=== PATIENT | female | born 1930 | race Caucasian/White ===

== ENCOUNTER → 2017-05-15 | Outpatient (CLI) | payer MEDICARE, BC ==
[2017-05-15 10:41] LABS: CH 30.2; CHCM 32.8; HCT 36.2 % (34.0-46.0); HGB 12.3 gm/dL (11.4-16.0); MCH 31.4 pg (25.0-35.0); MCV 92.3 fL (80.0-100.0); RBC 3.93 m/uL (3.80-5.40); RDW 13.3 % (11.5-15.5); WBC 10.3 k/uL (3.8-10.6)
[2017-05-15 10:52] LABS: Calcium 8.8 mg/dL (8.4-10.2); Phosphorous 3.9 mg/dL (2.5-4.5); Total Bilirubin 1.1 mg/dL (0.2-1.3)
== END | disposition home or self-care (01) ==
LOC: LABWHC1 08:49
PROVIDERS: ATTEND Internal Medicine Nephrology
DX: N17.9 Acute kidney failure, unspecified (principal)
CPT/HCPCS: 36415; 80053; 84100; 85027

== ENCOUNTER 2017-05-25 14:43 | Emergency (ER) | payer MEDICARE, BC ==
[2017-05-25] MEDS ORDERED: SODIUM CHLORIDE 0.9% 500 ML IV ONE (15:17)
[2017-05-25] MEDS ORDERED: MORPHINE SULFATE 10 MG/ML SYRINGE IV ONE (15:17)
--- NOTE | 2017-05-25 15:30 | ED ---
Back Pain HPI - General Chief Complaint: Back Pain/Injury Stated Complaint: Abd pain Time Seen by Provider: 05/25/17 14:57 Source: patient Mode of arrival: wheelchair Limitations: no limitations - History of Present Illness Initial Comments: Patient is an 87-year-old female presents with a chief complaint of left-sided back pain. Patient presents with her daughter who is her primary paranormal investigator currently. States that she recently got out of [facility] where she was for 3 weeks with renal failure. Patient states that the pain has been getting worse over the last 2 days, and that now she is having trouble walking. She says the pain is aggravated by standing and bending, twisting, or walking. Her pain is relieved with rest. Patient's family are concerned for kidney infection as this was a presenting symptom the last time she was admitted to the hospital. The patient lives with her daughter who takes care of her full-time. MD Complaint: back pain Onset/Timin -: days(s) Similar Symptoms Previously: Yes Place: home Radiation: none Severity: moderate Quality: aching Consistency: constant Improves With: immobilization Worsens With: movement, walking Context: unknown Associated Symptoms: denies other symptoms Treatments Prior to Arrival: cold therapy, heat therapy, acetaminophen - Related Data Home Medications Medication Instructions Recorded Confirmed Metoprolol Tartrate [Lopressor] 100 mg PO BID 12/18/15 05/25/17 amLODIPine BESYLATE/BENAZEPRIL 1 cap PO DAILY 12/18/15 05/25/17 [amLODIPine BESYLATE/BENAZEPRIL 5-20 mg] metFORMIN HCL [Glucophage] 500 mg PO BID 12/18/15 05/25/17 sitaGLIPtin PHOSPHATE [Januvia] 100 mg PO DAILY 12/18/15 05/25/17 Menthol [Icy Hot] 1 patch TRANSDERM DAILY PRN 05/25/17 05/25/17 Tylenol 325mg Capsule 325 mg PO Q6H PRN 05/25/17 05/25/17 Allergies Allergy/AdvReac Type Severity Reaction Status Date / Time naproxen sodium [From Aleve] Allergy Itching,bessie Verified 05/25/17 15:54 h Review of Systems ROS Statement: Those systems with pertinent positive or pertinent negative responses have been documented in the HPI. ROS Other: All systems not noted in ROS Statement are negative. Musculoskeletal: Reports: back pain Past Medical History Past Medical History: CVA/TIA, Diabetes Mellitus, Hyperlipidemia, Hypertension History of Any Multi-Drug Resistant Organisms: None Reported Past Surgical History: Appendectomy, Back Surgery, Cholecystectomy Additional Past Surgical History / Comment(s): neck surgery Past Psychological History: Depression Smoking Status: Former smoker Past Alcohol Use History: None Reported Past Drug Use History: None Reported General Exam Limitations: no limitations General appearance: alert, in no apparent distress Head exam: Present: atraumatic, normocephalic Eye exam: Present: normal appearance ENT exam: Present: mucous membranes moist Neck exam: Present: normal inspection Respiratory exam: Present: decreased breath sounds (Patient has decreased breath sounds bilaterally) Cardiovascular Exam: Present: regular rate, normal rhythm GI/Abdominal exam: Present: soft Rectal exam: Present: deferred Extremities exam: Present: normal inspection (There are no asymmetries noted in the patient's lower extremities) Back exam: Present: tenderness, paraspinal tenderness, other (Patient has tenderness to palpation of the musculature to the left of her spine. She does not have significant tenderness to percussion of the flank. There is no midline spinal tenderness.) Neurological exam: Present: alert, oriented X3 Psychiatric exam: Present: normal affect, normal mood Skin exam: Present: warm, dry, intact Course Vital Signs 05/25/17 05/25/17 05/25/17 14:45 15:49 16:48 Temperature 98.7 F 100.2 F H 100.6 F H Pulse Rate 81 76 75 Respiratory 16 19 18 Rate Blood Pressure 145/89 171/70 166/70 O2 Sat by Pulse 94 L 93 L 93 L Oximetry Medical Decision Making - Medical Decision Making 3:31 PM patient with a significant medical history of chronic renal failure, recently discharged from [facility], presents with a chief complaint of left-sided back pain for 3 days. On initial presentation, vital signs are stable. Patient is in no acute distress. Examination of patient is suggestive of musculoskeletal type pain however given patient's recent history I will attempt to obtain her most recent labs from her last hospital, I will send basic blood work, and get a urinalysis. We'll decide on the need for further imaging pending results of lab and urine. 5:57 PM Lab evaluation of this patient is grossly unremarkable. Creatinine has improved to 1.03 from 1.75. Electrolytes appear to be within normal limits. Urinalysis is showing mild evidence of a urinary tract infection and given the patient's symptoms the patient will be treated with Macrobid on an outpatient basis. Old CAT scan results were reviewed from [facility]. CAT scan obtained at that time was showing evidence of left-sided colitis. Given the location of the patient's pain, and recent hospitalization, the patient will go for CT renal stone today. Results of the CT show mild bladder wall thickening, and mild dilation of the common bile duct along with evidence of old cholecystectomy. Given the findings of the CAT scan, we will proceed with treatment of the urinary tract infection. I discussed the bile duct findings with the patient and her daughter. Patient states she is not having any right upper quadrant pain and that her bowel movements have been normal. Shared decision-making was used to decide the patient will go home with explicit instructions to return to the emergency department the patient develops worsening fever, right upper quadrant pain, nausea, vomiting, diarrhea, or any other symptoms. The patient is instructed further to follow-up with primary care for which they have an appointment already set on . - Lab Data Result diagrams: 05/25/17 15:24 05/25/17 15:24 Lab Results 05/25/17 05/25/17 05/25/17 Range/Units 15:24 15:24 15:28 WBC 7.6 (3.8-10.6) k/uL RBC 4.12 (3.80-5.40) m/uL Hgb 12.9 (11.4-16.0) gm/dL Hct 35.5 (34.0-46.0) % MCV 86.3 D (80.0-100.0) fL MCH 31.4 (25.0-35.0) pg MCHC 36.4 (31.0-37.0) g/dL RDW 13.5 (11.5-15.5) % Plt Count 345 (150-450) k/uL Neutrophils % 61 % Lymphocytes % 27 % Monocytes % 6 % Eosinophils % 4 % Basophils % 1 % Neutrophils # 4.6 (1.3-7.7) k/uL Lymphocytes # 2.1 (1.0-4.8) k/uL Monocytes # 0.4 (0-1.0) k/uL Eosinophils # 0.3 (0-0.7) k/uL Basophils # 0.0 (0-0.2) k/uL Sodium 142 (137-145) mmol/L Potassium 3.4 L (3.5-5.1) mmol/L Chloride 106 (98-107) mmol/L Carbon Dioxide 23 (22-30) mmol/L Anion Gap 13 mmol/L BUN 19 H (7-17) mg/dL Creatinine 1.03 (0.52-1.04) mg/dL Est GFR (MDRD) Af Amer >60 (>60 ml/min/1.73 sqM) Est GFR (MDRD) Non-Af 51 (>60 ml/min/1.73 sqM) Glucose 190 H (74-99) mg/dL Calcium 9.1 (8.4-10.2) mg/dL Urine Color Yellow Urine Appearance Cloudy H (Clear) Urine pH 5.5 (5.0-8.0) Ur Specific [place] 1.016 (1.001-1.035) Urine Protein 1+ H (Negative) Urine Glucose (UA) Negative (Negative) Urine Ketones Negative (Negative) Urine Blood Negative (Negative) Urine Nitrite Negative (Negative) Urine Bilirubin Negative (Negative) Urine Urobilinogen <2.0 (<2.0) mg/dL Ur Leukocyte Esterase Large H (Negative) Urine RBC 3 (0-5) /hpf Urine WBC 12 H (0-5) /hpf Ur Squamous Epith Cells 6 H (0-4) /hpf Urine Bacteria Rare H (None) /hpf Hyaline Casts 8 H (0-2) /lpf Urine Mucus Rare H (None) /hpf Disposition Clinical Impression: Low back pain, Urinary tract infection, Common bile duct dilation Disposition: HOME SELF-CARE Condition: Good Instructions: Acute Low Back Pain (ED), Urinary Tract Infection in Women (ED) Referrals: Yee Sales MD [Primary Care Provider] - 1-2 days
[2017-05-25 15:37] LABS: Basophils % (A) 1 %; CH 30.4; CHCM 35.4; Eosinophils # (A) 0.3 k/uL (0-0.7); Eosinophils % (A) 4 %; HCT 35.5 % (34.0-46.0); HDW 2.93; HGB 12.9 gm/dL (11.4-16.0); Luc % (Auto) 3; Lymphocytes # (A) 2.1 k/uL (1.0-4.8); Lymphocytes % (A) 27 %; MCH 31.4 pg (25.0-35.0); MCHC 36.4 g/dL (31.0-37.0); Mean Platelet Volume 6.7; Monocytes # (A) 0.4 k/uL (0-1.0); Monocytes % (A) 6 %; Neutrophils # (A) 4.6 k/uL (1.3-7.7); Neutrophils % (A) 61 %; RBC 4.12 m/uL (3.80-5.40); RDW 13.5 % (11.5-15.5); WBC 7.6 k/uL (3.8-10.6); WBC (Perox) 7.01
[2017-05-25 15:39] LABS: Appearance,Urine Cloudy (Clear); Bacteria,Urine Rare /hpf; Bilirubin,Urine Negative (Negative); Glucose,Urine (UA) Negative (Negative); Ketones,Urine Negative (Negative); Leukocyte Esterase,Urine Large (Negative); Mucus,Urine Rare /hpf; Nitrite,Urine Negative (Negative); PH, Urine 5.5 (5.0-8.0); Particle Count 10988; Protein,Urine 1+ (Negative); RBC,Urine 3 /hpf (0-5); Specific Gravity,Urine 1.016 (1.001-1.035); Squamous Epithelial Cell,Urine 6 /hpf (0-4); UA Billing (MACRO vs. MICRO) MICRO; Urobilinogen,Urine <2.0 mg/dL (<2.0); WBC,Urine 12 /hpf (0-5)
[2017-05-25 15:42] LABS: MCV 86.3 fL (80.0-100.0)
[2017-05-25 15:52] LABS: Anion Gap 13 mmol/L; Blood Urea Nitrogen 19 mg/dL (7-17); Calcium 9.1 mg/dL (8.4-10.2); Carbon Dioxide 23 mmol/L (22-30); Chloride 106 mmol/L (98-107); Glucose 190 mg/dL (74-99); Non-African American GFR(MDRD) 51 (>60 ml/min/1.73 sqM); Potassium 3.4 mmol/L (3.5-5.1); Sodium 142 mmol/L (137-145)
[2017-05-25 16:49] VITALS: PULSE 75; RESP 18
--- NOTE | 2017-05-25 17:39 | CT ---
EXAMINATION TYPE: CT renal stones wo con DATE OF EXAM: 05/25/2017 HISTORY: Patient complains of recent kidney infections. CT DLP: 728.7 mGycm. Automated Exposure Control for Dose Reduction was Utilized. TECHNIQUE: CT scan of the abdomen and pelvis is performed without oral or IV contrast. COMPARISON: NONE FINDINGS: Within the limitations of a non-contrast study, the following observations are made. LUNG BASES: Minimal dependent atelectatic changes are present bilaterally, coronary artery calcificat ion noted LIVER/GB: Gallbladder is absent. Some prominence of the biliary ducts likely due to postcholecystecto my change. At the level of the distal common bile duct there is a focus of increased density on axial image 59 the level of the pancreatic head measuring approximately 7 to 8 mm. Difficult to exclude ch oledocholithiasis. There are dense aortic calcifications, mesenteric calcifications present. PANCREAS: Findings in the distal common bile duct as described above. SPLEEN: No significant abnormality is seen. ADRENALS: No significant abnormality is seen. KIDNEYS: No significant abnormality is seen. BOWEL: Extensive diverticular change present within the colon. No evident appendicitis. Suspect there may be a sizable duodenal diverticulum at the second portion of the duodenum. GENITAL ORGANS: No gross abnormality seen. Urinary bladder shows a thickened wall. LYMPH NODES: No greater than 1cm abdominal or pelvic lymph nodes are appreciated. OSSEOUS STRUCTURES: Scoliosis present in the spine, degenerative disc changes are marked at the infer ior lumbar spine, spacing device present at L4-5. OTHER: Anterior abdominal wall shows some increased attenuation foci which may be due to injections, no focal abscess IMPRESSION: No renal stones or hydronephrosis is seen bilaterally. IMPRESSION: Findings suspicious for choledocholithiasis, consider gastroenterology consult. Noncontra st exam. Diverticulosis. Correlate for possible cystitis. Additional findings above.
[2017-05-25 18:30] VITALS: BP 174/73; TEMP 100.1
== END 2017-05-25 18:40 | disposition home or self-care (01) ==
LOC: EC 14:43
DX: N39.0 Urinary tract infection, site not specified (principal); K83.8 Other specified diseases of biliary tract; M54.5 Low back pain; R06.89 Other abnormalities of breathing; I10 Essential (primary) hypertension; E11.9 Type 2 diabetes mellitus without complications; Z87.891 Personal history of nicotine dependence; Z79.84 Long term (current) use of oral hypoglycemic drugs; Z79.899 Other long term (current) drug therapy; Z88.6 Allergy status to analgesic agent; Z90.49 Acquired absence of other specified parts of digestive tract; Z98.890 Other specified postprocedural states
CPT/HCPCS: 36415; 80048; 85025; 81001; 87086; 74150; 99284; 96374; 96361 ×3; J2270

== ENCOUNTER 2017-11-17 19:25 | Inpatient (IN) | payer MEDICARE, BC ==
[2017-11-17] MEDS ORDERED: ACETAMINOPHEN TAB 500 MG TAB PO STA (19:59)
--- NOTE | 2017-11-17 20:03 | ED ---
General Adult HPI - General Chief complaint: Chest Pain Stated complaint: Chest Pain Time Seen by Provider: 11/17/17 19:56 Source: patient, family, RN notes reviewed Mode of arrival: wheelchair Limitations: no limitations - History of Present Illness Initial comments: Patient is a pleasant 87-year-old female presenting to the emergency department with chest discomfort. Onset of symptoms was a couple of hours ago. Discomfort is left sided. Patient feels like her lungs hurt her there something in there. Family is concerned regarding the heart. There is some radiation towards the back. Patient has fatigue and chills. They're unaware of fever. Patient has had mild cough and rhinorrhea recently. Rhinorrhea has been clear. - Related Data Home Medications Medication Instructions Recorded Confirmed metFORMIN HCL [Glucophage] 500 mg PO BID 12/18/15 11/17/17 sitaGLIPtin PHOSPHATE [Januvia] 100 mg PO DAILY 12/18/15 11/17/17 Menthol [Icy Hot] 1 patch TRANSDERM DAILY PRN 05/25/17 11/17/17 Atorvastatin [Lipitor] 10 mg PO DAILY 11/17/17 11/17/17 Furosemide [Lasix] 20 mg PO DAILY 11/17/17 11/17/17 Loperamide [Imodium] 4 mg PO QID PRN 11/17/17 11/17/17 Potassium Chloride ER [K-Dur 10] 10 meq PO DAILY 11/17/17 11/17/17 amLODIPine [Norvasc] 10 mg PO DAILY 11/17/17 11/17/17 hydrALAZINE HCL [Apresoline] 50 mg PO DAILY 11/17/17 11/17/17 Allergies Allergy/AdvReac Type Severity Reaction Status Date / Time acetaminophen [From [place]] Allergy Rash/Hives Verified 11/17/17 20:07 hydrocodone [From [place]] Allergy Rash/Hives Verified 11/17/17 20:07 naproxen sodium [From Aleve] Allergy Itching,bessie Verified 11/17/17 20:07 h Review of Systems ROS Statement: Those systems with pertinent positive or pertinent negative responses have been documented in the HPI. ROS Other: All systems not noted in ROS Statement are negative. Constitutional: Reports: chills Eyes: Denies: eye pain ENT: Denies: ear pain Respiratory: Reports: cough Cardiovascular: Reports: chest pain Endocrine: Reports: fatigue Gastrointestinal: Denies: abdominal pain Genitourinary: Denies: dysuria Musculoskeletal: Denies: arthralgia Skin: Denies: rash Neurological: Denies: confusion Past Medical History Past Medical History: CVA/TIA, Diabetes Mellitus, Hyperlipidemia, Hypertension History of Any Multi-Drug Resistant Organisms: None Reported Past Surgical History: Appendectomy, Back Surgery, Cholecystectomy Additional Past Surgical History / Comment(s): neck surgery Past Psychological History: Depression Smoking Status: Former smoker Past Alcohol Use History: None Reported Past Drug Use History: None Reported General Exam Limitations: no limitations General appearance: alert, in no apparent distress Head exam: Present: atraumatic Eye exam: Present: normal appearance, PERRL ENT exam: Present: normal oropharynx Neck exam: Present: normal inspection Respiratory exam: Present: rhonchi Cardiovascular Exam: Present: regular rate, normal rhythm GI/Abdominal exam: Present: soft. Absent: tenderness Extremities exam: Present: normal inspection. Absent: pedal edema, calf tenderness Neurological exam: Present: alert Psychiatric exam: Present: normal affect, normal mood Skin exam: Present: normal color Course Vital Signs 11/17/17 19:26 Temperature 100.9 F H Pulse Rate 74 Respiratory 20 Rate Blood Pressure 190/89 O2 Sat by Pulse 94 L Oximetry EKG Findings - EKG Comments: EKG Findings:: Normal sinus rhythm 63. DE 178. QRS 88. QT 398. QTC 407. Left axis. Septal Q waves. Lateral ST depression. Lateral T wave inversion. Medical Decision Making - Medical Decision Making Patient reexamined and resting comfortably in bed. Patient is somewhat improved. Patient and family updated on results and plan. Case was discussed in detail with Dr. Brown, who will admit for Dr. Sales. Heparin will be started. Echo will be ordered for concern for fever with elevated cardiac enzymes. - Lab Data Result diagrams: 11/17/17 19:58 11/17/17 19:58 Lab Results 11/17/17 11/17/17 11/17/17 Range/Units 19:58 19:58 19:58 WBC 9.0 (3.8-10.6) k/uL RBC 4.50 (3.80-5.40) m/uL Hgb 13.9 (11.4-16.0) gm/dL Hct 41.7 (34.0-46.0) % MCV 92.7 (80.0-100.0) fL MCH 30.9 (25.0-35.0) pg MCHC 33.3 (31.0-37.0) g/dL RDW 13.1 (11.5-15.5) % Plt Count 293 (150-450) k/uL Neutrophils % 65 % Lymphocytes % 26 % Monocytes % 6 % Eosinophils % 1 % Basophils % 1 % Neutrophils # 5.9 (1.3-7.7) k/uL Lymphocytes # 2.3 (1.0-4.8) k/uL Monocytes # 0.5 (0-1.0) k/uL Eosinophils # 0.1 (0-0.7) k/uL Basophils # 0.1 (0-0.2) k/uL PT (9.0-12.0) sec INR (<1.2) APTT (22.0-30.0) sec Sodium 135 L (137-145) mmol/L Potassium 4.4 (3.5-5.1) mmol/L Chloride 99 (98-107) mmol/L Carbon Dioxide 26 (22-30) mmol/L Anion Gap 10 mmol/L BUN 20 H (7-17) mg/dL Creatinine 0.80 (0.52-1.04) mg/dL Est GFR (MDRD) Af Amer >60 (>60 ml/min/1.73 sqM) Est GFR (MDRD) Non-Af >60 (>60 ml/min/1.73 sqM) Glucose 336 H (74-99) mg/dL Plasma Lactic Acid Maximus (0.7-2.0) mmol/L Calcium 9.7 (8.4-10.2) mg/dL Total Bilirubin 1.2 (0.2-1.3) mg/dL AST 23 (14-36) U/L ALT 31 (9-52) U/L Alkaline Phosphatase 102 (38-126) U/L Total Creatine Kinase 79 (30-135) U/L CK-MB (CK-2) 1.9 (0.0-2.4) ng/mL CK-MB (CK-2) Rel Index 2.4 Troponin I 1.960 H* (0.000-0.034) ng/mL Total Protein 5.9 L (6.3-8.2) g/dL Albumin 3.5 (3.5-5.0) g/dL Influenza Type A RNA (Not Detectd) Influenza Type B (PCR) (Not Detectd) 11/17/17 11/17/17 11/17/17 Range/Units 19:58 19:58 20:14 WBC (3.8-10.6) k/uL RBC (3.80-5.40) m/uL Hgb (11.4-16.0) gm/dL Hct (34.0-46.0) % MCV (80.0-100.0) fL MCH (25.0-35.0) pg MCHC (31.0-37.0) g/dL RDW (11.5-15.5) % Plt Count (150-450) k/uL Neutrophils % % Lymphocytes % % Monocytes % % Eosinophils % % Basophils % % Neutrophils # (1.3-7.7) k/uL Lymphocytes # (1.0-4.8) k/uL Monocytes # (0-1.0) k/uL Eosinophils # (0-0.7) k/uL Basophils # (0-0.2) k/uL PT 10.6 (9.0-12.0) sec INR 1.1 (<1.2) APTT 23.8 (22.0-30.0) sec Sodium (137-145) mmol/L Potassium (3.5-5.1) mmol/L Chloride (98-107) mmol/L Carbon Dioxide (22-30) mmol/L Anion Gap mmol/L BUN (7-17) mg/dL Creatinine (0.52-1.04) mg/dL Est GFR (MDRD) Af Amer (>60 ml/min/1.73 sqM) Est GFR (MDRD) Non-Af (>60 ml/min/1.73 sqM) Glucose (74-99) mg/dL Plasma Lactic Acid Maximus 1.9 (0.7-2.0) mmol/L Calcium (8.4-10.2) mg/dL Total Bilirubin (0.2-1.3) mg/dL AST (14-36) U/L ALT (9-52) U/L Alkaline Phosphatase (38-126) U/L Total Creatine Kinase (30-135) U/L CK-MB (CK-2) (0.0-2.4) ng/mL CK-MB (CK-2) Rel Index Troponin I (0.000-0.034) ng/mL Total Protein (6.3-8.2) g/dL Albumin (3.5-5.0) g/dL Influenza Type A RNA Not Detected (Not Detectd) Influenza Type B (PCR) Not Detected (Not Detectd) - Radiology Data Radiology results: image reviewed (Chest x-ray shows clearing of previous pulmonary congestion and effusion. Atheromatous aorta.) Critical Care Time Critical Care Time: Yes Total Critical Care Time: 31 Disposition Clinical Impression: NSTEMI (non-ST elevated myocardial infarction) Disposition: ADMITTED IP TO THIS HOSP Referrals: Yee Sales MD [Primary Care Provider] - 1-2 days Decision Time: 20:55
[2017-11-17 20:13] LABS: Basophils # (A) 0.1 k/uL (0-0.2); Basophils % (A) 1 %; Eosinophils # (A) 0.1 k/uL (0-0.7); Eosinophils % (A) 1 %; HCT 41.7 % (34.0-46.0); HGB 13.9 gm/dL (11.4-16.0); Lymphocytes # (A) 2.3 k/uL (1.0-4.8); Lymphocytes % (A) 26 %; MCH 30.9 pg (25.0-35.0); MCHC 33.3 g/dL (31.0-37.0); MCV 92.7 fL (80.0-100.0); Mean Platelet Volume 6.7; Monocytes # (A) 0.5 k/uL (0-1.0); Monocytes % (A) 6 %; Neutrophils # (A) 5.9 k/uL (1.3-7.7); Neutrophils % (A) 65 %; Platelet Count 293 k/uL (150-450); RDW 13.1 % (11.5-15.5)
[2017-11-17 20:21] LABS: ALT 31 U/L (9-52); AST 23 U/L (14-36); Albumin 3.5 g/dL (3.5-5.0); Alkaline Phosphatase 102 U/L (38-126); Anion Gap 10 mmol/L; Blood Urea Nitrogen 20 mg/dL (7-17); Calcium 9.7 mg/dL (8.4-10.2); Carbon Dioxide 26 mmol/L (22-30); Chloride 99 mmol/L (98-107); Glucose 336 mg/dL (74-99); Potassium 4.4 mmol/L (3.5-5.1); Sodium 135 mmol/L (137-145); Total Bilirubin 1.2 mg/dL (0.2-1.3); Total Protein 5.9 g/dL (6.3-8.2)
[2017-11-17 20:25] LABS: INR 1.1 (<1.2); Partial Thromboplastin Time 23.8 sec (22.0-30.0); Prothrombin Time 10.6 sec (9.0-12.0)
--- NOTE | 2017-11-17 20:42 | XR ---
EXAMINATION TYPE: XR chest 2V DATE OF EXAM: 11/17/2017 COMPARISON: NONE HISTORY: Fever TECHNIQUE: Frontal and lateral views of the chest are obtained. FINDINGS: There is no heart failure nor confluent pneumonic infiltrate. Thoracic aorta is atheromato us. There are chest leads. Cervical spine fusion surgery is noted. Bony thorax is intact. There is no sign of pleural effusion. IMPRESSION: Atheromatous aorta. There is clearing of the pulmonary congestion and pleural effusions compared to last exam.
[2017-11-17 20:46] LABS: Creatine Kinase MB 1.9 ng/mL (0.0-2.4)
[2017-11-17 20:49] LABS: Troponin I 1.96 ng/mL (0.000-0.034)
[2017-11-17] MEDS ORDERED: HEPARIN SODIUM,PORCINE 5,000 UNIT/ML 1 ML VIAL IV PRN (20:56)
[2017-11-17] MEDS ORDERED: HEPARIN SODIUM,PORCINE 5,000 UNIT/ML 1 ML VIAL IV ONE (20:56)
[2017-11-17] MEDS ORDERED: NITROGLYCERIN SL TABS 0.4 MG TAB SUBLINGUAL PRN (20:56)
[2017-11-17] MEDS ORDERED: ASPIRIN 81 MG PO STA (20:56)
[2017-11-17] MEDS: HEPARIN SOD,PORK IN 0.45% NACL 25,000 UNIT in 0.45% NACL 1 500ML.BAG IV SCH (21:20)
[2017-11-18] MEDS: NITROGLYCERIN OINT 1 INCH/GM PACKET TOPICAL SCH ×2 (00:25→06:10)
[2017-11-18 02:31] LABS: Troponin I 2.42 ng/mL (0.000-0.034)
[2017-11-18 04:55] LABS: Platelet Count 274 k/uL (150-450)
[2017-11-18 05:16] LABS: Cholesterol 128 mg/dL (<200); HDL Cholesterol 37 mg/dL (40-60); LDL Cholesterol,Calculated 41 mg/dL (0-99); Triglycerides 249 mg/dL (<150)
[2017-11-18] MEDS ORDERED: SODIUM CHLORIDE 0.9% 1,000 ML in EMPTY BAG 1 BAG IV ONE (08:51)
[2017-11-18] MEDS ORDERED: ALPRAZolam 0.5 MG TAB PO PRN (08:51)
[2017-11-18] MEDS ORDERED: ALPRAZolam 0.25 MG TAB PO PRN (08:51)
[2017-11-18] MEDS ORDERED: ASPIRIN 325 MG TAB PO STA (08:51)
[2017-11-18] MEDS ORDERED: NITROGLYCERIN SL TABS 0.4 MG TAB SUBLINGUAL PRN (08:51)
[2017-11-18] MEDS ORDERED: ATORVASTATIN 80 MG TAB PO STA (08:51)
--- NOTE | 2017-11-18 08:54 | P.CRDCN ---
History of Present Illness Consult date: 11/18/17 Requesting physician: Audra Gonzalez Consult reason: non-Q-wave [place] Chief complaint: Chest pain History of present illness: This is a pleasant 87-year-old female with history of hypertension, hyperlipidemia, diabetes, nonsmoker, she presents to the hospital with symptoms of chest pressure with radiation through to her back. Positive associated shortness of breath. Apparently the patient has been having symptoms which she thought was heartburn for the past couple days off and on. Yesterday patient states her chest became very tight and heavy, she felt significant discomfort between her shoulder blades and was quite short of breath. She has a caregiver at the house while her daughter is at work, they contacted the daughter, and she brought the patient into the emergency room for further evaluation. EKG performed on admission here showed a normal sinus rhythm with ST-T wave changes in the lateral leads. Chest x-ray revealed clearing of pulmonary congestion and pleural effusion as compared with prior exam. Blood pressure on admission here 190/80, heart rate in the 70s, temperature 100. The pressure this morning 179/70, heart rate in the 50s and 60s, temperature 99.1, she is 93% on room air. Labratory data was reviewed, CBC is normal, sodium 135, potassium 4.4, BUN 20, creatinine 0.8. Initial troponin on admission 1.9, subsequent troponin 2.4. Cholesterol 128, LDL 41, HDL 37, triglycerides 249. Influenza A and B-. Patient was initiated on IV heparin in the emergency room, she is also on aspirin and Nitropaste. We will give the patient 80 mg of Lipitor now, she's also been initiated on beta giselle, we will start the patient on an CRISTIANO inhibitor as well. We did have a discussion with the daughter and the patient regarding proceeding with any invasive procedures, cardiac catheterization risks and benefits were explained in detail, patient is willing to proceed. Past Medical History Past Medical History: CVA/TIA, Diabetes Mellitus, Hyperlipidemia, Hypertension, Renal Disease Additional Past Medical History / Comment(s): Pt reports that in May of 2017 she was diagnosed with renal failure History of Any Multi-Drug Resistant Organisms: None Reported Past Surgical History: Appendectomy, Back Surgery, Cholecystectomy Additional Past Surgical History / Comment(s): neck surgery. wrist surgery approx 2014 Past Psychological History: Depression Smoking Status: Never smoker Past Alcohol Use History: None Reported Past Drug Use History: None Reported Medications and Allergies Home Medications Medication Instructions Recorded Confirmed Type metFORMIN HCL [Glucophage] 500 mg PO BID 12/18/15 11/17/17 History sitaGLIPtin PHOSPHATE [Januvia] 100 mg PO DAILY 12/18/15 11/17/17 History Menthol [Icy Hot] 1 patch TRANSDERM DAILY PRN 05/25/17 11/17/17 History Atorvastatin [Lipitor] 10 mg PO DAILY 11/17/17 11/17/17 History Furosemide [Lasix] 20 mg PO DAILY 11/17/17 11/17/17 History Loperamide [Imodium] 4 mg PO QID PRN 11/17/17 11/17/17 History Potassium Chloride ER [K-Dur 10] 10 meq PO DAILY 11/17/17 11/17/17 History amLODIPine [Norvasc] 10 mg PO DAILY 11/17/17 11/17/17 History hydrALAZINE HCL [Apresoline] 50 mg PO DAILY 11/17/17 11/17/17 History Allergies Allergy/AdvReac Type Severity Reaction Status Date / Time acetaminophen [From [place]] Allergy Rash/Hives Verified 11/17/17 20:07 hydrocodone [From [place]] Allergy Rash/Hives Verified 11/17/17 20:07 naproxen sodium [From [place]] Allergy Itching,bessie Verified 11/17/17 20:07 h Physical Exam Vitals: Vital Signs Temp Pulse Pulse Resp BP BP Pulse Ox 11/18/17 06:10 60 12 179/73 93 L 11/17/17 22:15 99.1 F 58 L 12 166/69 92 L 11/17/17 21:45 131/60 11/17/17 21:21 100.2 F H 67 18 163/99 98 11/17/17 20:56 96 11/17/17 19:26 100.9 F H 74 20 190/89 94 L Intake and Output 11/17/17 11/18/17 11/18/17 22:59 06:59 14:59 Intake Total 164.033 Output Total 500 Balance -335.967 Intake: Intake, IV Titration 164.033 Amount Heparin Sod,Pork in 0.45% 164.033 NaCl 25,000 unit In 0.45 % NaCl 1 500ml.bag @ 12 UNITS/KG/HR 18.5 mls/hr IV .Q24H [facility] Rx#: [id number] Output: Urine 500 Other: Weight 74.389 kg 79.2 kg PHYSICAL EXAMINATION: HEENT: Head is atraumatic, normocephalic. Pupils equal, round. Neck is supple. There is no elevated jugular venous pressure. HEART EXAMINATION: Heart S1 and S2 systolic murmur is heard. CHEST EXAMINATION: Lungs are clear to auscultation and precussion. No chest wall tenderness is noted on palpation or with deep breathing. ABDOMEN: Soft, nontender. Bowel sounds are heard. No organomegaly noted. EXTREMITIES: 2+ peripheral pulses with no evidence of peripheral edema and no calf tenderness noted. NEUROLOGIC patient is awake, alert and oriented -3. . Results 11/18/17 04:31 11/17/17 19:58 Cardiac Enzymes 11/17/17 11/17/17 11/18/17 Range/Units 19:58 19:58 01:25 AST 23 (14-36) U/L CK-MB (CK-2) 1.9 2.0 (0.0-2.4) ng/mL Troponin I 1.960 H* 2.420 H* (0.000-0.034) ng/mL Coagulation 11/17/17 11/18/17 Range/Units 19:58 04:31 PT 10.6 (9.0-12.0) sec APTT 23.8 37.0 H (22.0-30.0) sec Lipids 11/18/17 Range/Units 04:31 Triglycerides 249 H (<150) mg/dL Cholesterol 128 (<200) mg/dL HDL Cholesterol 37 L (40-60) mg/dL CBC 11/17/17 11/18/17 Range/Units 19:58 04:31 WBC 9.0 (3.8-10.6) k/uL RBC 4.50 (3.80-5.40) m/uL Hgb 13.9 (11.4-16.0) gm/dL Hct 41.7 (34.0-46.0) % Plt Count 293 274 (150-450) k/uL Comprehensive Metabolic Panel 11/17/17 Range/Units 19:58 Sodium 135 L (137-145) mmol/L Potassium 4.4 (3.5-5.1) mmol/L Chloride 99 (98-107) mmol/L Carbon Dioxide 26 (22-30) mmol/L BUN 20 H (7-17) mg/dL Creatinine 0.80 (0.52-1.04) mg/dL Glucose 336 H (74-99) mg/dL Calcium 9.7 (8.4-10.2) mg/dL AST 23 (14-36) U/L ALT 31 (9-52) U/L Alkaline Phosphatase 102 (38-126) U/L Total Protein 5.9 L (6.3-8.2) g/dL Albumin 3.5 (3.5-5.0) g/dL Current Medications Generic Name Dose Route Start Last Admin Trade Name Freq PRN Reason Stop Dose Admin Aspirin 325 mg 11/18/17 09:00 Aspirin PO DAILY [facility] Heparin Sodium (Porcine) 0 unit 11/17/17 20:56 Heparin IV Q6HR PRN Low PTT Protocol Heparin Sodium/Sodium Chloride 500 mls @ 18.5 mls/hr 11/17/17 21:00 11/18/17 06:12 25,000 unit/ Sodium Chloride IV 15 units/kg/hr .Q24H [facility] 23.13 mls/hr Protocol Titration 12 UNITS/KG/HR Metoprolol Succinate 25 mg 11/18/17 09:00 Toprol Xl PO DAILY [facility] Nitroglycerin 1 inch 11/18/17 00:00 11/18/17 06:10 Nitro-Bid Oint TOPICAL 1 inch Q6HR [facility] Administration Nitroglycerin 0.4 mg 11/17/17 20:56 11/17/17 21:13 Nitrostat SUBLINGUAL 0.4 mg Q5M PRN Administration Chest Pain Intake and Output 11/17/17 11/18/17 11/18/17 22:59 06:59 14:59 Intake Total 164.033 Output Total 500 Balance -335.967 Intake: Intake, IV Titration 164.033 Amount Heparin Sod,Pork in 0.45% 164.033 NaCl 25,000 unit In 0.45 % NaCl 1 500ml.bag @ 12 UNITS/KG/HR 18.5 mls/hr IV .Q24H [facility] Rx#: [id number] Output: Urine 500 Other: Weight 74.389 kg 79.2 kg 11/18/17 04:31 11/17/17 19:58 EKG Interpretations (text) EKG shows a normal sinus rhythm with ST-T wave changes in the lateral leads. Assessment and Plan Plan: Assessment and plan #1 non-ST elevation myocardial infarction #2 diabetes #3 hypertension #4 hyperlipidemia Plan We will obtain a stat echocardiogram with Doppler study. We will give the patient 80 mg of Lipitor now, aspirin, Toprol-XL, had an CRISTIANO inhibitor to her medication regime. Patient has been advised to undergo cardiac catheterization , the risks and the benefits were explained to the patient and her daughter in detail and she is willing to proceed. This will be performed urgently by Dr. Jo. Further recommendations will be based on these findings and the patient' s clinical course. DNP note has been reviewed, I agree with a documented findings and plan of care. Patient was seen and examined.
[2017-11-18] MEDS: METOPROLOL SUCCINATE (ER) 25 MG TAB.ER.24H PO SCH (09:00)
[2017-11-18] MEDS: ASPIRIN 325 MG TAB PO SCH (09:04)
[2017-11-18] MEDS ORDERED: MIDAZOLAM 2 MG/2 ML VIAL ONE (09:04)
[2017-11-18] MEDS ORDERED: LIDOCAINE 2% INJ 20 MG/ML (20 ML MDV) ONE (09:04)
[2017-11-18] MEDS ORDERED: diphenhydrAMINE 50 MG/ML 1 ML VIAL ONE (09:05)
[2017-11-18] MEDS ORDERED: VERAPAMIL 2.5 MG/ML 2 ML AMP ONE (09:05)
[2017-11-18] MEDS ORDERED: HEPARIN SODIUM 1,000 UN/ML (10ML VL) ONE (09:05)
[2017-11-18] MEDS ORDERED: IV FLUID CONTINUATION 1,000 ML IV ONE (09:27)
[2017-11-18] MEDS: MIDAZOLAM 2 MG/2 ML VIAL IV ONE ×2 (09:29→09:42)
[2017-11-18 09:30] LABS: Creatine Kinase MB 1.9 ng/mL (0.0-2.4)
[2017-11-18 09:31] LABS: Appearance,Urine Turbid (Clear); Bilirubin,Urine Negative (Negative); Blood,Urine Small (Negative); Color,Urine Yellow; Glucose,Urine (UA) Negative (Negative); Ketones,Urine Negative (Negative); Leukocyte Esterase,Urine Large (Negative); Nitrite,Urine Negative (Negative); PH, Urine 5.5 (5.0-8.0); Protein,Urine 1+ (Negative); Specific Gravity,Urine 1.012 (1.001-1.035); Urobilinogen,Urine <2.0 mg/dL (<2.0)
[2017-11-18 09:32] LABS: Bacteria,Urine Many /hpf; RBC,Urine 23 /hpf (0-5); Squamous Epithelial Cell,Urine 3 /hpf (0-4); WBC,Urine >182 /hpf (0-5)
[2017-11-18 09:34] LABS: Troponin I 2.65 ng/mL (0.000-0.034)
[2017-11-18] MEDS ORDERED: LIDOCAINE 2% INJ 20 MG/ML SQ ONE (09:35)
[2017-11-18] MEDS: VERAPAMIL SYRINGE (5 MG/10 ML) INTRAARTER ONE ×2 (09:37→09:49)
[2017-11-18] MEDS ORDERED: IOHEXOL 350 MG/ML 125ML BOTTLE INJ ONE (09:49)
[2017-11-18] MEDS ORDERED: RX INFO: IV CONTRAST WAS GIVEN 1 EACH MISC MISCELLANE PRN (09:55)
[2017-11-18] MEDS ORDERED: SODIUM CHLORIDE 0.9% 1,000 ML IV SCH (10:00)
--- NOTE | 2017-11-18 10:30 | CC ---
CARDIAC CATHETERIZATION REPORT DATE OF SERVICE: 11/18/2017 PERFORMING PHYSICIAN: Dean Otto MD, [employer]. PROCEDURE PERFORMED: Selective right and left coronary angiogram. INDICATION: This is a pleasant 87-year-old female patient who presented to the hospital with chest discomfort and ruled in for acute non-ST elevation myocardial infarction. A heart catheterization was recommended in view of the ongoing chest discomfort as well as abnormal EKG consistent with ischemic changes in the lateral lead as well as abnormal cardiac enzymes. APPROACH: Right radial artery. COMPLICATION: None. LEVEL OF SEDATION: Moderate with sedation length of 15 minutes. PROCEDURE DESCRIPTION: After obtaining an informed consent, the patient was brought to cardiac laborer filter plant. The right radial artery was cannulated using micropuncture technique, the micropuncture wire passed easily then I placed a 6-[place] sheath in the right radial artery. After that, I did selective right and left coronary angiogram using JR4 and JL3.5 catheters. After that, the procedure was completed without any complication. SELECTIVE CORONARY ANGIOGRAM: 1. The right coronary artery is a large caliber vessel and it is a dominant vessel. The proximal RCA has mild disease only. The mid RCA has mild disease only as well and RCA distally appears to be angiographically normal and bifurcates into PDA and PLV branches. The PLV branch has mild disease only and the PDA branch has ostial disease appeared to be in the range of 70%. 2. The left main is a medium size left main with mid shaft plaque appeared to be in the range of 30%. The left main bifurcates into the left circumflex and left anterior descending artery. 3. The left circumflex is a medium caliber vessel. The proximal left circumflex appeared to have mild disease only. The mid left circumflex by bifurcation of the first OM appeared to have lesion in the range of 70%. The left circumflex distally appeared to have mild disease only. 4. The left anterior descending artery, the proximal LAD is tortuous, but appeared to have mild disease only. It gives rise into the first diagonal branch, which is a medium caliber vessel with severe disease in the proximal portion. The mid LAD appeared to have a long tubular lesion in the range of 70% to 80%, but the LAD is only a small to medium caliber vessel and it is about 2 mm only. The LAD distally appeared to be angiographically normal. CONCLUSION: 1. Heavily calcified right and left coronary system. 2. Severe disease involving the PDA branch of the RCA by the ostium, but the PDA is a small caliber vessel. 3. Midshaft left main disease appeared to be in the range of 30%. 4. Severe disease involving the mid left circumflex, but the left circumflex is a small to medium caliber vessel. 5. Severe disease involving the mid LAD but the LAD is also a small to medium caliber vessel. POSTPROCEDURE MANAGEMENT: I would consider maximize medical treatment at this point of time. If the patient continues to have chest discomfort, I will consider proceeding with PCI of the LAD from right groin approach. MMODL / IJN: [id number] /
--- NOTE | 2017-11-18 10:36 | LTR ---
November 18, 2017 Re: Tracy Mcclain Dear Dr. Sales: Ms. Tracy Mcclain presented to [facility] with chest discomfort and ruled in for acute non ST . She underwent heart catheterization and that revealed critical disease involving a small to medium caliber LAD. Also she does have disease involving the left main coronary artery. I would consider to maximize medical treatment at this point of time. If the patient continues to have chest discomfort in spite of that, I will consider doing a PCI of the LAD. I want to thank you for allowing me to participate in her care and please do not hesitate to call if you have any question or concern. Sincerely, MD ZION Arciniega / ELIZABETHN: [id number] /
[2017-11-18] MEDS: ISOSORBIDE MONONITRATE ER 30 MG TAB.ER.24H PO SCH (11:17)
[2017-11-18] MEDS: LISINOPRIL 5 MG TAB PO SCH (11:17)
[2017-11-18 12:38] LABS: Glucose,Whole Blood 304 mg/dL (75-99)
[2017-11-18] MEDS: INSULIN ASPART 100 UNIT/ML 1 ML 10 ML VIAL SQ SCH ×3 (12:52→20:25)
--- NOTE | 2017-11-18 16:25 | P.HPIM ---
History of Present Illness H&P Date: 11/18/17 Chief Complaint: Chest pain This is 87 years old female with history of hypertension, hyperlipidemia, type 2 diabetes coming in with substernal chest pain radiating to her back associated with shortness of breath. She endorses heartburn for the past few days. She lives with a caregiver and her daughter who daughter to the emergency room. EKG done in the ER suggestive of significant ST-T wave changes in the lateral leads concerning for an GA. Chest x-ray suggested some pulmonary congestion and pleural effusion. Vitals in the ER includes a blood pressure 190/ 80, heart rate 73. Labs done the ER suggestive of unremarkable CBC and BMP. Initial troponin was 1.9 that increased to 2.4. Patient was initiated on IV heparin and was given a dose of aspirin and nitroglycerin state. She was taken for cardiac catheter this morning and was found to have critical disease involving small to medium caliber LAD with some disease involving the left main coronary artery. Patient to continue on medical treatment overnight. If chest pain persists,will proceed with PCI of the LAD Review of Systems Constitutional: Reports fatigue, Reports sweats, Denies chills, Denies fever, Denies poor appetite Eyes: denies blurred vision, denies diplopia Ears, nose, mouth and throat: Denies dysphagia, Denies headache, Denies odynophagia, Denies sinus pressure, Denies sore throat Cardiovascular: Reports chest pain, Reports decreased exercise tolerance, Reports edema, Reports high blood pressure, Denies irregular heart beat, Denies lightheadedness, Denies orthopnea Respiratory: Denies congestion, Denies cough, Denies home oxygen, Denies sleep apnea, Denies wheezing Gastrointestinal: Denies abdominal pain, Denies bloating, Denies change in bowel habits, Denies coffee ground emesis, Denies nausea, Denies vomiting Genitourinary: Denies dysuria, Denies incomplete emptying, Denies urinary frequency Musculoskeletal: Denies arm numbness/tingling, Denies muscle cramps, Denies neck stiffness Integumentary: Denies change in hair/nails, Denies rash, Denies sores Neurological: Denies aphasia, Denies paralysis, Denies paresthesias, Denies seizures, Denies vertigo Psychiatric: Denies anxiety attacks, Denies depression Endocrine: Denies cold intolerance, Denies fatigue, Denies low blood sugars Past Medical History Past Medical History: CVA/TIA, Diabetes Mellitus, Hyperlipidemia, Hypertension, Renal Disease Additional Past Medical History / Comment(s): Pt reports that in May of 2017 she was diagnosed with renal failure History of Any Multi-Drug Resistant Organisms: None Reported Past Surgical History: Appendectomy, Back Surgery, Cholecystectomy Additional Past Surgical History / Comment(s): neck surgery. wrist surgery approx 2014 Past Psychological History: Depression Smoking Status: Never smoker Past Alcohol Use History: None Reported Past Drug Use History: None Reported Medications and Allergies Home Medications Medication Instructions Recorded Confirmed Type metFORMIN HCL [Glucophage] 500 mg PO BID 12/18/15 11/17/17 History sitaGLIPtin PHOSPHATE [Januvia] 100 mg PO DAILY 12/18/15 11/17/17 History Menthol [Icy Hot] 1 patch TRANSDERM DAILY PRN 05/25/17 11/17/17 History Atorvastatin [Lipitor] 10 mg PO DAILY 11/17/17 11/17/17 History Furosemide [Lasix] 20 mg PO DAILY 11/17/17 11/17/17 History Loperamide [Imodium] 4 mg PO QID PRN 11/17/17 11/17/17 History Potassium Chloride ER [K-Dur 10] 10 meq PO DAILY 11/17/17 11/17/17 History amLODIPine [Norvasc] 10 mg PO DAILY 11/17/17 11/17/17 History hydrALAZINE HCL [Apresoline] 50 mg PO DAILY 11/17/17 11/17/17 History Allergies Allergy/AdvReac Type Severity Reaction Status Date / Time acetaminophen [From [place]] Allergy Rash/Hives Verified 11/17/17 20:07 hydrocodone [From [place]] Allergy Rash/Hives Verified 11/17/17 20:07 naproxen sodium [From [place]] Allergy Itching,bessie Verified 11/17/17 20:07 h Physical Exam Vitals: Vital Signs Temp Pulse Pulse Pulse Resp BP BP 11/18/17 15:33 98.2 F 65 18 119/51 11/18/17 13:40 68 18 170/60 11/18/17 12:40 68 18 170/60 11/18/17 12:00 18 11/18/17 11:40 69 18 143/77 11/18/17 11:10 71 18 159/70 11/18/17 10:40 63 18 156/63 11/18/17 10:25 67 18 174/69 11/18/17 10:10 63 16 139/60 11/18/17 09:55 65 18 152/67 11/18/17 08:00 99.1 F 75 18 179/75 11/18/17 06:10 60 12 179/73 11/17/17 22:15 99.1 F 58 L 12 166/69 11/17/17 21:45 131/60 11/17/17 21:21 100.2 F H 67 18 163/99 11/17/17 20:56 11/17/17 19:26 100.9 F H 74 20 190/89 Pulse Ox 11/18/17 15:33 95 11/18/17 13:40 95 11/18/17 12:40 95 11/18/17 12:00 11/18/17 11:40 94 L 11/18/17 11:10 94 L 11/18/17 10:40 95 11/18/17 10:25 96 11/18/17 10:10 94 L 11/18/17 09:55 95 11/18/17 08:00 96 11/18/17 06:10 93 L 11/17/17 22:15 92 L 11/17/17 21:45 11/17/17 21:21 98 11/17/17 20:56 96 11/17/17 19:26 94 L Intake and Output 11/18/17 11/18/17 11/18/17 06:59 14:59 22:59 Intake Total 164.033 525 Output Total 500 500 Balance -335.967 25 Intake: IV 25 Intake, IV Titration 164.033 500 Amount Heparin Sod,Pork in 0.45% 164.033 NaCl 25,000 unit In 0.45 % NaCl 1 500ml.bag @ 12 UNITS/KG/HR 18.5 mls/hr IV .Q24H [facility] Rx#: [id number] Sodium Chloride 0.9% 1, 500 000 ml @ 100 mls/hr IV . Q10H [facility] Rx#:[id number] Output: Urine 500 500 Other: Voiding Method Bedside Commode Bedside Commode # Voids 1 # Bowel Movements 1 Weight 79.2 kg - Constitutional General appearance: average body habitus, cooperative - EENT Eyes: EOMI, PERRLA, no photophobia, no ptosis ENT: hearing grossly normal Ears: bilateral: normal - Neck Neck: no lymphadenopathy, normal ROM, no rigidity, no stridor Carotids: bilateral: upstroke normal Thyroid: bilateral: normal size - Respiratory Respiratory: bilateral: diminished, dullness, negative: CTA, wheezing - Cardiovascular Rhythm: regular Heart sounds: normal: S1, S2 Abnormal Heart Sounds: no systolic murmur, no diastolic murmur, no rub, no click ankle Peripheral Edema: absent: None - Gastrointestinal General gastrointestinal: normal bowel sounds, no organomegaly, soft - Integumentary Integumentary: normal turgor, no rash - Neurologic Neurologic: CNII-XII intact - Musculoskeletal Musculoskeletal: no generalized weakness, strength equal bilaterally - Psychiatric Psychiatric: A&O x's 3, appropriate affect Results CBC & Chem 7: 11/18/17 04:31 11/17/17 19:58 Labs: Abnormal Lab Results - Last 24 Hours (Table) 11/17/17 11/17/17 11/18/17 Range/Units 19:58 19:58 01:25 APTT (22.0-30.0) sec Sodium 135 L (137-145) mmol/L BUN 20 H (7-17) mg/dL Glucose 336 H (74-99) mg/dL POC Glucose (mg/dL) (75-99) mg/dL Troponin I 1.960 H* 2.420 H* (0.000-0.034) ng/mL Total Protein 5.9 L (6.3-8.2) g/dL Triglycerides (<150) mg/dL HDL Cholesterol (40-60) mg/dL Urine Appearance (Clear) Urine Protein (Negative) Urine Blood (Negative) Ur Leukocyte Esterase (Negative) Urine RBC (0-5) /hpf Urine WBC (0-5) /hpf Urine WBC Clumps (None) /hpf Urine Bacteria (None) /hpf 11/18/17 11/18/17 11/18/17 Range/Units 04:31 04:31 08:26 APTT 37.0 H (22.0-30.0) sec Sodium (137-145) mmol/L BUN (7-17) mg/dL Glucose (74-99) mg/dL POC Glucose (mg/dL) (75-99) mg/dL Troponin I 2.650 H* (0.000-0.034) ng/mL Total Protein (6.3-8.2) g/dL Triglycerides 249 H (<150) mg/dL HDL Cholesterol 37 L (40-60) mg/dL Urine Appearance (Clear) Urine Protein (Negative) Urine Blood (Negative) Ur Leukocyte Esterase (Negative) Urine RBC (0-5) /hpf Urine WBC (0-5) /hpf Urine WBC Clumps (None) /hpf Urine Bacteria (None) /hpf 11/18/17 11/18/17 11/18/17 Range/Units 08:50 12:24 15:29 APTT 52.7 H (22.0-30.0) sec Sodium (137-145) mmol/L BUN (7-17) mg/dL Glucose (74-99) mg/dL POC Glucose (mg/dL) 304 H (75-99) mg/dL Troponin I (0.000-0.034) ng/mL Total Protein (6.3-8.2) g/dL Triglycerides (<150) mg/dL HDL Cholesterol (40-60) mg/dL Urine Appearance Turbid H (Clear) Urine Protein 1+ H (Negative) Urine Blood Small H (Negative) Ur Leukocyte Esterase Large H (Negative) Urine RBC 23 H (0-5) /hpf Urine WBC >182 H (0-5) /hpf Urine WBC Clumps Many H (None) /hpf Urine Bacteria Many H (None) /hpf Thrombosis Risk Factor Assmnt - DVT/VTE Prophylaxis DVT/VTE Prophylaxis: Pharmacologic Prophylaxis ordered, Mechanical Prophylaxis ordered - Choose All That Apply Any of the Below Risk Factors Present?: No Other Risk Factors: No Thrombosis Risk Factor Assessment Level: Very Low Risk Assessment and Plan Plan: #1 cardiac chest pain likely secondary to NSTEMI - Cardiac catheter on 11/18 suggestive of left main disease along with critical stenosis and small to medium vessel of LAD - Continue medical treatment with aspirin, Lipitor, Toprol-XL, lisinopril and Imdur - Echocardiogram pending #2 diabetes continue insulin sliding scale and glucose check. Hold Januvia and metformin #3 hyperlipidemia continue Lipitor 80 mg daily #4 hypertension continue imdur, lisinopril, metoprolol. We'll hold Lasix for today #5 DVT prophylaxis with SCDs #6 GI prophylaxis with Pepcid 20 mg twice a day CODE STATUS full code
[2017-11-18 17:10] LABS: Glucose,Whole Blood 196 mg/dL (75-99)
[2017-11-18] MEDS: FAMOTIDINE 20 MG TAB PO SCH (20:12)
[2017-11-18] MEDS ORDERED: METOPROLOL TARTRATE 5 MG/5 ML VIAL IVP ONE (20:18)
[2017-11-18] MEDS ORDERED: HYDROmorphone 1 MG/ML 1 ML SYRINGE IVP STA (20:18)
[2017-11-18 21:00] LABS: Glucose,Whole Blood 273 mg/dL (75-99)
[2017-11-18 21:15] LABS: Hemoglobin A1C 9.5 % (4.0-6.0)
[2017-11-19] MEDS: HEPARIN SOD,PORK IN 0.45% NACL 25,000 UNIT in 0.45% NACL 1 500ML.BAG IV SCH (00:14)
[2017-11-19] MEDS: cefTRIAXone IN SWFI 1,000 MG/10 ML SYRINGE IVP SCH ×2 (00:28→22:20)
[2017-11-19 05:55] LABS: Glucose,Whole Blood 230 mg/dL (75-99)
[2017-11-19] MEDS: METOPROLOL SUCCINATE (ER) 25 MG TAB.ER.24H PO SCH (05:57)
[2017-11-19] MEDS: ISOSORBIDE MONONITRATE ER 30 MG TAB.ER.24H PO SCH (05:58)
[2017-11-19] MEDS: ASPIRIN 325 MG TAB PO SCH (05:58)
[2017-11-19] MEDS: FAMOTIDINE 20 MG TAB PO SCH (05:58)
[2017-11-19 06:33] LABS: Mean Platelet Volume 7.3; Platelet Count 243 k/uL (150-450)
[2017-11-19] MEDS: INSULIN ASPART 100 UNIT/ML 1 ML 10 ML VIAL SQ SCH ×4 (06:36→21:02)
[2017-11-19 07:28] LABS: Anion Gap 8 mmol/L; Blood Urea Nitrogen 16 mg/dL (7-17); Calcium 8.9 mg/dL (8.4-10.2); Carbon Dioxide 23 mmol/L (22-30); Chloride 107 mmol/L (98-107); Glucose 209 mg/dL (74-99); Potassium 4.1 mmol/L (3.5-5.1); Sodium 138 mmol/L (137-145)
[2017-11-19] MEDS: LISINOPRIL 5 MG TAB PO SCH (07:48)
[2017-11-19] MEDS ORDERED: SODIUM CHLORIDE 0.9% 1,000 ML in EMPTY BAG 1 BAG IV ONE (09:09)
[2017-11-19] MEDS ORDERED: ALPRAZolam 0.25 MG TAB PO PRN (09:09)
[2017-11-19] MEDS ORDERED: ALPRAZolam 0.5 MG TAB PO PRN (09:09)
[2017-11-19] MEDS ORDERED: NITROGLYCERIN SL TABS 0.4 MG TAB SUBLINGUAL PRN ×2 (09:09→12:12)
[2017-11-19] MEDS ORDERED: ASPIRIN 325 MG TAB PO STA (09:09)
[2017-11-19] MEDS ORDERED: ATORVASTATIN 80 MG TAB PO STA (09:12)
[2017-11-19] MEDS ORDERED: LIDOCAINE 2% INJ 20 MG/ML (20 ML MDV) ONE (09:31)
[2017-11-19] MEDS ORDERED: MIDAZOLAM 2 MG/2 ML VIAL ONE (09:31)
[2017-11-19] MEDS ORDERED: IV FLUID CONTINUATION 400 ML IV ONE (09:35)
[2017-11-19] MEDS ORDERED: MIDAZOLAM 2 MG/2 ML VIAL IV ONE (10:15)
[2017-11-19] MEDS ORDERED: LIDOCAINE 2% INJ 20 MG/ML SQ ONE (10:15)
[2017-11-19] MEDS ORDERED: BIVALIRUDIN BOLUS 250 MG/50 ML IV ONE (10:24)
[2017-11-19] MEDS ORDERED: BIVALIRUDIN 250 MG in SODIUM CHLORIDE 0.9% 50 ML IV ONE ×2 (10:25→11:35)
[2017-11-19] MEDS: NITROGLYCERIN 1000MCG/10ML SYRINGE INTRACORON ONE ×4 (10:29→12:02)
[2017-11-19] MEDS ORDERED: CLOPIDOGREL 75 MG TAB ONE ×2 (12:05)
[2017-11-19] MEDS ORDERED: ATROPINE SULFATE 0.1 MG/ML 10ML SYRINGE IV PRN (12:12)
[2017-11-19] MEDS ORDERED: ZOLPIDEM 5 MG TAB PO PRN (12:12)
[2017-11-19] MEDS ORDERED: MAG HYDROX/AL HYDROX/SIMETH 30 ML CUP PO PRN (12:12)
[2017-11-19] MEDS ORDERED: RX INFO: IV CONTRAST WAS GIVEN 1 EACH MISC MISCELLANE PRN (12:12)
[2017-11-19] MEDS ORDERED: CLOPIDOGREL 75 MG TAB PO ONE (12:14)
[2017-11-19] MEDS ORDERED: SODIUM CHLORIDE 0.9% 1,000 ML IV SCH (12:15)
[2017-11-19] MEDS ORDERED: IOHEXOL 350 MG/ML 125ML BOTTLE INJ ONE (12:15)
[2017-11-19 12:49] LABS: Glucose,Whole Blood 239 mg/dL (75-99)
--- NOTE | 2017-11-19 12:49 | P.PN ---
Subjective Progress Note Date: 11/19/17 This is 87 years old female with history of hypertension, hyperlipidemia, type 2 diabetes coming in with substernal chest pain radiating to her back associated with shortness of breath. She endorses heartburn for the past few days. She lives with a caregiver and her daughter who daughter to the emergency room. EKG done in the ER suggestive of significant ST-T wave changes in the lateral leads concerning for an AK. Chest x-ray suggested some pulmonary congestion and pleural effusion. Vitals in the ER includes a blood pressure 190/ 80, heart rate 73. Labs done the ER suggestive of unremarkable CBC and BMP. Initial troponin was 1.9 that increased to 2.4. Patient was initiated on IV heparin and was given a dose of aspirin and nitroglycerin state. She was taken for cardiac catheter this morning and was found to have critical disease involving small to medium caliber LAD with some disease involving the left main coronary artery. Patient to continue on medical treatment overnight. If chest pain persists,will proceed with PCI of the LAD 11/19: Patient underwent heart catheterization with Dr. Otto yesterday the found severe disease in the PDA branch of the RCA by the ostium but this is a small caliber vessel. Mid shaft left main in the range of 30%. Severe disease in the mid left circumflex which is also small to medium caliber. Severe disease involving the mid LAD which is also small to medium caliber vessel. Plan was for maximizing medical treatment but patient had chest pain during the night. She states that she had pain in but did not want to tell anybody about it. It is better at this time. Patient will be going for PCI today. Patient has been started on ceftriaxone for urinary tract infection and urine culture is in progress. Blood culture showing no growth after 24 hours. Patient is planning to return home at the time of discharge. Objective - Vital Signs Vital signs: Vital Signs Temp 97.6 F 11/19/17 08:00 Pulse 67 11/19/17 08:00 Resp 16 11/19/17 08:00 BP 162/71 11/19/17 08:00 Pulse Ox 97 11/19/17 08:00 Intake & Output 11/18/17 11/19/17 11/19/17 18:59 06:59 18:59 Intake Total 995 1935.967 Output Total 1300 Balance -305 1935.967 Weight 79.8 kg Intake: IV 25 Intake, IV Titration 500 1935.967 Amount Heparin Sod,Pork in 0.45% 335.967 NaCl 25,000 unit In 0.45 % NaCl 1 500ml.bag @ 12 UNITS/KG/HR 18.5 mls/hr IV .Q24H [facility] Rx#: [id number] Sodium Chloride 0.9% 1, 500 1600 000 ml @ 100 mls/hr IV . Q10H [facility] Rx#:[id number] Oral 470 Output: Urine 1300 Other: Voiding Method Bedside Commode Bedside Commode Bedside Commode # Voids 1 1 # Bowel Movements 1 - Exam General appearance: average body habitus, cooperative - EENT Eyes: EOMI, PERRLA, no photophobia, no ptosis ENT: hearing grossly normal Ears: bilateral: normal - Neck Neck: no lymphadenopathy, normal ROM, no rigidity, no stridor Carotids: bilateral: upstroke normal Thyroid: bilateral: normal size - Respiratory Respiratory: bilateral: diminished, dullness, negative: CTA, wheezing - Cardiovascular Rhythm: regular Heart sounds: normal: S1, S2 Abnormal Heart Sounds: no systolic murmur, no diastolic murmur, no rub, no click ankle Peripheral Edema: absent: None - Gastrointestinal General gastrointestinal: normal bowel sounds, no organomegaly, soft - Integumentary Integumentary: normal turgor, no rash - Neurologic Neurologic: CNII-XII intact - Musculoskeletal Musculoskeletal: no generalized weakness, strength equal bilaterally - Psychiatric Psychiatric: A&O x's 3, appropriate affect - Labs CBC & Chem 7: 11/19/17 05:54 11/19/17 05:54 Labs: Abnormal Lab Results - Last 24 Hours (Table) 11/18/17 11/18/17 11/18/17 Range/Units 04:30 08:26 08:50 APTT (22.0-30.0) sec Glucose (74-99) mg/dL POC Glucose (mg/dL) (75-99) mg/dL Hemoglobin A1c 9.5 H (4.0-6.0) % Troponin I 2.650 H* (0.000-0.034) ng/mL Urine Appearance Turbid H (Clear) Urine Protein 1+ H (Negative) Urine Blood Small H (Negative) Ur Leukocyte Esterase Large H (Negative) Urine RBC 23 H (0-5) /hpf Urine WBC >182 H (0-5) /hpf Urine WBC Clumps Many H (None) /hpf Urine Bacteria Many H (None) /hpf 11/18/17 11/18/17 11/18/17 Range/Units 12:24 15:29 16:34 APTT 52.7 H (22.0-30.0) sec Glucose (74-99) mg/dL POC Glucose (mg/dL) 304 H 196 H (75-99) mg/dL Hemoglobin A1c (4.0-6.0) % Troponin I (0.000-0.034) ng/mL Urine Appearance (Clear) Urine Protein (Negative) Urine Blood (Negative) Ur Leukocyte Esterase (Negative) Urine RBC (0-5) /hpf Urine WBC (0-5) /hpf Urine WBC Clumps (None) /hpf Urine Bacteria (None) /hpf 11/18/17 11/19/17 11/19/17 Range/Units 20:58 05:51 05:54 APTT (22.0-30.0) sec Glucose 209 H (74-99) mg/dL POC Glucose (mg/dL) 273 H 230 H (75-99) mg/dL Hemoglobin A1c (4.0-6.0) % Troponin I (0.000-0.034) ng/mL Urine Appearance (Clear) Urine Protein (Negative) Urine Blood (Negative) Ur Leukocyte Esterase (Negative) Urine RBC (0-5) /hpf Urine WBC (0-5) /hpf Urine WBC Clumps (None) /hpf Urine Bacteria (None) /hpf Microbiology - Last 24 Hours (Table) 11/18/17 08:50 Urine Culture - Preliminary Urine,Clean Catch 11/17/17 20:14 Blood Culture - Preliminary Blood No Growth after 24 hours Assessment and Plan Plan: 1 cardiac chest pain likely secondary to NSTEMI - Cardiac catheter on 11/18 suggestive of left main disease along with critical stenosis and small to medium vessel of LAD; PCI scheduled - Continue medical treatment with aspirin, Lipitor, Toprol-XL, lisinopril and Imdur - Echocardiogram pending #2 diabetes mellitus type II continue insulin sliding scale and glucose check. Hold Januvia and metformin #3 hyperlipidemia continue Lipitor 80 mg daily #4 hypertension continue imdur, lisinopril, metoprolol. We'll hold Lasix for today #5 DVT prophylaxis with SCDs #6 GI prophylaxis with Pepcid 20 mg twice a day 7. Urinary tract infection. Patient started on Rocephin. Urine culture is pending. CODE STATUS full code Discharge plan: Return home Impression and plan of care have been directed as dictated by the signing physician. oDnita Padron nurse practitioner acting as scribe for signing physician.
--- NOTE | 2017-11-19 12:49 | LTR ---
November 19, 2017. Re: Tracy Mcclain Dear Yee: Ms. Tracy Mcclain, as you remember we talked about Tracy Mcclain yesterday, and we decided to pursue a conservative medical approach, but she continues to have anginal chest discomfort. Because of that, she was brought to the cardiac stores laborer today and she underwent successful stenting of the LAD with good results and without any complication. I want to thank you for allowing me to participate in her care and please do not hesitate to call if you have any question or concern. Sincerely, MD ZION Arciniega / RUSLAN: [id number] /
--- NOTE | 2017-11-19 12:58 | AS ---
ARTERIAL STUDY PERCUTANEOUS CORONARY INTERVENTION: 11/19/2017 PERFORMING PHYSICIAN: Dean Otto MD, Spanish Speaking Nanny. PROCEDURES PERFORMED: 1. Successful stenting of the the mid LAD using 225 x 12 and 225 x 16 mm Promus Premier drug-eluting stent with good angiographic results. 2. Successful balloon angioplasty of the proximal left anterior descending artery using 2.5 mm balloon with good angiographic results. INDICATION: This is a pleasant 87-year-old female patient who presented to the hospital with acute udw-UO-mqqrjxgfv myocardial infarction and was admitted to the hospital with chest discomfort and was diagnosed with acute kmx-DC-kwumvjzjs myocardial infarction. She underwent heart catheterization yesterday and that showed critical disease involving the mid LAD and mild to moderate disease involving the left main. In view of the high risk procedure, we decided to pursue initially a conservative medical approach. The patient continues to have chest discomfort in spite of that. Because of that, she was brought downstairs to the Cardiac Fire Extinguisher Technician to undergo stenting of the LAD. APPROACH: Right common femoral artery. COMPLICATION: None. LEVEL OF SEDATION: Moderate with sedation length of 110 minutes. PROCEDURE DESCRIPTION: After obtaining informed consent, the patient was brought to the Cardiac Fire Extinguisher Technician. The right common femoral artery was cannulated using micropuncture technique, the micropuncture wire passed easily, then I placed a 6-Ukrainian sheath in the right common femoral artery. At that point, anticoagulation was initiated using Angiomax. After that, I did engage the left main using JL3.5 guiding catheter. The LAD was wired using a whisper wire. I attempted advancing 2-0 mm balloon but the balloon once proximal will not cross the proximal LAD in spite of double wire and in spite of using adjunctive Godzilla. At that point, I decided to exchange my wire. At that point, I decided to exchange my lluvia wire into an Iron man. I was able to exchange the run-through wire which was a lluvia wire into a Iron man using 1.5 mm [id number]-[id number] balloon. With that, I was able to advance 2.5 mm balloon initially semi-compliant balloon where the balloon was inflated under its nominal pressure with the following angiogram showed dissection of the mid LAD was not flow-limiting. I attempted advancing a stent and I was unable. At that point, I decided to use a noncompliant balloon trying to tag the flap in the area of the dissection in the mid LAD. I did use 2.5 mm x 23 noncompliant balloon and I inflated the balloon for 30 seconds and in spite of that, there was residual dissection and again was non flow-limiting. After reviewing the angiogram carefully, I decided to do balloon angioplasty on the proximal LAD where the tortuosity there. There was a lesion about 50%. I did balloon angioplasty using 2.5 mm balloon where the following angiogram showed better angiographic results without dissection. With that, I was able to advance 2 stents to the mid LAD. The 1st stent was 225 x 16 and the second OM site 225 x 12 and the second stent was 225 x 16 mm. Both Promus drug-eluting stents. The following angiogram showed good angiographic results without perforation and without dissection with good flow in the LAD. The procedure was completed without any complication. POSTPROCEDURE MANAGEMENT: 1. Dual anti-platelet therapy. 2. Risk factors modifications. 3. Follow up with the patient. MMROSA / ELIZABETHN: [id number] /
[2017-11-19 14:29] VITALS: BMI 32.1
[2017-11-19] MEDS ORDERED: HYDROmorphone 2 MG/ML 1 ML SYRINGE IVP STA (15:19)
[2017-11-19 16:37] LABS: Glucose,Whole Blood 189 mg/dL (75-99)
--- NOTE | 2017-11-19 17:14 | ECHOF ---
Referral Reason:Elevated troponin, fever MEASUREMENTS -------- HEIGHT: 157.5 cm WEIGHT: 78.9 kg BP: 179/73 IVSd: 1.1 cm (0.6 - 1.1) LVIDd: 3.8 cm (3.9 - 5.3) LVPWd: 1.3 cm (0.6 - 1.1) EDV(Teich): 61 ml IVSs: 1.5 cm LVIDs: 2.0 cm LVPWs: 1.4 cm %IVS Thck: 41 % ESV(Teich): 13 ml EF(Teich): 79 % %FS: 47 % SV(Teich): 48 ml LVOT Diam: 1.5 cm Ao Diam: 3.2 cm (2.0 - 3.7) AV Cusp: 1.8 cm (1.5 - 2.6) LA Diam: 3.5 cm (2.7 - 3.8) MV EXCURSION: 17.354 mm (> 18.000) MV EF SLOPE: 27 mm/s (70 - 150) EPSS: 0.6 cm MV E Jarvis: 1.22 m/s MV DecT: 286 ms MV Dec Redwood: 4.3 m/s MV A Jarvis: 1.38 m/s MV E/A Ratio: 0.88 MV PHT: 83 ms E/E': 20.75 E': 0.06 m/s MR Vmax: 4.77 m/s MR maxP.13 mmHg LVOT Vmax: 0.97 m/s LVOT maxP.78 mmHg LVOT Vmax: 1.00 m/s LVOT Vmean: 0.67 m/s LVOT maxP.98 mmHg LVOT meanP.03 mmHg LVOT Env.Ti: 424 ms LVOT VTI: 28.5 cm AV Vmax: 2.55 m/s AV maxP.07 mmHg ONEAL Vmax, Pt: 0.7 cm ONEAL Vmax: 0.7 cm AV Vmax: 2.67 m/s AV Vmean: 1.86 m/s AV maxP.48 mmHg AV meanP.93 mmHg AV Env.Ti: 369 ms AV VTI: 68.5 cm ONEAL Vmax: 0.7 cm ONEAL (VTI): 0.8 cm ONEAL Vmax, Pt: 0.7 cm TR Vmax: 1.77 m/s TR maxP.53 mmHg RAP: 5.00 mmHg RVSP: 17.53 mmHg FINDINGS -------- Sinus rhythm. This was a technically difficult study with suboptimal views. The left ventricular size is normal. There is mild concentric left ventricular hypertrophy. Overa ll left ventricular systolic function is normal with, an EF between 55 - 60 %. The right ventricle is normal in size and function. The left atrium is normal in size. The right atrium is normal in size. Aortic valve is trileaflet and is moderately thickened. There is moderate aortic stenosis present. Peak/mean gradient across the Aortic Valve is 28.48mmHg / 15.93mmHg. The mitral valve leaflets are mildly thickened. Mild mitral annular calcification present. Mild m itral regurgitation is present. Mild tricuspid regurgitation present. The right ventricular systolic pressure, as measured by Doppl er, is 17.53mmHg. Pulmonic valve appears structurally normal. The pericardium is normal. CONCLUSIONS -------- 1. Sinus rhythm. 2. This was a technically difficult study with suboptimal views. 3. The left ventricular size is normal. 4. There is mild concentric left ventricular hypertrophy. 5. Overall left ventricular systolic function is normal with, an EF between 55 - 60 %. 6. The right ventricle is normal in size and function. 7. The left atrium is normal in size. 8. The right atrium is normal in size. 9. Aortic valve is trileaflet and is moderately thickened. 10. There is moderate aortic stenosis present. 11. Peak/mean gradient across the Aortic Valve is 28.48mmHg / 15.93mmHg. 12. The mitral valve leaflets are mildly thickened. 13. Mild mitral annular calcification present. 14. Mild mitral regurgitation is present. 15. Mild tricuspid regurgitation present. 16. The right ventricular systolic pressure, as measured by Doppler, is 17.53mmHg. 17. Pulmonic valve appears structurally normal. 18. The pericardium is normal. PRE PRESS PROOFER: Paola Gonzales RDCS
[2017-11-19 20:42] LABS: Glucose,Whole Blood 209 mg/dL (75-99)
[2017-11-20 06:07] LABS: Glucose,Whole Blood 188 mg/dL (75-99)
[2017-11-20] MEDS: INSULIN ASPART 100 UNIT/ML 1 ML 10 ML VIAL SQ SCH ×4 (06:21→21:05)
[2017-11-20 06:29] LABS: Mean Platelet Volume 7.1; Platelet Count 243 k/uL (150-450)
[2017-11-20 06:41] LABS: Anion Gap 8 mmol/L; Blood Urea Nitrogen 11 mg/dL (7-17); Calcium 8.8 mg/dL (8.4-10.2); Carbon Dioxide 23 mmol/L (22-30); Chloride 107 mmol/L (98-107); Glucose 186 mg/dL (74-99); Potassium 3.9 mmol/L (3.5-5.1); Sodium 138 mmol/L (137-145)
[2017-11-20] MEDS: CLOPIDOGREL 75 MG TAB PO SCH (09:10)
[2017-11-20] MEDS: FAMOTIDINE 20 MG TAB PO SCH (09:10)
[2017-11-20] MEDS: ISOSORBIDE MONONITRATE ER 30 MG TAB.ER.24H PO SCH (09:10)
[2017-11-20] MEDS: ASPIRIN 325 MG TAB PO SCH (09:10)
[2017-11-20] MEDS: LISINOPRIL 5 MG TAB PO SCH ×2 (09:11→21:05)
[2017-11-20] MEDS: METOPROLOL SUCCINATE (ER) 25 MG TAB.ER.24H PO SCH (09:11)
--- NOTE | 2017-11-20 11:01 | P.PN ---
Subjective Progress Note Date: 11/20/17 patient is complaining of right groin pain after the procedure yesterday no major events reported by nursing staff patient is alert and oriented 3 denying chest pain, shortness breath, nausea, vomiting, abdominal pain, dizziness, lightheadedness or blurry vision Objective - Vital Signs Vital signs: Vital Signs Temp 99.7 F H 11/20/17 09:00 Pulse 82 11/20/17 09:00 Resp 20 11/20/17 09:00 BP 155/67 11/20/17 09:00 Pulse Ox 94 L 11/20/17 09:00 Intake & Output 11/19/17 11/20/17 11/20/17 18:59 06:59 18:59 Intake Total 264 500 240 Output Total 1200 200 Balance -936 300 240 Weight 79.8 kg 79.2 kg Intake: IV 264 Intake, IV Titration 500 Amount Sodium Chloride 0.9% 1, 500 000 ml @ 100 mls/hr IV . Q10H [facility] Rx#:[id number] Oral 240 Output: Urine 1200 200 Other: Voiding Method Bedside Commode Bedside Commode Toilet # Voids 2 1 - Exam lungs clear to auscultation bilaterally Heart normal S1-S2 Abdomen soft nontender illness plus positive in all 4 quadrants. Right groin area seems to be clean and intact and dry with mild tenderness to deep palpation. Skin no new rash Psych alert and noted 3 Marck intact - Labs CBC & Chem 7: 11/20/17 05:54 11/20/17 05:54 Labs: Abnormal Lab Results - Last 24 Hours (Table) 11/19/17 11/19/17 11/19/17 Range/Units 12:30 16:35 20:29 Glucose (74-99) mg/dL POC Glucose (mg/dL) 239 H 189 H 209 H (75-99) mg/dL 11/20/17 11/20/17 Range/Units 05:54 06:03 Glucose 186 H (74-99) mg/dL POC Glucose (mg/dL) 188 H (75-99) mg/dL Microbiology - Last 24 Hours (Table) 11/17/17 20:14 Blood Culture - Preliminary Blood No Growth after 48 hours 11/18/17 08:50 Urine Culture - Preliminary Urine,Clean Catch Gram Neg Bacilli Assessment and Plan Assessment: 1. Non-ST elevation CT status post cardiac catheterization with drug-eluting stent to LAD. Would continue cardioprotective medication continue monitoring her lites are going closely and will follow-up with cardiology recommendation regarding discharge planning. 2. Diabetes mellitus. Continue insulin sliding scale seems to be controlled at this point we will resume her home medication on discharge #3 hypertension controlled continue current regimen 4. Hyperlipidemia continue statin 5. Late groin pain with continue monitoring 6. Greater than 100,000 colonies gram-negative bacteria on urine culture would continue with Rocephin and follow up on culture results and consider switching to oral antibiotics upon final result Discharge planning based on clinical progress
[2017-11-20 12:00] LABS: Glucose,Whole Blood 258 mg/dL (75-99)
--- NOTE | 2017-11-20 14:50 | PN ---
PROGRESS NOTE Ms. Mcclain is an 87-year-old female who presented with non ST-segment elevation myocardial infarction and underwent stenting of her LAD by Dr. Otto. She is doing well this morning. She denies any chest pain. She denies any dizziness or palpitation. She continues to be at this time on aspirin once a day, Plavix 75 mg daily, isosorbide mononitrate 30 mg daily, lisinopril 5 mg daily. PHYSICAL EXAMINATION: Blood pressure running in the 150s with a heart rate in the 70s. LUNGS: Clear. HEART: Regular rate rhythm S1, S2. No S3 with systolic murmur. No diastolic murmur. ABDOMEN: Soft, nontender. RIGHT GROIN: No hematoma. LAB DATA: BUN and creatinine 11 and 0.7. IMPRESSION: 1. Status post stenting of the left anterior descending in a setting of non ST elevation myocardial infarction. 2. Hypertension. 3. Hyperlipidemia. RECOMMENDATION: From the cardiac standpoint, I will add to her regimen a statin. I will continue on the beta giselle, increase the dose of her Zestril to optimize her blood pressure control. If she remains stable, I would expect she should be able to be discharged home tomorrow. MMODL / IJN: [id number] /
[2017-11-20] MEDS: ATORVASTATIN 40 MG TAB PO SCH (16:14)
[2017-11-20 17:05] LABS: Glucose,Whole Blood 295 mg/dL (75-99)
[2017-11-20 20:51] LABS: Glucose,Whole Blood 196 mg/dL (75-99)
[2017-11-20] MEDS: cefTRIAXone IN SWFI 1,000 MG/10 ML SYRINGE IVP SCH (22:47)
[2017-11-21 06:02] LABS: Glucose,Whole Blood 207 mg/dL (75-99)
[2017-11-21] MEDS: INSULIN ASPART 100 UNIT/ML 1 ML 10 ML VIAL SQ SCH ×2 (06:20→12:41)
[2017-11-21 08:00] LABS: Anion Gap 9 mmol/L; Blood Urea Nitrogen 9 mg/dL (7-17); Calcium 9.2 mg/dL (8.4-10.2); Carbon Dioxide 23 mmol/L (22-30); Chloride 107 mmol/L (98-107); Glucose 209 mg/dL (74-99); Potassium 3.8 mmol/L (3.5-5.1); Sodium 139 mmol/L (137-145)
[2017-11-21] MEDS: ISOSORBIDE MONONITRATE ER 30 MG TAB.ER.24H PO SCH (08:31)
[2017-11-21] MEDS: ATORVASTATIN 40 MG TAB PO SCH (08:31)
[2017-11-21] MEDS: CLOPIDOGREL 75 MG TAB PO SCH (08:31)
[2017-11-21] MEDS: FAMOTIDINE 20 MG TAB PO SCH (08:31)
[2017-11-21] MEDS ORDERED: ASPIRIN 81 MG PO SCH (09:00)
[2017-11-21] MEDS: METOPROLOL SUCCINATE (ER) 25 MG TAB.ER.24H PO SCH (09:08)
[2017-11-21] MEDS: LISINOPRIL 5 MG TAB PO SCH ×2 (09:08→16:05)
[2017-11-21 11:40] VITALS: RESP 20; TEMP 99.1
[2017-11-21 12:11] LABS: Glucose,Whole Blood 314 mg/dL (75-99)
--- NOTE | 2017-11-21 15:04 | P.DS ---
Providers Date of admission: 11/17/17 20:56 Attending physician: Audra Gonzalez MD Consults: 11/17/17 20:56 Consult Physician Urgent Consulting Provider: Dean Otto Consult Reason/Comments: nstemi Do you want consulting provider notified?: Yes 11/19/17 12:12 Consult Physician Routine Consulting Provider: [facility] Consult Reason/Comments: Post Interventional patient Do you want consulting provider notified?: Already Contacted Primary care physician: [facility] Hospital Course: This is 87 years old female with past medical history for diabetes mellitus presents to the hospital with a new onset chest pain patient was taken to the [facility] by cardiology and drug-eluting stent was depleted to LAD. Patient had uncomplicated course after procedure treated for urinary tract infection and was discharged on Keflex, Plavix, statin, aspirin and asked to follow-up with cardiology unscheduled appointment and with her primary care physician on her scheduled appointment on the November 2017. Patient was stable and discharged in stable condition after long discussion with the patient and her daughter at the bedside for the necessity of taking medication on every single day without interruption for the next 365 days. Patient was discharged in stable condition Plan - Discharge Summary Discharge Rx Participant: Yes New Discharge Prescriptions: No Action metFORMIN HCL [Glucophage] 500 mg PO BID sitaGLIPtin PHOSPHATE [Januvia] 100 mg PO DAILY Menthol [Icy Hot] 1 patch TRANSDERM DAILY PRN PRN Reason: Pain Loperamide [Imodium] 4 mg PO QID PRN PRN Reason: Diarrhea Atorvastatin [Lipitor] 10 mg PO DAILY Potassium Chloride ER [K-Dur 10] 10 meq PO DAILY Aspirin [Adult Low Dose Aspirin EC] 81 mg PO DAILY Clopidogrel [Plavix] 1 tab PO DAILY Lisinopril [Zestril] 1 tab PO BID Metoprolol Succinate (ER) [Toprol XL] 1 tab PO DAILY Discharge Medication List metFORMIN HCL [Glucophage] 500 mg PO BID 12/18/15 [History] sitaGLIPtin PHOSPHATE [Januvia] 100 mg PO DAILY 12/18/15 [History] Menthol [Icy Hot] 1 patch TRANSDERM DAILY PRN 05/25/17 [History] Atorvastatin [Lipitor] 10 mg PO DAILY 11/17/17 [History] Loperamide [Imodium] 4 mg PO QID PRN 11/17/17 [History] Potassium Chloride ER [K-Dur 10] 10 meq PO DAILY 11/17/17 [History] Aspirin [Adult Low Dose Aspirin EC] 81 mg PO DAILY 11/21/17 [History] Clopidogrel [Plavix] 1 tab PO DAILY 11/21/17 [History] Lisinopril [Zestril] 1 tab PO BID 11/21/17 [History] Metoprolol Succinate (ER) [Toprol XL] 1 tab PO DAILY 11/21/17 [History] Follow up Appointment(s)/Referral(s): Yee Sales MD [Primary Care Provider] - 1-2 days (CALL OFFICE WEDNESDAY AM FOR APPOINTMENT TIME) Dean Otto MD [STAFF PHYSICIAN] - 11/26/17 1:45 pm Patient Instructions/Handouts: *[facility] - After Heart Catheterization - Expenditure Requisition Clerk Instructions, Myocardial Infarction (DC), Coronary Intravascular Stent Placement (DC), After Radial Heart Catheterization (GEN)
--- NOTE | 2017-11-21 16:00 | PN ---
PROGRESS NOTE Mrs. Mcclain is an 87-year-old female who presented with non ST-segment elevation myocardial infarction, underwent stenting of her right coronary artery. She is doing well this morning. She denying any chest pain. Her breathing has been stable. She denies any dizziness, palpitations. Continues to be on aspirin once a day, Lipitor 40 mg daily, Plavix 75 mg daily, lisinopril 5 mg twice a day, metoprolol tartrate 25 mg daily. PHYSICAL EXAMINATION: Blood pressure running in the 150s with a heart in the 80s. LUNGS: Clear. HEART: Regular rate and rhythm. S1, S2. No S3. No rub. ABDOMEN: Soft, nontender. EXTREMITIES: No edema. LAB DATA: BUN and creatinine 9 and 0.65. Potassium 3.8. IMPRESSION: 1. Status post non ST-segment elevation myocardial infarction and stenting of the LAD. 2. Hypertension. 3. Hyperlipidemia. RECOMMENDATION: The patient should be able to be discharged home today and follow up on a regular basis with Dr. Otto. Depending on the trend of her blood pressure, further adjustment of her regimen will be made. MMODL / IJN: [id number] /
[2017-11-21 16:03] VITALS: BP 169/72; PULSE 75
[2017-11-21 17:14] LABS: Glucose,Whole Blood 172 mg/dL (75-99)
== END 2017-11-21 17:18 | disposition home or self-care (01) | DRG 246 ==
LOC: EC 19:25 → 6SEL 20:56
PROVIDERS: ADMIT Internal Medicine; ATTEND Internal Medicine
PROC: 4A023N7 Measurement of Cardiac Sampling and Pressure, Left Heart, Percutaneous Approach (ICD-10-PCS; 2017-11-18)
PROC: B2101ZZ Fluoroscopy of Single Coronary Artery using Low Osmolar Contrast (ICD-10-PCS; 2017-11-18)
PROC: 027035Z Dilation of Coronary Artery, One Artery with Two Drug-eluting Intraluminal Devices, Percutaneous Approach (ICD-10-PCS; principal; 2017-11-19 09:35)
DX: I21.4 Non-ST elevation (NSTEMI) myocardial infarction (principal); I25.42 Coronary artery dissection; J90 Pleural effusion, not elsewhere classified; N39.0 Urinary tract infection, site not specified; E11.9 Type 2 diabetes mellitus without complications; E78.5 Hyperlipidemia, unspecified; F32.9 Major depressive disorder, single episode, unspecified; I10 Essential (primary) hypertension; R05 Cough; R12 Heartburn; J34.89 Other specified disorders of nose and nasal sinuses; R10.31 Right lower quadrant pain; Z79.84 Long term (current) use of oral hypoglycemic drugs; Z79.899 Other long term (current) drug therapy; Z86.73 Personal history of transient ischemic attack (TIA), and cerebral infarction without residual deficits; Z87.891 Personal history of nicotine dependence; Z88.6 Allergy status to analgesic agent; Z88.5 Allergy status to narcotic agent
CPT/HCPCS: 36415; 71046; 80048; 80053; 80061; 81001; 82550; 82553; 83036; 83605; 84484; 85025; 85049; 85610; 85730; 87040; 87077; 87086; 87186; 87502; 93005; 93306; 93454; 96365; 96376; 99291

== ENCOUNTER 2017-11-23 20:27 | Inpatient (IN) | payer MEDICARE, BC ==
[2017-11-23 21:21] LABS: Basophils # (A) 0.1 k/uL (0-0.2); Basophils % (A) 1 %; Eosinophils # (A) 0.2 k/uL (0-0.7); Eosinophils % (A) 3 %; HCT 35.2 % (34.0-46.0); HGB 11.6 gm/dL (11.4-16.0); Lymphocytes # (A) 2.2 k/uL (1.0-4.8); Lymphocytes % (A) 27 %; MCH 30.2 pg (25.0-35.0); MCHC 32.9 g/dL (31.0-37.0); MCV 91.9 fL (80.0-100.0); Mean Platelet Volume 7.1; Monocytes # (A) 0.4 k/uL (0-1.0); Monocytes % (A) 6 %; Neutrophils # (A) 4.9 k/uL (1.3-7.7); Neutrophils % (A) 62 %; Platelet Count 294 k/uL (150-450); RBC 3.83 m/uL (3.80-5.40); RDW 14.5 % (11.5-15.5); WBC 7.9 k/uL (3.8-10.6)
--- NOTE | 2017-11-23 21:28 | ED ---
General Adult HPI - General Chief complaint: Chest Pain Stated complaint: chest pain/left arm numbness/SOB Time Seen by Provider: 11/23/17 20:38 Source: patient, RN notes reviewed, old records reviewed Mode of arrival: wheelchair Limitations: no limitations - History of Present Illness Initial comments: This is an 87-year-old female to the ER for chest pain. Versus of severe chest pain at this time. Patient has no fever No nausea no vomiting. No shortness breath cough or congestion. Patient states pain is patient's family is at bedside and states patient did have recent heart attack with stent placement - Related Data Home Medications Medication Instructions Recorded Confirmed metFORMIN HCL [Glucophage] 500 mg PO BID 12/18/15 11/23/17 sitaGLIPtin PHOSPHATE [Januvia] 100 mg PO DAILY 12/18/15 11/23/17 Menthol [Icy Hot] 1 patch TRANSDERM DAILY PRN 05/25/17 11/23/17 Atorvastatin [Lipitor] 40 mg PO DAILY 11/17/17 11/23/17 Loperamide [Imodium] 4 mg PO QID PRN 11/17/17 11/23/17 Aspirin [Adult Low Dose Aspirin EC] 81 mg PO DAILY 11/21/17 11/23/17 Cephalexin [Keflex] 500 mg PO Q8HR 11/21/17 11/23/17 Clopidogrel [Plavix] 1 tab PO DAILY 11/21/17 11/23/17 Famotidine [Pepcid] 20 mg PO DAILY 11/21/17 11/23/17 Isosorbide Mononitrate ER [Imdur] 30 mg PO DAILY 11/21/17 11/23/17 Lisinopril [Zestril] 1 tab PO BID 11/21/17 11/23/17 Metoprolol Succinate (ER) [Toprol 1 tab PO DAILY 11/21/17 11/23/17 XL] Nitroglycerin Sl Tabs [Nitrostat] 0.4 mg SUBLINGUAL Q5M PRN 11/21/17 11/23/17 Allergies Allergy/AdvReac Type Severity Reaction Status Date / Time acetaminophen [From [place]] Allergy Rash/Hives Verified 11/23/17 20:39 hydrocodone [From [place]] Allergy Rash/Hives Verified 11/23/17 20:39 naproxen sodium [From [place]] Allergy Itching,bessie Verified 11/23/17 20:39 h Review of Systems ROS Statement: Those systems with pertinent positive or pertinent negative responses have been documented in the HPI. ROS Other: All systems not noted in ROS Statement are negative. Past Medical History Past Medical History: CVA/TIA, Diabetes Mellitus, Hyperlipidemia, Hypertension, Myocardial Infarction (MT), Renal Disease Additional Past Medical History / Comment(s): Pt reports that in May of 2017 she was diagnosed with renal failure History of Any Multi-Drug Resistant Organisms: None Reported Past Surgical History: Appendectomy, Back Surgery, Cholecystectomy, Heart Catheterization With Stent Additional Past Surgical History / Comment(s): neck surgery. wrist surgery approx 2014 Past Psychological History: Depression Smoking Status: Never smoker Past Alcohol Use History: None Reported Past Drug Use History: None Reported General Exam Limitations: no limitations General appearance: alert, in no apparent distress Head exam: Present: atraumatic, normocephalic, normal inspection Eye exam: Present: normal appearance, PERRL, EOMI. Absent: scleral icterus, conjunctival injection, periorbital swelling ENT exam: Present: normal exam, mucous membranes moist Neck exam: Present: normal inspection. Absent: tenderness, meningismus, lymphadenopathy Respiratory exam: Present: normal lung sounds bilaterally. Absent: respiratory distress, wheezes, rales, rhonchi, stridor Cardiovascular Exam: Present: regular rate, normal rhythm, normal heart sounds. Absent: systolic murmur, diastolic murmur, rubs, gallop, clicks GI/Abdominal exam: Present: soft, normal bowel sounds. Absent: distended, tenderness, guarding, rebound, rigid Extremities exam: Present: normal inspection, full ROM, normal capillary refill. Absent: tenderness, pedal edema, joint swelling, calf tenderness Back exam: Present: normal inspection Neurological exam: Present: alert, oriented X3, CN II-XII intact Psychiatric exam: Present: normal affect, normal mood Skin exam: Present: warm, dry, intact, normal color. Absent: rash Course Vital Signs 11/23/17 20:32 Temperature 99.2 F Pulse Rate 89 Respiratory 18 Rate Blood Pressure 216/100 O2 Sat by Pulse 95 Oximetry - Reevaluation(s) Reevaluation #1: Patient's medical record heart catheterization with possible stent placed EKG Findings - EKG Comments: EKG Findings:: EKG shows sinus rhythm rate of 81, OH 190, QRS 96, QTc 499 Medical Decision Making - Medical Decision Making 87-year-old ER for chest pain history of chest pain history of stent, patient also significantly elevated blood pressure, we'll treat patient's blood pressure as well as pain. Patient is admitted for cardiac observation - Lab Data Result diagrams: 11/23/17 21:05 11/23/17 21:05 Lab Results 11/23/17 11/23/17 11/23/17 Range/Units 21:05 21:05 21:05 WBC 7.9 (3.8-10.6) k/uL RBC 3.83 (3.80-5.40) m/uL Hgb 11.6 (11.4-16.0) gm/dL Hct 35.2 (34.0-46.0) % MCV 91.9 (80.0-100.0) fL MCH 30.2 (25.0-35.0) pg MCHC 32.9 (31.0-37.0) g/dL RDW 14.5 (11.5-15.5) % Plt Count 294 (150-450) k/uL Neutrophils % 62 % Lymphocytes % 27 % Monocytes % 6 % Eosinophils % 3 % Basophils % 1 % Neutrophils # 4.9 (1.3-7.7) k/uL Lymphocytes # 2.2 (1.0-4.8) k/uL Monocytes # 0.4 (0-1.0) k/uL Eosinophils # 0.2 (0-0.7) k/uL Basophils # 0.1 (0-0.2) k/uL PT (9.0-12.0) sec INR (<1.2) APTT (22.0-30.0) sec Sodium 138 (137-145) mmol/L Potassium 4.1 (3.5-5.1) mmol/L Chloride 103 (98-107) mmol/L Carbon Dioxide 24 (22-30) mmol/L Anion Gap 11 mmol/L BUN 11 (7-17) mg/dL Creatinine 0.70 (0.52-1.04) mg/dL Est GFR (MDRD) Af Amer >60 (>60 ml/min/1.73 sqM) Est GFR (MDRD) Non-Af >60 (>60 ml/min/1.73 sqM) Glucose 294 H (74-99) mg/dL Calcium 8.8 (8.4-10.2) mg/dL Magnesium 1.6 (1.6-2.3) mg/dL Total Bilirubin 0.9 (0.2-1.3) mg/dL AST 23 (14-36) U/L ALT 35 (9-52) U/L Alkaline Phosphatase 93 (38-126) U/L Total Creatine Kinase 54 (30-135) U/L CK-MB (CK-2) 1.1 (0.0-2.4) ng/mL CK-MB (CK-2) Rel Index 2.0 Troponin I 1.120 H* (0.000-0.034) ng/mL Total Protein 5.4 L (6.3-8.2) g/dL Albumin 3.0 L (3.5-5.0) g/dL Lipase 276 (23-300) U/L 11/23/17 Range/Units 21:05 WBC (3.8-10.6) k/uL RBC (3.80-5.40) m/uL Hgb (11.4-16.0) gm/dL Hct (34.0-46.0) % MCV (80.0-100.0) fL MCH (25.0-35.0) pg MCHC (31.0-37.0) g/dL RDW (11.5-15.5) % Plt Count (150-450) k/uL Neutrophils % % Lymphocytes % % Monocytes % % Eosinophils % % Basophils % % Neutrophils # (1.3-7.7) k/uL Lymphocytes # (1.0-4.8) k/uL Monocytes # (0-1.0) k/uL Eosinophils # (0-0.7) k/uL Basophils # (0-0.2) k/uL PT 10.6 (9.0-12.0) sec INR 1.1 (<1.2) APTT 22.0 (22.0-30.0) sec Sodium (137-145) mmol/L Potassium (3.5-5.1) mmol/L Chloride (98-107) mmol/L Carbon Dioxide (22-30) mmol/L Anion Gap mmol/L BUN (7-17) mg/dL Creatinine (0.52-1.04) mg/dL Est GFR (MDRD) Af Amer (>60 ml/min/1.73 sqM) Est GFR (MDRD) Non-Af (>60 ml/min/1.73 sqM) Glucose (74-99) mg/dL Calcium (8.4-10.2) mg/dL Magnesium (1.6-2.3) mg/dL Total Bilirubin (0.2-1.3) mg/dL AST (14-36) U/L ALT (9-52) U/L Alkaline Phosphatase (38-126) U/L Total Creatine Kinase (30-135) U/L CK-MB (CK-2) (0.0-2.4) ng/mL CK-MB (CK-2) Rel Index Troponin I (0.000-0.034) ng/mL Total Protein (6.3-8.2) g/dL Albumin (3.5-5.0) g/dL Lipase (23-300) U/L - Radiology Data Radiology results: report reviewed (Chest x-rays negative), image reviewed Critical Care Time Critical Care Time: Yes Total Critical Care Time: 31 Disposition Clinical Impression: Chest pain, NSTEMI (non-ST elevated myocardial infarction) Disposition: ADMITTED IP TO THIS [facility] Condition: Fair
[2017-11-23 21:30] LABS: ALT 35 U/L (9-52); AST 23 U/L (14-36); Alkaline Phosphatase 93 U/L (38-126); Anion Gap 11 mmol/L; Blood Urea Nitrogen 11 mg/dL (7-17); Calcium 8.8 mg/dL (8.4-10.2); Carbon Dioxide 24 mmol/L (22-30); Chloride 103 mmol/L (98-107); Glucose 294 mg/dL (74-99); Lipase 276 U/L (23-300); Magnesium 1.6 mg/dL (1.6-2.3); Sodium 138 mmol/L (137-145); Total Bilirubin 0.9 mg/dL (0.2-1.3); Total Protein 5.4 g/dL (6.3-8.2)
[2017-11-23] MEDS ORDERED: MORPHINE SULFATE 5 MG/ML SYRINGE IVP STA (21:33)
[2017-11-23] MEDS ORDERED: LORazepam 2 MG/ML INJ IV STA (21:33)
[2017-11-23] MEDS ORDERED: RX INFO: IV CONTRAST WAS GIVEN 1 EACH MISC MISCELLANE PRN (21:34)
[2017-11-23 21:36] LABS: INR 1.1 (<1.2); Prothrombin Time 10.6 sec (9.0-12.0)
[2017-11-23 21:37] LABS: Potassium 4.1 mmol/L (3.5-5.1)
[2017-11-23 21:45] LABS: Creatine Kinase MB 1.1 ng/mL (0.0-2.4)
--- NOTE | 2017-11-23 21:46 | XR ---
EXAMINATION: XR chest 2V DATE AND TIME: 11/23/2017 9:33 PM ORDERING PROVIDER: Santos Hooks DO CLINICAL INDICATION: Chest Pain TECHNIQUE: PA and lateral COMPARISON: None. DESCRIPTION: EKG leads noted. There is mild obscuration of the pulmonary vasculature bilaterally by a fine reticul ar pattern of increased density, consistent with mild interstitial phase pulmonary edema, presumably cardiogenic etiology due to the mildly enlarged cardiac silhouette which is unchanged. The pleural spaces are negative. Tortuosity of the thoracic aorta is redemonstrated, in addition to evidence of hiatal hernia, with jung wel providing increased density in the retrocardiac position. The skeletal structures are intact without focal findings, and the soft tissues are unremarkable. IMPRESSION: MILD INTERSTITIAL PHASE PULMONARY EDEMA.
[2017-11-23 21:53] LABS: Troponin I 1.12 ng/mL (0.000-0.034)
--- NOTE | 2017-11-23 22:36 | CT ---
EXAMINATION TYPE: CT angio chest DATE OF EXAM: 11/23/2017 10:24 PM COMPARISON: NONE HISTORY: Chest pain that radiates down left arm. CT DLP: 526.5 mGycm Automated exposure control for dose reduction was used. CONTRAST: CTA scan of the thorax is performed with IV Contrast, patient injected with 66 mL of Omnipaque 350, p ulmonary embolism protocol. There are 3-D post processed images.. FINDINGS: There is coarse interstitial infiltrate in the posterior lung raphael. There is small right pleural ef fusion. Heart appears slightly enlarged. Thoracic aorta is atheromatous. There is no evidence of aneu rysm. I see no definite filling defect in the pulmonary arteries. There are a few mediastinal and bronchial lymph nodes that measure up to 1.5 cm. There is no evidence of aortic dissection. I see no bony dest ructive process. IMPRESSION: NO EVIDENCE OF PULMONARY EMBOLISM. CARDIOMEGALY. ATHEROSCLEROTIC VASCULAR DISEASE. INTERSTITIAL INFIL TRATES AND RIGHT PLEURAL EFFUSION COULD RELATE TO MILD CONGESTIVE HEART FAILURE. PULMONARY INTERSTITI AL FIBROSIS CANNOT BE EXCLUDED.
[2017-11-23] MEDS ORDERED: LABETALOL 5 MG/ML VIAL MDV IVP STA (23:21)
[2017-11-23] MEDS ORDERED: MORPHINE SULFATE 5 MG/ML SYRINGE IV PRN (23:34)
[2017-11-23] MEDS ORDERED: NITROGLYCERIN SL TABS 0.4 MG TAB SUBLINGUAL PRN (23:34)
[2017-11-23] MEDS ORDERED: ASPIRIN 81 MG PO STA (23:34)
[2017-11-24 03:07] VITALS: BMI 28.3
[2017-11-24 03:20] LABS: Cholesterol 83 mg/dL (<200); HDL Cholesterol 31 mg/dL (40-60); LDL Cholesterol,Calculated 19 mg/dL (0-99); Triglycerides 164 mg/dL (<150)
[2017-11-24 04:01] LABS: Troponin I 1.2 ng/mL (0.000-0.034)
[2017-11-24 06:17] LABS: Glucose,Whole Blood 212 mg/dL (75-99)
[2017-11-24] MEDS ORDERED: NITROGLYCERIN SL TABS 0.4 MG TAB SUBLINGUAL PRN ×2 (06:22→11:47)
[2017-11-24] MEDS ORDERED: MENTHOL TRANSDERM PRN (06:24)
[2017-11-24] MEDS ORDERED: LOPERAMIDE 2 MG CAP PO PRN (06:24)
[2017-11-24] MEDS: metFORMIN 500 MG TAB PO SCH ×2 (06:36→16:21)
[2017-11-24] MEDS: INSULIN ASPART 100 UNIT/ML 1 ML 10 ML VIAL SQ SCH ×4 (06:39→21:03)
[2017-11-24] MEDS: METOPROLOL TARTRATE 50 MG TAB PO SCH ×2 (08:13→20:14)
[2017-11-24] MEDS: ENOXAPARIN 40 MG/0.4 ML SYRINGE SQ SCH (08:13)
[2017-11-24] MEDS: ATORVASTATIN 40 MG TAB PO SCH (08:13)
[2017-11-24] MEDS: CLOPIDOGREL 75 MG TAB PO SCH (08:14)
[2017-11-24] MEDS: CEPHALEXIN 500 MG CAP PO SCH ×3 (08:14→22:54)
[2017-11-24] MEDS: FAMOTIDINE 20 MG TAB PO SCH (08:14)
[2017-11-24] MEDS: LISINOPRIL 5 MG TAB PO SCH ×2 (08:14→20:14)
[2017-11-24] MEDS ORDERED: ASPIRIN 325 MG TAB PO SCH (09:00)
[2017-11-24] MEDS ORDERED: ISOSORBIDE MONONITRATE ER 30 MG TAB.ER.24H PO SCH (09:00)
[2017-11-24 09:28] LABS: Creatine Kinase MB 0.8 ng/mL (0.0-2.4)
[2017-11-24 09:31] LABS: Troponin I 1.24 ng/mL (0.000-0.034)
[2017-11-24] MEDS ORDERED: LIDOCAINE 4% CREAM 5 GM TUBE TOPICAL PRN (09:46)
[2017-11-24] MEDS ORDERED: BACLOFEN 10 MG TAB PO PRN (10:36)
[2017-11-24 11:40] LABS: Glucose,Whole Blood 179 mg/dL (75-99)
--- NOTE | 2017-11-24 11:42 | P.CRDCN ---
History of Present Illness Consult date: 11/24/17 Requesting physician: Yee Sales Consult reason: chest pain Chief complaint: Chest pain History of present illness: This is a pleasant 87-year-old female with history of hyperlipidemia, diabetes, hypertension, non-smoker, who was just recently discharged from the hospital after presenting with a non-ST elevation myocardial infarction. Heart catheterization performed on that admission revealed heavily calcified right and left coronary system area severe disease involving the PDA branch of the RCA by the ostium, mid shaft left main disease in the range of 30%, severe disease involving the mid circumflex, severe disease involving the mid LAD, subsequent to that patient underwent stenting of the LAD. She was discharged home from the hospital on the seventh, yesterday the daughter said she took her out to going get a hot dog, upon her arrival home, patient states she had some aching in her bilateral wrists radiating up the arms. Her daughter gave her one sublingual nitro and the symptoms subsided. Approximately 20 minutes later patient developed bilateral arm discomfort from the elbows up to the shoulders and ultimately the discomfort went into the chest. Symptoms reminded her of what she had with her recent NH however much less severe. For this reason she came to the emergency room for further evaluation. Blood pressure on arrival here to 16/100 with a heart rate in the 80s, 95% on room air. Blood pressure this morning 158/80 with a heart rate in the 70s, 97% on 2 L oxygen. EKG showed normal sinus rhythm with lateral ST-T wave depression. Chest x-ray showed mild interstitial pulmonary edema. CTA of the chest was performed which did not reveal evidence of pulmonary embolism. Interstitial infiltrates and right pleural effusion could be related to mild congestive heart failure. Laboratory data was reviewed, CBC was normal. Sodium 138, potassium 4.1, BUN 11 , creatinine 0.7. Troponins 1.1, 1.2, 1.24. At the time of my examination this morning, patient is currently chest pain free. Past Medical History Past Medical History: CVA/TIA, Diabetes Mellitus, Hyperlipidemia, Hypertension, Myocardial Infarction (NH), Renal Disease Additional Past Medical History / Comment(s): Pt reports that in May of 2017 she was diagnosed with renal failure Last Myocardial Infarction Date:: 11/18/17 History of Any Multi-Drug Resistant Organisms: None Reported Past Surgical History: Appendectomy, Back Surgery, Cholecystectomy, Heart Catheterization With Stent Additional Past Surgical History / Comment(s): neck surgery. wrist surgery approx 2014. heart cath 11/18/16 stent to LAD Date of Last Stent Placement:: 11/18/17 Past Psychological History: Depression Smoking Status: Never smoker Past Alcohol Use History: None Reported Past Drug Use History: None Reported Medications and Allergies Home Medications Medication Instructions Recorded Confirmed Type metFORMIN HCL [Glucophage] 500 mg PO BID 12/18/15 11/23/17 History sitaGLIPtin PHOSPHATE [Januvia] 100 mg PO DAILY 12/18/15 11/23/17 History Menthol [Icy Hot] 1 patch TRANSDERM DAILY PRN 05/25/17 11/23/17 History Atorvastatin [Lipitor] 40 mg PO DAILY 11/17/17 11/23/17 History Loperamide [Imodium] 4 mg PO QID PRN 11/17/17 11/23/17 History Aspirin [Adult Low Dose Aspirin EC] 81 mg PO DAILY 11/21/17 11/23/17 History Cephalexin [Keflex] 500 mg PO Q8HR 11/21/17 11/23/17 History Clopidogrel [Plavix] 1 tab PO DAILY 11/21/17 11/23/17 History Famotidine [Pepcid] 20 mg PO DAILY 11/21/17 11/23/17 History Isosorbide Mononitrate ER [Imdur] 30 mg PO DAILY 11/21/17 11/23/17 History Lisinopril [Zestril] 1 tab PO BID 11/21/17 11/23/17 History Metoprolol Succinate (ER) [Toprol 1 tab PO DAILY 11/21/17 11/23/17 History XL] Nitroglycerin Sl Tabs [Nitrostat] 0.4 mg SUBLINGUAL Q5M PRN 11/21/17 11/23/17 History Allergies Allergy/AdvReac Type Severity Reaction Status Date / Time acetaminophen [From [place]] Allergy Rash/Hives Verified 11/23/17 20:39 hydrocodone [From [place]] Allergy Rash/Hives Verified 11/23/17 20:39 naproxen sodium [From [place]] Allergy Itching,bessie Verified 11/23/17 20:39 h Physical Exam Vitals: Vital Signs Temp Pulse Pulse Resp BP BP Pulse Ox 11/24/17 08:00 97 F L 70 18 158/81 97 11/24/17 04:00 97.0 F L 73 18 155/57 98 11/24/17 02:40 97.2 F L 78 18 134/73 97 11/24/17 01:57 77 18 141/65 98 11/24/17 01:01 77 18 177/75 97 11/23/17 23:35 97 11/23/17 23:31 72 20 190/107 97 11/23/17 20:32 99.2 F 89 18 216/100 95 Intake and Output 11/23/17 11/24/17 11/24/17 22:59 06:59 14:59 Intake Total 60 Balance 60 Intake: IV 10 0.9 10 Amount of Fluid Infused ( 50 ml) Other: Weight 74.843 kg 81.9 kg PHYSICAL EXAMINATION: HEENT: Head is atraumatic, normocephalic. Pupils equal, round. Neck is supple. There is no elevated jugular venous pressure. HEART EXAMINATION: Heart S1 and S2 no murmur or rub heard CHEST EXAMINATION: Lungs are clear with fine crackles to the bases ABDOMEN: Soft, obese, nontender. Bowel sounds are heard. No organomegaly noted. EXTREMITIES: 2+ peripheral pulses with no evidence of peripheral edema and no calf tenderness noted. Right groin soft, no evidence of hematoma, no bruit heard NEUROLOGIC patient is awake, alert and oriented -3. . Results 11/23/17 21:05 11/23/17 21:05 Cardiac Enzymes 11/23/17 11/23/17 11/24/17 Range/Units 21:05 21:05 02:49 AST 23 (14-36) U/L CK-MB (CK-2) 1.1 1.0 (0.0-2.4) ng/mL Troponin I 1.120 H* 1.200 H* (0.000-0.034) ng/mL 11/24/17 Range/Units 08:28 AST (14-36) U/L CK-MB (CK-2) 0.8 (0.0-2.4) ng/mL Troponin I 1.240 H* (0.000-0.034) ng/mL Coagulation 11/23/17 Range/Units 21:05 PT 10.6 (9.0-12.0) sec APTT 22.0 (22.0-30.0) sec Lipids 11/24/17 Range/Units 02:49 Triglycerides 164 H (<150) mg/dL Cholesterol 83 (<200) mg/dL HDL Cholesterol 31 L (40-60) mg/dL CBC 11/23/17 Range/Units 21:05 WBC 7.9 (3.8-10.6) k/uL RBC 3.83 (3.80-5.40) m/uL Hgb 11.6 (11.4-16.0) gm/dL Hct 35.2 (34.0-46.0) % Plt Count 294 (150-450) k/uL Comprehensive Metabolic Panel 11/23/17 Range/Units 21:05 Sodium 138 (137-145) mmol/L Potassium 4.1 (3.5-5.1) mmol/L Chloride 103 (98-107) mmol/L Carbon Dioxide 24 (22-30) mmol/L BUN 11 (7-17) mg/dL Creatinine 0.70 (0.52-1.04) mg/dL Glucose 294 H (74-99) mg/dL Calcium 8.8 (8.4-10.2) mg/dL AST 23 (14-36) U/L ALT 35 (9-52) U/L Alkaline Phosphatase 93 (38-126) U/L Total Protein 5.4 L (6.3-8.2) g/dL Albumin 3.0 L (3.5-5.0) g/dL Current Medications Generic Name Dose Route Start Last Admin Trade Name Freq PRN Reason Stop Dose Admin Aspirin 325 mg 11/24/17 09:00 11/24/17 08:13 Aspirin PO 325 mg DAILY REPLACED BY [facility] Administration Atorvastatin Calcium 40 mg 11/24/17 09:00 11/24/17 08:13 Lipitor PO 40 mg DAILY MYCHAL Administration Baclofen 10 mg 11/24/17 10:36 Lioresal PO TID PRN Muscle Spasm Cephalexin 500 mg 11/24/17 08:00 11/24/17 08:14 Keflex PO 500 mg Q8HR MYCHAL Administration Clopidogrel Bisulfate 75 mg 11/24/17 09:00 11/24/17 08:14 Plavix PO 75 mg DAILY MYCHAL Administration Enoxaparin Sodium 40 mg 11/24/17 09:00 11/24/17 08:13 Lovenox SQ 40 mg DAILY MYCHAL Administration Famotidine 20 mg 11/24/17 09:00 11/24/17 08:14 Pepcid PO 20 mg DAILY MYCHAL Administration Insulin Aspart 0 unit 11/24/17 07:30 11/24/17 06:39 Novolog SQ 3 unit ACHS MYCHAL Administration Protocol Isosorbide Mononitrate 30 mg 11/24/17 09:00 11/24/17 08:14 Imdur PO 30 mg DAILY MYCHAL Administration Lidocaine HCl 1 applic 11/24/17 09:46 11/24/17 10:00 Lmx 4 TOPICAL 1 applic Q4H PRN Administration Pain Linagliptin 5 mg 11/24/17 09:00 Tradjenta PO DAILY MYCHAL Lisinopril 5 mg 11/24/17 09:00 11/24/17 08:14 Zestril PO 5 mg BID MYCHAL Administration Loperamide HCl 4 mg 11/24/17 06:24 Imodium PO QID PRN Diarrhea Metformin HCl 500 mg 11/24/17 07:30 11/24/17 06:36 Glucophage PO Not Given AC-BID REPLACED BY [facility] Metoprolol Tartrate 50 mg 11/24/17 09:00 11/24/17 08:13 Lopressor PO 50 mg BID MYCHAL Administration Miscellaneous Information 1 each 11/23/17 21:34 Rx Info: Iv Contrast Was Given MISCELLANE 11/25/17 21:34 DAILY PRN Per Protocol Morphine Sulfate 4 mg 11/23/17 23:34 Morphine Sulfate IV Q5M PRN Chest Pain Nitroglycerin 0.4 mg 11/24/17 06:22 Nitrostat SUBLINGUAL Q5M PRN Chest Pain Non-Formulary Medication 1 patch 11/24/17 06:24 Menthol [Icy Hot] TRANSDERM DAILY PRN Pain Intake and Output 11/23/17 11/24/17 11/24/17 22:59 06:59 14:59 Intake Total 60 Balance 60 Intake: IV 10 0.9 10 Amount of Fluid Infused ( 50 ml) Other: Weight 74.843 kg 81.9 kg 11/23/17 21:05 11/23/17 21:05 EKG Interpretations (text) EKG shows normal sinus rhythm with T-wave inversion and mild ST depression. EKG changes similar to prior EKG. Assessment and Plan Plan: Assessment and plan #1 Bilateral arm discomfort with radiation to the chest, suggestive of acute coronary syndrome. Troponins 1.1, 1.20, 1.24. EKG shows normal sinus rhythm with lateral T-wave inversion and mild ST depression. #2 recent non-Q-wave NH with stenting of the LAD, patient also had noted disease in the circumflex and RCA, heavily calcified vessels. #3 hypertensive urgency, blood pressure 216/100 on presentation here #4 history of hypertension #5 diabetes #6 hyperlipidemia #7 moderate obesity Plan Patient presented with symptoms suggestive of acute coronary syndrome, may have been exasperated by significantly elevated blood pressure, however Troponins on a mild upward trend, and patient has known significant disease in the circumflex and RCA. Dr. Chen will speak with the patient, and further recommendations will be made. DNP note has been reviewed, I agree with a documented findings and plan of care. Patient was seen and examined.
[2017-11-24] MEDS ORDERED: ALPRAZolam 0.5 MG TAB PO PRN (11:47)
[2017-11-24] MEDS ORDERED: ATORVASTATIN 40 MG TAB PO STA (11:47)
[2017-11-24] MEDS ORDERED: SODIUM CHLORIDE 0.9% 1,000 ML in EMPTY BAG 1 BAG IV ONE (11:47)
[2017-11-24] MEDS ORDERED: ASPIRIN 325 MG TAB PO STA (11:47)
[2017-11-24] MEDS ORDERED: ALPRAZolam 0.25 MG TAB PO PRN (11:47)
--- NOTE | 2017-11-24 11:54 | P.PN ---
Progress Note - Text This is an addendum to the dictated cardiology consultation. The patient presented last week with a non-STEMI underwent stenting of her LAD. She was found to have severe diffuse disease involving the circumflex and the RCA. She presents again to the hospital with symptoms of arm and chest discomfort similar to the symptoms she had last time, improved with nitroglycerin sublingually. Her EKG shows ST and T-wave changes laterally that were noted during her last admission. She is pain-free at this time. Her left ventricle systolic function during her last visit was normal. The patient presents with non-STEMI, I doubt that she had occluded her LAD and she may have an active plaque in the left circumflex. Her left circumflex is diffusely diseased and calcified. I have discussed her case with Dr. Otto with her inspector type as well as with the patient and her family. The patient will undergo repeat cardiac catheterization today to further evaluate her symptoms and guide her treatment. The risk and the complication were discussed with her. Thank you for this consult we will follow.
[2017-11-24] MEDS: LINAGLIPTIN 5 MG TABLET PO SCH (12:12)
--- NOTE | 2017-11-24 13:11 | P.HPIM ---
History of Present Illness H&P Date: 11/24/17 This is and 87-year-old female patient of Dr. Sales with history of hypertension, hyperlipidemia, type 2 diabetes. She had a recent hospitalization and discharge 2 days ago status post non-ST elevated myocardial infarction status post stent of the LAD. Patient presents with left-sided chest pain that goes across her chest that started while she was watching TV. She also has complaints of left wrist pain. She states the pain is similar to her last admission with her myocardial infarction. She also complains of low back pain that started going down into her legs. She has had some shortness of breath without cough or sputum production. Patient came into [facility] emergency center for evaluation. Chest x-ray showed mild interstitial pulmonary edema. He was afebrile her blood pressure was 216/100. EKG was a sinus rhythm with no new acute ST changes. CTA of the chest did not reveal pulmonary embolism. Interstitial infiltrates and right pleural effusion could be related to mild heart failure. Patient is also noted to have some left rib tenderness. Review of Systems All systems: negative Constitutional: Denies chills, Denies fatigue, Denies fever, Denies weight loss Eyes: denies blurred vision, denies pain Ears, nose, mouth and throat: Denies dental pain, Denies headache, Denies mouth pain, Denies sore throat Cardiovascular: Reports chest pain, Reports shortness of breath, Denies leg edema, Denies lightheadedness, Denies syncope Respiratory: Reports dyspnea, Denies cough, Denies cough with sputum, Denies excessive sputum, Denies hemoptysis, Denies home oxygen Gastrointestinal: Denies abdominal pain, Denies diarrhea, Denies nausea, Denies vomiting Genitourinary: Denies dysuria, Denies hematuria Musculoskeletal: Denies myalgias Integumentary: Denies pruritus, Denies rash Neurological: Denies numbness, Denies weakness Psychiatric: Denies anxiety, Denies depression Endocrine: Denies fatigue, Denies weight change Past Medical History Past Medical History: Coronary Artery Disease (CAD), CVA/TIA, Diabetes Mellitus , Hyperlipidemia, Hypertension, Myocardial Infarction (OR), Renal Disease Additional Past Medical History / Comment(s): Pt reports that in May of 2017 she was diagnosed with renal failure Last Myocardial Infarction Date:: 11/18/17 History of Any Multi-Drug Resistant Organisms: None Reported Past Surgical History: Appendectomy, Back Surgery, Cholecystectomy, Heart Catheterization With Stent Additional Past Surgical History / Comment(s): neck surgery. wrist surgery approx 2014. heart cath 11/18/16 stent to LAD Date of Last Stent Placement:: 11/18/17 Past Psychological History: Depression Smoking Status: Former smoker Past Alcohol Use History: None Reported Additional Past Alcohol Use History / Comment(s): Patient was a smoker of a half a pack per day for 15 years ago 25 years ago. No illicit drug use. No alcohol use. Past Drug Use History: None Reported - Past Family History Father Additional Family Medical History / Comment(s): Father at age 91 from old age. Mother Additional Family Medical History / Comment(s): Mother at age 85 with history of lupus. Brother(s) Additional Family Medical History / Comment(s): Patient's siblings have history of coronary artery disease, diabetes, hypertension, macular degeneration. Daughter(s) Additional Family Medical History / Comment(s): Patient has 11 children; 6 daughters and 5 sons. 3 have and 2 from kidney failure and one was murdered. Medications and Allergies Home Medications Medication Instructions Recorded Confirmed Type metFORMIN HCL [Glucophage] 500 mg PO BID 12/18/15 11/23/17 History sitaGLIPtin PHOSPHATE [Januvia] 100 mg PO DAILY 12/18/15 11/23/17 History Menthol [Icy Hot] 1 patch TRANSDERM DAILY PRN 05/25/17 11/23/17 History Atorvastatin [Lipitor] 40 mg PO DAILY 11/17/17 11/23/17 History Loperamide [Imodium] 4 mg PO QID PRN 11/17/17 11/23/17 History Aspirin [Adult Low Dose Aspirin EC] 81 mg PO DAILY 11/21/17 11/23/17 History Cephalexin [Keflex] 500 mg PO Q8HR 11/21/17 11/23/17 History Clopidogrel [Plavix] 1 tab PO DAILY 11/21/17 11/23/17 History Famotidine [Pepcid] 20 mg PO DAILY 11/21/17 11/23/17 History Isosorbide Mononitrate ER [Imdur] 30 mg PO DAILY 11/21/17 11/23/17 History Lisinopril [Zestril] 1 tab PO BID 11/21/17 11/23/17 History Metoprolol Succinate (ER) [Toprol 1 tab PO DAILY 11/21/17 11/23/17 History XL] Nitroglycerin Sl Tabs [Nitrostat] 0.4 mg SUBLINGUAL Q5M PRN 11/21/17 11/23/17 History Allergies Allergy/AdvReac Type Severity Reaction Status Date / Time acetaminophen [From [place]] Allergy Rash/Hives Verified 11/23/17 20:39 hydrocodone [From [place]] Allergy Rash/Hives Verified 11/23/17 20:39 naproxen sodium [From [place]] Allergy Itching,bessie Verified 11/23/17 20:39 h Physical Exam Vitals: Vital Signs Temp Pulse Pulse Resp BP BP Pulse Ox 11/24/17 08:00 97 F L 70 18 158/81 97 11/24/17 04:00 97.0 F L 73 18 155/57 98 11/24/17 02:40 97.2 F L 78 18 134/73 97 11/24/17 01:57 77 18 141/65 98 11/24/17 01:01 77 18 177/75 97 11/23/17 23:35 97 11/23/17 23:31 72 20 190/107 97 11/23/17 20:32 99.2 F 89 18 216/100 95 Intake and Output 11/23/17 11/24/17 11/24/17 22:59 06:59 14:59 Intake Total 60 Balance 60 Intake: IV 10 0.9 10 Amount of Fluid Infused ( 50 ml) Other: Weight 74.843 kg 81.9 kg Gen: This is an obese 87-year-old female. She is sitting up in bed and appears to be in no acute distress. HEENT: Head is atraumatic, normocephalic. Pupils equal, round. Sclerae is anicteric. NECK: Supple. No JVD. No lymphadenopathy. No thyromegaly. LUNGS: Clear to auscultation and diminished to the bases. No intercostal retractions. HEART: Regular rate and rhythm. No murmur. ABDOMEN: Soft. Bowel sounds are present. No masses. No tenderness. EXTREMITIES: No pedal edema. No calf tenderness. Dorsalis pedis +2 bilaterally. NEUROLOGICAL: Patient is awake, alert and oriented x3. Cranial nerves 2 through 12 are grossly intact. Results CBC & Chem 7: 11/23/17 21:05 11/23/17 21:05 Labs: Abnormal Lab Results - Last 24 Hours (Table) 11/23/17 11/23/17 11/24/17 Range/Units 21:05 21:05 02:49 Glucose 294 H (74-99) mg/dL POC Glucose (mg/dL) (75-99) mg/dL Troponin I 1.120 H* 1.200 H* (0.000-0.034) ng/mL Total Protein 5.4 L (6.3-8.2) g/dL Albumin 3.0 L (3.5-5.0) g/dL Triglycerides (<150) mg/dL HDL Cholesterol (40-60) mg/dL 11/24/17 11/24/17 11/24/17 Range/Units 02:49 06:04 08:28 Glucose (74-99) mg/dL POC Glucose (mg/dL) 212 H (75-99) mg/dL Troponin I 1.240 H* (0.000-0.034) ng/mL Total Protein (6.3-8.2) g/dL Albumin (3.5-5.0) g/dL Triglycerides 164 H (<150) mg/dL HDL Cholesterol 31 L (40-60) mg/dL Thrombosis Risk Factor Assmnt - DVT/VTE Prophylaxis DVT/VTE Prophylaxis: Pharmacologic Prophylaxis ordered - Choose All That Apply Any of the Below Risk Factors Present?: No Other Risk Factors: No Other congenital or acquired thrombophilia - If yes, enter type in comment: No Thrombosis Risk Factor Assessment Level: Very Low Risk Assessment and Plan Plan: 1. Non-ST elevated myocardial infarction with known significant disease in the circumflex and RCA. Cardiology is on consult and For heart catheterization today. Continue aspirin 81 mg daily, Lipitor 40 mg daily, Plavix 75 mg daily, Imdur 60 mg daily, Lopressor 50 mg twice daily. 2. Recent non-ST elevated myocardial infarction status post stenting of the LAD on admission November 18. Continue as in #1. 3. Hyperlipidemia. Continue Lipitor. 4. Recent urinary tract infection. Continue Keflex. 5. Diabetes mellitus type 2. Continue Tradjenta 5 mg daily, metformin will be on hold, insulin scale. 6. Hypertension. Continue lisinopril and Lopressor. 7. Gastrointestinal prophylaxis. Pepcid. 8. DVT prophylaxis. Lovenox. Patient will be admitted to the hospital for a minimum of 2 night stay. Discharge plan: Return home Impression and plan of care have been directed as dictated by the signing physician. Donita Padron nurse practitioner acting as scribe for signing physician.
[2017-11-24] MEDS ORDERED: IV FLUID CONTINUATION 1,000 ML IV ONE (13:13)
[2017-11-24] MEDS ORDERED: MIDAZOLAM 2 MG/2 ML VIAL ONE (13:27)
[2017-11-24] MEDS ORDERED: MIDAZOLAM 2 MG/2 ML VIAL IV ONE (13:35)
[2017-11-24] MEDS ORDERED: LIDOCAINE 2% INJ 20 MG/ML SQ ONE (13:39)
[2017-11-24] MEDS ORDERED: IOHEXOL 350 MG/ML 125ML BOTTLE INJ ONE (13:55)
[2017-11-24] MEDS ORDERED: RX INFO: IV CONTRAST WAS GIVEN 1 EACH MISC MISCELLANE PRN (14:06)
[2017-11-24] MEDS ORDERED: SODIUM CHLORIDE 0.9% 1,000 ML IV SCH (14:15)
--- NOTE | 2017-11-24 14:33 | CC ---
CARDIAC CATHETERIZATION REPORT DATE OF SERVICE: November 24, 2017. PERFORMING PHYSICIAN: Dean Otto MD, audio visual secretary. PROCEDURE PERFORMED: 1. Selective right and left coronary angiogram. 2. Left heart catheterization. INDICATION: This is a pleasant 87-year-old female patient who was admitted to the hospital recently with chest discomfort and was ruled in for acute non ST elevation myocardial infarction. She underwent a heart catheterization and was found to have severe triple-vessel CAD with critical disease involving the LAD. At that point, the patient underwent successful stenting of the mid LAD using 2.25 x 12 and 2.25 x 16 PROMUS drug-eluting stents with good angiographic results and without any complication. She was discharged home in stable medical condition and presented back to the hospital with chest discomfort. She was seen and evaluated by Dr. Chen, who discussed with the patient the options between medical treatment versus proceeding with a heart catheterization and the patient chose to proceed with a heart catheterization. APPROACH: Right common femoral artery. COMPLICATION: None. LEVEL OF SEDATION: Moderate with sedation length of 20 minutes. PROCEDURE DESCRIPTION: After obtaining informed consent, the patient was brought to the cardiac label printer. The right common femoral artery was cannulated using micropuncture technique under ultrasound guidance, the micropuncture wire passed easily. Then I placed a 6-Wolof sheath in the right common femoral artery. Subsequently I did selective right and left coronary angiogram using JR4 and JL4 catheters. The heart catheterization was performed using the JR4 catheter which flipped and crossed the aortic valve. Then I did pullback per protocol. The procedure was completed without any complication. SELECTIVE CORONARY ANGIOGRAM: 1. The right coronary artery is a large caliber vessel and it is a dominant vessel. The proximal RCA appeared to be angiographically normal. The mid RCA has mild disease only. The RCA distally bifurcates into PDA and PLV branches. The PDA branch is a small caliber vessel with ostial disease appeared to be in the range of 70%. The PLV branch of the RCA is a larger vessel with mild diffuse disease only. 2. The left main: The left main is a is calcified and does have disease appeared to be in the range of 30% in the mid shaft as well as in the distal portion. 3. The left circumflex is a small to medium caliber vessel and it is a nondominant vessel. The proximal left circumflex appeared to have mild disease only and gives rise into a small to medium obtuse marginal branch which has mild to moderate disease in the proximal portion. The mid left circumflex has a lesion appeared to be in the range of 80% to 90%. This is by the bifurcation of second OM, which is also a small caliber vessel with mild disease only. The left circumflex distally appeared to have mild disease only. 4. The left anterior descending artery: The proximal LAD appeared to have mild disease only. The mid LAD is stented and the stents are patent. The LAD distally appeared to have mild to moderate diffuse disease. The LAD gives rise into 2 diagonal branches in the midportion and both have mild to moderate diffuse disease. 5. HEMODYNAMICS: The left ventricular end-diastolic pressure was 24 mmHg with mild gradient around 10-12 mmHg was identified across the aortic valve. CONCLUSION: 1. Heavily calcified right and left coronary systems. 2. Severe disease involving the ostial PDA branch of the RCA, which is small caliber vessel. 3. Mild disease involving the left main, which is heavily calcified. 4. Severe disease involving a small caliber left circumflex coronary artery. 5. Patent stent in the mid LAD. 6. Mild gradient across the aortic valve. POSTPROCEDURE MANAGEMENT: Maximize medical treatment and follow up with the patient. MMODL / IJN: [id number] /
--- NOTE | 2017-11-24 14:36 | LTR ---
DATE OF SERVICE: November 24, 2017. Dear Dr. Sales: Mrs. Tracy Mcclain presented back to the hospital complaining of chest discomfort and was ruled in for acute non ST elevation myocardial infarction. As you remember, she was admitted to the hospital last week with acute non STEMI and she underwent stenting of the LAD at that point. This time, she underwent a heart catheterization and that revealed patent stent in the LAD with severe disease involving the PDA branch of the RCA as well as the left circumflex, but both are small caliber vessels. Maximize medical treatment is recommended at this point of time. Thank you for allowing us to participate in her care. Sincerely, PHILIPPL / ELIZABETHN: [id number] /
[2017-11-24 16:19] VITALS: RESP 18
[2017-11-24 16:22] LABS: Glucose,Whole Blood 193 mg/dL (75-99)
[2017-11-24] MEDS: RANOLAZINE 500 MG TAB.ER.12H PO SCH (20:13)
[2017-11-24 20:55] LABS: Glucose,Whole Blood 150 mg/dL (75-99)
--- NOTE | 2017-11-24 20:58 | XR ---
PROCEDURE: XR ribs LT 4 views DATE AND TIME: 11/24/2017 8:45 PM REFERRING PHYSICIAN: Donita Padron CLINICAL INDICATION: PHH, rib pain, TECHNIQUE: Department protocol. COMPARISON: None FINDINGS: There is no fracture or malalignment. No pleural effusion or pneumothorax. No focal skeleta l finding. The visualized lungs and the soft tissues are unremarkable. IMPRESSION: NO ACUTE PROCESS.
[2017-11-25] MEDS: metFORMIN 500 MG TAB PO SCH (05:57)
[2017-11-25 05:58] LABS: Glucose,Whole Blood 163 mg/dL (75-99)
[2017-11-25] MEDS: INSULIN ASPART 100 UNIT/ML 1 ML 10 ML VIAL SQ SCH (06:25)
[2017-11-25] MEDS ORDERED: ASPIRIN 81 MG PO SCH (09:00)
[2017-11-25] MEDS ORDERED: ISOSORBIDE MONONITRATE ER 60 MG TAB.ER.24H PO SCH (09:00)
[2017-11-25] MEDS: CEPHALEXIN 500 MG CAP PO SCH (09:28)
[2017-11-25] MEDS: ATORVASTATIN 40 MG TAB PO SCH (09:28)
[2017-11-25] MEDS: LINAGLIPTIN 5 MG TABLET PO SCH (09:28)
[2017-11-25] MEDS: FAMOTIDINE 20 MG TAB PO SCH (09:28)
[2017-11-25] MEDS: LISINOPRIL 5 MG TAB PO SCH (09:28)
[2017-11-25] MEDS: ENOXAPARIN 40 MG/0.4 ML SYRINGE SQ SCH (09:28)
[2017-11-25] MEDS: METOPROLOL TARTRATE 50 MG TAB PO SCH (09:28)
[2017-11-25] MEDS: CLOPIDOGREL 75 MG TAB PO SCH (09:28)
[2017-11-25] MEDS: RANOLAZINE 500 MG TAB.ER.12H PO SCH (09:29)
[2017-11-25 09:42] VITALS: BP 146/62; PULSE 85; TEMP 97.5
--- NOTE | 2017-11-25 13:25 | P.DS ---
Providers Date of admission: 11/23/17 23:34 Expected date of discharge: 11/25/17 Attending physician: Yee Sales Consults: 11/23/17 23:35 Consult Physician Urgent Consulting Provider: Dean Otto Consult Reason/Comments: cp Do you want consulting provider notified?: Yes Primary care physician: Yee Sales [facility] Course: This is and 87-year-old female patient of Dr. Sales with history of hypertension, hyperlipidemia, type 2 diabetes. She had a recent hospitalization and discharge 2 days ago status post non-ST elevated myocardial infarction status post stent of the LAD. Patient presents with left-sided chest pain that goes across her chest that started while she was watching TV. She also has complaints of left wrist pain. She states the pain is similar to her last admission with her myocardial infarction. She also complains of low back pain that started going down into her legs. She has had some shortness of breath without cough or sputum production. Patient came into [facility] emergency center for evaluation. Chest x-ray showed mild interstitial pulmonary edema. He was afebrile her blood pressure was 216/100. EKG was a sinus rhythm with no new acute ST changes. CTA of the chest did not reveal pulmonary embolism. Interstitial infiltrates and right pleural effusion could be related to mild heart failure. Patient is also noted to have some left rib tenderness. 11/25: Patient underwent heart catheterization with Dr. Otto finding heavily calcified right and left coronary systems. Severe disease involving the ostial PDA branch of the RCA which is a small caliber vessel. Mild disease involving the left main which is heavily calcified. Severe disease involving small- caliber left circumflex coronary artery. Patent stent in the mid LAD. Mild gradient across the aortic valve. Recommendations are to maximize medical treatment. Patient has been started on Ranexa and metoprolol dose increased, Imdur increased. Patient noted to have a hemoglobin A1c of of 9.5 and glimepiride added. Rib x-rays were negative for fracture. Patient will be discharged home today in stable condition. Discharge diagnoses: 1. Non-ST elevated myocardial infarction status post heart catheterization, left rib pain secondary to costochondritis 2. Recent non-ST elevated myocardial infarction status post stenting of the LAD on admission November 18. 3. Hyperlipidemia. 4. Recent urinary tract infection. 5. Diabetes mellitus type 2 uncontrolled with hemoglobin A1c of 9.5. 6. Hypertension. Discharge plan: Return home Impression and plan of care have been directed as dictated by the signing physician. Donita Padron nurse practitioner acting as scribe for signing physician. Patient Condition at Discharge: Good Plan - Discharge Summary Discharge Rx Participant: No New Discharge Prescriptions: New Glimepiride [Amaryl] 1 mg PO BID #60 tab Isosorbide Mononitrate ER [Imdur] 60 mg PO DAILY #30 tab.er.24h Lidocaine 4% Cream [Lmx 4] 1 applic TOPICAL Q4H PRN #1 tube PRN Reason: Pain Metoprolol Tartrate [Lopressor] 50 mg PO BID #60 tab Ranolazine [Ranexa] 1,000 mg PO Q12HR #60 tab.er.12h Continue metFORMIN HCL [Glucophage] 500 mg PO BID sitaGLIPtin PHOSPHATE [Januvia] 100 mg PO DAILY Menthol [Icy Hot] 1 patch TRANSDERM DAILY PRN PRN Reason: Pain Loperamide [Imodium] 4 mg PO QID PRN PRN Reason: Diarrhea Atorvastatin [Lipitor] 40 mg PO DAILY Aspirin [Adult Low Dose Aspirin EC] 81 mg PO DAILY Clopidogrel [Plavix] 1 tab PO DAILY Lisinopril [Zestril] 1 tab PO BID Famotidine [Pepcid] 20 mg PO DAILY Nitroglycerin Sl Tabs [Nitrostat] 0.4 mg SUBLINGUAL Q5M PRN PRN Reason: Chest Pain Cephalexin [Keflex] 500 mg PO Q8HR Discontinued Metoprolol Succinate (ER) [Toprol XL] 1 tab PO DAILY Isosorbide Mononitrate ER [Imdur] 30 mg PO DAILY Discharge Medication List metFORMIN HCL [Glucophage] 500 mg PO BID 12/18/15 [History] sitaGLIPtin PHOSPHATE [Januvia] 100 mg PO DAILY 12/18/15 [History] Menthol [Icy Hot] 1 patch TRANSDERM DAILY PRN 05/25/17 [History] Atorvastatin [Lipitor] 40 mg PO DAILY 11/17/17 [History] Loperamide [Imodium] 4 mg PO QID PRN 11/17/17 [History] Aspirin [Adult Low Dose Aspirin EC] 81 mg PO DAILY 11/21/17 [History] Cephalexin [Keflex] 500 mg PO Q8HR 11/21/17 [History] Clopidogrel [Plavix] 1 tab PO DAILY 11/21/17 [History] Famotidine [Pepcid] 20 mg PO DAILY 11/21/17 [History] Lisinopril [Zestril] 1 tab PO BID 11/21/17 [History] Nitroglycerin Sl Tabs [Nitrostat] 0.4 mg SUBLINGUAL Q5M PRN 11/21/17 [History] Glimepiride [Amaryl] 1 mg PO BID #60 tab 11/25/17 [Rx] Isosorbide Mononitrate ER [Imdur] 60 mg PO DAILY #30 tab.er.24h 11/25/17 [Rx] Lidocaine 4% Cream [Lmx 4] 1 applic TOPICAL Q4H PRN #1 tube 11/25/17 [Rx] Metoprolol Tartrate [Lopressor] 50 mg PO BID #60 tab 11/25/17 [Rx] Ranolazine [Ranexa] 1,000 mg PO Q12HR #60 tab.er.12h 11/25/17 [Rx] Follow up Appointment(s)/Referral(s): Yee Sales MD [Primary Care Provider] - 11/30/17 10:00 am (WEDNESDAY WITH GRAPHICS MANAGER) Dean Otto MD [STAFF PHYSICIAN] - 12/02/17 1:15 pm (tomorr appointment is cancelled 11/26/17 new appointment is on the at 1:15) Patient Instructions/Handouts: *Surgery [facility] - After Heart Catheterization - [facility] Instructions, Left Heart Catheterization (DC) Discharge Disposition: HOME SELF-CARE
== END 2017-11-25 10:31 | disposition home or self-care (01) | DRG 281 ==
LOC: EC 20:27 → 6SEL 23:34
PROVIDERS: ADMIT Family Medicine; ATTEND Family Medicine
PROC: B2111ZZ Fluoroscopy of Multiple Coronary Arteries using Low Osmolar Contrast (ICD-10-PCS; 2017-11-24)
PROC: 4A023N7 Measurement of Cardiac Sampling and Pressure, Left Heart, Percutaneous Approach (ICD-10-PCS; principal; 2017-11-24 13:13)
DX: I22.2 Subsequent non-ST elevation (NSTEMI) myocardial infarction (principal); J90 Pleural effusion, not elsewhere classified; E11.65 Type 2 diabetes mellitus with hyperglycemia; I21.9 Acute myocardial infarction, unspecified; E66.9 Obesity, unspecified; E78.5 Hyperlipidemia, unspecified; F32.9 Major depressive disorder, single episode, unspecified; I10 Essential (primary) hypertension; I16.0 Hypertensive urgency; I25.10 Atherosclerotic heart disease of native coronary artery without angina pectoris; M94.0 Chondrocostal junction syndrome [Tietze]; M25.532 Pain in left wrist; M54.5 Low back pain; Z79.02 Long term (current) use of antithrombotics/antiplatelets; Z79.82 Long term (current) use of aspirin; Z79.84 Long term (current) use of oral hypoglycemic drugs; Z79.899 Other long term (current) drug therapy; Z87.891 Personal history of nicotine dependence; Z86.73 Personal history of transient ischemic attack (TIA), and cerebral infarction without residual deficits; Z95.5 Presence of coronary angioplasty implant and graft; Z90.49 Acquired absence of other specified parts of digestive tract; Z88.6 Allergy status to analgesic agent; Z88.5 Allergy status to narcotic agent; Z82.49 Family history of ischemic heart disease and other diseases of the circulatory system
CPT/HCPCS: 36415; 71046; 71275; 80053; 80061; 82550; 82553; 83690; 83735; 84484; 85025; 85610; 85730; 93005; 93458; 96374; 96375; 99291

== ENCOUNTER 2017-12-31 00:28 | Emergency (ER) | payer MEDICARE, BC ==
[2017-12-31 00:48] VITALS: TEMP 97.9
[2017-12-31] MEDS ORDERED: SODIUM CHLORIDE 0.9% 1,000 ML IV STA (01:11)
[2017-12-31] MEDS ORDERED: METOCLOPRAMIDE 5 MG/ML 2 ML VIAL IVP STA ×2 (01:11)
[2017-12-31] MEDS ORDERED: SODIUM CHLORIDE 0.9% 500 ML IV STA (01:11)
[2017-12-31] MEDS ORDERED: FAMOTIDINE 20 MG/2 ML VIAL IV STA (01:11)
--- NOTE | 2017-12-31 01:18 | ED ---
General Adult HPI - General Chief complaint: Nausea/Vomiting/Diarrhea Stated complaint: NVD Time Seen by Provider: 12/31/17 00:39 Source: patient, family, EMS, RN notes reviewed Mode of arrival: EMS Limitations: no limitations - History of Present Illness Initial comments: Patient is a pleasant 87-year-old female presenting to the emergency Department with daughter for nausea and vomiting. Onset of symptoms was around 7:00. Patient was somewhat more fatigued than normal earlier in the day. Patient has vomited several times. Patient still complains of nausea and fatigue. Patient denies any pain. No chest pain or abdominal pain. No confusion from patient's baseline dementia. No isolated area of weakness. Patient has not had her evening medicines. - Related Data Home Medications Medication Instructions Recorded Confirmed metFORMIN HCL [Glucophage] 500 mg PO BID 12/18/15 11/23/17 sitaGLIPtin PHOSPHATE [Januvia] 100 mg PO DAILY 12/18/15 11/23/17 Menthol [Icy Hot] 1 patch TRANSDERM DAILY PRN 05/25/17 11/23/17 Atorvastatin [Lipitor] 40 mg PO DAILY 11/17/17 11/23/17 Loperamide [Imodium] 4 mg PO QID PRN 11/17/17 11/23/17 Aspirin [Adult Low Dose Aspirin EC] 81 mg PO DAILY 11/21/17 11/23/17 Cephalexin [Keflex] 500 mg PO Q8HR 11/21/17 11/23/17 Clopidogrel [Plavix] 1 tab PO DAILY 11/21/17 11/23/17 Famotidine [Pepcid] 20 mg PO DAILY 11/21/17 11/23/17 Lisinopril [Zestril] 1 tab PO BID 11/21/17 11/23/17 Nitroglycerin Sl Tabs [Nitrostat] 0.4 mg SUBLINGUAL Q5M PRN 11/21/17 11/23/17 Previous Rx's Medication Instructions Recorded Glimepiride [Amaryl] 1 mg PO BID #60 tab 11/25/17 Isosorbide Mononitrate ER [Imdur] 60 mg PO DAILY #30 tab.er.24h 11/25/17 Lidocaine 4% Cream [Lmx 4] 1 applic TOPICAL Q4H PRN #1 tube 11/25/17 Metoprolol Tartrate [Lopressor] 50 mg PO BID #60 tab 11/25/17 Ranolazine [Ranexa] 1,000 mg PO Q12HR #60 tab.er.12h 11/25/17 Ondansetron Odt [Zofran Odt] 4 mg PO Q8HR PRN #10 tab 12/31/17 Sulfamethox-Tmp 800-160Mg [Bactrim 1 each PO Q12HR #14 tab 12/31/17 DS 800-160 mg] Allergies Allergy/AdvReac Type Severity Reaction Status Date / Time acetaminophen [From [place]] Allergy Rash/Hives Verified 12/31/17 00:48 hydrocodone [From [place]] Allergy Rash/Hives Verified 12/31/17 00:48 naproxen sodium [From [place]] Allergy Itching,bessie Verified 12/31/17 00:48 h Review of Systems ROS Statement: Those systems with pertinent positive or pertinent negative responses have been documented in the HPI. ROS Other: All systems not noted in ROS Statement are negative. Constitutional: Denies: fever Eyes: Denies: eye pain ENT: Denies: ear pain Respiratory: Denies: cough Cardiovascular: Denies: chest pain, palpitations Endocrine: Denies: fatigue Gastrointestinal: Reports: nausea, vomiting. Denies: abdominal pain, diarrhea Genitourinary: Denies: dysuria Musculoskeletal: Denies: back pain Skin: Denies: rash Neurological: Denies: headache Past Medical History Past Medical History: Coronary Artery Disease (CAD), CVA/TIA, Diabetes Mellitus , Hyperlipidemia, Hypertension, Myocardial Infarction ([place]), Renal Disease Additional Past Medical History / Comment(s): Pt reports that in May of 2017 she was diagnosed with renal failure Last Myocardial Infarction Date:: 11/18/17 History of Any Multi-Drug Resistant Organisms: None Reported Past Surgical History: Appendectomy, Back Surgery, Cholecystectomy, Heart Catheterization With Stent Additional Past Surgical History / Comment(s): neck surgery. wrist surgery approx 2014. heart cath 11/18/16 stent to LAD Date of Last Stent Placement:: 11/18/17 Past Psychological History: Depression Smoking Status: Former smoker Past Alcohol Use History: None Reported Past Drug Use History: None Reported - Past Family History Father Additional Family Medical History / Comment(s): Father at age 91 from old age. Mother Additional Family Medical History / Comment(s): Mother at age 85 with history of lupus. Brother(s) Additional Family Medical History / Comment(s): Patient's siblings have history of coronary artery disease, diabetes, hypertension, macular degeneration. Daughter(s) Additional Family Medical History / Comment(s): Patient has 11 children; 6 daughters and 5 sons. 3 have and 2 from kidney failure and one was murdered. General Exam Limitations: no limitations General appearance: alert, in no apparent distress Head exam: Present: atraumatic Eye exam: Present: normal appearance, PERRL ENT exam: Present: normal oropharynx Neck exam: Present: normal inspection Respiratory exam: Present: normal lung sounds bilaterally Cardiovascular Exam: Present: regular rate, normal rhythm GI/Abdominal exam: Present: soft. Absent: distended, tenderness Extremities exam: Present: normal inspection Neurological exam: Present: alert, CN II-XII intact. Absent: motor sensory deficit Expanded Patient oriented to: Absent: time (Patient states the year is 2016) Psychiatric exam: Present: normal affect, normal mood Skin exam: Present: normal color Course Vital Signs 12/31/17 12/31/17 12/31/17 00:38 01:48 02:00 Temperature 97.9 F Pulse Rate 68 66 61 Respiratory 20 18 20 Rate Blood Pressure 233/97 210/83 203/74 O2 Sat by Pulse 92 L 97 97 Oximetry 12/31/17 12/31/17 02:38 03:00 Temperature Pulse Rate 63 69 Respiratory 20 18 Rate Blood Pressure 196/76 197/77 O2 Sat by Pulse 97 97 Oximetry EKG Findings - EKG Comments: EKG Findings:: Sinus rhythm at 62. First 3 AV block with a NM of 226. QRS 112. QT 392. QTC 499. Left axis. Septal Q waves. Borderline inferior Q waves. Medical Decision Making - Medical Decision Making Patient reevaluated and resting comfortably in bed. Patient states she does feel better and requests discharge home. Patient and daughter updated on results and need for follow-up. - Lab Data Result diagrams: 12/31/17 00:52 12/31/17 01:40 Lab Results 12/31/17 12/31/17 12/31/17 Range/Units 00:52 01:40 01:40 WBC 7.5 (3.8-10.6) k/uL RBC 4.20 (3.80-5.40) m/uL Hgb 13.1 (11.4-16.0) gm/dL Hct 41.6 (34.0-46.0) % MCV 99.0 D (80.0-100.0) fL MCH 31.2 (25.0-35.0) pg MCHC 31.5 (31.0-37.0) g/dL RDW 13.6 (11.5-15.5) % Plt Count 302 (150-450) k/uL Neutrophils % 72 % Lymphocytes % 17 % Monocytes % 8 % Eosinophils % 1 % Basophils % 0 % Neutrophils # 5.4 (1.3-7.7) k/uL Lymphocytes # 1.3 (1.0-4.8) k/uL Monocytes # 0.6 (0-1.0) k/uL Eosinophils # 0.1 (0-0.7) k/uL Basophils # 0.0 (0-0.2) k/uL Sodium 140 (137-145) mmol/L Potassium 5.2 H (3.5-5.1) mmol/L Chloride 105 (98-107) mmol/L Carbon Dioxide 24 (22-30) mmol/L Anion Gap 11 mmol/L BUN 20 H (7-17) mg/dL Creatinine 0.80 (0.52-1.04) mg/dL Est GFR (MDRD) Af Amer >60 (>60 ml/min/1.73 sqM) Est GFR (MDRD) Non-Af >60 (>60 ml/min/1.73 sqM) Glucose 213 H (74-99) mg/dL Calcium 8.6 (8.4-10.2) mg/dL Total Bilirubin 1.0 (0.2-1.3) mg/dL AST 15 (14-36) U/L ALT 21 (9-52) U/L Alkaline Phosphatase 72 (38-126) U/L Total Creatine Kinase 24 L (30-135) U/L CK-MB (CK-2) 0.5 (0.0-2.4) ng/mL CK-MB (CK-2) Rel Index 2.1 Troponin I <0.012 (0.000-0.034) ng/mL Total Protein 5.5 L (6.3-8.2) g/dL Albumin 3.2 L (3.5-5.0) g/dL Amylase 35 (30-110) U/L Lipase 109 (23-300) U/L Urine Color Urine Appearance (Clear) Urine pH (5.0-8.0) Ur Specific [place] (1.001-1.035) Urine Protein (Negative) Urine Glucose (UA) (Negative) Urine Ketones (Negative) Urine Blood (Negative) Urine Nitrite (Negative) Urine Bilirubin (Negative) Urine Urobilinogen (<2.0) mg/dL Ur Leukocyte Esterase (Negative) Urine RBC (0-5) /hpf Urine WBC (0-5) /hpf Urine WBC Clumps (None) /hpf Ur Squamous Epith Cells (0-4) /hpf Urine Bacteria (None) /hpf Hyaline Casts (0-2) /lpf Urine Mucus (None) /hpf 12/31/17 Range/Units 02:52 WBC (3.8-10.6) k/uL RBC (3.80-5.40) m/uL Hgb (11.4-16.0) gm/dL Hct (34.0-46.0) % MCV (80.0-100.0) fL MCH (25.0-35.0) pg MCHC (31.0-37.0) g/dL RDW (11.5-15.5) % Plt Count (150-450) k/uL Neutrophils % % Lymphocytes % % Monocytes % % Eosinophils % % Basophils % % Neutrophils # (1.3-7.7) k/uL Lymphocytes # (1.0-4.8) k/uL Monocytes # (0-1.0) k/uL Eosinophils # (0-0.7) k/uL Basophils # (0-0.2) k/uL Sodium (137-145) mmol/L Potassium (3.5-5.1) mmol/L Chloride (98-107) mmol/L Carbon Dioxide (22-30) mmol/L Anion Gap mmol/L BUN (7-17) mg/dL Creatinine (0.52-1.04) mg/dL Est GFR (MDRD) Af Amer (>60 ml/min/1.73 sqM) Est GFR (MDRD) Non-Af (>60 ml/min/1.73 sqM) Glucose (74-99) mg/dL Calcium (8.4-10.2) mg/dL Total Bilirubin (0.2-1.3) mg/dL AST (14-36) U/L ALT (9-52) U/L Alkaline Phosphatase (38-126) U/L Total Creatine Kinase (30-135) U/L CK-MB (CK-2) (0.0-2.4) ng/mL CK-MB (CK-2) Rel Index Troponin I (0.000-0.034) ng/mL Total Protein (6.3-8.2) g/dL Albumin (3.5-5.0) g/dL Amylase (30-110) U/L Lipase (23-300) U/L Urine Color Yellow Urine Appearance Cloudy H (Clear) Urine pH 5.5 (5.0-8.0) Ur Specific [place] 1.010 (1.001-1.035) Urine Protein 1+ H (Negative) Urine Glucose (UA) Negative (Negative) Urine Ketones Negative (Negative) Urine Blood Negative (Negative) Urine Nitrite Negative (Negative) Urine Bilirubin Negative (Negative) Urine Urobilinogen <2.0 (<2.0) mg/dL Ur Leukocyte Esterase Small H (Negative) Urine RBC 2 (0-5) /hpf Urine WBC 53 H (0-5) /hpf Urine WBC Clumps Rare H (None) /hpf Ur Squamous Epith Cells <1 (0-4) /hpf Urine Bacteria Rare H (None) /hpf Hyaline Casts 4 H (0-2) /lpf Urine Mucus Rare H (None) /hpf Disposition Clinical Impression: Nausea and vomiting, Urinary tract infection Disposition: HOME SELF-CARE Condition: Stable Instructions: Acute Nausea and Vomiting (ED), Urinary Tract Infection in Women (ED) Additional Instructions: Please follow-up with Dr. Sales in the next couple of days for recheck. Return for not tolerating fluids, pain or weakness, fevers, worsening symptoms or other concerns. Please have your doctor follow-up with urine culture results. Prescriptions: Ondansetron Odt [Zofran Odt] 4 mg PO Q8HR PRN #10 tab PRN Reason: Nausea Sulfamethox-Tmp 800-160Mg [Bactrim DS 800-160 mg] 1 each PO Q12HR #14 tab Referrals: Yee Sales MD [Primary Care Provider] - 1-2 days Time of Disposition: 03:10
--- NOTE | 2017-12-31 01:33 | XR ---
EXAMINATION TYPE: XR KUB DATE OF EXAM: 12/31/2017 COMPARISON: NONE HISTORY: Vomiting TECHNIQUE: 2 views FINDINGS: There is no sign of intestinal obstruction or pneumoperitoneum. Fecal pattern is normal. Reina ng bases are clear. There are no definite pathologic calcifications over the kidneys. There are spond ylotic changes in the lumbar spine. There are surgical clips in the pelvis on the left side. IMPRESSION: Nonacute abdomen.
[2017-12-31 01:39] LABS: Basophils % (A) 0 %; Eosinophils # (A) 0.1 k/uL (0-0.7); Eosinophils % (A) 1 %; HCT 41.6 % (34.0-46.0); HGB 13.1 gm/dL (11.4-16.0); Lymphocytes # (A) 1.3 k/uL (1.0-4.8); Lymphocytes % (A) 17 %; MCH 31.2 pg (25.0-35.0); MCHC 31.5 g/dL (31.0-37.0); Monocytes # (A) 0.6 k/uL (0-1.0); Monocytes % (A) 8 %; Neutrophils # (A) 5.4 k/uL (1.3-7.7); Neutrophils % (A) 72 %; Platelet Count 302 k/uL (150-450); RDW 13.6 % (11.5-15.5); WBC 7.5 k/uL (3.8-10.6)
[2017-12-31] MEDS ORDERED: ENALAPRILAT 1.25 MG/ML 1 ML VIAL IVP STA (01:56)
[2017-12-31 01:58] LABS: ALT 21 U/L (9-52); AST 15 U/L (14-36); Albumin 3.2 g/dL (3.5-5.0); Alkaline Phosphatase 72 U/L (38-126); Amylase 35 U/L (30-110); Anion Gap 11 mmol/L; Blood Urea Nitrogen 20 mg/dL (7-17); Calcium 8.6 mg/dL (8.4-10.2); Carbon Dioxide 24 mmol/L (22-30); Chloride 105 mmol/L (98-107); Glucose 213 mg/dL (74-99); Lipase 109 U/L (23-300); Potassium 5.2 mmol/L (3.5-5.1); Sodium 140 mmol/L (137-145); Total Protein 5.5 g/dL (6.3-8.2)
[2017-12-31 02:12] LABS: Creatine Kinase 24 U/L (30-135)
[2017-12-31 02:24] LABS: Creatine Kinase MB 0.5 ng/mL (0.0-2.4); Troponin I <0.012 ng/mL (0.000-0.034)
[2017-12-31 03:03] VITALS: BP 197/77; PULSE 69; RESP 18
[2017-12-31 03:03] LABS: Appearance,Urine Cloudy (Clear); Bacteria,Urine Rare /hpf; Bilirubin,Urine Negative (Negative); Blood,Urine Negative (Negative); Color,Urine Yellow; Glucose,Urine (UA) Negative (Negative); Hyaline Casts,Urine 4 /lpf (0-2); Ketones,Urine Negative (Negative); Leukocyte Esterase,Urine Small (Negative); Mucus,Urine Rare /hpf; Nitrite,Urine Negative (Negative); PH, Urine 5.5 (5.0-8.0); Protein,Urine 1+ (Negative); RBC,Urine 2 /hpf (0-5); Squamous Epithelial Cell,Urine <1 /hpf (0-4); Urobilinogen,Urine <2.0 mg/dL (<2.0); WBC,Urine 53 /hpf (0-5)
== END 2017-12-31 03:24 | disposition home or self-care (01) ==
LOC: EC 00:28
DX: N39.0 Urinary tract infection, site not specified (principal); R11.2 Nausea with vomiting, unspecified; R53.83 Other fatigue; Z53.8 Procedure and treatment not carried out for other reasons; I25.10 Atherosclerotic heart disease of native coronary artery without angina pectoris; I12.9 Hypertensive chronic kidney disease with stage 1 through stage 4 chronic kidney disease, or unspecified chronic kidney disease; E11.22 Type 2 diabetes mellitus with diabetic chronic kidney disease; N18.9 Chronic kidney disease, unspecified; E78.5 Hyperlipidemia, unspecified; I25.2 Old myocardial infarction; F32.9 Major depressive disorder, single episode, unspecified; Z86.73 Personal history of transient ischemic attack (TIA), and cerebral infarction without residual deficits; Z87.891 Personal history of nicotine dependence; Z79.82 Long term (current) use of aspirin; Z79.84 Long term (current) use of oral hypoglycemic drugs; Z79.01 Long term (current) use of anticoagulants; Z79.899 Other long term (current) drug therapy; Z88.5 Allergy status to narcotic agent; Z88.6 Allergy status to analgesic agent
CPT/HCPCS: 36415; 93005; 80053; 82150; 82550; 82553; 83690; 84484; 85025; 81001; 74018; 99285; 96374; 96375 ×2; 96361 ×2; J2765

== ENCOUNTER 2018-01-02 15:23 | Emergency (ER) | payer MEDICARE, BC ==
[2018-01-02 15:36] LABS: Glucose,Whole Blood 175 mg/dL (75-99)
--- NOTE | 2018-01-02 16:07 | ED ---
General Adult HPI - General Source: patient, RN notes reviewed, old records reviewed Mode of arrival: EMS Limitations: no limitations <Gilmar Castellanos - Last Filed: 01/02/18 18:15> <Paolo Jimenez - Last Filed: 01/02/18 20:11> - General Chief complaint: Recheck/Abnormal Lab/Rx Stated complaint: Hypoglycemia Time Seen by Provider: 01/02/18 15:31 - History of Present Illness Initial comments: Patient 87-year-old female who presents emergency room today by EMS, the chief complaint of hypoglycemia. Patient's daughter at bedside stating that she takes care of her mother at home. States that her blood sugar has been dropping the last 2 days. States it was 44 this morning. States that she did eat breakfast. States she also had lunch. She states that after she checked blood sugar in the afternoon and was down to 44 again. States she did call EMS because mother became weak and lightheaded. EMS did arrive and did give a sample of D50. Patient states feeling much better at this time. She does not that she's felt somewhat constipated last few days. She denies any other complaints or symptoms. Patient is not on insulin. Takes gliperide and Januvia. States that both these medications morning. Patient denies any recent fever, chills, shortness of breath, chest pain, back pain, numbness or tingling , dysuria or hematuria, headaches or visual changes, or any other complaints. ( Gilmar Castellanos) - Related Data Home Medications Medication Instructions Recorded Confirmed metFORMIN HCL [Glucophage] 500 mg PO BID 12/18/15 01/02/18 sitaGLIPtin PHOSPHATE [Januvia] 100 mg PO DAILY 12/18/15 01/02/18 Menthol [Icy Hot] 1 patch TRANSDERM DAILY PRN 05/25/17 01/02/18 Loperamide [Imodium] 4 mg PO QID PRN 11/17/17 01/02/18 Aspirin [Adult Low Dose Aspirin EC] 81 mg PO DAILY 11/21/17 01/02/18 Clopidogrel [Plavix] 1 tab PO DAILY 11/21/17 01/02/18 Famotidine [Pepcid] 20 mg PO DAILY 11/21/17 01/02/18 Lisinopril [Zestril] 1 tab PO BID 11/21/17 01/02/18 Nitroglycerin Sl Tabs [Nitrostat] 0.4 mg SUBLINGUAL Q5M PRN 11/21/17 01/02/18 Atorvastatin [Lipitor] 40 mg PO DAILY 01/02/18 01/02/18 Fluconazole [Diflucan] 100 mg PO DAILY 01/02/18 01/02/18 Galantamine [Razadyne] 4 mg PO AC-BID 01/02/18 01/02/18 Previous Rx's Medication Instructions Recorded Glimepiride [Amaryl] 1 mg PO BID #60 tab 11/25/17 Isosorbide Mononitrate ER [Imdur] 60 mg PO DAILY #30 tab.er.24h 11/25/17 Lidocaine 4% Cream [Lmx 4] 1 applic TOPICAL Q4H PRN #1 tube 11/25/17 Metoprolol Tartrate [Lopressor] 50 mg PO BID #60 tab 11/25/17 Ranolazine [Ranexa] 1,000 mg PO Q12HR #60 tab.er.12h 11/25/17 Allergies Allergy/AdvReac Type Severity Reaction Status Date / Time acetaminophen [From [place]] Allergy Rash/Hives Verified 01/02/18 16:10 hydrocodone [From [place]] Allergy Rash/Hives Verified 01/02/18 16:10 naproxen sodium [From Aleve] Allergy Itching,bessie Verified 01/02/18 16:10 h Review of Systems ROS Other: All systems not noted in ROS Statement are negative. <Gilmar Castellanos - Last Filed: 01/02/18 18:15> ROS Other: All systems not noted in ROS Statement are negative. <Paolo Jimenez - Last Filed: 01/02/18 20:11> ROS Statement: Those systems with pertinent positive or pertinent negative responses have been documented in the HPI. Past Medical History Past Medical History: Coronary Artery Disease (CAD), CVA/TIA, Diabetes Mellitus , Hyperlipidemia, Hypertension, Myocardial Infarction ([place]), Renal Disease Additional Past Medical History / Comment(s): Pt reports that in May of 2017 she was diagnosed with renal failure Last Myocardial Infarction Date:: 11/18/17 History of Any Multi-Drug Resistant Organisms: None Reported Past Surgical History: Appendectomy, Back Surgery, Cholecystectomy, Heart Catheterization With Stent Additional Past Surgical History / Comment(s): neck surgery. wrist surgery approx 2014. heart cath 11/18/16 stent to LAD Date of Last Stent Placement:: 11/18/17 Past Psychological History: Depression Smoking Status: Former smoker Past Alcohol Use History: None Reported Past Drug Use History: None Reported - Past Family History Father Additional Family Medical History / Comment(s): Father at age 91 from old age. Mother Additional Family Medical History / Comment(s): Mother at age 85 with history of lupus. Brother(s) Additional Family Medical History / Comment(s): Patient's siblings have history of coronary artery disease, diabetes, hypertension, macular degeneration. Daughter(s) Additional Family Medical History / Comment(s): Patient has 11 children; 6 daughters and 5 sons. 3 have and 2 from kidney failure and one was murdered. <Gilmar Castellanos - Last Filed: 01/02/18 18:15> General Exam Limitations: no limitations <Gilmar Castellanos - Last Filed: 01/02/18 18:15> <Paolo Jimenez - Last Filed: 01/02/18 20:11> - General Exam Comments Initial Comments: General: The patient is awake and alert, in no distress, and does not appear acutely ill. Eye: Pupils are equal, round and reactive to light, extra-ocular movements are intact. No nystagmus. There is normal conjunctiva bilaterally. No signs of icterus. Ears, nose, mouth and throat: There are moist mucous membranes and no oral lesions. Neck: The neck is supple, there is no tenderness or JVD. Cardiovascular: There is a regular rate and rhythm. No murmur, rub or gallop is appreciated. Respiratory: Lungs are clear to auscultation, respirations are non-labored, breath sounds are equal. No wheezes, stridor, rales, or rhonchi. Gastrointestinal: Soft, non-distended. abdomen without masses or organomegaly noted. Mild tenderness left lower quadrant. There is no rebound or guarding present. No CVA tenderness. Musculoskeletal: Normal ROM, no tenderness. Strength 5/5. Sensation intact. Pulses equal bilaterally 2+. Neurological: A&O x 3. CN II-XII intact, There are no obvious motor or sensory deficits. Coordination appears grossly intact. Speech is normal. Skin: Skin is warm and dry and no rashes or lesions are noted. Psychiatric: Cooperative, appropriate mood & affect, normal judgment. (Gilmar Castellanos) Course <Gilmar Castellanos - Last Filed: 01/02/18 18:15> <Paolo Jimenez - Last Filed: 01/02/18 20:11> Vital Signs 01/02/18 01/02/18 01/02/18 15:33 19:00 19:34 Temperature 97.9 F Pulse Rate 69 71 76 Respiratory 18 18 20 Rate Blood Pressure 191/76 205/84 O2 Sat by Pulse 97 96 97 Oximetry 01/02/18 19:56 Temperature Pulse Rate 78 Respiratory 18 Rate Blood Pressure 142/52 O2 Sat by Pulse 98 Oximetry - Reevaluation(s) Reevaluation #1: 01/02/18 18:15 Patient's labs been reviewed. Patient's urinalysis shows improvement from 2 days ago. Currently on Bactrim for urinary tract infection. Patient x-ray was reviewed. Given enema. Able to have a bowel movement. Patient feeling better at this time. Patient's blood sugar is been monitored closely. Patient currently eating and drinking at bedside at this time feeling fine and asymptomatic currently. Patient will continue to have blood sugars checked. Case discussed and signed out to Dr Jimenez at this time. (Gilmar Castellanos) Medical Decision Making - Lab Data Result diagrams: 01/02/18 16:20 01/02/18 16:20 <Gilmar Castellanos - Last Filed: 01/02/18 18:15> - Lab Data Result diagrams: 01/02/18 16:20 01/02/18 16:20 <Paolo Jimenez - Last Filed: 01/02/18 20:11> - Medical Decision Making Medical decision making; is an 87-year-old female who has had several episodes of low blood sugar over the last 24 hours. The patient is on Januvia in the morning and Amaryl 1 mg morning and evening. The daughter noted that her blood sugar this morning approximately 10 hours after taking the Amaryl her blood sugar was only 45. Throughout the day and she ate 3 good meals. The daughter didn't give her the morning Januvia and Amaryl after that event and again later on today the blood sugar dropped significantly. EMS brought the patient to emergency room she received 1 amp of D50. She was given food in the emergency room. She is being monitored at this time. At 1915 the patient's blood sugars 88. Patient feeling comfortable. Her blood pressure is elevated, which she will receive hydralazine 20 IV push. On emergency room the patient had a large loose bowel movement. She's been on Bactrim for 2 days for a urinary tract infection. The patient's blood pressure has stabilized. She feels good. She will have orthostatics performed to make sure blood pressure stable. She hasn't feel faint. Was suggested that she call the family doctor tomorrow and meanwhile not to take Amaryl only Januvia.. Daughter will check her sugars frequently provide proper food. (Paolo Jimenez) - Lab Data Lab Results 01/02/18 01/02/18 01/02/18 Range/Units 15:27 16:20 16:20 WBC 8.4 (3.8-10.6) k/uL RBC 4.03 (3.80-5.40) m/uL Hgb 12.5 (11.4-16.0) gm/dL Hct 38.1 (34.0-46.0) % MCV 94.6 (80.0-100.0) fL MCH 31.1 (25.0-35.0) pg MCHC 32.8 (31.0-37.0) g/dL RDW 13.5 (11.5-15.5) % Plt Count 310 (150-450) k/uL Neutrophils % 78 % Lymphocytes % 13 % Monocytes % 6 % Eosinophils % 2 % Basophils % 0 % Neutrophils # 6.5 (1.3-7.7) k/uL Lymphocytes # 1.1 (1.0-4.8) k/uL Monocytes # 0.5 (0-1.0) k/uL Eosinophils # 0.2 (0-0.7) k/uL Basophils # 0.0 (0-0.2) k/uL Sodium 136 L (137-145) mmol/L Potassium 5.6 H (3.5-5.1) mmol/L Chloride 99 (98-107) mmol/L Carbon Dioxide 23 (22-30) mmol/L Anion Gap 14 mmol/L BUN 24 H (7-17) mg/dL Creatinine 0.98 (0.52-1.04) mg/dL Est GFR (MDRD) Af Amer >60 (>60 ml/min/1.73 sqM) Est GFR (MDRD) Non-Af 54 (>60 ml/min/1.73 sqM) Glucose 99 (74-99) mg/dL POC Glucose (mg/dL) 175 H (75-99) mg/dL POC Glu Malted Milk Masher ID [place]pa King Calcium 9.1 (8.4-10.2) mg/dL Total Bilirubin 0.8 (0.2-1.3) mg/dL AST 24 (14-36) U/L ALT 19 (9-52) U/L Alkaline Phosphatase 77 (38-126) U/L Total Protein 6.1 L (6.3-8.2) g/dL Albumin 3.6 (3.5-5.0) g/dL Urine Color Urine Appearance (Clear) Urine pH (5.0-8.0) Ur Specific [place] (1.001-1.035) Urine Protein (Negative) Urine Glucose (UA) (Negative) Urine Ketones (Negative) Urine Blood (Negative) Urine Nitrite (Negative) Urine Bilirubin (Negative) Urine Urobilinogen (<2.0) mg/dL Ur Leukocyte Esterase (Negative) Urine RBC (0-5) /hpf Urine WBC (0-5) /hpf Ur Squamous Epith Cells (0-4) /hpf Amorphous Sediment (None) /hpf Urine Bacteria (None) /hpf Urine Mucus (None) /hpf 01/02/18 01/02/18 01/02/18 Range/Units 16:36 16:43 17:42 WBC (3.8-10.6) k/uL RBC (3.80-5.40) m/uL Hgb (11.4-16.0) gm/dL Hct (34.0-46.0) % MCV (80.0-100.0) fL MCH (25.0-35.0) pg MCHC (31.0-37.0) g/dL RDW (11.5-15.5) % Plt Count (150-450) k/uL Neutrophils % % Lymphocytes % % Monocytes % % Eosinophils % % Basophils % % Neutrophils # (1.3-7.7) k/uL Lymphocytes # (1.0-4.8) k/uL Monocytes # (0-1.0) k/uL Eosinophils # (0-0.7) k/uL Basophils # (0-0.2) k/uL Sodium (137-145) mmol/L Potassium (3.5-5.1) mmol/L Chloride (98-107) mmol/L Carbon Dioxide (22-30) mmol/L Anion Gap mmol/L BUN (7-17) mg/dL Creatinine (0.52-1.04) mg/dL Est GFR (MDRD) Af Amer (>60 ml/min/1.73 sqM) Est GFR (MDRD) Non-Af (>60 ml/min/1.73 sqM) Glucose (74-99) mg/dL POC Glucose (mg/dL) 108 H 81 (75-99) mg/dL POC Glu Malted Milk Masher ID Rosy Hinton Andrew Calcium (8.4-10.2) mg/dL Total Bilirubin (0.2-1.3) mg/dL AST (14-36) U/L ALT (9-52) U/L Alkaline Phosphatase (38-126) U/L Total Protein (6.3-8.2) g/dL Albumin (3.5-5.0) g/dL Urine Color Yellow Urine Appearance Cloudy H (Clear) Urine pH 6.5 (5.0-8.0) Ur Specific [place] 1.004 (1.001-1.035) Urine Protein Trace H (Negative) Urine Glucose (UA) Negative (Negative) Urine Ketones Negative (Negative) Urine Blood Moderate H (Negative) Urine Nitrite Negative (Negative) Urine Bilirubin Negative (Negative) Urine Urobilinogen <2.0 (<2.0) mg/dL Ur Leukocyte Esterase Small H (Negative) Urine RBC 6 H (0-5) /hpf Urine WBC 11 H (0-5) /hpf Ur Squamous Epith Cells 5 H (0-4) /hpf Amorphous Sediment Occasional H (None) /hpf Urine Bacteria Few H (None) /hpf Urine Mucus Rare H (None) /hpf 01/02/18 01/02/18 Range/Units 18:17 19:12 WBC (3.8-10.6) k/uL RBC (3.80-5.40) m/uL Hgb (11.4-16.0) gm/dL Hct (34.0-46.0) % MCV (80.0-100.0) fL MCH (25.0-35.0) pg MCHC (31.0-37.0) g/dL RDW (11.5-15.5) % Plt Count (150-450) k/uL Neutrophils % % Lymphocytes % % Monocytes % % Eosinophils % % Basophils % % Neutrophils # (1.3-7.7) k/uL Lymphocytes # (1.0-4.8) k/uL Monocytes # (0-1.0) k/uL Eosinophils # (0-0.7) k/uL Basophils # (0-0.2) k/uL Sodium (137-145) mmol/L Potassium (3.5-5.1) mmol/L Chloride (98-107) mmol/L Carbon Dioxide (22-30) mmol/L Anion Gap mmol/L BUN (7-17) mg/dL Creatinine (0.52-1.04) mg/dL Est GFR (MDRD) Af Amer (>60 ml/min/1.73 sqM) Est GFR (MDRD) Non-Af (>60 ml/min/1.73 sqM) Glucose (74-99) mg/dL POC Glucose (mg/dL) 75 88 (75-99) mg/dL POC Glu Malted Milk Masher ID Skinny Pearl Ellie Calcium (8.4-10.2) mg/dL Total Bilirubin (0.2-1.3) mg/dL AST (14-36) U/L ALT (9-52) U/L Alkaline Phosphatase (38-126) U/L Total Protein (6.3-8.2) g/dL Albumin (3.5-5.0) g/dL Urine Color Urine Appearance (Clear) Urine pH (5.0-8.0) Ur Specific [place] (1.001-1.035) Urine Protein (Negative) Urine Glucose (UA) (Negative) Urine Ketones (Negative) Urine Blood (Negative) Urine Nitrite (Negative) Urine Bilirubin (Negative) Urine Urobilinogen (<2.0) mg/dL Ur Leukocyte Esterase (Negative) Urine RBC (0-5) /hpf Urine WBC (0-5) /hpf Ur Squamous Epith Cells (0-4) /hpf Amorphous Sediment (None) /hpf Urine Bacteria (None) /hpf Urine Mucus (None) /hpf Disposition <Gilmar Castellanos - Last Filed: 01/02/18 18:15> Time of Disposition: 20:11 <Paolo Jimenez - Last Filed: 01/02/18 20:11> Clinical Impression: Adverse reaction to oral hypoglycemic drug Disposition: HOME SELF-CARE Condition: Stable Instructions: Hypoglycemia in a Person with Diabetes (ED) Additional Instructions: Eat a balanced diet. Check sugars often and as needed. Do not take Amaryl until you speak with your family doctor. Change positions slowly. Referrals: Yee Sales MD [Primary Care Provider] - 1-2 days
[2018-01-02 16:33] LABS: Basophils % (A) 0 %; Eosinophils # (A) 0.2 k/uL (0-0.7); Eosinophils % (A) 2 %; HCT 38.1 % (34.0-46.0); HGB 12.5 gm/dL (11.4-16.0); Lymphocytes # (A) 1.1 k/uL (1.0-4.8); Lymphocytes % (A) 13 %; MCH 31.1 pg (25.0-35.0); MCHC 32.8 g/dL (31.0-37.0); MCV 94.6 fL (80.0-100.0); Mean Platelet Volume 6.5; Monocytes # (A) 0.5 k/uL (0-1.0); Monocytes % (A) 6 %; Neutrophils # (A) 6.5 k/uL (1.3-7.7); Neutrophils % (A) 78 %; Platelet Count 310 k/uL (150-450); RBC 4.03 m/uL (3.80-5.40); RDW 13.5 % (11.5-15.5); WBC 8.4 k/uL (3.8-10.6)
[2018-01-02 16:40] LABS: Glucose,Whole Blood 108 mg/dL (75-99)
[2018-01-02 16:42] LABS: ALT 19 U/L (9-52); AST 24 U/L (14-36); Albumin 3.6 g/dL (3.5-5.0); Alkaline Phosphatase 77 U/L (38-126); Anion Gap 14 mmol/L; Blood Urea Nitrogen 24 mg/dL (7-17); Calcium 9.1 mg/dL (8.4-10.2); Carbon Dioxide 23 mmol/L (22-30); Chloride 99 mmol/L (98-107); Glucose 99 mg/dL (74-99); Potassium 5.6 mmol/L (3.5-5.1); Sodium 136 mmol/L (137-145); Total Bilirubin 0.8 mg/dL (0.2-1.3); Total Protein 6.1 g/dL (6.3-8.2)
--- NOTE | 2018-01-02 16:58 | XR ---
EXAMINATION TYPE: XR KUB DATE OF EXAM: 01/02/2018 COMPARISON: 12/31/2017 HISTORY: Syncope. Diarrhea. TECHNIQUE: 2 view FINDINGS: There is no sign of intestinal obstruction or pneumoperitoneum. Fecal pattern is normal. Th ere is blunting of right costophrenic angle. There are no pathologic calcifications over the kidneys. There is splenic artery calcification. IMPRESSION: Nonacute abdomen. There is some pleural fluid and pleural reaction at the right lung base that appears new compared to the last exam.
[2018-01-02 17:07] LABS: Amorphous Sediment,Urine Occasional /hpf; Appearance,Urine Cloudy (Clear); Bacteria,Urine Few /hpf; Bilirubin,Urine Negative (Negative); Blood,Urine Moderate (Negative); Color,Urine Yellow; Glucose,Urine (UA) Negative (Negative); Ketones,Urine Negative (Negative); Leukocyte Esterase,Urine Small (Negative); Mucus,Urine Rare /hpf; Nitrite,Urine Negative (Negative); PH, Urine 6.5 (5.0-8.0); Protein,Urine Trace (Negative); RBC,Urine 6 /hpf (0-5); Specific Gravity,Urine 1.004 (1.001-1.035); Squamous Epithelial Cell,Urine 5 /hpf (0-4); Urobilinogen,Urine <2.0 mg/dL (<2.0); WBC,Urine 11 /hpf (0-5)
[2018-01-02 17:46] LABS: Glucose,Whole Blood 81 mg/dL (75-99)
[2018-01-02 18:19] LABS: Glucose,Whole Blood 75 mg/dL (75-99)
[2018-01-02] MEDS ORDERED: hydrALAZINE HCL 20 MG/ML 1 ML VIAL IVP STA (19:24)
[2018-01-02 19:36] LABS: Glucose,Whole Blood 88 mg/dL (75-99)
[2018-01-02 20:23] VITALS: BP 138/62; PULSE 77; RESP 18; TEMP 98.1
[2018-01-02 20:48] LABS: Glucose,Whole Blood 104 mg/dL (75-99)
[2018-01-02 23:08] LABS: Hemoglobin A1C 6.3 % (4.0-6.0)
== END 2018-01-02 20:34 | disposition home or self-care (01) ==
LOC: EC 15:23 → EEVIPCON 15:23 → EC 20:34
DX: R53.1 Weakness (principal); T38.3X5A Adverse effect of insulin and oral hypoglycemic [antidiabetic] drugs, initial encounter; R42 Dizziness and giddiness; I25.10 Atherosclerotic heart disease of native coronary artery without angina pectoris; E11.9 Type 2 diabetes mellitus without complications; E78.5 Hyperlipidemia, unspecified; I10 Essential (primary) hypertension; I25.2 Old myocardial infarction; F32.9 Major depressive disorder, single episode, unspecified; Z86.73 Personal history of transient ischemic attack (TIA), and cerebral infarction without residual deficits; Z87.891 Personal history of nicotine dependence; Z79.01 Long term (current) use of anticoagulants; Z79.82 Long term (current) use of aspirin; Z79.84 Long term (current) use of oral hypoglycemic drugs; Z79.899 Other long term (current) drug therapy; Z88.5 Allergy status to narcotic agent; Z88.6 Allergy status to analgesic agent; Z83.3 Family history of diabetes mellitus
CPT/HCPCS: 36415; 80053; 85025; 81001; 87324; 87086; 87045; 87077; 87186; 87046; 83036; 74018; 99285; 96374; J0360

== ENCOUNTER 2018-01-15 19:11 | Observation (INO) | payer MEDICARE, BC ==
[2018-01-15 19:46] LABS: Glucose,Whole Blood 74 mg/dL (75-99)
[2018-01-15] MEDS ORDERED: SODIUM CHLORIDE 0.9% 500 ML IV STA (19:47)
[2018-01-15] MEDS ORDERED: SODIUM CHLORIDE 0.9% 1,000 ML IV STA (19:47)
[2018-01-15] MEDS ORDERED: RX INFO: IV CONTRAST WAS GIVEN 1 EACH MISC MISCELLANE PRN (19:47)
[2018-01-15] MEDS ORDERED: ONDANSETRON 4 MG/2 ML VIAL IVP STA (19:47)
[2018-01-15 20:10] LABS: ALT 27 U/L (9-52); AST 18 U/L (14-36); Albumin 3.2 g/dL (3.5-5.0); Alkaline Phosphatase 93 U/L (38-126); Amylase 41 U/L (30-110); Anion Gap 11 mmol/L; Blood Urea Nitrogen 24 mg/dL (7-17); Calcium 9.6 mg/dL (8.4-10.2); Carbon Dioxide 23 mmol/L (22-30); Chloride 105 mmol/L (98-107); Glucose 73 mg/dL (74-99); Lipase 199 U/L (23-300); Potassium 4.1 mmol/L (3.5-5.1); Sodium 139 mmol/L (137-145); Total Bilirubin 0.9 mg/dL (0.2-1.3); Total Protein 5.8 g/dL (6.3-8.2)
[2018-01-15 20:13] LABS: HCT 41.6 % (34.0-46.0); HGB 13.5 gm/dL (11.4-16.0); MCH 29.9 pg (25.0-35.0); MCHC 32.3 g/dL (31.0-37.0); MCV 92.5 fL (80.0-100.0); Mean Platelet Volume 6.2; Platelet Count 299 k/uL (150-450); RDW 13.2 % (11.5-15.5); WBC 3.4 k/uL (3.8-10.6)
[2018-01-15 20:33] LABS: Basophils # (M) 0.03 k/uL (0-0.2); Eosinophils # (M) 0.03 k/uL (0-0.7); Lymphocytes # (M) 1.56 k/uL (1.0-4.8); Monocytes # (M) 1.67 k/uL (0-1.0); Myelocytes # (M) 0.03 k/uL (0); Myelocytes % 1 %; Neutrophils # (M) 0.17 k/uL (1.3-7.7); Neutrophils % (M) 5 %; Nucleated Red Blood Cells 0 /100 WBC (0-0); Total Cells Counted 200
--- NOTE | 2018-01-15 20:50 | CT ---
EXAMINATION TYPE: CT brain wo con DATE OF EXAM: 01/15/2018 COMPARISON: 12/28/2010 INDICATION: Fall, right orbital injury 2-3 days ago. DLP: 999.8 mGycm, Automated exposure control for dose reduction was used. CONTRAST: None CT of the brain is performed utilizing 3 mm thick sections through the posterior fossa and 3 mm thick sections through the remaining calvarium. Study is performed within 24 hours of arrival to the hosp [facility]. No abnormal hyperdensity is present to suggest an acute intracranial hemorrhage. No mass lesion is evident. No acute infarcts are evident. Mild periventricular white matter ischemic type change may be present Ventricles and sulci are mildly prominent for the patient age. Paranasal sinuses and mastoid air cells within the [id number] are clear. No acute fractures are evident. The orbits appear intact. No blowout fractures are evident. Zygomatic arches are intact. IMPRESSIONS: 1. Mild atrophy with periventricular white matter ischemic changes. 2. No acute posttraumatic changes right orbit
[2018-01-15] MEDS ORDERED: DEXTROSE 50%-WATER 50 ML SYRINGE IVP STA (20:58)
--- NOTE | 2018-01-15 21:10 | CT ---
EXAMINATION TYPE: CT abdomen pelvis w con DATE OF EXAM: 01/15/2018 COMPARISON: NONE INDICATION: Right flank pain x 2 years. DLP: 1133.8 mGycm, Automated exposure control for dose reduction was used. CONTRAST: 100 mL of Omnipaque 300. Study performed without Oral Contrast TECHNIQUE: Axial images were obtained from above the diaphragm to the pubic rami in the axial plane a t 5 mm thick sections. Reconstructed images are reviewed on the computer in the coronal plane. FINDINGS: Limited CT sections are obtained the lung bases. The lung bases are clear. Vascular calcifications within the aorta. Coronary artery calcification is present. CT ABDOMEN: Liver: Normal Spleen: Normal Pancreas: Somewhat atrophic. Adrenal glands: The adrenal glands are normal. Gallbladder: Surgically absent. There is a dilated common bile duct above the head of the pancreas me asuring 1.5 cm. Normal up to 1.0 cm a postcholecystectomy patient. Kidneys: No masses are evident. No hydronephrosis is present. There is a 2.5 cm cyst medial upper left kidney measuring 1 Hounsfield unit. Tiny cortical renal cysts are present bilaterally to small t o classify. Aorta: Vascular calcification is within the aorta. Inferior vena cava: Normal. CT PELVIS: Loops of bowel within the abdomen and pelvis are normal. Studies without oral contrast limiting b owel loop evaluation. Scattered diverticuli are evident through the colon Appendix: Not identified. No suspicious tubular structure inflammatory changes are identified. Cecum is likely within the midabdomen. Urinary bladder: Normal. Genitourinary structures: Uterus appears unremarkable. Adnexal regions are clear Osseous structures: No suspicious lytic or sclerotic lesions. IMPRESSIONS: 1. The appendix is not identified. However, no suspicious inflammatory changes or tubular structures are identified. 2. Left renal cyst. 3. No suspicious changes to account for right flank pain. 4. Diverticulosis without acute diverticulitis.
[2018-01-15] MEDS ORDERED: cefTRIAXone IN SWFI 2,000 MG/20 ML SYRINGE IVP STA (21:14)
[2018-01-15 22:06] LABS: Glucose,Whole Blood 190 mg/dL (75-99)
--- NOTE | 2018-01-15 22:11 | XR ---
EXAMINATION TYPE: XR chest 2V DATE OF EXAM: 01/15/2018 COMPARISON: NONE INDICATION: Pain TECHNIQUE: Frontal and lateral views of the chest are obtained. FINDINGS: The heart size is normal. The pulmonary vasculature is normal. The lungs are clear. IMPRESSION: 1. No acute pulmonary process.
[2018-01-15 22:28] LABS: Appearance,Urine Clear (Clear); Bilirubin,Urine Negative (Negative); Blood,Urine Negative (Negative); Color,Urine Yellow; Glucose,Urine (UA) Trace (Negative); Hyaline Casts,Urine 11 /lpf (0-2); Ketones,Urine Negative (Negative); Leukocyte Esterase,Urine Negative (Negative); Mucus,Urine Rare /hpf; Nitrite,Urine Negative (Negative); PH, Urine 5.5 (5.0-8.0); Protein,Urine 1+ (Negative); RBC,Urine 2 /hpf (0-5); Squamous Epithelial Cell,Urine 4 /hpf (0-4); Urobilinogen,Urine <2.0 mg/dL (<2.0); WBC,Urine 1 /hpf (0-5)
--- NOTE | 2018-01-15 22:39 | ED ---
General Adult HPI - General Chief complaint: Nausea/Vomiting/Diarrhea Stated complaint: Altered Mental Status Time Seen by Provider: 01/15/18 19:16 Source: patient, EMS Mode of arrival: EMS Limitations: no limitations - History of Present Illness Initial comments: 87 years old female lives at home with her daughter and family noticed that she was quite confused today daughter. Daughter was at work she told the family members to give her something containing sugar she suspected low sugar has improved (sugar in the water and made her trach time by the time EMS got there his sugar was 75 and also daughter added that she fell 3 days ago she had right side of her head and after that they noticed that she was not quite oriented this said her sugar has dropped quite frequently she has come to the ER several times with a low sugar diet is also concerned about right flank pain which is ongoing and now recently it has gotten a lot worse because the pain appetite is down a she was nauseous she threw up. Otherwise review of system is unremarkable - Related Data Home Medications Medication Instructions Recorded Confirmed metFORMIN HCL [Glucophage] 500 mg PO BID 12/18/15 01/15/18 sitaGLIPtin PHOSPHATE [Januvia] 100 mg PO DAILY 12/18/15 01/15/18 Menthol [Icy Hot] 1 patch TRANSDERM DAILY PRN 05/25/17 01/15/18 Loperamide [Imodium] 4 mg PO QID PRN 11/17/17 01/15/18 Aspirin [Adult Low Dose Aspirin EC] 81 mg PO DAILY 11/21/17 01/15/18 Clopidogrel [Plavix] 1 tab PO DAILY 11/21/17 01/15/18 Famotidine [Pepcid] 20 mg PO DAILY 11/21/17 01/15/18 Lisinopril [Zestril] 1 tab PO BID 11/21/17 01/15/18 Nitroglycerin Sl Tabs [Nitrostat] 0.4 mg SUBLINGUAL Q5M PRN 11/21/17 01/15/18 Atorvastatin [Lipitor] 40 mg PO DAILY 01/02/18 01/15/18 Galantamine [Razadyne] 4 mg PO AC-BID 01/02/18 01/15/18 Previous Rx's Medication Instructions Recorded Isosorbide Mononitrate ER [Imdur] 60 mg PO DAILY #30 tab.er.24h 11/25/17 Lidocaine 4% Cream [Lmx 4] 1 applic TOPICAL Q4H PRN #1 tube 11/25/17 Metoprolol Tartrate [Lopressor] 50 mg PO BID #60 tab 11/25/17 Ranolazine [Ranexa] 1,000 mg PO Q12HR #60 tab.er.12h 11/25/17 Allergies Allergy/AdvReac Type Severity Reaction Status Date / Time hydrocodone [From [place]] Allergy Rash/Hives Verified 01/15/18 19:57 naproxen sodium [From Aleve] Allergy Itching,bessie Verified 01/15/18 19:57 h glimepiride [From Amaryl] AdvReac Nausea & Verified 01/15/18 19:57 Vomiting Review of Systems ROS Statement: Those systems with pertinent positive or pertinent negative responses have been documented in the HPI. ROS Other: All systems not noted in ROS Statement are negative. Past Medical History Past Medical History: Coronary Artery Disease (CAD), CVA/TIA, Diabetes Mellitus , Hyperlipidemia, Hypertension, Myocardial Infarction ([place]), Renal Disease Additional Past Medical History / Comment(s): Pt reports that in May of 2017 she was diagnosed with renal failure Last Myocardial Infarction Date:: 11/18/17 History of Any Multi-Drug Resistant Organisms: None Reported Past Surgical History: Appendectomy, Back Surgery, Cholecystectomy, Heart Catheterization With Stent Additional Past Surgical History / Comment(s): neck surgery. wrist surgery approx 2014. heart cath 11/18/16 stent to LAD Date of Last Stent Placement:: 11/18/17 Past Psychological History: Depression Smoking Status: Former smoker Past Alcohol Use History: None Reported Past Drug Use History: None Reported - Past Family History Father Additional Family Medical History / Comment(s): Father at age 91 from old age. Mother Additional Family Medical History / Comment(s): Mother at age 85 with history of lupus. Brother(s) Additional Family Medical History / Comment(s): Patient's siblings have history of coronary artery disease, diabetes, hypertension, macular degeneration. Daughter(s) Additional Family Medical History / Comment(s): Patient has 11 children; 6 daughters and 5 sons. 3 have and 2 from kidney failure and one was murdered. General Exam - General Exam Comments Initial Comments: General: The patient is awake and alert, in no distress, and does not appear acutely ill. GCS is 14 Skin: Skin is warm and dry and no rashes or lesions are noted. It is some bruising on the right side of the forehead and around the right orbit Eye: Pupils are equal, round and reactive to light, extra-ocular movements are intact; there is normal conjunctiva bilaterally. Ears, nose, mouth and throat: There are moist mucous membranes and no oral lesions. Neck: The neck is supple, there is no tenderness or JVD. Cardiovascular: There is a regular rate and rhythm. No murmur, rub or gallop is appreciated. Respiratory: To auscultation bilateral, no wheezing no rhonchi no distress Gastrointestinal: Soft, non-distended, non-tender abdomen without masses or organomegaly noted. There is no rebound or guarding present. Bowel sounds are unremarkable. Back: There is no tenderness to palpation in the midline. There is no obvious deformity. Musculoskeletal: Normal ROM, no tenderness, There is no pedal edema. There is no calf tenderness or swelling. No cords were appreciated. Neurological: CN II-XII intact, Cranial nerves III through XII are intact. There are no obvious motor or sensory deficits. Coordination appears grossly intact. Speech is normal. Psychiatric: Cooperative, appropriate mood & affect, normal judgment. Limitations: no limitations Course Vital Signs 01/15/18 01/15/18 01/15/18 19:12 20:53 22:02 Temperature 98.2 F Pulse Rate 77 71 73 Respiratory 16 18 16 Rate Blood Pressure 211/84 171/72 181/74 O2 Sat by Pulse 98 98 95 Oximetry Heart FAILURE at that time appetite is poor poor she has not been eating well but did the same time she is getting oral diabetes medications I think this was causing the recurrent hypoglycemia we need to observe for in the hospital been off for some of the medications so she doesn't get forget to subdural or hip fracture, today CBC, CMP, head CT, CT abdomen and pelvis are unremarkable surgery chest x-ray UAs he only thing pending she should be admitted to Dr. Crawford's service Medical Decision Making - Lab Data Result diagrams: 01/15/18 19:46 01/15/18 19:46 Lab Results 01/15/18 01/15/18 01/15/18 Range/Units 19:45 19:46 19:46 WBC 3.4 L (3.8-10.6) k/uL RBC 4.50 (3.80-5.40) m/uL Hgb 13.5 (11.4-16.0) gm/dL Hct 41.6 (34.0-46.0) % MCV 92.5 (80.0-100.0) fL MCH 29.9 (25.0-35.0) pg MCHC 32.3 (31.0-37.0) g/dL RDW 13.2 (11.5-15.5) % Plt Count 299 (150-450) k/uL Neutrophils % (Manual) 5 % Lymphocytes % (Manual) 46 % Monocytes % (Manual) 49 % Eosinophils % (Manual) 1 % Basophils % (Manual) 1 % Myelocytes % 1 % Neutrophils # (Manual) 0.17 L (1.3-7.7) k/uL Lymphocytes # (Manual) 1.56 (1.0-4.8) k/uL Monocytes # (Manual) 1.67 H (0-1.0) k/uL Eosinophils # (Manual) 0.03 (0-0.7) k/uL Basophils # (Manual) 0.03 (0-0.2) k/uL Myelocytes # (Manual) 0.03 H (0) k/uL Nucleated RBCs 0 (0-0) /100 WBC Manual Slide Review Performed Sodium 139 (137-145) mmol/L Potassium 4.1 (3.5-5.1) mmol/L Chloride 105 (98-107) mmol/L Carbon Dioxide 23 (22-30) mmol/L Anion Gap 11 mmol/L BUN 24 H (7-17) mg/dL Creatinine 0.80 (0.52-1.04) mg/dL Est GFR (MDRD) Af Amer >60 (>60 ml/min/1.73 sqM) Est GFR (MDRD) Non-Af >60 (>60 ml/min/1.73 sqM) Glucose 73 L (74-99) mg/dL POC Glucose (mg/dL) 74 L (75-99) mg/dL POC Glu Hand Nailer ID James, Paulette Plasma Lactic Acid Maximus (0.7-2.0) mmol/L Calcium 9.6 (8.4-10.2) mg/dL Total Bilirubin 0.9 (0.2-1.3) mg/dL AST 18 (14-36) U/L ALT 27 (9-52) U/L Alkaline Phosphatase 93 (38-126) U/L Total Protein 5.8 L (6.3-8.2) g/dL Albumin 3.2 L (3.5-5.0) g/dL Amylase 41 (30-110) U/L Lipase 199 (23-300) U/L Urine Color Urine Appearance (Clear) Urine pH (5.0-8.0) Ur Specific [place] (1.001-1.035) Urine Protein (Negative) Urine Glucose (UA) (Negative) Urine Ketones (Negative) Urine Blood (Negative) Urine Nitrite (Negative) Urine Bilirubin (Negative) Urine Urobilinogen (<2.0) mg/dL Ur Leukocyte Esterase (Negative) Urine RBC (0-5) /hpf Urine WBC (0-5) /hpf Ur Squamous Epith Cells (0-4) /hpf Hyaline Casts (0-2) /lpf Urine Mucus (None) /hpf 01/15/18 01/15/18 01/15/18 Range/Units 19:46 21:57 22:13 WBC (3.8-10.6) k/uL RBC (3.80-5.40) m/uL Hgb (11.4-16.0) gm/dL Hct (34.0-46.0) % MCV (80.0-100.0) fL MCH (25.0-35.0) pg MCHC (31.0-37.0) g/dL RDW (11.5-15.5) % Plt Count (150-450) k/uL Neutrophils % (Manual) % Lymphocytes % (Manual) % Monocytes % (Manual) % Eosinophils % (Manual) % Basophils % (Manual) % Myelocytes % % Neutrophils # (Manual) (1.3-7.7) k/uL Lymphocytes # (Manual) (1.0-4.8) k/uL Monocytes # (Manual) (0-1.0) k/uL Eosinophils # (Manual) (0-0.7) k/uL Basophils # (Manual) (0-0.2) k/uL Myelocytes # (Manual) (0) k/uL Nucleated RBCs (0-0) /100 WBC Manual Slide Review Sodium (137-145) mmol/L Potassium (3.5-5.1) mmol/L Chloride (98-107) mmol/L Carbon Dioxide (22-30) mmol/L Anion Gap mmol/L BUN (7-17) mg/dL Creatinine (0.52-1.04) mg/dL Est GFR (MDRD) Af Amer (>60 ml/min/1.73 sqM) Est GFR (MDRD) Non-Af (>60 ml/min/1.73 sqM) Glucose (74-99) mg/dL POC Glucose (mg/dL) 190 H (75-99) mg/dL POC Glu Hand Nailer ID James, Paulette Plasma Lactic Acid Maximus 1.4 (0.7-2.0) mmol/L Calcium (8.4-10.2) mg/dL Total Bilirubin (0.2-1.3) mg/dL AST (14-36) U/L ALT (9-52) U/L Alkaline Phosphatase (38-126) U/L Total Protein (6.3-8.2) g/dL Albumin (3.5-5.0) g/dL Amylase (30-110) U/L Lipase (23-300) U/L Urine Color Yellow Urine Appearance Clear (Clear) Urine pH 5.5 (5.0-8.0) Ur Specific [place] 1.030 (1.001-1.035) Urine Protein 1+ H (Negative) Urine Glucose (UA) Trace H (Negative) Urine Ketones Negative (Negative) Urine Blood Negative (Negative) Urine Nitrite Negative (Negative) Urine Bilirubin Negative (Negative) Urine Urobilinogen <2.0 (<2.0) mg/dL Ur Leukocyte Esterase Negative (Negative) Urine RBC 2 (0-5) /hpf Urine WBC 1 (0-5) /hpf Ur Squamous Epith Cells 4 (0-4) /hpf Hyaline Casts 11 H (0-2) /lpf Urine Mucus Rare H (None) /hpf Disposition Clinical Impression: Hypoglycemia, Change in mental status, Head injury Disposition: ADMITTED IP TO THIS [facility] Condition: Good Referrals: Yee Sales MD [Primary Care Provider] - 1-2 days
[2018-01-15] MEDS ORDERED: ONDANSETRON 4 MG/2 ML VIAL IVP PRN (22:43)
[2018-01-15] MEDS ORDERED: NALOXONE 0.4 MG/ML 1 ML VIAL IV PRN (22:43)
[2018-01-15] MEDS ORDERED: LIDOCAINE 4% CREAM 5 GM TUBE TOPICAL PRN (22:47)
[2018-01-15] MEDS ORDERED: NITROGLYCERIN SL TABS 0.4 MG TAB SUBLINGUAL PRN (22:47)
[2018-01-15] MEDS ORDERED: MENTHOL TRANSDERM PRN (22:47)
[2018-01-15] MEDS ORDERED: LOPERAMIDE 2 MG CAP PO PRN (22:47)
[2018-01-15 23:41] VITALS: RESP 20
[2018-01-15 23:51] VITALS: BMI 31.8
[2018-01-16 07:17] LABS: Glucose,Whole Blood 96 mg/dL (75-99)
[2018-01-16 07:47] VITALS: BP 117/64; PULSE 75; TEMP 97.9
[2018-01-16] MEDS ORDERED: PANTOPRAZOLE 40 MG/10 ML VIAL IV SCH (09:00)
[2018-01-16] MEDS ORDERED: metFORMIN 500 MG TAB PO SCH (09:00)
[2018-01-16] MEDS ORDERED: ATORVASTATIN 40 MG TAB PO SCH (09:00)
[2018-01-16] MEDS ORDERED: CLOPIDOGREL 75 MG TAB PO SCH (09:00)
[2018-01-16] MEDS ORDERED: ISOSORBIDE MONONITRATE ER 60 MG TAB.ER.24H PO SCH (09:00)
[2018-01-16] MEDS ORDERED: METOPROLOL TARTRATE 50 MG TAB PO SCH (09:00)
[2018-01-16] MEDS ORDERED: ASPIRIN 81 MG PO SCH (09:00)
[2018-01-16] MEDS ORDERED: RANOLAZINE 500 MG TAB.ER.12H PO SCH (09:00)
[2018-01-16] MEDS ORDERED: FAMOTIDINE 20 MG TAB PO SCH (09:00)
[2018-01-16] MEDS ORDERED: DONEPEZIL 5 MG TAB PO SCH (09:00)
--- NOTE | 2018-01-16 13:55 | P.HPIM ---
History of Present Illness H&P Date: 01/16/18 HISTORY AND PHYSICAL AND DISCHARGE SUMMARY: This is an 87-year-old female patient of Dr. Sales with history of hypertension, hyperlipidemia, type 2 diabetes. She had a recent hospitalization in November for non-ST elevated myocardial infarction status post stent of the LAD. Patient recently finished a course of antibiotics for diverticulitis. Patient apparently has not been eating very much only a couple bites and then for 4-5 hour she eats again a couple bites. Her bowel movements have been infrequent and she has not had one for 2 days. Her daughter bought Ensure for her last night but she has not started it. She recently was getting into bed and had her right forehead above her right eye on the headboard but had no recent fall. She is known to have borderline dementia and occasional confusion as well as a little depression. Patient states that she has not had a bowel movement for 2-1/2 days but is been urinating without any problems. She also complains of feeling that her food is getting stuck in her lower esophagus this is solids and not liquids. She prefers to have soups. She is also complaining of right flank pain. She has history of kidney stones in the remote past. Patient was recently taken off metformin by Dr. Sales. Family gave her sugar prior to EMS arrival. EMS obtained a blood sugar of 75. She came into [facility] emergency center for the above concerns. Patient's initial blood pressure was elevated at 211/84. She is afebrile, white count 3.4. Electrolyte were within normal limits, creatinine 0.8. Hemoglobin 13.5. Urinalysis was negative for urinary tract infection. Chest x-ray showed no acute process. CAT scan of the brain showed mild atrophy with periventricular white matter ischemic changes. No acute posterior manic changes in the right orbit. Patient was given Zofran, D50, 1-1/2 L of IV fluid and placed on the MedSurg floor as observation status. Discussed case with patient and her daughter in detail. We will plan to take patient off her diabetic medications. Her recent hemoglobin A1c was 6.3. We will provide a prescription for Remeron and patient is to follow up with Dr. Nugent regarding possible barium swallow as an outpatient. Discharge Medication List Menthol [Icy Hot] 1 patch TRANSDERM DAILY PRN 05/25/17 [History] Loperamide [Imodium] 4 mg PO QID PRN 11/17/17 [History] Aspirin [Adult Low Dose Aspirin EC] 81 mg PO DAILY 11/21/17 [History] Clopidogrel [Plavix] 1 tab PO DAILY 11/21/17 [History] Famotidine [Pepcid] 20 mg PO DAILY 11/21/17 [History] Lisinopril [Zestril] 1 tab PO BID 11/21/17 [History] Nitroglycerin Sl Tabs [Nitrostat] 0.4 mg SUBLINGUAL Q5M PRN 11/21/17 [History] Isosorbide Mononitrate ER [Imdur] 60 mg PO DAILY #30 tab.er.24h 11/25/17 [Rx] Lidocaine 4% Cream [Lmx 4] 1 applic TOPICAL Q4H PRN #1 tube 11/25/17 [Rx] Metoprolol Tartrate [Lopressor] 50 mg PO BID #60 tab 11/25/17 [Rx] Ranolazine [Ranexa] 1,000 mg PO Q12HR #60 tab.er.12h 11/25/17 [Rx] Atorvastatin [Lipitor] 40 mg PO DAILY 01/02/18 [History] Galantamine [Razadyne] 4 mg PO AC-BID 01/02/18 [History] Mirtazapine [Remeron] 7.5 mg PO HS #15 tab 01/16/18 [Rx] Polyethylene Glycol 3350 [Miralax] 17 gm PO DAILY #30 packet 01/16/18 [Rx] Review of Systems All systems: negative Constitutional: Reports anorexia, Reports poor appetite, Reports weakness, Denies chills, Denies fever Eyes: denies blurred vision, denies pain Ears, nose, mouth and throat: Reports dysphagia, Denies headache, Denies sore throat Cardiovascular: Denies chest pain, Denies decreased exercise tolerance, Denies dyspnea on exertion, Denies edema, Denies leg edema, Denies lightheadedness, Denies shortness of breath, Denies syncope Respiratory: Denies congestion, Denies cough, Denies cough with sputum, Denies dyspnea, Denies excessive sputum, Denies hemoptysis, Denies home oxygen, Denies wheezing Gastrointestinal: Reports constipation, Reports loss of appetite, Denies abdominal pain, Denies diarrhea, Denies nausea, Denies vomiting Genitourinary: Denies dysuria, Denies hematuria Musculoskeletal: Denies myalgias Integumentary: Denies pruritus, Denies rash Neurological: Denies numbness, Denies weakness Psychiatric: Denies anxiety, Denies depression Endocrine: Denies fatigue, Denies weight change Past Medical History Past Medical History: Coronary Artery Disease (CAD), CVA/TIA, Diabetes Mellitus , Hyperlipidemia, Hypertension, Myocardial Infarction ([place]), Renal Disease Additional Past Medical History / Comment(s): Pt reports that in May of 2017 she was diagnosed with renal failure Last Myocardial Infarction Date:: 11/18/17 History of Any Multi-Drug Resistant Organisms: None Reported Past Surgical History: Appendectomy, Back Surgery, Cholecystectomy, Heart Catheterization With Stent Additional Past Surgical History / Comment(s): neck surgery. wrist surgery approx 2014. heart cath 11/18/16 stent to LAD Date of Last Stent Placement:: 11/18/17 Past Psychological History: Depression Smoking Status: Former smoker Past Alcohol Use History: None Reported Additional Past Alcohol Use History / Comment(s): Patient was a smoker of a half a pack per day for 15 years ago 25 years ago. No illicit drug use. No alcohol use. Past Drug Use History: None Reported - Past Family History Father Additional Family Medical History / Comment(s): Father at age 91 from old age. Mother Additional Family Medical History / Comment(s): Mother at age 85 with history of lupus. Brother(s) Additional Family Medical History / Comment(s): Patient's siblings have history of coronary artery disease, diabetes, hypertension, macular degeneration. Daughter(s) Additional Family Medical History / Comment(s): Patient has 11 children; 6 daughters and 5 sons. 3 have and 2 from kidney failure and one was murdered. Medications and Allergies Home Medications Medication Instructions Recorded Confirmed Type Menthol [Icy Hot] 1 patch TRANSDERM DAILY PRN 05/25/17 01/15/18 History Loperamide [Imodium] 4 mg PO QID PRN 11/17/17 01/15/18 History Aspirin [Adult Low Dose Aspirin EC] 81 mg PO DAILY 11/21/17 01/15/18 History Clopidogrel [Plavix] 1 tab PO DAILY 11/21/17 01/15/18 History Famotidine [Pepcid] 20 mg PO DAILY 11/21/17 01/15/18 History Lisinopril [Zestril] 1 tab PO BID 11/21/17 01/15/18 History Nitroglycerin Sl Tabs [Nitrostat] 0.4 mg SUBLINGUAL Q5M PRN 11/21/17 01/15/18 History Isosorbide Mononitrate ER [Imdur] 60 mg PO DAILY #30 tab.er.24h 11/25/17 Rx Lidocaine 4% Cream [Lmx 4] 1 applic TOPICAL Q4H PRN #1 tube 11/25/17 01/15/18 Rx Metoprolol Tartrate [Lopressor] 50 mg PO BID #60 tab 11/25/17 01/15/18 Rx Ranolazine [Ranexa] 1,000 mg PO Q12HR #60 tab.er.12h 11/25/17 01/15/18 Rx Atorvastatin [Lipitor] 40 mg PO DAILY 01/02/18 01/15/18 History Galantamine [Razadyne] 4 mg PO AC-BID 01/02/18 01/15/18 History Mirtazapine [Remeron] 7.5 mg PO HS #15 tab 01/16/18 Rx Polyethylene Glycol 3350 [Miralax] 17 gm PO DAILY #30 packet 01/16/18 Rx Allergies Allergy/AdvReac Type Severity Reaction Status Date / Time hydrocodone [From [place]] Allergy Rash/Hives Verified 01/15/18 19:57 naproxen sodium [From Aleve] Allergy Itching,bessie Verified 01/15/18 19:57 h glimepiride [From Amaryl] AdvReac Nausea & Verified 01/15/18 19:57 Vomiting Physical Exam Vitals: Vital Signs Temp Pulse Pulse Resp BP BP Pulse Ox 01/16/18 07:00 97.9 F 75 20 117/64 94 L 01/16/18 01:51 74 20 01/15/18 23:40 98.7 F 74 20 153/59 95 01/15/18 22:02 73 16 181/74 95 01/15/18 20:53 71 18 171/72 98 01/15/18 19:12 98.2 F 77 16 211/84 98 Intake and Output 01/15/18 01/16/18 01/16/18 22:59 06:59 14:59 Other: # Voids 0 Weight 79.379 kg 79 kg Gen: This is an obese 87-year-old female. She is sitting up in bed and appears to be in no acute distress. HEENT: Head is atraumatic, normocephalic. Pupils equal, round. Sclerae is anicteric. NECK: Supple. No JVD. No lymphadenopathy. No thyromegaly. LUNGS: Clear to auscultation and diminished to the bases. No intercostal retractions. HEART: Regular rate and rhythm. No murmur. ABDOMEN: Soft. Bowel sounds are present. No masses. No tenderness. EXTREMITIES: No pedal edema. No calf tenderness. Dorsalis pedis +2 bilaterally. NEUROLOGICAL: Patient is awake, alert and oriented x3. Cranial nerves 2 through 12 are grossly intact. Results CBC & Chem 7: 01/15/18 19:46 01/15/18 19:46 Labs: Abnormal Lab Results - Last 24 Hours (Table) 01/15/18 01/15/18 01/15/18 Range/Units 19:45 19:46 19:46 WBC 3.4 L (3.8-10.6) k/uL Neutrophils # (Manual) 0.17 L (1.3-7.7) k/uL Monocytes # (Manual) 1.67 H (0-1.0) k/uL Myelocytes # (Manual) 0.03 H (0) k/uL BUN 24 H (7-17) mg/dL Glucose 73 L (74-99) mg/dL POC Glucose (mg/dL) 74 L (75-99) mg/dL Total Protein 5.8 L (6.3-8.2) g/dL Albumin 3.2 L (3.5-5.0) g/dL Urine Protein (Negative) Urine Glucose (UA) (Negative) Hyaline Casts (0-2) /lpf Urine Mucus (None) /hpf 01/15/18 01/15/18 Range/Units 21:57 22:13 WBC (3.8-10.6) k/uL Neutrophils # (Manual) (1.3-7.7) k/uL Monocytes # (Manual) (0-1.0) k/uL Myelocytes # (Manual) (0) k/uL BUN (7-17) mg/dL Glucose (74-99) mg/dL POC Glucose (mg/dL) 190 H (75-99) mg/dL Total Protein (6.3-8.2) g/dL Albumin (3.5-5.0) g/dL Urine Protein 1+ H (Negative) Urine Glucose (UA) Trace H (Negative) Hyaline Casts 11 H (0-2) /lpf Urine Mucus Rare H (None) /hpf Thrombosis Risk Factor Assmnt - Choose All That Apply Any of the Below Risk Factors Present?: No Each Risk Factor Represents 3 Points: Age 75 years or older Thrombosis Risk Factor Assessment Total Risk Factor Score: 3 Thrombosis Risk Factor Assessment Level: Moderate Risk Assessment and Plan Plan: 1. Change in mental status most likely secondary to hypoglycemia. All diabetic agents have been discontinued. 2. History of non-ST elevated myocardial infarction status post stenting of the LAD on admission November 18. 3. Hyperlipidemia. Continue Lipitor. 4. Diabetes mellitus type 2. Hemoglobin A1c 6.3.. 6. Hypertension. Continue lisinopril and Lopressor. Patient placed on an as observation status. Discharge plan: Return home Impression and plan of care have been directed as dictated by the signing physician. Donita Padron nurse practitioner acting as scribe for signing physician.
== END 2018-01-16 11:43 | disposition home or self-care (01) ==
LOC: EC 19:11 → 4MS4W 22:47
PROVIDERS: ADMIT Internal Medicine; ATTEND Internal Medicine
DX: R41.82 Altered mental status, unspecified (principal); E11.649 Type 2 diabetes mellitus with hypoglycemia without coma; I12.9 Hypertensive chronic kidney disease with stage 1 through stage 4 chronic kidney disease, or unspecified chronic kidney disease; E11.22 Type 2 diabetes mellitus with diabetic chronic kidney disease; N18.9 Chronic kidney disease, unspecified; E78.5 Hyperlipidemia, unspecified; I25.10 Atherosclerotic heart disease of native coronary artery without angina pectoris; F32.9 Major depressive disorder, single episode, unspecified; Z95.5 Presence of coronary angioplasty implant and graft; R13.10 Dysphagia, unspecified; K57.90 Diverticulosis of intestine, part unspecified, without perforation or abscess without bleeding; S09.90XA Unspecified injury of head, initial encounter; W22.8XXA Striking against or struck by other objects, initial encounter; E66.9 Obesity, unspecified; I25.2 Old myocardial infarction; Z79.02 Long term (current) use of antithrombotics/antiplatelets; Z79.82 Long term (current) use of aspirin; Z79.84 Long term (current) use of oral hypoglycemic drugs; Z79.899 Other long term (current) drug therapy; Z88.5 Allergy status to narcotic agent; Z88.6 Allergy status to analgesic agent; Z88.8 Allergy status to other drugs, medicaments and biological substances; Z87.891 Personal history of nicotine dependence; Z87.442 Personal history of urinary calculi; Z86.73 Personal history of transient ischemic attack (TIA), and cerebral infarction without residual deficits; Z83.3 Family history of diabetes mellitus; Z82.49 Family history of ischemic heart disease and other diseases of the circulatory system; Z83.49 Family history of other endocrine, nutritional and metabolic diseases; Z83.518 Family history of other specified eye disorder; Z84.1 Family history of disorders of kidney and ureter
CPT/HCPCS: 99285 ×2; 96374 ×2; 96375 ×3; 96361 ×4; 36415; 80053; 82150; 83605; 83690; 85025; 81001; 87040; 87086; 71046; 70450; 74177; G0378 ×2; J2405; J0696; Q9967

== ENCOUNTER → 2018-01-27 | Outpatient (CLI) | payer MEDICARE, BC ==
--- NOTE | 2018-01-27 14:13 | FL ---
MODIFIED SWALLOW / DEGLUTITION STUDY DATE OF EXAM: 01/27/2018 CLINICAL HISTORY: 87-year-old female Dysphagia. With trouble swallowing. TECHNIQUE: Deglutition study is performed utilizing thin liquid barium, honey and nectar thick liqui d barium, barium thick applesauce, and barium coated cracker. Total fluoroscopy time: 56 seconds. Total images: 17 COMPARISON: None. FINDINGS: The patient is edentulous. Otherwise, oral and pharyngeal phases show satisfactory initiation and pro pagation with all modalities tested. There is no evidence of penetration or aspiration with any mod ality tested. No significant pharyngeal residue was appreciated. There is C4-C5 ACDF hardware. C3 vertebra shows prominent anterior endplate spondylosis with an overg rown anterior spur extending anterior to the upper portion of the ACDF. This causes mild to moderate posterior impression on to the hypopharyngeal wall. IMPRESSION: 1. No evidence for penetration or aspiration. 2. Prominent hyperostotic changes at C3-C4 above the ACDF impressing on to the posterior hypopharynx and cervical esophagus which may be contributing to the patient's symptoms. Please refer to speech therapist notes for further details if necessary.
== END | disposition home or self-care (01) ==
LOC: RADFLMAIN 10:34
PROVIDERS: ATTEND Family Medicine
DX: M85.88 Other specified disorders of bone density and structure, other site (principal); R13.10 Dysphagia, unspecified; Z98.1 Arthrodesis status
CPT/HCPCS: 74230

== ENCOUNTER 2018-02-04 06:47 | Day surgery (SDC) | payer MEDICARE, BC ==
[2018-02-02 14:25] VITALS: BMI 31.8
[~2018-02-04 06:47] MED LIST: LACTATED RINGERS 1,000 ML IV SCH
[2018-02-04 07:11] VITALS: RESP 18; TEMP 99
[2018-02-04] MEDS ORDERED: LACTATED RINGERS 1,000 ML IV ONE ×2 (07:18)
[2018-02-04 07:19] LABS: Glucose,Whole Blood 195 mg/dL (75-99)
[2018-02-04] MEDS ORDERED: PROPOFOL 10 MG/ML 20 ML VIAL IV ONE (07:38)
--- NOTE | 2018-02-04 07:52 | P.PCN ---
Date of Procedure: 02/04/18 Postoperative Diagnosis: BRIEF HISTORY: Patient is a 87-year-old, pleasant, white female, scheduled for an upper endoscopy as part of evaluation of abdominal pain for the last 3 years duration. Also has been complaint of intermittent dysphagia to solids. He is presently on Pepcid 20 mg twice daily. PROCEDURE PERFORMED: Esophagogastroduodenoscopy. PREOPERATIVE DIAGNOSIS: Abdominal pain and intermittent dysphagia to solids. IV sedation per anesthesia. PROCEDURE: After informed consent was obtained, the patient was brought into the endoscopy unit. IV sedation was administered by Anesthesia under continuous monitoring. Initially the Olympus GIF-140 video endoscope was inserted into the mouth. Esophagus intubated without any difficulty. It was gradually advanced into the stomach and duodenum and carefully examined. The bulb and the second part of the duodenum appeared normal. The scope at this time was withdrawn to the stomach, adequately insufflated with air, and upon careful examination, mucosa of the antrum, had mild patchy linear is of erythema noted consistent with gastritis. The body, cardia and the fundus appeared normal. The scope was then withdrawn into the esophagus. The GE junction was located at 38 cm from the incisors. The esophagus appeared normal. There were no erosions or ulcerations seen and the patient tolerated the procedure well. IMPRESSION: 1. Mild gastritis. 2. Small hiatal hernia but no evidence of esophagitis or esophageal stricture. RECOMMENDATIONS: The findings of this examination were discussed with the patient as well as a family. She was advised to continue with Pepcid 20 mg twice daily and follow antireflux measures.
[2018-02-04 08:19] VITALS: BP 187/92; PULSE 70
== END 2018-02-04 09:01 | disposition home or self-care (01) ==
LOC: ORWHC2ENDO 06:47
PROVIDERS: ATTEND Internal Medicine Gastroenterology
DX: K29.70 Gastritis, unspecified, without bleeding (principal); K44.9 Diaphragmatic hernia without obstruction or gangrene; I25.10 Atherosclerotic heart disease of native coronary artery without angina pectoris; I10 Essential (primary) hypertension; E78.5 Hyperlipidemia, unspecified; E11.9 Type 2 diabetes mellitus without complications; Z88.5 Allergy status to narcotic agent; Z88.6 Allergy status to analgesic agent; Z88.8 Allergy status to other drugs, medicaments and biological substances; Z86.73 Personal history of transient ischemic attack (TIA), and cerebral infarction without residual deficits; Z79.82 Long term (current) use of aspirin; Z79.84 Long term (current) use of oral hypoglycemic drugs; Z79.02 Long term (current) use of antithrombotics/antiplatelets; Z79.899 Other long term (current) drug therapy
CPT/HCPCS: 43235; J2704

== ENCOUNTER 2018-12-20 08:21 | Inpatient (IN) | payer MEDICARE, BC ==
[2018-12-20] MEDS ORDERED: SODIUM CHLORIDE 0.9% 500 ML 500 ML IV STA (08:48)
[2018-12-20] MEDS ORDERED: METOPROLOL TARTRATE 50 MG TAB PO STA (08:50)
[2018-12-20] MEDS ORDERED: LISINOPRIL 2.5 MG TAB PO STA (08:50)
--- NOTE | 2018-12-20 08:53 | ED ---
General Adult HPI <Ty Tsai - Last Filed: 12/20/18 11:47> - General Source: patient, family, RN notes reviewed Mode of arrival: wheelchair Limitations: no limitations <Gilmar Castellanos - Last Filed: 12/20/18 11:52> - General Chief complaint: Vaginal Bleeding Stated complaint: vaginal bleeding Time Seen by Provider: 12/20/18 08:30 - History of Present Illness Initial comments: Patient 88-year-old female presented to the emergency room today with a chief complaint of vaginal bleeding. Patient does admit that she was small amount of bleeding in a brief 2 days ago. States this morning after going the bathroom when she stood up saw a small amount of blood come out. She states it was a bright color. States currently wearing a pad again at this time please is still some spotting once again. Patient does admit that she had pain in the right side which is now gone. She does admit some discomfort in the middle of the lower abdomen. Patient describes it as achy type pain. States minimal. Does not want any pain medication. Patient does have history of high blood pressure states did not take her blood pressure medication this morning. She denies any other complaints or symptoms currently. Patient denies any recent fever, chills, shortness of breath, chest pain, back pain, nausea or vomiting, numbness or tingling, headaches or visual changes, or any other complaints. ( Gilmar Castellanos) - Related Data Home Medications Medication Instructions Recorded Confirmed Aspirin [Adult Low Dose Aspirin EC] 81 mg PO DAILY 11/21/17 12/20/18 Clopidogrel [Plavix] 75 mg PO DAILY 11/21/17 12/20/18 Famotidine [Pepcid] 20 mg PO DAILY 11/21/17 12/20/18 Atorvastatin [Lipitor] 40 mg PO DAILY 01/02/18 12/20/18 Galantamine [Razadyne] 4 mg PO AC-BID 01/02/18 12/20/18 Isosorbide Mononitrate ER [Imdur] 60 mg PO QAM 02/02/18 12/20/18 metFORMIN HCL [Glucophage] 500 mg PO BID 02/02/18 12/20/18 Ergocalciferol (Vitamin D2) 50,000 unit PO Q14D 12/20/18 12/20/18 [Vitamin D2] Escitalopram [Lexapro] 10 mg PO DAILY 12/20/18 12/20/18 Lisinopril 30 mg PO DAILY 12/20/18 12/20/18 Previous Rx's Medication Instructions Recorded Metoprolol Tartrate [Lopressor] 50 mg PO BID #60 tab 11/25/17 Ranolazine [Ranexa] 1,000 mg PO Q12HR #60 tab.er.12h 11/25/17 Allergies Allergy/AdvReac Type Severity Reaction Status Date / Time hydrocodone [From [place]] Allergy Rash/Hives Verified 12/20/18 09:22 naproxen sodium [From Aleve] Allergy Itching,bessie Verified 12/20/18 09:22 h glimepiride [From Amaryl] AdvReac Nausea & Verified 12/20/18 09:22 Vomiting Review of Systems ROS Other: All systems not noted in ROS Statement are negative. <Ty Tsai - Last Filed: 12/20/18 11:47> ROS Other: All systems not noted in ROS Statement are negative. <Gilmar Castellanos - Last Filed: 12/20/18 11:52> ROS Statement: Those systems with pertinent positive or pertinent negative responses have been documented in the HPI. Past Medical History Past Medical History: Coronary Artery Disease (CAD), CVA/TIA, Diabetes Mellitus , Hyperlipidemia, Hypertension, Myocardial Infarction ([place]), Renal Disease Additional Past Medical History / Comment(s): Pt reports that in May of 2017 she was diagnosed with renal failure Last Myocardial Infarction Date:: 11/18/17 History of Any Multi-Drug Resistant Organisms: None Reported Past Surgical History: Appendectomy, Back Surgery, Cholecystectomy, Heart Catheterization With Stent Additional Past Surgical History / Comment(s): neck surgery. wrist surgery approx 2014. heart cath 11/18/16 stent to LAD Date of Last Stent Placement:: 11/18/17 Past Psychological History: Depression Smoking Status: Former smoker Past Alcohol Use History: None Reported Past Drug Use History: None Reported - Past Family History Father Additional Family Medical History / Comment(s): Father at age 91 from old age. Mother Additional Family Medical History / Comment(s): Mother at age 85 with history of lupus. Brother(s) Additional Family Medical History / Comment(s): Patient's siblings have history of coronary artery disease, diabetes, hypertension, macular degeneration. Daughter(s) Additional Family Medical History / Comment(s): Patient has 11 children; 6 daughters and 5 sons. 3 have and 2 from kidney failure and one was murdered. <CastellanosGilmar - Last Filed: 12/20/18 11:52> General Exam <Ty Tsai - Last Filed: 12/20/18 11:47> Limitations: no limitations <CastellanosGilmar - Last Filed: 12/20/18 11:52> - General Exam Comments Initial Comments: General: The patient is awake and alert, in no distress, and does not appear acutely ill. Eye: There is normal conjunctiva bilaterally. No signs of icterus. Ears, nose, mouth and throat: There are moist mucous membranes and no oral lesions. Neck: The neck is supple Cardiovascular: There is a regular rate and rhythm. No murmur, rub or gallop is appreciated. Respiratory: Lungs are clear to auscultation, respirations are non-labored, breath sounds are equal. No wheezes, stridor, rales, or rhonchi. Gastrointestinal: Abdomen soft on palpation. Patient does have tenderness midline. No rebound, guarding or CVA tenderness. Musculoskeletal: Normal ROM, no tenderness. Neurological: A&O x 3. CN II-XII intact, There are no obvious motor or sensory deficits. Coordination appears grossly intact. Speech is normal. Skin: Skin is warm and dry and no rashes or lesions are noted. Psychiatric: Cooperative, appropriate mood & affect, normal judgment. (Gilmar Castellanos) Vital Signs 12/20/18 12/20/18 12/20/18 08:24 09:30 10:00 Temperature 98.2 F Pulse Rate 60 Respiratory 18 Rate Blood Pressure 210/72 207/64 219/70 O2 Sat by Pulse 96 95 95 Oximetry 12/20/18 12/20/18 10:30 11:49 Temperature Pulse Rate Respiratory 18 Rate Blood Pressure 192/82 197/66 O2 Sat by Pulse 95 95 Oximetry Medical Decision Making - Lab Data Result diagrams: 12/20/18 09:26 12/20/18 09:26 <Ty Tsai - Last Filed: 12/20/18 11:47> - Lab Data Result diagrams: 12/20/18 09:26 12/20/18 09:26 <Gilmar Castellanos - Last Filed: 12/20/18 11:52> - Medical Decision Making 88 -year-old female presenting with rectal bleeding. Patient has been red blood per rectum, vital signs do show some hypertension, no tachycardia, no hypotension. Patient will be admitted to ICU for close monitoring, initial hemoglobin is stable, repeat hemoglobin will be obtained in 4 hours. Case discussed with the pulmonary metal storage worker, except patient ICU, case discussed with the admitting physician will accept. (Ty Tsai) Patient reexamined at this time shows no signs of distress. Patient does have positive occult test here the emergency room. Patient was concerned that it thought was vaginal bleeding initially this morning. Her ultrasound was reviewed does show fibroid. Patient's labs have been reviewed stable hemoglobin. Patient is currently on Plavix. Patient given dose of Protonix. Patient also hypertensive here in the emergency room given dose of Vasotec. Patient will be admitted to the hospital with consult to GI. (Gilmar Castellanos) - Lab Data Lab Results 12/20/18 12/20/18 12/20/18 Range/Units 09:26 09:26 09:26 WBC 7.4 (3.8-10.6) k/uL RBC 4.27 (3.80-5.40) m/uL Hgb 13.2 (11.4-16.0) gm/dL Hct 40.2 (34.0-46.0) % MCV 94.1 (80.0-100.0) fL MCH 30.8 (25.0-35.0) pg MCHC 32.7 (31.0-37.0) g/dL RDW 13.5 (11.5-15.5) % Plt Count 287 (150-450) k/uL Neutrophils % 69 % Lymphocytes % 22 % Monocytes % 6 % Eosinophils % 2 % Basophils % 1 % Neutrophils # 5.2 (1.3-7.7) k/uL Lymphocytes # 1.6 (1.0-4.8) k/uL Monocytes # 0.4 (0-1.0) k/uL Eosinophils # 0.1 (0-0.7) k/uL Basophils # 0.1 (0-0.2) k/uL PT 11.4 (9.0-12.0) sec INR 1.1 (<1.2) APTT 25.0 (22.0-30.0) sec Sodium 139 (137-145) mmol/L Potassium 3.8 (3.5-5.1) mmol/L Chloride 101 (98-107) mmol/L Carbon Dioxide 30 (22-30) mmol/L Anion Gap 8 mmol/L BUN 17 (7-17) mg/dL Creatinine 0.75 (0.52-1.04) mg/dL Est GFR (CKD-EPI)AfAm 84 (>60 ml/min/1.73 sqM) Est GFR (CKD-EPI)NonAf 73 (>60 ml/min/1.73 sqM) Glucose 205 H (74-99) mg/dL Calcium 9.2 (8.4-10.2) mg/dL Total Bilirubin 1.5 H (0.2-1.3) mg/dL AST 18 (14-36) U/L ALT 22 (9-52) U/L Alkaline Phosphatase 78 (38-126) U/L Total Protein 5.7 L (6.3-8.2) g/dL Albumin 3.3 L (3.5-5.0) g/dL Disposition <Ty Tsai - Last Filed: 12/20/18 11:47> Is patient prescribed a controlled substance at d/c from ED?: No Time of Disposition: 11:52 <Gilmar Castellanos - Last Filed: 12/20/18 11:52> Clinical Impression: GI bleed Disposition: ADMITTED IP TO THIS HOSP Condition: Good Referrals: Yee Sales MD [Primary Care Provider] - 1-2 days
[2018-12-20] MEDS ORDERED: ENALAPRILAT 1.25 MG/ML 1 ML VIAL IVP STA (09:39)
[2018-12-20 09:44] LABS: Basophils # (A) 0.1 k/uL (0-0.2); Basophils % (A) 1 %; Eosinophils # (A) 0.1 k/uL (0-0.7); Eosinophils % (A) 2 %; HCT 40.2 % (34.0-46.0); HGB 13.2 gm/dL (11.4-16.0); Lymphocytes # (A) 1.6 k/uL (1.0-4.8); Lymphocytes % (A) 22 %; MCH 30.8 pg (25.0-35.0); MCHC 32.7 g/dL (31.0-37.0); MCV 94.1 fL (80.0-100.0); Mean Platelet Volume 6.4; Monocytes # (A) 0.4 k/uL (0-1.0); Monocytes % (A) 6 %; Neutrophils # (A) 5.2 k/uL (1.3-7.7); Neutrophils % (A) 69 %; Platelet Count 287 k/uL (150-450); RBC 4.27 m/uL (3.80-5.40); RDW 13.5 % (11.5-15.5); WBC 7.4 k/uL (3.8-10.6)
[2018-12-20 10:00] LABS: Albumin 3.3 g/dL (3.5-5.0); Calcium 9.2 mg/dL (8.4-10.2); INR 1.1 (<1.2); Potassium 3.8 mmol/L (3.5-5.1); Prothrombin Time 11.4 sec (9.0-12.0); Total Bilirubin 1.5 mg/dL (0.2-1.3); Total Protein 5.7 g/dL (6.3-8.2)
--- NOTE | 2018-12-20 10:16 | US ---
EXAMINATION TYPE: US transvaginal DATE OF EXAM: 12/20/2018 COMPARISON: NONE CLINICAL HISTORY: vag bleeding. TECHNIQUE: Transvaginal (TV). Date of LMP: 88 year old post menopausal patient EXAM MEASUREMENTS: Uterus: 6.1 x 2.8 x 3.8 cm Endometrial Stripe: 0.5 cm Right Ovary: not visualized Left Ovary: not visualized 1. Uterus: Anteverted, fibroid measuring 1.9 x 1.9 x 2.1cm 2. Endometrium: Not well defined in its entirety. 3. Right Ovary: Obscured by overlying bowel gas, atrophy 4. Left Ovary: Obscured by overlying bowel gas, atrophy 5. Bilateral Adnexa: wnl 6. Posterior cul-de-sac: wnl Some limitations to exam due to patients full bladder and mobility. Echotexture of the uterus is hete rogeneous. IMPRESSION: Fibroid uterus. Exam is somewhat limited technically. Endometrial stripe thickness as marie cribed, consider ADMISSIONS COUNSELOR consult, endometrial biopsy as indicated.
[2018-12-20] MEDS ORDERED: PANTOPRAZOLE 40 MG/10 ML VIAL IVP STA (11:36)
[2018-12-20] MEDS ORDERED: SODIUM CHLORIDE 0.9% 1,000 ML IV ONE (11:52)
[2018-12-20] MEDS ORDERED: ONDANSETRON 4 MG/2 ML VIAL IVP PRN (11:52)
[2018-12-20] MEDS ORDERED: NALOXONE 0.4 MG/ML 1 ML VIAL IV PRN (11:52)
[2018-12-20] MEDS: SODIUM CHLORIDE 0.9% 1,000 ML IV SCH (12:16)
[2018-12-20 13:27] LABS: Glucose,Whole Blood 152 mg/dL (75-99)
[2018-12-20] MEDS: INSULIN ASPART 100 UNIT/ML 1 ML 10 ML VIAL SQ SCH ×3 (13:31→21:14)
[2018-12-20] MEDS ORDERED: LISINOPRIL 10 MG TAB PO STA (14:06)
[2018-12-20] MEDS ORDERED: ISOSORBIDE MONONITRATE ER 60 MG TAB.ER.24H PO STA (14:11)
[2018-12-20] MEDS: RANOLAZINE 500 MG TAB.ER.12H PO SCH ×2 (14:50→21:13)
--- NOTE | 2018-12-20 15:03 | P.CONS ---
History of Present Illness - Reason for Consult Consult date: 12/20/18 GI bleed Requesting physician: Tabitha Zimmer - Chief Complaint Vaginal bleeding - History of Present Illness 88-year-old female past medical history dysphagia, CAD PCI stent maintained on dual antiplatelet therapy, diabetes hyperlipidemia hypertension [place] renal disease cholecystectomy admitted with suspected vaginal bleeding. Transvaginal ultrasound reported fibroid uterus with endometrial stripe thickness. Nurse reports however there's been no vaginal bleeding instead patient was having rectal bleeding bright red. FOBT positive. No episodes of hematemesis or melena. Patient passed a brown bowel movement earlier this afternoon. Denies abdominal pain. Afebrile. Hemoglobin 13.2. White count 7.4. INR 1.1. BUN 17. Creatinine 0.7. Patient is on aspirin and Plavix last dose yesterday. Patient is unsure when her last colonoscopy was performed. Family not at bedside. EGD January 2018 for evaluation of intermittent abdominal pain dysphagia with findings of mild gastritis and a small hiatal hernia but no evidence of esophagitis or esophageal stricture. Review of Systems Constitutional: Denies fever, chills, sweats, weight gain, or loss. HEENT: Negative for migraines, blurred vision or loss, earaches, drainage, tinnitus, oral mucosal lesions, dysphagia, or odynophagia. CARDIAC: Negative for chest pain, arrhythmias, or palpitation. RESPIRATORY: Negative for shortness of breath, hemoptysis, cough, or sputum production. GI: See HPI for pertinent findings. : Negative for hematuria, urgency, frequency, polyuria, or dysuria. GYNc: Negative vaginal discharge. MUSCULOSKELETAL: Negative for muscle aches, swelling, arthritis, and arthralgias. NEUROLOGIC: Negative for stroke or TIA. ENDOCRINE: Negative for thyroid problems. SKIN: Negative for rash or itching. PSYCHIATRIC: Negative history for depression and anxietye Past Medical History Past Medical History: Coronary Artery Disease (CAD), CVA/TIA, Diabetes Mellitus , Hyperlipidemia, Hypertension, Myocardial Infarction ([place]), Renal Disease Additional Past Medical History / Comment(s): Pt reports that in May of 2017 she was diagnosed with renal failure Last Myocardial Infarction Date:: 11/18/17 History of Any Multi-Drug Resistant Organisms: None Reported Past Surgical History: Appendectomy, Back Surgery, Cholecystectomy, Heart Catheterization With Stent Additional Past Surgical History / Comment(s): neck surgery. wrist surgery approx 2014. heart cath 11/18/16 stent to LAD Date of Last Stent Placement:: 11/18/17 Past Psychological History: Depression Smoking Status: Former smoker Past Alcohol Use History: None Reported Past Drug Use History: None Reported - Past Family History Father Additional Family Medical History / Comment(s): Father at age 91 from old age. Mother Additional Family Medical History / Comment(s): Mother at age 85 with history of lupus. Brother(s) Additional Family Medical History / Comment(s): Patient's siblings have history of coronary artery disease, diabetes, hypertension, macular degeneration. Daughter(s) Additional Family Medical History / Comment(s): Patient has 11 children; 6 daughters and 5 sons. 3 have and 2 from kidney failure and one was murdered. Medications and Allergies Home Medications Medication Instructions Recorded Confirmed Type Aspirin [Adult Low Dose Aspirin EC] 81 mg PO DAILY 11/21/17 12/20/18 History Clopidogrel [Plavix] 75 mg PO DAILY 11/21/17 12/20/18 History Famotidine [Pepcid] 20 mg PO DAILY 11/21/17 12/20/18 History Metoprolol Tartrate [Lopressor] 50 mg PO BID #60 tab 11/25/17 12/20/18 Rx Ranolazine [Ranexa] 1,000 mg PO Q12HR #60 tab.er.12h 11/25/17 12/20/18 Rx Atorvastatin [Lipitor] 40 mg PO DAILY 01/02/18 12/20/18 History Galantamine [Razadyne] 4 mg PO AC-BID 01/02/18 12/20/18 History Isosorbide Mononitrate ER [Imdur] 60 mg PO QAM 02/02/18 12/20/18 History metFORMIN HCL [Glucophage] 500 mg PO BID 02/02/18 12/20/18 History Ergocalciferol (Vitamin D2) 50,000 unit PO Q14D 12/20/18 12/20/18 History [Vitamin D2] Escitalopram [Lexapro] 10 mg PO DAILY 12/20/18 12/20/18 History Lisinopril 30 mg PO DAILY 12/20/18 12/20/18 History Allergies Allergy/AdvReac Type Severity Reaction Status Date / Time hydrocodone [From [place]] Allergy Rash/Hives Verified 12/20/18 09:22 naproxen sodium [From [place]ve] Allergy Itching,bessie Verified 12/20/18 09:22 h glimepiride [From Amaryl] AdvReac Nausea & Verified 12/20/18 09:22 Vomiting Physical Exam Vitals: Vital Signs Temp Pulse Resp BP Pulse Ox 12/20/18 12:30 18 187/67 12/20/18 12:00 18 197/66 12/20/18 11:49 18 197/66 95 12/20/18 11:30 20 204/69 12/20/18 10:30 192/82 95 12/20/18 10:00 219/70 95 12/20/18 09:30 207/64 95 12/20/18 08:24 98.2 F 60 18 210/72 96 Intake and Output 12/19/18 12/20/18 12/20/18 22:59 06:59 14:59 Other: Weight 79.379 kg General appearance: The patient is alert, oriented, in no acute distress. HET: Head is normocephalic and atraumatic. Pupils are equal and reactive. Oropharynx is clear without lesions. Neck: Supple without lymphadenopathy. Trachea midline. Heart: S1 S2. Regular rate and rhythm. Lungs: No crackles or wheezes are heard. Abdomen: Soft, nontender, nondistended with bowel sounds. No peritoneal signs. No palpable organomegaly or masses. Extremities: Normal skin color and turgor. No cyanosis, rash, ulceration, clubbing, or edema. Radial and pedal pulses are 2/4 bilaterally. Neurological: No focal deficits. Strength and sensation are grossly intact. Rectal: No blood brown stool on finger. No palpable masses. External nonthrombosed hemorrhoids. Results CBC & Chem 7: 12/20/18 09:26 12/20/18 09:26 Labs: Abnormal Lab Results - Last 24 Hours (Table) 12/20/18 12/20/18 12/20/18 Range/Units 09:26 12:30 13:06 Glucose 205 H (74-99) mg/dL POC Glucose (mg/dL) 152 H (75-99) mg/dL Total Bilirubin 1.5 H (0.2-1.3) mg/dL Total Protein 5.7 L (6.3-8.2) g/dL Albumin 3.3 L (3.5-5.0) g/dL Stool Occult Blood Positive H (Negative) Assessment and Plan (1) Rectal bleeding Narrative/Plan: 88-year-old female admitted with painless rectal bleeding with a history of coronary artery disease maintain on dual antiplatelet therapy. Possible acute colonic diverticular bleed possible colitis possible underlying neoplasm could not be excluded. Hemoglobin stable at 13.2. Presently passing nonbloody bowel movements. Current Visit: Yes Status: Acute Code(s): K62.5 - HEMORRHAGE OF ANUS AND RECTUM SNOMED Code(s): 95627467 Plan: 1. Lower endoscopy will be discussed by herpetologist and with family; inpatient endoscopy contingent on clinical course. Continue to monitor CBC daily and for any further episodes of rectal bleeding. Clear liquid diet for now. Antiplatelet medications are on hold. Will follow closely with you. Thank you for this kind referral and the opportunity to participate in the care of your patient. This consultation was discussed with Dr. Blair. The impression and plan of care have been directed as dictated.
[2018-12-20 16:28] LABS: HCT 34.8 % (34.0-46.0); HGB 11.7 gm/dL (11.4-16.0); MCH 31.9 pg (25.0-35.0); MCHC 33.7 g/dL (31.0-37.0); MCV 94.8 fL (80.0-100.0); Mean Platelet Volume 5.9; Platelet Count 246 k/uL (150-450); RBC 3.67 m/uL (3.80-5.40); RDW 13.6 % (11.5-15.5); WBC 7.5 k/uL (3.8-10.6)
[2018-12-20] MEDS: HYDROCHLOROTHIAZIDE 25 MG TAB PO SCH (16:28)
--- NOTE | 2018-12-20 17:00 | P.CNPUL ---
<Earline Dumas M - Last Filed: 12/20/18 16:39> History of Present Illness Consult date: 12/20/18 Requesting physician: Yee Sales Reason for consult: other Chief complaint: Blood per rectum History of present illness: This is a 88-year-old white female patient of Dr. Sales, with past medical history of hypertension, hyperlipidemia, type 2 diabetes, previous episode of myocardial infarction with stenting of the LAD in November 2017. Patient is a former smoker. Patient is on a combination of aspirin and Plavix for antiplatelet therapy. Patient was brought in by her daughter to the hospital on December 20, 2018 for evaluation of bleeding that started on Wednesday. Patient had noticed some right red blood in her underwear on Wednesday, and she was unsure whether it was vaginal or rectal. Over the weekend there had been no bleeding, and today patient again noted bright red blood which she thought was from her rectum, and this time patient had some steady drips of bright red blood from her rectum. No lightheadedness, no dizziness, no dyspnea, no chest pain. Patient did have a mild headache, does have history of high blood pressure and she did not take her blood pressure medication this morning. She has been having some mild abdominal pain on the right side of her abdomen for the past to 3 months. Her last colonoscopy was over 10 years ago, no abnormal findings, she had a EGD by Dr. Sullivan in January 2018 for abdominal pain and intermittent dysphagia to solids, was found to have mild gastritis and small hiatal hernia but no evidence of esophagitis or esophageal stricture. 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 Initial blood work showed WBC of 7.4, hemoglobin of 13.2, INR of 1.1, pro time of 11.4, electrolytes and renal profile were all within normal limits, LFTs were within normal limits, total bili was 1.5, for occult blood was positive. Patient had a couple more episodes of bright red blood per rectum while in the hospital. She has remained hemodynamically stable, room air pulse ox is 91%, she is afebrile, sinus bradycardia on the monitor. Blood pressure on presentation was 210/72, patient was given IV Lopressor, home medications have been reordered, etiology has been consulted, EKG showed sinus bradycardia with evidence of anterolateral infarct, undetermined age, and T-wave abnormality in the inferior leads suggesting ischemic changes. She was given IV hydration in the emergency department, her maintenance IV fluids are 0.9 normal saline at a rate of 75 ML per hour. Currently blood pressure is 163/58. Review of Systems All systems: negative Constitutional: Denies chills, Denies fever Eyes: denies blurred vision, denies pain Ears, nose, mouth and throat: Denies headache, Denies sore throat Cardiovascular: Denies chest pain, Denies shortness of breath Respiratory: Denies cough Gastrointestinal: Denies abdominal pain, Denies diarrhea, Denies nausea, Denies vomiting Genitourinary: Denies dysuria, Denies hematuria Musculoskeletal: Denies myalgias Integumentary: Denies pruritus, Denies rash Neurological: Denies numbness, Denies weakness Psychiatric: Denies anxiety, Denies depression Endocrine: Denies fatigue, Denies weight change Past Medical History Past Medical History: Coronary Artery Disease (CAD), CVA/TIA, Diabetes Mellitus , Hyperlipidemia, Hypertension, Myocardial Infarction ([place]), Renal Disease Additional Past Medical History / Comment(s): Pt reports that in May of 2017 she was diagnosed with renal failure Last Myocardial Infarction Date:: 11/18/17 History of Any Multi-Drug Resistant Organisms: None Reported Past Surgical History: Appendectomy, Back Surgery, Cholecystectomy, Heart Catheterization With Stent Additional Past Surgical History / Comment(s): neck surgery. wrist surgery approx 2014. heart cath 11/18/16 stent to LAD Past Anesthesia/Blood Transfusion Reactions: No Reported Reaction Additional Past Anesthesia/Blood Transfusion Reaction / Comment(s): Pt has clausterphobia. Date of Last Stent Placement:: 11/18/17 Smoking Status: Former smoker - Past Family History Father Additional Family Medical History / Comment(s): Father at age 91 from old age. Mother Additional Family Medical History / Comment(s): Mother at age 85 with history of lupus. Brother(s) Additional Family Medical History / Comment(s): Patient's siblings have history of coronary artery disease, diabetes, hypertension, macular degeneration. Daughter(s) Additional Family Medical History / Comment(s): Patient has 11 children; 6 daughters and 5 sons. 3 have and 2 from kidney failure and one was murdered. Sister(s) Additional Family Medical History / Comment(s): Pt had a sister live to be 102 yrs old. Medications and Allergies Home Medications Medication Instructions Recorded Confirmed Type Aspirin [Adult Low Dose Aspirin EC] 81 mg PO DAILY 11/21/17 12/20/18 History Clopidogrel [Plavix] 75 mg PO DAILY 11/21/17 12/20/18 History Famotidine [Pepcid] 20 mg PO DAILY 11/21/17 12/20/18 History Metoprolol Tartrate [Lopressor] 50 mg PO BID #60 tab 11/25/17 12/20/18 Rx Ranolazine [Ranexa] 1,000 mg PO Q12HR #60 tab.er.12h 11/25/17 12/20/18 Rx Atorvastatin [Lipitor] 40 mg PO DAILY 01/02/18 12/20/18 History Galantamine [Razadyne] 4 mg PO AC-BID 01/02/18 12/20/18 History Isosorbide Mononitrate ER [Imdur] 60 mg PO QAM 02/02/18 12/20/18 History metFORMIN HCL [Glucophage] 500 mg PO BID 02/02/18 12/20/18 History Ergocalciferol (Vitamin D2) 50,000 unit PO Q14D 12/20/18 12/20/18 History [Vitamin D2] Escitalopram [Lexapro] 10 mg PO DAILY 12/20/18 12/20/18 History Lisinopril 30 mg PO DAILY 12/20/18 12/20/18 History Allergies Allergy/AdvReac Type Severity Reaction Status Date / Time hydrocodone [From [place]] Allergy Rash/Hives Verified 12/20/18 09:22 naproxen sodium [From Aleve] Allergy Itching,bessie Verified 12/20/18 09:22 h glimepiride [From Amaryl] AdvReac Nausea & Verified 12/20/18 09:22 Vomiting Physical Exam Vitals: Vital Signs Temp Pulse Resp BP Pulse Ox 12/20/18 15:00 57 L 21 173/68 93 L 12/20/18 14:00 56 L 12 185/71 93 L 12/20/18 13:11 98.1 F 60 15 199/74 91 L 12/20/18 12:30 18 187/67 12/20/18 12:00 18 197/66 12/20/18 11:49 18 197/66 95 12/20/18 11:30 20 204/69 12/20/18 10:30 192/82 95 12/20/18 10:00 219/70 95 12/20/18 09:30 207/64 95 12/20/18 08:24 98.2 F 60 18 210/72 96 Intake and Output 12/20/18 12/20/18 12/20/18 06:59 14:59 22:59 Intake Total 150 75 Balance 150 75 Intake: IV 150 75 Sodium Chloride 0.9% 1, 150 75 000 ml @ 75 mls/hr IV . [id number] ONE Rx#:[id number] Other: # Voids 1 # Bowel Movements 1 Weight 79.379 kg GENERAL EXAM: Alert, pleasant, 88-year-old white female comfortable in no apparent distress. HEAD: Normocephalic/atraumatic. EYES: Normal reaction of pupils, equal size. Conjunctiva pink, sclera white. NOSE: Clear with pink turbinates. THROAT: No erythema or exudates. NECK: No masses, no JVD, no thyroid enlargement, no adenopathy. CHEST: No chest wall deformity. Symmetrical expansion. LUNGS: Equal air entry with no crackles, wheeze, rhonchi or dullness. CVS: Regular rate and rhythm, normal S1 and S2, no gallops, no murmurs, no rubs ABDOMEN: Soft, nontender. No hepatosplenomegaly, normal bowel sounds, no guarding or rigidity. EXTREMITIES: No clubbing, no edema, no cyanosis, 2+ pulses and upper and lower extremities. MUSCULOSKELETAL: Muscle strength and tone normal. SPINE: No scoliosis or deformity SKIN: No rashes CENTRAL NERVOUS SYSTEM: Alert and oriented -3. No focal deficits, tone is normal in all 4 extremities. PSYCHIATRIC: Alert and oriented -3. Appropriate affect. Intact judgment and insight. Results - Laboratory Findings CBC and BMP: 12/20/18 16:11 12/20/18 09:26 PT/INR, D-dimer PT 11.4 sec (9.0-12.0) 12/20/18 09:26 INR 1.1 (<1.2) 12/20/18 09:26 Abnormal lab findings: Abnormal Labs 12/20/18 12/20/1812/20/19 09:26 12:30 13:06 RBC Glucose 205 H POC Glucose (mg/dL) 152 H Total Bilirubin 1.5 H Total Protein 5.7 L Albumin 3.3 L Stool Occult Blood Positive H 12/20/18 16:11 RBC 3.67 L Glucose POC Glucose (mg/dL) Total Bilirubin Total Protein Albumin Stool Occult Blood - Diagnostic Findings Chest x-ray: report reviewed, image reviewed Additional studies: Transvaginal ultrasound results were reviewed Assessment and Plan Plan: Assessment: #1. Rectal bleeding, patient presented with bright red blood per rectum. Stable hemoglobin, of 13.2, hemodynamically stable #2. Fibroid uterine tumor, endometrial stripe thickness #3. History of coronary artery disease, with previous stenting, on dual antiplatelet therapy with aspirin and Plavix. Stent to LAD in November 2017 #4. Hypertensive urgency #5. Hypertension, hyperlipidemia #6. History of hiatal hernia and esophagitis or esophageal stricture, and had a EGD in January 2018 for abdominal pain and intermittent dysphagia #7. Diabetes mellitus type II #8. Chronic kidney disease #9. Nicotine dependence, currently in remission Plan: Patient has had a few more episodes of intermittent bright red blood per rectum , hemoglobin remains stable, blood pressure is better controlled. We will obtain cardiac enzymes and troponin, baseline chest x-ray. GI service has been consulted, patient is on Protonix. Echocardiogram has been ordered by cardiology. Patient will remain in the intensive care unit, continue serial CBCs, close hemodynamic monitoring. I performed a history & physical examination of the patient and discussed their management with my nurse practitioner, Earline Dumas. I reviewed the nurse practitioner's note and agree with the documented findings and plan of care. Lung sounds are positive clear breath sounds. The findings and the impression was discussed with the patient. I attest to the documentation by the nurse practitioner. Time with Patient: Greater than 30 <Varinder Samano - Last Filed: 12/20/18 19:40> Physical Exam Vitals: Vital Signs Temp Pulse Resp BP Pulse Ox 12/20/18 19:00 61 16 181/58 91 L 12/20/18 18:30 67 14 173/55 94 L 12/20/18 18:00 67 21 164/43 91 L 12/20/18 17:30 64 18 131/83 94 L 12/20/18 17:00 61 13 174/57 92 L 12/20/18 16:30 58 L 15 163/58 91 L 12/20/18 16:00 98.2 F 57 L 18 101/66 90 L 12/20/18 15:30 61 14 198/70 91 L 12/20/18 15:00 57 L 21 173/68 93 L 12/20/18 14:00 56 L 12 185/71 93 L 12/20/18 13:11 98.1 F 60 15 199/74 91 L 12/20/18 12:30 18 187/67 12/20/18 12:00 18 197/66 12/20/18 11:49 18 197/66 95 12/20/18 11:30 20 204/69 12/20/18 10:30 192/82 95 12/20/18 10:00 219/70 95 12/20/18 09:30 207/64 95 12/20/18 08:24 98.2 F 60 18 210/72 96 Intake and Output 12/20/18 12/20/18 12/20/18 06:59 14:59 22:59 Intake Total 150 865 Output Total 300 Balance 150 565 Intake: IV 150 375 Sodium Chloride 0.9% 1, 150 375 000 ml @ 75 mls/hr IV . [id number] ONE Rx#:[id number] Oral 490 Output: Urine 300 Other: # Voids 1 # Bowel Movements 1 Weight 79.379 kg Results - Laboratory Findings CBC and BMP: 12/20/18 16:11 12/20/18 09:26 PT/INR, D-dimer PT 11.4 sec (9.0-12.0) 12/20/18 09:26 INR 1.1 (<1.2) 12/20/18 09:26 Abnormal lab findings: Abnormal Labs 12/20/18 12/20/18 12/20/18 09:26 12:30 13:06 RBC Glucose 205 H POC Glucose (mg/dL) 152 H Total Bilirubin 1.5 H Total Protein 5.7 L Albumin 3.3 L Urine Protein Urine Mucus Stool Occult Blood Positive H 12/20/18 12/20/18 12/20/18 16:11 17:14 17:15 RBC 3.67 L Glucose POC Glucose (mg/dL) 131 H Total Bilirubin Total Protein Albumin Urine Protein 1+ H Urine Mucus Rare H Stool Occult Blood Assessment and Plan Plan: The patient is currently inactive and stable. The patient has had no ongoing bleeding since she arrived to the intensive care unit. Hemoglobin is above 10. Hemodynamically stable. Will be seen by GI. The patient can be chest without to medical floor with a GI consultation.
--- NOTE | 2018-12-20 17:24 | CONS ---
CONSULTATION Mrs. Mcclain is an 88-year-old female who presented with lower GI bleeding. It is felt that her bleeding could be related to hemorrhoids. Cardiology consultation was requested because of hypertension and abnormal EKG. The patient has a known history of coronary artery disease, had presented in November 2017 with an acute non STEMI. Subsequently, underwent cardiac catheterization by Dr. Otto, was found to have severe triple-vessel coronary artery disease and underwent coronary angiography and subsequently stenting of her LAD. She has not had any further symptoms of chest pain. Her breathing has been stable. She denies any dizziness or palpitation. She has some peripheral edema, but not on a typical basis. She has no prior episode of GI bleeding. She has no nausea or vomiting. In the past, her left ventricular systolic function at the time of her presentation showed an ejection fraction that is preserved. The patient has had issue with her blood pressure at home and has been elevated. Her coronary risk factors are remarkable for the history of hypertension, hyperlipidemia. She is nonsmoker. She is diabetic. MEDICATION: At home included Glucophage 400 mg twice a day, Ranexa 1000 twice a day, lisinopril 30 mg daily, metoprolol tartrate 50 mg twice a day, isosorbide mononitrate 60 mg daily, Lexapro, Plavix 75 mg daily, Lipitor 40 mg daily and aspirin 81 mg daily. REVIEW OF SYSTEMS: RESPIRATORY system: She has no recent wheezing or cough. No history of documented obstructive lung disease. GI system: She had the lower GI bleeding with bright red blood. No nausea, vomiting. system no dysuria or hematuria. Nervous system: No stroke or seizure. PHYSICAL EXAMINATION: She is an 88-year-old female, alert, no apparent distress. Blood pressure running in the 170s to 180s and 190s with a heart rate in the 60s. LUNGS: Clear. HEAD: Normocephalic. EYES: Sclerae anicteric. NECK: Good carotid upstroke. No bruit. No jugular venous distention. LUNGS: Clear to auscultation. HEART: Regular rate and rhythm, S1, S2. No S3 with systolic murmur heard at the base, ejection type. No diastolic murmur. No rub. ABDOMEN: Soft, nontender. Positive bowel sounds. No organomegaly. EXTREMITIES: No edema. LAB DATA: BUN and creatinine 17 and 0.75, potassium 3.8, hemoglobin 13.2. EKG revealed a sinus mechanism with T-wave inversion anteriorly with no change compared with the old EKG. IMPRESSION: 1. Hypertension remains elevated, uncontrolled. 2. Gastrointestinal bleeding appears to be related to hemorrhoids. 3. History of coronary artery disease, stable. 4. Hyperlipidemia. 5. Diabetes mellitus. RECOMMENDATION: From the cardiac standpoint, I will add to her regimen hydrochlorothiazide 25 mg daily as well as hydralazine 25 mg twice a day. I will obtain echocardiogram with Doppler. Her aspirin and Plavix are on hold. If her hemoglobin is stable, I am hopeful we will be able to restart aspirin alone tomorrow. Thank you for this consult. We will follow with you. ZION / IJN: [id number] /
[2018-12-20 17:29] LABS: Glucose,Whole Blood 131 mg/dL (75-99)
[2018-12-20 17:56] LABS: Appearance,Urine Clear (Clear); Bilirubin,Urine Negative (Negative); Blood,Urine Negative (Negative); Color,Urine Yellow; Glucose,Urine (UA) Negative (Negative); Ketones,Urine Negative (Negative); Leukocyte Esterase,Urine Negative (Negative); Mucus,Urine Rare /hpf; Nitrite,Urine Negative (Negative); Protein,Urine 1+ (Negative); RBC,Urine 1 /hpf (0-5); Specific Gravity,Urine 1.012 (1.001-1.035); Squamous Epithelial Cell,Urine <1 /hpf (0-4); Urobilinogen,Urine <2.0 mg/dL (<2.0)
[2018-12-20 18:14] LABS: Creatine Kinase MB 0.6 ng/mL (0.0-2.4); Troponin I 0.025 ng/mL (0.000-0.034)
[2018-12-20] MEDS ORDERED: cloNIDine 0.3 MG/24HR PATCH TRANSDERM SCH (19:00)
[2018-12-20 20:08] LABS: Hemoglobin A1C 7.3 % (4.0-6.0)
--- NOTE | 2018-12-20 20:56 | XR ---
EXAMINATION: XR chest 1V portable DATE AND TIME: 12/20/2018 5:50 PM CLINICAL INDICATION: PHH; shortness of breath TECHNIQUE: Portable AP upright COMPARISON: 01/15/2018 FINDINGS: There is a fine reticular pattern of increased attenuation throughout the lungs, mildly silhouetting the pulmonary vasculature symmetrically. This pattern suggests mild interstitial phase pulmonary rubia a. In addition, the right hemidiaphragm is mildly elevated, more so than the prior study. There is also silhouetting of the right heart border, consistent with airlessness within the medial segment of the right middle lobe. The pleural spaces are negative as seen. The cardiac silhouette is moderately enlarged, unchanged. The skeletal structures and soft tissues are negative for acute findings. IMPRESSION: 1. Radiographic findings suggest mild interstitial phase pulmonary edema, presumably cardiogenic etio logy. 2. Anterolisthesis mediastinal right middle lobe, consistent with atelectasis. Concurrent bronchopne umonia can be clinically excluded.
[2018-12-20 21:05] LABS: Glucose,Whole Blood 167 mg/dL (75-99)
[2018-12-20] MEDS: hydrALAZINE HCL 25 MG TAB PO SCH (21:13)
[2018-12-20] MEDS: HYDROCORTISONE SUPPOSITORY 25 MG SUPP RECTAL SCH (21:14)
[2018-12-20] MEDS: PANTOPRAZOLE 40 MG/10 ML VIAL IVP SCH (21:14)
[2018-12-20] MEDS: METOPROLOL TARTRATE 50 MG TAB PO SCH (21:14)
[2018-12-21] MEDS: SODIUM CHLORIDE 0.9% 1,000 ML IV SCH ×3 (01:16→21:53)
[2018-12-21 07:09] LABS: Glucose,Whole Blood 152 mg/dL (75-99)
--- NOTE | 2018-12-21 08:28 | P.HPIM ---
History of Present Illness H&P Date: 12/20/18 Chief Complaint: Rectal bleed. This is a 88-year-old white female patient of Dr. Sales, with past medical history of hypertension, hyperlipidemia, type 2 diabetes, previous episode of myocardial infarction with stenting of the LAD in November 2017. Patient is a former smoker. Patient is on a combination of aspirin and Plavix for antiplatelet therapy. Patient was brought in by her daughter to the hospital on December 20, 2018 for evaluation of bleeding that started on Wednesday. Patient had noticed some right red blood in her underwear on Wednesday, and she was unsure whether it was vaginal or rectal. Over the weekend there had been no bleeding, and today patient again noted bright red blood which she thought was from her rectum, and this time patient had some steady drips of bright red blood from her rectum. No lightheadedness, no dizziness, no dyspnea, no chest pain. Patient did have a mild headache, does have history of high blood pressure and she did not take her blood pressure medication this morning. She has been having some mild abdominal pain on the right side of her abdomen for the past to 3 months. Her last colonoscopy was over 10 years ago, no abnormal findings, she had a EGD by Dr. Sullivan in January 2018 for abdominal pain and intermittent dysphagia to solids, was found to have mild gastritis and small hiatal hernia but no evidence of esophagitis or esophageal stricture. 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 Initial blood work showed WBC of 7.4, hemoglobin of 13.2, INR of 1.1, pro time of 11.4, electrolytes and renal profile were all within normal limits, LFTs were within normal limits, total bili was 1.5, for occult blood was positive. Patient had a couple more episodes of bright red blood per rectum while in the hospital. She has remained hemodynamically stable, room air pulse ox is 91%, she is afebrile, sinus bradycardia on the monitor. Blood pressure on presentation was 210/72, patient was given IV Lopressor, home medications have been reordered, etiology has been consulted, EKG showed sinus bradycardia with evidence of anterolateral infarct, undetermined age, and T-wave abnormality in the inferior leads suggesting ischemic changes. She was given IV hydration in the emergency department, her maintenance IV fluids are 0.9 normal saline at a rate of 75 ML per hour, initially it was thought the patient to be admitted to the intensive care unit however she was evaluated by physical medicine and pulmonary and he was decided for the patient to go to the [facility] care. Review of Systems Constitutional: Denies anorexia, Denies chronic pain, Denies fever, Denies lethargy, Denies weight gain Eyes: bilateral blurred vision, denies bulging eye Ears: bilateral: decreased hearing Ears, nose, mouth and throat: Denies dysphagia, Denies neck lump, Denies sore throat Cardiovascular: Reports decreased exercise tolerance, Reports dyspnea on exertion, Reports shortness of breath, Denies chest pain, Denies leg edema, Denies rapid heart beat, Denies syncope Respiratory: Denies congestion, Denies cough with sputum, Denies home oxygen, Denies sleep apnea, Denies snoring, Denies wheezing Gastrointestinal: Reports abdominal pain, Reports bloating, Reports BRBPR, Reports change in bowel habits, Reports hematochezia, Reports nausea, Denies diarrhea, Denies excessive gas, Denies hematemesis, Denies melena, Denies vomiting Genitourinary: Reports nocturia, Denies dysuria Menstruation: Reports postmenopausal Musculoskeletal: Reports gait dysfunction Musculoskeletal: absent: ankle pain, ankle stiffness, ankle swelling, elbow pain , elbow stiffness, elbow swelling, foot pain, foot stiffness, foot swelling, hand pain, hand stiffness, hand swelling, hip pain, hip stiffness, hip swelling , knee pain, knee stiffness, knee swelling, shoulder pain, shoulder stiffness, shoulder swelling, wrist pain, wrist stiffness, wrist swelling Integumentary: Denies pruritus, Denies rash Neurological: Denies numbness, Denies weakness Psychiatric: Reports anxiety, Reports depression, Reports memory loss, Denies sadness/tearfulness, Denies sleep disturbances, Denies suicidal ideation Endocrine: Denies fatigue, Denies weight change Past Medical History Past Medical History: Coronary Artery Disease (CAD), CVA/TIA, Diabetes Mellitus , Hyperlipidemia, Hypertension, Myocardial Infarction (SC), Renal Disease Additional Past Medical History / Comment(s): Pt reports that in May of 2017 she was diagnosed with renal failure Last Myocardial Infarction Date:: 11/18/17 History of Any Multi-Drug Resistant Organisms: None Reported Past Surgical History: Appendectomy, Back Surgery, Cholecystectomy, Heart Catheterization With Stent Additional Past Surgical History / Comment(s): neck surgery. wrist surgery approx 2014. heart cath 11/18/16 stent to LAD Date of Last Stent Placement:: 11/18/17 Past Psychological History: Depression Smoking Status: Former smoker Past Alcohol Use History: None Reported Past Drug Use History: None Reported - Past Family History Father Additional Family Medical History / Comment(s): Father at age 91 from old age. Mother Additional Family Medical History / Comment(s): Mother at age 85 with history of lupus. Brother(s) Additional Family Medical History / Comment(s): Patient's siblings have history of coronary artery disease, diabetes, hypertension, macular degeneration. Daughter(s) Additional Family Medical History / Comment(s): Patient has 11 children; 6 daughters and 5 sons. 3 have and 2 from kidney failure and one was murdered. Sister(s) Additional Family Medical History / Comment(s): Pt had a sister live to be 102 yrs old. Medications and Allergies Home Medications Medication Instructions Recorded Confirmed Type Aspirin [Adult Low Dose Aspirin EC] 81 mg PO DAILY 11/21/17 12/20/18 History Clopidogrel [Plavix] 75 mg PO DAILY 11/21/17 12/20/18 History Famotidine [Pepcid] 20 mg PO DAILY 11/21/17 12/20/18 History Metoprolol Tartrate [Lopressor] 50 mg PO BID #60 tab 11/25/17 12/20/18 Rx Ranolazine [Ranexa] 1,000 mg PO Q12HR #60 tab.er.12h 11/25/17 12/20/18 Rx Atorvastatin [Lipitor] 40 mg PO DAILY 01/02/18 12/20/18 History Galantamine [Razadyne] 4 mg PO AC-BID 01/02/18 12/20/18 History Isosorbide Mononitrate ER [Imdur] 60 mg PO QAM 02/02/18 12/20/18 History metFORMIN HCL [Glucophage] 500 mg PO BID 02/02/18 12/20/18 History Ergocalciferol (Vitamin D2) 50,000 unit PO Q14D 12/20/18 12/20/18 History [Vitamin D2] Escitalopram [Lexapro] 10 mg PO DAILY 12/20/18 12/20/18 History Lisinopril 30 mg PO DAILY 12/20/18 12/20/18 History Allergies Allergy/AdvReac Type Severity Reaction Status Date / Time hydrocodone [From [place]] Allergy Rash/Hives Verified 12/20/18 09:22 naproxen sodium [From Aleve] Allergy Itching,bessie Verified 12/20/18 09:22 h glimepiride [From Amaryl] AdvReac Nausea & Verified 12/20/18 09:22 Vomiting Physical Exam Vitals: Vital Signs Temp Pulse Resp BP Pulse Ox 12/20/18 12:30 18 187/67 12/20/18 12:00 18 197/66 12/20/18 11:49 18 197/66 95 12/20/18 11:30 20 204/69 12/20/18 10:30 192/82 95 12/20/18 10:00 219/70 95 12/20/18 09:30 207/64 95 12/20/18 08:24 98.2 F 60 18 210/72 96 Intake and Output 12/19/18 12/20/18 12/20/18 22:59 06:59 14:59 Other: Weight 79.379 kg - Constitutional General appearance: average body habitus, no acute distress - EENT Eyes: anicteric sclerae, EOMI, PERRLA, no ptosis, no scleral icterus, normal appearance ENT: hard of hearing, NA/AT, normal oropharynx, no thrush Ears: bilateral: normal - Neck Neck: no lymphadenopathy, normal ROM, no rigidity, no stridor, no thyromegaly Carotids: bilateral: upstroke normal Thyroid: bilateral: normal size - Respiratory Respiratory: bilateral: diminished, negative: dullness, rales, rhonchi, wheezing , prolonged expiration - Cardiovascular Rhythm: regular Heart sounds: normal: S1, S2 Abnormal Heart Sounds: systolic murmur, no S3 Gallop, no S4 Gallop, no click - Gastrointestinal General gastrointestinal: distended, normal bowel sounds, soft, tenderness ( Right lower quadrant.), no umbilical hernia, no ventral hernia - Integumentary Integumentary: normal, normal turgor - Neurologic Neurologic: CNII-XII intact - Musculoskeletal Musculoskeletal: gait normal, generalized weakness, strength equal bilaterally - Psychiatric Psychiatric: A&O x's 3, appropriate affect, no intact judgment & insight Results CBC & Chem 7: 12/20/18 16:11 12/20/18 09:26 Labs: Abnormal Lab Results - Last 24 Hours (Table) 12/20/18 Range/Units 09:26 Glucose 205 H (74-99) mg/dL Total Bilirubin 1.5 H (0.2-1.3) mg/dL Total Protein 5.7 L (6.3-8.2) g/dL Albumin 3.3 L (3.5-5.0) g/dL Thrombosis Risk Factor Assmnt - DVT/VTE Prophylaxis DVT/VTE Prophylaxis: Mechanical Prophylaxis ordered Assessment and Plan Assessment: Assessment and plan: 1. Lower GI bleed likely diverticular bleed however diverticulitis or neoplasm cannot be entirely ruled out. Admit patient to telemetry unit, monitor the patient's CBC every 6 hours, transfuse for hemoglobin less than 7, hold aspirin and Plavix for now, GI consultation for colonoscopy last colonoscopy was about 10 years ago, last EGD was done in 2018 and that showed mild gastritis with small hiatal hernia, continue patient on Protonix 40 mg IV push every 12 hours. 2. CAD post-PCI of the LAD. Hold aspirin and Plavix, continue patient on metoprolol 50 mg orally twice every day Lipitor 40 mg orally once every day, Imdur 60 mg orally once every day, Ranexa 1000 g orally twice every day. 3. 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 Continue lisinopril 30 mg orally once every day, clonidine patch 0.1 mg once every week, continue metoprolol 50 mg orally twice every day. Continue hydrochlorothiazide 25 mg orally once every day. 4. Hyperlipidemia. Continue Lipitor 40 mg orally once every day. 5. Vascular dementia. Continue Aricept 5 mg orally once every day. 6. Osteoarthritis. Stable. 7. Anxiety and depressive disorder. Continue Lexapro 10 mg orally once every day. 8. Diabetes mellitus type 2. Hold metformin, continue patient on sliding scale insulin. 9. DVT prophylaxis. Bilateral knee-high OLE hose. 10. GI prophylaxis. Continue Protonix 40 mg IV push every 12 hours. 11. Full code. 12. Admit to inpatient. Estimate length of stay 2 midnights.
[2018-12-21] MEDS: INSULIN ASPART 100 UNIT/ML 1 ML 10 ML VIAL SQ SCH ×4 (08:39→21:53)
[2018-12-21] MEDS: ATORVASTATIN 40 MG TAB PO SCH (08:39)
[2018-12-21] MEDS: ESCITALOPRAM 10 MG TAB PO SCH (08:40)
[2018-12-21] MEDS: HYDROCHLOROTHIAZIDE 25 MG TAB PO SCH (08:40)
[2018-12-21] MEDS: hydrALAZINE HCL 25 MG TAB PO SCH ×2 (08:40→21:19)
[2018-12-21] MEDS: METOPROLOL TARTRATE 50 MG TAB PO SCH ×2 (08:41→21:53)
[2018-12-21] MEDS: LISINOPRIL 10 MG TAB PO SCH (08:41)
[2018-12-21] MEDS: RANOLAZINE 500 MG TAB.ER.12H PO SCH ×2 (08:42→22:52)
[2018-12-21] MEDS: PANTOPRAZOLE 40 MG/10 ML VIAL IVP SCH ×2 (08:42→21:53)
[2018-12-21 09:43] LABS: Basophils % (A) 1 %; Eosinophils # (A) 0.1 k/uL (0-0.7); Eosinophils % (A) 3 %; HCT 35.2 % (34.0-46.0); HGB 11.8 gm/dL (11.4-16.0); Lymphocytes # (A) 1.5 k/uL (1.0-4.8); Lymphocytes % (A) 27 %; MCH 32.1 pg (25.0-35.0); MCHC 33.6 g/dL (31.0-37.0); MCV 95.6 fL (80.0-100.0); Mean Platelet Volume 6.1; Monocytes # (A) 0.4 k/uL (0-1.0); Monocytes % (A) 7 %; Neutrophils # (A) 3.2 k/uL (1.3-7.7); Neutrophils % (A) 60 %; Platelet Count 252 k/uL (150-450); RBC 3.68 m/uL (3.80-5.40); RDW 13.8 % (11.5-15.5); WBC 5.3 k/uL (3.8-10.6)
[2018-12-21 10:15] LABS: Albumin 2.7 g/dL (3.5-5.0); Calcium 8.3 mg/dL (8.4-10.2); Potassium 3.5 mmol/L (3.5-5.1); Total Bilirubin 1.7 mg/dL (0.2-1.3); Total Protein 4.7 g/dL (6.3-8.2)
--- NOTE | 2018-12-21 10:15 | ECHOF ---
Referral Reason:cad MEASUREMENTS -------- HEIGHT: 157.5 cm WEIGHT: 79.4 kg BP: 170/68 RVIDd: 2.3 cm (< 3.3) IVSd: 1.5 cm (0.6 - 1.1) LVIDd: 4.6 cm (3.9 - 5.3) LVPWd: 1.5 cm (0.6 - 1.1) IVSs: 1.9 cm LVIDs: 3.1 cm LVPWs: 1.9 cm LAESV Index (A-L): 19.27 ml/m Ao Diam: 2.9 cm (2.0 - 3.7) AV Cusp: 1.0 cm (1.5 - 2.6) LA Diam: 3.3 cm (2.7 - 3.8) MV E Jarvis: 0.98 m/s MV DecT: 241 ms MV A Jarvis: 1.15 m/s MV E/A Ratio: 0.85 AV maxP.26 mmHg AV meanP.67 mmHg RAP: 5.00 mmHg RVSP: 25.94 mmHg FINDINGS -------- Sinus rhythm. This was a technically difficult study with suboptimal views. The left ventricular size is normal. There is moderate concentric left ventricular hypertrophy. O verall left ventricular systolic function is normal with, an EF between 55 - 60 %. The right ventricle is normal in size and function. Normal LA size by volume 22+/-6 ml/m2. The right atrium was not well visualized. 3 ml of Lumason used There is mild aortic valve sclerosis. There is no evidence of aortic regurgitation. There is no e vidence of aortic stenosis. The mitral valve leaflets are mildly thickened. Mild mitral annular calcification present. There is trace to mild mitral regurgitation. Trace tricuspid regurgitation present. Right ventricular systolic pressure is normal at < 35 mmHg. There is no evidence of pulmonary hypertension. The pulmonic valve was not well visualized. The aortic root size is normal. Normal inferior vena cava with normal inspiratory collapse consistent with estimated right atrial pre ssure of 5 mmHg. There is no pericardial effusion. CONCLUSIONS -------- 1. Sinus rhythm. 2. This was a technically difficult study with suboptimal views. 3. The left ventricular size is normal. 4. There is moderate concentric left ventricular hypertrophy. 5. Overall left ventricular systolic function is normal with, an EF between 55 - 60 %. 6. Normal LA size by volume 22+/-6 ml/m2. 7. The right atrium was not well visualized. 8. 3 ml of Lumason used 9. There is mild aortic valve sclerosis. 10. The mitral valve leaflets are mildly thickened. 11. Mild mitral annular calcification present. 12. There is trace to mild mitral regurgitation. 13. Trace tricuspid regurgitation present. 14. Right ventricular systolic pressure is normal at < 35 mmHg. 15. There is no evidence of pulmonary hypertension. 16. The pulmonic valve was not well visualized. 17. The aortic root size is normal. 18. There is no pericardial effusion. CUT OUT WORKER: Ulises Correa RDCS
--- NOTE | 2018-12-21 10:20 | P.PN ---
Subjective This is a pleasant 88-year-old female past medical history significant for coronary artery disease s/p PCI of LAD secondary to NSTEMI 2017 maintained on dual anti-platelet therapy, diabetes mellitus, dyslipidemia and hypertension. She presented to the hospital with acute GI bleeding. Aspirin and plavix have been held since admission. She has been seen by GI services and bleeding thought to be from hemorrhoids. No plans for scope at this time. She denies any further bleeding in the stool since admission. She denies feeling any symptoms of chest pain, shortness of breath, dizziness or palpitations. Hgb today stable at 11.8. Blood pressure 151/53 heart rate 54. Hydralazine, hydrochlorothiazide and clonidine were added to her daily regimen yesterday. Echo obtained reveals preserved LV systolic function with EF 55-60%. GENERAL: Well-appearing, well-nourished and in no acute distress. NECK: Supple without JVD or thyromegaly. LUNGS: Breath sounds clear to auscultation bilaterally. Respiration equal and unlabored. No wheezes, rales or rhonchi. HEART: Regular rate and rhythm with systolic ejection murmur at the base, no rubs or gallops. S1 and S2 heard. EXTREMITIES: Normal range of motion, no edema. No clubbing or cyanosis. Peripheral pulses intact. ASSESSMENT Acute GI bleeding believed to be secondary to hemmorrhoids History of coronary artery disease s/p PCI on dual anti-platelet therapy Hypertension, uncontrolled Dyslipidemia Diabetes mellitus PLAN Hgb is stable with no further episodes of bleeding. Restart aspirin today if ok with GI services. Continue current anti-hypertensive regimen. We will continue to follow and make recommendations accordingly. Follow up with Dr. Otto upon discharge. Nurse Practitioner note has been reviewed, I agree with a documented findings and plan of care. Patient was seen and examined. Objective - Vital Signs Vital signs: Vital Signs Temp 98.2 F 12/21/18 05:31 Pulse 54 L 12/21/18 05:31 Resp 20 12/21/18 05:31 BP 151/53 12/21/18 05:31 Pulse Ox 92 L 12/21/18 05:31 Intake & Output 12/20/18 12/21/18 12/21/18 18:59 06:59 18:59 Intake Total 700 660 Output Total 300 Balance 400 660 Weight 79.379 kg Intake: IV 450 150 Sodium Chloride 0.9% 1, 450 150 000 ml @ 75 mls/hr IV . [id number] ONE Rx#:[id number] Oral 250 510 Output: Urine 300 Other: # Voids 1 # Bowel Movements 1 - Labs CBC & Chem 7: 12/21/18 08:21 12/21/18 08:21 Labs: Abnormal Lab Results - Last 24 Hours (Table) 12/20/18 12/20/18 12/20/18 Range/Units 09:26 09:26 12:30 RBC (3.80-5.40) m/uL Glucose 205 H (74-99) mg/dL POC Glucose (mg/dL) (75-99) mg/dL Hemoglobin A1c 7.3 H (4.0-6.0) % Total Bilirubin 1.5 H (0.2-1.3) mg/dL Total Protein 5.7 L (6.3-8.2) g/dL Albumin 3.3 L (3.5-5.0) g/dL Urine Protein (Negative) Urine Mucus (None) /hpf Stool Occult Blood Positive H (Negative) 12/20/18 12/20/18 12/20/18 Range/Units 13:06 16:11 17:14 RBC 3.67 L (3.80-5.40) m/uL Glucose (74-99) mg/dL POC Glucose (mg/dL) 152 H 131 H (75-99) mg/dL Hemoglobin A1c (4.0-6.0) % Total Bilirubin (0.2-1.3) mg/dL Total Protein (6.3-8.2) g/dL Albumin (3.5-5.0) g/dL Urine Protein (Negative) Urine Mucus (None) /hpf Stool Occult Blood (Negative) 12/20/18 12/20/18 12/21/18 Range/Units 17:15 21:02 07:08 RBC (3.80-5.40) m/uL Glucose (74-99) mg/dL POC Glucose (mg/dL) 167 H 152 H (75-99) mg/dL Hemoglobin A1c (4.0-6.0) % Total Bilirubin (0.2-1.3) mg/dL Total Protein (6.3-8.2) g/dL Albumin (3.5-5.0) g/dL Urine Protein 1+ H (Negative) Urine Mucus Rare H (None) /hpf Stool Occult Blood (Negative)
[2018-12-21] MEDS: DONEPEZIL 5 MG TAB PO SCH (10:34)
[2018-12-21] MEDS: ASPIRIN 81 MG PO SCH (10:34)
[2018-12-21] MEDS: ISOSORBIDE MONONITRATE ER 60 MG TAB.ER.24H PO SCH (10:34)
[2018-12-21 12:06] LABS: Glucose,Whole Blood 210 mg/dL (75-99)
--- NOTE | 2018-12-21 13:56 | P.PN ---
Subjective Progress Note Date: 12/21/18 This is a 88-year-old white female patient of Dr. Sales, with past medical history of hypertension, hyperlipidemia, type 2 diabetes, previous episode of myocardial infarction with stenting of the LAD in November 2017. Patient is a former smoker. Patient is on a combination of aspirin and Plavix for antiplatelet therapy. Patient was brought in by her daughter to the hospital on December 20, 2018 for evaluation of bleeding that started on Wednesday. Patient had noticed some right red blood in her underwear on Wednesday, and she was unsure whether it was vaginal or rectal. Over the weekend there had been no bleeding, and today patient again noted bright red blood which she thought was from her rectum, and this time patient had some steady drips of bright red blood from her rectum. No lightheadedness, no dizziness, no dyspnea, no chest pain. Patient did have a mild headache, does have history of high blood pressure and she did not take her blood pressure medication this morning. She has been having some mild abdominal pain on the right side of her abdomen for the past to 3 months. Her last colonoscopy was over 10 years ago, no abnormal findings, she had a EGD by Dr. Sullivan in January 2018 for abdominal pain and intermittent dysphagia to solids, was found to have mild gastritis and small hiatal hernia but no evidence of esophagitis or esophageal stricture. 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 Initial blood work showed WBC of 7.4, hemoglobin of 13.2, INR of 1.1, pro time of 11.4, electrolytes and renal profile were all within normal limits, LFTs were within normal limits, total bili was 1.5, for occult blood was positive. Patient had a couple more episodes of bright red blood per rectum while in the hospital. She has remained hemodynamically stable, room air pulse ox is 91%, she is afebrile, sinus bradycardia on the monitor. Blood pressure on presentation was 210/72, patient was given IV Lopressor, home medications have been reordered, etiology has been consulted, EKG showed sinus bradycardia with evidence of anterolateral infarct, undetermined age, and T-wave abnormality in the inferior leads suggesting ischemic changes. She was given IV hydration in the emergency department, her maintenance IV fluids are 0.9 normal saline at a rate of 75 ML per hour, initially it was thought the patient to be admitted to the intensive care unit however she was evaluated by physical medicine and pulmonary and he was decided for the patient to go to the [facility] care. 12/21: Patient has been seen by multiple consultants. Cardiology is seeing the patient and she is able to stop Plavix and has been cleared to resume aspirin 81 mg daily. GI is seeing the patient with no plan for endoscopy. Repeat hemoglobin is at 11.8. Patient has apparently been having diarrhea that sounds like more long-term and some incontinence of this. Stool specimen has been sent for C. difficile toxin. Plan to continue IV fluids and recheck tomorrow area possible discharge home tomorrow. We will ask PT and OT to evaluate the patient. She is currently tolerating a clear liquid diet. Review of Systems Constitutional: Denies anorexia, Denies chronic pain, Denies fever, Denies lethargy, Denies weight gain Eyes: bilateral blurred vision, denies bulging eye Ears: bilateral: decreased hearing Ears, nose, mouth and throat: Denies dysphagia, Denies neck lump, Denies sore throat Cardiovascular: Reports decreased exercise tolerance, Reports dyspnea on exertion, Reports shortness of breath, Denies chest pain, Denies leg edema, Denies rapid heart beat, Denies syncope Respiratory: Denies congestion, Denies cough with sputum, Denies home oxygen, Denies sleep apnea, Denies snoring, Denies wheezing Gastrointestinal: Reports abdominal pain, Reports bloating, Reports BRBPR, Reports change in bowel habits, Reports hematochezia, denies nausea, reports diarrhea, Denies excessive gas, Denies hematemesis, Denies melena, Denies vomiting Genitourinary: Reports nocturia, Denies dysuria Menstruation: Reports postmenopausal Musculoskeletal: Reports gait dysfunction Musculoskeletal: absent: ankle pain, ankle stiffness, ankle swelling, elbow pain , elbow stiffness, elbow swelling, foot pain, foot stiffness, foot swelling, hand pain, hand stiffness, hand swelling, hip pain, hip stiffness, hip swelling , knee pain, knee stiffness, knee swelling, shoulder pain, shoulder stiffness, shoulder swelling, wrist pain, wrist stiffness, wrist swelling Integumentary: Denies pruritus, Denies rash Neurological: Denies numbness, Denies weakness Psychiatric: Reports anxiety, Reports depression, Reports memory loss, Denies sadness/tearfulness, Denies sleep disturbances, Denies suicidal ideation Endocrine: Denies fatigue, Denies weight change Objective - Vital Signs Vital signs: Vital Signs Temp 98.2 F 12/21/18 05:31 Pulse 54 L 12/21/18 05:31 Resp 20 12/21/18 05:31 BP 151/53 12/21/18 05:31 Pulse Ox 92 L 12/21/18 05:31 Intake & Output 12/20/18 12/21/18 12/21/18 18:59 06:59 18:59 Intake Total 700 660 Output Total 300 Balance 400 660 Weight 79.379 kg Intake: IV 450 150 Sodium Chloride 0.9% 1, 450 150 000 ml @ 75 mls/hr IV . [id number] ONE Rx#:[id number] Oral 250 510 Output: Urine 300 Other: # Voids 1 1 # Bowel Movements 1 2 - Exam General appearance: average body habitus, no acute distress - EENT Eyes: anicteric sclerae, EOMI, PERRLA, no ptosis, no scleral icterus, normal appearance ENT: hard of hearing, NA/AT, normal oropharynx, no thrush Ears: bilateral: normal - Neck Neck: no lymphadenopathy, normal ROM, no rigidity, no stridor, no thyromegaly Carotids: bilateral: upstroke normal Thyroid: bilateral: normal size - Respiratory Respiratory: bilateral: diminished, negative: dullness, rales, rhonchi, wheezing , prolonged expiration - Cardiovascular Rhythm: regular Heart sounds: normal: S1, S2 Abnormal Heart Sounds: systolic murmur, no S3 Gallop, no S4 Gallop, no click - Gastrointestinal General gastrointestinal: distended, normal bowel sounds, soft, mild tenderness (Right lower quadrant.), no umbilical hernia, no ventral hernia - Integumentary Integumentary: normal, normal turgor - Neurologic Neurologic: CNII-XII intact - Musculoskeletal Musculoskeletal: gait normal, generalized weakness, strength equal bilaterally - Psychiatric Psychiatric: A&O x's 3, appropriate affect, no intact judgment & insight - Labs CBC & Chem 7: 12/21/18 08:21 12/21/18 08:21 Labs: Abnormal Lab Results - Last 24 Hours (Table) 12/20/18 12/20/18 12/20/18 Range/Units 09:26 12:30 13:06 RBC (3.80-5.40) m/uL Glucose (74-99) mg/dL POC Glucose (mg/dL) 152 H (75-99) mg/dL Hemoglobin A1c 7.3 H (4.0-6.0) % Calcium (8.4-10.2) mg/dL Total Bilirubin (0.2-1.3) mg/dL Total Protein (6.3-8.2) g/dL Albumin (3.5-5.0) g/dL Urine Protein (Negative) Urine Mucus (None) /hpf Stool Occult Blood Positive H (Negative) 12/20/18 12/20/18 12/20/18 Range/Units 16:11 17:14 17:15 RBC 3.67 L (3.80-5.40) m/uL Glucose (74-99) mg/dL POC Glucose (mg/dL) 131 H (75-99) mg/dL Hemoglobin A1c (4.0-6.0) % Calcium (8.4-10.2) mg/dL Total Bilirubin (0.2-1.3) mg/dL Total Protein (6.3-8.2) g/dL Albumin (3.5-5.0) g/dL Urine Protein 1+ H (Negative) Urine Mucus Rare H (None) /hpf Stool Occult Blood (Negative) 12/20/18 12/21/18 12/21/18 Range/Units 21:02 07:08 08:21 RBC 3.68 L (3.80-5.40) m/uL Glucose (74-99) mg/dL POC Glucose (mg/dL) 167 H 152 H (75-99) mg/dL Hemoglobin A1c (4.0-6.0) % Calcium (8.4-10.2) mg/dL Total Bilirubin (0.2-1.3) mg/dL Total Protein (6.3-8.2) g/dL Albumin (3.5-5.0) g/dL Urine Protein (Negative) Urine Mucus (None) /hpf Stool Occult Blood (Negative) 12/21/18 Range/Units 08:21 RBC (3.80-5.40) m/uL Glucose 157 H (74-99) mg/dL POC Glucose (mg/dL) (75-99) mg/dL Hemoglobin A1c (4.0-6.0) % Calcium 8.3 L (8.4-10.2) mg/dL Total Bilirubin 1.7 H (0.2-1.3) mg/dL Total Protein 4.7 L (6.3-8.2) g/dL Albumin 2.7 L (3.5-5.0) g/dL Urine Protein (Negative) Urine Mucus (None) /hpf Stool Occult Blood (Negative) Assessment and Plan Plan: 1. Lower GI bleed likely diverticular bleed however diverticulitis or neoplasm cannot be entirely ruled out. Admit patient to telemetry unit, monitor the patient's CBC every 6 hours, transfuse for hemoglobin less than 7, GI consultation with plan for monitoring and no endoscopy at this time. last colonoscopy was about 10 years ago, last EGD was done in 2018 and that showed mild gastritis with small hiatal hernia, continue patient on Protonix 40 mg IV push every 12 hours. Plavix has been formally discontinued by cardiology and patient is been resumed on baby aspirin. 2. CAD post-PCI of the LAD. Continue aspirin and discontinue Plavix, continue patient on metoprolol 50 mg orally twice every day Lipitor 40 mg orally once every day, Imdur 60 mg orally once every day, Ranexa 1000 g orally twice every day. 3. 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 Continue lisinopril 30 mg orally once every day, clonidine patch 0.1 mg once every week, continue metoprolol 50 mg orally twice every day. Continue hydrochlorothiazide 25 mg orally once every day. 4. Hyperlipidemia. Continue Lipitor 40 mg orally once every day. 5. Vascular dementia. Continue Aricept 5 mg orally once every day. 6. Osteoarthritis. Stable. 7. Anxiety and depressive disorder. Continue Lexapro 10 mg orally once every day. 8. Diabetes mellitus type 2. Hold metformin, continue patient on sliding scale insulin. 9. DVT prophylaxis. Bilateral knee-high OLE hose. 10. GI prophylaxis. Continue Protonix 40 mg IV push every 12 hours. 11. Full code. Discharge plan: To be determined. PT and OT added. Impression and plan of care have been directed as dictated by the signing physician. Donita Padron nurse practitioner acting as scribe for signing physician.
--- NOTE | 2018-12-21 14:40 | P.PN ---
Subjective Progress Note Date: 12/21/18 Principal diagnosis: GI bleed No active GI bleeding. C. diff negative. Denies abdominal pain. Objective - Vital Signs Vital signs: Vital Signs Temp 97.5 F L 12/21/18 13:06 Pulse 94 12/21/18 13:06 Resp 16 12/21/18 13:06 BP 110/77 12/21/18 13:06 Pulse Ox 93 L 12/21/18 13:06 Intake & Output 12/20/18 12/21/18 12/21/18 18:59 06:59 18:59 Intake Total 700 660 Output Total 300 Balance 400 660 Weight 79.379 kg Intake: IV 450 150 Sodium Chloride 0.9% 1, 450 150 000 ml @ 75 mls/hr IV . [id number] ONE Rx#:[id number] Oral 250 510 Output: Urine 300 Other: Voiding Method Bedside Commode Diaper # Voids 1 1 # Bowel Movements 1 2 - Exam General appearance: The patient is alert, oriented, in no acute distress. HET: Head is normocephalic and atraumatic. Pupils are equal and reactive. Oropharynx is clear without lesions. Neck: Supple without lymphadenopathy. Trachea midline. Heart: S1 S2. Regular rate and rhythm. Lungs: No crackles or wheezes are heard. Abdomen: Soft, nontender, nondistended with bowel sounds. No peritoneal signs. No palpable organomegaly or masses. Extremities: Normal skin color and turgor. No cyanosis, rash, ulceration, clubbing, or edema. Radial and pedal pulses are 2/4 bilaterally. Neurological: No focal deficits. Strength and sensation are grossly intact. - Labs CBC & Chem 7: 12/21/18 08:21 12/21/18 08:21 Labs: Abnormal Lab Results - Last 24 Hours (Table) 12/20/18 12/20/18 12/20/18 Range/Units 09:26 16:11 17:14 RBC 3.67 L (3.80-5.40) m/uL Glucose (74-99) mg/dL POC Glucose (mg/dL) 131 H (75-99) mg/dL Hemoglobin A1c 7.3 H (4.0-6.0) % Calcium (8.4-10.2) mg/dL Total Bilirubin (0.2-1.3) mg/dL Total Protein (6.3-8.2) g/dL Albumin (3.5-5.0) g/dL Urine Protein (Negative) Urine Mucus (None) /hpf 12/20/18 12/20/18 12/21/18 Range/Units 17:15 21:02 07:08 RBC (3.80-5.40) m/uL Glucose (74-99) mg/dL POC Glucose (mg/dL) 167 H 152 H (75-99) mg/dL Hemoglobin A1c (4.0-6.0) % Calcium (8.4-10.2) mg/dL Total Bilirubin (0.2-1.3) mg/dL Total Protein (6.3-8.2) g/dL Albumin (3.5-5.0) g/dL Urine Protein 1+ H (Negative) Urine Mucus Rare H (None) /hpf 12/21/18 12/21/18 12/21/18 Range/Units 08:21 08:21 12:05 RBC 3.68 L (3.80-5.40) m/uL Glucose 157 H (74-99) mg/dL POC Glucose (mg/dL) 210 H (75-99) mg/dL Hemoglobin A1c (4.0-6.0) % Calcium 8.3 L (8.4-10.2) mg/dL Total Bilirubin 1.7 H (0.2-1.3) mg/dL Total Protein 4.7 L (6.3-8.2) g/dL Albumin 2.7 L (3.5-5.0) g/dL Urine Protein (Negative) Urine Mucus (None) /hpf Assessment and Plan (1) Rectal bleeding Narrative/Plan: 88-year-old female admitted with painless rectal bleeding with a history of coronary artery disease maintain on dual antiplatelet therapy. Possible acute colonic diverticular bleed possible colitis possible underlying neoplasm could not be excluded. Hemoglobin stable at 13.2. Presently passing nonbloody bowel movements. Current Visit: Yes Status: Acute Code(s): K62.5 - HEMORRHAGE OF ANUS AND RECTUM SNOMED Code(s): 55703916 Plan: 1. Lower endoscopy at this time is not recommended per Dr. Blair considering advance age in no active bleeding. Will advance to low residue diet. No active bleeding. Continue to monitor CBC daily and for any further episodes of rectal bleeding. Follow up in GI office 1-2 weeks after discharge for reevaluation. Assessment and plan a care discussed with Dr. Blair
[2018-12-21] MEDS ORDERED: LOPERAMIDE 2 MG CAP PO STA (16:52)
[2018-12-21 17:03] LABS: Glucose,Whole Blood 147 mg/dL (75-99)
--- NOTE | 2018-12-21 19:15 | P.PN ---
Subjective Progress Note Date: 12/21/18 This patient was seen yesterday in the intensive care unit because of GI bleeding. I thought the patient was quite stable. The patient was doing well and she had no significant hemodynamic alteration. Hemoglobin has remained stable. Based on the time of this patient out of the intensive care unit. Since yesterday, the patient has not been any further GI bleeding. Hemoglobin is at 11.8. Patient was seen by gastroenterology. This is a painless rectal bleeding. According to that assessment, a colonoscopy was not recommended based on her advanced age. The patient's hemoglobin remains stable. Objective - Vital Signs Vital signs: Vital Signs Temp 97.5 F L 12/21/18 13:06 Pulse 94 12/21/18 13:06 Resp 16 12/21/18 13:06 BP 110/77 12/21/18 13:06 Pulse Ox 93 L 12/21/18 13:06 Intake & Output 12/21/18 12/21/18 12/22/18 06:59 18:59 06:59 Intake Total 660 600 Balance 660 600 Intake: IV 150 600 Sodium Chloride 0.9% 1, 150 600 000 ml @ 75 mls/hr IV . [id number] ONE Rx#:[id number] Oral 510 Other: Voiding Method Bedside Commode Diaper # Voids 1 # Bowel Movements 2 - Exam Appearance, comfortable likely distress HEAD: Normocephalic/atraumatic. EYES: Normal reaction of pupils, equal size. Conjunctiva pink, sclera white. NOSE: Clear with pink turbinates. THROAT: No erythema or exudates. NECK: No masses, no JVD, no thyroid enlargement, no adenopathy. CHEST: No chest wall deformity. Symmetrical expansion. LUNGS: Equal air entry with no crackles, wheeze, rhonchi or dullness. CVS: Regular rate and rhythm, normal S1 and S2, no gallops, no murmurs, no rubs ABDOMEN: Soft, nontender. No hepatosplenomegaly, normal bowel sounds, no guarding or rigidity. EXTREMITIES: No clubbing, no edema, no cyanosis, 2+ pulses and upper and lower extremities. MUSCULOSKELETAL: Muscle strength and tone normal. SPINE: No scoliosis or deformity SKIN: No rashes CENTRAL NERVOUS SYSTEM: Alert and oriented -3. No focal deficits, tone is normal in all 4 extremities. PSYCHIATRIC: Alert and oriented -3. Appropriate affect. Intact judgment and insight. - Labs CBC & Chem 7: 12/21/18 08:21 12/21/18 08:21 Labs: Abnormal Lab Results - Last 24 Hours (Table) 12/20/18 12/20/18 12/21/18 Range/Units 09:26 21:02 07:08 RBC (3.80-5.40) m/uL Glucose (74-99) mg/dL POC Glucose (mg/dL) 167 H 152 H (75-99) mg/dL Hemoglobin A1c 7.3 H (4.0-6.0) % Calcium (8.4-10.2) mg/dL Total Bilirubin (0.2-1.3) mg/dL Total Protein (6.3-8.2) g/dL Albumin (3.5-5.0) g/dL 12/21/18 12/21/18 12/21/18 Range/Units 08:21 08:21 12:05 RBC 3.68 L (3.80-5.40) m/uL Glucose 157 H (74-99) mg/dL POC Glucose (mg/dL) 210 H (75-99) mg/dL Hemoglobin A1c (4.0-6.0) % Calcium 8.3 L (8.4-10.2) mg/dL Total Bilirubin 1.7 H (0.2-1.3) mg/dL Total Protein 4.7 L (6.3-8.2) g/dL Albumin 2.7 L (3.5-5.0) g/dL 12/21/18 Range/Units 17:02 RBC (3.80-5.40) m/uL Glucose (74-99) mg/dL POC Glucose (mg/dL) 147 H (75-99) mg/dL Hemoglobin A1c (4.0-6.0) % Calcium (8.4-10.2) mg/dL Total Bilirubin (0.2-1.3) mg/dL Total Protein (6.3-8.2) g/dL Albumin (3.5-5.0) g/dL Assessment and Plan Plan: Assessment: #1. Rectal bleeding, patient presented with bright red blood per rectum. Stable hemoglobin, of 13.2, hemodynamically stable #2. Fibroid uterine tumor, endometrial stripe thickness #3. History of coronary artery disease, with previous stenting, on dual antiplatelet therapy with aspirin and Plavix. Stent to LAD in November 2017 #4. Hypertensive urgency #5. Hypertension, hyperlipidemia #6. History of hiatal hernia and esophagitis or esophageal stricture, and had a EGD in January 2018 for abdominal pain and intermittent dysphagia #7. Diabetes mellitus type II #8. Chronic kidney disease #9. Nicotine dependence, currently in remission Plan This patient is having painless rectal bleeding. There has been minor drop in hemoglobin which remains above 11. Hemodynamically stable. No need for any pulmonary critical care follow-up on this patient this point in time. The issue of a colonoscopy for diagnostic purposes will be kept up with gastroenterology and the appetite to undergo this procedure his blood this point in time for the above-mentioned reasons. I'm going to sign off the case. The the rest of the management to the medical team.
[2018-12-21 20:31] LABS: Glucose,Whole Blood 202 mg/dL (75-99)
[2018-12-21] MEDS: HYDROCORTISONE SUPPOSITORY 25 MG SUPP RECTAL SCH (22:53)
[2018-12-22 06:59] LABS: Glucose,Whole Blood 168 mg/dL (75-99)
[2018-12-22 08:02] LABS: HCT 34.4 % (34.0-46.0); HGB 10.7 gm/dL (11.4-16.0); MCH 30.6 pg (25.0-35.0); MCHC 31.1 g/dL (31.0-37.0); MCV 98.5 fL (80.0-100.0); Mean Platelet Volume 6.8; Platelet Count 202 k/uL (150-450); RBC 3.49 m/uL (3.80-5.40); RDW 13.7 % (11.5-15.5); WBC 6.6 k/uL (3.8-10.6)
[2018-12-22] MEDS: INSULIN ASPART 100 UNIT/ML 1 ML 10 ML VIAL SQ SCH ×4 (08:07→20:40)
[2018-12-22] MEDS: ATORVASTATIN 40 MG TAB PO SCH (08:08)
[2018-12-22] MEDS: DONEPEZIL 5 MG TAB PO SCH (08:08)
[2018-12-22] MEDS: ASPIRIN 81 MG PO SCH (08:08)
[2018-12-22] MEDS: hydrALAZINE HCL 25 MG TAB PO SCH ×2 (08:09→20:40)
[2018-12-22] MEDS: HYDROCHLOROTHIAZIDE 25 MG TAB PO SCH (08:09)
[2018-12-22] MEDS: ESCITALOPRAM 10 MG TAB PO SCH (08:09)
[2018-12-22] MEDS: ISOSORBIDE MONONITRATE ER 60 MG TAB.ER.24H PO SCH (08:10)
[2018-12-22] MEDS: LISINOPRIL 10 MG TAB PO SCH (08:10)
[2018-12-22] MEDS: METOPROLOL TARTRATE 50 MG TAB PO SCH ×2 (08:10→20:40)
[2018-12-22] MEDS: RANOLAZINE 500 MG TAB.ER.12H PO SCH ×2 (08:11→21:26)
[2018-12-22] MEDS: PANTOPRAZOLE 40 MG/10 ML VIAL IVP SCH ×2 (09:06→20:40)
[2018-12-22 11:05] LABS: Glucose,Whole Blood 206 mg/dL (75-99)
[2018-12-22] MEDS ORDERED: SODIUM CHLORIDE 0.9% 1,000 ML IV ONE (11:15)
--- NOTE | 2018-12-22 12:01 | P.PN ---
Subjective This is a pleasant 88-year-old female past medical history significant for coronary artery disease s/p PCI of LAD secondary to NSTEMI 2017 maintained on dual anti-platelet therapy, diabetes mellitus, dyslipidemia and hypertension. She presented to the hospital with acute GI bleeding. GI has seen the patient and they are not recommending scopes at this time. Aspirin was resumed yesterday. She is seen and examined sitting up in the chair eating breakfast. She states she has had no further evidence of bleeding in her stool. She does describe an episode of shortness of breath this morning while she was getting up to the bathroom. No chest pain, dizziness or palpitations. This lasted for a brief time less than 30 seconds and subsided when she sat down to use the toilet. Echo obtained reveals preserved LV systolic function with EF 55 -60%. Laboratory data reviewed, WBC 6.6, hemoglobin 10.7 and platelets 202. Blood pressure 142/65 heart rate 57 afebrile maintaining oxygen saturation on room air GENERAL: Well-appearing, well-nourished and in no acute distress. NECK: Supple without JVD or thyromegaly. LUNGS: Breath sounds clear to auscultation bilaterally. Respiration equal and unlabored. No wheezes, rales or rhonchi. HEART: Regular rate and rhythm with systolic ejection murmur at the base, no rubs or gallops. S1 and S2 heard. EXTREMITIES: Normal range of motion, no edema. No clubbing or cyanosis. Peripheral pulses intact. ASSESSMENT Acute GI bleeding believed to be secondary to hemmorrhoids History of coronary artery disease s/p PCI on dual anti-platelet therapy Hypertension, uncontrolled Dyslipidemia Diabetes mellitus PLAN Hgb is stable with no further episodes of bleeding. Continue aspirin only. Plavix can be discontinued indefinitely since it has been over 1-year since her PCI. Continue current anti-hypertensive regimen. Check NTproBNP and repeat chest xrary. Nurse Practitioner note has been reviewed, I agree with a documented findings and plan of care. Patient was seen and examined. Objective - Vital Signs Vital signs: Vital Signs Temp 96.1 F L 12/22/18 11:36 Pulse 57 L 12/22/18 11:36 Resp 18 12/22/18 11:36 BP 142/65 12/22/18 11:36 Pulse Ox 94 L 12/22/18 11:36 Intake & Output 12/21/18 12/22/18 12/22/18 18:59 06:59 18:59 Intake Total 600 1250 Balance 600 1250 Intake: IV 600 Sodium Chloride 0.9% 1, 600 000 ml @ 75 mls/hr IV . [id number] ONE Rx#:[id number] Intake, IV Titration 650 Amount Sodium Chloride 0.9% 1, 650 000 ml @ 75 mls/hr IV . [id number] MYCHAL Rx#:[id number] Oral 600 Other: Voiding Method Bedside Commode Bedside Commode Bedside Commode Diaper # Voids 1 1 1 # Bowel Movements 2 - Labs CBC & Chem 7: 12/22/18 07:15 12/21/18 08:21 Labs: Abnormal Lab Results - Last 24 Hours (Table) 12/21/18 12/21/18 12/21/18 Range/Units 12:05 17:02 20:30 RBC (3.80-5.40) m/uL Hgb (11.4-16.0) gm/dL POC Glucose (mg/dL) 210 H 147 H 202 H (75-99) mg/dL 12/22/18 12/22/18 12/22/18 Range/Units 06:57 07:15 11:04 RBC 3.49 L (3.80-5.40) m/uL Hgb 10.7 L (11.4-16.0) gm/dL POC Glucose (mg/dL) 168 H 206 H (75-99) mg/dL
--- NOTE | 2018-12-22 12:48 | P.PN ---
Subjective Progress Note Date: 12/22/18 This is a 88-year-old white female patient of Dr. Sales, with past medical history of hypertension, hyperlipidemia, type 2 diabetes, previous episode of myocardial infarction with stenting of the LAD in November 2017. Patient is a former smoker. Patient is on a combination of aspirin and Plavix for antiplatelet therapy. Patient was brought in by her daughter to the hospital on December 20, 2018 for evaluation of bleeding that started on Wednesday. Patient had noticed some right red blood in her underwear on Wednesday, and she was unsure whether it was vaginal or rectal. Over the weekend there had been no bleeding, and today patient again noted bright red blood which she thought was from her rectum, and this time patient had some steady drips of bright red blood from her rectum. No lightheadedness, no dizziness, no dyspnea, no chest pain. Patient did have a mild headache, does have history of high blood pressure and she did not take her blood pressure medication this morning. She has been having some mild abdominal pain on the right side of her abdomen for the past to 3 months. Her last colonoscopy was over 10 years ago, no abnormal findings, she had a EGD by Dr. Sullivan in January 2018 for abdominal pain and intermittent dysphagia to solids, was found to have mild gastritis and small hiatal hernia but no evidence of esophagitis or esophageal stricture. 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 Initial blood work showed WBC of 7.4, hemoglobin of 13.2, INR of 1.1, pro time of 11.4, electrolytes and renal profile were all within normal limits, LFTs were within normal limits, total bili was 1.5, for occult blood was positive. Patient had a couple more episodes of bright red blood per rectum while in the hospital. She has remained hemodynamically stable, room air pulse ox is 91%, she is afebrile, sinus bradycardia on the monitor. Blood pressure on presentation was 210/72, patient was given IV Lopressor, home medications have been reordered, etiology has been consulted, EKG showed sinus bradycardia with evidence of anterolateral infarct, undetermined age, and T-wave abnormality in the inferior leads suggesting ischemic changes. She was given IV hydration in the emergency department, her maintenance IV fluids are 0.9 normal saline at a rate of 75 ML per hour, initially it was thought the patient to be admitted to the intensive care unit however she was evaluated by physical medicine and pulmonary and he was decided for the patient to go to the [facility] care. 12/21: Patient has been seen by multiple consultants. Cardiology is seeing the patient and she is able to stop Plavix and has been cleared to resume aspirin 81 mg daily. GI is seeing the patient with no plan for endoscopy. Repeat hemoglobin is at 11.8. Patient has apparently been having diarrhea that sounds like more long-term and some incontinence of this. Stool specimen has been sent for C. difficile toxin. Plan to continue IV fluids and recheck tomorrow area possible discharge home tomorrow. We will ask PT and OT to evaluate the patient. She is currently tolerating a clear liquid diet. 12/22: Patient is complaining of feeling dizzy whenever she sits up. Orthostatics are positive. Patient will be given bolus of 500 ML's of 0.9 normal saline. Repeat hemoglobin is 10.7. C. difficile toxin came back negative. GI has recommended a low residue diet. She denies having a bowel movement this morning. PT and OT are in place. Family is planning on discharged home. At the time she is ready. Repeat chest x-ray and proBNP ordered by cardiology. Plan to monitor patient overnight and possible discharge for tomorrow. Review of Systems Constitutional: Denies anorexia, Denies chronic pain, Denies fever, Denies lethargy, Denies weight gain Eyes: bilateral blurred vision, denies bulging eye Ears: bilateral: decreased hearing Ears, nose, mouth and throat: Denies dysphagia, Denies neck lump, Denies sore throat, Cardiovascular: Reports decreased exercise tolerance, Reports dyspnea on exertion, Reports shortness of breath, Denies chest pain, Denies leg edema, Denies rapid heart beat, Denies syncope, reports dizziness Respiratory: Denies congestion, Denies cough with sputum, Denies home oxygen, Denies sleep apnea, Denies snoring, Denies wheezing Gastrointestinal: Denies abdominal pain, Reports bloating, Reports change in bowel habits, Reports hematochezia, denies nausea, denies diarrhea, Denies excessive gas, Denies hematemesis, Denies melena, Denies vomiting Genitourinary: Reports nocturia, Denies dysuria Menstruation: Reports postmenopausal Musculoskeletal: Reports gait dysfunction Musculoskeletal: absent: ankle pain, ankle stiffness, ankle swelling, elbow pain , elbow stiffness, elbow swelling, foot pain, foot stiffness, foot swelling, hand pain, hand stiffness, hand swelling, hip pain, hip stiffness, hip swelling , knee pain, knee stiffness, knee swelling, shoulder pain, shoulder stiffness, shoulder swelling, wrist pain, wrist stiffness, wrist swelling Integumentary: Denies pruritus, Denies rash Neurological: Denies numbness, Denies weakness Psychiatric: Reports anxiety, Reports depression, Reports memory loss, Denies sadness/tearfulness, Denies sleep disturbances, Denies suicidal ideation Endocrine: Denies fatigue, Denies weight change Objective - Vital Signs Vital signs: Vital Signs Temp 98.4 F 12/22/18 07:45 Pulse 56 L 12/22/18 09:39 Resp 16 12/22/18 09:39 BP 148/67 12/22/18 09:39 Pulse Ox 93 L 12/22/18 09:39 Intake & Output 12/21/18 12/22/18 12/22/18 18:59 06:59 18:59 Intake Total 600 1250 Balance 600 1250 Intake: IV 600 Sodium Chloride 0.9% 1, 600 000 ml @ 75 mls/hr IV . [id number] ONE Rx#:[id number] Intake, IV Titration 650 Amount Sodium Chloride 0.9% 1, 650 000 ml @ 75 mls/hr IV . [id number] MY[facility] Rx#:[id number] Oral 600 Other: Voiding Method Bedside Commode Bedside Commode Bedside Commode Diaper # Voids 1 1 1 # Bowel Movements 2 - Exam General appearance: average body habitus, no acute distress - EENT Eyes: anicteric sclerae, EOMI, PERRLA, no ptosis, no scleral icterus, normal appearance ENT: hard of hearing, NA/AT, normal oropharynx, no thrush Ears: bilateral: normal - Neck Neck: no lymphadenopathy, normal ROM, no rigidity, no stridor, no thyromegaly Carotids: bilateral: upstroke normal Thyroid: bilateral: normal size - Respiratory Respiratory: bilateral: diminished, negative: dullness, rales, rhonchi, wheezing , prolonged expiration - Cardiovascular Rhythm: regular Heart sounds: normal: S1, S2 Abnormal Heart Sounds: systolic murmur, no S3 Gallop, no S4 Gallop, no click - Gastrointestinal General gastrointestinal: distended, normal bowel sounds, soft, no tenderness, no umbilical hernia, no ventral hernia - Integumentary Integumentary: normal, normal turgor - Neurologic Neurologic: CNII-XII intact - Musculoskeletal Musculoskeletal: gait normal, generalized weakness, strength equal bilaterally - Psychiatric Psychiatric: A&O x's 3, appropriate affect, no intact judgment & insight - Labs CBC & Chem 7: 12/22/18 07:15 12/21/18 08:21 Labs: Abnormal Lab Results - Last 24 Hours (Table) 12/21/18 12/21/18 12/21/18 Range/Units 12:05 17:02 20:30 RBC (3.80-5.40) m/uL Hgb (11.4-16.0) gm/dL POC Glucose (mg/dL) 210 H 147 H 202 H (75-99) mg/dL 12/22/18 12/22/18 12/22/18 Range/Units 06:57 07:15 11:04 RBC 3.49 L (3.80-5.40) m/uL Hgb 10.7 L (11.4-16.0) gm/dL POC Glucose (mg/dL) 168 H 206 H (75-99) mg/dL Assessment and Plan Plan: 1. Lower GI bleed likely diverticular bleed however diverticulitis or neoplasm cannot be entirely ruled out. Admit patient to telemetry unit, monitor the patient's CBC every 6 hours, transfuse for hemoglobin less than 7, GI consultation with plan for monitoring and no endoscopy at this time. last colonoscopy was about 10 years ago, last EGD was done in 2018 and that showed mild gastritis with small hiatal hernia, continue patient on Protonix 40 mg IV push every 12 hours. Plavix has been formally discontinued by cardiology and patient is been resumed on baby aspirin. 2. CAD post-PCI of the LAD. Continue aspirin and discontinue Plavix, continue patient on metoprolol 50 mg orally twice every day Lipitor 40 mg orally once every day, Imdur 60 mg orally once every day, Ranexa 1000 g orally twice every day. 3. 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 Continue lisinopril 30 mg orally once every day, clonidine patch 0.1 mg once every week, continue metoprolol 50 mg orally twice every day. Continue hydrochlorothiazide 25 mg orally once every day. 4. Hyperlipidemia. Continue Lipitor 40 mg orally once every day. 5. Vascular dementia. Continue Aricept 5 mg orally once every day. 6. Osteoarthritis. Stable. 7. Generalized anxiety disorder and recurrent depression. Continue Lexapro 10 mg orally once every day. 8. Diabetes mellitus type 2. Hold metformin, continue patient on sliding scale insulin. 9. DVT prophylaxis. Bilateral knee-high OLE hose. 10. GI prophylaxis. Continue Protonix 40 mg IV push every 12 hours. 11. Orthostatic hypotension. Patient given fluid bolus of 500 ML's. Continue IV fluids 75 mL per hour. CODE STATUS: Full code. Discharge plan: To be determined. PT and OT added. Impression and plan of care have been directed as dictated by the signing physician. Donita Padron nurse practitioner acting as scribe for signing physician.
--- NOTE | 2018-12-22 13:25 | P.PN ---
Subjective Progress Note Date: 12/22/18 Principal diagnosis: GI bleed No active GI bleeding. C. diff negative. Denies abdominal pain. Hemoglobin 10.7 today. Nursing says patient passed brown bowel movement last night. Objective - Vital Signs Vital signs: Vital Signs Temp 96.1 F L 12/22/18 11:36 Pulse 57 L 12/22/18 11:36 Resp 18 12/22/18 11:36 BP 142/65 12/22/18 11:36 Pulse Ox 94 L 12/22/18 11:36 Intake & Output 12/21/18 12/22/18 12/22/18 18:59 06:59 18:59 Intake Total 600 1250 Balance 600 1250 Intake: IV 600 Sodium Chloride 0.9% 1, 600 000 ml @ 75 mls/hr IV . [id number] ONE Rx#:[id number] Intake, IV Titration 650 Amount Sodium Chloride 0.9% 1, 650 000 ml @ 75 mls/hr IV . [id number] MYCHAL Rx#:[id number] Oral 600 Other: Voiding Method Bedside Commode Bedside Commode Bedside Commode Diaper # Voids 1 1 1 # Bowel Movements 2 - Exam General appearance: The patient is alert, oriented, in no acute distress. HET: Head is normocephalic and atraumatic. Pupils are equal and reactive. Oropharynx is clear without lesions. Neck: Supple without lymphadenopathy. Trachea midline. Heart: S1 S2. Regular rate and rhythm. Lungs: No crackles or wheezes are heard. Abdomen: Soft, nontender, nondistended with bowel sounds. No peritoneal signs. No palpable organomegaly or masses. Extremities: Normal skin color and turgor. No cyanosis, rash, ulceration, clubbing, or edema. Radial and pedal pulses are 2/4 bilaterally. Neurological: No focal deficits. Strength and sensation are grossly intact. - Labs CBC & Chem 7: 12/22/18 07:15 12/21/18 08:21 Labs: Abnormal Lab Results - Last 24 Hours (Table) 12/21/18 12/21/18 12/22/18 Range/Units 17:02 20:30 06:57 RBC (3.80-5.40) m/uL Hgb (11.4-16.0) gm/dL POC Glucose (mg/dL) 147 H 202 H 168 H (75-99) mg/dL 12/22/18 12/22/18 Range/Units 07:15 11:04 RBC 3.49 L (3.80-5.40) m/uL Hgb 10.7 L (11.4-16.0) gm/dL POC Glucose (mg/dL) 206 H (75-99) mg/dL Assessment and Plan (1) Rectal bleeding Narrative/Plan: 88-year-old female admitted with painless rectal bleeding with a history of coronary artery disease maintain on dual antiplatelet therapy. Possible acute colonic diverticular bleed possible colitis possible underlying neoplasm could not be excluded. Hemoglobin presently 10.7 decreased from admission however passing nonbloody bowel movements. Current Visit: Yes Status: Acute Code(s): K62.5 - HEMORRHAGE OF ANUS AND RECTUM SNOMED Code(s): 88623051 Plan: 1. Lower endoscopy at this time is not recommended per Dr. Blair considering advance age and no active bleeding. Continue to monitor CBC daily and for any further episodes of rectal bleeding. If patient's hemoglobin continues to drop consideration for inpatient EGD was discussed. Assessment and plan a care discussed with Dr. Blair
[2018-12-22] MEDS ORDERED: FUROSEMIDE 10 MG/ML 4 ML VIAL IV STA ×2 (13:29→14:41)
[2018-12-22 13:42] LABS: Glucose,Whole Blood 185 mg/dL (75-99)
--- NOTE | 2018-12-22 14:12 | XR ---
EXAMINATION TYPE: XR chest 1V portable DATE OF EXAM: 12/22/2018 COMPARISON: 12/20/2018 HISTORY: Shortness of breath FINDINGS: There are bilateral pleural effusions with cardiomegaly and bibasilar infiltrate. There is a diffuse interstitial pattern. Atherosclerotic change aorta. Postsurgical change overlying the cervical spine . Arthropathy shoulders. No pneumothorax. IMPRESSION: 1. Bilateral infiltrate and pleural effusion with cardiomegaly and diffuse interstitial pattern corre late for CHF.
[2018-12-22] MEDS: NITROGLYCERIN OINT 1 INCH/GM PACKET TOPICAL SCH ×3 (14:30→18:11)
[2018-12-22 17:39] LABS: Glucose,Whole Blood 217 mg/dL (75-99)
[2018-12-22] MEDS: SODIUM CHLORIDE 0.9% 1,000 ML IV SCH (18:14)
[2018-12-22 20:08] LABS: Glucose,Whole Blood 232 mg/dL (75-99)
[2018-12-22] MEDS: HYDROCORTISONE SUPPOSITORY 25 MG SUPP RECTAL SCH (21:26)
[2018-12-23] MEDS: NITROGLYCERIN OINT 1 INCH/GM PACKET TOPICAL SCH ×5 (00:34→19:14)
[2018-12-23] MEDS: hydrALAZINE HCL 25 MG TAB PO SCH ×3 (05:36→22:50)
[2018-12-23 05:37] LABS: Basophils % (A) 0 %; Eosinophils # (A) 0.2 k/uL (0-0.7); Eosinophils % (A) 3 %; HCT 32.7 % (34.0-46.0); HGB 10.5 gm/dL (11.4-16.0); Lymphocytes # (A) 1.2 k/uL (1.0-4.8); Lymphocytes % (A) 18 %; MCH 30.7 pg (25.0-35.0); MCV 95.9 fL (80.0-100.0); Mean Platelet Volume 6.7; Monocytes # (A) 0.4 k/uL (0-1.0); Monocytes % (A) 6 %; Neutrophils # (A) 4.9 k/uL (1.3-7.7); Neutrophils % (A) 72 %; Platelet Count 207 k/uL (150-450); RBC 3.41 m/uL (3.80-5.40); RDW 13.6 % (11.5-15.5); WBC 6.8 k/uL (3.8-10.6)
[2018-12-23 06:59] LABS: Glucose,Whole Blood 139 mg/dL (75-99)
[2018-12-23] MEDS: ASPIRIN 81 MG PO SCH (07:59)
[2018-12-23] MEDS: DONEPEZIL 5 MG TAB PO SCH (07:59)
[2018-12-23] MEDS: ATORVASTATIN 40 MG TAB PO SCH (07:59)
[2018-12-23] MEDS: RANOLAZINE 500 MG TAB.ER.12H PO SCH ×2 (08:00→20:15)
[2018-12-23] MEDS: LISINOPRIL 10 MG TAB PO SCH (08:00)
[2018-12-23] MEDS: ESCITALOPRAM 10 MG TAB PO SCH (08:00)
[2018-12-23] MEDS: HYDROCHLOROTHIAZIDE 25 MG TAB PO SCH (08:00)
[2018-12-23] MEDS: METOPROLOL TARTRATE 50 MG TAB PO SCH ×3 (08:00→21:49)
[2018-12-23] MEDS: INSULIN ASPART 100 UNIT/ML 1 ML 10 ML VIAL SQ SCH ×4 (08:01→21:49)
[2018-12-23] MEDS: PANTOPRAZOLE 40 MG/10 ML VIAL IVP SCH ×2 (09:07→20:20)
[2018-12-23] MEDS: SODIUM CHLORIDE 0.9% 1,000 ML IV SCH (09:08)
[2018-12-23] MEDS: FUROSEMIDE 10 MG/ML 4 ML VIAL IV SCH ×2 (09:08→20:19)
[2018-12-23 09:13] LABS: Calcium 8.2 mg/dL (8.4-10.2); Potassium 3.4 mmol/L (3.5-5.1)
[2018-12-23] MEDS ORDERED: POTASSIUM CHLORIDE ER 20 MEQ TAB.ER PO STA ×2 (09:41→11:50)
[2018-12-23 10:43] LABS: Glucose,Whole Blood 209 mg/dL (75-99)
[2018-12-23 11:37] LABS: Glucose,Whole Blood 192 mg/dL (75-99)
[2018-12-23] MEDS ORDERED: LISINOPRIL 10 MG TAB PO STA (11:50)
[2018-12-23] MEDS ORDERED: FUROSEMIDE 10 MG/ML 4 ML VIAL IV STA (11:50)
--- NOTE | 2018-12-23 12:20 | P.PN ---
Subjective This is a pleasant 88-year-old female past medical history significant for coronary artery disease s/p PCI of LAD secondary to NSTEMI 2017 maintained on dual anti-platelet therapy, diabetes mellitus, dyslipidemia and hypertension. She presented to the hospital with acute GI bleeding. GI has seen the patient and they are not recommending scopes at this time. Aspirin was resumed and hgb remains stable. Yesterday afternoon she had an episode of chest pain, shortness of breath, nausea and vomiting. Chest xray revealed bilateral infiltrates and pleural effusion and diffuse interstitial pattern. IV lasix 40 mg was given along with zofran. Troponins weer obtained x2 and are negative. She is seen and examined sitting up in bed today. She states she had a difficult night sleeping due to shortness of breath. She denies any further symptoms of chest discomfort or nausea/vomiting. She was noted to be orthostatic positive yesterday and primary care team gave her a fluid bolus earlier in the day. Blood pressure 164/67 heart rate 88. Laboratory data reviewed, WBC 6.8, hgb 10.5, plt 2017, sodium 135, potassium 3.4, creatining 0.98, cardiac enzymes negative x2, NTproBNP 6610. GENERAL: Well-appearing, well-nourished and in no acute distress. NECK: Supple without JVD or thyromegaly. LUNGS: Bibasilar rales. Respiration equal and unlabored. No wheezes or rhonchi. HEART: Regular rate and rhythm with systolic ejection murmur at the base, no rubs or gallops. S1 and S2 heard. EXTREMITIES: Normal range of motion, no edema. No clubbing or cyanosis. Peripheral pulses intact. ASSESSMENT Acute GI bleeding believed to be secondary to hemmorrhoids Acute on chronic diastolic heart failure History of coronary artery disease s/p PCI on dual anti-platelet therapy. Plavix has been discontinued. Hypertension, uncontrolled Dyslipidemia Diabetes mellitus PLAN Initiate on lasix 40 mg IV BID. Follow electrolytes and kidney function daily. Lisinopril has been increased by primary. Hydralazine can also be increased if needed for better blood pressure control. Nurse Practitioner note has been reviewed, I agree with a documented findings and plan of care. Patient was seen and examined. Objective - Vital Signs Vital signs: Vital Signs Temp 97.7 F 12/23/18 07:20 Pulse 60 12/23/18 07:20 Resp 18 12/23/18 07:20 BP 190/79 12/23/18 07:20 Pulse Ox 95 12/23/18 07:20 Intake & Output 12/22/18 12/23/18 12/23/18 18:59 06:59 18:59 Intake Total 240 360 Output Total 550 380 Balance -310 -20 Intake: Intake, IV Titration 240 Amount Sodium Chloride 0.9% 1, 240 000 ml @ 75 mls/hr IV . [id number] COUNTS INCLUDE 234 BEDS AT THE [facility] Rx#:[id number] Oral 240 120 Output: Urine 300 380 Emesis 250 Other: Voiding Method Bedside Commode Bedside Commode # Voids 2 1 - Labs CBC & Chem 7: 12/23/18 05:24 12/23/18 05:24 Labs: Abnormal Lab Results - Last 24 Hours (Table) 12/22/18 12/22/18 12/22/18 Range/Units 11:04 13:41 17:37 RBC (3.80-5.40) m/uL Hgb (11.4-16.0) gm/dL Hct (34.0-46.0) % POC Glucose (mg/dL) 206 H 185 H 217 H (75-99) mg/dL 12/22/18 12/23/18 12/23/18 Range/Units 20:07 05:24 06:59 RBC 3.41 L (3.80-5.40) m/uL Hgb 10.5 L (11.4-16.0) gm/dL Hct 32.7 L (34.0-46.0) % POC Glucose (mg/dL) 232 H 139 H (75-99) mg/dL
--- NOTE | 2018-12-23 13:24 | P.PN ---
Subjective Progress Note Date: 12/23/18 This is a 88-year-old white female patient of Dr. Sales, with past medical history of hypertension, hyperlipidemia, type 2 diabetes, previous episode of myocardial infarction with stenting of the LAD in November 2017. Patient is a former smoker. Patient is on a combination of aspirin and Plavix for antiplatelet therapy. Patient was brought in by her daughter to the hospital on December 20, 2018 for evaluation of bleeding that started on Wednesday. Patient had noticed some right red blood in her underwear on Wednesday, and she was unsure whether it was vaginal or rectal. Over the weekend there had been no bleeding, and today patient again noted bright red blood which she thought was from her rectum, and this time patient had some steady drips of bright red blood from her rectum. No lightheadedness, no dizziness, no dyspnea, no chest pain. Patient did have a mild headache, does have history of high blood pressure and she did not take her blood pressure medication this morning. She has been having some mild abdominal pain on the right side of her abdomen for the past to 3 months. Her last colonoscopy was over 10 years ago, no abnormal findings, she had a EGD by Dr. Sullivan in January 2018 for abdominal pain and intermittent dysphagia to solids, was found to have mild gastritis and small hiatal hernia but no evidence of esophagitis or esophageal stricture. 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 Initial blood work showed WBC of 7.4, hemoglobin of 13.2, INR of 1.1, pro time of 11.4, electrolytes and renal profile were all within normal limits, LFTs were within normal limits, total bili was 1.5, for occult blood was positive. Patient had a couple more episodes of bright red blood per rectum while in the hospital. She has remained hemodynamically stable, room air pulse ox is 91%, she is afebrile, sinus bradycardia on the monitor. Blood pressure on presentation was 210/72, patient was given IV Lopressor, home medications have been reordered, etiology has been consulted, EKG showed sinus bradycardia with evidence of anterolateral infarct, undetermined age, and T-wave abnormality in the inferior leads suggesting ischemic changes. She was given IV hydration in the emergency department, her maintenance IV fluids are 0.9 normal saline at a rate of 75 ML per hour, initially it was thought the patient to be admitted to the intensive care unit however she was evaluated by physical medicine and pulmonary and he was decided for the patient to go to the [facility] care. 12/21: Patient has been seen by multiple consultants. Cardiology is seeing the patient and she is able to stop Plavix and has been cleared to resume aspirin 81 mg daily. GI is seeing the patient with no plan for endoscopy. Repeat hemoglobin is at 11.8. Patient has apparently been having diarrhea that sounds like more long-term and some incontinence of this. Stool specimen has been sent for C. difficile toxin. Plan to continue IV fluids and recheck tomorrow area possible discharge home tomorrow. We will ask PT and OT to evaluate the patient. She is currently tolerating a clear liquid diet. 12/22: Patient is complaining of feeling dizzy whenever she sits up. Orthostatics are positive. Patient will be given bolus of 500 ML's of 0.9 normal saline. Repeat hemoglobin is 10.7. C. difficile toxin came back negative. GI has recommended a low residue diet. She denies having a bowel movement this morning. PT and OT are in place. Family is planning on discharged home. At the time she is ready. Repeat chest x-ray and proBNP ordered by cardiology. Plan to monitor patient overnight and possible discharge for tomorrow. 12/23: Patient is just ambulated in the hallway and pulse ox is 91% on room air. Patient will not require home oxygen. She did receive 1 dose of IV Lasix yesterday afternoon and IV fluids were decreased to KVO. Patient will be given 1 more dose of IV fluids. Her hemoglobin today is at 10.5. No plan for endoscopy. Patient is afebrile, heart rate running in the 50s to 80s, blood pressure 164/67. Lisinopril will be increased to 40 mg daily. Sodium 135, potassium 3.4 and will be replaced, BUN 19 creatinine 0.98. Blood sugar running between 139 at 232. Patient's daughter is at the bedside has been updated. Plan is to monitor overnight and plan for discharge home tomorrow. Review of Systems Constitutional: Denies anorexia, Denies chronic pain, Denies fever, Denies lethargy, Denies weight gain Eyes: bilateral blurred vision, denies bulging eye Ears: bilateral: decreased hearing Ears, nose, mouth and throat: Denies dysphagia, Denies neck lump, Denies sore throat, Cardiovascular: Reports decreased exercise tolerance, Reports dyspnea on exertion, Reports shortness of breath, Denies chest pain, Denies leg edema, Denies rapid heart beat, Denies syncope, reports dizziness Respiratory: Denies congestion, Denies cough with sputum, Denies home oxygen, Denies sleep apnea, Denies snoring, Denies wheezing Gastrointestinal: Denies abdominal pain, Reports bloating, Reports change in bowel habits, Reports hematochezia, denies nausea, denies diarrhea, Denies excessive gas, Denies hematemesis, Denies melena, Denies vomiting Genitourinary: Reports nocturia, Denies dysuria Menstruation: Reports postmenopausal Musculoskeletal: Reports gait dysfunction Musculoskeletal: absent: ankle pain, ankle stiffness, ankle swelling, elbow pain , elbow stiffness, elbow swelling, foot pain, foot stiffness, foot swelling, hand pain, hand stiffness, hand swelling, hip pain, hip stiffness, hip swelling , knee pain, knee stiffness, knee swelling, shoulder pain, shoulder stiffness, shoulder swelling, wrist pain, wrist stiffness, wrist swelling Integumentary: Denies pruritus, Denies rash Neurological: Denies numbness, Denies weakness Psychiatric: Reports anxiety, Reports depression, Reports memory loss, Denies sadness/tearfulness, Denies sleep disturbances Endocrine: Denies fatigue, Denies weight change Objective - Vital Signs Vital signs: Vital Signs Temp 97.7 F 12/23/18 10:54 Pulse 86 12/23/18 11:36 Resp 18 12/23/18 10:54 BP 164/67 12/23/18 11:06 Pulse Ox 94 L 12/23/18 11:36 Intake & Output 12/22/18 12/23/18 12/23/18 18:59 06:59 18:59 Intake Total 240 360 Output Total 550 380 Balance -310 -20 Weight 79.8 kg Intake: Intake, IV Titration 240 Amount Sodium Chloride 0.9% 1, 240 000 ml @ 75 mls/hr IV . [id number] [facility] Rx#:[id number] Oral 240 120 Output: Urine 300 380 Emesis 250 Other: Voiding Method Bedside Commode Bedside Commode Bedside Commode # Voids 2 1 - Exam General appearance: average body habitus, mild dyspnea noted after ambulating in the hallway with physical therapy - EENT Eyes: anicteric sclerae, EOMI, PERRLA, no ptosis, no scleral icterus, normal appearance ENT: hard of hearing, NA/AT, normal oropharynx, no thrush Ears: bilateral: normal - Neck Neck: no lymphadenopathy, normal ROM, no rigidity, no stridor, no thyromegaly Carotids: bilateral: upstroke normal Thyroid: bilateral: normal size - Respiratory Respiratory: bilateral: diminished, negative: dullness, rales, rhonchi, wheezing , prolonged expiration - Cardiovascular Rhythm: regular Heart sounds: normal: S1, S2 Abnormal Heart Sounds: systolic murmur, no S3 Gallop, no S4 Gallop, no click - Gastrointestinal General gastrointestinal: distended, normal bowel sounds, soft, no tenderness, no umbilical hernia, no ventral hernia - Integumentary Integumentary: normal, normal turgor - Neurologic Neurologic: CNII-XII intact - Musculoskeletal Musculoskeletal: gait normal, generalized weakness, strength equal bilaterally - Psychiatric Psychiatric: A&O x's 3, appropriate affect, no intact judgment & insight - Labs CBC & Chem 7: 12/23/18 05:24 12/23/18 05:24 Labs: Abnormal Lab Results - Last 24 Hours (Table) 12/22/18 12/22/18 12/22/18 Range/Units 13:41 17:37 20:07 RBC (3.80-5.40) m/uL Hgb (11.4-16.0) gm/dL Hct (34.0-46.0) % Sodium (137-145) mmol/L Potassium (3.5-5.1) mmol/L BUN (7-17) mg/dL Glucose (74-99) mg/dL POC Glucose (mg/dL) 185 H 217 H 232 H (75-99) mg/dL Calcium (8.4-10.2) mg/dL 12/23/18 12/23/18 12/23/18 Range/Units 05:24 05:24 06:59 RBC 3.41 L (3.80-5.40) m/uL Hgb 10.5 L (11.4-16.0) gm/dL Hct 32.7 L (34.0-46.0) % Sodium 135 L (137-145) mmol/L Potassium 3.4 L (3.5-5.1) mmol/L BUN 19 H (7-17) mg/dL Glucose 125 H (74-99) mg/dL POC Glucose (mg/dL) 139 H (75-99) mg/dL Calcium 8.2 L (8.4-10.2) mg/dL 12/23/18 12/23/18 Range/Units 10:42 11:36 RBC (3.80-5.40) m/uL Hgb (11.4-16.0) gm/dL Hct (34.0-46.0) % Sodium (137-145) mmol/L Potassium (3.5-5.1) mmol/L BUN (7-17) mg/dL Glucose (74-99) mg/dL POC Glucose (mg/dL) 209 H 192 H (75-99) mg/dL Calcium (8.4-10.2) mg/dL Assessment and Plan Plan: 1. Lower GI bleed likely diverticular bleed however diverticulitis or neoplasm cannot be entirely ruled out. Admit patient to telemetry unit, monitor the patient's CBC every 6 hours, transfuse for hemoglobin less than 7, GI consultation with plan for monitoring and no endoscopy at this time. last colonoscopy was about 10 years ago, last EGD was done in 2018 and that showed mild gastritis with small hiatal hernia, continue patient on Protonix 40 mg IV push every 12 hours. Plavix has been formally discontinued by cardiology and patient is been resumed on baby aspirin. 2. CAD post-PCI of the LAD. Continue aspirin and discontinue Plavix, continue patient on metoprolol 50 mg orally twice every day Lipitor 40 mg orally once every day, Imdur 60 mg orally once every day, Ranexa 1000 g orally twice every day. 3. 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 Continue lisinopril increased to 40 mg orally once every day, continue metoprolol 50 mg orally twice every day. Continue hydrochlorothiazide 25 mg orally once every day. 4. Hyperlipidemia. Continue Lipitor 40 mg orally once every day. 5. Vascular dementia. Continue Aricept 5 mg orally once every day. 6. Osteoarthritis. Stable. 7. Generalized anxiety disorder and recurrent depression. Continue Lexapro 10 mg orally once every day. 8. Diabetes mellitus type 2. Hold metformin, continue patient on sliding scale insulin. 9. DVT prophylaxis. Bilateral knee-high OLE hose. 10. GI prophylaxis. Continue Protonix 40 mg IV push every 12 hours. 11. Orthostatic hypotension. Status post fluid bolus of 500 ML's. 12. Fluid overload secondary to IV fluid. IV fluids discontinued. Patient will receive 1 dose of IV Lasix and potassium. CODE STATUS: Full code. Discharge plan: Home on Wednesday. Impression and plan of care have been directed as dictated by the signing physician. Dnoita Padron nurse practitioner acting as scribe for signing physician.
--- NOTE | 2018-12-23 16:05 | P.PN ---
Subjective Progress Note Date: 12/23/18 Principal diagnosis: Blood per rectum Patient lying in bed reporting that she is feeling better today. She had reported nausea and vomiting yesterday which has resolved. She had a nonbloody bowel movement yesterday but no bowel movements today. No signs or symptoms of GI bleeding. Objective - Vital Signs Vital signs: Vital Signs Temp 97.7 F 12/23/18 10:54 Pulse 86 12/23/18 11:36 Resp 18 12/23/18 10:54 BP 164/67 12/23/18 11:06 Pulse Ox 94 L 12/23/18 11:36 Intake & Output 12/22/18 12/23/18 12/23/18 18:59 06:59 18:59 Intake Total 240 360 Output Total 550 380 Balance -310 -20 Weight 79.8 kg Intake: Intake, IV Titration 240 Amount Sodium Chloride 0.9% 1, 240 000 ml @ 75 mls/hr IV . [id number] [facility] Rx#:[id number] Oral 240 120 Output: Urine 300 380 Emesis 250 Other: Voiding Method Bedside Commode Bedside Commode Bedside Commode # Voids 2 1 - Exam On physical examination, patient appears comfortable in no apparent distress. HEAD: Normocephalic, atraumatic. EYES: No scleral icterus. No conjunctival injection. MOUTH: No lesions, tongue midline. NECK: Trachea midline, no gross abnormalities. CHEST: Clear to auscultation with no wheezing or rhonchi appreciated. ABDOMEN: Soft, obese. Bowel sounds are positive. No organomegaly. No guarding or rigidity. EXTREMITIES: No pedal edema. SKIN: No rashes, no jaundice. NEUROLOGIC: Alert and oriented x3. No focal deficits. - Labs CBC & Chem 7: 12/23/18 05:24 12/23/18 05:24 Labs: Abnormal Lab Results - Last 24 Hours (Table) 12/22/18 12/22/18 12/23/18 Range/Units 17:37 20:07 05:24 RBC 3.41 L (3.80-5.40) m/uL Hgb 10.5 L (11.4-16.0) gm/dL Hct 32.7 L (34.0-46.0) % Sodium (137-145) mmol/L Potassium (3.5-5.1) mmol/L BUN (7-17) mg/dL Glucose (74-99) mg/dL POC Glucose (mg/dL) 217 H 232 H (75-99) mg/dL Calcium (8.4-10.2) mg/dL 12/23/18 12/23/18 12/23/18 Range/Units 05:24 06:59 10:42 RBC (3.80-5.40) m/uL Hgb (11.4-16.0) gm/dL Hct (34.0-46.0) % Sodium 135 L (137-145) mmol/L Potassium 3.4 L (3.5-5.1) mmol/L BUN 19 H (7-17) mg/dL Glucose 125 H (74-99) mg/dL POC Glucose (mg/dL) 139 H 209 H (75-99) mg/dL Calcium 8.2 L (8.4-10.2) mg/dL 12/23/18 Range/Units 11:36 RBC (3.80-5.40) m/uL Hgb (11.4-16.0) gm/dL Hct (34.0-46.0) % Sodium (137-145) mmol/L Potassium (3.5-5.1) mmol/L BUN (7-17) mg/dL Glucose (74-99) mg/dL POC Glucose (mg/dL) 192 H (75-99) mg/dL Calcium (8.4-10.2) mg/dL Assessment and Plan (1) Rectal bleeding Narrative/Plan: A 8-year-old female admitted with painless rectal bleeding with a history of coronary artery disease maintained on dual antiplatelet therapy. Unclear etiology, may be hemorrhoidal in nature given stability of patient's hemoglobin also on the differential includes AVM, or less likely colitis or underlying neoplasm. Hemoglobin has remained stable at 10.5 from 10.7 previously. Given the patient's age and multiple comorbidities she is in agreement with conservative medical management at this time. Current Visit: Yes Status: Acute Code(s): K62.5 - HEMORRHAGE OF ANUS AND RECTUM SNOMED Code(s): 94668163 Plan: Supportive care Okay for diet Monitor hemoglobin and hematocrit and transfuse as needed Monitor for signs or symptoms of GI bleeding, patient reporting normal bowel movement yesterday with no bowel movement today No plans for endoscopic evaluation at this time, however if patient has change in clinical status or further fall in hemoglobin we'll reevaluate at that time Thank you for allowing us to be dysphagia in care of the patient we will continue to follow
[2018-12-23 16:47] LABS: Glucose,Whole Blood 163 mg/dL (75-99)
[2018-12-23] MEDS: HYDROCORTISONE SUPPOSITORY 25 MG SUPP RECTAL SCH (20:18)
[2018-12-23 20:22] LABS: Glucose,Whole Blood 192 mg/dL (75-99)
[2018-12-23] MEDS ORDERED: hydrALAZINE HCL 10 MG TAB PO PRN (21:43)
[2018-12-23] MEDS ORDERED: amLODIPine 10 MG TAB PO STA (21:44)
[2018-12-23] MEDS ORDERED: amLODIPine 10 MG TAB PO ONE (23:45)
[2018-12-24] MEDS: NITROGLYCERIN OINT 1 INCH/GM PACKET TOPICAL SCH ×4 (03:32→17:29)
[2018-12-24] MEDS: METOPROLOL TARTRATE 50 MG TAB PO SCH ×5 (03:47→23:14)
[2018-12-24] MEDS: hydrALAZINE HCL 25 MG TAB PO SCH ×3 (03:58→09:16)
[2018-12-24 04:04] LABS: Basophils % (A) 0 %; Eosinophils # (A) 0.2 k/uL (0-0.7); Eosinophils % (A) 2 %; HCT 35.2 % (34.0-46.0); HGB 11.2 gm/dL (11.4-16.0); Lymphocytes # (A) 1.5 k/uL (1.0-4.8); Lymphocytes % (A) 22 %; MCH 30.5 pg (25.0-35.0); MCHC 31.9 g/dL (31.0-37.0); MCV 95.5 fL (80.0-100.0); Mean Platelet Volume 6.6; Monocytes # (A) 0.4 k/uL (0-1.0); Monocytes % (A) 6 %; Neutrophils # (A) 4.5 k/uL (1.3-7.7); Neutrophils % (A) 68 %; Platelet Count 231 k/uL (150-450); RBC 3.68 m/uL (3.80-5.40); RDW 13.8 % (11.5-15.5); WBC 6.6 k/uL (3.8-10.6)
[2018-12-24 04:26] LABS: Calcium 8.6 mg/dL (8.4-10.2); Potassium 3.9 mmol/L (3.5-5.1)
[2018-12-24 05:45] LABS: Glucose,Whole Blood 142 mg/dL (75-99)
[2018-12-24] MEDS: INSULIN ASPART 100 UNIT/ML 1 ML 10 ML VIAL SQ SCH ×4 (06:26→23:14)
[2018-12-24] MEDS: ESCITALOPRAM 10 MG TAB PO SCH (09:15)
[2018-12-24] MEDS: PANTOPRAZOLE 40 MG/10 ML VIAL IVP SCH ×2 (09:15→23:58)
[2018-12-24] MEDS: FUROSEMIDE 10 MG/ML 4 ML VIAL IV SCH ×2 (09:15→23:58)
[2018-12-24] MEDS: RANOLAZINE 500 MG TAB.ER.12H PO SCH (09:16)
[2018-12-24] MEDS: amLODIPine 10 MG TAB PO SCH (09:16)
[2018-12-24] MEDS: ASPIRIN 81 MG PO SCH (09:16)
[2018-12-24] MEDS: HYDROCHLOROTHIAZIDE 25 MG TAB PO SCH (09:16)
[2018-12-24] MEDS: ATORVASTATIN 40 MG TAB PO SCH (09:16)
[2018-12-24] MEDS: LISINOPRIL 20 MG TAB PO SCH (09:17)
[2018-12-24] MEDS: DONEPEZIL 5 MG TAB PO SCH (09:17)
[2018-12-24 11:24] LABS: Glucose,Whole Blood 192 mg/dL (75-99)
--- NOTE | 2018-12-24 12:11 | PN ---
PROGRESS NOTE DATE OF DICTATION: 12/24/2018 Patient is an 88-year-old pleasant white female admitted to the hospital with rectal bleeding of 2 days' duration. However, during the hospitalization her hemoglobin remained stable. The bleeding completely subsided 3 days ago. This morning she had one soft bowel movement which was non-bloody. She denies any abdominal pain. She was complaining of some chest discomfort and shortness of breath and hence was transferred to a selective unit last night. This morning she is feeling better. PHYSICAL EXAMINATION: She appears comfortable. No apparent distress. VITAL SIGNS: Stable. Blood pressure is 157/68, pulse rate 60, temperature 97.4. HEENT EXAMINATION: Unremarkable. Conjunctivae pink. Sclerae anicteric. Oral cavity no lesions. NECK: No JVD or lymph node enlargement. CHEST: Clear to auscultation. HEART: Regular rate and rhythm. ABDOMEN: Soft. It was nontender, nondistended, obese. Bowel sounds are positive. No organomegaly. EXTREMITIES: No pedal edema. SKIN: No rashes. NEUROLOGIC: Alert and oriented x3. No focal deficits. LABS: Hemoglobin 11.2, WBC 6.6. Platelets are normal. BUN 22, creatinine 1.01. Stool hemoccult was positive. IMPRESSION: 1. Rectal bleeding at the time of admission to hospital, since resolved. No bleeding for the last 3 days. Hemoglobin is stable at 11.2 g/dL. She was on dual antiplatelet therapy. At present she is on aspirin, but Plavix has been on hold. She remains hemodynamically stable. 2. History of congestive heart failure. 3. Diabetes mellitus. 4. Hypertension. 5. Hyperlipidemia. RECOMMENDATIONS: 1. Continue with supportive care. 2. CBC on a daily basis. 3. Monitor hemoglobin and hematocrit. 4. Since no bleeding at the current time, no plans for any endoscopic intervention. 5. Continue with present aspirin, but Plavix has been on hold because of recent bleed. We will sign off. Please call us if needed. Thank you for this consultation. MMODL / IJN: [id number] /
--- NOTE | 2018-12-24 12:21 | FL ---
EXAMINATION TYPE: FL barium swallow DATE OF EXAM: 12/24/2018 COMPARISON: NONE HISTORY: Dysphagia, globus sensation. TECHNIQUE: A double contrast esophagram is performed utilizing air and barium. A total of 1 minute and 17 seconds of fluoroscopic time was utilized during procedure. COMPARISON: None FINDINGS: Esophagus shows severely delayed motility and severely delayed emptying into the stomach. Overall the esophagus is minimally dilated. Multiple tertiary contractions were present throughout the entire esophagus. The lower esophageal sphincter does open however this is not well coordinated with upper esophageal contraction. The esophageal mucosal pattern appears normal. There is no evidence of esophageal stricture. No achalasia. There was no obvious evidence of gastroesophageal reflux however evaluation was severely limited secondary to patient intolerance of positioning. Evaluation was only performed in the supine position with Valsalva maneuver. IMPRESSION: 1. Severe esophageal dysmotility and delayed esophageal emptying. 2. No esophageal stricture hiatal hernia or achalasia. 3. No obvious gastroesophageal reflux although evaluation was severely limited secondary to patient inability to tolerate position change. MTDD
--- NOTE | 2018-12-24 13:41 | P.PN ---
Subjective Progress Note Date: 12/24/18 This is a 88-year-old white female patient of Dr. Sales, with past medical history of hypertension, hyperlipidemia, type 2 diabetes, previous episode of myocardial infarction with stenting of the LAD in November 2017. Patient is a former smoker. Patient is on a combination of aspirin and Plavix for antiplatelet therapy. Patient was brought in by her daughter to the hospital on December 20, 2018 for evaluation of bleeding that started on Wednesday. Patient had noticed some right red blood in her underwear on Wednesday, and she was unsure whether it was vaginal or rectal. Over the weekend there had been no bleeding, and today patient again noted bright red blood which she thought was from her rectum, and this time patient had some steady drips of bright red blood from her rectum. No lightheadedness, no dizziness, no dyspnea, no chest pain. Patient did have a mild headache, does have history of high blood pressure and she did not take her blood pressure medication this morning. She has been having some mild abdominal pain on the right side of her abdomen for the past to 3 months. Her last colonoscopy was over 10 years ago, no abnormal findings, she had a EGD by Dr. Sullivan in January 2018 for abdominal pain and intermittent dysphagia to solids, was found to have mild gastritis and small hiatal hernia but no evidence of esophagitis or esophageal stricture. 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 Initial blood work showed WBC of 7.4, hemoglobin of 13.2, INR of 1.1, pro time of 11.4, electrolytes and renal profile were all within normal limits, LFTs were within normal limits, total bili was 1.5, for occult blood was positive. Patient had a couple more episodes of bright red blood per rectum while in the hospital. She has remained hemodynamically stable, room air pulse ox is 91%, she is afebrile, sinus bradycardia on the monitor. Blood pressure on presentation was 210/72, patient was given IV Lopressor, home medications have been reordered, etiology has been consulted, EKG showed sinus bradycardia with evidence of anterolateral infarct, undetermined age, and T-wave abnormality in the inferior leads suggesting ischemic changes. She was given IV hydration in the emergency department, her maintenance IV fluids are 0.9 normal saline at a rate of 75 ML per hour, initially it was thought the patient to be admitted to the intensive care unit however she was evaluated by physical medicine and pulmonary and he was decided for the patient to go to the [facility] care. 12/21: Patient has been seen by multiple consultants. Cardiology is seeing the patient and she is able to stop Plavix and has been cleared to resume aspirin 81 mg daily. GI is seeing the patient with no plan for endoscopy. Repeat hemoglobin is at 11.8. Patient has apparently been having diarrhea that sounds like more long-term and some incontinence of this. Stool specimen has been sent for C. difficile toxin. Plan to continue IV fluids and recheck tomorrow area possible discharge home tomorrow. We will ask PT and OT to evaluate the patient. She is currently tolerating a clear liquid diet. 12/22: Patient is complaining of feeling dizzy whenever she sits up. Orthostatics are positive. Patient will be given bolus of 500 ML's of 0.9 normal saline. Repeat hemoglobin is 10.7. C. difficile toxin came back negative. GI has recommended a low residue diet. She denies having a bowel movement this morning. PT and OT are in place. Family is planning on discharged home. At the time she is ready. Repeat chest x-ray and proBNP ordered by cardiology. Plan to monitor patient overnight and possible discharge for tomorrow. 12/23: Patient is just ambulated in the hallway and pulse ox is 91% on room air. Patient will not require home oxygen. She did receive 1 dose of IV Lasix yesterday afternoon and IV fluids were decreased to KVO. Patient will be given 1 more dose of IV fluids. Her hemoglobin today is at 10.5. No plan for endoscopy. Patient is afebrile, heart rate running in the 50s to 80s, blood pressure 164/67. Lisinopril will be increased to 40 mg daily. Sodium 135, potassium 3.4 and will be replaced, BUN 19 creatinine 0.98. Blood sugar running between 139 at 232. Patient's daughter is at the bedside has been updated. Plan is to monitor overnight and plan for discharge home tomorrow. 12/24: During the night, patient developed some chest pain after she was choking on some food yesterday. She states she has a cough on and off and she often feels that food is getting stuck in her esophagus. She states this is been going on for some time. She ate sherbet with this problem yesterday. Most the time she can swallow her pills without problems. Patient was transferred to the cardiac stepdown unit and cardiology was requested to see the patient. Troponins have been negative on 3 draws. We have also asked for GI to reassess regarding the dysphagia. Esophagram has been ordered. Patient's daughter is at the bedside and all questions have been answered. Patient was looking forward to going home today but will agree to stay overnight and be monitored. Review of Systems Constitutional: Denies anorexia, Denies chronic pain, Denies fever, Denies lethargy, Denies weight gain Eyes: bilateral blurred vision, denies bulging eye Ears: bilateral: decreased hearing Ears, nose, mouth and throat: Reports dysphagia, Denies neck lump, Denies sore throat, Cardiovascular: Reports decreased exercise tolerance, Reports dyspnea on exertion, Reports shortness of breath, reports chest pain, Denies leg edema, Denies rapid heart beat, Denies syncope, reports dizziness Respiratory: Denies congestion, Denies cough with sputum, Denies home oxygen, Denies sleep apnea, Denies snoring, Denies wheezing Gastrointestinal: Denies abdominal pain, Reports bloating, Reports change in bowel habits, Reports hematochezia, denies nausea, denies diarrhea, Denies excessive gas, Denies hematemesis, Denies melena, Denies vomiting Genitourinary: Reports nocturia, Denies dysuria Menstruation: Reports postmenopausal Musculoskeletal: Reports gait dysfunction Musculoskeletal: absent: ankle pain, ankle stiffness, ankle swelling, elbow pain , elbow stiffness, elbow swelling, foot pain, foot stiffness, foot swelling, hand pain, hand stiffness, hand swelling, hip pain, hip stiffness, hip swelling , knee pain, knee stiffness, knee swelling, shoulder pain, shoulder stiffness, shoulder swelling, wrist pain, wrist stiffness, wrist swelling Integumentary: Denies pruritus, Denies rash Neurological: Denies numbness, Denies weakness Psychiatric: Reports anxiety, Reports depression, Reports memory loss, Denies sadness/tearfulness, Denies sleep disturbances Endocrine: Denies fatigue, Denies weight change Objective - Vital Signs Vital signs: Vital Signs Temp 97.9 F 12/24/18 09:04 Pulse 71 12/24/18 09:04 Resp 16 12/24/18 09:04 BP 159/71 12/24/18 09:04 Pulse Ox 97 12/24/18 09:04 Intake & Output 12/23/18 12/24/18 12/24/18 18:59 06:59 18:59 Intake Total 240 Output Total 380 350 Balance -380 -350 240 Weight 79.8 kg 80.5 kg Intake: Oral 240 Output: Urine 380 350 Other: Voiding Method Bedside Commode Bedside Commode # Voids 1 2 - Exam General appearance: average body habitus, patient resting in bed and appears to be comfortable in no acute distress - EENT Eyes: anicteric sclerae, EOMI, PERRLA, no ptosis, no scleral icterus, normal appearance ENT: hard of hearing, NA/AT, normal oropharynx, no thrush Ears: bilateral: normal - Neck Neck: no lymphadenopathy, normal ROM, no rigidity, no stridor, no thyromegaly Carotids: bilateral: upstroke normal Thyroid: bilateral: normal size - Respiratory Respiratory: bilateral: diminished, negative: dullness, rales, rhonchi, wheezing , prolonged expiration - Cardiovascular Rhythm: regular Heart sounds: normal: S1, S2 Abnormal Heart Sounds: systolic murmur, no S3 Gallop, no S4 Gallop, no click - Gastrointestinal General gastrointestinal: distended, normal bowel sounds, soft, no tenderness, no umbilical hernia, no ventral hernia - Integumentary Integumentary: normal, normal turgor - Neurologic Neurologic: CNII-XII intact - Musculoskeletal Musculoskeletal: gait normal, generalized weakness, strength equal bilaterally - Psychiatric Psychiatric: A&O x's 3, appropriate affect, no intact judgment & insight - Labs CBC & Chem 7: 12/24/18 03:30 12/24/18 03:30 Labs: Abnormal Lab Results - Last 24 Hours (Table) 12/23/18 12/23/18 12/23/18 Range/Units 11:36 16:46 20:04 RBC (3.80-5.40) m/uL Hgb (11.4-16.0) gm/dL Sodium (137-145) mmol/L BUN (7-17) mg/dL Glucose (74-99) mg/dL POC Glucose (mg/dL) 192 H 163 H 192 H (75-99) mg/dL 12/24/18 12/24/1819 Range/Units 03:30 03:30 05:43 RBC 3.68 L (3.80-5.40) m/uL Hgb 11.2 L (11.4-16.0) gm/dL Sodium 135 L (137-145) mmol/L BUN 22 H (7-17) mg/dL Glucose 123 H (74-99) mg/dL POC Glucose (mg/dL) 142 H (75-99) mg/dL Assessment and Plan Plan: 1. Lower GI bleed likely diverticular bleed however diverticulitis or neoplasm cannot be entirely ruled out. Admit patient to telemetry unit, monitor the patient's CBC every 6 hours, transfuse for hemoglobin less than 7, GI consultation with plan for monitoring and no endoscopy at this time. last colonoscopy was about 10 years ago, last EGD was done in 2018 and that showed mild gastritis with small hiatal hernia, continue patient on Protonix 40 mg IV push every 12 hours. Plavix has been formally discontinued by cardiology and patient is been resumed on baby aspirin. 2. CAD post-PCI of the LAD. Continue aspirin and discontinue Plavix, continue patient on metoprolol 50 mg orally twice every day Lipitor 40 mg orally once every day, Imdur 60 mg orally once every day, Ranexa 1000 g orally twice every day. 3. 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 Continue lisinopril increased to 40 mg orally once every day, continue metoprolol 50 mg orally twice every day. Continue hydrochlorothiazide 25 mg orally once every day. 4. Hyperlipidemia. Continue Lipitor 40 mg orally once every day. 5. Vascular dementia. Continue Aricept 5 mg orally once every day. 6. Osteoarthritis. Stable. 7. Generalized anxiety disorder and recurrent depression. Continue Lexapro 10 mg orally once every day. 8. Diabetes mellitus type 2. Hold metformin, continue patient on sliding scale insulin. 9. DVT prophylaxis. Bilateral knee-high OLE hose. 10. GI prophylaxis. Continue Protonix 40 mg IV push every 12 hours. 11. Orthostatic hypotension. Status post fluid bolus of 500 ML's. 12. Fluid overload secondary to IV fluid. IV fluids discontinued. Patient will receive 1 dose of IV Lasix and potassium. 13. Dysphagia and chest pain. Esophagram ordered and request evaluation by GI. CODE STATUS: Full code. Discharge plan: Home on Wednesday. Impression and plan of care have been directed as dictated by the signing physician. Donita Padron nurse practitioner acting as scribe for signing physician.
--- NOTE | 2018-12-24 16:14 | P.PN ---
Subjective Progress Note Date: 12/24/18 This is a pleasant 88-year-old female past medical history significant for coronary artery disease s/p PCI of LAD secondary to NSTEMI 2017 maintained on dual anti-platelet therapy, diabetes mellitus, dyslipidemia and hypertension. She presented to the hospital with acute GI bleeding. GI has seen the patient and they are not recommending scopes at this time. Aspirin was resumed and hgb remains stable. Yesterday afternoon she had an episode of chest pain, shortness of breath, nausea and vomiting. Chest xray revealed bilateral infiltrates and pleural effusion and diffuse interstitial pattern. IV lasix 40 mg was given along with zofran. Troponins weer obtained x2 and are negative. She was noted to be orthostatic positive a couple days back and primary care team gave her a fluid bolus. She was transferred to telemetry and we were asked to see the patient again for some complaints of chest discomfort. Objective - Vital Signs Vital signs: Vital Signs Temp 98.1 F 12/24/18 12:00 Pulse 50 L 12/24/18 12:00 Resp 18 12/24/18 12:00 BP 141/48 12/24/18 12:00 Pulse Ox 99 12/24/18 12:00 Intake & Output 12/23/18 12/24/18 12/24/18 18:59 06:59 18:59 Intake Total 480 Output Total 380 350 Balance -380 -350 480 Weight 79.8 kg 80.5 kg Intake: Oral 480 Output: Urine 380 350 Other: Voiding Method Bedside Commode Bedside Commode # Voids 1 2 - Exam PHYSICAL EXAMINATION: HEENT: Head is atraumatic, normocephalic. Pupils equal, round. Neck is supple. There is no elevated jugular venous pressure. HEART EXAMINATION: Heart sounds regular, S1 and S2 normal. No murmur or gallop heard. CHEST EXAMINATION: Lungs are clear to auscultation and precussion. No chest wall tenderness is noted on palpation or with deep breathing. ABDOMEN: Soft, nontender. Bowel sounds are heard. No organomegaly noted. EXTREMITIES: 2+ peripheral pulses with no evidence of peripheral edema and no calf tenderness noted. NEUROLOGIC patient is awake, alert and oriented x3. . - Labs CBC & Chem 7: 12/24/18 03:30 12/24/18 03:30 Labs: Abnormal Lab Results - Last 24 Hours (Table) 12/23/18 12/23/18 12/24/18 Range/Units 16:46 20:04 03:30 RBC (3.80-5.40) m/uL Hgb (11.4-16.0) gm/dL Sodium 135 L (137-145) mmol/L BUN 22 H (7-17) mg/dL Glucose 123 H (74-99) mg/dL POC Glucose (mg/dL) 163 H 192 H (75-99) mg/dL 12/24/18 12/24/18 12/24/18 Range/Units 03:30 05:43 11:23 RBC 3.68 L (3.80-5.40) m/uL Hgb 11.2 L (11.4-16.0) gm/dL Sodium (137-145) mmol/L BUN (7-17) mg/dL Glucose (74-99) mg/dL POC Glucose (mg/dL) 142 H 192 H (75-99) mg/dL Assessment and Plan Assessment: 1 acute GI bleeding believed to be secondary to hemmorrhoids #2 acute on chronic diastolic congestive heart failure, improved #3 history of CAD status post PCI, Plavix has been discontinued #4 hypertension #5 dyslipidemia #6 diabetes mellitus #7 symptoms of chest discomfort, troponins negative 3 Plan: From Cardiology's perspective, medications reviewed and will continue the same. At this time we'll follow the patient on an as-needed basis. Please do not hesitate to contact us with questions. [employer] note has been reviewed, I agree with a documented findings and plan of care. Patient was seen and examined.
[2018-12-24 16:53] LABS: Glucose,Whole Blood 151 mg/dL (75-99)
[2018-12-24] MEDS: hydrALAZINE HCL 50 MG TAB PO SCH ×2 (17:25→23:14)
[2018-12-24 23:02] LABS: Glucose,Whole Blood 162 mg/dL (75-99)
[2018-12-24] MEDS: HYDROCORTISONE SUPPOSITORY 25 MG SUPP RECTAL SCH (23:59)
[2018-12-25] MEDS: RANOLAZINE 500 MG TAB.ER.12H PO SCH ×2 (00:18→08:35)
[2018-12-25] MEDS: NITROGLYCERIN OINT 1 INCH/GM PACKET TOPICAL SCH ×3 (01:18→13:22)
[2018-12-25 05:48] VITALS: BP 163/72; PULSE 64; RESP 18; TEMP 98.7
[2018-12-25 07:15] LABS: Glucose,Whole Blood 135 mg/dL (75-99)
[2018-12-25 07:23] LABS: Basophils % (A) 0 %; Eosinophils # (A) 0.1 k/uL (0-0.7); Eosinophils % (A) 3 %; Lymphocytes # (A) 1.5 k/uL (1.0-4.8); Lymphocytes % (A) 28 %; MCH 31.8 pg (25.0-35.0); MCHC 33.2 g/dL (31.0-37.0); MCV 95.7 fL (80.0-100.0); Mean Platelet Volume 6.2; Monocytes # (A) 0.3 k/uL (0-1.0); Monocytes % (A) 5 %; Neutrophils # (A) 3.2 k/uL (1.3-7.7); Neutrophils % (A) 62 %; Platelet Count 254 k/uL (150-450); RBC 3.76 m/uL (3.80-5.40); RDW 13.7 % (11.5-15.5); WBC 5.2 k/uL (3.8-10.6)
[2018-12-25] MEDS: INSULIN ASPART 100 UNIT/ML 1 ML 10 ML VIAL SQ SCH ×2 (07:50→13:22)
[2018-12-25] MEDS: amLODIPine 10 MG TAB PO SCH (07:51)
[2018-12-25] MEDS: ATORVASTATIN 40 MG TAB PO SCH (07:51)
[2018-12-25] MEDS: ASPIRIN 81 MG PO SCH (07:51)
[2018-12-25] MEDS: DONEPEZIL 5 MG TAB PO SCH (07:51)
[2018-12-25] MEDS: FUROSEMIDE 10 MG/ML 4 ML VIAL IV SCH (07:52)
[2018-12-25] MEDS: hydrALAZINE HCL 50 MG TAB PO SCH (07:52)
[2018-12-25] MEDS: LISINOPRIL 20 MG TAB PO SCH (07:52)
[2018-12-25] MEDS: PANTOPRAZOLE 40 MG/10 ML VIAL IVP SCH (07:53)
[2018-12-25] MEDS: METOPROLOL TARTRATE 50 MG TAB PO SCH (07:53)
[2018-12-25] MEDS: HYDROCHLOROTHIAZIDE 25 MG TAB PO SCH (08:35)
[2018-12-25] MEDS: ESCITALOPRAM 10 MG TAB PO SCH (08:35)
[2018-12-25 11:04] LABS: Glucose,Whole Blood 200 mg/dL (75-99)
--- NOTE | 2018-12-25 11:27 | PN ---
PROGRESS NOTE Patient is an 88-year-old pleasant white female admitted to the hospital with rectal bleeding. She had bleeding for 2 days and then subsequently resolved. She was on antiplatelet agents with aspirin and Plavix, currently Plavix was on hold. For the last 3 days she did not have any further bleeding. She had exacerbation of congestive heart failure, was transferred to [facility]ive Unit and last night was transferred back to the floor. She is feeling much better. The shortness of breath has resolved. No nausea, no vomiting. Presently on a regular diet, tolerating well. Had a bowel movement last night, brown in color. PHYSICAL EXAMINATION: Appears comfortable, no apparent distress. Vital signs are stable. Blood pressure is 139/52, pulse rate 55, temperature 98.1. HEENT examination unremarkable. Conjunctivae pink. Sclerae anicteric. Oral cavity no lesions. NECK: No JVD or lymph node enlargement. Chest was clear to auscultation. HEART: Regular rate and rhythm. Abdomen is soft. Bowel sounds are positive. No organomegaly. EXTREMITIES: No pedal edema. SKIN: No rashes. NEUROLOGIC: Alert and oriented x3. No focal deficits. LABS: From today hemoglobin 12, WBC 5.2, platelets are normal. IMPRESSION: 1. Rectal bleeding for 2 days duration, probably diverticular in nature, probably internal hemorrhoids. Last colonoscopy 10 years ago was normal. The bleeding has subsided for the last 3 days and hemoglobin remains stable. 2. Exacerbation of congestive heart failure, presently on diuretics, doing much better. RECOMMENDATIONS: 1. Continue with current management. 2. No plans on any endoscopy intervention. 3. Will sign off. Please call us if needed. MMODL / IJN: [id number] /
--- NOTE | 2018-12-25 12:12 | P.DS ---
Providers Date of admission: 12/20/18 11:46 Expected date of discharge: 12/25/18 Attending physician: Tabitha Zimmer Consults: 12/20/18 11:52 Consult Physician Stat Consulting Provider: Varinder Samano Consult Reason/Comments: GI bleed Do you want consulting provider notified?: Yes Consult Physician Stat Consulting Provider: Avery Blair Consult Reason/Comments: GI bleed Do you want consulting provider notified?: Yes 12/20/18 13:58 Consult Physician Routine Consulting Provider: Singh Chen Consult Reason/Comments: abnormal EKG Do you want consulting provider notified?: Yes Primary care physician: Yee Sales [facility] Course: This is a 88-year-old white female patient of Dr. Sales, with past medical history of hypertension, hyperlipidemia, type 2 diabetes, previous episode of myocardial infarction with stenting of the LAD in November 2017. Patient is a former smoker. Patient is on a combination of aspirin and Plavix for antiplatelet therapy. Patient was brought in by her daughter to the hospital on December 20, 2018 for evaluation of bleeding that started on Wednesday. Patient had noticed some right red blood in her underwear on Wednesday, and she was unsure whether it was vaginal or rectal. Over the weekend there had been no bleeding, and today patient again noted bright red blood which she thought was from her rectum, and this time patient had some steady drips of bright red blood from her rectum. No lightheadedness, no dizziness, no dyspnea, no chest pain. Patient did have a mild headache, does have history of high blood pressure and she did not take her blood pressure medication this morning. She has been having some mild abdominal pain on the right side of her abdomen for the past to 3 months. Her last colonoscopy was over 10 years ago, no abnormal findings, she had a EGD by Dr. Sullivan in January 2018 for abdominal pain and intermittent dysphagia to solids, was found to have mild gastritis and small hiatal hernia but no evidence of esophagitis or esophageal stricture. 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 Initial blood work showed WBC of 7.4, hemoglobin of 13.2, INR of 1.1, pro time of 11.4, electrolytes and renal profile were all within normal limits, LFTs were within normal limits, total bili was 1.5, for occult blood was positive. Patient had a couple more episodes of bright red blood per rectum while in the hospital. She has remained hemodynamically stable, room air pulse ox is 91%, she is afebrile, sinus bradycardia on the monitor. Blood pressure on presentation was 210/72, patient was given IV Lopressor, home medications have been reordered, etiology has been consulted, EKG showed sinus bradycardia with evidence of anterolateral infarct, undetermined age, and T-wave abnormality in the inferior leads suggesting ischemic changes. She was given IV hydration in the emergency department, her maintenance IV fluids are 0.9 normal saline at a rate of 75 ML per hour, initially it was thought the patient to be admitted to the intensive care unit however she was evaluated by physical medicine and pulmonary and he was decided for the patient to go to the [facility]. 12/21: Patient has been seen by multiple consultants. Cardiology is seeing the patient and she is able to stop Plavix and has been cleared to resume aspirin 81 mg daily. GI is seeing the patient with no plan for endoscopy. Repeat hemoglobin is at 11.8. Patient has apparently been having diarrhea that sounds like more long-term and some incontinence of this. Stool specimen has been sent for C. difficile toxin. Plan to continue IV fluids and recheck tomorrow possible discharge home tomorrow. We will ask PT and OT to evaluate the patient. She is currently tolerating a clear liquid diet. 12/22: Patient is complaining of feeling dizzy whenever she sits up. Orthostatics are positive. Patient will be given bolus of 500 ML's of 0.9 normal saline. Repeat hemoglobin is 10.7. C. difficile toxin came back negative. GI has recommended a low residue diet. She denies having a bowel movement this morning. PT and OT are in place. Family is planning on discharged home. At the time she is ready. Repeat chest x-ray and proBNP ordered by cardiology. Plan to monitor patient overnight and possible discharge for tomorrow. 12/23: Patient is just ambulated in the hallway and pulse ox is 91% on room air. Patient will not require home oxygen. She did receive 1 dose of IV Lasix yesterday afternoon and IV fluids were decreased to KVO. Patient will be given 1 more dose of IV fluids. Her hemoglobin today is at 10.5. No plan for endoscopy. Patient is afebrile, heart rate running in the 50s to 80s, blood pressure 164/67. Lisinopril will be increased to 40 mg daily. Sodium 135, potassium 3.4 and will be replaced, BUN 19 creatinine 0.98. Blood sugar running between 139 at 232. Patient's daughter is at the bedside has been updated. Plan is to monitor overnight and plan for discharge home tomorrow. 12/24: During the night, patient developed some chest pain after she was choking on some food yesterday. She states she has a cough on and off and she often feels that food is getting stuck in her esophagus. She states this is been going on for some time. She ate sherbet with this problem yesterday. Most the time she can swallow her pills without problems. Patient was transferred to the cardiac stepdown unit and cardiology was requested to see the patient. Troponins have been negative on 3 draws. We have also asked for GI to reassess regarding the dysphagia. Esophagram has been ordered. Patient's daughter is at the bedside and all questions have been answered. Patient was looking forward to going home today but will agree to stay overnight and be monitored. 12/25: Patient states she is feeling well today. Esophagram from yesterday showed severe esophageal dysmotility and delayed esophageal emptying. Findings were discussed with the patient and recommended soft diet and aspiration precautions. Patient is ambulated and found to have a pulse ox of 88% on room air and home oxygen will be arranged. Patient will be discharged home today in stable condition. Discharge diagnoses: 1. Lower GI bleed likely diverticular bleed however diverticulitis or neoplasm cannot be entirely ruled out. 2. CAD post-PCI of the LAD. 3. Hypertension and hypertensive cardiovascular disease with hypertensive emergency requiring oral and IV medication. 4. Hyperlipidemia. 5. Vascular dementia. 6. Osteoarthritis. Stable. 7. Generalized anxiety disorder and recurrent depression. 8. Diabetes mellitus type 2. Hemoglobin A1c 7.3. 9. Orthostatic hypotension. 10. Acute diastolic heart failure requiring IV Lasix 11. Chronic respiratory failure requiring home oxygen with a pulse ox of 88% on room air with ambulation Discharge plan: Return home. Impression and plan of care have been directed as dictated by the signing physician. Donita Padron nurse practitioner acting as scribe for signing physician. Patient Condition at Discharge: Good Plan - Discharge Summary Discharge Rx Participant: No New Discharge Prescriptions: New amLODIPine [Norvasc] 10 mg PO DAILY #30 tab hydrALAZINE HCL [Apresoline] 50 mg PO TID #90 tab Hydrochlorothiazide [Hydrodiuril] 25 mg PO DAILY #30 tab Hydrocortisone Suppository [Anusol-Hc] 25 mg RECTAL HS supp Lisinopril [Zestril] 40 mg PO DAILY #30 tab Metoprolol Tartrate [Lopressor] 50 mg PO TID #90 tab Furosemide [Lasix] 40 mg PO DAILY #30 tablet Potassium Chloride ER [K-Dur 10] 10 meq PO BID #60 tab Continue Aspirin [Adult Low Dose Aspirin EC] 81 mg PO DAILY Famotidine [Pepcid] 20 mg PO DAILY Ranolazine [Ranexa] 1,000 mg PO Q12HR #60 tab.er.12h Atorvastatin [Lipitor] 40 mg PO DAILY Galantamine [Razadyne] 4 mg PO AC-BID metFORMIN HCL [Glucophage] 500 mg PO BID Ergocalciferol (Vitamin D2) [Vitamin D2] 50,000 unit PO Q14D Escitalopram [Lexapro] 10 mg PO DAILY Discontinued Clopidogrel [Plavix] 75 mg PO DAILY Metoprolol Tartrate [Lopressor] 50 mg PO BID #60 tab Isosorbide Mononitrate ER [Imdur] 60 mg PO QAM Lisinopril 30 mg PO DAILY Discharge Medication List Aspirin [Adult Low Dose Aspirin EC] 81 mg PO DAILY 11/21/17 [History] Famotidine [Pepcid] 20 mg PO DAILY 11/21/17 [History] Ranolazine [Ranexa] 1,000 mg PO Q12HR #60 tab.er.12h 11/25/17 [Rx] Atorvastatin [Lipitor] 40 mg PO DAILY 01/02/18 [History] Galantamine [Razadyne] 4 mg PO AC-BID 01/02/18 [History] metFORMIN HCL [Glucophage] 500 mg PO BID 02/02/18 [History] Ergocalciferol (Vitamin D2) [Vitamin D2] 50,000 unit PO Q14D 12/20/18 [History] Escitalopram [Lexapro] 10 mg PO DAILY 12/20/18 [History] Furosemide [Lasix] 40 mg PO DAILY #30 tablet 12/25/18 [Rx] Hydrochlorothiazide [Hydrodiuril] 25 mg PO DAILY #30 tab 12/25/18 [Rx] Hydrocortisone Suppository [Anusol-Hc] 25 mg RECTAL HS supp 12/25/18 [Rx] Lisinopril [Zestril] 40 mg PO DAILY #30 tab 12/25/18 [Rx] Metoprolol Tartrate [Lopressor] 50 mg PO TID #90 tab 12/25/18 [Rx] Potassium Chloride ER [K-Dur 10] 10 meq PO BID #60 tab 12/25/18 [Rx] amLODIPine [Norvasc] 10 mg PO DAILY #30 tab 12/25/18 [Rx] hydrALAZINE HCL [Apresoline] 50 mg PO TID #90 tab 12/25/18 [Rx] Follow up Appointment(s)/Referral(s): Yee Sales MD [Primary Care Provider] - 1 Week (Patient to call Dr. Sales's office Wednesday to schedule follow up appointment. The office is closed at time of discharge. ) Dean Otto MD [STAFF PHYSICIAN] - 2 Weeks (Patient to call Dr. Otto's office Wednesday to schedule follow up appointment. The office is closed at time of discharge. ) Nadege Barba MD [STAFF PHYSICIAN] - 1 Week (Patient to call Dr. Barba's office Wednesday to schedule follow up appointment. The office is closed at time of discharge. ) Avery Blair MD [STAFF PHYSICIAN] - 10 Days (Patient to call Dr. Blair's office Wednesday to schedule follow up appointment. The office is closed at time of discharge ) Patient Instructions/Handouts: Metoprolol (By mouth), Lisinopril (By mouth), Furosemide (By mouth), Hydrochlorothiazide (By mouth), Potassium Chloride (By mouth), Hydralazine (By mouth), Amlodipine (By mouth), Gastrointestinal Bleeding (DC), Rectal Bleeding (DC), Soft Diet (DC), Aspiration Precautions (DC) Activity/Diet/Wound Care/Special Instructions: Soft/chopped diet with aspiration precautions Activity as tolerated Discharge Disposition: HOME WITH HOME HEALTH SERVICES
== END 2018-12-25 14:40 | disposition home health service (06) | DRG 377 ==
LOC: EC 08:21 → 2SICU 11:46 → 3NMEDONC 22:32 → 3SCARD 12-24 00:16 → 3NMEDONC 12-24 20:45
PROVIDERS: ADMIT Internal Medicine; ATTEND Internal Medicine
DX: K57.33 Diverticulitis of large intestine without perforation or abscess with bleeding (principal); I50.33 Acute on chronic diastolic (congestive) heart failure; F33.9 Major depressive disorder, recurrent, unspecified; I13.0 Hypertensive heart and chronic kidney disease with heart failure and stage 1 through stage 4 chronic kidney disease, or unspecified chronic kidney disease; I16.1 Hypertensive emergency; J96.10 Chronic respiratory failure, unspecified whether with hypoxia or hypercapnia; Z79.02 Long term (current) use of antithrombotics/antiplatelets; Z79.82 Long term (current) use of aspirin; D25.9 Leiomyoma of uterus, unspecified; E11.22 Type 2 diabetes mellitus with diabetic chronic kidney disease; E78.5 Hyperlipidemia, unspecified; F01.50 Vascular dementia, unspecified severity, without behavioral disturbance, psychotic disturbance, mood disturbance, and anxiety; Z87.891 Personal history of nicotine dependence; F41.1 Generalized anxiety disorder; I25.2 Old myocardial infarction; I25.10 Atherosclerotic heart disease of native coronary artery without angina pectoris; I95.1 Orthostatic hypotension; K22.4 Dyskinesia of esophagus; K29.70 Gastritis, unspecified, without bleeding; K44.9 Diaphragmatic hernia without obstruction or gangrene; K64.8 Other hemorrhoids; M19.90 Unspecified osteoarthritis, unspecified site; N18.9 Chronic kidney disease, unspecified; Z79.84 Long term (current) use of oral hypoglycemic drugs; Z79.899 Other long term (current) drug therapy; Z82.49 Family history of ischemic heart disease and other diseases of the circulatory system; Z83.3 Family history of diabetes mellitus; Z86.73 Personal history of transient ischemic attack (TIA), and cerebral infarction without residual deficits; Z95.5 Presence of coronary angioplasty implant and graft; Z99.81 Dependence on supplemental oxygen; F40.240 Claustrophobia; Z90.49 Acquired absence of other specified parts of digestive tract; Z88.6 Allergy status to analgesic agent; Z88.5 Allergy status to narcotic agent; Z88.8 Allergy status to other drugs, medicaments and biological substances; R13.10 Dysphagia, unspecified; H35.30 Unspecified macular degeneration
CPT/HCPCS: 36415; 71045; 74220; 74230; 76830; 80048; 80053; 81001; 82272; 82550; 82553; 83036; 83880; 84484; 85025; 85027; 85610; 85730; 87324; 87502; 93005; 93306; 96361; 96374; 96375; 99285

== ENCOUNTER 2018-12-28 10:07 | Inpatient (IN) | payer MEDICARE, BC ==
[2018-12-28] MEDS ORDERED: ASPIRIN 81 MG PO STA (10:16)
--- NOTE | 2018-12-28 10:20 | ED ---
SOB HPI - General Stated Complaint: CONSTANZA Time Seen by Provider: 12/28/18 10:16 - History of Present Illness Initial Comments: Patient presents to the emergency department with shortness of breath. She has swelling in the legs. She is on CPAP by EMS on arrival to [facility]. She has no chest or belly pain or tightness in the chest. She has no back pain. She has no lightheadedness or dizziness. She has no nausea or vomiting. She has no focal weakness. She had blood in the stool recently, and was in the hospital for that. She is not currently complaining of that problem. She denies any other sick contacts or recent travel. - Related Data Home Medications Medication Instructions Recorded Confirmed Aspirin [Adult Low Dose Aspirin EC] 81 mg PO DAILY 11/21/17 12/28/18 Famotidine [Pepcid] 20 mg PO DAILY 11/21/17 12/28/18 Atorvastatin [Lipitor] 40 mg PO DAILY 01/02/18 12/28/18 Galantamine [Razadyne] 4 mg PO AC-BID 01/02/18 12/28/18 metFORMIN HCL [Glucophage] 500 mg PO BID 02/02/18 12/28/18 Ergocalciferol (Vitamin D2) 50,000 unit PO Q14D 12/20/18 12/28/18 [Vitamin D2] Escitalopram [Lexapro] 10 mg PO DAILY 12/20/18 12/28/18 Lisinopril [Zestril] 40 mg PO DAILY 12/28/18 12/28/18 Previous Rx's Medication Instructions Recorded Ranolazine [Ranexa] 1,000 mg PO Q12HR #60 tab.er.12h 11/25/17 Furosemide [Lasix] 40 mg PO DAILY #30 tablet 12/25/18 Hydrochlorothiazide [Hydrodiuril] 25 mg PO DAILY #30 tab 12/25/18 Hydrocortisone Suppository 25 mg RECTAL HS supp 12/25/18 [Anusol-Hc] Metoprolol Tartrate [Lopressor] 50 mg PO TID #90 tab 12/25/18 Potassium Chloride ER [K-Dur 10] 10 meq PO BID #60 tab 12/25/18 amLODIPine [Norvasc] 10 mg PO DAILY #30 tab 12/25/18 hydrALAZINE HCL [Apresoline] 50 mg PO TID #90 tab 12/25/18 Allergies Allergy/AdvReac Type Severity Reaction Status Date / Time hydrocodone [From Decherd] Allergy Rash/Hives Verified 12/28/18 10:41 naproxen sodium [From Aleve] Allergy Itching,bessie Verified 12/28/18 10:41 h glimepiride [From Amaryl] AdvReac Nausea & Verified 12/28/18 10:41 Vomiting Review of Systems ROS Statement: Those systems with pertinent positive or pertinent negative responses have been documented in the HPI. ROS Other: All systems not noted in ROS Statement are negative. Past Medical History Past Medical History: Coronary Artery Disease (CAD), CVA/TIA, Diabetes Mellitus , Hyperlipidemia, Hypertension, Myocardial Infarction (ME), Renal Disease Additional Past Medical History / Comment(s): Pt reports that in May of 2017 she was diagnosed with renal failure Last Myocardial Infarction Date:: 11/18/17 History of Any Multi-Drug Resistant Organisms: None Reported Past Surgical History: Appendectomy, Back Surgery, Cholecystectomy, Heart Catheterization With Stent Additional Past Surgical History / Comment(s): neck surgery. wrist surgery approx 2014. heart cath 11/18/16 stent to LAD Past Anesthesia/Blood Transfusion Reactions: No Reported Reaction Additional Past Anesthesia/Blood Transfusion Reaction / Comment(s): Pt has clausterphobia. Date of Last Stent Placement:: 11/18/17 Past Psychological History: Depression Smoking Status: Former smoker Past Alcohol Use History: None Reported Past Drug Use History: None Reported - Past Family History Father Additional Family Medical History / Comment(s): Father at age 91 from old age. Mother Additional Family Medical History / Comment(s): Mother at age 85 with history of lupus. Brother(s) Additional Family Medical History / Comment(s): Patient's siblings have history of coronary artery disease, diabetes, hypertension, macular degeneration. Daughter(s) Additional Family Medical History / Comment(s): Patient has 11 children; 6 daughters and 5 sons. 3 have and 2 from kidney failure and one was murdered. Sister(s) Additional Family Medical History / Comment(s): Pt had a sister live to be 102 yrs old. General Exam General appearance: alert, in distress Head exam: Present: atraumatic Eye exam: Present: normal appearance, PERRL ENT exam: Present: normal exam Neck exam: Present: normal inspection. Absent: meningismus Respiratory exam: Present: respiratory distress, wheezes, rales Cardiovascular Exam: Present: regular rate, normal rhythm GI/Abdominal exam: Present: soft. Absent: tenderness Extremities exam: Present: normal inspection, full ROM Back exam: Present: normal inspection Neurological exam: Present: alert, oriented X3 Psychiatric exam: Present: normal affect Skin exam: Present: warm, dry Course Vital Signs 12/28/18 12/28/18 10:10 11:05 Temperature 97.5 F L Pulse Rate 79 Respiratory 26 H 28 H Rate Blood Pressure 173/70 O2 Sat by Pulse 94 L Oximetry Medical Decision Making - Medical Decision Making Patient presented with shortness of breath. Her troponin is a little elevated, and her chest x-ray shows pulmonary vascular congestion. She is doing much better on the BiPAP. She definitely requires admission, but there is no indication for intubation at this time. I spoke with Dr. Sales who accepted the patient for admission. - Lab Data Result diagrams: 12/28/18 10:21 12/28/18 10:21 Lab Results 12/28/18 12/28/18 12/28/18 Range/Units 10:21 10:21 10:21 WBC 8.5 (3.8-10.6) k/uL RBC 4.25 (3.80-5.40) m/uL Hgb 13.4 (11.4-16.0) gm/dL Hct 40.7 (34.0-46.0) % MCV 95.7 (80.0-100.0) fL MCH 31.5 (25.0-35.0) pg MCHC 32.9 (31.0-37.0) g/dL RDW 13.7 (11.5-15.5) % Plt Count 353 (150-450) k/uL Neutrophils % 70 % Lymphocytes % 22 % Monocytes % 4 % Eosinophils % 2 % Basophils % 0 % Neutrophils # 6.0 (1.3-7.7) k/uL Lymphocytes # 1.9 (1.0-4.8) k/uL Monocytes # 0.4 (0-1.0) k/uL Eosinophils # 0.1 (0-0.7) k/uL Basophils # 0.0 (0-0.2) k/uL PT (9.0-12.0) sec INR (<1.2) APTT (22.0-30.0) sec Sample Site ABG pH (7.35-7.45) ABG pCO2 (35-45) mmHg ABG pO2 (83-108) mmHg ABG HCO3 (21-25) mmol/L ABG Total CO2 (19-24) mmol/L ABG O2 Saturation (94-97) % ABG Base Excess mmol/L [place] Test FiO2 % Sodium 135 L (137-145) mmol/L Potassium 4.1 (3.5-5.1) mmol/L Chloride 96 L (98-107) mmol/L Carbon Dioxide 25 (22-30) mmol/L Anion Gap 14 mmol/L BUN 32 H (7-17) mg/dL Creatinine 1.21 H (0.52-1.04) mg/dL Est GFR (CKD-EPI)AfAm 47 (>60 ml/min/1.73 sqM) Est GFR (CKD-EPI)NonAf 41 (>60 ml/min/1.73 sqM) Glucose 248 H (74-99) mg/dL Plasma Lactic Acid Maximus (0.7-2.0) mmol/L Calcium 9.0 (8.4-10.2) mg/dL Magnesium 1.2 L (1.6-2.3) mg/dL Total Bilirubin 2.3 H (0.2-1.3) mg/dL AST 26 (14-36) U/L ALT 26 (9-52) U/L Alkaline Phosphatase 88 (38-126) U/L Troponin I (0.000-0.034) ng/mL NT-Pro-B Natriuret Pep 70959 pg/mL Total Protein 6.3 (6.3-8.2) g/dL Albumin 3.8 (3.5-5.0) g/dL 12/28/18 12/28/18 12/28/18 Range/Units 10:21 10:21 10:21 WBC (3.8-10.6) k/uL RBC (3.80-5.40) m/uL Hgb (11.4-16.0) gm/dL Hct (34.0-46.0) % MCV (80.0-100.0) fL MCH (25.0-35.0) pg MCHC (31.0-37.0) g/dL RDW (11.5-15.5) % Plt Count (150-450) k/uL Neutrophils % % Lymphocytes % % Monocytes % % Eosinophils % % Basophils % % Neutrophils # (1.3-7.7) k/uL Lymphocytes # (1.0-4.8) k/uL Monocytes # (0-1.0) k/uL Eosinophils # (0-0.7) k/uL Basophils # (0-0.2) k/uL PT 12.4 H (9.0-12.0) sec INR 1.2 H (<1.2) APTT 24.7 (22.0-30.0) sec Sample Site ABG pH (7.35-7.45) ABG pCO2 (35-45) mmHg ABG pO2 (83-108) mmHg ABG HCO3 (21-25) mmol/L ABG Total CO2 (19-24) mmol/L ABG O2 Saturation (94-97) % ABG Base Excess mmol/L [place] Test FiO2 % Sodium (137-145) mmol/L Potassium (3.5-5.1) mmol/L Chloride (98-107) mmol/L Carbon Dioxide (22-30) mmol/L Anion Gap mmol/L BUN (7-17) mg/dL Creatinine (0.52-1.04) mg/dL Est GFR (CKD-EPI)AfAm (>60 ml/min/1.73 sqM) Est GFR (CKD-EPI)NonAf (>60 ml/min/1.73 sqM) Glucose (74-99) mg/dL Plasma Lactic Acid Maximus 3.1 H* (0.7-2.0) mmol/L Calcium (8.4-10.2) mg/dL Magnesium (1.6-2.3) mg/dL Total Bilirubin (0.2-1.3) mg/dL AST (14-36) U/L ALT (9-52) U/L Alkaline Phosphatase (38-126) U/L Troponin I 0.494 H* (0.000-0.034) ng/mL NT-Pro-B Natriuret Pep pg/mL Total Protein (6.3-8.2) g/dL Albumin (3.5-5.0) g/dL 12/28/18 Range/Units 11:00 WBC (3.8-10.6) k/uL RBC (3.80-5.40) m/uL Hgb (11.4-16.0) gm/dL Hct (34.0-46.0) % MCV (80.0-100.0) fL MCH (25.0-35.0) pg MCHC (31.0-37.0) g/dL RDW (11.5-15.5) % Plt Count (150-450) k/uL Neutrophils % % Lymphocytes % % Monocytes % % Eosinophils % % Basophils % % Neutrophils # (1.3-7.7) k/uL Lymphocytes # (1.0-4.8) k/uL Monocytes # (0-1.0) k/uL Eosinophils # (0-0.7) k/uL Basophils # (0-0.2) k/uL PT (9.0-12.0) sec INR (<1.2) APTT (22.0-30.0) sec Sample Site rrad ABG pH 7.29 L (7.35-7.45) ABG pCO2 56 H (35-45) mmHg ABG pO2 87 (83-108) mmHg ABG HCO3 27 H (21-25) mmol/L ABG Total CO2 28 H (19-24) mmol/L ABG O2 Saturation 94.8 (94-97) % ABG Base Excess -0.2 mmol/L [place] Test Yes FiO2 100 % Sodium (137-145) mmol/L Potassium (3.5-5.1) mmol/L Chloride (98-107) mmol/L Carbon Dioxide (22-30) mmol/L Anion Gap mmol/L BUN (7-17) mg/dL Creatinine (0.52-1.04) mg/dL Est GFR (CKD-EPI)AfAm (>60 ml/min/1.73 sqM) Est GFR (CKD-EPI)NonAf (>60 ml/min/1.73 sqM) Glucose (74-99) mg/dL Plasma Lactic Acid Maximus (0.7-2.0) mmol/L Calcium (8.4-10.2) mg/dL Magnesium (1.6-2.3) mg/dL Total Bilirubin (0.2-1.3) mg/dL AST (14-36) U/L ALT (9-52) U/L Alkaline Phosphatase (38-126) U/L Troponin I (0.000-0.034) ng/mL NT-Pro-B Natriuret Pep pg/mL Total Protein (6.3-8.2) g/dL Albumin (3.5-5.0) g/dL Critical Care Time Critical Care Time: Yes (initiation of bipap) Total Critical Care Time: 35 Disposition Clinical Impression: Congestive heart failure Disposition: ADMITTED IP TO THIS HOSP Condition: Serious Is patient prescribed a controlled substance at d/c from ED?: No Referrals: Yee Sales MD [Primary Care Provider] - 1-2 days
[2018-12-28 10:39] LABS: Basophils % (A) 0 %; Eosinophils # (A) 0.1 k/uL (0-0.7); Eosinophils % (A) 2 %; HCT 40.7 % (34.0-46.0); HGB 13.4 gm/dL (11.4-16.0); Lymphocytes # (A) 1.9 k/uL (1.0-4.8); Lymphocytes % (A) 22 %; MCH 31.5 pg (25.0-35.0); MCHC 32.9 g/dL (31.0-37.0); MCV 95.7 fL (80.0-100.0); Mean Platelet Volume 6.4; Monocytes # (A) 0.4 k/uL (0-1.0); Monocytes % (A) 4 %; Neutrophils % (A) 70 %; Platelet Count 353 k/uL (150-450); RBC 4.25 m/uL (3.80-5.40); RDW 13.7 % (11.5-15.5); WBC 8.5 k/uL (3.8-10.6)
[2018-12-28 10:48] LABS: Albumin 3.8 g/dL (3.5-5.0); Magnesium 1.2 mg/dL (1.6-2.3); Potassium 4.1 mmol/L (3.5-5.1); Total Bilirubin 2.3 mg/dL (0.2-1.3); Total Protein 6.3 g/dL (6.3-8.2)
[2018-12-28 10:50] LABS: INR 1.2 (<1.2); Partial Thromboplastin Time 24.7 sec (22.0-30.0); Prothrombin Time 12.4 sec (9.0-12.0)
[2018-12-28] MEDS ORDERED: LORazepam 2 MG/ML INJ IV STA (10:55)
--- NOTE | 2018-12-28 11:08 | XR ---
EXAMINATION TYPE: XR chest 1V portable DATE OF EXAM: 12/28/2018 COMPARISON: Prior chest 12/22/2018 HISTORY: Chest pain TECHNIQUE: Single frontal view of the chest is obtained. FINDINGS: Postop changes are again noted to the cervical spine. There is interval obscured appearanc e to the hemidiaphragms, bibasilar increased density. Heart is likely enlarged but obscured. No pneum othorax. Aorta is dense. Perihilar vascular indistinctness is noted. IMPRESSION: Suspect congestive heart failure with pleural effusions. Correlate to exclude pneumonia.
[2018-12-28 11:18] LABS: ABG Base Excess -0.2 mmol/L; ABG HCO3 27 mmol/L (21-25); ABG Oxygen Saturation 94.8 % (94-97); ABG PCO2 56 mmHg (35-45); ABG PH 7.29 (7.35-7.45); ABG PO2 87 mmHg (83-108); ABG TCO2 28 mmol/L (19-24)
[2018-12-28] MEDS ORDERED: NALOXONE 0.4 MG/ML 1 ML VIAL IV PRN (11:37)
[2018-12-28] MEDS ORDERED: INFLUENZA VACCINE (6 MOS+) 60 MCG/0.5 ML SYRINGE IM ONE (13:49)
[2018-12-28] MEDS: FUROSEMIDE 10 MG/ML 4 ML VIAL IV SCH ×2 (14:18→21:35)
[2018-12-28] MEDS: amLODIPine 10 MG TAB PO SCH (15:24)
[2018-12-28] MEDS ORDERED: METOPROLOL TARTRATE 50 MG TAB PO SCH (16:00)
[2018-12-28 16:40] LABS: Glucose,Whole Blood 150 mg/dL (75-99)
[2018-12-28] MEDS: hydrALAZINE HCL 50 MG TAB PO SCH ×2 (17:47→21:30)
[2018-12-28] MEDS: metFORMIN 500 MG TAB PO SCH (17:47)
--- NOTE | 2018-12-28 19:49 | CONS ---
CONSULTATION Mrs. Mcclain is an 88-year-old female who was just discharged from the hospital after being admitted with GI bleeding. She has a known history of coronary artery disease and status post non STEMI in November 2017, had severe triple-vessel coronary artery disease and underwent stenting of her LAD after being discharged in the hospital. Recently, she presented with progressive dyspnea and peripheral edema. She had some chest discomfort, that she had discomfort while in the hospital and most of the discomfort was related to respirophasic pattern. She denies any dizziness or palpitation. She has some nausea. No syncope. During her last hospitalization, her echocardiogram revealed preserved ventricular size systolic function with mild mitral annular calcification and mild mitral regurgitation. Her coronary risk factors are remarkable for hypertension and hyperlipidemia. She is a nonsmoker. MEDICATIONS: At the time of presentation included: Metformin 5 mg twice a day, hydralazine 50 mg 3 times a day, amlodipine 10 mg daily, Ranexa and 1 gram twice a day, metoprolol tartrate 50 mg 3 times a day, lisinopril 40 mg daily, hydrochlorothiazide 25 mg daily, Lasix 40 mg daily, Lexapro, Lipitor 40 mg daily, aspirin once a day. REVIEW OF SYSTEMS: Respiratory system: She had dyspnea on exertion and cough worsening at this time. She is on BiPAP. GI system: She had a prior history of . She had a recent admission with GI bleeding that was thought to be related to hemorrhage. system: No dysuria, no hematuria. Nervous system: No seizure. PHYSICAL EXAMINATION: She is an 88-year-old female at awake, alert, on BiPAP. Blood pressure 137/50 with a heart rate in the 60s. HEAD: Normocephalic. Eyes sclerae anicteric. Neck: No bruit appreciated. Lungs with decreased air exchange at the bases with few crackles. HEART: Regular rate and rhythm, S1, S2. No S3 with systolic murmur at the base. No diastolic murmur. No rub. ABDOMEN: Soft, nontender. Positive bowel sounds. No megaly. Extremities: +2 edema bilaterally. LAB DATA: Lab data revealed a NT proBNP of 20,700. Troponin 0.494. Plasma lactic acid of 3.1, BUN and creatinine 32 and 1.21 which is worse than at time for discharge. Potassium 4.1. D-dimer of 1.36. Hemoglobin of 13.4. Her pH 7.29, pCO2 56, PO2 of 87. Chest x-ray is consistent with a finding of CHF and pleural effusion. The EKG revealed a sinus mechanism, rate of [address]-T wave changes. Compared with an EKG at the time of prior admission, there is no acute changes. IMPRESSION: 1. Acute shortness of breath with congestive heart failure with diastolic dysfunction. 2. History of coronary artery disease status post percutaneous revascularization. 3. Mild elevation of troponin, most likely related to the congestive heart failure. 4. Recent episode of gastrointestinal bleeding. 5. Hypertension. 6. Hyperlipidemia. 7. Diabetes mellitus. 8. Worsening renal function. RECOMMENDATION: From the cardiac standpoint, the patient will be started on IV Lasix. We will follow her renal function closely. We will follow the results of her subsequent troponin and depending on that, further recommendations will be made. In the meantime, I will hold the dose of her hydrochlorothiazide and decrease her metoprolol tartrate to twice a day in view of her sinus bradycardia. Depending on her progress, further recommendations will be made. The prognosis remains guarded. Thank you for this consult. We will follow with you. MMMADALYNL / IJN: [id number] /
[2018-12-28 21:05] LABS: Glucose,Whole Blood 133 mg/dL (75-99)
[2018-12-28] MEDS: RANOLAZINE 500 MG TAB.ER.12H PO SCH (21:29)
[2018-12-28] MEDS: HYDROCORTISONE SUPPOSITORY 25 MG SUPP RECTAL SCH (21:30)
[2018-12-28] MEDS: POTASSIUM CHLORIDE ER 10 MEQ TAB.ER.PRT PO SCH (21:30)
[2018-12-28] MEDS: METOPROLOL TARTRATE 50 MG TAB PO SCH (21:31)
--- NOTE | 2018-12-28 22:18 | P.HPIM ---
History of Present Illness H&P Date: 12/28/18 Chief Complaint: Shortness of breath This is a 88-year-old white female patient of my clinic patient, with past medical history of hypertension, hyperlipidemia, type 2 diabetes, previous episode of myocardial infarction with stenting of the LAD in November 2017. Patient is a former smoker. Patient is on a combination of aspirin and Plavix for antiplatelet therapy. Patient was brought in by her daughter to the hospital on December 20, 2018 for evaluation of bleeding either vaginal or GI source, during that last admission patient did not require any colonoscopy, however she does have endometrial thickening noted on transvaginal ultrasound 2.1 cm, patient also has episode of hypotension, required fluid boluses, and the titration of her IV diuretics. She also has intermittent dysphagic to solids for which pressed by esophagus was noted, with severe as original dysmotility and delayed esophageal emptying, soft diet was recommended with aspiration precautions, she also had hypoxemia for which home O2 was arranged prior to her discharge on 12/25/2018.. Patient has been discontinued on Plavix secondary to the GI bleed, aspirin has been resumed, hemoglobin on discharge was approximately 11.8, she also has orthostatic vital signs during the last admission Patient was discharged to home with home care and home O2, patient return back to the emergency room secondary to increasing dyspnea, dyspnea on exertion, d- dimer was elevated 1.6, also BNP is also elevated, patient shows some symptoms also off acute congestive heart failure exacerbation, she has slightly elevated troponins, for which cardiology has been consulted for this during this admission. We are going to obtain VQ scan in view off the elevated d-dimer, along with Dopplers of the lower extremity, RUBY Gonzalez provided Review of Systems Constitutional: Reports as per HPI, Denies anorexia, Denies chills, Denies chronic headaches, Denies chronic pain, Denies daytime sleepiness, Denies fatigue, Denies fever, Denies lethargy, Denies malaise, Denies night sweats, Denies poor appetite, Denies sweats, Denies weakness, Denies weight gain, Denies weight loss Ears, nose, mouth and throat: Reports as per HPI, Denies ant. neck pain, Denies bleeding gums, Denies dental pain, Denies dysphagia, Denies epistaxis, Denies headache, Denies hoarseness, Denies mouth pain, Denies nasal congestion, Denies nasal discharge, Denies neck fullness/pressure, Denies neck lump, Denies nose pain, Denies odynophagia, Denies post-nasal drip, Denies sinus pain, Denies sinus pressure, Denies swelling in mouth, Denies swelling in throat, Denies sore throat, Denies vertigo, Denies voice changes Cardiovascular: Reports as per HPI, Reports decreased exercise tolerance, Reports dyspnea on exertion, Reports orthopnea, Reports shortness of breath Respiratory: Reports as per HPI, Reports cough, Denies congestion, Denies cough with sputum, Denies dyspnea, Denies excessive sputum, Denies hemoptysis, Denies home oxygen, Denies pain, Denies pain on inspiration, Denies pleurisy, Denies respiratory infections, Denies sleep apnea, Denies snoring, Denies wheezing Gastrointestinal: Reports as per HPI, Denies abdominal pain, Denies belching, Denies bloating, Denies BRBPR, Denies change in bowel habits, Denies coffee ground emesis, Denies constipation, Denies diarrhea, Denies dyspepsia, Denies early satiety, Denies excessive gas, Denies heartburn, Denies hematemesis, Denies hematochezia, Denies indigestion, Denies jaundice, Denies lactose intolerance, Denies loss of appetite, Denies melena, Denies nausea, Denies vomiting Genitourinary: Reports as per HPI, Denies abnormal vaginal bleeding, Denies decreased libido, Denies difficulty conceiving, Denies difficulty voiding, Denies dysmenorrhea, Denies dyspareunia, Denies dysuria, Denies flank pain, Denies genital sores, Denies hematuria, Denies hot flashes, Denies incomplete emptying, Denies kidney stones, Denies menorrhagia, Denies mixed incontinence, Denies nocturia, Denies pelvic pain, Denies post void dribbling, Denies , Denies prolapse symptoms, Denies stress incontinence, Denies urge incontinence , Denies urgency, Denies urinary frequency, Denies vaginal discharge, Denies vaginal dryness, Denies vaginal itching, Denies vaginal odor Menstruation: Reports as per HPI, Denies amenorrhea, Denies amenorrhea on BC, Denies currently menstrual, Denies cycle < 21 days, Denies cycle > 35 days, Denies cycle variable, Denies menses 1-7 days, Denies menses 8 or > days, Denies menses variable, Denies period heavy, Denies period light, Denies period normal, Denies period spotting, Denies post hysterectomy, Denies postmenopausal , Denies premenarcheal Musculoskeletal: Reports as per HPI, Denies arm numbness/tingling, Denies atrophy, Denies fractures, Denies frequent falls, Denies gait dysfunction, Denies hot joints, Denies leg numbness/tingling, Denies limitation of motion, Denies loss of height, Denies low back pain, Denies morning stiffness, Denies muscle cramps, Denies muscle weakness, Denies myalgias, Denies neck pain, Denies neck stiffness, Denies prior amputations, Denies redness of joints, Denies shooting arm pain, Denies shooting leg pain Integumentary: Reports as per HPI, Denies acne, Denies boils, Denies brittle nails, Denies change in hair/nails, Denies color changes, Denies darkening of skin, Denies depigmentation, Denies dryness, Denies foot/leg ulcers, Denies growths, Denies hirsutism, Denies lesions, Denies onychomycosis, Denies pruritus , Denies rash, Denies sores, Denies striae, Denies unusual bruising, Denies wounds Neurological: Reports as per HPI, Denies aphasia, Denies ataxia, Denies balance difficulties, Denies burning pain, Denies change in mentation, Denies change in smell/taste, Denies change in speech, Denies confusion, Denies convulsions, Denies double vision, Denies gait dysfunction, Denies head injury, Denies headaches, Denies hearing difficulties, Denies lack of coordination, Denies loss of vision, Denies memory loss, Denies migraines, Denies motor disturbance, Denies numbness, Denies paralysis, Denies paresthesias, Denies seizures, Denies sensory deficit, Denies spasticity, Denies syncope, Denies tic, Denies tingling , Denies transient paralysis, Denies tremors, Denies vertigo, Denies weakness, Denies visual changes Psychiatric: Reports as per HPI, Denies anhedonia, Denies anxiety, Denies anxiety attacks, Denies change in appetite, Denies change in libido, Denies change in sleep habits, Denies confusion, Denies depression, Denies difficulty concentrating, Denies disorientation, Denies hallucinations, Denies hopelessness , Denies hypersomnia, Denies insomnia, Denies irritability, Denies memory loss, Denies mood swings, Denies paranoia, Denies sadness/tearfulness, Denies sleep disturbances, Denies suicidal ideation Endocrine: Reports as per HPI, Denies cold intolerance, Denies deepening of the voice, Denies excessive sweating, Denies excessive thirst, Denies fatigue, Denies flushing, Denies heat intolerance, Denies high blood sugars, Denies increase in ring/shoe/hat size, Denies low blood sugars, Denies nocturia, Denies palpitations, Denies polydipsia, Denies polyphagia, Denies polyuria, Denies proptosis, Denies recent glucocorticoid use, Denies thyroid mass, Denies weight change Hematologic/Lymphatic: Reports as per HPI, Denies easy bleeding, Denies easy bruising, Denies lymphadenopathy, Denies lymphedema, Denies thrombophilia Past Medical History Past Medical History: Coronary Artery Disease (CAD), CVA/TIA, Diabetes Mellitus , GI Bleed, Hyperlipidemia, Hypertension, Myocardial Infarction (OR), Renal Disease Additional Past Medical History / Comment(s): Pt recently admitted to [facility] on with lower GI bleed thought likely d/t diverticular disease/orthostatic hypotension/CHF. 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 Last Myocardial Infarction Date:: 11/18/17 History of Any Multi-Drug Resistant Organisms: None Reported Past Surgical History: Appendectomy, Back Surgery, Cholecystectomy, Heart Catheterization With Stent Additional Past Surgical History / Comment(s): Low back surgery, cervical surgery, R wrist carpal tunnel release, colonoscopy (not completed d/t poor prep ) about 10 yrs ago, EGD 01/2018 d/t abdominal pain. Past Anesthesia/Blood Transfusion Reactions: No Reported Reaction Additional Past Anesthesia/Blood Transfusion Reaction / Comment(s): Pt has clausterphobia. Date of Last Stent Placement:: 11/18/17 Past Psychological History: Depression Additional Psychological History / Comment(s): Pt resides with her daughter, Julia, who is her legal gaurdian and caregiver. She uses a walker at times but is mostly in a wheelchair. She has had increased depression the past few months over her son's on 04/17/18. She has a shower chair, walker and wheelchair. Smoking Status: Former smoker Past Alcohol Use History: None Reported Additional Past Alcohol Use History / Comment(s): Pt started smoking in 1961 and quit in 1982. No illicit drug use. No alcohol use. Past Drug Use History: None Reported - Past Family History Father Additional Family Medical History / Comment(s): Father at age 91 from old age. Mother Additional Family Medical History / Comment(s): Mother at age 85 with history of lupus. Brother(s) Additional Family Medical History / Comment(s): Patient's siblings have history of coronary artery disease, diabetes, hypertension, macular degeneration. Daughter(s) Additional Family Medical History / Comment(s): Patient has 11 children; 6 daughters and 5 sons. 3 have and 2 from kidney failure and one was murdered. Sister(s) Additional Family Medical History / Comment(s): Pt had a sister live to be 102 yrs old. Medications and Allergies Home Medications Medication Instructions Recorded Confirmed Type Aspirin [Adult Low Dose Aspirin EC] 81 mg PO DAILY 11/21/17 12/28/18 History Famotidine [Pepcid] 20 mg PO DAILY 11/21/17 12/28/18 History Ranolazine [Ranexa] 1,000 mg PO Q12HR #60 tab.er.12h 11/25/17 12/28/18 Rx Atorvastatin [Lipitor] 40 mg PO DAILY 01/02/18 12/28/18 History Galantamine [Razadyne] 4 mg PO AC-BID 01/02/18 12/28/18 History metFORMIN HCL [Glucophage] 500 mg PO BID 02/02/18 12/28/18 History Ergocalciferol (Vitamin D2) 50,000 unit PO Q14D 12/20/18 12/28/18 History [Vitamin D2] Escitalopram [Lexapro] 10 mg PO DAILY 12/20/18 12/28/18 History Furosemide [Lasix] 40 mg PO DAILY #30 tablet 12/25/18 12/28/18 Rx Hydrochlorothiazide [Hydrodiuril] 25 mg PO DAILY #30 tab 12/25/18 12/28/18 Rx Hydrocortisone Suppository 25 mg RECTAL HS supp 12/25/18 12/28/18 Rx [Anusol-Hc] Metoprolol Tartrate [Lopressor] 50 mg PO TID #90 tab 12/25/18 12/28/18 Rx Potassium Chloride ER [K-Dur 10] 10 meq PO BID #60 tab 12/25/18 12/28/18 Rx amLODIPine [Norvasc] 10 mg PO DAILY #30 tab 12/25/18 12/28/18 Rx hydrALAZINE HCL [Apresoline] 50 mg PO TID #90 tab 12/25/18 12/28/18 Rx Lisinopril [Zestril] 40 mg PO DAILY 12/28/18 12/28/18 History Allergies Allergy/AdvReac Type Severity Reaction Status Date / Time hydrocodone [From [place]] Allergy Rash/Hives Verified 12/28/18 10:41 naproxen sodium [From Aleve] Allergy Itching,bessie Verified 12/28/18 10:41 h glimepiride [From Amaryl] AdvReac Nausea & Verified 12/28/18 10:41 Vomiting Physical Exam Vitals: Vital Signs Temp Pulse Pulse Resp BP BP Pulse Ox 12/28/18 20:49 97.9 F 60 18 154/66 96 12/28/18 15:20 61 18 137/58 93 L 12/28/18 15:16 97.5 F L 58 L 22 140/55 94 L 12/28/18 14:20 58 L 22 140/55 94 L 12/28/18 14:00 55 L 19 97/52 92 L 12/28/18 13:30 52 L 16 144/61 92 L 12/28/18 13:00 54 L 22 139/63 96 12/28/18 12:30 54 L 17 128/58 94 L 12/28/18 12:00 51 L 20 132/99 98 12/28/18 11:30 55 L 23 126/104 96 12/28/18 11:05 28 H 12/28/18 11:00 69 10 L 148/105 94 L 12/28/18 10:30 70 25 H 173/70 96 12/28/18 10:10 97.5 F L 79 23 173/70 93 L Intake and Output 12/28/18 12/28/18 12/28/18 06:59 14:59 22:59 Intake Total 240 Output Total 425 Balance -185 Intake: Oral 240 Output: Urine 425 Other: Voiding Method Indwelling Catheter # Bowel Movements 2 Weight 90.5 kg - Constitutional General appearance: cooperative, no acute distress, severe distress - EENT Eyes: anicteric sclerae, EOMI, PERRLA, poor dentition, normal appearance ENT: NA/AT, normal oropharynx - Neck Neck: normal ROM - Respiratory Respiratory: bilateral: CTA, diminished, negative: dullness, rales, rhonchi - Cardiovascular Rhythm: regular Heart sounds: normal: S1, S2 Abnormal Heart Sounds: no systolic murmur, no diastolic murmur, no rub, no S3 Gallop, no S4 Gallop, no click, no other - Gastrointestinal General gastrointestinal: normal bowel sounds, soft - Integumentary Integumentary: normal, normal turgor - Neurologic Neurologic: CNII-XII intact - Musculoskeletal Musculoskeletal: gait normal, strength equal bilaterally - Psychiatric Psychiatric: A&O x's 3, appropriate affect, intact judgment & insight Results CBC & Chem 7: 12/28/18 10:21 12/28/18 10:21 Labs: Abnormal Lab Results - Last 24 Hours (Table) 12/28/18 12/28/18 12/28/18 Range/Units 10:21 10:21 10:21 PT 12.4 H (9.0-12.0) sec INR 1.2 H (<1.2) D-Dimer (<0.60) mg/L FEU ABG pH (7.35-7.45) ABG pCO2 (35-45) mmHg ABG HCO3 (21-25) mmol/L ABG Total CO2 (19-24) mmol/L Sodium 135 L (137-145) mmol/L Chloride 96 L (98-107) mmol/L BUN 32 H (7-17) mg/dL Creatinine 1.21 H (0.52-1.04) mg/dL Glucose 248 H (74-99) mg/dL POC Glucose (mg/dL) (75-99) mg/dL Plasma Lactic Acid Maximus (0.7-2.0) mmol/L Magnesium 1.2 L (1.6-2.3) mg/dL Total Bilirubin 2.3 H (0.2-1.3) mg/dL Troponin I 0.494 H* (0.000-0.034) ng/mL 12/28/18 12/28/18 12/28/18 Range/Units 10:21 10:21 11:00 PT (9.0-12.0) sec INR (<1.2) D-Dimer 1.36 H (<0.60) mg/L FEU ABG pH 7.29 L (7.35-7.45) ABG pCO2 56 H (35-45) mmHg ABG HCO3 27 H (21-25) mmol/L ABG Total CO2 28 H (19-24) mmol/L Sodium (137-145) mmol/L Chloride (98-107) mmol/L BUN (7-17) mg/dL Creatinine (0.52-1.04) mg/dL Glucose (74-99) mg/dL POC Glucose (mg/dL) (75-99) mg/dL Plasma Lactic Acid Maximus 3.1 H* (0.7-2.0) mmol/L Magnesium (1.6-2.3) mg/dL Total Bilirubin (0.2-1.3) mg/dL Troponin I (0.000-0.034) ng/mL 12/28/18 12/28/18 12/28/18 Range/Units 15:13 16:34 16:48 PT (9.0-12.0) sec INR (<1.2) D-Dimer (<0.60) mg/L FEU ABG pH (7.35-7.45) ABG pCO2 (35-45) mmHg ABG HCO3 (21-25) mmol/L ABG Total CO2 (19-24) mmol/L Sodium (137-145) mmol/L Chloride (98-107) mmol/L BUN (7-17) mg/dL Creatinine (0.52-1.04) mg/dL Glucose (74-99) mg/dL POC Glucose (mg/dL) 150 H (75-99) mg/dL Plasma Lactic Acid Maximus 2.5 H* (0.7-2.0) mmol/L Magnesium (1.6-2.3) mg/dL Total Bilirubin (0.2-1.3) mg/dL Troponin I 1.250 H* (0.000-0.034) ng/mL 12/28/18 Range/Units 20:44 PT (9.0-12.0) sec INR (<1.2) D-Dimer (<0.60) mg/L FEU ABG pH (7.35-7.45) ABG pCO2 (35-45) mmHg ABG HCO3 (21-25) mmol/L ABG Total CO2 (19-24) mmol/L Sodium (137-145) mmol/L Chloride (98-107) mmol/L BUN (7-17) mg/dL Creatinine (0.52-1.04) mg/dL Glucose (74-99) mg/dL POC Glucose (mg/dL) 133 H (75-99) mg/dL Plasma Lactic Acid Maximus (0.7-2.0) mmol/L Magnesium (1.6-2.3) mg/dL Total Bilirubin (0.2-1.3) mg/dL Troponin I (0.000-0.034) ng/mL Thrombosis Risk Factor Assmnt - Choose All That Apply Any of the Below Risk Factors Present?: Yes Each Factor Represents 1 point: Heart failure (<1month), Obesity (BMI >25) Other Risk Factors: Yes Each Risk Factor Represents 3 Points: Age 75 years or older Other congenital or acquired thrombophilia - If yes, enter type in comment: No Thrombosis Risk Factor Assessment Total Risk Factor Score: 5 Thrombosis Risk Factor Assessment Level: High Risk Assessment and Plan Plan: 1. Acute on chronic diastolic CHF, multifactorial, along with elevated d-dimer , need to evaluate chronic venous thromboembolism embolism, VQ scan to be done based on creatinine, Dopplers on the lower extremity to be done IV Lasix 40 mg every 8 hours, monitor creatinine cautiously, history of orthostatic positive in the past, as well as hypertension, cardiology has been following the patient in the past, cardiology recommended decrease dose of beta giselle secondary to bradycardia 2. Recent Lower GI bleed likely diverticular bleed however diverticulitis or neoplasm cannot be entirely ruled out. last colonoscopy was about 10 years ago, last EGD was done in 2018 and that showed mild gastritis with small hiatal hernia, continue patient on Protonix 40 mg IV push every 12 hours. Plavix has been formally discontinued by cardiology and patient is been resumed on baby aspirin. No intervention during the last admission December 20, 2018 2. CAD post-PCI of the LAD. Continue aspirin and discontinue Plavix, continue patient on metoprolol 50 mg orally twice every day Lipitor 40 mg orally once every day, Imdur 60 mg orally once every day, Ranexa 1000 g orally twice every day. 3. 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 Continue lisinopril increased to 40 mg orally once every day, continue metoprolol 50 mg orally twice every day. Continue hydrochlorothiazide 25 mg orally once every day. 4. Hyperlipidemia. Continue Lipitor 40 mg orally once every day. 5. Vascular dementia. Continue Aricept 5 mg orally once every day. 6. Osteoarthritis. Stable. 7. Generalized anxiety disorder and recurrent depression. Continue Lexapro 10 mg orally once every day. 8. Diabetes mellitus type 2. metformin, continue patient on sliding scale insulin. 9. DVT prophylaxis. Bilateral knee-high OLE hose. 10. GI prophylaxis. Continue Protonix 40 mg IV push every 12 hours. 11. Endometrial thickening, also with her at elderly age to be investigated as an outpatient, to include endometrial biopsy, endometrial stripe 2.1 cm past [employer] appointment 12. Showing presbyesophagus speech evaluation, performed during the last admission, mechanical soft diet CODE STATUS: Full code.
[2018-12-29] MEDS: FUROSEMIDE 10 MG/ML 4 ML VIAL IV SCH ×2 (03:53→22:04)
[2018-12-29 05:39] LABS: Glucose,Whole Blood 137 mg/dL (75-99)
[2018-12-29 06:45] LABS: Calcium 8.8 mg/dL (8.4-10.2)
[2018-12-29] MEDS ORDERED: HYDROCHLOROTHIAZIDE 25 MG TAB PO SCH (09:00)
--- NOTE | 2018-12-29 09:06 | US ---
EXAMINATION TYPE: US venous doppler duplex LE DATE OF EXAM: 12/29/2018 8:26 AM COMPARISON: NONE CLINICAL HISTORY: edema shortness of breath elev. D-dimer. Limited historian due to oxygen mask. No leg pain or redness. Possible left leg vein stripping. SIDE PERFORMED: Bilateral TECHNIQUE: The lower extremity deep venous system is examined utilizing real time linear array sonog ruth with graded compression, doppler sonography and color-flow sonography. VESSELS IMAGED: External Iliac Vein (EIV) Common Femoral Vein Deep Femoral Vein Greater Saphenous Vein *- not visualized in left leg Femoral Vein Popliteal Vein Small Saphenous Vein * Proximal Calf Veins (* superficial vessels) Limited visualization due to arterial shadowing Right Leg: Negative for DVT Left Leg: Negative for DVT There is normal flow, compressibility, vascular waveforms. IMPRESSION: No evident deep venous arthrosis at or above the knees, follow-up as indicated. There are some limitations the exam due to peripheral vascular calcification.
[2018-12-29] MEDS: RANOLAZINE 500 MG TAB.ER.12H PO SCH ×2 (09:57→22:03)
[2018-12-29] MEDS: hydrALAZINE HCL 50 MG TAB PO SCH ×3 (09:58→22:04)
[2018-12-29] MEDS: ATORVASTATIN 40 MG TAB PO SCH (09:58)
[2018-12-29] MEDS: FAMOTIDINE 20 MG TAB PO SCH (09:58)
[2018-12-29] MEDS: METOPROLOL TARTRATE 50 MG TAB PO SCH ×2 (09:58→22:03)
[2018-12-29] MEDS: ESCITALOPRAM 10 MG TAB PO SCH (09:59)
[2018-12-29] MEDS: amLODIPine 10 MG TAB PO SCH (09:59)
[2018-12-29] MEDS: POTASSIUM CHLORIDE ER 10 MEQ TAB.ER.PRT PO SCH ×2 (09:59→22:04)
[2018-12-29] MEDS: LISINOPRIL 20 MG TAB PO SCH (09:59)
--- NOTE | 2018-12-29 10:41 | PN ---
PROGRESS NOTE Mrs. Mcclain is an 88-year-old female who presented with symptoms of acute exacerbation of shortness of breath. She has a known history of coronary artery disease and prior stenting, history of recent GI bleeding. She is feeling better this morning. She is on nasal cannula. She denies any dizziness or palpitation. She denies any nausea. She continues to be on aspirin 81 mg daily, Lipitor 40 mg daily, Lexapro, furosemide 40 mg IV q.8 hours, hydralazine 50 mg 3 times a day, lisinopril 40 mg daily, metoprolol tartrate 50 mg twice a day, metformin, and Ranexa 1 gram twice a day. PHYSICAL EXAMINATION: Blood pressure running in the 130s to 150s with the heart rate in the 60s. LUNGS: No wheezes with mild decrease in breath sounds. HEART: Regular rate and rhythm. S1, S2. No S3 with systolic murmur heard at the base ejection type 3/6. No diastolic murmur. ABDOMEN: Soft, nontender. EXTREMITIES: No edema. LAB DATA: Lab data revealed BUN and creatinine of 42 and 1.31. Potassium 4. Troponin peak of 1.5. Duplex scan of the lower extremities showed no evidence of deep venous thrombosis. IMPRESSION: 1. Acute dyspnea with pulmonary edema, resolved. 2. History of coronary artery disease. 3. Mild troponin elevation related to a type 2 myocardial infarction. 4. Renal failure. 5. Recent episode of gastrointestinal bleeding. RECOMMENDATION: I will cut down the dose of her diuretics. Follow her renal function. Continue the present therapy. Increase her level activity and depending on her progress, further recommendation will be made. MMODL / IJN: [id number] /
[2018-12-29] MEDS ORDERED: HEPARIN SODIUM,PORCINE 5,000 UNIT/ML 1 ML VIAL IV ONE (10:48)
[2018-12-29] MEDS ORDERED: HEPARIN SODIUM,PORCINE 5,000 UNIT/ML 1 ML VIAL IV PRN (10:48)
[2018-12-29] MEDS ORDERED: HEPARIN SOD,PORK IN 0.45% NACL 25,000 UNIT in 0.45% NACL 1 250ML.BAG IV SCH (11:00)
[2018-12-29] MEDS ORDERED: ENOXAPARIN 80 MG/0.8 ML SYRINGE SQ SCH (11:00)
[2018-12-29 11:28] LABS: Glucose,Whole Blood 171 mg/dL (75-99)
[2018-12-29] MEDS: metFORMIN 500 MG TAB PO SCH ×2 (14:44→17:50)
[2018-12-29] MEDS: ASPIRIN 81 MG PO SCH (14:45)
[2018-12-29] MEDS: ISOSORBIDE MONONITRATE ER 30 MG TAB.ER.24H PO SCH (14:49)
--- NOTE | 2018-12-29 15:25 | P.PN ---
Subjective Progress Note Date: 12/29/18 This is a 88-year-old white female patient of my clinic patient, with past medical history of hypertension, hyperlipidemia, type 2 diabetes, previous episode of myocardial infarction with stenting of the LAD in November 2017. Patient is a former smoker. Patient is on a combination of aspirin and Plavix for antiplatelet therapy. Patient was brought in by her daughter to the hospital on December 20, 2018 for evaluation of bleeding either vaginal or GI source, during that last admission patient did not require any colonoscopy, however she does have endometrial thickening noted on transvaginal ultrasound 2.1 cm, patient also has episode of hypotension, required fluid boluses, and the titration of her IV diuretics. She also has intermittent dysphagic to solids for which pressed by esophagus was noted, with severe as original dysmotility and delayed esophageal emptying, soft diet was recommended with aspiration precautions, she also had hypoxemia for which home O2 was arranged prior to her discharge on 12/25/2018.. Patient has been discontinued on Plavix secondary to the GI bleed, aspirin has been resumed, hemoglobin on discharge was approximately 11.8, she also has orthostatic vital signs during the last admission Patient was discharged to home with home care and home O2, patient return back to the emergency room secondary to increasing dyspnea, dyspnea on exertion, d- dimer was elevated 1.6, also BNP is also elevated, patient shows some symptoms also off acute congestive heart failure exacerbation, she has slightly elevated troponins, for which cardiology has been consulted for this during this admission. We are going to obtain VQ scan in view off the elevated d-dimer, along with Dopplers of the lower extremity, IV Lasix provided 12/29: Patient continues to have severe respiratory distress on BiPAP with FiO2 of 50%, she has been afebrile, heart rate running in the 60s, blood pressure 159 /70. Troponins have been elevated and cardiology has ruled out acute coronary syndrome. Bilateral lower extremity Dopplers negative for DVT. Patient is unable to undergo VQ scan due to positioning and oxygen need. Lovenox started. Consult with pulmonary medicine has been added. C. diff stool toxin came back negative. Review Of Systems: Constitutional: No fever, no chills, no night sweats. No weight change. Reports weakness, fatigue or lethargy. Reports daytime sleepiness. EENT: No headache. No blurred vision or double vision, no loss of vision. No loss of Hearing, no ringing in the ears, no dizziness. No nasal drainage or congestion. No epistaxis. No sore throat. Lungs: Reports shortness of breath, reports cough, no sputum production. Reports wheezing. Cardiovascular: No chest pain, no lower extremity edema. No palpitations. No paroxysmal nocturnal dyspnea. No orthopnea. No lightheadedness or dizziness. No syncopal episodes. Abdominal: No abdominal pain. No nausea, vomiting. No diarrhea. No constipation. No bloody or tarry stools.. No loss of appetite. Genitourinary: No dysuria, increased frequency, urgency. No urinary retention. Musculoskeletal: No myalgias. No muscle weakness, no gait dysfunction, no frequent falls. No back pain. No neck pain. Integumentary: No wounds, no lesions. No rash or pruritus. No unusual bruising. No change in hair or nails. Neurologic: No aphasia. No facial droop. No change in mentation. No head injury. No headache. No paralysis. No paresthesia. Psychiatric: No depression. No anxiety. No mood swings. Endocrine: No abnormal blood sugars. No weight change. No excessive sweating or thirst. No cold intolerance. No weight change. Objective - Vital Signs Vital signs: Vital Signs Temp 98.0 F 12/29/18 08:00 Pulse 61 12/29/18 08:00 Resp 20 12/29/18 08:00 BP 159/70 12/29/18 08:00 Pulse Ox 92 L 12/29/18 09:12 Intake & Output 12/28/18 12/29/18 12/29/18 18:59 06:59 18:59 Intake Total 240 Output Total 425 400 350 Balance -185 -400 -350 Weight 90.5 kg 78 kg Intake: Oral 240 Output: Urine 425 400 350 Other: Voiding Method Indwelling Catheter Indwelling Catheter Indwelling Catheter # Bowel Movements 2 - Exam General appearance: cooperative, moderate to severe distress - EENT Eyes: anicteric sclerae, EOMI, PERRLA, poor dentition, normal appearance ENT: NA/AT, normal oropharynx - Neck Neck: normal ROM - Respiratory Respiratory: bilateral: CTA, diminished, negative: dullness, rales, rhonchi - Cardiovascular Rhythm: regular Heart sounds: normal: S1, S2 Abnormal Heart Sounds: no systolic murmur, no diastolic murmur, no rub, no S3 Gallop, no S4 Gallop, no click, no other - Gastrointestinal General gastrointestinal: normal bowel sounds, soft - Integumentary Integumentary: normal, normal turgor - Neurologic Neurologic: CNII-XII intact - Musculoskeletal Musculoskeletal: gait normal, strength equal bilaterally - Psychiatric Psychiatric: A&O x's 3, appropriate affect, intact judgment & insight - Labs CBC & Chem 7: 12/28/18 10:21 12/29/18 06:02 Labs: Abnormal Lab Results - Last 24 Hours (Table) 12/28/18 12/28/18 12/28/18 Range/Units 10:21 10:21 10:21 D-Dimer 1.36 H (<0.60) mg/L FEU ABG pH (7.35-7.45) ABG pCO2 (35-45) mmHg ABG HCO3 (21-25) mmol/L ABG Total CO2 (19-24) mmol/L Sodium (137-145) mmol/L Chloride (98-107) mmol/L BUN (7-17) mg/dL Creatinine (0.52-1.04) mg/dL Glucose (74-99) mg/dL POC Glucose (mg/dL) (75-99) mg/dL Plasma Lactic Acid Maximus 3.1 H* (0.7-2.0) mmol/L Troponin I 0.494 H* (0.000-0.034) ng/mL 12/28/18 12/28/18 12/28/18 Range/Units 11:00 15:13 16:34 D-Dimer (<0.60) mg/L FEU ABG pH 7.29 L (7.35-7.45) ABG pCO2 56 H (35-45) mmHg ABG HCO3 27 H (21-25) mmol/L ABG Total CO2 28 H (19-24) mmol/L Sodium (137-145) mmol/L Chloride (98-107) mmol/L BUN (7-17) mg/dL Creatinine (0.52-1.04) mg/dL Glucose (74-99) mg/dL POC Glucose (mg/dL) 150 H (75-99) mg/dL Plasma Lactic Acid Maximus 2.5 H* (0.7-2.0) mmol/L Troponin I (0.000-0.034) ng/mL 12/28/18 12/28/18 12/28/18 Range/Units 16:48 20:44 22:29 D-Dimer (<0.60) mg/L FEU ABG pH (7.35-7.45) ABG pCO2 (35-45) mmHg ABG HCO3 (21-25) mmol/L ABG Total CO2 (19-24) mmol/L Sodium (137-145) mmol/L Chloride (98-107) mmol/L BUN (7-17) mg/dL Creatinine (0.52-1.04) mg/dL Glucose (74-99) mg/dL POC Glucose (mg/dL) 133 H (75-99) mg/dL Plasma Lactic Acid Maximus (0.7-2.0) mmol/L Troponin I 1.250 H* 1.530 H* (0.000-0.034) ng/mL 12/29/18 12/29/18 Range/Units 05:28 06:02 D-Dimer (<0.60) mg/L FEU ABG pH (7.35-7.45) ABG pCO2 (35-45) mmHg ABG HCO3 (21-25) mmol/L ABG Total CO2 (19-24) mmol/L Sodium 134 L (137-145) mmol/L Chloride 97 L (98-107) mmol/L BUN 42 H (7-17) mg/dL Creatinine 1.31 H (0.52-1.04) mg/dL Glucose 142 H (74-99) mg/dL POC Glucose (mg/dL) 137 H (75-99) mg/dL Plasma Lactic Acid Maximus (0.7-2.0) mmol/L Troponin I (0.000-0.034) ng/mL Assessment and Plan Plan: 1. Acute on chronic diastolic CHF, multifactorial, along with elevated d-dimer , need to evaluate chronic venous thromboembolism embolism, VQ scan to be done based on creatinine, Dopplers on the lower extremity to be done IV Lasix 40 mg every 8 hours, monitor creatinine cautiously, history of orthostatic positive in the past, as well as hypertension, cardiology has been following the patient in the past, cardiology recommended decrease dose of beta giselle secondary to bradycardia. Consult with pulmonary medicine added. Patient started on Lovenox. 2. Recent Lower GI bleed likely diverticular bleed however diverticulitis or neoplasm cannot be entirely ruled out. last colonoscopy was about 10 years ago, last EGD was done in 2018 and that showed mild gastritis with small hiatal hernia, continue patient on Protonix 40 mg IV push every 12 hours. Plavix has been formally discontinued by cardiology and patient is been resumed on baby aspirin. No intervention during the last admission December 20, 2018 2. CAD post-PCI of the LAD. Continue aspirin and discontinue Plavix, continue patient on metoprolol 50 mg orally twice every day Lipitor 40 mg orally once every day, Imdur 60 mg orally once every day, Ranexa 1000 g orally twice every day. 3. 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 Continue lisinopril increased to 40 mg orally once every day, continue metoprolol 50 mg orally twice every day. Continue hydrochlorothiazide 25 mg orally once every day. 4. Hyperlipidemia. Continue Lipitor 40 mg orally once every day. 5. Vascular dementia. Continue Aricept 5 mg orally once every day. 6. Osteoarthritis. Stable. 7. Generalized anxiety disorder and recurrent depression. Continue Lexapro 10 mg orally once every day. 8. Diabetes mellitus type 2. metformin, continue patient on sliding scale insulin. 9. DVT prophylaxis. Bilateral knee-high OLE hose. 10. GI prophylaxis. Continue Protonix 40 mg IV push every 12 hours. 11. Endometrial thickening, also with her at elderly age to be investigated as an outpatient, to include endometrial biopsy, endometrial stripe 2.1 cm past [employer] appointment 12. Showing presbyesophagus speech evaluation, performed during the last admission, mechanical soft diet CODE STATUS: Full code. Discharge plan: To be determined Impression and plan of care have been directed as dictated by the signing physician. Donita Padron nurse practitioner acting as scribe for signing physician.
--- NOTE | 2018-12-29 15:31 | US ---
EXAMINATION TYPE: US chest DATE OF EXAM: 12/29/2018 COMPARISON: Chest x-ray 12/28/2017 CLINICAL HISTORY: Markings for thoracentesis by pulmonary staff. Pleural effusions TECHNIQUE: Targeted ultrasound of the posterior lower bilateral hemithoraces EXAM MEASUREMENTS: Right Pleural Effusion pocket size: 10.2 cm Right skin surface to fluid distance: 2.8 cm Left Pleural Effusion pocket size: 9.3 cm Left skin surface to fluid distance: 3.2 cm Right side MARKED for possible thoracentesis outside the dept, lung noted mid/anteriorly within fluid pocket. Left side MARKED for possible thoracentesis outside the dept, lung noted mid/anteriorly within fluid pocket. Pulmonologists are able to review the images in the patient?s EMR. IMPRESSIONS: Bilateral moderate pleural effusions
--- NOTE | 2018-12-29 16:45 | P.CNPUL ---
History of Present Illness Consult date: 12/29/18 Requesting physician: Yee Sales Reason for consult: dyspnea, pleural effusion, abnormal CXR/CT Chief complaint: Shortness of breath, lower extremity swelling History of present illness: This 88-year-old white female patient of Dr. Sales with past medical history of hypertension, hyperlipidemia, type 2 diabetes, previous myocardial infarction with stenting of the LAD in November 2017, recent episode of GI bleeding. Patient is a former smoker. She was seen by GI service, with recommendation for conservative management, no plans for endoscopic studies. Patient was stabilized, discharged home in stable condition on 12/25/2018. She came back to the emergency department on 12/28/2018 with complaints of increasing shortness of breath, lower extremity edema. Chest x-ray showed pleural effusions, trace bibasilar density. She denied any fever or chills. Denied any chest pain. Blood work showed no leukocytosis, with white blood cell count of 8.5, hemoglobin 13.4, INR is 1.2, d-dimer of 1.36, serum sodium was 135, potassium is 4.1, chloride was 96, B1 is 32 creatinine is 1.2, plasma lactic acid was elevated to 2.5, troponin was elevated at 1.530, proBNP was 20, 700. Patient was in significant rest or distress on admission, blood gas showed pO2 of 87, pCO2 56, and pH of 7.29. EKG showed sinus bradycardia, with ST and T-wave depression in leads 2, V5 and V6. Patient was placed on BiPAP support, patient was started on IV diuretics. We were asked to see this patient in consultation for shortness of breath. Review of Systems All systems: negative Constitutional: Denies chills, Denies fever Eyes: denies blurred vision, denies pain Ears, nose, mouth and throat: Denies headache, Denies sore throat Cardiovascular: Denies chest pain, Denies shortness of breath Respiratory: Reports dyspnea, Denies cough Gastrointestinal: Denies abdominal pain, Denies diarrhea, Denies nausea, Denies vomiting Genitourinary: Denies dysuria, Denies hematuria Musculoskeletal: Denies myalgias Integumentary: Denies pruritus, Denies rash Neurological: Denies numbness, Denies weakness Psychiatric: Denies anxiety, Denies depression Endocrine: Denies fatigue, Denies weight change Past Medical History Past Medical History: Coronary Artery Disease (CAD), CVA/TIA, Diabetes Mellitus , GI Bleed, Hyperlipidemia, Hypertension, Myocardial Infarction ([place]), Renal Disease Additional Past Medical History / Comment(s): Pt recently admitted to [facility] on with lower GI bleed thought likely d/t diverticular disease/orthostatic hypotension/CHF. 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 Last Myocardial Infarction Date:: 11/18/17 History of Any Multi-Drug Resistant Organisms: None Reported Past Surgical History: Appendectomy, Back Surgery, Cholecystectomy, Heart Catheterization With Stent Additional Past Surgical History / Comment(s): Low back surgery, cervical surgery, R wrist carpal tunnel release, colonoscopy (not completed d/t poor prep ) about 10 yrs ago, EGD 01/2018 d/t abdominal pain. Past Anesthesia/Blood Transfusion Reactions: No Reported Reaction Additional Past Anesthesia/Blood Transfusion Reaction / Comment(s): Pt has clausterphobia. Date of Last Stent Placement:: 11/18/17 Past Psychological History: Depression Additional Psychological History / Comment(s): Pt resides with her daughter, Julia, who is her legal gaurdian and caregiver. She uses a walker at times but is mostly in a wheelchair. She has had increased depression the past few months over her son's on 04/17/18. She has a shower chair, walker and wheelchair. Smoking Status: Former smoker Past Alcohol Use History: None Reported Additional Past Alcohol Use History / Comment(s): Pt started smoking in 1961 and quit in 1982. No illicit drug use. No alcohol use. Past Drug Use History: None Reported - Past Family History Father Additional Family Medical History / Comment(s): Father at age 91 from old age. Mother Additional Family Medical History / Comment(s): Mother at age 85 with history of lupus. Brother(s) Additional Family Medical History / Comment(s): Patient's siblings have history of coronary artery disease, diabetes, hypertension, macular degeneration. Daughter(s) Additional Family Medical History / Comment(s): Patient has 11 children; 6 daughters and 5 sons. 3 have and 2 from kidney failure and one was murdered. Sister(s) Additional Family Medical History / Comment(s): Pt had a sister live to be 102 yrs old. Medications and Allergies Home Medications Medication Instructions Recorded Confirmed Type Aspirin [Adult Low Dose Aspirin EC] 81 mg PO DAILY 11/21/17 12/28/18 History Famotidine [Pepcid] 20 mg PO DAILY 11/21/17 12/28/18 History Ranolazine [Ranexa] 1,000 mg PO Q12HR #60 tab.er.12h 11/25/17 12/28/18 Rx Atorvastatin [Lipitor] 40 mg PO DAILY 01/02/18 12/28/18 History Galantamine [Razadyne] 4 mg PO AC-BID 01/02/18 12/28/18 History metFORMIN HCL [Glucophage] 500 mg PO BID 02/02/18 12/28/18 History Ergocalciferol (Vitamin D2) 50,000 unit PO Q14D 12/20/18 12/28/18 History [Vitamin D2] Escitalopram [Lexapro] 10 mg PO DAILY 12/20/18 12/28/18 History Furosemide [Lasix] 40 mg PO DAILY #30 tablet 12/25/18 12/28/18 Rx Hydrochlorothiazide [Hydrodiuril] 25 mg PO DAILY #30 tab 12/25/18 12/28/18 Rx Hydrocortisone Suppository 25 mg RECTAL HS supp 12/25/18 12/28/18 Rx [Anusol-Hc] Metoprolol Tartrate [Lopressor] 50 mg PO TID #90 tab 12/25/18 12/28/18 Rx Potassium Chloride ER [K-Dur 10] 10 meq PO BID #60 tab 12/25/18 12/28/18 Rx amLODIPine [Norvasc] 10 mg PO DAILY #30 tab 12/25/18 12/28/18 Rx hydrALAZINE HCL [Apresoline] 50 mg PO TID #90 tab 12/25/18 12/28/18 Rx Lisinopril [Zestril] 40 mg PO DAILY 12/28/18 12/28/18 History Allergies Allergy/AdvReac Type Severity Reaction Status Date / Time hydrocodone [From [place]] Allergy Rash/Hives Verified 12/28/18 10:41 naproxen sodium [From Aleve] Allergy Itching,bessie Verified 12/28/18 10:41 h glimepiride [From Amaryl] AdvReac Nausea & Verified 12/28/18 10:41 Vomiting Physical Exam Vitals: Vital Signs Temp Pulse Resp BP BP Pulse Ox 12/29/18 12:00 98.1 F 59 L 18 145/66 95 12/29/18 09:12 92 L 12/29/18 08:00 98.0 F 61 20 159/70 96 12/29/18 05:11 97.7 F 61 18 134/68 94 L 12/29/18 00:21 61 18 119/60 96 12/28/18 20:49 97.9 F 60 18 154/66 96 Intake and Output 12/29/18 12/29/18 12/29/18 06:59 14:59 22:59 Output Total 400 350 Balance -400 -350 Output: Urine 400 350 Other: Voiding Method Indwelling Catheter Indwelling Catheter Weight 78 kg 78 kg GENERAL EXAM: Alert, pleasant 88-year-old white female, on BiPAP support, currently on pressures 12 and 6, and 50% comfortable in no apparent distress. HEAD: Normocephalic/atraumatic. EYES: Normal reaction of pupils, equal size. Conjunctiva pink, sclera white. NOSE: Clear with pink turbinates. THROAT: No erythema or exudates. NECK: No masses, no JVD, no thyroid enlargement, no adenopathy. CHEST: No chest wall deformity. Symmetrical expansion. LUNGS: Equal air entry with diminished breath sounds at the bases, and scattered rales CVS: Regular rate and rhythm, normal S1 and S2, no gallops, no murmurs, no rubs ABDOMEN: Soft, nontender. No hepatosplenomegaly, normal bowel sounds, no guarding or rigidity. EXTREMITIES: No clubbing, mild pretibial edema, no cyanosis, 2+ pulses and upper and lower extremities. MUSCULOSKELETAL: Muscle strength and tone normal. SPINE: No scoliosis or deformity SKIN: No rashes CENTRAL NERVOUS SYSTEM: Alert and oriented -3. No focal deficits, tone is normal in all 4 extremities. PSYCHIATRIC: Alert and oriented -3. Appropriate affect. Intact judgment and insight. Results - Laboratory Findings CBC and BMP: 12/28/18 10:21 12/29/18 06:02 ABG ABG pH 7.29 (7.35-7.45) L 12/28/18 11:00 ABG pCO2 56 mmHg (35-45) H 12/28/18 11:00 ABG pO2 87 mmHg (83-108) 12/28/18 11:00 ABG O2 Saturation 94.8 % (94-97) 12/28/18 11:00 PT/INR, D-dimer PT 12.4 sec (9.0-12.0) H 12/28/18 10:21 INR 1.2 (<1.2) H 12/28/18 10:21 D-Dimer 1.36 mg/L FEU (<0.60) H 12/28/18 10:21 Abnormal lab findings: Abnormal Labs 12/28/18 12/28/18 12/28/18 10:21 10:21 10:21 PT 12.4 H INR 1.2 H D-Dimer ABG pH ABG pCO2 ABG HCO3 ABG Total CO2 Sodium 135 L Chloride 96 L BUN 32 H Creatinine 1.21 H Glucose 248 H POC Glucose (mg/dL) Plasma Lactic Acid Maximus Magnesium 1.2 L Total Bilirubin 2.3 H Troponin I 0.494 H* 12/28/18 12/28/18 12/28/18 10:21 10:21 11:00 PT INR D-Dimer 1.36 H ABG pH 7.29 L ABG pCO2 56 H ABG HCO3 27 H ABG Total CO2 28 H Sodium Chloride BUN Creatinine Glucose POC Glucose (mg/dL) Plasma Lactic Acid Maximus 3.1 H* Magnesium Total Bilirubin Troponin I 12/28/18 12/28/18 12/28/18 15:13 16:34 16:48 PT INR D-Dimer ABG pH ABG pCO2 ABG HCO3 ABG Total CO2 Sodium Chloride BUN Creatinine Glucose POC Glucose (mg/dL) 150 H Plasma Lactic Acid Maximus 2.5 H* Magnesium Total Bilirubin Troponin I 1.250 H* 12/28/18 12/28/18 12/29/18 20:44 22:29 05:28 PT INR D-Dimer ABG pH ABG pCO2 ABG HCO3 ABG Total CO2 Sodium Chloride BUN Creatinine Glucose POC Glucose (mg/dL) 133 H 137 H Plasma Lactic Acid Maximus Magnesium Total Bilirubin Troponin I 1.530 H* 12/29/18 12/29/18 06:02 11:26 PT INR D-Dimer ABG pH ABG pCO2 ABG HCO3 ABG Total CO2 Sodium 134 L Chloride 97 L BUN 42 H Creatinine 1.31 H Glucose 142 H POC Glucose (mg/dL) 171 H Plasma Lactic Acid Maximus Magnesium Total Bilirubin Troponin I - Diagnostic Findings Chest x-ray: report reviewed, image reviewed Additional studies: EKG, lower extremity Dopplers reviewed, negative for DVT Assessment and Plan Plan: Assessment: #1. Acute hypercapnic respiratory failure secondary to acute exacerbation of congestive heart failure with diastolic dysfunction #2. Acute dyspnea related to the above, chest x-ray showed bibasilar pleural effusions #3. Lactic acidosis likely related to cardiorenal syndrome #4. Elevated d-dimer, nonspecific #5. Acute kidney injury #6. Elevated troponin #7. Recent hospitalization for lower GI bleeding, patient presented with bright red per rectum, was managed conservatively per GI recommendations, did not require blood transfusions #8. History of coronary artery disease with recent stenting in November 2017, she underwent stenting of her LAD #9. ABGs mellitus type II #10. Hypertension, hyperlipidemia Plan: Continue the IV diuretics, will obtain ultrasound of the chest to evaluate for the size of the pleural effusions. Continue BiPAP support, may give patient a trial of nasal cannula. Continue GI and DVT prophylaxis, cardiology following. I performed a history & physical examination of the patient and discussed their management with my nurse practitioner, Earline Dumas. I reviewed the nurse practitioner's note and agree with the documented findings and plan of care. Lung sounds are positive for diminished breath sounds. The findings and the impression was discussed with the patient. I attest to the documentation by the nurse practitioner. Time with Patient: Greater than 30
[2018-12-29 17:04] LABS: Glucose,Whole Blood 155 mg/dL (75-99)
[2018-12-29 20:31] LABS: Glucose,Whole Blood 170 mg/dL (75-99)
[2018-12-29] MEDS: HYDROCORTISONE SUPPOSITORY 25 MG SUPP RECTAL SCH (22:09)
[2018-12-30 05:55] LABS: Glucose,Whole Blood 203 mg/dL (75-99)
[2018-12-30 07:06] LABS: Calcium 9.1 mg/dL (8.4-10.2); Potassium 4.3 mmol/L (3.5-5.1)
[2018-12-30] MEDS: FUROSEMIDE 10 MG/ML 4 ML VIAL IV SCH ×2 (09:17→20:08)
[2018-12-30] MEDS: ENOXAPARIN 80 MG/0.8 ML SYRINGE SQ SCH (09:20)
[2018-12-30] MEDS ORDERED: ALPRAZolam 0.25 MG TAB PO PRN (11:05)
[2018-12-30 11:13] LABS: Glucose,Whole Blood 202 mg/dL (75-99)
[2018-12-30] MEDS: INSULIN ASPART (NovoLOG) 100 UNIT/ML VIAL SQ SCH ×3 (11:28→20:09)
--- NOTE | 2018-12-30 11:28 | XR ---
EXAMINATION TYPE: XR chest 1V portable DATE OF EXAM: 12/30/2018 COMPARISON: Prior chest x-ray 12/28/2018 HISTORY: Shortness of breath TECHNIQUE: Single frontal view of the chest is obtained. FINDINGS: No evident pneumothorax. Bibasilar increased density may have improved slightly in the int erval. There is persistent obscured hemidiaphragms. Heart is enlarged. Aorta is dense. There are card iac leads. Postop change noted in the cervical spine. IMPRESSION: There may be some interval improvement in aeration, volume status. Additional follow-up recommended.
[2018-12-30] MEDS: LISINOPRIL 20 MG TAB PO SCH (11:49)
[2018-12-30] MEDS: METOPROLOL TARTRATE 50 MG TAB PO SCH ×2 (11:49→20:10)
[2018-12-30] MEDS: ISOSORBIDE MONONITRATE ER 30 MG TAB.ER.24H PO SCH (11:49)
[2018-12-30] MEDS: ATORVASTATIN 40 MG TAB PO SCH (12:22)
[2018-12-30] MEDS: amLODIPine 10 MG TAB PO SCH (12:22)
[2018-12-30] MEDS: ASPIRIN 81 MG PO SCH (12:22)
[2018-12-30] MEDS: RANOLAZINE 500 MG TAB.ER.12H PO SCH ×2 (12:23→21:11)
[2018-12-30] MEDS: FAMOTIDINE 20 MG TAB PO SCH (12:23)
[2018-12-30] MEDS: POTASSIUM CHLORIDE ER 10 MEQ TAB.ER.PRT PO SCH ×2 (12:23→20:10)
[2018-12-30] MEDS: ESCITALOPRAM 10 MG TAB PO SCH (12:23)
[2018-12-30] MEDS: hydrALAZINE HCL 50 MG TAB PO SCH ×3 (12:23→21:11)
[2018-12-30 12:25] LABS: HGB 11.6 gm/dL (11.4-16.0); MCH 31.5 pg (25.0-35.0); MCV 95.3 fL (80.0-100.0); Platelet Count 283 k/uL (150-450); RBC 3.68 m/uL (3.80-5.40); RDW 13.9 % (11.5-15.5); WBC 7.4 k/uL (3.8-10.6)
[2018-12-30 12:38] LABS: Calcium 9.1 mg/dL (8.4-10.2)
[2018-12-30 14:02] LABS: Glucose,Whole Blood 155 mg/dL (75-99)
--- NOTE | 2018-12-30 14:53 | P.PN ---
Subjective Progress Note Date: 12/30/18 This is a 88-year-old white female patient of my clinic patient, with past medical history of hypertension, hyperlipidemia, type 2 diabetes, previous episode of myocardial infarction with stenting of the LAD in November 2017. Patient is a former smoker. Patient is on a combination of aspirin and Plavix for antiplatelet therapy. Patient was brought in by her daughter to the hospital on December 20, 2018 for evaluation of bleeding either vaginal or GI source, during that last admission patient did not require any colonoscopy, however she does have endometrial thickening noted on transvaginal ultrasound 2.1 cm, patient also has episode of hypotension, required fluid boluses, and the titration of her IV diuretics. She also has intermittent dysphagic to solids for which pressed by esophagus was noted, with severe as original dysmotility and delayed esophageal emptying, soft diet was recommended with aspiration precautions, she also had hypoxemia for which home O2 was arranged prior to her discharge on 12/25/2018.. Patient has been discontinued on Plavix secondary to the GI bleed, aspirin has been resumed, hemoglobin on discharge was approximately 11.8, she also has orthostatic vital signs during the last admission Patient was discharged to home with home care and home O2, patient return back to the emergency room secondary to increasing dyspnea, dyspnea on exertion, d- dimer was elevated 1.6, also BNP is also elevated, patient shows some symptoms also off acute congestive heart failure exacerbation, she has slightly elevated troponins, for which cardiology has been consulted for this during this admission. We are going to obtain VQ scan in view off the elevated d-dimer, along with Dopplers of the lower extremity, IV Lasix provided 12/29: Patient continues to have severe respiratory distress on BiPAP with FiO2 of 50%, she has been afebrile, heart rate running in the 60s, blood pressure 159 /70. Troponins have been elevated and cardiology has ruled out acute coronary syndrome. Bilateral lower extremity Dopplers negative for DVT. Patient is unable to undergo VQ scan due to positioning and oxygen need. Lovenox started. Consult with pulmonary medicine has been added. C. diff stool toxin came back negative. 12/30: Patient remains on high flow nasal cannula with respiratory distress. This morning, pulse ox was 86% and was transitioned to BiPAP 60% FiO2. Patient was later transferred to the intensive care unit due to impending respiratory failure. She has had ultrasound of the chest and marked for thoracentesis and plan is for right sided today. She has been afebrile, blood pressure stable, BUN 53 and creatinine 1.8, white count is normal at 7.4 and hemoglobin 11.6. Blood sugars elevated and metformin will be discontinued as patient is not taking any oral medications. Levemir 5 units and NovoLog scale added. Dr. Arellano is following Review Of Systems: Constitutional: No fever, no chills, no night sweats. No weight change. Reports weakness, fatigue or lethargy. Reports daytime sleepiness. EENT: No headache. No blurred vision or double vision, no loss of vision. No loss of Hearing, no ringing in the ears, no dizziness. No nasal drainage or congestion. No epistaxis. No sore throat. Lungs: Reports shortness of breath, reports cough, no sputum production. Reports wheezing. Reports respiratory distress. Cardiovascular: No chest pain, no lower extremity edema. No palpitations. No paroxysmal nocturnal dyspnea. No orthopnea. No lightheadedness or dizziness. No syncopal episodes. Abdominal: No abdominal pain. No nausea, vomiting. No diarrhea. No constipation. No bloody or tarry stools.. No loss of appetite. Genitourinary: No dysuria, increased frequency, urgency. No urinary retention. Musculoskeletal: No myalgias. No muscle weakness, no gait dysfunction, no frequent falls. No back pain. No neck pain. Integumentary: No wounds, no lesions. No rash or pruritus. No unusual bruising. No change in hair or nails. Neurologic: No aphasia. No facial droop. No change in mentation. No head injury. No headache. No paralysis. No paresthesia. Psychiatric: No depression. No anxiety. No mood swings. Endocrine: No abnormal blood sugars. No weight change. No excessive sweating or thirst. No cold intolerance. No weight change. Objective - Vital Signs Vital signs: Vital Signs Temp 97.5 F L 12/30/18 04:00 Pulse 73 12/30/18 04:00 Resp 20 12/30/18 04:00 BP 122/61 12/30/18 04:00 Pulse Ox 91 L 12/30/18 08:02 Intake & Output 12/29/18 12/30/18 12/30/18 18:59 06:59 18:59 Intake Total 150 Output Total 350 8 150 Balance -350 -8 0 Weight 78 kg 75.353 kg Intake: Oral 150 Output: Urine 350 150 Stool 8 Other: Voiding Method Indwelling Catheter Indwelling Catheter - Exam General appearance: cooperative, moderate to severe distress - EENT Eyes: anicteric sclerae, EOMI, PERRLA, poor dentition, normal appearance ENT: NA/AT, normal oropharynx - Neck Neck: normal ROM - Respiratory Respiratory: bilateral: diminished, negative: dullness, rales, rhonchi - Cardiovascular Rhythm: regular Heart sounds: normal: S1, S2 Abnormal Heart Sounds: no systolic murmur, no diastolic murmur, no rub, no S3 Gallop, no S4 Gallop, no click, no other - Gastrointestinal General gastrointestinal: normal bowel sounds, soft - Integumentary Integumentary: normal, normal turgor - Neurologic Neurologic: CNII-XII intact - Musculoskeletal Musculoskeletal: gait normal, strength equal bilaterally - Psychiatric Psychiatric: A&O x's 3, appropriate affect, intact judgment & insight - Labs CBC & Chem 7: 12/30/18 11:25 12/30/18 11:25 Labs: Abnormal Lab Results - Last 24 Hours (Table) 12/29/18 12/29/18 12/29/18 Range/Units 11:26 17:02 20:29 Sodium (137-145) mmol/L BUN (7-17) mg/dL Creatinine (0.52-1.04) mg/dL Glucose (74-99) mg/dL POC Glucose (mg/dL) 171 H 155 H 170 H (75-99) mg/dL 12/30/18 12/30/18 Range/Units 05:53 06:17 Sodium 136 L (137-145) mmol/L BUN 51 H (7-17) mg/dL Creatinine 1.78 H (0.52-1.04) mg/dL Glucose 187 H (74-99) mg/dL POC Glucose (mg/dL) 203 H (75-99) mg/dL Microbiology - Last 24 Hours (Table) 12/28/18 10:21 Blood Culture - Preliminary Blood No Growth after 24 hours Assessment and Plan Plan: 1. Acute hypoxic and hypercapnic respiratory failure secondary to acute on chronic diastolic heart failure, bilateral pleural effusions with lactic acidosis. Continue IV Lasix 40 mg every 12 hours, monitor creatinine cautiously , history of orthostatic positive in the past, as well as hypertension, cardiology and pulmonary medicine consult appreciated. Plan for right sided thoracentesis today. Patient transferred to the intensive care unit. 2. Recent Lower GI bleed likely diverticular bleed however diverticulitis or neoplasm cannot be entirely ruled out. last colonoscopy was about 10 years ago, last EGD was done in 2018 and that showed mild gastritis with small hiatal hernia, continue patient on Protonix 40 mg IV push every 12 hours. Plavix has been formally discontinued by cardiology and patient is been resumed on baby aspirin. No intervention during the last admission December 20, 2018 2. CAD post-PCI of the LAD. Continue aspirin and discontinue Plavix, continue patient on metoprolol 50 mg orally twice every day Lipitor 40 mg orally once every day, Imdur 60 mg orally once every day, Ranexa 1000 g orally twice every day. 3. 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 Continue lisinopril increased to 40 mg orally once every day, continue metoprolol 50 mg orally twice every day. 4. Hyperlipidemia. Continue Lipitor 40 mg orally once every day. 5. Vascular dementia. Continue Aricept 5 mg orally once every day. 6. Osteoarthritis. Stable. 7. Generalized anxiety disorder and recurrent depression. Continue Lexapro 10 mg orally once every day. 8. Diabetes mellitus type 2. Metformin discontinued. Continue Levemir and NovoLog scale. 9. DVT prophylaxis. Bilateral knee-high OLE hose, Lovenox. 10. GI prophylaxis. Continue Protonix 40 mg IV push. 11. Endometrial thickening, also with her at elderly age to be investigated as an outpatient, to include endometrial biopsy, endometrial stripe 2.1 cm past [employer] appointment 12. Showing presbyesophagus speech evaluation, performed during the last admission, mechanical soft diet CODE STATUS: Full code. Discharge plan: To be determined Impression and plan of care have been directed as dictated by the signing physician. Donita Padron nurse practitioner acting as scribe for signing physician.
--- NOTE | 2018-12-30 14:56 | XR ---
EXAMINATION TYPE: XR chest 1V portable DATE OF EXAM: 12/30/2018 COMPARISON: Prior chest x-ray same dated earlier time HISTORY: Status post left thoracentesis TECHNIQUE: Single frontal view of the chest is obtained. FINDINGS: Interval improvement in aeration at the left lung base. No evident pneumothorax. IMPRESSION: No evident complication status post thoracentesis.
--- NOTE | 2018-12-30 15:22 | US ---
EXAMINATION TYPE: US chest DATE OF EXAM: 12/30/2018 COMPARISON: NONE CLINICAL HISTORY: right sided thoracentesis. Pleural effusion TECHNIQUE: Targeted ultrasound of the posterior lower bilateral EXAM MEASUREMENTS: Right Pleural Effusion pocket size: 9.8 cm, tissue within pocket Right skin surface to fluid distance: 3.9 cm Left Pleural Effusion pocket size: 8.4 cm Left skin surface to fluid distance: 4.0 cm Right side marked for possible thoracentesis outside the dept. Left side marked for possible thoracentesis outside the dept. Pulmonologists are able to review the images in the patient?s EMR. *Dr Arellano in room for imaging IMPRESSIONS: Bilateral pleural effusions
--- NOTE | 2018-12-30 15:55 | P.PN ---
Subjective Progress Note Date: 12/30/18 Principal diagnosis: Acute hypoxemic and hypercapnic respiratory failure secondary to acute exacerbation of congestive heart failure with diastolic dysfunction This 88-year-old white female patient of Dr. Sales with past medical history of hypertension, hyperlipidemia, type 2 diabetes, previous myocardial infarction with stenting of the LAD in November 2017, recent episode of GI bleeding. Patient is a former smoker. She was seen by GI service, with recommendation for conservative management, no plans for endoscopic studies. Patient was stabilized, discharged home in stable condition on 12/25/2018. She came back to the emergency department on 12/28/2018 with complaints of increasing shortness of breath, lower extremity edema. Chest x-ray showed pleural effusions, trace bibasilar density. She denied any fever or chills. Denied any chest pain. Blood work showed no leukocytosis, with white blood cell count of 8.5, hemoglobin 13.4, INR is 1.2, d-dimer of 1.36, serum sodium was 135, potassium is 4.1, chloride was 96, B1 is 32 creatinine is 1.2, plasma lactic acid was elevated to 2.5, troponin was elevated at 1.530, proBNP was 20,700. Patient was in significant rest or distress on admission, blood gas showed pO2 of 87, pCO2 56, and pH of 7.29. EKG showed sinus bradycardia, with ST and T- wave depression in leads 2, V5 and V6. Patient was placed on BiPAP support, patient was started on IV diuretics. We were asked to see this patient in consultation for shortness of breath. On 12/30/2018 patient seen in follow-up on selective care unit. She was given a trial of high flow nasal cannula, however she was descending, and was quite tachypneic and dyspneic. She was placed on BiPAP with pressures of 12/6 and FiO2 of 60%. Patient is still quite dyspneic, she is anxious, her sats remained marginal, about 86-90% on FiO2 of 60%, BiPAP settings were increased to 12/8 and FiO2 of 80%. Patient was given a dose of oral Xanax, repeat chest x -ray was obtained which showed internal improvements in aeration in volume status. Ultrasound of the chest showed a 10.2 cm pocket on the right, and 9.3 cm pocket on the left. Patient remains afebrile, his lab work has been reviewed , and showed a white blood cell count of 7.4, hemoglobin of 11.6, serum sodium is 135, potassium is 4.0, chloride is 97, renal profile is relatively stable with BUN of 53, creatinine of 1.8. Patient continues on IV diuretics with Lasix of 40 mg every 12 hours, and the diuresis has been somewhat suboptimal. In view of patient's increased work of breathing, worsening hypoxemic respiratory failure patient was transferred to the intensive care unit, we repeated a chest ultrasound at the bedside, and proceeded with left-sided thoracentesis in view of evidence of a large left and right pleural effusions. 850 mL of pleural fluid was removed, patient tolerated procedure very well. Daughter is at the bedside assisting. Postprocedure chest x-ray showed no evident complications status post thoracentesis. She is is more comfortable, remains on BiPAP, we may try to give her trial of nasal cannula later on. Vital signs are stable. FiO2 was brought down to 60%, her pulse ox is 94% right now. Objective - Vital Signs Vital signs: Vital Signs Temp 98.9 F 12/30/18 12:00 Pulse 66 12/30/18 15:00 Resp 17 12/30/18 15:00 BP 145/64 12/30/18 15:00 Pulse Ox 94 L 12/30/18 15:00 Intake & Output 12/29/18 12/30/18 12/30/18 18:59 06:59 18:59 Intake Total 150 Output Total 350 8 425 Balance -350 -8 -275 Weight 78 kg 75.353 kg Intake: Oral 150 Output: Urine 350 425 Stool 8 Other: Voiding Method Indwelling Catheter Indwelling Catheter Indwelling Catheter - Exam GENERAL EXAM: Alert, 88-year-old slightlly anxious, on BiPAP support, currently at 12 and 8 and 60%, tachypneic comfortable in no apparent distress. HEAD: Normocephalic/atraumatic. EYES: Normal reaction of pupils, equal size. Conjunctiva pink, sclera white. NOSE: Clear with pink turbinates. THROAT: No erythema or exudates. NECK: No masses, no JVD, no thyroid enlargement, no adenopathy. CHEST: No chest wall deformity. Symmetrical expansion. LUNGS: Equal air entry with bibasilar diminished breath sounds. CVS: Regular rate and rhythm, normal S1 and S2, no gallops, no murmurs, no rubs ABDOMEN: Soft, nontender. No hepatosplenomegaly, normal bowel sounds, no guarding or rigidity. EXTREMITIES: No clubbing, no edema, no cyanosis, 2+ pulses and upper and lower extremities. MUSCULOSKELETAL: Muscle strength and tone normal. SPINE: No scoliosis or deformity SKIN: No rashes CENTRAL NERVOUS SYSTEM: Alert and oriented -3. No focal deficits, tone is normal in all 4 extremities. PSYCHIATRIC: Alert and oriented -3. Appropriate affect. Intact judgment and insight. - Labs CBC & Chem 7: 12/30/18 11:25 12/30/18 11:25 Labs: Abnormal Lab Results - Last 24 Hours (Table) 12/29/18 12/29/18 12/30/18 Range/Units 17:02 20:29 05:53 RBC (3.80-5.40) m/uL Sodium (137-145) mmol/L Chloride (98-107) mmol/L BUN (7-17) mg/dL Creatinine (0.52-1.04) mg/dL Glucose (74-99) mg/dL POC Glucose (mg/dL) 155 H 170 H 203 H (75-99) mg/dL 12/30/18 12/30/18 12/30/18 Range/Units 06:17 11:09 11:25 RBC 3.68 L (3.80-5.40) m/uL Sodium 136 L (137-145) mmol/L Chloride (98-107) mmol/L BUN 51 H (7-17) mg/dL Creatinine 1.78 H (0.52-1.04) mg/dL Glucose 187 H (74-99) mg/dL POC Glucose (mg/dL) 202 H (75-99) mg/dL 12/30/18 12/30/18 Range/Units 11:25 13:51 RBC (3.80-5.40) m/uL Sodium 135 L (137-145) mmol/L Chloride 97 L (98-107) mmol/L BUN 53 H (7-17) mg/dL Creatinine 1.80 H (0.52-1.04) mg/dL Glucose 185 H (74-99) mg/dL POC Glucose (mg/dL) 155 H (75-99) mg/dL Microbiology - Last 24 Hours (Table) 12/28/18 10:21 Blood Culture - Preliminary Blood No Growth after 48 hours Assessment and Plan Plan: Assessment: #1. Acute hypercapnic and hypoxemic respiratory failure secondary to acute exacerbation of congestive heart failure with diastolic dysfunction #2. Acute dyspnea related to the above, chest x-ray showed bibasilar pleural effusions, status post left-sided thoracentesis would removal of 850 mL of pleural fluid today. #3. Lactic acidosis likely related to cardiorenal syndrome #4. Elevated d-dimer, nonspecific #5. Acute kidney injury #6. Elevated troponin #7. Recent hospitalization for lower GI bleeding, patient presented with bright red per rectum, was managed conservatively per GI recommendations, did not require blood transfusions #8. History of coronary artery disease with recent stenting in November 2017, she underwent stenting of her LAD #9. ABGs mellitus type II #10. Hypertension, hyperlipidemia Plan: Continue IV diuretics, patient has been transferred to the intensive care unit in view of increased work of breathing, and worsening hypoxemic respiratory failure. Thoracentesis was done at the bedside would removal of 850 mL of pleural fluid, patient tolerated procedure very well, pleural fluid was sent for analysis, cultures and cytology. Continue with IV diuretics, will likely proceed with right-sided thoracentesis tomorrow. This discussed with the family and the patient were in agreement with the plan. I performed a history & physical examination of the patient and discussed their management with my nurse practitioner, Earline Dumas. I reviewed the nurse practitioner's note and agree with the documented findings and plan of care. Lung sounds are positive for diminished breath sounds. The findings and the impression was discussed with the patient. I attest to the documentation by the nurse practitioner. Time with Patient: Greater than 30
[2018-12-30 17:38] LABS: Glucose,Whole Blood 155 mg/dL (75-99)
--- NOTE | 2018-12-30 18:18 | PN ---
PROGRESS NOTE Mrs. Mcclain is an 88-year-old female with a known history of coronary artery disease, history of renal failure, recent GI bleeding, who presented with symptoms of dyspnea. Earlier she became very dyspneic, was on BiPAP, transferred to the ICU and subsequently underwent thoracentesis by Dr. Arellano. She is feeling much better at this time with improvement in her breathing. She continues to be in sinus mechanism. There is no evidence of hypotension. She denies any chest pain. She denies any dizziness or palpitations. She is on high-flow nasal cannula. The thoracentesis was done on the left side. She continues at this point to be on amlodipine 10 mg daily, aspirin once a day, Lipitor 40 mg daily, furosemide 40 mg IV q.12 hours, hydralazine 50 mg 3 times a day, insulin, isosorbide mononitrate 30 mg daily, lisinopril 40 mg daily, metoprolol tartrate 50 mg twice a day, Ranexa 1000 mg twice a day, and potassium supplementation. PHYSICAL EXAMINATION: Blood pressure is running about 140/60 with a heart rate in the 60s. LUNGS: Decreased breath sounds, more noted in the right base. HEART: Regular rate and rhythm. S1, S2. No S3, with systolic murmur. No diastolic murmur. ABDOMEN: Soft, nontender. Positive bowel sounds. No organomegaly. EXTREMITIES: Mild edema. LAB DATA: BUN and creatinine of 53 and 1.8, potassium 4.0, hemoglobin of 11.6. IMPRESSION: 1. Acute episode of dyspnea with significant pleural effusion, status post thoracentesis, improved. 2. Congestive heart failure with diastolic dysfunction. 3. Coronary artery disease. 4. Chronic kidney disease. 5. Troponin elevation related to congestive heart failure. 6. History of hypertension. 7. Recent gastrointestinal bleeding. RECOMMENDATIONS: From the cardiac standpoint, we will continue on the present medical therapy and follow her renal function closely. Depending on her progress, further recommendations will be made. MMODL / IJN: [id number] /
--- NOTE | 2018-12-30 19:26 | PCN ---
PROCEDURE NOTE PROCEDURE PERFORMED: Left-sided thoracentesis. PREOPERATIVE DIAGNOSIS: Left pleural effusion. POSTOPERATIVE DIAGNOSIS: Left pleural effusion. ANESTHESIA USED: 2 mL of 1% lidocaine. PROCEDURE: The patient was placed in a sitting upright position, the left chest below the scapula was prepared in a sterile fashion and drapes were applied. The fluid was earlier localized by ultrasound guidance and marking correlated to the 8th intercostal space and tip of the scapula. The area was locally anesthetized. Then a 26-gauge needle was inserted all the way to the pleural space and fluid was localized with a needle. Then a small tiny skin incision was made and a catheter with the needle used and advanced into the pleural space until the fluid was obtained. Then, the needle was pulled out of the pleural space and the catheter was advanced further into the pleural space. Free-flowing fluid was removed, 800 mL of shiv colored fluid was removed from the pleural space, roughly 800 mL were removed. No evidence of any immediate complications, chest x-ray showed complete resolution of the left pleural effusion and no complication. No evidence of pneumothorax. MMODL / IJN: [id number] /
[2018-12-30] MEDS: HYDROCORTISONE SUPPOSITORY 25 MG SUPP RECTAL SCH (20:08)
[2018-12-30] MEDS: INSULIN DETEMIR (LEVEMIR) 100 UNIT/ML SYR SQ SCH (20:09)
[2018-12-30 20:20] LABS: Glucose,Whole Blood 132 mg/dL (75-99)
[2018-12-30 20:45] LABS: Appearance,BF Clear; Color,BF Yellow; Nucleated Cells, Body Fluid 215 /uL; RBC, Body Fluid 1435 /uL
[2018-12-30 20:46] LABS: Mononuclear WBC,Body Fluid 94 %; Polynuclear WBC,Body Fluid 6 %
[2018-12-30 21:40] LABS: Total Protein, Body Fluid 1080 mg/dL
[2018-12-30] MEDS ORDERED: Magnesium Replacement Protocol 1 EACH MISC MISCELLANE PRN (21:49)
[2018-12-30] MEDS: MAGNESIUM SULFATE-D5W PMX 1 GM in DEXTROSE/WATER 1 100ML.BAG IVPB SCH ×2 (22:19→23:25)
[2018-12-31] MEDS ORDERED: ACETAMINOPHEN TAB 325 MG TAB PO STA (03:16)
[2018-12-31 05:13] LABS: HCT 32.5 % (34.0-46.0); HGB 10.8 gm/dL (11.4-16.0); MCH 31.4 pg (25.0-35.0); MCHC 33.2 g/dL (31.0-37.0); MCV 94.6 fL (80.0-100.0); Mean Platelet Volume 6.2; Platelet Count 258 k/uL (150-450); RBC 3.43 m/uL (3.80-5.40); WBC 5.9 k/uL (3.8-10.6)
[2018-12-31 05:40] LABS: Calcium 8.6 mg/dL (8.4-10.2); Magnesium 2.1 mg/dL (1.6-2.3); Phosphorus 3.9 mg/dL (2.5-4.5)
[2018-12-31 05:44] LABS: Potassium 3.7 mmol/L (3.5-5.1)
[2018-12-31] MEDS: INSULIN ASPART (NovoLOG) 100 UNIT/ML VIAL SQ SCH ×4 (07:11→20:45)
[2018-12-31 07:17] LABS: Glucose,Whole Blood 141 mg/dL (75-99)
--- NOTE | 2018-12-31 07:41 | XR ---
EXAMINATION TYPE: XR chest 1V portable DATE OF EXAM: 12/31/2018 COMPARISON: 12/30/2018 HISTORY: Shortness of breath FINDINGS: Noted is pulmonary venous congestion with scattered infiltrates. There is also cardiomegaly and small effusions. IMPRESSION: Findings compatible with congestive failure. Infiltrates of other etiology are not excluded. Clinical correlation and progress studies are recommended.
[2018-12-31] MEDS: METOPROLOL TARTRATE 50 MG TAB PO SCH ×2 (08:18→20:53)
--- NOTE | 2018-12-31 10:02 | XR ---
EXAMINATION TYPE: XR chest 1V portable DATE OF EXAM: 12/31/2018 HISTORY: Shortness of breath. COMPARISON: 12/31/2018 TECHNIQUE: Single view of the chest is submitted. FINDINGS: Demonstrated are scattered senescent parenchymal change. There is persistent but improved pulmonary venous congestion with basilar infiltrates and small effus ions as well as cardiomegaly. Hilar and mediastinal structures are within normal limits. Degenerative changes are seen of the dorsal spine. IMPRESSION: 1. There is persistent but improved pulmonary venous congestion with basilar infiltrates and small e ffusions as well as cardiomegaly.
[2018-12-31] MEDS: amLODIPine 10 MG TAB PO SCH (10:35)
[2018-12-31] MEDS: ATORVASTATIN 40 MG TAB PO SCH (10:36)
[2018-12-31] MEDS: ESCITALOPRAM 10 MG TAB PO SCH (10:36)
[2018-12-31] MEDS: LISINOPRIL 20 MG TAB PO SCH (10:36)
[2018-12-31] MEDS: PANTOPRAZOLE 40 MG/10 ML VIAL IVP SCH (10:36)
[2018-12-31] MEDS: ASPIRIN 81 MG PO SCH (10:36)
[2018-12-31] MEDS: ENOXAPARIN 80 MG/0.8 ML SYRINGE SQ SCH (10:36)
[2018-12-31] MEDS: POTASSIUM CHLORIDE ER 10 MEQ TAB.ER.PRT PO SCH ×2 (10:37→20:54)
[2018-12-31] MEDS: FUROSEMIDE 10 MG/ML 4 ML VIAL IV SCH (10:37)
[2018-12-31 12:27] LABS: Glucose,Whole Blood 234 mg/dL (75-99)
[2018-12-31] MEDS: hydrALAZINE HCL 50 MG TAB PO SCH ×2 (13:10→16:13)
--- NOTE | 2018-12-31 13:18 | P.PN ---
Subjective Progress Note Date: 12/31/18 Principal diagnosis: acute hypoxic and hypercapnic respiratory failure secondary to diastolic congestive heart failure.bilateral pleural effusions This 88-year-old white female patient of Dr. Sales with past medical history of hypertension, hyperlipidemia, type 2 diabetes, previous myocardial infarction with stenting of the LAD in November 2017, recent episode of GI bleeding. Patient is a former smoker. She was seen by GI service, with recommendation for conservative management, no plans for endoscopic studies. Patient was stabilized, discharged home in stable condition on 12/25/2018. She came back to the emergency department on 12/28/2018 with complaints of increasing shortness of breath, lower extremity edema. Chest x-ray showed pleural effusions, trace bibasilar density. She denied any fever or chills. Denied any chest pain. Blood work showed no leukocytosis, with white blood cell count of 8.5, hemoglobin 13.4, INR is 1.2, d-dimer of 1.36, serum sodium was 135, potassium is 4.1, chloride was 96, B1 is 32 creatinine is 1.2, plasma lactic acid was elevated to 2.5, troponin was elevated at 1.530, proBNP was 20,700. Patient was in significant rest or distress on admission, blood gas showed pO2 of 87, pCO2 56, and pH of 7.29. EKG showed sinus bradycardia, with ST and T- wave depression in leads 2, V5 and V6. Patient was placed on BiPAP support, patient was started on IV diuretics. We were asked to see this patient in consultation for shortness of breath. On 12/30/2018 patient seen in follow-up on selective care unit. She was given a trial of high flow nasal cannula, however she was descending, and was quite tachypneic and dyspneic. She was placed on BiPAP with pressures of 12/6 and FiO2 of 60%. Patient is still quite dyspneic, she is anxious, her sats remained marginal, about 86-90% on FiO2 of 60%, BiPAP settings were increased to 12/8 and FiO2 of 80%. Patient was given a dose of oral Xanax, repeat chest x -ray was obtained which showed internal improvements in aeration in volume status. Ultrasound of the chest showed a 10.2 cm pocket on the right, and 9.3 cm pocket on the left. Patient remains afebrile, his lab work has been reviewed , and showed a white blood cell count of 7.4, hemoglobin of 11.6, serum sodium is 135, potassium is 4.0, chloride is 97, renal profile is relatively stable with BUN of 53, creatinine of 1.8. Patient continues on IV diuretics with Lasix of 40 mg every 12 hours, and the diuresis has been somewhat suboptimal. In view of patient's increased work of breathing, worsening hypoxemic respiratory failure patient was transferred to the intensive care unit, we repeated a chest ultrasound at the bedside, and proceeded with left-sided thoracentesis in view of evidence of a large left and right pleural effusions. 850 mL of pleural fluid was removed, patient tolerated procedure very well. Daughter is at the bedside assisting. Postprocedure chest x-ray showed no evident complications status post thoracentesis. She is is more comfortable, remains on BiPAP, we may try to give her trial of nasal cannula later on. Vital signs are stable. FiO2 was brought down to 60%, her pulse ox is 94% right now. Patient was reevaluated today on 12/31/2018. Feeling a bit better, however her chest x-ray showed is showing worsening right-sided pleural effusion. Patient remains on a high flow nasal cannula, hence I recommended right-sided thoracentesis which was done today at bedside, and I was able to drain about 1500 mL of non-bloody pleural effusion, shiv in color, and much similar to the left pleural effusion which turned out to be transudative in nature consistent with CHF. Patient felt much better after the thoracentesis, and we were able to cut down her FiO2 from high flow nasal cannula to 4 L nasal cannula. Clinically she felt much easier to breathe.labs were reviewed today, she had a relatively normal CBC. Normal electrolytes. BUN is 54 creatinine 1.46.improved compared to yesterday where in her creatinine was 1.80.remains on diuretics.she is on Lasix 40 mg IV push every 8 hours, and she is responding well to Lasix today. Objective - Vital Signs Vital signs: Vital Signs Temp 98.7 F 12/31/18 08:00 Pulse 62 12/31/18 11:00 Resp 21 12/31/18 11:00 BP 136/76 12/31/18 11:00 Pulse Ox 90 L 12/31/18 11:00 Intake & Output 12/30/18 12/31/18 12/31/18 18:59 06:59 18:59 Intake Total 150 200 Output Total 892 105 1289 Balance -459 720 -1580 Weight 75.9 kg Intake: IV 200 Magnesium Sulfate-D5w Pmx 200 1 gm In Dextrose/Water 1 100ml.bag @ 100 mls/hr IVPB Q1H [facility] Rx#: [id number] Oral 150 Output: Urine 609 920 280 Other 1300 Other: Voiding Method Indwelling Catheter Indwelling Catheter - Exam Physical Exam: Revealed 88-year-old female pleasant, in no distress. Head: Atraumatic, normocephalic. HEENT:[Neck is supple.] [No neck masses.] [No thyromegaly.] [No JVD.] Chest: [diminished breath sounds and dullness at the right base, left side is relatively clear, no rhonchi and no wheezes, symmetrical chest expansion, no chest wall tenderness.] Cardiac Exam: [Normal S1 and S2, no S3 gallop, no murmur.] Abdomen: [Soft, nontender, no megaly, no rebound, no guarding, normal bowel sounds.] Extremities: [No clubbing, no edema, no cyanosis.] Neurological Exam: [No focal neurologic deficit.]alert oriented 3. Psychiatric: Normal mood, affect and mental status examination. Skin: No rashes. - Labs CBC & Chem 7: 12/31/18 04:52 12/31/18 04:52 Labs: Abnormal Lab Results - Last 24 Hours (Table) 12/30/18 12/30/18 12/30/18 Range/Units 13:51 17:27 20:06 RBC (3.80-5.40) m/uL Hgb (11.4-16.0) gm/dL Hct (34.0-46.0) % Sodium (137-145) mmol/L BUN (7-17) mg/dL Creatinine (0.52-1.04) mg/dL Glucose (74-99) mg/dL POC Glucose (mg/dL) 155 H 155 H (75-99) mg/dL Magnesium 1.5 L (1.6-2.3) mg/dL 12/30/18 12/31/18 12/31/18 Range/Units 20:09 04:52 04:52 RBC 3.43 L (3.80-5.40) m/uL Hgb 10.8 L (11.4-16.0) gm/dL Hct 32.5 L (34.0-46.0) % Sodium 135 L (137-145) mmol/L BUN 54 H (7-17) mg/dL Creatinine 1.46 H (0.52-1.04) mg/dL Glucose 146 H (74-99) mg/dL POC Glucose (mg/dL) 132 H (75-99) mg/dL Magnesium (1.6-2.3) mg/dL 12/31/18 12/31/18 Range/Units 07:05 12:15 RBC (3.80-5.40) m/uL Hgb (11.4-16.0) gm/dL Hct (34.0-46.0) % Sodium (137-145) mmol/L BUN (7-17) mg/dL Creatinine (0.52-1.04) mg/dL Glucose (74-99) mg/dL POC Glucose (mg/dL) 141 H 234 H (75-99) mg/dL Magnesium (1.6-2.3) mg/dL Microbiology - Last 24 Hours (Table) 12/28/18 10:21 Blood Culture - Preliminary Blood No Growth after 72 hours 12/30/18 14:28 Gram Stain - Preliminary Pleural Fluid Body Fluid Culture - Preliminary 12/30/18 14:28 Acid Fast Bacilli Smear - Final Pleural Fluid Acid Fast Bacilli Culture - Preliminary 12/30/18 14:28 Fungal Culture - Preliminary Pleural Fluid Assessment and Plan Assessment: #1. Acute hypercapnic and hypoxemic respiratory failure secondary to acute exacerbation of congestive heart failure with diastolic dysfunction #2. Acute dyspnea related to the above, chest x-ray showed bibasilar pleural effusions, status post left-sided thoracentesis would removal of 850 mL of pleural fluid today. #3. Lactic acidosis likely related to cardiorenal syndrome #4. Elevated d-dimer, nonspecific #5. Acute kidney injury #6. Elevated troponin #7. Recent hospitalization for lower GI bleeding, patient presented with bright red per rectum, was managed conservatively per GI recommendations, did not require blood transfusions #8. History of coronary artery disease with recent stenting in November 2017, she underwent stenting of her LAD #9. ABGs mellitus type II #10. Hypertension, hyperlipidemia #11 status post left-sided thoracentesis on 12/30/2018, 850 mL of fluid was drained. Status post right-sided thoracentesis on 12/31/2018, 1300 mL of fluid were drained Recommendation:continue diuretics, continue oxygen, and titrate to keep saturation above 90%. Continue cardiac meds, the initial pleural effusion was noted to be transudative in nature, and I believe the right-sided pleural effusion is likely to be the same.continue cardiac meds continue to monitor blood pressure, continue Lovenox, continue Apresoline,continue to monitor and treat diabetes accordingly.continue Ranexa and other cardiac meds, consider transferring the patient out of the ICU today to a monitor bed on . We 'll continue to follow, and have repeat chest x-ray on Wednesday. Time with Patient: Less than 30
[2018-12-31] MEDS: ISOSORBIDE MONONITRATE ER 30 MG TAB.ER.24H PO SCH (13:36)
--- NOTE | 2018-12-31 14:05 | P.PN ---
Subjective Progress Note Date: 12/31/18 Principal diagnosis: Respiratory failure Patient was seen second thoracentesis this morning with 1300 clear yellow fluid out of the right lung. Patient feels much improved and have oxygen demand has gone down from 11 L to 4 L. Daughter at the bedside who had multiple concerns and questions Objective - Vital Signs Vital signs: Vital Signs Temp 98.4 F 12/31/18 12:00 Pulse 60 12/31/18 13:00 Resp 19 12/31/18 13:00 BP 115/38 12/31/18 13:00 Pulse Ox 89 L 12/31/18 13:00 Intake & Output 12/30/18 12/31/18 12/31/18 18:59 06:59 18:59 Intake Total 150 200 Output Total 931 749 6296 Balance -454 -027 -1540 Weight 75.9 kg Intake: IV 200 Magnesium Sulfate-D5w Pmx 200 1 gm In Dextrose/Water 1 100ml.bag @ 100 mls/hr IVPB Q1H [facility] Rx#: [id number] Oral 150 Output: Urine 609 920 440 Other 1300 Other: Voiding Method Indwelling Catheter Indwelling Catheter - Exam Lungs diminished bilaterally Heart normal S1-S2 Abdomen soft distended no guarding or rebound positive bowel sounds in all 4 quadrants Skin no new rash Lower extremity 2+ edema bilaterally Psych alert and oriented 3 - Labs CBC & Chem 7: 12/31/18 04:52 12/31/18 04:52 Labs: Abnormal Lab Results - Last 24 Hours (Table) 12/30/18 12/30/18 12/30/18 Range/Units 13:51 17:27 20:06 RBC (3.80-5.40) m/uL Hgb (11.4-16.0) gm/dL Hct (34.0-46.0) % Sodium (137-145) mmol/L BUN (7-17) mg/dL Creatinine (0.52-1.04) mg/dL Glucose (74-99) mg/dL POC Glucose (mg/dL) 155 H 155 H (75-99) mg/dL Magnesium 1.5 L (1.6-2.3) mg/dL 12/30/18 12/31/18 12/31/18 Range/Units 20:09 04:52 04:52 RBC 3.43 L (3.80-5.40) m/uL Hgb 10.8 L (11.4-16.0) gm/dL Hct 32.5 L (34.0-46.0) % Sodium 135 L (137-145) mmol/L BUN 54 H (7-17) mg/dL Creatinine 1.46 H (0.52-1.04) mg/dL Glucose 146 H (74-99) mg/dL POC Glucose (mg/dL) 132 H (75-99) mg/dL Magnesium (1.6-2.3) mg/dL 12/31/18 12/31/18 Range/Units 07:05 12:15 RBC (3.80-5.40) m/uL Hgb (11.4-16.0) gm/dL Hct (34.0-46.0) % Sodium (137-145) mmol/L BUN (7-17) mg/dL Creatinine (0.52-1.04) mg/dL Glucose (74-99) mg/dL POC Glucose (mg/dL) 141 H 234 H (75-99) mg/dL Magnesium (1.6-2.3) mg/dL Microbiology - Last 24 Hours (Table) 12/28/18 10:21 Blood Culture - Preliminary Blood No Growth after 72 hours 12/30/18 14:28 Gram Stain - Preliminary Pleural Fluid Body Fluid Culture - Preliminary 12/30/18 14:28 Acid Fast Bacilli Smear - Final Pleural Fluid Acid Fast Bacilli Culture - Preliminary 12/30/18 14:28 Fungal Culture - Preliminary Pleural Fluid Assessment and Plan Assessment: 1. Acute respiratory failure with hypoxia. 2. Congestive heart failure with exacerbation. 3. Severe debility and deconditioning. 4. Bilateral pleural effusion status post bilateral thoracentesis for total of 2100 mL clear yellow fluid. 5. Coronary artery disease status post stents. 6. Recent GI bleed currently stable. 7. Mild to moderate protein calorie malnutrition. 8. Generalized anasarca. Plan discussed with patient's and her daughter at the bedside and later with [employer] sales consultant on the case that he would like to continue with diuretics that was increased to 40 mg IV push every 8 hours continue with Sunshine catheter for monitoring close urine output and monitor her weight on daily basis, have physical lytic patient of therapy evaluated the patient and dietitian as well monitor her glucose closely and encourage oral intake. Prognosis remain guarded
--- NOTE | 2018-12-31 14:45 | P.PN ---
Subjective Progress Note Date: 12/31/18 his patient is admitted with congestive cardiac failure patient had bilateral thoracentesis is done patient had a thoracentesis is done today and about 1300 mL of clear fluid was removedsince echocardiogram in the past since revealed normal left ventricular systolic function is and currently is laying comfortably in the bed without any respiratory distress Objective - Vital Signs Vital signs: Vital Signs Temp 98.4 F 12/31/18 12:00 Pulse 60 12/31/18 13:00 Resp 19 12/31/18 13:00 BP 115/38 12/31/18 13:00 Pulse Ox 89 L 12/31/18 13:00 Intake & Output 12/30/18 12/31/18 12/31/18 18:59 06:59 18:59 Intake Total 150 200 Output Total 874 482 5014 Balance -459 720 -1740 Weight 75.9 kg Intake: IV 200 Magnesium Sulfate-D5w Pmx 200 1 gm In Dextrose/Water 1 100ml.bag @ 100 mls/hr IVPB Q1H [facility] Rx#: [id number] Oral 150 Output: Urine 609 920 440 Other 1300 Other: Voiding Method Indwelling Catheter Indwelling Catheter - Exam Patient's vital signs are reviewed. The patient is alert awake and in no acute distress. HEENT negative. Neck-supple no increase in JVP noted no carotid bruits noted. Chest-symmetrical. Heart-first and second heart sounds are normal. No S3 or S4 is noted. No significant murmurs are noted. Lungs bilateral good at entry is noted. No rales or rhonchi are noted Abdomen-soft. Liver and spleen are not enlarged. The bowel sounds are normal. No tenderness noted Extremities-peripheral pulses since are 2+. No significant leg edema noted. Neuro-no significant gross abnormality noted. - Labs CBC & Chem 7: 12/31/18 04:52 12/31/18 04:52 Labs: Abnormal Lab Results - Last 24 Hours (Table) 12/30/18 12/30/18 12/30/18 Range/Units 17:27 20:06 20:09 RBC (3.80-5.40) m/uL Hgb (11.4-16.0) gm/dL Hct (34.0-46.0) % Sodium (137-145) mmol/L BUN (7-17) mg/dL Creatinine (0.52-1.04) mg/dL Glucose (74-99) mg/dL POC Glucose (mg/dL) 155 H 132 H (75-99) mg/dL Magnesium 1.5 L (1.6-2.3) mg/dL 12/31/18 12/31/18 12/31/18 Range/Units 04:52 04:52 07:05 RBC 3.43 L (3.80-5.40) m/uL Hgb 10.8 L (11.4-16.0) gm/dL Hct 32.5 L (34.0-46.0) % Sodium 135 L (137-145) mmol/L BUN 54 H (7-17) mg/dL Creatinine 1.46 H (0.52-1.04) mg/dL Glucose 146 H (74-99) mg/dL POC Glucose (mg/dL) 141 H (75-99) mg/dL Magnesium (1.6-2.3) mg/dL 12/31/18 Range/Units 12:15 RBC (3.80-5.40) m/uL Hgb (11.4-16.0) gm/dL Hct (34.0-46.0) % Sodium (137-145) mmol/L BUN (7-17) mg/dL Creatinine (0.52-1.04) mg/dL Glucose (74-99) mg/dL POC Glucose (mg/dL) 234 H (75-99) mg/dL Magnesium (1.6-2.3) mg/dL Microbiology - Last 24 Hours (Table) 12/28/18 10:21 Blood Culture - Preliminary Blood No Growth after 72 hours 12/30/18 14:28 Gram Stain - Preliminary Pleural Fluid Body Fluid Culture - Preliminary 12/30/18 14:28 Acid Fast Bacilli Smear - Final Pleural Fluid Acid Fast Bacilli Culture - Preliminary 12/30/18 14:28 Fungal Culture - Preliminary Pleural Fluid Assessment and Plan Assessment: acute on chronic diastolic heart failure is improving. Patient is status post bilateral thoracentesis is Blood pressure is well controlled.
--- NOTE | 2018-12-31 15:43 | PCN ---
PROCEDURE NOTE PROCEDURE: Right-sided thoracentesis. PREOPERATIVE DIAGNOSIS: Large right-sided pleural effusion. POSTOPERATIVE DIAGNOSIS: Large right-sided pleural effusion. ANESTHESIA USED: 2 mL of 1% lidocaine. DESCRIPTION OF PROCEDURE: The patient was placed in a sitting upright position, the area below the right scapula was prepared in a sterile fashion and drapes were applied. The area of the fluid was localized yesterday by ultrasound guidance, and the site correlated to be around the 8th intercostal space and tip of the scapula. Again, the area was locally anesthetized, a 26-gauge needle was inserted at the same site, advanced into the pleural space and fluid was localized with the needle. Then a standard small tiny incision was made at the same site, and a standard thoracentesis catheter and needle were used, the needle was advanced into the pleural space until the fluid was obtained again. Then, the catheter was advanced out of the needle and the needle was pulled out of the pleural space. Freely flowing fluid was removed, roughly 1300 mL of shiv- colored fluid removed from the right pleural space. Procedure was well tolerated. No evidence of any immediate complications. The fluid was sent for different diagnostic studies. Chest x-ray postoperatively showed complete resolution of the pleural effusion and no evidence of pneumothorax. MMODL / IJN: [id number] /
[2018-12-31 17:17] LABS: Glucose,Whole Blood 123 mg/dL (75-99)
[2018-12-31] MEDS: HYDROCORTISONE SUPPOSITORY 25 MG SUPP RECTAL SCH (20:50)
[2018-12-31] MEDS: SPIRONOLACTONE 25 MG TAB PO SCH (20:54)
[2018-12-31] MEDS: INSULIN DETEMIR (LEVEMIR) 100 UNIT/ML SYR SQ SCH (20:54)
[2018-12-31 20:56] LABS: Glucose,Whole Blood 129 mg/dL (75-99)
[2019-01-01] MEDS: FUROSEMIDE 10 MG/ML 4 ML VIAL IV SCH ×3 (00:42→21:19)
[2019-01-01] MEDS: hydrALAZINE HCL 50 MG TAB PO SCH ×3 (02:39→15:02)
[2019-01-01 05:19] LABS: HCT 34.7 % (34.0-46.0); HGB 11.6 gm/dL (11.4-16.0); MCH 32.2 pg (25.0-35.0); MCHC 33.3 g/dL (31.0-37.0); MCV 96.5 fL (80.0-100.0); Mean Platelet Volume 6.3; Platelet Count 262 k/uL (150-450); RBC 3.59 m/uL (3.80-5.40); RDW 13.7 % (11.5-15.5); WBC 5.5 k/uL (3.8-10.6)
[2019-01-01 05:36] LABS: Calcium 8.6 mg/dL (8.4-10.2); Magnesium 1.9 mg/dL (1.6-2.3); Phosphorus 3.2 mg/dL (2.5-4.5); Potassium 3.5 mmol/L (3.5-5.1)
[2019-01-01] MEDS ORDERED: Potassium Replacement Protocol 1 EACH MISC MISCELLANE PRN (07:13)
[2019-01-01 07:36] LABS: Glucose,Whole Blood 130 mg/dL (75-99)
--- NOTE | 2019-01-01 08:05 | XR ---
EXAMINATION TYPE: XR chest 1V portable DATE OF EXAM: 01/01/2019 Comparison: 12/31/2018 Clinical History: 88-year-old female fluid overload Findings: The heart is mildly enlarged. Mild elongation thoracic aorta with atherosclerotic arch calcifications . Hyperinflation. Continued interstitial opacities. Slight worsening aeration at the lung bases. Opac ity is more focal at the left midlung. Impression: 1. Suspect COPD with superimposed CHF with pulmonary vascular congestion/early interstitial pulmonary edema, similar to slightly worsened. 2. Small left pleural effusion with adjacent atelectasis and/or consolidation. 3. Increased, more focal opacity at the left midlung, probably an area of developing confluent edema/ infiltrate.
[2019-01-01] MEDS: INSULIN ASPART (NovoLOG) 100 UNIT/ML VIAL SQ SCH ×4 (08:21→20:56)
[2019-01-01] MEDS: ASPIRIN 81 MG PO SCH (08:27)
[2019-01-01] MEDS: ATORVASTATIN 40 MG TAB PO SCH (08:27)
[2019-01-01] MEDS: amLODIPine 10 MG TAB PO SCH (08:27)
[2019-01-01] MEDS: POTASSIUM CHLORIDE ER 20 MEQ TAB.ER PO SCH ×2 (08:27→11:16)
[2019-01-01] MEDS: ESCITALOPRAM 10 MG TAB PO SCH (08:28)
[2019-01-01] MEDS: ISOSORBIDE MONONITRATE ER 30 MG TAB.ER.24H PO SCH (08:28)
[2019-01-01] MEDS: METOPROLOL TARTRATE 50 MG TAB PO SCH ×2 (08:28→21:19)
[2019-01-01] MEDS: LISINOPRIL 20 MG TAB PO SCH (08:28)
[2019-01-01] MEDS: ENOXAPARIN 80 MG/0.8 ML SYRINGE SQ SCH (08:28)
[2019-01-01] MEDS: PANTOPRAZOLE 40 MG/10 ML VIAL IVP SCH (08:28)
[2019-01-01] MEDS: POTASSIUM CHLORIDE ER 10 MEQ TAB.ER.PRT PO SCH ×2 (08:29→21:19)
[2019-01-01] MEDS: SPIRONOLACTONE 25 MG TAB PO SCH (08:29)
[2019-01-01 11:57] LABS: Glucose,Whole Blood 225 mg/dL (75-99)
--- NOTE | 2019-01-01 12:35 | P.PN ---
Subjective Progress Note Date: 01/01/19 Principal diagnosis: acute hypoxic and hypercapnic respiratory failure secondary to diastolic congestive heart failure.bilateral pleural effusions This 88-year-old white female patient of Dr. Sales with past medical history of hypertension, hyperlipidemia, type 2 diabetes, previous myocardial infarction with stenting of the LAD in November 2017, recent episode of GI bleeding. Patient is a former smoker. She was seen by GI service, with recommendation for conservative management, no plans for endoscopic studies. Patient was stabilized, discharged home in stable condition on 12/25/2018. She came back to the emergency department on 12/28/2018 with complaints of increasing shortness of breath, lower extremity edema. Chest x-ray showed pleural effusions, trace bibasilar density. She denied any fever or chills. Denied any chest pain. Blood work showed no leukocytosis, with white blood cell count of 8.5, hemoglobin 13.4, INR is 1.2, d-dimer of 1.36, serum sodium was 135, potassium is 4.1, chloride was 96, B1 is 32 creatinine is 1.2, plasma lactic acid was elevated to 2.5, troponin was elevated at 1.530, proBNP was 20,700. Patient was in significant rest or distress on admission, blood gas showed pO2 of 87, pCO2 56, and pH of 7.29. EKG showed sinus bradycardia, with ST and T- wave depression in leads 2, V5 and V6. Patient was placed on BiPAP support, patient was started on IV diuretics. We were asked to see this patient in consultation for shortness of breath. On 12/30/2018 patient seen in follow-up on selective care unit. She was given a trial of high flow nasal cannula, however she was descending, and was quite tachypneic and dyspneic. She was placed on BiPAP with pressures of 12/6 and FiO2 of 60%. Patient is still quite dyspneic, she is anxious, her sats remained marginal, about 86-90% on FiO2 of 60%, BiPAP settings were increased to 12/8 and FiO2 of 80%. Patient was given a dose of oral Xanax, repeat chest x -ray was obtained which showed internal improvements in aeration in volume status. Ultrasound of the chest showed a 10.2 cm pocket on the right, and 9.3 cm pocket on the left. Patient remains afebrile, his lab work has been reviewed , and showed a white blood cell count of 7.4, hemoglobin of 11.6, serum sodium is 135, potassium is 4.0, chloride is 97, renal profile is relatively stable with BUN of 53, creatinine of 1.8. Patient continues on IV diuretics with Lasix of 40 mg every 12 hours, and the diuresis has been somewhat suboptimal. In view of patient's increased work of breathing, worsening hypoxemic respiratory failure patient was transferred to the intensive care unit, we repeated a chest ultrasound at the bedside, and proceeded with left-sided thoracentesis in view of evidence of a large left and right pleural effusions. 850 mL of pleural fluid was removed, patient tolerated procedure very well. Daughter is at the bedside assisting. Postprocedure chest x-ray showed no evident complications status post thoracentesis. She is is more comfortable, remains on BiPAP, we may try to give her trial of nasal cannula later on. Vital signs are stable. FiO2 was brought down to 60%, her pulse ox is 94% right now. Patient was reevaluated today on 12/31/2018. Feeling a bit better, however her chest x-ray showed is showing worsening right-sided pleural effusion. Patient remains on a high flow nasal cannula, hence I recommended right-sided thoracentesis which was done today at bedside, and I was able to drain about 1500 mL of non-bloody pleural effusion, shiv in color, and much similar to the left pleural effusion which turned out to be transudative in nature consistent with CHF. Patient felt much better after the thoracentesis, and we were able to cut down her FiO2 from high flow nasal cannula to 4 L nasal cannula. Clinically she felt much easier to breathe.labs were reviewed today, she had a relatively normal CBC. Normal electrolytes. BUN is 54 creatinine 1.46.improved compared to yesterday where in her creatinine was 1.80.remains on diuretics.she is on Lasix 40 mg IV push every 8 hours, and she is responding well to Lasix today. Reevaluated today on 01/01/2019, patient is now on 4 L nasal cannula, doing quite well, no cough no wheezing no shortness of breath. Follow-up chest x-ray showed significant improvement in her bilateral pleural effusions, small tiny left pleural effusion is noted, right side is completely clear. Remind you patient had left-sided thoracentesis and a right sided thoracentesis. 850 mL were drained from the left side, and 1500 mL were drained from the right side. Patient remains on diuretics, and her renal functioning seems to be improving.creatinine today is down to 1.19, this is the best she had in the last few days.CBC is relatively normal and chest x-ray as noted above clinically the patient is feeling great.remains on multiple cardiac meds and she remains on Lasix which I cut down to 40 mg IV push every 12 hours.depending on how she does over the next 24 hours, may cut it down to 40 mg IV push daily. Objective - Vital Signs Vital signs: Vital Signs Temp 98.6 F 01/01/19 08:00 Pulse 57 L 01/01/19 12:00 Resp 12 01/01/19 12:00 BP 137/51 01/01/19 12:00 Pulse Ox 95 01/01/19 12:00 Intake & Output 12/31/18 01/01/19 01/01/19 18:59 06:59 18:59 Intake Total 200 Output Total 1950 910 465 Balance -1950 -910 -265 Weight 73.7 kg Intake: Oral 200 Output: Urine 650 910 465 Other 1300 Other: Voiding Method Indwelling Catheter Indwelling Catheter Indwelling Catheter - Exam Physical Exam: Revealed 88-year-old female pleasant, in no distress.on 4 L nasal cannula. O2 saturation is 94% Head: Atraumatic, normocephalic. HEENT:[Neck is supple.] [No neck masses.] [No thyromegaly.] [No JVD.] Chest: [clear breath sounds on the right side, diminished at the left base, minimal dullness at the left base, no crackles or rhonchi or wheezes. Cardiac Exam: [Normal S1 and S2, no S3 gallop, no murmur.] Abdomen: [Soft, nontender, no megaly, no rebound, no guarding, normal bowel sounds.] Extremities: [No clubbing, no edema, no cyanosis.] Neurological Exam: [No focal neurologic deficit.]alert oriented 3. Psychiatric: Normal mood, affect and mental status examination. Skin: No rashes. - Labs CBC & Chem 7: 01/01/19 04:36 01/01/19 04:36 Labs: Abnormal Lab Results - Last 24 Hours (Table) 12/31/18 12/31/18 01/01/19 Range/Units 17:04 20:44 04:36 RBC 3.59 L (3.80-5.40) m/uL Sodium (137-145) mmol/L Chloride (98-107) mmol/L BUN (7-17) mg/dL Creatinine (0.52-1.04) mg/dL Glucose (74-99) mg/dL POC Glucose (mg/dL) 123 H 129 H (75-99) mg/dL 01/01/19 01/01/19 01/01/19 Range/Units 04:36 07:25 11:45 RBC (3.80-5.40) m/uL Sodium 135 L (137-145) mmol/L Chloride 97 L (98-107) mmol/L BUN 51 H (7-17) mg/dL Creatinine 1.19 H (0.52-1.04) mg/dL Glucose 145 H (74-99) mg/dL POC Glucose (mg/dL) 130 H 225 H (75-99) mg/dL Microbiology - Last 24 Hours (Table) 12/30/18 14:28 Gram Stain - Preliminary Pleural Fluid Body Fluid Culture - Preliminary 12/28/18 10:21 Blood Culture - Preliminary Blood No Growth after 72 hours Assessment and Plan Assessment: #1. Acute hypercapnic and hypoxemic respiratory failure secondary to acute exacerbation of congestive heart failure with diastolic dysfunction #2. Acute dyspnea related to the above, chest x-ray showed bibasilar pleural effusions, status post left-sided thoracentesis and removal of 850 mL of pleural fluid today.status post thoracentesis on the right side, and 1500 mL of fluid were removed #3. Lactic acidosis, resolved.Not septic in nature #4. Elevated d-dimer, nonspecific #5. Acute kidney injury, significant improvement noted over the last few days. In spite of diuretics. And the dose of Lasix was cut down to 40 mg IV push every 12 hours. It was every 8 hours. #6. Elevated troponin #7. Recent hospitalization for lower GI bleeding, patient presented with bright red per rectum, was managed conservatively per GI recommendations, did not require blood transfusions #8. History of coronary artery disease with recent stenting in November 2017, she underwent stenting of her LAD #9. diabetes mellitus type II #10. Hypertension, hyperlipidemia #11 status post left-sided thoracentesis on 12/30/2018, 850 mL of fluid was drained. Status post right-sided thoracentesis on 12/31/2018, 1300 mL of fluid were drained Recommendation:continue Lasix 40 mg IV push every 12 hours, continue oxygen and titrate accordingly keep saturation above 90%. Continue blood pressure medications, cardiac meds as per cardiology, continue Lovenox, continue Apresoline, patient was taken off Ranexa by cardiology, however if she develops anginal symptoms, may have to be restarted back again. I have recommended transfer the patient out of the ICU today, she is remains quite ill, and not quite ready for any discharge planning, continues to have multiple complex issues as noted above, and we will continue to follow. I will order repeat chest x-ray in a.m. Time with Patient: Less than 30
--- NOTE | 2019-01-01 13:24 | P.PN ---
Subjective Progress Note Date: 01/01/19 Principal diagnosis: Respiratory failure Patient is improving every day and seems to be more comfortable. Patient is denying chest pain, nausea vomiting or abdominal pain Objective - Vital Signs Vital signs: Vital Signs Temp 98.6 F 01/01/19 08:00 Pulse 57 L 01/01/19 12:00 Resp 12 01/01/19 12:00 BP 137/51 01/01/19 12:00 Pulse Ox 95 01/01/19 12:00 Intake & Output 12/31/18 01/01/19 01/01/19 18:59 06:59 18:59 Intake Total 200 Output Total 1950 910 191 Balance -1950 -910 -265 Weight 73.7 kg Intake: Oral 200 Output: Urine 650 910 465 Other 1300 Other: Voiding Method Indwelling Catheter Indwelling Catheter Indwelling Catheter - Exam Lungs diminished bilaterally Heart normal S1-S2 Abdomen soft distended no guarding or rebound positive bowel sounds in all 4 quadrants Skin no new rash Lower extremity 2+ edema bilaterally Psych alert and oriented 3 - Labs CBC & Chem 7: 01/01/19 04:36 01/01/19 04:36 Labs: Abnormal Lab Results - Last 24 Hours (Table) 12/31/18 12/31/18 01/01/19 Range/Units 17:04 20:44 04:36 RBC 3.59 L (3.80-5.40) m/uL Sodium (137-145) mmol/L Chloride (98-107) mmol/L BUN (7-17) mg/dL Creatinine (0.52-1.04) mg/dL Glucose (74-99) mg/dL POC Glucose (mg/dL) 123 H 129 H (75-99) mg/dL 01/01/19 01/01/19 01/01/19 Range/Units 04:36 07:25 11:45 RBC (3.80-5.40) m/uL Sodium 135 L (137-145) mmol/L Chloride 97 L (98-107) mmol/L BUN 51 H (7-17) mg/dL Creatinine 1.19 H (0.52-1.04) mg/dL Glucose 145 H (74-99) mg/dL POC Glucose (mg/dL) 130 H 225 H (75-99) mg/dL Microbiology - Last 24 Hours (Table) 12/28/18 10:21 Blood Culture - Preliminary Blood No Growth after 96 hours 12/30/18 14:28 Gram Stain - Preliminary Pleural Fluid Body Fluid Culture - Preliminary Assessment and Plan Assessment: 1. Acute respiratory failure with hypoxia. 2. Congestive heart failure with exacerbation. 3. Severe debility and deconditioning. 4. Bilateral pleural effusion status post bilateral thoracentesis for total of 2100 mL clear yellow fluid. 5. Coronary artery disease status post stents. 6. Recent GI bleed currently stable. 7. Mild to moderate protein calorie malnutrition. 8. Generalized anasarca. We'll decrease Lasix dose to 40 mg IV push twice daily, remove Sunshine catheter and do voiding trials, transfer patient to [facility] and monitor her vital signs closely continue monitoring her urine output. Discharge planning based on clinical progress plan discussed with customs consultant on the case
[2019-01-01 17:17] LABS: Glucose,Whole Blood 189 mg/dL (75-99)
[2019-01-01 20:49] LABS: Glucose,Whole Blood 165 mg/dL (75-99)
[2019-01-01] MEDS: INSULIN DETEMIR (LEVEMIR) 100 UNIT/ML SYR SQ SCH (20:56)
[2019-01-01] MEDS: HYDROCORTISONE SUPPOSITORY 25 MG SUPP RECTAL SCH (21:05)
--- NOTE | 2019-01-01 22:19 | P.PN ---
Subjective Progress Note Date: 01/01/19 This patient is status post acute on chronic diastolic heart failure and bilateral thoracentesis recent is laying comfortably in the bed without any respiratory distress his since remains a stable otherwise cardiac-[facility] Objective - Vital Signs Vital signs: Vital Signs Temp 97.9 F 01/01/19 20:00 Pulse 65 01/01/19 20:00 Resp 21 01/01/19 20:00 BP 128/57 01/01/19 20:00 Pulse Ox 93 L 01/01/19 20:00 Intake & Output 01/01/19 01/01/19 01/02/19 06:59 18:59 06:59 Intake Total 200 Output Total 910 690 275 Balance -910 -490 -275 Weight 73.7 kg Intake: Oral 200 Output: Urine 910 690 275 Other: Voiding Method Indwelling Catheter Indwelling Catheter Indwelling Catheter # Bowel Movements 1 - Exam Patient's vital signs are reviewed. The patient is alert awake and in no acute distress. HEENT negative. Neck-supple no increase in JVP noted no carotid bruits noted. Chest-symmetrical. Heart-first and second heart sounds are normal. No S3 or S4 is noted. No significant murmurs are noted. Lungs bilateral good at entry is noted. No rales or rhonchi are noted Abdomen-soft. Liver and spleen are not enlarged. The bowel sounds are normal. No tenderness noted Extremities-peripheral pulses since are 2+. No significant leg edema noted. Neuro-no significant gross abnormality noted. - Labs CBC & Chem 7: 01/01/19 04:36 01/01/19 04:36 Labs: Abnormal Lab Results - Last 24 Hours (Table) 01/01/19 01/01/19 01/01/19 Range/Units 04:36 04:36 07:25 RBC 3.59 L (3.80-5.40) m/uL Sodium 135 L (137-145) mmol/L Chloride 97 L (98-107) mmol/L BUN 51 H (7-17) mg/dL Creatinine 1.19 H (0.52-1.04) mg/dL Glucose 145 H (74-99) mg/dL POC Glucose (mg/dL) 130 H (75-99) mg/dL 01/01/19 01/01/19 01/01/19 Range/Units 11:45 17:05 20:36 RBC (3.80-5.40) m/uL Sodium (137-145) mmol/L Chloride (98-107) mmol/L BUN (7-17) mg/dL Creatinine (0.52-1.04) mg/dL Glucose (74-99) mg/dL POC Glucose (mg/dL) 225 H 189 H 165 H (75-99) mg/dL Microbiology - Last 24 Hours (Table) 12/30/18 14:28 Gram Stain - Preliminary Pleural Fluid Body Fluid Culture - Preliminary 12/28/18 10:21 Blood Culture - Preliminary Blood No Growth after 96 hours Assessment and Plan Assessment: Status post acute on chronic diastolic heart failure and bilateral thoracentesis Patient currently is in no acute respiratory distress and we will continue the current medications
[2019-01-02] MEDS: hydrALAZINE HCL 50 MG TAB PO SCH ×3 (01:56→17:06)
[2019-01-02 05:00] LABS: HCT 35.3 % (34.0-46.0); HGB 11.6 gm/dL (11.4-16.0); MCH 32.6 pg (25.0-35.0); MCV 98.6 fL (80.0-100.0); Mean Platelet Volume 6.3; Platelet Count 248 k/uL (150-450); RBC 3.58 m/uL (3.80-5.40); RDW 13.7 % (11.5-15.5); WBC 4.9 k/uL (3.8-10.6)
[2019-01-02 05:16] LABS: Calcium 8.4 mg/dL (8.4-10.2); Magnesium 1.7 mg/dL (1.6-2.3); Phosphorus 2.8 mg/dL (2.5-4.5); Potassium 4.5 mmol/L (3.5-5.1)
[2019-01-02] MEDS: MAGNESIUM SULFATE-D5W PMX 1 GM in DEXTROSE/WATER 1 100ML.BAG IVPB SCH ×2 (06:28→09:01)
[2019-01-02] MEDS: INSULIN ASPART (NovoLOG) 100 UNIT/ML VIAL SQ SCH ×4 (06:38→21:38)
[2019-01-02 06:50] LABS: Glucose,Whole Blood 130 mg/dL (75-99)
--- NOTE | 2019-01-02 08:22 | XR ---
EXAMINATION TYPE: XR chest 1V portable DATE OF EXAM: 01/02/2019 COMPARISON: 01/01/2019 HISTORY: Shortness of breath TECHNIQUE: Single frontal view of the chest is obtained. FINDINGS: The heart is mildly enlarged. Mild Hyperinflation. Continued interstitial opacities. Stabl e aeration at the lung bases. Opacity is more focal at the left midlung. Postsurgical change overlyin g cervical spine. Bilateral consolidation is stable. Arthropathy of the shoulders. IMPRESSION: Bilateral consolidation and pleural effusion correlate for pneumonia versus CHF. Finding s are stable.
[2019-01-02] MEDS: METOPROLOL TARTRATE 50 MG TAB PO SCH ×2 (09:09→21:38)
[2019-01-02] MEDS: POTASSIUM CHLORIDE ER 10 MEQ TAB.ER.PRT PO SCH ×2 (09:09→21:38)
[2019-01-02] MEDS: LISINOPRIL 20 MG TAB PO SCH (09:09)
[2019-01-02] MEDS: ESCITALOPRAM 10 MG TAB PO SCH (09:09)
[2019-01-02] MEDS: ATORVASTATIN 40 MG TAB PO SCH (09:09)
[2019-01-02] MEDS: ASPIRIN 81 MG PO SCH (09:10)
[2019-01-02] MEDS: amLODIPine 10 MG TAB PO SCH (09:10)
[2019-01-02] MEDS: FUROSEMIDE 10 MG/ML 4 ML VIAL IV SCH (09:10)
[2019-01-02] MEDS: ISOSORBIDE MONONITRATE ER 30 MG TAB.ER.24H PO SCH (09:10)
[2019-01-02] MEDS: SPIRONOLACTONE 25 MG TAB PO SCH (09:10)
[2019-01-02] MEDS: ENOXAPARIN 80 MG/0.8 ML SYRINGE SQ SCH ×2 (09:10→21:38)
--- NOTE | 2019-01-02 09:50 | CDI ---
Documentation Clarification Form Date: 01/02/2019 9:34:08 AM From: Nano Elias CCS, CCDS Admit Date: 12/28/2018 11:37:00 AM Patient Name: Tracy Mcclain Visit Number: [id number] Discharge Date: ATTENTION: The Clinical Documentation Specialists (CDI) and [facility] Coding Staff appreciate your assistance in clarifying documentation. Please respond to the clarification below the line at the bottom and electronically sign. The CDI & [facility] Coding staff will review the response and follow-up if needed. Please note: Queries are made part of the Legal Health Record. If you have any questions, please contact the author of this message via ITS. Dr. Anabel Arellano: Per the 12/29 Pulmonary consult & subsequent progress notes: "Acute hypercapnic respiratory failure secondary to acute exacerbation of congestive heart failure with diastolic dysfunction." Per the H/P the patient was recently discharged on 12/25/18 with home O2 for hypoxemia. History/Risk Factors: Diastolic CHF, Hypertension, recent lower GI bleed, CAD with PCI of LAD, Vascular dementia & possible CKD. Former smoker. Clinical Indicators: Presented with SOB. Vital signs: T 97.5*, P 79, R 26^, BP 173/70^, PO 94 BiPAP Blood Gas: pH 7.29*, pCO2 56^, HCO3 27^, T CO2 28^. LAB: Lactic Acid 3.1^^, Trops: 0.494^^, 1.250^^, 1.530^^. RAD: CXR: Suspect CHF w/pleural effusions. Correlate to exclude pneumonia. Treatment: BiPAP - high flow O2 12L - 4L, IV Lasix, IV Heparin, IV MagSulfate In your professional opinion, can you please clarify if these findings signify one of the following conditions? Acute OR Acute on Chronic Respiratory Failure with the following specificity: o Hypercapnic o Hypoxic Other Diagnosis, please specify Unable to determine (Last Revision: February 2018) DEDRAD
--- NOTE | 2019-01-02 09:59 | CDI ---
Documentation Clarification Form Date: 01/02/2019 9:52:22 AM From: Nano Elias CCS, CCDS Admit Date: 12/28/2018 11:37:00 AM Patient Name: Tracy Mcclain Visit Number: [id number] Discharge Date: ATTENTION: The Clinical Documentation Specialists (CDI) and [facility] Coding Staff appreciate your assistance in clarifying documentation. Please respond to the clarification below the line at the bottom and electronically sign. The CDI & [facility] Coding staff will review the response and follow-up if needed. Please note: Queries are made part of the Legal Health Record. If you have any questions, please contact the author of this message via ITS. Dr. Singh Chen: Patient was admitted with SOB, diagnosed with Acute hypercapnic & hypoxemic respiratory failure secondary to acute exacerbation of CHF with diastolic dysfunction. Per the Cardiology consult & subsequent progress notes: CKD is documented. Per the Pulmonary consult & subsequent progress notes: Cardiorenal syndrome is documented with no specificity. History/Risk Factors: Diastolic CHF, Hypertension, Hypertensive cardiovascular disease, CAD w/prior stent. Clinical Indicators: LAB Values: BUN: 32 - 54 - 45; Creatinine: 1.21 - 1.80 - (0.99); GFR: 41 - 32 - 52 Patients Baseline BUN/CR/GFR: unknown or not documented, nephrology is not consulted. Treatment: IV Lasix, IV Heparin, IV MagSulfate In order to capture the severity of condition, please clarify if the condition signifies: CKD Stage 1 (GFR > 90) CKD Stage 2 (GFR 60-89) CKD Stage 3 (GFR 30-59) CKD Stage 4 (GFR 15-29) CKD Stage 5 (GFR <15) Other, please specify Unable to determine (Last Revision: February 2018) MTDD
--- NOTE | 2019-01-02 10:06 | P.PN ---
Subjective Progress Note Date: 01/02/19 Principal diagnosis: Acute hypoxemic and hypercapnic respiratory failure secondary to acute exacerbation of congestive heart failure with diastolic dysfunction This 88-year-old white female patient of Dr. Sales with past medical history of hypertension, hyperlipidemia, type 2 diabetes, previous myocardial infarction with stenting of the LAD in November 2017, recent episode of GI bleeding. Patient is a former smoker. She was seen by GI service, with recommendation for conservative management, no plans for endoscopic studies. Patient was stabilized, discharged home in stable condition on 12/25/2018. She came back to the emergency department on 12/28/2018 with complaints of increasing shortness of breath, lower extremity edema. Chest x-ray showed pleural effusions, trace bibasilar density. She denied any fever or chills. Denied any chest pain. Blood work showed no leukocytosis, with white blood cell count of 8.5, hemoglobin 13.4, INR is 1.2, d-dimer of 1.36, serum sodium was 135, potassium is 4.1, chloride was 96, B1 is 32 creatinine is 1.2, plasma lactic acid was elevated to 2.5, troponin was elevated at 1.530, proBNP was 20,700. Patient was in significant rest or distress on admission, blood gas showed pO2 of 87, pCO2 56, and pH of 7.29. EKG showed sinus bradycardia, with ST and T- wave depression in leads 2, V5 and V6. Patient was placed on BiPAP support, patient was started on IV diuretics. We were asked to see this patient in consultation for shortness of breath. On 12/30/2018 patient seen in follow-up on selective care unit. She was given a trial of high flow nasal cannula, however she was descending, and was quite tachypneic and dyspneic. She was placed on BiPAP with pressures of 12/6 and FiO2 of 60%. Patient is still quite dyspneic, she is anxious, her sats remained marginal, about 86-90% on FiO2 of 60%, BiPAP settings were increased to 12/8 and FiO2 of 80%. Patient was given a dose of oral Xanax, repeat chest x -ray was obtained which showed internal improvements in aeration in volume status. Ultrasound of the chest showed a 10.2 cm pocket on the right, and 9.3 cm pocket on the left. Patient remains afebrile, his lab work has been reviewed , and showed a white blood cell count of 7.4, hemoglobin of 11.6, serum sodium is 135, potassium is 4.0, chloride is 97, renal profile is relatively stable with BUN of 53, creatinine of 1.8. Patient continues on IV diuretics with Lasix of 40 mg every 12 hours, and the diuresis has been somewhat suboptimal. In view of patient's increased work of breathing, worsening hypoxemic respiratory failure patient was transferred to the intensive care unit, we repeated a chest ultrasound at the bedside, and proceeded with left-sided thoracentesis in view of evidence of a large left and right pleural effusions. 850 mL of pleural fluid was removed, patient tolerated procedure very well. Daughter is at the bedside assisting. Postprocedure chest x-ray showed no evident complications status post thoracentesis. She is is more comfortable, remains on BiPAP, we may try to give her trial of nasal cannula later on. Vital signs are stable. FiO2 was brought down to 60%, her pulse ox is 94% right now. On 01/02/2019 patient seen in follow-up in the intensive care unit. She is resting comfortably in bed, currently on 4 L per nasal cannula, did not require IPAP support last night, her pulse ox is 94-97%, afebrile, hemodynamically stable, sinus mechanism, with a rate of 51 BPM. Complaints of shortness of breath or chest pain. Today's chest x-ray has been reviewed with Dr. Guidry and showed bilateral pleural effusions, left greater than the right, with adjacent atelectasis, and interstitial opacities, patient is status post left-sided thoracentesis on 12/30/2018 would removal of 850 mL of pleural fluid. An right- sided thoracentesis on 12/31/2018 would removal of 1300 mL of pleural fluid. Pleural fluid analysis revealed transudative fluid. Patient continues with IV diuretics, currently at 40 mg every 12 hours. In -1465 ML fluid balance. Volume status is improving. Breathing easier, lung sounds are positive for minimal crackles at the bases, his labs have been reviewed, and showed a white blood cell count of 4.9, hemoglobin of 11.6, sodium is 135, there is any fluctuance within normal limits, BUN is 45 and creatinine is 0.99. Objective - Vital Signs Vital signs: Vital Signs Temp 97.7 F 01/02/19 04:00 Pulse 51 L 01/02/19 04:00 Resp 17 01/02/19 04:00 BP 145/54 01/02/19 04:00 Pulse Ox 94 L 01/02/19 04:00 Intake & Output 01/01/19 01/02/19 01/02/19 18:59 06:59 18:59 Intake Total 200 Output Total 690 975 Balance -490 -975 Weight 75.5 kg Intake: Oral 200 Output: Urine 690 975 Other: Voiding Method Indwelling Catheter Indwelling Catheter # Bowel Movements 1 - Exam GENERAL EXAM: Alert, 88-year-old man 4 L per nasal cannula, with a sat of 94-97 %, resting comfortably in bed, no use of accessory muscles of breathing, appears comfortable. HEAD: Normocephalic/atraumatic. EYES: Normal reaction of pupils, equal size. Conjunctiva pink, sclera white. NOSE: Clear with pink turbinates. THROAT: No erythema or exudates. NECK: No masses, no JVD, no thyroid enlargement, no adenopathy. CHEST: No chest wall deformity. Symmetrical expansion. LUNGS: Equal air entry with minimal bibasilar crackles. CVS: Regular rate and rhythm, normal S1 and S2, no gallops, no murmurs, no rubs ABDOMEN: Soft, nontender. No hepatosplenomegaly, normal bowel sounds, no guarding or rigidity. EXTREMITIES: No clubbing, no edema, no cyanosis, 2+ pulses and upper and lower extremities. MUSCULOSKELETAL: Muscle strength and tone normal. SPINE: No scoliosis or deformity SKIN: No rashes CENTRAL NERVOUS SYSTEM: Alert and oriented -3. No focal deficits, tone is normal in all 4 extremities. PSYCHIATRIC: Alert and oriented -3. Appropriate affect. Intact judgment and insight. - Labs CBC & Chem 7: 01/02/19 04:42 01/02/19 04:42 Labs: Abnormal Lab Results - Last 24 Hours (Table) 01/01/19 01/01/19 01/01/19 Range/Units 11:45 17:05 20:36 RBC (3.80-5.40) m/uL Sodium (137-145) mmol/L BUN (7-17) mg/dL Glucose (74-99) mg/dL POC Glucose (mg/dL) 225 H 189 H 165 H (75-99) mg/dL 01/02/19 01/02/19 01/02/19 Range/Units 04:42 04:42 06:38 RBC 3.58 L (3.80-5.40) m/uL Sodium 135 L (137-145) mmol/L BUN 45 H (7-17) mg/dL Glucose 137 H (74-99) mg/dL POC Glucose (mg/dL) 130 H (75-99) mg/dL Microbiology - Last 24 Hours (Table) 12/30/18 14:28 Gram Stain - Preliminary Pleural Fluid Body Fluid Culture - Preliminary 12/28/18 10:21 Blood Culture - Preliminary Blood No Growth after 96 hours Assessment and Plan Plan: Assessment: #1. Acute hypoxemic respiratory failure secondary to acute exacerbation of congestive heart failure with diastolic dysfunction #2. Acute dyspnea related to the above, chest x-ray showed bibasilar pleural effusions, status post left-sided thoracentesis with removal of 850 mL of pleural fluid on 12/30/2018, and right-sided thoracentesis with removal of 1300 mL of pleural fluid, pleural fluid analysis showed transudative fluid, cytology is pending. Pleural fluid cultures are negative thus far. #3. Lactic acidosis likely related to cardiorenal syndrome, #4. Elevated d-dimer, nonspecific #5. Acute kidney injury, improved #6. Elevated troponin #7. Recent hospitalization for lower GI bleeding, patient presented with bright red per rectum, was managed conservatively per GI recommendations, did not require blood transfusions #8. History of coronary artery disease with recent stenting in November 2017, she underwent stenting of her LAD #9. ABGs mellitus type II #10. Hypertension, hyperlipidemia Plan: We'll continue with current plan of treatment continue IV diuretics, patient is maintaining negative fluid balance, definite breathing easier, wean FiO2, did not require BiPAP support last night, no specific complaints, no complaints of shortness of breath or chest pain. Today's chest x-ray showed bilateral pleural effusions, left greater than the right, with recent atelectasis, no fever or chills, hemodynamically patient is stable. Awaiting a bed on selective care unit today. Continue to follow. I performed a history & physical examination of the patient and discussed their management with my nurse practitioner, Earline Dumas. I reviewed the nurse practitioner's note and agree with the documented findings and plan of care. Lung sounds are positive for diminished breath sounds. The findings and the impression was discussed with the patient. I attest to the documentation by the nurse practitioner. Time with Patient: Less than 30
[2019-01-02 10:36] VITALS: BMI 29.5
[2019-01-02] MEDS: PANTOPRAZOLE 40 MG/10 ML VIAL IVP SCH (11:58)
[2019-01-02 12:16] LABS: Glucose,Whole Blood 232 mg/dL (75-99)
[2019-01-02] MEDS: CLOTRIMAZOLE TROCHE 10 MG TROCHE MUCOUS MEM SCH ×3 (14:22→21:37)
--- NOTE | 2019-01-02 15:10 | P.PN ---
Subjective Progress Note Date: 01/02/19 This is a 88-year-old white female patient of my clinic patient, with past medical history of hypertension, hyperlipidemia, type 2 diabetes, previous episode of myocardial infarction with stenting of the LAD in November 2017. Patient is a former smoker. Patient is on a combination of aspirin and Plavix for antiplatelet therapy. Patient was brought in by her daughter to the hospital on December 20, 2018 for evaluation of bleeding either vaginal or GI source, during that last admission patient did not require any colonoscopy, however she does have endometrial thickening noted on transvaginal ultrasound 2.1 cm, patient also has episode of hypotension, required fluid boluses, and the titration of her IV diuretics. She also has intermittent dysphagic to solids for which pressed by esophagus was noted, with severe as original dysmotility and delayed esophageal emptying, soft diet was recommended with aspiration precautions, she also had hypoxemia for which home O2 was arranged prior to her discharge on 12/25/2018.. Patient has been discontinued on Plavix secondary to the GI bleed, aspirin has been resumed, hemoglobin on discharge was approximately 11.8, she also has orthostatic vital signs during the last admission Patient was discharged to home with home care and home O2, patient return back to the emergency room secondary to increasing dyspnea, dyspnea on exertion, d- dimer was elevated 1.6, also BNP is also elevated, patient shows some symptoms also off acute congestive heart failure exacerbation, she has slightly elevated troponins, for which cardiology has been consulted for this during this admission. We are going to obtain VQ scan in view off the elevated d-dimer, along with Dopplers of the lower extremity, IV Lasix provided 12/29: Patient continues to have severe respiratory distress on BiPAP with FiO2 of 50%, she has been afebrile, heart rate running in the 60s, blood pressure 159 /70. Troponins have been elevated and cardiology has ruled out acute coronary syndrome. Bilateral lower extremity Dopplers negative for DVT. Patient is unable to undergo VQ scan due to positioning and oxygen need. Lovenox started. Consult with pulmonary medicine has been added. C. diff stool toxin came back negative. 12/30: Patient remains on high flow nasal cannula with respiratory distress. This morning, pulse ox was 86% and was transitioned to BiPAP 60% FiO2. Patient was later transferred to the intensive care unit due to impending respiratory failure. She has had ultrasound of the chest and marked for thoracentesis and plan is for right sided today. She has been afebrile, blood pressure stable, BUN 53 and creatinine 1.8, white count is normal at 7.4 and hemoglobin 11.6. Blood sugars elevated and metformin will be discontinued as patient is not taking any oral medications. Levemir 5 units and NovoLog scale added. Dr. Arellano is following 12/31: Patient was seen second thoracentesis this morning with 1300 clear yellow fluid out of the right lung. Patient feels much improved and have oxygen demand has gone down from 11 L to 4 L. Daughter at the bedside who had multiple concerns and questions. Plan discussed with patient's and her daughter at the bedside and later with senior telecommunications consultant on the case that he would like to continue with diuretics that was increased to 40 mg IV push every 8 hours continue with Sunshine catheter for monitoring close urine output and monitor her weight on daily basis, have physical lytic patient of therapy evaluated the patient and dietitian as well monitor her glucose closely and encourage oral intake. 01/01: Patient is improving every day and seems to be more comfortable. Patient is denying chest pain, nausea vomiting or abdominal pain. We'll decrease Lasix dose to 40 mg IV push twice daily, remove Sunshine catheter and do voiding trials, transfer patient to [facility] and monitor her vital signs closely continue monitoring her urine output. Discharge planning based on clinical progress plan discussed with senior telecommunications consultant on the case 01/02: Patient remains in intensive care unit but has been waiting for bed since the to the cardiac stepdown unit. She is using incentive spirometry at 750 ML's. Patient is not eating very much but is taking Glucerna. She is complaining of a sore throat. Medication started for thrush. We'll plan to transition IV Lasix to oral 80 mg twice daily. PT and OT added. Patient is complaining of right hand swelling which appears to be from IV. No signs of phlebitis. She has been afebrile, pulse ox 95% on 3 L, pulse running in the 50s , blood pressure 146/55. Review Of Systems: Constitutional: No fever, no chills, no night sweats. No weight change. Reports weakness, fatigue or lethargy. Reports daytime sleepiness. EENT: No headache. No blurred vision or double vision, no loss of vision. No loss of Hearing, no ringing in the ears, no dizziness. No nasal drainage or congestion. No epistaxis. Reports sore throat. Lungs: Reports shortness of breath, reports cough, no sputum production. Reports wheezing. Reports respiratory distress. Cardiovascular: No chest pain, no lower extremity edema. No palpitations. No paroxysmal nocturnal dyspnea. No orthopnea. No lightheadedness or dizziness. No syncopal episodes. Abdominal: No abdominal pain. No nausea, vomiting. No diarrhea. No constipation. No bloody or tarry stools. Reports loss of appetite. Genitourinary: No dysuria, increased frequency, urgency. No urinary retention. Musculoskeletal: No myalgias. No muscle weakness, no gait dysfunction, no frequent falls. No back pain. No neck pain. Integumentary: No wounds, no lesions. No rash or pruritus. No unusual bruising. No change in hair or nails. Neurologic: No aphasia. No facial droop. No change in mentation. No head injury. No headache. No paralysis. No paresthesia. Psychiatric: No depression. No anxiety. No mood swings. Endocrine: No abnormal blood sugars. No weight change. No excessive sweating or thirst. No cold intolerance. No weight change. Objective - Vital Signs Vital signs: Vital Signs Temp 97.7 F 01/02/19 04:00 Pulse 51 L 01/02/19 04:00 Resp 17 01/02/19 04:00 BP 145/54 01/02/19 04:00 Pulse Ox 94 L 01/02/19 04:00 Intake & Output 01/01/19 01/02/19 01/02/19 18:59 06:59 18:59 Intake Total 200 Output Total 690 975 Balance -490 -975 Weight 75.5 kg Intake: Oral 200 Output: Urine 690 975 Other: Voiding Method Indwelling Catheter Indwelling Catheter # Bowel Movements 1 - Exam General appearance: cooperative, no acute distress - EENT Eyes: anicteric sclerae, EOMI, PERRLA, poor dentition, normal appearance ENT: NA/AT, normal oropharynx - Neck Neck: normal ROM - Respiratory Respiratory: bilateral: diminished, negative: dullness, rales, rhonchi - Cardiovascular Rhythm: regular Heart sounds: normal: S1, S2 Abnormal Heart Sounds: no systolic murmur, no diastolic murmur, no rub, no S3 Gallop, no S4 Gallop, no click, no other - Gastrointestinal General gastrointestinal: normal bowel sounds, soft - Integumentary Integumentary: normal, normal turgor - Neurologic Neurologic: CNII-XII intact - Musculoskeletal Musculoskeletal: gait normal, strength equal bilaterally - Psychiatric Psychiatric: A&O x's 3, appropriate affect, intact judgment & insight - Labs CBC & Chem 7: 01/02/19 04:42 01/02/19 04:42 Labs: Abnormal Lab Results - Last 24 Hours (Table) 01/01/19 01/01/19 01/01/19 Range/Units 11:45 17:05 20:36 RBC (3.80-5.40) m/uL Sodium (137-145) mmol/L BUN (7-17) mg/dL Glucose (74-99) mg/dL POC Glucose (mg/dL) 225 H 189 H 165 H (75-99) mg/dL 01/02/19 01/02/19 01/02/19 Range/Units 04:42 04:42 06:38 RBC 3.58 L (3.80-5.40) m/uL Sodium 135 L (137-145) mmol/L BUN 45 H (7-17) mg/dL Glucose 137 H (74-99) mg/dL POC Glucose (mg/dL) 130 H (75-99) mg/dL Microbiology - Last 24 Hours (Table) 12/30/18 14:28 Gram Stain - Preliminary Pleural Fluid Body Fluid Culture - Preliminary 12/28/18 10:21 Blood Culture - Preliminary Blood No Growth after 96 hours Assessment and Plan Plan: 1. Acute hypoxic and hypercapnic respiratory failure secondary to acute on chronic diastolic heart failure, bilateral pleural effusions with lactic acidosis. Continue Lasix transitioned to oral, cardiology and pulmonary medicine consult appreciated. Status post bilateral thoracentesis. 2. Recent Lower GI bleed likely diverticular bleed however diverticulitis or neoplasm cannot be entirely ruled out. last colonoscopy was about 10 years ago, last EGD was done in 2018 and that showed mild gastritis with small hiatal hernia, continue patient on Protonix 40 mg IV push every 12 hours. Plavix has been formally discontinued by cardiology and patient is been resumed on baby aspirin. No intervention during the last admission December 20, 2018 2. CAD post-PCI of the LAD. Continue aspirin and discontinue Plavix, continue patient on metoprolol 50 mg orally twice every day Lipitor 40 mg orally once every day, Imdur 60 mg orally once every day, Ranexa 1000 g orally twice every day. 3. 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 Continue lisinopril increased to 40 mg orally once every day, continue metoprolol 50 mg orally twice every day. 4. Hyperlipidemia. Continue Lipitor 40 mg orally once every day. 5. Vascular dementia. Continue Aricept 5 mg orally once every day. 6. Osteoarthritis. Stable. 7. Generalized anxiety disorder and recurrent depression. Continue Lexapro 10 mg orally once every day. 8. Diabetes mellitus type 2. Metformin discontinued. Continue Levemir and NovoLog scale. 9. DVT prophylaxis. Bilateral knee-high OLE Chuy kapadiax. 10. GI prophylaxis. Continue Protonix 40 mg IV push. 11. Endometrial thickening, also with her at elderly age to be investigated as an outpatient, to include endometrial biopsy, endometrial stripe 2.1 cm past SPRIGGER appointment 12. 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 13. Thrush. Clotrimazole started. CODE STATUS: Full code. Discharge plan: To be determined. PT and OT added Impression and plan of care have been directed as dictated by the signing physician. Donita Padron nurse practitioner acting as scribe for signing physician.
[2019-01-02] MEDS: FUROSEMIDE 80 MG TAB PO SCH (17:05)
[2019-01-02 17:14] LABS: Glucose,Whole Blood 145 mg/dL (75-99)
[2019-01-02 20:46] LABS: Glucose,Whole Blood 198 mg/dL (75-99)
[2019-01-02] MEDS: HYDROCORTISONE SUPPOSITORY 25 MG SUPP RECTAL SCH (21:35)
[2019-01-02] MEDS: INSULIN DETEMIR (LEVEMIR) 100 UNIT/ML SYR SQ SCH (21:38)
[2019-01-03] MEDS: hydrALAZINE HCL 50 MG TAB PO SCH ×4 (00:37→21:58)
[2019-01-03] MEDS: CLOTRIMAZOLE TROCHE 10 MG TROCHE MUCOUS MEM SCH ×5 (00:42→21:54)
[2019-01-03 05:13] LABS: Basophils % (A) 1 %; Eosinophils # (A) 0.3 k/uL (0-0.7); Eosinophils % (A) 5 %; HCT 37.1 % (34.0-46.0); HGB 11.9 gm/dL (11.4-16.0); Lymphocytes # (A) 1.8 k/uL (1.0-4.8); Lymphocytes % (A) 31 %; MCH 31.6 pg (25.0-35.0); MCV 98.8 fL (80.0-100.0); Mean Platelet Volume 6.3; Monocytes # (A) 0.3 k/uL (0-1.0); Monocytes % (A) 6 %; Neutrophils # (A) 3.1 k/uL (1.3-7.7); Neutrophils % (A) 55 %; Platelet Count 266 k/uL (150-450); RBC 3.76 m/uL (3.80-5.40); RDW 13.5 % (11.5-15.5); WBC 5.6 k/uL (3.8-10.6)
[2019-01-03 05:29] LABS: Calcium 8.3 mg/dL (8.4-10.2); Magnesium 1.9 mg/dL (1.6-2.3); Phosphorus 3.2 mg/dL (2.5-4.5); Potassium 5.1 mmol/L (3.5-5.1)
[2019-01-03 06:54] LABS: Glucose,Whole Blood 155 mg/dL (75-99)
[2019-01-03] MEDS: INSULIN ASPART (NovoLOG) 100 UNIT/ML VIAL SQ SCH ×4 (06:54→21:56)
--- NOTE | 2019-01-03 07:47 | CDI ---
Documentation Clarification Form Date: 01/02/2019 9:52:00 AM From: Nano Elias CCS, CCDS Admit Date: 12/28/2018 11:37:00 AM Patient Name: Tracy Mcclain Visit Number: [id number] Discharge Date: ATTENTION: The Clinical Documentation Specialists (CDI) and [facility] Coding Staff appreciate your assistance in clarifying documentation. Please respond to the clarification below the line at the bottom and electronically sign. The CDI & [facility] Coding staff will review the response and follow-up if needed. Please note: Queries are made part of the Legal Health Record. If you have any questions, please contact the author of this message via ITS. Dr. Gareth Michaud: Patient was admitted with SOB, diagnosed with Acute hypercapnic & hypoxemic respiratory failure secondary to acute exacerbation of CHF with diastolic dysfunction. *Per the Cardiology consult & subsequent progress notes: CKD is documented. Per the Pulmonary consult & subsequent progress notes: Cardiorenal syndrome is documented with no specificity with acute kidney injury. History/Risk Factors: Diastolic CHF, Hypertension, Hypertensive cardiovascular disease, CAD w/prior stent. Clinical Indicators: LAB Values: BUN: 32 - 54 - 45; Creatinine: 1.21 - 1.80 - (0.99); GFR: 41 - 32 - 52 Patients Baseline BUN/CR/GFR: unknown or not documented, nephrology is not consulted. Treatment: IV Lasix, IV Heparin, IV MagSulfate *In order to capture the severity of condition, please clarify if the condition signifies: Acute Kidney Injury with or without CKD If CKD, please specify stage if possible: CKD Stage 1 (GFR > 90) CKD Stage 2 (GFR 60-89) CKD Stage 3 (GFR 30-59) CKD Stage 4 (GFR 15-29) CKD Stage 5 (GFR <15) Other, please specify Unable to determine (Last Revision: February 2018) MTDD
--- NOTE | 2019-01-03 09:09 | XR ---
EXAMINATION TYPE: XR chest 1V portable DATE OF EXAM: 01/03/2019 COMPARISON: 01/02/2019 HISTORY: Shortness of breath TECHNIQUE: Single frontal view of the chest is obtained. FINDINGS: The heart is mildly enlarged. Mild Hyperinflation. Continued interstitial opacities. Stabl e aeration at the lung bases. Opacity is more focal at the left midlung. Postsurgical change overlyin g cervical spine. Bilateral consolidation is stable. Arthropathy of the shoulders. IMPRESSION: Bilateral consolidation and pleural effusion correlate for pneumonia versus CHF. Finding s are stable.
[2019-01-03] MEDS: METOPROLOL TARTRATE 50 MG TAB PO SCH ×2 (09:32→21:57)
[2019-01-03] MEDS: ASPIRIN 81 MG PO SCH (09:32)
[2019-01-03] MEDS: SPIRONOLACTONE 25 MG TAB PO SCH (09:32)
[2019-01-03] MEDS: ISOSORBIDE MONONITRATE ER 30 MG TAB.ER.24H PO SCH (09:32)
[2019-01-03] MEDS: PANTOPRAZOLE 40 MG TABLET PO SCH (09:32)
[2019-01-03] MEDS: LISINOPRIL 20 MG TAB PO SCH (09:32)
[2019-01-03] MEDS: POTASSIUM CHLORIDE ER 10 MEQ TAB.ER.PRT PO SCH ×2 (09:33→21:46)
[2019-01-03] MEDS: amLODIPine 10 MG TAB PO SCH (09:33)
[2019-01-03] MEDS: ATORVASTATIN 40 MG TAB PO SCH (09:33)
[2019-01-03] MEDS: ESCITALOPRAM 10 MG TAB PO SCH (09:33)
--- NOTE | 2019-01-03 09:46 | P.PN ---
Subjective Progress Note Date: 01/03/19 Principal diagnosis: Acute hypoxemic and hypercapnic respiratory failure secondary to acute exacerbation of congestive heart failure with diastolic dysfunction This 88-year-old white female patient of Dr. Sales with past medical history of hypertension, hyperlipidemia, type 2 diabetes, previous myocardial infarction with stenting of the LAD in November 2017, recent episode of GI bleeding. Patient is a former smoker. She was seen by GI service, with recommendation for conservative management, no plans for endoscopic studies. Patient was stabilized, discharged home in stable condition on 12/25/2018. She came back to the emergency department on 12/28/2018 with complaints of increasing shortness of breath, lower extremity edema. Chest x-ray showed pleural effusions, trace bibasilar density. She denied any fever or chills. Denied any chest pain. Blood work showed no leukocytosis, with white blood cell count of 8.5, hemoglobin 13.4, INR is 1.2, d-dimer of 1.36, serum sodium was 135, potassium is 4.1, chloride was 96, B1 is 32 creatinine is 1.2, plasma lactic acid was elevated to 2.5, troponin was elevated at 1.530, proBNP was 20,700. Patient was in significant rest or distress on admission, blood gas showed pO2 of 87, pCO2 56, and pH of 7.29. EKG showed sinus bradycardia, with ST and T- wave depression in leads 2, V5 and V6. Patient was placed on BiPAP support, patient was started on IV diuretics. We were asked to see this patient in consultation for shortness of breath. On 12/30/2018 patient seen in follow-up on selective care unit. She was given a trial of high flow nasal cannula, however she was descending, and was quite tachypneic and dyspneic. She was placed on BiPAP with pressures of 12/6 and FiO2 of 60%. Patient is still quite dyspneic, she is anxious, her sats remained marginal, about 86-90% on FiO2 of 60%, BiPAP settings were increased to 12/8 and FiO2 of 80%. Patient was given a dose of oral Xanax, repeat chest x -ray was obtained which showed internal improvements in aeration in volume status. Ultrasound of the chest showed a 10.2 cm pocket on the right, and 9.3 cm pocket on the left. Patient remains afebrile, his lab work has been reviewed , and showed a white blood cell count of 7.4, hemoglobin of 11.6, serum sodium is 135, potassium is 4.0, chloride is 97, renal profile is relatively stable with BUN of 53, creatinine of 1.8. Patient continues on IV diuretics with Lasix of 40 mg every 12 hours, and the diuresis has been somewhat suboptimal. In view of patient's increased work of breathing, worsening hypoxemic respiratory failure patient was transferred to the intensive care unit, we repeated a chest ultrasound at the bedside, and proceeded with left-sided thoracentesis in view of evidence of a large left and right pleural effusions. 850 mL of pleural fluid was removed, patient tolerated procedure very well. Daughter is at the bedside assisting. Postprocedure chest x-ray showed no evident complications status post thoracentesis. She is is more comfortable, remains on BiPAP, we may try to give her trial of nasal cannula later on. Vital signs are stable. FiO2 was brought down to 60%, her pulse ox is 94% right now. On 01/02/2019 patient seen in follow-up in the intensive care unit. She is resting comfortably in bed, currently on 4 L per nasal cannula, did not require IPAP support last night, her pulse ox is 94-97%, afebrile, hemodynamically stable, sinus mechanism, with a rate of 51 BPM. Complaints of shortness of breath or chest pain. Today's chest x-ray has been reviewed with Dr. Guidry and showed bilateral pleural effusions, left greater than the right, with adjacent atelectasis, and interstitial opacities, patient is status post left-sided thoracentesis on 12/30/2018 would removal of 850 mL of pleural fluid. An right- sided thoracentesis on 12/31/2018 would removal of 1300 mL of pleural fluid. Pleural fluid analysis revealed transudative fluid. Patient continues with IV diuretics, currently at 40 mg every 12 hours. In -1465 ML fluid balance. Volume status is improving. Breathing easier, lung sounds are positive for minimal crackles at the bases, his labs have been reviewed, and showed a white blood cell count of 4.9, hemoglobin of 11.6, sodium is 135, there is any fluctuance within normal limits, BUN is 45 and creatinine is 0.99. On on 01/03/2019 patient seen in follow-up in the intensive care unit, she is resting comfortably in bed, in no acute distress, currently on 3 L per nasal cannula with her pulse ox is 95%, afebrile, hemodynamically stable, no complaint of difficulty breathing, no chest pain. Today's chest x-ray has been reviewed by Dr. Gudiry and showed bilateral pleural effusions and atelectasis. IV diuretics have been transitioned to oral Lasix currently at 80 mg twice a day , and maintains a negative fluid balance, -851 mL over the last 24 hours. Today 's lab work has been reviewed, and showed a white blood cell count of 5.6, hemoglobin is 11.9, sodium is 135, the rest of the electrolytes were within normal limits, B1 is 36 and creatinine is 0.83. Lung sounds are clear, with diminished breath sounds and limited rales at the bases. Patient did get up out of bed yesterday, set up in the chair, tolerated activity well. No acute events overnight, patient is stable to transfer out of the intensive care unit today Objective - Vital Signs Vital signs: Vital Signs Temp 97.8 F 01/03/19 04:00 Pulse 55 L 01/03/19 04:00 Resp 14 01/03/19 04:00 BP 148/56 01/03/19 04:00 Pulse Ox 95 01/03/19 04:00 Intake & Output 01/02/19 01/03/19 01/03/19 18:59 06:59 18:59 Intake Total 820 Output Total 671 1000 Balance 149 -1000 Weight 75.5 kg 75 kg Intake: Intake, IV Titration 100 Amount Magnesium Sulfate-D5w Pmx 100 1 gm In Dextrose/Water 1 100ml.bag @ 100 mls/hr IVPB Q1H [facility] Rx#: [id number] Oral 720 Output: Urine 670 1000 Stool 1 Other: Voiding Method Indwelling Catheter Indwelling Catheter - Exam GENERAL EXAM: Alert, 88-year-old man 3 L per nasal cannula, with a sat of 94-97 %, resting comfortably in bed, no use of accessory muscles of breathing, appears comfortable. HEAD: Normocephalic/atraumatic. EYES: Normal reaction of pupils, equal size. Conjunctiva pink, sclera white. NOSE: Clear with pink turbinates. THROAT: No erythema or exudates. NECK: No masses, no JVD, no thyroid enlargement, no adenopathy. CHEST: No chest wall deformity. Symmetrical expansion. LUNGS: Equal air entry with minimal bibasilar crackles. CVS: Regular rate and rhythm, normal S1 and S2, no gallops, no murmurs, no rubs ABDOMEN: Soft, nontender. No hepatosplenomegaly, normal bowel sounds, no guarding or rigidity. EXTREMITIES: No clubbing, no edema, no cyanosis, 2+ pulses and upper and lower extremities. MUSCULOSKELETAL: Muscle strength and tone normal. SPINE: No scoliosis or deformity SKIN: No rashes CENTRAL NERVOUS SYSTEM: Alert and oriented -3. No focal deficits, tone is normal in all 4 extremities. PSYCHIATRIC: Alert and oriented -3. Appropriate affect. Intact judgment and insight. - Labs CBC & Chem 7: 01/03/19 04:40 01/03/19 04:40 Labs: Abnormal Lab Results - Last 24 Hours (Table) 01/02/19 01/02/19 01/02/19 Range/Units 12:04 17:02 20:34 RBC (3.80-5.40) m/uL Sodium (137-145) mmol/L BUN (7-17) mg/dL Glucose (74-99) mg/dL POC Glucose (mg/dL) 232 H 145 H 198 H (75-99) mg/dL Calcium (8.4-10.2) mg/dL 01/03/19 01/03/19 01/03/19 Range/Units 04:40 04:40 06:43 RBC 3.76 L (3.80-5.40) m/uL Sodium 135 L (137-145) mmol/L BUN 36 H (7-17) mg/dL Glucose 161 H (74-99) mg/dL POC Glucose (mg/dL) 155 H (75-99) mg/dL Calcium 8.3 L (8.4-10.2) mg/dL Microbiology - Last 24 Hours (Table) 12/30/18 14:28 Gram Stain - Preliminary Pleural Fluid Body Fluid Culture - Preliminary 12/28/18 10:21 Blood Culture - Preliminary Blood No Growth after 120 hours Assessment and Plan Plan: Assessment: #1. Acute hypoxemic respiratory failure secondary to acute exacerbation of congestive heart failure with diastolic dysfunction #2. Acute dyspnea related to the above, chest x-ray showed bibasilar pleural effusions, status post left-sided thoracentesis with removal of 850 mL of pleural fluid on 12/30/2018, and right-sided thoracentesis with removal of 1300 mL of pleural fluid, pleural fluid analysis showed transudative fluid, cytology is pending. Pleural fluid cultures are negative thus far. #3. Lactic acidosis likely related to cardiorenal syndrome, #4. Elevated d-dimer, nonspecific #5. Acute kidney injury, improved #6. Elevated troponin #7. Recent hospitalization for lower GI bleeding, patient presented with bright red per rectum, was managed conservatively per GI recommendations, did not require blood transfusions #8. History of coronary artery disease with recent stenting in November 2017, she underwent stenting of her LAD #9. ABGs mellitus type II #10. Hypertension, hyperlipidemia Plan: Continue with oral diuretics, continue weaning FiO2, patient is doing well, no acute events overnight, she is maintaining negative fluid balance, oxygenating well on 3 L per nasal cannula, which should be able to further wean FiO2. No complaints of difficulty breathing or chest pain, today's chest x-ray has been reviewed, and showed small bilateral pleural effusions with adjacent atelectasis , pleural fluid cultures remain negative thus far, blood cultures are negative, pleural fluid analysis showed a transudate of fluid. No fever or chills, no leukocytosis. Increase activity as tolerated, will transfer the patient to general medical floor. I performed a history & physical examination of the patient and discussed their management with my nurse practitioner, Earline Dumas. I reviewed the nurse practitioner's note and agree with the documented findings and plan of care. Lung sounds are positive for diminished breath sounds. The findings and the impression was discussed with the patient. I attest to the documentation by the nurse practitioner. Time with Patient: Less than 30
[2019-01-03] MEDS: ENOXAPARIN 80 MG/0.8 ML SYRINGE SQ SCH ×2 (09:47→21:53)
[2019-01-03] MEDS: FUROSEMIDE 80 MG TAB PO SCH ×2 (09:47→17:28)
[2019-01-03 12:20] LABS: Glucose,Whole Blood 213 mg/dL (75-99)
--- NOTE | 2019-01-03 12:38 | P.PN ---
Subjective Progress Note Date: 01/03/19 This is a 88-year-old white female patient of my clinic patient, with past medical history of hypertension, hyperlipidemia, type 2 diabetes, previous episode of myocardial infarction with stenting of the LAD in November 2017. Patient is a former smoker. Patient is on a combination of aspirin and Plavix for antiplatelet therapy. Patient was brought in by her daughter to the hospital on December 20, 2018 for evaluation of bleeding either vaginal or GI source, during that last admission patient did not require any colonoscopy, however she does have endometrial thickening noted on transvaginal ultrasound 2.1 cm, patient also has episode of hypotension, required fluid boluses, and the titration of her IV diuretics. She also has intermittent dysphagic to solids for which pressed by esophagus was noted, with severe as original dysmotility and delayed esophageal emptying, soft diet was recommended with aspiration precautions, she also had hypoxemia for which home O2 was arranged prior to her discharge on 12/25/2018.. Patient has been discontinued on Plavix secondary to the GI bleed, aspirin has been resumed, hemoglobin on discharge was approximately 11.8, she also has orthostatic vital signs during the last admission Patient was discharged to home with home care and home O2, patient return back to the emergency room secondary to increasing dyspnea, dyspnea on exertion, d- dimer was elevated 1.6, also BNP is also elevated, patient shows some symptoms also off acute congestive heart failure exacerbation, she has slightly elevated troponins, for which cardiology has been consulted for this during this admission. We are going to obtain VQ scan in view off the elevated d-dimer, along with Dopplers of the lower extremity, IV Lasix provided 12/29: Patient continues to have severe respiratory distress on BiPAP with FiO2 of 50%, she has been afebrile, heart rate running in the 60s, blood pressure 159 /70. Troponins have been elevated and cardiology has ruled out acute coronary syndrome. Bilateral lower extremity Dopplers negative for DVT. Patient is unable to undergo VQ scan due to positioning and oxygen need. Lovenox started. Consult with pulmonary medicine has been added. C. diff stool toxin came back negative. 12/30: Patient remains on high flow nasal cannula with respiratory distress. This morning, pulse ox was 86% and was transitioned to BiPAP 60% FiO2. Patient was later transferred to the intensive care unit due to impending respiratory failure. She has had ultrasound of the chest and marked for thoracentesis and plan is for right sided today. She has been afebrile, blood pressure stable, BUN 53 and creatinine 1.8, white count is normal at 7.4 and hemoglobin 11.6. Blood sugars elevated and metformin will be discontinued as patient is not taking any oral medications. Levemir 5 units and NovoLog scale added. Dr. Arellano is following 12/31: Patient was seen second thoracentesis this morning with 1300 clear yellow fluid out of the right lung. Patient feels much improved and have oxygen demand has gone down from 11 L to 4 L. Daughter at the bedside who had multiple concerns and questions. Plan discussed with patient's and her daughter at the bedside and later with financial operations consultant on the case that he would like to continue with diuretics that was increased to 40 mg IV push every 8 hours continue with Sunshine catheter for monitoring close urine output and monitor her weight on daily basis, have physical lytic patient of therapy evaluated the patient and dietitian as well monitor her glucose closely and encourage oral intake. 01/01: Patient is improving every day and seems to be more comfortable. Patient is denying chest pain, nausea vomiting or abdominal pain. We'll decrease Lasix dose to 40 mg IV push twice daily, remove Sunshine catheter and do voiding trials, transfer patient to selective and monitor her vital signs closely continue monitoring her urine output. Discharge planning based on clinical progress plan discussed with financial operations consultant on the case 01/02: Patient remains in intensive care unit but has been waiting for bed since the to the cardiac stepdown unit. She is using incentive spirometry at 750 ML's. Patient is not eating very much but is taking Glucerna. She is complaining of a sore throat. Medication started for thrush. We'll plan to transition IV Lasix to oral 80 mg twice daily. PT and OT added. Patient is complaining of right hand swelling which appears to be from IV. No signs of phlebitis. She has been afebrile, pulse ox 95% on 3 L, pulse running in the 50s , blood pressure 146/55. 01/03: Patient remains in intensive care unit and waning for cardiac stepdown floor. She has been hemodynamically stable. We transitioned her to oral Lasix yesterday at 80 mg twice daily. Pulse ox is 95% on 3 L nasal cannula, blood pressure 151/53, heart rate running in the 50s and 60s. Patient has been afebrile. Blood sugars are running high and metformin will be resumed as renal function has normalized. Review Of Systems: Constitutional: No fever, no chills, no night sweats. No weight change. Reports weakness, fatigue or denies lethargy. Reports daytime sleepiness. EENT: No headache. No blurred vision or double vision, no loss of vision. No loss of Hearing, no ringing in the ears, no dizziness. No nasal drainage or congestion. No epistaxis. Reports sore throat. Lungs: Reports shortness of breath, reports cough, no sputum production. Reports wheezing. Reports respiratory distress. Cardiovascular: No chest pain, no lower extremity edema. No palpitations. No paroxysmal nocturnal dyspnea. No orthopnea. No lightheadedness or dizziness. No syncopal episodes. Abdominal: No abdominal pain. No nausea, vomiting. No diarrhea. No constipation. No bloody or tarry stools. Reports loss of appetite. Genitourinary: No dysuria, increased frequency, urgency. No urinary retention. Musculoskeletal: No myalgias. No muscle weakness, no gait dysfunction, no frequent falls. No back pain. No neck pain. Integumentary: No wounds, no lesions. No rash or pruritus. No unusual bruising. No change in hair or nails. Neurologic: No aphasia. No facial droop. No change in mentation. No head injury. No headache. No paralysis. No paresthesia. Psychiatric: No depression. No anxiety. No mood swings. Endocrine: No abnormal blood sugars. No weight change. No excessive sweating or thirst. No cold intolerance. No weight change. Objective - Vital Signs Vital signs: Vital Signs Temp 97.8 F 01/03/19 04:00 Pulse 55 L 01/03/19 04:00 Resp 14 01/03/19 04:00 BP 148/56 01/03/19 04:00 Pulse Ox 95 01/03/19 04:00 Intake & Output 01/02/19 01/03/19 01/03/19 18:59 06:59 18:59 Intake Total 820 Output Total 671 1000 Balance 149 -1000 Weight 75.5 kg 75 kg Intake: Intake, IV Titration 100 Amount Magnesium Sulfate-D5w Pmx 100 1 gm In Dextrose/Water 1 100ml.bag @ 100 mls/hr IVPB Q1H [facility] Rx#: [id number] Oral 720 Output: Urine 670 1000 Stool 1 Other: Voiding Method Indwelling Catheter Indwelling Catheter - Exam General appearance: cooperative, no acute distress, resting in recliner and ICU - EENT Eyes: anicteric sclerae, EOMI, PERRLA, poor dentition, normal appearance ENT: NA/AT, normal oropharynx - Neck Neck: normal ROM - Respiratory Respiratory: bilateral: diminished, negative: dullness, rales, rhonchi - Cardiovascular Rhythm: regular Heart sounds: normal: S1, S2 Abnormal Heart Sounds: no systolic murmur, no diastolic murmur, no rub, no S3 Gallop, no S4 Gallop, no click, no other - Gastrointestinal General gastrointestinal: normal bowel sounds, soft - Integumentary Integumentary: normal, normal turgor - Neurologic Neurologic: CNII-XII intact - Musculoskeletal Musculoskeletal: gait normal, strength equal bilaterally - Psychiatric Psychiatric: A&O x's 3, appropriate affect, intact judgment & insight - Labs CBC & Chem 7: 01/03/19 04:40 01/03/19 04:40 Labs: Abnormal Lab Results - Last 24 Hours (Table) 01/02/19 01/02/19 01/02/19 Range/Units 12:04 17:02 20:34 RBC (3.80-5.40) m/uL Sodium (137-145) mmol/L BUN (7-17) mg/dL Glucose (74-99) mg/dL POC Glucose (mg/dL) 232 H 145 H 198 H (75-99) mg/dL Calcium (8.4-10.2) mg/dL 01/03/19 01/03/19 01/03/19 Range/Units 04:40 04:40 06:43 RBC 3.76 L (3.80-5.40) m/uL Sodium 135 L (137-145) mmol/L BUN 36 H (7-17) mg/dL Glucose 161 H (74-99) mg/dL POC Glucose (mg/dL) 155 H (75-99) mg/dL Calcium 8.3 L (8.4-10.2) mg/dL Microbiology - Last 24 Hours (Table) 12/30/18 14:28 Gram Stain - Preliminary Pleural Fluid Body Fluid Culture - Preliminary 12/28/18 10:21 Blood Culture - Preliminary Blood No Growth after 120 hours Assessment and Plan Plan: 1. Acute hypoxic and hypercapnic respiratory failure secondary to acute on chronic diastolic heart failure, bilateral pleural effusions with lactic acidosis. Continue Lasix oral, cardiology and pulmonary medicine consult appreciated. Status post bilateral thoracentesis. 2. Recent Lower GI bleed likely diverticular bleed however diverticulitis or neoplasm cannot be entirely ruled out. last colonoscopy was about 10 years ago, last EGD was done in 2018 and that showed mild gastritis with small hiatal hernia, continue patient on Protonix. Plavix has been formally discontinued by cardiology and patient is been resumed on baby aspirin. No intervention during the last admission December 20, 2018 2. CAD post-PCI of the LAD. Continue aspirin and discontinue Plavix, continue patient on metoprolol 50 mg orally twice every day Lipitor 40 mg orally once every day, Imdur 60 mg orally once every day, Ranexa 1000 g orally twice every day. 3. 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 Continue lisinopril increased to 40 mg orally once every day, continue metoprolol 50 mg orally twice every day. 4. Hyperlipidemia. Continue Lipitor 40 mg orally once every day. 5. Vascular dementia. Continue Aricept 5 mg orally once every day. 6. Osteoarthritis. Stable. 7. Generalized anxiety disorder and recurrent depression. Continue Lexapro 10 mg orally once every day. 8. Diabetes mellitus type 2. Metformin discontinued. Continue Levemir and NovoLog scale. 9. DVT prophylaxis. Bilateral knee-high OLE hose, Lovenox. 10. GI prophylaxis. Continue Protonix 40 mg IV push. 11. Endometrial thickening, also with her at elderly age to be investigated as an outpatient, to include endometrial biopsy, endometrial stripe 2.1 cm past [employer] appointment 12. 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 13. Thrush. Clotrimazole started. CODE STATUS: Full code. Discharge plan: Home with homecare or subacute rehab. PT and OT added Impression and plan of care have been directed as dictated by the signing physician. Donita Padron nurse practitioner acting as scribe for signing physician.
[2019-01-03 17:21] LABS: Glucose,Whole Blood 178 mg/dL (75-99)
[2019-01-03] MEDS: metFORMIN 500 MG TAB PO SCH (18:44)
[2019-01-03 20:56] LABS: Glucose,Whole Blood 215 mg/dL (75-99)
[2019-01-03] MEDS: HYDROCORTISONE SUPPOSITORY 25 MG SUPP RECTAL SCH (21:54)
[2019-01-03] MEDS: INSULIN DETEMIR (LEVEMIR) 100 UNIT/ML SYR SQ SCH (21:54)
[2019-01-04] MEDS: CLOTRIMAZOLE TROCHE 10 MG TROCHE MUCOUS MEM SCH ×5 (00:24→21:39)
[2019-01-04] MEDS: metFORMIN 500 MG TAB PO SCH ×3 (02:32→16:57)
[2019-01-04] MEDS: RANOLAZINE 500 MG TAB.ER.12H PO SCH (02:32)
[2019-01-04] MEDS: FUROSEMIDE 10 MG/ML 4 ML VIAL IV SCH (02:33)
[2019-01-04 07:33] LABS: Glucose,Whole Blood 121 mg/dL (75-99)
[2019-01-04] MEDS: INSULIN ASPART (NovoLOG) 100 UNIT/ML VIAL SQ SCH ×4 (08:32→21:42)
[2019-01-04] MEDS: FUROSEMIDE 80 MG TAB PO SCH ×2 (08:33→16:56)
[2019-01-04] MEDS: ESCITALOPRAM 10 MG TAB PO SCH (08:33)
[2019-01-04] MEDS: ENOXAPARIN 80 MG/0.8 ML SYRINGE SQ SCH ×2 (08:33→21:40)
[2019-01-04] MEDS: ISOSORBIDE MONONITRATE ER 30 MG TAB.ER.24H PO SCH (08:41)
[2019-01-04] MEDS: METOPROLOL TARTRATE 50 MG TAB PO SCH ×2 (08:41→21:47)
[2019-01-04] MEDS: ASPIRIN 81 MG PO SCH (08:42)
[2019-01-04] MEDS: LISINOPRIL 20 MG TAB PO SCH (08:42)
[2019-01-04] MEDS: amLODIPine 10 MG TAB PO SCH (08:42)
[2019-01-04] MEDS: ATORVASTATIN 40 MG TAB PO SCH (08:42)
[2019-01-04] MEDS: SPIRONOLACTONE 25 MG TAB PO SCH (08:42)
[2019-01-04] MEDS: POTASSIUM CHLORIDE ER 10 MEQ TAB.ER.PRT PO SCH ×2 (08:42→21:41)
[2019-01-04] MEDS: hydrALAZINE HCL 50 MG TAB PO SCH ×3 (08:42→21:50)
[2019-01-04] MEDS: PANTOPRAZOLE 40 MG TABLET PO SCH (08:42)
[2019-01-04 11:57] LABS: Glucose,Whole Blood 202 mg/dL (75-99)
--- NOTE | 2019-01-04 13:11 | P.PN ---
Subjective Progress Note Date: 01/04/19 Principal diagnosis: Acute hypoxemic and hypercapnic respiratory failure secondary to an acute exacerbation of congestive heart failure with diastolic dysfunction. This 88-year-old white female patient of Dr. Sales with past medical history of hypertension, hyperlipidemia, type 2 diabetes, previous myocardial infarction with stenting of the LAD in November 2017, recent episode of GI bleeding. Patient is a former smoker. She was seen by GI service, with recommendation for conservative management, no plans for endoscopic studies. Patient was stabilized, discharged home in stable condition on 12/25/2018. She came back to the emergency department on 12/28/2018 with complaints of increasing shortness of breath, lower extremity edema. Chest x-ray showed pleural effusions, trace bibasilar density. She denied any fever or chills. Denied any chest pain. Blood work showed no leukocytosis, with white blood cell count of 8.5, hemoglobin 13.4, INR is 1.2, d-dimer of 1.36, serum sodium was 135, potassium is 4.1, chloride was 96, B1 is 32 creatinine is 1.2, plasma lactic acid was elevated to 2.5, troponin was elevated at 1.530, proBNP was 20,700. Patient was in significant rest or distress on admission, blood gas showed pO2 of 87, pCO2 56, and pH of 7.29. EKG showed sinus bradycardia, with ST and T- wave depression in leads 2, V5 and V6. Patient was placed on BiPAP support, patient was started on IV diuretics. We were asked to see this patient in consultation for shortness of breath. On 12/30/2018 patient seen in follow-up on selective care unit. She was given a trial of high flow nasal cannula, however she was descending, and was quite tachypneic and dyspneic. She was placed on BiPAP with pressures of 12/6 and FiO2 of 60%. Patient is still quite dyspneic, she is anxious, her sats remained marginal, about 86-90% on FiO2 of 60%, BiPAP settings were increased to 12/8 and FiO2 of 80%. Patient was given a dose of oral Xanax, repeat chest x -ray was obtained which showed internal improvements in aeration in volume status. Ultrasound of the chest showed a 10.2 cm pocket on the right, and 9.3 cm pocket on the left. Patient remains afebrile, his lab work has been reviewed , and showed a white blood cell count of 7.4, hemoglobin of 11.6, serum sodium is 135, potassium is 4.0, chloride is 97, renal profile is relatively stable with BUN of 53, creatinine of 1.8. Patient continues on IV diuretics with Lasix of 40 mg every 12 hours, and the diuresis has been somewhat suboptimal. In view of patient's increased work of breathing, worsening hypoxemic respiratory failure patient was transferred to the intensive care unit, we repeated a chest ultrasound at the bedside, and proceeded with left-sided thoracentesis in view of evidence of a large left and right pleural effusions. 850 mL of pleural fluid was removed, patient tolerated procedure very well. Daughter is at the bedside assisting. Postprocedure chest x-ray showed no evident complications status post thoracentesis. She is is more comfortable, remains on BiPAP, we may try to give her trial of nasal cannula later on. Vital signs are stable. FiO2 was brought down to 60%, her pulse ox is 94% right now. On 01/02/2019 patient seen in follow-up in the intensive care unit. She is resting comfortably in bed, currently on 4 L per nasal cannula, did not require IPAP support last night, her pulse ox is 94-97%, afebrile, hemodynamically stable, sinus mechanism, with a rate of 51 BPM. Complaints of shortness of breath or chest pain. Today's chest x-ray has been reviewed with Dr. Guidry and showed bilateral pleural effusions, left greater than the right, with adjacent atelectasis, and interstitial opacities, patient is status post left-sided thoracentesis on 12/30/2018 would removal of 850 mL of pleural fluid. An right- sided thoracentesis on 12/31/2018 would removal of 1300 mL of pleural fluid. Pleural fluid analysis revealed transudative fluid. Patient continues with IV diuretics, currently at 40 mg every 12 hours. In -1465 ML fluid balance. Volume status is improving. Breathing easier, lung sounds are positive for minimal crackles at the bases, his labs have been reviewed, and showed a white blood cell count of 4.9, hemoglobin of 11.6, sodium is 135, there is any fluctuance within normal limits, BUN is 45 and creatinine is 0.99. On on 01/03/2019 patient seen in follow-up in the intensive care unit, she is resting comfortably in bed, in no acute distress, currently on 3 L per nasal cannula with her pulse ox is 95%, afebrile, hemodynamically stable, no complaint of difficulty breathing, no chest pain. Today's chest x-ray has been reviewed by Dr. Guidry and showed bilateral pleural effusions and atelectasis. IV diuretics have been transitioned to oral Lasix currently at 80 mg twice a day , and maintains a negative fluid balance, -851 mL over the last 24 hours. Today 's lab work has been reviewed, and showed a white blood cell count of 5.6, hemoglobin is 11.9, sodium is 135, the rest of the electrolytes were within normal limits, B1 is 36 and creatinine is 0.83. Lung sounds are clear, with diminished breath sounds and limited rales at the bases. Patient did get up out of bed yesterday, set up in the chair, tolerated activity well. No acute events overnight, patient is stable to transfer out of the intensive care unit today. Patient is seen today 01/04/2018 in follow-up on the regular medical floor. She is in no acute distress. Currently maintaining good O2 saturations in the mid 90s on 3 L/m per nasal cannula. She's been afebrile. Hemodynamically stable. Pleural fluid cultures reveal no growth. Blood culture reveals no growth. She remains on oral diuretics. Bleeding per bedside commode. She is down 2 kg today. Lungs sounds clear anteriorly, diminished in the posterior bases Objective - Vital Signs Vital signs: Vital Signs Temp 98.8 F 01/04/19 07:00 Pulse 65 01/04/19 07:00 Resp 18 01/04/19 07:00 BP 171/63 01/04/19 07:00 Pulse Ox 95 01/04/19 07:00 Intake & Output 01/03/19 01/04/19 01/04/19 18:59 06:59 18:59 Intake Total 720 Output Total 1100 165 Balance -380 -165 Weight 73 kg Intake: Oral 720 Output: Urine 1100 165 Other: Voiding Method Indwelling Catheter Bedside Commode Bedside Commode # Voids 1 # Bowel Movements 1 1 - Exam GENERAL EXAM: Alert, 88-year-old female on 3 L per nasal cannula, with a sat of 94-97%, resting comfortably in bed, no use of accessory muscles of breathing , appears comfortable. HEAD: Normocephalic/atraumatic. EYES: Normal reaction of pupils, equal size. Conjunctiva pink, sclera white. NOSE: Clear with pink turbinates. THROAT: No erythema or exudates. NECK: No masses, no JVD, no thyroid enlargement, no adenopathy. CHEST: No chest wall deformity. Symmetrical expansion. LUNGS: Equal air entry with minimal bibasilar crackles. CVS: Regular rate and rhythm, normal S1 and S2, no gallops, no murmurs, no rubs ABDOMEN: Soft, nontender. No hepatosplenomegaly, normal bowel sounds, no guarding or rigidity. EXTREMITIES: No clubbing, no edema, no cyanosis, 2+ pulses and upper and lower extremities. MUSCULOSKELETAL: Muscle strength and tone normal. SPINE: No scoliosis or deformity SKIN: No rashes CENTRAL NERVOUS SYSTEM: Alert and oriented -3. No focal deficits, tone is normal in all 4 extremities. PSYCHIATRIC: Alert and oriented -3. Appropriate affect. Intact judgment and insight. - Labs CBC & Chem 7: 01/03/19 04:40 01/03/19 04:40 Labs: Abnormal Lab Results - Last 24 Hours (Table) 01/03/19 01/03/19 01/04/19 Range/Units 17:09 20:45 07:18 POC Glucose (mg/dL) 178 H 215 H 121 H (75-99) mg/dL 01/04/19 Range/Units 11:49 POC Glucose (mg/dL) 202 H (75-99) mg/dL Microbiology - Last 24 Hours (Table) 12/30/18 14:28 Gram Stain - Final Pleural Fluid Body Fluid Culture - Final 12/28/18 10:21 Blood Culture - Final Blood No Growth after 144 hours Assessment and Plan Assessment: Assessment: #1. Acute hypoxemic respiratory failure secondary to acute exacerbation of congestive heart failure with diastolic dysfunction, improved. On 3 L nasal cannula. #2. Acute dyspnea related to the above, chest x-ray showed bibasilar pleural effusions, status post left-sided thoracentesis with removal of 850 mL of pleural fluid on 12/30/2018, and right-sided thoracentesis with removal of 1300 mL of pleural fluid, pleural fluid analysis showed transudative fluid, cytology is pending. Pleural fluid cultures remain negative thus far. #3. Lactic acidosis likely related to cardiorenal syndrome, #4. Elevated d-dimer, nonspecific #5. Acute kidney injury, improved #6. Elevated troponin #7. Recent hospitalization for lower GI bleeding, patient presented with bright red per rectum, was managed conservatively per GI recommendations, did not require blood transfusions #8. History of coronary artery disease with recent stenting in November 2017, she underwent stenting of her LAD #9. ABGs mellitus type II #10. Hypertension, #11. Hyperlipidemia Plan: The patient was seen and evaluated by Dr. Samano. She continues to improve daily. Fluid cultures remain no growth thus far. The plan may be for discharge tomorrow. Continue diuretics. Increase her activity as tolerated. We'll continue to follow. I, the cosigning physician, performed a history & physical examination of the patient. Lungs sounds diminished in the posterior bases.. Maintaining good O2 saturations in the 90s on 3 L/m per nasal cannula. I discussed the assessment and plan of care with my nurse practitioner, Emma Lowry. I attest to the above note as dictated by her.
--- NOTE | 2019-01-04 14:58 | P.PN ---
Subjective Progress Note Date: 01/04/19 This is a 88-year-old white female patient of my clinic patient, with past medical history of hypertension, hyperlipidemia, type 2 diabetes, previous episode of myocardial infarction with stenting of the LAD in November 2017. Patient is a former smoker. Patient is on a combination of aspirin and Plavix for antiplatelet therapy. Patient was brought in by her daughter to the hospital on December 20, 2018 for evaluation of bleeding either vaginal or GI source, during that last admission patient did not require any colonoscopy, however she does have endometrial thickening noted on transvaginal ultrasound 2.1 cm, patient also has episode of hypotension, required fluid boluses, and the titration of her IV diuretics. She also has intermittent dysphagic to solids for which pressed by esophagus was noted, with severe as original dysmotility and delayed esophageal emptying, soft diet was recommended with aspiration precautions, she also had hypoxemia for which home O2 was arranged prior to her discharge on 12/25/2018.. Patient has been discontinued on Plavix secondary to the GI bleed, aspirin has been resumed, hemoglobin on discharge was approximately 11.8, she also has orthostatic vital signs during the last admission Patient was discharged to home with home care and home O2, patient return back to the emergency room secondary to increasing dyspnea, dyspnea on exertion, d- dimer was elevated 1.6, also BNP is also elevated, patient shows some symptoms also off acute congestive heart failure exacerbation, she has slightly elevated troponins, for which cardiology has been consulted for this during this admission. We are going to obtain VQ scan in view off the elevated d-dimer, along with Dopplers of the lower extremity, IV Lasix provided 12/29: Patient continues to have severe respiratory distress on BiPAP with FiO2 of 50%, she has been afebrile, heart rate running in the 60s, blood pressure 159 /70. Troponins have been elevated and cardiology has ruled out acute coronary syndrome. Bilateral lower extremity Dopplers negative for DVT. Patient is unable to undergo VQ scan due to positioning and oxygen need. Lovenox started. Consult with pulmonary medicine has been added. C. diff stool toxin came back negative. 12/30: Patient remains on high flow nasal cannula with respiratory distress. This morning, pulse ox was 86% and was transitioned to BiPAP 60% FiO2. Patient was later transferred to the intensive care unit due to impending respiratory failure. She has had ultrasound of the chest and marked for thoracentesis and plan is for right sided today. She has been afebrile, blood pressure stable, BUN 53 and creatinine 1.8, white count is normal at 7.4 and hemoglobin 11.6. Blood sugars elevated and metformin will be discontinued as patient is not taking any oral medications. Levemir 5 units and NovoLog scale added. Dr. Arellano is following 12/31: Patient was seen second thoracentesis this morning with 1300 clear yellow fluid out of the right lung. Patient feels much improved and have oxygen demand has gone down from 11 L to 4 L. Daughter at the bedside who had multiple concerns and questions. Plan discussed with patient's and her daughter at the bedside and later with customer care consultant on the case that he would like to continue with diuretics that was increased to 40 mg IV push every 8 hours continue with Sunshine catheter for monitoring close urine output and monitor her weight on daily basis, have physical lytic patient of therapy evaluated the patient and dietitian as well monitor her glucose closely and encourage oral intake. 01/01: Patient is improving every day and seems to be more comfortable. Patient is denying chest pain, nausea vomiting or abdominal pain. We'll decrease Lasix dose to 40 mg IV push twice daily, remove Sunshine catheter and do voiding trials, transfer patient to selective and monitor her vital signs closely continue monitoring her urine output. Discharge planning based on clinical progress plan discussed with customer care consultant on the case 01/02: Patient remains in intensive care unit but has been waiting for bed since the to the cardiac stepdown unit. She is using incentive spirometry at 750 ML's. Patient is not eating very much but is taking Glucerna. She is complaining of a sore throat. Medication started for thrush. We'll plan to transition IV Lasix to oral 80 mg twice daily. PT and OT added. Patient is complaining of right hand swelling which appears to be from IV. No signs of phlebitis. She has been afebrile, pulse ox 95% on 3 L, pulse running in the 50s , blood pressure 146/55. 01/03: Patient remains in intensive care unit and waning for cardiac stepdown floor. She has been hemodynamically stable. We transitioned her to oral Lasix yesterday at 80 mg twice daily. Pulse ox is 95% on 3 L nasal cannula, blood pressure 151/53, heart rate running in the 50s and 60s. Patient has been afebrile. Blood sugars are running high and metformin will be resumed as renal function has normalized. 01/04: Patient is stating that she is feeling much better today. She is now seen on the [facility] floor. Oxygen saturation is 95-97% on 3 L nasal cannula, she's been afebrile, blood pressure 110/57, heart rate 50s and 60s. Regarding discharge plan, patient states that she is planning to return home with her daughter. We will ask case management to confirm this. Patient most likely will be ready for discharge by tomorrow. Review Of Systems: Constitutional: No fever, no chills, no night sweats. No weight change. Reports weakness, fatigue or denies lethargy. Denies daytime sleepiness. EENT: No headache. No blurred vision or double vision, no loss of vision. No loss of Hearing, no ringing in the ears, no dizziness. No nasal drainage or congestion. No epistaxis. Reports sore throat. Lungs: Denies shortness of breath, reports cough, no sputum production. Denies wheezing. Denies respiratory distress. Cardiovascular: No chest pain, no lower extremity edema. No palpitations. No paroxysmal nocturnal dyspnea. No orthopnea. No lightheadedness or dizziness. No syncopal episodes. Abdominal: No abdominal pain. No nausea, vomiting. No diarrhea. No constipation. No bloody or tarry stools. Reports loss of appetite. Genitourinary: No dysuria, increased frequency, urgency. No urinary retention. Musculoskeletal: No myalgias. No muscle weakness, no gait dysfunction, no frequent falls. No back pain. No neck pain. Integumentary: No wounds, no lesions. No rash or pruritus. No unusual bruising. No change in hair or nails. Neurologic: No aphasia. No facial droop. No change in mentation. No head injury. No headache. No paralysis. No paresthesia. Psychiatric: No depression. No anxiety. No mood swings. Endocrine: No abnormal blood sugars. No weight change. No excessive sweating or thirst. No cold intolerance. No weight change. Objective - Vital Signs Vital signs: Vital Signs Temp 98.8 F 01/04/19 07:00 Pulse 65 01/04/19 07:00 Resp 18 01/04/19 07:00 BP 171/63 01/04/19 07:00 Pulse Ox 95 01/04/19 07:00 Intake & Output 01/03/19 01/04/19 01/04/19 18:59 06:59 18:59 Intake Total 720 Output Total 1100 165 Balance -380 -165 Weight 73 kg Intake: Oral 720 Output: Urine 1100 165 Other: Voiding Method Indwelling Catheter Bedside Commode # Voids 1 # Bowel Movements 1 1 - Exam General appearance: cooperative, no acute distress, resting on edge of bed - EENT Eyes: anicteric sclerae, EOMI, PERRLA, poor dentition, normal appearance ENT: NA/AT, normal oropharynx - Neck Neck: normal ROM - Respiratory Respiratory: bilateral: diminished, negative: dullness, rales, rhonchi - Cardiovascular Rhythm: regular Heart sounds: normal: S1, S2 Abnormal Heart Sounds: no systolic murmur, no diastolic murmur, no rub, no S3 Gallop, no S4 Gallop, no click, no other - Gastrointestinal General gastrointestinal: normal bowel sounds, soft - Integumentary Integumentary: normal, normal turgor - Neurologic Neurologic: CNII-XII intact - Musculoskeletal Musculoskeletal: gait normal, strength equal bilaterally - Psychiatric Psychiatric: A&O x's 3, appropriate affect, intact judgment & insight - Labs CBC & Chem 7: 01/03/19 04:40 01/03/19 04:40 Labs: Abnormal Lab Results - Last 24 Hours (Table) 01/03/19 01/03/19 01/03/19 Range/Units 12:08 17:09 20:45 POC Glucose (mg/dL) 213 H 178 H 215 H (75-99) mg/dL 01/04/19 Range/Units 07:18 POC Glucose (mg/dL) 121 H (75-99) mg/dL Microbiology - Last 24 Hours (Table) 12/30/18 14:28 Gram Stain - Final Pleural Fluid Body Fluid Culture - Final 12/28/18 10:21 Blood Culture - Final Blood No Growth after 144 hours Assessment and Plan Plan: 1. Acute hypoxic and hypercapnic respiratory failure secondary to acute on chronic diastolic heart failure, bilateral pleural effusions with lactic acidosis. Continue Lasix oral, cardiology and pulmonary medicine consult appreciated. Status post bilateral thoracentesis. 2. Recent Lower GI bleed likely diverticular bleed however diverticulitis or neoplasm cannot be entirely ruled out. last colonoscopy was about 10 years ago, last EGD was done in 2018 and that showed mild gastritis with small hiatal hernia, continue patient on Protonix. Plavix has been formally discontinued by cardiology and patient is been resumed on baby aspirin. No intervention during the last admission December 20, 2018 2. CAD post-PCI of the LAD. Continue aspirin and discontinue Plavix, continue patient on metoprolol 50 mg orally twice every day Lipitor 40 mg orally once every day, Imdur 60 mg orally once every day, Ranexa 1000 g orally twice every day. 3. 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 Continue lisinopril increased to 40 mg orally once every day, continue metoprolol 50 mg orally twice every day. 4. Hyperlipidemia. Continue Lipitor 40 mg orally once every day. 5. Vascular dementia. Continue Aricept 5 mg orally once every day. 6. Osteoarthritis. Stable. 7. Generalized anxiety disorder and recurrent depression. Continue Lexapro 10 mg orally once every day. 8. Diabetes mellitus type 2. Metformin discontinued. Continue Levemir and NovoLog scale. 9. DVT prophylaxis. Bilateral knee-high OLE hose, Lovenox. 10. GI prophylaxis. Continue Protonix 40 mg IV push. 11. Endometrial thickening, also with her at elderly age to be investigated as an outpatient, to include endometrial biopsy, endometrial stripe 2.1 cm past [facility] appointment 12. 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 13. Thrush. Clotrimazole started. 14. Acute kidney injury with chronic kidney disease stage II. Avoid nephrotoxic agents. Monitor kidney function which is improved. CODE STATUS: Full code. Discharge plan: Home with homecare or subacute rehab. PT and OT added Impression and plan of care have been directed as dictated by the signing physician. Donita Padron nurse practitioner acting as scribe for signing physician.
[2019-01-04 17:06] LABS: Glucose,Whole Blood 146 mg/dL (75-99)
[2019-01-04 20:52] LABS: Glucose,Whole Blood 168 mg/dL (75-99)
[2019-01-04] MEDS ORDERED: INSULIN DETEMIR (LEVEMIR) 100 UNIT/ML SYR SQ SCH (21:00)
[2019-01-04] MEDS: HYDROCORTISONE SUPPOSITORY 25 MG SUPP RECTAL SCH (21:41)
[2019-01-04 21:47] VITALS: PULSE 60
[2019-01-05] MEDS: CLOTRIMAZOLE TROCHE 10 MG TROCHE MUCOUS MEM SCH ×2 (00:08→06:45)
[2019-01-05 06:20] VITALS: BP 148/79; RESP 18; TEMP 98.6
[2019-01-05 07:35] LABS: Glucose,Whole Blood 136 mg/dL (75-99)
[2019-01-05] MEDS: INSULIN ASPART (NovoLOG) 100 UNIT/ML VIAL SQ SCH (08:18)
[2019-01-05] MEDS: FUROSEMIDE 80 MG TAB PO SCH (08:18)
[2019-01-05] MEDS: hydrALAZINE HCL 50 MG TAB PO SCH (08:19)
[2019-01-05] MEDS: ISOSORBIDE MONONITRATE ER 30 MG TAB.ER.24H PO SCH (08:19)
[2019-01-05] MEDS: LISINOPRIL 20 MG TAB PO SCH (08:19)
[2019-01-05] MEDS: POTASSIUM CHLORIDE ER 10 MEQ TAB.ER.PRT PO SCH (08:19)
[2019-01-05] MEDS: ESCITALOPRAM 10 MG TAB PO SCH (08:19)
[2019-01-05] MEDS: PANTOPRAZOLE 40 MG TABLET PO SCH (08:19)
[2019-01-05] MEDS: ASPIRIN 81 MG PO SCH (08:19)
[2019-01-05] MEDS: metFORMIN 500 MG TAB PO SCH (08:19)
[2019-01-05] MEDS: amLODIPine 10 MG TAB PO SCH (08:19)
[2019-01-05] MEDS: SPIRONOLACTONE 25 MG TAB PO SCH (08:19)
[2019-01-05] MEDS: ATORVASTATIN 40 MG TAB PO SCH (08:19)
[2019-01-05] MEDS: METOPROLOL TARTRATE 50 MG TAB PO SCH (08:19)
[2019-01-05] MEDS: ENOXAPARIN 80 MG/0.8 ML SYRINGE SQ SCH (09:19)
--- NOTE | 2019-01-05 12:01 | P.DS ---
Providers Date of admission: 12/28/18 11:37 Expected date of discharge: 01/05/19 Attending physician: Yee Sales Consults: 12/28/18 11:38 Consult Physician Routine Consulting Provider: Dean Otto Consult Reason/Comments: heart failure Do you want consulting provider notified?: Yes 12/29/18 10:43 Consult Physician Routine Consulting Provider: Anabel Arellano Consult Reason/Comments: resp failure Do you want consulting provider notified?: Yes Primary care physician: Yee Sales Hospital Course: This is a 88-year-old white female patient of my clinic patient, with past medical history of hypertension, hyperlipidemia, type 2 diabetes, previous episode of myocardial infarction with stenting of the LAD in November 2017. Patient is a former smoker. Patient is on a combination of aspirin and Plavix for antiplatelet therapy. Patient was brought in by her daughter to the hospital on December 20, 2018 for evaluation of bleeding either vaginal or GI source, during that last admission patient did not require any colonoscopy, however she does have endometrial thickening noted on transvaginal ultrasound 2.1 cm, patient also has episode of hypotension, required fluid boluses, and the titration of her IV diuretics. She also has intermittent dysphagic to solids for which pressed by esophagus was noted, with severe as original dysmotility and delayed esophageal emptying, soft diet was recommended with aspiration precautions, she also had hypoxemia for which home O2 was arranged prior to her discharge on 12/25/2018.. Patient has been discontinued on Plavix secondary to the GI bleed, aspirin has been resumed, hemoglobin on discharge was approximately 11.8, she also has orthostatic vital signs during the last admission Patient was discharged to home with home care and home O2, patient return back to the emergency room secondary to increasing dyspnea, dyspnea on exertion, d- dimer was elevated 1.6, also BNP is also elevated, patient shows some symptoms also off acute congestive heart failure exacerbation, she has slightly elevated troponins, for which cardiology has been consulted for this during this admission. We are going to obtain VQ scan in view off the elevated d-dimer, along with Dopplers of the lower extremity, IV Lasix provided 12/29: Patient continues to have severe respiratory distress on BiPAP with FiO2 of 50%, she has been afebrile, heart rate running in the 60s, blood pressure 159 /70. Troponins have been elevated and cardiology has ruled out acute coronary syndrome. Bilateral lower extremity Dopplers negative for DVT. Patient is unable to undergo VQ scan due to positioning and oxygen need. Lovenox started. Consult with pulmonary medicine has been added. C. diff stool toxin came back negative. 12/30: Patient remains on high flow nasal cannula with respiratory distress. This morning, pulse ox was 86% and was transitioned to BiPAP 60% FiO2. Patient was later transferred to the intensive care unit due to impending respiratory failure. She has had ultrasound of the chest and marked for thoracentesis and plan is for right sided today. She has been afebrile, blood pressure stable, BUN 53 and creatinine 1.8, white count is normal at 7.4 and hemoglobin 11.6. Blood sugars elevated and metformin will be discontinued as patient is not taking any oral medications. Levemir 5 units and NovoLog scale added. Dr. Arellano is following 12/31: Patient was seen second thoracentesis this morning with 1300 clear yellow fluid out of the right lung. Patient feels much improved and have oxygen demand has gone down from 11 L to 4 L. Daughter at the bedside who had multiple concerns and questions. Plan discussed with patient's and her daughter at the bedside and later with cosmetic sales consultant on the case that he would like to continue with diuretics that was increased to 40 mg IV push every 8 hours continue with Sunshine catheter for monitoring close urine output and monitor her weight on daily basis, have physical lytic patient of therapy evaluated the patient and dietitian as well monitor her glucose closely and encourage oral intake. 01/01: Patient is improving every day and seems to be more comfortable. Patient is denying chest pain, nausea vomiting or abdominal pain. We'll decrease Lasix dose to 40 mg IV push twice daily, remove Sunshine catheter and do voiding trials, transfer patient to [facility] and monitor her vital signs closely continue monitoring her urine output. Discharge planning based on clinical progress plan discussed with cosmetic sales consultant on the case 01/02: Patient remains in intensive care unit but has been waiting for bed since the to the cardiac stepdown unit. She is using incentive spirometry at 750 ML's. Patient is not eating very much but is taking Glucerna. She is complaining of a sore throat. Medication started for thrush. We'll plan to transition IV Lasix to oral 80 mg twice daily. PT and OT added. Patient is complaining of right hand swelling which appears to be from IV. No signs of phlebitis. She has been afebrile, pulse ox 95% on 3 L, pulse running in the 50s , blood pressure 146/55. 01/03: Patient remains in intensive care unit and waning for cardiac stepdown floor. She has been hemodynamically stable. We transitioned her to oral Lasix yesterday at 80 mg twice daily. Pulse ox is 95% on 3 L nasal cannula, blood pressure 151/53, heart rate running in the 50s and 60s. Patient has been afebrile. Blood sugars are running high and metformin will be resumed as renal function has normalized. 01/04: Patient is stating that she is feeling much better today. [facility] Oxygen saturation is 95-97% on 3 L nasal cannula, she's been afebrile, blood pressure 110/57, heart rate 50s and 60s. Regarding discharge plan, patient states that she is planning to return home with her daughter. We will ask case management to confirm this. Patient most likely will be ready for discharge by tomorrow. 01/05: Patient denies shortness of breath. She has been on O2 with pulse ox 97% on 3 L. She has home O2 which was arranged on her last admission. She has been afebrile, heart rate running in the 50s and 60s, blood pressure 140/79. online marketing manager/social work associate met with patient and family yesterday and plan is for her to return home with her daughter. Patient will be discharged home today in stable condition. Discharge diagnoses: 1. Acute hypoxic and hypercapnic respiratory failure secondary to acute on chronic diastolic heart failure, bilateral pleural effusions with lactic acidosis. Status post bilateral thoracentesis. 2. Recent Lower GI bleed likely diverticular bleed however diverticulitis or neoplasm cannot be entirely ruled out. 2. CAD post-PCI of the LAD. 3. 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 4. Hyperlipidemia. 5. Vascular dementia. 6. Osteoarthritis, generalized. Stable. 7. Generalized anxiety disorder and recurrent depression. 8. Diabetes mellitus type 2. 9. 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 Thrush. 12. Acute kidney injury with chronic kidney disease stage II. Discharge plan: Home with [facility] Impression and plan of care have been directed as dictated by the signing physician. Donita Padron nurse practitioner acting as scribe for signing physician. Patient Condition at Discharge: Good Plan - Discharge Summary Discharge Rx Participant: No New Discharge Prescriptions: New Clotrimazole Moe [Mycelex Moe] 10 mg MUCOUS MEM 5XD #15 moe Furosemide [Lasix] 80 mg PO BID@0900,1600 #60 tab Isosorbide Mononitrate ER [Imdur] 30 mg PO DAILY #30 tab.er.24h Spironolactone [Aldactone] 25 mg PO DAILY #30 tab Continue Aspirin [Adult Low Dose Aspirin EC] 81 mg PO DAILY Famotidine [Pepcid] 20 mg PO DAILY Ranolazine [Ranexa] 1,000 mg PO Q12HR #60 tab.er.12h Atorvastatin [Lipitor] 40 mg PO DAILY Galantamine [Razadyne] 4 mg PO AC-BID metFORMIN HCL [Glucophage] 500 mg PO BID Ergocalciferol (Vitamin D2) [Vitamin D2] 50,000 unit PO Q14D Escitalopram [Lexapro] 10 mg PO DAILY amLODIPine [Norvasc] 10 mg PO DAILY #30 tab hydrALAZINE HCL [Apresoline] 50 mg PO TID #90 tab Hydrocortisone Suppository [Anusol-Hc] 25 mg RECTAL HS supp Potassium Chloride ER [K-Dur 10] 10 meq PO BID #60 tab Lisinopril [Zestril] 40 mg PO DAILY Changed Metoprolol Tartrate [Lopressor] 50 mg PO BID #90 tab Discontinued Hydrochlorothiazide [Hydrodiuril] 25 mg PO DAILY #30 tab Furosemide [Lasix] 40 mg PO DAILY #30 tablet Discharge Medication List Aspirin [Adult Low Dose Aspirin EC] 81 mg PO DAILY 11/21/17 [History] Famotidine [Pepcid] 20 mg PO DAILY 11/21/17 [History] Ranolazine [Ranexa] 1,000 mg PO Q12HR #60 tab.er.12h 11/25/17 [Rx] Atorvastatin [Lipitor] 40 mg PO DAILY 01/02/18 [History] Galantamine [Razadyne] 4 mg PO AC-BID 01/02/18 [History] metFORMIN HCL [Glucophage] 500 mg PO BID 02/02/18 [History] Ergocalciferol (Vitamin D2) [Vitamin D2] 50,000 unit PO Q14D 12/20/18 [History] Escitalopram [Lexapro] 10 mg PO DAILY 12/20/18 [History] Hydrocortisone Suppository [Anusol-Hc] 25 mg RECTAL HS supp 12/25/18 [Rx] Potassium Chloride ER [K-Dur 10] 10 meq PO BID #60 tab 12/25/18 [Rx] amLODIPine [Norvasc] 10 mg PO DAILY #30 tab 12/25/18 [Rx] hydrALAZINE HCL [Apresoline] 50 mg PO TID #90 tab 12/25/18 [Rx] Lisinopril [Zestril] 40 mg PO DAILY 12/28/18 [History] Clotrimazole Moe [Mycelex Moe] 10 mg MUCOUS MEM 5XD #15 moe 01/05/19 [ Rx] Furosemide [Lasix] 80 mg PO BID@0900,1600 #60 tab 01/05/19 [Rx] Isosorbide Mononitrate ER [Imdur] 30 mg PO DAILY #30 tab.er.24h 01/05/19 [Rx] Metoprolol Tartrate [Lopressor] 50 mg PO BID #90 tab 01/05/19 [Rx] Spironolactone [Aldactone] 25 mg PO DAILY #30 tab 01/05/19 [Rx] Follow up Appointment(s)/Referral(s): Yee Sales MD [Primary Care Provider] - 01/12/19 11:00 am [facility], [NON-STAFF] - Patient Instructions/Handouts: Heart Failure (DC)
--- NOTE | 2019-01-06 13:20 | P.PN ---
Progress Note - Text Progress Note Date: 01/06/19 for documentation clarification, patient had acute hypoxic and hypercapnic respiratory failure, secondary to diastolic congestive heart failure and bilateral pleural effusions.
== END 2019-01-05 10:50 | disposition home health service (06) | DRG 280 ==
LOC: EC 10:07 → 3SCARD 11:37 → 2SICU 12-30 13:57 → 4MS4W 01-03 23:44
PROVIDERS: ADMIT Family Medicine; ATTEND Family Medicine
PROC: 5A09457 Assistance with Respiratory Ventilation, 24-96 Consecutive Hours, Continuous Positive Airway Pressure (ICD-10-PCS; principal; 2018-12-28)
PROC: 0W9B3ZZ Drainage of Left Pleural Cavity, Percutaneous Approach (ICD-10-PCS; 2018-12-30)
PROC: 0W993ZZ Drainage of Right Pleural Cavity, Percutaneous Approach (ICD-10-PCS; 2018-12-31)
PROC: 3E02340 Introduction of Influenza Vaccine into Muscle, Percutaneous Approach (ICD-10-PCS; 2019-01-05)
DX: I13.0 Hypertensive heart and chronic kidney disease with heart failure and stage 1 through stage 4 chronic kidney disease, or unspecified chronic kidney disease (principal); I50.33 Acute on chronic diastolic (congestive) heart failure; I21.A1 Myocardial infarction type 2; K57.91 Diverticulosis of intestine, part unspecified, without perforation or abscess with bleeding; J96.02 Acute respiratory failure with hypercapnia; J96.01 Acute respiratory failure with hypoxia; F33.9 Major depressive disorder, recurrent, unspecified; N17.9 Acute kidney failure, unspecified; E87.2 Acidosis; J91.8 Pleural effusion in other conditions classified elsewhere; B37.0 Candidal stomatitis; E44.1 Mild protein-calorie malnutrition; J98.11 Atelectasis; E11.22 Type 2 diabetes mellitus with diabetic chronic kidney disease; E11.41 Type 2 diabetes mellitus with diabetic mononeuropathy; R13.10 Dysphagia, unspecified; F01.50 Vascular dementia, unspecified severity, without behavioral disturbance, psychotic disturbance, mood disturbance, and anxiety; N18.2 Chronic kidney disease, stage 2 (mild); Z23 Encounter for immunization; K44.9 Diaphragmatic hernia without obstruction or gangrene; H54.7 Unspecified visual loss; K22.8 Other specified diseases of esophagus; E78.5 Hyperlipidemia, unspecified; I25.10 Atherosclerotic heart disease of native coronary artery without angina pectoris; I25.2 Old myocardial infarction; H35.30 Unspecified macular degeneration; M19.90 Unspecified osteoarthritis, unspecified site; F41.1 Generalized anxiety disorder; R26.81 Unsteadiness on feet; R93.89 Abnormal findings on diagnostic imaging of other specified body structures; Z99.81 Dependence on supplemental oxygen; Z68.30 Body mass index [BMI] 30.0-30.9, adult; Z79.82 Long term (current) use of aspirin; Z79.84 Long term (current) use of oral hypoglycemic drugs; Z79.899 Other long term (current) drug therapy; Z99.89 Dependence on other enabling machines and devices; Z86.73 Personal history of transient ischemic attack (TIA), and cerebral infarction without residual deficits; Z90.49 Acquired absence of other specified parts of digestive tract; Z95.5 Presence of coronary angioplasty implant and graft; Z87.891 Personal history of nicotine dependence; Z91.81 History of falling; Z88.5 Allergy status to narcotic agent; Z88.8 Allergy status to other drugs, medicaments and biological substances; Z82.69 Family history of other diseases of the musculoskeletal system and connective tissue; Z82.49 Family history of ischemic heart disease and other diseases of the circulatory system; Z83.3 Family history of diabetes mellitus; Z83.518 Family history of other specified eye disorder; Z84.1 Family history of disorders of kidney and ureter
CPT/HCPCS: 36415; 36600; 51702; 71045; 76604; 80048; 80053; 82805; 82945; 83605; 83615; 83735; 83880; 84100; 84157; 84484; 85025; 85027; 85379; 85610; 85730; 87040; 87070; 87102; 87116; 87205; 87206; 87252; 87324; 87496; 87498; 87502; 87529; 87634; 87798; 88108; 88305; 89050; 90686; 93970; 94660; 94760; 96374; 96375; 99291

== ENCOUNTER 2019-01-13 09:28 | Inpatient (IN) | payer MEDICARE, BC ==
[2019-01-13] MEDS ORDERED: SODIUM CHLORIDE 0.9% 500 ML 500 ML IV STA (09:38)
[2019-01-13 10:18] LABS: Basophils # (A) 0.1 k/uL (0-0.2); Basophils % (A) 1 %; Eosinophils # (A) 0.2 k/uL (0-0.7); Eosinophils % (A) 1 %; HCT 38.1 % (34.0-46.0); HGB 12.8 gm/dL (11.4-16.0); Lymphocytes # (A) 1.4 k/uL (1.0-4.8); Lymphocytes % (A) 13 %; MCH 32.1 pg (25.0-35.0); MCHC 33.7 g/dL (31.0-37.0); MCV 95.2 fL (80.0-100.0); Mean Platelet Volume 6.1; Monocytes # (A) 0.5 k/uL (0-1.0); Monocytes % (A) 5 %; Neutrophils # (A) 8.3 k/uL (1.3-7.7); Neutrophils % (A) 79 %; Platelet Count 448 k/uL (150-450); RDW 13.6 % (11.5-15.5); WBC 10.6 k/uL (3.8-10.6)
[2019-01-13 10:27] LABS: Calcium 9.7 mg/dL (8.4-10.2); Total Bilirubin 1.2 mg/dL (0.2-1.3); Total Protein 6.7 g/dL (6.3-8.2)
[2019-01-13 10:36] LABS: Potassium 5.9 mmol/L (3.5-5.1)
[2019-01-13 10:37] LABS: Amorphous Sediment,Urine Rare /hpf; Appearance,Urine Cloudy (Clear); Bacteria,Urine Moderate /hpf; Bilirubin,Urine Negative (Negative); Blood,Urine Negative (Negative); Color,Urine Yellow; Glucose,Urine (UA) Negative (Negative); Hyaline Casts,Urine 3 /lpf (0-2); Ketones,Urine Negative (Negative); Leukocyte Esterase,Urine Small (Negative); Mucus,Urine Rare /hpf; Nitrite,Urine Negative (Negative); PH, Urine 5.5 (5.0-8.0); Protein,Urine Negative (Negative); Specific Gravity,Urine 1.007 (1.001-1.035); Squamous Epithelial Cell,Urine <1 /hpf (0-4); Urobilinogen,Urine <2.0 mg/dL (<2.0)
[2019-01-13] MEDS ORDERED: SODIUM CHLORIDE 0.9% 500 ML 500 ML IV ONE (10:41)
[2019-01-13] MEDS ORDERED: CALCIUM GLUCONATE 2 GM in SODIUM CHLORIDE 0.9% 100 ML IVPB ONE (10:42)
--- NOTE | 2019-01-13 11:32 | ED ---
Nausea/Vomiting/Diarrhea HPI <Levi Carrington - Last Filed: 01/13/19 12:34> - General Source: patient Mode of arrival: wheelchair Limitations: no limitations <Brandi Beaulieu - Last Filed: 01/13/19 13:19> - General Chief complaint: Nausea/Vomiting/Diarrhea Stated complaint: Dehydration/diarrhea Time Seen by Provider: 01/13/19 09:38 - History of Present Illness Initial comments: 88yo female with past medical history of congestive heart failure, diabetes, hypertension with recent hospitalization 2 weeks prior for congestive heart failure exacerbation presents today for chief complaint of nausea, vomiting and diarrhea. Patient's daughter states she has had diarrhea for the past week with vomiting times past 2 days. Patient denies any significant abdominal pain. She denies any chest pain dyspnea despite exertion or lower extremity edema. Patient states she does have history of hemorrhoids, definitely denies any current rectal bleeding. Denies melena. Denies any hematemesis. Patient' s family states that because diarrhea is persistent they're worried about dehydration, as recommended by their homecare nurse that she presented for IV fluids. Pt family states that "they dont expect to be here long, just came in for fluids". Patient's family state that she was discharged home on numerous medications since her congestive heart failure exacerbation. He states this includes Lasix. Remaining review of systems negative, patient denies any recent fever, chills, shortness of breath, chest pain, back pain, numbness or tingling, dysuria or hematuria, constipation,headaches or visual changes, or any other complaints. Upon arrival VS WNL. Pt does not appear in distress. ( Brandi Beaulieu) - Related Data Home Medications Medication Instructions Recorded Confirmed Aspirin [Adult Low Dose Aspirin EC] 81 mg PO DAILY 11/21/17 01/13/19 Famotidine [Pepcid] 20 mg PO DAILY 11/21/17 01/13/19 Atorvastatin [Lipitor] 40 mg PO DAILY 01/02/18 01/13/19 Galantamine [Razadyne] 4 mg PO AC-BID 01/02/18 01/13/19 metFORMIN HCL [Glucophage] 500 mg PO BID 02/02/18 01/13/19 Escitalopram [Lexapro] 10 mg PO DAILY 12/20/18 01/13/19 Clopidogrel [Plavix] 75 mg PO DAILY 01/13/19 01/13/19 Hydrochlorothiazide [Hydrodiuril] 25 mg PO DAILY 01/13/19 01/13/19 Lisinopril 20 mg PO DAILY 01/13/19 01/13/19 Metoprolol Tartrate [Lopressor] 50 mg PO TID 01/13/19 01/13/19 Ondansetron [Zofran] 4 mg PO Q8HR PRN 01/13/19 01/13/19 Previous Rx's Medication Instructions Recorded Ranolazine [Ranexa] 1,000 mg PO Q12HR #60 tab.er.12h 11/25/17 Potassium Chloride ER [K-Dur 10] 10 meq PO BID #60 tab 12/25/18 amLODIPine [Norvasc] 10 mg PO DAILY #30 tab 12/25/18 hydrALAZINE HCL [Apresoline] 50 mg PO TID #90 tab 12/25/18 Clotrimazole Moe [Mycelex 10 mg MUCOUS MEM 5XD #15 moe 01/05/19 Moe] Furosemide [Lasix] 80 mg PO BID@0900,1600 #60 tab 01/05/19 Isosorbide Mononitrate ER [Imdur] 30 mg PO DAILY #30 tab.er.24h 01/05/19 Spironolactone [Aldactone] 25 mg PO DAILY #30 tab 01/05/19 Allergies Allergy/AdvReac Type Severity Reaction Status Date / Time hydrocodone [From [place]] Allergy Rash/Hives Verified 01/13/19 10:25 naproxen sodium [From Aleve] Allergy Itching,bessie Verified 01/13/19 10:25 h glimepiride [From Amaryl] AdvReac Nausea & Verified 01/13/19 10:25 Vomiting Review of Systems ROS Other: All systems not noted in ROS Statement are negative. <Levi Carrington - Last Filed: 01/13/19 12:34> ROS Other: All systems not noted in ROS Statement are negative. <Brandi Beaulieu - Last Filed: 01/13/19 13:19> ROS Statement: Those systems with pertinent positive or pertinent negative responses have been documented in the HPI. Past Medical History Past Medical History: Coronary Artery Disease (CAD), CVA/TIA, Diabetes Mellitus , GI Bleed, Hyperlipidemia, Hypertension, Myocardial Infarction (SC), Renal Disease Additional Past Medical History / Comment(s): Pt recently admitted to [facility] on with lower GI bleed thought likely d/t diverticular disease/orthostatic hypotension/CHF. 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 Last Myocardial Infarction Date:: 11/18/17 History of Any Multi-Drug Resistant Organisms: None Reported Past Surgical History: Appendectomy, Back Surgery, Cholecystectomy, Heart Catheterization With Stent Additional Past Surgical History / Comment(s): Low back surgery, cervical surgery, R wrist carpal tunnel release, colonoscopy (not completed d/t poor prep ) about 10 yrs ago, EGD 01/2018 d/t abdominal pain. Past Anesthesia/Blood Transfusion Reactions: No Reported Reaction Additional Past Anesthesia/Blood Transfusion Reaction / Comment(s): Pt has clausterphobia. Date of Last Stent Placement:: 11/18/17 Past Psychological History: Depression Smoking Status: Former smoker Past Alcohol Use History: None Reported Past Drug Use History: None Reported - Past Family History Father Additional Family Medical History / Comment(s): Father at age 91 from old age. Mother Additional Family Medical History / Comment(s): Mother at age 85 with history of lupus. Brother(s) Additional Family Medical History / Comment(s): Patient's siblings have history of coronary artery disease, diabetes, hypertension, macular degeneration. Daughter(s) Additional Family Medical History / Comment(s): Patient has 11 children; 6 daughters and 5 sons. 3 have and 2 from kidney failure and one was murdered. Sister(s) Additional Family Medical History / Comment(s): Pt had a sister live to be 102 yrs old. <Brandi Beaulieu - Last Filed: 01/13/19 13:19> General Exam <Lvei Carrington - Last Filed: 01/13/19 12:34> Limitations: no limitations <Brandi Beaulieu - Last Filed: 01/13/19 13:19> - General Exam Comments Initial Comments: General: The patient is awake and alert, in no distress. Pt appear nontoxic. Eye: +3 mm pupils are equal, round and reactive to light, extra-ocular movements are intact. No nystagmus. There is normal conjunctiva bilaterally. No signs of icterus. Ears, nose, mouth and throat: There are moist mucous membranes and no oral lesions. Neck: The neck is supple, there is no tenderness or JVD. Cardiovascular: There is a regular rate and rhythm. No rub or gallop is appreciated. Mild murmur audible. Respiratory: Lungs are clear to auscultation, respirations are non-labored, breath sounds are equal. No wheezes, stridor, rales, or rhonchi. Gastrointestinal: Soft, non-distended, non-tender abdomen without masses or organomegaly noted. There is no rebound or guarding present. No CVA tenderness. Bowel sounds are unremarkable. Musculoskeletal: Normal ROM, no tenderness. Strength 5/5. Sensation intact. Radial pulses equal bilaterally 2+. Neurological: A&O x 3. CN II-XII intact, There are no obvious motor or sensory deficits. Coordination appears grossly intact. Speech is normal. Skin: Skin is warm and dry and no rashes or lesions are noted. No LE pitting edema. Psychiatric: Cooperative, appropriate mood & affect, normal judgment. (Brandi Beaulieu) Course <Levi Carrington - Last Filed: 01/13/19 12:34> <Brandi Beaulieu - Last Filed: 01/13/19 13:19> Vital Signs 01/13/19 01/13/19 01/13/19 09:34 12:02 12:24 Temperature 98.2 F Pulse Rate 58 L 61 Respiratory 18 14 Rate Blood Pressure 112/48 89/46 133/54 O2 Sat by Pulse 97 98 Oximetry - Reevaluation(s) Reevaluation #1: 01/13/19 12:35 Patient reevaluated by myself, Dr. Carrington. Patient resting comfortably in bed. Abdomen soft and nontender. Patient does have significant dehydration. Patient updated on results and plan. Case discussed in detail with Dr. Michaud, who will admit covering for Dr. Sales. He does request consults with nephrology and cardiology. (Levi Carrington) Procedures - [place] Protocol (Time Out) Nurse: Ginny Butterfield <Brandi Beaulieu - Last Filed: 01/13/19 13:19> Medical Decision Making - Lab Data Result diagrams: 01/13/19 09:50 01/13/19 09:50 <Levi Carrington - Last Filed: 01/13/19 12:34> - Lab Data Result diagrams: 01/13/19 09:50 01/13/19 09:50 <Brandi Beaulieu L - Last Filed: 01/13/19 13:19> - Medical Decision Making 88yo female presenting today for diarrhea vomiting. Patient presented for IV fluids. Upon arrival patient appears dry. BUN elevated at 106, creatinine more than double baseline, concerning for acute kidney injury. Most likely prerenal. Potassium elevated however there is no hyperacute T waves on EKG,m calclium gluconate given. EKG was reviewed by attending provider, and compared to previous of 12/28/18. Noted ST depression in lateral leads, cardiology on consult. Pt had scheduled appointment at her cardiology office today scheduled for 2PM. Patient denies any melena or hematochezia. Patient hemoglobin stable. Blood pressure within acceptable limits. Patient was given IV fluids in the emergency department. Elevated lipase. Benign abdomen. No LE edema. CT abdomen and pelvis revealed no acute abnormalities. No evidence of obstruction. At this time feel patient should be admitted for acute kidney injury, elevated BUN, and hyperkalemia. Dr. Michaud accepted admission for patient primary provider Dr. Sales. Cardiology and nephrology on consult. US as requested by admitted provider pending. I did discuss the case in detail with attending provider Dr. Carrington in detail who spoke and discussed case with attending provider. Pt transferred to the floor in stable condition. Admitting provider ordered verbally upon accepting admission, occult blood, protonix, influenza for which he will follow results in patient. (BrittneeBrandi Hernandez) - Lab Data Lab Results 01/13/19 01/13/19 01/13/19 Range/Units 09:50 09:50 09:50 WBC 10.6 (3.8-10.6) k/uL RBC 4.00 (3.80-5.40) m/uL Hgb 12.8 (11.4-16.0) gm/dL Hct 38.1 (34.0-46.0) % MCV 95.2 (80.0-100.0) fL MCH 32.1 (25.0-35.0) pg MCHC 33.7 (31.0-37.0) g/dL RDW 13.6 (11.5-15.5) % Plt Count 448 (150-450) k/uL Neutrophils % 79 % Lymphocytes % 13 % Monocytes % 5 % Eosinophils % 1 % Basophils % 1 % Neutrophils # 8.3 H (1.3-7.7) k/uL Lymphocytes # 1.4 (1.0-4.8) k/uL Monocytes # 0.5 (0-1.0) k/uL Eosinophils # 0.2 (0-0.7) k/uL Basophils # 0.1 (0-0.2) k/uL Sodium 129 L (137-145) mmol/L Potassium 5.9 H (3.5-5.1) mmol/L Chloride 91 L (98-107) mmol/L Carbon Dioxide 19 L (22-30) mmol/L Anion Gap 19 mmol/L BUN 108 H* (7-17) mg/dL Creatinine 2.54 H (0.52-1.04) mg/dL Est GFR (CKD-EPI)AfAm 19 (>60 ml/min/1.73 sqM) Est GFR (CKD-EPI)NonAf 17 (>60 ml/min/1.73 sqM) Glucose 191 H (74-99) mg/dL Calcium 9.7 (8.4-10.2) mg/dL Total Bilirubin 1.2 (0.2-1.3) mg/dL AST 30 (14-36) U/L ALT 29 (9-52) U/L Alkaline Phosphatase 77 (38-126) U/L Total Protein 6.7 (6.3-8.2) g/dL Albumin 4.0 (3.5-5.0) g/dL Amylase 69 (30-110) U/L Lipase 545 H (23-300) U/L Urine Color Yellow Urine Appearance Cloudy H (Clear) Urine pH 5.5 (5.0-8.0) Ur Specific [place] 1.007 (1.001-1.035) Urine Protein Negative (Negative) Urine Glucose (UA) Negative (Negative) Urine Ketones Negative (Negative) Urine Blood Negative (Negative) Urine Nitrite Negative (Negative) Urine Bilirubin Negative (Negative) Urine Urobilinogen <2.0 (<2.0) mg/dL Ur Leukocyte Esterase Small H (Negative) Urine WBC 18 H (0-5) /hpf Urine WBC Clumps Few H (None) /hpf Ur Squamous Epith Cells <1 (0-4) /hpf Amorphous Sediment Rare H (None) /hpf Urine Bacteria Moderate H (None) /hpf Hyaline Casts 3 H (0-2) /lpf Urine Mucus Rare H (None) /hpf Disposition <Levi Carrington - Last Filed: 01/13/19 12:34> Is patient prescribed a controlled substance at d/c from ED?: No Time of Disposition: 12:04 <Brandi Beaulieu - Last Filed: 01/13/19 13:19> Clinical Impression: Acute kidney injury, Dehydration, Vomiting, Diarrhea, Elevated BUN, Hyperkalemia Disposition: ADMITTED IP TO THIS HOSP Condition: Stable Referrals: Yee Sales MD [Primary Care Provider] - 1-2 days
--- NOTE | 2019-01-13 11:50 | CT ---
EXAMINATION TYPE: CT abdomen pelvis wo con DATE OF EXAM: 01/13/2019 COMPARISON: 01/15/2018 HISTORY: Pain Automated exposure control for dose reduction was used. TECHNIQUE: Helical acquisition of images was performed from the lung bases through the pelvis. FINDINGS: LUNG BASES: Subsegmental consolidation at both lung bases with tiny effusions. The heart is enlarged. LIVER/GB: No significant abnormality is appreciated. PANCREAS: No significant abnormality is seen. SPLEEN: No significant abnormality is seen. ADRENALS: Thickening of the left adrenal gland. KIDNEYS: Indeterminant upper pole left renal lesion by noncontrast technique. There is very mild righ t-sided hydronephrosis. No definite hydroureter. ADENOPATHY: None visualized. OSSEOUS STRUCTURES: Multilevel degenerative disc disease. Postsurgical change L4-L5. Air within the spinal canal likely secondary to degenerative disc disease. There are adjacent vacuum disc. BOWEL: Findings of diverticulosis noted with no CT evidence of diverticulitis. Bowel gas pattern non specific. OTHER: Diffuse atherosclerotic change of the vasculature. Atherosclerotic change of the aorta there i s subcutaneous soft tissue nodules overlying the left anterior abdominal wall which are nonspecific. IMPRESSION: 1. Bilateral lower lobe atelectasis or infiltrate with tiny effusion. 2. Nonspecific abdomen with no evidence of obstruction. Diverticulosis with no CT evidence of diverti culitis there are 3 there is mild right-sided hydronephrosis correlate with urinalysis. No definitive renal or ureteral calculus. 3. Extensive atherosclerotic change including the mesenteric vasculature. Stenosis of the SMA exclude d. 4. Nonspecific less than 1 cm soft tissue nodules in the anterior subcutaneous tissues.
[2019-01-13] MEDS ORDERED: NALOXONE 0.4 MG/ML 1 ML VIAL IV PRN (12:07)
[2019-01-13] MEDS ORDERED: PANTOPRAZOLE 40 MG/10 ML VIAL IVP STA (12:42)
[2019-01-13] MEDS: SODIUM CHLORIDE 0.9% 1,000 ML IV SCH (12:57)
[2019-01-13] MEDS ORDERED: ONDANSETRON 4 MG TAB PO PRN (13:34)
--- NOTE | 2019-01-13 13:34 | P.HPIM ---
History of Present Illness H&P Date: 01/13/19 Chief Complaint: Severe abdominal pain, nausea and vomiting with diarrhea, recent history of 88-year-old female one of Dr. Sales's patient who was in to have history of coronary disease, CVA, diabetes, history of GI bleed, previous history of [place] and chronic kidney disease who was hospitalized between December 28 -December with exacerbation of diastolic dysfunction congestive heart failure acute on chronic was treated stabilized and felt well patient ended up going home with home care and slight more help with family. She presented to demurs department at [facility] today with 5 days worsening abdominal pain nausea vomiting and diarrhea become much worse the last 2 days not been able to keep any food or fluid down end up coming with acute kidney failure acute kidney injury along with acute pancreatitis and possible acute gastrointestinal bleed. Patient lipase was elevated, BUN/ creatinine was quite bit elevated compared to her discharge. Patient has not noticed any black stool declined any history of influenza in her family. Flu was requested, CT of the abdomen and pelvis showed nonspecific finding with 3 mild right-sided hydronephrosis with diverticuli no major finding in the pancreas and the liver area. Clinically patient had severe gastroenteritis, gastritis and acute pancreatitis with worsening GI bleed and subacute abdominal pain. Review of Systems CONSTITUTIONAL: Well-developed no acute respiratory distress. Dehydrated and in no distress. EYES: No icterus sclerae, no conjunctivitis. EARS, NOSE, MOUTH, THROAT, and FACE: No sore throat, lymphadenopathy, carotid bruits or deformity. RESPIRATORY: No SOB cough or wheezes. CARDIOVASCULAR: Positive palpitation, PND orthopnea with no angina. GASTROINTESTINAL: Positive abdominal pain with nausea and vomiting positive diarrhea or slow gastrointestinal bleed. GENITOURINARY: Negative for Hematuria or UTI, no kidney stones. Significant decrease urine output. INTEGUMENT/BREAST: Negative for any muscular injury with mild osteoarthritis.. HEMATOLOGIC/LYMPHATIC: Negative for bleed or purpura. MUSCULOSKELTAL: Negative for Myalgia or arthralgia. NEURLOGICAL: No LOC, Sz or syncope, blurred vision dizziness or abnormality.. BEHAVIORAL/PSYCH: Negative. ENDOCRINE: Negative. Past Medical History Past Medical History: Coronary Artery Disease (CAD), CVA/TIA, Diabetes Mellitus , GI Bleed, Hyperlipidemia, Hypertension, Myocardial Infarction ([place]), Renal Disease Additional Past Medical History / Comment(s): Pt recently admitted to [facility] on with lower GI bleed thought likely d/t diverticular disease/orthostatic hypotension/CHF. 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 Last Myocardial Infarction Date:: 11/18/17 History of Any Multi-Drug Resistant Organisms: None Reported Past Surgical History: Appendectomy, Back Surgery, Cholecystectomy, Heart Catheterization With Stent Additional Past Surgical History / Comment(s): Low back surgery, cervical surgery, R wrist carpal tunnel release, colonoscopy (not completed d/t poor prep ) about 10 yrs ago, EGD 01/2018 d/t abdominal pain. Past Anesthesia/Blood Transfusion Reactions: No Reported Reaction Additional Past Anesthesia/Blood Transfusion Reaction / Comment(s): Pt has clausterphobia. Date of Last Stent Placement:: 11/18/17 Past Psychological History: Depression Smoking Status: Former smoker Past Alcohol Use History: None Reported Past Drug Use History: None Reported - Past Family History Father Additional Family Medical History / Comment(s): Father at age 91 from old age. Mother Additional Family Medical History / Comment(s): Mother at age 85 with history of lupus. Brother(s) Additional Family Medical History / Comment(s): Patient's siblings have history of coronary artery disease, diabetes, hypertension, macular degeneration. Daughter(s) Additional Family Medical History / Comment(s): Patient has 11 children; 6 daughters and 5 sons. 3 have and 2 from kidney failure and one was murdered. Sister(s) Additional Family Medical History / Comment(s): Pt had a sister live to be 102 yrs old. Medications and Allergies Home Medications Medication Instructions Recorded Confirmed Type Aspirin [Adult Low Dose Aspirin EC] 81 mg PO DAILY 11/21/17 01/13/19 History Famotidine [Pepcid] 20 mg PO DAILY 11/21/17 01/13/19 History Ranolazine [Ranexa] 1,000 mg PO Q12HR #60 tab.er.12h 11/25/17 01/13/19 Rx Atorvastatin [Lipitor] 40 mg PO DAILY 01/02/18 01/13/19 History Galantamine [Razadyne] 4 mg PO AC-BID 01/02/18 01/13/19 History metFORMIN HCL [Glucophage] 500 mg PO BID 02/02/18 01/13/19 History Escitalopram [Lexapro] 10 mg PO DAILY 12/20/18 01/13/19 History Potassium Chloride ER [K-Dur 10] 10 meq PO BID #60 tab 12/25/18 01/13/19 Rx amLODIPine [Norvasc] 10 mg PO DAILY #30 tab 12/25/18 01/13/19 Rx hydrALAZINE HCL [Apresoline] 50 mg PO TID #90 tab 12/25/18 01/13/19 Rx Clotrimazole Bobby [Mycelex 10 mg MUCOUS MEM 5XD #15 bobby 01/05/19 01/13/19 Rx Bobby] Furosemide [Lasix] 80 mg PO BID@0900,1600 #60 tab 01/05/19 01/13/19 Rx Isosorbide Mononitrate ER [Imdur] 30 mg PO DAILY #30 tab.er.24h 01/05/19 Rx Spironolactone [Aldactone] 25 mg PO DAILY #30 tab 01/05/19 01/13/19 Rx Clopidogrel [Plavix] 75 mg PO DAILY 01/13/19 01/13/19 History Hydrochlorothiazide [Hydrodiuril] 25 mg PO DAILY 01/13/19 01/13/19 History Lisinopril 20 mg PO DAILY 01/13/19 01/13/19 History Metoprolol Tartrate [Lopressor] 50 mg PO TID 01/13/19 01/13/19 History Ondansetron [Zofran] 4 mg PO Q8HR PRN 01/13/19 01/13/19 History Allergies Allergy/AdvReac Type Severity Reaction Status Date / Time hydrocodone [From Flynn] Allergy Rash/Hives Verified 01/13/19 10:25 naproxen sodium [From Aleve] Allergy Itching,bessie Verified 01/13/19 10:25 h glimepiride [From Amaryl] AdvReac Nausea & Verified 01/13/19 10:25 Vomiting Physical Exam Vitals: Vital Signs Temp Pulse Resp BP Pulse Ox 01/13/19 13:19 60 16 122/59 100 01/13/19 12:24 133/54 01/13/19 12:02 61 14 89/46 98 01/13/19 09:34 98.2 F 58 L 18 112/48 97 Intake and Output 01/12/19 01/13/19 01/13/19 22:59 06:59 14:59 Other: Weight 69.4 kg General Appearance: Alert, cooperative, no distress, appears stated age. Neck HEENT: Supple, no lymphadenopathy, no thyroid enlargement, no carotid bruits. Lungs: Clear to auscultation without crackles or wheezes no rhonchi, no deformity. Chest Wall: Chest wall normal expansion with deep inspiration no tenderness and no deformity was found on exam, no costochondral pain or discomfort. Heart: Regular rate and rhythm, S1, S2 normal, no murmur, rub or gallop. Positive JVD with systolic murmur. Back: Symmetric, no curvature, ROM normal, no CVA tenderness. Abdomen: Soft significant tenderness in the midepigastric and right upper quadrant area no rebound rigidity or masses. Extremities: Extremities normal, atraumatic, no cyanosis or edema. Pulses: 2+ and symmetric. Skin: Skin color, texture, tugor normal, no rashes or lesions. Neurologic: Alert oriented x3 cranial nerves II through XII intact, no motor deficit, no abnormal balance or gait. Results CBC & Chem 7: 01/13/19 09:50 01/13/19 09:50 Labs: Abnormal Lab Results - Last 24 Hours (Table) 01/13/19 01/13/19 01/13/19 Range/Units 09:50 09:50 09:50 Neutrophils # 8.3 H (1.3-7.7) k/uL Sodium 129 L (137-145) mmol/L Potassium 5.9 H (3.5-5.1) mmol/L Chloride 91 L (98-107) mmol/L Carbon Dioxide 19 L (22-30) mmol/L BUN 108 H* (7-17) mg/dL Creatinine 2.54 H (0.52-1.04) mg/dL Glucose 191 H (74-99) mg/dL Lipase 545 H (23-300) U/L Urine Appearance Cloudy H (Clear) Ur Leukocyte Esterase Small H (Negative) Urine WBC 18 H (0-5) /hpf Urine WBC Clumps Few H (None) /hpf Amorphous Sediment Rare H (None) /hpf Urine Bacteria Moderate H (None) /hpf Hyaline Casts 3 H (0-2) /lpf Urine Mucus Rare H (None) /hpf Thrombosis Risk Factor Assmnt - DVT/VTE Prophylaxis DVT/VTE Prophylaxis: Mechanical Prophylaxis ordered Assessment and Plan Plan: 1 severe acute abdominal pain: Combination of pancreatitis, gastritis and gastrointestinal bleed. 2 acute pancreatitis: With elevated lipase CT didn't show any finding of gallstone or common duct dietitian order ultrasound of the liver and gallbladder and the common duct continue medical management with IV hydration, pain management repeat lipase and amylase in 24 hours. 3 acute GI bleed most likely upper in origin with significant elevated bun over creatinine ratio Hemoccult 3 will be done continue GI prophylaxis by having patient on Pepcid and pantoprazole patient will do CBC every day for the next 3 days. 4 congestive heart failure exacerbation: Was seen and evaluated by cardiology this last admission and continue hydralazine along with spironolactone Ranexa metoprolol lisinopril isosorbide and furosemide. 5 acute kidney injury: Much worsening BUN/creatinine ratio and creatinine with GFR significantly decline compared to before continue gentle hydration and continue to treat nausea vomiting repeat kidney function repeat BUN/creatinine next 24 hours. 6 type 2 diabetes: Has been on metformin, with a current kidney function cannot start metformin but will continue patient on Accu-Chek sliding scales coverage. 7 dementia: Alzheimer type continue Razadyne at 4 mg twice a day. 8 hypertension: Has been on hydralazine 50 mg 3 times a day, amlodipine 10 mg daily, spironolactone 25 g daily, metoprolol 50 mg 3 times a day and lisinopril 20 mg daily. 9 chronic depression: Has been on Lexapro. 10 hyperlipidemia: Continue patient on atorvastatin 40 mg daily. 11 anticoagulation: Patient was started on Plavix previously which will be held for now until the GI bleed is a clear at least the next 24 hours we'll continue Plavix and baby aspirin if no further bleed or black stool or drop in hemoglobin. 12 CODE STATUS: Full code. 13 DVT prophylaxis: Patient was started on heparin subcutaneous soon as the GI bleed is clear. Admit patient to inpatient status for more than 2 nights.
--- NOTE | 2019-01-13 14:17 | P.NPCON ---
History of Present Illness - Reason for Consult acute renal failure - History of Present Illness Reason for consultation: Acute kidney injury History of present illness: Patient is a 88-year-old female seen in consultation for acute kidney injury. Her baseline creatinine is 1 and elevated at 2.54 today. Patient presented to the hospital with 4 days of nausea vomiting and diarrhea. Patient states she's been feeling quite sick for the last few days and her oral intake has been quite poor. She does a history of diabetes mellitus and was taking metformin as an outpatient. Additionally she was also on CRISTIANO inhibitor and diuretics along with potassium supplementation at home. The patient's family was concerned due to the persistent diarrhea and was advised by her home care nurse to come to the hospital for IV hydration. She had a CAT scan of the abdomen and pelvis done without contrast on admission which revealed no evidence of hydronephrosis. Blood pressure was as low as 89/46 but most recent reading was 122/59. She did receive 2 L of normal saline bolus in the ER. Vital signs are stable. General: The patient appeared well nourished and normally developed. HEENT: Head exam is unremarkable. Neck is without jugular venous distension. LUNGS: Lungs are clear to auscultation and percussion. Breath sounds decreased. HEART: Rate and Rhythm are regular. First and second heart sounds normal. No murmurs, rubs or gallops. ABDOMEN: Abdominal exam reveals normal bowel sounds. Non-tender and non- distended. No evidence of peritonitis. EXTREMITITES: No clubbing, cyanosis, or edema. Past Medical History Past Medical History: Coronary Artery Disease (CAD), Heart Failure, CVA/TIA, Diabetes Mellitus, GI Bleed, Hyperlipidemia, Hypertension, Myocardial Infarction ([place]), Renal Disease Additional Past Medical History / Comment(s): Pt recently admitted to [facility] on with lower GI bleed thought likely d/t diverticular disease, orthostatic hypotension and CHF. She then had another admission 12/28/18 with acute hypoxic and hypercapnic respiratory failure 2nday to acute on chroic CHF with bilateral pleural effusions with bilateral thoracentesis. She also had endometrial thickening, a presbyesophagus and thrush. 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 Last Myocardial Infarction Date:: 11/18/17 History of Any Multi-Drug Resistant Organisms: None Reported Past Surgical History: Appendectomy, Back Surgery, Cholecystectomy, Heart Catheterization With Stent Additional Past Surgical History / Comment(s): Low back surgery, cervical surgery, R wrist carpal tunnel release, colonoscopy (not completed d/t poor prep ) about 10 yrs ago, EGD 01/2018 d/t abdominal pain. Past Anesthesia/Blood Transfusion Reactions: No Reported Reaction Additional Past Anesthesia/Blood Transfusion Reaction / Comment(s): Pt has clausterphobia. Date of Last Stent Placement:: 11/18/17 Smoking Status: Former smoker - Past Family History Father Additional Family Medical History / Comment(s): Father at age 91 from old age. Mother Additional Family Medical History / Comment(s): Mother at age 85 with history of lupus. Brother(s) Additional Family Medical History / Comment(s): Patient's siblings have history of coronary artery disease, diabetes, hypertension, macular degeneration. Daughter(s) Additional Family Medical History / Comment(s): Patient has 11 children; 6 daughters and 5 sons. 3 have and 2 from kidney failure and one was murdered. Sister(s) Additional Family Medical History / Comment(s): Pt had a sister live to be 102 yrs old. Medications and Allergies Home Medications Medication Instructions Recorded Confirmed Type Aspirin [Adult Low Dose Aspirin EC] 81 mg PO DAILY 11/21/17 01/13/19 History Famotidine [Pepcid] 20 mg PO DAILY 11/21/17 01/13/19 History Ranolazine [Ranexa] 1,000 mg PO Q12HR #60 tab.er.12h 11/25/17 01/13/19 Rx Atorvastatin [Lipitor] 40 mg PO DAILY 01/02/18 01/13/19 History Galantamine [Razadyne] 4 mg PO AC-BID 01/02/18 01/13/19 History metFORMIN HCL [Glucophage] 500 mg PO BID 02/02/18 01/13/19 History Escitalopram [Lexapro] 10 mg PO DAILY 12/20/18 01/13/19 History Potassium Chloride ER [K-Dur 10] 10 meq PO BID #60 tab 12/25/18 01/13/19 Rx amLODIPine [Norvasc] 10 mg PO DAILY #30 tab 12/25/18 01/13/19 Rx hydrALAZINE HCL [Apresoline] 50 mg PO TID #90 tab 12/25/18 01/13/19 Rx Clotrimazole Moe [Mycelex 10 mg MUCOUS MEM 5XD #15 moe 01/05/19 01/13/19 Rx Moe] Furosemide [Lasix] 80 mg PO BID@0900,1600 #60 tab 01/05/19 01/13/19 Rx Isosorbide Mononitrate ER [Imdur] 30 mg PO DAILY #30 tab.er.24h 01/05/19 Rx Spironolactone [Aldactone] 25 mg PO DAILY #30 tab 01/05/19 01/13/19 Rx Clopidogrel [Plavix] 75 mg PO DAILY 01/13/19 01/13/19 History Hydrochlorothiazide [Hydrodiuril] 25 mg PO DAILY 01/13/19 01/13/19 History Lisinopril 20 mg PO DAILY 01/13/19 01/13/19 History Metoprolol Tartrate [Lopressor] 50 mg PO TID 01/13/19 01/13/19 History Ondansetron [Zofran] 4 mg PO Q8HR PRN 01/13/19 01/13/19 History Allergies Allergy/AdvReac Type Severity Reaction Status Date / Time hydrocodone [From Branscomb] Allergy Rash/Hives Verified 01/13/19 10:25 naproxen sodium [From Aleve] Allergy Itching,bessie Verified 01/13/19 10:25 h glimepiride [From Amaryl] AdvReac Nausea & Verified 01/13/19 10:25 Vomiting Physical Exam Vitals: Vital Signs Temp Pulse Resp BP Pulse Ox 01/13/19 13:19 60 16 122/59 100 01/13/19 12:24 133/54 01/13/19 12:02 61 14 89/46 98 01/13/19 09:34 98.2 F 58 L 18 112/48 97 Intake and Output 01/12/19 01/13/19 01/13/19 22:59 06:59 14:59 Other: Weight 69.4 kg Results - Lab Results Most recent lab results Calcium 9.7 mg/dL (8.4-10.2) 01/13/19 09:50 01/13/19 09:50 01/13/19 09:50 Assessment and Plan Plan: Assessment: 1. Acute kidney injury mostly prerenal secondary to intravascular volume depletion from vomiting and diarrhea and further worsened with the use of diuretics. Creatinine 2.54 on admission today. No proteinuria on UA. No significant hydronephrosis on CAT scan. 2. Hypovolemic hyponatremia. 3. Hyperkalemia secondary to acute kidney injury and metabolic acidosis. Additionally she was on Aldactone and potassium supplementation at home. However this was a hemolyzed sample. 4. Metabolic acidosis secondary to acute kidney injury and diarrhea. 5. Diabetes mellitus. 6. History of diastolic CHF. 7. Nausea vomiting and diarrhea possibly related to viral gastroenteritis. Plan: Increase rate of normal saline to 75 mL an hour. Recheck potassium level now. Avoid nephrotoxins. Hold antihypertensives including diuretics. Repeat electrolytes in the morning. Thank you for the consultation. I will continue to follow the patient with you during her hospital stay.
--- NOTE | 2019-01-13 16:32 | US ---
EXAMINATION TYPE: US abd limited kidneys/bladder DATE OF EXAM: 01/13/2019 COMPARISON: CT 01/13/2019 CLINICAL HISTORY: Pain. EXAM MEASUREMENTS: Liver Length: 14.0 cm Gallbladder Wall: Surgically absent cm CBD: 1.2 cm Right Kidney: 9.3 x 4.1 x 4.6 cm Left Kidney: 9.5 x 4.7 x 4.1 cm Pancreas: Tail obscured by overlying bowel gas, visualized portions wnl Liver: wnl Gallbladder: Surgically absent CBD: Dilated Right Kidney: Hydronephrosis Left Kidney: No hydronephrosis. unable to visualize area seen on CT today Bladder: wnl Bilateral Jets Seen Right jet visualized There is no ascites. IMPRESSION: Exam is somewhat limited. Status post cholecystectomy. Right kidney shows mild pelvic jadyn iectasis. Dilation of the common bile duct likely due to postcholecystectomy change. Upper pole left renal lesion is not correlated on today's exam there is likely to represent cyst, follow-up could be performed to assess for stability.
[2019-01-13] MEDS: METOPROLOL TARTRATE 50 MG TAB PO SCH ×2 (16:58→22:19)
[2019-01-13] MEDS: hydrALAZINE HCL 50 MG TAB PO SCH ×2 (16:58→22:19)
[2019-01-13] MEDS: CLOTRIMAZOLE TROCHE 10 MG TROCHE MUCOUS MEM SCH ×3 (16:59→23:28)
[2019-01-13 17:29] LABS: Glucose,Whole Blood 150 mg/dL (75-99)
[2019-01-13 20:14] LABS: Glucose,Whole Blood 136 mg/dL (75-99)
[2019-01-13] MEDS: RANOLAZINE 500 MG TAB.ER.12H PO SCH (21:47)
[2019-01-14] MEDS: CLOTRIMAZOLE TROCHE 10 MG TROCHE MUCOUS MEM SCH ×5 (05:39→23:33)
[2019-01-14 07:03] LABS: Glucose,Whole Blood 140 mg/dL (75-99)
[2019-01-14 07:45] LABS: Basophils # (A) 0.1 k/uL (0-0.2); Basophils % (A) 1 %; Eosinophils # (A) 0.3 k/uL (0-0.7); Eosinophils % (A) 4 %; HCT 33.5 % (34.0-46.0); Lymphocytes # (A) 1.3 k/uL (1.0-4.8); Lymphocytes % (A) 20 %; MCH 31.3 pg (25.0-35.0); MCHC 32.8 g/dL (31.0-37.0); MCV 95.4 fL (80.0-100.0); Mean Platelet Volume 6.8; Monocytes # (A) 0.4 k/uL (0-1.0); Monocytes % (A) 7 %; Neutrophils # (A) 4.1 k/uL (1.3-7.7); Neutrophils % (A) 65 %; Platelet Count 355 k/uL (150-450); RBC 3.51 m/uL (3.80-5.40); RDW 13.4 % (11.5-15.5); WBC 6.2 k/uL (3.8-10.6)
[2019-01-14 07:53] LABS: Albumin 3.3 g/dL (3.5-5.0); Calcium 9.4 mg/dL (8.4-10.2); Potassium 4.9 mmol/L (3.5-5.1); Total Bilirubin 0.9 mg/dL (0.2-1.3); Total Protein 5.5 g/dL (6.3-8.2)
[2019-01-14] MEDS: SODIUM CHLORIDE 0.9% 1,000 ML IV SCH ×2 (09:37→14:35)
[2019-01-14] MEDS: DONEPEZIL 5 MG TAB PO SCH (09:43)
[2019-01-14] MEDS: ESCITALOPRAM 10 MG TAB PO SCH (09:43)
[2019-01-14] MEDS: hydrALAZINE HCL 50 MG TAB PO SCH ×3 (09:44→21:33)
[2019-01-14] MEDS: METOPROLOL TARTRATE 50 MG TAB PO SCH ×3 (09:45→21:33)
[2019-01-14] MEDS: amLODIPine 10 MG TAB PO SCH (09:45)
[2019-01-14] MEDS: RANOLAZINE 500 MG TAB.ER.12H PO SCH ×2 (09:46→21:33)
[2019-01-14] MEDS: ISOSORBIDE MONONITRATE ER 30 MG TAB.ER.24H PO SCH (09:50)
[2019-01-14] MEDS: ASPIRIN 81 MG PO SCH (09:50)
[2019-01-14] MEDS: FAMOTIDINE 20 MG TAB PO SCH (09:50)
[2019-01-14] MEDS: ATORVASTATIN 40 MG TAB PO SCH (09:50)
--- NOTE | 2019-01-14 10:45 | P.PN ---
Subjective Progress Note Date: 01/14/19 88-year-old female one of Dr. Sales's patient who was in to have history of coronary disease, CVA, diabetes, history of GI bleed, previous history of ND and chronic kidney disease who was hospitalized between December 28 -December with exacerbation of diastolic dysfunction congestive heart failure acute on chronic was treated stabilized and felt well patient ended up going home with home care and slight more help with family. She presented to demurs department at [facility] today with 5 days worsening abdominal pain nausea vomiting and diarrhea become much worse the last 2 days not been able to keep any food or fluid down end up coming with acute kidney failure acute kidney injury along with acute pancreatitis and possible acute gastrointestinal bleed. Patient lipase was elevated, BUN/ creatinine was quite bit elevated compared to her discharge. Patient has not noticed any black stool declined any history of influenza in her family. Flu was requested, CT of the abdomen and pelvis showed nonspecific finding with 3 mild right-sided hydronephrosis with diverticuli no major finding in the pancreas and the liver area. Clinically patient had severe gastroenteritis, gastritis and acute pancreatitis with worsening GI bleed and subacute abdominal pain. 3/2: Patient states that she has no more nausea or vomiting. She is not eating very much. Jenny member states that she does complain of some jabbing pain in left side of her abdomen in the past but she denies any at this time. She has occasional shortness of breath. She has been afebrile, pulse ox 98% on 2 L, heart rate running in the 50s and 60s, blood pressure 115/40. Renal ultrasound did show right kidney shows mild pelvic caliectasis. Dilatation of the common bile duct likely due to postcholecystectomy change. Upper pole left renal lesion is not correlated on today's exam may represent cyst. Hydronephrosis on the right side. No hydronephrosis on the left. Consult added for urology. Patient has been seen by nephrology and recommends IV fluids at 75 recheck potassium avoid nephrotoxic agents and hold antihypertensives including diuretics. Repeat hemoglobin 11, BUN 96 and creatinine 2.19, sodium 134. Influenza testing negative. Repeat lipase 520. Diet is to be advanced to full liquids. Review of Systems CONSTITUTIONAL: No fever no chills. EYES: No icterus sclerae, no conjunctivitis. EARS, NOSE, MOUTH, THROAT, and FACE: No sore throat, lymphadenopathy, carotid bruits or deformity. RESPIRATORY: Occasional SOB cough or wheezes. CARDIOVASCULAR: No palpitation, PND orthopnea with no angina. GASTROINTESTINAL: No abdominal pain now nausea and vomiting now diarrhea. GENITOURINARY: Negative for Hematuria or UTI, no kidney stones. Significant decrease urine output. INTEGUMENT/BREAST: Negative for any muscular injury with mild osteoarthritis.. HEMATOLOGIC/LYMPHATIC: Negative for bleed or purpura. MUSCULOSKELTAL: Negative for Myalgia or arthralgia. NEURLOGICAL: No LOC, Sz or syncope, blurred vision dizziness or abnormality.. BEHAVIORAL/PSYCH: Negative. ENDOCRINE: Negative. Objective - Vital Signs Vital signs: Vital Signs Temp 98.1 F 01/14/19 04:29 Pulse 54 L 01/14/19 04:29 Resp 16 01/14/19 04:29 BP 115/40 01/14/19 04:29 Pulse Ox 98 01/14/19 04:29 Intake & Output 01/13/19 01/14/19 01/14/19 18:59 06:59 18:59 Weight 69.4 kg 70.2 kg Other: Voiding Method Bedside Commode Bedside Commode # Voids 1 2 # Bowel Movements 1 - Exam General Appearance: Alert, cooperative, no distress, appears stated age. Patient is sitting in a chair at the bedside. Granddaughter is with her. Neck HEENT: Supple, no lymphadenopathy, no thyroid enlargement, no carotid bruits. Lungs: Clear to auscultation without crackles or wheezes no rhonchi, no deformity. Chest Wall: Chest wall normal expansion with deep inspiration no tenderness and no deformity was found on exam, no costochondral pain or discomfort. Heart: Regular rate and rhythm, S1, S2 normal, no murmur, rub or gallop. Positive JVD with systolic murmur. Back: Symmetric, no curvature, ROM normal, no CVA tenderness. Abdomen: Soft, no abdominal tenderness, no rebound rigidity or masses. Extremities: Extremities normal, atraumatic, no cyanosis or edema. Pulses: 2+ and symmetric. Skin: Skin color, texture, tugor normal, no rashes or lesions. Neurologic: Alert oriented x3 cranial nerves II through XII intact, no motor deficit, no abnormal balance or gait. - Labs CBC & Chem 7: 01/14/19 07:04 01/14/19 07:04 Labs: Abnormal Lab Results - Last 24 Hours (Table) 01/13/19 01/13/19 01/13/19 Range/Units 09:50 09:50 09:50 Neutrophils # 8.3 H (1.3-7.7) k/uL Sodium 129 L (137-145) mmol/L Potassium 5.9 H (3.5-5.1) mmol/L Chloride 91 L (98-107) mmol/L Carbon Dioxide 19 L (22-30) mmol/L BUN 108 H* (7-17) mg/dL Creatinine 2.54 H (0.52-1.04) mg/dL Glucose 191 H (74-99) mg/dL POC Glucose (mg/dL) (75-99) mg/dL Lipase 545 H (23-300) U/L Urine Appearance Cloudy H (Clear) Ur Leukocyte Esterase Small H (Negative) Urine WBC 18 H (0-5) /hpf Urine WBC Clumps Few H (None) /hpf Amorphous Sediment Rare H (None) /hpf Urine Bacteria Moderate H (None) /hpf Hyaline Casts 3 H (0-2) /lpf Urine Mucus Rare H (None) /hpf 01/13/19 01/13/19 01/14/19 Range/Units 17:24 20:12 07:02 Neutrophils # (1.3-7.7) k/uL Sodium (137-145) mmol/L Potassium (3.5-5.1) mmol/L Chloride (98-107) mmol/L Carbon Dioxide (22-30) mmol/L BUN (7-17) mg/dL Creatinine (0.52-1.04) mg/dL Glucose (74-99) mg/dL POC Glucose (mg/dL) 150 H 136 H 140 H (75-99) mg/dL Lipase (23-300) U/L Urine Appearance (Clear) Ur Leukocyte Esterase (Negative) Urine WBC (0-5) /hpf Urine WBC Clumps (None) /hpf Amorphous Sediment (None) /hpf Urine Bacteria (None) /hpf Hyaline Casts (0-2) /lpf Urine Mucus (None) /hpf Microbiology - Last 24 Hours (Table) 01/13/19 09:50 Urine Culture - Preliminary Urine,Catheterized Assessment and Plan Plan: 1. Acute abdominal pain: Combination of pancreatitis, gastroenteritis. No signs of GI bleed. Continue IV fluids, diet advanced to full liquids. 2. Acute kidney injury with hyperkalemia secondary to vomiting and diarrhea along with diuretics. Antihypertensives on hold, avoid nephrotoxic agents, continue IV fluids. Recheck lab work. Nephrology consult appreciated. Amlodipine, hydralazine, metoprolol are on hold. Lisinopril discontinued. 3. Hypovolemic hyponatremia. Recheck lab work. 4. Metabolic acidosis secondary to acute kidney injury and diarrhea. Monitor, continue IV fluids, slowly advance diet. 5. Chronic diastolic heart failure. Lasix is on hold. 6. Diabetes mellitus type 2. Metformin on hold. Continue NovoLog scale before meals and at bedtime. 7. Acute GI bleed doubtful as patient has not had a drop in her hemoglobin. Continue PPI. Continue Plavix and aspirin. 8. Vascular dementia. Continue Aricept. 9. Hypertension and hypertensive cardiovascular disease. Antihypertensive medications on hold. 10. Recent lower GI bleed likely diverticular bleed however diverticulitis or neoplasm cannot be entirely ruled out. 11. Hyperlipidemia. Continue atorvastatin. 12. Generalized anxiety disorder and recurrent depression, stable. Continue Lexapro 10 mg daily 13. History of coronary artery disease. Patient is on aspirin 81 mg daily, Lipitor 40 mg daily, Plavix 75 mg daily, Ranexa and Imdur. 14. DVT prophylaxis. Heparin SQ CODE STATUS: Full code. Discharge plan: To be determined Impression and plan of care have been directed as dictated by the signing physician. Donita Padron nurse practitioner acting as scribe for signing physician.
[2019-01-14 11:06] VITALS: BMI 29.2
[2019-01-14 11:36] LABS: Glucose,Whole Blood 205 mg/dL (75-99)
--- NOTE | 2019-01-14 12:29 | P.GSCN ---
History of Present Illness Consult date: 01/14/19 Reason for Consult: Right hydronephrosis History of present illness: The patient is an 88-year-old female who was admitted to the hospital with abdominal pain. She is interviewed at the bedside. I'm not totally certain how reliable the history is. History is taken from the chart as well as the patient. She states she's had abdominal pain for several weeks. It apparently became worse. She stated that she had left lower quadrant pain initially and then developed some right lower quadrant pain. A computed tomography scan of the abdomen identified diverticulosis and very mild right hydroureteronephrosis. She tells me that she had gross blood in the stool. He was question whether there is hematuria. He urinalysis did not show hematuria. She states that a year ago she is at [facility] was told that she passed a stone. I do not see any evidence of that on Dr. Michaud's history and physical nor review of systems. The computed tomography scan is reviewed by me identifying very mild hydroureteronephrosis. I do not see an obvious stone. She states her abdominal pain is now gone. Review of Systems - Constitutional Reports anorexia, Reports chronic pain - Gastrointestinal Reports as per HPI, Reports abdominal pain - Genitourinary Genitourinary: Reports as per HPI - Musculoskeletal Reports low back pain Past Medical History Past Medical History: Coronary Artery Disease (CAD), Heart Failure, CVA/TIA, Diabetes Mellitus, GI Bleed, Hyperlipidemia, Hypertension, Myocardial Infarction (NC), Renal Disease Additional Past Medical History / Comment(s): Pt recently admitted to [facility] on with lower GI bleed thought likely d/t diverticular disease, orthostatic hypotension and CHF. She then had another admission 12/28/18 with acute hypoxic and hypercapnic respiratory failure 2nday to acute on chroic CHF with bilateral pleural effusions with bilateral thoracentesis. She also had endometrial thickening, a presbyesophagus and thrush. 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 Last Myocardial Infarction Date:: 11/18/17 History of Any Multi-Drug Resistant Organisms: None Reported Past Surgical History: Appendectomy, Back Surgery, Cholecystectomy, Heart Catheterization With Stent Additional Past Surgical History / Comment(s): Low back surgery, cervical surgery, R wrist carpal tunnel release, colonoscopy (not completed d/t poor prep ) about 10 yrs ago, EGD 01/2018 d/t abdominal pain. Past Anesthesia/Blood Transfusion Reactions: No Reported Reaction Additional Past Anesthesia/Blood Transfusion Reaction / Comm: Pt has clausterphobia. Date of Last Stent Placement:: 11/18/17 Smoking Status: Former smoker - Past Family History Father Additional Family Medical History / Comment(s): Father at age 91 from old age. Mother Additional Family Medical History / Comment(s): Mother at age 85 with history of lupus. Brother(s) Additional Family Medical History / Comment(s): Patient's siblings have history of coronary artery disease, diabetes, hypertension, macular degeneration. Daughter(s) Additional Family Medical History / Comment(s): Patient has 11 children; 6 daughters and 5 sons. 3 have and 2 from kidney failure and one was murdered. Sister(s) Additional Family Medical History / Comment(s): Pt had a sister live to be 102 yrs old. Medications and Allergies Home Medications Medication Instructions Recorded Confirmed Type Aspirin [Adult Low Dose Aspirin EC] 81 mg PO DAILY 11/21/17 01/13/19 History Famotidine [Pepcid] 20 mg PO DAILY 11/21/17 01/13/19 History Ranolazine [Ranexa] 1,000 mg PO Q12HR #60 tab.er.12h 11/25/17 01/13/19 Rx Atorvastatin [Lipitor] 40 mg PO DAILY 01/02/18 01/13/19 History Galantamine [Razadyne] 4 mg PO AC-BID 01/02/18 01/13/19 History metFORMIN HCL [Glucophage] 500 mg PO BID 02/02/18 01/13/19 History Escitalopram [Lexapro] 10 mg PO DAILY 12/20/18 01/13/19 History Potassium Chloride ER [K-Dur 10] 10 meq PO BID #60 tab 12/25/18 01/13/19 Rx amLODIPine [Norvasc] 10 mg PO DAILY #30 tab 12/25/18 01/13/19 Rx hydrALAZINE HCL [Apresoline] 50 mg PO TID #90 tab 12/25/18 01/13/19 Rx Clotrimazole Bobby [Mycelex 10 mg MUCOUS MEM 5XD #15 bobby 01/05/19 01/13/19 Rx Bobby] Furosemide [Lasix] 80 mg PO BID@0900,1600 #60 tab 01/05/19 01/13/19 Rx Isosorbide Mononitrate ER [Imdur] 30 mg PO DAILY #30 tab.er.24h 01/05/19 Rx Spironolactone [Aldactone] 25 mg PO DAILY #30 tab 01/05/19 01/13/19 Rx Clopidogrel [Plavix] 75 mg PO DAILY 01/13/19 01/13/19 History Hydrochlorothiazide [Hydrodiuril] 25 mg PO DAILY 01/13/19 01/13/19 History Lisinopril 20 mg PO DAILY 01/13/19 01/13/19 History Metoprolol Tartrate [Lopressor] 50 mg PO TID 01/13/19 01/13/19 History Ondansetron [Zofran] 4 mg PO Q8HR PRN 01/13/19 01/13/19 History Allergies Allergy/AdvReac Type Severity Reaction Status Date / Time hydrocodone [From [place]] Allergy Rash/Hives Verified 01/13/19 10:25 naproxen sodium [From Aleve] Allergy Itching,bessie Verified 01/13/19 10:25 h glimepiride [From Amaryl] AdvReac Nausea & Verified 01/13/19 10:25 Vomiting Surgical - Exam Vital Signs Temp Pulse Resp BP Pulse Ox 98.2 F 58 L 18 112/48 97 01/13/19 09:34 01/13/19 09:34 01/13/19 09:34 01/13/19 09:34 01/13/19 09:34 - General well developed, well nourished, no distress - Eyes PERRL - ENT no hearing loss - Neck trachea midline - Respiratory normal expansion, normal respiratory effort - Cardiovascular Rhythm: regular - Abdomen Abdomen: soft, non tender - Integumentary no growths - Neurologic normal coordination, normal sensation - Psychiatric oriented to person, oriented to place, memory intact Results - Labs 01/14/19 07:04 01/14/19 07:04 Abnormal Lab Results - Last 24 Hours (Table) 01/13/19 01/13/19 01/14/19 Range/Units 17:24 20:12 07:02 RBC (3.80-5.40) m/uL Hgb (11.4-16.0) gm/dL Hct (34.0-46.0) % Sodium (137-145) mmol/L BUN (7-17) mg/dL Creatinine (0.52-1.04) mg/dL Glucose (74-99) mg/dL POC Glucose (mg/dL) 150 H 136 H 140 H (75-99) mg/dL Total Protein (6.3-8.2) g/dL Albumin (3.5-5.0) g/dL Lipase (23-300) U/L 01/14/19 01/14/19 01/14/19 Range/Units 07:04 07:04 11:35 RBC 3.51 L (3.80-5.40) m/uL Hgb 11.0 L (11.4-16.0) gm/dL Hct 33.5 L (34.0-46.0) % Sodium 134 L (137-145) mmol/L BUN 96 H (7-17) mg/dL Creatinine 2.19 H (0.52-1.04) mg/dL Glucose 140 H (74-99) mg/dL POC Glucose (mg/dL) 205 H (75-99) mg/dL Total Protein 5.5 L (6.3-8.2) g/dL Albumin 3.3 L (3.5-5.0) g/dL Lipase 520 H (23-300) U/L Microbiology - Last 24 Hours (Table) 01/13/19 09:50 Urine Culture - Preliminary Urine,Catheterized Diabetes panel 01/13/19 01/14/19 Range/Units 14:21 07:04 Sodium 134 L (137-145) mmol/L Potassium 4.9 4.9 (3.5-5.1) mmol/L Chloride 101 (98-107) mmol/L Carbon Dioxide 22 (22-30) mmol/L BUN 96 H (7-17) mg/dL Creatinine 2.19 H (0.52-1.04) mg/dL Glucose 140 H (74-99) mg/dL Calcium 9.4 (8.4-10.2) mg/dL AST 23 (14-36) U/L ALT 28 (9-52) U/L Alkaline Phosphatase 67 (38-126) U/L Total Protein 5.5 L (6.3-8.2) g/dL Albumin 3.3 L (3.5-5.0) g/dL Calcium panel 01/14/19 Range/Units 07:04 Calcium 9.4 (8.4-10.2) mg/dL Albumin 3.3 L (3.5-5.0) g/dL Pituitary panel 01/13/19 01/14/19 Range/Units 14:21 07:04 Sodium 134 L (137-145) mmol/L Potassium 4.9 4.9 (3.5-5.1) mmol/L Chloride 101 (98-107) mmol/L Carbon Dioxide 22 (22-30) mmol/L BUN 96 H (7-17) mg/dL Creatinine 2.19 H (0.52-1.04) mg/dL Glucose 140 H (74-99) mg/dL Calcium 9.4 (8.4-10.2) mg/dL Adrenal panel 01/13/19 01/14/19 Range/Units 14:21 07:04 Sodium 134 L (137-145) mmol/L Potassium 4.9 4.9 (3.5-5.1) mmol/L Chloride 101 (98-107) mmol/L Carbon Dioxide 22 (22-30) mmol/L BUN 96 H (7-17) mg/dL Creatinine 2.19 H (0.52-1.04) mg/dL Glucose 140 H (74-99) mg/dL Calcium 9.4 (8.4-10.2) mg/dL Total Bilirubin 0.9 (0.2-1.3) mg/dL AST 23 (14-36) U/L ALT 28 (9-52) U/L Alkaline Phosphatase 67 (38-126) U/L Total Protein 5.5 L (6.3-8.2) g/dL Albumin 3.3 L (3.5-5.0) g/dL - Imaging CT scan - abdomen: report reviewed, image reviewed CT scan - pelvis: report reviewed, image reviewed US - kidney/bladder: report reviewed, image reviewed Assessment and Plan Assessment: Impression: Abdominal pain indeterminate etiology possible GI possible . Very mild hydroureteronephrosis acute versus chronic. Possible history of ureteral calculus. Recommendations: I'm uncertain as to how reliable this history is. Most importantly however his abdominal pain is gone. The significance of the minimal hydronephrosis is indeterminate but based on its appearance and not concerned. If further urologic care is required please feel free to contact me.
--- NOTE | 2019-01-14 13:31 | P.PN ---
Subjective Progress Note Date: 01/14/19 Seen and examined for the follow-up of acute kidney injury. Objective - Vital Signs Vital signs: Vital Signs Temp 97.6 F 01/14/19 11:56 Pulse 64 01/14/19 11:56 Resp 16 01/14/19 11:56 BP 127/64 01/14/19 11:56 Pulse Ox 96 01/14/19 11:56 Intake & Output 01/13/19 01/14/19 01/14/19 18:59 06:59 18:59 Weight 69.4 kg 70.2 kg 70.2 kg Other: Voiding Method Bedside Commode Bedside Commode Bedside Commode # Voids 1 2 # Bowel Movements 1 - Exam Lying in bed no acute distress S1-S2 heard Lungs clear No edema - Labs CBC & Chem 7: 01/14/19 07:04 01/14/19 07:04 Labs: Abnormal Lab Results - Last 24 Hours (Table) 01/13/19 01/13/19 01/14/19 Range/Units 17:24 20:12 07:02 RBC (3.80-5.40) m/uL Hgb (11.4-16.0) gm/dL Hct (34.0-46.0) % Sodium (137-145) mmol/L BUN (7-17) mg/dL Creatinine (0.52-1.04) mg/dL Glucose (74-99) mg/dL POC Glucose (mg/dL) 150 H 136 H 140 H (75-99) mg/dL Total Protein (6.3-8.2) g/dL Albumin (3.5-5.0) g/dL Lipase (23-300) U/L 01/14/19 01/14/19 01/14/19 Range/Units 07:04 07:04 11:35 RBC 3.51 L (3.80-5.40) m/uL Hgb 11.0 L (11.4-16.0) gm/dL Hct 33.5 L (34.0-46.0) % Sodium 134 L (137-145) mmol/L BUN 96 H (7-17) mg/dL Creatinine 2.19 H (0.52-1.04) mg/dL Glucose 140 H (74-99) mg/dL POC Glucose (mg/dL) 205 H (75-99) mg/dL Total Protein 5.5 L (6.3-8.2) g/dL Albumin 3.3 L (3.5-5.0) g/dL Lipase 520 H (23-300) U/L Microbiology - Last 24 Hours (Table) 01/13/19 09:50 Urine Culture - Preliminary Urine,Catheterized Assessment and Plan Assessment: #1 acute kidney injury secondary to prerenal process from volume depletion from diarrhea. Mild hydronephrosis noted on renal ultrasound. #2 hypovolemic hyponatremia improved #3 metabolic acidosis #4 diastolic CHF #5 low normal blood pressures. Plan: #1 continue with IV fluids. Renal functions improving. #2 appreciate surgical input regarding hydronephrosis. #3 avoid nephrotoxic agents and hypotensive episodes #4 if renal function does not improve might benefit from surgical intervention to decompress the hydronephrosis.
[2019-01-14 17:12] LABS: Glucose,Whole Blood 169 mg/dL (75-99)
--- NOTE | 2019-01-14 17:14 | P.CRDCN ---
History of Present Illness Consult date: 01/14/19 History of present illness: This is a 88-year-old female with history of coronary artery disease, previous CVA and also previous myocardial infarction who was in the hospital between December 28 the 2018 for exacerbation of diastolic CHF. She was stabilized and was sent home on medical therapy. Patient is now admitted to the hospital with increasing shortness of breath, abdominal pain, nausea and vomiting along with the diarrhea off about 3-5 days duration. Patient was found to have acute renal failure and evidence of dehydration. Patient also has elevation of lipase. There is suggestion of possible GI bleeding. Patient had a computed tomography scan of the abdomen and pelvis which showed nonspecific abnormalities. Patient is still complaining of some abdominal discomfort. Denies any significant chest pain or shortness of breath. Her BUN/ creatinine are gradually improving. She seems to be little more stable at this time. Her Lasix, lisinopril, and also Aldactone were held. Patient had a cardiac catheterization recently and was found to have patent stent in the LAD with a severe disease involving circumflex and ostium of the PDA. Echo cardiogram done recently showed preserved LV function with mild aortic stenosis. Review of Systems As per the chart Past Medical History Past Medical History: Coronary Artery Disease (CAD), Heart Failure, CVA/TIA, Diabetes Mellitus, GI Bleed, Hyperlipidemia, Hypertension, Myocardial Infarction ([place]), Renal Disease Additional Past Medical History / Comment(s): Pt recently admitted to [facility] on with lower GI bleed thought likely d/t diverticular disease, orthostatic hypotension and CHF. She then had another admission 12/28/18 with acute hypoxic and hypercapnic respiratory failure 2nday to acute on chroic CHF with bilateral pleural effusions with bilateral thoracentesis. She also had endometrial thickening, a presbyesophagus and thrush. 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 Last Myocardial Infarction Date:: 11/18/17 History of Any Multi-Drug Resistant Organisms: None Reported Past Surgical History: Appendectomy, Back Surgery, Cholecystectomy, Heart Catheterization With Stent Additional Past Surgical History / Comment(s): Low back surgery, cervical surgery, R wrist carpal tunnel release, colonoscopy (not completed d/t poor prep ) about 10 yrs ago, EGD 01/2018 d/t abdominal pain. Past Anesthesia/Blood Transfusion Reactions: No Reported Reaction Additional Past Anesthesia/Blood Transfusion Reaction / Comment(s): Pt has clausterphobia. Date of Last Stent Placement:: 11/18/17 Smoking Status: Former smoker - Past Family History Father Additional Family Medical History / Comment(s): Father at age 91 from old age. Mother Additional Family Medical History / Comment(s): Mother at age 85 with history of lupus. Brother(s) Additional Family Medical History / Comment(s): Patient's siblings have history of coronary artery disease, diabetes, hypertension, macular degeneration. Daughter(s) Additional Family Medical History / Comment(s): Patient has 11 children; 6 daughters and 5 sons. 3 have and 2 from kidney failure and one was murdered. Sister(s) Additional Family Medical History / Comment(s): Pt had a sister live to be 102 yrs old. Medications and Allergies Home Medications Medication Instructions Recorded Confirmed Type Aspirin [Adult Low Dose Aspirin EC] 81 mg PO DAILY 11/21/17 01/13/19 History Famotidine [Pepcid] 20 mg PO DAILY 11/21/17 01/13/19 History Ranolazine [Ranexa] 1,000 mg PO Q12HR #60 tab.er.12h 11/25/17 01/13/19 Rx Atorvastatin [Lipitor] 40 mg PO DAILY 01/02/18 01/13/19 History Galantamine [Razadyne] 4 mg PO AC-BID 01/02/18 01/13/19 History metFORMIN HCL [Glucophage] 500 mg PO BID 02/02/18 01/13/19 History Escitalopram [Lexapro] 10 mg PO DAILY 12/20/18 01/13/19 History Potassium Chloride ER [K-Dur 10] 10 meq PO BID #60 tab 12/25/18 01/13/19 Rx amLODIPine [Norvasc] 10 mg PO DAILY #30 tab 12/25/18 01/13/19 Rx hydrALAZINE HCL [Apresoline] 50 mg PO TID #90 tab 12/25/18 01/13/19 Rx Clotrimazole Bobby [Mycelex 10 mg MUCOUS MEM 5XD #15 bobby 01/05/19 01/13/19 Rx Bobby] Furosemide [Lasix] 80 mg PO BID@0900,1600 #60 tab 01/05/19 01/13/19 Rx Isosorbide Mononitrate ER [Imdur] 30 mg PO DAILY #30 tab.er.24h 01/05/19 Rx Spironolactone [Aldactone] 25 mg PO DAILY #30 tab 01/05/19 01/13/19 Rx Clopidogrel [Plavix] 75 mg PO DAILY 01/13/19 01/13/19 History Hydrochlorothiazide [Hydrodiuril] 25 mg PO DAILY 01/13/19 01/13/19 History Lisinopril 20 mg PO DAILY 01/13/19 01/13/19 History Metoprolol Tartrate [Lopressor] 50 mg PO TID 01/13/19 01/13/19 History Ondansetron [Zofran] 4 mg PO Q8HR PRN 01/13/19 01/13/19 History Allergies Allergy/AdvReac Type Severity Reaction Status Date / Time hydrocodone [From [place]] Allergy Rash/Hives Verified 01/13/19 10:25 naproxen sodium [From Aleve] Allergy Itching,bessie Verified 01/13/19 10:25 h glimepiride [From Amaryl] AdvReac Nausea & Verified 01/13/19 10:25 Vomiting Physical Exam Vitals: Vital Signs Temp Pulse Resp BP Pulse Ox 01/14/19 11:56 97.6 F 64 16 127/64 96 01/14/19 04:29 98.1 F 54 L 16 115/40 98 01/14/19 00:00 66 18 01/13/19 21:00 98.1 F 66 18 133/53 99 Intake and Output 01/14/19 01/14/19 01/14/19 06:59 14:59 22:59 Intake Total 600 Balance 600 Intake: Intake, IV Titration 600 Amount Sodium Chloride 0.9% 1, 600 000 ml @ 75 mls/hr IV . [id number] [facility] Rx#:[id number] Other: Voiding Method Bedside Commode Bedside Commode # Voids 2 2 # Bowel Movements 1 Weight 70.2 kg 70.2 kg GENERAL EXAM: Patient is alert and oriented and doesn't appear to be in any acute distress HEENT: Normocephalic. Normal reaction of pupils, equal size, normal range of extraocular motion. No erythema or exudates in the throat. NECK: No masses, no nuchal rigidity. CHEST: No chest wall deformity. LUNGS: Accept default HEART: S1 and S2 normal with systolic murmur heard in the aortic area.. ABDOMEN: No hepatosplenomegaly, normal bowel sounds, no guarding or rigidity. SKIN: No rashes CENTRAL NERVOUS SYSTEM: No focal deficits. EXTREMITIES: No cyanosis, clubbing or edema. Results 01/14/19 07:04 01/14/19 07:04 Cardiac Enzymes 01/14/19 Range/Units 07:04 AST 23 (14-36) U/L CBC 01/14/19 Range/Units 07:04 WBC 6.2 (3.8-10.6) k/uL RBC 3.51 L (3.80-5.40) m/uL Hgb 11.0 L (11.4-16.0) gm/dL Hct 33.5 L (34.0-46.0) % Plt Count 355 (150-450) k/uL Comprehensive Metabolic Panel 01/14/19 Range/Units 07:04 Sodium 134 L (137-145) mmol/L Potassium 4.9 (3.5-5.1) mmol/L Chloride 101 (98-107) mmol/L Carbon Dioxide 22 (22-30) mmol/L BUN 96 H (7-17) mg/dL Creatinine 2.19 H (0.52-1.04) mg/dL Glucose 140 H (74-99) mg/dL Calcium 9.4 (8.4-10.2) mg/dL AST 23 (14-36) U/L ALT 28 (9-52) U/L Alkaline Phosphatase 67 (38-126) U/L Total Protein 5.5 L (6.3-8.2) g/dL Albumin 3.3 L (3.5-5.0) g/dL Current Medications Generic Name Dose Route Start Last Admin Trade Name Freq PRN Reason Stop Dose Admin Amlodipine Besylate 10 mg 01/14/19 09:00 01/14/19 09:45 Norvasc PO Not Given DAILY [facility] Aspirin 81 mg 01/14/19 09:00 01/14/19 09:50 Aspirin PO 81 mg DAILY [facility] Administration Atorvastatin Calcium 40 mg 01/14/19 09:00 01/14/19 09:50 Lipitor PO 40 mg DAILY [facility] Administration Clopidogrel Bisulfate 75 mg 01/15/19 09:00 Plavix PO DAILY [facility] Clotrimazole 10 mg 01/13/19 16:00 01/14/19 09:43 Mycelex Bobby MUCOUS MEM 10 mg 5XD [facility] Administration Donepezil HCl 5 mg 01/14/19 09:00 01/14/19 09:43 Aricept PO 5 mg DAILY [facility] Administration Escitalopram Oxalate 10 mg 01/14/19 09:00 01/14/19 09:43 Lexapro PO 10 mg DAILY [facility] Administration Famotidine 20 mg 01/14/19 09:00 01/14/19 09:50 Pepcid PO 20 mg DAILY [facility] Administration Hydralazine HCl 50 mg 01/13/19 16:00 01/14/19 09:44 Apresoline PO Not Given TID [facility] Sodium Chloride 1,000 mls @ 75 mls/hr 01/13/19 12:45 01/14/19 14:35 Saline 0.9% IV 75 mls/hr .[id number] [facility] Administration Isosorbide Mononitrate 30 mg 01/14/19 09:00 01/14/19 09:50 Imdur PO 30 mg DAILY [facility] Administration Metoprolol Tartrate 50 mg 01/13/19 16:00 01/14/19 09:45 Lopressor PO Not Given TID [facility] Naloxone HCl 0.2 mg 01/13/19 12:07 Narcan IV Q2M PRN Opioid Reversal Ondansetron HCl 4 mg 01/13/19 13:34 01/14/19 15:11 Zofran PO 4 mg Q8HR PRN Administration Nausea Ranolazine 1,000 mg 01/13/19 21:00 01/14/19 09:46 Ranexa PO 1,000 mg Q12HR [facility] Administration Intake and Output 01/14/19 01/14/19 01/14/19 06:59 14:59 22:59 Intake Total 600 Balance 600 Intake: Intake, IV Titration 600 Amount Sodium Chloride 0.9% 1, 600 000 ml @ 75 mls/hr IV . [id number] [facility] Rx#:[id number] Other: Voiding Method Bedside Commode Bedside Commode # Voids 2 2 # Bowel Movements 1 Weight 70.2 kg 70.2 kg Patient Weight 01/15/19 06:59 Weight 70.2 kg 01/14/19 07:04 01/14/19 07:04 Assessment and Plan (1) CAD (coronary artery disease) Current Visit: Yes Status: Acute Code(s): I25.10 - ATHSCL HEART DISEASE OF [place] CORONARY ARTERY W/O ANG PCTRS SNOMED Code(s): 99491713 (2) Acute kidney injury Current Visit: Yes Status: Acute Code(s): N17.9 - ACUTE KIDNEY FAILURE, UNSPECIFIED SNOMED Code(s): 22556919 (3) Dehydration Current Visit: Yes Status: Acute Code(s): E86.0 - DEHYDRATION SNOMED Code( s): 51289741 (4) Congestive heart failure Current Visit: No Status: Acute Code(s): I50.9 - HEART FAILURE, UNSPECIFIED SNOMED Code(s): 67807789 (5) GI bleed Current Visit: No Status: Acute Code(s): K92.2 - GASTROINTESTINAL HEMORRHAGE , UNSPECIFIED SNOMED Code(s): 67888215 Plan: Patient is admitted with acute renal injury and/dehydration. Her diuretics and lisinopril have been held. There is improvement in her hydration and BUN/ creatinine. We'll continue current management. Once her BUN/creatinine are corrected. May start in small dose of diuretics. We'll follow
[2019-01-14 20:11] LABS: Glucose,Whole Blood 132 mg/dL (75-99)
[2019-01-15] MEDS ORDERED: FUROSEMIDE 40 MG TAB PO SCH (06:00)
[2019-01-15] MEDS: CLOTRIMAZOLE TROCHE 10 MG TROCHE MUCOUS MEM SCH ×5 (06:19→23:47)
[2019-01-15 06:56] LABS: HCT 34.8 % (34.0-46.0); HGB 11.3 gm/dL (11.4-16.0); MCH 31.7 pg (25.0-35.0); MCHC 32.4 g/dL (31.0-37.0); MCV 97.9 fL (80.0-100.0); Mean Platelet Volume 6.2; Platelet Count 319 k/uL (150-450); RBC 3.55 m/uL (3.80-5.40); RDW 13.4 % (11.5-15.5); WBC 6.1 k/uL (3.8-10.6)
[2019-01-15 07:02] LABS: Glucose,Whole Blood 178 mg/dL (75-99)
[2019-01-15 07:11] LABS: Albumin 3.4 g/dL (3.5-5.0); Calcium 9.4 mg/dL (8.4-10.2); Potassium 4.2 mmol/L (3.5-5.1)
[2019-01-15] MEDS: ASPIRIN 81 MG PO SCH (08:54)
[2019-01-15] MEDS: METOPROLOL TARTRATE 50 MG TAB PO SCH ×3 (08:54→21:17)
[2019-01-15] MEDS: ISOSORBIDE MONONITRATE ER 30 MG TAB.ER.24H PO SCH (08:54)
[2019-01-15] MEDS: FAMOTIDINE 20 MG TAB PO SCH (08:54)
[2019-01-15] MEDS: ATORVASTATIN 40 MG TAB PO SCH (08:54)
[2019-01-15] MEDS: CLOPIDOGREL 75 MG TAB PO SCH (08:54)
[2019-01-15] MEDS: RANOLAZINE 500 MG TAB.ER.12H PO SCH ×2 (08:55→21:23)
[2019-01-15] MEDS: ESCITALOPRAM 10 MG TAB PO SCH (08:55)
[2019-01-15] MEDS: DONEPEZIL 5 MG TAB PO SCH (08:56)
[2019-01-15] MEDS: hydrALAZINE HCL 50 MG TAB PO SCH ×3 (08:57→21:17)
[2019-01-15] MEDS: amLODIPine 10 MG TAB PO SCH (08:57)
[2019-01-15] MEDS ORDERED: SPIRONOLACTONE 25 MG TAB PO SCH (09:00)
[2019-01-15] MEDS ORDERED: LISINOPRIL 20 MG TAB PO SCH (09:00)
--- NOTE | 2019-01-15 11:06 | P.PN ---
Subjective Progress Note Date: 01/15/19 This is a 88-year-old female with history of ischemic or disease, previous CVA and also previous myocardial infarctions who is readmitted to the hospital with evidence of for acute renal failure and/dehydration. Patient was also found to have evidence of abdominal pain . Patient's diuretics were held. Her BUN/ creatinine gradually improving. Patient is feeling better. Her appetite is improving and patient is eating. We'll continue current measurements. We'll follow Objective - Vital Signs Vital signs: Vital Signs Temp 97.7 F 01/15/19 05:00 Pulse 66 01/15/19 05:00 Resp 17 01/15/19 05:00 BP 126/51 01/15/19 05:00 Pulse Ox 95 01/15/19 05:00 Intake & Output 01/14/19 01/15/19 01/15/19 18:59 06:59 18:59 Intake Total 600 1200 Output Total 800 Balance 600 400 Weight 70.2 kg 70.5 kg Intake: Intake, IV Titration 600 1200 Amount Sodium Chloride 0.9% 1, 600 1200 000 ml @ 75 mls/hr IV . [id number] [facility]CLUDES [facility] Rx#:[id number] Output: Urine 800 Other: Voiding Method Bedside Commode Bedside Commode Bedside Commode # Voids 2 1 # Bowel Movements 1 - Exam GENERAL EXAM: Patient is alert and oriented and doesn't appear to be in any acute distress HEENT: Normocephalic. Normal reaction of pupils, equal size, normal range of extraocular motion. No erythema or exudates in the throat. NECK: No masses, no nuchal rigidity. CHEST: No chest wall deformity. LUNGS: Equal air entry with no crackles or wheeze. HEART: S1 and S2 normal with no audible mumurs or gallops. Regular rhythm, femorals equal on both sides.. ABDOMEN: No hepatosplenomegaly, normal bowel sounds, no guarding or rigidity. SKIN: No rashes CENTRAL NERVOUS SYSTEM: No focal deficits. EXTREMITIES: No cyanosis, clubbing or edema. - Labs CBC & Chem 7: 01/15/19 06:09 01/15/19 06:09 Labs: Abnormal Lab Results - Last 24 Hours (Table) 01/14/19 01/14/19 01/14/19 Range/Units 11:35 17:11 20:09 RBC (3.80-5.40) m/uL Hgb (11.4-16.0) gm/dL BUN (7-17) mg/dL Creatinine (0.52-1.04) mg/dL Glucose (74-99) mg/dL POC Glucose (mg/dL) 205 H 169 H 132 H (75-99) mg/dL Total Protein (6.3-8.2) g/dL Albumin (3.5-5.0) g/dL Lipase (23-300) U/L 01/15/19 01/15/19 01/15/19 Range/Units 06:09 06:09 07:01 RBC 3.55 L (3.80-5.40) m/uL Hgb 11.3 L (11.4-16.0) gm/dL BUN 64 H (7-17) mg/dL Creatinine 1.54 H (0.52-1.04) mg/dL Glucose 161 H (74-99) mg/dL POC Glucose (mg/dL) 178 H (75-99) mg/dL Total Protein 6.0 L (6.3-8.2) g/dL Albumin 3.4 L (3.5-5.0) g/dL Lipase 441 H (23-300) U/L Microbiology - Last 24 Hours (Table) 01/13/19 09:50 Urine Culture - Preliminary Urine,Catheterized Gram Neg Bacilli Assessment and Plan (1) CAD (coronary artery disease) Current Visit: Yes Status: Acute Code(s): I25.10 - ATHSCL HEART DISEASE OF [place] CORONARY ARTERY W/O ANG PCTRS SNOMED Code(s): 38183238 (2) Acute kidney injury Current Visit: Yes Status: Acute Code(s): N17.9 - ACUTE KIDNEY FAILURE, UNSPECIFIED SNOMED Code(s): 15429166 (3) Dehydration Current Visit: Yes Status: Acute Code(s): E86.0 - DEHYDRATION SNOMED Code( s): 19285933 (4) Congestive heart failure Current Visit: No Status: Acute Code(s): I50.9 - HEART FAILURE, UNSPECIFIED SNOMED Code(s): 43090276 (5) GI bleed Current Visit: No Status: Acute Code(s): K92.2 - GASTROINTESTINAL HEMORRHAGE , UNSPECIFIED SNOMED Code(s): 74304351 Plan: Patient's BUN/creatinine are improving. Patient is eating better. Denies any chest pain or shortness of breath. Continue current measures. We'll follow
--- NOTE | 2019-01-15 11:15 | P.PN ---
Subjective Progress Note Date: 01/15/19 88-year-old female one of Dr. Sales's patient who was in to have history of coronary disease, CVA, diabetes, history of GI bleed, previous history of [place] and chronic kidney disease who was hospitalized between December 28 -December with exacerbation of diastolic dysfunction congestive heart failure acute on chronic was treated stabilized and felt well patient ended up going home with home care and slight more help with family. She presented to demurs [facility] at [facility] today with 5 days worsening abdominal pain nausea vomiting and diarrhea become much worse the last 2 days not been able to keep any food or fluid down end up coming with acute kidney failure acute kidney injury along with acute pancreatitis and possible acute gastrointestinal bleed. Patient lipase was elevated, BUN/ creatinine was quite bit elevated compared to her discharge. Patient has not noticed any black stool declined any history of influenza in her family. Flu was requested, CT of the abdomen and pelvis showed nonspecific finding with 3 mild right-sided hydronephrosis with diverticuli no major finding in the pancreas and the liver area. Clinically patient had severe gastroenteritis, gastritis and acute pancreatitis with worsening GI bleed and subacute abdominal pain. 3/2: Patient states that she has no more nausea or vomiting. She is not eating very much. Jenny member states that she does complain of some jabbing pain in left side of her abdomen in the past but she denies any at this time. She has occasional shortness of breath. She has been afebrile, pulse ox 98% on 2 L, heart rate running in the 50s and 60s, blood pressure 115/40. Renal ultrasound did show right kidney shows mild pelvic caliectasis. Dilatation of the common bile duct likely due to postcholecystectomy change. Upper pole left renal lesion is not correlated on today's exam may represent cyst. Hydronephrosis on the right side. No hydronephrosis on the left. Consult added for urology. Patient has been seen by nephrology and recommends IV fluids at 75 recheck potassium avoid nephrotoxic agents and hold antihypertensives including diuretics. Repeat hemoglobin 11, BUN 96 and creatinine 2.19, sodium 134. Influenza testing negative. Repeat lipase 520. Diet is to be advanced to full liquids. 3/3: Patient has been seen by cardiology. Plan to continue current management. Once renal function is improved a small dose of diuretics can be resumed. Repeat lab work shows hemoglobin 11.3, white count 6.1, BUN 64 and creatinine 1.54. Blood sugars have been running between 132 and 178. Lipase is 441. She has been afebrile, heart rate running in the 60s and 70s, blood pressure 126/51 , pulse ox 95% on room air. She is currently on a full liquid diet and will be advanced to a chopped diet. Patient had one diarrhea stool yesterday and a loose stool this morning. She denies any nausea or vomiting. Review of Systems CONSTITUTIONAL: No fever no chills. EYES: No icterus sclerae, no conjunctivitis. EARS, NOSE, MOUTH, THROAT, and FACE: No sore throat, lymphadenopathy, carotid bruits or deformity. RESPIRATORY: Occasional SOB cough or wheezes. CARDIOVASCULAR: No palpitation, PND orthopnea with no angina. GASTROINTESTINAL: No abdominal pain now nausea and vomiting no diarrhea. GENITOURINARY: Negative for Hematuria or UTI, no kidney stones. Significant decrease urine output. INTEGUMENT/BREAST: Negative for any muscular injury with mild osteoarthritis.. HEMATOLOGIC/LYMPHATIC: Negative for bleed or purpura. MUSCULOSKELTAL: Negative for Myalgia or arthralgia. NEURLOGICAL: No LOC, Sz or syncope, blurred vision dizziness or abnormality.. BEHAVIORAL/PSYCH: Negative. ENDOCRINE: Negative. Objective - Vital Signs Vital signs: Vital Signs Temp 97.7 F 01/15/19 05:00 Pulse 66 01/15/19 05:00 Resp 17 01/15/19 05:00 BP 126/51 01/15/19 05:00 Pulse Ox 95 01/15/19 05:00 Intake & Output 01/14/19 01/15/19 01/15/19 18:59 06:59 18:59 Intake Total 600 1200 Output Total 800 Balance 600 400 Weight 70.2 kg 70.5 kg Intake: Intake, IV Titration 600 1200 Amount Sodium Chloride 0.9% 1, 600 1200 000 ml @ 75 mls/hr IV . [id number] [facility] Rx#:[id number] Output: Urine 800 Other: Voiding Method Bedside Commode Bedside Commode # Voids 2 1 # Bowel Movements 1 - Exam General Appearance: Alert, cooperative, no distress, appears stated age. Patient is resting and bed. Neck HEENT: Supple, no lymphadenopathy, no thyroid enlargement, no carotid bruits. Lungs: Clear to auscultation without crackles or wheezes no rhonchi, no deformity. Chest Wall: Chest wall normal expansion with deep inspiration no tenderness and no deformity was found on exam, no costochondral pain or discomfort. Heart: Regular rate and rhythm, S1, S2 normal, no murmur, rub or gallop. Positive JVD with systolic murmur. Back: Symmetric, no curvature, ROM normal, no CVA tenderness. Abdomen: Soft, no abdominal tenderness, no rebound rigidity or masses. Extremities: Extremities normal, atraumatic, no cyanosis or edema. Pulses: 2+ and symmetric. Skin: Skin color, texture, tugor normal, no rashes or lesions. Neurologic: Alert oriented x3 cranial nerves II through XII intact, no motor deficit, no abnormal balance or gait. - Labs CBC & Chem 7: 01/15/19 06:09 01/15/19 06:09 Labs: Abnormal Lab Results - Last 24 Hours (Table) 01/14/19 01/14/19 01/14/19 Range/Units 07:04 11:35 17:11 RBC (3.80-5.40) m/uL Hgb (11.4-16.0) gm/dL Sodium 134 L (137-145) mmol/L BUN 96 H (7-17) mg/dL Creatinine 2.19 H (0.52-1.04) mg/dL Glucose 140 H (74-99) mg/dL POC Glucose (mg/dL) 205 H 169 H (75-99) mg/dL Total Protein 5.5 L (6.3-8.2) g/dL Albumin 3.3 L (3.5-5.0) g/dL Lipase 520 H (23-300) U/L 01/14/19 01/15/19 01/15/19 Range/Units 20:09 06:09 06:09 RBC 3.55 L (3.80-5.40) m/uL Hgb 11.3 L (11.4-16.0) gm/dL Sodium (137-145) mmol/L BUN 64 H (7-17) mg/dL Creatinine 1.54 H (0.52-1.04) mg/dL Glucose 161 H (74-99) mg/dL POC Glucose (mg/dL) 132 H (75-99) mg/dL Total Protein 6.0 L (6.3-8.2) g/dL Albumin 3.4 L (3.5-5.0) g/dL Lipase 441 H (23-300) U/L 01/15/19 Range/Units 07:01 RBC (3.80-5.40) m/uL Hgb (11.4-16.0) gm/dL Sodium (137-145) mmol/L BUN (7-17) mg/dL Creatinine (0.52-1.04) mg/dL Glucose (74-99) mg/dL POC Glucose (mg/dL) 178 H (75-99) mg/dL Total Protein (6.3-8.2) g/dL Albumin (3.5-5.0) g/dL Lipase (23-300) U/L Microbiology - Last 24 Hours (Table) 01/13/19 09:50 Urine Culture - Preliminary Urine,Catheterized Gram Neg Bacilli Assessment and Plan Plan: 1. Acute abdominal pain: Combination of pancreatitis, gastroenteritis. No signs of GI bleed. IV fluids decreased to 50 mL per hour80. Advance diet to chopped. 2. Acute kidney injury with hyperkalemia secondary to vomiting and diarrhea along with diuretics. Antihypertensives on hold, avoid nephrotoxic agents, continue IV fluids. Recheck lab work. Nephrology consult appreciated. Amlodipine, hydralazine, metoprolol are on hold. Lisinopril discontinued. 3. Hypovolemic hyponatremia. Recheck lab work. 4. Metabolic acidosis secondary to acute kidney injury and diarrhea. Monitor, continue IV fluids, slowly advance diet. 5. Chronic diastolic heart failure. Lasix is on hold. 6. Diabetes mellitus type 2. Metformin on hold. Continue NovoLog scale before meals and at bedtime. 7. Acute GI bleed doubtful as patient has not had a drop in her hemoglobin. Continue PPI. Continue Plavix and aspirin. 8. Vascular dementia. Continue Aricept. 9. Hypertension and hypertensive cardiovascular disease. Antihypertensive medications on hold. 10. Recent lower GI bleed likely diverticular bleed however diverticulitis or neoplasm cannot be entirely ruled out. 11. Hyperlipidemia. Continue atorvastatin. 12. Generalized anxiety disorder and recurrent depression, stable. Continue Lexapro 10 mg daily 13. History of coronary artery disease. Patient is on aspirin 81 mg daily, Lipitor 40 mg daily, Plavix 75 mg daily, Ranexa and Imdur. 14. DVT prophylaxis. Heparin SQ CODE STATUS: Full code. Discharge plan: To be determined. Most likely return home with her daughter tomorrow PT and OT in place Impression and plan of care have been directed as dictated by the signing physician. Donita Padron nurse practitioner acting as scribe for signing physician.
[2019-01-15] MEDS: SODIUM CHLORIDE 0.9% 1,000 ML IV SCH (11:47)
[2019-01-15 11:49] LABS: Glucose,Whole Blood 162 mg/dL (75-99)
--- NOTE | 2019-01-15 14:14 | P.PN ---
Subjective Progress Note Date: 01/15/19 Seen and examined for the follow-up of acute kidney injury. Objective - Vital Signs Vital signs: Vital Signs Temp 98.7 F 01/15/19 11:57 Pulse 70 01/15/19 11:57 Resp 17 01/15/19 11:57 BP 171/76 01/15/19 11:57 Pulse Ox 95 01/15/19 11:57 Intake & Output 01/14/19 01/15/19 01/15/19 18:59 06:59 18:59 Intake Total 600 1200 Output Total 800 Balance 600 400 Weight 70.2 kg 70.5 kg Intake: Intake, IV Titration 600 1200 Amount Sodium Chloride 0.9% 1, 600 1200 000 ml @ 75 mls/hr IV . [id number] [facility] Rx#:[id number] Output: Urine 800 Other: Voiding Method Bedside Commode Bedside Commode Bedside Commode # Voids 2 1 # Bowel Movements 1 - Exam Lying in bed no acute distress S1-S2 heard Lungs clear No edema - Labs CBC & Chem 7: 01/15/19 06:09 01/15/19 06:09 Labs: Abnormal Lab Results - Last 24 Hours (Table) 01/14/19 01/14/19 01/15/19 Range/Units 17:11 20:09 06:09 RBC (3.80-5.40) m/uL Hgb (11.4-16.0) gm/dL BUN 64 H (7-17) mg/dL Creatinine 1.54 H (0.52-1.04) mg/dL Glucose 161 H (74-99) mg/dL POC Glucose (mg/dL) 169 H 132 H (75-99) mg/dL Total Protein 6.0 L (6.3-8.2) g/dL Albumin 3.4 L (3.5-5.0) g/dL Lipase 441 H (23-300) U/L 01/15/19 01/15/19 01/15/19 Range/Units 06:09 07:01 11:47 RBC 3.55 L (3.80-5.40) m/uL Hgb 11.3 L (11.4-16.0) gm/dL BUN (7-17) mg/dL Creatinine (0.52-1.04) mg/dL Glucose (74-99) mg/dL POC Glucose (mg/dL) 178 H 162 H (75-99) mg/dL Total Protein (6.3-8.2) g/dL Albumin (3.5-5.0) g/dL Lipase (23-300) U/L Microbiology - Last 24 Hours (Table) 01/13/19 09:50 Urine Culture - Final Urine,Catheterized Escherichia coli Klebsiella pneumoniae Assessment and Plan Assessment: #1 acute kidney injury secondary to prerenal process from volume depletion from diarrhea. Mild hydronephrosis noted on renal ultrasound. #2 hypovolemic hyponatremia improved #3 metabolic acidosis #4 diastolic CHF #5 low normal blood pressures. Plan: #1 continue with IV fluids. Renal functions improving. #2 appreciate surgical input regarding hydronephrosis. #3 avoid nephrotoxic agents and hypotensive episodes #4 if renal function does not improve might benefit from surgical intervention to decompress the hydronephrosis.
[2019-01-15 17:30] LABS: Glucose,Whole Blood 138 mg/dL (75-99)
[2019-01-15 20:32] LABS: Glucose,Whole Blood 187 mg/dL (75-99)
[2019-01-15 21:42] VITALS: RESP 16
[2019-01-16] MEDS: CLOTRIMAZOLE TROCHE 10 MG TROCHE MUCOUS MEM SCH ×2 (05:38→12:33)
[2019-01-16 07:32] LABS: Glucose,Whole Blood 161 mg/dL (75-99)
[2019-01-16 09:12] LABS: Calcium 9.1 mg/dL (8.4-10.2)
[2019-01-16] MEDS: METOPROLOL TARTRATE 50 MG TAB PO SCH (09:21)
[2019-01-16] MEDS: RANOLAZINE 500 MG TAB.ER.12H PO SCH (09:21)
[2019-01-16] MEDS: amLODIPine 10 MG TAB PO SCH (09:22)
[2019-01-16] MEDS: ATORVASTATIN 40 MG TAB PO SCH (09:23)
[2019-01-16] MEDS: CLOPIDOGREL 75 MG TAB PO SCH (09:23)
[2019-01-16] MEDS: ESCITALOPRAM 10 MG TAB PO SCH (09:23)
[2019-01-16] MEDS: DONEPEZIL 5 MG TAB PO SCH (09:23)
[2019-01-16] MEDS: ASPIRIN 81 MG PO SCH (09:23)
[2019-01-16] MEDS: FAMOTIDINE 20 MG TAB PO SCH (09:23)
[2019-01-16] MEDS: ISOSORBIDE MONONITRATE ER 30 MG TAB.ER.24H PO SCH (09:24)
[2019-01-16] MEDS: hydrALAZINE HCL 50 MG TAB PO SCH (09:24)
[2019-01-16 11:37] LABS: Glucose,Whole Blood 216 mg/dL (75-99)
--- NOTE | 2019-01-16 12:24 | P.DS ---
Providers Date of admission: 01/13/19 12:42 Expected date of discharge: 01/16/19 Attending physician: Yee Sales Consults: 01/13/19 12:07 Consult Physician Routine Consulting Provider: Lucia Farmer Consult Reason/Comments: SONI Do you want consulting provider notified?: Yes 01/13/19 12:39 Consult Physician Stat Consulting Provider: Singh Chen Consult Reason/Comments: CHF patient Do you want consulting provider notified?: Yes 01/14/19 09:30 Consult Physician Routine Consulting Provider: Mannie Dc Consult Reason/Comments: hydronephrosis, SONI Do you want consulting provider notified?: Yes Primary care physician: Yee Sales [facility] Course: 88-year-old female one of Dr. Sales's patient who was in to have history of coronary disease, CVA, diabetes, history of GI bleed, previous history of [place] and chronic kidney disease who was hospitalized between December 28 -December with exacerbation of diastolic dysfunction congestive heart failure acute on chronic was treated stabilized and felt well patient ended up going home with home care and slight more help with family. She presented to demurs department at [facility] today with 5 days worsening abdominal pain nausea vomiting and diarrhea become much worse the last 2 days not been able to keep any food or fluid down end up coming with acute kidney failure acute kidney injury along with acute pancreatitis and possible acute gastrointestinal bleed. Patient lipase was elevated, BUN/ creatinine was quite bit elevated compared to her discharge. Patient has not noticed any black stool declined any history of influenza in her family. Flu was requested, CT of the abdomen and pelvis showed nonspecific finding with 3 mild right-sided hydronephrosis with diverticuli no major finding in the pancreas and the liver area. Clinically patient had severe gastroenteritis, gastritis and acute pancreatitis with worsening GI bleed and subacute abdominal pain. 3/2: Patient states that she has no more nausea or vomiting. She is not eating very much. Jenny member states that she does complain of some jabbing pain in left side of her abdomen in the past but she denies any at this time. She has occasional shortness of breath. She has been afebrile, pulse ox 98% on 2 L, heart rate running in the 50s and 60s, blood pressure 115/40. Renal ultrasound did show right kidney shows mild pelvic caliectasis. Dilatation of the common bile duct likely due to postcholecystectomy change. Upper pole left renal lesion is not correlated on today's exam may represent cyst. Hydronephrosis on the right side. No hydronephrosis on the left. Consult added for urology. Patient has been seen by nephrology and recommends IV fluids at 75 recheck potassium avoid nephrotoxic agents and hold antihypertensives including diuretics. Repeat hemoglobin 11, BUN 96 and creatinine 2.19, sodium 134. Influenza testing negative. Repeat lipase 520. Diet is to be advanced to full liquids. 3/3: Patient has been seen by cardiology. Plan to continue current management. Once renal function is improved a small dose of diuretics can be resumed. Repeat lab work shows hemoglobin 11.3, white count 6.1, BUN 64 and creatinine 1.54. Blood sugars have been running between 132 and 178. Lipase is 441. She has been afebrile, heart rate running in the 60s and 70s, blood pressure 126/51 , pulse ox 95% on room air. She is currently on a full liquid diet and will be advanced to a chopped diet. Patient had one diarrhea stool yesterday and a loose stool this morning. She denies any nausea or vomiting. 3: Patient remains afebrile, heart rate running in the 60s, blood pressure 147 /64, pulse ox 93% on 2 L. Patient ate her breakfast without any problems this morning. No further diarrhea. Patient is planning for shower this morning. Family is planning to take her home as she lives with her daughter. Patient will be discharged home today in stable condition. Discharge diagnoses: 1. Acute abdominal pain: Combination of pancreatitis, gastroenteritis. No signs of GI bleed. 2. Acute kidney injury with hyperkalemia secondary to vomiting and diarrhea along with diuretics. 3. Hypovolemic hyponatremia. 4. Metabolic acidosis secondary to acute kidney injury and diarrhea. 5. Chronic diastolic heart failure. 6. Diabetes mellitus type 2. 7. Acute GI bleed doubtful as patient has not had a drop in her hemoglobin. 8. Vascular dementia. 9. Hypertension and hypertensive cardiovascular disease. 10. Recent lower GI bleed likely diverticular bleed however diverticulitis or neoplasm cannot be entirely ruled out. 11. Hyperlipidemia. 12. Generalized anxiety disorder and recurrent depression, stable. 13. History of coronary artery disease. Discharge plan: Home with [facility] Impression and plan of care have been directed as dictated by the signing physician. Donita Padron nurse practitioner acting as scribe for signing physician. Patient Condition at Discharge: Good Plan - Discharge Summary Discharge Rx Participant: No New Discharge Prescriptions: Continue Aspirin [Adult Low Dose Aspirin EC] 81 mg PO DAILY Famotidine [Pepcid] 20 mg PO DAILY Ranolazine [Ranexa] 1,000 mg PO Q12HR #60 tab.er.12h Atorvastatin [Lipitor] 40 mg PO DAILY Galantamine [Razadyne] 4 mg PO AC-BID metFORMIN HCL [Glucophage] 500 mg PO BID Escitalopram [Lexapro] 10 mg PO DAILY amLODIPine [Norvasc] 10 mg PO DAILY #30 tab hydrALAZINE HCL [Apresoline] 50 mg PO TID #90 tab Clotrimazole Moe [Mycelex Moe] 10 mg MUCOUS MEM 5XD #15 moe Isosorbide Mononitrate ER [Imdur] 30 mg PO DAILY #30 tab.er.24h Ondansetron [Zofran] 4 mg PO Q8HR PRN PRN Reason: Nausea Metoprolol Tartrate [Lopressor] 50 mg PO TID Clopidogrel [Plavix] 75 mg PO DAILY Discontinued Potassium Chloride ER [K-Dur 10] 10 meq PO BID #60 tab Furosemide [Lasix] 80 mg PO BID@0900,1600 #60 tab Spironolactone [Aldactone] 25 mg PO DAILY #30 tab Lisinopril 20 mg PO DAILY Hydrochlorothiazide [Hydrodiuril] 25 mg PO DAILY Discharge Medication List Aspirin [Adult Low Dose Aspirin EC] 81 mg PO DAILY 11/21/17 [History] Famotidine [Pepcid] 20 mg PO DAILY 11/21/17 [History] Ranolazine [Ranexa] 1,000 mg PO Q12HR #60 tab.er.12h 11/25/17 [Rx] Atorvastatin [Lipitor] 40 mg PO DAILY 01/02/18 [History] Galantamine [Razadyne] 4 mg PO AC-BID 01/02/18 [History] metFORMIN HCL [Glucophage] 500 mg PO BID 02/02/18 [History] Escitalopram [Lexapro] 10 mg PO DAILY 12/20/18 [History] amLODIPine [Norvasc] 10 mg PO DAILY #30 tab 12/25/18 [Rx] hydrALAZINE HCL [Apresoline] 50 mg PO TID #90 tab 12/25/18 [Rx] Clotrimazole Moe [Mycelex Moe] 10 mg MUCOUS MEM 5XD #15 moe 01/05/19 [ Rx] Isosorbide Mononitrate ER [Imdur] 30 mg PO DAILY #30 tab.er.24h 01/05/19 [Rx] Clopidogrel [Plavix] 75 mg PO DAILY 01/13/19 [History] Metoprolol Tartrate [Lopressor] 50 mg PO TID 01/13/19 [History] Ondansetron [Zofran] 4 mg PO Q8HR PRN 01/13/19 [History] Follow up Appointment(s)/Referral(s): Yee Sales MD [Primary Care Provider] - 01/17/19 11:45 am () [facility], [NON-STAFF] - 1 Week Patient Instructions/Handouts: Dehydration (DC), Acute Kidney Injury (DC)
[2019-01-16] MEDS: SODIUM CHLORIDE 0.9% 1,000 ML IV SCH (12:38)
[2019-01-16 12:54] VITALS: BP 113/65; PULSE 60; TEMP 98.3
--- NOTE | 2019-01-16 19:59 | PN ---
PROGRESS NOTE Patient is seen for followup for acute kidney injury. She is actually getting discharged today. Renal function has improved. Serum creatinine is down to 1.12. Patient's creatinine peaked at 2.54 mg/dL. We have a previous creatinine of 0.8 on 12/21/2018. Patient was maintained on IV fluids. She is currently eating well. On examination this morning, blood pressure was 147/64, heart rate of 60 per minute. She is afebrile. EXAMINATION OF THE HEART: S1 and S2. EXAMINATION OF LUNGS: Bilateral breath sounds are heard. ABDOMEN: Soft, non-tender. Examination of lower extremities shows no significant edema. Labs show sodium 139, potassium 5.0, BUN 43, serum creatinine 1.12. Lipase was 598. ASSESSMENT: 1. Acute kidney injury, prerenal, currently improved. 2. Mild right hydronephrosis with no further plans for intervention at this time. 3. Metabolic acidosis, now resolved. 4. Hyperkalemia on initial admission secondary to acute kidney injury, now improved. PLAN: Patient can be discharged from nephrology standpoint. Follow up as outpatient with PCP. MMODL / IJN: [id number] /
== END 2019-01-16 14:45 | disposition home health service (06) | DRG 439 ==
LOC: EC 09:28 → 3NMEDONC 12:42
PROVIDERS: ADMIT Family Medicine; ATTEND Family Medicine
DX: K85.90 Acute pancreatitis without necrosis or infection, unspecified (principal); N17.9 Acute kidney failure, unspecified; F33.9 Major depressive disorder, recurrent, unspecified; I13.0 Hypertensive heart and chronic kidney disease with heart failure and stage 1 through stage 4 chronic kidney disease, or unspecified chronic kidney disease; I50.32 Chronic diastolic (congestive) heart failure; N13.30 Unspecified hydronephrosis; E87.1 Hypo-osmolality and hyponatremia; E87.2 Acidosis; E11.22 Type 2 diabetes mellitus with diabetic chronic kidney disease; E11.40 Type 2 diabetes mellitus with diabetic neuropathy, unspecified; R13.10 Dysphagia, unspecified; E86.0 Dehydration; E87.5 Hyperkalemia; F01.50 Vascular dementia, unspecified severity, without behavioral disturbance, psychotic disturbance, mood disturbance, and anxiety; G30.9 Alzheimer's disease, unspecified; F02.80 Dementia in other diseases classified elsewhere, unspecified severity, without behavioral disturbance, psychotic disturbance, mood disturbance, and anxiety; N18.2 Chronic kidney disease, stage 2 (mild); K29.70 Gastritis, unspecified, without bleeding; K52.9 Noninfective gastroenteritis and colitis, unspecified; I25.10 Atherosclerotic heart disease of native coronary artery without angina pectoris; F41.1 Generalized anxiety disorder; E78.5 Hyperlipidemia, unspecified; K44.9 Diaphragmatic hernia without obstruction or gangrene; K64.9 Unspecified hemorrhoids; K57.90 Diverticulosis of intestine, part unspecified, without perforation or abscess without bleeding; K22.8 Other specified diseases of esophagus; H54.8 Legal blindness, as defined in USA; H35.30 Unspecified macular degeneration; I25.2 Old myocardial infarction; Z79.82 Long term (current) use of aspirin; Z79.02 Long term (current) use of antithrombotics/antiplatelets; Z79.84 Long term (current) use of oral hypoglycemic drugs; Z79.899 Other long term (current) drug therapy; Z91.81 History of falling; Z87.19 Personal history of other diseases of the digestive system; Z90.49 Acquired absence of other specified parts of digestive tract; Z95.5 Presence of coronary angioplasty implant and graft; Z87.891 Personal history of nicotine dependence; Z87.442 Personal history of urinary calculi; Z87.440 Personal history of urinary (tract) infections; Z86.73 Personal history of transient ischemic attack (TIA), and cerebral infarction without residual deficits; Z88.5 Allergy status to narcotic agent; Z88.8 Allergy status to other drugs, medicaments and biological substances; Z83.49 Family history of other endocrine, nutritional and metabolic diseases; Z82.49 Family history of ischemic heart disease and other diseases of the circulatory system; Z83.3 Family history of diabetes mellitus; Z83.518 Family history of other specified eye disorder; Z84.1 Family history of disorders of kidney and ureter
CPT/HCPCS: 36415; 74176; 76705; 76770; 80048; 80053; 81001; 82150; 83690; 84132; 85025; 85027; 87077; 87086; 87186; 87502; 93005; 94760; 96361; 96365; 96366; 99285

== ENCOUNTER 2019-03-09 20:25 | Inpatient (IN) | payer MEDICARE, BC ==
[2019-03-09] MEDS ORDERED: FUROSEMIDE 10 MG/ML 4 ML VIAL IV STA (20:40)
[2019-03-09] MEDS ORDERED: NITROGLYCERIN OINT 1 INCH/GM PACKET TOPICAL STA (20:40)
--- NOTE | 2019-03-09 20:43 | ED ---
SOB HPI - General Stated Complaint: Difficulty Breathing Time Seen by Provider: 03/09/19 20:31 Source: patient, EMS, RN notes reviewed Mode of arrival: EMS - History of Present Illness Initial Comments: This is a 89-year-old female history of CHF and effusions the past who presents with complaints of shortness of breath this started last evening. No overt chest pain is progressively worsening shortness of breath she does try doubling up on her Lasix and also use compression stockings this did not seem to help. She was brought in he did have saturations in the 80s but after being placed on oxygen and went into the low 90s. No other modifying factors at this time. MD Complaint: shortness of breath - Related Data Home Medications Medication Instructions Recorded Confirmed Aspirin [Adult Low Dose Aspirin EC] 81 mg PO DAILY 11/21/17 03/09/19 Famotidine [Pepcid] 20 mg PO DAILY 11/21/17 03/09/19 Atorvastatin [Lipitor] 40 mg PO DAILY 01/02/18 03/09/19 Galantamine [Razadyne] 4 mg PO AC-BID 01/02/18 03/09/19 Escitalopram [Lexapro] 10 mg PO DAILY 12/20/18 03/09/19 Metoprolol Tartrate [Lopressor] 50 mg PO TID 01/13/19 03/09/19 Ondansetron [Zofran] 4 mg PO Q8HR PRN 01/13/19 03/09/19 Furosemide [Lasix] 20 mg PO DAILY 03/09/19 03/09/19 Linagliptin [Tradjenta] 5 mg PO DAILY 03/09/19 03/09/19 Semaglutide [Ozempic] 2 mg SQ WE 03/09/19 03/09/19 hydrALAZINE HCL [Apresoline] 25 mg PO TID 03/09/19 03/09/19 Previous Rx's Medication Instructions Recorded Ranolazine [Ranexa] 1,000 mg PO Q12HR #60 tab.er.12h 11/25/17 amLODIPine [Norvasc] 10 mg PO DAILY #30 tab 12/25/18 Isosorbide Mononitrate ER [Imdur] 30 mg PO DAILY #30 tab.er.24h 01/05/19 Allergies Allergy/AdvReac Type Severity Reaction Status Date / Time hydrocodone [From [place]] Allergy Rash/Hives Verified 03/09/19 20:49 naproxen sodium [From Aleve] Allergy Itching,bessie Verified 03/09/19 20:49 h glimepiride [From Amaryl] AdvReac Nausea & Verified 03/09/19 20:49 Vomiting Review of Systems ROS Statement: Those systems with pertinent positive or pertinent negative responses have been documented in the HPI. ROS Other: All systems not noted in ROS Statement are negative. Past Medical History Past Medical History: Coronary Artery Disease (CAD), Heart Failure, CVA/TIA, Diabetes Mellitus, GI Bleed, Hyperlipidemia, Hypertension, Myocardial Infarction ([place]), Renal Disease Additional Past Medical History / Comment(s): Pt recently admitted to [facility] on 12/20/18 with lower GI bleed thought likely d/t diverticular disease, orthostatic hypotension and CHF. She then had another admission 12/28/18 with acute hypoxic and hypercapnic respiratory failure 2nday to acute on chroic CHF with bilateral pleural effusions with bilateral thoracentesis. She also had endometrial thickening, a presbyesophagus and thrush. 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 Last Myocardial Infarction Date:: 11/18/17 History of Any Multi-Drug Resistant Organisms: None Reported Past Surgical History: Appendectomy, Back Surgery, Cholecystectomy, Heart Catheterization With Stent Additional Past Surgical History / Comment(s): Low back surgery, cervical surgery, R wrist carpal tunnel release, colonoscopy (not completed d/t poor prep) about 10 yrs ago, EGD 01/2018 d/t abdominal pain. Past Anesthesia/Blood Transfusion Reactions: No Reported Reaction Additional Past Anesthesia/Blood Transfusion Reaction / Comment(s): Pt has clausterphobia. Date of Last Stent Placement:: 11/18/17 Smoking Status: Former smoker - Past Family History Father Additional Family Medical History / Comment(s): Father at age 91 from old age. Mother Additional Family Medical History / Comment(s): Mother at age 85 with history of lupus. Brother(s) Additional Family Medical History / Comment(s): Patient's siblings have history of coronary artery disease, diabetes, hypertension, macular degeneration. Daughter(s) Additional Family Medical History / Comment(s): Patient has 11 children; 6 daughters and 5 sons. 3 have and 2 from kidney failure and one was murdered. Sister(s) Additional Family Medical History / Comment(s): Pt had a sister live to be 102 yrs old. General Exam - General Exam Comments Initial Comments: This is a well-developed well-nourished awake alert oriented 3 female General appearance: alert, anxious Head exam: Present: atraumatic, normocephalic, normal inspection Eye exam: Present: normal appearance, PERRL, EOMI. Absent: scleral icterus, conjunctival injection, periorbital swelling ENT exam: Present: normal exam, mucous membranes moist Neck exam: Present: normal inspection. Absent: tenderness, meningismus, lymphadenopathy Respiratory exam: Present: rales, decreased breath sounds. Absent: respiratory distress, wheezes, rhonchi, stridor Cardiovascular Exam: Present: regular rate, normal rhythm, normal heart sounds. Absent: systolic murmur, diastolic murmur, rubs, gallop, clicks GI/Abdominal exam: Present: soft, normal bowel sounds. Absent: distended, tenderness, guarding, rebound, rigid Extremities exam: Present: full ROM, normal capillary refill, pedal edema. Absent: tenderness, joint swelling, calf tenderness Back exam: Present: normal inspection Neurological exam: Present: alert, oriented X3, CN II-XII intact Psychiatric exam: Present: normal affect, normal mood Skin exam: Present: warm, dry, intact, normal color. Absent: rash Course Vital Signs 03/09/19 20:44 Temperature 98.5 F Pulse Rate 62 Respiratory 23 Rate Blood Pressure 142/65 O2 Sat by Pulse 96 Oximetry - Reevaluation(s) Reevaluation #1: 03/09/19 23:18 Reevaluation patient revealed that she is has some improvement after the initial treatment that was rendered. Medical Decision Making - Medical Decision Making I did reevaluate patient several occasions she is getting minimal improvement though is progressing and a positive direction. I did discuss the case with Dr. Michaud CHF patient will be admitted for treatment of CHF, respiratory distress, elevated troponin - Lab Data Result diagrams: 03/09/19 21:10 03/09/19 21:10 Lab Results 03/09/19 03/09/19 03/09/19 Range/Units 21:10 21:10 21:10 WBC 8.3 (3.8-10.6) k/uL RBC 3.34 L (3.80-5.40) m/uL Hgb 11.2 L (11.4-16.0) gm/dL Hct 32.5 L (34.0-46.0) % MCV 97.1 (80.0-100.0) fL MCH 33.4 (25.0-35.0) pg MCHC 34.4 (31.0-37.0) g/dL RDW 15.2 (11.5-15.5) % Plt Count 323 (150-450) k/uL Neutrophils % 71 % Lymphocytes % 19 % Monocytes % 6 % Eosinophils % 2 % Basophils % 0 % Neutrophils # 5.9 (1.3-7.7) k/uL Lymphocytes # 1.6 (1.0-4.8) k/uL Monocytes # 0.5 (0-1.0) k/uL Eosinophils # 0.2 (0-0.7) k/uL Basophils # 0.0 (0-0.2) k/uL PT (9.0-12.0) sec INR (<1.2) APTT (22.0-30.0) sec Sodium 134 L (137-145) mmol/L Potassium 4.4 (3.5-5.1) mmol/L Chloride 102 (98-107) mmol/L Carbon Dioxide 21 L (22-30) mmol/L Anion Gap 11 mmol/L BUN 26 H (7-17) mg/dL Creatinine 1.10 H (0.52-1.04) mg/dL Est GFR (CKD-EPI)AfAm 52 (>60 ml/min/1.73 sqM) Est GFR (CKD-EPI)NonAf 45 (>60 ml/min/1.73 sqM) Glucose 129 H (74-99) mg/dL Calcium 9.1 (8.4-10.2) mg/dL Magnesium 1.5 L (1.6-2.3) mg/dL Total Bilirubin 1.5 H (0.2-1.3) mg/dL AST 15 (14-36) U/L ALT 20 (9-52) U/L Alkaline Phosphatase 97 (38-126) U/L Creatine Kinase 37 (30-135) U/L NT-Pro-B Natriuret Pep 00642 pg/mL Total Protein 5.5 L (6.3-8.2) g/dL Albumin 3.3 L (3.5-5.0) g/dL 03/09/19 Range/Units 21:10 WBC (3.8-10.6) k/uL RBC (3.80-5.40) m/uL Hgb (11.4-16.0) gm/dL Hct (34.0-46.0) % MCV (80.0-100.0) fL MCH (25.0-35.0) pg MCHC (31.0-37.0) g/dL RDW (11.5-15.5) % Plt Count (150-450) k/uL Neutrophils % % Lymphocytes % % Monocytes % % Eosinophils % % Basophils % % Neutrophils # (1.3-7.7) k/uL Lymphocytes # (1.0-4.8) k/uL Monocytes # (0-1.0) k/uL Eosinophils # (0-0.7) k/uL Basophils # (0-0.2) k/uL PT 10.9 (9.0-12.0) sec INR 1.0 (<1.2) APTT 24.7 (22.0-30.0) sec Sodium (137-145) mmol/L Potassium (3.5-5.1) mmol/L Chloride (98-107) mmol/L Carbon Dioxide (22-30) mmol/L Anion Gap mmol/L BUN (7-17) mg/dL Creatinine (0.52-1.04) mg/dL Est GFR (CKD-EPI)AfAm (>60 ml/min/1.73 sqM) Est GFR (CKD-EPI)NonAf (>60 ml/min/1.73 sqM) Glucose (74-99) mg/dL Calcium (8.4-10.2) mg/dL Magnesium (1.6-2.3) mg/dL Total Bilirubin (0.2-1.3) mg/dL AST (14-36) U/L ALT (9-52) U/L Alkaline Phosphatase (38-126) U/L Creatine Kinase (30-135) U/L NT-Pro-B Natriuret Pep pg/mL Total Protein (6.3-8.2) g/dL Albumin (3.5-5.0) g/dL - EKG Data -: EKG Interpreted by Me (EKG shows sinus rhythm a 69. Interval 186 QRS duration 106 QT since QTC 44) - Radiology Data Radiology results: report reviewed (I did review the imaging and report is evidence of bilateral pleural effusion with CHF.), image reviewed Critical Care Time Critical Care Time: Yes Critical Care Time: 35 minutes of critical care time which includes initial presentation with history physical labs x-rays. Discussed with the admitting physician Dr. Michaud initial discussed with paramedics brought the patient. Review of old charting. Documentation above and admission orders. Disposition Clinical Impression: Systolic congestive heart failure, Adult respiratory distress syndrome, Elevated troponin, Hypomagnesemia Disposition: ADMITTED IP TO THIS HOSP Condition: Fair Referrals: Yee Sales MD [Primary Care Provider] - 1-2 days
--- NOTE | 2019-03-09 21:29 | XR ---
EXAMINATION TYPE: XR chest 2V DATE OF EXAM: 03/09/2019 COMPARISON: 02/13/2019 HISTORY: Short of breath TECHNIQUE: Frontal and lateral views of the chest are obtained. FINDINGS: There is pulmonary vascular congestion. There is blunting of costophrenic angles. Heart ap pears enlarged. Thoracic aorta is atheromatous. IMPRESSION: There is congestive heart failure with pleural effusions that is a change compared to la st exam.
[2019-03-09 22:26] LABS: Basophils % (A) 0 %; Eosinophils # (A) 0.2 k/uL (0-0.7); Eosinophils % (A) 2 %; HCT 32.5 % (34.0-46.0); HGB 11.2 gm/dL (11.4-16.0); Lymphocytes # (A) 1.6 k/uL (1.0-4.8); Lymphocytes % (A) 19 %; MCH 33.4 pg (25.0-35.0); MCHC 34.4 g/dL (31.0-37.0); MCV 97.1 fL (80.0-100.0); Mean Platelet Volume 6.9; Monocytes # (A) 0.5 k/uL (0-1.0); Monocytes % (A) 6 %; Neutrophils # (A) 5.9 k/uL (1.3-7.7); Neutrophils % (A) 71 %; Platelet Count 323 k/uL (150-450); RBC 3.34 m/uL (3.80-5.40); RDW 15.2 % (11.5-15.5); WBC 8.3 k/uL (3.8-10.6)
[2019-03-09 22:34] LABS: Albumin 3.3 g/dL (3.5-5.0); Calcium 9.1 mg/dL (8.4-10.2); Magnesium 1.5 mg/dL (1.6-2.3); Potassium 4.4 mmol/L (3.5-5.1); Total Bilirubin 1.5 mg/dL (0.2-1.3); Total Protein 5.5 g/dL (6.3-8.2)
[2019-03-09 22:44] LABS: Partial Thromboplastin Time 24.7 sec (22.0-30.0); Prothrombin Time 10.9 sec (9.0-12.0)
[2019-03-09] MEDS ORDERED: ONDANSETRON 4 MG TAB PO PRN (23:24)
[2019-03-09] MEDS ORDERED: HEPARIN SODIUM,PORCINE 5,000 UNIT/ML 1 ML VIAL IV PRN (23:27)
[2019-03-09] MEDS ORDERED: HEPARIN SODIUM,PORCINE 5,000 UNIT/ML 1 ML VIAL IV ONE (23:27)
[2019-03-09] MEDS ORDERED: MAGNESIUM SULFATE-D5W PMX 1 GM in DEXTROSE/WATER 1 100ML.BAG IVPB ONE (23:28)
[2019-03-10] MEDS ORDERED: IPRATROPIUM-ALBUTEROL 3 ML NEB INHALATION SCH
[2019-03-10] MEDS: HEPARIN SOD,PORK IN 0.45% NACL 25,000 UNIT in 0.45% NACL 1 250ML.BAG IV SCH ×2 (00:13→22:30)
[2019-03-10] MEDS: FUROSEMIDE 10 MG/ML 4 ML VIAL IV SCH ×3 (01:57→22:29)
[2019-03-10 02:17] VITALS: BMI 29.9
[2019-03-10 06:48] LABS: Glucose,Whole Blood 146 mg/dL (75-99)
[2019-03-10] MEDS: GALANTAMINE 4 MG PO SCH ×2 (06:49→15:57)
[2019-03-10] MEDS: INSULIN ASPART (NovoLOG) 100 UNIT/ML VIAL SQ SCH ×4 (06:49→22:29)
[2019-03-10 07:03] LABS: Basophils % (A) 1 %; Eosinophils # (A) 0.2 k/uL (0-0.7); Eosinophils % (A) 3 %; HGB 11.3 gm/dL (11.4-16.0); Lymphocytes # (A) 1.7 k/uL (1.0-4.8); Lymphocytes % (A) 30 %; MCH 32.7 pg (25.0-35.0); MCHC 33.2 g/dL (31.0-37.0); MCV 98.7 fL (80.0-100.0); Macrocytosis Slight; Monocytes # (A) 0.4 k/uL (0-1.0); Monocytes % (A) 7 %; Neutrophils # (A) 3.3 k/uL (1.3-7.7); Neutrophils % (A) 57 %; Platelet Count 301 k/uL (150-450); RBC 3.45 m/uL (3.80-5.40); RDW 15.4 % (11.5-15.5); WBC 5.7 k/uL (3.8-10.6)
[2019-03-10] MEDS: ESCITALOPRAM 10 MG TAB PO SCH (08:28)
[2019-03-10] MEDS: ASPIRIN 81 MG PO SCH (08:28)
[2019-03-10] MEDS: ATORVASTATIN 40 MG TAB PO SCH (08:28)
[2019-03-10] MEDS: amLODIPine 10 MG TAB PO SCH (08:28)
[2019-03-10] MEDS: ISOSORBIDE MONONITRATE ER 30 MG TAB.ER.24H PO SCH (08:32)
[2019-03-10] MEDS: METOPROLOL TARTRATE 50 MG TAB PO SCH ×3 (08:32→22:23)
[2019-03-10] MEDS: RANOLAZINE 500 MG TAB.ER.12H PO SCH ×2 (08:32→22:23)
[2019-03-10] MEDS: hydrALAZINE HCL 50 MG TAB PO SCH ×3 (08:33→22:23)
[2019-03-10] MEDS ORDERED: FAMOTIDINE 20 MG TAB PO SCH (09:00)
[2019-03-10] MEDS ORDERED: NITROGLYCERIN OINT 1 INCH/GM PACKET TOPICAL SCH (09:00)
[2019-03-10] MEDS: FUROSEMIDE 20 MG TAB PO SCH (10:54)
[2019-03-10 11:42] LABS: Glucose,Whole Blood 148 mg/dL (75-99)
[2019-03-10] MEDS: LINAGLIPTIN 5 MG TABLET PO SCH (11:53)
--- NOTE | 2019-03-10 12:05 | CONS ---
CONSULTATION CHIEF COMPLAINT: Shortness of breath. Tracy Mcclain is an 89-year-old lady who comes to hospital complaining of shortness of breath. The patient was in the hospital 6 to 7 weeks ago with very similar symptoms. She was found to have pleural effusion at that time and underwent thoracentesis. The patient has known coronary artery disease and has had angioplasty of the LAD with severe disease involving circumflex coronary artery and PDA. An echocardiogram in the past showed preserved LV function with evidence of mild aortic stenosis. Her troponins are mildly elevated but they were also significantly elevated at last visit. PAST MEDICAL HISTORY: Past medical history is significant for coronary artery disease, congestive heart failure, CVA, diabetes, hypertension, dyslipidemia, and renal insufficiency. MEDICATIONS: Medications at home include aspirin, ,Apresoline, Norvasc, Ranexa, Lopressor, Imdur, Lasix, Pepcid, Lexapro, Lipitor and aspirin. ALLERGIES: The patient is allergic to NORCO, ALEVE, and AMARYL. FAMILY HISTORY: Family history is negative for premature coronary artery disease. SOCIAL HISTORY: Social history is negative for current smoking, EtOH abuse, or drug abuse. REVIEW OF SYSTEMS: HEENT is unremarkable. CARDIAC: As described above. RESPIRATORY: Negative. GI: Negative. GENITOURINARY: Negative. ALLERGY/IMMUNOLOGY: Negative. SKIN: Negative. MUSCULOSKELETAL: Negative. ENDOCRINE: Negative. DERM: Negative. CONSTITUTIONAL: Negative. ONCOLOGICAL: Negative. Rest of the system review is not relevant. PHYSICAL EXAMINATION: On exam, comfortable at rest. Vital signs are stable. There is no jugular venous distention. Carotid upstroke is normal. There is no bruit. Chest exam reveals diminished air entry at the bases with occasional rhonchi. Heart exam reveals first and second heart sounds. No gallop. There is an ejection systolic murmur in the aortic area. Abdomen is soft. Examination of the extremities revealed bilateral 1+ pitting edema. LABS: Labs show troponin of 0.1, 0.1 and 0.08. Hemoglobin is 11.3. Potassium is 4.4. Creatinine is 1.1. EKG showed sinus rhythm, poor R-wave progression, ST-T wave changes. Patient had an echocardiogram in December of this year that showed normal LV systolic function with aortic sclerosis without significant stenosis. Her BNP is elevated at 20,000. ASSESSMENT: 1. Acute exacerbation of chronic diastolic heart failure. 2. Recurrent pleural effusions. 3. Non ST-segment elevation myocardial infarction in a patient with known coronary artery disease, status post prior angioplasty. PLAN: I will treat the patient with aspirin, Norvasc, Lipitor, IV Lasix, Apresoline, nitrates and beta blockers. The patient has had elevated troponins, but decision was made for optimal medical therapy at last time. We will continue the Ranexa. [id number] / IJN: [id number] /
--- NOTE | 2019-03-10 15:06 | P.HPIM ---
History of Present Illness H&P Date: 03/10/19 Chief Complaint: Severe dyspnea and shortness of breath, congestive heart fa ilure exacerbati 89-year-old female one of Dr. Jones this patient who was hospitalized 7 weeks ago for worsening dyspnea and shortness of breath along with congestive heart failure exacerbation and bilateral pleural effusion was treated medically with home successfully done well patient has been having worsening dyspnea and shortness of breath to the patient and worsening symptom of angina decreased mobility significant PND orthopnea ended up coming to [facility] on 03/09/2019 where was seen and evaluated found to have BNP of 20,000 elevated troponin slightly abnormal kidney function and hypomagnesemia chest x-ray showed bilateral pleural effusion mostly heart failure than infection base. Patient was started on IV diuretics consult cardiology and admitted to the hospital for the above problem. Review of Systems CONSTITUTIONAL: Well-developed elderly looks in mild respiratory distress. EYES: No icterus sclerae, no conjunctivitis. EARS, NOSE, MOUTH, THROAT, and FACE: No sore throat, lymphadenopathy, carotid bruits or deformity. RESPIRATORY: Positive dyspnea and shortness of breath with no cough wheezes. CARDIOVASCULAR: Positive chest pain, palpitation, PND, orthopnea, angina and edema. GASTROINTESTINAL: No Abd pain, Nausea or vomiting, no Diarrhea or constipation, No GI Bleed, no distention or masses. GENITOURINARY: Negative for Hematuria or UTI, no kidney stones. INTEGUMENT/BREAST: Negative for any muscular injury with mild osteoarthritis.. HEMATOLOGIC/LYMPHATIC: Negative for bleed or purpura. MUSCULOSKELTAL: Worsening arthralgia and myalgia. NEURLOGICAL: No LOC, Sz or syncope, blurred vision dizziness or abnormality.. BEHAVIORAL/PSYCH: Negative. ENDOCRINE: Negative. 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 Last Myocardial Infarction Date:: 11/18/17 History of Any Multi-Drug Resistant Organisms: None Reported Past Surgical History: Appendectomy, Back Surgery, Cholecystectomy, Heart Catheterization With Stent Additional Past Surgical History / Comment(s): Low back surgery, cervical surgery, R wrist carpal tunnel release, colonoscopy (not completed d/t poor prep) about 10 yrs ago, EGD 01/2018 d/t abdominal pain. Past Anesthesia/Blood Transfusion Reactions: No Reported Reaction Additional Past Anesthesia/Blood Transfusion Reaction / Comment(s): Pt has clausterphobia. Date of Last Stent Placement:: 11/18/17 Past Psychological History: Depression Additional Psychological History / Comment(s): Pt resides with her daughter, Julia, who is her legal gaurdian and caregiver. She uses a walker at times but is mostly in a wheelchair. She has had increased depression off and on the past few months over her son's on 04/17/18. She states she is not suicidal. She is currently receiving [facility]. She has a shower chair, walker oxygen and wheelchair. Smoking Status: Former smoker Past Alcohol Use History: None Reported Additional Past Alcohol Use History / Comment(s): Pt started smoking in 4 and quit in 1982. No illicit drug use. No alcohol use. Past Drug Use History: None Reported - Past Family History Father Additional Family Medical History / Comment(s): Father at age 91 from old age. Mother Additional Family Medical History / Comment(s): Mother at age 85 with history of lupus. Brother(s) Additional Family Medical History / Comment(s): Patient's siblings have history of coronary artery disease, diabetes, hypertension, macular degeneration. Daughter(s) Additional Family Medical History / Comment(s): Patient has 11 children; 6 daughters and 5 sons. 3 have and 2 from kidney failure and one was murdered. Sister(s) Additional Family Medical History / Comment(s): Pt had a sister live to be 102 yrs old. Medications and Allergies Home Medications Medication Instructions Recorded Confirmed Type Aspirin [Adult Low Dose Aspirin EC] 81 mg PO DAILY 11/21/17 03/09/19 History Famotidine [Pepcid] 20 mg PO DAILY 11/21/17 03/09/19 History Ranolazine [Ranexa] 1,000 mg PO Q12HR #60 tab.er.12h 11/25/17 03/09/19 Rx Atorvastatin [Lipitor] 40 mg PO DAILY 01/02/18 03/09/19 History Galantamine [Razadyne] 4 mg PO AC-BID 01/02/18 03/09/19 History Escitalopram [Lexapro] 10 mg PO DAILY 12/20/18 03/09/19 History amLODIPine [Norvasc] 10 mg PO DAILY #30 tab 12/25/18 03/09/19 Rx Isosorbide Mononitrate ER [Imdur] 30 mg PO DAILY #30 tab.er.24h 01/05/19 03/09/19 Rx Metoprolol Tartrate [Lopressor] 50 mg PO TID 01/13/19 03/09/19 History Ondansetron [Zofran] 4 mg PO Q8HR PRN 01/13/19 03/09/19 History Furosemide [Lasix] 20 mg PO DAILY 03/09/19 03/09/19 History Linagliptin [Tradjenta] 5 mg PO DAILY 03/09/19 03/09/19 History Semaglutide [Ozempic] 2 mg SQ WE 03/09/19 03/09/19 History hydrALAZINE HCL [Apresoline] 25 mg PO TID 03/09/19 03/09/19 History Allergies Allergy/AdvReac Type Severity Reaction Status Date / Time hydrocodone [From [place]] Allergy Rash/Hives Verified 03/09/19 20:49 naproxen sodium [From Aleve] Allergy Itching,bessie Verified 03/09/19 20:49 h glimepiride [From Amaryl] AdvReac Nausea & Verified 03/09/19 20:49 Vomiting Physical Exam Vitals: Vital Signs Temp Pulse Pulse Resp BP BP Pulse Ox 03/10/19 08:46 93 L 03/10/19 08:00 98 F 73 18 121/54 92 L 03/10/19 04:00 98.0 F 72 20 133/61 95 03/10/19 00:39 98.5 F 75 20 132/58 93 L 03/10/19 00:25 66 19 131/54 94 L 03/09/19 20:44 98.5 F 62 23 142/65 96 Intake and Output 03/09/19 03/10/19 03/10/19 22:59 06:59 14:59 Intake Total 252 Balance 252 Intake: Intake, IV Titration 132 Amount Heparin Sod,Pork in 0.45% 32 NaCl 25,000 unit In 0.45 % NaCl 1 250ml.bag @ 12 UNITS/KG/HR 8.709 mls/hr IV .Q24H MYCHAL Rx#: [id number] Magnesium Sulfate-D5w Pmx 100 1 gm In Dextrose/Water 1 100ml.bag @ 100 mls/hr IVPB ONCE ONE Rx#: [id number] Oral 120 Other: Voiding Method Toilet Diaper Weight 72.575 kg 74.3 kg General Appearance: Alert, cooperative, no distress, appears stated age. Neck HEENT: Supple, no lymphadenopathy, no thyroid enlargement, no carotid bruits. Lungs: Decreased breaths in bilaterally mostly in the right side almost group home through with mild rhonchi and mild expiratory wheezes. Chest Wall: Decrease expansion bilaterally with deep inspiration worsening in the right side than the left side no tenderness and no deformity was found on exam, no costochondral pain or discomfort. Heart: Irregular rate and rhythm, S1, S2 positive S3 positive 2/6 ejection systolic murmur, no rub or gallop. Back: Symmetric, no curvature, ROM normal, no CVA tenderness. Abdomen: Soft, non-tender, bowel sounds active all four quadrants, no masses, no organomegaly. Extremities: Extremities normal, atraumatic, no cyanosis or edema. Pulses: 2+ and symmetric. Skin: Skin color, texture, tugor normal, no rashes or lesions. Neurologic: Alert oriented x3 cranial nerves II through XII intact, no motor deficit, no abnormal balance or gait. Results CBC & Chem 7: 03/10/19 06:20 03/09/19 21:10 Labs: Abnormal Lab Results - Last 24 Hours (Table) 03/09/19 03/09/19 03/09/19 Range/Units 21:10 21:10 21:10 RBC 3.34 L (3.80-5.40) m/uL Hgb 11.2 L (11.4-16.0) gm/dL Hct 32.5 L (34.0-46.0) % APTT (22.0-30.0) sec Sodium 134 L (137-145) mmol/L Carbon Dioxide 21 L (22-30) mmol/L BUN 26 H (7-17) mg/dL Creatinine 1.10 H (0.52-1.04) mg/dL Glucose 129 H (74-99) mg/dL POC Glucose (mg/dL) (75-99) mg/dL Magnesium 1.5 L (1.6-2.3) mg/dL Total Bilirubin 1.5 H (0.2-1.3) mg/dL Troponin I 0.102 H* (0.000-0.034) ng/mL Total Protein 5.5 L (6.3-8.2) g/dL Albumin 3.3 L (3.5-5.0) g/dL 03/10/19 03/10/19 03/10/19 Range/Units 03:17 06:20 06:20 RBC 3.45 L (3.80-5.40) m/uL Hgb 11.3 L (11.4-16.0) gm/dL Hct (34.0-46.0) % APTT 44.8 H (22.0-30.0) sec Sodium (137-145) mmol/L Carbon Dioxide (22-30) mmol/L BUN (7-17) mg/dL Creatinine (0.52-1.04) mg/dL Glucose (74-99) mg/dL POC Glucose (mg/dL) (75-99) mg/dL Magnesium (1.6-2.3) mg/dL Total Bilirubin (0.2-1.3) mg/dL Troponin I 0.115 H* (0.000-0.034) ng/mL Total Protein (6.3-8.2) g/dL Albumin (3.5-5.0) g/dL 03/10/19 03/10/19 Range/Units 06:47 08:09 RBC (3.80-5.40) m/uL Hgb (11.4-16.0) gm/dL Hct (34.0-46.0) % APTT (22.0-30.0) sec Sodium (137-145) mmol/L Carbon Dioxide (22-30) mmol/L BUN (7-17) mg/dL Creatinine (0.52-1.04) mg/dL Glucose (74-99) mg/dL POC Glucose (mg/dL) 146 H (75-99) mg/dL Magnesium (1.6-2.3) mg/dL Total Bilirubin (0.2-1.3) mg/dL Troponin I 0.088 H* (0.000-0.034) ng/mL Total Protein (6.3-8.2) g/dL Albumin (3.5-5.0) g/dL Thrombosis Risk Factor Assmnt - DVT/VTE Prophylaxis DVT/VTE Prophylaxis: Pharmacologic Prophylaxis ordered, Mechanical Prophylaxis ordered - Choose All That Apply Each Factor Represents 1 point: Abnormal pulmonary function (COPD), Swollen legs (current) Each Risk Factor Represents 3 Points: Age 75 years or older Other congenital or acquired thrombophilia - If yes, enter type in comment: No Thrombosis Risk Factor Assessment Total Risk Factor Score: 5 Thrombosis Risk Factor Assessment Level: High Risk Assessment and Plan Plan: 1 severe dyspnea and shortness of breath: Combination of pleural effusion along with excess patient of diastolic heart failure and recurrent episode of acute coronary syndrome and atypical angina continue to treat underlying disease. 2 acute exacerbation of diastolic congestive heart failure: Continue patient on diuretics continue Ranexa along with hydralazine/isosorbide continue to watch fluid overload overload and the patient on furosemide and metoprolol if can start smaller dose spironolactone to be very helpful. 3 bilateral pleural effusion: Most likely from fluid overload and heart failure continue to treat medically if worsening or no improvement pulmonary consult and possible thoracentesis as a therapeutic more than diagnostic. 4 hypertension: Continue patient on hydralazine amlodipine and metoprolol. 5 acute kidney injury with chronic kidney disease stage II continue to watch BUN/creatinine regular basis. 6 type 2 diabetes: Patient is currently on metformin, continue Accu-Chek with sliding scales coverage. 7 non-ST segment elevation myocardial infarction with patient going to have coronary disease apparently full discussion between cardiology patient and family about invasive and decision was to continue medical management only at this point. 8 memory loss: Most likely Alzheimer disease, patient remain on galantamine 4 mg twice a day. 9 arrhythmia: Patient still on beta giselle with good result so far. 10 chronic depression: Patient has been on Lexapro 10 mg a day. 11 hyperlipidemia: Remain on Lipitor 40 mg daily. 12 recent GI bleed: Patient remain on H2 giselle. DVT prophylaxis: Continue knee-high OLE hose and early mobilization. CODE STATUS: Full code. Admit patient to inpatient status for more than 2 nights.
[2019-03-10 16:55] LABS: Glucose,Whole Blood 120 mg/dL (75-99)
--- NOTE | 2019-03-10 18:31 | ECHOF ---
Referral Reason:elevated troponin MEASUREMENTS -------- HEIGHT: 157.5 cm WEIGHT: 73.9 kg BP: IVSd: 1.4 cm (0.6 - 1.1) LVIDd: 4.1 cm (3.9 - 5.3) LVPWd: 1.4 cm (0.6 - 1.1) IVSs: 1.7 cm LVIDs: 1.6 cm LVPWs: 2.3 cm LAESV Index (A-L): 32.80 ml/m Ao Diam: 2.5 cm (2.0 - 3.7) AV Cusp: 0.8 cm (1.5 - 2.6) LA Diam: 3.5 cm (2.7 - 3.8) MV EXCURSION: 9.718 mm (> 18.000) MV EF SLOPE: 32 mm/s (70 - 150) EPSS: 0.5 cm MV E Jarvis: 1.75 m/s MV DecT: 183 ms MV A Jarvis: 0.85 m/s MV E/A Ratio: 2.07 AV maxP.80 mmHg AV meanP.32 mmHg AR PHT: 209 ms RAP: 5.00 mmHg RVSP: 30.53 mmHg FINDINGS -------- Sinus rhythm. This was a technically good study. The left ventricular size is normal. There is moderate concentric left ventricular hypertrophy. O verall left ventricular systolic function is moderately impaired with, an EF between 35 - 40 %. Mid inferior LV wall motion is hypokinetic. Apical anterior LV wall motion is hypokinetic. Apical inferior LV wall motion is hypokinetic. Anterolateral appears hypokinetic Mid to basal inferolat eral appears hypokinetic. The right ventricle is normal in size. LA is midly dilated 29-33ml/m2. The right atrial size is normal. Interatrial and interventricular septum intact. Aortic valve is trileaflet and is moderately thickened. Trace amount of aortic regurgitation. Th ere is moderate aortic stenosis present. Peak/mean gradient across the Aortic Valve is 43.80mmHg / 23.32mmHg. The mitral valve leaflets are mildly thickened. Mild mitral annular calcification present. Severe mitral regurgitation is present. Mild tricuspid regurgitation present. The right ventricular systolic pressure, as measured by Doppl er, is 30.53mmHg. There is no pulmonic regurgitation present. The aortic root size is normal. Normal inferior vena cava with normal inspiratory collapse consistent with estimated right atrial pre ssure of 5 mmHg. There is no pericardial effusion. CONCLUSIONS -------- 1. Sinus rhythm. 2. This was a technically good study. 3. The left ventricular size is normal. 4. There is moderate concentric left ventricular hypertrophy. 5. Apical anterior LV wall motion is hypokinetic. 6. Apical inferior LV wall motion is hypokinetic. 7. Anterolateral appears hypokinetic 8. Mid to basal inferolateral appears hypokinetic. 9. The right ventricle is normal in size. 10. LA is midly dilated 29-33ml/m2. 11. The right atrial size is normal. 12. Interatrial and interventricular septum intact. 13. Aortic valve is trileaflet and is moderately thickened. 14. Trace amount of aortic regurgitation. 15. There is moderate aortic stenosis present. 16. Peak/mean gradient across the Aortic Valve is 43.80mmHg / 23.32mmHg. 17. The mitral valve leaflets are mildly thickened. 18. Mild mitral annular calcification present. 19. Severe mitral regurgitation is present. 20. Mild tricuspid regurgitation present. 21. The right ventricular systolic pressure, as measured by Doppler, is 30.53mmHg. 22. There is no pulmonic regurgitation present. 23. The aortic root size is normal. 24. Normal inferior vena cava with normal inspiratory collapse consistent with estimated right atrial pressure of 5 mmHg. 25. There is no pericardial effusion. LENGTH CONTROL TESTER: Paola Gonzales RDCS
[2019-03-10] MEDS: IPRATROPIUM-ALBUTEROL 3 ML NEB INHALATION PRN (19:37)
[2019-03-10 21:38] LABS: Glucose,Whole Blood 172 mg/dL (75-99)
[2019-03-11] MEDS: GALANTAMINE 4 MG PO SCH ×2 (06:05→16:58)
[2019-03-11 06:10] LABS: Glucose,Whole Blood 158 mg/dL (75-99)
[2019-03-11] MEDS: INSULIN ASPART (NovoLOG) 100 UNIT/ML VIAL SQ SCH ×4 (06:30→21:14)
[2019-03-11 06:32] LABS: Basophils % (A) 1 %; Eosinophils # (A) 0.2 k/uL (0-0.7); Eosinophils % (A) 3 %; HCT 31.4 % (34.0-46.0); HGB 10.3 gm/dL (11.4-16.0); Lymphocytes # (A) 1.5 k/uL (1.0-4.8); Lymphocytes % (A) 28 %; MCH 32.5 pg (25.0-35.0); MCHC 32.8 g/dL (31.0-37.0); MCV 98.9 fL (80.0-100.0); Macrocytosis Slight; Monocytes # (A) 0.3 k/uL (0-1.0); Monocytes % (A) 6 %; Neutrophils # (A) 3.2 k/uL (1.3-7.7); Neutrophils % (A) 59 %; Platelet Count 291 k/uL (150-450); RBC 3.17 m/uL (3.80-5.40); RDW 15.4 % (11.5-15.5); WBC 5.4 k/uL (3.8-10.6)
[2019-03-11 06:47] LABS: Albumin 3.1 g/dL (3.5-5.0); Calcium 8.7 mg/dL (8.4-10.2); Potassium 3.9 mmol/L (3.5-5.1); Total Bilirubin 1.3 mg/dL (0.2-1.3); Total Protein 5.3 g/dL (6.3-8.2)
[2019-03-11] MEDS: ASPIRIN 81 MG PO SCH (09:02)
[2019-03-11] MEDS: amLODIPine 10 MG TAB PO SCH (09:03)
[2019-03-11] MEDS: LINAGLIPTIN 5 MG TABLET PO SCH (09:03)
[2019-03-11] MEDS: ESCITALOPRAM 10 MG TAB PO SCH (09:03)
[2019-03-11] MEDS: hydrALAZINE HCL 50 MG TAB PO SCH ×3 (09:03→21:14)
[2019-03-11] MEDS: ISOSORBIDE MONONITRATE ER 30 MG TAB.ER.24H PO SCH (09:03)
[2019-03-11] MEDS: METOPROLOL TARTRATE 50 MG TAB PO SCH ×3 (09:03→21:14)
[2019-03-11] MEDS: ATORVASTATIN 40 MG TAB PO SCH (09:03)
[2019-03-11] MEDS: FUROSEMIDE 20 MG TAB PO SCH (09:03)
[2019-03-11] MEDS: RANOLAZINE 500 MG TAB.ER.12H PO SCH ×2 (09:04→21:14)
--- NOTE | 2019-03-11 09:45 | P.PN ---
Subjective Progress Note Date: 03/11/19 Principal diagnosis: Severe dyspnea and shortness of breath, congestive heart failure excessive patient, bilateral pleural effusion, history of CAD, CK D and type 2 diabetes. 89-year-old female one of Dr. Jones this patient who was hospitalized 7 weeks ago for worsening dyspnea and shortness of breath along with congestive heart failure exacerbation and bilateral pleural effusion was treated medically with home successfully done well patient has been having worsening dyspnea and shortness of breath to the patient and worsening symptom of angina decreased mobility significant PND orthopnea ended up coming to the emergency apartment at [facility] on 03/09/2019 where was seen and evaluated found to have BNP of 20,000 elevated troponin slightly abnormal kidney function and hypomagnesemia chest x-ray showed bilateral pleural effusion mostly heart failure than infection base. Patient was started on IV diuretics consult cardiology and admitted to the hospital for the above problem. 03/11: Patient is feeling much better her hemoglobin dropped down slightly kidney function remain good despite the diuretics, patient seen cardiology echocardiograms performed yesterday with ejection fraction of 55-40 percentile which slightly bit low compared to before, despite elevated troponin patient still on medical management currently no intervention will be done at this point. Objective - Vital Signs Vital signs: Vital Signs Temp 98 F 03/11/19 04:00 Pulse 71 03/11/19 04:00 Resp 21 03/11/19 04:00 BP 130/60 03/11/19 04:00 Pulse Ox 94 L 03/11/19 04:00 Intake & Output 03/10/19 03/11/19 03/11/19 18:59 06:59 18:59 Intake Total 569.703 121.763 Output Total 800 Balance -230.297 121.763 Weight 74.3 kg 74 kg Intake: Intake, IV Titration 89.703 121.763 Amount Heparin Sod,Pork in 0.45% 89.703 121.763 NaCl 25,000 unit In 0.45 % NaCl 1 250ml.bag @ 12 UNITS/KG/HR 8.709 mls/hr IV .Q24H MYCHAL Rx#: [id number] Oral 480 Output: Urine 800 Other: Voiding Method Toilet Diaper # Voids 1 2 # Bowel Movements 1 1 - Exam Review of systems: CONSTITUTIONAL: Well-developed elderly looks in mild respiratory distress. EYES: No icterus sclerae, no conjunctivitis. EARS, NOSE, MOUTH, THROAT, and FACE: No sore throat, lymphadenopathy, carotid bruits or deformity. RESPIRATORY: Positive dyspnea and shortness of breath with no cough wheezes. CARDIOVASCULAR: Positive chest pain, palpitation, PND, orthopnea, angina and edema. GASTROINTESTINAL: No Abd pain, Nausea or vomiting, no Diarrhea or constipation, No GI Bleed, no distention or masses. GENITOURINARY: Negative for Hematuria or UTI, no kidney stones. INTEGUMENT/BREAST: Negative for any muscular injury with mild osteoarthritis.. HEMATOLOGIC/LYMPHATIC: Negative for bleed or purpura. MUSCULOSKELTAL: Worsening arthralgia and myalgia. NEURLOGICAL: No LOC, Sz or syncope, blurred vision dizziness or abnormality.. BEHAVIORAL/PSYCH: Negative. ENDOCRINE: Negative. Physical examination: General Appearance: Alert, cooperative, no distress, appears stated age. Neck HEENT: Supple, no lymphadenopathy, no thyroid enlargement, no carotid bruits. Lungs: Decreased breaths in bilaterally mostly in the right side almost snf through with mild rhonchi and mild expiratory wheezes. Chest Wall: Decrease expansion bilaterally with deep inspiration worsening in the right side than the left side no tenderness and no deformity was found on exam, no costochondral pain or discomfort. Heart: Irregular rate and rhythm, S1, S2 positive S3 positive 2/6 ejection systolic murmur, no rub or gallop. Back: Symmetric, no curvature, ROM normal, no CVA tenderness. Abdomen: Soft, non-tender, bowel sounds active all four quadrants, no masses, no organomegaly. Extremities: Extremities normal, atraumatic, no cyanosis or edema. Pulses: 2+ and symmetric. Skin: Skin color, texture, tugor normal, no rashes or lesions. Neurologic: Alert oriented x3 cranial nerves II through XII intact, no motor deficit, no abnormal balance or gait. - Labs CBC & Chem 7: 03/11/19 06:03 03/11/19 06:03 Labs: Abnormal Lab Results - Last 24 Hours (Table) 03/10/19 03/10/19 03/10/19 Range/Units 08:09 11:41 16:53 RBC (3.80-5.40) m/uL Hgb (11.4-16.0) gm/dL Hct (34.0-46.0) % APTT (22.0-30.0) sec BUN (7-17) mg/dL Creatinine (0.52-1.04) mg/dL Glucose (74-99) mg/dL POC Glucose (mg/dL) 148 H 120 H (75-99) mg/dL Troponin I 0.088 H* (0.000-0.034) ng/mL Total Protein (6.3-8.2) g/dL Albumin (3.5-5.0) g/dL 03/10/19 03/10/19 03/11/19 Range/Units 17:33 21:37 06:03 RBC 3.17 L (3.80-5.40) m/uL Hgb 10.3 L (11.4-16.0) gm/dL Hct 31.4 L (34.0-46.0) % APTT 62.9 H (22.0-30.0) sec BUN (7-17) mg/dL Creatinine (0.52-1.04) mg/dL Glucose (74-99) mg/dL POC Glucose (mg/dL) 172 H (75-99) mg/dL Troponin I (0.000-0.034) ng/mL Total Protein (6.3-8.2) g/dL Albumin (3.5-5.0) g/dL 03/11/19 03/11/19 03/11/19 Range/Units 06:03 06:03 06:08 RBC (3.80-5.40) m/uL Hgb (11.4-16.0) gm/dL Hct (34.0-46.0) % APTT 40.9 H (22.0-30.0) sec BUN 24 H (7-17) mg/dL Creatinine 1.08 H (0.52-1.04) mg/dL Glucose 137 H (74-99) mg/dL POC Glucose (mg/dL) 158 H (75-99) mg/dL Troponin I (0.000-0.034) ng/mL Total Protein 5.3 L (6.3-8.2) g/dL Albumin 3.1 L (3.5-5.0) g/dL Assessment and Plan Plan: 1 severe dyspnea and shortness of breath: Combination of pleural effusion along with excess patient of diastolic heart failure and recurrent episode of acute coronary syndrome and atypical angina continue to treat underlying disease. 2 acute exacerbation of diastolic congestive heart failure: Continue patient on diuretics continue Ranexa along with hydralazine/isosorbide continue to watch fluid overload overload and the patient on furosemide and metoprolol if can start smaller dose spironolactone to be very helpful. Patient has lost some weight urine output still doing well at this point. 3 bilateral pleural effusion: No need for thoracentesis. 4 hypertension: Very well controlled on hydralazine amlodipine and metoprolol. 5 acute kidney injury with chronic kidney disease stage II continue to watch BUN/creatinine regular basis. Kidney function hasn't changed much is still in stage II chronic kidney disease despite the diuretics. 6 type 2 diabetes: Patient is currently on metformin, continue Accu-Chek with sliding scales coverage. Blood sugar remain well controlled on oral agent. 7 non-ST segment elevation myocardial infarction with patient going to have coronary disease apparently full discussion between cardiology patient and family about invasive and decision was to continue medical management only at this point. Troponin hasn't changed much and decision was to do medical management no invasive will be done. 8 memory loss: Most likely Alzheimer disease, patient remain on galantamine 4 mg twice a day. 9 arrhythmia: Patient still on beta giselle with good result so far. 10 chronic depression: Patient has been on Lexapro 10 mg a day. 11 hyperlipidemia: Remain on Lipitor 40 mg daily.
--- NOTE | 2019-03-11 11:31 | P.PN ---
Subjective Progress Note Date: 03/11/19 89-year-old female one of Dr. Jones this patient who was hospitalized 7 weeks ago for worsening dyspnea and shortness of breath along with congestive heart failure exacerbation and bilateral pleural effusion was treated medically with home successfully done well patient has been having worsening dyspnea and shortness of breath to the patient and worsening symptom of angina decreased mobility significant PND orthopnea ended up coming to [facility] on 03/09/2019 where was seen and evaluated found to have BNP of 20,000 elevated troponin slightly abnormal kidney function and hypomagnesemia chest x-ray showed bilateral pleural effusion mostly heart failure than infec tion base. Patient was started on IV diuretics.echocardiogram with Doppler study was performed which revealed an ejection fraction of 35-40%. Patient was seen and examined this morning, overall is feeling much better, lying flat in bed at the time of our examination.blood pressure 144/60 with a heart rate in the 70s, 93% on 5 L of oxygen.White blood cell count 5.4, hemoglobin 10.3, platelet count 291. Sodium 137, potassium 3.9 BUN 24 and creatinine 1.0. Objective - Vital Signs Vital signs: Vital Signs Temp 98.5 F 03/11/19 08:00 Pulse 70 03/11/19 08:00 Resp 18 03/11/19 08:00 BP 144/63 03/11/19 08:00 Pulse Ox 93 L 03/11/19 09:17 Intake & Output 03/10/19 03/11/19 03/11/19 18:59 06:59 18:59 Intake Total 569.703 121.763 280 Output Total 800 300 Balance -230.297 121.763 -20 Weight 74.3 kg 74 kg Intake: IV 160 heparin 80 saline 80 Intake, IV Titration 89.703 121.763 Amount Heparin Sod,Pork in 0.45% 89.703 121.763 NaCl 25,000 unit In 0.45 % NaCl 1 250ml.bag @ 12 UNITS/KG/HR 8.709 mls/hr IV .Q24H MYCHAL Rx#: [id number] Oral 480 120 Output: Urine 800 300 Other: Voiding Method Toilet Toilet Diaper Diaper # Voids 1 2 0 # Bowel Movements 1 1 0 - Exam Neck HEENT: Supple, no lymphadenopathy, no thyroid enlargement, no carotid bruits. Lungs: Decreased breaths in bilaterally mostly in the right side almost detention through with mild rhonchi and mild expiratory wheezes. Chest Wall: Decrease expansion bilaterally with deep inspiration worsening in the right side than the left side no tenderness and no deformity was found on exam, no costochondral pain or discomfort. Heart: Irregular rate and rhythm, S1, S2 positive S3 positive 2/6 ejection systolic murmur, no rub or gallop. Back: Symmetric, no curvature, ROM normal, no CVA tenderness. Abdomen: Soft, non-tender, bowel sounds active all four quadrants, no masses, no organomegaly. Extremities: Extremities normal, atraumatic, no cyanosis or edema. Pulses: 2+ and symmetric. Skin: Skin color, texture, tugor normal, no rashes or lesions. Neurologic: Alert oriented x3 cranial nerves II through XII intact, no motor deficit, no abnormal balance or gait. - Labs CBC & Chem 7: 03/11/19 06:03 03/11/19 06:03 Labs: Abnormal Lab Results - Last 24 Hours (Table) 03/10/19 03/10/19 03/10/19 Range/Units 11:41 16:53 17:33 RBC (3.80-5.40) m/uL Hgb (11.4-16.0) gm/dL Hct (34.0-46.0) % APTT 62.9 H (22.0-30.0) sec BUN (7-17) mg/dL Creatinine (0.52-1.04) mg/dL Glucose (74-99) mg/dL POC Glucose (mg/dL) 148 H 120 H (75-99) mg/dL Total Protein (6.3-8.2) g/dL Albumin (3.5-5.0) g/dL 03/10/19 03/11/19 03/11/19 Range/Units 21:37 06:03 06:03 RBC 3.17 L (3.80-5.40) m/uL Hgb 10.3 L (11.4-16.0) gm/dL Hct 31.4 L (34.0-46.0) % APTT (22.0-30.0) sec BUN 24 H (7-17) mg/dL Creatinine 1.08 H (0.52-1.04) mg/dL Glucose 137 H (74-99) mg/dL POC Glucose (mg/dL) 172 H (75-99) mg/dL Total Protein 5.3 L (6.3-8.2) g/dL Albumin 3.1 L (3.5-5.0) g/dL 03/11/19 03/11/19 Range/Units 06:03 06:08 RBC (3.80-5.40) m/uL Hgb (11.4-16.0) gm/dL Hct (34.0-46.0) % APTT 40.9 H (22.0-30.0) sec BUN (7-17) mg/dL Creatinine (0.52-1.04) mg/dL Glucose (74-99) mg/dL POC Glucose (mg/dL) 158 H (75-99) mg/dL Total Protein (6.3-8.2) g/dL Albumin (3.5-5.0) g/dL Assessment and Plan Plan: assessment and plan #1 severe dyspnea and shortness of breath: Combination of pleural effusion along with exacerbation of systolic heart failure acute on chronic #2 acute exacerbation of systolic congestive heart failure #3 bilateral pleural effusion #4 hypertension #5 acute kidney injury with chronic kidney disease stage II #6 type 2 diabetes #7 memory loss #8 hyperlipidemia #9 history of GI bleed Plan From cardiology's perspective, we'll recommend to continue the patient on current dose of IV Lasix for 24 hours. We will discontinue IV heparin. Check lytes BUN and creatinine in the morning. DNP note has been reviewed, I agree with a documented findings and plan of care. Patient was seen and examined.
[2019-03-11] MEDS: FUROSEMIDE 10 MG/ML 4 ML VIAL IV SCH (12:02)
[2019-03-11 12:10] LABS: Glucose,Whole Blood 163 mg/dL (75-99)
[2019-03-11 16:47] LABS: Glucose,Whole Blood 128 mg/dL (75-99)
[2019-03-11 20:48] LABS: Glucose,Whole Blood 174 mg/dL (75-99)
[2019-03-12] MEDS: FUROSEMIDE 10 MG/ML 4 ML VIAL IV SCH (00:44)
[2019-03-12] MEDS: GALANTAMINE 4 MG PO SCH ×2 (06:09→18:12)
[2019-03-12 06:26] LABS: Glucose,Whole Blood 167 mg/dL (75-99)
[2019-03-12] MEDS: INSULIN ASPART (NovoLOG) 100 UNIT/ML VIAL SQ SCH ×4 (06:34→21:35)
[2019-03-12 07:05] LABS: Basophils % (A) 0 %; Eosinophils # (A) 0.1 k/uL (0-0.7); Eosinophils % (A) 2 %; HCT 34.7 % (34.0-46.0); HGB 11.4 gm/dL (11.4-16.0); Lymphocytes # (A) 1.6 k/uL (1.0-4.8); Lymphocytes % (A) 19 %; MCH 32.6 pg (25.0-35.0); MCHC 32.8 g/dL (31.0-37.0); MCV 99.4 fL (80.0-100.0); Macrocytosis Slight; Mean Platelet Volume 7.1; Monocytes # (A) 0.4 k/uL (0-1.0); Monocytes % (A) 5 %; Neutrophils # (A) 5.8 k/uL (1.3-7.7); Neutrophils % (A) 72 %; Platelet Count 310 k/uL (150-450); RBC 3.49 m/uL (3.80-5.40); RDW 15.2 % (11.5-15.5); WBC 8.1 k/uL (3.8-10.6)
[2019-03-12 07:06] LABS: Albumin 3.5 g/dL (3.5-5.0); Calcium 9.3 mg/dL (8.4-10.2); Potassium 4.2 mmol/L (3.5-5.1); Total Bilirubin 1.3 mg/dL (0.2-1.3); Total Protein 5.9 g/dL (6.3-8.2)
[2019-03-12] MEDS: hydrALAZINE HCL 50 MG TAB PO SCH ×3 (09:31→21:35)
[2019-03-12] MEDS: amLODIPine 10 MG TAB PO SCH (09:31)
[2019-03-12] MEDS: ESCITALOPRAM 10 MG TAB PO SCH (09:31)
[2019-03-12] MEDS: ISOSORBIDE MONONITRATE ER 30 MG TAB.ER.24H PO SCH (09:32)
[2019-03-12] MEDS: ASPIRIN 81 MG PO SCH (09:32)
[2019-03-12] MEDS: RANOLAZINE 500 MG TAB.ER.12H PO SCH ×2 (09:32→21:35)
[2019-03-12] MEDS: LINAGLIPTIN 5 MG TABLET PO SCH (09:32)
[2019-03-12] MEDS: ATORVASTATIN 40 MG TAB PO SCH (09:32)
[2019-03-12] MEDS: METOPROLOL TARTRATE 50 MG TAB PO SCH ×3 (09:32→21:35)
--- NOTE | 2019-03-12 11:06 | P.PN ---
Subjective Progress Note Date: 03/12/19 Principal diagnosis: Severe dyspnea and shortness of breath, congestive heart failure excessive patient, bilateral pleural effusion, history of CAD, CK D and type 2 diabetes. 89-year-old female one of Dr. Jones this patient who was hospitalized 7 weeks ago for worsening dyspnea and shortness of breath along with congestive heart failure exacerbation and bilateral pleural effusion was treated medically with home successfully done well patient has been having worsening dyspnea and shortness of breath to the patient and worsening symptom of angina decreased mobility significant PND orthopnea ended up coming to the emergency apartment at [facility] on 03/09/2019 where was seen and evaluated found to have BNP of 20,000 elevated troponin slightly abnormal kidney function and hypomagnesemia chest x-ray showed bilateral pleural effusion mostly heart failure than infection base. Patient was started on IV diuretics consult cardiology and admitted to the hospital for the above problem. 03/11: Patient is feeling much better her hemoglobin dropped down slightly kidney function remain good despite the diuretics, patient seen cardiology echocardiograms performed yesterday with ejection fraction of 35-40 percentile which slightly bit low compared to before, despite elevated troponin patient still on medical management currently no intervention will be done at this point. 03/12: Patient is feeling much better will continue medical management will increased mobility increase physical therapy and the patient therapy continue aggressive diuretics if she is ready to be discharged home in the next 24-48 hours. Objective - Vital Signs Vital signs: Vital Signs Temp 97.5 F L 03/12/19 08:00 Pulse 69 03/12/19 08:00 Resp 20 03/12/19 03:33 BP 153/67 03/12/19 08:00 Pulse Ox 93 L 03/12/19 08:00 Intake & Output 03/11/19 03/12/19 03/12/19 18:59 06:59 18:59 Intake Total 640 0 Output Total 1100 500 300 Balance -460 -500 -300 Weight 74.1 kg Intake: IV 160 heparin 80 saline 80 Oral 480 0 Output: Urine 1100 500 300 Other: Voiding Method Toilet Toilet Diaper Diaper # Voids 0 1 0 # Bowel Movements 0 - Exam Review of systems: CONSTITUTIONAL: Well-developed elderly looks in mild respiratory distress. EYES: No icterus sclerae, no conjunctivitis. EARS, NOSE, MOUTH, THROAT, and FACE: No sore throat, lymphadenopathy, carotid bruits or deformity. RESPIRATORY: Positive dyspnea and shortness of breath with no cough wheezes. CARDIOVASCULAR: Positive chest pain, palpitation, PND, orthopnea, angina and edema. GASTROINTESTINAL: No Abd pain, Nausea or vomiting, no Diarrhea or constipation, No GI Bleed, no distention or masses. GENITOURINARY: Negative for Hematuria or UTI, no kidney stones. INTEGUMENT/BREAST: Negative for any muscular injury with mild osteoarthritis.. HEMATOLOGIC/LYMPHATIC: Negative for bleed or purpura. MUSCULOSKELTAL: Worsening arthralgia and myalgia. NEURLOGICAL: No LOC, Sz or syncope, blurred vision dizziness or abnormality.. BEHAVIORAL/PSYCH: Negative. ENDOCRINE: Negative. Physical examination: General Appearance: Alert, cooperative, no distress, appears stated age. Neck HEENT: Supple, no lymphadenopathy, no thyroid enlargement, no carotid bruits. Lungs: Decreased breaths in bilaterally mostly in the right side almost retirement through with mild rhonchi and mild expiratory wheezes. Chest Wall: Decrease expansion bilaterally with deep inspiration worsening in the right side than the left side no tenderness and no deformity was found on exam, no costochondral pain or discomfort. Heart: Irregular rate and rhythm, S1, S2 positive S3 positive 2/6 ejection systolic murmur, no rub or gallop. Back: Symmetric, no curvature, ROM normal, no CVA tenderness. Abdomen: Soft, non-tender, bowel sounds active all four quadrants, no masses, no organomegaly. Extremities: Extremities normal, atraumatic, no cyanosis or edema. Pulses: 2+ and symmetric. Skin: Skin color, texture, tugor normal, no rashes or lesions. Neurologic: Alert oriented x3 cranial nerves II through XII intact, no motor deficit, no abnormal balance or gait. - Labs CBC & Chem 7: 03/12/19 06:02 03/12/19 06:02 Labs: Abnormal Lab Results - Last 24 Hours (Table) 03/11/19 03/11/19 03/11/19 Range/Units 12:09 16:45 20:48 RBC (3.80-5.40) m/uL BUN (7-17) mg/dL Creatinine (0.52-1.04) mg/dL Glucose (74-99) mg/dL POC Glucose (mg/dL) 163 H 128 H 174 H (75-99) mg/dL Total Protein (6.3-8.2) g/dL 03/12/19 03/12/19 03/12/19 Range/Units 06:02 06:02 06:25 RBC 3.49 L (3.80-5.40) m/uL BUN 27 H (7-17) mg/dL Creatinine 1.14 H (0.52-1.04) mg/dL Glucose 139 H (74-99) mg/dL POC Glucose (mg/dL) 167 H (75-99) mg/dL Total Protein 5.9 L (6.3-8.2) g/dL Assessment and Plan Plan: 1 severe dyspnea and shortness of breath: Combination of pleural effusion along with excess patient of diastolic heart failure and recurrent episode of acute coronary syndrome and atypical angina continue to treat underlying disease. Patient is doing much better today. 2 acute exacerbation of diastolic congestive heart failure: Continue patient on diuretics continue Ranexa along with hydralazine/isosorbide continue to watch fluid overload overload and the patient on furosemide and metoprolol if can start smaller dose spironolactone to be very helpful. She complete her testing with echocardiogram been with ejection fraction of 35 percentile patient will continue on aggressive medical management no invasive testing will be done. 3 bilateral pleural effusion: No need for thoracentesis. Repeat 2 view x-ray today. 4 hypertension: Very well controlled on hydralazine amlodipine and metoprolol. 5 acute kidney injury with chronic kidney disease stage II continue to watch BUN/creatinine regular basis. Kidney function hasn't changed much is still in stage II chronic kidney disease despite the diuretics. 6 type 2 diabetes: Patient is currently on metformin, continue Accu-Chek with sliding scales coverage. Blood sugar remain well controlled on oral agent. 7 non-ST segment elevation myocardial infarction with patient going to have coronary disease apparently full discussion between cardiology patient and family about invasive and decision was to continue medical management only at this point. Troponin hasn't changed much and decision was to do medical management no invasive will be done. 8 memory loss: Most likely Alzheimer disease, patient remain on galantamine 4 mg twice a day. 9 arrhythmia: Patient still on beta giselle with good result so far. 10 chronic depression: Patient has been on Lexapro 10 mg a day. 11 hyperlipidemia: Remain on Lipitor 40 mg daily. Discharge planning: Possibly home in 48 hours.
--- NOTE | 2019-03-12 11:12 | P.PN ---
Subjective Progress Note Date: 03/12/19 This is a pleasant 89-year-old female patient of Dr. Jones. She was recently hospitalized 7 weeks ago for worsening dyspnea and shortness of breath along with congestive heart failure exacerbation and bilateral pleural effusion was treated medically. She was discharged home and was doing well patient until recently when she developed worsening dyspnea and shortness of breath worsening symptoms of angina decreased mobility significant PND orthopnea ended up coming to the emergency on 03/09/2019 where was seen and evaluated found to have NT- proBNP of 20,000 and elevated troponin as well as slightly abnormal kidney function and hypomagnesemia. Chest x-ray showed bilateral pleural effusion most ly heart failure than infection base. Patient was started on IV diuretics. Echocardiogram with Doppler study was performed which revealed an ejection fraction of 35-40%. She remains on IV Lasix. Upon examination this morning, she is resting comfortably lying flat in bed. She is feeling well and believes her breathing has improved. Laboratory values this morning showed a potassium of 4.2, BUN 27 and creatinine 1.14. Objective - Vital Signs Vital signs: Vital Signs Temp 97.5 F L 03/12/19 08:00 Pulse 69 03/12/19 08:00 Resp 20 03/12/19 03:33 BP 153/67 03/12/19 08:00 Pulse Ox 93 L 03/12/19 08:00 Intake & Output 03/11/19 03/12/19 03/12/19 18:59 06:59 18:59 Intake Total 640 0 Output Total 1100 500 300 Balance -460 -500 -300 Weight 74.1 kg Intake: IV 160 heparin 80 saline 80 Oral 480 0 Output: Urine 1100 500 300 Other: Voiding Method Toilet Toilet Diaper Diaper # Voids 0 1 0 # Bowel Movements 0 - Exam PHYSICAL EXAMINATION: HEENT: Head is atraumatic, normocephalic. Pupils equal, round. Neck is supple. There is no elevated jugular venous pressure. HEART EXAMINATION: Heart sounds irregularly irregular, S1 and S2, positive S3, 2/6 systolic ejection murmur. CHEST EXAMINATION: Lungs reveal diminished air entry bilaterally more so on the right. No chest wall tenderness is noted on palpation or with deep breathing. ABDOMEN: Soft, nontender. Bowel sounds are heard. No organomegaly noted. EXTREMITIES: 2+ peripheral pulses with no evidence of peripheral edema and no calf tenderness noted. NEUROLOGIC patient is awake, alert and oriented x3. . - Labs CBC & Chem 7: 03/12/19 06:02 03/12/19 06:02 Labs: Abnormal Lab Results - Last 24 Hours (Table) 03/11/19 03/11/19 03/11/19 Range/Units 12:09 16:45 20:48 RBC (3.80-5.40) m/uL BUN (7-17) mg/dL Creatinine (0.52-1.04) mg/dL Glucose (74-99) mg/dL POC Glucose (mg/dL) 163 H 128 H 174 H (75-99) mg/dL Total Protein (6.3-8.2) g/dL 03/12/19 03/12/19 03/12/19 Range/Units 06:02 06:02 06:25 RBC 3.49 L (3.80-5.40) m/uL BUN 27 H (7-17) mg/dL Creatinine 1.14 H (0.52-1.04) mg/dL Glucose 139 H (74-99) mg/dL POC Glucose (mg/dL) 167 H (75-99) mg/dL Total Protein 5.9 L (6.3-8.2) g/dL Assessment and Plan Assessment: #1 severe dyspnea and shortness of breath: Combination of pleural effusion along with exacerbation of systolic heart failure acute on chronic #2 acute exacerbation of systolic congestive heart failure #3 bilateral pleural effusion #4 hypertension #5 acute kidney injury with chronic kidney disease stage II #6 type 2 diabetes #7 memory loss #8 hyperlipidemia #9 history of GI bleed Plan: From cardiology's perspective, we will discontinue IV Lasix and switch to Lasix 40 mg by mouth twice a day. Continue to monitor daily weights, intake and output as well as renal function and electrolytes. Further recommendations to follow. ADDICTION PROFESSIONAL note has been reviewed, I agree with a documented findings and plan of care. Patient was seen and examined.
--- NOTE | 2019-03-12 11:27 | XR ---
EXAMINATION TYPE: XR chest 2V DATE OF EXAM: 03/12/2019 HISTORY: SOB. REFERENCE: Previous study dated 03/09/2019. FINDINGS: The heart is enlarged. There is mild vascular redistribution and subtle interstitial change . There is bibasilar airspace disease. There are bilateral effusions. The heart is enlarged. IMPRESSION: 1. CARDIOMEGALY. 2. BILATERAL EFFUSIONS. 3. BIBASILAR AIRSPACE DISEASE MAY REPRESENT CONFLUENT EDEMA OR PNEUMONIA.
[2019-03-12 12:15] LABS: Glucose,Whole Blood 135 mg/dL (75-99)
[2019-03-12 16:50] LABS: Glucose,Whole Blood 144 mg/dL (75-99)
[2019-03-12] MEDS: FUROSEMIDE 40 MG TAB PO SCH (18:09)
[2019-03-12] MEDS: IPRATROPIUM-ALBUTEROL 3 ML NEB INHALATION PRN (20:23)
[2019-03-12] MEDS ORDERED: ALPRAZolam 0.25 MG TAB PO PRN (20:43)
[2019-03-12 20:54] LABS: Glucose,Whole Blood 144 mg/dL (75-99)
[2019-03-13] MEDS: GALANTAMINE 4 MG PO SCH ×2 (03:30→17:03)
[2019-03-13 05:50] LABS: Glucose,Whole Blood 159 mg/dL (75-99)
[2019-03-13] MEDS: INSULIN ASPART (NovoLOG) 100 UNIT/ML VIAL SQ SCH ×4 (06:18→21:23)
[2019-03-13 06:51] LABS: Basophils % (A) 1 %; Eosinophils # (A) 0.1 k/uL (0-0.7); Eosinophils % (A) 1 %; HCT 31.2 % (34.0-46.0); HGB 10.1 gm/dL (11.4-16.0); Lymphocytes # (A) 1.4 k/uL (1.0-4.8); Lymphocytes % (A) 21 %; MCH 32.3 pg (25.0-35.0); MCHC 32.4 g/dL (31.0-37.0); MCV 99.7 fL (80.0-100.0); Macrocytosis Slight; Monocytes # (A) 0.5 k/uL (0-1.0); Monocytes % (A) 7 %; Neutrophils # (A) 4.5 k/uL (1.3-7.7); Neutrophils % (A) 67 %; Platelet Count 289 k/uL (150-450); RBC 3.13 m/uL (3.80-5.40); RDW 15.2 % (11.5-15.5); WBC 6.7 k/uL (3.8-10.6)
[2019-03-13 07:03] LABS: Albumin 3.2 g/dL (3.5-5.0); Calcium 9.2 mg/dL (8.4-10.2); Potassium 4.3 mmol/L (3.5-5.1); Total Bilirubin 1.7 mg/dL (0.2-1.3); Total Protein 5.5 g/dL (6.3-8.2)
--- NOTE | 2019-03-13 08:24 | P.PN ---
Subjective Progress Note Date: 03/13/19 Principal diagnosis: CHF secondary to systolic dysfunction This is a pleasant 89-year-old female patient with a past medical history significant for cardiomyopathy with an ejection fraction of 35-40%, who was admitted to the hospital with progressive dyspnea and progressive bilateral lower extent his edema and was diagnosed was congestive heart failure exacerbation secondary to systolic dysfunction as well as bilateral pleural effusion. On follow-up with her today, she seems to be feeling better indeterminable shortness of breath. She still have diminished breathing sounds mostly over the right lung than the left lung. Repeat chest x-ray from today revealed bilateral pleural effusion. She was initiated on Lasix by mouth yesterday and she seems to be tolerating that very well. The creatinine continues to be stable. Echocardiogram during this admission revealed impaired LV function was EF around 35-40% with evidence of moderate aortic stenosis. Objective - Vital Signs Vital signs: Vital Signs Temp 98.6 F 03/13/19 03:18 Pulse 82 03/13/19 03:18 Resp 20 03/13/19 03:18 BP 146/72 03/13/19 03:18 Pulse Ox 91 L 03/13/19 03:18 Intake & Output 03/12/19 03/13/19 03/13/19 18:59 06:59 18:59 Intake Total 360 360 Output Total 1400 900 300 Balance -1040 -900 60 Weight 74 kg Intake: Oral 360 360 Output: Urine 1400 900 300 Other: # Voids 1 1 1 - Constitutional General appearance: Present: no acute distress - Respiratory Respiratory: bilateral: diminished - Cardiovascular Rhythm: regular Heart sounds: normal: S1, S2 Abnormal Heart Sounds: Present: systolic murmur - Labs CBC & Chem 7: 03/13/19 05:54 03/13/19 05:54 Labs: Abnormal Lab Results - Last 24 Hours (Table) 03/12/19 03/12/19 03/12/19 Range/Units 12:10 16:49 20:53 RBC (3.80-5.40) m/uL Hgb (11.4-16.0) gm/dL Hct (34.0-46.0) % BUN (7-17) mg/dL Creatinine (0.52-1.04) mg/dL Glucose (74-99) mg/dL POC Glucose (mg/dL) 135 H 144 H 144 H (75-99) mg/dL Total Bilirubin (0.2-1.3) mg/dL AST (14-36) U/L Total Protein (6.3-8.2) g/dL Albumin (3.5-5.0) g/dL 03/13/19 03/13/19 03/13/19 Range/Units 05:49 05:54 05:54 RBC 3.13 L (3.80-5.40) m/uL Hgb 10.1 L (11.4-16.0) gm/dL Hct 31.2 L (34.0-46.0) % BUN 29 H (7-17) mg/dL Creatinine 1.13 H (0.52-1.04) mg/dL Glucose 134 H (74-99) mg/dL POC Glucose (mg/dL) 159 H (75-99) mg/dL Total Bilirubin 1.7 H (0.2-1.3) mg/dL AST 13 L (14-36) U/L Total Protein 5.5 L (6.3-8.2) g/dL Albumin 3.2 L (3.5-5.0) g/dL Assessment and Plan Assessment: Assessment #1 congestive heart failure exacerbation secondary to systolic dysfunction #2 evidence off moderate aortic stenosis #3 shortness of breath and bilateral lower extremities edema #4 bilateral pleural effusion #5 multiple comorbid conditions Plan #1 the patient was started on Lasix by mouth yesterday #2 we'll continue monitor the kidney function and electrolytes #3 possible discharge in the next 24 hours.
[2019-03-13] MEDS: LINAGLIPTIN 5 MG TABLET PO SCH (09:17)
[2019-03-13] MEDS: METOPROLOL TARTRATE 50 MG TAB PO SCH ×3 (09:17→20:16)
[2019-03-13] MEDS: ATORVASTATIN 40 MG TAB PO SCH (09:18)
[2019-03-13] MEDS: ESCITALOPRAM 10 MG TAB PO SCH (09:18)
[2019-03-13] MEDS: ISOSORBIDE MONONITRATE ER 30 MG TAB.ER.24H PO SCH (09:18)
[2019-03-13] MEDS: hydrALAZINE HCL 50 MG TAB PO SCH ×3 (09:18→20:17)
[2019-03-13] MEDS: FUROSEMIDE 40 MG TAB PO SCH ×2 (09:18→16:20)
[2019-03-13] MEDS: RANOLAZINE 500 MG TAB.ER.12H PO SCH ×2 (09:18→20:16)
[2019-03-13] MEDS: amLODIPine 10 MG TAB PO SCH (09:18)
[2019-03-13] MEDS: ASPIRIN 81 MG PO SCH (09:18)
[2019-03-13] MEDS ORDERED: SALINE NASAL GEL 14.1 GM TUBE TOPICAL PRN (10:07)
[2019-03-13 11:29] LABS: Glucose,Whole Blood 151 mg/dL (75-99)
--- NOTE | 2019-03-13 13:12 | P.PN ---
Subjective Progress Note Date: 03/13/19 89-year-old female one of Dr. Jones this patient who was hospitalized 7 weeks ago for worsening dyspnea and shortness of breath along with congestive heart failure exacerbation and bilateral pleural effusion was treated medically with home successfully done well patient has been having worsening dyspnea and shortness of breath to the patient and worsening symptom of angina decreased mobility significant PND orthopnea ended up coming to the emergency apartment at [facility] on 03/09/2019 where was seen and evaluated found to have BNP of 20,000 elevated troponin slightly abnormal kidney function and hypomagnesemia chest x-ray showed bilateral pleural effusion mostly heart failure than infection base. Patient was started on IV diuretics consult cardiology and admitted to the hospital for the above problem. 03/11: Patient is feeling much better her hemoglobin dropped down slightly kidney function remain good despite the diuretics, patient seen cardiology echocardiograms performed yesterday with ejection fraction of 35-40 percentile which slightly bit low compared to before, despite elevated troponin patient still on medical management currently no intervention will be done at this point. 03/12: Patient is feeling much better will continue medical management will increased mobility increase physical therapy and the patient therapy continue aggressive diuretics if she is ready to be discharged home in the next 24-48 hours. 03/13: Patient states in general she is feeling better since she came in her breathing status is improved but she remains on oxygen at 6 L. She states recently she increased her oxygen at home to 4 L nasal cannula. Repeat chest x- ray reveals bilateral pleural effusion. Echocardiogram during this hospitalization revealed EF of 35-40% with moderate aortic stenosis. We are planning to monitor her overnight and try to decrease oxygen needs back to her baseline and possible discharge home tomorrow. Objective - Vital Signs Vital signs: Vital Signs Temp 98.6 F 03/13/19 03:18 Pulse 82 03/13/19 03:18 Resp 20 03/13/19 03:18 BP 146/72 03/13/19 03:18 Pulse Ox 91 L 03/13/19 03:18 Intake & Output 03/12/19 03/13/19 03/13/19 18:59 06:59 18:59 Intake Total 360 360 Output Total 1400 900 300 Balance -1040 -900 60 Weight 74 kg Intake: Oral 360 360 Output: Urine 1400 900 300 Other: # Voids 1 1 1 - Exam Review of systems: CONSTITUTIONAL: Denies fever, denies chills. EYES: No icterus sclerae, no conjunctivitis. EARS, NOSE, MOUTH, THROAT, and FACE: No sore throat, lymphadenopathy, carotid bruits or deformity. RESPIRATORY: Positive dyspnea and shortness of breath with no cough wheezes. CARDIOVASCULAR: Positive chest pain, palpitation, PND, orthopnea, angina and edema. GASTROINTESTINAL: No Abd pain, Nausea or vomiting, no Diarrhea or constipation, No GI Bleed, no distention or masses. GENITOURINARY: Negative for Hematuria or UTI, no kidney stones. INTEGUMENT/BREAST: Negative for any muscular injury with mild osteoarthritis.. HEMATOLOGIC/LYMPHATIC: Negative for bleed or purpura. MUSCULOSKELTAL: Worsening arthralgia and myalgia. NEURLOGICAL: No LOC, Sz or syncope, blurred vision dizziness or abnormality.. BEHAVIORAL/PSYCH: Negative. ENDOCRINE: Negative. Physical examination: General Appearance: Alert, cooperative, no distress, appears stated age. Patient resting in chair. Neck HEENT: Supple, no lymphadenopathy, no thyroid enlargement, no carotid bruits. Lungs: Decreased breaths in bilaterally mostly in the right side almost assisted through with mild rhonchi and mild expiratory wheezes. Chest Wall: Decrease expansion bilaterally with deep inspiration worsening in the right side than the left side no tenderness and no deformity was found on exam, no costochondral pain or discomfort. Heart: Irregular rate and rhythm, S1, S2 positive S3 positive 2/6 ejection systolic murmur, no rub or gallop. Back: Symmetric, no curvature, ROM normal, no CVA tenderness. Abdomen: Soft, non-tender, bowel sounds active all four quadrants, no masses, no organomegaly. Extremities: Extremities normal, atraumatic, no cyanosis or edema. Pulses: 2+ and symmetric. Skin: Skin color, texture, tugor normal, no rashes or lesions. Neurologic: Alert oriented x3 cranial nerves II through XII intact, no motor deficit, no abnormal balance or gait. - Labs CBC & Chem 7: 03/13/19 05:54 03/13/19 05:54 Labs: Abnormal Lab Results - Last 24 Hours (Table) 03/12/19 03/12/19 03/12/19 Range/Units 12:10 16:49 20:53 RBC (3.80-5.40) m/uL Hgb (11.4-16.0) gm/dL Hct (34.0-46.0) % BUN (7-17) mg/dL Creatinine (0.52-1.04) mg/dL Glucose (74-99) mg/dL POC Glucose (mg/dL) 135 H 144 H 144 H (75-99) mg/dL Total Bilirubin (0.2-1.3) mg/dL AST (14-36) U/L Total Protein (6.3-8.2) g/dL Albumin (3.5-5.0) g/dL 03/13/19 03/13/19 03/13/19 Range/Units 05:49 05:54 05:54 RBC 3.13 L (3.80-5.40) m/uL Hgb 10.1 L (11.4-16.0) gm/dL Hct 31.2 L (34.0-46.0) % BUN 29 H (7-17) mg/dL Creatinine 1.13 H (0.52-1.04) mg/dL Glucose 134 H (74-99) mg/dL POC Glucose (mg/dL) 159 H (75-99) mg/dL Total Bilirubin 1.7 H (0.2-1.3) mg/dL AST 13 L (14-36) U/L Total Protein 5.5 L (6.3-8.2) g/dL Albumin 3.2 L (3.5-5.0) g/dL Assessment and Plan Plan: 1 severe dyspnea secondary to acute on chronic systolic heart failure, moderate aortic stenosis, bilateral pleural effusions. Patient is currently on oral Lasix. Cardiology consult appreciated. Continue Ranexa 1000 mg twice daily, Imdur 30 mg daily 2 acute on chronic hypoxic respiratory failure. Patient is currently on 6 L. Home oxygen is up to 4 L recently. Try to increase activity and decreased oxygen usage. Saline rinse for nose added. 3 bilateral pleural effusion: No need for thoracentesis. 4 hypertension. Continue Norvasc 10 mg daily, Lasix 40 mg twice daily, hydralazine 25 mg 3 times daily, Imdur 30 mg daily, Lopressor 50 mg 3 times daily. 5 chronic kidney disease stage II. 6 type 2 diabetes. Continue NovoLog scale before meals and at bedtime, Tradjenta. 7 non-ST segment elevation myocardial infarction with plan for medical management. 8 memory loss: Most likely Alzheimer disease, patient remain on galantamine 4 mg twice a day. 9 history of coronary artery disease. 10 recurrent depression: Patient has been on Lexapro 10 mg a day. 11 hyperlipidemia: Remain on Lipitor 40 mg daily. Discharge plan: Home with [facility] tomorrow Impression and plan of care have been directed as dictated by the signing physician. Donita Padron nurse practitioner acting as scribe for signing physician.
[2019-03-13 16:46] LABS: Glucose,Whole Blood 149 mg/dL (75-99)
[2019-03-13 20:50] LABS: Glucose,Whole Blood 161 mg/dL (75-99)
[2019-03-14 06:01] LABS: Glucose,Whole Blood 166 mg/dL (75-99)
[2019-03-14] MEDS: GALANTAMINE 4 MG PO SCH ×2 (06:12→15:51)
[2019-03-14] MEDS: INSULIN ASPART (NovoLOG) 100 UNIT/ML VIAL SQ SCH ×4 (06:15→21:26)
[2019-03-14 07:11] LABS: Basophils % (A) 1 %; Eosinophils # (A) 0.2 k/uL (0-0.7); Eosinophils % (A) 3 %; HCT 33.3 % (34.0-46.0); HGB 11.1 gm/dL (11.4-16.0); Lymphocytes # (A) 1.7 k/uL (1.0-4.8); Lymphocytes % (A) 26 %; MCH 32.8 pg (25.0-35.0); MCHC 33.3 g/dL (31.0-37.0); MCV 98.6 fL (80.0-100.0); Mean Platelet Volume 6.9; Monocytes # (A) 0.3 k/uL (0-1.0); Monocytes % (A) 5 %; Neutrophils % (A) 63 %; Platelet Count 294 k/uL (150-450); RBC 3.38 m/uL (3.80-5.40); RDW 14.9 % (11.5-15.5); WBC 6.4 k/uL (3.8-10.6)
[2019-03-14 07:17] LABS: Calcium 9.3 mg/dL (8.4-10.2); Potassium 4.2 mmol/L (3.5-5.1)
--- NOTE | 2019-03-14 08:37 | P.PN ---
Subjective Progress Note Date: 03/14/19 Principal diagnosis: CHF secondary to systolic dysfunction This is a pleasant 89-year-old female patient with a past medical history significant for cardiomyopathy with an ejection fraction of 35-40%, who was admitted to the hospital with progressive dyspnea and progressive bilateral lower extent his edema and was diagnosed was congestive heart failure exacerbation secondary to systolic dysfunction as well as bilateral pleural effusion. On follow-up with the patient today, she stated that she is feeling better. The shortness of breath has improved. She denies any symptoms of chest pain or chest discomfort. The oxygen saturation is 95% on 5 L. From the cardiovascular standpoint of view, the patient possibly can be discharged home later on today. Objective - Vital Signs Vital signs: Vital Signs Temp 97.2 F L 03/14/19 04:00 Pulse 66 03/14/19 04:00 Resp 22 03/14/19 04:00 BP 137/58 03/14/19 04:00 Pulse Ox 95 03/14/19 04:00 Intake & Output 03/13/19 03/14/19 03/14/19 18:59 06:59 18:59 Intake Total 840 240 Output Total 300 1700 Balance 540 -1700 240 Weight 73.8 kg Intake: Oral 840 240 Output: Urine 300 1700 Other: Voiding Method Toilet Diaper # Voids 1 1 # Bowel Movements 1 - Constitutional General appearance: Present: no acute distress - Respiratory Respiratory: bilateral: diminished - Cardiovascular Rhythm: regular Heart sounds: normal: S1, S2 Abnormal Heart Sounds: Present: systolic murmur - Labs CBC & Chem 7: 03/14/19 06:50 03/14/19 06:50 Labs: Abnormal Lab Results - Last 24 Hours (Table) 03/13/19 03/13/19 03/13/19 Range/Units 11:26 16:44 20:46 RBC (3.80-5.40) m/uL Hgb (11.4-16.0) gm/dL Hct (34.0-46.0) % BUN (7-17) mg/dL Glucose (74-99) mg/dL POC Glucose (mg/dL) 151 H 149 H 161 H (75-99) mg/dL 03/14/19 03/14/19 03/14/19 Range/Units 06:00 06:50 06:50 RBC 3.38 L (3.80-5.40) m/uL Hgb 11.1 L (11.4-16.0) gm/dL Hct 33.3 L (34.0-46.0) % BUN 30 H (7-17) mg/dL Glucose 126 H (74-99) mg/dL POC Glucose (mg/dL) 166 H (75-99) mg/dL Assessment and Plan Assessment: Assessment #1 congestive heart failure exacerbation secondary to systolic dysfunction #2 evidence off moderate aortic stenosis #3 shortness of breath and bilateral lower extremities edema #4 bilateral pleural effusion #5 multiple comorbid conditions Plan #1 continue the current dose of Lasix by mouth #2 the patient can be discharged home later on today.
[2019-03-14] MEDS: ATORVASTATIN 40 MG TAB PO SCH (09:29)
[2019-03-14] MEDS: METOPROLOL TARTRATE 50 MG TAB PO SCH ×3 (09:29→19:40)
[2019-03-14] MEDS: ISOSORBIDE MONONITRATE ER 30 MG TAB.ER.24H PO SCH (09:29)
[2019-03-14] MEDS: RANOLAZINE 500 MG TAB.ER.12H PO SCH ×2 (09:29→19:40)
[2019-03-14] MEDS: LINAGLIPTIN 5 MG TABLET PO SCH (09:29)
[2019-03-14] MEDS: hydrALAZINE HCL 50 MG TAB PO SCH ×3 (09:29→19:40)
[2019-03-14] MEDS: ESCITALOPRAM 10 MG TAB PO SCH (09:29)
[2019-03-14] MEDS: amLODIPine 10 MG TAB PO SCH (09:29)
[2019-03-14] MEDS: FUROSEMIDE 40 MG TAB PO SCH ×2 (09:30→15:59)
[2019-03-14] MEDS: ASPIRIN 81 MG PO SCH (09:30)
[2019-03-14 11:44] LABS: Glucose,Whole Blood 147 mg/dL (75-99)
[2019-03-14 13:36] LABS: Hemoglobin A1C 5.5 % (4.0-6.0)
--- NOTE | 2019-03-14 14:24 | P.PN ---
Subjective Progress Note Date: 03/14/19 89-year-old female one of Dr. Jones this patient who was hospitalized 7 weeks ago for worsening dyspnea and shortness of breath along with congestive heart failure exacerbation and bilateral pleural effusion was treated medically with home successfully done well patient has been having worsening dyspnea and shortness of breath to the patient and worsening symptom of angina decreased mobility significant PND orthopnea ended up coming to the emergency apartment at [facility] on 03/09/2019 where was seen and evaluated found to have BNP of 20,000 elevated troponin slightly abnormal kidney function and hypomagnesemia chest x-ray showed bilateral pleural effusion mostly heart failure than infection base. Patient was started on IV diuretics consult cardiology and admitted to the hospital for the above problem. 03/11: Patient is feeling much better her hemoglobin dropped down slightly kidney function remain good despite the diuretics, patient seen cardiology echocardiograms performed yesterday with ejection fraction of 35-40 percentile which slightly bit low compared to before, despite elevated troponin patient still on medical management currently no intervention will be done at this point. 03/12: Patient is feeling much better will continue medical management will increased mobility increase physical therapy and the patient therapy continue aggressive diuretics if she is ready to be discharged home in the next 24-48 hours. 03/13: Patient states in general she is feeling better since she came in her breathing status is improved but she remains on oxygen at 6 L. She states recently she increased her oxygen at home to 4 L nasal cannula. Repeat chest x- ray reveals bilateral pleural effusion. Echocardiogram during this hospitalization revealed EF of 35-40% with moderate aortic stenosis. We are planning to monitor her overnight and try to decrease oxygen needs back to her baseline and possible discharge home tomorrow. 03/14: Patient states that she is feeling well today and much better from yesterday. She states her head is clear and she can breathe easier. She denies having any abdominal pain. She is currently on 4 L and ambulating in the hallway and maintained above 92. Cardiology has cleared the patient for discharge. We'll plan to monitor overnight and plan for discharge home tomorrow. Objective - Vital Signs Vital signs: Vital Signs Temp 98.1 F 03/14/19 11:14 Pulse 68 03/14/19 11:14 Resp 20 03/14/19 11:14 BP 158/66 03/14/19 11:14 Pulse Ox 93 L 03/14/19 11:14 Intake & Output 03/13/19 03/14/19 03/14/19 18:59 06:59 18:59 Intake Total 840 240 Output Total 300 1700 Balance 540 -1700 240 Weight 73.8 kg Intake: Oral 840 240 Output: Urine 300 1700 Other: Voiding Method Toilet Diaper # Voids 1 1 # Bowel Movements 1 - Exam Review of systems: CONSTITUTIONAL: Denies fever, denies chills. EYES: No icterus sclerae, no conjunctivitis. EARS, NOSE, MOUTH, THROAT, and FACE: No sore throat, lymphadenopathy, carotid bruits or deformity. RESPIRATORY: Denies shortness of breath with no cough wheezes. CARDIOVASCULAR: Denies chest pain, palpitation, PND, orthopnea, angina and edema. GASTROINTESTINAL: No Abd pain, Nausea or vomiting, no Diarrhea or constipation, No GI Bleed, no distention or masses. GENITOURINARY: Negative for Hematuria or UTI, no kidney stones. INTEGUMENT/BREAST: Negative for any muscular injury with mild osteoarthritis.. HEMATOLOGIC/LYMPHATIC: Negative for bleed or purpura. MUSCULOSKELTAL: Worsening arthralgia and myalgia. NEURLOGICAL: No LOC, Sz or syncope, blurred vision dizziness or abnormality.. BEHAVIORAL/PSYCH: Negative. ENDOCRINE: Negative. Physical examination: General Appearance: Alert, cooperative, no distress, appears stated age. Patient resting in chair. Neck HEENT: Supple, no lymphadenopathy, no thyroid enlargement, no carotid bruits. Lungs: Diminished bilaterally. Chest Wall: Decrease expansion bilaterally with deep inspiration worsening in the right side than the left side no tenderness and no deformity was found on exam, no costochondral pain or discomfort. Heart: Irregular rate and rhythm, S1, S2 positive S3 positive 2/6 ejection systolic murmur, no rub or gallop. Back: Symmetric, no curvature, ROM normal, no CVA tenderness. Abdomen: Soft, non-tender, bowel sounds active all four quadrants, no masses, no organomegaly. Extremities: Extremities normal, atraumatic, no cyanosis or edema. Pulses: 2+ and symmetric. Skin: Skin color, texture, tugor normal, no rashes or lesions. Neurologic: Alert oriented x3 cranial nerves II through XII intact, no motor deficit, no abnormal balance or gait. - Labs CBC & Chem 7: 03/14/19 06:50 03/14/19 06:50 Labs: Abnormal Lab Results - Last 24 Hours (Table) 03/13/19 03/13/19 03/13/19 Range/Units 11:26 16:44 20:46 RBC (3.80-5.40) m/uL Hgb (11.4-16.0) gm/dL Hct (34.0-46.0) % BUN (7-17) mg/dL Glucose (74-99) mg/dL POC Glucose (mg/dL) 151 H 149 H 161 H (75-99) mg/dL 03/14/19 03/14/19 03/14/19 Range/Units 06:00 06:50 06:50 RBC 3.38 L (3.80-5.40) m/uL Hgb 11.1 L (11.4-16.0) gm/dL Hct 33.3 L (34.0-46.0) % BUN 30 H (7-17) mg/dL Glucose 126 H (74-99) mg/dL POC Glucose (mg/dL) 166 H (75-99) mg/dL Assessment and Plan Plan: 1 severe dyspnea secondary to acute on chronic systolic heart failure, moderate aortic stenosis, bilateral pleural effusions. Patient is currently on oral Lasix. Cardiology consult appreciated. Continue Ranexa 1000 mg twice daily, Imdur 30 mg daily. No change in medications. Increase physical activity. 2 acute on chronic hypoxic respiratory failure. Patient is currently on 4 L. Home oxygen is up to 4 L recently the patient is normally on 3 L nasal cannula at home. Try to increase activity and decreased oxygen usage. Saline rinse for nose added. 3 bilateral pleural effusion: No need for thoracentesis. 4 hypertension. Continue Norvasc 10 mg daily, Lasix 40 mg twice daily, hydralazine 25 mg 3 times daily, Imdur 30 mg daily, Lopressor 50 mg 3 times daily. 5 chronic kidney disease stage II. 6 type 2 diabetes. Continue NovoLog scale before meals and at bedtime, Tradjenta. 7 non-ST segment elevation myocardial infarction with plan for medical management. 8 memory loss: Most likely Alzheimer disease, patient remain on galantamine 4 mg twice a day. 9 history of coronary artery disease. 10 recurrent depression: Patient has been on Lexapro 10 mg a day. 11 hyperlipidemia: Remain on Lipitor 40 mg daily. Discharge plan: Home with [facility] tomorrow Impression and plan of care have been directed as dictated by the signing physician. Donita Padron nurse practitioner acting as scribe for signing physici an.
[2019-03-14 16:47] LABS: Glucose,Whole Blood 142 mg/dL (75-99)
[2019-03-14 19:44] VITALS: RESP 20
[2019-03-14 20:53] LABS: Glucose,Whole Blood 139 mg/dL (75-99)
[2019-03-15 06:15] LABS: Glucose,Whole Blood 149 mg/dL (75-99)
[2019-03-15] MEDS: GALANTAMINE 4 MG PO SCH (06:15)
[2019-03-15] MEDS: INSULIN ASPART (NovoLOG) 100 UNIT/ML VIAL SQ SCH ×2 (06:15→12:27)
[2019-03-15 06:51] LABS: Basophils % (A) 1 %; Eosinophils # (A) 0.1 k/uL (0-0.7); Eosinophils % (A) 2 %; HCT 33.3 % (34.0-46.0); HGB 10.9 gm/dL (11.4-16.0); Lymphocytes # (A) 1.6 k/uL (1.0-4.8); Lymphocytes % (A) 29 %; MCH 32.2 pg (25.0-35.0); MCHC 32.6 g/dL (31.0-37.0); MCV 98.6 fL (80.0-100.0); Macrocytosis Slight; Monocytes # (A) 0.3 k/uL (0-1.0); Monocytes % (A) 5 %; Neutrophils # (A) 3.4 k/uL (1.3-7.7); Neutrophils % (A) 61 %; Platelet Count 295 k/uL (150-450); RBC 3.38 m/uL (3.80-5.40); RDW 15.2 % (11.5-15.5); WBC 5.5 k/uL (3.8-10.6)
[2019-03-15] MEDS ORDERED: SEMAGLUTIDE 2 MG SQ SCH (09:00)
[2019-03-15] MEDS: FUROSEMIDE 40 MG TAB PO SCH (09:33)
[2019-03-15] MEDS: RANOLAZINE 500 MG TAB.ER.12H PO SCH (09:33)
[2019-03-15] MEDS: METOPROLOL TARTRATE 50 MG TAB PO SCH (09:33)
[2019-03-15] MEDS: LINAGLIPTIN 5 MG TABLET PO SCH (09:33)
[2019-03-15] MEDS: ESCITALOPRAM 10 MG TAB PO SCH (09:33)
[2019-03-15] MEDS: ISOSORBIDE MONONITRATE ER 30 MG TAB.ER.24H PO SCH (09:33)
[2019-03-15] MEDS: hydrALAZINE HCL 50 MG TAB PO SCH (09:33)
[2019-03-15] MEDS: ASPIRIN 81 MG PO SCH (09:33)
[2019-03-15] MEDS: ATORVASTATIN 40 MG TAB PO SCH (09:33)
[2019-03-15] MEDS: amLODIPine 10 MG TAB PO SCH (09:33)
[2019-03-15 11:26] VITALS: TEMP 98.1
[2019-03-15 11:57] LABS: Glucose,Whole Blood 152 mg/dL (75-99)
--- NOTE | 2019-03-15 12:12 | XR ---
EXAMINATION TYPE: XR chest 1V portable DATE OF EXAM: 03/15/2019 HISTORY: Shortness of breath. COMPARISON: 03/12/2019 TECHNIQUE: Single view of the chest is submitted. FINDINGS: Small basilar pleural effusions with underlying atelectasis and/or infiltrates. Mild pulmonary venous congestion. Overall appearance is stable. The heart is stable. Hilar and mediastinal structures are within normal limits. Degenerative changes are seen of the dorsal spine. IMPRESSION: 1. Small basilar pleural effusions with underlying atelectasis and/or infiltrates. Mild pulmonary ve nous congestion. Overall appearance is stable.
--- NOTE | 2019-03-15 12:30 | P.PN ---
Subjective Progress Note Date: 03/15/19 Principal diagnosis: CHF secondary to systolic dysfunction This is a pleasant 89-year-old female patient with a past medical history significant for cardiomyopathy with an ejection fraction of 35-40%, who was admitted to the hospital with progressive dyspnea and progressive bilateral lower extent his edema and was diagnosed was congestive heart failure exacerbation secondary to systolic dysfunction as well as bilateral pleural effusion. On follow-up with the patient today, she is feeling better indeterminable shortness of breath but she still have bilateral rhonchi on examination. Beside that she still requiring about 3 L to maintain her oxygen in the 90s. I'm going to obtain a chest x-ray. The patient possibly can be discharged later on today. Objective - Vital Signs Vital signs: Vital Signs Temp 98.1 F 03/15/19 08:00 Pulse 64 03/15/19 08:00 Resp 20 03/15/19 08:00 BP 126/61 03/15/19 08:00 Pulse Ox 95 03/15/19 08:00 Intake & Output 03/14/19 03/15/19 03/15/19 18:59 06:59 18:59 Intake Total 960 360 Output Total 300 Balance 660 360 Weight 73.4 kg Intake: Oral 960 360 Output: Urine 300 Other: Voiding Method Toilet Diaper # Voids 1 1 0 # Bowel Movements 1 0 - Constitutional General appearance: Present: no acute distress - Respiratory Respiratory: bilateral: diminished, rales - Cardiovascular Rhythm: regular Heart sounds: normal: S1, S2 - Labs CBC & Chem 7: 03/15/19 06:21 03/14/19 06:50 Labs: Abnormal Lab Results - Last 24 Hours (Table) 03/14/19 03/14/19 03/15/19 Range/Units 16:44 20:51 06:14 RBC (3.80-5.40) m/uL Hgb (11.4-16.0) gm/dL Hct (34.0-46.0) % POC Glucose (mg/dL) 142 H 139 H 149 H (75-99) mg/dL 03/15/19 03/15/19 Range/Units 06:21 11:55 RBC 3.38 L (3.80-5.40) m/uL Hgb 10.9 L (11.4-16.0) gm/dL Hct 33.3 L (34.0-46.0) % POC Glucose (mg/dL) 152 H (75-99) mg/dL Assessment and Plan Assessment: Assessment #1 congestive heart failure exacerbation secondary to systolic dysfunction #2 evidence off moderate aortic stenosis #3 shortness of breath and bilateral lower extremities edema #4 bilateral pleural effusion #5 multiple comorbid conditions Plan #1 continue the current dose of Lasix by mouth #2 obtain a chest x-ray #3 possible discharge in the next 24 hours.
[2019-03-15 14:10] VITALS: BP 124/62; PULSE 68
--- NOTE | 2019-03-15 15:38 | P.DS ---
Providers Date of admission: 03/09/19 23:28 Expected date of discharge: 03/15/19 Attending physician: Gareth Michaud Consults: 03/09/19 23:22 Consult Physician Routine Consulting Provider: Lee Sullivan Consult Reason/Comments: CHF, elevated troponin Do you want consulting provider notified?: Yes Primary care physician: Yee Sales [facility] Course: 89-year-old female one of Dr. Sales this patient who was hospitalized 7 weeks ago for worsening dyspnea and shortness of breath along with congestive heart failure exacerbation and bilateral pleural effusion was treated medically with home successfully done well patient has been having worsening dyspnea and shortness of breath to the patient and worsening symptom of angina decreased mobility significant PND orthopnea ended up coming to the emergency apartment at [facility] on 03/09/2019 where was seen and evaluated found to have BNP of 20,000 elevated troponin slightly abnormal kidney function and hypomagnesemia chest x-ray showed bilateral pleural effusion mostly heart failure than infection base. Patient was started on IV diuretics consult cardiology and admitted to the hospital for the above problem. 03/11: Patient is feeling much better her hemoglobin dropped down slightly kidney function remain good despite the diuretics, patient seen cardiology echocardiograms performed yesterday with ejection fraction of 35-40 percentile which slightly bit low compared to before, despite elevated troponin patient still on medical management currently no intervention will be done at this point. 03/12: Patient is feeling much better will continue medical management will increased mobility increase physical therapy and the patient therapy continue aggressive diuretics if she is ready to be discharged home in the next 24-48 hours. 03/13: Patient states in general she is feeling better since she came in her breathing status is improved but she remains on oxygen at 6 L. She states recently she increased her oxygen at home to 4 L nasal cannula. Repeat chest x- ray reveals bilateral pleural effusion. Echocardiogram during this hospitalization revealed EF of 35-40% with moderate aortic stenosis. We are planning to monitor her overnight and try to decrease oxygen needs back to her baseline and possible discharge home tomorrow. 03/14: Patient states that she is feeling well today and much better from yesterday. She states her head is clear and she can breathe easier. She denies having any abdominal pain. She is currently on 4 L and ambulating in the hallway and maintained above 92. Cardiology has cleared the patient for discharge. We'll plan to monitor overnight and plan for discharge home tomorrow. 03/15: Pulse ox is running 93% on 3 L. white count is 5.5 and hemoglobin 10.9, blo od sugars running between 139-149. Repeat chest x-ray shows small basilar pleural effusions with underlying atelectasis and/or infiltrates. Mild pulmonary venous congestion. Overall appearance is stable. Patient has been ambulated by nursing today and continues to have a pulse ox of 93% on 3 L. She has decreased pedal edema. She states she had a bowel movement last night and this morning. She denies any chest pain or shortness of breath at rest. Patient will be discharged home today in stable condition. Discharge diagnoses: 1 acute on chronic systolic heart failure 2 moderate aortic stenosis 3 bilateral pleural effusion 4 hypertension 5 chronic kidney disease stage II 6 type 2 diabetes 7 non-ST segment elevation myocardial infarction 8 memory loss: Most likely Alzheimer disease 9 known coronary artery disease. 10 recurrent depression 11 hyperlipidemia Discharge plan: Home with [facility] Impression and plan of care have been directed as dictated by the signing physician. Donita Padron nurse practitioner acting as scribe for signing physician. Patient Condition at Discharge: Good Plan - Discharge Summary Discharge Rx Participant: No New Discharge Prescriptions: New Saline Nasal Gel [[place] Nasal Gel] 1 applic TOPICAL Q4HR PRN gm PRN Reason: Dry Nasal Passages Furosemide [Lasix] 40 mg PO BID@0900,1600 #60 tab Continue Aspirin [Adult Low Dose Aspirin EC] 81 mg PO DAILY Famotidine [Pepcid] 20 mg PO DAILY Ranolazine [Ranexa] 1,000 mg PO Q12HR #60 tab.er.12h Atorvastatin [Lipitor] 40 mg PO DAILY Galantamine [Razadyne] 4 mg PO AC-BID Escitalopram [Lexapro] 10 mg PO DAILY amLODIPine [Norvasc] 10 mg PO DAILY #30 tab Isosorbide Mononitrate ER [Imdur] 30 mg PO DAILY #30 tab.er.24h Ondansetron [Zofran] 4 mg PO Q8HR PRN PRN Reason: Nausea Metoprolol Tartrate [Lopressor] 50 mg PO TID Semaglutide [Ozempic] 2 mg SQ WE Linagliptin [Tradjenta] 5 mg PO DAILY hydrALAZINE HCL [Apresoline] 25 mg PO TID Discontinued Furosemide [Lasix] 20 mg PO DAILY Discharge Medication List Aspirin [Adult Low Dose Aspirin EC] 81 mg PO DAILY 11/21/17 [History] Famotidine [Pepcid] 20 mg PO DAILY 11/21/17 [History] Ranolazine [Ranexa] 1,000 mg PO Q12HR #60 tab.er.12h 11/25/17 [Rx] Atorvastatin [Lipitor] 40 mg PO DAILY 01/02/18 [History] Galantamine [Razadyne] 4 mg PO AC-BID 01/02/18 [History] Escitalopram [Lexapro] 10 mg PO DAILY 12/20/18 [History] amLODIPine [Norvasc] 10 mg PO DAILY #30 tab 12/25/18 [Rx] Isosorbide Mononitrate ER [Imdur] 30 mg PO DAILY #30 tab.er.24h 01/05/19 [Rx] Metoprolol Tartrate [Lopressor] 50 mg PO TID 01/13/19 [History] Ondansetron [Zofran] 4 mg PO Q8HR PRN 01/13/19 [History] Linagliptin [Tradjenta] 5 mg PO DAILY 03/09/19 [History] Semaglutide [Ozempic] 2 mg SQ WE 03/09/19 [History] hydrALAZINE HCL [Apresoline] 25 mg PO TID 03/09/19 [History] Furosemide [Lasix] 40 mg PO BID@0900,1600 #60 tab 03/15/19 [Rx] Saline Nasal Gel [[place] Nasal Gel] 1 applic TOPICAL Q4HR PRN gm 03/15/19 [Rx] Follow up Appointment(s)/Referral(s): Yee Sales MD [Primary Care Provider] - 1 Week (Dr[place] Sales [place] at this time. She is not back until March 28. Dr. Gonzalez has no availability until this time as well. Please call the office to find sooner appointment. Thank you. ) [facility], [NON-STAFF] - Carlos Morrison MD [STAFF PHYSICIAN] - 03/24/19 11:15 am (Previously scheduled apppointment, notified about hospital stay.) Ambulatory/Diagnostic Orders: Basic Metabolic Panel [LAB.AMB] Time Frame: 3 Days, Location: None Selected Patient Instructions/Handouts: Heart Failure (DC), Heart Healthy Diet (DC) Discharge Disposition: HOME WITH HOME HEALTH SERVICES
== END 2019-03-15 15:09 | disposition home health service (06) | DRG 280 ==
LOC: EC 20:25 → 3SCARD 23:28
PROVIDERS: ADMIT Internal Medicine Geriatric Medicine; ATTEND Internal Medicine Geriatric Medicine
DX: I13.0 Hypertensive heart and chronic kidney disease with heart failure and stage 1 through stage 4 chronic kidney disease, or unspecified chronic kidney disease (principal); I21.4 Non-ST elevation (NSTEMI) myocardial infarction; I50.23 Acute on chronic systolic (congestive) heart failure; J80 Acute respiratory distress syndrome; N17.9 Acute kidney failure, unspecified; F33.9 Major depressive disorder, recurrent, unspecified; Z87.891 Personal history of nicotine dependence; E11.22 Type 2 diabetes mellitus with diabetic chronic kidney disease; E78.5 Hyperlipidemia, unspecified; E83.42 Hypomagnesemia; G30.9 Alzheimer's disease, unspecified; F02.80 Dementia in other diseases classified elsewhere, unspecified severity, without behavioral disturbance, psychotic disturbance, mood disturbance, and anxiety; H35.30 Unspecified macular degeneration; I25.10 Atherosclerotic heart disease of native coronary artery without angina pectoris; I25.2 Old myocardial infarction; I35.0 Nonrheumatic aortic (valve) stenosis; I42.9 Cardiomyopathy, unspecified; N18.2 Chronic kidney disease, stage 2 (mild); Z79.82 Long term (current) use of aspirin; Z79.899 Other long term (current) drug therapy; Z82.49 Family history of ischemic heart disease and other diseases of the circulatory system; Z83.3 Family history of diabetes mellitus; Z86.73 Personal history of transient ischemic attack (TIA), and cerebral infarction without residual deficits; Z82.0 Family history of epilepsy and other diseases of the nervous system; Z84.1 Family history of disorders of kidney and ureter; I49.9 Cardiac arrhythmia, unspecified; Z88.6 Allergy status to analgesic agent; Z88.5 Allergy status to narcotic agent; Z88.8 Allergy status to other drugs, medicaments and biological substances; R29.6 Repeated falls; Z91.81 History of falling; F40.240 Claustrophobia; H54.3 Unqualified visual loss, both eyes; Z95.5 Presence of coronary angioplasty implant and graft
CPT/HCPCS: 36415; 71045; 71046; 80048; 80053; 82550; 83036; 83735; 83880; 84484; 85025; 85610; 85730; 93005; 93306; 94640; 94760; 96365; 96374; 96375; 99291

== ENCOUNTER 2019-03-20 12:53 | Inpatient (IN) | payer MEDICARE, BC ==
[2019-03-20] MEDS ORDERED: SODIUM CHLORIDE 0.9% 1,000 ML IV ONE (13:01)
--- NOTE | 2019-03-20 13:11 | ED ---
General Adult HPI - General Chief complaint: Altered Mental Status Stated complaint: Altered Mental Status Time Seen by Provider: 03/20/19 12:55 Source: patient, RN notes reviewed Mode of arrival: EMS Limitations: no limitations - History of Present Illness Initial comments: This is an 89-year-old female presents emergency Department with altered mental status EMS was called because the patient wasn't responding to the family member at home. Patient groans to pain but is nonverbal at all. Patient moved all 4 extremities for EMS but has yet to do so for us but she's only verbally responding to painful stimuli with groans. No other history is available this time - Related Data Home Medications Medication Instructions Recorded Confirmed Aspirin [Adult Low Dose Aspirin EC] 81 mg PO DAILY 11/21/17 03/20/19 Famotidine [Pepcid] 20 mg PO DAILY 11/21/17 03/20/19 Atorvastatin [Lipitor] 40 mg PO DAILY 01/02/18 03/20/19 Galantamine [Razadyne] 4 mg PO AC-BID 01/02/18 03/20/19 Escitalopram [Lexapro] 10 mg PO DAILY 12/20/18 03/20/19 Metoprolol Tartrate [Lopressor] 50 mg PO TID 01/13/19 03/20/19 Ondansetron [Zofran] 4 mg PO Q8HR PRN 01/13/19 03/20/19 Linagliptin [Tradjenta] 5 mg PO DAILY 03/09/19 03/20/19 Semaglutide [Ozempic] 2 mg SQ WE 03/09/19 03/20/19 hydrALAZINE HCL [Apresoline] 25 mg PO TID 03/09/19 03/20/19 Previous Rx's Medication Instructions Recorded Ranolazine [Ranexa] 1,000 mg PO Q12HR #60 tab.er.12h 11/25/17 amLODIPine [Norvasc] 10 mg PO DAILY #30 tab 12/25/18 Isosorbide Mononitrate ER [Imdur] 30 mg PO DAILY #30 tab.er.24h 01/05/19 Furosemide [Lasix] 40 mg PO BID@0900,1600 #60 tab 03/15/19 Saline Nasal Gel [[place] Nasal Gel] 1 applic TOPICAL Q4HR PRN gm 03/15/19 Allergies Allergy/AdvReac Type Severity Reaction Status Date / Time hydrocodone [From [place]] Allergy Rash/Hives Verified 03/20/19 13:05 naproxen sodium [From Aleve] Allergy Itching,bessie Verified 03/20/19 13:05 h glimepiride [From Amaryl] AdvReac Nausea & Verified 03/20/19 13:05 Vomiting Review of Systems ROS Statement: Those systems with pertinent positive or pertinent negative responses have been documented in the HPI. ROS Other: All systems not noted in ROS Statement are negative. 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 Last Myocardial Infarction Date:: 11/18/17 History of Any Multi-Drug Resistant Organisms: None Reported Past Surgical History: Appendectomy, Back Surgery, Cholecystectomy, Heart Catheterization With Stent Additional Past Surgical History / Comment(s): Low back surgery, cervical surgery, R wrist carpal tunnel release, colonoscopy (not completed d/t poor prep) about 10 yrs ago, EGD 01/2018 d/t abdominal pain. Past Anesthesia/Blood Transfusion Reactions: No Reported Reaction Additional Past Anesthesia/Blood Transfusion Reaction / Comment(s): Pt has clausterphobia. Date of Last Stent Placement:: 11/18/17 Past Psychological History: Depression Smoking Status: Former smoker Past Alcohol Use History: None Reported Past Drug Use History: None Reported - Past Family History Father Additional Family Medical History / Comment(s): Father at age 91 from old age. Mother Additional Family Medical History / Comment(s): Mother at age 85 with history of lupus. Brother(s) Additional Family Medical History / Comment(s): Patient's siblings have history of coronary artery disease, diabetes, hypertension, macular degeneration. Daughter(s) Additional Family Medical History / Comment(s): Patient has 11 children; 6 daughters and 5 sons. 3 have and 2 from kidney failure and one was mur dered. Sister(s) Additional Family Medical History / Comment(s): Pt had a sister live to be 102 yrs old. General Exam - General Exam Comments Initial Comments: GENERAL: Patient is well-developed and well-nourished. Patient is only responsive with groans with painful stimuli ENT: Neck is soft and supple. EYES: The sclera were anicteric and conjunctiva were pink and moist. PULMONARY: Recent is giving a very poor effort and has crackles in the right base CARDIOVASCULAR: There is a regular rate and rhythm without any murmurs gallops or rubs. ABDOMEN: Soft and nontender and has no distention. SKIN: Skin is clear with no lesions or rashes and otherwise unremarkable. NEUROLOGIC: Patient is only responsive with moaning to painful stimuli MUSCULOSKELETAL: Unable to assess LYMPHATICS: No significant lymphadenopathy is noted PSYCHIATRIC: Unable to assess Limitations: no limitations Course Vital Signs 03/20/19 03/20/19 12:57 13:17 Temperature 97.4 F L Pulse Rate 61 61 Respiratory 18 18 Rate Blood Pressure 81/42 88/77 O2 Sat by Pulse 96 98 Oximetry Medical Decision Making - Medical Decision Making EKG shows sinus rhythm at 65 bpm. It was 270 QRS is 124 QTC is 498 QTC is 517 per patient's EKG shows no ST segment elevation or depression patient has left bundle branch block. Patient's chest x-ray shows pulmonary edema. Patient's family is refusing to let us give Lasix to the patient. When patient arrived she was only arousable with painful stimuli I recently walked into the room and she was alert and oriented 3 and stated she felt considerably better. I went in again asked the family about giving Lasix and they completely refused. Spoke with Dr. Mayo agreed to admit the patient admitted the patient wrote admitting orders. - Lab Data Result diagrams: 03/20/19 13:10 03/20/19 13:10 Lab Results 03/20/19 03/20/19 03/20/19 Range/Units 13:10 13:10 13:10 WBC 10.4 (3.8-10.6) k/uL RBC 3.22 L (3.80-5.40) m/uL Hgb 10.1 L (11.4-16.0) gm/dL Hct 32.0 L (34.0-46.0) % MCV 99.3 (80.0-100.0) fL MCH 31.5 (25.0-35.0) pg MCHC 31.7 (31.0-37.0) g/dL RDW 14.3 (11.5-15.5) % Plt Count 347 (150-450) k/uL Neutrophils % 81 % Lymphocytes % 13 % Monocytes % 4 % Eosinophils % 1 % Basophils % 0 % Neutrophils # 8.5 H (1.3-7.7) k/uL Lymphocytes # 1.3 (1.0-4.8) k/uL Monocytes # 0.4 (0-1.0) k/uL Eosinophils # 0.1 (0-0.7) k/uL Basophils # 0.0 (0-0.2) k/uL Manual Slide Review Performed PT (9.0-12.0) sec INR (<1.2) APTT (22.0-30.0) sec Sodium 137 (137-145) mmol/L Potassium 4.8 (3.5-5.1) mmol/L Chloride 102 (98-107) mmol/L Carbon Dioxide 24 (22-30) mmol/L Anion Gap 11 mmol/L BUN 29 H (7-17) mg/dL Creatinine 1.11 H (0.52-1.04) mg/dL Est GFR (CKD-EPI)AfAm 52 (>60 ml/min/1.73 sqM) Est GFR (CKD-EPI)NonAf 45 (>60 ml/min/1.73 sqM) Glucose 203 H (74-99) mg/dL POC Glucose (mg/dL) (75-99) mg/dL POC Glu Warehouse Receiver ID Plasma Lactic Acid Maximus 1.9 (0.7-2.0) mmol/L Calcium 9.2 (8.4-10.2) mg/dL Total Bilirubin 1.9 H (0.2-1.3) mg/dL AST 26 (14-36) U/L ALT 32 (9-52) U/L Alkaline Phosphatase 125 (38-126) U/L Ammonia <9 (<30) umol/L Troponin I (0.000-0.034) ng/mL NT-Pro-B Natriuret Pep pg/mL Total Protein 5.7 L (6.3-8.2) g/dL Albumin 3.4 L (3.5-5.0) g/dL 03/20/19 03/20/19 03/20/19 Range/Units 13:10 13:10 13:10 WBC (3.8-10.6) k/uL RBC (3.80-5.40) m/uL Hgb (11.4-16.0) gm/dL Hct (34.0-46.0) % MCV (80.0-100.0) fL MCH (25.0-35.0) pg MCHC (31.0-37.0) g/dL RDW (11.5-15.5) % Plt Count (150-450) k/uL Neutrophils % % Lymphocytes % % Monocytes % % Eosinophils % % Basophils % % Neutrophils # (1.3-7.7) k/uL Lymphocytes # (1.0-4.8) k/uL Monocytes # (0-1.0) k/uL Eosinophils # (0-0.7) k/uL Basophils # (0-0.2) k/uL Manual Slide Review PT 11.8 (9.0-12.0) sec INR 1.1 (<1.2) APTT 20.8 L (22.0-30.0) sec Sodium (137-145) mmol/L Potassium (3.5-5.1) mmol/L Chloride (98-107) mmol/L Carbon Dioxide (22-30) mmol/L Anion Gap mmol/L BUN (7-17) mg/dL Creatinine (0.52-1.04) mg/dL Est GFR (CKD-EPI)AfAm (>60 ml/min/1.73 sqM) Est GFR (CKD-EPI)NonAf (>60 ml/min/1.73 sqM) Glucose (74-99) mg/dL POC Glucose (mg/dL) (75-99) mg/dL POC Glu Warehouse Receiver ID Plasma Lactic Acid Maximus (0.7-2.0) mmol/L Calcium (8.4-10.2) mg/dL Total Bilirubin (0.2-1.3) mg/dL AST (14-36) U/L ALT (9-52) U/L Alkaline Phosphatase (38-126) U/L Ammonia (<30) umol/L Troponin I 0.021 (0.000-0.034) ng/mL NT-Pro-B Natriuret Pep 48018 pg/mL Total Protein (6.3-8.2) g/dL Albumin (3.5-5.0) g/dL 03/20/19 Range/Units 13:12 WBC (3.8-10.6) k/uL RBC (3.80-5.40) m/uL Hgb (11.4-16.0) gm/dL Hct (34.0-46.0) % MCV (80.0-100.0) fL MCH (25.0-35.0) pg MCHC (31.0-37.0) g/dL RDW (11.5-15.5) % Plt Count (150-450) k/uL Neutrophils % % Lymphocytes % % Monocytes % % Eosinophils % % Basophils % % Neutrophils # (1.3-7.7) k/uL Lymphocytes # (1.0-4.8) k/uL Monocytes # (0-1.0) k/uL Eosinophils # (0-0.7) k/uL Basophils # (0-0.2) k/uL Manual Slide Review PT (9.0-12.0) sec INR (<1.2) APTT (22.0-30.0) sec Sodium (137-145) mmol/L Potassium (3.5-5.1) mmol/L Chloride (98-107) mmol/L Carbon Dioxide (22-30) mmol/L Anion Gap mmol/L BUN (7-17) mg/dL Creatinine (0.52-1.04) mg/dL Est GFR (CKD-EPI)AfAm (>60 ml/min/1.73 sqM) Est GFR (CKD-EPI)NonAf (>60 ml/min/1.73 sqM) Glucose (74-99) mg/dL POC Glucose (mg/dL) 226 H (75-99) mg/dL POC Glu Warehouse Receiver ID Alexa Marie Plasma Lactic Acid Maximus (0.7-2.0) mmol/L Calcium (8.4-10.2) mg/dL Total Bilirubin (0.2-1.3) mg/dL AST (14-36) U/L ALT (9-52) U/L Alkaline Phosphatase (38-126) U/L Ammonia (<30) umol/L Troponin I (0.000-0.034) ng/mL NT-Pro-B Natriuret Pep pg/mL Total Protein (6.3-8.2) g/dL Albumin (3.5-5.0) g/dL Critical Care Time Critical Care Time: Yes Total Critical Care Time: 35 Disposition Clinical Impression: Acute pulmonary edema, Altered mental status, Acute vomiting Disposition: ADMITTED IP TO THIS HOSP Referrals: Yee Sales MD [Primary Care Provider] - 1-2 days Time of Disposition: 15:58
[2019-03-20 13:14] LABS: Glucose,Whole Blood 226 mg/dL (75-99)
[2019-03-20 13:22] LABS: Basophils % (A) 0 %; Eosinophils # (A) 0.1 k/uL (0-0.7); Eosinophils % (A) 1 %; HGB 10.1 gm/dL (11.4-16.0); Lymphocytes # (A) 1.3 k/uL (1.0-4.8); Lymphocytes % (A) 13 %; MCH 31.5 pg (25.0-35.0); MCHC 31.7 g/dL (31.0-37.0); MCV 99.3 fL (80.0-100.0); Mean Platelet Volume 6.4; Monocytes # (A) 0.4 k/uL (0-1.0); Monocytes % (A) 4 %; Neutrophils # (A) 8.5 k/uL (1.3-7.7); Neutrophils % (A) 81 %; Platelet Count 347 k/uL (150-450); RBC 3.22 m/uL (3.80-5.40); RDW 14.3 % (11.5-15.5); WBC 10.4 k/uL (3.8-10.6)
[2019-03-20 13:31] LABS: Ammonia <9 umol/L (<30); Lactic Acid, Venous 1.9 mmol/L (0.7-2.0)
[2019-03-20 13:32] LABS: Albumin 3.4 g/dL (3.5-5.0); Calcium 9.2 mg/dL (8.4-10.2); Potassium 4.8 mmol/L (3.5-5.1); Total Bilirubin 1.9 mg/dL (0.2-1.3); Total Protein 5.7 g/dL (6.3-8.2)
[2019-03-20 13:46] LABS: INR 1.1 (<1.2); Prothrombin Time 11.8 sec (9.0-12.0)
[2019-03-20 13:53] LABS: Partial Thromboplastin Time 20.8 sec (22.0-30.0)
[2019-03-20] MEDS ORDERED: ONDANSETRON 4 MG/2 ML VIAL IVP STA (14:05)
--- NOTE | 2019-03-20 14:10 | CT ---
EXAMINATION TYPE: CT brain wo con DATE OF EXAM: 03/20/2019 HISTORY: Decreased mental status CT DLP: 1027.4 mGycm. Automated Exposure Control for Dose Reduction was Utilized. TECHNIQUE: CT scan of the head is performed without contrast. COMPARISON: CT brain January 15, 2018. FINDINGS: There is no acute intracranial hemorrhage or midline shift identified. There is diffuse v entricular and sulcal prominence consistent with diffuse age-related cerebral atrophy. There is low- attenuation in the periventricular white matter consistent with chronic small vessel ischemic change. The globes are intact and the visualized sinuses are clear. Vascular calcification distal interna l carotid arteries bilaterally is present. IMPRESSION: No acute intracranial hemorrhage or midline shift. There is moderate diffuse age-relate d cerebral atrophy and chronic small vessel ischemic change redemonstrated. No significant change fr om prior.
--- NOTE | 2019-03-20 14:12 | XR ---
EXAMINATION TYPE: XR chest 1V portable DATE OF EXAM: 03/20/2019 COMPARISON: Chest x-ray 5 days ago. HISTORY: Altered mental status and weakness. TECHNIQUE: Single frontal view of the chest is obtained. FINDINGS: Anterior fusion plate lower cervical spine is partially imaged. Osseous structures are dem ineralized. There is persistent cardiomegaly without postcontrast aorta. There is persistent central vascular congestion and bibasilar opacities. Upper lungs remain clear without pneumothorax. IMPRESSION: Findings consistent with CHF exacerbation redemonstrated as there is cardiomegaly with c entral vascular congestion and small bilateral pleural effusions all redemonstrated.
[2019-03-20] MEDS ORDERED: FUROSEMIDE 10 MG/ML 10 ML VIAL IV STA (15:00)
[2019-03-20] MEDS ORDERED: NITROGLYCERIN OINT 1 INCH/GM PACKET TOPICAL STA (15:00)
[2019-03-20] MEDS ORDERED: FUROSEMIDE 10 MG/ML 2 ML VIAL IV ONE (15:19)
[2019-03-20] MEDS ORDERED: ASPIRIN 325 MG TAB PO STA (16:06)
[2019-03-20] MEDS ORDERED: FUROSEMIDE 10 MG/ML 4 ML VIAL IV STA (17:21)
[2019-03-20 17:36] LABS: Appearance,Urine Clear (Clear); Bilirubin,Urine Negative (Negative); Blood,Urine Negative (Negative); Color,Urine Yellow; Glucose,Urine (UA) Negative (Negative); Ketones,Urine Negative (Negative); Leukocyte Esterase,Urine Negative (Negative); Nitrite,Urine Negative (Negative); PH, Urine 5.5 (5.0-8.0); Protein,Urine Negative (Negative); Specific Gravity,Urine 1.009 (1.001-1.035); Urobilinogen,Urine <2.0 mg/dL (<2.0)
--- NOTE | 2019-03-20 17:50 | P.HPIM ---
History of Present Illness H&P Date: 03/20/19 89-year-old female one of Dr. 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 According to the daughter bedside patient became nonverbal and unresponsive and was brought to the ER. On evaluation in the ER patient was only responsive to painful stimulus. Within few minutes patient recovered and was oriented 3. Brain CT was negative for any new strokes. Venous blood gas was unremarkable. Labs ordered suggestive of hemoglobin of 10.1 stable as compared to the previous labs, BUN/creatinine 29 and creatinine 1.1, glucose 220 6B UN 29, BNP 12,400, troponin 0.021. Echo obtained during last admission suggest EF of 35-40% with apical inferior lateral hypokinesia. Cardiology and and pulmonary was consulted. Chest x-ray sugges tive of pulmonary venous congestion and cardiomegaly. The daughter bedside and was not relating to give Lasix to the patient. On evaluation in the ER patient was currently on 6 L of oxygen saturating well but very short of breath trying to catch her breath on 6 L with symptoms positive for paroxysmal nocturnal dyspnea, orthopnea with bilateral lower extremity edema, no fever no chills no cough production. White is obtained suggest night temp of 98.6, pulse 82 respiratory rate 20 blood pressure 146/72 saturating at 91% On 6 L spelled since patient was short of breath on 6 L patient was switched to a nonrebreather and will be monitored overnight in the ICU Review of Systems Constitutional: Denies chills, Denies fever, Denies lethargy, Denies malaise, Denies poor appetite, Denies weakness, Denies weight loss Eyes: denies decreased vision, denies diplopia, denies discharge, denies pain Ears: deny: decreased hearing Ears, nose, mouth and throat: Denies dental pain, Denies headache, Denies nasal discharge, Denies nose pain Cardiovascular: Denies chest pain, Denies decreased exercise tolerance, endorses edema, Denies high blood pressure, Denies irregular heart beat, Denies palpitations, endorses paroxysmal nocturnal dyspnea, Denies rapid heart beat, endorses shortness of breath endorses orthopnea Respiratory: Denies congestion, Denies cough, Denies cough with sputum, endorses dyspnea, uses 2-3 L home oxygen, endorses wheezing Gastrointestinal: Denies abdominal pain, Denies change in bowel habits, Denies coffee ground emesis, Denies early satiety, Denies excessive gas, Denies heartburn, Denies hematemesis, Denies hematochezia, Denies loss of appetite, Denies nausea, Denies vomiting Genitourinary: Denies dysuria, Denies flank pain, Denies kidney stones, Denies menorrhagia, Denies urgency, Denies urinary frequency Musculoskeletal: Denies gait dysfunction, Denies limitation of motion, Denies morning stiffness, Denies muscle cramps Integumentary: Denies rash, Denies wounds, Denies brittle nails, Denies change in hair/nails, Denies darkening of skin Neurological: Denies balance difficulties, Denies change in speech, Denies double vision, Denies gait dysfunction, Denies loss of vision, Denies motor disturbance, Denies numbness, Denies paralysis, Denies paresthesias, Denies seizures Psychiatric: Denies anxiety, Denies depression Endocrine: Denies excessive sweating, Denies excessive thirst, Denies high blood sugars, Denies palpitations Hematologic/Lymphatic: Denies easy bruising, Denies lymphadenopathy Past Medical History Past Medical History: Coronary Artery Disease (CAD), Heart Failure, CVA/TIA, Diabetes Mellitus, GI Bleed, Hyperlipidemia, Hypertension, Myocardial Infarction ([place]), Renal Disease Additional Past Medical History / Comment(s): Other hx: Dysphagia, NIDDM type II, neuropathy bilateral hands, home oxygen which she wears prn, chronic kidney disease stage II, UTIs, small hiatal hernia, vascular dementia, 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 Last Myocardial Infarction Date:: 11/18/17 History of Any Multi-Drug Resistant Organisms: None Reported Past Surgical History: Appendectomy, Back Surgery, Cholecystectomy, Heart Catheterization With Stent Additional Past Surgical History / Comment(s): Low back surgery, cervical surgery, R wrist carpal tunnel release, colonoscopy (not completed d/t poor prep) about 10 yrs ago, EGD 01/2018 d/t abdominal pain. Past Anesthesia/Blood Transfusion Reactions: No Reported Reaction Additional Past Anesthesia/Blood Transfusion Reaction / Comment(s): Pt has clausterphobia. Date of Last Stent Placement:: 11/18/17 Past Psychological History: Depression Smoking Status: Former smoker Past Alcohol Use History: None Reported Past Drug Use History: None Reported - Past Family History Father Additional Family Medical History / Comment(s): Father at age 91 from old age. Mother Additional Family Medical History / Comment(s): Mother at age 85 with history of lupus. Brother(s) Additional Family Medical History / Comment(s): Patient's siblings have history of coronary artery disease, diabetes, hypertension, macular degeneration. Daughter(s) Additional Family Medical History / Comment(s): Patient has 11 children; 6 da ughters and 5 sons. 3 have and 2 from kidney failure and one was murdered. Sister(s) Additional Family Medical History / Comment(s): Pt had a sister live to be 102 yrs old. Medications and Allergies Home Medications Medication Instructions Recorded Confirmed Type Aspirin [Adult Low Dose Aspirin EC] 81 mg PO DAILY 11/21/17 03/20/19 History Famotidine [Pepcid] 20 mg PO DAILY 11/21/17 03/20/19 History Ranolazine [Ranexa] 1,000 mg PO Q12HR #60 tab.er.12h 11/25/17 03/20/19 Rx Atorvastatin [Lipitor] 40 mg PO DAILY 01/02/18 03/20/19 History Galantamine [Razadyne] 4 mg PO AC-BID 01/02/18 03/20/19 History Escitalopram [Lexapro] 10 mg PO DAILY 12/20/18 03/20/19 History amLODIPine [Norvasc] 10 mg PO DAILY #30 tab 12/25/18 03/20/19 Rx Isosorbide Mononitrate ER [Imdur] 30 mg PO DAILY #30 tab.er.24h 01/05/19 03/20/19 Rx Metoprolol Tartrate [Lopressor] 50 mg PO TID 01/13/19 03/20/19 History Ondansetron [Zofran] 4 mg PO Q8HR PRN 01/13/19 03/20/19 History Linagliptin [Tradjenta] 5 mg PO DAILY 03/09/19 03/20/19 History Semaglutide [Ozempic] 2 mg SQ WE 03/09/19 03/20/19 History hydrALAZINE HCL [Apresoline] 25 mg PO TID 03/09/19 03/20/19 History Furosemide [Lasix] 40 mg PO BID@0900,1600 #60 tab 03/15/19 03/20/19 Rx Saline Nasal Gel [[place] Nasal Gel] 1 applic TOPICAL Q4HR PRN gm 03/15/19 03/20/19 Rx Allergies Allergy/AdvReac Type Severity Reaction Status Date / Time hydrocodone [From [place]] Allergy Rash/Hives Verified 03/20/19 13:05 naproxen sodium [From Aleve] Allergy Itching,bessie Verified 03/20/19 13:05 h glimepiride [From Amaryl] AdvReac Nausea & Verified 03/20/19 13:05 Vomiting Physical Exam Vitals: Vital Signs Temp Pulse Resp BP Pulse Ox 03/20/19 16:45 65 18 97/51 95 03/20/19 15:27 108/51 03/20/19 15:00 94/48 03/20/19 13:17 61 18 88/77 98 03/20/19 12:57 97.4 F L 61 18 81/42 96 Intake and Output 03/20/19 03/20/19 03/20/19 06:59 14:59 22:59 Other: Weight 77.111 kg - Constitutional General appearance: cooperative, no acute distress, obese - EENT Eyes: anicteric sclerae, PERRLA, normal appearance ENT: hearing grossly normal - Neck Neck: no lymphadenopathy, normal ROM, no other, no rigidity, no stridor, no thyromegaly - Respiratory Respiratory: bilateral: Significant wheezing and crackles noted bilaterally in the Upper and lower of both lungs - Cardiovascular Rhythm: regular Heart sounds: normal: S1, S2 Abnormal Heart Sounds: 3/6 systolic murmur left lateral sternal border, no diastolic murmur, no rub, no S3 Gallop, no S4 Gallop, no click, no other - Gastrointestinal General gastrointestinal: normal bowel sounds, soft - Integumentary Integumentary: no rash - Neurologic Neurologic: CNII-XII intact - Musculoskeletal Musculoskeletal: Gait not assessed strength equal bilaterally - Psychiatric Psychiatric: A&O x's 3, appropriate affect Results CBC & Chem 7: 03/20/19 13:10 03/20/19 13:10 Labs: Abnormal Lab Results - Last 24 Hours (Table) 03/20/19 03/20/19 03/20/19 Range/Units 13:10 13:10 13:10 RBC 3.22 L (3.80-5.40) m/uL Hgb 10.1 L (11.4-16.0) gm/dL Hct 32.0 L (34.0-46.0) % Neutrophils # 8.5 H (1.3-7.7) k/uL APTT 20.8 L (22.0-30.0) sec BUN 29 H (7-17) mg/dL Creatinine 1.11 H (0.52-1.04) mg/dL Glucose 203 H (74-99) mg/dL POC Glucose (mg/dL) (75-99) mg/dL Total Bilirubin 1.9 H (0.2-1.3) mg/dL Total Protein 5.7 L (6.3-8.2) g/dL Albumin 3.4 L (3.5-5.0) g/dL 03/20/19 Range/Units 13:12 RBC (3.80-5.40) m/uL Hgb (11.4-16.0) gm/dL Hct (34.0-46.0) % Neutrophils # (1.3-7.7) k/uL APTT (22.0-30.0) sec BUN (7-17) mg/dL Creatinine (0.52-1.04) mg/dL Glucose (74-99) mg/dL POC Glucose (mg/dL) 226 H (75-99) mg/dL Total Bilirubin (0.2-1.3) mg/dL Total Protein (6.3-8.2) g/dL Albumin (3.5-5.0) g/dL Thrombosis Risk Factor Assmnt - DVT/VTE Prophylaxis DVT/VTE Prophylaxis: Pharmacologic Prophylaxis ordered Assessment and Plan Plan: 1 acute shortness of breath secondary to acute on chronic systolic heart failure, moderate aortic stenosis, severe mitral regurgitation bilateral pleural effusions. Patient is currently on oral Lasix at home. We will give stat dose of 80 mg Lasix and start Lasix 60 IV twice a day. Cardiology consult and pulmonary consult on patient's daughter request renexa L 1000 mg twice daily, Imdur 30 mg daily. INR monitoring daily weights 2 acute on chronic hypoxic respiratory failure. Patient is currently nonrebreather. Stat ABG ordered Home oxygen is up to 4 L . 3 bilateral pleural effusion: No need for thoracentesis. 4 hypertension. Continue Norvasc 10 mg daily, Lasix 40 mg twice daily, hydralazine 25 mg 3 times daily, Imdur 30 mg daily, Lopressor 50 mg 3 times daily. 5 chronic kidney disease stage 3. 6 type 2 diabetes. Continue NovoLog scale before meals and at bedtime, hold Tradjenta. 7 non-ST segment elevation myocardial infarction resolved 8 memory loss: Most likely Alzheimer disease, patient remain on galantamine 4 mg twice a day. 9 history of coronary artery disease. 10 recurrent depression: Patient has been on Lexapro 10 mg a day. 11 hyperlipidemia: Remain on Lipitor 40 mg daily. DVT prophylaxis with heparin every 12
[2019-03-20] MEDS ORDERED: ONDANSETRON 4 MG/2 ML VIAL IVP PRN (17:53)
[2019-03-20 17:58] LABS: Amphetamine Screen,Urine Not Detected (NotDetected); Barbiturate Screen,Urine Not Detected (NotDetected); Benzodiazepines Screen,Urine Not Detected (NotDetected); Cocaine Screen,Urine Not Detected (NotDetected); Methadone Screen, Urine Not Detected (NotDetected); Opiate Screen,Urine Not Detected (NotDetected); Oxycodone Screen, Urine Not Detected (NotDetected); Phencyclidine Screen,Urine Not Detected (NotDetected); Tricyclic Antidepressant,Urine Not Detected (NotDetected); Urn Cannabinoid Scrn Not Detected (NotDetected)
[2019-03-20] MEDS: IPRATROPIUM-ALBUTEROL 3 ML NEB INHALATION PRN (19:09)
[2019-03-20 20:39] LABS: ABG Base Excess -0.2 mmol/L; ABG HCO3 25 mmol/L (21-25); ABG Oxygen Saturation 94.6 % (94-97); ABG PCO2 39 mmHg (35-45); ABG PH 7.41 (7.35-7.45); ABG PO2 73 mmHg (83-108); ABG TCO2 26 mmol/L (19-24); Allen Test Performed? Yes
[2019-03-20] MEDS: FUROSEMIDE 10 MG/ML 10 ML VIAL IV SCH (20:42)
[2019-03-20] MEDS: methylPREDNISolone SOD SUCCI 125 MG/2 ML VIAL IV SCH ×2 (20:42→23:07)
[2019-03-20] MEDS: HEPARIN SODIUM,PORCINE 5,000 UNIT/ML 1 ML VIAL SQ SCH (20:42)
[2019-03-20] MEDS: guaiFENesin 600 MG TABLET.ER PO SCH (20:42)
[2019-03-20 20:52] LABS: Glucose,Whole Blood 181 mg/dL (75-99)
[2019-03-20] MEDS ORDERED: FUROSEMIDE 10 MG/ML 4 ML VIAL IV SCH (21:00)
[2019-03-20] MEDS: INSULIN ASPART (NovoLOG) 100 UNIT/ML VIAL SQ SCH (22:20)
[2019-03-20] MEDS: hydrALAZINE HCL 25 MG TAB PO SCH (22:20)
[2019-03-21] MEDS: IPRATROPIUM-ALBUTEROL 3 ML NEB INHALATION PRN ×5 (00:52→21:00)
[2019-03-21] MEDS ORDERED: FUROSEMIDE 10 MG/ML 4 ML VIAL IV STA (01:04)
[2019-03-21] MEDS: ALPRAZolam 0.25 MG TAB PO PRN ×2 (01:09→17:32)
[2019-03-21 06:23] LABS: Glucose,Whole Blood 210 mg/dL (75-99)
[2019-03-21] MEDS: INSULIN ASPART (NovoLOG) 100 UNIT/ML VIAL SQ SCH ×4 (06:53→22:05)
[2019-03-21] MEDS: methylPREDNISolone SOD SUCCI 125 MG/2 ML VIAL IV SCH (06:54)
[2019-03-21 07:21] LABS: Basophils % (A) 0 %; Eosinophils # (A) 0.1 k/uL (0-0.7); Eosinophils % (A) 1 %; HCT 33.5 % (34.0-46.0); HGB 10.7 gm/dL (11.4-16.0); Lymphocytes # (A) 0.9 k/uL (1.0-4.8); Lymphocytes % (A) 11 %; MCH 32.6 pg (25.0-35.0); MCV 101.6 fL (80.0-100.0); Macrocytosis Slight; Mean Platelet Volume 6.6; Monocytes # (A) 0.1 k/uL (0-1.0); Monocytes % (A) 1 %; Neutrophils # (A) 7.3 k/uL (1.3-7.7); Neutrophils % (A) 87 %; Platelet Count 370 k/uL (150-450); RBC 3.29 m/uL (3.80-5.40); RDW 14.3 % (11.5-15.5); WBC 8.4 k/uL (3.8-10.6)
[2019-03-21 07:36] LABS: Albumin 3.8 g/dL (3.5-5.0); Calcium 9.6 mg/dL (8.4-10.2); Potassium 4.8 mmol/L (3.5-5.1); Total Bilirubin 1.7 mg/dL (0.2-1.3); Total Protein 6.2 g/dL (6.3-8.2)
[2019-03-21] MEDS: ASPIRIN 81 MG PO SCH (07:53)
[2019-03-21] MEDS: ATORVASTATIN 40 MG TAB PO SCH (07:53)
[2019-03-21] MEDS: guaiFENesin 600 MG TABLET.ER PO SCH ×2 (07:53→22:05)
[2019-03-21] MEDS: FAMOTIDINE 20 MG TAB PO SCH (07:54)
[2019-03-21] MEDS: hydrALAZINE HCL 25 MG TAB PO SCH ×3 (07:54→22:05)
[2019-03-21] MEDS: POTASSIUM CHLORIDE ER 20 MEQ TAB.ER PO SCH (07:54)
[2019-03-21] MEDS: ISOSORBIDE MONONITRATE ER 30 MG TAB.ER.24H PO SCH (07:54)
[2019-03-21] MEDS: DONEPEZIL 5 MG TAB PO SCH (07:54)
[2019-03-21] MEDS: FUROSEMIDE 10 MG/ML 10 ML VIAL IV SCH (07:55)
[2019-03-21] MEDS: HEPARIN SODIUM,PORCINE 5,000 UNIT/ML 1 ML VIAL SQ SCH ×2 (07:55→22:07)
[2019-03-21] MEDS: ESCITALOPRAM 10 MG TAB PO SCH (07:55)
--- NOTE | 2019-03-21 08:51 | P.CRDCN ---
History of Present Illness Consult date: 03/21/19 Requesting physician: Audra Gonzalez Consult reason: shortness of breath Chief complaint: Mental status changes History of present illness: This is a pleasant 89-year-old female with history of severe mitral regurgitation, moderate aortic stenosis, systolic congestive heart failure, hyp ertension, chronic kidney disease stage III, diabetes, hyperlipidemia, coronary artery disease, who has had several recent admissions to the hospital. On this occasion patient was brought to the hospital, because her family found her unresponsive. After arrival to the emergency room, patient did become alert and oriented 3. CT of the brain was performed which was negative for any new strokes. Venous blood gas was unremarkable. White blood cell count 10.4 on admission 8.4 this morning, hemoglobin 10.7, platelet count 370. Sodium 138, potassium 4.8, BUN on admission 29 and creatinine 1.1, this morning 42 and 1.6. Troponin 0.021. BNP level 12,400. Drug screen was negative. Urinalysis negative. Chest x-ray on admission showed findings consistent with CHF exacerbation. Bilateral pleural effusions. EKG shows normal sinus rhythm with first-degree AV block and nonspecific ST-T wave changes. Blood pressure on arrival here 80/40, heart rate in the 60s, 96% on 6 L of oxygen. Let pressure this morning 108/60 heart rate in the 70s, she's 93% on 70% BiPAP. At the time of my examination this morning, the patient is sitting up in her chair at bedside, she did put out good urine through the night last night, appears to be alert and oriented 2. States that she does feel that her breathing is improving however still complains of feeling somewhat short of breath. 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 Last Myocardial Infarction Date:: 11/18/17 History of Any Multi-Drug Resistant Organisms: None Reported Past Surgical History: Appendectomy, Back Surgery, Cholecystectomy, Heart Catheterization With Stent Additional Past Surgical History / Comment(s): Low back surgery, cervical surgery, R wrist carpal tunnel release, colonoscopy (not completed d/t poor prep) about 10 yrs ago, EGD 01/2018 d/t abdominal pain. Past Anesthesia/Blood Transfusion Reactions: No Reported Reaction Additional Past Anesthesia/Blood Transfusion Reaction / Comment(s): Pt has clausterphobia. Date of Last Stent Placement:: 11/18/17 Past Psychological History: Depression Additional Psychological History / Comment(s): Pt resides with her daughter, Julia, who is her legal gaurdian and caregiver. She uses a walker at times but is mostly in a wheelchair. She has had increased depression off and on the past few months over her son's on 04/17/18. She states she is not suicidal. She is currently receiving [facility]. She has a shower chair, walker oxygen and wheelchair. Smoking Status: Never smoker Past Alcohol Use History: None Reported Additional Past Alcohol Use History / Comment(s): Pt started smoking in 1961 and quit in 1982. No illicit drug use. No alcohol use. Past Drug Use History: None Reported - Past Family History Father Additional Family Medical History / Comment(s): Father at age 91 from old age. Mother Additional Family Medical History / Comment(s): Mother at age 85 with history of lupus. Brother(s) Additional Family Medical History / Comment(s): Patient's siblings have history of coronary artery disease, diabetes, hypertension, macular degeneration. Daughter(s) Additional Family Medical History / Comment(s): Patient has 11 children; 6 daughters and 5 sons. 3 have and 2 from kidney failure and one was murdered. Sister(s) Additional Family Medical History / Comment(s): Pt had a sister live to be 102 yrs old. Medications and Allergies Home Medications Medication Instructions Recorded Confirmed Type Aspirin [Adult Low Dose Aspirin EC] 81 mg PO DAILY 11/21/17 03/20/19 History Famotidine [Pepcid] 20 mg PO DAILY 11/21/17 03/20/19 History Ranolazine [Ranexa] 1,000 mg PO Q12HR #60 tab.er.12h 11/25/17 03/20/19 Rx Atorvastatin [Lipitor] 40 mg PO DAILY 01/02/18 03/20/19 History Galantamine [Razadyne] 4 mg PO AC-BID 01/02/18 03/20/19 History Escitalopram [Lexapro] 10 mg PO DAILY 12/20/18 03/20/19 History amLODIPine [Norvasc] 10 mg PO DAILY #30 tab 12/25/18 03/20/19 Rx Isosorbide Mononitrate ER [Imdur] 30 mg PO DAILY #30 tab.er.24h 01/05/19 03/20/19 Rx Metoprolol Tartrate [Lopressor] 50 mg PO TID 01/13/19 03/20/19 History Ondansetron [Zofran] 4 mg PO Q8HR PRN 01/13/19 03/20/19 History Linagliptin [Tradjenta] 5 mg PO DAILY 03/09/19 03/20/19 History Semaglutide [Ozempic] 2 mg SQ WE 03/09/19 03/20/19 History hydrALAZINE HCL [Apresoline] 25 mg PO TID 03/09/19 03/20/19 History Furosemide [Lasix] 40 mg PO BID@0900,1600 #60 tab 03/15/19 03/20/19 Rx Saline Nasal Gel [[place] Nasal Gel] 1 applic TOPICAL Q4HR PRN gm 03/15/19 03/20/19 Rx Allergies Allergy/AdvReac Type Severity Reaction Status Date / Time hydrocodone [From [place]] Allergy Rash/Hives Verified 03/20/19 13:05 naproxen sodium [From Aleve] Allergy Itching,bessie Verified 03/20/19 13:05 h glimepiride [From Amaryl] AdvReac Nausea & Verified 03/20/19 13:05 Vomiting Physical Exam Vitals: Vital Signs Temp Pulse Pulse Resp BP BP Pulse Ox 03/21/19 07:14 80 03/21/19 07:03 78 03/21/19 04:00 98.4 F 79 24 107/63 93 L 03/21/19 01:02 73 03/21/19 00:54 73 03/21/19 00:00 98.9 F 72 28 H 96/35 90 L 03/20/19 21:21 95 03/20/19 20:00 98.1 F 69 24 104/48 95 03/20/19 19:19 67 18 03/20/19 19:12 97 03/20/19 19:09 64 20 03/20/19 19:00 97.4 F L 64 24 115/46 94 L 03/20/19 17:40 64 24 115/46 94 L 03/20/19 17:38 20 112/47 93 L 03/20/19 16:45 65 18 97/51 95 03/20/19 15:27 108/51 03/20/19 15:00 94/48 03/20/19 13:17 61 18 88/77 98 03/20/19 12:57 97.4 F L 61 18 81/42 96 Intake and Output 03/20/19 03/21/19 03/21/19 22:59 06:59 14:59 Intake Total 1000 118 Output Total 400 200 Balance 600 -200 118 Intake: Amount of Fluid Infused ( 1000 ml) Oral 118 Output: Urine 400 200 Uretheral (Sunshine) 400 Other: Voiding Method Indwelling Catheter Indwelling Catheter Weight 74.3 kg PHYSICAL EXAMINATION: GENERAL: 89-year-old female in no acute distress at the time of my examination HEENT: Head is atraumatic, normocephalic. Pupils equal, round. Sclera anicteric. Conjunctiva are clear. Mucous membranes of the mouth are moist. Neck is supple. There is no elevated jugular venous pressure. No carotid bruit is heard. HEART EXAMINATION: R S1 and S2 systolic ejection murmur is heard CHEST EXAMINATION: Lungs reveal crackles bilaterally with some diminished air entry to the bases. ABDOMEN: Soft, nontender. Bowel sounds are heard. No organomegaly noted. EXTREMITIES: 2+ peripheral pulses with no evidence of peripheral edema and no calf tenderness noted. NEUROLOGIC patient is awake, alert and oriented 2 . . Results 03/21/19 06:56 03/21/19 06:56 Cardiac Enzymes 03/20/19 03/20/19 03/21/19 Range/Units 13:10 13:10 06:56 AST 26 27 (14-36) U/L Troponin I 0.021 (0.000-0.034) ng/mL Coagulation 05/06/19 Range/Units 13:10 PT 11.8 (9.0-12.0) sec APTT 20.8 L (22.0-30.0) sec CBC 03/20/19 03/21/19 Range/Units 13:10 06:56 WBC 10.4 8.4 (3.8-10.6) k/uL RBC 3.22 L 3.29 L (3.80-5.40) m/uL Hgb 10.1 L 10.7 L (11.4-16.0) gm/dL Hct 32.0 L 33.5 L (34.0-46.0) % Plt Count 347 370 (150-450) k/uL Comprehensive Metabolic Panel 03/20/19 03/21/19 Range/Units 13:10 06:56 Sodium 137 138 (137-145) mmol/L Potassium 4.8 4.8 (3.5-5.1) mmol/L Chloride 102 103 (98-107) mmol/L Carbon Dioxide 24 22 (22-30) mmol/L BUN 29 H 42 H (7-17) mg/dL Creatinine 1.11 H 1.68 H (0.52-1.04) mg/dL Glucose 203 H 181 H (74-99) mg/dL Calcium 9.2 9.6 (8.4-10.2) mg/dL AST 26 27 (14-36) U/L ALT 32 38 (9-52) U/L Alkaline Phosphatase 125 112 (38-126) U/L Total Protein 5.7 L 6.2 L (6.3-8.2) g/dL Albumin 3.4 L 3.8 (3.5-5.0) g/dL Current Medications Generic Name Dose Route Start Last Admin Trade Name Freq PRN Reason Stop Dose Admin Acetaminophen 650 mg 03/20/19 17:53 Tylenol Tab PO Q6HR PRN Fever and/ or Mild Pain Albuterol/Ipratropium 3 ml 03/20/19 17:53 03/21/19 07:03 Duoneb 0.5 Mg-3 Mg/3 Ml Soln INHALATION 3 ml RT-QID PRN Administration Shortness Of Breath Alprazolam 0.25 mg 03/21/19 01:03 03/21/19 01:09 Xanax PO 0.25 mg BID PRN Administration Anxiety Amlodipine Besylate 10 mg 03/21/19 09:00 03/21/19 07:55 Norvasc PO 10 mg DAILY MYCHAL Administration Aspirin 81 mg 03/21/19 09:00 03/21/19 07:53 Aspirin PO 81 mg DAILY MYCHAL Administration Atorvastatin Calcium 40 mg 03/21/19 09:00 03/21/19 07:53 Lipitor PO 40 mg DAILY MYCHAL Administration Donepezil HCl 5 mg 03/21/19 09:00 03/21/19 07:54 Aricept PO 5 mg DAILY MYCHAL Administration Escitalopram Oxalate 10 mg 03/21/19 09:00 03/21/19 07:55 Lexapro PO 10 mg DAILY MYCHAL Administration Famotidine 20 mg 03/21/19 09:00 03/21/19 07:54 Pepcid PO 20 mg DAILY MYCHAL Administration Furosemide 60 mg 03/20/19 21:00 03/21/19 07:55 Lasix IV 60 mg Q12HR MYCHAL Administration Guaifenesin 600 mg 03/20/19 21:00 03/21/19 07:53 Mucinex PO 600 mg Q12HR MYCHAL Administration Heparin Sodium (Porcine) 5,000 unit 03/20/19 21:00 03/21/19 07:55 Heparin SQ 5,000 unit Q12HR MYCHAL Administration Hydralazine HCl 25 mg 03/20/19 22:00 03/21/19 07:54 Apresoline PO 25 mg TID MYCHAL Administration Insulin Aspart 0 unit 03/20/19 21:00 03/21/19 06:53 Novolog SQ 6 unit ACHS MYCHAL Administration Protocol Isosorbide Mononitrate 30 mg 03/21/19 09:00 03/21/19 07:54 Imdur PO 30 mg DAILY MYCHAL Administration Methylprednisolone Sodium Succinate 60 mg 03/20/19 18:00 03/21/19 06:54 Solu-Medrol IV 60 mg Q6HR MYCHAL Administration Ondansetron HCl 4 mg 03/20/19 17:53 Zofran IVP Q6HR PRN Nausea And Vomiting Potassium Chloride 20 meq 03/21/19 09:00 03/21/19 07:54 K-Dur 20 PO 20 meq DAILY MYCHAL Administration Intake and Output 03/20/19 03/21/19 03/21/19 22:59 06:59 14:59 Intake Total 1000 118 Output Total 400 200 Balance 600 -200 118 Intake: Amount of Fluid Infused ( 1000 ml) Oral 118 Output: Urine 400 200 Uretheral (Sunshine) 400 Other: Voiding Method Indwelling Catheter Indwelling Catheter Weight 74.3 kg 03/21/19 06:56 03/21/19 06:56 EKG Interpretations (text) EKG shows a normal sinus rhythm with first-degree AV block and nonspecific ST-T wave changes Assessment and Plan Plan: Assessment and plan #1 episode of unresponsiveness, CT of the brain did not reveal any evidence of acute stroke, could be secondary to hypotension, blood pressure on arrival 80/60 #2 systolic congestive heart failure acute on chronic #3 hypertension #4 chronic kidney disease stage III #5 diabetes #6 Alzheimer's disease #7 hyperlipidemia #8 severe mitral regurgitation with moderate aortic stenosis Plan The patient had been sheeted on IV Lasix on arrival here, creatinine went from 1.1-1.6. Would recommend to discontinue the IV Lasix, put the patient back on her oral diuretics. Patient is not currently on an CRISTIANO inhibitor, but is on hydralazine and nitrates, as blood pressure tolerates we will gradually resume the patient's beta giselle . Consider the addition of Aldactone, monitoring potassium and creatinine levels closely.. We will discontinue the Norvasc. Check lytes BUN and creatinine in the morning. Patient did have an echocardiogram with Doppler study performed on March 10 revealed an ejection fraction of 35-40%, moderate aortic stenosis, severe mitral regurgitation. Further recommendations to follow. DNP note has been reviewed, I agree with a documented findings and plan of care. Patient was seen and examined.
[2019-03-21] MEDS ORDERED: FAMOTIDINE 20 MG TAB PO SCH (09:00)
[2019-03-21] MEDS ORDERED: FUROSEMIDE 20 MG TAB PO SCH (09:00)
[2019-03-21] MEDS ORDERED: amLODIPine 10 MG TAB PO SCH (09:00)
[2019-03-21 11:48] LABS: Glucose,Whole Blood 196 mg/dL (75-99)
--- NOTE | 2019-03-21 12:09 | CONS ---
CONSULTATION REASON FOR CONSULT: Renal failure. HISTORY OF PRESENT ILLNESS: This is an 89-year-old female who was admitted to the hospital on 03/20/2019 with complaints of shortness of breath. She was actually unresponsive and nonverbal according to the daughter. When patient came into the ER she was noted to be in volume overload and was placed on BiPAP and oxygen. Blood pressure was low with systolic 81 to 88 mmHg when patient initially came in. At home, she was maintained on Lasix 40 mg b.i.d. along with amlodipine and hydralazine. According to the daughter, this is her 4th or 5th admission in the last 4 months. The patient's serum creatinine has been mostly around 1.1 to 0.8 mg/dL this year. She was not on any nonsteroidal anti-inflammatory agents prior to admission. Echocardiogram shows ejection fraction 35% to 40%. The patient was evaluated by Nephrology during her admission in January of 2019. She had hypovolemic hyponatremia and intravascular volume depletion from nausea, vomiting and diarrhea at that time. The patient was also seen by Urology for mild hydronephrosis. There was no plan on any urological intervention at that time because renal function had improved with IV hydration. On this admission, patient denied any chest pain. She denied intake of high salt containing foods. She has been on the same dose of diuretics. According to the daughter, her weight actually went down by about 2 pounds prior to admission. Patient had not been eating or drinking much for a week or so prior to this admission. PAST MEDICAL HISTORY: Coronary artery disease, diabetes, hypertension, history of CVA, history of UTI, peripheral neuropathy. PAST SURGICAL HISTORY: Appendectomy, back surgery, cholecystectomy, cardiac catheterization, coronary stent placement, colonoscopy, carpal tunnel release, low back surgery, cervical surgery, EGD. SOCIAL HISTORY: Negative for smoking, drug abuse or alcohol abuse. MEDICATIONS: Medications prior to admission included aspirin, Pepcid, Ranexa, Lipitor, Lexapro, Norvasc, Lopressor, Imdur, Zofran, Tradjenta, hydralazine, Lasix. ALLERGIES: Allergies include NORCO, ALEVE, AMARYL. REVIEW OF SYSTEMS: As per HPI. Other systems negative. PHYSICAL EXAMINATION: On examination, patient is comfortable, awake, alert, oriented x3. She is not in any acute distress. She is hard of hearing. On examination, blood pressure 130/64, heart rate 81 per minute. She is afebrile. EXAMINATION OF THE HEART: S1, S2. EXAMINATION OF THE LUNGS: Bilateral breath sounds are heard. Abdomen is soft, nontender. Examination of lower extremities shows edema bilaterally. MEASUREMENT ADVISOR exam is grossly intact. The chest x-ray from yesterday shows CHF exacerbation. ASSESSMENT: 1. Acute kidney injury associated with hypotension hypoperfusion. Currently patient is volume overloaded and I will change the Lasix to IV. Her blood pressure is better. Therefore, she will tolerate diuresis better. We will repeat labs in a.m. and avoid any other nephrotoxic medications. 2. Congestive heart failure exacerbation, acute on top of chronic, mainly systolic. 3. Cardiomyopathy ejection fraction 35% to 40%. 4. Hypertension, currently blood pressure is low. We will hold off on further antihypertensive medications. 5. Multiple admissions in the past 4 months, some of them for intravascular volume depletion and some for congestive heart failure exacerbation. PLAN: Increase Lasix. Repeat labs in a.m. Check a chest x-ray and check iron studies for workup for anemia. Thank you for this consultation. We will continue to follow the patient with you during her hospitalization. MMODL / IJN: [id number] /
--- NOTE | 2019-03-21 14:07 | P.PN ---
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 According to the daughter bedside patient became nonverbal and unresponsive and was brought to the ER. On evaluation in the ER patient was only responsive to painful stimulus. Within few minutes patient recovered and was oriented 3. Brain CT was negative for any new strokes. Venous blood gas was unremarkable. Labs ordered suggestive of hemoglobin of 10.1 stable as compared to the previous labs, BUN/creatinine 29 and creatinine 1.1, glucose 220 6B UN 29, BNP 12,400, troponin 0.021. Echo obtained during last admission suggest EF of 35-40% with apical inferior lateral hypokinesia. Cardiology and and pulmonary was consulted. Chest x-ray suggestive of pulmonary venous congestion and cardiomegaly. The daughter bedside and was not relating to give Lasix to the patient. On evaluation in the ER patient was currently on 6 L of oxygen saturating well but very short of breath trying to catch her breath on 6 L with symptoms positive for paroxysmal nocturnal dyspnea, orthopnea with bilateral lower extremity edema, no fever no chills no cough production. White is obtained suggest night temp of 98.6, pulse 82 respiratory rate 20 blood pressure 146/72 saturating at 91% On 6 L spelled since patient was short of breath on 6 L patient was switched to a nonrebreather and will be monitored overnight in the ICU 03/21: Patient is seen on the cardiac stepdown unit. She has been seen by cardiology with recommendations to resume her home diuretics and stop the IV Lasix, gradually resume beta giselle and consider adding Aldactone. Norvasc was discontinued. Patient has been afebrile, heart rate in the 70s, blood pressure 107/63, patient was on BiPAP and currently on nasal cannula high flow at 9 L. Repeat lab work reveals white count is 8.4, hemoglobin 10.7. Renal function has increased with a BUN of 42 and creatinine 1.68. Blood sugars are running between 181 and 210. The patient continues to have wheezing we will decrease her Solu-Medrol to 40 mg every 8 hours. Breathing is improved from yesterday. She denies having any abdominal pain. She is complaining of some left-sided chest pain that is tender to palpation. She denies any palpitations. She has a Sunshine catheter in place and diuresing well. Weight is down 3 kg. Review of Systems Constitutional: Denies chills, Denies fever, Denies lethargy, Denies malaise, Denies poor appetite, Denies weakness, Denies weight loss Eyes: denies decreased vision, denies diplopia, denies discharge, denies pain Ears: deny: decreased hearing Ears, nose, mouth and throat: Denies dental pain, Denies headache, Denies nasal discharge, Denies nose pain Cardiovascular: Reports chest pain, Denies decreased exercise tolerance, endorses edema, Denies high blood pressure, Denies irregular heart beat, Denies palpitations, endorses paroxysmal nocturnal dyspnea, Denies rapid heart beat, endorses shortness of breath endorses orthopnea Respiratory: Denies congestion, Denies cough, Denies cough with sputum, endorses dyspnea, uses 2-3 L home oxygen, endorses wheezing Gastrointestinal: Denies abdominal pain, Denies change in bowel habits, Denies coffee ground emesis, Denies early satiety, Denies excessive gas, Denies heartburn, Denies hematemesis, Denies hematochezia, Denies loss of appetite, Denies nausea, Denies vomiting Genitourinary: Denies dysuria, Denies flank pain, Denies kidney stones, Denies menorrhagia, Denies urgency, Denies urinary frequency Musculoskeletal: Denies gait dysfunction, Denies limitation of motion, Denies morning stiffness, Denies muscle cramps Integumentary: Denies rash, Denies wounds, Denies brittle nails, Denies change in hair/nails, Denies darkening of skin Neurological: Denies balance difficulties, Denies change in speech, Denies double vision, Denies gait dysfunction, Denies loss of vision, Denies motor disturbance, Denies numbness, Denies paralysis, Denies paresthesias, Denies seizures Psychiatric: Denies anxiety, Denies depression Endocrine: Denies excessive sweating, Denies excessive thirst, Denies high blood sugars, Denies palpitations Hematologic/Lymphatic: Denies easy bruising, Denies lymphadenopathy Objective - Vital Signs Vital signs: Vital Signs Temp 98.4 F 03/21/19 04:00 Pulse 80 03/21/19 07:14 Resp 24 03/21/19 04:00 BP 107/63 03/21/19 04:00 Pulse Ox 93 L 03/21/19 04:00 Intake & Output 03/20/19 03/21/19 03/21/19 18:59 06:59 18:59 Intake Total 1000 118 Output Total 600 Balance 400 118 Weight 77.111 kg 74.3 kg Intake: Amount of Fluid Infused ( 1000 ml) Oral 118 Output: Urine 600 Uretheral (Sunshine) 400 Other: Voiding Method Indwelling Catheter - Exam General appearance: cooperative, no acute distress but is on 9 L oxygen, obese - EENT Eyes: anicteric sclerae, PERRLA, normal appearance ENT: hearing grossly normal - Neck Neck: no lymphadenopathy, normal ROM, no other, no rigidity, no stridor, no t hyromegaly - Respiratory Respiratory: bilateral: Significant wheezing and crackles noted bilaterally in the Upper and lower of both lungs - Cardiovascular Rhythm: regular Heart sounds: normal: S1, S2 Abnormal Heart Sounds: 3/6 systolic murmur left lateral sternal border, no diastolic murmur, no rub, no S3 Gallop, no S4 Gallop, no click, no other - Gastrointestinal General gastrointestinal: normal bowel sounds, soft - Integumentary Integumentary: no rash - Neurologic Neurologic: CNII-XII intact - Musculoskeletal Musculoskeletal: Gait not assessed strength equal bilaterally - Psychiatric Psychiatric: A&O x's 3, appropriate affect - Labs CBC & Chem 7: 03/21/19 06:56 03/21/19 06:56 Labs: Abnormal Lab Results - Last 24 Hours (Table) 03/20/19 03/20/19 03/20/19 Range/Units 13:10 13:10 13:10 RBC 3.22 L (3.80-5.40) m/uL Hgb 10.1 L (11.4-16.0) gm/dL Hct 32.0 L (34.0-46.0) % MCV (80.0-100.0) fL Neutrophils # 8.5 H (1.3-7.7) k/uL Lymphocytes # (1.0-4.8) k/uL APTT 20.8 L (22.0-30.0) sec ABG pO2 (83-108) mmHg ABG Total CO2 (19-24) mmol/L BUN 29 H (7-17) mg/dL Creatinine 1.11 H (0.52-1.04) mg/dL Glucose 203 H (74-99) mg/dL POC Glucose (mg/dL) (75-99) mg/dL Total Bilirubin 1.9 H (0.2-1.3) mg/dL Total Protein 5.7 L (6.3-8.2) g/dL Albumin 3.4 L (3.5-5.0) g/dL 03/20/19 03/20/19 03/20/19 Range/Units 13:12 20:36 20:40 RBC (3.80-5.40) m/uL Hgb (11.4-16.0) gm/dL Hct (34.0-46.0) % MCV (80.0-100.0) fL Neutrophils # (1.3-7.7) k/uL Lymphocytes # (1.0-4.8) k/uL APTT (22.0-30.0) sec ABG pO2 73 L (83-108) mmHg ABG Total CO2 26 H (19-24) mmol/L BUN (7-17) mg/dL Creatinine (0.52-1.04) mg/dL Glucose (74-99) mg/dL POC Glucose (mg/dL) 226 H 181 H (75-99) mg/dL Total Bilirubin (0.2-1.3) mg/dL Total Protein (6.3-8.2) g/dL Albumin (3.5-5.0) g/dL 03/21/19 03/21/19 03/21/19 Range/Units 06:22 06:56 06:56 RBC 3.29 L (3.80-5.40) m/uL Hgb 10.7 L (11.4-16.0) gm/dL Hct 33.5 L (34.0-46.0) % MCV 101.6 H (80.0-100.0) fL Neutrophils # (1.3-7.7) k/uL Lymphocytes # 0.9 L (1.0-4.8) k/uL APTT (22.0-30.0) sec ABG pO2 (83-108) mmHg ABG Total CO2 (19-24) mmol/L BUN 42 H (7-17) mg/dL Creatinine 1.68 H (0.52-1.04) mg/dL Glucose 181 H (74-99) mg/dL POC Glucose (mg/dL) 210 H (75-99) mg/dL Total Bilirubin 1.7 H (0.2-1.3) mg/dL Total Protein 6.2 L (6.3-8.2) g/dL Albumin (3.5-5.0) g/dL Assessment and Plan Plan: 1 acute on chronic hypoxic respiratory failure secondary to acute on chronic systolic heart failure, moderate aortic stenosis, severe mitral regurgitation, bilateral pleural effusions. Cardiology consult appreciated. IV Lasix changed to Lasix 60 mg oral twice daily. Continue Ranexa 1000 mg twice daily, Imdur 30 mg daily. I&O and daily weights. Monitor renal function and electrolytes. 2 acute on chronic hypoxic respiratory failure. Patient is currently nonrebreather/Bipap. Home oxygen is up to 4 L . 3 bilateral pleural effusion: No need for thoracentesis. 4 hypertension. Norvasc discontinued. Continue hydralazine 25 mg 3 times daily, Imdur 30 mg daily, Lopressor is currently on hold. 5 chronic kidney disease stage 3. Nephrology consult. 6 type 2 diabetes. Continue NovoLog scale before meals and at bedtime, hold Tradjenta. 7 non-ST segment elevation myocardial infarction on previous admission. Continue aspirin 81 mg daily, Lipitor, beta giselle to be resumed slowly per cardiology. 8 memory loss: Most likely Alzheimer disease, patient remain on galantamine 4 mg twice a day, Aricept 5 mg daily. 9 history of coronary artery disease. 10 recurrent depression: Patient has been on Lexapro 10 mg a day. 11 hyperlipidemia: Remain on Lipitor 40 mg daily. DVT prophylaxis with heparin every 12. GI prophylaxis. Pepcid 20 mg daily. Discharge plan: Most likely home [facility] Impression and plan of care have been directed as dictated by the signing physician. Donita Padron nurse practitioner acting as scribe for signing physician.
--- NOTE | 2019-03-21 15:22 | P.CNPUL ---
History of Present Illness Consult date: 03/21/19 Requesting physician: Audra Gonzalez Reason for consult: dyspnea, hypoxemia, abnormal CXR/CT Chief complaint: Acute exacerbation of chronic congestive heart failure History of present illness: This is a 89-year-old female patient of Dr. Sales, with known history of valvular heart disease, severe mitral regurgitation, and moderate aortic stenosis, hypertension, hyperlipidemia, chronic congestive heart failure, previous myocardial infarction with stenting of the LAD in November 2017, type 2 diabetes mellitus, who was recently hospitalized for acute exacerbation of congestive heart failure with systolic dysfunction, and non-ST segment elevated myocardial infarction. Echocardiogram was completed during that admission and showed ejection fraction of 35-40%. Patient was discharged home on 03/15/2019, on oral Lasix of 40 mg twice daily. Patient was brought to the hospital on 03/20/2019 for complaints of worsening shortness of breath, patient woke up out of her sleep and couldn't breathe, was having some chest pain that responded to sublingual nitro, vision also had episode of unresponsiveness at home. Patient had some episodes of emesis at home, did have some chills, but was afebrile. Chest x-ray was completed showing persistent central vascular congestion and bibasilar opacities/bilateral pleural effusions. Patient did have some hypotension, apparently she was a bit dehydrated from vomiting. Did have some abdominal discomfort across the upper abdomen, but abdomen is soft, no diarrhea. She was given the a liter bolus in the emergency department, she was in significant respiratory distress, and blood gas was obtained showing pO2 of 73, pCO2 of 39, pH of 7.41 this was done on FiO2 100%, patient was placed on BiPAP support. She was started on IV diuretics, antibiotics, breathing treatments. Labs did not show any evidence of leukocytosis, admission labs showed a white blood cell count of 10.4, hemoglobin of 10.1, electrolytes are within normal limits, BUN is 29 creatinine was 1.1 and renal profile has increased on today's labs, with B1 up to 42 and creatinine of 1.6. Her BNP was 12,400, troponin was negative at 0.021. Urinalysis was negative, and urine drug screen was negative. During my exam patient is seen still on BiPAP, but she has been able to tolera te periods on the high flow nasal cannula, she has 1+ pitting edema in lower extremities, lung sounds reveal diminished breath sounds bilaterally with fine rales at the bases. No further episodes of nausea and vomiting. No complaints of chest pain, cardiology is following, EKG showed a sinus rhythm with left bundle branch block and nonspecific STT wave changes Review of Systems All systems: negative Constitutional: Denies chills, Denies fever Eyes: denies blurred vision, denies pain Ears, nose, mouth and throat: Denies headache, Denies sore throat Cardiovascular: Reports chest pain, Reports leg edema, Reports orthopnea, Reports paroxysmal nocturnal dyspnea, Reports syncope, Denies shortness of breath Respiratory: Reports dyspnea, Denies cough Gastrointestinal: Denies abdominal pain, Denies diarrhea, Denies nausea, Denies vomiting Genitourinary: Denies dysuria, Denies hematuria Musculoskeletal: Denies myalgias Integumentary: Denies pruritus, Denies rash Neurological: Denies numbness, Denies weakness Psychiatric: Denies anxiety, Denies depression Endocrine: Denies fatigue, Denies weight change Past Medical History Past Medical History: Coronary Artery Disease (CAD), Heart Failure, CVA/TIA, Diabetes Mellitus, GI Bleed, Hyperlipidemia, Hypertension, Myocardial Infarction (CT), Renal Disease Additional Past Medical History / Comment(s): Other hx: Dysphagia, NIDDM type II, neuropathy bilateral hands, home oxygen which she wears prn, chronic kidney disease stage II, UTIs, small hiatal hernia, vascular dementia, 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 Last Myocardial Infarction Date:: 11/18/17 History of Any Multi-Drug Resistant Organisms: None Reported Past Surgical History: Appendectomy, Back Surgery, Cholecystectomy, Heart Catheterization With Stent Additional Past Surgical History / Comment(s): Low back surgery, cervical surgery, R wrist carpal tunnel release, colonoscopy (not completed d/t poor prep) about 10 yrs ago, EGD 01/2018 d/t abdominal pain. Past Anesthesia/Blood Transfusion Reactions: No Reported Reaction Additional Past Anesthesia/Blood Transfusion Reaction / Comment(s): Pt has clausterphobia. Date of Last Stent Placement:: 11/18/17 Past Psychological History: Depression Additional Psychological History / Comment(s): Pt resides with her daughter, Julia, who is her legal gaurdian and caregiver. She uses a walker at times but is mostly in a wheelchair. She has had increased depression off and on the past few months over her son's on 04/17/18. She states she is not suicidal. She is currently receiving [facility]. She has a shower chair, walker oxygen and wheelchair. Smoking Status: Never smoker Past Alcohol Use History: None Reported Additional Past Alcohol Use History / Comment(s): Pt started smoking in 1961 and quit in 1982. No illicit drug use. No alcohol use. Past Drug Use History: None Reported - Past Family History Father Additional Family Medical History / Comment(s): Father at age 91 from old age. Mother Additional Family Medical History / Comment(s): Mother at age 85 with history of lupus. Brother(s) Additional Family Medical History / Comment(s): Patient's siblings have history of coronary artery disease, diabetes, hypertension, macular degeneration. Daughter(s) Additional Family Medical History / Comment(s): Patient has 11 children; 6 daughters and 5 sons. 3 have and 2 from kidney failure and one was murdered. Sister(s) Additional Family Medical History / Comment(s): Pt had a sister live to be 102 yrs old. Medications and Allergies Home Medications Medication Instructions Recorded Confirmed Type Aspirin [Adult Low Dose Aspirin EC] 81 mg PO DAILY 11/21/17 03/20/19 History Famotidine [Pepcid] 20 mg PO DAILY 11/21/17 03/20/19 History Ranolazine [Ranexa] 1,000 mg PO Q12HR #60 tab.er.12h 11/25/17 03/20/19 Rx Atorvastatin [Lipitor] 40 mg PO DAILY 01/02/18 03/20/19 History Galantamine [Razadyne] 4 mg PO AC-BID 01/02/18 03/20/19 History Escitalopram [Lexapro] 10 mg PO DAILY 12/20/18 03/20/19 History amLODIPine [Norvasc] 10 mg PO DAILY #30 tab 12/25/18 03/20/19 Rx Isosorbide Mononitrate ER [Imdur] 30 mg PO DAILY #30 tab.er.24h 01/05/19 03/20/19 Rx Metoprolol Tartrate [Lopressor] 50 mg PO TID 01/13/19 03/20/19 History Ondansetron [Zofran] 4 mg PO Q8HR PRN 01/13/19 03/20/19 History Linagliptin [Tradjenta] 5 mg PO DAILY 03/09/19 03/20/19 History Semaglutide [Ozempic] 2 mg SQ WE 03/09/19 03/20/19 History hydrALAZINE HCL [Apresoline] 25 mg PO TID 03/09/19 03/20/19 History Furosemide [Lasix] 40 mg PO BID@0900,1600 #60 tab 03/15/19 03/20/19 Rx Saline Nasal Gel [[place] Nasal Gel] 1 applic TOPICAL Q4HR PRN gm 03/15/19 03/20/19 Rx Allergies Allergy/AdvReac Type Severity Reaction Status Date / Time hydrocodone [From [place]] Allergy Rash/Hives Verified 03/20/19 13:05 naproxen sodium [From Aleve] Allergy Itching,bessie Verified 03/20/19 13:05 h glimepiride [From Amaryl] AdvReac Nausea & Verified 03/20/19 13:05 Vomiting Physical Exam Vitals: Vital Signs Temp Pulse Pulse Resp BP BP Pulse Ox 03/21/19 12:34 80 03/21/19 12:26 76 03/21/19 08:00 97.3 F L 81 20 130/64 93 L 03/21/19 07:14 80 03/21/19 07:03 78 03/21/19 04:00 98.4 F 79 24 107/63 93 L 03/21/19 01:02 73 03/21/19 00:54 73 03/21/19 00:00 98.9 F 72 28 H 96/35 90 L 03/20/19 21:21 95 03/20/19 20:00 98.1 F 69 24 104/48 95 03/20/19 19:19 67 18 03/20/19 19:12 97 03/20/19 19:09 64 20 03/20/19 19:00 97.4 F L 64 24 115/46 94 L 03/20/19 17:40 64 24 115/46 94 L 03/20/19 17:38 20 112/47 93 L 03/20/19 16:45 65 18 97/51 95 03/20/19 15:27 108/51 03/20/19 15:00 94/48 03/20/19 13:17 61 18 88/77 98 Intake and Output 03/20/19 03/21/19 03/21/19 22:59 06:59 14:59 Intake Total 1000 118 Output Total 400 200 Balance 600 -200 118 Intake: Amount of Fluid Infused ( 1000 ml) Oral 118 Output: Urine 400 200 Uretheral (Sunshine) 400 Other: Voiding Method Indwelling Catheter Indwelling Catheter Indwelling Catheter # Voids 1 Weight 74.3 kg 74.3 kg GENERAL EXAM: Alert, wasn't, 89-year-old white female, on BiPAP support with p ressures of 12/6, ON the FiO2 of 60%, comfortable in no apparent distress. HEAD: Normocephalic/atraumatic. EYES: Normal reaction of pupils, equal size. Conjunctiva pink, sclera white. NOSE: Clear with pink turbinates. THROAT: No erythema or exudates. NECK: No masses, no JVD, no thyroid enlargement, no adenopathy. CHEST: No chest wall deformity. Symmetrical expansion. LUNGS: Equal air entry with diminished breath sounds with bibasilar crackles CVS: Regular rate and rhythm, normal S1 and S2, no gallops, no murmurs, no rubs ABDOMEN: Soft, nontender. No hepatosplenomegaly, normal bowel sounds, no guarding or rigidity. EXTREMITIES: No clubbing, 1+ edema bilateral lower extremities, no cyanosis, 2+ pulses and upper and lower extremities. MUSCULOSKELETAL: Muscle strength and tone normal. SPINE: No scoliosis or deformity SKIN: No rashes CENTRAL NERVOUS SYSTEM: Alert and oriented -3. No focal deficits, tone is normal in all 4 extremities. PSYCHIATRIC: Alert and oriented -3. Appropriate affect. Intact judgment and insight. Results - Laboratory Findings CBC and BMP: 03/21/19 06:56 03/21/19 06:56 ABG ABG pH 7.41 (7.35-7.45) 03/20/19 20:36 ABG pCO2 39 mmHg (35-45) 03/20/19 20:36 ABG pO2 73 mmHg (83-108) L 03/20/19 20:36 ABG O2 Saturation 94.6 % (94-97) 03/20/19 20:36 PT/INR, D-dimer PT 11.8 sec (9.0-12.0) 03/20/19 13:10 INR 1.1 (<1.2) 03/20/19 13:10 Abnormal lab findings: Abnormal Labs 03/20/19 03/20/19 03/20/19 13:10 13:10 13:10 RBC 3.22 L Hgb 10.1 L Hct 32.0 L MCV Neutrophils # 8.5 H Lymphocytes # APTT 20.8 L ABG pO2 ABG Total CO2 BUN 29 H Creatinine 1.11 H Glucose 203 H POC Glucose (mg/dL) Total Bilirubin 1.9 H Total Protein 5.7 L Albumin 3.4 L 03/20/19 03/20/19 03/20/19 13:12 20:36 20:40 RBC Hgb Hct MCV Neutrophils # Lymphocytes # APTT ABG pO2 73 L ABG Total CO2 26 H BUN Creatinine Glucose POC Glucose (mg/dL) 226 H 181 H Total Bilirubin Total Protein Albumin 03/21/19 03/21/19 03/21/19 06:22 06:56 06:56 RBC 3.29 L Hgb 10.7 L Hct 33.5 L MCV 101.6 H Neutrophils # Lymphocytes # 0.9 L APTT ABG pO2 ABG Total CO2 BUN 42 H Creatinine 1.68 H Glucose 181 H POC Glucose (mg/dL) 210 H Total Bilirubin 1.7 H Total Protein 6.2 L Albumin 03/21/19 11:46 RBC Hgb Hct MCV Neutrophils # Lymphocytes # APTT ABG pO2 ABG Total CO2 BUN Creatinine Glucose POC Glucose (mg/dL) 196 H Total Bilirubin Total Protein Albumin - Diagnostic Findings Chest x-ray: report reviewed, image reviewed Additional studies: EKG reviewed Assessment and Plan Plan: Assessment: #1. Acute hypoxemic respiratory failure related to acute exacerbation of conge stive heart failure with systolic dysfunction. Chest x-ray showed pulmonary edema, small bilateral pleural effusions #2. Nausea and vomiting at home, dehydration #3. Hypotension related to poor oral intake, nausea and vomiting, fluid resuscitated, with improvement in the blood pressure #4. Episode of unresponsiveness at home, brain CT showed no acute intracranial findings, showed moderate diffuse age-related cerebral atrophy and chronic small vessel ischemic changes #5. Acute kidney injury, likely related to ATN, diuretics, nausea and vomiting #6. Valvular heart disease, severe mitral regurgitation, and moderate aortic stenosis #7. Recent hospitalization for acute exacerbation of CHF and a urinary tract infection #8. Previous episode of GI bleeding #9. History of coronary artery disease with the stenting in November 2017 #10. Diabetes mellitus type 2 #11. Hypertention, hyperlipidemia #12. Previous history of bilateral thoracentesis, in December 2018, with removal of 800 mL from the left and 1300 mL from the right pleural effusion cytology was negative, pleural fluid cultures were negative, and analysis showed transudative fluid consistent with history of congestive heart failure Plan: Agree with the IV diuretics, continue with BiPAP support on as needed basis, patient is still quite dyspneic, she easily desaturates, and she still requires high amounts of oxygen, no complaints of chest pain, will continue with the low- dose steroids at 40 mg every 12 hours, continue breathing treatments. A urinary tract infection has been treated, and urinalysis is negative this admission. No fever or chills. Hemodynamically more stable, no hypotension, no episodes of syncope while inpatient, and CT brain was negative for any acute intracranial findings. We'll continue to follow and make further recommendations I performed a history & physical examination of the patient and discussed their management with my nurse practitioner, Earline Dumas. I reviewed the nurse practitioner's note and agree with the documented findings and plan of care. Lung sounds are positive for diminished breath sounds with bibasilar crackles. The findings and the impression was discussed with the patient. I attest to the documentation by the nurse practitioner. Time with Patient: Greater than 30
[2019-03-21 15:27] LABS: Hemoglobin A1C 5.6 % (4.0-6.0)
[2019-03-21] MEDS ORDERED: methylPREDNISolone SOD SUCCI 40 MG/ML 1 ML VIAL IV SCH (16:00)
[2019-03-21 16:48] LABS: Glucose,Whole Blood 168 mg/dL (75-99)
[2019-03-21 18:25] LABS: Iron Saturation 8.03 (12.00-45.00)
[2019-03-21 21:13] LABS: Glucose,Whole Blood 167 mg/dL (75-99)
[2019-03-21] MEDS: methylPREDNISolone SOD SUCCI 40 MG/ML 1 ML VIAL IV SCH (22:06)
[2019-03-21] MEDS: FUROSEMIDE 10 MG/ML 4 ML VIAL IV SCH (22:07)
[2019-03-22] MEDS: ALPRAZolam 0.25 MG TAB PO PRN (03:57)
[2019-03-22 06:54] LABS: Glucose,Whole Blood 216 mg/dL (75-99)
[2019-03-22] MEDS: INSULIN ASPART (NovoLOG) 100 UNIT/ML VIAL SQ SCH ×4 (07:01→23:24)
[2019-03-22 07:24] LABS: Albumin 3.3 g/dL (3.5-5.0); Calcium 9.2 mg/dL (8.4-10.2); Potassium 4.4 mmol/L (3.5-5.1); Total Bilirubin 1.1 mg/dL (0.2-1.3); Total Protein 5.7 g/dL (6.3-8.2)
[2019-03-22] MEDS: HEPARIN SODIUM,PORCINE 5,000 UNIT/ML 1 ML VIAL SQ SCH ×2 (08:24→23:23)
[2019-03-22] MEDS: ESCITALOPRAM 10 MG TAB PO SCH (08:24)
[2019-03-22] MEDS: methylPREDNISolone SOD SUCCI 40 MG/ML 1 ML VIAL IV SCH ×2 (08:24→23:21)
[2019-03-22] MEDS: ASPIRIN 81 MG PO SCH (08:24)
[2019-03-22] MEDS: DONEPEZIL 5 MG TAB PO SCH (08:24)
[2019-03-22] MEDS: ISOSORBIDE MONONITRATE ER 30 MG TAB.ER.24H PO SCH (08:24)
[2019-03-22] MEDS: FUROSEMIDE 10 MG/ML 4 ML VIAL IV SCH ×2 (08:24→23:22)
[2019-03-22] MEDS: hydrALAZINE HCL 25 MG TAB PO SCH ×3 (08:24→23:23)
[2019-03-22] MEDS: guaiFENesin 600 MG TABLET.ER PO SCH ×2 (08:25→23:24)
[2019-03-22] MEDS: FAMOTIDINE 20 MG TAB PO SCH (08:25)
[2019-03-22] MEDS: POTASSIUM CHLORIDE ER 20 MEQ TAB.ER PO SCH (08:25)
[2019-03-22] MEDS: ATORVASTATIN 40 MG TAB PO SCH (08:25)
[2019-03-22 08:54] LABS: Basophils % (A) 0 %; Eosinophils # (A) 0.1 k/uL (0-0.7); Eosinophils % (A) 1 %; HCT 29.6 % (34.0-46.0); HGB 9.7 gm/dL (11.4-16.0); Lymphocytes # (A) 0.8 k/uL (1.0-4.8); Lymphocytes % (A) 9 %; MCHC 32.7 g/dL (31.0-37.0); MCV 97.7 fL (80.0-100.0); Mean Platelet Volume 7.3; Monocytes # (A) 0.4 k/uL (0-1.0); Monocytes % (A) 4 %; Neutrophils # (A) 7.4 k/uL (1.3-7.7); Neutrophils % (A) 85 %; Platelet Count 338 k/uL (150-450); RBC 3.03 m/uL (3.80-5.40); RDW 14.4 % (11.5-15.5); WBC 8.7 k/uL (3.8-10.6)
[2019-03-22] MEDS: methylPREDNISolone SOD SUCCI 125 MG/2 ML VIAL IV SCH (09:27)
[2019-03-22 11:28] LABS: Glucose,Whole Blood 207 mg/dL (75-99)
--- NOTE | 2019-03-22 12:16 | XR ---
EXAMINATION TYPE: XR chest 1V portable DATE OF EXAM: 03/22/2019 COMPARISON: 03/20/2019 HISTORY: Shortness of breath TECHNIQUE: Single frontal view of the chest is obtained. FINDINGS: Heart is enlarged and is bilateral infiltrate and pleural effusion with diffuse interstiti al pattern. Diffuse osteopenia with arthropathy of the shoulders. Atherosclerotic change aorta. Posts urgical change overlying cervical spine. IMPRESSION: 1. Bilateral infiltrate and pleural effusion correlate for CHF.
--- NOTE | 2019-03-22 13:34 | P.PN ---
Subjective Progress Note Date: 03/22/19 Principal diagnosis: Acute exacerbation of chronic congestive heart failure This is a 89-year-old female patient of Dr. Sales, with known history of valvular heart disease, severe mitral regurgitation, and moderate aortic stenosis, hypertension, hyperlipidemia, chronic congestive heart failure, previous myocardial infarction with stenting of the LAD in November 2017, type 2 diabetes mellitus, who was recently hospitalized for acute exacerbation of congestive heart failure with systolic dysfunction, and non-ST segment elevated myocardial infarction. Echocardiogram was completed during that admission and showed ejection fraction of 35-40%. Patient was discharged home on 03/15/2019, on oral Lasix of 40 mg twice daily. Patient was brought to the hospital on 03/20/2019 for complaints of worsening shortness of breath, patient woke up out of her sleep and couldn't breathe, was having some chest pain that responded to sublingual nitro, vision also had episode of unresponsiveness at home. Patient had some episodes of emesis at home, did have some chills, but was afebrile. Chest x-ray was completed showing persistent central vascular congestion and bibasilar opacities/bilateral pleural effusions. Patient did have some hypotension, apparently she was a bit dehydrated from vomiting. Did have some abdominal discomfort across the upper abdomen, but abdomen is soft, no diarrhea. She was given the a liter bolus in the emergency department, she was in significant respiratory distress, and blood gas was obtained showing pO2 of 73, pCO2 of 39, pH of 7.41 this was done on FiO2 100%, patient was placed on BiPAP support. She was started on IV diuretics, antibiotics, breathing treatments. Labs did not show any evidence of leukocytosis, admission labs showed a white blood cell count of 10.4, hemoglobin of 10.1, electrolytes are within normal limits, BUN is 29 creatinine was 1.1 and renal profile has increased on today's labs, with B1 up to 42 and creatinine of 1.6. Her BNP was 12,400, troponin was negative at 0.021. Urinalysis was negative, and urine drug screen was negative. During my exam patient is seen still on BiPAP, but she has been able to tolera te periods on the high flow nasal cannula, she has 1+ pitting edema in lower extremities, lung sounds reveal diminished breath sounds bilaterally with fine rales at the bases. No further episodes of nausea and vomiting. No complaints of chest pain, cardiology is following, EKG showed a sinus rhythm with left bundle branch block and nonspecific STT wave changes On 03/22/2019 patient seen in follow-up on selective care unit, she is currently off BiPAP, she did wear it through the night, he is currently on 15 L of oxygen per high flow nasal cannula and her pulse ox is 88-89%, she is afebrile, she denies any chest pain, she is diuresing, her lower extremity edema is improving, lung sounds are positive for MRSA breath sounds with rales at the bases, she states she is dyspneic on today's exam, follow-up chest x-ray was obtained today shows bilateral infiltrates and pleural effusions, relatively stable, maybe slightly progressed. In negative fluid balance. Today's labs have been reviewe d, and showed no leukocytosis, with blood cell count is 8.7, hemoglobin is 9.7, sodium is 136, potassium is 4.4, chloride is 105, CO2 is 20, B1 is 55 and creatinine is 1.72, and renal profile is slightly worse on on today's labs. She remains on IV Lasix at 40 mg every 12 hours, she is on breathing treatments and IV steroids. Objective - Vital Signs Vital signs: Vital Signs Temp 98.2 F 03/22/19 10:47 Pulse 88 03/22/19 10:47 Resp 18 03/22/19 12:00 BP 125/68 03/22/19 10:47 Pulse Ox 89 L 03/22/19 11:55 Intake & Output 03/21/19 03/22/19 03/22/19 18:59 06:59 18:59 Intake Total 218 Output Total 500 Balance 218 -500 Weight 74.3 kg 74 kg Intake: Oral 218 Output: Urine 500 Other: Voiding Method Indwelling Catheter Indwelling Catheter Indwelling Catheter # Voids 1 - Exam GENERAL EXAM: Alert, wasn't, 89-year-old white female, on 15 L per high flow nasal cannula pulse ox of 88-89% HEAD: Normocephalic/atraumatic. EYES: Normal reaction of pupils, equal size. Conjunctiva pink, sclera white. NOSE: Clear with pink turbinates. THROAT: No erythema or exudates. NECK: No masses, no JVD, no thyroid enlargement, no adenopathy. CHEST: No chest wall deformity. Symmetrical expansion. LUNGS: Equal air entry with diminished breath sounds with bibasilar crackles CVS: Regular rate and rhythm, normal S1 and S2, no gallops, no murmurs, no rubs ABDOMEN: Soft, nontender. No hepatosplenomegaly, normal bowel sounds, no guar ding or rigidity. EXTREMITIES: No clubbing, 1+ edema bilateral lower extremities, no cyanosis, 2+ pulses and upper and lower extremities. MUSCULOSKELETAL: Muscle strength and tone normal. SPINE: No scoliosis or deformity SKIN: No rashes CENTRAL NERVOUS SYSTEM: Alert and oriented -3. No focal deficits, tone is normal in all 4 extremities. PSYCHIATRIC: Alert and oriented -3. Appropriate affect. Intact judgment and insight. - Labs CBC & Chem 7: 03/22/19 08:32 03/22/19 06:48 Labs: Abnormal Lab Results - Last 24 Hours (Table) 03/21/19 03/21/19 03/21/19 Range/Units 06:56 16:45 21:12 RBC (3.80-5.40) m/uL Hgb (11.4-16.0) gm/dL Hct (34.0-46.0) % Lymphocytes # (1.0-4.8) k/uL Sodium (137-145) mmol/L Carbon Dioxide (22-30) mmol/L BUN (7-17) mg/dL Creatinine (0.52-1.04) mg/dL Glucose (74-99) mg/dL POC Glucose (mg/dL) 168 H 167 H (75-99) mg/dL Iron 24 L (50-170) ug/dL Iron Saturation 8.03 L (12.00-45.00) Total Protein (6.3-8.2) g/dL Albumin (3.5-5.0) g/dL 03/22/19 03/22/19 03/22/19 Range/Units 06:48 06:52 08:32 RBC 3.03 L (3.80-5.40) m/uL Hgb 9.7 L (11.4-16.0) gm/dL Hct 29.6 L (34.0-46.0) % Lymphocytes # 0.8 L (1.0-4.8) k/uL Sodium 136 L (137-145) mmol/L Carbon Dioxide 20 L (22-30) mmol/L BUN 55 H (7-17) mg/dL Creatinine 1.72 H (0.52-1.04) mg/dL Glucose 204 H (74-99) mg/dL POC Glucose (mg/dL) 216 H (75-99) mg/dL Iron (50-170) ug/dL Iron Saturation (12.00-45.00) Total Protein 5.7 L (6.3-8.2) g/dL Albumin 3.3 L (3.5-5.0) g/dL 03/22/19 Range/Units 11:26 RBC (3.80-5.40) m/uL Hgb (11.4-16.0) gm/dL Hct (34.0-46.0) % Lymphocytes # (1.0-4.8) k/uL Sodium (137-145) mmol/L Carbon Dioxide (22-30) mmol/L BUN (7-17) mg/dL Creatinine (0.52-1.04) mg/dL Glucose (74-99) mg/dL POC Glucose (mg/dL) 207 H (75-99) mg/dL Iron (50-170) ug/dL Iron Saturation (12.00-45.00) Total Protein (6.3-8.2) g/dL Albumin (3.5-5.0) g/dL Assessment and Plan Plan: Assessment: #1. Acute hypoxemic respiratory failure related to acute exacerbation of congestive heart failure with systolic dysfunction. Chest x-ray showed pulmonary edema, small bilateral pleural effusions #2. Nausea and vomiting at home, dehydration #3. Hypotension related to poor oral intake, nausea and vomiting, fluid resu scitated, with improvement in the blood pressure #4. Episode of unresponsiveness at home, brain CT showed no acute intracranial findings, showed moderate diffuse age-related cerebral atrophy and chronic small vessel ischemic changes #5. Acute kidney injury, likely related to ATN, diuretics, nausea and vomiting #6. Valvular heart disease, severe mitral regurgitation, and moderate aortic stenosis #7. Recent hospitalization for acute exacerbation of CHF and a urinary tract infection #8. Previous episode of GI bleeding #9. History of coronary artery disease with the stenting in November 2017 #10. Diabetes mellitus type 2 #11. Hypertention, hyperlipidemia #12. Previous history of bilateral thoracentesis, in December 2018, with removal of 800 mL from the left and 1300 mL from the right pleural effusion cytology was negative, pleural fluid cultures were negative, and analysis showed transudative fluid consistent with history of congestive heart failure Plan: Continue the IV diuretics, patient states she is feeling less short of breath, lower extremity edema is improving, no component of chest pain, continue breathing treatments and IV steroids, no significant wheezing rhonchi or chest congestion. D breathing treatments, today's chest x-ray has been reviewed, and shows stable findings of pulmonary edema and pleural effusions. I performed a history & physical examination of the patient and discussed their management with my nurse practitioner, Earline Dumas. I reviewed the nurse practitioner's note and agree with the documented findings and plan of care. Reina ng sounds are positive for diminished breath sounds with bibasilar crackles. The findings and the impression was discussed with the patient. I attest to the documentation by the nurse practitioner. Time with Patient: Less than 30
--- NOTE | 2019-03-22 14:35 | P.PN ---
Subjective Progress Note Date: 03/22/19 89-year-old female one of Dr. Sales discharge on 03/15 with past medical history of systolic congestive heart failure, severe mitral regurgitation, moderate aortic stenosis, hypertension, chronic kidney disease stage III, type 2 diabetes, memory loss mostly is examined disease, known coronary artery disease, recurrent depression, hyperlipidemia who was just discharged a week ago after being treated for CHF exacerbation and NSTEMI. According to the daughter bedside patient became nonverbal and unresponsive and was brought to the ER. On evaluation in the ER patient was only responsive to painful stimulus. Within few minutes patient recovered and was oriented 3. Brain CT was negative for any new strokes. Venous blood gas was unremarkable. Labs ordered suggestive of hemoglobin of 10.1 stable as compared to the previous labs, BUN/creatinine 29 and creatinine 1.1, glucose 220 6B UN 29, BNP 12,400, troponin 0.021. Echo obtained during last admission suggest EF of 35-40% with apical inferior lateral hypokinesia. Cardiology and and pulmonary was consulted. Chest x-ray suggestive of pulmonary venous congestion and cardiomegaly. The daughter bedside and was not relating to give Lasix to the patient. On evaluation in the ER patient was currently on 6 L of oxygen saturating well but very short of breath trying to catch her breath on 6 L with symptoms positive for paroxysmal nocturnal dyspnea, orthopnea with bilateral lower extremity edema, no fever no chills no cough production. White is obtained suggest night temp of 98.6, pulse 82 respiratory rate 20 blood pressure 146/72 saturating at 91% On 6 L spelled since patient was short of breath on 6 L patient was switched to a nonrebreather and will be monitored overnight in the ICU 03/21: Patient is seen on the cardiac stepdown unit. She has been seen by cardiology with recommendations to resume her home diuretics and stop the IV Lasix, gradually resume beta giselle and consider adding Aldactone. Norvasc was discontinued. Patient has been afebrile, heart rate in the 70s, blood pressure 107/63, patient was on BiPAP and currently on nasal cannula high flow at 9 L. Repeat lab work reveals white count is 8.4, hemoglobin 10.7. Renal function has increased with a BUN of 42 and creatinine 1.68. Blood sugars are running between 181 and 210. The patient continues to have wheezing we will decrease her Solu-Medrol to 40 mg every 8 hours. Breathing is improved from yesterday. She denies having any abdominal pain. She is complaining of some left-sided chest pain that is tender to palpation. She denies any palpitations. She has a Sunshine catheter in place and diuresing well. Weight is down 3 kg. 03/22: The patient has been afebrile, heart rate in the 80s and 90s, blood pressure 120/48, patient is currently on high flow nasal cannula at 15 L pulse oxing 88-90%. WBC 8.7, hemoglobin 9.7. Sodium 136, potassium 4.4, chloride 105, CO2 20, BUN 55 and creatinine 1.7 to. Blood sugar this morning was 216. Solu-Medrol has been decreased to 40 every 12 hours by pulmonary medicine. Patient to use BiPAP as needed. Patient is also seen and followed by Dr. Farmer and Lasix was changed to IV. She is currently on IV Lasix 40 mg every 12 hours. Discussed CODE STATUS with the patient in depth and she wishes to be a full code and intubated if necessary. Patient's prognosis is poor. Patient and daughter to talk with cardiology regarding options regarding surgery and heart catheterization. Patient does not appear to be a surgical candidate and prognosis is poor. Review of Systems Constitutional: Denies chills, Denies fever, reports lethargy, reports malaise, Denies poor appetite, reports weakness, Denies weight loss Eyes: denies decreased vision, denies diplopia, denies discharge, denies pain Ears: deny: decreased hearing Ears, nose, mouth and throat: Denies dental pain, Denies headache, Denies nasal discharge, Denies nose pain Cardiovascular: Reports chest pain, reports decreased exercise tolerance, endorses edema, Denies high blood pressure, Denies irregular heart beat, Denies palpitations, endorses paroxysmal nocturnal dyspnea, Denies rapid heart beat, endorses shortness of breath endorses orthopnea Respiratory: Denies congestion, Denies cough, Denies cough with sputum, endorses dyspnea, uses 2-3 L home oxygen, endorses wheezing Gastrointestinal: Denies abdominal pain, Denies change in bowel habits, Denies coffee ground emesis, Denies early satiety, Denies excessive gas, Denies heartburn, Denies hematemesis, Denies hematochezia, Denies loss of appetite, Denies nausea, Denies vomiting Genitourinary: Denies dysuria, Denies flank pain, Denies kidney stones, Denies menorrhagia, Denies urgency, Denies urinary frequency Musculoskeletal: Denies gait dysfunction, Denies limitation of motion, Denies morning stiffness, Denies muscle cramps Integumentary: Denies rash, Denies wounds, Denies brittle nails, Denies change in hair/nails, Denies darkening of skin Neurological: Denies balance difficulties, Denies change in speech, Denies double vision, Denies gait dysfunction, Denies loss of vision, Denies motor disturbance, Denies numbness, Denies paralysis, Denies paresthesias, Denies seizures Endocrine: Denies excessive sweating, Denies excessive thirst, reports high blood sugars, Denies palpitations Hematologic/Lymphatic: Denies easy bruising, Denies lymphadenopathy Objective - Vital Signs Vital signs: Vital Signs Temp 98 F 03/22/19 08:00 Pulse 83 03/22/19 08:00 Resp 18 03/22/19 08:00 BP 120/48 03/22/19 08:00 Pulse Ox 95 03/22/19 08:00 Intake & Output 03/21/19 03/22/19 03/22/19 18:59 06:59 18:59 Intake Total 218 Output Total 500 Balance 218 -500 Weight 74.3 kg 74 kg Intake: Oral 218 Output: Urine 500 Other: Voiding Method Indwelling Catheter Indwelling Catheter Indwelling Catheter # Voids 1 - Exam General appearance: cooperative, acute distress but is on 15 L oxygen, obese - EENT Eyes: anicteric sclerae, PERRLA, normal appearance ENT: hearing grossly normal - Neck Neck: no lymphadenopathy, normal ROM, no other, no rigidity, no stridor, no thyromegaly - Respiratory Respiratory: bilateral: Significant wheezing and crackles noted bilaterally in t he Upper and lower of both lungs - Cardiovascular Rhythm: regular Heart sounds: normal: S1, S2 Abnormal Heart Sounds: 3/6 systolic murmur left lateral sternal border, no diastolic murmur, no rub, no S3 Gallop, no S4 Gallop, no click, no other - Gastrointestinal General gastrointestinal: normal bowel sounds, soft - Integumentary Integumentary: no rash - Neurologic Neurologic: CNII-XII intact - Musculoskeletal Musculoskeletal: Gait not assessed strength equal bilaterally - Psychiatric Psychiatric: A&O x's 3, appropriate affect - Labs CBC & Chem 7: 03/22/19 08:32 03/22/19 06:48 Labs: Abnormal Lab Results - Last 24 Hours (Table) 03/21/19 03/21/19 03/21/19 Range/Units 06:56 11:46 16:45 RBC (3.80-5.40) m/uL Hgb (11.4-16.0) gm/dL Hct (34.0-46.0) % Lymphocytes # (1.0-4.8) k/uL Sodium (137-145) mmol/L Carbon Dioxide (22-30) mmol/L BUN (7-17) mg/dL Creatinine (0.52-1.04) mg/dL Glucose (74-99) mg/dL POC Glucose (mg/dL) 196 H 168 H (75-99) mg/dL Iron 24 L (50-170) ug/dL Iron Saturation 8.03 L (12.00-45.00) Total Protein (6.3-8.2) g/dL Albumin (3.5-5.0) g/dL 03/21/19 03/22/19 03/22/19 Range/Units 21:12 06:48 06:52 RBC (3.80-5.40) m/uL Hgb (11.4-16.0) gm/dL Hct (34.0-46.0) % Lymphocytes # (1.0-4.8) k/uL Sodium 136 L (137-145) mmol/L Carbon Dioxide 20 L (22-30) mmol/L BUN 55 H (7-17) mg/dL Creatinine 1.72 H (0.52-1.04) mg/dL Glucose 204 H (74-99) mg/dL POC Glucose (mg/dL) 167 H 216 H (75-99) mg/dL Iron (50-170) ug/dL Iron Saturation (12.00-45.00) Total Protein 5.7 L (6.3-8.2) g/dL Albumin 3.3 L (3.5-5.0) g/dL 03/22/19 Range/Units 08:32 RBC 3.03 L (3.80-5.40) m/uL Hgb 9.7 L (11.4-16.0) gm/dL Hct 29.6 L (34.0-46.0) % Lymphocytes # 0.8 L (1.0-4.8) k/uL Sodium (137-145) mmol/L Carbon Dioxide (22-30) mmol/L BUN (7-17) mg/dL Creatinine (0.52-1.04) mg/dL Glucose (74-99) mg/dL POC Glucose (mg/dL) (75-99) mg/dL Iron (50-170) ug/dL Iron Saturation (12.00-45.00) Total Protein (6.3-8.2) g/dL Albumin (3.5-5.0) g/dL Assessment and Plan Plan: 1 acute on chronic hypoxic respiratory failure secondary to acute on chronic systolic heart failure, moderate aortic stenosis, severe mitral regurgitation, bilateral pleural effusions. Cardiology consult appreciated. Currently on IV Lasix 40 mg twice daily. Continue Ranexa 1000 mg twice daily, Imdur 30 mg daily. I&O and daily weights. Monitor renal function and electrolytes. 2 acute on chronic hypoxic respiratory failure. Patient is currently nonrebreather/Bipap. Home oxygen is up to 4 L. Patient is currently on nasal cannula at 15 L. 3 bilateral pleural effusion: No need for thoracentesis. 4 hypertension. Norvasc discontinued. Continue hydralazine 25 mg 3 times daily, Imdur 30 mg daily, Lopressor is currently on hold. 5 chronic kidney disease stage 3. Nephrology consult. 6 type 2 diabetes. Continue NovoLog scale before meals and at bedtime, hold Tradjenta. 7 non-ST segment elevation myocardial infarction on previous admission. Continue aspirin 81 mg daily, Lipitor, beta giselle to be resumed slowly per cardiology. 8 memory loss: Most likely Alzheimer disease, patient remain on galantamine 4 mg twice a day, Aricept 5 mg daily. 9 history of coronary artery disease. 10 recurrent depression: Patient has been on Lexapro 10 mg a day. 11 hyperlipidemia: Remain on Lipitor 40 mg daily. DVT prophylaxis with heparin every 12. GI prophylaxis. Pepcid 20 mg daily. Discharge plan: Most likely home with [facility] Impression and plan of care have been directed as dictated by the signing physician. Donita Padron nurse practitioner acting as scribe for signing physician.
[2019-03-22 16:57] LABS: Glucose,Whole Blood 221 mg/dL (75-99)
--- NOTE | 2019-03-22 18:31 | PN ---
PROGRESS NOTE Patient is seen for followup for acute kidney injury, which appears to be mainly cardiorenal and secondary to hypotension. Systolic blood pressure was low as 81-88 mmHg on 03/20/2019. Serum creatinine increased from about 1.1-1.6 mg/dL. Currently, patient is being diuresed for volume overload. She also has significant mitral valve regurgitation and there is concern for need for possible intervention on the valve as patient has had multiple admissions recently. I discussed with Cardiology and at this time the plan is to stabilize the patient and improve her volume status and then proceed with SALO and/or cardiac catheterization to assess the severity of regurgitation on the mitral valve. The patient also has cardiomyopathy with ejection fraction about 35%. On examination this morning, patient remains short of breath. She states she is slightly better, but she is still requiring 15 L of oxygen through high-flow nasal cannula. PHYSICAL EXAMINATION: This morning blood pressure was 120/48, heart rate 85 per minute. She is afebrile. Examination of the heart S1, S2. Examination of the lungs bilateral breath sounds are heard. ABDOMEN: Soft. Exam of lower extremities shows edema 2+ bilaterally. REHAB SPEC exam is grossly intact. LAB: Show sodium 136, potassium 4.4, serum creatinine 1.7, hemoglobin 9.7 g/dL. ASSESSMENT: 1. Acute kidney injury secondary to hypotension, hypoperfusion currently nonoliguric, maintained on IV push Lasix which I will continue. Blood pressure is not low and renal function should improve over the next few days. Continue to avoid hypotension. 2. Valvular heart disease with mitral regurgitation, which will need further workup including SALO and cardiac catheterization once she is more stable. 3. Congestive heart failure, acute on top of chronic systolic and also exacerbated by significant mitral valve disease. 4. Cardiomyopathy, EF 35%. 5. Hypertension currently controlled. PLAN: Continue with IV Lasix for now. SALO once volume status has improved. Avoid hypotension and nephrotoxic medications. MMODL / IJN: [id number] /
[2019-03-22 21:40] LABS: Glucose,Whole Blood 128 mg/dL (75-99)
[2019-03-23 06:17] LABS: Glucose,Whole Blood 163 mg/dL (75-99)
[2019-03-23 06:23] LABS: Basophils % (A) 0 %; Eosinophils # (A) 0.1 k/uL (0-0.7); Eosinophils % (A) 1 %; HCT 33.8 % (34.0-46.0); HGB 10.6 gm/dL (11.4-16.0); Lymphocytes # (A) 1.3 k/uL (1.0-4.8); Lymphocytes % (A) 18 %; MCH 31.7 pg (25.0-35.0); MCHC 31.3 g/dL (31.0-37.0); Macrocytosis Slight; Mean Platelet Volume 7.3; Monocytes # (A) 0.6 k/uL (0-1.0); Monocytes % (A) 8 %; Neutrophils # (A) 5.2 k/uL (1.3-7.7); Neutrophils % (A) 71 %; Platelet Count 276 k/uL (150-450); RBC 3.35 m/uL (3.80-5.40); RDW 15.2 % (11.5-15.5); WBC 7.3 k/uL (3.8-10.6)
[2019-03-23 06:40] LABS: Albumin 3.2 g/dL (3.5-5.0); Calcium 9.6 mg/dL (8.4-10.2); Potassium 4.1 mmol/L (3.5-5.1); Total Bilirubin 1.2 mg/dL (0.2-1.3); Total Protein 5.5 g/dL (6.3-8.2)
[2019-03-23] MEDS: INSULIN ASPART (NovoLOG) 100 UNIT/ML VIAL SQ SCH ×5 (07:01→21:55)
[2019-03-23] MEDS: FAMOTIDINE 20 MG TAB PO SCH (08:35)
[2019-03-23] MEDS: POTASSIUM CHLORIDE ER 20 MEQ TAB.ER PO SCH (08:35)
[2019-03-23] MEDS: hydrALAZINE HCL 25 MG TAB PO SCH ×3 (08:35→21:54)
[2019-03-23] MEDS: ATORVASTATIN 40 MG TAB PO SCH (08:35)
[2019-03-23] MEDS: ASPIRIN 81 MG PO SCH (08:35)
[2019-03-23] MEDS: DONEPEZIL 5 MG TAB PO SCH (08:35)
[2019-03-23] MEDS: ISOSORBIDE MONONITRATE ER 30 MG TAB.ER.24H PO SCH (08:35)
[2019-03-23] MEDS: guaiFENesin 600 MG TABLET.ER PO SCH ×2 (08:35→21:54)
[2019-03-23] MEDS: ESCITALOPRAM 10 MG TAB PO SCH (08:35)
[2019-03-23] MEDS: HEPARIN SODIUM,PORCINE 5,000 UNIT/ML 1 ML VIAL SQ SCH ×2 (08:38→21:54)
[2019-03-23] MEDS: methylPREDNISolone SOD SUCCI 40 MG/ML 1 ML VIAL IV SCH ×2 (08:38→21:54)
[2019-03-23] MEDS: FUROSEMIDE 10 MG/ML 4 ML VIAL IV SCH ×4 (08:38→21:54)
[2019-03-23 11:39] LABS: Glucose,Whole Blood 258 mg/dL (75-99)
[2019-03-23] MEDS ORDERED: INSULIN ASPART (NovoLOG) 100 UNIT/ML VIAL SQ ONE (12:15)
--- NOTE | 2019-03-23 13:25 | P.PN ---
Subjective Progress Note Date: 03/23/19 Principal diagnosis: Acute exacerbation of chronic congestive heart failure This is a 89-year-old female patient of Dr. Sales, with known history of valvular heart disease, severe mitral regurgitation, and moderate aortic stenosis, hypertension, hyperlipidemia, chronic congestive heart failure, previous myocardial infarction with stenting of the LAD in November 2017, type 2 diabetes mellitus, who was recently hospitalized for acute exacerbation of congestive heart failure with systolic dysfunction, and non-ST segment elevated myocardial infarction. Echocardiogram was completed during that admission and showed ejection fraction of 35-40%. Patient was discharged home on 03/15/2019, on oral Lasix of 40 mg twice daily. Patient was brought to the hospital on 03/20/2019 for complaints of worsening shortness of breath, patient woke up out of her sleep and couldn't breathe, was having some chest pain that responded to sublingual nitro, vision also had episode of unresponsiveness at home. Patient had some episodes of emesis at home, did have some chills, but was afebrile. Chest x-ray was completed showing persistent central vascular congestion and bibasilar opacities/bilateral pleural effusions. Patient did have some hypotension, apparently she was a bit dehydrated from vomiting. Did have some abdominal discomfort across the upper abdomen, but abdomen is soft, no diarrhea. She was given the a liter bolus in the emergency department, she was in significant respiratory distress, and blood gas was obtained showing pO2 of 73, pCO2 of 39, pH of 7.41 this was done on FiO2 100%, patient was placed on BiPAP support. She was started on IV diuretics, antibiotics, breathing treatments. Labs did not show any evidence of leukocytosis, admission labs showed a white blood cell count of 10.4, hemoglobin of 10.1, electrolytes are within normal limits, BUN is 29 creatinine was 1.1 and renal profile has increased on today's labs, with B1 up to 42 and creatinine of 1.6. Her BNP was 12,400, troponin was negative at 0.021. Urinalysis was negative, and urine drug screen was negative. During my exam patient is seen still on BiPAP, but she has been able to tolera te periods on the high flow nasal cannula, she has 1+ pitting edema in lower extremities, lung sounds reveal diminished breath sounds bilaterally with fine rales at the bases. No further episodes of nausea and vomiting. No complaints of chest pain, cardiology is following, EKG showed a sinus rhythm with left bundle branch block and nonspecific STT wave changes On 03/22/2019 patient seen in follow-up on selective care unit, she is currently off BiPAP, she did wear it through the night, he is currently on 15 L of oxygen per high flow nasal cannula and her pulse ox is 88-89%, she is afebrile, she denies any chest pain, she is diuresing, her lower extremity edema is improving, lung sounds are positive for MRSA breath sounds with rales at the bases, she states she is dyspneic on today's exam, follow-up chest x-ray was obtained today shows bilateral infiltrates and pleural effusions, relatively stable, maybe slightly progressed. In negative fluid balance. Today's labs have been reviewe d, and showed no leukocytosis, with blood cell count is 8.7, hemoglobin is 9.7, sodium is 136, potassium is 4.4, chloride is 105, CO2 is 20, B1 is 55 and creatinine is 1.72, and renal profile is slightly worse on on today's labs. She remains on IV Lasix at 40 mg every 12 hours, she is on breathing treatments and IV steroids. On 03/23/2019 patient seen in follow-up on selective care unit. She is awake and alert, sitting up in the recliner, her oxygenation is improving, she remains on 15 L high flow oxygen with pulse ox of 94%, she says she is less dyspneic, in lower extremity edema is improving, follow-up chest x-ray from yesterday was reviewed, and showed bilateral infiltrates and pleural effusions related to history of CHF. She remains on IV Lasix at 40 mg every 12 hours, and today's lab work shows a woman of her renal profile with BUN at 52 and creatinine of 1.29. Patient is in -3400 cc fluid balance. Denies any chest pain, hemodynamics remained stable, no fever or chills, cardiology is considering possibility of transesophageal echocardiogram for evaluation of mitral valve d isease, and aortic valve stenosis. There is a possibility of heart catheterization once her fluid that is improved, her respiratory status stabilizes. Objective - Vital Signs Vital signs: Vital Signs Temp 98.0 F 03/23/19 08:00 Pulse 85 03/23/19 12:00 Resp 20 03/23/19 12:00 BP 134/59 03/23/19 12:00 Pulse Ox 98 03/23/19 12:00 Intake & Output 03/22/19 03/23/19 03/23/19 18:59 06:59 18:59 Intake Total 0 240 Output Total 3400 Balance 0 -3400 240 Weight 74.3 kg Intake: Oral 0 240 Output: Urine 3400 Uretheral (Sunshine) 1400 Other: Voiding Method Indwelling Catheter Indwelling Catheter Indwelling Catheter # Voids 1 1 # Bowel Movements 1 - Exam GENERAL EXAM: Alert, wasn't, 89-year-old white female, on 15 L per high flow nasal cannula pulse ox of 94% HEAD: Normocephalic/atraumatic. EYES: Normal reaction of pupils, equal size. Conjunctiva pink, sclera white. NOSE: Clear with pink turbinates. THROAT: No erythema or exudates. NECK: No masses, no JVD, no thyroid enlargement, no adenopathy. CHEST: No chest wall deformity. Symmetrical expansion. LUNGS: Equal air entry with diminished breath sounds with bibasilar crackles CVS: Regular rate and rhythm, normal S1 and S2, no gallops, no murmurs, no rubs ABDOMEN: Soft, nontender. No hepatosplenomegaly, normal bowel sounds, no guarding or rigidity. EXTREMITIES: No clubbing, 1+ edema bilateral lower extremities, no cyanosis, 2+ pulses and upper and lower extremities. MUSCULOSKELETAL: Muscle strength and tone normal. SPINE: No scoliosis or deformity SKIN: No rashes CENTRAL NERVOUS SYSTEM: Alert and oriented -3. No focal deficits, tone is normal in all 4 extremities. PSYCHIATRIC: Alert and oriented -3. Appropriate affect. Intact judgment and insight. - Labs CBC & Chem 7: 03/23/19 05:35 03/23/19 05:35 Labs: Abnormal Lab Results - Last 24 Hours (Table) 03/22/19 03/22/19 03/23/19 Range/Units 16:37 21:38 05:35 RBC 3.35 L (3.80-5.40) m/uL Hgb 10.6 L (11.4-16.0) gm/dL Hct 33.8 L (34.0-46.0) % MCV 101.0 H (80.0-100.0) fL Sodium (137-145) mmol/L Carbon Dioxide (22-30) mmol/L BUN (7-17) mg/dL Creatinine (0.52-1.04) mg/dL Glucose (74-99) mg/dL POC Glucose (mg/dL) 221 H 128 H (75-99) mg/dL Total Protein (6.3-8.2) g/dL Albumin (3.5-5.0) g/dL 03/23/19 03/23/19 03/23/19 Range/Units 05:35 06:16 11:38 RBC (3.80-5.40) m/uL Hgb (11.4-16.0) gm/dL Hct (34.0-46.0) % MCV (80.0-100.0) fL Sodium 134 L (137-145) mmol/L Carbon Dioxide 21 L (22-30) mmol/L BUN 52 H (7-17) mg/dL Creatinine 1.29 H (0.52-1.04) mg/dL Glucose 137 H (74-99) mg/dL POC Glucose (mg/dL) 163 H 258 H (75-99) mg/dL Total Protein 5.5 L (6.3-8.2) g/dL Albumin 3.2 L (3.5-5.0) g/dL Assessment and Plan Plan: Assessment: #1. Acute hypoxemic respiratory failure related to acute exacerbation of congestive heart failure with systolic dysfunction. Chest x-ray showed pulmonary edema, small bilateral pleural effusions #2. Nausea and vomiting at home, dehydration #3. Hypotension related to poor oral intake, nausea and vomiting, fluid resuscitated, with improvement in the blood pressure #4. Episode of unresponsiveness at home, brain CT showed no acute intracranial findings, showed moderate diffuse age-related cerebral atrophy and chronic small vessel ischemic changes #5. Acute kidney injury, likely related to ATN, diuretics, nausea and vomiting #6. Valvular heart disease, severe mitral regurgitation, and moderate aortic stenosis #7. Recent hospitalization for acute exacerbation of CHF and a urinary tract infection #8. Previous episode of GI bleeding #9. History of coronary artery disease with the stenting in November 2017 #10. Diabetes mellitus type 2 #11. Hypertention, hyperlipidemia #12. Previous history of bilateral thoracentesis, in December 2018, with removal of 800 mL from the left and 1300 mL from the right pleural effusion cytology was negative, pleural fluid cultures were negative, and analysis showed transudative fluid consistent with history of congestive heart failure Plan: We'll continue with IV diuretics, on today's labs renal profile is improving, fluid volume status is improving, oxygenation is improving, wean FiO2, BiPAP support as needed. Cardiology is considering SALO and the there is a possibility of heart catheterization in the near future evaluation of coronary artery disease, and valvular heart disease. Continue to follow. I performed a history & physical examination of the patient and discussed their management with my nurse practitioner, Earline Dumas. I reviewed the nurse practitioner's note and agree with the documented findings and plan of care. Lung sounds are positive for diminished breath sounds with bibasilar crackles. The findings and the impression was discussed with the patient. I attest to the documentation by the nurse practitioner. Time with Patient: Less than 30
--- NOTE | 2019-03-23 13:46 | P.PN ---
Subjective Progress Note Date: 03/23/19 89-year-old female one of Dr. Sales discharge on 03/15 with past medical history of systolic congestive heart failure, severe mitral regurgitation, moderate aortic stenosis, hypertension, chronic kidney disease stage III, type 2 diabetes, memory loss mostly is examined disease, known coronary artery disease, recurrent depression, hyperlipidemia who was just discharged a week ago after being treated for CHF exacerbation and NSTEMI. According to the daughter bedside patient became nonverbal and unresponsive and was brought to the ER. On evaluation in the ER patient was only responsive to painful stimulus. Within few minutes patient recovered and was oriented 3. Brain CT was negative for any new strokes. Venous blood gas was unremarkable. Labs ordered suggestive of hemoglobin of 10.1 stable as compared to the previous labs, BUN/creatinine 29 and creatinine 1.1, glucose 220 6B UN 29, BNP 12,400, troponin 0.021. Echo obtained during last admission suggest EF of 35-40% with apical inferior lateral hypokinesia. Cardiology and and pulmonary was consulted. Chest x-ray suggestive of pulmonary venous congestion and cardiomegaly. The daughter bedside and was not relating to give Lasix to the patient. On evaluation in the ER patient was currently on 6 L of oxygen saturating well but very short of breath trying to catch her breath on 6 L with symptoms positive for paroxysmal nocturnal dyspnea, orthopnea with bilateral lower extremity edema, no fever no chills no cough production. White is obtained suggest night temp of 98.6, pulse 82 respiratory rate 20 blood pressure 146/72 saturating at 91% On 6 L spelled since patient was short of breath on 6 L patient was switched to a nonrebreather and will be monitored overnight in the ICU 03/21: Patient is seen on the cardiac stepdown unit. She has been seen by cardiology with recommendations to resume her home diuretics and stop the IV Lasix, gradually resume beta giselle and consider adding Aldactone. Norvasc was discontinued. Patient has been afebrile, heart rate in the 70s, blood pressure 107/63, patient was on BiPAP and currently on nasal cannula high flow at 9 L. Repeat lab work reveals white count is 8.4, hemoglobin 10.7. Renal function has increased with a BUN of 42 and creatinine 1.68. Blood sugars are running between 181 and 210. The patient continues to have wheezing we will decrease her Solu-Medrol to 40 mg every 8 hours. Breathing is improved from yesterday. She denies having any abdominal pain. She is complaining of some left-sided chest pain that is tender to palpation. She denies any palpitations. She has a Sunshine catheter in place and diuresing well. Weight is down 3 kg. 03/22: The patient has been afebrile, heart rate in the 80s and 90s, blood pressure 120/48, patient is currently on high flow nasal cannula at 15 L pulse oxing 88-90%. WBC 8.7, hemoglobin 9.7. Sodium 136, potassium 4.4, chloride 105, CO2 20, BUN 55 and creatinine 1.7 to. Blood sugar this morning was 216. Solu-Medrol has been decreased to 40 every 12 hours by pulmonary medicine. Patient to use BiPAP as needed. Patient is also seen and followed by Dr. Farmer and Lasix was changed to IV. She is currently on IV Lasix 40 mg every 12 hours. Discussed CODE STATUS with the patient in depth and she wishes to be a full code and intubated if necessary. Patient's prognosis is poor. Patient and daughter to talk with cardiology regarding options regarding surgery and heart catheterization. Patient does not appear to be a surgical candidate and prognosis is poor. 03/23: Patient is afebrile, heart rate in the 90s, blood pressure 132/63, pulse ox 94% on 15 L nasal cannula. WBC is 11.3, hemoglobin 10.6. Sodium 134, potassium 5.1, chloride 105, CO2 21, BUN 52 and creatinine 1.29, blood sugars running be tween 128 and 221. Repeat chest x-ray reveals bilateral infiltrate and pleural effusions correlate for heart failure. Patient states that her breathing is improved today. She has no pedal edema. Sunshine catheter is draining clear shiv urine. Oxygen time of eval is down 8 L. She is currently on Solu-Medrol at 40 mg every 12 hours and IV Lasix 40 mg every 12. Review of Systems Constitutional: Denies chills, Denies fever, reports lethargy, reports malaise, Denies poor appetite, reports weakness, Denies weight loss Eyes: denies decreased vision, denies diplopia, denies discharge, denies pain Ears: deny: decreased hearing Ears, nose, mouth and throat: Denies dental pain, Denies headache, Denies nasal discharge, Denies nose pain Cardiovascular: Denies chest pain, reports decreased exercise tolerance, endorses edema, Denies high blood pressure, Denies irregular heart beat, Denies palpitations, endorses paroxysmal nocturnal dyspnea, Denies rapid heart beat, endorses shortness of breath endorses orthopnea Respiratory: Denies congestion, Denies cough, Denies cough with sputum, endorses dyspnea, uses 2-3 L home oxygen, endorses wheezing Gastrointestinal: Denies abdominal pain, Denies change in bowel habits, Denies coffee ground emesis, Denies early satiety, Denies excessive gas, Denies heartburn, Denies hematemesis, Denies hematochezia, Denies loss of appetite, Denies nausea, Denies vomiting Genitourinary: Denies dysuria, Denies flank pain, Denies kidney stones, Denies menorrhagia, Denies urgency, Denies urinary frequency Musculoskeletal: Denies gait dysfunction, Denies limitation of motion, Denies morning stiffness, Denies muscle cramps Integumentary: Denies rash, Denies wounds, Denies brittle nails, Denies change in hair/nails, Denies darkening of skin Neurological: Denies balance difficulties, Denies change in speech, Denies double vision, Denies gait dysfunction, Denies loss of vision, Denies motor disturbance, Denies numbness, Denies paralysis, Denies paresthesias, Denies seizures Endocrine: Denies excessive sweating, Denies excessive thirst, reports high blood sugars Hematologic/Lymphatic: Denies easy bruising, Denies lymphadenopathy Objective - Vital Signs Vital signs: Vital Signs Temp 98.1 F 03/23/19 04:00 Pulse 95 03/23/19 04:00 Resp 20 03/23/19 04:00 BP 132/63 03/23/19 04:00 Pulse Ox 94 L 03/23/19 04:00 Intake & Output 03/22/19 03/23/19 03/23/19 18:59 06:59 18:59 Intake Total 0 240 Output Total 3400 Balance 0 -3400 240 Weight 74.3 kg Intake: Oral 0 240 Output: Urine 3400 Uretheral (Sunshine) 1400 Other: Voiding Method Indwelling Catheter Indwelling Catheter # Voids 1 # Bowel Movements 1 - Exam General appearance: cooperative, no distress but is on 8 L oxygen, obese - EENT Eyes: anicteric sclerae, PERRLA, normal appearance ENT: hearing grossly normal - Neck Neck: no lymphadenopathy, normal ROM, no other, no rigidity, no stridor, no thyromegaly - Respiratory Respiratory: bilateral: Diminished bilaterally lower of both lungs - Cardiovascular Rhythm: regular Heart sounds: normal: S1, S2 Abnormal Heart Sounds: 3/6 systolic murmur left lateral sternal border, no diastolic murmur, no rub, no S3 Gallop, no S4 Gallop, no click, no other No pedal edema - Gastrointestinal General gastrointestinal: normal bowel sounds, soft Sunshine with clear shiv urine - Integumentary Integumentary: no rash - Neurologic Neurologic: CNII-XII intact - Musculoskeletal Musculoskeletal: Gait not assessed strength equal bilaterally - Psychiatric Psychiatric: A&O x's 3, appropriate affect - Labs CBC & Chem 7: 03/23/19 05:35 03/23/19 05:35 Labs: Abnormal Lab Results - Last 24 Hours (Table) 03/22/19 03/22/19 03/22/19 Range/Units 11:26 16:37 21:38 RBC (3.80-5.40) m/uL Hgb (11.4-16.0) gm/dL Hct (34.0-46.0) % MCV (80.0-100.0) fL Sodium (137-145) mmol/L Carbon Dioxide (22-30) mmol/L BUN (7-17) mg/dL Creatinine (0.52-1.04) mg/dL Glucose (74-99) mg/dL POC Glucose (mg/dL) 207 H 221 H 128 H (75-99) mg/dL Total Protein (6.3-8.2) g/dL Albumin (3.5-5.0) g/dL 03/23/19 03/23/19 03/23/19 Range/Units 05:35 05:35 06:16 RBC 3.35 L (3.80-5.40) m/uL Hgb 10.6 L (11.4-16.0) gm/dL Hct 33.8 L (34.0-46.0) % MCV 101.0 H (80.0-100.0) fL Sodium 134 L (137-145) mmol/L Carbon Dioxide 21 L (22-30) mmol/L BUN 52 H (7-17) mg/dL Creatinine 1.29 H (0.52-1.04) mg/dL Glucose 137 H (74-99) mg/dL POC Glucose (mg/dL) 163 H (75-99) mg/dL Total Protein 5.5 L (6.3-8.2) g/dL Albumin 3.2 L (3.5-5.0) g/dL Assessment and Plan Plan: 1 acute on chronic hypoxic respiratory failure secondary to acute on chronic systolic heart failure, moderate aortic stenosis, severe mitral regurgitation, bilateral pleural effusions. Cardiology consult appreciated. Currently on IV Lasix 40 mg twice daily. Continue Ranexa 1000 mg twice daily, Imdur 30 mg daily. I&O and daily weights. Monitor renal function and electrolytes. Patient may require further workup regarding valvular heart disease. 2 acute on chronic hypoxic respiratory failure. Home oxygen is up to 4 L. Patient is currently on nasal cannula at 8 L. 3 bilateral pleural effusion: No need for thoracentesis. 4 hypertension. Norvasc discontinued. Continue hydralazine 25 mg 3 times daily, Imdur 30 mg daily, Lopressor is currently on hold. 5 chronic kidney disease stage 3. Nephrology consult. 6 type 2 diabetes. Continue NovoLog scale before meals and at bedtime, hold Tradjenta. 7 non-ST segment elevation myocardial infarction on previous admission. Continue aspirin 81 mg daily, Lipitor, beta giselle to be resumed slowly per cardiology. 8 memory loss: Most likely Alzheimer disease, patient remain on galantamine 4 mg twice a day, Aricept 5 mg daily. 9 history of coronary artery disease. 10 recurrent depression: Patient has been on Lexapro 10 mg a day. 11 hyperlipidemia: Remain on Lipitor 40 mg daily. DVT prophylaxis with heparin every 12. GI prophylaxis. Pepcid 20 mg daily. Discharge plan: Most likely home with [facility] Impression and plan of care have been directed as dictated by the signing physician. Donita Padron nurse practitioner acting as scribe for signing physician.
--- NOTE | 2019-03-23 15:12 | P.PN ---
Subjective Progress Note Date: 03/23/19 This is a pleasant 89-year-old female with history of severe mitral regurgitation, moderate aortic stenosis, systolic congestive heart failure, hypertension, chronic kidney disease stage III, diabetes, hyperlipidemia, coronary artery disease, who has had several recent admissions to the hospital. On this occasion patient was brought to the hospital, because her family found her unresponsive. After arrival to the emergency room, patient did become alert and oriented 3. CT of the brain was performed which was negative for any new strokes. Venous blood gas was unremarkable. White blood cell count 10.4 on admission 8.4 this morning, hemoglobin 10.7, platelet count 370. Sodium 138, potassium 4.8, BUN on admission 29 and creatinine 1.1, this morning 42 and 1.6. Troponin 0.021. BNP level 12,400. Drug screen was negative. Urinalysis negative. Chest x-ray on admission showed findings consistent with CHF exacerbation. Bilateral pleural effusions. EKG shows normal sinus rhythm with first-degree AV block and nonspecific ST-T wave changes. Blood pressure on arrival here 80/40, heart rate in the 60s, 96% on 6 L of oxygen. Let pressure this morning 108/60 heart rate in the 70s, she's 93% on 70% BiPAP. At the time of my examination this morning, the patient is sitting up in her chair at bedside, she did put out good urine through the night last night, appears to be alert and oriented 2. States that she does feel that her breathing is improving however still complains of feeling somewhat short of breath. 03/23/2019 Patient was seen and examined this morning, she sitting up in the chair at bedside. Diuresing well. Breathing is improved significantly. Blood pressure 134/60 with a heart rate in the 80s, 98% on 10 L of oxygen. Blood cell count 7.3, hemoglobin 10.6, platelet count 276. Sodium 134, potassium 4.1, BUN 52 and creatinine 1.2. I had a lengthy discussion with the patient and her daughter today, the daughter is quite insistent that the patient not be discharged home, with the fear for returning back in congestive heart failure. Dr. Jo also had a discussion with the daughter, explaining that a cardiac catheterization as well as SALO will need to be performed on the patient prior to her having an evaluation by a surgeon at an external facility for possible valve procedures. At this point in time we will continue current dose of IV Lasix. Objective - Vital Signs Vital signs: Vital Signs Temp 98.0 F 03/23/19 08:00 Pulse 85 03/23/19 12:00 Resp 20 03/23/19 12:00 BP 134/59 03/23/19 12:00 Pulse Ox 98 03/23/19 12:00 Intake & Output 03/22/19 03/23/19 03/23/19 18:59 06:59 18:59 Intake Total 0 240 Output Total 3400 Balance 0 -3400 240 Weight 74.3 kg Intake: Oral 0 240 Output: Urine 3400 Uretheral (Sunshine) 1400 Other: Voiding Method Indwelling Catheter Indwelling Catheter Indwelling Catheter # Voids 1 1 # Bowel Movements 1 - Exam PHYSICAL EXAMINATION: GENERAL: 89-year-old female in no acute distress at the time of my examination HEENT: Head is atraumatic, normocephalic. Pupils equal, round. Sclera anicteric. Conjunctiva are clear. Mucous membranes of the mouth are moist. Neck is supple. There is no elevated jugular venous pressure. No carotid bruit is heard. HEART EXAMINATION: R S1 and S2 systolic ejection murmur is heard CHEST EXAMINATION: Lungs reveal crackles bilaterally with some improvement in air entry to the bases. ABDOMEN: Soft, nontender. Bowel sounds are heard. No organomegaly noted. EXTREMITIES: 2+ peripheral pulses with no evidence of peripheral edema and no calf tenderness noted. NEUROLOGIC patient is awake, alert and oriented 2 . - Labs CBC & Chem 7: 03/23/19 05:35 03/23/19 05:35 Labs: Abnormal Lab Results - Last 24 Hours (Table) 03/22/19 03/22/19 03/23/19 Range/Units 16:37 21:38 05:35 RBC 3.35 L (3.80-5.40) m/uL Hgb 10.6 L (11.4-16.0) gm/dL Hct 33.8 L (34.0-46.0) % MCV 101.0 H (80.0-100.0) fL Sodium (137-145) mmol/L Carbon Dioxide (22-30) mmol/L BUN (7-17) mg/dL Creatinine (0.52-1.04) mg/dL Glucose (74-99) mg/dL POC Glucose (mg/dL) 221 H 128 H (75-99) mg/dL Total Protein (6.3-8.2) g/dL Albumin (3.5-5.0) g/dL 03/23/19 03/23/19 03/23/19 Range/Units 05:35 06:16 11:38 RBC (3.80-5.40) m/uL Hgb (11.4-16.0) gm/dL Hct (34.0-46.0) % MCV (80.0-100.0) fL Sodium 134 L (137-145) mmol/L Carbon Dioxide 21 L (22-30) mmol/L BUN 52 H (7-17) mg/dL Creatinine 1.29 H (0.52-1.04) mg/dL Glucose 137 H (74-99) mg/dL POC Glucose (mg/dL) 163 H 258 H (75-99) mg/dL Total Protein 5.5 L (6.3-8.2) g/dL Albumin 3.2 L (3.5-5.0) g/dL Assessment and Plan Plan: Assessment and plan #1 episode of unresponsiveness, CT of the brain did not reveal any evidence of acute stroke, could be secondary to hypotension, blood pressure on arrival 80/60 #2 systolic congestive heart failure acute on chronic #3 hypertension #4 chronic kidney disease stage III #5 diabetes #6 Alzheimer's disease #7 hyperlipidemia #8 severe mitral regurgitation with moderate aortic stenosis Plan Continue IV Lasix as per nephrology. We will also discuss the possibility of the patient undergoing a cardiac catheterization and transesophageal echocardiographic study on Wednesday. DNP note has been reviewed, I agree with a documented findings and plan of care. Patient was seen and examined.
[2019-03-23 16:29] LABS: Glucose,Whole Blood 195 mg/dL (75-99)
--- NOTE | 2019-03-23 17:15 | PN ---
PROGRESS NOTE Patient is seen for followup for acute kidney injury which was mainly secondary to hypotension, hypoperfusion. Renal function has improved with improvement in blood pressure. Currently she is being diuresed. Patient is maintained on IV Lasix. Her volume status has improved. Overall patient states she is feeling better. On examination, blood pressure this morning was 133/62, heart rate 84 per minute. She is afebrile. EXAMINATION OF THE HEART: S1 and S2. EXAMINATION OF LUNGS: Bilateral breath sounds are heard. Decreased breath sounds at the bases. Basal crackles are heard bilaterally. ABDOMEN: Soft, non-tender. Examination of lower extremities shows decreased edema, bilateral lower extremities. Labs show hemoglobin 10.6, sodium 134, potassium 4.1. Serum creatinine down to 1.29. ASSESSMENT: 1. Acute kidney injury secondary to hypotension, hypoperfusion, currently improved significantly. May continue with the IV push Lasix for now. 2. Volume overload, slowly improving. [id number] urine output documented at 3.4 L. 3. Cardiomyopathy; ejection fraction of about 35%. 4. Valvular heart disease with mitral regurgitation with plans for transesophageal echocardiogram and/or cardiac catheterization once volume status is better. 5. Chronic kidney disease, NKF stage III, with previous creatinine about 0.9 mg/dL in February and about 0.83 at lowest in December of 2018. Etiology is nephrosclerosis. PLAN: Continue with the IV Lasix for now. Repeat labs in a.m. MMROSA / ELIZABETHN: [id number] /
[2019-03-23] MEDS: ALPRAZolam 0.25 MG TAB PO PRN (18:31)
[2019-03-23] MEDS: NITROGLYCERIN SL TABS 0.4 MG TAB SUBLINGUAL PRN ×2 (19:02→19:07)
[2019-03-23] MEDS ORDERED: FUROSEMIDE 10 MG/ML 4 ML VIAL IV STA (19:20)
--- NOTE | 2019-03-23 19:44 | XR ---
EXAMINATION TYPE: XR chest 1V portable DATE OF EXAM: 03/23/2019 COMPARISON: Yesterday HISTORY: Short of breath TECHNIQUE: Single frontal view of the chest is obtained. FINDINGS: Heart is enlarged. There is probably vascular congestion and blunting of costophrenic angl es. There are chest leads. IMPRESSION: Congestive heart failure with pleural fluid improved slightly compared to yesterday.
[2019-03-23 20:48] LABS: Glucose,Whole Blood 189 mg/dL (75-99)
[2019-03-23] MEDS: INSULIN NPH 300 UNIT/3 ML VIAL SQ SCH (22:04)
[2019-03-24 06:32] LABS: Glucose,Whole Blood 260 mg/dL (75-99)
[2019-03-24] MEDS: INSULIN ASPART (NovoLOG) 100 UNIT/ML VIAL SQ SCH ×7 (06:46→20:48)
[2019-03-24 07:06] LABS: Calcium 9.4 mg/dL (8.4-10.2)
[2019-03-24] MEDS: IPRATROPIUM-ALBUTEROL 3 ML NEB INHALATION PRN ×4 (08:06→20:51)
[2019-03-24] MEDS: DONEPEZIL 5 MG TAB PO SCH (09:13)
[2019-03-24] MEDS: hydrALAZINE HCL 25 MG TAB PO SCH ×3 (09:13→20:48)
[2019-03-24] MEDS: ASPIRIN 81 MG PO SCH (09:13)
[2019-03-24] MEDS: guaiFENesin 600 MG TABLET.ER PO SCH ×2 (09:13→20:48)
[2019-03-24] MEDS: ISOSORBIDE MONONITRATE ER 30 MG TAB.ER.24H PO SCH (09:13)
[2019-03-24] MEDS: ESCITALOPRAM 10 MG TAB PO SCH (09:13)
[2019-03-24] MEDS: ATORVASTATIN 40 MG TAB PO SCH (09:13)
[2019-03-24] MEDS: POTASSIUM CHLORIDE ER 20 MEQ TAB.ER PO SCH (09:13)
[2019-03-24] MEDS: FUROSEMIDE 10 MG/ML 4 ML VIAL IV SCH ×2 (09:14→20:47)
[2019-03-24] MEDS: methylPREDNISolone SOD SUCCI 40 MG/ML 1 ML VIAL IV SCH (09:14)
[2019-03-24] MEDS: HEPARIN SODIUM,PORCINE 5,000 UNIT/ML 1 ML VIAL SQ SCH ×2 (09:14→20:48)
[2019-03-24] MEDS: INSULIN NPH 300 UNIT/3 ML VIAL SQ SCH ×2 (09:22→20:48)
[2019-03-24] MEDS: FAMOTIDINE 20 MG TAB PO SCH (09:22)
[2019-03-24 11:45] LABS: Glucose,Whole Blood 214 mg/dL (75-99)
[2019-03-24] MEDS: NITROGLYCERIN SL TABS 0.4 MG TAB SUBLINGUAL PRN ×3 (12:26→12:54)
[2019-03-24] MEDS ORDERED: METOPROLOL TARTRATE 5 MG/5 ML VIAL IVP ONE (12:48)
--- NOTE | 2019-03-24 13:15 | P.PN ---
Subjective Progress Note Date: 03/24/19 89-year-old female one of Dr. Sales discharge on 03/15 with past medical history of systolic congestive heart failure, severe mitral regurgitation, moderate aortic stenosis, hypertension, chronic kidney disease stage III, type 2 diabetes, memory loss mostly is examined disease, known coronary artery disease, recurrent depression, hyperlipidemia who was just discharged a week ago after being treated for CHF exacerbation and NSTEMI. According to the daughter bedside patient became nonverbal and unresponsive and was brought to the ER. On evaluation in the ER patient was only responsive to painful stimulus. Within few minutes patient recovered and was oriented 3. Brain CT was negative for any new strokes. Venous blood gas was unremarkable. Labs ordered suggestive of hemoglobin of 10.1 stable as compared to the previous labs, BUN/creatinine 29 and creatinine 1.1, glucose 220 6B UN 29, BNP 12,400, troponin 0.021. Echo obtained during last admission suggest EF of 35-40% with apical inferior lateral hypokinesia. Cardiology and and pulmonary was consulted. Chest x-ray suggestive of pulmonary venous congestion and cardiomegaly. The daughter bedside and was not relating to give Lasix to the patient. On evaluation in the ER patient was currently on 6 L of oxygen saturating well but very short of breath trying to catch her breath on 6 L with symptoms positive for paroxysmal nocturnal dyspnea, orthopnea with bilateral lower extremity edema, no fever no chills no cough production. White is obtained suggest night temp of 98.6, pulse 82 respiratory rate 20 blood pressure 146/72 saturating at 91% On 6 L spelled since patient was short of breath on 6 L patient was switched to a nonrebreather and will be monitored overnight in the ICU 03/21: Patient is seen on the cardiac stepdown unit. She has been seen by cardiology with recommendations to resume her home diuretics and stop the IV Lasix, gradually resume beta giselle and consider adding Aldactone. Norvasc was discontinued. Patient has been afebrile, heart rate in the 70s, blood pressure 107/63, patient was on BiPAP and currently on nasal cannula high flow at 9 L. Repeat lab work reveals white count is 8.4, hemoglobin 10.7. Renal function has increased with a BUN of 42 and creatinine 1.68. Blood sugars are running between 181 and 210. The patient continues to have wheezing we will decrease her Solu-Medrol to 40 mg every 8 hours. Breathing is improved from yesterday. She denies having any abdominal pain. She is complaining of some left-sided chest pain that is tender to palpation. She denies any palpitations. She has a Sunshine catheter in place and diuresing well. Weight is down 3 kg. 03/22: The patient has been afebrile, heart rate in the 80s and 90s, blood pressure 120/48, patient is currently on high flow nasal cannula at 15 L pulse oxing 88-90%. WBC 8.7, hemoglobin 9.7. Sodium 136, potassium 4.4, chloride 105, CO2 20, BUN 55 and creatinine 1.7 to. Blood sugar this morning was 216. Solu-Medrol has been decreased to 40 every 12 hours by pulmonary medicine. Patient to use BiPAP as needed. Patient is also seen and followed by Dr. Farmer and Lasix was changed to IV. She is currently on IV Lasix 40 mg every 12 hours. Discussed CODE STATUS with the patient in depth and she wishes to be a full code and intubated if necessary. Patient's prognosis is poor. Patient and daughter to talk with cardiology regarding options regarding surgery and heart catheterization. Patient does not appear to be a surgical candidate and prognosis is poor. 03/23: Patient is afebrile, heart rate in the 90s, blood pressure 132/63, pulse ox 94% on 15 L nasal cannula. WBC is 11.3, hemoglobin 10.6. Sodium 134, potassium 5.1, chloride 105, CO2 21, BUN 52 and creatinine 1.29, blood sugars running be tween 128 and 221. Repeat chest x-ray reveals bilateral infiltrate and pleural effusions correlate for heart failure. Patient states that her breathing is improved today. She has no pedal edema. Sunshine catheter is draining clear shiv urine. Oxygen time of eval is down 8 L. She is currently on Solu-Medrol at 40 mg every 12 hours and IV Lasix 40 mg every 12. 03/24: The patient developed flash pulmonary edema yesterday and chest pain and was started on nitroglycerin sublingual and received extra dose of Lasix. She was also placed on BiPAP overnight. She is currently on 10 L high flow nasal cannula and pulse oxing 96%. Cardiology is planning for heart catheterization and SALO on Wednesday. Patient is continued on IV Lasix 40 mg twice daily. She has been afebrile, heart rate in the 90s. Blood sugars have been elevated at 189- 260 and patient was started last evening on NovoLog scheduled with meals and NPH 10 units twice daily. Patient's daughter is at the bedside and has been updat ed. Review of Systems Constitutional: Denies chills, Denies fever, reports lethargy, reports malaise, Denies poor appetite, reports weakness, Denies weight loss Eyes: denies decreased vision, denies diplopia, denies discharge, denies pain Ears: deny: decreased hearing Ears, nose, mouth and throat: Denies dental pain, Denies headache, Denies nasal discharge, Denies nose pain Cardiovascular: Denies chest pain, reports decreased exercise tolerance, endorses edema, Denies high blood pressure, Denies irregular heart beat, Denies palpitations, endorses paroxysmal nocturnal dyspnea, Denies rapid heart beat, endorses shortness of breath endorses orthopnea Respiratory: Denies congestion, Denies cough, Denies cough with sputum, endorses dyspnea, uses 2-3 L home oxygen, endorses wheezing Gastrointestinal: Denies abdominal pain, Denies change in bowel habits, Denies c offee ground emesis, Denies early satiety, Denies excessive gas, Denies heartburn, Denies hematemesis, Denies hematochezia, Denies loss of appetite, Denies nausea, Denies vomiting Genitourinary: Denies dysuria, Denies flank pain, Denies kidney stones, Denies menorrhagia, Denies urgency, Denies urinary frequency Musculoskeletal: Denies gait dysfunction, Denies limitation of motion, Denies morning stiffness, Denies muscle cramps Integumentary: Denies rash, Denies wounds, Denies brittle nails, Denies change in hair/nails, Denies darkening of skin Neurological: Denies balance difficulties, Denies change in speech, Denies double vision, Denies gait dysfunction, Denies loss of vision, Denies motor disturbance, Denies numbness, Denies paralysis, Denies paresthesias, Endocrine: Denies excessive sweating, Denies excessive thirst, reports abnormal blood sugars Hematologic/Lymphatic: Denies easy bruising, Denies lymphadenopathy Objective - Vital Signs Vital signs: Vital Signs Temp 97.4 F L 03/24/19 08:00 Pulse 90 03/24/19 08:19 Resp 18 03/24/19 08:00 BP 151/78 03/24/19 08:00 Pulse Ox 96 03/24/19 08:07 Intake & Output 03/23/19 03/24/19 03/24/19 18:59 06:59 18:59 Intake Total 480 180 Output Total 850 2500 Balance -370 -2500 180 Weight 73 kg Intake: Oral 480 180 Output: Urine 850 2500 Other: Voiding Method Indwelling Catheter Indwelling Catheter # Voids 1 1 # Bowel Movements 1 1 - Exam General appearance: cooperative, no distress but is on 10 L oxygen while sitting in recliner, obese - EENT Eyes: anicteric sclerae, PERRLA, normal appearance ENT: hearing grossly normal - Neck Neck: no lymphadenopathy, normal ROM, no other, no rigidity, no stridor, no thyromegaly - Respiratory Respiratory: bilateral: Diminished bilaterally lower of both lungs - Cardiovascular Rhythm: regular Heart sounds: normal: S1, S2 Abnormal Heart Sounds: 3/6 systolic murmur left lateral sternal border, no diastolic murmur, no rub, no S3 Gallop, no S4 Gallop, no click, no other No pedal edema - Gastrointestinal General gastrointestinal: normal bowel sounds, soft Sunshine with clear shiv urine - Integumentary Integumentary: no rash - Neurologic Neurologic: CNII-XII intact - Musculoskeletal Musculoskeletal: Gait not assessed strength equal bilaterally - Psychiatric Psychiatric: A&O x's 3, appropriate affect - Labs CBC & Chem 7: 03/23/19 05:35 03/24/19 06:43 Labs: Abnormal Lab Results - Last 24 Hours (Table) 03/23/19 03/23/19 03/23/19 Range/Units 11:38 16:28 20:46 BUN (7-17) mg/dL Glucose (74-99) mg/dL POC Glucose (mg/dL) 258 H 195 H 189 H (75-99) mg/dL 03/24/19 03/24/19 Range/Units 06:31 06:43 BUN 45 H (7-17) mg/dL Glucose 221 H (74-99) mg/dL POC Glucose (mg/dL) 260 H (75-99) mg/dL Assessment and Plan Plan: 1 acute on chronic hypoxic respiratory failure secondary to acute on chronic systolic heart failure, moderate aortic stenosis, severe mitral regurgitation, bilateral pleural effusions. Cardiology consult appreciated. Currently on IV Lasix 40 mg twice daily. Continue Ranexa 1000 mg twice daily, Imdur 30 mg daily. I&O and daily weights. Monitor renal function and electrolytes. Heart catheterization and SALO on Wednesday. 2 acute on chronic hypoxic respiratory failure. Home oxygen is up to 4 L. Patient is currently on nasal cannula at 10 L. 3 bilateral pleural effusion: No need for thoracentesis. 4 hypertension. Norvasc discontinued. Continue hydralazine 25 mg 3 times daily, Imdur 30 mg daily, Lopressor is currently on hold. 5 chronic kidney disease stage 3. Nephrology consult. 6 type 2 diabetes. Continue NovoLog scale before meals and at bedtime, hold Tradjenta. 7 non-ST segment elevation myocardial infarction on previous admission. Continue aspirin 81 mg daily, Lipitor, beta giselle to be resumed slowly per cardiology. 8 memory loss: Most likely Alzheimer disease, patient remain on galantamine 4 mg twice a day, Aricept 5 mg daily. 9 history of coronary artery disease. 10 recurrent depression: Patient has been on Lexapro 10 mg a day. 11 hyperlipidemia: Remain on Lipitor 40 mg daily. DVT prophylaxis with heparin every 12. GI prophylaxis. Pepcid 20 mg daily. Discharge plan: Most likely home with [facility] Impression and plan of care have been directed as dictated by the signing physician. Donita Padron nurse practitioner acting as scribe for signing physician.
--- NOTE | 2019-03-24 13:53 | P.PN ---
Subjective Progress Note Date: 03/24/19 Principal diagnosis: Acute exacerbation of chronic congestive heart failure This is a 89-year-old female patient of Dr. Sales, with known history of valvular heart disease, severe mitral regurgitation, and moderate aortic stenosis, hypertension, hyperlipidemia, chronic congestive heart failure, previous myocardial infarction with stenting of the LAD in November 2017, type 2 diabetes mellitus, who was recently hospitalized for acute exacerbation of congestive heart failure with systolic dysfunction, and non-ST segment elevated myocardial infarction. Echocardiogram was completed during that admission and showed ejection fraction of 35-40%. Patient was discharged home on 03/15/2019, on oral Lasix of 40 mg twice daily. Patient was brought to the hospital on 03/20/2019 for complaints of worsening shortness of breath, patient woke up out of her sleep and couldn't breathe, was having some chest pain that responded to sublingual nitro, vision also had episode of unresponsiveness at home. Patient had some episodes of emesis at home, did have some chills, but was afebrile. Chest x-ray was completed showing persistent central vascular congestion and bibasilar opacities/bilateral pleural effusions. Patient did have some hypotension, apparently she was a bit dehydrated from vomiting. Did have some abdominal discomfort across the upper abdomen, but abdomen is soft, no diarrhea. She was given the a liter bolus in the emergency department, she was in significant respiratory distress, and blood gas was obtained showing pO2 of 73, pCO2 of 39, pH of 7.41 this was done on FiO2 100%, patient was placed on BiPAP support. She was started on IV diuretics, antibiotics, breathing treatments. Labs did not show any evidence of leukocytosis, admission labs showed a white blood cell count of 10.4, hemoglobin of 10.1, electrolytes are within normal limits, BUN is 29 creatinine was 1.1 and renal profile has increased on today's labs, with B1 up to 42 and creatinine of 1.6. Her BNP was 12,400, troponin was negative at 0.021. Urinalysis was negative, and urine drug screen was negative. During my exam patient is seen still on BiPAP, but she has been able to tolera te periods on the high flow nasal cannula, she has 1+ pitting edema in lower extremities, lung sounds reveal diminished breath sounds bilaterally with fine rales at the bases. No further episodes of nausea and vomiting. No complaints of chest pain, cardiology is following, EKG showed a sinus rhythm with left bundle branch block and nonspecific STT wave changes On 03/22/2019 patient seen in follow-up on selective care unit, she is currently off BiPAP, she did wear it through the night, he is currently on 15 L of oxygen per high flow nasal cannula and her pulse ox is 88-89%, she is afebrile, she denies any chest pain, she is diuresing, her lower extremity edema is improving, lung sounds are positive for MRSA breath sounds with rales at the bases, she states she is dyspneic on today's exam, follow-up chest x-ray was obtained today shows bilateral infiltrates and pleural effusions, relatively stable, maybe slightly progressed. In negative fluid balance. Today's labs have been reviewe d, and showed no leukocytosis, with blood cell count is 8.7, hemoglobin is 9.7, sodium is 136, potassium is 4.4, chloride is 105, CO2 is 20, B1 is 55 and creatinine is 1.72, and renal profile is slightly worse on on today's labs. She remains on IV Lasix at 40 mg every 12 hours, she is on breathing treatments and IV steroids. On 03/23/2019 patient seen in follow-up on selective care unit. She is awake and alert, sitting up in the recliner, her oxygenation is improving, she remains on 15 L high flow oxygen with pulse ox of 94%, she says she is less dyspneic, in lower extremity edema is improving, follow-up chest x-ray from yesterday was reviewed, and showed bilateral infiltrates and pleural effusions related to history of CHF. She remains on IV Lasix at 40 mg every 12 hours, and today's lab work shows a woman of her renal profile with BUN at 52 and creatinine of 1.29. Patient is in -3400 cc fluid balance. Denies any chest pain, hemodynamics remained stable, no fever or chills, cardiology is considering possibility of transesophageal echocardiogram for evaluation of mitral valve d isease, and aortic valve stenosis. There is a possibility of heart catheterization once her fluid that is improved, her respiratory status stabilizes. On 03/24/2019 patient seen in follow-up on the selective care unit. Patient apparently had episode of chest discomfort last night, increased shortness of breath, stat chest x-ray was obtained showing changes of fluid overload, congestive heart failure which was actually slightly improved from the previous chest x-ray, nevertheless patient was given an extra dose of IV Lasix, and subsequently her breathing had improved. On today's exam she is sitting up in the recliner, currently on 2 L per high flow nasal cannula, lung sounds reveal fine bibasilar crackles, no rhonchi or wheezes, no complaints of chest pain. Vital signs are stable, today's lab work has been reviewed showing electrolytes within normal limits, and further improvement in patient's renal profile with BUN of 45 and creatinine of 0.94. No fever, no chills, patient remains on IV diuretics, and breathing treatments, will await further recommendations from cardiology. Objective - Vital Signs Vital signs: Vital Signs Temp 97.4 F L 03/24/19 08:00 Pulse 92 03/24/19 11:48 Resp 18 03/24/19 08:00 BP 151/78 03/24/19 08:00 Pulse Ox 96 03/24/19 08:07 Intake & Output 03/23/19 03/24/19 03/24/19 18:59 06:59 18:59 Intake Total 480 780 Output Total 850 2500 900 Balance -370 -2500 -120 Weight 73 kg Intake: Oral 480 780 Output: Urine 850 2500 900 Other: Voiding Method Indwelling Catheter Indwelling Catheter Indwelling Catheter # Voids 1 1 # Bowel Movements 1 1 - Exam GENERAL EXAM: Alert, wasn't, 89-year-old white female, on 10 L per high flow nasal cannula pulse ox of 97% HEAD: Normocephalic/atraumatic. EYES: Normal reaction of pupils, equal size. Conjunctiva pink, sclera white. NOSE: Clear with pink turbinates. THROAT: No erythema or exudates. NECK: No masses, no JVD, no thyroid enlargement, no adenopathy. CHEST: No chest wall deformity. Symmetrical expansion. LUNGS: Equal air entry with diminished breath sounds with bibasilar crackles CVS: Regular rate and rhythm, normal S1 and S2, no gallops, no murmurs, no rubs ABDOMEN: Soft, nontender. No hepatosplenomegaly, normal bowel sounds, no guarding or rigidity. EXTREMITIES: No clubbing, 1+ edema bilateral lower extremities, no cyanosis, 2+ pulses and upper and lower extremities. MUSCULOSKELETAL: Muscle strength and tone normal. SPINE: No scoliosis or deformity SKIN: No rashes CENTRAL NERVOUS SYSTEM: Alert and oriented -3. No focal deficits, tone is normal in all 4 extremities. PSYCHIATRIC: Alert and oriented -3. Appropriate affect. Intact judgment and insight. - Labs CBC & Chem 7: 03/23/19 05:35 03/24/19 06:43 Labs: Abnormal Lab Results - Last 24 Hours (Table) 03/23/19 03/23/19 03/24/19 Range/Units 16:28 20:46 06:31 BUN (7-17) mg/dL Glucose (74-99) mg/dL POC Glucose (mg/dL) 195 H 189 H 260 H (75-99) mg/dL 03/24/19 03/24/19 Range/Units 06:43 11:43 BUN 45 H (7-17) mg/dL Glucose 221 H (74-99) mg/dL POC Glucose (mg/dL) 214 H (75-99) mg/dL Assessment and Plan Plan: Assessment: #1. Acute hypoxemic respiratory failure related to acute exacerbation of congestive heart failure with systolic dysfunction. Chest x-ray showed pulmonary edema, small bilateral pleural effusions #2. Nausea and vomiting at home, dehydration #3. Hypotension related to poor oral intake, nausea and vomiting, fluid resuscitated, with improvement in the blood pressure #4. Episode of unresponsiveness at home, brain CT showed no acute intracranial findings, showed moderate diffuse age-related cerebral atrophy and chronic small vessel ischemic changes #5. Acute kidney injury, likely related to ATN, diuretics, nausea and vomiting #6. Valvular heart disease, severe mitral regurgitation, and moderate aortic stenosis #7. Recent hospitalization for acute exacerbation of CHF and a urinary tract infection #8. Previous episode of GI bleeding #9. History of coronary artery disease with the stenting in November 2017 #10. Diabetes mellitus type 2 #11. Hypertention, hyperlipidemia #12. Previous history of bilateral thoracentesis, in December 2018, with removal of 800 mL from the left and 1300 mL from the right pleural effusion cytology was negative, pleural fluid cultures were negative, and analysis showed transudative fluid consistent with history of congestive heart failure Plan: Continue current plan of treatment, continue IV diuretics, renal profile is improving, fluid volume status improving. Have an episode of chest discomfort last night, will await further recommendations from cardiology in regards to possibility of SALO and heart catheterization. I performed a history & physical examination of the patient and discussed their management with my nurse practitioner, Earline Dumas. I reviewed the nurse practitioner's note and agree with the documented findings and plan of care. Lung sounds are positive for diminished breath sounds with bibasilar crackles. The findings and the impression was discussed with the patient. I attest to the documentation by the nurse practitioner. Time with Patient: Less than 30
[2019-03-24] MEDS ORDERED: FUROSEMIDE 10 MG/ML 4 ML VIAL IV STA (14:26)
--- NOTE | 2019-03-24 14:36 | P.PN ---
Subjective Progress Note Date: 03/24/19 Principal diagnosis: CHF secondary to systolic dysfunction This is a pleasant 89-year-old female patient with a past medical history significant for coronary artery disease, ischemic cardiomyopathy, valvular heart disease, as well as multiple comorbid conditions including diabetes, hypertension, and chronic kidney disease, was admitted to the hospital with congestive heart failure exacerbation secondary to systolic dysfunction. On follow-up with the patient today, 03/24/2019, she was doing good early her today but this afternoon she did have an episode of chest discomfort which was resolved with nitroglycerin sublingual. On examination she does have bilateral rhonchi. I want to give her additional dose of Lasix IV. She continues to be on Lasix IV at 40 mg twice a day. She is feeling better after the sublingual nitroglycerin and also I gave her 5 mg of Lopressor IV. Objective - Vital Signs Vital signs: Vital Signs Temp 97.4 F L 03/24/19 08:00 Pulse 92 03/24/19 11:48 Resp 18 03/24/19 08:00 BP 151/78 03/24/19 08:00 Pulse Ox 96 03/24/19 08:07 Intake & Output 03/23/19 03/24/19 03/24/19 18:59 06:59 18:59 Intake Total 480 780 Output Total 850 2500 900 Balance -370 -2500 -120 Weight 73 kg Intake: Oral 480 780 Output: Urine 850 2500 900 Other: Voiding Method Indwelling Catheter Indwelling Catheter Indwelling Catheter # Voids 1 1 # Bowel Movements 1 1 - Constitutional General appearance: Present: no acute distress - Respiratory Respiratory: bilateral: rales - Cardiovascular Rhythm: regular Heart sounds: normal: S1, S2 - Labs CBC & Chem 7: 03/23/19 05:35 03/24/19 06:43 Labs: Abnormal Lab Results - Last 24 Hours (Table) 03/23/19 03/23/19 03/24/19 Range/Units 16:28 20:46 06:31 BUN (7-17) mg/dL Glucose (74-99) mg/dL POC Glucose (mg/dL) 195 H 189 H 260 H (75-99) mg/dL 03/24/19 03/24/19 Range/Units 06:43 11:43 BUN 45 H (7-17) mg/dL Glucose 221 H (74-99) mg/dL POC Glucose (mg/dL) 214 H (75-99) mg/dL Assessment and Plan Assessment: Assessment #1 change in mental status which has improved #2 congestive heart failure exacerbation secondary to systolic dysfunction #3 chronic kidney disease #4 ischemic cardiomyopathy #5 severe mitral regurgitation #6 moderate aortic stenosis Plan #1 continue the current medical regimen including the IV diuretics #2 give the patient additional dose of Lasix is 40 mg #3 continue monitor the kidney function and electrolytes #4 follow-up with the patient
[2019-03-24 16:45] LABS: Glucose,Whole Blood 210 mg/dL (75-99)
--- NOTE | 2019-03-24 19:32 | PN ---
PROGRESS NOTE Patient is seen for followup for acute kidney injury. Her renal function has improved significantly. Serum creatinine is down to 0.9 mg/dL from peak of 1.72. Last night patient developed respiratory distress and pulmonary edema. She was diuresed and she states she is feeling better. Plan is to perform further assessment of her mitral valve with SALO and cardiac catheterization, possibly during this admission. On examination this morning, patient is comfortable. She is not in any acute distress. Blood pressure was 151/78, heart rate of 92 per minute. She is afebrile. EXAMINATION OF THE HEART: S1 and S2. EXAMINATION OF LUNGS: Bilateral breath sounds are heard. Decreased breath sounds at bases. ABDOMEN: Soft, non-tender. Examination of lower extremities shows no significant edema. [employer]CH[employer] ASSOCIATE exam is grossly intact. Labs show sodium 137, potassium 4.0, chloride 102, BUN 45, serum creatinine 0.94. ASSESSMENT: 1. Acute kidney injury secondary to hypotension and hypoperfusion, currently significantly improved. 2. Volume overload, improved. Patient is maintained on IV Lasix, which I will continue. She did get an extra dose of Lasix last night. Her renal function has improved. We can continue to diurese her. 3. Mitral valve regurgitation with cardiomyopathy. Needs further assessment with SALO versus cardiac catheterization. Okay to proceed with cardiac catheterization, as renal function has improved. 4. Cardiomyopathy. 5. Acute hypoxic respiratory failure secondary to congestive heart failure and volume overload, now improved. 6. Acute on top of chronic congestive heart failure, improving. PLAN: Continue with IV Lasix. Repeat labs in a.m. MMODL / IJN: [id number] /
[2019-03-24 20:45] LABS: Glucose,Whole Blood 163 mg/dL (75-99)
[2019-03-24] MEDS: ALPRAZolam 0.25 MG TAB PO PRN (20:49)
[2019-03-25 06:31] LABS: Glucose,Whole Blood 144 mg/dL (75-99)
[2019-03-25] MEDS: INSULIN ASPART (NovoLOG) 100 UNIT/ML VIAL SQ SCH ×7 (06:46→21:01)
[2019-03-25 06:50] LABS: Basophils % (A) 0 %; Eosinophils # (A) 0.1 k/uL (0-0.7); Eosinophils % (A) 1 %; HCT 35.7 % (34.0-46.0); HGB 11.7 gm/dL (11.4-16.0); Lymphocytes # (A) 1.4 k/uL (1.0-4.8); Lymphocytes % (A) 14 %; MCH 32.4 pg (25.0-35.0); MCHC 32.8 g/dL (31.0-37.0); MCV 98.8 fL (80.0-100.0); Mean Platelet Volume 6.9; Monocytes # (A) 0.7 k/uL (0-1.0); Monocytes % (A) 7 %; Neutrophils # (A) 7.7 k/uL (1.3-7.7); Neutrophils % (A) 77 %; Platelet Count 357 k/uL (150-450); RBC 3.61 m/uL (3.80-5.40); RDW 14.9 % (11.5-15.5); WBC 9.9 k/uL (3.8-10.6)
[2019-03-25 07:18] LABS: Calcium 9.6 mg/dL (8.4-10.2)
--- NOTE | 2019-03-25 07:25 | XR ---
EXAMINATION TYPE: XR chest 1V portable DATE OF EXAM: 03/25/2019 HISTORY: shortness of breath. REFERENCE: Previous study dated 03/23/2019. FINDINGS: There has been a previous ACDF of the lower cervical spine. The heart is mildly enlarged. Bibasilar small, bilateral effusions. IMPRESSION: NO SIGNIFICANT INTERVAL CHANGE IN THE APPEARANCE OF THE CHEST.
[2019-03-25] MEDS: DONEPEZIL 5 MG TAB PO SCH (07:55)
[2019-03-25] MEDS: ATORVASTATIN 40 MG TAB PO SCH (07:55)
[2019-03-25] MEDS: ASPIRIN 81 MG PO SCH (07:55)
[2019-03-25] MEDS: POTASSIUM CHLORIDE ER 20 MEQ TAB.ER PO SCH (07:55)
[2019-03-25] MEDS: predniSONE 20 MG TAB PO SCH (07:55)
[2019-03-25] MEDS: HEPARIN SODIUM,PORCINE 5,000 UNIT/ML 1 ML VIAL SQ SCH ×2 (07:55→21:01)
[2019-03-25] MEDS: FUROSEMIDE 10 MG/ML 4 ML VIAL IV SCH ×2 (07:55→21:00)
[2019-03-25] MEDS: guaiFENesin 600 MG TABLET.ER PO SCH ×2 (07:55→21:01)
[2019-03-25] MEDS: ESCITALOPRAM 10 MG TAB PO SCH (07:55)
[2019-03-25] MEDS: hydrALAZINE HCL 25 MG TAB PO SCH ×3 (07:55→21:01)
[2019-03-25] MEDS: ISOSORBIDE MONONITRATE ER 30 MG TAB.ER.24H PO SCH (07:55)
[2019-03-25] MEDS: FAMOTIDINE 20 MG TAB PO SCH (07:55)
[2019-03-25] MEDS: INSULIN NPH 300 UNIT/3 ML VIAL SQ SCH ×2 (08:05→21:01)
[2019-03-25] MEDS: IPRATROPIUM-ALBUTEROL 3 ML NEB INHALATION PRN ×4 (09:02→19:55)
[2019-03-25 11:24] LABS: Glucose,Whole Blood 197 mg/dL (75-99)
--- NOTE | 2019-03-25 11:44 | P.PN ---
Subjective Progress Note Date: 03/25/19 Principal diagnosis: Acute exacerbation of chronic congestive heart failure This is a 89-year-old female patient of Dr. Sales, with known history of valvular heart disease, severe mitral regurgitation, and moderate aortic stenosis, hypertension, hyperlipidemia, chronic congestive heart failure, previous myocardial infarction with stenting of the LAD in November 2017, type 2 diabetes mellitus, who was recently hospitalized for acute exacerbation of congestive heart failure with systolic dysfunction, and non-ST segment elevated myocardial infarction. Echocardiogram was completed during that admission and showed ejection fraction of 35-40%. Patient was discharged home on 03/15/2019, on oral Lasix of 40 mg twice daily. Patient was brought to the hospital on 03/20/2019 for complaints of worsening shortness of breath, patient woke up out of her sleep and couldn't breathe, was having some chest pain that responded to sublingual nitro, vision also had episode of unresponsiveness at home. Patient had some episodes of emesis at home, did have some chills, but was afebrile. Chest x-ray was completed showing persistent central vascular congestion and bibasilar opacities/bilateral pleural effusions. Patient did have some hypotension, apparently she was a bit dehydrated from vomiting. Did have some abdominal discomfort across the upper abdomen, but abdomen is soft, no diarrhea. She was given the a liter bolus in the emergency department, she was in significant respiratory distress, and blood gas was obtained showing pO2 of 73, pCO2 of 39, pH of 7.41 this was done on FiO2 100%, patient was placed on BiPAP support. She was started on IV diuretics, antibiotics, breathing treatments. Labs did not show any evidence of leukocytosis, admission labs showed a white blood cell count of 10.4, hemoglobin of 10.1, electrolytes are within normal limits, BUN is 29 creatinine was 1.1 and renal profile has increased on today's labs, with B1 up to 42 and creatinine of 1.6. Her BNP was 12,400, troponin was negative at 0.021. Urinalysis was negative, and urine drug screen was negative. During my exam patient is seen still on BiPAP, but she has been able to tolera te periods on the high flow nasal cannula, she has 1+ pitting edema in lower extremities, lung sounds reveal diminished breath sounds bilaterally with fine rales at the bases. No further episodes of nausea and vomiting. No complaints of chest pain, cardiology is following, EKG showed a sinus rhythm with left bundle branch block and nonspecific STT wave changes On 03/22/2019 patient seen in follow-up on selective care unit, she is currently off BiPAP, she did wear it through the night, he is currently on 15 L of oxygen per high flow nasal cannula and her pulse ox is 88-89%, she is afebrile, she denies any chest pain, she is diuresing, her lower extremity edema is improving, lung sounds are positive for MRSA breath sounds with rales at the bases, she states she is dyspneic on today's exam, follow-up chest x-ray was obtained today shows bilateral infiltrates and pleural effusions, relatively stable, maybe slightly progressed. In negative fluid balance. Today's labs have been reviewe d, and showed no leukocytosis, with blood cell count is 8.7, hemoglobin is 9.7, sodium is 136, potassium is 4.4, chloride is 105, CO2 is 20, B1 is 55 and creatinine is 1.72, and renal profile is slightly worse on on today's labs. She remains on IV Lasix at 40 mg every 12 hours, she is on breathing treatments and IV steroids. On 03/23/2019 patient seen in follow-up on selective care unit. She is awake and alert, sitting up in the recliner, her oxygenation is improving, she remains on 15 L high flow oxygen with pulse ox of 94%, she says she is less dyspneic, in lower extremity edema is improving, follow-up chest x-ray from yesterday was reviewed, and showed bilateral infiltrates and pleural effusions related to history of CHF. She remains on IV Lasix at 40 mg every 12 hours, and today's lab work shows a woman of her renal profile with BUN at 52 and creatinine of 1.29. Patient is in -3400 cc fluid balance. Denies any chest pain, hemodynamics remained stable, no fever or chills, cardiology is considering possibility of transesophageal echocardiogram for evaluation of mitral valve d isease, and aortic valve stenosis. There is a possibility of heart catheterization once her fluid that is improved, her respiratory status stabilizes. On 03/24/2019 patient seen in follow-up on the selective care unit. Patient apparently had episode of chest discomfort last night, increased shortness of breath, stat chest x-ray was obtained showing changes of fluid overload, congestive heart failure which was actually slightly improved from the previous chest x-ray, nevertheless patient was given an extra dose of IV Lasix, and subsequently her breathing had improved. On today's exam she is sitting up in the recliner, currently on 2 L per high flow nasal cannula, lung sounds reveal fine bibasilar crackles, no rhonchi or wheezes, no complaints of chest pain. Vital signs are stable, today's lab work has been reviewed showing electrolytes within normal limits, and further improvement in patient's renal profile with BUN of 45 and creatinine of 0.94. No fever, no chills, patient remains on IV diuretics, and breathing treatments, will await further recommendations from cardiology. The patient is seen today 03/25/2019 in follow-up on the selective care unit. She is currently awake and alert in no acute distress. Resting quite comfortably in bed. She is still requiring 10 L high flow nasal cannula to maintain O2 saturations in the 90s. She's been afebrile. Hemodynamically s table. White count 9.9. Hemoglobin 11.7. Creatinine 0.92. She continues to diurese well. She remains on Lasix 40 mg IV every 12 hours. Objective - Vital Signs Vital signs: Vital Signs Temp 97.3 F L 03/25/19 11:39 Pulse 98 03/25/19 11:39 Resp 20 03/25/19 11:39 BP 149/65 03/25/19 11:39 Pulse Ox 97 03/25/19 11:39 Intake & Output 03/24/19 03/25/19 03/25/19 18:59 06:59 18:59 Intake Total 1002 240 Output Total 900 975 Balance 102 -975 240 Weight 69.9 kg Intake: Oral 1002 240 Output: Urine 900 975 Other: Voiding Method Indwelling Catheter Indwelling Catheter Indwelling Catheter # Voids 1 - Exam GENERAL EXAM: Alert, wasn't, 89-year-old female, on 10 L per high flow nasal cannula HEAD: Normocephalic/atraumatic. EYES: Normal reaction of pupils, equal size. Conjunctiva pink, sclera white. NOSE: Clear with pink turbinates. THROAT: No erythema or exudates. NECK: No masses, no JVD, no thyroid enlargement, no adenopathy. CHEST: No chest wall deformity. Symmetrical expansion. LUNGS: Equal air entry with diminished breath sounds with bibasilar crackles CVS: Regular rate and rhythm, normal S1 and S2, no gallops, no murmurs, no rubs ABDOMEN: Soft, nontender. No hepatosplenomegaly, normal bowel sounds, no guard ing or rigidity. EXTREMITIES: No clubbing, 1+ edema bilateral lower extremities, no cyanosis, 2+ pulses and upper and lower extremities. MUSCULOSKELETAL: Muscle strength and tone normal. SPINE: No scoliosis or deformity SKIN: No rashes CENTRAL NERVOUS SYSTEM: No focal deficits, tone is normal in all 4 extremities. PSYCHIATRIC: Alert and oriented -3. Appropriate affect. Intact judgment and insight. - Labs CBC & Chem 7: 03/25/19 06:05 03/25/19 06:05 Labs: Abnormal Lab Results - Last 24 Hours (Table) 03/24/19 03/24/19 03/24/19 Range/Units 11:43 16:44 20:43 RBC (3.80-5.40) m/uL BUN (7-17) mg/dL Glucose (74-99) mg/dL POC Glucose (mg/dL) 214 H 210 H 163 H (75-99) mg/dL 03/25/19 03/25/19 03/25/19 Range/Units 06:05 06:05 06:30 RBC 3.61 L (3.80-5.40) m/uL BUN 38 H (7-17) mg/dL Glucose 134 H (74-99) mg/dL POC Glucose (mg/dL) 144 H (75-99) mg/dL 03/25/19 Range/Units 11:23 RBC (3.80-5.40) m/uL BUN (7-17) mg/dL Glucose (74-99) mg/dL POC Glucose (mg/dL) 197 H (75-99) mg/dL Assessment and Plan Assessment: Assessment: #1. Acute hypoxemic respiratory failure related to acute exacerbation of congestive heart failure with systolic dysfunction. Chest x-ray showed pulmonary edema, small bilateral pleural effusions #2. Nausea and vomiting at home, dehydration #3. Hypotension related to poor oral intake, nausea and vomiting, fluid resuscitated, with improvement in the blood pressure #4. Episode of unresponsiveness at home, brain CT showed no acute intracranial findings, showed moderate diffuse age-related cerebral atrophy and chronic small vessel ischemic changes #5. Acute kidney injury, likely related to ATN, diuretics, nausea and vomiting #6. Valvular heart disease, severe mitral regurgitation, and moderate aortic stenosis #7. Recent hospitalization for acute exacerbation of CHF and a urinary tract infection #8. Previous episode of GI bleeding #9. History of coronary artery disease with the stenting in November 2017 #10. Diabetes mellitus type 2 #11. Hypertention, hyperlipidemia #12. Previous history of bilateral thoracentesis, in December 2018, with removal of 800 mL from the left and 1300 mL from the right pleural effusion cytology was negative, pleural fluid cultures were negative, and analysis showed transudative fluid consistent with history of congestive heart failure Plan: The patient was seen and evaluated by Dr. Arellano. Chest x-ray and labs reviewed. We'll continue the current treatment plan. Increase her activity as tolerated. Titrate down the FiO2 as tolerated. We'll continue to follow. I, the cosigning physician, performed a history & physical examination of the patient. Lungs sounds with crackles in the bilateral posterior bases. Maintaining good O2 saturations in the 90s on 10 L high flow nasal cannula. I discussed the assessment and plan of care with my nurse practitioner, Emma gatica. I attest to the above note as dictated by her.
--- NOTE | 2019-03-25 12:42 | P.PN ---
Subjective Progress Note Date: 03/25/19 This is a pleasant 89-year-old female with history of severe mitral regurgitation, moderate aortic stenosis, systolic congestive heart failure, hypertension, chronic kidney disease stage III, diabetes, hyperlipidemia, coronary artery disease, who has had several recent admissions to the hospital. On this occasion patient was brought to the hospital, because her family found her unresponsive. After arrival to the emergency room, patient did become alert and oriented 3. CT of the brain was performed which was negative for any new strokes. Venous blood gas was unremarkable. White blood cell count 10.4 on admission 8.4 this morning, hemoglobin 10.7, platelet count 370. Sodium 138, potassium 4.8, BUN on admission 29 and creatinine 1.1, this morning 42 and 1.6. Troponin 0.021. BNP level 12,400. Drug screen was negative. Urinalysis negative. Chest x-ray on admission showed findings consistent with CHF exacerbation. Bilateral pleural effusions. EKG shows normal sinus rhythm with first-degree AV block and nonspecific ST-T wave changes. Blood pressure on arrival here 80/40, heart rate in the 60s, 96% on 6 L of oxygen. Let pressure this morning 108/60 heart rate in the 70s, she's 93% on 70% BiPAP. At the time of my examination this morning, the patient is sitting up in her chair at bedside, she did put out good urine through the night last night, appears to be alert and oriented 2. States that she does feel that her breathing is improving however still complains of feeling somewhat short of breath. 03/23/2019 Patient was seen and examined this morning, she sitting up in the chair at bedside. Diuresing well. Breathing is improved significantly. Blood pressure 134/60 with a heart rate in the 80s, 98% on 10 L of oxygen. Blood cell count 7.3, hemoglobin 10.6, platelet count 276. Sodium 134, potassium 4.1, BUN 52 and creatinine 1.2. I had a lengthy discussion with the patient and her daughter today, the daughter is quite insistent that the patient not be discharged home, with the fear for returning back in congestive heart failure. Dr. Jo also had a discussion with the daughter, explaining that a cardiac catheterization as well as SALO will need to be performed on the patient prior to her having an evaluation by a surgeon at an external facility for possible valve procedures. At this point in time we will continue current dose of IV Lasix. 03/25/2019 Patient seen and examined this morning. She feels well, states that her day was difficult yesterday with shortness of breath but today feeling significantly better. Blood pressure 148/60 with a heart rate of 90, 97% on 10 L high flow. White blood cell count 9.9, hemoglobin 11.7, platelet count 357. Sodium 140, potassium 4.0, BUN 38 and creatinine 0.9. She continues to be on 40 mg of Lasix IV twice a day. Chest x-ray was performed this morning which did not reveal any significant change. Objective - Vital Signs Vital signs: Vital Signs Temp 97.3 F L 03/25/19 11:39 Pulse 100 03/25/19 12:15 Resp 20 03/25/19 12:00 BP 149/65 03/25/19 11:39 Pulse Ox 97 03/25/19 11:39 Intake & Output 03/24/19 03/25/19 03/25/19 18:59 06:59 18:59 Intake Total 1002 240 Output Total 900 975 Balance 102 -975 240 Weight 69.9 kg Intake: Oral 1002 240 Output: Urine 900 975 Other: Voiding Method Indwelling Catheter Indwelling Catheter Indwelling Catheter # Voids 1 - Exam PHYSICAL EXAMINATION: GENERAL: 89-year-old female in no acute distress at the time of my examination HEENT: Head is atraumatic, normocephalic. Pupils equal, round. Sclera anicteric. Conjunctiva are clear. Mucous membranes of the mouth are moist. Neck is supple. There is no elevated jugular venous pressure. No carotid bruit is heard. HEART EXAMINATION: R S1 and S2 systolic ejection murmur is heard CHEST EXAMINATION: Lungs reveal crackles bilaterally with some improvement in air entry to the bases. ABDOMEN: Soft, nontender. Bowel sounds are heard. No organomegaly noted. EXTREMITIES: 2+ peripheral pulses with no evidence of peripheral edema and no calf tenderness noted. NEUROLOGIC patient is awake, alert and oriented 2 . - Labs CBC & Chem 7: 03/25/19 06:05 03/25/19 06:05 Labs: Abnormal Lab Results - Last 24 Hours (Table) 03/24/19 03/24/19 03/25/19 Range/Units 16:44 20:43 06:05 RBC (3.80-5.40) m/uL BUN 38 H (7-17) mg/dL Glucose 134 H (74-99) mg/dL POC Glucose (mg/dL) 210 H 163 H (75-99) mg/dL 03/25/19 03/25/19 03/25/19 Range/Units 06:05 06:30 11:23 RBC 3.61 L (3.80-5.40) m/uL BUN (7-17) mg/dL Glucose (74-99) mg/dL POC Glucose (mg/dL) 144 H 197 H (75-99) mg/dL Assessment and Plan Plan: Assessment and plan #1 episode of unresponsiveness, CT of the brain did not reveal any evidence of acute stroke, could be secondary to hypotension, blood pressure on arrival 80/60 #2 systolic congestive heart failure acute on chronic #3 hypertension #4 chronic kidney disease stage III #5 diabetes #6 Alzheimer's disease #7 hyperlipidemia #8 severe mitral regurgitation with moderate aortic stenosis Plan Continue IV Lasix as per nephrology. Lytes BUN and creatinine in the morning. DNP note has been reviewed, I agree with a documented findings and plan of care. Patient was seen and examined.
--- NOTE | 2019-03-25 12:49 | P.PN ---
Subjective Progress Note Date: 03/25/19 89-year-old female one of Dr. Sales discharge on 03/15 with past medical history of systolic congestive heart failure, severe mitral regurgitation, moderate aortic stenosis, hypertension, chronic kidney disease stage III, type 2 diabetes, memory loss mostly is examined disease, known coronary artery disease, recurrent depression, hyperlipidemia who was just discharged a week ago after being treated for CHF exacerbation and NSTEMI. According to the daughter bedside patient became nonverbal and unresponsive and was brought to the ER. On evaluation in the ER patient was only responsive to painful stimulus. Within few minutes patient recovered and was oriented 3. Brain CT was negative for any new strokes. Venous blood gas was unremarkable. Labs ordered suggestive of hemoglobin of 10.1 stable as compared to the previous labs, BUN/creatinine 29 and creatinine 1.1, glucose 220 6B UN 29, BNP 12,400, troponin 0.021. Echo obtained during last admission suggest EF of 35-40% with apical inferior lateral hypokinesia. Cardiology and and pulmonary was consulted. Chest x-ray suggestive of pulmonary venous congestion and cardiomegaly. The daughter bedside and was not relating to give Lasix to the patient. On evaluation in the ER patient was currently on 6 L of oxygen saturating well but very short of breath trying to catch her breath on 6 L with symptoms positive for paroxysmal nocturnal dyspnea, orthopnea with bilateral lower extremity edema, no fever no chills no cough production. White is obtained suggest night temp of 98.6, pulse 82 respiratory rate 20 blood pressure 146/72 saturating at 91% On 6 L spelled since patient was short of breath on 6 L patient was switched to a nonrebreather and will be monitored overnight in the ICU 03/21: Patient is seen on the cardiac stepdown unit. She has been seen by cardiology with recommendations to resume her home diuretics and stop the IV Lasix, gradually resume beta giselle and consider adding Aldactone. Norvasc was discontinued. Patient has been afebrile, heart rate in the 70s, blood pressure 107/63, patient was on BiPAP and currently on nasal cannula high flow at 9 L. Repeat lab work reveals white count is 8.4, hemoglobin 10.7. Renal function has increased with a BUN of 42 and creatinine 1.68. Blood sugars are running between 181 and 210. The patient continues to have wheezing we will decrease her Solu-Medrol to 40 mg every 8 hours. Breathing is improved from yesterday. She denies having any abdominal pain. She is complaining of some left-sided chest pain that is tender to palpation. She denies any palpitations. She has a Sunshine catheter in place and diuresing well. Weight is down 3 kg. 03/22: The patient has been afebrile, heart rate in the 80s and 90s, blood pressure 120/48, patient is currently on high flow nasal cannula at 15 L pulse oxing 88-90%. WBC 8.7, hemoglobin 9.7. Sodium 136, potassium 4.4, chloride 105, CO2 20, BUN 55 and creatinine 1.7 to. Blood sugar this morning was 216. Solu-Medrol has been decreased to 40 every 12 hours by pulmonary medicine. Patient to use BiPAP as needed. Patient is also seen and followed by Dr. Farmer and Lasix was changed to IV. She is currently on IV Lasix 40 mg every 12 hours. Discussed CODE STATUS with the patient in depth and she wishes to be a full code and intubated if necessary. Patient's prognosis is poor. Patient and daughter to talk with cardiology regarding options regarding surgery and heart catheterization. Patient does not appear to be a surgical candidate and prognosis is poor. 03/23: Patient is afebrile, heart rate in the 90s, blood pressure 132/63, pulse ox 94% on 15 L nasal cannula. WBC is 11.3, hemoglobin 10.6. Sodium 134, potassium 5.1, chloride 105, CO2 21, BUN 52 and creatinine 1.29, blood sugars running be tween 128 and 221. Repeat chest x-ray reveals bilateral infiltrate and pleural effusions correlate for heart failure. Patient states that her breathing is improved today. She has no pedal edema. Sunshine catheter is draining clear shiv urine. Oxygen time of eval is down 8 L. She is currently on Solu-Medrol at 40 mg every 12 hours and IV Lasix 40 mg every 12. 03/24: The patient developed flash pulmonary edema yesterday and chest pain and was started on nitroglycerin sublingual and received extra dose of Lasix. She was also placed on BiPAP overnight. She is currently on 10 L high flow nasal cannula and pulse oxing 96%. Cardiology is planning for heart catheterization and SALO on Wednesday. Patient is continued on IV Lasix 40 mg twice daily. She has been afebrile, heart rate in the 90s. Blood sugars have been elevated at 189- 260 and patient was started last evening on NovoLog scheduled with meals and NPH 10 units twice daily. Patient's daughter is at the bedside and has been updat ed. 03/25: Patient is sitting up in bed resting comfortably today without any complaints or concerns. She is awake alert and in no acute distress. She is still requiring 10 L of high flow nasal cannula to maintain O2 saturations in the 90s. Patient continues to be afebrile. Hemodynamically stable. W BC 9.9, hemoglobin 11.7. BUN has improved to 38, creatinine 0.92, GFR 56. Patient continues to be on IV Lasix 40 mg twice a day. Review Of Systems: Constitutional: No fever, no chills, no night sweats. No weight change. No weakness, fatigue or lethargy. No daytime sleepiness. EENT: No headache. No blurred vision or double vision, no loss of vision. No loss of Hearing, no ringing in the ears, no dizziness. No nasal drainage or congestion. No epistaxis. No sore throat. Lungs: Reports decreased exercise tolerance, reports dyspnea, uses 2-3 L home oxygen No cough, no sputum production. No wheezing. Cardiovascular: No chest pain, reports lower extremity edema. No palpitations. No paroxysmal nocturnal dyspnea. No orthopnea. No lightheadedness or dizziness. No syncopal episodes. Abdominal: no abdominal discomfort. No nausea, vomiting. no diarrhea. No constipation. No bloody or tarry stools. improved loss of appetite. Genitourinary: No dysuria, increased frequency, urgency. No urinary retention. Musculoskeletal: No myalgias. No muscle weakness, no gait dysfunction, no frequent falls. No back pain. No neck pain. Integumentary: No wounds, no lesions. No rash or pruritus. No unusual bruising. No change in hair or nails. Neurologic: No aphasia. No facial droop. No change in mentation. No head injury. No headache. No paralysis. No paresthesia. Psychiatric: No depression. No anxiety. No mood swings. Endocrine: No abnormal blood sugars. No weight change. No excessive sweating or thirst. Objective - Vital Signs Vital signs: Vital Signs Temp 97.3 F L 03/25/19 11:39 Pulse 100 03/25/19 12:15 Resp 20 03/25/19 12:00 BP 149/65 03/25/19 11:39 Pulse Ox 97 03/25/19 11:39 Intake & Output 03/24/19 03/25/19 03/25/19 18:59 06:59 18:59 Intake Total 1002 240 Output Total 900 975 Balance 102 -975 240 Weight 69.9 kg Intake: Oral 1002 240 Output: Urine 900 975 Other: Voiding Method Indwelling Catheter Indwelling Catheter Indwelling Catheter # Voids 1 - Exam General Appearance: Alert, cooperative, no distress, appears stated age. Neck HEENT: Supple, no lymphadenopathy, no thyroid enlargement, no carotid bruits. Lungs: Diminished at bases crackles throughout, No wheezes no rhonchi, no deformity. Chest Wall: Chest wall normal expansion no tenderness and no deformity was found on exam, no costochondral pain or discomfort. Heart: Regular rate and rhythm, S1, S2 normal, no murmur, rub or gallop. Back: Symmetric, no curvature, ROM normal, no CVA tenderness. Abdomen: Soft, non-tender, no rebound or rigidity, no hepatosplenomegaly. Extremities: Extremities normal, atraumatic, no cyanosis or edema. Pulses: 2+ and symmetric. Skin: Skin color, texture, tugor normal, no rashes or lesions. Neurologic: Alert oriented x3 cranial nerves II through XII intact, no motor deficit, - Labs CBC & Chem 7: 03/25/19 06:05 03/25/19 06:05 Labs: Abnormal Lab Results - Last 24 Hours (Table) 03/24/19 03/24/19 03/25/19 Range/Units 16:44 20:43 06:05 RBC (3.80-5.40) m/uL BUN 38 H (7-17) mg/dL Glucose 134 H (74-99) mg/dL POC Glucose (mg/dL) 210 H 163 H (75-99) mg/dL 03/25/19 03/25/19 03/25/19 Range/Units 06:05 06:30 11:23 RBC 3.61 L (3.80-5.40) m/uL BUN (7-17) mg/dL Glucose (74-99) mg/dL POC Glucose (mg/dL) 144 H 197 H (75-99) mg/dL Assessment and Plan Plan: 1 acute on chronic hypoxic respiratory failure secondary to acute on chronic systolic heart failure, moderate aortic stenosis, severe mitral regurgitation, bilateral pleural effusions. Cardiology consult appreciated. Continue on IV Lasix 40 mg twice daily. Continue Ranexa 1000 mg twice daily, Imdur 30 mg d aily. I&O and daily weights. Monitor renal function and electrolytes. Renal function has improved. Heart catheterization and SALO on Wednesday. 2 acute on chronic hypoxic respiratory failure. Home oxygen is up to 4 L. Patient is currently on nasal cannula at 10 L. 3 bilateral pleural effusion: No need for thoracentesis. 4 hypertension. Norvasc discontinued. Continue hydralazine 25 mg 3 times daily, Imdur 30 mg daily, Lopressor is currently on hold. 5 chronic kidney disease stage 3. Nephrology consult. 6 type 2 diabetes. Continue NovoLog scale before meals and at bedtime, hold Tradjenta. 7 non-ST segment elevation myocardial infarction on previous admission. Continue aspirin 81 mg daily, Lipitor, beta giselle to be resumed slowly per cardiology. 8 history of coronary artery disease. 9. memory loss: Most likely Alzheimer disease, patient remain on galantamine 4 mg twice a day, Aricept 5 mg daily. 10 hyperlipidemia: Remain on Lipitor 40 mg daily. 11 recurrent depression: Patient has been on Lexapro 10 mg a day. DVT prophylaxis with heparin every 12. GI prophylaxis. Pepcid 20 mg daily. Discharge plan: Most likely home [facility] Impression and plan of care have been directed as dictated by the signing physician. Netta Owens nurse practitioner acting as scribe for signing physician.
[2019-03-25 16:19] LABS: Glucose,Whole Blood 208 mg/dL (75-99)
--- NOTE | 2019-03-25 17:49 | PN ---
PROGRESS NOTE Patient is seen for followup for acute kidney injury. This morning, patient is sitting up in bed. She is comfortable. She denies any significant complaints. She is being diuresed, maintained on Lasix 40 mg IV q.12 hours. Weight is down since admission significantly at 69.9 from 77 kg on initial admission. PHYSICAL EXAMINATION: On examination this morning, blood pressure was 149/72, heart rate of 100 per minute. She is afebrile. EXAMINATION OF THE HEART: S1, S2. EXAMINATION OF THE LUNGS: Bilateral breath sounds are heard. Abdomen is soft, nontender. Examination of the lower extremities shows no significant edema. CONVEYOR MONITOR exam is grossly intact. LABS: Labs show sodium 140, potassium 4.0, BUN 38, serum creatinine 0.92. ASSESSMENT: 1. Acute kidney injury secondary to hypotension and hypoperfusion, currently resolved. 2. Congestive heart failure, acute on top of chronic systolic, currently improving. 3. Volume overload, improved since admission. Continue with the IV Lasix for now. Renal function is stable, in fact improved. 4. Mitral valve regurgitation. Awaiting further testing including SALO and cardiac catheterization. Okay to proceed with cardiac cath if indicated. PLAN: Continue with IV Lasix. Repeat labs in a.m. MMODL / IJN: [id number] /
[2019-03-25 20:45] LABS: Glucose,Whole Blood 149 mg/dL (75-99)
[2019-03-25] MEDS: ALPRAZolam 0.25 MG TAB PO PRN (21:02)
[2019-03-26 06:31] LABS: Glucose,Whole Blood 126 mg/dL (75-99)
[2019-03-26] MEDS: INSULIN ASPART (NovoLOG) 100 UNIT/ML VIAL SQ SCH ×7 (06:40→21:54)
[2019-03-26 07:07] LABS: Calcium 9.2 mg/dL (8.4-10.2); Potassium 3.6 mmol/L (3.5-5.1)
[2019-03-26] MEDS: IPRATROPIUM-ALBUTEROL 3 ML NEB INHALATION PRN ×3 (08:15→20:34)
[2019-03-26] MEDS: guaiFENesin 600 MG TABLET.ER PO SCH ×2 (08:24→21:54)
[2019-03-26] MEDS: predniSONE 20 MG TAB PO SCH (08:24)
[2019-03-26] MEDS: HEPARIN SODIUM,PORCINE 5,000 UNIT/ML 1 ML VIAL SQ SCH ×2 (08:24→21:54)
[2019-03-26] MEDS: ISOSORBIDE MONONITRATE ER 30 MG TAB.ER.24H PO SCH (08:24)
[2019-03-26] MEDS: ATORVASTATIN 40 MG TAB PO SCH (08:24)
[2019-03-26] MEDS: FAMOTIDINE 20 MG TAB PO SCH (08:24)
[2019-03-26] MEDS: hydrALAZINE HCL 25 MG TAB PO SCH ×3 (08:24→21:54)
[2019-03-26] MEDS: ESCITALOPRAM 10 MG TAB PO SCH (08:24)
[2019-03-26] MEDS: FUROSEMIDE 10 MG/ML 4 ML VIAL IV SCH ×2 (08:24→21:53)
[2019-03-26] MEDS: ASPIRIN 81 MG PO SCH (08:24)
[2019-03-26] MEDS: DONEPEZIL 5 MG TAB PO SCH (08:24)
[2019-03-26] MEDS: POTASSIUM CHLORIDE ER 20 MEQ TAB.ER PO SCH (08:24)
[2019-03-26] MEDS: INSULIN NPH 300 UNIT/3 ML VIAL SQ SCH ×2 (08:25→22:01)
--- NOTE | 2019-03-26 10:07 | P.PN ---
Subjective Progress Note Date: 03/26/19 This is a pleasant 89-year-old female with history of severe mitral regurgitation, moderate aortic stenosis, systolic congestive heart failure, hypertension, chronic kidney disease stage III, diabetes, hyperlipidemia, coronary artery disease, who has had several recent admissions to the hospital. On this occasion patient was brought to the hospital, because her family found her unresponsive. After arrival to the emergency room, patient did become alert and oriented 3. CT of the brain was performed which was negative for any new strokes. Venous blood gas was unremarkable. White blood cell count 10.4 on admission 8.4 this morning, hemoglobin 10.7, platelet count 370. Sodium 138, potassium 4.8, BUN on admission 29 and creatinine 1.1, this morning 42 and 1.6. Troponin 0.021. BNP level 12,400. Drug screen was negative. Urinalysis negative. Chest x-ray on admission showed findings consistent with CHF exacerbation. Bilateral pleural effusions. EKG shows normal sinus rhythm with first-degree AV block and nonspecific ST-T wave changes. Blood pressure on arrival here 80/40, heart rate in the 60s, 96% on 6 L of oxygen. Let pressure this morning 108/60 heart rate in the 70s, she's 93% on 70% BiPAP. At the time of my examination this morning, the patient is sitting up in her chair at bedside, she did put out good urine through the night last night, appears to be alert and oriented 2. States that she does feel that her breathing is improving however still complains of feeling somewhat short of breath. 03/23/2019 Patient was seen and examined this morning, she sitting up in the chair at bedside. Diuresing well. Breathing is improved significantly. Blood pressure 134/60 with a heart rate in the 80s, 98% on 10 L of oxygen. Blood cell count 7.3, hemoglobin 10.6, platelet count 276. Sodium 134, potassium 4.1, BUN 52 and creatinine 1.2. I had a lengthy discussion with the patient and her daughter today, the daughter is quite insistent that the patient not be discharged home, with the fear for returning back in congestive heart failure. Dr. Jo also had a discussion with the daughter, explaining that a cardiac catheterization as well as SALO will need to be performed on the patient prior to her having an evaluation by a surgeon at an external facility for possible valve procedures. At this point in time we will continue current dose of IV Lasix. 03/25/2019 Patient seen and examined this morning. She feels well, states that her day was difficult yesterday with shortness of breath but today feeling significantly better. Blood pressure 148/60 with a heart rate of 90, 97% on 10 L high flow. White blood cell count 9.9, hemoglobin 11.7, platelet count 357. Sodium 140, potassium 4.0, BUN 38 and creatinine 0.9. She continues to be on 40 mg of Lasix IV twice a day. Chest x-ray was performed this morning which did not reveal any significant change. 03/26/2019 Patient was seen and examined this morning, family at bedside. Sitting up in the chair feeling well today. She slept well through the night last night. Her weight today is down 1 kg. Blood pressure 142/70 with a heart rate in the 90s, 98% on 4 L high flow. Sodium 139, potassium 3.6, BUN 33 and creatinine 0.8. Objective - Vital Signs Vital signs: Vital Signs Temp 97.7 F 03/26/19 08:00 Pulse 96 03/26/19 08:29 Resp 18 03/26/19 08:00 BP 142/77 03/26/19 08:00 Pulse Ox 98 03/26/19 08:00 Intake & Output 03/25/19 03/26/19 03/26/19 18:59 06:59 18:59 Intake Total 462 Output Total 1900 Balance 462 -1900 Weight 68.2 kg Intake: Oral 462 Output: Urine 1900 Other: Voiding Method Indwelling Catheter Indwelling Catheter Indwelling Catheter # Bowel Movements 1 - Exam PHYSICAL EXAMINATION: GENERAL: 89-year-old female in no acute distress at the time of my examination HEENT: Head is atraumatic, normocephalic. Pupils equal, round. Sclera anicteric. Conjunctiva are clear. Mucous membranes of the mouth are moist. Neck is supple. There is no elevated jugular venous pressure. No carotid bruit is heard. HEART EXAMINATION: Heart S1 and S2 systolic ejection murmur is heard CHEST EXAMINATION: Lungs reveal crackles bilaterally with some improvement in air entry to the bases. ABDOMEN: Soft, nontender. Bowel sounds are heard. No organomegaly noted. EXTREMITIES: 2+ peripheral pulses with no evidence of peripheral edema and no calf tenderness noted. NEUROLOGIC patient is awake, alert and oriented 2 . - Labs CBC & Chem 7: 03/25/19 06:05 03/26/19 05:43 Labs: Abnormal Lab Results - Last 24 Hours (Table) 03/25/19 03/25/19 03/25/19 Range/Units 11:23 16:18 20:43 Carbon Dioxide (22-30) mmol/L BUN (7-17) mg/dL Glucose (74-99) mg/dL POC Glucose (mg/dL) 197 H 208 H 149 H (75-99) mg/dL 03/26/19 03/26/19 Range/Units 05:43 06:29 Carbon Dioxide 33 H (22-30) mmol/L BUN 33 H (7-17) mg/dL Glucose 116 H (74-99) mg/dL POC Glucose (mg/dL) 126 H (75-99) mg/dL Assessment and Plan Plan: Assessment and plan #1 episode of unresponsiveness, CT of the brain did not reveal any evidence of acute stroke, could be secondary to hypotension, blood pressure on arrival 80/60 #2 systolic congestive heart failure acute on chronic #3 hypertension #4 chronic kidney disease stage III #5 diabetes #6 Alzheimer's disease #7 hyperlipidemia #8 severe mitral regurgitation with moderate aortic stenosis Plan Continue IV Lasix as per nephrology. Lytes BUN and creatinine in the morning. DNP note has been reviewed, I agree with a documented findings and plan of care. Patient was seen and examined.
--- NOTE | 2019-03-26 10:49 | P.PN ---
Subjective Progress Note Date: 03/26/19 Principal diagnosis: Acute exacerbation of chronic congestive heart failure This is a 89-year-old female patient of Dr. Sales, with known history of valvular heart disease, severe mitral regurgitation, and moderate aortic stenosis, hypertension, hyperlipidemia, chronic congestive heart failure, previous myocardial infarction with stenting of the LAD in November 2017, type 2 diabetes mellitus, who was recently hospitalized for acute exacerbation of congestive heart failure with systolic dysfunction, and non-ST segment elevated myocardial infarction. Echocardiogram was completed during that admission and showed ejection fraction of 35-40%. Patient was discharged home on 03/15/2019, on oral Lasix of 40 mg twice daily. Patient was brought to the hospital on 03/20/2019 for complaints of worsening shortness of breath, patient woke up out of her sleep and couldn't breathe, was having some chest pain that responded to sublingual nitro, vision also had episode of unresponsiveness at home. Patient had some episodes of emesis at home, did have some chills, but was afebrile. Chest x-ray was completed showing persistent central vascular congestion and bibasilar opacities/bilateral pleural effusions. Patient did have some hypotension, apparently she was a bit dehydrated from vomiting. Did have some abdominal discomfort across the upper abdomen, but abdomen is soft, no diarrhea. She was given the a liter bolus in the emergency department, she was in significant respiratory distress, and blood gas was obtained showing pO2 of 73, pCO2 of 39, pH of 7.41 this was done on FiO2 100%, patient was placed on BiPAP support. She was started on IV diuretics, antibiotics, breathing treatments. Labs did not show any evidence of leukocytosis, admission labs showed a white blood cell count of 10.4, hemoglobin of 10.1, electrolytes are within normal limits, BUN is 29 creatinine was 1.1 and renal profile has increased on today's labs, with B1 up to 42 and creatinine of 1.6. Her BNP was 12,400, troponin was negative at 0.021. Urinalysis was negative, and urine drug screen was negative. During my exam patient is seen still on BiPAP, but she has been able to tolera te periods on the high flow nasal cannula, she has 1+ pitting edema in lower extremities, lung sounds reveal diminished breath sounds bilaterally with fine rales at the bases. No further episodes of nausea and vomiting. No complaints of chest pain, cardiology is following, EKG showed a sinus rhythm with left bundle branch block and nonspecific STT wave changes On 03/22/2019 patient seen in follow-up on selective care unit, she is currently off BiPAP, she did wear it through the night, he is currently on 15 L of oxygen per high flow nasal cannula and her pulse ox is 88-89%, she is afebrile, she denies any chest pain, she is diuresing, her lower extremity edema is improving, lung sounds are positive for MRSA breath sounds with rales at the bases, she states she is dyspneic on today's exam, follow-up chest x-ray was obtained today shows bilateral infiltrates and pleural effusions, relatively stable, maybe slightly progressed. In negative fluid balance. Today's labs have been reviewe d, and showed no leukocytosis, with blood cell count is 8.7, hemoglobin is 9.7, sodium is 136, potassium is 4.4, chloride is 105, CO2 is 20, B1 is 55 and creatinine is 1.72, and renal profile is slightly worse on on today's labs. She remains on IV Lasix at 40 mg every 12 hours, she is on breathing treatments and IV steroids. On 03/23/2019 patient seen in follow-up on selective care unit. She is awake and alert, sitting up in the recliner, her oxygenation is improving, she remains on 15 L high flow oxygen with pulse ox of 94%, she says she is less dyspneic, in lower extremity edema is improving, follow-up chest x-ray from yesterday was reviewed, and showed bilateral infiltrates and pleural effusions related to history of CHF. She remains on IV Lasix at 40 mg every 12 hours, and today's lab work shows a woman of her renal profile with BUN at 52 and creatinine of 1.29. Patient is in -3400 cc fluid balance. Denies any chest pain, hemodynamics remained stable, no fever or chills, cardiology is considering possibility of transesophageal echocardiogram for evaluation of mitral valve d isease, and aortic valve stenosis. There is a possibility of heart catheterization once her fluid that is improved, her respiratory status stabilizes. On 03/24/2019 patient seen in follow-up on the selective care unit. Patient apparently had episode of chest discomfort last night, increased shortness of breath, stat chest x-ray was obtained showing changes of fluid overload, congestive heart failure which was actually slightly improved from the previous chest x-ray, nevertheless patient was given an extra dose of IV Lasix, and subsequently her breathing had improved. On today's exam she is sitting up in the recliner, currently on 2 L per high flow nasal cannula, lung sounds reveal fine bibasilar crackles, no rhonchi or wheezes, no complaints of chest pain. Vital signs are stable, today's lab work has been reviewed showing electrolytes within normal limits, and further improvement in patient's renal profile with BUN of 45 and creatinine of 0.94. No fever, no chills, patient remains on IV diuretics, and breathing treatments, will await further recommendations from cardiology. On 03/26/2019 patient seen in follow-up on care unit, FiO2 is down to 4 L, and her pulse ox is 98%, no complaints of chest pain, she states her breathing continues to improve, lung sounds are clear, diminished at the bases, patient is afebrile. No lower extremity edema. Patient remains on IV Lasix at 40 mg every 12 hours. Renal profile continues to improve, B1 is 33, creatinine 0.83. No CBC was done today. No cough or congestion. Will await further recommendations from cardiology Objective - Vital Signs Vital signs: Vital Signs Temp 97.7 F 03/26/19 08:00 Pulse 96 03/26/19 08:29 Resp 18 03/26/19 08:00 BP 142/77 03/26/19 08:00 Pulse Ox 98 03/26/19 08:00 Intake & Output 03/25/19 03/26/19 03/26/19 18:59 06:59 18:59 Intake Total 462 Output Total 1900 Balance 462 -1900 Weight 68.2 kg Intake: Oral 462 Output: Urine 1900 Other: Voiding Method Indwelling Catheter Indwelling Catheter Indwelling Catheter # Bowel Movements 1 - Exam GENERAL EXAM: Alert, wasn't, 89-year-old white female, on 4 L per high flow nasal cannula pulse ox of 98% HEAD: Normocephalic/atraumatic. EYES: Normal reaction of pupils, equal size. Conjunctiva pink, sclera white. NOSE: Clear with pink turbinates. THROAT: No erythema or exudates. NECK: No masses, no JVD, no thyroid enlargement, no adenopathy. CHEST: No chest wall deformity. Symmetrical expansion. LUNGS: Equal air entry with diminished breath sounds CVS: Regular rate and rhythm, normal S1 and S2, no gallops, no murmurs, no rubs ABDOMEN: Soft, nontender. No hepatosplenomegaly, normal bowel sounds, no guarding or rigidity. EXTREMITIES: No clubbing, 1+ edema bilateral lower extremities, no cyanosis, 2+ pulses and upper and lower extremities. MUSCULOSKELETAL: Muscle strength and tone normal. SPINE: No scoliosis or deformity SKIN: No rashes CENTRAL NERVOUS SYSTEM: Alert and oriented -3. No focal deficits, tone is normal in all 4 extremities. PSYCHIATRIC: Alert and oriented -3. Appropriate affect. Intact judgment and insight. - Labs CBC & Chem 7: 03/25/19 06:05 03/26/19 05:43 Labs: Abnormal Lab Results - Last 24 Hours (Table) 03/25/19 03/25/19 03/25/19 Range/Units 11:23 16:18 20:43 Carbon Dioxide (22-30) mmol/L BUN (7-17) mg/dL Glucose (74-99) mg/dL POC Glucose (mg/dL) 197 H 208 H 149 H (75-99) mg/dL 03/26/19 03/26/19 Range/Units 05:43 06:29 Carbon Dioxide 33 H (22-30) mmol/L BUN 33 H (7-17) mg/dL Glucose 116 H (74-99) mg/dL POC Glucose (mg/dL) 126 H (75-99) mg/dL Assessment and Plan Plan: Assessment: #1. Acute hypoxemic respiratory failure related to acute exacerbation of congestive heart failure with systolic dysfunction. Chest x-ray showed pulmonar y edema, small bilateral pleural effusions #2. Nausea and vomiting at home, dehydration #3. Hypotension related to poor oral intake, nausea and vomiting, fluid resuscitated, with improvement in the blood pressure #4. Episode of unresponsiveness at home, brain CT showed no acute intracranial findings, showed moderate diffuse age-related cerebral atrophy and chronic small vessel ischemic changes #5. Acute kidney injury, likely related to ATN, diuretics, nausea and vomiting #6. Valvular heart disease, severe mitral regurgitation, and moderate aortic stenosis #7. Recent hospitalization for acute exacerbation of CHF and a urinary tract infection #8. Previous episode of GI bleeding #9. History of coronary artery disease with the stenting in November 2017 #10. Diabetes mellitus type 2 #11. Hypertention, hyperlipidemia #12. Previous history of bilateral thoracentesis, in December 2018, with removal of 800 mL from the left and 1300 mL from the right pleural effusion cytology was negative, pleural fluid cultures were negative, and analysis showed transudative fluid consistent with history of congestive heart failure Plan: Continue the IV diuretics, continue weaning FiO2, follow-up chest x-ray in the morning. Renal profile continues to improve, will await further recommendations from cardiology in terms of transesophageal echocardiogram. I performed a history & physical examination of the patient and discussed their management with my nurse practitioner, Earline Dumas. I reviewed the nurse practitioner's note and agree with the documented findings and plan of care. Lung sounds are positive for diminished breath sounds with bibasilar crackles. The findings and the impression was discussed with the patient. I attest to the documentation by the nurse practitioner. Time with Patient: Less than 30
[2019-03-26] MEDS ORDERED: NITROGLYCERIN SL TABS 0.4 MG TAB SUBLINGUAL PRN (10:58)
[2019-03-26] MEDS ORDERED: SODIUM CHLORIDE 0.9% 1,000 ML in EMPTY BAG 1 BAG IV ONE (10:58)
[2019-03-26] MEDS ORDERED: ALPRAZolam 0.5 MG TAB PO PRN (10:58)
[2019-03-26 12:00] LABS: Glucose,Whole Blood 200 mg/dL (75-99)
--- NOTE | 2019-03-26 12:35 | P.PN ---
Subjective Progress Note Date: 03/26/19 89-year-old female one of Dr. Sales discharge on 03/15 with past medical history of systolic congestive heart failure, severe mitral regurgitation, moderate aortic stenosis, hypertension, chronic kidney disease stage III, type 2 diabetes, memory loss mostly is examined disease, known coronary artery disease, recurrent depression, hyperlipidemia who was just discharged a week ago after being treated for CHF exacerbation and NSTEMI. According to the daughter bedside patient became nonverbal and unresponsive and was brought to the ER. On evaluation in the ER patient was only responsive to painful stimulus. Within few minutes patient recovered and was oriented 3. Brain CT was negative for any new strokes. Venous blood gas was unremarkable. Labs ordered suggestive of hemoglobin of 10.1 stable as compared to the previous labs, BUN/creatinine 29 and creatinine 1.1, glucose 220 6B UN 29, BNP 12,400, troponin 0.021. Echo obtained during last admission suggest EF of 35-40% with apical inferior lateral hypokinesia. Cardiology and and pulmonary was consulted. Chest x-ray suggestive of pulmonary venous congestion and cardiomegaly. The daughter bedside and was not relating to give Lasix to the patient. On evaluation in the ER patient was currently on 6 L of oxygen saturating well but very short of breath trying to catch her breath on 6 L with symptoms positive for paroxysmal nocturnal dyspnea, orthopnea with bilateral lower extremity edema, no fever no chills no cough production. White is obtained suggest night temp of 98.6, pulse 82 respiratory rate 20 blood pressure 146/72 saturating at 91% On 6 L spelled since patient was short of breath on 6 L patient was switched to a nonrebreather and will be monitored overnight in the ICU 03/21: Patient is seen on the cardiac stepdown unit. She has been seen by cardiology with recommendations to resume her home diuretics and stop the IV Lasix, gradually resume beta giselle and consider adding Aldactone. Norvasc was discontinued. Patient has been afebrile, heart rate in the 70s, blood pressure 107/63, patient was on BiPAP and currently on nasal cannula high flow at 9 L. Repeat lab work reveals white count is 8.4, hemoglobin 10.7. Renal function has increased with a BUN of 42 and creatinine 1.68. Blood sugars are running between 181 and 210. The patient continues to have wheezing we will decrease her Solu-Medrol to 40 mg every 8 hours. Breathing is improved from yesterday. She denies having any abdominal pain. She is complaining of some left-sided chest pain that is tender to palpation. She denies any palpitations. She has a Sunshine catheter in place and diuresing well. Weight is down 3 kg. 03/22: The patient has been afebrile, heart rate in the 80s and 90s, blood pressure 120/48, patient is currently on high flow nasal cannula at 15 L pulse oxing 88-90%. WBC 8.7, hemoglobin 9.7. Sodium 136, potassium 4.4, chloride 105, CO2 20, BUN 55 and creatinine 1.7 to. Blood sugar this morning was 216. Solu-Medrol has been decreased to 40 every 12 hours by pulmonary medicine. Patient to use BiPAP as needed. Patient is also seen and followed by Dr. Farmer and Lasix was changed to IV. She is currently on IV Lasix 40 mg every 12 hours. Discussed CODE STATUS with the patient in depth and she wishes to be a full code and intubated if necessary. Patient's prognosis is poor. Patient and daughter to talk with cardiology regarding options regarding surgery and heart catheterization. Patient does not appear to be a surgical candidate and prognosis is poor. 03/23: Patient is afebrile, heart rate in the 90s, blood pressure 132/63, pulse ox 94% on 15 L nasal cannula. WBC is 11.3, hemoglobin 10.6. Sodium 134, potassium 5.1, chloride 105, CO2 21, BUN 52 and creatinine 1.29, blood sugars running be tween 128 and 221. Repeat chest x-ray reveals bilateral infiltrate and pleural effusions correlate for heart failure. Patient states that her breathing is improved today. She has no pedal edema. Sunshine catheter is draining clear shiv urine. Oxygen time of eval is down 8 L. She is currently on Solu-Medrol at 40 mg every 12 hours and IV Lasix 40 mg every 12. 03/24: The patient developed flash pulmonary edema yesterday and chest pain and was started on nitroglycerin sublingual and received extra dose of Lasix. She was also placed on BiPAP overnight. She is currently on 10 L high flow nasal cannula and pulse oxing 96%. Cardiology is planning for heart catheterization and SALO on Wednesday. Patient is continued on IV Lasix 40 mg twice daily. She has been afebrile, heart rate in the 90s. Blood sugars have been elevated at 189- 260 and patient was started last evening on NovoLog scheduled with meals and NPH 10 units twice daily. Patient's daughter is at the bedside and has been updat ed. 03/25: Patient is sitting up in bed resting comfortably today without any complaints or concerns. She is awake alert and in no acute distress. She is still requiring 10 L of high flow nasal cannula to maintain O2 saturations in the 90s. Patient continues to be afebrile. Hemodynamically stable. W BC 9.9, hemoglobin 11.7. BUN has improved to 38, creatinine 0.92, GFR 56. Patient continues to be on IV Lasix 40 mg twice a day. 03/26: Patient is sitting up in bed resting comfortably without any complaints. She is awake and alert with no acute distress. She continues to require high flow oxygen via nasal cannula to maintain O2 saturations. Patient continues to be afebrile. Hemodynamically stable. Patient is able to tolerate lying flat she will proceed with a cardiac catheterization and transesophageal echocardiogram tomorrow. Creatinine has improved to 0.83, BUN 33 Review Of Systems: Constitutional: No fever, no chills, no night sweats. No weight change. No weakness, fatigue or lethargy. No daytime sleepiness. EENT: No headache. No blurred vision or double vision, no loss of vision. No loss of Hearing, no ringing in the ears, no dizziness. No nasal drainage or con gestion. No epistaxis. No sore throat. Lungs: Reports decreased exercise tolerance, reports dyspnea, uses 2-3 L home oxygen No cough, no sputum production. No wheezing. Cardiovascular: No chest pain, reports lower extremity edema. No palpitations. No paroxysmal nocturnal dyspnea. No orthopnea. No lightheadedness or dizziness. No syncopal episodes. Abdominal: no abdominal discomfort. No nausea, vomiting. no diarrhea. No constipation. No bloody or tarry stools. improved loss of appetite. Genitourinary: No dysuria, increased frequency, urgency. No urinary retention. Musculoskeletal: No myalgias. No muscle weakness, no gait dysfunction, no frequent falls. No back pain. No neck pain. Integumentary: No wounds, no lesions. No rash or pruritus. No unusual bruising. No change in hair or nails. Neurologic: No aphasia. No facial droop. No change in mentation. No head injury. No headache. No paralysis. No paresthesia. Psychiatric: No depression. No anxiety. No mood swings. Endocrine: No abnormal blood sugars. No weight change. No excessive sweating or thirst. Objective - Vital Signs Vital signs: Vital Signs Temp 98 F 03/26/19 11:41 Pulse 92 03/26/19 12:06 Resp 18 03/26/19 11:52 BP 146/68 03/26/19 11:41 Pulse Ox 98 03/26/19 11:41 Intake & Output 03/25/19 03/26/19 03/26/19 18:59 06:59 18:59 Intake Total 462 Output Total 1900 Balance 462 -1900 Weight 68.2 kg Intake: Oral 462 Output: Urine 1900 Other: Voiding Method Indwelling Catheter Indwelling Catheter Indwelling Catheter # Bowel Movements 1 - Exam General Appearance: Alert, cooperative, no distress, appears stated age. Neck HEENT: Supple, no lymphadenopathy, no thyroid enlargement, no carotid br uits. Lungs: Diminished at bases crackles throughout, No wheezes no rhonchi, no deformity. Chest Wall: Chest wall normal expansion no tenderness and no deformity was found on exam, no costochondral pain or discomfort. Heart: Regular rate and rhythm, S1, S2 normal, no murmur, rub or gallop. Back: Symmetric, no curvature, ROM normal, no CVA tenderness. Abdomen: Soft, non-tender, no rebound or rigidity, no hepatosplenomegaly. Extremities: Extremities normal, atraumatic, no cyanosis or edema. Pulses: 2+ and symmetric. Skin: Skin color, texture, tugor normal, no rashes or lesions. Neurologic: Alert oriented x3 cranial nerves II through XII intact, no motor deficit, - Labs CBC & Chem 7: 03/25/19 06:05 03/26/19 05:43 Labs: Abnormal Lab Results - Last 24 Hours (Table) 03/25/19 03/25/19 03/26/19 Range/Units 16:18 20:43 05:43 Carbon Dioxide 33 H (22-30) mmol/L BUN 33 H (7-17) mg/dL Glucose 116 H (74-99) mg/dL POC Glucose (mg/dL) 208 H 149 H (75-99) mg/dL 03/26/19 03/26/19 Range/Units 06:29 11:44 Carbon Dioxide (22-30) mmol/L BUN (7-17) mg/dL Glucose (74-99) mg/dL POC Glucose (mg/dL) 126 H 200 H (75-99) mg/dL Assessment and Plan Plan: 1 acute on chronic hypoxic respiratory failure secondary to acute on chronic systolic heart failure, moderate aortic stenosis, severe mitral regurgitation, bilateral pleural effusions. Cardiology consult appreciated. Continue on IV Lasix 40 mg twice daily. Continue Ranexa 1000 mg twice daily, Imdur 30 mg daily. I&O and daily weights. Monitor renal function and electrolytes. Renal function has improved. Heart catheterization and SALO on Wednesday. 2 acute on chronic hypoxic respiratory failure. Home oxygen is up to 4 L. Patient is currently on nasal cannula at 10 L. 3 bilateral pleural effusion: No need for thoracentesis. 4 hypertension. Norvasc discontinued. Continue hydralazine 25 mg 3 times daily, Imdur 30 mg daily, Lopressor is currently on hold. 5 chronic kidney disease stage 3. Nephrology consult. 6 type 2 diabetes. Continue NovoLog scale before meals and at bedtime, hold Tradjenta. 7 non-ST segment elevation myocardial infarction on previous admission. Continue aspirin 81 mg daily, Lipitor, beta giselle to be resumed slowly per c ardiology. 8 history of coronary artery disease. 9. memory loss: Most likely Alzheimer disease, patient remain on galantamine 4 mg twice a day, Aricept 5 mg daily. 10 hyperlipidemia: Remain on Lipitor 40 mg daily. 11 recurrent depression: Patient has been on Lexapro 10 mg a day. DVT prophylaxis with heparin every 12. GI prophylaxis. Pepcid 20 mg daily. Discharge plan: Most likely home with [facility] Impression and plan of care have been directed as dictated by the signing physic ian. Netta Owens nurse practitioner acting as scribe for signing physician.
--- NOTE | 2019-03-26 12:36 | PN ---
PROGRESS NOTE Patient is seen for followup for acute kidney injury. Her renal function has significantly improved. Creatinine is down to 0.83. The patient remains on IV push Lasix for volume overload. This morning, she is sleeping comfortably. Patient is arousable. She denies any significant shortness of breath or chest pain. PHYSICAL EXAMINATION: On examination, blood pressure is 142/77, heart rate 96 per minute. Patient is afebrile. Examination of the heart S1, S2. Examination of the lungs bilateral breath sounds are heard. Abdomen is soft, nontender. Examination of lower extremities shows no significant edema. ROOFER ASSISTANT exam is grossly intact. LAB: Show sodium 139, potassium 3.6, chloride 102, BUN 33, serum creatinine 0.83. ASSESSMENT: 1. Acute kidney injury secondary to hypotension, hypoperfusion, currently resolved. 2. Mitral valve regurgitation. The patient will need further evaluation in terms of SALO versus cardiac catheterization. Her renal function is currently back to baseline and significantly improved and we can proceed with cardiac cath if needed. 3. Volume overload, currently improved. 4. Congestive heart failure, acute on top of chronic, mainly systolic. 5. Cardiomyopathy, ejection fraction of about 35%. PLAN: Continue with IV Lasix. Okay to proceed with cardiac cath from Nephrology standpoint. MMODL / IJN: [id number] /
[2019-03-26 16:49] LABS: Glucose,Whole Blood 184 mg/dL (75-99)
[2019-03-26 20:40] LABS: Glucose,Whole Blood 144 mg/dL (75-99)
[2019-03-26] MEDS: ALPRAZolam 0.25 MG TAB PO PRN (22:10)
[2019-03-27] MEDS ORDERED: ASPIRIN 325 MG TAB PO ONE (06:00)
[2019-03-27] MEDS ORDERED: ATORVASTATIN 80 MG TAB PO ONE (06:00)
[2019-03-27 06:39] LABS: Glucose,Whole Blood 114 mg/dL (75-99)
[2019-03-27] MEDS ORDERED: fentaNYL (PF) 50 MCG/ML 2 ML AMP ONE (06:43)
[2019-03-27] MEDS ORDERED: SODIUM CHLORIDE 0.9% 1,000 ML IV ONE ×2 (07:24→08:20)
[2019-03-27] MEDS: BENZOCAINE SPRAY 1 CAN MUCOUS MEM ONE ×3 (07:35→07:54)
[2019-03-27] MEDS ORDERED: fentaNYL (PF) 50 MCG/ML 2 ML AMP IVP ONE (07:36)
[2019-03-27] MEDS: MIDAZOLAM (PF) 2 MG/2 ML VIAL IVP ONE ×2 (07:36→07:37)
[2019-03-27] MEDS ORDERED: LIDOCAINE 1% INJ 10MG/ML (20 ML MDV) ONE (07:43)
--- NOTE | 2019-03-27 08:15 | XR ---
EXAMINATION TYPE: XR chest 2V DATE OF EXAM: 03/27/2019 COMPARISON: 03/25/2019 TECHNIQUE: PA and lateral views submitted. HISTORY: Shortness of breath FINDINGS: Postsurgical change overlying cervical spine. Arthropathy shoulders. No pneumothorax. Bilateral conso lidation, cardiomegaly and pleural effusion. Interstitium improved. Underlying COPD suspected. Degene rative change of the spine IMPRESSION: 1. Stable x-ray demonstrating findings suggestive of COPD with bilateral lower lobe infiltrate and sm all
[2019-03-27] MEDS ORDERED: LIDOCAINE 1% INJ 10MG/ML (20 ML MDV) SQ ONE (08:19)
--- NOTE | 2019-03-27 08:31 | ECHOT ---
TRANSESOPHAGEAL ECHOCARDIOGRAM DATE OF SERVICE: March 27, 2019 PERFORMING PHYSICIAN: Dean Otto MD, trestleman. PROCEDURE PERFORMED: Transesophageal echocardiogram. INDICATION: This is a pleasant 89-year-old female patient with known history of cardiomyopathy and EF between 35% to 40% as well as valvular heart disease with moderate and moderate MR as well as recurrent hospital admission with heart failure, presented again to the hospital with change in mental status and was diagnosed with acute exacerbation of congestive heart failure secondary to systolic dysfunction. The last echocardiogram revealed impaired LV function with EF between 35% to 40% with severe mitral regurgitation. The transesophageal echocardiogram is for further evaluation of the severity of the MR as well as . COMPLICATION: None. LEVEL OF SEDATION: Moderate with sedation length of 15 minutes. PROCEDURE DESCRIPTION: After obtaining an informed consent, explaining the procedure, benefits, risks, complications and alternatives, the patient was brought to the transesophageal echocardiogram suite. A pulse oximetry and heart rate monitors were attached to the patient prior to the procedure. The patient's throat was sprayed using lidocaine locally. Following that, the patient was turned into left lateral position. A bite guard was placed and the patient was then sedated with the above doses of Versed and fentanyl in divided doses. Following that, the transesophageal echocardiogram probe was advanced through the bite guard into the mid esophagus where 2-D echocardiogram images as well as color Doppler images of various cardiac structures were obtained. We evaluated the interatrial septum using 2-D echocardiogram, color Doppler, and contrast study. The procedure was completed. There were no complications. FINDINGS: The left ventricular dimension appeared to be within normal limits. The left ventricular systolic function is impaired with an ejection fraction around 35%. The right ventricle appeared to be of normal size and function. The left atrium appeared to be moderately enlarged. The left atrial appendage appeared to be free from any thrombus. The aortic valve appeared to be thickened and calcified with evidence of moderate aortic stenosis by gradient. I got a mean gradient of 20 mmHg across the aortic valve. The mitral valve seems to be also thickened and calcified with evidence of moderate mitral regurgitation. There was mild to moderate tricuspid regurgitation seen and mild pulmonic insufficiency seen. The interatrial septum appeared to be intact. CONCLUSION: 1. Impaired left ventricular function with ejection fraction around 35% with inferior hypokinesia. 2. Normal right ventricle systolic function. 3. Moderately dilated left atrium. 4. Normal left atrial appendage without thrombus. 5. Intact interatrial septum without any evidence of shunt. 6. Trileaflet aortic valve with evidence of aortic sclerosis and moderate stenosis by gradient. 7. Thickened mitral valve leaflets with moderate mitral regurgitation only. 8. Mild to moderate tricuspid regurgitation. 9. No evidence of pericardial effusion. MMODL / IJN: [id number] /
[2019-03-27] MEDS ORDERED: RX INFO: IV CONTRAST WAS GIVEN 1 EACH MISC MISCELLANE PRN (08:41)
[2019-03-27] MEDS ORDERED: IOPAMIDOL-370 125ML BTL INJ ONE (08:44)
[2019-03-27] MEDS ORDERED: SODIUM CHLORIDE 0.9% 1,000 ML IV SCH (08:45)
--- NOTE | 2019-03-27 09:16 | CC ---
CARDIAC CATHETERIZATION REPORT DATE OF SERVICE: 03/27/2019 PERFORMING PHYSICIAN: Dean Otto MD, [employer]. PROCEDURE PERFORMED: Selective right and left coronary angiogram. INDICATION: This is a pleasant 89-year-old female patient with history of coronary artery disease and prior stenting of the LAD in November of 2017, as well as multiple comorbid conditions, keep coming to the hospital with recurrent heart failure. She underwent a transthoracic echocardiogram and that revealed severe mitral regurgitation and moderate aortic stenosis. She was brought today to undergo a heart catheterization. APPROACH: Right common femoral artery. COMPLICATION: None. LEVEL OF SEDATION: Moderate sedation length of 21 minutes. PROCEDURE DESCRIPTION: After obtaining an informed consent, the patient was brought to the [facility] [employer]. The right common femoral artery was cannulated using micropuncture technique. The micropuncture wire passed easily, then I placed a 6-Indian sheath in the right common femoral artery. After that, I did selective right and left coronary angiogram using JR4 and JL3.5 catheters. Both are 5-Indian. After that, the procedure was completed without any complication. SELECTIVE CORONARY ANGIOGRAM: 1. The right coronary artery is a large caliber vessel and it is a dominant vessel. The RCA has mild disease in the midportion. 2. The left main is calcified with a lesion in the mid shaft, appeared to be in the range of 60%-70%. The left main bifurcates into left circumflex and left anterior descending artery. 3. The left circumflex is a medium caliber vessel with a tight lesion in the proximal portion. 4. The LAD, the proximal LAD appeared to have mild to moderate disease only. The mid LAD is stented and the stent is patent. The LAD distally appeared to have mild diffuse disease only. The LAD gives rise into a diagonal branch which appeared to be a small to medium caliber vessel with intermediate disease in the midportion. CONCLUSION: 1. Severe disease involving the mid shaft of the left main. 2. Patent stent in the mid left anterior descending artery. POSTPROCEDURE MANAGEMENT: Given the above anatomy, I did recommend the patient to be seen by a cardiothoracic surgeon for the evaluation of coronary artery bypass grafting. MMODL / IJN: [id number] /
[2019-03-27] MEDS: INSULIN ASPART (NovoLOG) 100 UNIT/ML VIAL SQ SCH ×7 (10:02→21:33)
[2019-03-27] MEDS: FUROSEMIDE 10 MG/ML 4 ML VIAL IV SCH ×2 (10:40→21:33)
[2019-03-27] MEDS: POTASSIUM CHLORIDE ER 20 MEQ TAB.ER PO SCH (10:40)
[2019-03-27] MEDS: hydrALAZINE HCL 25 MG TAB PO SCH ×3 (10:40→21:34)
[2019-03-27] MEDS: guaiFENesin 600 MG TABLET.ER PO SCH ×2 (10:40→21:33)
[2019-03-27] MEDS: predniSONE 20 MG TAB PO SCH (10:41)
[2019-03-27] MEDS: DONEPEZIL 5 MG TAB PO SCH (10:41)
[2019-03-27] MEDS: FAMOTIDINE 20 MG TAB PO SCH (10:41)
[2019-03-27] MEDS: HEPARIN SODIUM,PORCINE 5,000 UNIT/ML 1 ML VIAL SQ SCH ×2 (10:56→21:33)
[2019-03-27] MEDS: IPRATROPIUM-ALBUTEROL 3 ML NEB INHALATION PRN (11:00)
[2019-03-27] MEDS: ESCITALOPRAM 10 MG TAB PO SCH (11:54)
[2019-03-27] MEDS: ISOSORBIDE MONONITRATE ER 30 MG TAB.ER.24H PO SCH (11:54)
[2019-03-27 12:02] LABS: Glucose,Whole Blood 126 mg/dL (75-99)
[2019-03-27] MEDS: INSULIN NPH 300 UNIT/3 ML VIAL SQ SCH ×2 (12:02→21:34)
--- NOTE | 2019-03-27 14:11 | P.PN ---
Subjective Progress Note Date: 03/27/19 89-year-old female one of Dr. Sales discharge on 03/15 with past medical history of systolic congestive heart failure, severe mitral regurgitation, moderate aortic stenosis, hypertension, chronic kidney disease stage III, type 2 diabetes, memory loss mostly is examined disease, known coronary artery disease, recurrent depression, hyperlipidemia who was just discharged a week ago after being treated for CHF exacerbation and NSTEMI. According to the daughter bedside patient became nonverbal and unresponsive and was brought to the ER. On evaluation in the ER patient was only responsive to painful stimulus. Within few minutes patient recovered and was oriented 3. Brain CT was negative for any new strokes. Venous blood gas was unremarkable. Labs ordered suggestive of hemoglobin of 10.1 stable as compared to the previous labs, BUN/creatinine 29 and creatinine 1.1, glucose 220 6B UN 29, BNP 12,400, troponin 0.021. Echo obtained during last admission suggest EF of 35-40% with apical inferior lateral hypokinesia. Cardiology and and pulmonary was consulted. Chest x-ray suggestive of pulmonary venous congestion and cardiomegaly. The daughter bedside and was not relating to give Lasix to the patient. On evaluation in the ER patient was currently on 6 L of oxygen saturating well but very short of breath trying to catch her breath on 6 L with symptoms positive for paroxysmal nocturnal dyspnea, orthopnea with bilateral lower extremity edema, no fever no chills no cough production. White is obtained suggest night temp of 98.6, pulse 82 respiratory rate 20 blood pressure 146/72 saturating at 91% On 6 L spelled since patient was short of breath on 6 L patient was switched to a nonrebreather and will be monitored overnight in the ICU 03/21: Patient is seen on the cardiac stepdown unit. She has been seen by cardiology with recommendations to resume her home diuretics and stop the IV Lasix, gradually resume beta giselle and consider adding Aldactone. Norvasc was discontinued. Patient has been afebrile, heart rate in the 70s, blood pressure 107/63, patient was on BiPAP and currently on nasal cannula high flow at 9 L. Repeat lab work reveals white count is 8.4, hemoglobin 10.7. Renal function has increased with a BUN of 42 and creatinine 1.68. Blood sugars are running between 181 and 210. The patient continues to have wheezing we will decrease her Solu-Medrol to 40 mg every 8 hours. Breathing is improved from yesterday. She denies having any abdominal pain. She is complaining of some left-sided chest pain that is tender to palpation. She denies any palpitations. She has a Sunshine catheter in place and diuresing well. Weight is down 3 kg. 03/22: The patient has been afebrile, heart rate in the 80s and 90s, blood pressure 120/48, patient is currently on high flow nasal cannula at 15 L pulse oxing 88-90%. WBC 8.7, hemoglobin 9.7. Sodium 136, potassium 4.4, chloride 105, CO2 20, BUN 55 and creatinine 1.7 to. Blood sugar this morning was 216. Solu-Medrol has been decreased to 40 every 12 hours by pulmonary medicine. Patient to use BiPAP as needed. Patient is also seen and followed by Dr. Farmer and Lasix was changed to IV. She is currently on IV Lasix 40 mg every 12 hours. Discussed CODE STATUS with the patient in depth and she wishes to be a full code and intubated if necessary. Patient's prognosis is poor. Patient and daughter to talk with cardiology regarding options regarding surgery and heart catheterization. Patient does not appear to be a surgical candidate and prognosis is poor. 03/23: Patient is afebrile, heart rate in the 90s, blood pressure 132/63, pulse ox 94% on 15 L nasal cannula. WBC is 11.3, hemoglobin 10.6. Sodium 134, potassium 5.1, chloride 105, CO2 21, BUN 52 and creatinine 1.29, blood sugars running be tween 128 and 221. Repeat chest x-ray reveals bilateral infiltrate and pleural effusions correlate for heart failure. Patient states that her breathing is improved today. She has no pedal edema. Sunshine catheter is draining clear shiv urine. Oxygen time of eval is down 8 L. She is currently on Solu-Medrol at 40 mg every 12 hours and IV Lasix 40 mg every 12. 03/24: The patient developed flash pulmonary edema yesterday and chest pain and was started on nitroglycerin sublingual and received extra dose of Lasix. She was also placed on BiPAP overnight. She is currently on 10 L high flow nasal cannula and pulse oxing 96%. Cardiology is planning for heart catheterization and SALO on Wednesday. Patient is continued on IV Lasix 40 mg twice daily. She has been afebrile, heart rate in the 90s. Blood sugars have been elevated at 189- 260 and patient was started last evening on NovoLog scheduled with meals and NPH 10 units twice daily. Patient's daughter is at the bedside and has been updat ed. 03/25: Patient is sitting up in bed resting comfortably today without any complaints or concerns. She is awake alert and in no acute distress. She is still requiring 10 L of high flow nasal cannula to maintain O2 saturations in the 90s. Patient continues to be afebrile. Hemodynamically stable. W BC 9.9, hemoglobin 11.7. BUN has improved to 38, creatinine 0.92, GFR 56. Patient continues to be on IV Lasix 40 mg twice a day. 03/26: Patient is sitting up in bed resting comfortably without any complaints. She is awake and alert with no acute distress. She continues to require high flow oxygen via nasal cannula to maintain O2 saturations. Patient continues to be afebrile. Hemodynamically stable. Patient is able to tolerate lying flat she will proceed with a cardiac catheterization and transesophageal echocardiogram tomorrow. Creatinine has improved to 0.83, BUN 33 03/27: SALO reveals EF 35%, moderate aortic stenosis, [id number] tricuspid regurgitation, moderate mitral regurgitation, no pericardial effusion. Heart catheterization performed by Dr. Otto as well finding severe disease involving the mid shaft of the left main, patent stent in the LAD. [facility]. Patient's O2 needs have significantly improved and she is pulse oxing 95-97% on 2 L nasal cannula. Patient is resting comfortably in bed. Heart rate in the 70s and 80s, blood pressure 105/57 and patient has been afebrile. Blood sugars are running between 114 and 144. Repeat chest x-ray done this morning shows stable findings suggestive of COPD and bilateral lower lobe infiltrates. Review Of Systems: Constitutional: No fever, no chills, no night sweats. No weight change. No weakness, fatigue or lethargy. No daytime sleepiness. EENT: No headache. No blurred vision or double vision, no loss of vision. No loss of Hearing, no ringing in the ears, no dizziness. No nasal drainage or congestion. No epistaxis. No sore throat. Lungs: Reports decreased exercise tolerance, denies dyspnea, uses 2-3 L home oxygen No cough, no sputum production. No wheezing. Cardiovascular: No chest pain, reports lower extremity edema. No palpitations. No paroxysmal nocturnal dyspnea. No orthopnea. No lightheadedness or dizziness. No syncopal episodes. Abdominal: no abdominal discomfort. No nausea, vomiting. no diarrhea. No constipation. No bloody or tarry stools. improved loss of appetite. Genitourinary: No dysuria, increased frequency, urgency. No urinary retention. Musculoskeletal: No myalgias. No muscle weakness, no gait dysfunction, no frequent falls. No back pain. No neck pain. Integumentary: No wounds, no lesions. No rash or pruritus. No unusual bruising. No change in hair or nails. Neurologic: No aphasia. No facial droop. No change in mentation. No head injury. No headache. No paralysis. No paresthesia. Psychiatric: No depression. No anxiety. No mood swings. Endocrine: No abnormal blood sugars. No weight change. No excessive sweating or thirst. Objective - Vital Signs Vital signs: Vital Signs Temp 98.4 F 03/27/19 04:00 Pulse 90 03/27/19 04:00 Resp 17 03/27/19 04:00 BP 171/76 03/27/19 04:00 Pulse Ox 95 03/27/19 04:00 Intake & Output 03/26/19 03/27/19 03/27/19 18:59 06:59 18:59 Intake Total 230 100 Output Total 2300 Balance 230 -2300 100 Weight 67.9 kg Intake: IV 100 Oral 230 Output: Urine 2300 Other: Voiding Method Indwelling Catheter Indwelling Catheter # Voids 1 - Exam General appearance: cooperative, no acute distress and appears comfortable, obese - EENT Eyes: anicteric sclerae, PERRLA, normal appearance ENT: hearing grossly normal - Neck Neck: no lymphadenopathy, normal ROM, no other, no rigidity, no stridor, no thyromegaly - Respiratory Respiratory: bilateral: Diminished bases bilaterally - Cardiovascular Rhythm: regular Heart sounds: normal: S1, S2 Abnormal Heart Sounds: 3/6 systolic murmur left lateral sternal border, no diastolic murmur, no rub, no S3 Gallop, no S4 Gallop, no click, no other No pedal edema - Gastrointestinal General gastrointestinal: normal bowel sounds, soft Sunshine with clear shiv urine - Integumentary Integumentary: no rash - Neurologic Neurologic: CNII-XII intact - Musculoskeletal Musculoskeletal: Gait not assessed strength equal bilaterally - Psychiatric Psychiatric: A&O x's 3, appropriate affect - Labs CBC & Chem 7: 03/25/19 06:05 03/26/19 05:43 Labs: Abnormal Lab Results - Last 24 Hours (Table) 03/26/19 03/26/19 03/26/19 Range/Units 11:44 16:42 20:38 POC Glucose (mg/dL) 200 H 184 H 144 H (75-99) mg/dL 03/27/19 Range/Units 06:37 POC Glucose (mg/dL) 114 H (75-99) mg/dL Assessment and Plan Plan: 1 acute on chronic hypoxic respiratory failure secondary to acute on chronic systolic heart failure, moderate aortic stenosis, severe mitral regurgitation, bilateral pleural effusions. Cardiology consult appreciated. Currently on IV Lasix 40 mg twice daily. Continue Ranexa 1000 mg twice daily, Imdur 30 mg daily. I&O and daily weights. Monitor renal function and electrolytes. Status post Heart catheterization and SALO. Cardiothoracic surgeon consult. 2 acute on chronic hypoxic respiratory failure. Home oxygen is up to 4 L. Patient is currently on nasal cannula at 10 L. 3 bilateral pleural effusion: No need for thoracentesis. 4 hypertension. Norvasc discontinued. Continue hydralazine 25 mg 3 times daily, Imdur 30 mg daily, Lopressor is currently on hold. 5 chronic kidney disease stage 3. Nephrology consult. 6 type 2 diabetes. Continue NovoLog scale before meals and at bedtime, hold Tradjenta. 7 non-ST segment elevation myocardial infarction on previous admission. Continue aspirin 81 mg daily, Lipitor, beta giselle to be resumed slowly per cardiology. 8 memory loss: Most likely Alzheimer disease, patient remain on galantamine 4 mg twice a day, Aricept 5 mg daily. 9 history of coronary artery disease. 10 recurrent depression: Patient has been on Lexapro 10 mg a day. 11 hyperlipidemia: Remain on Lipitor 40 mg daily. DVT prophylaxis with heparin every 12. GI prophylaxis. Pepcid 20 mg daily. Discharge plan: Most likely home with [facility] Impression and plan of care have been directed as dictated by the signing physician. Donita Padron nurse practitioner acting as scribe for signing physician.
--- NOTE | 2019-03-27 14:54 | P.PN ---
Subjective Progress Note Date: 03/27/19 Principal diagnosis: Acute exacerbation of chronic congestive heart failure This is a 89-year-old female patient of Dr. Sales, with known history of valvular heart disease, severe mitral regurgitation, and moderate aortic stenosis, hypertension, hyperlipidemia, chronic congestive heart failure, previous myocardial infarction with stenting of the LAD in November 2017, type 2 diabetes mellitus, who was recently hospitalized for acute exacerbation of congestive heart failure with systolic dysfunction, and non-ST segment elevated myocardial infarction. Echocardiogram was completed during that admission and showed ejection fraction of 35-40%. Patient was discharged home on 03/15/2019, on oral Lasix of 40 mg twice daily. Patient was brought to the hospital on 03/20/2019 for complaints of worsening shortness of breath, patient woke up out of her sleep and couldn't breathe, was having some chest pain that responded to sublingual nitro, vision also had episode of unresponsiveness at home. Patient had some episodes of emesis at home, did have some chills, but was afebrile. Chest x-ray was completed showing persistent central vascular congestion and bibasilar opacities/bilateral pleural effusions. Patient did have some hypotension, apparently she was a bit dehydrated from vomiting. Did have some abdominal discomfort across the upper abdomen, but abdomen is soft, no diarrhea. She was given the a liter bolus in the emergency department, she was in significant respiratory distress, and blood gas was obtained showing pO2 of 73, pCO2 of 39, pH of 7.41 this was done on FiO2 100%, patient was placed on BiPAP support. She was started on IV diuretics, antibiotics, breathing treatments. Labs did not show any evidence of leukocytosis, admission labs showed a white blood cell count of 10.4, hemoglobin of 10.1, electrolytes are within normal limits, BUN is 29 creatinine was 1.1 and renal profile has increased on today's labs, with B1 up to 42 and creatinine of 1.6. Her BNP was 12,400, troponin was negative at 0.021. Urinalysis was negative, and urine drug screen was negative. During my exam patient is seen still on BiPAP, but she has been able to tolera te periods on the high flow nasal cannula, she has 1+ pitting edema in lower extremities, lung sounds reveal diminished breath sounds bilaterally with fine rales at the bases. No further episodes of nausea and vomiting. No complaints of chest pain, cardiology is following, EKG showed a sinus rhythm with left bundle branch block and nonspecific STT wave changes On 03/22/2019 patient seen in follow-up on selective care unit, she is currently off BiPAP, she did wear it through the night, he is currently on 15 L of oxygen per high flow nasal cannula and her pulse ox is 88-89%, she is afebrile, she denies any chest pain, she is diuresing, her lower extremity edema is improving, lung sounds are positive for MRSA breath sounds with rales at the bases, she states she is dyspneic on today's exam, follow-up chest x-ray was obtained today shows bilateral infiltrates and pleural effusions, relatively stable, maybe slightly progressed. In negative fluid balance. Today's labs have been reviewe d, and showed no leukocytosis, with blood cell count is 8.7, hemoglobin is 9.7, sodium is 136, potassium is 4.4, chloride is 105, CO2 is 20, B1 is 55 and creatinine is 1.72, and renal profile is slightly worse on on today's labs. She remains on IV Lasix at 40 mg every 12 hours, she is on breathing treatments and IV steroids. On 03/23/2019 patient seen in follow-up on selective care unit. She is awake and alert, sitting up in the recliner, her oxygenation is improving, she remains on 15 L high flow oxygen with pulse ox of 94%, she says she is less dyspneic, in lower extremity edema is improving, follow-up chest x-ray from yesterday was reviewed, and showed bilateral infiltrates and pleural effusions related to history of CHF. She remains on IV Lasix at 40 mg every 12 hours, and today's lab work shows a woman of her renal profile with BUN at 52 and creatinine of 1.29. Patient is in -3400 cc fluid balance. Denies any chest pain, hemodynamics remained stable, no fever or chills, cardiology is considering possibility of transesophageal echocardiogram for evaluation of mitral valve d isease, and aortic valve stenosis. There is a possibility of heart catheterization once her fluid that is improved, her respiratory status stabilizes. On 03/24/2019 patient seen in follow-up on the selective care unit. Patient apparently had episode of chest discomfort last night, increased shortness of breath, stat chest x-ray was obtained showing changes of fluid overload, congestive heart failure which was actually slightly improved from the previous chest x-ray, nevertheless patient was given an extra dose of IV Lasix, and subsequently her breathing had improved. On today's exam she is sitting up in the recliner, currently on 2 L per high flow nasal cannula, lung sounds reveal fine bibasilar crackles, no rhonchi or wheezes, no complaints of chest pain. Vital signs are stable, today's lab work has been reviewed showing electrolytes within normal limits, and further improvement in patient's renal profile with BUN of 45 and creatinine of 0.94. No fever, no chills, patient remains on IV diuretics, and breathing treatments, will await further recommendations from cardiology. On 03/26/2019 patient seen in follow-up on care unit, FiO2 is down to 4 L, and her pulse ox is 98%, no complaints of chest pain, she states her breathing continues to improve, lung sounds are clear, diminished at the bases, patient is afebrile. No lower extremity edema. Patient remains on IV Lasix at 40 mg every 12 hours. Renal profile continues to improve, B1 is 33, creatinine 0.83. No CBC was done today. No cough or congestion. Will await further recommendations from cardiology 03/27/2019 patient seen in follow-up on [facility] care unit, she has just returned from a transesophageal echocardiogram in the cardiac catheterization. In the cardiac catheterization there was severe disease involving the mid shaft of the left main discovered, and patent stent in the mid LAD. Transesophageal echocardiogram showed impaired left ventricular function with ejection fraction of 35% with inferior hypokinesia, trileaflet aortic valve with evidence of aortic sclerosis and moderate stenosis by gradient, thickened mitral valve leaflets with moderate mitral regurgitation only, mild to moderate tricuspid regurgitation and no evidence of pericardial effusion. Overall patient is breathing easier, she continues to diurese, she is currently on 2 L of oxygen sats of 95%, she is afebrile. Continues is on IV Lasix at 40 mg every 12 hours, no new blood work today. Objective - Vital Signs Vital signs: Vital Signs Temp 97.4 F L 03/27/19 11:22 Pulse 89 03/27/19 13:22 Resp 16 03/27/19 13:22 BP 105/57 03/27/19 13:22 Pulse Ox 95 03/27/19 13:22 Intake & Output 03/26/19 03/27/19 03/27/19 18:59 06:59 18:59 Intake Total 230 200 Output Total 2300 900 Balance 230 -2300 -700 Weight 67.9 kg Intake: IV 200 Oral 230 0 Output: Urine 2300 900 Other: Voiding Method Indwelling Catheter Indwelling Catheter Indwelling Catheter # Voids 1 - Exam GENERAL EXAM: Alert, wasn't, 89-year-old white female, on 2 L per high flow nasal cannula pulse ox of 98% HEAD: Normocephalic/atraumatic. EYES: Normal reaction of pupils, equal size. Conjunctiva pink, sclera white. NOSE: Clear with pink turbinates. THROAT: No erythema or exudates. NECK: No masses, no JVD, no thyroid enlargement, no adenopathy. CHEST: No chest wall deformity. Symmetrical expansion. LUNGS: Equal air entry with diminished breath sounds CVS: Regular rate and rhythm, normal S1 and S2, no gallops, no murmurs, no rubs ABDOMEN: Soft, nontender. No hepatosplenomegaly, normal bowel sounds, no guarding or rigidity. EXTREMITIES: No clubbing, 1+ edema bilateral lower extremities, no cyanosis, 2+ pulses and upper and lower extremities. MUSCULOSKELETAL: Muscle strength and tone normal. SPINE: No scoliosis or deformity SKIN: No rashes CENTRAL NERVOUS SYSTEM: Alert and oriented -3. No focal deficits, tone is normal in all 4 extremities. PSYCHIATRIC: Alert and oriented -3. Appropriate affect. Intact judgment and insight. - Labs CBC & Chem 7: 03/25/19 06:05 03/26/19 05:43 Labs: Abnormal Lab Results - Last 24 Hours (Table) 03/26/19 03/26/19 03/27/19 Range/Units 16:42 20:38 06:37 POC Glucose (mg/dL) 184 H 144 H 114 H (75-99) mg/dL 03/27/19 Range/Units 11:56 POC Glucose (mg/dL) 126 H (75-99) mg/dL Assessment and Plan Plan: Assessment: #1. Acute hypoxemic respiratory failure related to acute exacerbation of congestive heart failure with systolic dysfunction. Chest x-ray showed pulmonary edema, small bilateral pleural effusions #2. Nausea and vomiting at home, dehydration, resolved #3. Hypotension related to poor oral intake, nausea and vomiting, fluid resuscitated, with improvement in the blood pressure #4. Episode of unresponsiveness at home, brain CT showed no acute intracranial findings, showed moderate diffuse age-related cerebral atrophy and chronic small vessel ischemic changes #5. Acute kidney injury, likely related to ATN, diuretics, nausea and vomiting, resolved #6. Valvular heart disease, severe mitral regurgitation, and moderate aortic stenosis #7. Recent hospitalization for acute exacerbation of CHF and a urinary tract infection #8. Previous episode of GI bleeding #9. History of coronary artery disease with the stenting in November 2017 #10. Diabetes mellitus type 2 #11. Hypertention, hyperlipidemia #12. Previous history of bilateral thoracentesis, in December 2018, with removal of 800 mL from the left and 1300 mL from the right pleural effusion cytology was negative, pleural fluid cultures were negative, and analysis showed transudative fluid consistent with history of congestive heart failure #13. Coronary artery disease with severe left main disease #14. Ischemic cardiomyopathy and the transesophageal echocardiogram revealed impaired left ventricle systolic function with an EF of 35% Plan: Continue the IV diuretics, oxygenation continues to improve, renal profile is stable, SALO and cardiac cath results have been noted, patient was found to have severe disease involving the left main, and CT surgery has been consulted for a possibility of bypass surgery. Today's chest x-ray has been reviewed and shows COPD with bilateral lower lobe infiltrates, and there is improvement in the appearance of the bilateral pleural effusions. We'll continue to follow, and will await recommendations from CT surgery and cardiology I performed a history & physical examination of the patient and discussed their management with my nurse practitioner, Earline Dumas. I reviewed the nurse practitioner's note and agree with the documented findings and plan of care. Lung sounds are positive for diminished breath sounds with bibasilar crackles. The findings and the impression was discussed with the patient. I attest to the documentation by the nurse practitioner. Time with Patient: Less than 30
[2019-03-27] MEDS ORDERED: NITROGLYCERIN SL TABS 0.4 MG TAB SUBLINGUAL PRN (15:30)
[2019-03-27] MEDS ORDERED: SODIUM CHLORIDE 0.9% 1,000 ML in EMPTY BAG 1 BAG IV ONE (15:30)
[2019-03-27] MEDS ORDERED: ALPRAZolam 0.25 MG TAB PO PRN (15:30)
[2019-03-27] MEDS ORDERED: ALPRAZolam 0.5 MG TAB PO PRN (15:30)
[2019-03-27 16:35] LABS: Amorphous Sediment,Urine Rare /hpf; Appearance,Urine Cloudy (Clear); Bilirubin,Urine Negative (Negative); Blood,Urine Negative (Negative); Color,Urine Yellow; Glucose,Urine (UA) Negative (Negative); Ketones,Urine Negative (Negative); Leukocyte Esterase,Urine Large (Negative); Mucus,Urine Rare /hpf; Nitrite,Urine Negative (Negative); PH, Urine 5.5 (5.0-8.0); Protein,Urine Negative (Negative); RBC,Urine 3 /hpf (0-5); Specific Gravity,Urine 1.022 (1.001-1.035); Urobilinogen,Urine <2.0 mg/dL (<2.0); WBC,Urine >182 /hpf (0-5)
[2019-03-27 16:43] LABS: Glucose,Whole Blood 182 mg/dL (75-99)
[2019-03-27 20:31] LABS: Glucose,Whole Blood 189 mg/dL (75-99)
[2019-03-27] MEDS ORDERED: MUPIROCIN 2% OINT 22 GM TUBE NASAL SCH (21:00)
[2019-03-27] MEDS: ALPRAZolam 0.25 MG TAB PO PRN (21:35)
[2019-03-28 06:31] LABS: Glucose,Whole Blood 97 mg/dL (75-99)
[2019-03-28] MEDS: INSULIN ASPART (NovoLOG) 100 UNIT/ML VIAL SQ SCH ×7 (06:47→20:58)
[2019-03-28 06:50] LABS: INR 1.1 (<1.2); Partial Thromboplastin Time 22.8 sec (22.0-30.0); Prothrombin Time 11.6 sec (9.0-12.0)
[2019-03-28 06:55] LABS: Albumin 2.9 g/dL (3.5-5.0); Calcium 9.2 mg/dL (8.4-10.2); Magnesium 1.8 mg/dL (1.6-2.3); Potassium 4.1 mmol/L (3.5-5.1); Total Bilirubin 1.1 mg/dL (0.2-1.3)
[2019-03-28 07:18] LABS: Basophils % (A) 0 %; Eosinophils % (A) 0 %; HCT 38.9 % (34.0-46.0); HGB 12.3 gm/dL (11.4-16.0); Lymphocytes # (A) 1.1 k/uL (1.0-4.8); Lymphocytes % (A) 11 %; MCH 31.1 pg (25.0-35.0); MCHC 31.6 g/dL (31.0-37.0); MCV 98.6 fL (80.0-100.0); Mean Platelet Volume 7.2; Monocytes # (A) 0.7 k/uL (0-1.0); Monocytes % (A) 7 %; Neutrophils # (A) 8.4 k/uL (1.3-7.7); Neutrophils % (A) 81 %; Platelet Count 342 k/uL (150-450); RBC 3.94 m/uL (3.80-5.40); RDW 14.3 % (11.5-15.5); WBC 10.3 k/uL (3.8-10.6)
[2019-03-28] MEDS: IPRATROPIUM-ALBUTEROL 3 ML NEB INHALATION PRN ×4 (08:40→20:02)
[2019-03-28] MEDS ORDERED: ATORVASTATIN 40 MG TAB PO SCH (09:00)
[2019-03-28] MEDS ORDERED: ASPIRIN 81 MG PO SCH (09:00)
[2019-03-28] MEDS: ESCITALOPRAM 10 MG TAB PO SCH (09:06)
[2019-03-28] MEDS: hydrALAZINE HCL 25 MG TAB PO SCH ×3 (09:06→20:50)
[2019-03-28] MEDS: POTASSIUM CHLORIDE ER 20 MEQ TAB.ER PO SCH (09:06)
[2019-03-28] MEDS: guaiFENesin 600 MG TABLET.ER PO SCH ×2 (09:06→20:50)
[2019-03-28] MEDS: FAMOTIDINE 20 MG TAB PO SCH (09:06)
[2019-03-28] MEDS: predniSONE 10 MG TAB PO SCH (09:07)
[2019-03-28] MEDS: DONEPEZIL 5 MG TAB PO SCH (09:07)
[2019-03-28] MEDS ORDERED: FUROSEMIDE 40 MG TAB PO STA (09:16)
[2019-03-28] MEDS: INSULIN NPH 300 UNIT/3 ML VIAL SQ SCH ×2 (09:17→20:57)
[2019-03-28] MEDS: HEPARIN SODIUM,PORCINE 5,000 UNIT/ML 1 ML VIAL SQ SCH ×2 (09:18→20:50)
--- NOTE | 2019-03-28 11:16 | P.PN ---
Subjective Progress Note Date: 03/28/19 Principal diagnosis: Acute exacerbation of chronic congestive heart failure This is a 89-year-old female patient of Dr. Sales, with known history of valvular heart disease, severe mitral regurgitation, and moderate aortic stenosis, hypertension, hyperlipidemia, chronic congestive heart failure, previous myocardial infarction with stenting of the LAD in November 2017, type 2 diabetes mellitus, who was recently hospitalized for acute exacerbation of congestive heart failure with systolic dysfunction, and non-ST segment elevated myocardial infarction. Echocardiogram was completed during that admission and showed ejection fraction of 35-40%. Patient was discharged home on 03/15/2019, on oral Lasix of 40 mg twice daily. Patient was brought to the hospital on 03/20/2019 for complaints of worsening shortness of breath, patient woke up out of her sleep and couldn't breathe, was having some chest pain that responded to sublingual nitro, vision also had episode of unresponsiveness at home. Patient had some episodes of emesis at home, did have some chills, but was afebrile. Chest x-ray was completed showing persistent central vascular congestion and bibasilar opacities/bilateral pleural effusions. Patient did have some hypotension, apparently she was a bit dehydrated from vomiting. Did have some abdominal discomfort across the upper abdomen, but abdomen is soft, no diarrhea. She was given the a liter bolus in the emergency department, she was in significant respiratory distress, and blood gas was obtained showing pO2 of 73, pCO2 of 39, pH of 7.41 this was done on FiO2 100%, patient was placed on BiPAP support. She was started on IV diuretics, antibiotics, breathing treatments. Labs did not show any evidence of leukocytosis, admission labs showed a white blood cell count of 10.4, hemoglobin of 10.1, electrolytes are within normal limits, BUN is 29 creatinine was 1.1 and renal profile has increased on today's labs, with B1 up to 42 and creatinine of 1.6. Her BNP was 12,400, troponin was negative at 0.021. Urinalysis was negative, and urine drug screen was negative. During my exam patient is seen still on BiPAP, but she has been able to tolera te periods on the high flow nasal cannula, she has 1+ pitting edema in lower extremities, lung sounds reveal diminished breath sounds bilaterally with fine rales at the bases. No further episodes of nausea and vomiting. No complaints of chest pain, cardiology is following, EKG showed a sinus rhythm with left bundle branch block and nonspecific STT wave changes On 03/22/2019 patient seen in follow-up on selective care unit, she is currently off BiPAP, she did wear it through the night, he is currently on 15 L of oxygen per high flow nasal cannula and her pulse ox is 88-89%, she is afebrile, she denies any chest pain, she is diuresing, her lower extremity edema is improving, lung sounds are positive for MRSA breath sounds with rales at the bases, she states she is dyspneic on today's exam, follow-up chest x-ray was obtained today shows bilateral infiltrates and pleural effusions, relatively stable, maybe slightly progressed. In negative fluid balance. Today's labs have been reviewe d, and showed no leukocytosis, with blood cell count is 8.7, hemoglobin is 9.7, sodium is 136, potassium is 4.4, chloride is 105, CO2 is 20, B1 is 55 and creatinine is 1.72, and renal profile is slightly worse on on today's labs. She remains on IV Lasix at 40 mg every 12 hours, she is on breathing treatments and IV steroids. On 03/23/2019 patient seen in follow-up on selective care unit. She is awake and alert, sitting up in the recliner, her oxygenation is improving, she remains on 15 L high flow oxygen with pulse ox of 94%, she says she is less dyspneic, in lower extremity edema is improving, follow-up chest x-ray from yesterday was reviewed, and showed bilateral infiltrates and pleural effusions related to history of CHF. She remains on IV Lasix at 40 mg every 12 hours, and today's lab work shows a woman of her renal profile with BUN at 52 and creatinine of 1.29. Patient is in -3400 cc fluid balance. Denies any chest pain, hemodynamics remained stable, no fever or chills, cardiology is considering possibility of transesophageal echocardiogram for evaluation of mitral valve d isease, and aortic valve stenosis. There is a possibility of heart catheterization once her fluid that is improved, her respiratory status stabilizes. On 03/24/2019 patient seen in follow-up on the selective care unit. Patient apparently had episode of chest discomfort last night, increased shortness of breath, stat chest x-ray was obtained showing changes of fluid overload, congestive heart failure which was actually slightly improved from the previous chest x-ray, nevertheless patient was given an extra dose of IV Lasix, and subsequently her breathing had improved. On today's exam she is sitting up in the recliner, currently on 2 L per high flow nasal cannula, lung sounds reveal fine bibasilar crackles, no rhonchi or wheezes, no complaints of chest pain. Vital signs are stable, today's lab work has been reviewed showing electrolytes within normal limits, and further improvement in patient's renal profile with BUN of 45 and creatinine of 0.94. No fever, no chills, patient remains on IV diuretics, and breathing treatments, will await further recommendations from cardiology. On 03/26/2019 patient seen in follow-up on care unit, FiO2 is down to 4 L, and her pulse ox is 98%, no complaints of chest pain, she states her breathing continues to improve, lung sounds are clear, diminished at the bases, patient is afebrile. No lower extremity edema. Patient remains on IV Lasix at 40 mg every 12 hours. Renal profile continues to improve, B1 is 33, creatinine 0.83. No CBC was done today. No cough or congestion. Will await further recommendations from cardiology 03/27/2019 patient seen in follow-up on selective care unit, she has just returned from a transesophageal echocardiogram in the cardiac catheterization. In the cardiac catheterization there was severe disease involving the mid shaft of the left main discovered, and patent stent in the mid LAD. Transesophageal echocardiogram showed impaired left ventricular function with ejection fraction of 35% with inferior hypokinesia, trileaflet aortic valve with evidence of aortic sclerosis and moderate stenosis by gradient, thickened mitral valve leaflets with moderate mitral regurgitation only, mild to moderate tricuspid regurgitation and no evidence of pericardial effusion. Overall patient is breathing easier, she continues to diurese, she is currently on 2 L of oxygen sats of 95%, she is afebrile. Continues is on IV Lasix at 40 mg every 12 hours, no new blood work today. On 03/28/2019 patient seen in follow-up on selective care unit, she remains on 2 L of oxygen, she states her breathing continues to improve, her pulse ox is 97%, no complaints of chest pain, and constipation by CT surgery and she was told she is not a surgical candidate, for bypass surgery, and the plan is to proceed with stenting of the left main sometime tomorrow. Vital signs remain stable, patient has been transitioned to oral diuretics, CBC was unremarkable, sodium was 138, potassium is 4.1, chloride was 102, CO2 was 32, BUN is 25 creatinine 0.80. Objective - Vital Signs Vital signs: Vital Signs Temp 98.4 F 03/28/19 08:00 Pulse 84 03/28/19 08:56 Resp 16 03/28/19 08:00 BP 134/73 03/28/19 08:00 Pulse Ox 97 03/28/19 08:46 Intake & Output 03/27/19 03/28/19 03/28/19 18:59 06:59 18:59 Intake Total 650 240 Output Total 900 1200 400 Balance -250 -1200 -160 Weight 69 kg Intake: IV 650 Sodium Chloride 0.9% 1, 450 000 ml @ 75 mls/hr IV . [id number] Rx#:[id number] Oral 0 240 Output: Urine 900 1200 400 Uretheral (Sunshine) 200 Other: Voiding Method Indwelling Catheter Indwelling Catheter Indwelling Catheter - Exam GENERAL EXAM: Alert, wasn't, 89-year-old white female, on 2 L per high flow nasal cannula pulse ox of 98% HEAD: Normocephalic/atraumatic. EYES: Normal reaction of pupils, equal size. Conjunctiva pink, sclera white. NOSE: Clear with pink turbinates. THROAT: No erythema or exudates. NECK: No masses, no JVD, no thyroid enlargement, no adenopathy. CHEST: No chest wall deformity. Symmetrical expansion. LUNGS: Equal air entry with diminished breath sounds CVS: Regular rate and rhythm, normal S1 and S2, no gallops, no murmurs, no rubs ABDOMEN: Soft, nontender. No hepatosplenomegaly, normal bowel sounds, no guarding or rigidity. EXTREMITIES: No clubbing, 1+ edema bilateral lower extremities, no cyanosis, 2+ pulses and upper and lower extremities. MUSCULOSKELETAL: Muscle strength and tone normal. SPINE: No scoliosis or deformity SKIN: No rashes CENTRAL NERVOUS SYSTEM: Alert and oriented -3. No focal deficits, tone is normal in all 4 extremities. PSYCHIATRIC: Alert and oriented -3. Appropriate affect. Intact judgment and insight. - Labs CBC & Chem 7: 03/28/19 05:30 03/28/19 05:30 Labs: Abnormal Lab Results - Last 24 Hours (Table) 03/27/19 03/27/19 03/27/19 Range/Units 11:56 16:24 16:41 Neutrophils # (1.3-7.7) k/uL Carbon Dioxide (22-30) mmol/L BUN (7-17) mg/dL POC Glucose (mg/dL) 126 H 182 H (75-99) mg/dL Total Protein (6.3-8.2) g/dL Albumin (3.5-5.0) g/dL Urine Appearance Cloudy H (Clear) Ur Leukocyte Esterase Large H (Negative) Urine WBC >182 H (0-5) /hpf Urine WBC Clumps Occasional H (None) /hpf Amorphous Sediment Rare H (None) /hpf Urine Mucus Rare H (None) /hpf 03/27/19 03/28/19 03/28/19 Range/Units 20:26 05:30 05:30 Neutrophils # 8.4 H (1.3-7.7) k/uL Carbon Dioxide 32 H (22-30) mmol/L BUN 25 H (7-17) mg/dL POC Glucose (mg/dL) 189 H (75-99) mg/dL Total Protein 5.0 L (6.3-8.2) g/dL Albumin 2.9 L (3.5-5.0) g/dL Urine Appearance (Clear) Ur Leukocyte Esterase (Negative) Urine WBC (0-5) /hpf Urine WBC Clumps (None) /hpf Amorphous Sediment (None) /hpf Urine Mucus (None) /hpf Microbiology - Last 24 Hours (Table) 03/27/19 16:24 Urine Culture - Preliminary Urine,Catheterized 03/27/19 13:06 Nasal Screen MRSA/MSSA - Preliminary Nasal Swab Assessment and Plan Plan: Assessment: #1. Acute hypoxemic respiratory failure related to acute exacerbation of congestive heart failure with systolic dysfunction. Chest x-ray showed pulmonary edema, small bilateral pleural effusions #2. Nausea and vomiting at home, dehydration, resolved #3. Hypotension related to poor oral intake, nausea and vomiting, fluid resuscitated, with improvement in the blood pressure #4. Episode of unresponsiveness at home, brain CT showed no acute intracranial findings, showed moderate diffuse age-related cerebral atrophy and chronic small vessel ischemic changes #5. Acute kidney injury, likely related to ATN, diuretics, nausea and vomiting, resolved #6. Valvular heart disease, severe mitral regurgitation, and moderate aortic stenosis #7. Recent hospitalization for acute exacerbation of CHF and a urinary tract infection #8. Previous episode of GI bleeding #9. History of coronary artery disease with the stenting in November 2017 #10. Diabetes mellitus type 2 #11. Hypertention, hyperlipidemia #12. Previous history of bilateral thoracentesis, in December 2018, with removal of 800 mL from the left and 1300 mL from the right pleural effusion cytology was negative, pleural fluid cultures were negative, and analysis showed transudative fluid consistent with history of congestive heart failure #13. Coronary artery disease with severe left main disease #14. Ischemic cardiomyopathy and the transesophageal echocardiogram revealed impaired left ventricle systolic function with an EF of 35% Plan: Breathing is improving, remains on diuretics, which have been transitioned to oral Lasix, she is maintaining negative fluid balance, lung sounds are clear, patient was found to be not a surgical candidate for bypass surgery, and cardiology discussed the possibility of coronary stenting. I performed a history & physical examination of the patient and discussed their management with my nurse practitioner, Earline Dumas. I reviewed the nurse practitioner's note and agree with the documented findings and plan of care. Lung sounds are positive for diminished breath sounds with bibasilar crackles. The findings and the impression was discussed with the patient. I attest to the documentation by the nurse practitioner. Time with Patient: Less than 30
[2019-03-28 11:46] LABS: Glucose,Whole Blood 174 mg/dL (75-99)
[2019-03-28] MEDS: ISOSORBIDE MONONITRATE ER 30 MG TAB.ER.24H PO SCH (12:19)
--- NOTE | 2019-03-28 13:55 | PN ---
PROGRESS NOTE Mrs. Mcclain is an 89-year-old female with a history of coronary artery disease who presented with symptoms of dyspnea, underwent cardiac catheterization by Dr. Otto yesterday, was found to have significant left main disease. She underwent transesophageal echocardiogram at the same time, was found to have an ejection fraction 35% to 40% with a moderate aortic stenosis and moderate mitral regurgitation. She is scheduled to undergo left main angioplasty and stenting tomorrow. She is feeling well today. Her breathing is stable. She is denying any chest pain. She denies any dizziness or palpitation. She denies any nausea. She continues to be at this time on aspirin once a day, Lipitor 40 mg daily, Lexapro, Lasix 40 mg twice a day, hydralazine 25 mg three times a day, insulin, isosorbide mononitrate. PHYSICAL EXAMINATION: Blood pressure running in the 130s/70 with a heart rate in the 80s. LUNGS: Clear. HEART: Regular rate and rhythm, S1, S2. No S3 with systolic ejection murmur. No rub. ABDOMEN: Soft, nontender. EXTREMITIES: No edema. LAB DATA: BUN and creatinine 25 and 0.8, potassium 4.1, hemoglobin 12.3. IMPRESSION: 1. Significant left main disease. 2. Status post stenting of the left anterior descending artery on prior admission. 3. Moderate aortic stenosis and moderate mitral regurgitation. 4. Prior history of congestive heart failure. RECOMMENDATION: Patient will undergo the stenting of the left main tomorrow. Depending on her progress, further recommendation will be made. MMODL / IJN: [id number] /
[2019-03-28 14:12] VITALS: BMI 29.7
[2019-03-28 15:09] LABS: Hepatitis A Antibody IgM Non-Reactive (Non-Reactive); Hepatitis B Core IgM Non-Reactive (Non-Reactive)
--- NOTE | 2019-03-28 15:20 | P.PN ---
Subjective Progress Note Date: 03/28/19 89-year-old female one of Dr. Sales discharge on 03/15 with past medical history of systolic congestive heart failure, severe mitral regurgitation, moderate aortic stenosis, hypertension, chronic kidney disease stage III, type 2 diabetes, memory loss mostly is examined disease, known coronary artery disease, recurrent depression, hyperlipidemia who was just discharged a week ago after being treated for CHF exacerbation and NSTEMI. According to the daughter bedside patient became nonverbal and unresponsive and was brought to the ER. On evaluation in the ER patient was only responsive to painful stimulus. Within few minutes patient recovered and was oriented 3. Brain CT was negative for any new strokes. Venous blood gas was unremarkable. Labs ordered suggestive of hemoglobin of 10.1 stable as compared to the previous labs, BUN/creatinine 29 and creatinine 1.1, glucose 220 6B UN 29, BNP 12,400, troponin 0.021. Echo obtained during last admission suggest EF of 35-40% with apical inferior lateral hypokinesia. Cardiology and and pulmonary was consulted. Chest x-ray suggestive of pulmonary venous congestion and cardiomegaly. The daughter bedside and was not relating to give Lasix to the patient. On evaluation in the ER patient was currently on 6 L of oxygen saturating well but very short of breath trying to catch her breath on 6 L with symptoms positive for paroxysmal nocturnal dyspnea, orthopnea with bilateral lower extremity edema, no fever no chills no cough production. White is obtained suggest night temp of 98.6, pulse 82 respiratory rate 20 blood pressure 146/72 saturating at 91% On 6 L spelled since patient was short of breath on 6 L patient was switched to a nonrebreather and will be monitored overnight in the ICU 03/21: Patient is seen on the cardiac stepdown unit. She has been seen by cardiology with recommendations to resume her home diuretics and stop the IV Lasix, gradually resume beta giselle and consider adding Aldactone. Norvasc was discontinued. Patient has been afebrile, heart rate in the 70s, blood pressure 107/63, patient was on BiPAP and currently on nasal cannula high flow at 9 L. Repeat lab work reveals white count is 8.4, hemoglobin 10.7. Renal function has increased with a BUN of 42 and creatinine 1.68. Blood sugars are running between 181 and 210. The patient continues to have wheezing we will decrease her Solu-Medrol to 40 mg every 8 hours. Breathing is improved from yesterday. She denies having any abdominal pain. She is complaining of some left-sided chest pain that is tender to palpation. She denies any palpitations. She has a Sunshine catheter in place and diuresing well. Weight is down 3 kg. 03/22: The patient has been afebrile, heart rate in the 80s and 90s, blood pressure 120/48, patient is currently on high flow nasal cannula at 15 L pulse oxing 88-90%. WBC 8.7, hemoglobin 9.7. Sodium 136, potassium 4.4, chloride 105, CO2 20, BUN 55 and creatinine 1.7 to. Blood sugar this morning was 216. Solu-Medrol has been decreased to 40 every 12 hours by pulmonary medicine. Patient to use BiPAP as needed. Patient is also seen and followed by Dr. Farmer and Lasix was changed to IV. She is currently on IV Lasix 40 mg every 12 hours. Discussed CODE STATUS with the patient in depth and she wishes to be a full code and intubated if necessary. Patient's prognosis is poor. Patient and daughter to talk with cardiology regarding options regarding surgery and heart catheterization. Patient does not appear to be a surgical candidate and prognosis is poor. 03/23: Patient is afebrile, heart rate in the 90s, blood pressure 132/63, pulse ox 94% on 15 L nasal cannula. WBC is 11.3, hemoglobin 10.6. Sodium 134, potassium 5.1, chloride 105, CO2 21, BUN 52 and creatinine 1.29, blood sugars running be tween 128 and 221. Repeat chest x-ray reveals bilateral infiltrate and pleural effusions correlate for heart failure. Patient states that her breathing is improved today. She has no pedal edema. Sunshine catheter is draining clear shiv urine. Oxygen time of eval is down 8 L. She is currently on Solu-Medrol at 40 mg every 12 hours and IV Lasix 40 mg every 12. 03/24: The patient developed flash pulmonary edema yesterday and chest pain and was started on nitroglycerin sublingual and received extra dose of Lasix. She was also placed on BiPAP overnight. She is currently on 10 L high flow nasal cannula and pulse oxing 96%. Cardiology is planning for heart catheterization and SALO on Wednesday. Patient is continued on IV Lasix 40 mg twice daily. She has been afebrile, heart rate in the 90s. Blood sugars have been elevated at 189- 260 and patient was started last evening on NovoLog scheduled with meals and NPH 10 units twice daily. Patient's daughter is at the bedside and has been updat ed. 03/25: Patient is sitting up in bed resting comfortably today without any complaints or concerns. She is awake alert and in no acute distress. She is still requiring 10 L of high flow nasal cannula to maintain O2 saturations in the 90s. Patient continues to be afebrile. Hemodynamically stable. W BC 9.9, hemoglobin 11.7. BUN has improved to 38, creatinine 0.92, GFR 56. Patient continues to be on IV Lasix 40 mg twice a day. 03/26: Patient is sitting up in bed resting comfortably without any complaints. She is awake and alert with no acute distress. She continues to require high flow oxygen via nasal cannula to maintain O2 saturations. Patient continues to be afebrile. Hemodynamically stable. Patient is able to tolerate lying flat she will proceed with a cardiac catheterization and transesophageal echocardiogram tomorrow. Creatinine has improved to 0.83, BUN 33 03/27: SALO reveals EF 35%, moderate aortic stenosis, [id number] tricuspid regurgitation, moderate mitral regurgitation, no pericardial effusion. Heart catheterization performed by Dr. Otto as well finding severe disease involving the mid shaft of the left main, patent stent in the LAD. [facility] for evaluation of CABG. Patient's O2 needs have significantly improved and she is pulse oxing 95-97% on 2 L nasal cannula. Patient is resting comfortably in bed. Heart rate in the 70s and 80s, blood pressure 105/57 and patient has been afebrile. Blood sugars are running between 114 and 144. Repeat chest x-ray done this morning shows stable findings suggestive of COPD and bilateral lower lobe infiltrates. 03/28: Patient denies any new complaints. Her breathing is stable. Susnhine catheter will be discontinued today. Urinalysis was sent last night and found to be cloudy with leukoesterase large, WBCs greater than 182 and patient started on IV Rocephin for UTI. Patient is scheduled with cardiology for stent placement tomorrow in the LAD. She is currently pulse oxing 97% on 2 L nasal cannula. Patient's daughter has communicated that she will not be able to take the patient home until Wednesday. Review Of Systems: Constitutional: No fever, no chills, no night sweats. No weight change. No weakness, fatigue or lethargy. EENT: No headache. No blurred vision or double vision, no loss of vision. No loss of Hearing, no ringing in the ears, no dizziness. No nasal drainage or congestion. No epistaxis. No sore throat. Lungs: Reports decreased exercise tolerance, denies dyspnea, uses 2-3 L home oxygen No cough, no sputum production. No wheezing. Cardiovascular: No chest pain, reports lower extremity edema. No palpitations. No paroxysmal nocturnal dyspnea. No orthopnea. No lightheadedness or dizziness. No syncopal episodes. Abdominal: no abdominal discomfort. No nausea, vomiting. no diarrhea. No constipation. No bloody or tarry stools. improved loss of appetite. Genitourinary: No dysuria, increased frequency, urgency. No urinary retention. Musculoskeletal: No myalgias. No muscle weakness, no gait dysfunction, no frequent falls. No back pain. No neck pain. Integumentary: No wounds, no lesions. No rash or pruritus. No unusual bruisi ng. No change in hair or nails. Neurologic: No aphasia. No facial droop. No change in mentation. No head injury. No headache. No paralysis. No paresthesia. Psychiatric: No depression. No anxiety. No mood swings. Endocrine: No abnormal blood sugars. No weight change. No excessive sweating or thirst. Objective - Vital Signs Vital signs: Vital Signs Temp 98.4 F 03/28/19 08:00 Pulse 84 03/28/19 08:56 Resp 16 03/28/19 08:00 BP 134/73 03/28/19 08:00 Pulse Ox 97 03/28/19 08:46 Intake & Output 03/27/19 03/28/19 03/28/19 18:59 06:59 18:59 Intake Total 650 240 Output Total 900 1200 Balance -250 -1200 240 Weight 69 kg Intake: IV 650 Sodium Chloride 0.9% 1, 450 000 ml @ 75 mls/hr IV . [id number] [facility] Rx#:[id number] Oral 0 240 Output: Urine 900 1200 Other: Voiding Method Indwelling Catheter Indwelling Catheter - Exam General appearance: cooperative, no acute distress and appears comfortable, obese - EENT Eyes: anicteric sclerae, PERRLA, normal appearance ENT: hearing grossly normal - Neck Neck: no lymphadenopathy, normal ROM, no other, no rigidity, no stridor, no thyromegaly - Respiratory Respiratory: bilateral: Diminished bases bilaterally - Cardiovascular Rhythm: regular Heart sounds: normal: S1, S2 Abnormal Heart Sounds: 3/6 systolic murmur left lateral sternal border, no diastolic murmur, no rub, no S3 Gallop, no S4 Gallop, no click, no other No pedal edema - Gastrointestinal General gastrointestinal: normal bowel sounds, soft Sunshine with clear shiv urine--to be removed - Integumentary Integumentary: no rash - Neurologic Neurologic: CNII-XII intact - Musculoskeletal Musculoskeletal: Gait not assessed strength equal bilaterally - Psychiatric Psychiatric: A&O x's 3, appropriate affect - Labs CBC & Chem 7: 03/28/19 05:30 03/28/19 05:30 Labs: Abnormal Lab Results - Last 24 Hours (Table) 03/27/19 03/27/19 03/27/19 Range/Units 11:56 16:24 16:41 Neutrophils # (1.3-7.7) k/uL Carbon Dioxide (22-30) mmol/L BUN (7-17) mg/dL POC Glucose (mg/dL) 126 H 182 H (75-99) mg/dL Total Protein (6.3-8.2) g/dL Albumin (3.5-5.0) g/dL Urine Appearance Cloudy H (Clear) Ur Leukocyte Esterase Large H (Negative) Urine WBC >182 H (0-5) /hpf Urine WBC Clumps Occasional H (None) /hpf Amorphous Sediment Rare H (None) /hpf Urine Mucus Rare H (None) /hpf 03/27/19 03/28/19 03/28/19 Range/Units 20:26 05:30 05:30 Neutrophils # 8.4 H (1.3-7.7) k/uL Carbon Dioxide 32 H (22-30) mmol/L BUN 25 H (7-17) mg/dL POC Glucose (mg/dL) 189 H (75-99) mg/dL Total Protein 5.0 L (6.3-8.2) g/dL Albumin 2.9 L (3.5-5.0) g/dL Urine Appearance (Clear) Ur Leukocyte Esterase (Negative) Urine WBC (0-5) /hpf Urine WBC Clumps (None) /hpf Amorphous Sediment (None) /hpf Urine Mucus (None) /hpf Microbiology - Last 24 Hours (Table) 03/27/19 16:24 Urine Culture - Preliminary Urine,Catheterized 03/27/19 13:06 Nasal Screen MRSA/MSSA - Preliminary Nasal Swab Assessment and Plan Plan: 1 acute on chronic hypoxic respiratory failure secondary to acute on chronic systolic heart failure, moderate aortic stenosis, severe mitral regurgitation, bilateral pleural effusions. Cardiology consult appreciated. Currently on IV Lasix 40 mg twice daily. Continue Ranexa 1000 mg twice daily, Imdur 30 mg daily. I&O and daily weights. Monitor renal function and electrolytes. Status post Heart catheterization and SALO. Cardiothoracic surgeon consult. Patient is scheduled for stent placement on Wednesday. 2 acute on chronic hypoxic respiratory failure. Home oxygen is up to 4 L. 3 bilateral pleural effusion: No need for thoracentesis. 4 hypertension. Norvasc discontinued. Continue hydralazine 25 mg 3 times daily, Imdur 30 mg daily, Lopressor is currently on hold. 5 chronic kidney disease stage 3. Nephrology consult. 6 type 2 diabetes. Continue NovoLog scale before meals and at bedtime, hold Tradjenta. 7 non-ST segment elevation myocardial infarction on previous admission. Continue aspirin 81 mg daily, Lipitor, beta giselle to be resumed slowly per cardiology. 8 memory loss: Most likely Alzheimer disease, patient remain on galantamine 4 mg twice a day, Aricept 5 mg daily. 9 history of coronary artery disease. 10 recurrent depression: Patient has been on Lexapro 10 mg a day. 11 hyperlipidemia: Remain on Lipitor 40 mg daily. 12 urinary tract infection, Sunshine catheter will be removed. Patient started on Rocephin. Urine culture in progress. DVT prophylaxis with heparin every 12. GI prophylaxis. Pepcid 20 mg daily. Discharge plan: Most likely home with [facility] care on Wednesday Impression and plan of care have been directed as dictated by the signing physician. Donita Padron nurse practitioner acting as scribe for signing physician.
[2019-03-28 16:33] LABS: Glucose,Whole Blood 209 mg/dL (75-99)
[2019-03-28] MEDS: FUROSEMIDE 40 MG TAB PO SCH (16:53)
[2019-03-28] MEDS: FUROSEMIDE 10 MG/ML 4 ML VIAL IV SCH (19:35)
[2019-03-28] MEDS: ALPRAZolam 0.25 MG TAB PO PRN (20:50)
[2019-03-28 20:54] LABS: Glucose,Whole Blood 170 mg/dL (75-99)
--- NOTE | 2019-03-28 22:06 | PN ---
PROGRESS NOTE Patient is seen for followup for acute kidney injury which has now resolved. Patient did have a cardiac catheterization done yesterday which showed severe disease in the mid shaft of the left main. Patient was evaluated by Cardiothoracic Surgery, and at this time plan is for PTCA and stent placement. Serum creatinine has been at 0.8 mg/dL for the past 2 to 3 days. On examination this morning, blood pressure was 134/73, heart rate of 80 per minute. Patient is afebrile. EXAMINATION OF THE HEART: S1 and S2. EXAMINATION OF LUNGS: Bilateral breath sounds are heard. Decreased breath sounds at the bases. ABDOMEN: Soft, non-tender. Examination of lower extremities shows no significant edema. Labs show sodium 138, potassium 4.1, hemoglobin 12.3 g/dL. ASSESSMENT: 1. Acute kidney injury secondary to hypotension and hypoperfusion, currently improved. 2. Congestive heart failure, acute on top of chronic, mainly systolic, now improved. 3. Cardiomyopathy, ejection fraction of about 35%. 4. Mitral valve regurgitation. 5. Coronary artery disease, status post cardiac catheterization, with plans for coronary artery stenting. PLAN: Agree with switching Lasix to p.o. Continue to monitor renal function. MMODL / IJN: [id number] /
[2019-03-29] MEDS: ISOSORBIDE MONONITRATE ER 30 MG TAB.ER.24H PO SCH (05:53)
[2019-03-29] MEDS: FAMOTIDINE 20 MG TAB PO SCH (05:53)
[2019-03-29] MEDS: hydrALAZINE HCL 25 MG TAB PO SCH ×3 (05:53→23:19)
[2019-03-29] MEDS: INSULIN ASPART (NovoLOG) 100 UNIT/ML VIAL SQ SCH ×7 (05:54→21:04)
[2019-03-29 05:57] LABS: Glucose,Whole Blood 124 mg/dL (75-99)
[2019-03-29] MEDS ORDERED: ATORVASTATIN 80 MG TAB PO ONE (06:00)
[2019-03-29] MEDS ORDERED: ASPIRIN 325 MG TAB PO ONE (06:00)
[2019-03-29] MEDS: IPRATROPIUM-ALBUTEROL 3 ML NEB INHALATION PRN (08:45)
[2019-03-29] MEDS: DONEPEZIL 5 MG TAB PO SCH (08:51)
[2019-03-29] MEDS: predniSONE 10 MG TAB PO SCH (08:51)
[2019-03-29] MEDS: ESCITALOPRAM 10 MG TAB PO SCH (08:52)
[2019-03-29] MEDS: POTASSIUM CHLORIDE ER 20 MEQ TAB.ER PO SCH (08:52)
[2019-03-29] MEDS: guaiFENesin 600 MG TABLET.ER PO SCH ×2 (08:52→20:45)
[2019-03-29] MEDS: HEPARIN SODIUM,PORCINE 5,000 UNIT/ML 1 ML VIAL SQ SCH ×2 (08:52→20:52)
[2019-03-29] MEDS ORDERED: IV FLUID CONTINUATION 1,000 ML IV ONE (10:20)
[2019-03-29] MEDS: MIDAZOLAM (PF) 2 MG/2 ML VIAL IVP ONE ×2 (10:48→11:15)
[2019-03-29] MEDS: LIDOCAINE 1% INJ 10MG/ML (20 ML MDV) SQ ONE ×3 (10:50→11:17)
[2019-03-29] MEDS: VERAPAMIL SYRINGE (5 MG/10 ML) INTRAARTER ONE ×2 (11:19→12:15)
[2019-03-29] MEDS ORDERED: BIVALIRUDIN BOLUS 250 MG/50 ML IV ONE ×2 (11:28)
[2019-03-29] MEDS ORDERED: BIVALIRUDIN 250 MG in SODIUM CHLORIDE 0.9% 50 ML IV ONE (11:29)
[2019-03-29] MEDS ORDERED: CLOPIDOGREL 75 MG TAB PO ONE (12:02)
[2019-03-29] MEDS ORDERED: IOPAMIDOL-370 125ML BTL INJ ONE (12:04)
[2019-03-29] MEDS ORDERED: ATROPINE SULFATE 0.1 MG/ML 10ML SYRINGE IV PRN (12:27)
[2019-03-29] MEDS ORDERED: ZOLPIDEM 5 MG TAB PO PRN (12:27)
[2019-03-29] MEDS ORDERED: RX INFO: IV CONTRAST WAS GIVEN 1 EACH MISC MISCELLANE PRN (12:27)
[2019-03-29] MEDS ORDERED: NITROGLYCERIN SL TABS 0.4 MG TAB SUBLINGUAL PRN (12:27)
[2019-03-29] MEDS ORDERED: MAG HYDROX/AL HYDROX/SIMETH 30 ML CUP PO PRN (12:27)
[2019-03-29] MEDS ORDERED: SODIUM CHLORIDE 0.9% 1,000 ML IV SCH (12:30)
--- NOTE | 2019-03-29 12:56 | LTR ---
2018 Re: Tracy Sarahi Dear Dr. Sales: Ms. Tracy Mcclain underwent successful stenting of the left main coronary artery with good angiographic results. Thank you for allowing us to participate in her care and please do not hesitate to call if you have any question or concern. Sincerely, MD ZION Arciniega / RUSLAN: [id number] /
--- NOTE | 2019-03-29 13:11 | PTCA ---
PERCUTANEOUSTRANS CORORONARY ANGIOGRAPHY DATE OF SERVICE: March 29, 2019 PERFORMING PHYSICIAN: Dean Otto MD. PROCEDURE: Successful stenting of unprotected left main coronary artery using 3.0 x 15 mm Xience drug-eluting stent with reduction of stenosis from 70% to 0% with adjunctive use of Impella. INDICATION: This is a pleasant 89-year-old female patient with known history of coronary artery disease and prior stenting of the LAD, who had multiple hospital admission with congestive heart failure recently. This admission, she underwent an echocardiogram which revealed cardiomyopathy as well as a moderate aortic stenosis and moderate mitral regurgitation. Subsequently, she underwent a heart catheterization which revealed severe disease involving the left main coronary artery. She did have stents in the LAD but the stents was patent. Because of the patient's age as well as being high risk for coronary artery bypass grafting we decided to pursue with left main stenting. APPROACH: 1. Right common femoral artery. 2. Left common femoral artery. 3. Right radial artery. COMPLICATION: None. LEVEL OF SEDATION: Moderate with sedation length of 91 minutes. PROCEDURE DESCRIPTION: After obtaining an informed consent, the patient was brought to the cardiac prosthetics lab technician. Initially I cannulated the right common femoral artery using micropuncture technique, the micropuncture wire passed easily then I could not advance an 0.035 wire across the left iliac artery. At that point, I realized that the left iliac artery was occluded. I did place only 4-Haitian sheath at that spot. Subsequently I cannulated the right common femoral artery using micropuncture technique, the micropuncture wire passed easily then I placed a 6-Haitian sheath 11 cm in the right common femoral artery. Subsequently, I cannulated the right radial artery using micropuncture technique, the micropuncture wire passed easily then I placed a 6-Haitian sheath in the right radial artery. After that, I did give the patient 2 mg of verapamil IA. At that point, anticoagulation was initiated using Angiomax. The patient was given bolus and drip per protocol. Subsequently I did deploy a 2 Perclose at 10 and 2 o'clock at the right common femoral artery where the 6-Haitian right common femoral sheath located. Then I did advance an 0.035 stiff wire to the aorta. I did dilate the right common femoral artery using 8, and then 10, before I placed a 12-Haitian sheath, which is in the left sheath. Subsequently I did cross the aortic valve using 0.035 J-wire with a 6-Haitian pigtail catheter. After that, I did exchange my 0.035 wire into 0.018 Impella wire using the 6- Haitian pigtail catheter. Then I did advance the under fluoroscopy guidance to the left ventricle. Subsequently, was turned on. After that, I did engage the left main using JL3 guide. I did wire the left main to the LAD using a whisper wire. After that, I did predilatation using 3.0 x 12 mm balloon before I deployed 3.0 x 15 mm Xience GABBY where the stent was positioned under fluoroscopy guidance and then it was deployed under its nominal pressure. After that I post dilated the stent using 3.25 mm NC balloon which was inflated under 16 atmospheres. The following angiogram showed excellent angiographic results and the procedure was completed without any complication. Because I was quite concerned about the right femoral artery I did deploy only the 10 o'clock Perclose and I left the 2 o'clock Perclose without deployment. Then I did exchange my 12 sheath into the into 7-Haitian sheath. We will do manual pressure on that sheath. The procedure was completed without any complication. POSTPROCEDURE MANAGEMENT: 1. Dual antiplatelet therapy. 2. Risk factors modifications. 3. Follow up with the patient. MMODL / IJN: [id number] /
[2019-03-29] MEDS: ACETAMINOPHEN TAB 325 MG TAB PO PRN (13:13)
[2019-03-29 13:37] LABS: Glucose,Whole Blood 223 mg/dL (75-99)
[2019-03-29] MEDS: FUROSEMIDE 40 MG TAB PO SCH ×2 (13:45→16:21)
[2019-03-29] MEDS: INSULIN NPH 300 UNIT/3 ML VIAL SQ SCH ×2 (13:48→21:05)
--- NOTE | 2019-03-29 14:42 | P.PN ---
Subjective Progress Note Date: 03/29/19 Principal diagnosis: Acute exacerbation of chronic congestive heart failure This is a 89-year-old female patient of Dr. Sales, with known history of valvular heart disease, severe mitral regurgitation, and moderate aortic stenosis, hypertension, hyperlipidemia, chronic congestive heart failure, previous myocardial infarction with stenting of the LAD in November 2017, type 2 diabetes mellitus, who was recently hospitalized for acute exacerbation of congestive heart failure with systolic dysfunction, and non-ST segment elevated myocardial infarction. Echocardiogram was completed during that admission and showed ejection fraction of 35-40%. Patient was discharged home on 03/15/2019, on oral Lasix of 40 mg twice daily. Patient was brought to the hospital on 03/20/2019 for complaints of worsening shortness of breath, patient woke up out of her sleep and couldn't breathe, was having some chest pain that responded to sublingual nitro, vision also had episode of unresponsiveness at home. Patient had some episodes of emesis at home, did have some chills, but was afebrile. Chest x-ray was completed showing persistent central vascular congestion and bibasilar opacities/bilateral pleural effusions. Patient did have some hypotension, apparently she was a bit dehydrated from vomiting. Did have some abdominal discomfort across the upper abdomen, but abdomen is soft, no diarrhea. She was given the a liter bolus in the emergency department, she was in significant respiratory distress, and blood gas was obtained showing pO2 of 73, pCO2 of 39, pH of 7.41 this was done on FiO2 100%, patient was placed on BiPAP support. She was started on IV diuretics, antibiotics, breathing treatments. Labs did not show any evidence of leukocytosis, admission labs showed a white blood cell count of 10.4, hemoglobin of 10.1, electrolytes are within normal limits, BUN is 29 creatinine was 1.1 and renal profile has increased on today's labs, with B1 up to 42 and creatinine of 1.6. Her BNP was 12,400, troponin was negative at 0.021. Urinalysis was negative, and urine drug screen was negative. During my exam patient is seen still on BiPAP, but she has been able to tolera te periods on the high flow nasal cannula, she has 1+ pitting edema in lower extremities, lung sounds reveal diminished breath sounds bilaterally with fine rales at the bases. No further episodes of nausea and vomiting. No complaints of chest pain, cardiology is following, EKG showed a sinus rhythm with left bundle branch block and nonspecific STT wave changes On 03/22/2019 patient seen in follow-up on selective care unit, she is currently off BiPAP, she did wear it through the night, he is currently on 15 L of oxygen per high flow nasal cannula and her pulse ox is 88-89%, she is afebrile, she denies any chest pain, she is diuresing, her lower extremity edema is improving, lung sounds are positive for MRSA breath sounds with rales at the bases, she states she is dyspneic on today's exam, follow-up chest x-ray was obtained today shows bilateral infiltrates and pleural effusions, relatively stable, maybe slightly progressed. In negative fluid balance. Today's labs have been reviewe d, and showed no leukocytosis, with blood cell count is 8.7, hemoglobin is 9.7, sodium is 136, potassium is 4.4, chloride is 105, CO2 is 20, B1 is 55 and creatinine is 1.72, and renal profile is slightly worse on on today's labs. She remains on IV Lasix at 40 mg every 12 hours, she is on breathing treatments and IV steroids. On 03/23/2019 patient seen in follow-up on selective care unit. She is awake and alert, sitting up in the recliner, her oxygenation is improving, she remains on 15 L high flow oxygen with pulse ox of 94%, she says she is less dyspneic, in lower extremity edema is improving, follow-up chest x-ray from yesterday was reviewed, and showed bilateral infiltrates and pleural effusions related to history of CHF. She remains on IV Lasix at 40 mg every 12 hours, and today's lab work shows a woman of her renal profile with BUN at 52 and creatinine of 1.29. Patient is in -3400 cc fluid balance. Denies any chest pain, hemodynamics remained stable, no fever or chills, cardiology is considering possibility of transesophageal echocardiogram for evaluation of mitral valve d isease, and aortic valve stenosis. There is a possibility of heart catheterization once her fluid that is improved, her respiratory status stabilizes. On 03/24/2019 patient seen in follow-up on the selective care unit. Patient apparently had episode of chest discomfort last night, increased shortness of breath, stat chest x-ray was obtained showing changes of fluid overload, congestive heart failure which was actually slightly improved from the previous chest x-ray, nevertheless patient was given an extra dose of IV Lasix, and subsequently her breathing had improved. On today's exam she is sitting up in the recliner, currently on 2 L per high flow nasal cannula, lung sounds reveal fine bibasilar crackles, no rhonchi or wheezes, no complaints of chest pain. Vital signs are stable, today's lab work has been reviewed showing electrolytes within normal limits, and further improvement in patient's renal profile with BUN of 45 and creatinine of 0.94. No fever, no chills, patient remains on IV diuretics, and breathing treatments, will await further recommendations from cardiology. On 03/26/2019 patient seen in follow-up on care unit, FiO2 is down to 4 L, and her pulse ox is 98%, no complaints of chest pain, she states her breathing continues to improve, lung sounds are clear, diminished at the bases, patient is afebrile. No lower extremity edema. Patient remains on IV Lasix at 40 mg every 12 hours. Renal profile continues to improve, B1 is 33, creatinine 0.83. No CBC was done today. No cough or congestion. Will await further recommendations from cardiology 03/27/2019 patient seen in follow-up on selective care unit, she has just returned from a transesophageal echocardiogram in the cardiac catheterization. In the cardiac catheterization there was severe disease involving the mid shaft of the left main discovered, and patent stent in the mid LAD. Transesophageal echocardiogram showed impaired left ventricular function with ejection fraction of 35% with inferior hypokinesia, trileaflet aortic valve with evidence of aortic sclerosis and moderate stenosis by gradient, thickened mitral valve leaflets with moderate mitral regurgitation only, mild to moderate tricuspid regurgitation and no evidence of pericardial effusion. Overall patient is breathing easier, she continues to diurese, she is currently on 2 L of oxygen sats of 95%, she is afebrile. Continues is on IV Lasix at 40 mg every 12 hours, no new blood work today. On 03/28/2019 patient seen in follow-up on selective care unit, she remains on 2 L of oxygen, she states her breathing continues to improve, her pulse ox is 97%, no complaints of chest pain, and constipation by CT surgery and she was told she is not a surgical candidate, for bypass surgery, and the plan is to proceed with stenting of the left main sometime tomorrow. Vital signs remain stable, patient has been transitioned to oral diuretics, CBC was unremarkable, sodium was 138, potassium is 4.1, chloride was 102, CO2 was 32, BUN is 25 creatinine 0.80. On 03/29/2019 patient seen in follow-up on selective care unit, she is resting comfortably in bed, still a little lethargic she had just returned from her heart catheterization with percutaneous coronary intervention and stenting of the left main coronary lesion. She is on 3 L of oxygen her pulse ox is 98%, afebrile, hemodynamically stable. Patient continues on oral Lasix at this time, she is on IV Rocephin, IV fluids at 75 ML per hour hours for 6 hours. Patient was found to have gram-negative bacilli in the urine cultures, final culture is pending, Rocephin for antibiotic coverage, she is not complaining of any urinary complaints, no shortness of breath or chest pain, lung sounds are clear, diminished at the bases. Objective - Vital Signs Vital signs: Vital Signs Temp 98.3 F 03/29/19 08:00 Pulse 87 03/29/19 14:32 Resp 20 03/29/19 14:32 BP 122/47 03/29/19 14:32 Pulse Ox 98 03/29/19 14:32 Intake & Output 03/28/19 03/29/19 03/29/19 18:59 06:59 18:59 Intake Total 720 490 Output Total 1300 Balance -580 490 Weight 69 kg 67.9 kg Intake: IV 125 Intake, IV Titration 125 Amount Sodium Chloride 0.9% 1, 75 000 ml @ 75 mls/hr IV . [id number] [facility] Rx#:[id number] cefTRIAXone 1 gm In 50 Sodium Chloride 0.9% 50 ml @ 100 mls/hr IVPB Q24HR [facility] Rx#:[id number] Oral 720 240 Output: Urine 1300 Uretheral (Sunshine) 200 Other: Voiding Method Toilet Toilet Toilet # Voids 1 # Bowel Movements 1 - Exam GENERAL EXAM: Alert, wasn't, 89-year-old white female, on 3 L per high flow nasal cannula pulse ox of 98%, lying flat in bed, after heart catheterization with stenting of the left main coronary artery HEAD: Normocephalic/atraumatic. EYES: Normal reaction of pupils, equal size. Conjunctiva pink, sclera white. NOSE: Clear with pink turbinates. THROAT: No erythema or exudates. NECK: No masses, no JVD, no thyroid enlargement, no adenopathy. CHEST: No chest wall deformity. Symmetrical expansion. LUNGS: Equal air entry with diminished breath sounds CVS: Regular rate and rhythm, normal S1 and S2, no gallops, no murmurs, no rubs ABDOMEN: Soft, nontender. No hepatosplenomegaly, normal bowel sounds, no guarding or rigidity. EXTREMITIES: No clubbing, 1+ edema bilateral lower extremities, no cyanosis, 2+ pulses and upper and lower extremities. MUSCULOSKELETAL: Muscle strength and tone normal. SPINE: No scoliosis or deformity SKIN: No rashes CENTRAL NERVOUS SYSTEM: Alert and oriented -3. No focal deficits, tone is normal in all 4 extremities. PSYCHIATRIC: Alert and oriented -3. Appropriate affect. Intact judgment and insight. - Labs CBC & Chem 7: 03/28/19 05:30 03/28/19 05:30 Labs: Abnormal Lab Results - Last 24 Hours (Table) 03/28/19 03/28/19 03/29/19 Range/Units 16:28 20:53 05:55 POC Glucose (mg/dL) 209 H 170 H 124 H (75-99) mg/dL 03/29/19 Range/Units 13:36 POC Glucose (mg/dL) 223 H (75-99) mg/dL Microbiology - Last 24 Hours (Table) 03/27/19 16:24 Urine Culture - Preliminary Urine,Catheterized Gram Neg Bacilli 03/27/19 13:06 Nasal Screen MRSA/MSSA - Final Nasal Swab Assessment and Plan Plan: Assessment: #1. Acute hypoxemic respiratory failure related to acute exacerbation of congestive heart failure with systolic dysfunction. Chest x-ray showed pulmonary edema, small bilateral pleural effusions #2. Nausea and vomiting at home, dehydration, resolved #3. Hypotension related to poor oral intake, nausea and vomiting, fluid resuscitated, with improvement in the blood pressure #4. Episode of unresponsiveness at home, brain CT showed no acute intracranial findings, showed moderate diffuse age-related cerebral atrophy and chronic small vessel ischemic changes #5. Acute kidney injury, likely related to ATN, diuretics, nausea and vomiting, resolved #6. Valvular heart disease, severe mitral regurgitation, and moderate aortic stenosis #7. Recent hospitalization for acute exacerbation of CHF and a urinary tract infection #8. Previous episode of GI bleeding #9. History of coronary artery disease with the stenting in November 2017 #10. Diabetes mellitus type 2 #11. Hypertention, hyperlipidemia #12. Previous history of bilateral thoracentesis, in December 2018, with removal of 800 mL from the left and 1300 mL from the right pleural effusion cytology was negative, pleural fluid cultures were negative, and analysis showed transudative fluid consistent with history of congestive heart failure #13. Coronary artery disease with severe left main disease, that is post PCI and placement of the left main stent today on 03/29/2019 #14. Ischemic cardiomyopathy and the transesophageal echocardiogram revealed impaired left ventricle systolic function with an EF of 35% Plan: We'll continue to follow, patient seems to be stable, no worsening shortness of breath, she is maintained good oxygenation on 2 L of oxygen, continues on oral diuretics, she underwent left main stenting, tolerated procedure very well, no acute issues at this time. We'll continue to follow I performed a history & physical examination of the patient and discussed their management with my nurse practitioner, Earline Dumas. I reviewed the nurse practitioner's note and agree with the documented findings and plan of care. Lung sounds are positive for diminished breath sounds with bibasilar crackles. The findings and the impression was discussed with the patient. I attest to the documentation by the nurse practitioner. Time with Patient: Less than 30
[2019-03-29] MEDS ORDERED: diphenhydrAMINE 50 MG/ML 1 ML VIAL IVP PRN (14:46)
[2019-03-29] MEDS ORDERED: HYDROmorphone 1 MG/ML 1 ML SYRINGE IVP PRN (14:47)
[2019-03-29] MEDS ORDERED: HYDROmorphone 0.5 MG/0.5 ML SYRINGE IVP STA (14:48)
--- NOTE | 2019-03-29 14:49 | P.PN ---
Subjective Progress Note Date: 03/29/19 89-year-old female one of Dr. Sales discharge on 03/15 with past medical history of systolic congestive heart failure, severe mitral regurgitation, moderate aortic stenosis, hypertension, chronic kidney disease stage III, type 2 diabetes, memory loss mostly is examined disease, known coronary artery disease, recurrent depression, hyperlipidemia who was just discharged a week ago after being treated for CHF exacerbation and NSTEMI. According to the daughter bedside patient became nonverbal and unresponsive and was brought to the ER. On evaluation in the ER patient was only responsive to painful stimulus. Within few minutes patient recovered and was oriented 3. Brain CT was negative for any new strokes. Venous blood gas was unremarkable. Labs ordered suggestive of hemoglobin of 10.1 stable as compared to the previous labs, BUN/creatinine 29 and creatinine 1.1, glucose 220 6B UN 29, BNP 12,400, troponin 0.021. Echo obtained during last admission suggest EF of 35-40% with apical inferior lateral hypokinesia. Cardiology and and pulmonary was consulted. Chest x-ray suggestive of pulmonary venous congestion and cardiomegaly. The daughter bedside and was not relating to give Lasix to the patient. On evaluation in the ER patient was currently on 6 L of oxygen saturating well but very short of breath trying to catch her breath on 6 L with symptoms positive for paroxysmal nocturnal dyspnea, orthopnea with bilateral lower extremity edema, no fever no chills no cough production. White is obtained suggest night temp of 98.6, pulse 82 respiratory rate 20 blood pressure 146/72 saturating at 91% On 6 L spelled since patient was short of breath on 6 L patient was switched to a nonrebreather and will be monitored overnight in the ICU 03/21: Patient is seen on the cardiac stepdown unit. She has been seen by cardiology with recommendations to resume her home diuretics and stop the IV Lasix, gradually resume beta giselle and consider adding Aldactone. Norvasc was discontinued. Patient has been afebrile, heart rate in the 70s, blood pressure 107/63, patient was on BiPAP and currently on nasal cannula high flow at 9 L. Repeat lab work reveals white count is 8.4, hemoglobin 10.7. Renal function has increased with a BUN of 42 and creatinine 1.68. Blood sugars are running between 181 and 210. The patient continues to have wheezing we will decrease her Solu-Medrol to 40 mg every 8 hours. Breathing is improved from yesterday. She denies having any abdominal pain. She is complaining of some left-sided chest pain that is tender to palpation. She denies any palpitations. She has a Sunshine catheter in place and diuresing well. Weight is down 3 kg. 03/22: The patient has been afebrile, heart rate in the 80s and 90s, blood pressure 120/48, patient is currently on high flow nasal cannula at 15 L pulse oxing 88-90%. WBC 8.7, hemoglobin 9.7. Sodium 136, potassium 4.4, chloride 105, CO2 20, BUN 55 and creatinine 1.7 to. Blood sugar this morning was 216. Solu-Medrol has been decreased to 40 every 12 hours by pulmonary medicine. Patient to use BiPAP as needed. Patient is also seen and followed by Dr. Farmer and Lasix was changed to IV. She is currently on IV Lasix 40 mg every 12 hours. Discussed CODE STATUS with the patient in depth and she wishes to be a full code and intubated if necessary. Patient's prognosis is poor. Patient and daughter to talk with cardiology regarding options regarding surgery and heart catheterization. Patient does not appear to be a surgical candidate and prognosis is poor. 03/23: Patient is afebrile, heart rate in the 90s, blood pressure 132/63, pulse ox 94% on 15 L nasal cannula. WBC is 11.3, hemoglobin 10.6. Sodium 134, potassium 5.1, chloride 105, CO2 21, BUN 52 and creatinine 1.29, blood sugars running be tween 128 and 221. Repeat chest x-ray reveals bilateral infiltrate and pleural effusions correlate for heart failure. Patient states that her breathing is improved today. She has no pedal edema. Sunshine catheter is draining clear shiv urine. Oxygen time of eval is down 8 L. She is currently on Solu-Medrol at 40 mg every 12 hours and IV Lasix 40 mg every 12. 03/24: The patient developed flash pulmonary edema yesterday and chest pain and was started on nitroglycerin sublingual and received extra dose of Lasix. She was also placed on BiPAP overnight. She is currently on 10 L high flow nasal cannula and pulse oxing 96%. Cardiology is planning for heart catheterization and SALO on Wednesday. Patient is continued on IV Lasix 40 mg twice daily. She has been afebrile, heart rate in the 90s. Blood sugars have been elevated at 189- 260 and patient was started last evening on NovoLog scheduled with meals and NPH 10 units twice daily. Patient's daughter is at the bedside and has been updat ed. 03/25: Patient is sitting up in bed resting comfortably today without any complaints or concerns. She is awake alert and in no acute distress. She is still requiring 10 L of high flow nasal cannula to maintain O2 saturations in the 90s. Patient continues to be afebrile. Hemodynamically stable. W BC 9.9, hemoglobin 11.7. BUN has improved to 38, creatinine 0.92, GFR 56. Patient continues to be on IV Lasix 40 mg twice a day. 03/26: Patient is sitting up in bed resting comfortably without any complaints. She is awake and alert with no acute distress. She continues to require high flow oxygen via nasal cannula to maintain O2 saturations. Patient continues to be afebrile. Hemodynamically stable. Patient is able to tolerate lying flat she will proceed with a cardiac catheterization and transesophageal echocardiogram tomorrow. Creatinine has improved to 0.83, BUN 33 03/27: SALO reveals EF 35%, moderate aortic stenosis, idul-so-clazxbad tricuspid regurgitation, moderate mitral regurgitation, no pericardial effusion. Heart catheterization performed by Dr. Otto as well finding severe disease involving the mid shaft of the left main, patent stent in the LAD. [facility] CABG. Patient's O2 needs have significantly improved and she is pulse oxing 95-97% on 2 L nasal cannula. Patient is resting comfortably in bed. Heart rate in the 70s and 80s, blood pressure 105/57 and patient has been afebrile. Blood sugars are running between 114 and 144. Repeat chest x-ray done this morning shows stable findings suggestive of COPD and bilateral lower lobe infiltrates. 03/28: Patient denies any new complaints. Her breathing is stable. Sunshine catheter will be discontinued today. Urinalysis was sent last night and found to be cloudy with leukoesterase large, WBCs greater than 182 and patient started on IV Rocephin for UTI. Patient is scheduled with cardiology for stent placement tomorrow in the LAD. She is currently pulse oxing 97% on 2 L nasal cannula. Patient's daughter has communicated that she will not be able to take the patient home until Wednesday. 03/29: IV Lasix was changed to oral yesterday. Urine cultures positive for gram- negative bacilli. She is continued on ceftriaxone. Patient has gone for PCI of the LAD. Review Of Systems: Constitutional: No fever, no chills, no night sweats. No weight change. No we akness, fatigue or lethargy. EENT: No headache. No blurred vision or double vision, no loss of vision. No loss of Hearing, no ringing in the ears, no dizziness. No nasal drainage or congestion. No epistaxis. No sore throat. Lungs: Reports decreased exercise tolerance, denies dyspnea, uses 2-3 L home oxygen No cough, no sputum production. No wheezing. Cardiovascular: No chest pain, reports lower extremity edema. No palpitations. No paroxysmal nocturnal dyspnea. No orthopnea. No lightheadedness or dizziness. No syncopal episodes. Abdominal: no abdominal discomfort. No nausea, vomiting. no diarrhea. No constipation. No bloody or tarry stools. improved loss of appetite. Genitourinary: No dysuria, increased frequency, urgency. No urinary retention. Musculoskeletal: No myalgias. No muscle weakness, no gait dysfunction, no frequent falls. No back pain. No neck pain. Integumentary: No wounds, no lesions. No rash or pruritus. No unusual bruising. No change in hair or nails. Neurologic: No aphasia. No facial droop. No change in mentation. No head injury. No headache. No paralysis. No paresthesia. Psychiatric: No depression. No anxiety. No mood swings. Endocrine: No abnormal blood sugars. No weight change. No excessive sweating or thirst. Objective - Vital Signs Vital signs: Vital Signs Temp 98.3 F 03/29/19 08:00 Pulse 84 03/29/19 08:56 Resp 18 03/29/19 08:00 BP 148/78 03/29/19 08:00 Pulse Ox 95 03/29/19 08:45 Intake & Output 03/28/19 03/29/19 03/29/19 18:59 06:59 18:59 Intake Total 720 Output Total 1300 Balance -580 Weight 69 kg 67.9 kg Intake: Oral 720 Output: Urine 1300 Uretheral (Sunshine) 200 Other: Voiding Method Toilet Toilet Toilet # Voids 1 # Bowel Movements 1 - Exam General appearance: cooperative, no acute distress and appears comfortable, obese - EENT Eyes: anicteric sclerae, PERRLA, normal appearance ENT: hearing grossly normal - Neck Neck: no lymphadenopathy, normal ROM, no other, no rigidity, no stridor, no thyromegaly - Respiratory Respiratory: bilateral: Diminished bases bilaterally - Cardiovascular Rhythm: regular Heart sounds: normal: S1, S2 Abnormal Heart Sounds: 3/6 systolic murmur left lateral sternal border, no diastolic murmur, no rub, no S3 Gallop, no S4 Gallop, no click, no other No pedal edema - Gastrointestinal General gastrointestinal: normal bowel sounds, soft Sunshine with clear shiv urine--to be removed - Integumentary Integumentary: no rash - Neurologic Neurologic: CNII-XII intact - Musculoskeletal Musculoskeletal: Gait not assessed strength equal bilaterally - Psychiatric Psychiatric: A&O x's 3, appropriate affect - Labs CBC & Chem 7: 03/28/19 05:30 03/28/19 05:30 Labs: Abnormal Lab Results - Last 24 Hours (Table) 03/28/19 03/28/19 03/28/19 Range/Units 11:40 16:28 20:53 POC Glucose (mg/dL) 174 H 209 H 170 H (75-99) mg/dL 03/29/19 Range/Units 05:55 POC Glucose (mg/dL) 124 H (75-99) mg/dL Microbiology - Last 24 Hours (Table) 03/27/19 16:24 Urine Culture - Preliminary Urine,Catheterized Gram Neg Bacilli 03/27/19 13:06 Nasal Screen MRSA/MSSA - Final Nasal Swab Assessment and Plan Plan: 1 acute on chronic hypoxic respiratory failure secondary to acute on chronic systolic heart failure, moderate aortic stenosis, severe mitral regurgitation, bilateral pleural effusions. Cardiology consult appreciated. Currently on oral Lasix 40 mg twice daily. Continue Ranexa 1000 mg twice daily, Imdur 30 mg daily. I&O and daily weights. Monitor renal function and electrolytes. Status post Heart catheterization and ASLO. Patient is scheduled for stent placement on Wednesday. 2 acute on chronic hypoxic respiratory failure. Home oxygen is up to 4 L. 3 bilateral pleural effusion: No need for thoracentesis. 4 hypertension. Norvasc discontinued. Continue hydralazine 25 mg 3 times daily, Imdur 30 mg daily, Lopressor is currently on hold. 5 chronic kidney disease stage 3. Nephrology consult. 6 type 2 diabetes. Continue NovoLog scale before meals and at bedtime, hold Tradjenta. 7 non-ST segment elevation myocardial infarction on previous admission. Continue aspirin 81 mg daily, Lipitor, beta giselle to be resumed slowly per cardiology. 8 memory loss: Most likely Alzheimer disease, patient remain on galantamine 4 mg twice a day, Aricept 5 mg daily. 9 history of coronary artery disease. 10 recurrent depression: Patient has been on Lexapro 10 mg a day. 11 hyperlipidemia: Remain on Lipitor 40 mg daily. 12 gram-negative urinary tract infection, Sunshine catheter will be removed. Patient started on Rocephin. Urine culture in progress. 13 valvular heart disease with moderate aortic stenosis and moderate mitral regurgitation. DVT prophylaxis with heparin every 12. GI prophylaxis. Pepcid 20 mg daily. Discharge plan: Most likely home with [facility] care on Wednesday Impression and plan of care have been directed as dictated by the signing physic ian. Donita Padron nurse practitioner acting as scribe for signing physician.
--- NOTE | 2019-03-29 15:22 | PN ---
PROGRESS NOTE Patient is seen for followup for acute kidney injury. Her renal function has remained fairly stable. Serum creatinine has been down to 0.8 from 1.72 mg/dL at peak. Patient had a cardiac catheterization and is scheduled for another intervention and coronary stent placement this afternoon. This morning she feels well. She denies any significant complaints. Blood pressure this morning was 148/78, heart rate 84 per minute, patient is afebrile. Examination of the heart, S1, S2. Examination of the lungs, bilateral breath sounds are heard. Abdomen is soft, nontender. Examination of the lower extremities shows no significant edema. LABS: Show sodium 138, potassium 4.1, BUN 25, serum creatinine 0.8, hemoglobin 10.6 g/dL. ASSESSMENT: 1. Acute kidney injury, acute tubular necrosis secondary to hypotension and hypoperfusion, currently resolved. 2. Coronary artery disease, status post cardiac cath and scheduled for PTCA and stenting this afternoon. 3. Cardiomyopathy. 4. CHF on initial admission, currently resolved. Systolic acute on top of chronic. Patient is currently maintained on oral Lasix. PLAN: Continue with oral Lasix. Repeat labs in a.m. MMODL / IJN: [id number] /
[2019-03-29 17:09] LABS: Glucose,Whole Blood 161 mg/dL (75-99)
[2019-03-29 21:58] LABS: Glucose,Whole Blood 96 mg/dL (75-99)
[2019-03-30] MEDS: INSULIN ASPART (NovoLOG) 100 UNIT/ML VIAL SQ SCH ×7 (06:34→20:42)
[2019-03-30 06:36] LABS: Glucose,Whole Blood 90 mg/dL (75-99)
[2019-03-30 06:51] LABS: Calcium 9.1 mg/dL (8.4-10.2); Potassium 3.9 mmol/L (3.5-5.1)
[2019-03-30] MEDS: predniSONE 10 MG TAB PO SCH (08:10)
[2019-03-30] MEDS: ESCITALOPRAM 10 MG TAB PO SCH (08:10)
[2019-03-30] MEDS: ASPIRIN 81 MG PO SCH (08:10)
[2019-03-30] MEDS: DONEPEZIL 5 MG TAB PO SCH (08:10)
[2019-03-30] MEDS: hydrALAZINE HCL 25 MG TAB PO SCH ×3 (08:10→20:43)
[2019-03-30] MEDS: ISOSORBIDE MONONITRATE ER 30 MG TAB.ER.24H PO SCH (08:10)
[2019-03-30] MEDS: POTASSIUM CHLORIDE ER 20 MEQ TAB.ER PO SCH (08:10)
[2019-03-30] MEDS: FUROSEMIDE 40 MG TAB PO SCH ×2 (08:10→16:52)
[2019-03-30] MEDS: ATORVASTATIN 40 MG TAB PO SCH (08:10)
[2019-03-30] MEDS: CLOPIDOGREL 75 MG TAB PO SCH (08:10)
[2019-03-30] MEDS: FAMOTIDINE 20 MG TAB PO SCH (08:11)
[2019-03-30] MEDS: guaiFENesin 600 MG TABLET.ER PO SCH ×2 (08:11→20:42)
[2019-03-30] MEDS: HEPARIN SODIUM,PORCINE 5,000 UNIT/ML 1 ML VIAL SQ SCH ×2 (08:11→20:42)
[2019-03-30] MEDS: ACETAMINOPHEN TAB 325 MG TAB PO PRN (08:11)
[2019-03-30] MEDS: INSULIN NPH 300 UNIT/3 ML VIAL SQ SCH ×2 (08:11→20:43)
--- NOTE | 2019-03-30 11:33 | P.PN ---
Subjective Patient is seen in follow-up for acute kidney injury which is resolved. GFR is back to baseline. Patient underwent cardiac catheterization yesterday and had a stent placed to the left main coronary. She is currently sitting up in chair. Urine output is good. Oral intake is fair. No vomiting or diarrhea. Vital signs are stable. General: The patient appeared well nourished and normally developed. HEENT: Head exam is unremarkable. Neck is without jugular venous distension. LUNGS: Lungs are clear to auscultation and percussion. Breath sounds decreased. HEART: Rate and Rhythm are regular. First and second heart sounds normal. No murmurs, rubs or gallops. ABDOMEN: Abdominal exam reveals normal bowel sounds. Non-tender and non-distended. No evidence of peritonitis. EXTREMITITES: No clubbing, cyanosis, or edema. Objective - Vital Signs Vital signs: Vital Signs Temp 97.5 F L 03/30/19 08:00 Pulse 79 03/30/19 10:19 Resp 18 03/30/19 08:00 BP 136/56 03/30/19 10:19 Pulse Ox 98 03/30/19 10:19 Intake & Output 03/29/19 03/30/19 03/30/19 18:59 06:59 18:59 Intake Total 490 240 Output Total 600 400 Balance -110 -400 240 Weight 68.2 kg Intake: IV 125 Intake, IV Titration 125 Amount Sodium Chloride 0.9% 1, 75 000 ml @ 75 mls/hr IV . [id number] [facility] Rx#:[id number] 1 gm In 50 Sodium Chloride 0.9% 50 ml @ 100 mls/hr IVPB Q24HR [facility] Rx#:[id number] Oral 240 240 Output: Urine 600 400 Straight 600 Other: Voiding Method Toilet Toilet - Labs CBC & Chem 7: 03/28/19 05:30 03/30/19 06:13 Labs: Abnormal Lab Results - Last 24 Hours (Table) 03/29/19 03/29/19 03/30/19 Range/Units 13:36 17:07 06:13 Chloride 108 H (98-107) mmol/L BUN 22 H (7-17) mg/dL POC Glucose (mg/dL) 223 H 161 H (75-99) mg/dL Microbiology - Last 24 Hours (Table) 05/13/19 16:24 Urine Culture - Final Urine,Catheterized Escherichia coli Assessment and Plan Plan: Assessment: 1. Acute kidney injury mostly prerenal secondary to hypotension. Resolved. GFR back to baseline. 2. Coronary artery disease status post stent to the left main coronary artery on March 29. 3. UTI with urine culture positive for E. coli. Maintained on antibiotics. 4. Systolic CHF with ejection fraction of 35-40% with moderate aortic stenosis and mitral regurgitation. 5. Insulin-dependent diabetes mellitus. Plan: Maintain Lasix 40 mg orally twice daily. Avoid nephrotoxins.
[2019-03-30 11:50] LABS: Glucose,Whole Blood 70 mg/dL (75-99)
--- NOTE | 2019-03-30 11:52 | PN ---
PROGRESS NOTE Mrs. Mcclain is an 89-year-old female who presented with worsening dyspnea and underwent cardiac catheterization by Dr. Otto, was found to have critical stenosis involving the left main. Underwent coronary angioplasty and stenting yesterday of the left main with the help of an Impella. She is sitting up in the chair today, feeling well, denying any chest pain. She denies any dizziness or palpitation. She denies any nausea. She is feeling quite well. She continued to be on aspirin once a day, Lipitor 40 mg daily, Plavix 75 mg daily, donepezil 5 mg daily, Lasix 40 mg twice a day, hydralazine 25 mg 3 times a day, isosorbide mononitrate 30 mg daily, prednisone, potassium supplements. PHYSICAL EXAMINATION: Blood pressure running in the 130s over 50 with the heart rate in the 70s. LUNGS: Clear. HEART: Regular rate and rhythm. S1, S2. No S3 with systolic murmur. No diastolic murmur. ABDOMEN: Soft, nontender. EXTREMITIES: No edema. RIGHT GROIN: No hematoma. Pulse noted in the dorsalis pedis. Right radial pulse is intact. LAB DATA: Lab data revealed BUN and creatinine 22 and 0.75, potassium 3.9. IMPRESSION: 1. Status post stenting of the left main, stable. 2. Prior history of stenting of the LAD. 3. Acute kidney injury, improved. 4. History of valvular disease, stable. 5. History of diabetes. 6. Hyperlipidemia. RECOMMENDATION: From the cardiac standpoint, we will continue present therapy, increase her level of activity, follow her renal function. If she remains stable, I am hopeful she will be able to be discharged home tomorrow. MMODL / IJN: [id number] /
--- NOTE | 2019-03-30 12:20 | P.PN ---
Subjective Progress Note Date: 03/30/19 Principal diagnosis: Acute exacerbation of chronic congestive heart failure This is a 89-year-old female patient of Dr. Sales, with known history of valvular heart disease, severe mitral regurgitation, and moderate aortic stenosis, hypertension, hyperlipidemia, chronic congestive heart failure, previous myocardial infarction with stenting of the LAD in November 2017, type 2 diabetes mellitus, who was recently hospitalized for acute exacerbation of congestive heart failure with systolic dysfunction, and non-ST segment elevated myocardial infarction. Echocardiogram was completed during that admission and showed ejection fraction of 35-40%. Patient was discharged home on 03/15/2019, on oral Lasix of 40 mg twice daily. Patient was brought to the hospital on 03/20/2019 for complaints of worsening shortness of breath, patient woke up out of her sleep and couldn't breathe, was having some chest pain that responded to sublingual nitro, vision also had episode of unresponsiveness at home. Patient had some episodes of emesis at home, did have some chills, but was afebrile. Chest x-ray was completed showing persistent central vascular congestion and bibasilar opacities/bilateral pleural effusions. Patient did have some hypotension, apparently she was a bit dehydrated from vomiting. Did have some abdominal discomfort across the upper abdomen, but abdomen is soft, no diarrhea. She was given the a liter bolus in the emergency department, she was in significant respiratory distress, and blood gas was obtained showing pO2 of 73, pCO2 of 39, pH of 7.41 this was done on FiO2 100%, patient was placed on BiPAP support. She was started on IV diuretics, antibiotics, breathing treatments. Labs did not show any evidence of leukocytosis, admission labs showed a white blood cell count of 10.4, hemoglobin of 10.1, electrolytes are within normal limits, BUN is 29 creatinine was 1.1 and renal profile has increased on today's labs, with B1 up to 42 and creatinine of 1.6. Her BNP was 12,400, troponin was negative at 0.021. Urinalysis was negative, and urine drug screen was negative. During my exam patient is seen still on BiPAP, but she has been able to tolera te periods on the high flow nasal cannula, she has 1+ pitting edema in lower extremities, lung sounds reveal diminished breath sounds bilaterally with fine rales at the bases. No further episodes of nausea and vomiting. No complaints of chest pain, cardiology is following, EKG showed a sinus rhythm with left bundle branch block and nonspecific STT wave changes On 03/22/2019 patient seen in follow-up on selective care unit, she is currently off BiPAP, she did wear it through the night, he is currently on 15 L of oxygen per high flow nasal cannula and her pulse ox is 88-89%, she is afebrile, she denies any chest pain, she is diuresing, her lower extremity edema is improving, lung sounds are positive for MRSA breath sounds with rales at the bases, she states she is dyspneic on today's exam, follow-up chest x-ray was obtained today shows bilateral infiltrates and pleural effusions, relatively stable, maybe slightly progressed. In negative fluid balance. Today's labs have been reviewe d, and showed no leukocytosis, with blood cell count is 8.7, hemoglobin is 9.7, sodium is 136, potassium is 4.4, chloride is 105, CO2 is 20, B1 is 55 and creatinine is 1.72, and renal profile is slightly worse on on today's labs. She remains on IV Lasix at 40 mg every 12 hours, she is on breathing treatments and IV steroids. On 03/23/2019 patient seen in follow-up on selective care unit. She is awake and alert, sitting up in the recliner, her oxygenation is improving, she remains on 15 L high flow oxygen with pulse ox of 94%, she says she is less dyspneic, in lower extremity edema is improving, follow-up chest x-ray from yesterday was reviewed, and showed bilateral infiltrates and pleural effusions related to history of CHF. She remains on IV Lasix at 40 mg every 12 hours, and today's lab work shows a woman of her renal profile with BUN at 52 and creatinine of 1.29. Patient is in -3400 cc fluid balance. Denies any chest pain, hemodynamics remained stable, no fever or chills, cardiology is considering possibility of transesophageal echocardiogram for evaluation of mitral valve d isease, and aortic valve stenosis. There is a possibility of heart catheterization once her fluid that is improved, her respiratory status stabilizes. On 03/24/2019 patient seen in follow-up on the selective care unit. Patient apparently had episode of chest discomfort last night, increased shortness of breath, stat chest x-ray was obtained showing changes of fluid overload, congestive heart failure which was actually slightly improved from the previous chest x-ray, nevertheless patient was given an extra dose of IV Lasix, and subsequently her breathing had improved. On today's exam she is sitting up in the recliner, currently on 2 L per high flow nasal cannula, lung sounds reveal fine bibasilar crackles, no rhonchi or wheezes, no complaints of chest pain. Vital signs are stable, today's lab work has been reviewed showing electrolytes within normal limits, and further improvement in patient's renal profile with BUN of 45 and creatinine of 0.94. No fever, no chills, patient remains on IV diuretics, and breathing treatments, will await further recommendations from cardiology. On 03/26/2019 patient seen in follow-up on care unit, FiO2 is down to 4 L, and her pulse ox is 98%, no complaints of chest pain, she states her breathing continues to improve, lung sounds are clear, diminished at the bases, patient is afebrile. No lower extremity edema. Patient remains on IV Lasix at 40 mg every 12 hours. Renal profile continues to improve, B1 is 33, creatinine 0.83. No CBC was done today. No cough or congestion. Will await further recommendations from cardiology 03/27/2019 patient seen in follow-up on selective care unit, she has just returned from a transesophageal echocardiogram in the cardiac catheterization. In the cardiac catheterization there was severe disease involving the mid shaft of the left main discovered, and patent stent in the mid LAD. Transesophageal echocardiogram showed impaired left ventricular function with ejection fraction of 35% with inferior hypokinesia, trileaflet aortic valve with evidence of aortic sclerosis and moderate stenosis by gradient, thickened mitral valve leaflets with moderate mitral regurgitation only, mild to moderate tricuspid regurgitation and no evidence of pericardial effusion. Overall patient is breathing easier, she continues to diurese, she is currently on 2 L of oxygen sats of 95%, she is afebrile. Continues is on IV Lasix at 40 mg every 12 hours, no new blood work today. On 03/28/2019 patient seen in follow-up on selective care unit, she remains on 2 L of oxygen, she states her breathing continues to improve, her pulse ox is 97%, no complaints of chest pain, and constipation by CT surgery and she was told she is not a surgical candidate, for bypass surgery, and the plan is to proceed with stenting of the left main sometime tomorrow. Vital signs remain stable, patient has been transitioned to oral diuretics, CBC was unremarkable, sodium was 138, potassium is 4.1, chloride was 102, CO2 was 32, BUN is 25 creatinine 0.80. On 03/29/2019 patient seen in follow-up on selective care unit, she is resting comfortably in bed, still a little lethargic she had just returned from her heart catheterization with percutaneous coronary intervention and stenting of the left main coronary lesion. She is on 3 L of oxygen her pulse ox is 98%, afebrile, hemodynamically stable. Patient continues on oral Lasix at this time, she is on IV Rocephin, IV fluids at 75 ML per hour hours for 6 hours. Patient was found to have gram-negative bacilli in the urine cultures, final culture is pending, Rocephin for antibiotic coverage, she is not complaining of any urinary complaints, no shortness of breath or chest pain, lung sounds are clear, diminished at the bases. On 03/30/2019 patient seen in follow-up selective care unit, she is awake and alert, she is sitting up in the recliner, in no acute distress, she is on 3 L of oxygen, sats 97%, she is afebrile, hemodynamically stable, she states her breat percy continues to improve, she states she is feeling very good, no chest pain, no shortness of breath, no acute events overnight. Patient is status post stenting of her left main coronary artery for critical stenosis involving the left main. Patient did have a Impala support following that coronary angioplasty and stenting of the left main has been discontinued. Her renal function remains stable, and today's BUN is 22, creatinine is 0.75, serum sodium is 138, potassium is 3.9, and he is on oral diuretics at 40 mg twice daily and she was hydrated for 6 hours after the heart catheterization. No fever, no chills, no cough or congestion, from pulmonary perspective patient is stable, she is anticipated to go home sometime tomorrow if she continues to do well. Objective - Vital Signs Vital signs: Vital Signs Temp 96.7 F L 03/30/19 12:00 Pulse 84 03/30/19 12:00 Resp 20 03/30/19 12:00 BP 136/51 03/30/19 12:00 Pulse Ox 97 03/30/19 12:00 Intake & Output 03/29/19 03/30/19 03/30/19 18:59 06:59 18:59 Intake Total 490 240 Output Total 600 400 Balance -110 -400 240 Weight 68.2 kg Intake: IV 125 Intake, IV Titration 125 Amount Sodium Chloride 0.9% 1, 75 000 ml @ 75 mls/hr IV . [id number] [facility] Rx#:[id number] cefTRIAXone 1 gm In 50 Sodium Chloride 0.9% 50 ml @ 100 mls/hr IVPB Q24HR [facility] Rx#:[id number] Oral 240 240 Output: Urine 600 400 Straight 600 Other: Voiding Method Toilet Toilet - Exam GENERAL EXAM: Alert, wasn't, 89-year-old white female, on 3 L per high flow nasal cannula pulse ox of 98%, sitting up in the recliner HEAD: Normocephalic/atraumatic. EYES: Normal reaction of pupils, equal size. Conjunctiva pink, sclera white. NOSE: Clear with pink turbinates. THROAT: No erythema or exudates. NECK: No masses, no JVD, no thyroid enlargement, no adenopathy. CHEST: No chest wall deformity. Symmetrical expansion. LUNGS: Equal air entry with diminished breath sounds CVS: Regular rate and rhythm, normal S1 and S2, no gallops, no murmurs, no rubs ABDOMEN: Soft, nontender. No hepatosplenomegaly, normal bowel sounds, no guarding or rigidity. EXTREMITIES: No clubbing, 1+ edema bilateral lower extremities, no cyanosis, 2+ pulses and upper and lower extremities. MUSCULOSKELETAL: Muscle strength and tone normal. SPINE: No scoliosis or deformity SKIN: No rashes CENTRAL NERVOUS SYSTEM: Alert and oriented -3. No focal deficits, tone is normal in all 4 extremities. PSYCHIATRIC: Alert and oriented -3. Appropriate affect. Intact judgment and insight. - Labs CBC & Chem 7: 03/28/19 05:30 03/30/19 06:13 Labs: Abnormal Lab Results - Last 24 Hours (Table) 03/29/19 03/29/19 03/30/19 Range/Units 13:36 17:07 06:13 Chloride 108 H (98-107) mmol/L BUN 22 H (7-17) mg/dL POC Glucose (mg/dL) 223 H 161 H (75-99) mg/dL 03/30/19 Range/Units 11:37 Chloride (98-107) mmol/L BUN (7-17) mg/dL POC Glucose (mg/dL) 70 L (75-99) mg/dL Microbiology - Last 24 Hours (Table) 03/27/19 16:24 Urine Culture - Final Urine,Catheterized Escherichia coli Assessment and Plan Plan: Assessment: #1. Acute hypoxemic respiratory failure related to acute exacerbation of congestive heart failure with systolic dysfunction. Chest x-ray showed pulmo nary edema, small bilateral pleural effusions #2. Nausea and vomiting at home, dehydration, resolved #3. Hypotension related to poor oral intake, nausea and vomiting, fluid resuscitated, with improvement in the blood pressure #4. Episode of unresponsiveness at home, brain CT showed no acute intracranial findings, showed moderate diffuse age-related cerebral atrophy and chronic small vessel ischemic changes #5. Acute kidney injury, likely related to ATN, diuretics, nausea and vomiting, resolved #6. Valvular heart disease, severe mitral regurgitation, and moderate aortic stenosis #7. Recent hospitalization for acute exacerbation of CHF and a urinary tract infection #8. Previous episode of GI bleeding #9. History of coronary artery disease with the stenting in November 2017 #10. Diabetes mellitus type 2 #11. Hypertention, hyperlipidemia #12. Previous history of bilateral thoracentesis, in December 2018, with removal of 800 mL from the left and 1300 mL from the right pleural effusion cytology was negative, pleural fluid cultures were negative, and analysis showed transudative fluid consistent with history of congestive heart failure #13. Coronary artery disease with severe left main disease, that is post PCI and placement of the left main stent today on 03/29/2019 #14. Ischemic cardiomyopathy and the transesophageal echocardiogram revealed impaired left ventricle systolic function with an EF of 35% Plan: Continue oral diuretics, renal profile is stable, patient is doing well, no complaints of chest pain or shortness of breath, from pulmonary perspective patient is stable, increase activity as tolerated, will see on as-needed basis. I performed a history & physical examination of the patient and discussed their management with my nurse practitioner, Earline Dumas. I reviewed the nurse practitioner's note and agree with the documented findings and plan of care. Lung sounds are positive for diminished breath sounds with bibasilar crackles. The findings and the impression was discussed with the patient. I attest to the documentation by the nurse practitioner. Time with Patient: Less than 30
--- NOTE | 2019-03-30 16:03 | P.PN ---
Subjective Progress Note Date: 03/30/19 89-year-old female one of Dr. Sales discharge on 03/15 with past medical history of systolic congestive heart failure, severe mitral regurgitation, moderate aortic stenosis, hypertension, chronic kidney disease stage III, type 2 diabetes, memory loss mostly is examined disease, known coronary artery disease, recurrent depression, hyperlipidemia who was just discharged a week ago after being treated for CHF exacerbation and NSTEMI. According to the daughter bedside patient became nonverbal and unresponsive and was brought to the ER. On evaluation in the ER patient was only responsive to painful stimulus. Within few minutes patient recovered and was oriented 3. Brain CT was negative for any new strokes. Venous blood gas was unremarkable. Labs ordered suggestive of hemoglobin of 10.1 stable as compared to the previous labs, BUN/creatinine 29 and creatinine 1.1, glucose 220 6B UN 29, BNP 12,400, troponin 0.021. Echo obtained during last admission suggest EF of 35-40% with apical inferior lateral hypokinesia. Cardiology and and pulmonary was consulted. Chest x-ray suggestive of pulmonary venous congestion and cardiomegaly. The daughter bedside and was not relating to give Lasix to the patient. On evaluation in the ER patient was currently on 6 L of oxygen saturating well but very short of breath trying to catch her breath on 6 L with symptoms positive for paroxysmal nocturnal dyspnea, orthopnea with bilateral lower extremity edema, no fever no chills no cough production. White is obtained suggest night temp of 98.6, pulse 82 respiratory rate 20 blood pressure 146/72 saturating at 91% On 6 L spelled since patient was short of breath on 6 L patient was switched to a nonrebreather and will be monitored overnight in the ICU 03/21: Patient is seen on the cardiac stepdown unit. She has been seen by cardiology with recommendations to resume her home diuretics and stop the IV Lasix, gradually resume beta giselle and consider adding Aldactone. Norvasc was discontinued. Patient has been afebrile, heart rate in the 70s, blood pressure 107/63, patient was on BiPAP and currently on nasal cannula high flow at 9 L. Repeat lab work reveals white count is 8.4, hemoglobin 10.7. Renal function has increased with a BUN of 42 and creatinine 1.68. Blood sugars are running between 181 and 210. The patient continues to have wheezing we will decrease her Solu-Medrol to 40 mg every 8 hours. Breathing is improved from yesterday. She denies having any abdominal pain. She is complaining of some left-sided chest pain that is tender to palpation. She denies any palpitations. She has a Sunshine catheter in place and diuresing well. Weight is down 3 kg. 03/22: The patient has been afebrile, heart rate in the 80s and 90s, blood pressure 120/48, patient is currently on high flow nasal cannula at 15 L pulse oxing 88-90%. WBC 8.7, hemoglobin 9.7. Sodium 136, potassium 4.4, chloride 105, CO2 20, BUN 55 and creatinine 1.7 to. Blood sugar this morning was 216. Solu-Medrol has been decreased to 40 every 12 hours by pulmonary medicine. Patient to use BiPAP as needed. Patient is also seen and followed by Dr. Farmer and Lasix was changed to IV. She is currently on IV Lasix 40 mg every 12 hours. Discussed CODE STATUS with the patient in depth and she wishes to be a full code and intubated if necessary. Patient's prognosis is poor. Patient and daughter to talk with cardiology regarding options regarding surgery and heart catheterization. Patient does not appear to be a surgical candidate and prognosis is poor. 03/23: Patient is afebrile, heart rate in the 90s, blood pressure 132/63, pulse ox 94% on 15 L nasal cannula. WBC is 11.3, hemoglobin 10.6. Sodium 134, potassium 5.1, chloride 105, CO2 21, BUN 52 and creatinine 1.29, blood sugars running be tween 128 and 221. Repeat chest x-ray reveals bilateral infiltrate and pleural effusions correlate for heart failure. Patient states that her breathing is improved today. She has no pedal edema. Sunshine catheter is draining clear shiv urine. Oxygen time of eval is down 8 L. She is currently on Solu-Medrol at 40 mg every 12 hours and IV Lasix 40 mg every 12. 03/24: The patient developed flash pulmonary edema yesterday and chest pain and was started on nitroglycerin sublingual and received extra dose of Lasix. She was also placed on BiPAP overnight. She is currently on 10 L high flow nasal cannula and pulse oxing 96%. Cardiology is planning for heart catheterization and SALO on Wednesday. Patient is continued on IV Lasix 40 mg twice daily. She has been afebrile, heart rate in the 90s. Blood sugars have been elevated at 189- 260 and patient was started last evening on NovoLog scheduled with meals and NPH 10 units twice daily. Patient's daughter is at the bedside and has been updat ed. 03/25: Patient is sitting up in bed resting comfortably today without any complaints or concerns. She is awake alert and in no acute distress. She is still requiring 10 L of high flow nasal cannula to maintain O2 saturations in the 90s. Patient continues to be afebrile. Hemodynamically stable. W BC 9.9, hemoglobin 11.7. BUN has improved to 38, creatinine 0.92, GFR 56. Patient continues to be on IV Lasix 40 mg twice a day. 03/26: Patient is sitting up in bed resting comfortably without any complaints. She is awake and alert with no acute distress. She continues to require high flow oxygen via nasal cannula to maintain O2 saturations. Patient continues to be afebrile. Hemodynamically stable. Patient is able to tolerate lying flat she will proceed with a cardiac catheterization and transesophageal echocardiogram tomorrow. Creatinine has improved to 0.83, BUN 33 03/27: SALO reveals EF 35%, moderate aortic stenosis, [id number] tricuspid regurgitation, moderate mitral regurgitation, no pericardial effusion. Heart catheterization performed by Dr. Otto as well finding severe disease involving the mid shaft of the left main, patent stent in the LAD. [facility]. Patient's O2 needs have significantly improved and she is pulse oxing 95-97% on 2 L nasal cannula. Patient is resting comfortably in bed. Heart rate in the 70s and 80s, blood pressure 105/57 and patient has been afebrile. Blood sugars are running between 114 and 144. Repeat chest x-ray done this morning shows stable findings suggestive of COPD and bilateral lower lobe infiltrates. 03/28: Patient denies any new complaints. Her breathing is stable. Sunshine catheter will be discontinued today. Urinalysis was sent last night and found to be cloudy with leukoesterase large, WBCs greater than 182 and patient started on IV Rocephin for UTI. Patient is scheduled with cardiology for stent placement tomorrow in the LAD. She is currently pulse oxing 97% on 2 L nasal cannula. Patient's daughter has communicated that she will not be able to take the patient home until Wednesday. 03/29: IV Lasix was changed to oral yesterday. Urine cultures positive for gram- negative bacilli. She is continued on ceftriaxone. Patient has gone for PCI of the LAD. 03/30 patient examined bedside is sitting comfortably in bed on 3 L of oxygen saturating well in 98%. Patient denies any chest pain shortness of breath in the setting in the lower extremity. She is able to walk with physical therapy with the help of walker. PT recommendations are pending possible discharge home with home care patient underwent stenting of the LAD yesterday. Labs are stable with a BUN 22 creatinine 0.75 sodium 138 potassium 3.9 currently on oral diuretic 40 mg twice daily. 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 No weight change. No weakness, fatigue or lethargy. EENT: No headache. No blurred vision or double vision, no loss of vision. No loss of Hearing, no ringing in the ears, no dizziness. No nasal drainage or congestion. No epistaxis. No sore throat. Lungs: Reports decreased exercise tolerance, denies dyspnea, uses 2-3 L home oxygen No cough, no sputum production. No wheezing. Cardiovascular: No chest pain, reports lower extremity edema. No palpitations. No paroxysmal nocturnal dyspnea. No orthopnea. No lightheadedness or dizziness. No syncopal episodes. Abdominal: no abdominal discomfort. No nausea, vomiting. no diarrhea. No constipation. No bloody or tarry stools. improved loss of appetite. Genitourinary: No dysuria, increased frequency, urgency. No urinary retention. Musculoskeletal: No myalgias. No muscle weakness, no gait dysfunction, no frequent falls. No back pain. No neck pain. Integumentary: No wounds, no lesions. No rash or pruritus. No unusual bruising. No change in hair or nails. Neurologic: No aphasia. No facial droop. No change in mentation. No head injury. No headache. No paralysis. No paresthesia. Psychiatric: No depression. No anxiety. No mood swings. Endocrine: No abnormal blood sugars. No weight change. No excessive sweating or thirst. Objective - Vital Signs Vital signs: Vital Signs Temp 97.9 F 03/30/19 15:32 Pulse 83 03/30/19 15:32 Resp 16 03/30/19 15:32 BP 134/56 03/30/19 15:32 Pulse Ox 99 03/30/19 15:32 Intake & Output 03/29/19 03/30/19 03/30/19 18:59 06:59 18:59 Intake Total 490 480 Output Total 600 400 Balance -110 -400 480 Weight 68.2 kg Intake: IV 125 Intake, IV Titration 125 Amount Sodium Chloride 0.9% 1, 75 000 ml @ 75 mls/hr IV . [id number] [facility] Rx#:[id number] cefTRIAXone 1 gm In 50 Sodium Chloride 0.9% 50 ml @ 100 mls/hr IVPB Q24HR [facility] Rx#:[id number] Oral 240 480 Output: Urine 600 400 Straight 600 Other: Voiding Method Toilet Toilet # Voids 1 # Bowel Movements 1 - Exam General appearance: cooperative, no acute distress and appears comfortable, obese - EENT Eyes: anicteric sclerae, PERRLA, normal appearance ENT: hearing grossly normal - Neck Neck: no lymphadenopathy, normal ROM, no other, no rigidity, no stridor, no thyromegaly - Respiratory Respiratory: bilateral: Diminished bases bilaterally - Cardiovascular Rhythm: regular Heart sounds: normal: S1, S2 Abnormal Heart Sounds: 3/6 systolic murmur left lateral sternal border, no diastolic murmur, no rub, no S3 Gallop, no S4 Gallop, no click, no other No pedal edema - Gastrointestinal General gastrointestinal: normal bowel sounds, soft - Integumentary Integumentary: no rash - Neurologic Neurologic: CNII-XII intact - Musculoskeletal Musculoskeletal: Gait not assessed strength equal bilaterally - Psychiatric Psychiatric: A&O x's 3, appropriate affect - Labs CBC & Chem 7: 03/28/19 05:30 03/30/19 06:13 Labs: Abnormal Lab Results - Last 24 Hours (Table) 03/29/19 03/30/19 03/30/19 Range/Units 17:07 06:13 11:37 Chloride 108 H (98-107) mmol/L BUN 22 H (7-17) mg/dL POC Glucose (mg/dL) 161 H 70 L (75-99) mg/dL Microbiology - Last 24 Hours (Table) 03/27/19 16:24 Urine Culture - Final Urine,Catheterized Escherichia coli Assessment and Plan Plan: 1 acute shortness of breath secondary to acute on chronic systolic heart failure, moderate aortic stenosis, severe mitral regurgitation bilateral pleural effusions. Patient is currently on oral Lasix at home. Lasix 40 mg by mouth twice a day. Cardiology consult and pulmonary consult on patient's daughter request renexa L 1000 mg twice daily, Imdur 30 mg daily. INR monitoring daily weights 2 acute on chronic hypoxic respiratory failure. Currently on 3 L oxygen 3 bilateral pleural effusion: No need for thoracentesis. 4 hypertension. Continue Norvasc 10 mg daily, Lasix 40 mg twice daily, hydralazine 25 mg 3 times daily, Imdur 30 mg daily, Lopressor 50 mg 3 times daily. 5 chronic kidney disease stage 3. 6 type 2 diabetes. Continue NovoLog scale before meals and at bedtime, hold Tradjenta. 7 non-ST segment elevation myocardial infarction status post stenting of LAD on 03/29 8 memory loss: Most likely Alzheimer disease, patient remain on galantamine 4 mg twice a day. 9 history of coronary artery disease. 10 recurrent depression: Patient has been on Lexapro 10 mg a day. 11 hyperlipidemia: Remain on Lipitor 40 mg daily. 12 UTI on ceftriaxone DVT prophylaxis with heparin every 12
[2019-03-30 16:46] LABS: Glucose,Whole Blood 213 mg/dL (75-99)
[2019-03-30 20:41] LABS: Glucose,Whole Blood 178 mg/dL (75-99)
[2019-03-30] MEDS: ALPRAZolam 0.25 MG TAB PO PRN (20:43)
[2019-03-31] MEDS: INSULIN ASPART (NovoLOG) 100 UNIT/ML VIAL SQ SCH ×4 (06:40→12:39)
[2019-03-31 06:41] LABS: Glucose,Whole Blood 96 mg/dL (75-99)
[2019-03-31 07:22] LABS: Calcium 8.7 mg/dL (8.4-10.2); Potassium 3.6 mmol/L (3.5-5.1)
[2019-03-31] MEDS: IPRATROPIUM-ALBUTEROL 3 ML NEB INHALATION PRN (08:34)
[2019-03-31] MEDS ORDERED: predniSONE 20 MG TAB PO SCH (09:00)
--- NOTE | 2019-03-31 09:03 | PN ---
PROGRESS NOTE Mrs. Mcclain is an 89-year-old female who presented with symptoms of progressive dyspnea, underwent cardiac catheterization by Dr. Otto and was found to have critical stenosis involving the left main, underwent stenting of that vessel with mechanical support. She is doing well this morning. Her breathing is stable. She denies any chest pain. No dizziness. No palpitation. She denies any nausea. Hemodynamically, she is stable. She continues to be at this time on aspirin 81 mg daily, Lipitor 40 mg daily, Plavix 75 mg daily, hydralazine 25 mg 3 times a day, isosorbide mononitrate 30 mg daily, and prednisone. PHYSICAL EXAMINATION: Blood pressure 130/60 with the heart rate in the 70s. LUNGS: Clear. HEART: Regular rate and rhythm. S1, S2. No S3 with systolic murmur. No diastolic murmur. No rub. ABDOMEN: Soft, nontender. EXTREMITIES: No edema. LAB DATA: Lab data revealed BUN and creatinine 20 and 0.79. Potassium 3.6. IMPRESSION: 1. Status post stenting of the left main, stable. 2. Prior stenting of the LAD. 3. History of hypertension. 4. Hyperlipidemia. RECOMMENDATION: From the cardiac standpoint, she is stable. We will increase her level activity. She should be able to be discharged home today and follow up as an outpatient with Dr. Otto. ZION / ELIZABETHN: [id number] /
[2019-03-31] MEDS: CLOPIDOGREL 75 MG TAB PO SCH (10:06)
[2019-03-31] MEDS: POTASSIUM CHLORIDE ER 20 MEQ TAB.ER PO SCH (10:06)
[2019-03-31] MEDS: ESCITALOPRAM 10 MG TAB PO SCH (10:06)
[2019-03-31] MEDS: hydrALAZINE HCL 25 MG TAB PO SCH ×2 (10:06→15:54)
[2019-03-31] MEDS: ATORVASTATIN 40 MG TAB PO SCH (10:07)
[2019-03-31] MEDS: DONEPEZIL 5 MG TAB PO SCH (10:07)
[2019-03-31] MEDS: ASPIRIN 81 MG PO SCH (10:07)
[2019-03-31] MEDS: INSULIN NPH 300 UNIT/3 ML VIAL SQ SCH (10:09)
[2019-03-31] MEDS: HEPARIN SODIUM,PORCINE 5,000 UNIT/ML 1 ML VIAL SQ SCH (10:21)
[2019-03-31] MEDS: guaiFENesin 600 MG TABLET.ER PO SCH (10:22)
[2019-03-31] MEDS: FUROSEMIDE 40 MG TAB PO SCH ×2 (10:22→15:54)
[2019-03-31] MEDS: FAMOTIDINE 20 MG TAB PO SCH (10:22)
[2019-03-31 12:00] VITALS: RESP 16; TEMP 98.1
[2019-03-31 12:01] VITALS: PULSE 76
[2019-03-31 12:14] LABS: Glucose,Whole Blood 153 mg/dL (75-99)
--- NOTE | 2019-03-31 12:34 | P.DS ---
Providers Date of admission: 03/20/19 16:06 Attending physician: Audra Gonzalez MD Consults: 03/20/19 16:06 Consult Physician Routine Consulting Provider: Amarilis Felder Consult Reason/Comments: Acute pulmonary edema Do you want consulting provider notified?: Yes 03/20/19 17:27 Consult Physician Routine Consulting Provider: Zion Garnica Consult Reason/Comments: SONI on CKD Do you want consulting provider notified?: Yes Consult Physician Routine Consulting Provider: Anabel Arellano Consult Reason/Comments: pulmonary edema Do you want consulting provider notified?: Yes 03/29/19 12:27 Consult Physician Routine Consulting Provider: Amarilis Felder Consult Reason/Comments: Post Interventional patient Do you want consulting provider notified?: Already Contacted Primary care physician: Yee Sales [facility] Course: 89-year-old female one of Dr. Sales discharge on 03/15 with past medical history of systolic congestive heart failure, severe mitral regurgitation, mod erate aortic stenosis, hypertension, chronic kidney disease stage III, type 2 diabetes, memory loss mostly is examined disease, known coronary artery disease, recurrent depression, hyperlipidemia who was just discharged a week ago after being treated for CHF exacerbation and NSTEMI. According to the daughter bedside patient became nonverbal and unresponsive and was brought to the ER. On evaluation in the ER patient was only responsive to painful stimulus. Within few minutes patient recovered and was oriented 3. Brain CT was negative for any new strokes. Venous blood gas was unremarkable. Labs ordered suggestive of hemoglobin of 10.1 stable as compared to the previous labs, BUN/creatinine 29 and creatinine 1.1, glucose 220 6B UN 29, BNP 12,400, troponin 0.021. Echo obtained during last admission suggest EF of 35-40% with apical inferior lateral hypokinesia. Cardiology and and pulmonary was consulted. Chest x-ray suggestive of pulmonary venous congestion and cardiomegaly. The daughter bedside and was not relating to give Lasix to the patient. On evaluation in the ER patient was currently on 6 L of oxygen saturating well but very short of breath trying to catch her breath on 6 L with symptoms positive for paroxysmal nocturnal dyspnea, orthopnea with bilateral lower extremity edema, no fever no chills no cough production. White is obtained suggest night temp of 98.6, pulse 82 respiratory rate 20 blood pressure 146/72 saturating at 91% On 6 L spelled since patient was short of breath on 6 L patient was switched to a nonrebreather and will be monitored overnight in the ICU 03/21: Patient is seen on the cardiac stepdown unit. She has been seen by cardiology with recommendations to resume her home diuretics and stop the IV Lasix, gradually resume beta giselle and consider adding Aldactone. Norvasc was discontinued. Patient has been afebrile, heart rate in the 70s, blood pressure 107/63, patient was on BiPAP and currently on nasal cannula high flow at 9 L. R epeat lab work reveals white count is 8.4, hemoglobin 10.7. Renal function has increased with a BUN of 42 and creatinine 1.68. Blood sugars are running between 181 and 210. The patient continues to have wheezing we will decrease her Solu-Medrol to 40 mg every 8 hours. Breathing is improved from yesterday. She denies having any abdominal pain. She is complaining of some left-sided chest pain that is tender to palpation. She denies any palpitations. She has a Sunshine catheter in place and diuresing well. Weight is down 3 kg. 03/22: The patient has been afebrile, heart rate in the 80s and 90s, blood pressure 120/48, patient is currently on high flow nasal cannula at 15 L pulse oxing 88-90%. WBC 8.7, hemoglobin 9.7. Sodium 136, potassium 4.4, chloride 105, CO2 20, BUN 55 and creatinine 1.7 to. Blood sugar this morning was 216. Solu-Medrol has been decreased to 40 every 12 hours by pulmonary medicine. Patient to use BiPAP as needed. Patient is also seen and followed by Dr. Farmer and Lasix was changed to IV. She is currently on IV Lasix 40 mg every 12 hours. Discussed CODE STATUS with the patient in depth and she wishes to be a full code and intubated if necessary. Patient's prognosis is poor. Patient and daughter to talk with cardiology regarding options regarding surgery and heart catheterization. Patient does not appear to be a surgical candidate and prognosis is poor. 03/23: Patient is afebrile, heart rate in the 90s, blood pressure 132/63, pulse ox 94% on 15 L nasal cannula. WBC is 11.3, hemoglobin 10.6. Sodium 134, potassium 5.1, chloride 105, CO2 21, BUN 52 and creatinine 1.29, blood sugars running between 128 and 221. Repeat chest x-ray reveals bilateral infiltrate and pleural effusions correlate for heart failure. Patient states that her breathing is improved today. She has no pedal edema. Sunshine catheter is draining clear shiv urine. Oxygen time of eval is down 8 L. She is currently on Solu-Medrol at 40 mg every 12 hours and IV Lasix 40 mg every 12. 03/24: The patient developed flash pulmonary edema yesterday and chest pain and was started on nitroglycerin sublingual and received extra dose of Lasix. She was also placed on BiPAP overnight. She is currently on 10 L high flow nasal cannula and pulse oxing 96%. Cardiology is planning for heart catheterization and SALO on Wednesday. Patient is continued on IV Lasix 40 mg twice daily. She has been afebrile, heart rate in the 90s. Blood sugars have been elevated at 189- 260 and patient was started last evening on NovoLog scheduled with meals and NPH 10 units twice daily. Patient's daughter is at the bedside and has been updated. 03/25: Patient is sitting up in bed resting comfortably today without any complaints or concerns. She is awake alert and in no acute distress. She is still requiring 10 L of high flow nasal cannula to maintain O2 saturations in the 90s. Patient continues to be afebrile. Hemodynamically stable. W BC 9.9, hemoglobin 11.7. BUN has improved to 38, creatinine 0.92, GFR 56. Patient continues to be on IV Lasix 40 mg twice a day. 03/26: Patient is sitting up in bed resting comfortably without any complaints. She is awake and alert with no acute distress. She continues to require high flow oxygen via nasal cannula to maintain O2 saturations. Patient continues to be afebrile. Hemodynamically stable. Patient is able to tolerate lying flat she will proceed with a cardiac catheterization and transesophageal echocardiogram tomorrow. Creatinine has improved to 0.83, BUN 33 03/27: SALO reveals EF 35%, moderate aortic stenosis, [id number] tricuspid regurgitation, moderate mitral regurgitation, no pericardial effusion. Heart catheterization performed by Dr. Otto as well finding severe disease involving the mid shaft of the left main, patent stent in the LAD. Consult with cardiothoracic surgeon for evaluation of CABG. Patient's O2 needs have significantly improved and she is pulse oxing 95-97% on 2 L nasal cannula. Patient is resting comfortably in bed. Heart rate in the 70s and 80s, blood pressure 105/57 and patient has been afebrile. Blood sugars are running between 114 and 144. Repeat chest x-ray done this morning shows stable findings suggestive of COPD and bilateral lower lobe infiltrates. 03/28: Patient denies any new complaints. Her breathing is stable. Sunshine catheter will be discontinued today. Urinalysis was sent last night and found to be cloudy with leukoesterase large, WBCs greater than 182 and patient started on IV Rocephin for UTI. Patient is scheduled with cardiology for stent placement tomorrow in the LAD. She is currently pulse oxing 97% on 2 L nasal cannula. Patient's daughter has communicated that she will not be able to take the patient home until Wednesday. 03/29: IV Lasix was changed to oral yesterday. Urine cultures positive for gram- negative bacilli. She is continued on ceftriaxone. Patient has gone for PCI of the LAD. 03/30 patient examined bedside is sitting comfortably in bed on 3 L of oxygen saturating well in 98%. Patient denies any chest pain shortness of breath in the setting in the lower extremity. She is able to walk with physical therapy with the help of walker. PT recommendations are pending possible discharge home with home care patient underwent stenting of the LAD yesterday. Labs are stable with a BUN 22 creatinine 0.75 sodium 138 potassium 3.9 currently on oral diuretic 40 mg twice daily. 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 Patient feels comfortable to go home today. Temp is 98.1 pulse 83 respiratory rate 16 blood pressure 122/60. CMP is unremarkable with a creatinine of 0.79 glucose ranging from 96-153. Discharge diagnosis 1 acute shortness of breath secondary to acute on chronic systolic heart failure, moderate aortic stenosis, severe mitral regurgitation and bilateral pleural effusions. 2 acute on chronic hypoxic respiratory failure. resolved 3 bilateral pleural effusion:resolved 4 hypertension. 5 chronic kidney disease stage 3. 6 type 2 diabetes. 7 non-ST segment elevation myocardial infarction status post stenting of LAD on 03/29 8 memory loss: Most likely Alzheimer disease 9 history of coronary artery disease. 10 recurrent depression 11 hyperlipidemia 12 UTI completed course CC a copy of discharge to Dr. Sales Disposition home with home care Plan - Discharge Summary Discharge Rx Participant: No New Discharge Prescriptions: New Clopidogrel [Plavix] 75 mg PO DAILY #30 tab Continue Aspirin [Adult Low Dose Aspirin EC] 81 mg PO DAILY Famotidine [Pepcid] 20 mg PO DAILY Atorvastatin [Lipitor] 40 mg PO DAILY Galantamine [Razadyne] 4 mg PO AC-BID Escitalopram [Lexapro] 10 mg PO DAILY Isosorbide Mononitrate ER [Imdur] 30 mg PO DAILY #30 tab.er.24h Ondansetron [Zofran] 4 mg PO Q8HR PRN PRN Reason: Nausea Semaglutide [Ozempic] 2 mg SQ WE Linagliptin [Tradjenta] 5 mg PO DAILY hydrALAZINE HCL [Apresoline] 25 mg PO TID Saline Nasal Gel [Jenner Nasal Gel] 1 applic TOPICAL Q4HR PRN gm PRN Reason: Dry Nasal Passages Furosemide [Lasix] 40 mg PO BID@0900,1600 #60 tab Changed Metoprolol Tartrate [Lopressor] 25 mg PO BID #0 Discontinued Ranolazine [Ranexa] 1,000 mg PO Q12HR #60 tab.er.12h amLODIPine [Norvasc] 10 mg PO DAILY #30 tab Discharge Medication List Aspirin [Adult Low Dose Aspirin EC] 81 mg PO DAILY 11/21/17 [History] Famotidine [Pepcid] 20 mg PO DAILY 11/21/17 [History] Atorvastatin [Lipitor] 40 mg PO DAILY 01/02/18 [History] Galantamine [Razadyne] 4 mg PO AC-BID 01/02/18 [History] Escitalopram [Lexapro] 10 mg PO DAILY 12/20/18 [History] Isosorbide Mononitrate ER [Imdur] 30 mg PO DAILY #30 tab.er.24h 01/05/19 [Rx] Ondansetron [Zofran] 4 mg PO Q8HR PRN 01/13/19 [History] Linagliptin [Tradjenta] 5 mg PO DAILY 03/09/19 [History] Semaglutide [Ozempic] 2 mg SQ WE 03/09/19 [History] hydrALAZINE HCL [Apresoline] 25 mg PO TID 03/09/19 [History] Furosemide [Lasix] 40 mg PO BID@0900,1600 #60 tab 03/15/19 [Rx] Saline Nasal Gel [Jenner Nasal Gel] 1 applic TOPICAL Q4HR PRN gm 03/15/19 [Rx] Clopidogrel [Plavix] 75 mg PO DAILY #30 tab 03/31/19 [Rx] Metoprolol Tartrate [Lopressor] 25 mg PO BID #0 03/31/19 [Rx] Follow up Appointment(s)/Referral(s): Yee Sales MD [Primary Care Provider] - 1-2 days Dean Otto MD [STAFF PHYSICIAN] - 04/07/19 1:30 pm (Wednesday) [facility], [NON-STAFF] - Patient Instructions/Handouts: *Surgery [facility] - After Heart Catheterization - Spare Hand Carding Instructions, Left Heart Catheterization (DC) Discharge Disposition: HOME WITH HOME HEALTH SERVICES
[2019-03-31] MEDS: ISOSORBIDE MONONITRATE ER 30 MG TAB.ER.24H PO SCH (12:38)
--- NOTE | 2019-03-31 13:58 | P.PN ---
Subjective Patient is seen in follow-up for acute kidney injury which is resolved. GFR is back to baseline. Patient underwent cardiac catheterization on March 29 and had a stent placed to the left main coronary. She is currently sitting up in chair. Urine output is good. Oral intake is fair. No vomiting or diarrhea. Vital signs are stable. General: The patient appeared well nourished and normally developed. HEENT: Head exam is unremarkable. Neck is without jugular venous distension. LUNGS: Lungs are clear to auscultation and percussion. Breath sounds decreased. HEART: Rate and Rhythm are regular. First and second heart sounds normal. No murmurs, rubs or gallops. ABDOMEN: Abdominal exam reveals normal bowel sounds. Non-tender and non-distended. No evidence of peritonitis. EXTREMITITES: No clubbing, cyanosis, or edema. Objective - Vital Signs Vital signs: Vital Signs Temp 98.1 F 03/31/19 11:15 Pulse 76 03/31/19 12:00 Resp 16 03/31/19 11:15 BP 122/68 03/31/19 11:15 Pulse Ox 98 03/31/19 12:00 Intake & Output 03/30/19 03/31/19 03/31/19 18:59 06:59 18:59 Intake Total 840 100 290 Balance 840 100 290 Weight 80.2 kg Intake: Intake, IV Titration 50 Amount cefTRIAXone 1 gm In 50 Sodium Chloride 0.9% 50 ml @ 100 mls/hr IVPB Q24HR [facility] Rx#:[id number] Oral 840 100 240 Other: Voiding Method Toilet Toilet # Voids 1 1 1 # Bowel Movements 1 1 - Labs CBC & Chem 7: 03/28/19 05:30 03/31/19 05:57 Labs: Abnormal Lab Results - Last 24 Hours (Table) 03/30/19 03/30/19 03/31/19 Range/Units 16:35 20:34 05:57 BUN 20 H (7-17) mg/dL POC Glucose (mg/dL) 213 H 178 H (75-99) mg/dL 03/31/19 Range/Units 12:12 BUN (7-17) mg/dL POC Glucose (mg/dL) 153 H (75-99) mg/dL Assessment and Plan Plan: Assessment: 1. Acute kidney injury mostly prerenal secondary to hypotension. Resolved. GFR back to baseline. 2. Coronary artery disease status post stent to the left main coronary artery on March 29. 3. UTI with urine culture positive for E. coli. Maintained on antibiotics. 4. Systolic CHF with ejection fraction of 35-40% with moderate aortic stenosis and mitral regurgitation. 5. Insulin-dependent diabetes mellitus. 6. Hypokalemia secondary to diuresis. Stable. Plan: Maintain Lasix 40 mg orally twice daily along with potassium supplementation. Avoid nephrotoxins. Stable to be discharged home from nephrology standpoint. Repeat BMP in 2-3 days postdischarge. Follow up outpatient in the next 2 weeks.
[2019-03-31 15:55] VITALS: BP 133/70
== END 2019-03-31 16:00 | disposition home health service (06) | DRG 215 ==
LOC: EC 12:53 → 3SCARD 16:06 → 3NMEDONC 03-23 03:20 → 3SCARD 03-23 03:20
PROVIDERS: ADMIT Internal Medicine; ATTEND Internal Medicine
PROC: 4A023N7 Measurement of Cardiac Sampling and Pressure, Left Heart, Percutaneous Approach (ICD-10-PCS; 2019-03-27)
PROC: B2161ZZ Fluoroscopy of Right and Left Heart using Low Osmolar Contrast (ICD-10-PCS; 2019-03-27)
PROC: 027034Z Dilation of Coronary Artery, One Artery with Drug-eluting Intraluminal Device, Percutaneous Approach (ICD-10-PCS; principal; 2019-03-29 10:20)
PROC: 5A0221D Assistance with Cardiac Output using Impeller Pump, Continuous (ICD-10-PCS; principal; 2019-03-29 10:20)
PROC: 02HA3RJ Insertion of Short-term External Heart Assist System into Heart, Intraoperative, Percutaneous Approach (ICD-10-PCS; principal; 2019-03-29 10:20)
PROC: 5A09557 Assistance with Respiratory Ventilation, Greater than 96 Consecutive Hours, Continuous Positive Airway Pressure (ICD-10-PCS; principal; 2019-03-29 10:20)
DX: I13.0 Hypertensive heart and chronic kidney disease with heart failure and stage 1 through stage 4 chronic kidney disease, or unspecified chronic kidney disease (principal); I50.23 Acute on chronic systolic (congestive) heart failure; J96.21 Acute and chronic respiratory failure with hypoxia; N17.0 Acute kidney failure with tubular necrosis; F33.9 Major depressive disorder, recurrent, unspecified; N39.0 Urinary tract infection, site not specified; I08.0 Rheumatic disorders of both mitral and aortic valves; N18.3 Chronic kidney disease, stage 3 (moderate); G30.9 Alzheimer's disease, unspecified; F02.80 Dementia in other diseases classified elsewhere, unspecified severity, without behavioral disturbance, psychotic disturbance, mood disturbance, and anxiety; E86.0 Dehydration; E87.6 Hypokalemia; F01.50 Vascular dementia, unspecified severity, without behavioral disturbance, psychotic disturbance, mood disturbance, and anxiety; H35.30 Unspecified macular degeneration; I25.5 Ischemic cardiomyopathy; I44.0 Atrioventricular block, first degree; T50.2X5A Adverse effect of carbonic-anhydrase inhibitors, benzothiadiazides and other diuretics, initial encounter; I25.10 Atherosclerotic heart disease of native coronary artery without angina pectoris; E78.5 Hyperlipidemia, unspecified; E11.22 Type 2 diabetes mellitus with diabetic chronic kidney disease; H54.7 Unspecified visual loss; I95.9 Hypotension, unspecified; R11.2 Nausea with vomiting, unspecified; B96.20 Unspecified Escherichia coli [E. coli] as the cause of diseases classified elsewhere; I08.3 Combined rheumatic disorders of mitral, aortic and tricuspid valves; Z79.899 Other long term (current) drug therapy; I25.2 Old myocardial infarction; Z79.4 Long term (current) use of insulin; Z79.02 Long term (current) use of antithrombotics/antiplatelets; Z79.82 Long term (current) use of aspirin; Z82.49 Family history of ischemic heart disease and other diseases of the circulatory system; Z83.3 Family history of diabetes mellitus; Z86.73 Personal history of transient ischemic attack (TIA), and cerebral infarction without residual deficits; Z87.440 Personal history of urinary (tract) infections; Z87.891 Personal history of nicotine dependence; Z88.5 Allergy status to narcotic agent; Z90.49 Acquired absence of other specified parts of digestive tract; Z95.5 Presence of coronary angioplasty implant and graft; Z88.8 Allergy status to other drugs, medicaments and biological substances; Z88.6 Allergy status to analgesic agent; Z98.890 Other specified postprocedural states; Z99.81 Dependence on supplemental oxygen
CPT/HCPCS: 36415; 36600; 70450; 71045; 71046; 80048; 80053; 80061; 80074; 80306; 81001; 81003; 82140; 82805; 83036; 83540; 83550; 83605; 83735; 83880; 84443; 84484; 85025; 85610; 85730; 87070; 87077; 87086; 87186; 93005; 93312; 93320; 93325; 93458; 94640; 94660; 94760; 96361; 96374; 96375; 96376; 99291; C1874

== ENCOUNTER → 2019-05-25 | Outpatient (CLI) | payer MEDICARE, BC ==
--- NOTE | 2019-05-26 07:52 | XR ---
EXAMINATION TYPE: XR chest 2V DATE OF EXAM: 05/25/2019 COMPARISON: 03/27/2019 TECHNIQUE: PA and lateral views submitted. HISTORY: Cough FINDINGS: Postsurgical change along the cervical spine. Hyperinflation noted. Bilateral consolidation small eff usion. Arthropathy of the shoulders and degenerative change of the spine. IMPRESSION: 1. Stable x-ray compatible COPD and bilateral infiltrate and small effusion. Underlying interstitial lung disease or mild venous congestion not excluded.
== END | disposition home or self-care (01) ==
LOC: RADXRMAIN 15:46
PROVIDERS: ATTEND Family Medicine
DX: J44.9 Chronic obstructive pulmonary disease, unspecified (principal)
CPT/HCPCS: 71046

== ENCOUNTER 2019-10-07 10:31 | Inpatient (IN) | payer MEDICARE, BC ==
[2019-10-07] MEDS ORDERED: PANTOPRAZOLE 40 MG/10 ML VIAL IVP STA (10:43)
--- NOTE | 2019-10-07 11:17 | ED ---
General Adult HPI - General Chief complaint: GI Bleed Stated complaint: GI bleed Time Seen by Provider: 10/07/19 10:43 Source: patient, EMS Mode of arrival: EMS Limitations: no limitations - History of Present Illness Initial comments: Dictation was produced using [employer] dictation software. please excuse any grammatical, word or spelling errors. Chief Complaint: 89-year-old female presents with GI bleed. History of Present Illness: 89-year-old female presents with gastric intestinal bleed since yesterday. Patient states she's been having significant bright red blood per rectum since yesterday. She has multiple bowel movements passing gross blood and blood clots. Patient states she feels slightly lightheaded. Jose greenberg denies any orthostatic symptoms however. Patient has no history of GI bleed. She does not take any blood thinners. Patient has any rectal pain. No abdominal pain. Denies any nausea or vomiting. The ROS documented in this emergency department record has been reviewed and confirmed by me. Those systems with pertinent positive or negative responses have been documented in the HPI. All other systems are other negative and/or noncontributory. PHYSICAL EXAM: General Impression: Alert and oriented x3, not in acute distress HEENT: Normocephalic atraumatic, extra-ocular movements intact, pupils equal and reactive to light bilaterally, mucous membranes moist. Cardiovascular: Heart regular rate and rhythm, S1&S2 audible, no murmurs, rubs or gallops Chest: Lungs clear to auscultation bilaterally, no rhonchi, no wheeze, no rales Abdomen: Bowel sounds present, abdomen soft, non-tender, non-distended, no organomegaly Musculoskeletal: Pulses present and equal in all extremities, no peripheral edema Motor: no focal deficits noted Neurological: CN II-XII grossly intact, no focal motor or sensory deficits noted Skin: Intact with no visualized rashes Psych: Normal affect and mood Rectal exam: Dried blood at the rectal orifice, no palpable masses in the rectal vault ED course: 89-year-old female presents with bright red blood per rectum since yesterday. Patient has slight symptoms of anemia. Signs upon arrival are within acceptable limits. Patient's medications were reviewed. She is on a beta giselle. Laboratory evaluation obtained. CBC is unremarkable. Coag panel is un remarkable. Metabolic panel shows no significant abnormalities. Stool occult blood is positive. While in the emergency department patient had more episodes of bright red blood per rectum. Discussed patient case with Dr. Guidry who is willing to accept patient's care to the intensive care unit. At this point patient is hemodynamically stable with stable hemoglobins. She does complain of some mild acute blood loss anemia symptoms. Patient was given Protonix. Discussed patient case with Dr. Brown who is willing to accept patient's care. EKG interpretation: Ventricular rate 66, sinus rhythm, AZ interval 212, care is 86, QTC 490. No AZ prolongation, no QTC prolongation, no ST or T-wave changes noted. EKG compared to 03/20/2019 showing no changes. Overall, this EKG is unremarkable - Related Data Home Medications Medication Instructions Recorded Confirmed Aspirin [Adult Low Dose Aspirin EC] 81 mg PO DAILY 11/21/17 10/07/19 Atorvastatin [Lipitor] 40 mg PO DAILY 01/02/18 10/07/19 Galantamine [Razadyne] 4 mg PO AC-BID 01/02/18 10/07/19 Escitalopram [Lexapro] 10 mg PO DAILY 12/20/18 10/07/19 Ondansetron [Zofran] 4 mg PO Q8HR PRN 01/13/19 10/07/19 Linagliptin [Tradjenta] 5 mg PO DAILY 03/09/19 10/07/19 Semaglutide [Ozempic] 2 mg SQ WE 03/09/19 10/07/19 Ergocalciferol [Vitamin D2] 50,000 unit PO Q14D 10/07/19 10/07/19 Furosemide [Lasix] 40 mg PO DAILY 10/07/19 10/07/19 Metoprolol Tartrate [Lopressor] 25 mg PO BID 10/07/19 10/07/19 hydrALAZINE HCL [Apresoline] 25 mg PO TID-W/MEALS 10/07/19 10/07/19 Previous Rx's Medication Instructions Recorded Isosorbide Mononitrate ER [Imdur] 30 mg PO DAILY #30 tab.er.24h 01/05/19 Clopidogrel [Plavix] 75 mg PO DAILY #30 tab 03/31/19 Allergies Allergy/AdvReac Type Severity Reaction Status Date / Time hydrocodone [From [place]] Allergy Rash/Hives Verified 10/07/19 12:35 naproxen sodium [From Aleve] Allergy Itching,bessie Verified 10/07/19 12:35 h glimepiride [From Amaryl] AdvReac Nausea & Verified 10/07/19 12:35 Vomiting Review of Systems ROS Statement: Those systems with pertinent positive or pertinent negative responses have been documented in the HPI. ROS Other: All systems not noted in ROS Statement are negative. 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 Last Myocardial Infarction Date:: 11/18/17 History of Any Multi-Drug Resistant Organisms: None Reported Past Surgical History: Appendectomy, Back Surgery, Cholecystectomy, Heart Catheterization With Stent Additional Past Surgical History / Comment(s): Low back surgery, cervical surgery, R wrist carpal tunnel release, colonoscopy (not completed d/t poor prep) about 10 yrs ago, EGD 01/2018 d/t abdominal pain. Past Anesthesia/Blood Transfusion Reactions: No Reported Reaction Additional Past Anesthesia/Blood Transfusion Reaction / Comment(s): Pt has clausterphobia. Date of Last Stent Placement:: 11/18/17 Past Psychological History: Depression Smoking Status: Never smoker Past Alcohol Use History: None Reported Past Drug Use History: None Reported - Past Family History Father Additional Family Medical History / Comment(s): Father at age 91 from old age. Mother Additional Family Medical History / Comment(s): Mother at age 85 with history of lupus. Brother(s) Additional Family Medical History / Comment(s): Patient's siblings have history of coronary artery disease, diabetes, hypertension, macular degeneration. Daughter(s) Additional Family Medical History / Comment(s): Patient has 11 children; 6 daughters and 5 sons. 3 have and 2 from kidney failure and one was murdered. Sister(s) Additional Family Medical History / Comment(s): Pt had a sister live to be 102 yrs old. General Exam Limitations: no limitations Course Vital Signs 10/07/19 10:33 Temperature 99.1 F Pulse Rate 69 Respiratory 18 Rate Blood Pressure 200/69 O2 Sat by Pulse 97 Oximetry Medical Decision Making - Lab Data Result diagrams: 10/07/19 11:20 10/07/19 11:20 Lab Results 10/07/19 10/07/19 10/07/19 Range/Units 11:20 11:20 11:20 WBC 7.2 (3.8-10.6) k/uL RBC 3.66 L (3.80-5.40) m/uL Hgb 11.7 (11.4-16.0) gm/dL Hct 34.1 (34.0-46.0) % MCV 93.3 (80.0-100.0) fL MCH 31.9 (25.0-35.0) pg MCHC 34.2 (31.0-37.0) g/dL RDW 13.0 (11.5-15.5) % Plt Count 254 (150-450) k/uL Neutrophils % 73 % Lymphocytes % 20 % Monocytes % 5 % Eosinophils % 1 % Basophils % 0 % Neutrophils # 5.2 (1.3-7.7) k/uL Lymphocytes # 1.4 (1.0-4.8) k/uL Monocytes # 0.3 (0-1.0) k/uL Eosinophils # 0.1 (0-0.7) k/uL Basophils # 0.0 (0-0.2) k/uL PT 11.3 (9.0-12.0) sec INR 1.1 (<1.2) APTT 23.2 (22.0-30.0) sec Sodium 141 (137-145) mmol/L Potassium 3.6 (3.5-5.1) mmol/L Chloride 106 (98-107) mmol/L Carbon Dioxide 26 (22-30) mmol/L Anion Gap 9 mmol/L BUN 40 H (7-17) mg/dL Creatinine 1.05 H (0.52-1.04) mg/dL Est GFR (CKD-EPI)AfAm 55 (>60 ml/min/1.73 sqM) Est GFR (CKD-EPI)NonAf 48 (>60 ml/min/1.73 sqM) Glucose 162 H (74-99) mg/dL Calcium 8.5 (8.4-10.2) mg/dL Total Bilirubin 1.2 (0.2-1.3) mg/dL AST 23 (14-36) U/L ALT 25 (9-52) U/L Alkaline Phosphatase 89 (38-126) U/L Total Protein 5.4 L (6.3-8.2) g/dL Albumin 3.2 L (3.5-5.0) g/dL Stool Occult Blood (Negative) Blood Type Blood Type Confirm Blood Type Recheck Bld Type Recheck Status Antibody Screen Spec Expiration Date 10/07/19 10/07/19 10/07/19 Range/Units 11:20 11:20 12:00 WBC (3.8-10.6) k/uL RBC (3.80-5.40) m/uL Hgb (11.4-16.0) gm/dL Hct (34.0-46.0) % MCV (80.0-100.0) fL MCH (25.0-35.0) pg MCHC (31.0-37.0) g/dL RDW (11.5-15.5) % Plt Count (150-450) k/uL Neutrophils % % Lymphocytes % % Monocytes % % Eosinophils % % Basophils % % Neutrophils # (1.3-7.7) k/uL Lymphocytes # (1.0-4.8) k/uL Monocytes # (0-1.0) k/uL Eosinophils # (0-0.7) k/uL Basophils # (0-0.2) k/uL PT (9.0-12.0) sec INR (<1.2) APTT (22.0-30.0) sec Sodium (137-145) mmol/L Potassium (3.5-5.1) mmol/L Chloride (98-107) mmol/L Carbon Dioxide (22-30) mmol/L Anion Gap mmol/L BUN (7-17) mg/dL Creatinine (0.52-1.04) mg/dL Est GFR (CKD-EPI)AfAm (>60 ml/min/1.73 sqM) Est GFR (CKD-EPI)NonAf (>60 ml/min/1.73 sqM) Glucose (74-99) mg/dL Calcium (8.4-10.2) mg/dL Total Bilirubin (0.2-1.3) mg/dL AST (14-36) U/L ALT (9-52) U/L Alkaline Phosphatase (38-126) U/L Total Protein (6.3-8.2) g/dL Albumin (3.5-5.0) g/dL Stool Occult Blood Positive H (Negative) Blood Type B Negative Blood Type Confirm Blood Type Recheck No Previous Record Bld Type Recheck Status CABO Indicated Antibody Screen NEGATIVE Spec Expiration Date 10/10/2019 - 231910/07/19 Range/Units 12:00 WBC (3.8-10.6) k/uL RBC (3.80-5.40) m/uL Hgb (11.4-16.0) gm/dL Hct (34.0-46.0) % MCV (80.0-100.0) fL MCH (25.0-35.0) pg MCHC (31.0-37.0) g/dL RDW (11.5-15.5) % Plt Count (150-450) k/uL Neutrophils % % Lymphocytes % % Monocytes % % Eosinophils % % Basophils % % Neutrophils # (1.3-7.7) k/uL Lymphocytes # (1.0-4.8) k/uL Monocytes # (0-1.0) k/uL Eosinophils # (0-0.7) k/uL Basophils # (0-0.2) k/uL PT (9.0-12.0) sec INR (<1.2) APTT (22.0-30.0) sec Sodium (137-145) mmol/L Potassium (3.5-5.1) mmol/L Chloride (98-107) mmol/L Carbon Dioxide (22-30) mmol/L Anion Gap mmol/L BUN (7-17) mg/dL Creatinine (0.52-1.04) mg/dL Est GFR (CKD-EPI)AfAm (>60 ml/min/1.73 sqM) Est GFR (CKD-EPI)NonAf (>60 ml/min/1.73 sqM) Glucose (74-99) mg/dL Calcium (8.4-10.2) mg/dL Total Bilirubin (0.2-1.3) mg/dL AST (14-36) U/L ALT (9-52) U/L Alkaline Phosphatase (38-126) U/L Total Protein (6.3-8.2) g/dL Albumin (3.5-5.0) g/dL Stool Occult Blood (Negative) Blood Type Blood Type Confirm B Negative Blood Type Recheck Bld Type Recheck Status Antibody Screen Spec Expiration Date Critical Care Time Critical Care Time: Yes (30) Disposition Clinical Impression: Bright red blood per rectum Disposition: ADMITTED IP TO THIS [facility] Condition: Critical Referrals: Yee Sales MD [Primary Care Provider] - 1-2 days Decision Time: 13:01
[2019-10-07 11:34] LABS: Basophils % (A) 0 %; Eosinophils # (A) 0.1 k/uL (0-0.7); Eosinophils % (A) 1 %; HCT 34.1 % (34.0-46.0); HGB 11.7 gm/dL (11.4-16.0); Lymphocytes # (A) 1.4 k/uL (1.0-4.8); Lymphocytes % (A) 20 %; MCH 31.9 pg (25.0-35.0); MCHC 34.2 g/dL (31.0-37.0); MCV 93.3 fL (80.0-100.0); Mean Platelet Volume 5.6; Monocytes # (A) 0.3 k/uL (0-1.0); Monocytes % (A) 5 %; Neutrophils # (A) 5.2 k/uL (1.3-7.7); Neutrophils % (A) 73 %; Platelet Count 254 k/uL (150-450); RBC 3.66 m/uL (3.80-5.40); WBC 7.2 k/uL (3.8-10.6)
[2019-10-07 11:43] LABS: INR 1.1 (<1.2); Partial Thromboplastin Time 23.2 sec (22.0-30.0); Prothrombin Time 11.3 sec (9.0-12.0)
[2019-10-07 11:54] LABS: Albumin 3.2 g/dL (3.5-5.0); Calcium 8.5 mg/dL (8.4-10.2); Potassium 3.6 mmol/L (3.5-5.1); Total Bilirubin 1.2 mg/dL (0.2-1.3); Total Protein 5.4 g/dL (6.3-8.2)
[2019-10-07] MEDS ORDERED: NALOXONE 0.4 MG/ML 1 ML VIAL IV PRN (12:54)
[2019-10-07] MEDS ORDERED: MORPHINE SULFATE 2 MG/ML SYRINGE IV PRN (12:54)
[2019-10-07] MEDS: SODIUM CHLORIDE 0.9% 1,000 ML IV SCH ×2 (13:35→19:49)
[2019-10-07 13:55] LABS: Glucose,Whole Blood 152 mg/dL (75-99)
[2019-10-07 14:35] VITALS: BMI 28.2
--- NOTE | 2019-10-07 15:08 | P.HPIM ---
History of Present Illness H&P Date: 10/07/19 Chief Complaint: Severe rectal bleed 89-year-old pleasant female one of my female patients known medical history of systolic congestive heart failure, severe mitral regurgitation moderate aortic stenosis, hypertension, chronic kidney disease stage III, type 2 diabetes, memory loss mostly is examined disease, known coronary artery disease, recurrent depression, hyperlipidemia admitted through the emergency room secondary to severe rectal bleeding, which started 2 days prior to admission. She has significant bleeding yesterday, however did not pay attention to it, however today, the stools are now clotted, patient cannot reach the bathroom without leaking blood in the stool, and the underwear, and trailing blood all over the floor until she could reach the bathroom. She is on aspirin and Plavix for history of an NSTEMI, March 2019. She had similar episode of GI bleed in December 2018 which was medically managed at that time, did not require any colonoscopy at that time. She also has lightheadedness, no syncope, some abdominal cramps, however no abdominal pain no chest pain no dysphagia, no shortness of breath no leg edema. No epigastric pain, patient is not on any NSAIDs prior to admission except for prescribed Plavix and aspirin. In the emergency room, hemoglobin 11.7, patient's admitted for a lower GI bleed most likely diverticular bleed, without any current evidence of diverticulitis, aspirin and Plavix on hold, consult with Dr. Sullivan, and will be admitted to ICU with Dr. Guidry refinery process engineer consulted Review of Systems Constitutional: Reports as per HPI, Reports fatigue, Denies anorexia, Denies chills, Denies chronic headaches, Denies chronic pain, Denies daytime sleepiness, Denies fever, Denies malaise, Denies night sweats, Denies poor appetite, Denies sweats, Denies weakness, Denies weight gain, Denies weight loss Ears, nose, mouth and throat: Reports as per HPI, Denies ant. neck pain, Denies bleeding gums, Denies dental pain, Denies dysphagia, Denies epistaxis, Denies headache, Denies hoarseness, Denies mouth pain, Denies nasal congestion, Denies nasal discharge, Denies neck fullness/pressure, Denies neck lump, Denies nose pain, Denies odynophagia, Denies post-nasal drip, Denies sinus pain, Denies sinus pressure, Denies swelling in mouth, Denies swelling in throat, Denies sore throat, Denies vertigo, Denies voice changes Cardiovascular: Reports as per HPI Respiratory: Reports as per HPI, Denies congestion, Denies cough, Denies cough with sputum, Denies dyspnea, Denies excessive sputum, Denies hemoptysis, Denies home oxygen, Denies pain, Denies pain on inspiration, Denies pleurisy, Denies respiratory infections, Denies sleep apnea, Denies snoring, Denies wheezing Gastrointestinal: Reports as per HPI, Reports hematochezia, Denies abdominal pain, Denies belching, Denies bloating, Denies BRBPR, Denies change in bowel habits, Denies coffee ground emesis, Denies constipation, Denies diarrhea, Denies dyspepsia, Denies early satiety, Denies excessive gas, Denies heartburn, Denies hematemesis, Denies indigestion, Denies jaundice, Denies lactose intolerance, Denies loss of appetite, Denies melena, Denies nausea, Denies vomiting Genitourinary: Reports as per HPI, Denies abnormal vaginal bleeding, Denies decreased libido, Denies difficulty conceiving, Denies difficulty voiding, Denies dysmenorrhea, Denies dyspareunia, Denies dysuria, Denies flank pain, Denies genital sores, Denies hematuria, Denies hot flashes, Denies incomplete emptying, Denies kidney stones, Denies menorrhagia, Denies mixed incontinence, Denies nocturia, Denies pelvic pain, Denies post void dribbling, Denies , Denies prolapse symptoms, Denies stress incontinence, Denies urge incontinence, Denies urgency, Denies urinary frequency, Denies vaginal discharge, Denies vaginal dryness, Denies vaginal itching, Denies vaginal odor Menstruation: Reports as per HPI Musculoskeletal: Reports as per HPI Integumentary: Reports as per HPI (No bruises) Neurological: Reports as per HPI, Denies aphasia, Denies ataxia, Denies balance difficulties, Denies burning pain, Denies change in mentation, Denies change in smell/taste, Denies change in speech, Denies confusion, Denies convulsions, Denies double vision, Denies gait dysfunction, Denies head injury, Denies heada ches, Denies hearing difficulties, Denies lack of coordination, Denies loss of vision, Denies memory loss, Denies migraines, Denies motor disturbance, Denies numbness, Denies paralysis, Denies paresthesias, Denies seizures, Denies sensory deficit, Denies spasticity, Denies syncope, Denies tic, Denies tingling, Denies transient paralysis, Denies tremors, Denies vertigo, Denies weakness, Denies visual changes Psychiatric: Reports as per HPI Endocrine: Reports as per HPI Past Medical History Past Medical History: Coronary Artery Disease (CAD), Chest Pain / Angina, Heart Failure, CVA/TIA, Diabetes Mellitus, GI Bleed, Hyperlipidemia, Hypertension, Myocardial Infarction (AL), Renal Disease Additional Past Medical History / Comment(s): Other hx: Dysphagia, NIDDM type II, neuropathy bilateral hands, home oxygen which she wears prn, chronic kidney disease stage II, UTIs, small hiatal hernia, vascular dementia, 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 Last Myocardial Infarction Date:: 11/18/17 History of Any Multi-Drug Resistant Organisms: None Reported Past Surgical History: Appendectomy, Back Surgery, Cholecystectomy, Heart Catheterization With Stent Additional Past Surgical History / Comment(s): Low back surgery, cervical surgery, R wrist carpal tunnel release, colonoscopy (not completed d/t poor prep) about 10 yrs ago, EGD 01/2018 d/t abdominal pain. Past Anesthesia/Blood Transfusion Reactions: No Reported Reaction Additional Past Anesthesia/Blood Transfusion Reaction / Comment(s): Pt has clausterphobia. Date of Last Stent Placement:: 11/18/17 Past Psychological History: Depression Additional Psychological History / Comment(s): Pt resides with her daughter, Julia, who is her legal gaurdian and caregiver. She uses a walker at times but is mostly in a wheelchair. She has had increased depression off and on the past few months over her son's on 04/17/18. She states she is not suicidal. She is currently receiving [facility]. She has a shower chair, walker oxygen and wheelchair. Smoking Status: Former smoker Past Alcohol Use History: None Reported Additional Past Alcohol Use History / Comment(s): Pt started smoking in 1961 and quit in 1982. No illicit drug use. No alcohol use. Past Drug Use History: None Reported - Past Family History Father Additional Family Medical History / Comment(s): Father at age 91 from old age. Mother Additional Family Medical History / Comment(s): Mother at age 85 with history of lupus. Brother(s) Additional Family Medical History / Comment(s): Patient's siblings have history of coronary artery disease, diabetes, hypertension, macular degeneration. Daughter(s) Additional Family Medical History / Comment(s): Patient has 11 children; 6 daughters and 5 sons. 3 have and 2 from kidney failure and one was murdered. Sister(s) Additional Family Medical History / Comment(s): Pt had a sister live to be 102 yrs old. Medications and Allergies Home Medications Medication Instructions Recorded Confirmed Type Aspirin [Adult Low Dose Aspirin EC] 81 mg PO DAILY 11/21/17 10/07/19 History Atorvastatin [Lipitor] 40 mg PO DAILY 01/02/18 10/07/19 History Galantamine [Razadyne] 4 mg PO AC-BID 01/02/18 10/07/19 History Escitalopram [Lexapro] 10 mg PO DAILY 12/20/18 10/07/19 History Isosorbide Mononitrate ER [Imdur] 30 mg PO DAILY #30 tab.er.24h 01/05/19 10/07/19 Rx Ondansetron [Zofran] 4 mg PO Q8HR PRN 01/13/19 10/07/19 History Linagliptin [Tradjenta] 5 mg PO DAILY 03/09/19 10/07/19 History Semaglutide [Ozempic] 2 mg SQ WE 03/09/19 10/07/19 History Clopidogrel [Plavix] 75 mg PO DAILY #30 tab 03/31/19 10/07/19 Rx Ergocalciferol [Vitamin D2] 50,000 unit PO Q14D 10/07/19 10/07/19 History Furosemide [Lasix] 40 mg PO DAILY 10/07/19 10/07/19 History Metoprolol Tartrate [Lopressor] 25 mg PO BID 10/07/19 10/07/19 History hydrALAZINE HCL [Apresoline] 25 mg PO TID-W/MEALS 10/07/19 10/07/19 History Allergies Allergy/AdvReac Type Severity Reaction Status Date / Time hydrocodone [From [place]] Allergy Rash/Hives Verified 10/07/19 12:35 naproxen sodium [From Aleve] Allergy Itching,bessie Verified 10/07/19 12:35 h glimepiride [From Amaryl] AdvReac Nausea & Verified 10/07/19 12:35 Vomiting Physical Exam Vitals: Vital Signs Temp Pulse Resp BP Pulse Ox 10/07/19 14:00 98.1 F 67 19 125/110 98 10/07/19 13:55 71 18 125/110 91 L 10/07/19 13:29 99.0 F 66 18 152/62 99 10/07/19 13:00 65 18 177/67 99 10/07/19 12:00 64 18 157/90 100 10/07/19 10:33 99.1 F 69 18 200/69 97 Intake and Output 10/06/19 10/07/19 10/07/19 22:59 06:59 14:59 Other: Weight 63.503 kg - Constitutional General appearance: average body habitus, cooperative, no acute distress - EENT Eyes: anicteric sclerae, EOMI, PERRLA, normal appearance - Neck Neck: normal ROM - Respiratory Respiratory: bilateral: CTA, negative: diminished, dullness, rales, wheezing - Cardiovascular Rhythm: regular Heart sounds: normal: S1, S2 Abnormal Heart Sounds: no systolic murmur, no diastolic murmur, no rub, no S3 Gallop, no S4 Gallop, no click, no other - Gastrointestinal General gastrointestinal: normal bowel sounds, soft - Integumentary Integumentary: decreased turgor, normal - Neurologic Neurologic: CNII-XII intact - Musculoskeletal Musculoskeletal: gait normal, strength equal bilaterally - Psychiatric Psychiatric: A&O x's 3, appropriate affect, intact judgment & insight Results CBC & Chem 7: 10/07/19 11:20 10/07/19 11:20 Labs: Abnormal Lab Results - Last 24 Hours (Table) 10/07/19 10/07/19 10/07/19 Range/Units 11:20 11:20 11:20 RBC 3.66 L (3.80-5.40) m/uL BUN 40 H (7-17) mg/dL Creatinine 1.05 H (0.52-1.04) mg/dL Glucose 162 H (74-99) mg/dL POC Glucose (mg/dL) (75-99) mg/dL Total Protein 5.4 L (6.3-8.2) g/dL Albumin 3.2 L (3.5-5.0) g/dL Stool Occult Blood Positive H (Negative) 10/07/19 Range/Units 13:54 RBC (3.80-5.40) m/uL BUN (7-17) mg/dL Creatinine (0.52-1.04) mg/dL Glucose (74-99) mg/dL POC Glucose (mg/dL) 152 H (75-99) mg/dL Total Protein (6.3-8.2) g/dL Albumin (3.5-5.0) g/dL Stool Occult Blood (Negative) Laboratory Results WBC 7.2 k/uL (3.8-10.6) 10/07/19 11:20 RBC 3.66 m/uL (3.80-5.40) L 10/07/19 11:20 Hgb 11.7 gm/dL (11.4-16.0) 10/07/19 11:20 Hct 34.1 % (34.0-46.0) 10/07/19 11:20 MCV 93.3 fL (80.0-100.0) 10/07/19 11:20 MCH 31.9 pg (25.0-35.0) 10/07/19 11:20 MCHC 34.2 g/dL (31.0-37.0) 10/07/19 11:20 RDW 13.0 % (11.5-15.5) 10/07/19 11:20 Plt Count 254 k/uL (150-450) 10/07/19 11:20 Neutrophils % 73 % 10/07/19 11:20 Lymphocytes % 20 % 10/07/19 11:20 Monocytes % 5 % 10/07/19 11:20 Eosinophils % 1 % 10/07/19 11:20 Basophils % 0 % 10/07/19 11:20 Neutrophils # 5.2 k/uL (1.3-7.7) 10/07/19 11:20 Lymphocytes # 1.4 k/uL (1.0-4.8) 10/07/19 11:20 Monocytes # 0.3 k/uL (0-1.0) 10/07/19 11:20 Eosinophils # 0.1 k/uL (0-0.7) 10/07/19 11:20 Basophils # 0.0 k/uL (0-0.2) 10/07/19 11:20 PT 11.3 sec (9.0-12.0) 10/07/19 11:20 INR 1.1 (<1.2) 10/07/19 11:20 APTT 23.2 sec (22.0-30.0) 10/07/19 11:20 Sodium 141 mmol/L (137-145) 10/07/19 11:20 Potassium 3.6 mmol/L (3.5-5.1) 10/07/19 11:20 Chloride 106 mmol/L (98-107) 10/07/19 11:20 Carbon Dioxide 26 mmol/L (22-30) 10/07/19 11:20 Anion Gap 9 mmol/L 10/07/19 11:20 BUN 40 mg/dL (7-17) H 10/07/19 11:20 Creatinine 1.05 mg/dL (0.52-1.04) H 10/07/19 11:20 Est GFR (CKD-EPI)AfAm 55 (>60 ml/min/1.73 sqM) 10/07/19 11:20 Est GFR (CKD-EPI)NonAf 48 (>60 ml/min/1.73 sqM) 10/07/19 11:20 Glucose 162 mg/dL (74-99) H 10/07/19 11:20 POC Glucose (mg/dL) 152 mg/dL (75-99) H 10/07/19 13:54 POC Glu Marketing Instructor ID Day, Karey 10/07/19 13:54 Calcium 8.5 mg/dL (8.4-10.2) 10/07/19 11:20 Total Bilirubin 1.2 mg/dL (0.2-1.3) 10/07/19 11:20 AST 23 U/L (14-36) 10/07/19 11:20 ALT 25 U/L (9-52) 10/07/19 11:20 Alkaline Phosphatase 89 U/L (38-126) 10/07/19 11:20 Total Protein 5.4 g/dL (6.3-8.2) L 10/07/19 11:20 Albumin 3.2 g/dL (3.5-5.0) L 10/07/19 11:20 Stool Occult Blood Positive (Negative) H 10/07/19 11:20 Blood Type B Negative 10/07/19 12:00 Blood Type Confirm B Negative 10/07/19 12:00 Blood Type Recheck No Previous Record 10/07/19 11:20 Bld Type Recheck Status CABO Indicated 10/07/19 11:20 Antibody Screen NEGATIVE 10/07/19 12:00 Spec Expiration Date 10/10/2019231910/07/19 11:20 Thrombosis Risk Factor Assmnt - DVT/VTE Prophylaxis DVT/VTE Prophylaxis: Mechanical Prophylaxis ordered, Low risk, early ambulation encouraged, Contraindicated - See note (Acute GI bleed) - Choose All That Apply Each Risk Factor Represents 3 Points: Age 75 years or older Thrombosis Risk Factor Assessment Total Risk Factor Score: 3 Thrombosis Risk Factor Assessment Level: Moderate Risk Assessment and Plan Plan: 1. Acute severe lower GI bleed, most likely secondary to diverticulosis, patient is currently monitored closely in ICU with serial hemoglobin, patient is okay for blood transfusion if needed, we'll transfuse for hemoglobin under 7. GI is on consult, colonoscopy might be needed to intervene for control of bleeding, however she remains at high risk of colonoscopy complications secondary to advanced age., Clear liquid diet, no current antibiotics needed 2. Acute blood loss anemia, we will transfuse for hemoglobin under 7 hemoglobin 11.7 iron studies to be done, 3. Acute renal insufficiency, CK D stage II , maintained adequate perfusion to vital organs including blood pressure, monitor creatinine, avoid NSAIDs, avoid hypotension 4 hypertension. Continue Norvasc 10 mg daily, Lasix 40 mg twice daily, hydralazine 25 mg 3 times daily, Imdur 30 mg daily, Lopressor 50 mg 3 times daily. Hold with parameters 5 type 2 diabetes. Continue NovoLog scale before meals and at bedtime, continue Tradjenta. Onozempic every Wednesday 2 mg, 7 history of non-ST segment elevation myocardial infarction with stent placement November 2017 holding off aspirin and Plavix Secondary to GI bleed 8 memory loss: Most likely Alzheimer disease, patient remain on galantamine 4 mg twice a day. 9 history of coronary artery disease. 10 recurrent depression: Patient has been on Lexapro 10 mg a day. 11. Severe valvular heart disease with severe MR with moderate aortic stenosis 11 hyperlipidemia: Remain on Lipitor 40 mg daily. GI prophylaxis with IV Protonix DVT prophylaxis with early ambulation and SCDs conjugation to GI bleed
[2019-10-07 15:39] LABS: Basophils # (A) 0.1 k/uL (0-0.2); Basophils % (A) 1 %; Eosinophils # (A) 0.1 k/uL (0-0.7); Eosinophils % (A) 2 %; HCT 31.5 % (34.0-46.0); HGB 10.7 gm/dL (11.4-16.0); Lymphocytes # (A) 2.3 k/uL (1.0-4.8); Lymphocytes % (A) 31 %; MCH 32.1 pg (25.0-35.0); MCHC 33.9 g/dL (31.0-37.0); MCV 94.7 fL (80.0-100.0); Mean Platelet Volume 5.5; Monocytes # (A) 0.4 k/uL (0-1.0); Monocytes % (A) 5 %; Neutrophils # (A) 4.4 k/uL (1.3-7.7); Neutrophils % (A) 59 %; Platelet Count 242 k/uL (150-450); RBC 3.33 m/uL (3.80-5.40); RDW 13.1 % (11.5-15.5); WBC 7.5 k/uL (3.8-10.6)
[2019-10-07 16:56] LABS: Glucose,Whole Blood 130 mg/dL (75-99)
[2019-10-07] MEDS: INSULIN ASPART (NovoLOG) 100 UNIT/ML VIAL SQ SCH ×2 (16:56→21:48)
[2019-10-07] MEDS: hydrALAZINE HCL 25 MG TAB PO SCH (17:00)
[2019-10-07 19:54] LABS: Basophils # (A) 0.1 k/uL (0-0.2); Basophils % (A) 2 %; Eosinophils # (A) 0.1 k/uL (0-0.7); Eosinophils % (A) 2 %; HCT 27.2 % (34.0-46.0); Lymphocytes # (A) 2.5 k/uL (1.0-4.8); Lymphocytes % (A) 35 %; MCH 31.8 pg (25.0-35.0); MCHC 32.7 g/dL (31.0-37.0); MCV 97.2 fL (80.0-100.0); Monocytes # (A) 0.4 k/uL (0-1.0); Monocytes % (A) 6 %; Neutrophils # (A) 3.9 k/uL (1.3-7.7); Neutrophils % (A) 54 %; Platelet Count 221 k/uL (150-450); RDW 13.1 % (11.5-15.5); WBC 7.2 k/uL (3.8-10.6)
[2019-10-07 20:02] LABS: HGB 8.9 gm/dL (11.4-16.0)
--- NOTE | 2019-10-07 20:53 | CONS ---
CONSULTATION PULMONARY/CRITICAL CARE CONSULTATION: REASON FOR CONSULTATION: GI bleed. DATE OF CONSULTATION: 10/07/2019 89-year-old female who sees Dr. Sales as a primary and also Dr. Otto as a iuss master analyst. She presents to the emergency room with 2 days worth of bright red bleeding per rectum as well as maroon stools per rectum. The daughter states that when she saw all the blood that her mother had been passing from the rectum, it looked like a "shark attack." Anyway, the patient presents to the emergency room with her major complaint being the GI bleed. In addition, she feels a little lightheaded and dizzy. She is having some abdominal pain. Seems to be diffusely throughout the abdomen, mostly in the epigastric area and maybe favoring the left side a bit. In addition, she has had a bit of back pain as well. Denies any fever, chills. No chest pain or chest discomfort. No pulmonary complaints. No shortness of breath, difficulty breathing, coughing, wheezing or phlegm production. No fever or chills. No chest pain or chest discomfort. No nausea, vomiting or diarrhea. No genitourinary complaints. I spoke to Dr. Segura in the emergency room and we thought that it would be best to put her here in the ICU to monitor her. HOME MEDICATIONS: Include aspirin, Lipitor, Dilantin, galantamine, Lexapro, Zofran, Tradjenta, ozempic, vitamin D2, Lasix, Lopressor, Apresoline, Imdur, and Plavix. ALLERGIES: Include NORCO, ALEVE, AND AMARYL. MEDICAL HISTORY: CAD, CHF, CVA, diabetes, hyperlipidemia, hypertension, myocardial infarction, and stage 2 chronic kidney disease. In addition, she suffers from a bit of dysphagia, bilateral neuropathy in her hands, home oxygen that she wears p.r.n., chronic UTIs, hiatal hernia, vascular dementia, bilateral eye blindness, macular degeneration, and unsteady gait. 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 Apparently a recent colonoscopy was attempted but she could not tolerate the prep and it was never done. Her previous colonoscopy was many years ago. SOCIAL HISTORY: Positive for previous tobacco use. She smoked more than 40 years ago. Never smoked heavily. Denies alcohol use. Denies illicit drug use. FAMILY HISTORY: Positive for a father who at age 91 from old age. A mother from lupus at age 85. She has a brother with CAD, diabetes, hypertension, and macular degeneration. She has 11 children, 6 daughters and 5 sons, 3 have from kidney disease and 1 was murdered. She also had a sister who lived to be 102 years old. REVIEW OF SYSTEMS: CONSTITUTIONAL: Negative. NEUROLOGIC: Lightheaded, dizziness. HEENT: Negative. CARDIOVASCULAR: Negative. PULMONARY: Negative. GI: Bright red bleeding and maroon stools per rectum for 2 days. : Negative. RHEUMATOLOGIC: Negative. IMMUNOLOGIC: Negative. ENDOCRINOLOGIC: Negative. DERMATOLOGIC: Negative. PHYSICAL EXAMINATION: VITAL SIGNS: Current vital signs include a temperature 98.1, heart rate 67, respiratory rate 19, blood pressure 125/72, room air saturation about 90%. Appears in no acute distress. Not really having much in the way of complaints at this time. HEENT examination is grossly unremarkable. Mucous membranes are moist. NECK: Supple. Full range of motion. No adenopathy, thyromegaly or neck vein distention. CARDIOVASCULAR examination reveals regular rhythm rate. Heart rate 67. It is regular. S1, S2 normal. She has a harsh murmur consistent with aortic stenosis. No S3-S4. LUNGS: Clear. Breath sounds equal. No wheezes, rhonchi, or crackles. ABDOMEN: Soft. Bowel sounds are heard. Minimal tenderness on palpation. Diffuse tenderness. EXTREMITIES are intact. No cyanosis, clubbing, or edema. SKIN: Without rash. NEUROLOGIC: Examination is brief but nonfocal. LABS: Reviewed. White count 7.2, hemoglobin 11.7, hematocrit 34.1, platelet count 354,000. PT/INR and PTT all normal. Sodium, potassium, chloride, CO2 all normal. Anion gap normal. BUN and creatinine were 40 and 1.05, suggesting some prerenal azotemia. Total protein 5.4, albumin 3.2. Stools for occult blood were positive. Medications are reviewed. Currently on Lipitor, Aricept, Lexapro, Apresoline, Imdur, Tradjenta, metoprolol, morphine p.r.n., Narcan, Protonix, ozempic and a saline IV at 100 mL an hour. I told Bailey to hold her Plavix and aspirin for now. ASSESSMENT: 1. Acute lower gastrointestinal bleed, which may relate to either angiodysplasia and/or diverticular disease. 2. Prerenal azotemia and mild dehydration. 3. History of coronary artery disease with previous myocardial infarction in November 2017, status post PCI and stent placement in February 2019. 4. History of heart failure. 5. Cerebrovascular accident. 6. Diabetes. 7. Hyperlipidemia. 8. Hypertension. 9. Chronic kidney disease. 10.Dysphagia. 11.Neuropathy. 12.History of small hiatal hernia. 13.Vascular dementia. 14.Macular degeneration. PLAN: The patient will be monitored here in the ICU. We will get frequent hemoglobin and hematocrit. Probably she will have some hemodilution and her hemoglobin will drop. We are holding the aspirin and Plavix. She is on a proton pump inhibitor. We will place some nasal O2 on her 2 L. Additional recommendations and suggestions are forthcoming. Prognosis is guarded. MMODL / IJN: [id number] /
[2019-10-07 21:17] LABS: Glucose,Whole Blood 158 mg/dL (75-99)
[2019-10-07] MEDS: METOPROLOL TARTRATE 25 MG TAB PO SCH (21:48)
[2019-10-07] MEDS: DONEPEZIL 5 MG TAB PO SCH (21:51)
[2019-10-07 23:32] LABS: Basophils # (A) 0.1 k/uL (0-0.2); Basophils % (A) 1 %; Eosinophils # (A) 0.2 k/uL (0-0.7); Eosinophils % (A) 3 %; HCT 24.5 % (34.0-46.0); HGB 8.2 gm/dL (11.4-16.0); Lymphocytes # (A) 3.9 k/uL (1.0-4.8); Lymphocytes % (A) 42 %; MCH 31.5 pg (25.0-35.0); MCHC 33.3 g/dL (31.0-37.0); MCV 94.9 fL (80.0-100.0); Mean Platelet Volume 6.4; Monocytes # (A) 0.4 k/uL (0-1.0); Monocytes % (A) 4 %; Neutrophils # (A) 4.7 k/uL (1.3-7.7); Neutrophils % (A) 49 %; Platelet Count 246 k/uL (150-450); RBC 2.59 m/uL (3.80-5.40); RDW 13.2 % (11.5-15.5); WBC 9.4 k/uL (3.8-10.6)
[2019-10-08 05:12] LABS: Basophils % (A) 0 %; Eosinophils % (A) 0 %; HCT 22.9 % (34.0-46.0); HGB 7.7 gm/dL (11.4-16.0); Lymphocytes % (A) 19 %; MCH 31.9 pg (25.0-35.0); MCHC 33.7 g/dL (31.0-37.0); MCV 94.7 fL (80.0-100.0); Mean Platelet Volume 6.3; Monocytes # (A) 0.3 k/uL (0-1.0); Monocytes % (A) 3 %; Neutrophils # (A) 8.4 k/uL (1.3-7.7); Neutrophils % (A) 77 %; Platelet Count 212 k/uL (150-450); RBC 2.42 m/uL (3.80-5.40); RDW 13.3 % (11.5-15.5); WBC 10.9 k/uL (3.8-10.6)
[2019-10-08] MEDS: SODIUM CHLORIDE 0.9% 1,000 ML IV SCH ×2 (05:40→21:15)
[2019-10-08 06:12] LABS: Calcium 8.3 mg/dL (8.4-10.2); Magnesium 1.9 mg/dL (1.6-2.3); Potassium 3.9 mmol/L (3.5-5.1)
[2019-10-08 06:52] LABS: Glucose,Whole Blood 188 mg/dL (75-99)
[2019-10-08] MEDS: hydrALAZINE HCL 25 MG TAB PO SCH ×3 (07:14→17:52)
[2019-10-08] MEDS: INSULIN ASPART (NovoLOG) 100 UNIT/ML VIAL SQ SCH ×4 (07:14→21:12)
--- NOTE | 2019-10-08 08:25 | PN ---
PROGRESS NOTE PULMONARY/CRITICAL CARE PROGRESS NOTE: DATE OF SERVICE: 10/08/2019 This is an 89-year-old female who I came back to the hospital to see yesterday. She sees Dr. Sales as a primary and also sees Dr. Otto as a parish visitor. The patient does have significant CAD and also aortic stenosis. She came into the emergency room complaining of 2 days worth of bright red bleeding per rectum. She also had maroon stools per rectum. She apparently had 4 additional bloody bowel movements through the night. Yesterday, her hemoglobin was 11.7. This morning it is quite a bit lower. Part of the process is hemodilution as she was dehydrated and prerenal. The patient does complain of some mild back discomfort and some mild abdominal discomfort. A consult was placed for GI. Hemodynamically, she remained stable. Her respiratory status has been stable as well. She has no major complaints other than for some mild abdominal discomfort and back pain. PHYSICAL EXAMINATION: VITAL SIGNS: Current vital signs are reviewed. Temperature 98.5, heart rate 76, respiratory rate 16, blood pressure 132/46 mean 74, 2 L saturation 98%. Appears in no acute distress HEENT examination is grossly unremarkable. Mucous membranes are moist. No oral lesions. NECK: Supple. Full range of motion. No adenopathy, thyromegaly or neck vein distention. CARDIOVASCULAR examination reveals regular rhythm rate. Heart rate 76. S1, S2 normal. There is a harsh systolic murmur consistent with aortic stenosis. LUNGS: Reveal clear breath sounds. No wheezes, rhonchi, or crackles. ABDOMEN: Soft. Mild tenderness on palpation. EXTREMITIES are intact. No cyanosis, clubbing, or edema. SKIN: Without rash. NEUROLOGIC: Examination is nonfocal. LABS: Today show hemoglobin 7.7. Her hemoglobin yesterday was 11.7. In addition, her white count is 10.9, hematocrit 22.9, platelet count was normal. Sodium 139, potassium 3.9, chloride 112 CO2 of 22. BUN and creatinine were 38 and 1.03. MEDICATIONS: Reviewed. The patient is on Lipitor, Aricept, Lexapro, Apresoline, insulin, Imdur, Tradjenta, metoprolol, morphine, Narcan, Protonix and ozempic. Her aspirin and Plavix was placed on hold by me. ASSESSMENT: 1. Acute gastrointestinal bleed, likely lower, either secondary to angiodysplasia or diverticular disease. 2. Prerenal azotemia and mild dehydration. 3. History of coronary artery disease with previous myocardial infarction in November 2017, status post PCI and stent placement February 2019. 4. History of heart failure. 5. Cerebrovascular accident. 6. Diabetes mellitus. 7. Hyperlipidemia. 8. Hypertension. 9. Chronic kidney disease. 10.Dysphagia. 11.Neuropathy. 12.Small hiatal hernia. 13.Vascular dementia. 14.Macular degeneration. 15.Aortic stenosis. PLAN: The patient will get 1 unit of blood. We will keep her here in the unit. GI has been consulted. Aspirin and Plavix are on hold. Hemodynamically, she is stable. She remains on 2 L. No additional recommendations are made. She had 4 bloody bowel movements through the night. MMODL / IJN: [id number] /
[2019-10-08] MEDS ORDERED: ISOSORBIDE MONONITRATE ER 30 MG TAB.ER.24H PO SCH (09:00)
[2019-10-08] MEDS ORDERED: FUROSEMIDE 40 MG TAB PO SCH (09:00)
[2019-10-08] MEDS ORDERED: PROPOFOL 10 MG/ML 20 ML VIAL IV ONE (09:22)
[2019-10-08] MEDS ORDERED: IV FLUID CONTINUATION 700 ML IV ONE (09:24)
--- NOTE | 2019-10-08 09:36 | P.PCN ---
Date of Procedure: 10/08/19 Procedure(s) Performed: BRIEF HISTORY: Patient is a 89-year-old, pleasant, white female, admitted to the hospital with acute GI bleed. She multiple episodes of maroon-colored stools that started yesterday morning. She had a 37 or 8 episodes and often hemoglobin was 7.1 requiring 1 unit of blood transfusion. She is scheduled for an upper endoscopy to evaluate for possible upper GI source of bleeding.. PROCEDURE PERFORMED: Esophagogastroduodenoscopy. PREOPERATIVE DIAGNOSIS: Acute GI bleed. IV sedation per anesthesia. PROCEDURE: After informed consent was obtained, the patient was brought into the endoscopy unit. IV sedation was administered by Anesthesia under continuous monitoring. Initially the Olympus GIF-140 video endoscope was inserted into the mouth. Esophagus intubated without any difficulty. It was gradually advanced into the stomach and duodenum and carefully examined. The bulb and the second part of the duodenum appeared normal. Bilious fluid noted in the duodenum. The scope at this time was withdrawn to the stomach, adequately insufflated with air, and upon careful examination, mucosa of the antrum, had minimal gastritis. The body, cardia and the fundus appeared normal. No evidence of active bleeding noted. The scope was then withdrawn into the esophagus. The GE junction was located at 39 cm from the incisors. The esophagus appeared normal. There were no erosions or ulcerations seen and the patient tolerated the procedure well. IMPRESSION: 1. Mild antral gastritis. 2. No evidence of active upper GI bleed. RECOMMENDATIONS: The findings of this examination were discussed with the patient as well as a family. At this time and continue to monitor his CBC every 6 hours and transfuse as needed. Clear liquid diet today. Possible colonoscopy tomorrow.
[2019-10-08] MEDS: METOPROLOL TARTRATE 25 MG TAB PO SCH ×2 (10:49→21:15)
[2019-10-08] MEDS: LINAGLIPTIN 5 MG TABLET PO SCH (10:49)
[2019-10-08] MEDS: ESCITALOPRAM 10 MG TAB PO SCH (10:49)
[2019-10-08] MEDS: PANTOPRAZOLE 40 MG/10 ML VIAL IV SCH (10:49)
[2019-10-08] MEDS: ATORVASTATIN 40 MG TAB PO SCH (10:49)
[2019-10-08 11:52] LABS: Glucose,Whole Blood 163 mg/dL (75-99)
[2019-10-08 12:47] LABS: Basophils % (A) 0 %; Eosinophils # (A) 0.1 k/uL (0-0.7); Eosinophils % (A) 0 %; HCT 25.7 % (34.0-46.0); HGB 8.3 gm/dL (11.4-16.0); Hypochromasia Slight; Lymphocytes # (A) 0.9 k/uL (1.0-4.8); Lymphocytes % (A) 7 %; MCH 31.2 pg (25.0-35.0); MCHC 32.4 g/dL (31.0-37.0); MCV 96.5 fL (80.0-100.0); Mean Platelet Volume 5.7; Monocytes # (A) 0.4 k/uL (0-1.0); Monocytes % (A) 3 %; Neutrophils # (A) 11.2 k/uL (1.3-7.7); Neutrophils % (A) 89 %; Platelet Count 203 k/uL (150-450); RBC 2.66 m/uL (3.80-5.40); RDW 15.7 % (11.5-15.5); WBC 12.6 k/uL (3.8-10.6)
--- NOTE | 2019-10-08 13:22 | CONS ---
CONSULTATION Mrs. Mcclain is an 89-year-old female with a known history of coronary artery disease, history of aortic and mitral valve disease, history of cardiomyopathy who presented to the emergency room with worsening lower GI bleeding. She had dark stools and red blood for the last 2 days, apparently, continuous. The patient does not see well but her daughter noticed that. She had recurrent bleeding while in the ICU. She had some chest discomfort yesterday and feels dyspneic. She denies any dizziness or palpitation. No clear PND. No orthopnea. She has some peripheral edema. She has been followed by Dr. Otto and has underwent stenting of her LAD and subsequently in March of this year, underwent stenting of her left main because she was felt to be a high risk for surgical intervention. She has a known history of moderate mitral regurgitation, aortic stenosis with moderate to severely impaired left ventricular systolic function. She has been maintained on aspirin and Plavix as an outpatient. Her coronary risk factors are remarkable for history of diabetes, hypertension and hyperlipidemia. She is a nonsmoker. MEDICATION: Included aspirin, Lipitor 40 mg daily, Plavix 75 mg daily, Lexapro 10 mg daily, Lasix 40 mg daily, isosorbide mononitrate 30 mg daily, Tradjenta, metoprolol tartrate 25 mg twice a day, ozempic and Apresoline 25 mg 3 times a day. REVIEW OF SYSTEMS: RESPIRATORY SYSTEM: She had dyspnea on exertion. No recent wheezing or cough. GI SYSTEM: She has history of GI bleeding in the past. In the past was thought to be related to hemorrhoids, much worse at this point with abdominal cramping. SYSTEM: No dysuria or hematuria. NERVOUS SYSTEM: No history of stroke. PHYSICAL EXAMINATION: She is an 89-year-old female, alert, oriented, no apparent distress. Blood pressure 132/46 with a heart rate in 70s. HEAD: Normocephalic. EYES: Sclerae anicteric. NECK: Good carotid upstroke, no bruit. LUNGS: Clear to auscultation. HEART: Regular rate and rhythm S1, S2 with systolic ejection murmur 2/6 heard at the base, ejection type. No diastolic murmur. No rub. With a holosystolic murmur at the apex radiating to the axilla. ABDOMEN: Soft, nontender. Positive bowel sounds. No organomegaly. EXTREMITIES: No significant edema noted. LAB DATA: Revealed a hemoglobin on admission of 11.7 yesterday, today 7.7. BUN and creatinine 38 and 1.03. Her BUN and creatinine yesterday was 40 and 1.05. Her EKG revealed a sinus mechanism, rate of 66, first-degree AV block with T-wave inversion in the anterolateral leads that could represent ischemia, was noted in the past. IMPRESSION: 1. Severe gastrointestinal bleeding with severe anemia, etiology unclear, workup in progress. 2. History of coronary artery disease status post stenting of the left main in March of this year. 3. Ischemic cardiomyopathy. 4. Moderate mitral regurgitation and aortic stenosis. 5. Hyperlipidemia. 6. Diabetes. 7. Renal function abnormality, probably worsened by the gastrointestinal bleed. RECOMMENDATION: From the cardiac standpoint, her aspirin and Plavix are on hold. She will require probably transfusion. I will await the input of Dr. Sullivan to decide when we can resume at least aspirin. Depending on her progress, further recommendations will be made. The prognosis, unfortunately, remains guarded. Thank you for this consult. We will follow with you. MMODL / IJN: [id number] /
[2019-10-08] MEDS ORDERED: INFLUENZA VACCINE (6 MOS+) 60 MCG/0.5 ML SYRINGE IM ONE (14:02)
[2019-10-08] MEDS ORDERED: CYANOCOBALAMIN 1,000 MCG/ML 1 ML VIAL IM ONE (14:05)
--- NOTE | 2019-10-08 15:49 | P.PN ---
Subjective Progress Note Date: 10/08/19 89-year-old pleasant female one of my female patients known medical history of systolic congestive heart failure, severe mitral regurgitation moderate aortic stenosis, hypertension, chronic kidney disease stage III, type 2 diabetes, memory loss mostly is examined disease, known coronary artery disease, recurrent depression, hyperlipidemia admitted through the emergency room secondary to severe rectal bleeding, which started 2 days prior to admission. She has significant bleeding yesterday, however did not pay attention to it, however today, the stools are now clotted, patient cannot reach the bathroom without leaking blood in the stool, and the underwear, and trailing blood all over the floor until she could reach the bathroom. She is on aspirin and Plavix for history of an NSTEMI, March 2019. She had similar episode of GI bleed in December 2018 which was medically managed at that time, did not require any colonoscopy at that time. She also has lightheadedness, no syncope, some abdominal cramps, however no abdominal pain no chest pain no dysphagia, no shortness of breath no leg edema. No epigastric pain, patient is not on any NSAIDs prior to admission except for prescribed Plavix and aspirin. In the emergency room, hemoglobin 11.7, patient's admitted for a lower GI bleed most likely diverticular bleed, without any current evidence of diverticulitis, aspirin and Plavix on hold, consult with Dr. Sullivan, and will be admitted to ICU with Dr. Guidry job training supervisor consulted 10/08/2019, still with burgundy stools but not as much, no abdominal pain, patient is feeling better without any nausea no vomiting, patient had undergone EGD this morning, with mild antral gastritis Dr. carolina, patient remains on clear liquid diet, blood sugars are stable, blood pressure stable, still aspirin and Plavix on hold. One unit packed red blood cell given today hemoglobin at 7.7 lost about 4 g of hemoglobin in 24 hours Objective - Vital Signs Vital signs: Vital Signs Temp 98.7 F 10/08/19 12:00 Pulse 72 10/08/19 15:00 Resp 14 10/08/19 15:00 BP 136/33 10/08/19 15:00 Pulse Ox 98 10/08/19 15:00 Intake & Output 10/07/19 10/08/19 10/08/19 18:59 06:59 18:59 Intake Total 1460 1200 2245 Output Total 200 3 Balance 1260 1197 2245 Weight 63.503 kg 75 kg Intake: IV 500 1200 975 Sodium Chloride 0.9% 1, 500 1200 875 000 ml @ 75 mls/hr IV . [id number] [facility] Rx#:[id number] Oral 960 960 Blood Product 310 Rc As-1 Unit 310 [id number] Output: Urine 200 0 Urine/Stool Mix 3 Other: Voiding Method Diaper # Voids 1 1 # Bowel Movements 2 2 1 - Constitutional General appearance: Present: cooperative, no acute distress - EENT Eyes: Present: anicteric sclerae, EOMI, PERRLA, dentition normal, normal appearance ENT: Present: hearing grossly normal, NA/AT, normal oropharynx - Neck Neck: Present: normal ROM. Absent: lymphadenopathy, other, rigidity, stridor, thyromegaly - Respiratory Respiratory: bilateral: CTA, negative: diminished, dullness, rales - Cardiovascular Rhythm: regular Heart sounds: normal: S1, S2 Abnormal Heart Sounds: Absent: systolic murmur, diastolic murmur, rub, S3 Gallop, S4 Gallop, click, other - Gastrointestinal General gastrointestinal: Present: normal bowel sounds, soft - Integumentary Integumentary: Present: decreased turgor, normal - Neurologic Neurologic: Present: CNII-XII intact - Musculoskeletal Musculoskeletal: Present: gait normal - Psychiatric Psychiatric: Present: A&O x's 3, appropriate affect, intact judgment & insight - Labs CBC & Chem 7: 10/08/19 12:22 10/08/19 04:57 Labs: Abnormal Lab Results - Last 24 Hours (Table) 10/07/19 10/07/19 10/07/19 Range/Units 12:00 16:55 19:20 WBC (3.8-10.6) k/uL RBC 2.80 L (3.80-5.40) m/uL Hgb 8.9 L D (11.4-16.0) gm/dL Hct 27.2 L (34.0-46.0) % RDW (11.5-15.5) % Neutrophils # (1.3-7.7) k/uL Lymphocytes # (1.0-4.8) k/uL Chloride (98-107) mmol/L BUN (7-17) mg/dL Glucose (74-99) mg/dL POC Glucose (mg/dL) 130 H (75-99) mg/dL Calcium (8.4-10.2) mg/dL Crossmatch See Detail 10/07/19 10/07/19 10/08/19 Range/Units 21:15 23:21 04:57 WBC 10.9 H (3.8-10.6) k/uL RBC 2.59 L 2.42 L (3.80-5.40) m/uL Hgb 8.2 L 7.7 L (11.4-16.0) gm/dL Hct 24.5 L 22.9 L (34.0-46.0) % RDW (11.5-15.5) % Neutrophils # 8.4 H (1.3-7.7) k/uL Lymphocytes # (1.0-4.8) k/uL Chloride (98-107) mmol/L BUN (7-17) mg/dL Glucose (74-99) mg/dL POC Glucose (mg/dL) 158 H (75-99) mg/dL Calcium (8.4-10.2) mg/dL Crossmatch 10/08/19 10/08/19 10/08/19 Range/Units 04:57 06:50 11:50 WBC (3.8-10.6) k/uL RBC (3.80-5.40) m/uL Hgb (11.4-16.0) gm/dL Hct (34.0-46.0) % RDW (11.5-15.5) % Neutrophils # (1.3-7.7) k/uL Lymphocytes # (1.0-4.8) k/uL Chloride 112 H (98-107) mmol/L BUN 38 H (7-17) mg/dL Glucose 169 H (74-99) mg/dL POC Glucose (mg/dL) 188 H 163 H (75-99) mg/dL Calcium 8.3 L (8.4-10.2) mg/dL Crossmatch 10/08/19 Range/Units 12:22 WBC 12.6 H (3.8-10.6) k/uL RBC 2.66 L (3.80-5.40) m/uL Hgb 8.3 L (11.4-16.0) gm/dL Hct 25.7 L (34.0-46.0) % RDW 15.7 H (11.5-15.5) % Neutrophils # 11.2 H (1.3-7.7) k/uL Lymphocytes # 0.9 L (1.0-4.8) k/uL Chloride (98-107) mmol/L BUN (7-17) mg/dL Glucose (74-99) mg/dL POC Glucose (mg/dL) (75-99) mg/dL Calcium (8.4-10.2) mg/dL Crossmatch Assessment and Plan Plan: 1. Acute severe lower GI bleed, most likely secondary to diverticulosis, patient is currently monitored closely in ICU with serial hemoglobin, patient is okay for blood transfusion if needed, we'll transfuse for hemoglobin under 7. GI is on consult, colonoscopy might be needed to intervene for control of bleeding, however she remains at high risk of colonoscopy complications secondary to advanced age., Clear liquid diet, no current antibiotics needed plans for colonoscopy 10/09/[address] Sullivan, EGD performed October 08 2019 showed mild antral gastritis no evidence of active upper GI bleed, status post 1 unit packed red blood cell 2. Acute blood loss anemia, we will transfuse for hemoglobin under 7 hemoglobin 11.7 iron studies to be done, 1 unit packed red blood cells given 10/08/2019 3. Acute renal insufficiency, CK D stage II , maintained adequate perfusion to vital organs including blood pressure, monitor creatinine, avoid NSAIDs, avoid hypotension 4 hypertension. Continue Norvasc 10 mg daily, Lasix 40 mg twice daily, hydralazine 25 mg 3 times daily, Imdur 30 mg daily, Lopressor 50 mg 3 times daily. Hold with parameters 5 type 2 diabetes. Continue NovoLog scale before meals and at bedtime, continue Tradjenta. Onozempic every Wednesday 2 mg, 7 history of non-ST segment elevation myocardial infarction with stent placement November 2017 holding off aspirin and Plavix Secondary to GI bleed 8 memory loss: Most likely Alzheimer disease, patient remain on galantamine 4 mg twice a day. 9 history of coronary artery disease. 10 recurrent depression: Patient has been on Lexapro 10 mg a day. 11. Severe valvular heart disease with severe MR with moderate aortic stenosis 11 hyperlipidemia: Remain on Lipitor 40 mg daily. GI prophylaxis with IV Protonix DVT prophylaxis with early ambulation and SCDs conjugation to GI bleed
--- NOTE | 2019-10-08 16:18 | CONS ---
CONSULTATION DATE OF SERVICE: October 08, 2019. REQUESTING PHYSICIAN: Dr. Sales. REASON FOR CONSULTATION: Acute GI bleed. HISTORY OF PRESENT ILLNESS: The patient is an 89-year-old pleasant white female came into the emergency room yesterday after having several episodes of dark maroon-colored stools at home. She had at least 4 or 5 episodes at home and then she came into the emergency room and had one in the ER. She was transferred to the intensive care unit and she had approximately 5 episodes since midnight. The stools always have been dark and maroon colored. She complains of some epigastric pain. No nausea, vomiting. She dropped hemoglobin from 11-7 g/dL and currently receiving 1 unit of blood transfusion. She reports having an episode of rectal bleeding early part of this year, but it was thought it was vaginal and no intervention was done. The patient denies any peptic ulcer disease. Last upper endoscopy was in December of 2017 that showed some gastritis and hiatal hernia. Her last colonoscopy was about 10 years ago. She has history of coronary artery disease, on aspirin and Plavix which has been on hold since yesterday. The last stent placement was 3 months ago. PAST MEDICAL HISTORY: Significant for hypertension, hypercholesteremia, coronary artery disease, status post HI in the past, diabetes mellitus and hyperlipidemia, chronic kidney disease also. PAST SURGICAL HISTORY: Back surgery, appendectomy, cholecystectomy, cardiac cath with stent placement, low back surgery, colonoscopy 10 years ago, upper endoscopy in December of 2017. FAMILY HISTORY: Father at 91 of old age. Mother had lupus. Brother has coronary artery disease. MEDICATIONS: At home include: Lipitor, aspirin, Plavix, Lexapro, Zofran, Tradjenta, Ozempic, vitamin D 2, Lasix, Lopressor, . ALLERGIES: ALLERGIES TO AMARYL, ALEVE AND NORCO. SOCIAL HISTORY: No smoking. No alcohol use. FAMILY HISTORY: Unremarkable. REVIEW OF SYSTEMS: Cardiopulmonary: She denies any chest pain, shortness of breath. Genitourinary: No dysuria or hematuria. MUSCULOSKELETAL unremarkable. SKIN unremarkable. ENDOCRINE unremarkable. PSYCHIATRIC unremarkable. NEUROLOGY unremarkable. ENT/vision unremarkable. CONSTITUTIONAL: No recent weight loss. No fever, chills, night sweats. PHYSICAL EXAMINATION: Blood pressure is 130/53, pulse is 79, temperature 98.2. HEENT examination unremarkable. Conjunctivae pink. Sclerae anicteric. Oral cavity no lesions. NECK: No JVD or lymph node enlargement. CHEST: Clear to auscultation. CARDIOVASCULAR: Heart regular rate and rhythm. ABDOMEN: Soft. There was mild tenderness in the epigastric area and in the periumbilical area. EXTREMITIES: No pedal edema. SKIN: No rashes. NEUROLOGIC: Alert and oriented x3. No focal deficits. LABS: Done from today, WBC 10.9, hemoglobin 7.7, platelets are normal. BUN 38, creatinine 1.23. At the time of admission to the hospital, hemoglobin was 8.2, but a week ago it was 11 g/dL. Stool Hemoccult was positive. BUN 40, creatinine 1.05. IMPRESSION: 1. Acute gastrointestinal bleed that started yesterday morning. She presented with multiple episodes of patient has been having maroon-colored dark and maroon colored stool since yesterday morning. She dropped hemoglobin to 7.1 g/dL and currently in the intensive care unit being monitored closely. Most likely we are dealing with an upper GI source of bleeding but possibility of a colonic source cannot be excluded. 2. History of congestive heart failure. 3. Coronary artery disease status post stent placement, presently on aspirin and Plavix, currently on hold. 4. History of diabetes mellitus and hypertension. RECOMMENDATIONS: 1. Agree with 1 unit of PRBC transfusion. 2. Protonix 40 mg twice daily. 3. CBC every 6 hours and transfuse as needed. 4. We will proceed with an upper endoscopy today. I discussed the risks, benefits, and complications with the patient as well as her daughter, who was at the bedside. Thank you for this consultation. MMODL / IJN: [id number] /
[2019-10-08 16:41] LABS: Glucose,Whole Blood 130 mg/dL (75-99)
[2019-10-08] MEDS ORDERED: PEG 3350-NA SULF,BICARB,CL/KCL 4,000 ML BOTTLE PO ONE (17:00)
[2019-10-08 18:55] LABS: Anisocytosis Slight; Basophils # (A) 0.2 k/uL (0-0.2); Basophils % (A) 2 %; Eosinophils # (A) 0.1 k/uL (0-0.7); Eosinophils % (A) 1 %; HCT 23.8 % (34.0-46.0); HGB 7.6 gm/dL (11.4-16.0); Lymphocytes # (A) 1.8 k/uL (1.0-4.8); Lymphocytes % (A) 18 %; MCH 30.1 pg (25.0-35.0); MCHC 32.2 g/dL (31.0-37.0); MCV 93.5 fL (80.0-100.0); Mean Platelet Volume 6.6; Monocytes # (A) 0.5 k/uL (0-1.0); Monocytes % (A) 5 %; Neutrophils # (A) 7.1 k/uL (1.3-7.7); Neutrophils % (A) 73 %; Platelet Count 191 k/uL (150-450); RBC 2.54 m/uL (3.80-5.40); RDW 16.2 % (11.5-15.5); WBC 9.8 k/uL (3.8-10.6)
[2019-10-08 20:46] LABS: Glucose,Whole Blood 128 mg/dL (75-99)
[2019-10-08] MEDS: DONEPEZIL 5 MG TAB PO SCH (21:15)
[2019-10-08 23:48] LABS: Anisocytosis Slight; Basophils % (A) 0 %; Eosinophils # (A) 0.2 k/uL (0-0.7); Eosinophils % (A) 2 %; HCT 22.4 % (34.0-46.0); HGB 7.6 gm/dL (11.4-16.0); Lymphocytes % (A) 21 %; MCH 31.1 pg (25.0-35.0); MCHC 33.8 g/dL (31.0-37.0); MCV 91.8 fL (80.0-100.0); Mean Platelet Volume 5.7; Monocytes # (A) 0.5 k/uL (0-1.0); Monocytes % (A) 5 %; Neutrophils # (A) 6.7 k/uL (1.3-7.7); Neutrophils % (A) 70 %; Platelet Count 173 k/uL (150-450); RBC 2.44 m/uL (3.80-5.40); RDW 16.2 % (11.5-15.5); WBC 9.5 k/uL (3.8-10.6)
[2019-10-09] MEDS ORDERED: SUCRALFATE 1 GM TAB PO STA (01:05)
[2019-10-09] MEDS: SODIUM CHLORIDE 0.9% 1,000 ML IV SCH (05:27)
[2019-10-09 05:55] LABS: Basophils # (A) 0.1 k/uL (0-0.2); Basophils % (A) 1 %; Eosinophils # (A) 0.2 k/uL (0-0.7); Eosinophils % (A) 2 %; Lymphocytes % (A) 26 %; MCH 31.3 pg (25.0-35.0); MCHC 34.4 g/dL (31.0-37.0); MCV 91.1 fL (80.0-100.0); Mean Platelet Volume 6.5; Monocytes # (A) 0.4 k/uL (0-1.0); Monocytes % (A) 5 %; Neutrophils # (A) 4.9 k/uL (1.3-7.7); Neutrophils % (A) 64 %; Platelet Count 179 k/uL (150-450); WBC 7.6 k/uL (3.8-10.6)
[2019-10-09 06:02] LABS: Calcium 7.9 mg/dL (8.4-10.2); Potassium 3.4 mmol/L (3.5-5.1)
[2019-10-09 06:06] LABS: HGB 6.9 gm/dL (11.4-16.0)
[2019-10-09] MEDS ORDERED: Potassium Replacement Protocol 1 EACH MISC MISCELLANE PRN (06:35)
[2019-10-09 06:45] LABS: Glucose,Whole Blood 162 mg/dL (75-99)
[2019-10-09] MEDS: hydrALAZINE HCL 25 MG TAB PO SCH ×3 (06:51→17:52)
[2019-10-09] MEDS: SUCRALFATE 1 GM TAB PO SCH ×3 (06:52→17:51)
[2019-10-09] MEDS: INSULIN ASPART (NovoLOG) 100 UNIT/ML VIAL SQ SCH ×4 (06:52→20:10)
[2019-10-09] MEDS: POTASSIUM CHLORIDE 10 MEQ in WATER FOR INJECTION 1 100ML.BAG IVPB SCH ×4 (06:53→10:35)
--- NOTE | 2019-10-09 08:08 | PN ---
PROGRESS NOTE Mrs. Mcclain is an 89-year-old female with a known history of coronary artery disease, status post stenting of the LAD in the left main, who presented with gross lower GI bleeding. She had severe drop in the hemoglobin and received transfusion. She was evaluated by Dr. Sullivan yesterday and underwent endoscopy and was found to have mild antral gastritis. She had some chest discomfort yesterday, better this morning. She denies any dizziness. She is short of breath and tired. She denies any nausea. She still has some burgundy color stools. She continues to be off her anticoagulation, but she is on Lipitor 40 mg daily, hydralazine 25 mg 3 times a day, isosorbide mononitrate 30 mg daily, Tradjenta, metoprolol tartrate 25 mg twice a day, Carafate. PHYSICAL EXAMINATION: Blood pressure running in the 150s with the heart rate in the 70s. LUNGS: No wheezes. HEART: Regular rate and rhythm. S1, S2. No S3 with a systolic murmur. ABDOMEN: Soft, nontender. EXTREMITIES: No edema. LAB DATA: Lab data revealed a hemoglobin down to 6.9. Her BUN and creatinine 26 and 0.97. Her troponin is 0.428. IMPRESSION: 1. Severe bleeding with severe gastrointestinal bleeding. Source unclear. 2. Elevation of troponin, probably a type 2 event exacerbated by the severe anemia. 3. Status post stenting of the left main. 4. Hypertension. 5. Hyperlipidemia. 6. Diabetes mellitus. RECOMMENDATION: We will continue to hold her dual antiplatelet treatment at this time. Awaiting stabilization of her hemoglobin. The prognosis remains quite guarded at this time. The patient may require lower endoscopy to rule out any active source of bleeding. She will be transfused again today. Depending on her progress, further recommendation will be made. In the meantime, I will increase the dose of her isosorbide mononitrate to attempt to stabilize her chest discomfort. MMODL / IJN: [id number] /
[2019-10-09] MEDS: LINAGLIPTIN 5 MG TABLET PO SCH (08:22)
[2019-10-09] MEDS: ISOSORBIDE MONONITRATE ER 60 MG TAB.ER.24H PO SCH (08:22)
[2019-10-09] MEDS: ATORVASTATIN 40 MG TAB PO SCH (08:22)
[2019-10-09] MEDS: PANTOPRAZOLE 40 MG/10 ML VIAL IV SCH (08:22)
[2019-10-09] MEDS: ESCITALOPRAM 10 MG TAB PO SCH (08:22)
[2019-10-09] MEDS: METOPROLOL TARTRATE 25 MG TAB PO SCH ×2 (08:23→19:43)
--- NOTE | 2019-10-09 10:56 | P.PN ---
Subjective Progress Note Date: 10/09/19 89-year-old here patient admitted for acute GI bleed currently she is in the intensive care unit. She was having maroon color stool and the hemoglobin was as low as 6.9 this morning. She received a unit of packed RBC 4 hemoglobin of 7.1 and then she received another unit of packed RBC and the follow-up hemoglobin is pending for now. She is hemodynamically stable. Upper GIs endoscopy was done and the patient was found to have mild antral gastritis no evidence of any acute bleeding. She is hemodynamically stable on no pressors. She is on IV fluids with normal saline running at the rate of 75 mL an hour. Note that the patient had an total of 7 or 8 episodes of maroon color/black stools. The patient is planned to have a colonoscopy today. While having her bowel prep last night, the patient underwent some chest pain and she has some EKG changes and troponin came up to 0.4 and the patient was seen by cardiology. The patient was told to have a mismatch because of her low hemoglobin and the procedure is still scheduled to be undergone today. She is still nothing by mouth. White cell count is improving gradually is down to 20. Noted the patient is known to have coronary artery disease. During an earlier admission for GI bleed, the patient had similar bouts of chest pain and she underwent cardiac catheterization and she was found to have severe disease involving the left main and the patient had stents in her LAD but the stents were patent. At that point a drug-eluting stent was placed in left main reducing the stenosis from 70% to 0% and this was done with adjunctive use of an impella device. In any rate, the patient was seen by Dr. Chen the patient was thought to have a type II cardiac event with secondary troponin elevation secondary to her underlying anemia. She is going to undergo the procedure today. She is currently off aspirin and off Plavix. Objective - Vital Signs Vital signs: Vital Signs Temp 99.1 F 10/09/19 09:00 Pulse 64 10/09/19 09:00 Resp 12 10/09/19 09:00 BP 107/79 10/09/19 09:00 Pulse Ox 99 10/09/19 09:00 Intake & Output 10/08/19 10/09/19 10/09/19 18:59 06:59 18:59 Intake Total 5350 1860 635 Output Total 2 1200 Balance 5350 1858 -565 Weight 77 kg Intake: IV 1200 900 325 Potassium Chloride 10 meq 100 In Water For Injection 1 100ml.bag @ 100 mls/hr IVPB Q1H [facility] Rx#: [id number] Sodium Chloride 0.9% 1, 1100 900 225 000 ml @ 75 mls/hr IV . [id number] [facility] Rx#:[id number] Oral 3840 960 Blood Product 310 310 Rc As-1 Unit 310 [id number] Rc As-1 Unit 310 [id number] Output: Urine 1200 Urine/Stool Mix 2 Other: Voiding Method Diaper Diaper Bedpan # Voids 1 1 # Bowel Movements 2 1 - Exam The patient appeared well nourished and normally developed. Vital signs as documented. Head exam is unremarkable. No scleral icterus or corneal arcus noted. Neck is without jugular venous distension, thyromegaly, or carotid bruits. Carotid upstrokes are brisk bilaterally. Lungs are clear to auscultation and percussion. Cardiac exam reveals the PMI to be normally sized and situated. Rhythm is regular. First and second heart sounds normal. There is a systolic ejection murmur grade 4/6 typical of an aortic stenosis murmur heard mainly in the left lateral sternal border and apical area., rubs or gallops. Abdominal exam reveals normal bowel sounds, no masses, no organomegaly and no aortic enlargement. Extremities are nonedematous and both femoral and pedal pulses are normal.Examination of the skin revealed no evidence of significant rashes, suspicious appearing nevi or other concerning lesions.. Neurologically the patient is awake and alert and there is no focal neurological deficits. - Labs CBC & Chem 7: 10/09/19 05:20 10/09/19 05:20 Labs: Abnormal Lab Results - Last 24 Hours (Table) 10/07/19 10/08/19 10/08/19 Range/Units 12:00 11:50 12:22 WBC 12.6 H (3.8-10.6) k/uL RBC 2.66 L (3.80-5.40) m/uL Hgb 8.3 L (11.4-16.0) gm/dL Hct 25.7 L (34.0-46.0) % RDW 15.7 H (11.5-15.5) % Neutrophils # 11.2 H (1.3-7.7) k/uL Lymphocytes # 0.9 L (1.0-4.8) k/uL Potassium (3.5-5.1) mmol/L BUN (7-17) mg/dL Glucose (74-99) mg/dL POC Glucose (mg/dL) 163 H (75-99) mg/dL Calcium (8.4-10.2) mg/dL Troponin I (0.000-0.034) ng/mL Crossmatch See Detail 10/08/19 10/08/19 10/08/19 Range/Units 16:39 18:28 20:44 WBC (3.8-10.6) k/uL RBC 2.54 L (3.80-5.40) m/uL Hgb 7.6 L (11.4-16.0) gm/dL Hct 23.8 L (34.0-46.0) % RDW 16.2 H (11.5-15.5) % Neutrophils # (1.3-7.7) k/uL Lymphocytes # (1.0-4.8) k/uL Potassium (3.5-5.1) mmol/L BUN (7-17) mg/dL Glucose (74-99) mg/dL POC Glucose (mg/dL) 130 H 128 H (75-99) mg/dL Calcium (8.4-10.2) mg/dL Troponin I (0.000-0.034) ng/mL Crossmatch 10/08/19 10/08/19 10/09/19 Range/Units 23:38 23:38 05:20 WBC (3.8-10.6) k/uL RBC 2.44 L 2.20 L (3.80-5.40) m/uL Hgb 7.6 L 6.9 L* (11.4-16.0) gm/dL Hct 22.4 L 20.0 L (34.0-46.0) % RDW 16.2 H 16.0 H (11.5-15.5) % Neutrophils # (1.3-7.7) k/uL Lymphocytes # (1.0-4.8) k/uL Potassium (3.5-5.1) mmol/L BUN (7-17) mg/dL Glucose (74-99) mg/dL POC Glucose (mg/dL) (75-99) mg/dL Calcium (8.4-10.2) mg/dL Troponin I 0.065 H* (0.000-0.034) ng/mL Crossmatch 10/09/19 10/09/19 10/09/19 Range/Units 05:20 05:20 06:45 WBC (3.8-10.6) k/uL RBC (3.80-5.40) m/uL Hgb (11.4-16.0) gm/dL Hct (34.0-46.0) % RDW (11.5-15.5) % Neutrophils # (1.3-7.7) k/uL Lymphocytes # (1.0-4.8) k/uL Potassium 3.4 L (3.5-5.1) mmol/L BUN 26 H (7-17) mg/dL Glucose 142 H (74-99) mg/dL POC Glucose (mg/dL) 162 H (75-99) mg/dL Calcium 7.9 L (8.4-10.2) mg/dL Troponin I 0.428 H* (0.000-0.034) ng/mL Crossmatch Assessment and Plan Plan: 1 GI bleed possibly of a lower GI source. The EGD that was done showed mild gastritis without evidence of an acute bleeding. The patient's hemoglobin is currently at 6.9 as the patient is receiving another unit of packed RBC. She is getting prepared for a colonoscopy 2 previous history of GI bleed 3 multivessel coronary artery disease with previous stenting of the LAD and subsequent stenting of the left main that was done in March 2019 with the use of a Impella device. The patient has segmental wall motion abnormalities. The underlying ejection fraction is no other of 35%. 4 CHF with an ejection fraction of 35% 5. 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 She needs to go back on her aspirin and Plavix combination as soon as possible and as such the colonoscopy was satisfied her risk of bleeding again what taken his antiplatelet agent. Noted the patient has a fresh left main stent. She is hemodynamically stable. She was given another unit of packed RBC. Monitor hemoglobin. Colonoscopy today. She is nothing by mouth for now. IV fluids with normal saline at the rate of 75 mL an hour. Monitor hemoglobin. Continue IV Protonix. Cardiac medications are unchanged including metoprolol 25 mg by mouth twice a day. Continue Lexapro. Continue Aricept. We'll follow.g
[2019-10-09 11:49] LABS: Glucose,Whole Blood 143 mg/dL (75-99)
[2019-10-09 12:41] LABS: Basophils % (A) 0 %; Eosinophils # (A) 0.1 k/uL (0-0.7); Eosinophils % (A) 2 %; HCT 24.4 % (34.0-46.0); HGB 8.3 gm/dL (11.4-16.0); Lymphocytes # (A) 1.6 k/uL (1.0-4.8); Lymphocytes % (A) 20 %; MCH 31.3 pg (25.0-35.0); MCHC 33.9 g/dL (31.0-37.0); MCV 92.3 fL (80.0-100.0); Mean Platelet Volume 6.5; Monocytes # (A) 0.5 k/uL (0-1.0); Monocytes % (A) 6 %; Neutrophils # (A) 5.7 k/uL (1.3-7.7); Neutrophils % (A) 71 %; Platelet Count 164 k/uL (150-450); RBC 2.64 m/uL (3.80-5.40); RDW 15.6 % (11.5-15.5); WBC 8.1 k/uL (3.8-10.6)
[2019-10-09 13:06] LABS: Hemoglobin A1C 6.5 % (4.0-6.0)
--- NOTE | 2019-10-09 13:40 | P.PN ---
Subjective Progress Note Date: 10/09/19 89-year-old pleasant female one of my female patients known medical history of systolic congestive heart failure, severe mitral regurgitation moderate aortic stenosis, hypertension, chronic kidney disease stage III, type 2 diabetes, memory loss mostly is examined disease, known coronary artery disease, recurrent depression, hyperlipidemia admitted through the emergency room secondary to severe rectal bleeding, which started 2 days prior to admission. She has significant bleeding yesterday, however did not pay attention to it, however today, the stools are now clotted, patient cannot reach the bathroom without leaking blood in the stool, and the underwear, and trailing blood all over the floor until she could reach the bathroom. She is on aspirin and Plavix for history of an NSTEMI, March 2019. She had similar episode of GI bleed in December 2018 which was medically managed at that time, did not require any colonoscopy at that time. She also has lightheadedness, no syncope, some abdominal cramps, however no abdominal pain no chest pain no dysphagia, no shortness of breath no leg edema. No epigastric pain, patient is not on any NSAIDs prior to admission except for prescribed Plavix and aspirin. In the emergency room, hemoglobin 11.7, patient's admitted for a lower GI bleed most likely diverticular bleed, without any current evidence of diverticulitis, aspirin and Plavix on hold, consult with Dr. 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 carolina, patient remains on clear liquid diet, blood sugars are stable, blood pressure stable, still aspirin and Plavix on hold. One unit packed red blood cell given today hemoglobin at 7.7 lost about 4 g of hemoglobin in 24 hours 10/09:Yesterday, patient underwent EGD with Dr. Sullivan that found a mild antral gastritis. No evidence of active upper GI bleed. Patient is scheduled for colonoscopy this afternoon. Hemoglobin this morning was 6.9 and she has received 1 unit of packed RBCs for a total of transfusion of 2 units. Repeat hemoglobin is 8.3. Troponins have been rising with initial at 0.065, 0.4-8 and 1.0. Patient has developed a chest pain overnight. Cardiology has evaluated the patient. Currently, Plavix and aspirin are on hold. Patient denies having any chest pain, shortness of breath, nausea or vomiting at this time. She has had no further black or maroon stools since Wednesday evening. She has had brown stools. Patient has been afebrile, heart rate 68, blood pressure 140/49 and pulse ox 98% on room air. Review Of Systems: Constitutional: No fever, no chills, no night sweats. No weight change. No weakness, fatigue or lethargy. No daytime sleepiness. EENT: No headache. No blurred vision or double vision, no loss of vision. Denies dizziness. No nasal drainage or congestion. No epistaxis. No sore throat. Lungs: No shortness of breath, cough, no sputum production. No wheezing. Cardiovascular: No chest pain, no lower extremity edema. No palpitations. No paroxysmal nocturnal dyspnea. No orthopnea. No lightheadedness or dizziness. No syncopal episodes. Abdominal: No abdominal pain-resolved. No nausea, vomiting. No diarrhea. No constipation. No bloody or tarry stools. No loss of appetite. Genitourinary: No dysuria, increased frequency, urgency. No urinary retention. Musculoskeletal: No myalgias. No muscle weakness, no gait dysfunction, no frequent falls. No back pain. No neck pain. Integumentary: No wounds, no lesions. No rash or pruritus. No unusual bruising. No change in hair or nails. Neurologic: No aphasia. No facial droop. No change in mentation. No head injury. No headache. No paralysis. No paresthesia. Psychiatric: No depression. No anxiety. No mood swings. Endocrine: No abnormal blood sugars. No weight change. No excessive sweating or thirst. Objective - Vital Signs Vital signs: Vital Signs Temp 98.6 F 10/09/19 10:30 Pulse 64 10/09/19 10:30 Resp 16 10/09/19 10:30 BP 140/49 10/09/19 10:30 Pulse Ox 98 10/09/19 10:30 Intake & Output 10/08/19 10/09/19 10/09/19 18:59 06:59 18:59 Intake Total 5350 1860 710 Output Total 2 1200 Balance 5350 1858 -490 Weight 77 kg Intake: IV 1200 900 400 Potassium Chloride 10 meq 100 In Water For Injection 1 100ml.bag @ 100 mls/hr IVPB Q1H [facility] Rx#: [id number] Sodium Chloride 0.9% 1, 1100 900 300 000 ml @ 75 mls/hr IV . [id number] [facility] Rx#:[id number] Oral 3840 960 Blood Product 310 310 Rc As-1 Unit 310 [id number] Rc As-1 Unit 310 [id number] Output: Urine 1200 Urine/Stool Mix 2 Other: Voiding Method Diaper Diaper Bedpan # Voids 1 0 # Bowel Movements 2 1 - Exam General appearance: Present: cooperative, no acute distress - EENT Eyes: Present: anicteric sclerae, EOMI, PERRLA, dentition normal, normal neida earance ENT: Present: hearing grossly normal, NA/AT, normal oropharynx - Neck Neck: Present: normal ROM. Absent: lymphadenopathy, other, rigidity, stridor, thyromegaly - Respiratory Respiratory: bilateral: CTA, negative: diminished, dullness, rales - Cardiovascular Rhythm: regular Heart sounds: normal: S1, S2 Abnormal Heart Sounds: Absent: systolic murmur, diastolic murmur, rub, S3 Gallop, S4 Gallop, click, other - Gastrointestinal General gastrointestinal: Present: normal bowel sounds, soft - Integumentary Integumentary: Present: decreased turgor, normal - Neurologic Neurologic: Present: CNII-XII intact - Musculoskeletal Musculoskeletal: Present: gait normal - Psychiatric Psychiatric: Present: A&O x's 3, appropriate affect, intact judgment & insight - Labs CBC & Chem 7: 10/09/19 11:54 10/09/19 05:20 Labs: Abnormal Lab Results - Last 24 Hours (Table) 10/07/19 10/08/19 10/08/19 Range/Units 12:00 11:50 12:22 WBC 12.6 H (3.8-10.6) k/uL RBC 2.66 L (3.80-5.40) m/uL Hgb 8.3 L (11.4-16.0) gm/dL Hct 25.7 L (34.0-46.0) % RDW 15.7 H (11.5-15.5) % Neutrophils # 11.2 H (1.3-7.7) k/uL Lymphocytes # 0.9 L (1.0-4.8) k/uL Potassium (3.5-5.1) mmol/L BUN (7-17) mg/dL Glucose (74-99) mg/dL POC Glucose (mg/dL) 163 H (75-99) mg/dL Calcium (8.4-10.2) mg/dL Troponin I (0.000-0.034) ng/mL Crossmatch See Detail 10/08/19 10/08/19 10/08/19 Range/Units 16:39 18:28 20:44 WBC (3.8-10.6) k/uL RBC 2.54 L (3.80-5.40) m/uL Hgb 7.6 L (11.4-16.0) gm/dL Hct 23.8 L (34.0-46.0) % RDW 16.2 H (11.5-15.5) % Neutrophils # (1.3-7.7) k/uL Lymphocytes # (1.0-4.8) k/uL Potassium (3.5-5.1) mmol/L BUN (7-17) mg/dL Glucose (74-99) mg/dL POC Glucose (mg/dL) 130 H 128 H (75-99) mg/dL Calcium (8.4-10.2) mg/dL Troponin I (0.000-0.034) ng/mL Crossmatch 10/08/19 10/08/19 10/09/19 Range/Units 23:38 23:38 05:20 WBC (3.8-10.6) k/uL RBC 2.44 L 2.20 L (3.80-5.40) m/uL Hgb 7.6 L 6.9 L* (11.4-16.0) gm/dL Hct 22.4 L 20.0 L (34.0-46.0) % RDW 16.2 H 16.0 H (11.5-15.5) % Neutrophils # (1.3-7.7) k/uL Lymphocytes # (1.0-4.8) k/uL Potassium (3.5-5.1) mmol/L BUN (7-17) mg/dL Glucose (74-99) mg/dL POC Glucose (mg/dL) (75-99) mg/dL Calcium (8.4-10.2) mg/dL Troponin I 0.065 H* (0.000-0.034) ng/mL Crossmatch 10/09/19 10/09/19 10/09/19 Range/Units 05:20 05:20 06:45 WBC (3.8-10.6) k/uL RBC (3.80-5.40) m/uL Hgb (11.4-16.0) gm/dL Hct (34.0-46.0) % RDW (11.5-15.5) % Neutrophils # (1.3-7.7) k/uL Lymphocytes # (1.0-4.8) k/uL Potassium 3.4 L (3.5-5.1) mmol/L BUN 26 H (7-17) mg/dL Glucose 142 H (74-99) mg/dL POC Glucose (mg/dL) 162 H (75-99) mg/dL Calcium 7.9 L (8.4-10.2) mg/dL Troponin I 0.428 H* (0.000-0.034) ng/mL Crossmatch Assessment and Plan Plan: 1. Acute severe lower GI bleed, most likely secondary to diverticulosis. Patient is status post EGD finding gastritis, colonoscopy scheduled for this afternoon. 2. Acute blood loss anemia, status post transfusion of a total of 2 units of packed RBCs. 3. Chronic kidney disease stage II. Avoid NSAIDs and hypotension 4. Hypertension. Continue hydralazine 25 mg 3 times daily, Imdur 60 mg daily, Lopressor 25 mg 2 times daily. Hold with parameters. 5. Diabetes mellitus type 2. Continue NovoLog scale before meals and at bedtime, continue Tradjenta. Onozempic every Wednesday 2 mg, 6. History of non-ST segment elevation myocardial infarction with stent LAD on 03/29/2019. Plavix and aspirin are on hold due to GI bleed. 7. Memory loss most likely Alzheimer disease. Continue galantamine 4 mg twice a day. 8. History of coronary artery disease. 9. Recurrent depression: Patient has been on Lexapro 10 mg a day. 10. Severe valvular heart disease with severe MR with moderate aortic stenosis 11. Hyperlipidemia. Continue Lipitor. GI prophylaxis with IV Protonix DVT prophylaxis with early ambulation and SCDs conjugation to GI bleed Discharge plan: To be determined Impression and plan of care have been directed as dictated by the signing physician. Donita Padron nurse practitioner acting as scribe for signing physician.
[2019-10-09] MEDS ORDERED: PROPOFOL 10 MG/ML 20 ML VIAL IV ONE (15:37)
[2019-10-09] MEDS ORDERED: IV FLUID CONTINUATION 1,000 ML IV ONE (16:00)
[2019-10-09 16:32] LABS: Glucose,Whole Blood 131 mg/dL (75-99)
--- NOTE | 2019-10-09 16:53 | P.PCN ---
Date of Procedure: 10/09/19 Description of Procedure: BRIEF HISTORY: Patient is a 89-year-old, pleasant, white female, admitted to the hospital with acute GI bleed. She multiple episodes of maroon-colored stools that started 2 days ago. The patient reports continued episodes total. She was found to have a hemoglobin of 7.1 status post transfusion. Upper endoscopy was significant for mild gastritis. She is scheduled for colonoscopy for further evaluation. PROCEDURE PERFORMED: Colonoscopy. PREOPERATIVE DIAGNOSIS: Anemia acute blood loss, GI bleed. ESTIMATED BLOOD LOSS: Minimal. IV sedation per Anesthesia. PROCEDURE: After informed consent was obtained, the patient, was brought into the endoscopy unit. IV sedation was administered by Anesthesia under continuous monitoring. Digital rectal examination was normal. Initially the Olympus CF-190 flexible video colonoscope was then inserted in the rectum, gradually advanced into the cecum without any difficulty. Careful examination was performed as the scope was gradually being withdrawn. Ileocecal valve and the appendiceal orifice were vi sualized and appeared normal. Prep was fair. Mucosa of the cecum, ascending colon, transverse colon, descending colon, sigmoid colon, and rectum which were visualized appeared normal. There was pandiverticulosis with numerous small and large mouth diverticula throughout the colon.. Retroflexion was performed in the rectum and no lesions were seen. The patient tolerated the procedure well. IMPRESSION: Normal-appearing colon from rectum to cecum with no active bleeding or old blood seen from visualized mucosa. Fair prep. Pandiverticulosis.. RECOMMENDATIONS: Findings of this examination were discussed with the patient. Okay to resume diet. Continue to monitor hemoglobin and transfuse as needed. No plans for further endoscopic evaluation at this time. If patient has further evidence of GI bleed would recommend tagged RBC scan for further evaluation.
[2019-10-09] MEDS: ASPIRIN 81 MG PO SCH (17:51)
[2019-10-09 20:08] LABS: Glucose,Whole Blood 191 mg/dL (75-99)
[2019-10-09] MEDS: DONEPEZIL 5 MG TAB PO SCH (20:10)
[2019-10-10 05:32] LABS: Basophils % (A) 0 %; Eosinophils # (A) 0.1 k/uL (0-0.7); Eosinophils % (A) 2 %; HCT 22.9 % (34.0-46.0); HGB 7.7 gm/dL (11.4-16.0); Lymphocytes # (A) 1.2 k/uL (1.0-4.8); Lymphocytes % (A) 17 %; MCH 31.6 pg (25.0-35.0); MCHC 33.7 g/dL (31.0-37.0); MCV 93.8 fL (80.0-100.0); Mean Platelet Volume 6.2; Monocytes # (A) 0.5 k/uL (0-1.0); Monocytes % (A) 7 %; Neutrophils % (A) 73 %; Platelet Count 166 k/uL (150-450); RBC 2.45 m/uL (3.80-5.40); RDW 15.4 % (11.5-15.5); WBC 6.9 k/uL (3.8-10.6)
[2019-10-10 05:36] LABS: Calcium 7.7 mg/dL (8.4-10.2); Potassium 4.2 mmol/L (3.5-5.1)
[2019-10-10 06:39] LABS: Glucose,Whole Blood 165 mg/dL (75-99)
[2019-10-10] MEDS: INSULIN ASPART (NovoLOG) 100 UNIT/ML VIAL SQ SCH ×4 (06:57→20:31)
[2019-10-10] MEDS: hydrALAZINE HCL 25 MG TAB PO SCH ×3 (07:05→16:59)
[2019-10-10] MEDS: SUCRALFATE 1 GM TAB PO SCH ×3 (07:05→16:59)
--- NOTE | 2019-10-10 08:10 | PN ---
PROGRESS NOTE Mrs. Mcclain is an 89-year-old female with known history of coronary artery disease, status post stenting of the LAD and subsequently of the left main, history of aortic and mitral valve disease, who presented with symptoms of progressive dyspnea, was found to be severely anemic and had significant GI bleeding. She underwent colonoscopy yesterday, had no active bleeding and has been restarted on aspirin and Plavix. She had no further chest pain. Her breathing is stable. She denies any chest pain. She continues to be tired. She denies any dizziness or palpitation. She continued on aspirin 81 mg daily, Lipitor for 40 mg daily, Plavix 75 mg daily, Aricept 5 mg daily, Lexapro 10 mg daily, hydralazine 25 mg 3 times a day, isosorbide mononitrate 60 mg daily, Tradjenta 5 mg daily, metoprolol tartrate 25 mg twice a day, and Carafate in addition to . PHYSICAL EXAMINATION: Blood pressure 119/70 with a heart rate in the 70s. LUNGS: Clear. HEART: Regular rate and rhythm, S1, S2 with systolic ejection murmur heard at the base, ejection type, no diastolic murmur, no rub. ABDOMEN: Soft, nontender. Positive bowel sounds. EXTREMITIES: No edema. LAB DATA: Revealed BUN and creatinine 24 and 0.99. IMPRESSION: 1. Severe GI bleeding with severe anemia. No active bleeding at this time. 2. Unstable angina with evidence of an elevated troponin related to severe anemia. 3. Status post stenting of the left main and the LAD. 4. Aortic and mitral valve disease. 5. History of hypertension. 6. Diabetes. RECOMMENDATION: From the cardiac standpoint, will continue present therapy. Continue follow her hemoglobin closely, increase her activity gradually. From the cardiac standpoint, if she remains stable in the afternoon, she can be transferred to the telemetry floor. Her prognosis remains guarded. MMODL / IJN: [id number] /
[2019-10-10] MEDS ORDERED: FUROSEMIDE 10 MG/ML 4 ML VIAL IV STA (08:58)
--- NOTE | 2019-10-10 08:59 | P.PN ---
Subjective Progress Note Date: 10/10/19 89-year-old here patient admitted for acute GI bleed currently she is in the intensive care unit. She was having maroon color stool and the hemoglobin was as low as 6.9 this morning. She received a unit of packed RBC 4 hemoglobin of 7.1 and then she received another unit of packed RBC and the follow-up hemoglobin is pending for now. She is hemodynamically stable. Upper GIs endoscopy was done and the patient was found to have mild antral gastritis no evidence of any acute bleeding. She is hemodynamically stable on no pressors. She is on IV fluids with normal saline running at the rate of 75 mL an hour. Note that the patient had an total of 7 or 8 episodes of maroon color/black stools. The patient is planned to have a colonoscopy today. While having her bowel prep last night, the patient underwent some chest pain and she has some EKG changes and troponin came up to 0.4 and the patient was seen by cardiology. The patient was told to have a mismatch because of her low hemoglobin and the procedure is still scheduled to be undergone today. She is still nothing by mouth. White cell count is improving gradually is down to 20. Noted the patient is known to have coronary artery disease. During an earlier admission for GI bleed, the patient had similar bouts of chest pain and she underwent cardiac catheterization and she was found to have severe disease involving the left main and the patient had stents in her LAD but the stents were patent. At that point a drug-eluting stent was placed in left main reducing the stenosis from 70% to 0% and this was done with adjunctive use of an impella device. In any rate, the patient was seen by Dr. Chen the patient was thought to have a type II cardiac event with secondary troponin elevation secondary to her underlying anemia. She is going to undergo the procedure today. She is currently off aspirin and off Plavix. 89-year-old female patient was hospitalized for GI bleed and I'm seeing her today in follow-up in the intensive care unit. The patient is known to have COPD and she has undergone a recent stenting of the left main specifically done in March 2019. Hemoglobin was as low as 6.9 and the patient a chance to the pac ked RBC. The patient underwent a colonoscopy yesterday and she was found to have a normal-appearing colon from rectum to cecum without evidence of any acute bleeding. There was evidence of davalos diverticulosis. The patient is currently receiving IV fluids and at the rate of 75 mL an hour. She feels more swollen the upper and lower extremity. She was given aspirin yesterday. Plavix will be restarted today. She has a congested cough. No fever. No chills. No altered mentation. She is receiving diet and this is regular diet Objective - Vital Signs Vital signs: Vital Signs Temp 98.7 F 10/10/19 04:00 Pulse 87 10/10/19 08:00 Resp 16 10/10/19 08:00 BP 144/63 10/10/19 08:00 Pulse Ox 99 10/10/19 08:00 Intake & Output 10/09/19 10/10/19 10/10/19 18:59 06:59 18:59 Intake Total 1385 825 75 Output Total 1200 Balance 185 825 75 Intake: IV 1075 825 75 Potassium Chloride 10 meq 100 In Water For Injection 1 100ml.bag @ 100 mls/hr IVPB Q1H [facility] Rx#: [id number] Sodium Chloride 0.9% 1, 825 825 75 000 ml @ 75 mls/hr IV . [id number] [facility] Rx#:[id number] Blood Product 310 Rc As-1 Unit 310 [id number] Output: Urine 1200 Other: Voiding Method Bedpan Bedpan Diaper Diaper # Voids 0 1 # Bowel Movements 1 - Exam The patient appeared well nourished and normally developed. Vital signs as documented. Head exam is unremarkable. No scleral icterus or corneal arcus noted. Neck is without jugular venous distension, thyromegaly, or carotid br uits. Carotid upstrokes are brisk bilaterally. Lungs are clear to auscultation and percussion. Cardiac exam reveals the PMI to be normally sized and situated. Rhythm is regular. First and second heart sounds normal. There is a systolic ejection murmur grade 4/6 typical of an aortic stenosis murmur heard mainly in the left lateral sternal border and apical area., rubs or gallops. Abdominal exam reveals normal bowel sounds, no masses, no organomegaly and no aortic enlargement. Extremities are slightly edematous and both femoral and pedal pulses are normal.Examination of the skin revealed no evidence of significant rashes, suspicious appearing nevi or other concerning lesions.. Neurologically the patient is awake and alert and there is no focal neurological deficits. - Labs CBC & Chem 7: 10/10/19 04:30 10/10/19 04:30 Labs: Abnormal Lab Results - Last 24 Hours (Table) 10/07/19 10/08/19 10/09/19 Range/Units 12:00 04:57 11:47 RBC (3.80-5.40) m/uL Hgb (11.4-16.0) gm/dL Hct (34.0-46.0) % RDW (11.5-15.5) % Chloride (98-107) mmol/L Carbon Dioxide (22-30) mmol/L BUN (7-17) mg/dL Glucose (74-99) mg/dL POC Glucose (mg/dL) 143 H (75-99) mg/dL Hemoglobin A1c 6.5 H (4.0-6.0) % Calcium (8.4-10.2) mg/dL Troponin I (0.000-0.034) ng/mL Crossmatch See Detail 10/09/19 10/09/19 10/09/19 Range/Units 11:54 11:54 16:30 RBC 2.64 L (3.80-5.40) m/uL Hgb 8.3 L (11.4-16.0) gm/dL Hct 24.4 L (34.0-46.0) % RDW 15.6 H (11.5-15.5) % Chloride (98-107) mmol/L Carbon Dioxide (22-30) mmol/L BUN (7-17) mg/dL Glucose (74-99) mg/dL POC Glucose (mg/dL) 131 H (75-99) mg/dL Hemoglobin A1c (4.0-6.0) % Calcium (8.4-10.2) mg/dL Troponin I 1.000 H* (0.000-0.034) ng/mL Crossmatch 10/09/19 10/10/19 10/10/19 Range/Units 20:07 04:30 04:30 RBC 2.45 L (3.80-5.40) m/uL Hgb 7.7 L (11.4-16.0) gm/dL Hct 22.9 L (34.0-46.0) % RDW (11.5-15.5) % Chloride 112 H (98-107) mmol/L Carbon Dioxide 21 L (22-30) mmol/L BUN 24 H (7-17) mg/dL Glucose 145 H (74-99) mg/dL POC Glucose (mg/dL) 191 H (75-99) mg/dL Hemoglobin A1c (4.0-6.0) % Calcium 7.7 L (8.4-10.2) mg/dL Troponin I (0.000-0.034) ng/mL Crossmatch 10/10/19 Range/Units 06:38 RBC (3.80-5.40) m/uL Hgb (11.4-16.0) gm/dL Hct (34.0-46.0) % RDW (11.5-15.5) % Chloride (98-107) mmol/L Carbon Dioxide (22-30) mmol/L BUN (7-17) mg/dL Glucose (74-99) mg/dL POC Glucose (mg/dL) 165 H (75-99) mg/dL Hemoglobin A1c (4.0-6.0) % Calcium (8.4-10.2) mg/dL Troponin I (0.000-0.034) ng/mL Crossmatch Assessment and Plan Plan: 1 GI bleed possibly of a lower GI source. The EGD that was done showed mild gastritis without evidence of an acute bleeding. The patient colonoscopy yesterday that showed no evidence of any acute bleeding and the patient had pandiverticulosis. Hemoglobin today is at 7.7. She has not shown any further signs of GI bleed. Aspirin was restarted and Plavix will be also restarted today. The patient is receiving IV fluids in the order of 75 mL an hour that needs to be cut down as the patient has become slightly more edematous and she is developing some signs of fluid overload. Note that she has CHF with an ejection fraction of 35% and she has a moderate degree of aortic stenosis. 2 previous history of GI bleed 3 multivessel coronary artery disease with previous stenting of the LAD and subsequent stenting of the left main that was done in March 2019 with the use of a Impella device. The patient has segmental wall motion abnormalities. The underlying ejection fraction is no other of 35%. 4 CHF with an ejection fraction of 35% 5. 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 Give the patient does of Lasix 40 mg IV push. Obtain a chest x-ray. Restart Plavix. Continue aspirin. White for any further signs of GI bleed. She'll be monitored very closely here in the ICU for another 24 hours. She is on a regular diet for now. We'll continue to follow.
[2019-10-10] MEDS: CLOPIDOGREL 75 MG TAB PO SCH (09:03)
[2019-10-10] MEDS: ASPIRIN 81 MG PO SCH (09:03)
[2019-10-10] MEDS: ISOSORBIDE MONONITRATE ER 60 MG TAB.ER.24H PO SCH (09:03)
[2019-10-10] MEDS: ESCITALOPRAM 10 MG TAB PO SCH (09:03)
[2019-10-10] MEDS: METOPROLOL TARTRATE 25 MG TAB PO SCH ×2 (09:03→20:35)
[2019-10-10] MEDS: LINAGLIPTIN 5 MG TABLET PO SCH (09:04)
[2019-10-10] MEDS: ATORVASTATIN 40 MG TAB PO SCH (09:04)
[2019-10-10] MEDS: PANTOPRAZOLE 40 MG/10 ML VIAL IV SCH (09:04)
--- NOTE | 2019-10-10 09:25 | XR ---
EXAMINATION TYPE: XR chest 1V portable DATE OF EXAM: 10/10/2019 COMPARISON: Prior chest x-ray 05/25/2019 HISTORY: Fluid overload TECHNIQUE: Single frontal view of the chest is obtained. FINDINGS: There is airspace disease that is developed in the right lung, there is blunting the right costophrenic angle, obscured right hemidiaphragm. No pneumothorax evident. Interstitium is increased . Aorta is dense. There are overlying cardiac leads. Bone mineralization is reduced. Electronic devic e superimposed over the left upper chest. The cardiac silhouette size is enlarged, appearance may be accentuated by technique, rotation. The osseous structures are intact, postop change incidentally noted in the cervical spine. IMPRESSION: Correlate for congestive heart failure, possible associated pleural effusion, pneumonia not excluded.
[2019-10-10] MEDS: NITROGLYCERIN SL TABS 0.4 MG TAB SUBLINGUAL PRN ×2 (11:16→17:27)
[2019-10-10] MEDS: SODIUM CHLORIDE 0.9% 1,000 ML IV SCH (11:32)
[2019-10-10 11:42] LABS: Glucose,Whole Blood 190 mg/dL (75-99)
[2019-10-10] MEDS ORDERED: SODIUM FERRIC GLUCONAT-SUCROSE 125 MG in SODIUM CHLORIDE 0.9% 100 ML IVPB ONE (12:00)
--- NOTE | 2019-10-10 13:13 | P.PN ---
Subjective Progress Note Date: 10/10/19 89-year-old pleasant female one of my female patients known medical history of systolic congestive heart failure, severe mitral regurgitation moderate aortic stenosis, hypertension, chronic kidney disease stage III, type 2 diabetes, memory loss mostly is examined disease, known coronary artery disease, recurrent depression, hyperlipidemia admitted through the emergency room secondary to severe rectal bleeding, which started 2 days prior to admission. She has significant bleeding yesterday, however did not pay attention to it, however today, the stools are now clotted, patient cannot reach the bathroom without leaking blood in the stool, and the underwear, and trailing blood all over the floor until she could reach the bathroom. She is on aspirin and Plavix for history of an NSTEMI, March 2019. She had similar episode of GI bleed in December 2018 which was medically managed at that time, did not require any colonoscopy at that time. She also has lightheadedness, no syncope, some abdominal cramps, however no abdominal pain no chest pain no dysphagia, no shortness of breath no leg edema. No epigastric pain, patient is not on any NSAIDs prior to admission except for prescribed Plavix and aspirin. In the emergency room, hemoglobin 11.7, patient's admitted for a lower GI bleed most likely diverticular bleed, without any current evidence of diverticulitis, aspirin and Plavix on hold, consult with Dr. Sullivan, and will be admitted to ICU with Dr. Guidry dry kiln burner consulted 10/08/2019, still with burgundy stools but not as much, no abdominal pain, patient is feeling better without any nausea no vomiting, patient had undergone EGD this morning, with mild antral gastritis Dr. carolina, patient remains on clear liquid diet, blood sugars are stable, blood pressure stable, still aspirin and Plavix on hold. One unit packed red blood cell given today hemoglobin at 7.7 lost about 4 g of hemoglobin in 24 hours 10/09:Yesterday, patient underwent EGD with Dr. Sullivan that found a mild antral gastritis. No evidence of active upper GI bleed. Patient is scheduled for colonoscopy this afternoon. Hemoglobin this morning was 6.9 and she has received 1 unit of packed RBCs for a total of transfusion of 2 units. Repeat hemoglobin is 8.3. Troponins have been rising with initial at 0.065, 0.4-8 and 1.0. Patient has developed a chest pain overnight. Cardiology has evaluated the patient. Currently, Plavix and aspirin are on hold. Patient denies having any chest pain, shortness of breath, nausea or vomiting at this time. She has had no further black or maroon stools since Wednesday evening. She has had brown stools. Patient has been afebrile, heart rate 68, blood pressure 140/49 and pulse ox 98% on room air. 10/10: Patient underwent colonoscopy yesterday afternoon that revealed normal appearing: With pandiverticulosis, no plan for any further endoscopy but if patient continues to have evidence of GI bleed would recommend tagged RBC scan. Repeat hemoglobin 7.7. Patient to resume aspirin at eliqu[facility] but remain in the ICU for 1 more day. Patient has had 2 normal bowel movements. She was given Lasix IV 1 dose will be bladder scanned she has had only one urination approximately 125 mL. Patient is complaining of a dull ache on the left side of her chest to 3/10. Imdur has been increased by cardiology to 60 mg daily. Review Of Systems: Constitutional: No fever, no chills, no night sweats. No weight change. No weakness, fatigue or lethargy. No daytime sleepiness. EENT: No headache. No blurred vision or double vision, no loss of vision. Den ies dizziness. No nasal drainage or congestion. No epistaxis. No sore throat. Lungs: No shortness of breath, cough, no sputum production. No wheezing. Cardiovascular: Reports chest pain, no lower extremity edema. No palpitations. No paroxysmal nocturnal dyspnea. No orthopnea. No lightheadedness or dizziness. No syncopal episodes. Abdominal: No abdominal pain-resolved. No nausea, vomiting. No diarrhea. No constipation. No bloody or tarry stools. No loss of appetite. Genitourinary: No dysuria, increased frequency, urgency. No urinary retention. Musculoskeletal: No myalgias. No muscle weakness, no gait dysfunction, no frequent falls. No back pain. No neck pain. Integumentary: No wounds, no lesions. No rash or pruritus. No unusual bruising. No change in hair or nails. Neurologic: No aphasia. No facial droop. No change in mentation. No head injury. No headache. No paralysis. No paresthesia. Psychiatric: No depression. No anxiety. No mood swings. Endocrine: No abnormal blood sugars. No weight change. No excessive sweating or thirst. Objective - Vital Signs Vital signs: Vital Signs Temp 98.2 F 10/10/19 08:30 Pulse 80 10/10/19 10:00 Resp 17 10/10/19 10:00 BP 169/108 10/10/19 10:00 Pulse Ox 95 10/10/19 10:00 Intake & Output 10/09/19 10/10/19 10/10/19 18:59 06:59 18:59 Intake Total 1385 825 190 Output Total 1200 Balance 185 825 190 Weight 80.3 kg Intake: IV 1075 825 190 Potassium Chloride 10 meq 100 In Water For Injection 1 100ml.bag @ 100 mls/hr IVPB Q1H [facility] Rx#: [id number] Sodium Chloride 0.9% 1, 825 825 190 000 ml @ 20 mls/hr IV . Q24H [facility] Rx#:[id number] Blood Product 310 Rc As-1 Unit 310 [id number] Output: Urine 1200 Other: Voiding Method Bedpan Bedpan Bedpan Diaper Diaper Diaper # Voids 0 1 1 # Bowel Movements 1 1 - Exam General appearance: Present: cooperative, no acute distress - EENT Eyes: Present: anicteric sclerae, EOMI, PERRLA, dentition normal, normal appearance ENT: Present: hearing grossly normal, NA/AT, normal oropharynx - Neck Neck: Present: normal ROM. Absent: lymphadenopathy, other, rigidity, stridor, thyromegaly - Respiratory Respiratory: bilateral: CTA, negative: diminished, dullness, rales - Cardiovascular Rhythm: regular Heart sounds: normal: S1, S2 Abnormal Heart Sounds: Systolic murmur Absent: diastolic murmur, rub, S3 Gallop, S4 Gallop, click, other No chest wall tenderness - Gastrointestinal General gastrointestinal: Present: normal bowel sounds, soft - Integumentary Integumentary: Present: decreased turgor, normal - Neurologic Neurologic: Present: CNII-XII intact - Musculoskeletal Musculoskeletal: Present: gait normal - Psychiatric Psychiatric: Present: A&O x's 3, appropriate affect, intact judgment & insight - Labs CBC & Chem 7: 10/10/19 04:30 11/26/19 04:30 Labs: Abnormal Lab Results - Last 24 Hours (Table) 10/08/19 10/09/19 10/09/19 Range/Units 04:57 11:47 11:54 RBC (3.80-5.40) m/uL Hgb (11.4-16.0) gm/dL Hct (34.0-46.0) % RDW (11.5-15.5) % Chloride (98-107) mmol/L Carbon Dioxide (22-30) mmol/L BUN (7-17) mg/dL Glucose (74-99) mg/dL POC Glucose (mg/dL) 143 H (75-99) mg/dL Hemoglobin A1c 6.5 H (4.0-6.0) % Calcium (8.4-10.2) mg/dL Troponin I 1.000 H* (0.000-0.034) ng/mL 10/09/19 10/09/19 10/09/19 Range/Units 11:54 16:30 20:07 RBC 2.64 L (3.80-5.40) m/uL Hgb 8.3 L (11.4-16.0) gm/dL Hct 24.4 L (34.0-46.0) % RDW 15.6 H (11.5-15.5) % Chloride (98-107) mmol/L Carbon Dioxide (22-30) mmol/L BUN (7-17) mg/dL Glucose (74-99) mg/dL POC Glucose (mg/dL) 131 H 191 H (75-99) mg/dL Hemoglobin A1c (4.0-6.0) % Calcium (8.4-10.2) mg/dL Troponin I (0.000-0.034) ng/mL 10/10/19 10/10/19 10/10/19 Range/Units 04:30 04:30 06:38 RBC 2.45 L (3.80-5.40) m/uL Hgb 7.7 L (11.4-16.0) gm/dL Hct 22.9 L (34.0-46.0) % RDW (11.5-15.5) % Chloride 112 H (98-107) mmol/L Carbon Dioxide 21 L (22-30) mmol/L BUN 24 H (7-17) mg/dL Glucose 145 H (74-99) mg/dL POC Glucose (mg/dL) 165 H (75-99) mg/dL Hemoglobin A1c (4.0-6.0) % Calcium 7.7 L (8.4-10.2) mg/dL Troponin I (0.000-0.034) ng/mL Assessment and Plan Plan: 1. Acute severe lower GI bleed. Patient is status post EGD finding gastritis, colonoscopy finding pandiverticulosis. 2. Acute blood loss anemia, status post transfusion of a total of 2 units of packed RBCs. Ferrlecit 1 dose added. Continue Carafate, Protonix. 3. Chronic kidney disease stage II. Avoid NSAIDs and hypotension 4. Hypertension. Continue hydralazine 25 mg 3 times daily, Imdur was increased to 60 mg daily, Lopressor 25 mg 2 times daily. Hold with parameters. 5. Diabetes mellitus type 2. Continue NovoLog scale before meals and at bedtime, continue Tradjenta. Onozempic every Wednesday 2 mg, 6. History of non-ST segment elevation myocardial infarction with stent LAD on 03/29/2019. Plavix and aspirin resumed. 7. Memory loss most likely Alzheimer disease. Continue galantamine 4 mg twice a day. 8. History of coronary artery disease. 9. Recurrent depression: Patient has been on Lexapro 10 mg a day. 10. Severe valvular heart disease with severe MR with moderate aortic stenosis 11. Hyperlipidemia. Continue Lipitor. GI prophylaxis with IV Protonix DVT prophylaxis with early ambulation and SCDs conjugation to GI bleed Discharge plan: Home. PT and OT added. Impression and plan of care have been directed as dictated by the signing physician. Donita Padron nurse practitioner acting as scribe for signing physician.
[2019-10-10 16:12] LABS: Glucose,Whole Blood 122 mg/dL (75-99)
[2019-10-10 20:31] LABS: Glucose,Whole Blood 130 mg/dL (75-99)
[2019-10-10] MEDS: DONEPEZIL 5 MG TAB PO SCH (20:35)
[2019-10-11 05:45] LABS: HCT 24.2 % (34.0-46.0); HGB 8.1 gm/dL (11.4-16.0); MCH 31.1 pg (25.0-35.0); MCHC 33.4 g/dL (31.0-37.0); Mean Platelet Volume 6.8; Platelet Count 166 k/uL (150-450); RDW 15.2 % (11.5-15.5); WBC 5.9 k/uL (3.8-10.6)
[2019-10-11 05:55] LABS: Calcium 8.2 mg/dL (8.4-10.2); Potassium 3.6 mmol/L (3.5-5.1)
[2019-10-11] MEDS ORDERED: POTASSIUM CHLORIDE ER 20 MEQ TAB.ER PO SCH (06:00)
[2019-10-11 06:28] LABS: Glucose,Whole Blood 153 mg/dL (75-99)
[2019-10-11] MEDS: INSULIN ASPART (NovoLOG) 100 UNIT/ML VIAL SQ SCH ×4 (06:28→19:58)
[2019-10-11] MEDS: SUCRALFATE 1 GM TAB PO SCH ×3 (06:41→17:07)
[2019-10-11] MEDS: hydrALAZINE HCL 25 MG TAB PO SCH (06:41)
[2019-10-11] MEDS ORDERED: hydrALAZINE HCL 25 MG TAB PO ONE (07:15)
--- NOTE | 2019-10-11 07:26 | PN ---
PROGRESS NOTE Mrs. Mcclain is an 89-year-old female, status post stenting of the left main and the LAD, history of aortic and mitral valve disease who presented with GI bleeding and severe anemia, underwent upper and lower endoscopy. She had symptoms of angina pectoris, most likely related to supply demand mismatch with the severe anemia. She had no significant chest pain since yesterday. Her breathing is stable. Her appetite stable. She denies any dizziness or palpitation. She denies any nausea. She continues to be on aspirin once a day, Lipitor 40 mg daily, Plavix 75 mg daily, Aricept 5 mg daily, Lexapro 10 mg daily, hydralazine 25 mg 3 times a day, insulin, isosorbide mononitrate 60 mg daily, metoprolol tartrate 25 mg twice a day. PHYSICAL EXAMINATION: Blood pressure running in the 140s to 160s with the heart rate in the 60s. LUNGS: Clear. HEART: Regular rate and rhythm. S1, S2. No S3 with systolic murmur heard at the base ejection type. No diastolic murmur. No rub. ABDOMEN: Soft, nontender. EXTREMITIES: No significant edema. LAB DATA: Lab data revealed hemoglobin of 8.1, BUN and creatinine 19 and 0.9, potassium 3.6. IMPRESSION: 1. Severe anemia with gastrointestinal bleeding, improving. 2. Evidence of unstable angina with acute coronary syndrome related to the severe anemia. 3. History of coronary artery disease with stenting of the LAD and the left main. 4. Valvular disease. 5. Hypertension. 6. Hyperlipidemia. RECOMMENDATION: From the cardiac standpoint, we will continue present therapy. I will increase the dose of hydralazine to optimize her blood pressure control. The patient is not a candidate for any cardiac intervention at this time in view of her recent bleeding. We will optimize her medical therapy, increase her level of activity gradually and depending on her progress, further recommendation will be made. MMODL / IJN: [id number] /
--- NOTE | 2019-10-11 07:27 | P.PN ---
Subjective Progress Note Date: 10/10/19 Principal diagnosis: Anemia acute blood loss Lying in bed, tolerating diet. No further GI bleeding. Objective - Vital Signs Vital signs: Vital Signs Temp 98.9 F 10/10/19 16:00 Pulse 74 10/10/19 16:00 Resp 29 H 10/10/19 16:00 BP 131/45 10/10/19 16:00 Pulse Ox 95 10/10/19 16:00 Intake & Output 10/09/19 10/10/19 10/10/19 18:59 06:59 18:59 Intake Total 1385 825 310 Output Total 1200 Balance 185 825 310 Weight 80.3 kg Intake: IV 1075 825 310 Potassium Chloride 10 meq 100 In Water For Injection 1 100ml.bag @ 100 mls/hr IVPB Q1H [facility] Rx#: [id number] Sodium Chloride 0.9% 1, 825 825 310 000 ml @ 20 mls/hr IV . Q24H [facility] Rx#:[id number] Blood Product 310 Rc As-1 Unit 310 [id number] Output: Urine 1200 Other: Voiding Method Bedpan Bedpan Bedpan Diaper Diaper Diaper # Voids 0 1 0 # Bowel Movements 1 1 - Exam On physical examination, patient appears comfortable in no apparent distress. HEAD: Normocephalic, atraumatic. EYES: No scleral icterus. No conjunctival injection. MOUTH: No lesions, tongue midline. NECK: Trachea midline, no gross abnormalities. ABDOMEN: Soft, obese. Bowel sounds are positive. No organomegaly. No guarding or rigidity. SKIN: No rashes, no jaundice. NEUROLOGIC: Alert and oriented No focal deficits. - Labs CBC & Chem 7: 10/11/19 04:44 10/11/19 04:44 Labs: Abnormal Lab Results - Last 24 Hours (Table) 10/09/19 10/10/19 10/10/19 Range/Units 20:07 04:30 04:30 RBC 2.45 L (3.80-5.40) m/uL Hgb 7.7 L (11.4-16.0) gm/dL Hct 22.9 L (34.0-46.0) % Chloride 112 H (98-107) mmol/L Carbon Dioxide 21 L (22-30) mmol/L BUN 24 H (7-17) mg/dL Glucose 145 H (74-99) mg/dL POC Glucose (mg/dL) 191 H (75-99) mg/dL Calcium 7.7 L (8.4-10.2) mg/dL 10/10/19 10/10/19 10/10/19 Range/Units 06:38 11:40 16:11 RBC (3.80-5.40) m/uL Hgb (11.4-16.0) gm/dL Hct (34.0-46.0) % Chloride (98-107) mmol/L Carbon Dioxide (22-30) mmol/L BUN (7-17) mg/dL Glucose (74-99) mg/dL POC Glucose (mg/dL) 165 H 190 H 122 H (75-99) mg/dL Calcium (8.4-10.2) mg/dL Assessment and Plan (1) Bright red blood per rectum Narrative/Plan: 89-year-old female with multiple medical comorbidities who presented to the hospital with bleeding per rectum. She underwent evaluation with EGD with findings only of gastritis and colonoscopy with pandiverticulosis. Suspicion is for diverticular bleed. No further bleeding noted. Current Visit: Yes Status: Acute Code(s): K62.5 - HEMORRHAGE OF ANUS AND RECTUM SNOMED Code(s): 28003831 (2) Anemia associated with acute blood loss Current Visit: Yes Status: Acute Code(s): D62 - ACUTE POSTHEMORRHAGIC ANEMIA SNOMED Code(s): 282169379 Plan: Supportive care Okay for diet Continue to monitor stool output Continue to monitor hemoglobin and hematocrit and transfuse as needed Okay to resume anticoagulation therapy as needed Avoid NSAID therapy If further bleeding would recommend tagged red blood cell scan for further evaluation Thank you for allowing us to participate in the care of the patient, okay for discharge if otherwise medically stable
[2019-10-11] MEDS ORDERED: hydrALAZINE HCL 50 MG TAB PO SCH (07:30)
[2019-10-11] MEDS: PANTOPRAZOLE 40 MG/10 ML VIAL IV SCH (08:22)
[2019-10-11] MEDS: ISOSORBIDE MONONITRATE ER 60 MG TAB.ER.24H PO SCH (08:22)
[2019-10-11] MEDS: CLOPIDOGREL 75 MG TAB PO SCH (08:22)
[2019-10-11] MEDS: ATORVASTATIN 40 MG TAB PO SCH (08:23)
[2019-10-11] MEDS: METOPROLOL TARTRATE 25 MG TAB PO SCH ×2 (08:23→20:01)
[2019-10-11] MEDS: ASPIRIN 81 MG PO SCH (08:23)
[2019-10-11] MEDS: LINAGLIPTIN 5 MG TABLET PO SCH (08:24)
[2019-10-11] MEDS: ESCITALOPRAM 10 MG TAB PO SCH (08:24)
--- NOTE | 2019-10-11 10:34 | P.PN ---
Subjective Progress Note Date: 10/11/19 89-year-old here patient admitted for acute GI bleed currently she is in the intensive care unit. She was having maroon color stool and the hemoglobin was as low as 6.9 this morning. She received a unit of packed RBC 4 hemoglobin of 7.1 and then she received another unit of packed RBC and the follow-up hemoglobin is pending for now. She is hemodynamically stable. Upper GIs endoscopy was done and the patient was found to have mild antral gastritis no evidence of any acute bleeding. She is hemodynamically stable on no pressors. She is on IV fluids with normal saline running at the rate of 75 mL an hour. Note that the patient had an total of 7 or 8 episodes of maroon color/black stools. The patient is planned to have a colonoscopy today. While having her bowel prep last night, the patient underwent some chest pain and she has some EKG changes and troponin came up to 0.4 and the patient was seen by cardiology. The patient was told to have a mismatch because of her low hemoglobin and the procedure is still scheduled to be undergone today. She is still nothing by mouth. White cell count is improving gradually is down to 20. Noted the patient is known to have coronary artery disease. During an earlier admission for GI bleed, the patient had similar bouts of chest pain and she underwent cardiac catheterization and she was found to have severe disease involving the left main and the patient had stents in her LAD but the stents were patent. At that point a drug-eluting stent was placed in left main reducing the stenosis from 70% to 0% and this was done with adjunctive use of an impella device. In any rate, the patient was seen by Dr. Chen the patient was thought to have a type II cardiac event with secondary troponin elevation secondary to her underlying anemia. She is going to undergo the procedure today. She is currently off aspirin and off Plavix. 89-year-old female patient was hospitalized for GI bleed and I'm seeing her today in follow-up in the intensive care unit. The patient is known to have COPD and she has undergone a recent stenting of the left main specifically done in March 2019. Hemoglobin was as low as 6.9 and the patient a chance to the pac ked RBC. The patient underwent a colonoscopy yesterday and she was found to have a normal-appearing colon from rectum to cecum without evidence of any acute bleeding. There was evidence of davalos diverticulosis. The patient is currently receiving IV fluids and at the rate of 75 mL an hour. She feels more swollen the upper and lower extremity. She was given aspirin yesterday. Plavix will be restarted today. She has a congested cough. No fever. No chills. No altered mentation. She is receiving diet and this is regular diet On today's evaluation of 10/11/2019 patient for a follow-up. She is hemodynamically stable. She had only few streaks of maroon color stool however this did not result into a drop in hemoglobin. Her current hemoglobin is stable at 8.1. No nausea. No vomiting. No chest pain. No hemodynamic instability. She is currently having a hard consistent diet heart healthy. No nausea. No vomiting. No abdominal pain. She is currently on a combination of aspirin and Plavix. The patient was felt to be having some CHF and fluid overload yesterday. Based on that, I give her a dose of Lasix 40 mg IV push. Her chest x-ray was showing some mild pulmonary vascular congestion. This morning, she is much more comfortable. She does have some limited secondhand lung bases. We'll give another dose of Lasix 20 mg IV push. Objective - Vital Signs Vital signs: Vital Signs Temp 98.2 F 10/11/19 08:00 Pulse 67 10/11/19 09:00 Resp 20 10/11/19 09:00 BP 151/48 10/11/19 09:00 Pulse Ox 96 10/11/19 09:00 Intake & Output 10/10/19 10/11/19 10/11/19 18:59 06:59 18:59 Intake Total 350 240 40 Output Total 300 Balance 350 -60 40 Weight 80.2 kg Intake: IV 350 240 40 Sodium Chloride 0.9% 1, 350 240 40 000 ml @ 20 mls/hr IV . Q24H [facility] Rx#:[id number] Output: Urine 300 Other: Voiding Method Bedpan Bedpan Bedpan Diaper Diaper Diaper # Voids 0 1 # Bowel Movements 1 1 1 - Exam The patient appeared well nourished and normally developed. Vital signs as documented. Head exam is unremarkable. No scleral icterus or corneal arcus noted. Neck is without jugular venous distension, thyromegaly, or carotid bruits. Carotid upstrokes are brisk bilaterally. Lungs are clear to auscultation and percussion. Cardiac exam reveals the PMI to be normally sized and situated. Rhythm is regular. First and second heart sounds normal. There is a systolic ejection murmur grade 4/6 typical of an aortic stenosis murmur heard mainly in the left lateral sternal border and apical area., rubs or gallops. Abdominal exam reveals normal bowel sounds, no masses, no organomegaly and no aortic enlargement. Extremities are slightly edematous and both femoral and pedal pulses are normal.Examination of the skin revealed no evidence of significant rashes, suspicious appearing nevi or other concerning lesions.. Neurologically the patient is awake and alert and there is no focal neurological deficits. - Labs CBC & Chem 7: 10/11/19 04:44 10/11/19 04:44 Labs: Abnormal Lab Results - Last 24 Hours (Table) 10/10/19 10/10/19 10/10/19 Range/Units 11:40 16:11 20:30 RBC (3.80-5.40) m/uL Hgb (11.4-16.0) gm/dL Hct (34.0-46.0) % Chloride (98-107) mmol/L BUN (7-17) mg/dL Glucose (74-99) mg/dL POC Glucose (mg/dL) 190 H 122 H 130 H (75-99) mg/dL Calcium (8.4-10.2) mg/dL 10/11/19 10/11/19 10/11/19 Range/Units 04:44 04:44 06:26 RBC 2.60 L (3.80-5.40) m/uL Hgb 8.1 L (11.4-16.0) gm/dL Hct 24.2 L (34.0-46.0) % Chloride 110 H (98-107) mmol/L BUN 19 H (7-17) mg/dL Glucose 118 H (74-99) mg/dL POC Glucose (mg/dL) 153 H (75-99) mg/dL Calcium 8.2 L (8.4-10.2) mg/dL Assessment and Plan Plan: 1 GI bleed possibly of a lower GI source. The EGD that was done showed mild gastritis without evidence of an acute bleeding. The patient colonoscopy that showed no evidence of any acute bleeding and the patient had pandiverticulosis. Hemoglobin today is at 8.1. She is currently on aspirin and Plavix are regular diet. 2 previous history of GI bleed 3 multivessel coronary artery disease with previous stenting of the LAD and subsequent stenting of the left main that was done in March 2019 with the use of a Impella device. The patient has segmental wall motion abnormalities. The underlying ejection fraction is no other of 35%. 4 CHF with an ejection fraction of 35%, she had a component of pulmonary vessel congestion on yesterday's evaluation and the patient was given Lasix and IV fluids was Done. 5. 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 Hemoglobin stable at 8.1. Continue aspirin and Plavix. Regular diet. An additional dose of Lasix 20 mg IV push. We'll continue to follow.
[2019-10-11] MEDS ORDERED: FUROSEMIDE 10 MG/ML 2 ML VIAL IV ONE (10:49)
[2019-10-11 11:47] LABS: Glucose,Whole Blood 156 mg/dL (75-99)
[2019-10-11] MEDS: hydrALAZINE HCL 50 MG TAB PO SCH ×2 (12:07→17:07)
--- NOTE | 2019-10-11 14:18 | P.PN ---
Subjective Progress Note Date: 10/11/19 89-year-old pleasant female one of my female patients known medical history of systolic congestive heart failure, severe mitral regurgitation moderate aortic stenosis, hypertension, chronic kidney disease stage III, type 2 diabetes, memory loss mostly is examined disease, known coronary artery disease, recurrent depression, hyperlipidemia admitted through the emergency room secondary to severe rectal bleeding, which started 2 days prior to admission. She has significant bleeding yesterday, however did not pay attention to it, however today, the stools are now clotted, patient cannot reach the bathroom without leaking blood in the stool, and the underwear, and trailing blood all over the floor until she could reach the bathroom. She is on aspirin and Plavix for history of an NSTEMI, March 2019. She had similar episode of GI bleed in December 2018 which was medically managed at that time, did not require any colonoscopy at that time. She also has lightheadedness, no syncope, some abdominal cramps, however no abdominal pain no chest pain no dysphagia, no shortness of breath no leg edema. No epigastric pain, patient is not on any NSAIDs prior to admission except for prescribed Plavix and aspirin. In the emergency room, hemoglobin 11.7, patient's admitted for a lower GI bleed most likely diverticular bleed, without any current evidence of diverticulitis, aspirin and Plavix on hold, consult with Dr. Sullivan, and will be admitted to ICU with Dr. Guidry truck jumper consulted 10/08/2019, still with burgundy stools but not as much, no abdominal pain, patient is feeling better without any nausea no vomiting, patient had undergone EGD this morning, with mild antral gastritis Dr. carolina, patient remains on clear liquid diet, blood sugars are stable, blood pressure stable, still aspirin and Plavix on hold. One unit packed red blood cell given today hemoglobin at 7.7 lost about 4 g of hemoglobin in 24 hours 10/09:Yesterday, patient underwent EGD with Dr. Sullivan that found a mild antral gastritis. No evidence of active upper GI bleed. Patient is scheduled for colonoscopy this afternoon. Hemoglobin this morning was 6.9 and she has received 1 unit of packed RBCs for a total of transfusion of 2 units. Repeat hemoglobin is 8.3. Troponins have been rising with initial at 0.065, 0.4-8 and 1.0. Patient has developed a chest pain overnight. Cardiology has evaluated the patient. Currently, Plavix and aspirin are on hold. Patient denies having any chest pain, shortness of breath, nausea or vomiting at this time. She has had no further black or maroon stools since Wednesday evening. She has had brown stools. Patient has been afebrile, heart rate 68, blood pressure 140/49 and pulse ox 98% on room air. 10/10: Patient underwent colonoscopy yesterday afternoon that revealed normal appearing: With pandiverticulosis, no plan for any further endoscopy but if patient continues to have evidence of GI bleed would recommend tagged RBC scan. Repeat hemoglobin 7.7. Patient to resume aspirin at [facility] but remain in the ICU for 1 more day. Patient has had 2 normal bowel movements. She was given Lasix IV 1 dose will be bladder scanned she has had only one urination approximately 125 mL. Patient is complaining of a dull ache on the left side of her chest to 3/10. Imdur has been increased by cardiology to 60 mg daily. 10/11: Patient remains in intensive care unit. She is cleared for transfer out. Dr. Samano has added in 1 dose of IV Lasix [address] Chen increased hydralazine to 50 mg 3 times daily for blood pressure control. Patient has been afebrile, heart rate 73, blood pressure 160/52, pulse ox 96% on 2 L nasal cannula. Repeat lab work reveals hemoglobin 8.1, BUN 19 and creatinine 0.91. Blood sugars have been running between 118 156. On physical therapy and OT have recommended home with homecare and case management has arranged. Anticipate discharge home in the next 24-48 hours. Review Of Systems: Constitutional: No fever, no chills, no night sweats. No weight change. No weakness, fatigue or lethargy. No daytime sleepiness. EENT: No headache. No blurred vision or double vision, no loss of vision. Denies dizziness. No nasal drainage or congestion. No epistaxis. No sore throat. Lungs: No shortness of breath, cough, no sputum production. No wheezing. Cardiovascular: Denies chest pain, no lower extremity edema. No palpitations. No paroxysmal nocturnal dyspnea. No orthopnea. No lightheadedness or dizzi ness. No syncopal episodes. Abdominal: No abdominal pain-resolved. No nausea, vomiting. No diarrhea. No constipation. No bloody or tarry stools. No loss of appetite. Genitourinary: No dysuria, increased frequency, urgency. No urinary retention. Musculoskeletal: No myalgias. No muscle weakness, no gait dysfunction, no frequent falls. No back pain. No neck pain. Integumentary: No wounds, no lesions. No rash or pruritus. No unusual bruising. No change in hair or nails. Neurologic: No aphasia. No facial droop. No change in mentation. No head injury. No headache. No paralysis. No paresthesia. Psychiatric: No depression. No anxiety. No mood swings. Endocrine: No abnormal blood sugars. No weight change. No excessive sweating or thirst. Objective - Vital Signs Vital signs: Vital Signs Temp 98.2 F 10/11/19 08:00 Pulse 79 10/11/19 10:00 Resp 20 10/11/19 10:00 BP 149/57 10/11/19 10:00 Pulse Ox 97 10/11/19 10:00 Intake & Output 10/10/19 10/11/19 10/11/19 18:59 06:59 18:59 Intake Total 350 240 100 Output Total 300 Balance 350 -60 100 Weight 80.2 kg Intake: IV 350 240 100 Sodium Chloride 0.9% 1, 350 240 100 000 ml @ 20 mls/hr IV . Q24H [facility] Rx#:[id number] Output: Urine 300 Other: Voiding Method Bedpan Bedpan Bedpan Diaper Diaper Diaper # Voids 0 1 # Bowel Movements 1 1 1 - Exam General appearance: Present: cooperative, no acute distress, daughter at bedside - EENT Eyes: Present: anicteric sclerae, EOMI, PERRLA, dentition normal, normal appearance ENT: Present: hearing grossly normal, NA/AT, normal oropharynx - Neck Neck: Present: normal ROM. Absent: lymphadenopathy, other, rigidity, stridor, thyromegaly - Respiratory Respiratory: bilateral: CTA, negative: diminished, dullness, rales - Cardiovascular Rhythm: regular Heart sounds: normal: S1, S2 Abnormal Heart Sounds: Systolic murmur Absent: diastolic murmur, rub, S3 Gallop, S4 Gallop, click, other No chest wall tenderness - Gastrointestinal General gastrointestinal: Present: normal bowel sounds, soft - Integumentary Integumentary: Present: decreased turgor, normal - Neurologic Neurologic: Present: CNII-XII intact - Musculoskeletal Musculoskeletal: Present: gait normal - Psychiatric Psychiatric: Present: A&O x's 3, appropriate affect, intact judgment & insight - Labs CBC & Chem 7: 10/11/19 04:44 10/11/19 04:44 Labs: Abnormal Lab Results - Last 24 Hours (Table) 10/10/19 10/10/19 10/11/19 Range/Units 16:11 20:30 04:44 RBC (3.80-5.40) m/uL Hgb (11.4-16.0) gm/dL Hct (34.0-46.0) % Chloride 110 H (98-107) mmol/L BUN 19 H (7-17) mg/dL Glucose 118 H (74-99) mg/dL POC Glucose (mg/dL) 122 H 130 H (75-99) mg/dL Calcium 8.2 L (8.4-10.2) mg/dL 10/11/19 10/11/19 10/11/19 Range/Units 04:44 06:26 11:45 RBC 2.60 L (3.80-5.40) m/uL Hgb 8.1 L (11.4-16.0) gm/dL Hct 24.2 L (34.0-46.0) % Chloride (98-107) mmol/L BUN (7-17) mg/dL Glucose (74-99) mg/dL POC Glucose (mg/dL) 153 H 156 H (75-99) mg/dL Calcium (8.4-10.2) mg/dL Assessment and Plan Plan: 1. Acute severe lower GI bleed. Patient is status post EGD finding gastritis, colonoscopy finding pandiverticulosis. 2. Acute blood loss anemia, status post transfusion of a total of 2 units of packed RBCs. Ferrlecit 1 dose added. Continue Carafate, Protonix. 3. Chronic kidney disease stage II. Avoid NSAIDs and hypotension 4. Hypertension. Continue hydralazine increased to 50 mg 3 times daily, Imdur was increased to 60 mg daily, Lopressor 25 mg 2 times daily. Hold with parameters. 5. Diabetes mellitus type 2. Continue NovoLog scale before meals and at bedtime, continue Tradjenta. Onozempic every Wednesday 2 mg, 6. History of non-ST segment elevation myocardial infarction with stent LAD on 03/29/2019. Plavix and aspirin resumed. 7. Memory loss most likely Alzheimer disease. Continue galantamine 4 mg twice a day. 8. History of coronary artery disease. 9. Recurrent depression: Patient has been on Lexapro 10 mg a day. 10. Severe valvular heart disease with severe MR with moderate aortic stenosis 11. Hyperlipidemia. Continue Lipitor. GI prophylaxis with IV Protonix DVT prophylaxis with early ambulation and SCDs conjugation to GI bleed Discharge plan: Home with home care in the next 24-48 hours Impression and plan of care have been directed as dictated by the signing physician. Donita Padron nurse practitioner acting as scribe for signing physician.
[2019-10-11 16:47] LABS: Glucose,Whole Blood 146 mg/dL (75-99)
[2019-10-11] MEDS: SODIUM CHLORIDE 0.9% 1,000 ML IV SCH (17:05)
[2019-10-11 19:58] LABS: Glucose,Whole Blood 132 mg/dL (75-99)
[2019-10-11 20:52] LABS: Glucose,Whole Blood 145 mg/dL (75-99)
[2019-10-11] MEDS: DONEPEZIL 5 MG TAB PO SCH (21:11)
[2019-10-12 06:25] LABS: HCT 21.4 % (34.0-46.0); MCH 34.5 pg (25.0-35.0); MCHC 37.3 g/dL (31.0-37.0); MCV 92.5 fL (80.0-100.0); Mean Platelet Volume 5.9; Platelet Count 173 k/uL (150-450); RBC 2.31 m/uL (3.80-5.40); RDW 15.6 % (11.5-15.5); WBC 5.7 k/uL (3.8-10.6)
[2019-10-12 06:35] LABS: Calcium 8.4 mg/dL (8.4-10.2); Potassium 3.6 mmol/L (3.5-5.1)
[2019-10-12 06:52] LABS: Glucose,Whole Blood 142 mg/dL (75-99)
[2019-10-12] MEDS ORDERED: POTASSIUM CHLORIDE ER 20 MEQ TAB.ER PO SCH (07:00)
[2019-10-12] MEDS: INSULIN ASPART (NovoLOG) 100 UNIT/ML VIAL SQ SCH (07:02)
[2019-10-12] MEDS: SUCRALFATE 1 GM TAB PO SCH (07:02)
[2019-10-12] MEDS: hydrALAZINE HCL 50 MG TAB PO SCH (07:02)
[2019-10-12] MEDS ORDERED: ACETAMINOPHEN TAB 325 MG TAB PO PRN (08:03)
[2019-10-12] MEDS: ASPIRIN 81 MG PO SCH (08:42)
[2019-10-12] MEDS: ATORVASTATIN 40 MG TAB PO SCH (08:42)
--- NOTE | 2019-10-12 08:42 | XR ---
EXAMINATION TYPE: XR chest 1V portable DATE OF EXAM: 10/12/2019 CLINICAL HISTORY: Cough progress study. TECHNIQUE: Single AP portable upright view of the chest is obtained. COMPARISON: Chest x-ray from 2 days earlier FINDINGS: Anterior fusion plate lower cervical spine redemonstrated. Osseous structures are deminera lized. Surgical changes right shoulder redemonstrated. Persistent mild cardiomegaly with atherosclero tic thoracic aorta. Chronic parenchymal changes with bibasilar opacities. Improved aeration right sup rahilar region noted. IMPRESSION: Improved aeration right upper lung. Mild cardiomegaly an chronic parenchymal changes with patchy bibasilar atelectasis and/or infiltrate and small left pleural effusion all remain present.
[2019-10-12] MEDS: ISOSORBIDE MONONITRATE ER 60 MG TAB.ER.24H PO SCH (08:43)
[2019-10-12] MEDS: ESCITALOPRAM 10 MG TAB PO SCH (08:43)
[2019-10-12] MEDS: CLOPIDOGREL 75 MG TAB PO SCH (08:43)
[2019-10-12] MEDS: METOPROLOL TARTRATE 25 MG TAB PO SCH (08:44)
[2019-10-12] MEDS: PANTOPRAZOLE 40 MG/10 ML VIAL IV SCH (08:44)
[2019-10-12] MEDS: LINAGLIPTIN 5 MG TABLET PO SCH (08:44)
[2019-10-12 08:49] VITALS: TEMP 98.3
[2019-10-12] MEDS ORDERED: BACLOFEN 10 MG TAB PO SCH (10:45)
--- NOTE | 2019-10-12 10:55 | P.PN ---
Subjective Progress Note Date: 10/12/19 89-year-old here patient admitted for acute GI bleed currently she is in the intensive care unit. She was having maroon color stool and the hemoglobin was as low as 6.9 this morning. She received a unit of packed RBC 4 hemoglobin of 7.1 and then she received another unit of packed RBC and the follow-up hemoglobin is pending for now. She is hemodynamically stable. Upper GIs endoscopy was done and the patient was found to have mild antral gastritis no evidence of any acute bleeding. She is hemodynamically stable on no pressors. She is on IV fluids with normal saline running at the rate of 75 mL an hour. Note that the patient had an total of 7 or 8 episodes of maroon color/black stools. The patient is planned to have a colonoscopy today. While having her bowel prep last night, the patient underwent some chest pain and she has some EKG changes and troponin came up to 0.4 and the patient was seen by cardiology. The patient was told to have a mismatch because of her low hemoglobin and the procedure is still scheduled to be undergone today. She is still nothing by mouth. White cell count is improving gradually is down to 20. Noted the patient is known to have coronary artery disease. During an earlier admission for GI bleed, the patient had similar bouts of chest pain and she underwent cardiac catheterization and she was found to have severe disease involving the left main and the patient had stents in her LAD but the stents were patent. At that point a drug-eluting stent was placed in left main reducing the stenosis from 70% to 0% and this was done with adjunctive use of an impella device. In any rate, the patient was seen by Dr. Chen the patient was thought to have a type II cardiac event with secondary troponin elevation secondary to her underlying anemia. She is going to undergo the procedure today. She is currently off aspirin and off Plavix. 89-year-old female patient was hospitalized for GI bleed and I'm seeing her today in follow-up in the intensive care unit. The patient is known to have COPD and she has undergone a recent stenting of the left main specifically done in March 2019. Hemoglobin was as low as 6.9 and the patient a chance to the pac ked RBC. The patient underwent a colonoscopy yesterday and she was found to have a normal-appearing colon from rectum to cecum without evidence of any acute bleeding. There was evidence of davalos diverticulosis. The patient is currently receiving IV fluids and at the rate of 75 mL an hour. She feels more swollen the upper and lower extremity. She was given aspirin yesterday. Plavix will be restarted today. She has a congested cough. No fever. No chills. No altered mentation. She is receiving diet and this is regular diet On today's evaluation of 10/11/2019 patient for a follow-up. She is hemodynamically stable. She had only few streaks of maroon color stool however this did not result into a drop in hemoglobin. Her current hemoglobin is stable at 8.1. No nausea. No vomiting. No chest pain. No hemodynamic instability. She is currently having a hard consistent diet heart healthy. No nausea. No vomiting. No abdominal pain. She is currently on a combination of aspirin and Plavix. The patient was felt to be having some CHF and fluid overload yesterday. Based on that, I give her a dose of Lasix 40 mg IV push. Her chest x-ray was showing some mild pulmonary vascular congestion. This morning, she is much more comfortable. She does have some limited secondhand lung bases. We'll give another dose of Lasix 20 mg IV push. on 10/12/2019 I'm pleased to report that the patient has not shown any signs of GI bleeding. Her hemoglobin is stable at 8.0 and she is not having any shortness of breath. No chest pain. She is on aspirin and Plavix. She is ambulating with the help of a walker. She is complaining of some lower back pain which is a chronic issue. I did give her a dose of Lasix yesterday and she diuresed adequately. On today's evaluation she has limited crackles in the lung bases. Otherwise, she has no cervical respiratory distress. The plan is to discharge this patient home today for the . Objective - Vital Signs Vital signs: Vital Signs Temp 98.3 F 10/12/19 08:00 Pulse 74 10/12/19 08:00 Resp 25 H 10/12/19 08:00 BP 155/52 10/12/19 08:00 Pulse Ox 96 10/12/19 08:00 Intake & Output 10/11/19 10/12/19 10/12/19 18:59 06:59 18:59 Intake Total 550 Output Total 500 Balance 550 -500 Weight 81.1 kg Intake: IV 100 Sodium Chloride 0.9% 1, 100 000 ml @ 20 mls/hr IV . Q24H [facility] [place] Rx#:[id number] Oral 450 Output: Urine 500 Other: Voiding Method Bedpan Bedpan Diaper Diaper # Voids 1 0 # Bowel Movements 1 - Exam The patient appeared well nourished and normally developed. Vital signs as documented. Head exam is unremarkable. No scleral icterus or corneal arcus noted. Neck is without jugular venous distension, thyromegaly, or carotid bruits. Carotid upstrokes are brisk bilaterally. Lungs are clear to auscultation and percussion. Cardiac exam reveals the PMI to be normally sized and situated. Rhythm is regular. First and second heart sounds normal. There is a systolic ejection murmur grade 4/6 typical of an aortic stenosis murmur heard mainly in the left lateral sternal border and apical area., rubs or gallops. Abdominal exam reveals normal bowel sounds, no masses, no organomegaly and no aortic enl argement. Extremities are slightly edematous and both femoral and pedal pulses are normal.Examination of the skin revealed no evidence of significant rashes, suspicious appearing nevi or other concerning lesions.. Neurologically the patient is awake and alert and there is no focal neurological deficits. - Labs CBC & Chem 7: 10/12/19 05:54 10/12/19 05:54 Labs: Abnormal Lab Results - Last 24 Hours (Table) 10/11/19 10/11/19 10/11/19 Range/Units 11:45 16:46 19:56 RBC (3.80-5.40) m/uL Hgb (11.4-16.0) gm/dL Hct (34.0-46.0) % MCHC (31.0-37.0) g/dL RDW (11.5-15.5) % Chloride (98-107) mmol/L Glucose (74-99) mg/dL POC Glucose (mg/dL) 156 H 146 H 132 H (75-99) mg/dL 10/11/19 10/12/19 10/12/19 Range/Units 20:51 05:54 05:54 RBC 2.31 L (3.80-5.40) m/uL Hgb 8.0 L (11.4-16.0) gm/dL Hct 21.4 L (34.0-46.0) % MCHC 37.3 H (31.0-37.0) g/dL RDW 15.6 H (11.5-15.5) % Chloride 110 H (98-107) mmol/L Glucose 121 H (74-99) mg/dL POC Glucose (mg/dL) 145 H (75-99) mg/dL 10/12/19 Range/Units 06:50 RBC (3.80-5.40) m/uL Hgb (11.4-16.0) gm/dL Hct (34.0-46.0) % MCHC (31.0-37.0) g/dL RDW (11.5-15.5) % Chloride (98-107) mmol/L Glucose (74-99) mg/dL POC Glucose (mg/dL) 142 H (75-99) mg/dL Assessment and Plan Plan: 1 GI bleed possibly of a lower GI source. The EGD that was done showed mild gastritis without evidence of an acute bleeding. The patient colonoscopy that showed no evidence of any acute bleeding and the patient had pandiverticulosis. Hemoglobin today is at 8.0 patient does not have any signs of GI bleeding for now. 2 previous history of GI bleed 3 multivessel coronary artery disease with previous stenting of the LAD and subsequent stenting of the left main that was done in March 2019 with the use of a Impella device. The patient has segmental wall motion abnormalities. The underlying ejection fraction is no other of 35%. 4 CHF with an ejection fraction of 35%, she had a component of pulmonary vessel congestion on yesterday's evaluation and the patient was given Lasi she is well diuresis for now 5. Moderate aortic stenosis 6 history of CVA/TIA 7 diabetes mellitus 8 previous bouts of GI bleed 9 chronic stage III kidney disease creatinine is at 0.85 , normal for now. 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 Continue aspirin. Continue Plavix. Watch for any signs of GI bleeding. Hemoglobin is at 8.0.
[2019-10-12 11:05] VITALS: BP 150/66; PULSE 62; RESP 24
--- NOTE | 2019-10-12 11:13 | P.DS ---
Providers Date of admission: 10/07/19 12:54 Attending physician: Yee Sales Consults: 10/07/19 12:54 Consult Physician Stat Consulting Provider: Ty Guidry Consult Reason/Comments: icu patient Do you want consulting provider notified?: Yes 10/09/19 00:56 Consult Physician Routine Consulting Provider: Singh Chne Consult Reason/Comments: chest pain Do you want consulting provider notified?: Yes Primary care physician: [facility] Hospital Course: 89-year-old pleasant female one of my female patients known medical history of systolic congestive heart failure, severe mitral regurgitation moderate aortic stenosis, hypertension, chronic kidney disease stage III, type 2 diabetes, memory loss mostly is examined disease, known coronary artery disease, recurrent depression, hyperlipidemia admitted through the emergency room secondary to severe rectal bleeding, which started 2 days prior to admission. She has significant bleeding yesterday, however did not pay attention to it, however today, the stools are now clotted, patient cannot reach the bathroom without leaking blood in the stool, and the underwear, and trailing blood all over the floor until she could reach the bathroom. She is on aspirin and Plavix for history of an NSTEMI, March 2019. She had similar episode of GI bleed in December 2018 which was medically managed at that time, did not require any colonoscopy at that time. She also has lightheadedness, no syncope, some abdominal cramps, however no abdominal pain no chest pain no dysphagia, no shortness of breath no leg edema. No epigastric pain, patient is not on any NSAIDs prior to admission except for prescribed Plavix and aspirin. In the emergency room, hemoglobin 11.7, patient's admitted for a lower GI bleed most likely diverticular bleed, without any current evidence of diverticulitis, aspirin and Plavix on hold, consult with Dr. Sullivan, and will be admitted to ICU with Dr. Guidry regulatory assistant consulted 10/08/2019, still with burgundy stools but not as much, no abdominal pain, patient is feeling better without any nausea no vomiting, patient had undergone EGD this morning, with mild antral gastritis Dr. carolina, patient remains on clear liquid diet, blood sugars are stable, blood pressure stable, still aspirin and Plavix on hold. One unit packed red blood cell given today hemoglobin at 7.7 lost about 4 g of hemoglobin in 24 hours 10/09:Yesterday, patient underwent EGD with Dr. Sullivan that found a mild antral gastritis. No evidence of active upper GI bleed. Patient is scheduled for colonoscopy this afternoon. Hemoglobin this morning was 6.9 and she has received 1 unit of packed RBCs for a total of transfusion of 2 units. Repeat hemoglobin is 8.3. Troponins have been rising with initial at 0.065, 0.4-8 and 1.0. Patient has developed a chest pain overnight. Cardiology has evaluated the patient. Currently, Plavix and aspirin are on hold. Patient denies having any chest pain, shortness of breath, nausea or vomiting at this time. She has had no further black or maroon stools since Wednesday evening. She has had brown stools. Patient has been afebrile, heart rate 68, blood pressure 140/49 and pulse ox 98% on room air. 10/10: Patient underwent colonoscopy yesterday afternoon that revealed normal appearing: With pandiverticulosis, no plan for any further endoscopy but if patient continues to have evidence of GI bleed would recommend tagged RBC scan. Repeat hemoglobin 7.7. Patient to resume aspirin at [facility] but remain in the ICU for 1 more day. Patient has had 2 normal bowel movements. She was given Lasix IV 1 dose will be bladder scanned she has had only one urination approximately 125 mL. Patient is complaining of a dull ache on the left side of her chest to 10. Imdur has been increased by cardiology to 60 mg daily. 10/11: Patient remains in intensive care unit. She is cleared for transfer out. Dr. Samano has added in 1 dose of IV Lasix [address] Chen increased hydralazine to 50 mg 3 times daily for blood pressure control. Patient has been afebrile, heart rate 73, blood pressure 160/52, pulse ox 96% on 2 L nasal cannula. Repeat lab work reveals hemoglobin 8.1, BUN 19 and creatinine 0.91. Blood sugars have been running between 118 156. On physical therapy and OT have recommended home with homecare and case management has arranged. Anticipate discharge home in the next 24-48 hours. 10/12: Patient remains in intensive care unit as a cardiac stepdown. Patient complains of lower back pain. Patient states that it started last night. Patient denies any difficulty breathing. She has been ambulatory within the room with no complaints of shortness of breath. Patient is anxious to go home. Patient will be given a muscle relaxer and if she is able to tolerate she may be discharged. Discharge diagnosis: 1. Acute severe lower GI bleed. 2. Acute blood loss anemia, status post transfusion of a total of 2 units of packed RBCs. 3. Chronic kidney disease stage II. 4. Hypertension. 5. Diabetes mellitus type 2. 6. History of non-ST segment elevation myocardial infarction with stent LAD on 03/29/2019. 7. Memory loss most likely Alzheimer disease. 8. History of coronary artery disease. 9. Recurrent depression: Patient has been on Lexapro 10 mg a day. 10. Severe valvular heart disease with severe MR with moderate aortic stenosis 11. Hyperlipidemia. Discharge disposition: Home with home care Impression and plan of care have been directed as dictated by the signing physician. Netta Owens nurse practitioner acting as scribe for signing physician. Patient Condition at Discharge: Critical Plan - Discharge Summary Discharge Rx Participant: Yes New Discharge Prescriptions: New Baclofen [Lioresal] 5 mg PO TID #30 tab Clopidogrel [Plavix] 75 mg PO DAILY tab Continue Aspirin [Adult Low Dose Aspirin EC] 81 mg PO DAILY Atorvastatin [Lipitor] 40 mg PO DAILY Galantamine [Razadyne] 4 mg PO AC-BID Escitalopram [Lexapro] 10 mg PO DAILY Ondansetron [Zofran] 4 mg PO Q8HR PRN PRN Reason: Nausea Linagliptin [Tradjenta] 5 mg PO DAILY Ergocalciferol [Vitamin D2 (DRISDOL)] 50,000 unit PO Q14D hydrALAZINE HCL [Apresoline] 25 mg PO TID-W/MEALS Metoprolol Tartrate [Lopressor] 25 mg PO BID Furosemide [Lasix] 40 mg PO DAILY Semaglutide [Ozempic] 0.5 mg SQ FR Isosorbide Mononitrate ER [Imdur] 30 mg PO DAILY #30 tab.er.24h Discontinued Clopidogrel [Plavix] 75 mg PO DAILY #30 tab Discharge Medication List Aspirin [Adult Low Dose Aspirin EC] 81 mg PO DAILY 11/21/17 [History] Atorvastatin [Lipitor] 40 mg PO DAILY 01/02/18 [History] Galantamine [Razadyne] 4 mg PO AC-BID 01/02/18 [History] Escitalopram [Lexapro] 10 mg PO DAILY 12/20/18 [History] Ondansetron [Zofran] 4 mg PO Q8HR PRN 01/13/19 [History] Linagliptin [Tradjenta] 5 mg PO DAILY 03/09/19 [History] Ergocalciferol [Vitamin D2 (DRISDOL)] 50,000 unit PO Q14D 10/07/19 [History] Furosemide [Lasix] 40 mg PO DAILY 10/07/19 [History] Metoprolol Tartrate [Lopressor] 25 mg PO BID 10/07/19 [History] hydrALAZINE HCL [Apresoline] 25 mg PO TID-W/MEALS 10/07/19 [History] Semaglutide [Ozempic] 0.5 mg SQ FR 10/08/19 [History] Baclofen [Lioresal] 5 mg PO TID #30 tab 10/12/19 [Rx] Clopidogrel [Plavix] 75 mg PO DAILY tab 10/12/19 [Rx] Isosorbide Mononitrate ER [Imdur] 30 mg PO DAILY #30 tab.er.24h 10/12/19 [Rx] Follow up Appointment(s)/Referral(s): Yee Sales MD [Primary Care Provider] - 1-2 days [facility] Visiting Nurse, [NON-STAFF] - 1-2 Days Avery Blair MD [STAFF PHYSICIAN] - 1 Week
--- NOTE | 2019-10-12 13:05 | PN ---
PROGRESS NOTE 89-year-old lady with known coronary artery disease, status post multivessel angioplasty including stent within the left main, was admitted to hospital with GI bleed. This morning patient is ready to be discharged home. Denies any chest pain or difficulty in breathing. She underwent GI workup and does not have any active source of bleeding and has resumed aspirin and Plavix. The patient is on aspirin, Plavix Lipitor, Apresoline, Imdur, Lopressor. EXAM: Comfortable at rest. Vital signs are stable. Chest exam reveals good air entry bilaterally. Heart exam reveals first and second heart sounds, ejection systolic murmur in the aortic area. Abdomen is soft. Exam of the extremities did not reveal edema. Peripheral pulses are felt. ASSESSMENT: 1. Coronary artery disease status post multivessel angioplasty. 2. Gastrointestinal bleed. 3. Uncontrolled hypertension. PLAN: Patient is doing well. She will follow up with us in the office over the next 1 week. We will follow her blood pressure at that time and adjust antihypertensives as needed. MMODL / IJN: [id number] /
[2019-10-12] MEDS ORDERED: LORazepam 2 MG/ML INJ IV SCH (21:00)
[2019-10-13] MEDS ORDERED: SEMAGLUTIDE 0.5 MG SQ SCH (09:00)
--- NOTE | 2019-10-19 00:38 | CDI ---
Documentation Clarification Form Date: 10/19/19 From: Malik Perez Phone: If you have a question about this query, please contact Corry Dasilva Channel Sales Director at [phone] between 8am and 5pm. Admit Date: 10/07/19 Discharge Date: 10/12/19 Patient Name: Tracy Mcclain Visit Number: [id number] ATTENTION: The Clinical Documentation Specialists (CDI) and [facility] Coding Staff appreciate your assistance in clarifying documentation. Please respond to the clarification below the line at the bottom and electronically sign. The CDI & [facility] Coding staff will review the response and follow-up if needed. Please note: Queries are made part of the Legal Health Record. If you have any questions, please contact the author of this message via ITS. Dear Audra Iraheta., CHF is documented in 10/11 progress note " CHF with an ejection fraction of 35%, she had a component of pulmonary vessel congestion on yesterday's evaluation and the patient was given Lasix and IV fluids was Done" by Varinder Christensen History/Risk Factors: systolic CHF, aortic stenosis, GI bleed ,Anemia, CKD 3 Echocardiogram Results:ejection fraction of 35%, Chest X Ray: Correlate for congestive heart failure, possible associated pleural effusion, pneumonia not excluded. Treatment: IV Lasix. The patient was felt to be having some CHF and fluid overload yesterday,Note that she has CHF with an ejection fraction of 35% and she has a moderate degree of aortic stenosis. In your professional opinion, can you please clarify the acuity and type of CHF if known? Systolic Heart Failure: Acute Chronic Acute on Chronic Unable to Determine Other, please specify Acute systolic heart failure MTDD
== END 2019-10-12 12:49 | disposition home health service (06) | DRG 377 ==
LOC: EC 10:31 → 2SICU 12:54
PROVIDERS: ADMIT Family Medicine; ATTEND Family Medicine
PROC: 0DJ08ZZ Inspection of Upper Intestinal Tract, Via Natural or Artificial Opening Endoscopic (ICD-10-PCS; principal; 2019-10-08 09:00)
PROC: 0DJD8ZZ Inspection of Lower Intestinal Tract, Via Natural or Artificial Opening Endoscopic (ICD-10-PCS; 2019-10-09)
PROC: 30233N1 Transfusion of Nonautologous Red Blood Cells into Peripheral Vein, Percutaneous Approach (ICD-10-PCS; 2019-10-09)
DX: K29.71 Gastritis, unspecified, with bleeding (principal); I50.21 Acute systolic (congestive) heart failure; D62 Acute posthemorrhagic anemia; I13.0 Hypertensive heart and chronic kidney disease with heart failure and stage 1 through stage 4 chronic kidney disease, or unspecified chronic kidney disease; F33.9 Major depressive disorder, recurrent, unspecified; I50.22 Chronic systolic (congestive) heart failure; I25.110 Atherosclerotic heart disease of native coronary artery with unstable angina pectoris; I24.9 Acute ischemic heart disease, unspecified; E11.22 Type 2 diabetes mellitus with diabetic chronic kidney disease; E78.5 Hyperlipidemia, unspecified; N18.3 Chronic kidney disease, stage 3 (moderate); G30.9 Alzheimer's disease, unspecified; I25.5 Ischemic cardiomyopathy; K57.31 Diverticulosis of large intestine without perforation or abscess with bleeding; H35.30 Unspecified macular degeneration; E86.0 Dehydration; F02.80 Dementia in other diseases classified elsewhere, unspecified severity, without behavioral disturbance, psychotic disturbance, mood disturbance, and anxiety; I08.0 Rheumatic disorders of both mitral and aortic valves; G62.9 Polyneuropathy, unspecified; E11.42 Type 2 diabetes mellitus with diabetic polyneuropathy; J44.9 Chronic obstructive pulmonary disease, unspecified; R13.10 Dysphagia, unspecified; F01.50 Vascular dementia, unspecified severity, without behavioral disturbance, psychotic disturbance, mood disturbance, and anxiety; H54.3 Unqualified visual loss, both eyes; E78.00 Pure hypercholesterolemia, unspecified; Z79.82 Long term (current) use of aspirin; Z79.84 Long term (current) use of oral hypoglycemic drugs; Z88.6 Allergy status to analgesic agent; Z88.5 Allergy status to narcotic agent; Z87.440 Personal history of urinary (tract) infections; Z91.81 History of falling; Z79.899 Other long term (current) drug therapy; Z88.8 Allergy status to other drugs, medicaments and biological substances; Z86.73 Personal history of transient ischemic attack (TIA), and cerebral infarction without residual deficits; I25.2 Old myocardial infarction; Z90.49 Acquired absence of other specified parts of digestive tract; Z95.5 Presence of coronary angioplasty implant and graft; Z98.890 Other specified postprocedural states; Z82.49 Family history of ischemic heart disease and other diseases of the circulatory system; Z83.2 Family history of diseases of the blood and blood-forming organs and certain disorders involving the immune mechanism; Z83.3 Family history of diabetes mellitus; Z83.518 Family history of other specified eye disorder; Z84.1 Family history of disorders of kidney and ureter; Z87.891 Personal history of nicotine dependence; Z79.02 Long term (current) use of antithrombotics/antiplatelets
CPT/HCPCS: 36415; 43235; 45378; 71045; 80048; 80053; 82272; 83036; 83735; 84100; 84484; 85025; 85027; 85610; 85730; 86850; 86900; 86901; 86920; 90686; 93005; 96374; 99285

== ENCOUNTER 2019-10-21 07:08 | Emergency (ER) | payer MEDICARE, BC ==
[2019-10-21] MEDS ORDERED: SODIUM CHLORIDE 0.9% 1,000 ML IV ONE (07:17)
[2019-10-21] MEDS ORDERED: NALOXONE 0.4 MG/ML 1 ML VIAL IV STA (07:20)
[2019-10-21 07:21] VITALS: TEMP 98
--- NOTE | 2019-10-21 07:30 | ED ---
Altered Mental Status HPI - General Chief Complaint: Altered Mental Status Stated Complaint: Unresponsive Time Seen by Provider: 10/21/19 07:08 Source: patient, EMS, RN notes reviewed Limitations: altered mental status - History of Present Illness Initial Comments: This 89-year-old female with a recent history of admission for GI bleed secondary to diverticulitis who also has a history of CHF and coronary artery disease, type 2 diabetes, stage III kidney disease, hypertension, valvular heart disease and depression who apparently went to bed last evening her normal state and this morning with family tried to wake her up she was unresponsive. She was brought in by EMS. He states that she had a blood glucose of 277 bowel signs are stable but she would only moan and responds any type of stimulation. Is no reports of trauma no fevers chills nausea vomiting sweats. Patient had been placed on Celebrex and baclofen is feeling a medications that her last discharge and October 09. No other known modifying factors at this time. MD Complaint: altered mental status, decreased responsiveness - Related Data Home Medications Medication Instructions Recorded Confirmed Aspirin [Adult Low Dose Aspirin EC] 81 mg PO DAILY 11/21/17 10/21/19 Galantamine [Razadyne] 4 mg PO AC-BID 01/02/18 10/21/19 Escitalopram [Lexapro] 10 mg PO DAILY 12/20/18 10/21/19 Ondansetron [Zofran] 4 mg PO Q8HR PRN 01/13/19 10/21/19 Linagliptin [Tradjenta] 5 mg PO DAILY 03/09/19 10/21/19 Ergocalciferol [Vitamin D2 50,000 unit PO Q14D 10/07/19 10/21/19 (DRISDOL)] Furosemide [Lasix] 40 mg PO DAILY 10/07/19 10/21/19 Metoprolol Tartrate [Lopressor] 25 mg PO BID 10/07/19 10/21/19 hydrALAZINE HCL [Apresoline] 25 mg PO TID-W/MEALS 10/07/19 10/21/19 Semaglutide [Ozempic] 0.5 mg SQ FR 10/08/19 10/21/19 Baclofen [Lioresal] 10 mg PO TID 10/21/19 10/21/19 Celecoxib [CeleBREX] 200 mg PO DAILY 10/21/19 10/21/19 Isosorbide Mononitrate ER [Imdur] 60 mg PO DAILY 10/21/19 10/21/19 predniSONE See Taper PO DAILY 10/21/19 10/21/19 Previous Rx's Medication Instructions Recorded Clopidogrel [Plavix] 75 mg PO DAILY tab 10/12/19 Allergies Allergy/AdvReac Type Severity Reaction Status Date / Time hydrocodone [From [place]] Allergy Rash/Hives Verified 10/21/19 09:13 naproxen sodium [From Aleve] Allergy Itching,bessie Verified 10/21/19 09:13 h glimepiride [From Amaryl] AdvReac Nausea & Verified 10/21/19 09:13 Vomiting Review of Systems ROS Statement: Those systems with pertinent positive or pertinent negative responses have been documented in the HPI. ROS Other: All systems not noted in ROS Statement are negative. 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 Last Myocardial Infarction Date:: 11/18/17 History of Any Multi-Drug Resistant Organisms: None Reported Past Surgical History: Appendectomy, Back Surgery, Cholecystectomy, Heart Catheterization With Stent Additional Past Surgical History / Comment(s): Low back surgery, cervical surgery, R wrist carpal tunnel release, colonoscopy (not completed d/t poor prep) about 10 yrs ago, EGD 01/2018 d/t abdominal pain. Past Anesthesia/Blood Transfusion Reactions: No Reported Reaction Additional Past Anesthesia/Blood Transfusion Reaction / Comment(s): Pt has clausterphobia. Date of Last Stent Placement:: 11/18/17 Past Psychological History: Depression Smoking Status: Former smoker Past Alcohol Use History: None Reported Past Drug Use History: None Reported - Past Family History Father Additional Family Medical History / Comment(s): Father at age 91 from old age. Mother Additional Family Medical History / Comment(s): Mother at age 85 with history of lupus. Brother(s) Additional Family Medical History / Comment(s): Patient's siblings have history of coronary artery disease, diabetes, hypertension, macular degeneration. Daughter(s) Additional Family Medical History / Comment(s): Patient has 11 children; 6 da ughters and 5 sons. 3 have and 2 from kidney failure and one was murdered. Sister(s) Additional Family Medical History / Comment(s): Pt had a sister live to be 102 yrs old. General Exam - General Exam Comments Initial Comments: This is a well-developed obese female who is moaning upon examination and does not respond to verbal commands. Limitations: altered mental status General appearance: lethargic Head exam: Present: atraumatic, normocephalic, normal inspection Eye exam: Present: normal appearance, PERRL, EOMI. Absent: scleral icterus, conjunctival injection, periorbital swelling ENT exam: Present: mucous membranes dry Neck exam: Present: normal inspection, full ROM, other (No stridor JVD or bruits). Absent: tenderness, meningismus, lymphadenopathy Respiratory exam: Present: decreased breath sounds. Absent: respiratory distress, wheezes, rales, rhonchi, stridor Cardiovascular Exam: Present: regular rate, normal rhythm, normal heart sounds. Absent: systolic murmur, diastolic murmur, rubs, gallop, clicks GI/Abdominal exam: Present: soft, normal bowel sounds. Absent: distended, tenderness, guarding, rebound, rigid Rectal exam: Present: deferred Extremities exam: Present: normal inspection, full ROM, normal capillary refill. Absent: tenderness, pedal edema, joint swelling, calf tenderness Back exam: Present: normal inspection Neurological exam: Present: alert, altered, CN II-XII intact Psychiatric exam: Present: normal affect, normal mood Skin exam: Present: warm, dry, intact, normal color. Absent: rash Course Vital Signs 10/21/19 10/21/19 10/21/19 07:17 08:00 08:04 Temperature 98.0 F Pulse Rate 83 67 Respiratory 18 16 16 Rate Blood Pressure 233/100 208/73 O2 Sat by Pulse 98 98 Oximetry 10/21/19 10/21/19 10/21/19 09:00 09:30 10:00 Temperature Pulse Rate 72 70 68 Respiratory 16 18 18 Rate Blood Pressure 180/69 173/59 166/60 O2 Sat by Pulse 96 96 96 Oximetry 10/21/19 10/21/19 10:30 11:00 Temperature Pulse Rate 73 71 Respiratory 17 18 Rate Blood Pressure 192/77 172/69 O2 Sat by Pulse 95 96 Oximetry - Reevaluation(s) Reevaluation #1: 10/21/19 08:28 Per patient family the patient had a UA done on 10/19 of this year which was unremarkable this is confirmed by reviewing that test in our computer system. Additionally the patient does have a CT lumbar spine scheduled for outpatient and will also be done this morning. Reevaluation #2: 10/21/19 11:42 I did reevaluate patient on multiple occasions she seems to have an minimal to no improvement from her initial presentation. I did discuss the encounter with the patient's daughter who states that the symptoms actually started last evening. Medical Decision Making - Medical Decision Making The patient due to her presentation were require neurological evaluation patient will be transferred to [facility] I did discuss this with Dr. Avendaño who is agreed to accept the patient in transfer family is aware. - Lab Data Result diagrams: 10/21/19 07:30 10/21/19 07:30 Lab Results 10/21/19 10/21/19 10/21/19 Range/Units 07:30 07:30 07:30 WBC (3.8-10.6) k/uL RBC (3.80-5.40) m/uL Hgb (11.4-16.0) gm/dL Hct (34.0-46.0) % MCV (80.0-100.0) fL MCH (25.0-35.0) pg MCHC (31.0-37.0) g/dL RDW (11.5-15.5) % Plt Count (150-450) k/uL Neutrophils % % Lymphocytes % % Monocytes % % Eosinophils % % Basophils % % Neutrophils # (1.3-7.7) k/uL Lymphocytes # (1.0-4.8) k/uL Monocytes # (0-1.0) k/uL Eosinophils # (0-0.7) k/uL Basophils # (0-0.2) k/uL Hypochromasia Poikilocytosis Anisocytosis PT (9.0-12.0) sec INR (<1.2) APTT (22.0-30.0) sec Sodium 143 (137-145) mmol/L Potassium 3.9 (3.5-5.1) mmol/L Chloride 110 H (98-107) mmol/L Carbon Dioxide 22 (22-30) mmol/L Anion Gap 11 mmol/L BUN 22 H (7-17) mg/dL Creatinine 0.92 (0.52-1.04) mg/dL Est GFR (CKD-EPI)AfAm 65 (>60 ml/min/1.73 sqM) Est GFR (CKD-EPI)NonAf 56 (>60 ml/min/1.73 sqM) Glucose 202 H (74-99) mg/dL Plasma Lactic Acid Maximus 1.6 (0.7-2.0) mmol/L Calcium 8.8 (8.4-10.2) mg/dL Magnesium 1.9 (1.6-2.3) mg/dL Total Bilirubin 0.8 (0.2-1.3) mg/dL AST 17 (14-36) U/L ALT 22 (9-52) U/L Alkaline Phosphatase 105 (38-126) U/L Ammonia 9 (<30) umol/L Creatine Kinase 20 L (30-135) U/L Troponin I (0.000-0.034) ng/mL NT-Pro-B Natriuret Pep 44576 pg/mL Total Protein 5.5 L (6.3-8.2) g/dL Albumin 2.9 L (3.5-5.0) g/dL Urine Color Urine Appearance (Clear) Urine pH (5.0-8.0) Ur Specific [place] (1.001-1.035) Urine Protein (Negative) Urine Glucose (UA) (Negative) Urine Ketones (Negative) Urine Blood (Negative) Urine Nitrite (Negative) Urine Bilirubin (Negative) Urine Urobilinogen (<2.0) mg/dL Ur Leukocyte Esterase (Negative) Urine Opiates Screen (NotDetected) Ur Oxycodone Screen (NotDetected) Urine Methadone Screen (NotDetected) Ur Propoxyphene Screen (NotDetected) Ur Barbiturates Screen (NotDetected) U Tricyclic Antidepress (NotDetected) Ur Phencyclidine Scrn (NotDetected) Ur Amphetamines Screen (NotDetected) U Methamphetamines Scrn (NotDetected) U Benzodiazepines Scrn (NotDetected) Urine Cocaine Screen (NotDetected) U Marijuana (THC) Screen (NotDetected) 10/21/19 10/21/19 10/21/19 Range/Units 07:30 07:30 07:30 WBC 6.5 (3.8-10.6) k/uL RBC 3.39 L (3.80-5.40) m/uL Hgb 10.2 L (11.4-16.0) gm/dL Hct 31.9 L (34.0-46.0) % MCV 94.2 (80.0-100.0) fL MCH 30.2 (25.0-35.0) pg MCHC 32.0 (31.0-37.0) g/dL RDW 16.2 H (11.5-15.5) % Plt Count 425 D (150-450) k/uL Neutrophils % 79 % Lymphocytes % 17 % Monocytes % 3 % Eosinophils % 0 % Basophils % 0 % Neutrophils # 5.1 (1.3-7.7) k/uL Lymphocytes # 1.1 (1.0-4.8) k/uL Monocytes # 0.2 (0-1.0) k/uL Eosinophils # 0.0 (0-0.7) k/uL Basophils # 0.0 (0-0.2) k/uL Hypochromasia Slight Poikilocytosis Slight Anisocytosis Slight PT 10.8 (9.0-12.0) sec INR 1.0 (<1.2) APTT 22.5 (22.0-30.0) sec Sodium (137-145) mmol/L Potassium (3.5-5.1) mmol/L Chloride (98-107) mmol/L Carbon Dioxide (22-30) mmol/L Anion Gap mmol/L BUN (7-17) mg/dL Creatinine (0.52-1.04) mg/dL Est GFR (CKD-EPI)AfAm (>60 ml/min/1.73 sqM) Est GFR (CKD-EPI)NonAf (>60 ml/min/1.73 sqM) Glucose (74-99) mg/dL Plasma Lactic Acid Maximus (0.7-2.0) mmol/L Calcium (8.4-10.2) mg/dL Magnesium (1.6-2.3) mg/dL Total Bilirubin (0.2-1.3) mg/dL AST (14-36) U/L ALT (9-52) U/L Alkaline Phosphatase (38-126) U/L Ammonia (<30) umol/L Creatine Kinase (30-135) U/L Troponin I 0.021 (0.000-0.034) ng/mL NT-Pro-B Natriuret Pep pg/mL Total Protein (6.3-8.2) g/dL Albumin (3.5-5.0) g/dL Urine Color Urine Appearance (Clear) Urine pH (5.0-8.0) Ur Specific [place] (1.001-1.035) Urine Protein (Negative) Urine Glucose (UA) (Negative) Urine Ketones (Negative) Urine Blood (Negative) Urine Nitrite (Negative) Urine Bilirubin (Negative) Urine Urobilinogen (<2.0) mg/dL Ur Leukocyte Esterase (Negative) Urine Opiates Screen (NotDetected) Ur Oxycodone Screen (NotDetected) Urine Methadone Screen (NotDetected) Ur Propoxyphene Screen (NotDetected) Ur Barbiturates Screen (NotDetected) U Tricyclic Antidepress (NotDetected) Ur Phencyclidine Scrn (NotDetected) Ur Amphetamines Screen (NotDetected) U Methamphetamines Scrn (NotDetected) U Benzodiazepines Scrn (NotDetected) Urine Cocaine Screen (NotDetected) U Marijuana (THC) Screen (NotDetected) 10/21/19 Range/Units 10:10 WBC (3.8-10.6) k/uL RBC (3.80-5.40) m/uL Hgb (11.4-16.0) gm/dL Hct (34.0-46.0) % MCV (80.0-100.0) fL MCH (25.0-35.0) pg MCHC (31.0-37.0) g/dL RDW (11.5-15.5) % Plt Count (150-450) k/uL Neutrophils % % Lymphocytes % % Monocytes % % Eosinophils % % Basophils % % Neutrophils # (1.3-7.7) k/uL Lymphocytes # (1.0-4.8) k/uL Monocytes # (0-1.0) k/uL Eosinophils # (0-0.7) k/uL Basophils # (0-0.2) k/uL Hypochromasia Poikilocytosis Anisocytosis PT (9.0-12.0) sec INR (<1.2) APTT (22.0-30.0) sec Sodium (137-145) mmol/L Potassium (3.5-5.1) mmol/L Chloride (98-107) mmol/L Carbon Dioxide (22-30) mmol/L Anion Gap mmol/L BUN (7-17) mg/dL Creatinine (0.52-1.04) mg/dL Est GFR (CKD-EPI)AfAm (>60 ml/min/1.73 sqM) Est GFR (CKD-EPI)NonAf (>60 ml/min/1.73 sqM) Glucose (74-99) mg/dL Plasma Lactic Acid Maximus (0.7-2.0) mmol/L Calcium (8.4-10.2) mg/dL Magnesium (1.6-2.3) mg/dL Total Bilirubin (0.2-1.3) mg/dL AST (14-36) U/L ALT (9-52) U/L Alkaline Phosphatase (38-126) U/L Ammonia (<30) umol/L Creatine Kinase (30-135) U/L Troponin I (0.000-0.034) ng/mL NT-Pro-B Natriuret Pep pg/mL Total Protein (6.3-8.2) g/dL Albumin (3.5-5.0) g/dL Urine Color Yellow Urine Appearance Clear (Clear) Urine pH 5.5 (5.0-8.0) Ur Specific [place] 1.012 (1.001-1.035) Urine Protein Negative (Negative) Urine Glucose (UA) Negative (Negative) Urine Ketones Negative (Negative) Urine Blood Negative (Negative) Urine Nitrite Negative (Negative) Urine Bilirubin Negative (Negative) Urine Urobilinogen <2.0 (<2.0) mg/dL Ur Leukocyte Esterase Negative (Negative) Urine Opiates Screen Not Detected (NotDetected) Ur Oxycodone Screen Not Detected (NotDetected) Urine Methadone Screen Not Detected (NotDetected) Ur Propoxyphene Screen Not Detected (NotDetected) Ur Barbiturates Screen Not Detected (NotDetected) U Tricyclic Antidepress Not Detected (NotDetected) Ur Phencyclidine Scrn Not Detected (NotDetected) Ur Amphetamines Screen Not Detected (NotDetected) U Methamphetamines Scrn Not Detected (NotDetected) U Benzodiazepines Scrn Detected H (NotDetected) Urine Cocaine Screen Not Detected (NotDetected) U Marijuana (THC) Screen Not Detected (NotDetected) - EKG Data -: EKG Interpreted by Me EKG Comments: EKG shows sinus rhythm with PVCs and premature atrial complexes the rate was 76. Interval 184 QRS duration 96 QT since QTC 416/468 poor R-wave progression nonspecific ST configuration - Radiology Data Radiology results: report reviewed (I did review the imaging the CAT scan shows no acute findings CAT scan of the lumbar spine shows degenerative changes please see the complete report x-ray does show evidence of increased pulmonary vascular markings), image reviewed Critical Care Time Critical Care Time: Yes Critical Care Time: 45 minutes of critical care time which includes initial presentation with history physical labs x-rays discussed with the paramedics brought the patient. Review of old charting was available multiple evaluations the patient to responsive therapy discuss with the patient's family discussed with the transfer team documentation the above Disposition Clinical Impression: Delirium due to general medical condition, Congestive heart failure (CHF), Hypertension Disposition: OTHER INSTITUTION NOT DEFINED Condition: Fair Referrals: Yee Sales MD [Primary Care Provider] - 1-2 days - Out of Hospital Transfer - Req. Specs Out of Hospital Transfer - Requested Specifics: Other Emergency Center
[2019-10-21] MEDS ORDERED: hydrALAZINE HCL 20 MG/ML 1 ML VIAL IVP STA (07:43)
[2019-10-21 08:07] LABS: Anisocytosis Slight; Basophils % (A) 0 %; Eosinophils % (A) 0 %; HCT 31.9 % (34.0-46.0); HGB 10.2 gm/dL (11.4-16.0); Hypochromasia Slight; Lactic Acid, Venous 1.6 mmol/L (0.7-2.0); Lymphocytes # (A) 1.1 k/uL (1.0-4.8); Lymphocytes % (A) 17 %; MCH 30.2 pg (25.0-35.0); MCV 94.2 fL (80.0-100.0); Mean Platelet Volume 6.7; Monocytes # (A) 0.2 k/uL (0-1.0); Monocytes % (A) 3 %; Neutrophils # (A) 5.1 k/uL (1.3-7.7); Neutrophils % (A) 79 %; Poikilocytosis Slight; RBC 3.39 m/uL (3.80-5.40); RDW 16.2 % (11.5-15.5); WBC 6.5 k/uL (3.8-10.6)
[2019-10-21 08:11] LABS: Partial Thromboplastin Time 22.5 sec (22.0-30.0); Prothrombin Time 10.8 sec (9.0-12.0)
[2019-10-21 08:12] LABS: Platelet Count 425 k/uL (150-450)
[2019-10-21 08:21] LABS: Albumin 2.9 g/dL (3.5-5.0); Calcium 8.8 mg/dL (8.4-10.2); Magnesium 1.9 mg/dL (1.6-2.3); Potassium 3.9 mmol/L (3.5-5.1); Total Bilirubin 0.8 mg/dL (0.2-1.3); Total Protein 5.5 g/dL (6.3-8.2)
--- NOTE | 2019-10-21 09:34 | CT ---
EXAMINATION TYPE: CT brain wo con DATE OF EXAM: 10/21/2019 COMPARISON: Previous study dated 03/20/2019 HISTORY: Altered mental status CT DLP: 1197.4 mGycm Automated exposure control for dose reduction was used. FINDINGS: There are generalized changes of sulcal prominence and ventriculomegaly, compatible with atrophic margaret nge. There is diffuse periventricular white matter lucency, compatible with chronic white matter isch emic change. There is no acute focal lesion, mass effect or midline shift identified. I do not see ev idence of intracranial blood. Visualized portions of the paranasal sinuses and mastoids are clear. The bony calvarium is intact. IMPRESSION: 1. NO ACUTE INTRACRANIAL ABNORMALITY. 2. ATROPHY. 3. CHRONIC WHITE MATTER ISCHEMIC CHANGE.
--- NOTE | 2019-10-21 09:43 | CT ---
EXAMINATION TYPE: CT lumbar spine wo con DATE OF EXAM: 10/21/2019 9:10 AM COMPARISON: HISTORY: Back Pain CT DLP: 1096.4 mGycm Automated exposure control for dose reduction was used. Unenhanced CT of the lumbar spine was performed. Bone and soft tissue window settings are submitted as well as coronal and sagittal reconstructions. FINDINGS: There is moderate atheromatous calcification of the visualized arterial tree. There is unco mplicated diverticulosis of the sigmoid colon. The bladder is distended. There is a mild levoscoliosis. There is been vascular fixation of the spine. L4-5. There is a minimal retrograde listhesis of L1 on L2. Alignment is otherwise maintained. No fractures are seen. There are bilateral pleural effusions. At T12-L1, intervertebral foramina appear well maintained. There is no significant compressive discop athy. There is mild spondylosis deformans. There are hypertrophic changes in the facets. L1-L2: There is severe disc space loss. There is hypertrophic spondylosis present anteriorly. Interve rtebral foramina appear reasonably well-maintained. There is no significant compressive discopathy. T here are hypertrophic changes within the facets. L2-L3: There is disc space loss present. There is hypertrophic spondylosis as well as spondylosis def ormans. There is mild, bilateral intervertebral foraminal narrowing. There is a diffuse disc displace ment. There are hypertrophic changes in the facets. L3-L4: There is disc space loss. There is hypertrophic spondylosis as well as spondylosis deformans. There is a diffuse disc displacement. There is bilateral intervertebral foraminal narrowing, worse on the left than the right. There is moderately severe facet arthropathy. L4-L5: There has been a vascular fusion at this level. Intervertebral foramina appear reasonably well -maintained. There is no significant compressive discopathy. There is facet arthropathy. L5-S1: There is disc space loss. There is hypertrophic spondylosis as well as spondylosis deformans. There is right-sided intervertebral foraminal narrowing. There is a diffuse disc displacement. There are hypertrophic changes in the facets. IMPRESSION: 1. POSTSURGICAL CHANGE. 2. DIFFUSE HYPERTROPHIC SPONDYLOSIS AND SPONDYLOSIS DEFORMANS. 3. DIFFUSE FACET ARTHROPATHY. 4. MULTILEVEL INTERVERTEBRAL FORAMINAL NARROWING. 5. MILD LEVOSCOLIOSIS.
--- NOTE | 2019-10-21 09:45 | XR ---
EXAMINATION TYPE: XR chest 1V portable DATE OF EXAM: 10/21/2019 HISTORY: altered mental status. REFERENCE: Previous study dated 10/12/2019. FINDINGS: The study is moderately rotated. This gives an increased opacity to the right hemithorax. The heart is enlarged. There is blunting of both CP angles. I could not exclude small, bilateral effu sions. There is some mild vascular congestion without scott edema. IMPRESSION: 1. SUBOPTIMAL EXAM. 2. CARDIOMEGALY AND VASCULAR CONGESTION. 3. I COULD NOT EXCLUDE SMALL, BILATERAL EFFUSIONS.
[2019-10-21] MEDS ORDERED: FUROSEMIDE 10 MG/ML 4 ML VIAL IV STA (09:54)
[2019-10-21 10:22] LABS: Appearance,Urine Clear (Clear); Bilirubin,Urine Negative (Negative); Blood,Urine Negative (Negative); Color,Urine Yellow; Glucose,Urine (UA) Negative (Negative); Ketones,Urine Negative (Negative); Leukocyte Esterase,Urine Negative (Negative); Nitrite,Urine Negative (Negative); PH, Urine 5.5 (5.0-8.0); Protein,Urine Negative (Negative); Specific Gravity,Urine 1.012 (1.001-1.035); Urobilinogen,Urine <2.0 mg/dL (<2.0)
[2019-10-21] MEDS ORDERED: KETOROLAC 30 MG/ML 1 ML VIAL IVP STA (10:25)
[2019-10-21 10:55] LABS: Amphetamine Screen,Urine Not Detected (NotDetected); Barbiturate Screen,Urine Not Detected (NotDetected); Benzodiazepines Screen,Urine Detected (NotDetected); Cocaine Screen,Urine Not Detected (NotDetected); Methadone Screen, Urine Not Detected (NotDetected); Opiate Screen,Urine Not Detected (NotDetected); Oxycodone Screen, Urine Not Detected (NotDetected); Phencyclidine Screen,Urine Not Detected (NotDetected); Tricyclic Antidepressant,Urine Not Detected (NotDetected); Urn Cannabinoid Scrn Not Detected (NotDetected)
[2019-10-21 11:05] VITALS: RESP 18
[2019-10-21 12:01] VITALS: BP 167/74; PULSE 70
== END 2019-10-21 12:51 | disposition other institution (70) ==
LOC: EC 07:08
DX: F05 Delirium due to known physiological condition (principal); I13.0 Hypertensive heart and chronic kidney disease with heart failure and stage 1 through stage 4 chronic kidney disease, or unspecified chronic kidney disease; E11.21 Type 2 diabetes mellitus with diabetic nephropathy; N18.3 Chronic kidney disease, stage 3 (moderate); E11.22 Type 2 diabetes mellitus with diabetic chronic kidney disease; E66.9 Obesity, unspecified; I25.119 Atherosclerotic heart disease of native coronary artery with unspecified angina pectoris; E78.5 Hyperlipidemia, unspecified; I25.2 Old myocardial infarction; M10.9 Gout, unspecified; F32.9 Major depressive disorder, single episode, unspecified; Z79.82 Long term (current) use of aspirin; Z79.899 Other long term (current) drug therapy; Z79.84 Long term (current) use of oral hypoglycemic drugs; Z79.1 Long term (current) use of non-steroidal anti-inflammatories (NSAID); Z88.5 Allergy status to narcotic agent; Z88.6 Allergy status to analgesic agent; Z88.8 Allergy status to other drugs, medicaments and biological substances; Z87.891 Personal history of nicotine dependence; Z87.19 Personal history of other diseases of the digestive system; Z99.81 Dependence on supplemental oxygen; Z95.5 Presence of coronary angioplasty implant and graft; Z86.73 Personal history of transient ischemic attack (TIA), and cerebral infarction without residual deficits; Z68.24 Body mass index [BMI] 24.0-24.9, adult
CPT/HCPCS: 36415; 93005; 83880; 80053; 82140; 82550; 83605; 83735; 84484; 85025; 85610; 85730; 81003; 87040; 80306; 87077; 87186; 71045; 72131; 70450; 99291; 96374; 96375 ×3; 96361 ×2; J0360; J1940; J1885

== ENCOUNTER 2019-12-13 13:38 | Emergency (ER) | payer MEDICARE, BC ==
[2019-12-13] MEDS ORDERED: SODIUM CHLORIDE 0.9% 500 ML 500 ML IV STA (13:50)
[2019-12-13] MEDS ORDERED: SODIUM CHLORIDE 0.9% 1,000 ML IV STA (13:50)
[2019-12-13] MEDS ORDERED: FAMOTIDINE 20 MG/2 ML VIAL IV STA (13:57)
[2019-12-13] MEDS ORDERED: methylPREDNISolone SOD SUCCI 125 MG/2 ML VIAL IV STA (13:58)
[2019-12-13 14:16] LABS: Basophils # (A) 0.1 k/uL (0-0.2); Basophils % (A) 1 %; Eosinophils # (A) 0.9 k/uL (0-0.7); Eosinophils % (A) 8 %; HCT 40.3 % (34.0-46.0); HGB 13.1 gm/dL (11.4-16.0); Lymphocytes # (A) 1.9 k/uL (1.0-4.8); Lymphocytes % (A) 18 %; MCH 30.6 pg (25.0-35.0); MCHC 32.4 g/dL (31.0-37.0); MCV 94.2 fL (80.0-100.0); Mean Platelet Volume 7.3; Monocytes # (A) 0.4 k/uL (0-1.0); Monocytes % (A) 4 %; Neutrophils # (A) 7.1 k/uL (1.3-7.7); Neutrophils % (A) 67 %; Platelet Count 237 k/uL (150-450); RBC 4.28 m/uL (3.80-5.40); RDW 14.6 % (11.5-15.5); WBC 10.7 k/uL (3.8-10.6)
--- NOTE | 2019-12-13 14:23 | XR ---
EXAMINATION TYPE: XR chest 1V portable DATE OF EXAM: 12/13/2019 COMPARISON: Prior chest x-ray 10/21/2019 HISTORY: Dyspnea TECHNIQUE: Single frontal view of the chest is obtained. FINDINGS: Left-sided PICC line is present, distal tip is overlying the superior vena cava. Postop margaret nges are noted in the cervical spine. Overlying cardiac leads are noted. There is no focal air space opacity, pleural effusion, or pneumothorax seen. The cardiac silhouette size is borderline enlarged. The aorta is dense. Prominence of pulmonary artery may be indicative o f pulmonary artery hypertension. The osseous structures are intact. IMPRESSION: There is improvement in the appearance of the chest compared to prior exam. Cardiomegaly , improvement in aeration and volume status. Correlate for pulmonary artery hypertension.
[2019-12-13 14:25] LABS: Albumin 3.5 g/dL (3.5-5.0); Calcium 8.9 mg/dL (8.4-10.2); Magnesium 1.9 mg/dL (1.6-2.3); Potassium 4.1 mmol/L (3.5-5.1); Total Bilirubin 1.3 mg/dL (0.2-1.3); Total Protein 5.9 g/dL (6.3-8.2)
--- NOTE | 2019-12-13 14:45 | ED ---
Allergic Reaction HPI - General Chief complaint: Allergic Reaction Stated complaint: Allergic reaction Time Seen by Provider: 12/13/19 13:38 Source: patient, family, EMS, RN notes reviewed Mode of arrival: EMS Limitations: no limitations - History of Present Illness Initial Comments: This 89-year-old female was brought in by EMS due to a potential ALLERGIC reaction apparently started having a rash last night and got much worse today with difficulty swallowing difficulty breathing. He was given medication we Alexandreadadrienne Coricidin and in route was given epinephrine by paramedics. She was still not feeling well upon arrival. Given IV slight Medrol as well as IV Pepcid the. She is being treated for a epidural abscess her last dose of vancomycin was supposed to be today. She was told to stop afterwards. She also is on Levaquin. No prior reaction like this but they were afraid of something like this happening so she was instructed even before hand to his Benadryl if needed MD Complaint: allergic reaction - Related Data Home Medications Medication Instructions Recorded Confirmed Aspirin [Adult Low Dose Aspirin EC] 81 mg PO DAILY 11/21/17 10/21/19 Galantamine [Razadyne] 4 mg PO AC-BID 01/02/18 10/21/19 Escitalopram [Lexapro] 10 mg PO DAILY 12/20/18 10/21/19 Ondansetron [Zofran] 4 mg PO Q8HR PRN 01/13/19 10/21/19 Linagliptin [Tradjenta] 5 mg PO DAILY 03/09/19 10/21/19 Ergocalciferol [Vitamin D2 50,000 unit PO Q14D 10/07/19 10/21/19 (DRISDOL)] Furosemide [Lasix] 40 mg PO DAILY 10/07/19 10/21/19 Metoprolol Tartrate [Lopressor] 25 mg PO BID 10/07/19 10/21/19 hydrALAZINE HCL [Apresoline] 25 mg PO TID-W/MEALS 10/07/19 10/21/19 Semaglutide [Ozempic] 0.5 mg SQ FR 10/08/19 10/21/19 Baclofen [Lioresal] 10 mg PO TID 10/21/19 10/21/19 Celecoxib [CeleBREX] 200 mg PO DAILY 10/21/19 10/21/19 Isosorbide Mononitrate ER [Imdur] 60 mg PO DAILY 10/21/19 10/21/19 predniSONE [Deltasone] See Taper PO DAILY 10/21/19 10/21/19 Previous Rx's Medication Instructions Recorded Clopidogrel [Plavix] 75 mg PO DAILY tab 10/12/19 Famotidine [Pepcid] 20 mg PO BID #10 tablet 12/13/19 methylPREDNISolone Dose Pack 4 mg PO DIRECTED #21 package 12/13/19 [Medrol Dose Pack] Allergies Allergy/AdvReac Type Severity Reaction Status Date / Time hydrocodone [From [place]] Allergy Rash/Hives Verified 10/21/19 09:13 naproxen sodium [From Aleve] Allergy Itching,bessie Verified 10/21/19 09:13 h glimepiride [From Amaryl] AdvReac Nausea & Verified 10/21/19 09:13 Vomiting Review of Systems ROS Statement: Those systems with pertinent positive or pertinent negative responses have been documented in the HPI. ROS Other: All systems not noted in ROS Statement are negative. 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 Last Myocardial Infarction Date:: 11/18/17 History of Any Multi-Drug Resistant Organisms: None Reported Past Surgical History: Appendectomy, Back Surgery, Cholecystectomy, Heart Catheterization With Stent Additional Past Surgical History / Comment(s): Low back surgery, cervical surgery, R wrist carpal tunnel release, colonoscopy (not completed d/t poor prep) about 10 yrs ago, EGD 01/2018 d/t abdominal pain. Past Anesthesia/Blood Transfusion Reactions: No Reported Reaction Additional Past Anesthesia/Blood Transfusion Reaction / Comment(s): Pt has clausterphobia. Date of Last Stent Placement:: 11/18/17 Past Psychological History: Depression Smoking Status: Former smoker Past Alcohol Use History: None Reported Past Drug Use History: None Reported - Past Family History Father Additional Family Medical History / Comment(s): Father at age 91 from old age. Mother Additional Family Medical History / Comment(s): Mother at age 85 with history of lupus. Brother(s) Additional Family Medical History / Comment(s): Patient's siblings have history of coronary artery disease, diabetes, hypertension, macular degeneration. Daughter(s) Additional Family Medical History / Comment(s): Patient has 11 children; 6 daughters and 5 sons. 3 have and 2 from kidney failure and one was murdered. Sister(s) Additional Family Medical History / Comment(s): Pt had a sister live to be 102 yrs old. General Exam - General Exam Comments Initial Comments: Is a well-developed sec appearing female who is awake alert and some respiratory distress Limitations: no limitations General appearance: alert, anxious, in distress Head exam: Present: atraumatic, normocephalic, normal inspection Eye exam: Present: normal appearance, PERRL, EOMI. Absent: scleral icterus, conjunctival injection, periorbital swelling ENT exam: Present: other (Oropharynx is erythematous with some posterior edema) Neck exam: Present: normal inspection. Absent: tenderness, meningismus, lymphadenopathy Respiratory exam: Present: normal lung sounds bilaterally. Absent: respiratory distress, wheezes, rales, rhonchi, stridor Cardiovascular Exam: Present: regular rate, normal rhythm, normal heart sounds. Absent: systolic murmur, diastolic murmur, rubs, gallop, clicks GI/Abdominal exam: Present: soft, normal bowel sounds. Absent: distended, tenderness, guarding, rebound, rigid Extremities exam: Present: normal inspection, full ROM, normal capillary refill. Absent: tenderness, pedal edema, joint swelling, calf tenderness Back exam: Present: normal inspection Neurological exam: Present: alert, oriented X3, CN II-XII intact Psychiatric exam: Present: normal affect, normal mood Skin exam: Present: warm, dry, intact, normal color. Absent: rash Course Vital Signs 12/13/19 12/13/19 12/13/19 13:45 13:47 13:50 Temperature 100.5 F H Pulse Rate 93 95 Respiratory 26 H 11 L 28 H Rate Blood Pressure 156/121 O2 Sat by Pulse 100 Oximetry 12/13/19 12/13/19 12/13/19 14:00 14:30 14:50 Temperature 99.1 F Pulse Rate 92 96 Respiratory 16 16 Rate Blood Pressure 156/121 189/71 O2 Sat by Pulse 99 100 Oximetry 12/13/19 15:16 Temperature Pulse Rate Respiratory Rate Blood Pressure O2 Sat by Pulse 98 Oximetry - Reevaluation(s) Reevaluation #1: 12/13/19 14:49 Evaluation patient she is feeling much improved at this time with marked improvement in her color the patient daughter is at bedside I think she looks like she is back to normal. Medical Decision Making - Medical Decision Making Patient was reevaluated again she feels remarkably improved patient does request going home she has no trouble swallowing no trouble with tongue swelling. Erythema is almost totally resolved except for some on her back and discussed with the patient and her family members she will be discharged. She will be placed on a short course of steroids as well as H2 blockers and Benadryl to use when necessary she was cautioned about exposure to heat she will follow-up with her doctor again and return when necessary as dull with vancomycin at this time which is probably the cause elevated temperature also is likely secondary to the reaction today. Is no evidence of any other infectious process at this time - Lab Data Result diagrams: 12/13/19 13:45 12/13/19 13:45 Lab Results 12/13/19 12/13/19 Range/Units 13:45 13:45 WBC 10.7 H (3.8-10.6) k/uL RBC 4.28 (3.80-5.40) m/uL Hgb 13.1 (11.4-16.0) gm/dL Hct 40.3 (34.0-46.0) % MCV 94.2 (80.0-100.0) fL MCH 30.6 (25.0-35.0) pg MCHC 32.4 (31.0-37.0) g/dL RDW 14.6 (11.5-15.5) % Plt Count 237 (150-450) k/uL Neutrophils % 67 % Lymphocytes % 18 % Monocytes % 4 % Eosinophils % 8 % Basophils % 1 % Neutrophils # 7.1 (1.3-7.7) k/uL Lymphocytes # 1.9 (1.0-4.8) k/uL Monocytes # 0.4 (0-1.0) k/uL Eosinophils # 0.9 H (0-0.7) k/uL Basophils # 0.1 (0-0.2) k/uL Sodium 136 L (137-145) mmol/L Potassium 4.1 (3.5-5.1) mmol/L Chloride 100 (98-107) mmol/L Carbon Dioxide 23 (22-30) mmol/L Anion Gap 13 mmol/L BUN 33 H (7-17) mg/dL Creatinine 1.52 H (0.52-1.04) mg/dL Est GFR (CKD-EPI)AfAm 35 (>60 ml/min/1.73 sqM) Est GFR (CKD-EPI)NonAf 31 (>60 ml/min/1.73 sqM) Glucose 158 H (74-99) mg/dL Calcium 8.9 (8.4-10.2) mg/dL Magnesium 1.9 (1.6-2.3) mg/dL Total Bilirubin 1.3 (0.2-1.3) mg/dL AST 40 H (14-36) U/L ALT 23 (4-34) U/L Alkaline Phosphatase 111 (38-126) U/L Creatine Kinase 35 (30-135) U/L Total Protein 5.9 L (6.3-8.2) g/dL Albumin 3.5 (3.5-5.0) g/dL - Radiology Data Radiology results: report reviewed (I did review the imaging and report no acute findings.), image reviewed Disposition Clinical Impression: Allergic reaction to drug Disposition: HOME SELF-CARE Condition: Good Instructions (If sedation given, give patient instructions): General Allergic Reaction (ED) Prescriptions: methylPREDNISolone Dose Pack [Medrol Dose Pack] 4 mg PO DIRECTED #21 package Famotidine [Pepcid] 20 mg PO BID #10 tablet Is patient prescribed a controlled substance at d/c from ED?: No Referrals: Yee Sales MD [Primary Care Provider] - 1-2 days
[2019-12-13 15:16] VITALS: TEMP 99.1
[2019-12-13 16:10] VITALS: BP 154/72; PULSE 105; RESP 20
== END 2019-12-13 16:15 | disposition home or self-care (01) ==
LOC: EC 13:38
DX: T36.8X1A Poisoning by other systemic antibiotics, accidental (unintentional), initial encounter (principal); R13.10 Dysphagia, unspecified; R21 Rash and other nonspecific skin eruption; I25.119 Atherosclerotic heart disease of native coronary artery with unspecified angina pectoris; E11.22 Type 2 diabetes mellitus with diabetic chronic kidney disease; I13.0 Hypertensive heart and chronic kidney disease with heart failure and stage 1 through stage 4 chronic kidney disease, or unspecified chronic kidney disease; N18.2 Chronic kidney disease, stage 2 (mild); I50.9 Heart failure, unspecified; E11.40 Type 2 diabetes mellitus with diabetic neuropathy, unspecified; I48.20 Chronic atrial fibrillation, unspecified; I25.2 Old myocardial infarction; F32.9 Major depressive disorder, single episode, unspecified; Z79.82 Long term (current) use of aspirin; Z79.51 Long term (current) use of inhaled steroids; Z79.899 Other long term (current) drug therapy; Z88.5 Allergy status to narcotic agent; Z88.6 Allergy status to analgesic agent; Z88.8 Allergy status to other drugs, medicaments and biological substances; Z87.891 Personal history of nicotine dependence; Z86.73 Personal history of transient ischemic attack (TIA), and cerebral infarction without residual deficits; Z95.5 Presence of coronary angioplasty implant and graft
CPT/HCPCS: 36415; 93005; 80053; 82550; 83735; 85025; 71045; 99285; 96374; 96375; 96361 ×2; J2930

== ENCOUNTER 2019-12-17 05:16 | Emergency (ER) | payer MEDICARE, BC ==
[2019-12-17] MEDS ORDERED: ACETAMINOPHEN TAB 500 MG TAB PO STA (05:33)
[2019-12-17] MEDS ORDERED: SODIUM CHLORIDE 0.9% 500 ML 500 ML IV SCH (05:45)
[2019-12-17] MEDS ORDERED: SODIUM CHLORIDE 0.9% 1,000 ML IV SCH (05:45)
[2019-12-17 06:15] LABS: Basophils # (A) 0.1 k/uL (0-0.2); Basophils % (A) 0 %; Eosinophils # (A) 1.7 k/uL (0-0.7); Eosinophils % (A) 9 %; HGB 13.6 gm/dL (11.4-16.0); Lymphocytes # (A) 0.6 k/uL (1.0-4.8); Lymphocytes % (A) 3 %; MCH 29.9 pg (25.0-35.0); MCHC 32.5 g/dL (31.0-37.0); MCV 91.9 fL (80.0-100.0); Mean Platelet Volume 7.4; Monocytes # (A) 0.2 k/uL (0-1.0); Monocytes % (A) 1 %; Neutrophils # (A) 16.7 k/uL (1.3-7.7); Neutrophils % (A) 86 %; Platelet Count 285 k/uL (150-450); RBC 4.57 m/uL (3.80-5.40); RDW 14.3 % (11.5-15.5); WBC 19.3 k/uL (3.8-10.6)
[2019-12-17] MEDS ORDERED: ONDANSETRON 4 MG/2 ML VIAL IVP STA (06:16)
[2019-12-17] MEDS ORDERED: HYDROmorphone 1 MG/ML 1 ML SYRINGE IVP STA (06:16)
--- NOTE | 2019-12-17 06:16 | ED ---
Skin/Abscess/FB HPI - General Chief complaint: Skin/Abscess/Foreign Body Stated complaint: rash Time Seen by Provider: 12/17/19 05:19 Source: patient Mode of arrival: EMS - History of Present Illness Initial comments: Tracy is an 89-year-old female who presents to the emergency department today via ambulance for evaluation of rash. Patient was hospitalized approximately 8 weeks ago with intractable back pain and found to have a spinal epidural abscess, she had a PICC line placed was given antibiotics with the plan for 8 weeks of IV vancomycin. Patient tolerated the first 7 weeks of infusion without any difficulty. On December 10 the patient received an IV infusion of vancomycin and within 3 hours developed a rash throughout her body. She was advised that the time that she was suffering from red man syndrome. However the patient's rash persisted, on December 13 patient also developed some shortness of breath and EMS was contacted at which time she was treated for possible anaphylaxis. Patient was given IM epinephrine brought to the emergency department where she received Pepcid and Solu-Medrol. Patient seemed to be improving and her rash seemed to be less pronounced after the med so she is again discharged home. She has not had a repeat dose of vancomycin since that time. Daughter reports the patient hasn't been eating or drinking well. She's been complaining of a sore throat. Daughter is been trying to push oral fluids and yesterday got it her some Pedialyte and some ice water. This morning she woke up to check on her mother noticed that her rash seemed to be much more pronounced than prior and that she was very hot to the touch at which time EMS was again contacted for transport back to the hospital. - Related Data Home Medications Medication Instructions Recorded Confirmed Aspirin [Adult Low Dose Aspirin EC] 81 mg PO DAILY 11/21/17 10/21/19 Galantamine [Razadyne] 4 mg PO AC-BID 01/02/18 10/21/19 Escitalopram [Lexapro] 10 mg PO DAILY 12/20/18 10/21/19 Ondansetron [Zofran] 4 mg PO Q8HR PRN 01/13/19 10/21/19 Linagliptin [Tradjenta] 5 mg PO DAILY 03/09/19 10/21/19 Ergocalciferol [Vitamin D2 50,000 unit PO Q14D 10/07/19 10/21/19 (DRISDOL)] Furosemide [Lasix] 40 mg PO DAILY 10/07/19 10/21/19 Metoprolol Tartrate [Lopressor] 25 mg PO BID 10/07/19 10/21/19 hydrALAZINE HCL [Apresoline] 25 mg PO TID-W/MEALS 10/07/19 10/21/19 Semaglutide [Ozempic] 0.5 mg SQ FR 10/08/19 10/21/19 Baclofen [Lioresal] 10 mg PO TID 10/21/19 10/21/19 Celecoxib [CeleBREX] 200 mg PO DAILY 10/21/19 10/21/19 Isosorbide Mononitrate ER [Imdur] 60 mg PO DAILY 10/21/19 10/21/19 predniSONE [Deltasone] See Taper PO DAILY 10/21/19 10/21/19 Previous Rx's Medication Instructions Recorded Clopidogrel [Plavix] 75 mg PO DAILY tab 10/12/19 Famotidine [Pepcid] 20 mg PO BID #10 tablet 12/13/19 methylPREDNISolone Dose Pack 4 mg PO DIRECTED #21 package 12/13/19 [Medrol Dose Pack] Allergies Allergy/AdvReac Type Severity Reaction Status Date / Time hydrocodone [From [place]] Allergy Rash/Hives Verified 10/21/19 09:13 naproxen sodium [From Aleve] Allergy Itching,bessie Verified 10/21/19 09:13 h glimepiride [From Amaryl] AdvReac Nausea & Verified 10/21/19 09:13 Vomiting Review of Systems ROS Statement: Those systems with pertinent positive or pertinent negative responses have been documented in the HPI. ROS Other: All systems not noted in ROS Statement are negative. 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 Last Myocardial Infarction Date:: 11/18/17 History of Any Multi-Drug Resistant Organisms: None Reported Past Surgical History: Appendectomy, Back Surgery, Cholecystectomy, Heart Catheterization With Stent Additional Past Surgical History / Comment(s): Low back surgery, cervical surgery, R wrist carpal tunnel release, colonoscopy (not completed d/t poor prep) about 10 yrs ago, EGD 01/2018 d/t abdominal pain. Past Anesthesia/Blood Transfusion Reactions: No Reported Reaction Additional Past Anesthesia/Blood Transfusion Reaction / Comment(s): Pt has clausterphobia. Date of Last Stent Placement:: 11/18/17 Past Psychological History: Depression Smoking Status: Former smoker Past Alcohol Use History: None Reported Past Drug Use History: None Reported - Past Family History Father Additional Family Medical History / Comment(s): Father at age 91 from old age. Mother Additional Family Medical History / Comment(s): Mother at age 85 with history of lupus. Brother(s) Additional Family Medical History / Comment(s): Patient's siblings have history of coronary artery disease, diabetes, hypertension, macular degeneration. Daughter(s) Additional Family Medical History / Comment(s): Patient has 11 children; 6 daughters and 5 sons. 3 have and 2 from kidney failure and one was murdered. Sister(s) Additional Family Medical History / Comment(s): Pt had a sister live to be 102 yrs old. General Exam - General Exam Comments Initial Comments: Physical Exam GENERAL: Ill-appearing 89-year-old female HENT: Normocephalic, Atraumatic. EYES: PERRL, EOMI PULMONARY: No wheezing CARDIOVASCULAR: Tachycardic, regular ABDOMEN: Soft and nontender with normal bowel sounds. SKIN: Red skin macules over the face upper extremities chest back upper thighs genitals and leg the feet seem to be spared The back and the buttocks seem to have coalesced of all lesions There is sloughing of the skin on the buttocks and lower back as well as the labia and intertriginous areas : Skin sloughing on the labia majora NEUROLOGIC: Patient is alert and oriented x3. Moving all extremities spontaneously MUSCULOSKELETAL: Moving all extremities Generalized decrease strength PSYCHIATRIC: Normal psychiatric evaluation. Course Vital Signs 12/17/19 12/17/19 12/17/19 05:18 06:30 07:18 Temperature 103 F H 101.2 F H Pulse Rate 87 102 H Respiratory 16 16 Rate Blood Pressure 159/69 149/82 O2 Sat by Pulse 97 99 Oximetry Medical Decision Making - Medical Decision Making The patient was seen and evaluated history is obtained from EMS, patient, daughter bedside and review of medical record This is an elderly female recently on vancomycin has been treated for ALLERGIC reaction is progressively worsening decreased oral intake she has oral lesions, rash over the entire body sloughing of skin on the genitals at this time 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 Septic workup including inflammatory markers was obtained Labs resulted with leukocytosis this could be reactive to the steroids as well as reactive to recurrent skin condition INR is elevated likely due to liver dysfunction however transaminases are normal Troponin is detectable but not significantly elevated Lactic acid is 3.0 Considering the patient's advanced age, skin lesions covering approximately 80% of her body with skin already sloughing in the genitals I do feel the patient requires treatment at a tertiary care center where she can be evaluated by burn and other specialists. Patient's daughter understanding. We discussed options for transfer including the [facility] would be approximately half an hour closer to the patient's home and would be preferable. Patient care discussed with ER physician Dr Kearns who accepts the transfer for PE in. He reports they do have burn care available to evaluate the patient. - Lab Data Result diagrams: 12/17/19 06:00 12/17/19 06:00 Lab Results 12/17/19 12/17/19 12/17/19 Range/Units 06:00 06:00 06:00 WBC 19.3 H (3.8-10.6) k/uL RBC 4.57 (3.80-5.40) m/uL Hgb 13.6 (11.4-16.0) gm/dL Hct 42.0 (34.0-46.0) % MCV 91.9 (80.0-100.0) fL MCH 29.9 (25.0-35.0) pg MCHC 32.5 (31.0-37.0) g/dL RDW 14.3 (11.5-15.5) % Plt Count 285 (150-450) k/uL Neutrophils % 86 % Lymphocytes % 3 % Monocytes % 1 % Eosinophils % 9 % Basophils % 0 % Neutrophils # 16.7 H (1.3-7.7) k/uL Lymphocytes # 0.6 L (1.0-4.8) k/uL Monocytes # 0.2 (0-1.0) k/uL Eosinophils # 1.7 H (0-0.7) k/uL Basophils # 0.1 (0-0.2) k/uL PT (9.0-12.0) sec INR (<1.2) APTT (22.0-30.0) sec Sodium 130 L (137-145) mmol/L Potassium 3.5 (3.5-5.1) mmol/L Chloride 98 (98-107) mmol/L Carbon Dioxide 19 L (22-30) mmol/L Anion Gap 13 mmol/L BUN 59 H (7-17) mg/dL Creatinine 1.59 H (0.52-1.04) mg/dL Est GFR (CKD-EPI)AfAm 33 (>60 ml/min/1.73 sqM) Est GFR (CKD-EPI)NonAf 29 (>60 ml/min/1.73 sqM) Glucose 176 H (74-99) mg/dL Plasma Lactic Acid Maximus 3.0 H* (0.7-2.0) mmol/L Calcium 8.3 L (8.4-10.2) mg/dL Total Bilirubin 1.1 (0.2-1.3) mg/dL AST 23 (14-36) U/L ALT 20 (4-34) U/L Alkaline Phosphatase 78 (38-126) U/L Creatine Kinase 60 (30-135) U/L Troponin I (0.000-0.034) ng/mL C-Reactive Protein 56.1 H (<10.0) mg/L Total Protein 4.9 L (6.3-8.2) g/dL Albumin 2.7 L (3.5-5.0) g/dL 12/17/19 12/17/19 Range/Units 06:00 06:00 WBC (3.8-10.6) k/uL RBC (3.80-5.40) m/uL Hgb (11.4-16.0) gm/dL Hct (34.0-46.0) % MCV (80.0-100.0) fL MCH (25.0-35.0) pg MCHC (31.0-37.0) g/dL RDW (11.5-15.5) % Plt Count (150-450) k/uL Neutrophils % % Lymphocytes % % Monocytes % % Eosinophils % % Basophils % % Neutrophils # (1.3-7.7) k/uL Lymphocytes # (1.0-4.8) k/uL Monocytes # (0-1.0) k/uL Eosinophils # (0-0.7) k/uL Basophils # (0-0.2) k/uL PT 13.1 H (9.0-12.0) sec INR 1.3 H (<1.2) APTT 29.5 (22.0-30.0) sec Sodium (137-145) mmol/L Potassium (3.5-5.1) mmol/L Chloride (98-107) mmol/L Carbon Dioxide (22-30) mmol/L Anion Gap mmol/L BUN (7-17) mg/dL Creatinine (0.52-1.04) mg/dL Est GFR (CKD-EPI)AfAm (>60 ml/min/1.73 sqM) Est GFR (CKD-EPI)NonAf (>60 ml/min/1.73 sqM) Glucose (74-99) mg/dL Plasma Lactic Acid Maximus (0.7-2.0) mmol/L Calcium (8.4-10.2) mg/dL Total Bilirubin (0.2-1.3) mg/dL AST (14-36) U/L ALT (4-34) U/L Alkaline Phosphatase (38-126) U/L Creatine Kinase (30-135) U/L Troponin I 0.044 H* (0.000-0.034) ng/mL C-Reactive Protein (<10.0) mg/L Total Protein (6.3-8.2) g/dL Albumin (3.5-5.0) g/dL Critical Care Time Critical Care Time: Yes Total Critical Care Time: 45 Critical Care Time: Critical Care Time Critical care time was exclusive of separately billable procedures and treating other patients and teaching time. Critical care was necessary to treat or prevent imminent or life-threatening deterioration. Given the critical condition in which the patient arrived, the patient was immediately assessed by myself and the nurse, and cardiac monitoring initiated due to the potential for rapid decompensation of the patient's clinical condition. During the course of the patients stay, I spent a considerable amount of time at the bedside performing serial re-evaluations of the patient's hemodynamic and clinical status because of the recognized potential threat to life or limb in this condition. I then had a chance to review not only all of the available current laboratory and radiographic studies obtained today, but I also reviewed old records available to me at the time. Additionally, any ancillary information available including barrel leveler records were reviewed. Sequential vital signs were obtained. Disposition Clinical Impression: TEN (toxic epidermal necrolysis), Elevated troponin, Allergic reaction to drug Disposition: OTHER INSTITUTION NOT DEFINED Referrals: Yee Sales MD [Primary Care Provider] - 1-2 days - Out of Hospital Transfer - Req. Specs Out of Hospital Transfer - Requested Specifics: Other Emergency Center ([place])
[2019-12-17 06:28] LABS: INR 1.3 (<1.2); Partial Thromboplastin Time 29.5 sec (22.0-30.0); Prothrombin Time 13.1 sec (9.0-12.0)
[2019-12-17 06:32] LABS: Albumin 2.7 g/dL (3.5-5.0); Calcium 8.3 mg/dL (8.4-10.2); Potassium 3.5 mmol/L (3.5-5.1); Total Bilirubin 1.1 mg/dL (0.2-1.3); Total Protein 4.9 g/dL (6.3-8.2)
[2019-12-17] MEDS ORDERED: LIDOCAINE URO-JET JELLY 2% 5 ML KIT URETHRAL ONE (06:39)
--- NOTE | 2019-12-17 06:55 | XR ---
EXAM: XR Chest, 2 Views CLINICAL HISTORY: ITS.REASON XR Reason: Fever TECHNIQUE: Frontal and lateral views of the chest. COMPARISON: 12/13/2019. FINDINGS: Lungs: The lungs are well aerated. Pleural space: No pneumothorax. No pleural effusion. Heart: The heart is normal in size. Mediastinum: Unremarkable. Bones/joints: Mild osteopenia. Postsurgical changes in the lower cervical spine are again noted. Soft tissues: The soft tissues are unremarkable. Vasculature: Atherosclerotic disease of the aortic knob. Tubes, lines and devices: Right subclavian catheter is again noted in place with its tip at the junction of the proximal to mid superior vena cava, unchanged. IMPRESSION: No active disease, similar to the previous study.
[2019-12-17 07:07] LABS: C Reactive Protein 56.1 mg/L (<10.0)
[2019-12-17] MEDS ORDERED: diphenhydrAMINE 50 MG/ML 1 ML VIAL IVP STA (07:28)
[2019-12-17 08:16] VITALS: PULSE 96; RESP 20
[2019-12-17 08:27] VITALS: BP 148/89; TEMP 100.8
== END 2019-12-17 08:16 | disposition short-term general hospital (02) ==
LOC: EC 05:16
DX: L51.2 Toxic epidermal necrolysis [Lyell] (principal); T50.905A Adverse effect of unspecified drugs, medicaments and biological substances, initial encounter; R79.89 Other specified abnormal findings of blood chemistry; D72.829 Elevated white blood cell count, unspecified; R00.0 Tachycardia, unspecified; I96 Gangrene, not elsewhere classified; J02.9 Acute pharyngitis, unspecified; I25.119 Atherosclerotic heart disease of native coronary artery with unspecified angina pectoris; I13.0 Hypertensive heart and chronic kidney disease with heart failure and stage 1 through stage 4 chronic kidney disease, or unspecified chronic kidney disease; I50.9 Heart failure, unspecified; N18.2 Chronic kidney disease, stage 2 (mild); E11.22 Type 2 diabetes mellitus with diabetic chronic kidney disease; E11.52 Type 2 diabetes mellitus with diabetic peripheral angiopathy with gangrene; E11.42 Type 2 diabetes mellitus with diabetic polyneuropathy; I25.2 Old myocardial infarction; F32.9 Major depressive disorder, single episode, unspecified; H54.62 Unqualified visual loss, left eye, normal vision right eye; F01.50 Vascular dementia, unspecified severity, without behavioral disturbance, psychotic disturbance, mood disturbance, and anxiety; H54.61 Unqualified visual loss, right eye, normal vision left eye; Z87.891 Personal history of nicotine dependence; Z88.5 Allergy status to narcotic agent; Z88.6 Allergy status to analgesic agent; Z88.8 Allergy status to other drugs, medicaments and biological substances; Z79.1 Long term (current) use of non-steroidal anti-inflammatories (NSAID); Z79.52 Long term (current) use of systemic steroids; Z79.82 Long term (current) use of aspirin; Z79.84 Long term (current) use of oral hypoglycemic drugs; Z79.899 Other long term (current) drug therapy; Z95.5 Presence of coronary angioplasty implant and graft; Z86.73 Personal history of transient ischemic attack (TIA), and cerebral infarction without residual deficits; Z95.828 Presence of other vascular implants and grafts
CPT/HCPCS: 99285; 96374; 96375 ×2; 96361 ×2; 36415; 93005; 80053; 82550; 83605; 84484; 85025; 85610; 85730; 86140; 84145; 71046; J1200; J2405; J1170

== ENCOUNTER 2020-01-21 00:12 | Inpatient (IN) | payer MEDICARE, BC ==
[2020-01-21 00:26] LABS: Glucose,Whole Blood 318 mg/dL (75-99)
[2020-01-21 01:05] LABS: Albumin 2.8 g/dL (3.5-5.0); Calcium 8.1 mg/dL (8.4-10.2); Magnesium 2.4 mg/dL (1.6-2.3); Potassium 4.1 mmol/L (3.5-5.1); Total Bilirubin 0.7 mg/dL (0.2-1.3); Total Protein 5.5 g/dL (6.3-8.2)
--- NOTE | 2020-01-21 01:17 | XR ---
EXAMINATION TYPE: XR chest 1V portable DATE OF EXAM: 01/21/2020 COMPARISON: December 17, 2019 HISTORY: Short of breath TECHNIQUE: FINDINGS: There is pulmonary edema. Heart is enlarged. Thoracic aorta is atheromatous. There are ches t leads. There is mild blunting of the costophrenic angles. IMPRESSION: Congestive heart failure and pulmonary edema is new compared to last exam. I lateral pleu ral effusions new compared to last exam.
[2020-01-21] MEDS ORDERED: cefTRIAXone IN SWFI 1,000 MG/10 ML SYRINGE IVP STA (01:56)
[2020-01-21 03:18] LABS: INR 1.1 (<1.2)
[2020-01-21] MEDS ORDERED: FUROSEMIDE 10 MG/ML 4 ML VIAL IV STA ×2 (03:18→19:19)
[2020-01-21 03:27] LABS: Partial Thromboplastin Time 22.5 sec (22.0-30.0)
[2020-01-21 03:49] LABS: Anisocytosis Slight; Basophils # (A) 0.1 k/uL (0-0.2); Basophils % (A) 0 %; Eosinophils % (A) 0 %; HCT 26.9 % (34.0-46.0); Hypochromasia Slight; Lymphocytes # (A) 1.4 k/uL (1.0-4.8); Lymphocytes % (A) 10 %; MCH 30.7 pg (25.0-35.0); MCHC 31.1 g/dL (31.0-37.0); Macrocytosis Slight; Mean Platelet Volume 7.9; Monocytes # (A) 0.6 k/uL (0-1.0); Monocytes % (A) 4 %; Neutrophils # (A) 11.5 k/uL (1.3-7.7); Neutrophils % (A) 84 %; Platelet Count 436 k/uL (150-450); RBC 2.73 m/uL (3.80-5.40); RDW 16.4 % (11.5-15.5); WBC 13.7 k/uL (3.8-10.6)
[2020-01-21 03:51] LABS: HGB 8.4 gm/dL (11.4-16.0); MCV 98.8 fL (80.0-100.0)
[2020-01-21] MEDS: FUROSEMIDE 10 MG/ML 4 ML VIAL IV SCH ×2 (05:06→18:10)
--- NOTE | 2020-01-21 06:10 | ED ---
SOB HPI - General Chief Complaint: Shortness of Breath Stated Complaint: Diff Breathing Time Seen by Provider: 01/21/20 00:17 Source: patient Mode of arrival: EMS Limitations: physical limitation (Severe dyspnea) - History of Present Illness Initial Comments: This patient is an 89-year-old woman brought from her long-term care facility. I was reported that she has been short of breath for a couple of days and also having a little bit of cough. Over the course of the past 5-6 hours her breathing has worsened and they were not able to obtain a good pulse oximetry readings so they called EMS. EMS stated that she was very dyspneic they started CPAP and transported her here. Patient not able to give much history as she is only able to get 1-2 words out. Denying chest pain. No fevers noted. No purulent sputum. MD Complaint: shortness of breath, cough -: hour(s) Severity scale (1-10): 0 Consistency: constant Improves With: oxygen Worsens With: lying flat Known History Of: congestive heart failure Associated Symptoms: denies other symptoms, cough Treatments Prior to Arrival: oxygen, bronchodilator, NIPPV - Related Data Home Oxygen Therapy: Yes Home Oxygen Amount: other (5 L) Home Medications Medication Instructions Recorded Confirmed Aspirin [Adult Low Dose Aspirin EC] 81 mg PO DAILY 11/21/17 10/21/19 Galantamine [Razadyne] 4 mg PO AC-BID 01/02/18 10/21/19 Escitalopram [Lexapro] 10 mg PO DAILY 12/20/18 10/21/19 Ondansetron [Zofran] 4 mg PO Q8HR PRN 01/13/19 10/21/19 Linagliptin [Tradjenta] 5 mg PO DAILY 03/09/19 10/21/19 Ergocalciferol [Vitamin D2 50,000 unit PO Q14D 10/07/19 10/21/19 (DRISDOL)] Furosemide [Lasix] 40 mg PO DAILY 10/07/19 10/21/19 Metoprolol Tartrate [Lopressor] 25 mg PO BID 10/07/19 10/21/19 hydrALAZINE HCL [Apresoline] 25 mg PO TID-W/MEALS 10/07/19 10/21/19 Semaglutide [Ozempic] 0.5 mg SQ FR 10/08/19 10/21/19 Baclofen [Lioresal] 10 mg PO TID 10/21/19 10/21/19 Celecoxib [CeleBREX] 200 mg PO DAILY 10/21/19 10/21/19 Isosorbide Mononitrate ER [Imdur] 60 mg PO DAILY 10/21/19 10/21/19 predniSONE [Deltasone] See Taper PO DAILY 10/21/19 10/21/19 Previous Rx's Medication Instructions Recorded Clopidogrel [Plavix] 75 mg PO DAILY tab 10/12/19 Famotidine [Pepcid] 20 mg PO BID #10 tablet 12/13/19 methylPREDNISolone Dose Pack 4 mg PO DIRECTED #21 package 12/13/19 [Medrol Dose Pack] Allergies Allergy/AdvReac Type Severity Reaction Status Date / Time hydrocodone [From Kinder] Allergy Rash/Hives Verified 10/21/19 09:13 naproxen sodium [From Aleve] Allergy Itching,bessie Verified 10/21/19 09:13 h glimepiride [From Amaryl] AdvReac Nausea & Verified 10/21/19 09:13 Vomiting Review of Systems ROS Statement: Those systems with pertinent positive or pertinent negative responses have been documented in the HPI. ROS Other: All systems not noted in ROS Statement are negative. Limitations: ROS unobtainable due to patients medical condition (Severe dyspnea) Constitutional: Denies: fever Respiratory: Reports: cough, dyspnea. Denies: hemoptysis Cardiovascular: Denies: chest pain Gastrointestinal: Denies: abdominal pain, vomiting Musculoskeletal: Denies: back pain Neurological: Denies: headache Past Medical History Past Medical History: Coronary Artery Disease (CAD), Chest Pain / Angina, Heart Failure, CVA/TIA, Diabetes Mellitus, GI Bleed, Hyperlipidemia, Hypertension, Myocardial Infarction ([place]), Renal Disease Additional Past Medical History / Comment(s): Other hx: Dysphagia, NIDDM type II, neuropathy bilateral hands, home oxygen which she wears prn, chronic kidney disease stage II, UTIs, small hiatal hernia, vascular dementia, 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 Last Myocardial Infarction Date:: 11/18/17 History of Any Multi-Drug Resistant Organisms: None Reported Past Surgical History: Appendectomy, Back Surgery, Cholecystectomy, Heart Catheterization With Stent Additional Past Surgical History / Comment(s): Low back surgery, cervical surgery, R wrist carpal tunnel release, colonoscopy (not completed d/t poor prep) about 10 yrs ago, EGD 01/2018 d/t abdominal pain. Past Anesthesia/Blood Transfusion Reactions: No Reported Reaction Additional Past Anesthesia/Blood Transfusion Reaction / Comment(s): Pt has clausterphobia. Date of Last Stent Placement:: 11/18/17 Past Psychological History: Depression Smoking Status: Former smoker Past Alcohol Use History: None Reported Past Drug Use History: None Reported - Past Family History Father Additional Family Medical History / Comment(s): Father at age 91 from old age. Mother Additional Family Medical History / Comment(s): Mother at age 85 with history of lupus. Brother(s) Additional Family Medical History / Comment(s): Patient's siblings have history of coronary artery disease, diabetes, hypertension, macular degeneration. Daughter(s) Additional Family Medical History / Comment(s): Patient has 11 children; 6 daughters and 5 sons. 3 have and 2 from kidney failure and one was murdered. Sister(s) Additional Family Medical History / Comment(s): Pt had a sister live to be 102 yrs old. General Exam Limitations: no limitations General appearance: alert, in distress, obese Head exam: Present: atraumatic Eye exam: Present: normal appearance Respiratory exam: Present: respiratory distress, rales, rhonchi, accessory muscle use. Absent: wheezes, stridor, decreased breath sounds, prolonged expiratory Cardiovascular Exam: Present: regular rate, normal rhythm, systolic murmur, gallop. Absent: diastolic murmur, rubs GI/Abdominal exam: Present: soft. Absent: tenderness, guarding, rebound Extremities exam: Present: normal capillary refill. Absent: pedal edema, calf tenderness Back exam: Absent: CVA tenderness (R), CVA tenderness (L) Neurological exam: Present: alert Skin exam: Present: warm, dry, intact, mottled. Absent: rash Course Vital Signs 01/21/20 01/21/20 01/21/20 00:13 03:07 04:25 Temperature 96.4 F L Pulse Rate 88 69 68 Respiratory 26 H 202 H 20 Rate Blood Pressure 131/68 114/58 89/55 O2 Sat by Pulse 92 L 100 98 Oximetry 01/21/20 05:30 Temperature Pulse Rate 72 Respiratory 20 Rate Blood Pressure 95/43 O2 Sat by Pulse 97 Oximetry Medical Decision Making - Lab Data Result diagrams: 01/21/20 01:54 01/21/20 00:33 Lab Results 01/21/20 01/21/20 01/21/20 Range/Units 00:24 00:33 00:33 WBC (3.8-10.6) k/uL RBC (3.80-5.40) m/uL Hgb (11.4-16.0) gm/dL Hct (34.0-46.0) % MCV (80.0-100.0) fL MCH (25.0-35.0) pg MCHC (31.0-37.0) g/dL RDW (11.5-15.5) % Plt Count (150-450) k/uL Neutrophils % % Lymphocytes % % Monocytes % % Eosinophils % % Basophils % % Neutrophils # (1.3-7.7) k/uL Lymphocytes # (1.0-4.8) k/uL Monocytes # (0-1.0) k/uL Eosinophils # (0-0.7) k/uL Basophils # (0-0.2) k/uL Hypochromasia Anisocytosis Macrocytosis PT (9.0-12.0) sec INR (<1.2) APTT (22.0-30.0) sec Sodium 134 L (137-145) mmol/L Potassium 4.1 (3.5-5.1) mmol/L Chloride 99 (98-107) mmol/L Carbon Dioxide 24 (22-30) mmol/L Anion Gap 11 mmol/L BUN 44 H (7-17) mg/dL Creatinine 1.56 H (0.52-1.04) mg/dL Est GFR (CKD-EPI)AfAm 34 (>60 ml/min/1.73 sqM) Est GFR (CKD-EPI)NonAf 30 (>60 ml/min/1.73 sqM) Glucose 278 H (74-99) mg/dL POC Glucose (mg/dL) 318 H (75-99) mg/dL POC Glu Landscaping Supervisor ID kOsana Rosales Lactic Ac Sepsis Rflx Plasma Lactic Acid Maximus 4.5 H* (0.7-2.0) mmol/L Calcium 8.1 L (8.4-10.2) mg/dL Magnesium 2.4 H (1.6-2.3) mg/dL Total Bilirubin 0.7 (0.2-1.3) mg/dL AST 34 (14-36) U/L ALT 19 (4-34) U/L Alkaline Phosphatase 118 (38-126) U/L Troponin I (0.000-0.034) ng/mL NT-Pro-B Natriuret Pep pg/mL Total Protein 5.5 L (6.3-8.2) g/dL Albumin 2.8 L (3.5-5.0) g/dL Influenza Type A RNA (Not Detectd) Influenza Type B (PCR) (Not Detectd) 01/21/20 01/21/20 01/21/20 Range/Units 00:33 00:33 01:43 WBC (3.8-10.6) k/uL RBC (3.80-5.40) m/uL Hgb (11.4-16.0) gm/dL Hct (34.0-46.0) % MCV (80.0-100.0) fL MCH (25.0-35.0) pg MCHC (31.0-37.0) g/dL RDW (11.5-15.5) % Plt Count (150-450) k/uL Neutrophils % % Lymphocytes % % Monocytes % % Eosinophils % % Basophils % % Neutrophils # (1.3-7.7) k/uL Lymphocytes # (1.0-4.8) k/uL Monocytes # (0-1.0) k/uL Eosinophils # (0-0.7) k/uL Basophils # (0-0.2) k/uL Hypochromasia Anisocytosis Macrocytosis PT (9.0-12.0) sec INR (<1.2) APTT (22.0-30.0) sec Sodium (137-145) mmol/L Potassium (3.5-5.1) mmol/L Chloride (98-107) mmol/L Carbon Dioxide (22-30) mmol/L Anion Gap mmol/L BUN (7-17) mg/dL Creatinine (0.52-1.04) mg/dL Est GFR (CKD-EPI)AfAm (>60 ml/min/1.73 sqM) Est GFR (CKD-EPI)NonAf (>60 ml/min/1.73 sqM) Glucose (74-99) mg/dL POC Glucose (mg/dL) (75-99) mg/dL POC Glu Landscaping Supervisor ID Lactic Ac Sepsis Rflx Y Plasma Lactic Acid Maximus (0.7-2.0) mmol/L Calcium (8.4-10.2) mg/dL Magnesium (1.6-2.3) mg/dL Total Bilirubin (0.2-1.3) mg/dL AST (14-36) U/L ALT (4-34) U/L Alkaline Phosphatase (38-126) U/L Troponin I 0.921 H* (0.000-0.034) ng/mL NT-Pro-B Natriuret Pep pg/mL Total Protein (6.3-8.2) g/dL Albumin (3.5-5.0) g/dL Influenza Type A RNA Not Detected (Not Detectd) Influenza Type B (PCR) Not Detected (Not Detectd) 01/21/20 01/21/20 01/21/20 Range/Units 01:54 01:54 01:54 WBC 13.7 H (3.8-10.6) k/uL RBC 2.73 L (3.80-5.40) m/uL Hgb 8.4 L D (11.4-16.0) gm/dL Hct 26.9 L (34.0-46.0) % MCV 98.8 D (80.0-100.0) fL MCH 30.7 (25.0-35.0) pg MCHC 31.1 (31.0-37.0) g/dL RDW 16.4 H (11.5-15.5) % Plt Count 436 (150-450) k/uL Neutrophils % 84 % Lymphocytes % 10 % Monocytes % 4 % Eosinophils % 0 % Basophils % 0 % Neutrophils # 11.5 H (1.3-7.7) k/uL Lymphocytes # 1.4 (1.0-4.8) k/uL Monocytes # 0.6 (0-1.0) k/uL Eosinophils # 0.0 (0-0.7) k/uL Basophils # 0.1 (0-0.2) k/uL Hypochromasia Slight Anisocytosis Slight Macrocytosis Slight PT 11.0 (9.0-12.0) sec INR 1.1 (<1.2) APTT 22.5 (22.0-30.0) sec Sodium (137-145) mmol/L Potassium (3.5-5.1) mmol/L Chloride (98-107) mmol/L Carbon Dioxide (22-30) mmol/L Anion Gap mmol/L BUN (7-17) mg/dL Creatinine (0.52-1.04) mg/dL Est GFR (CKD-EPI)AfAm (>60 ml/min/1.73 sqM) Est GFR (CKD-EPI)NonAf (>60 ml/min/1.73 sqM) Glucose (74-99) mg/dL POC Glucose (mg/dL) (75-99) mg/dL POC Glu Landscaping Supervisor ID Lactic Ac Sepsis Rflx Plasma Lactic Acid Maximus (0.7-2.0) mmol/L Calcium (8.4-10.2) mg/dL Magnesium (1.6-2.3) mg/dL Total Bilirubin (0.2-1.3) mg/dL AST (14-36) U/L ALT (4-34) U/L Alkaline Phosphatase (38-126) U/L Troponin I (0.000-0.034) ng/mL NT-Pro-B Natriuret Pep 42790 pg/mL Total Protein (6.3-8.2) g/dL Albumin (3.5-5.0) g/dL Influenza Type A RNA (Not Detectd) Influenza Type B (PCR) (Not Detectd) - EKG Data -: EKG Interpreted by Ok EKG shows normal: sinus rhythm, axis (Normal), intervals (Normal), ST-T waves (Possible inferior and lateral ischemia) Rate: normal (Rate 80 bpm) When compared to previous EKG there are: other (Similar to ECG from December 17.) Disposition Clinical Impression: Congestive heart failure, Elevated troponin Disposition: ADMITTED IP TO THIS [facility] Condition: Poor
[2020-01-21 07:32] LABS: Glucose,Whole Blood 221 mg/dL (75-99)
[2020-01-21] MEDS: NOREPINEPHRINE 4 MG in SODIUM CHLORIDE 0.9% 250 ML IV SCH ×2 (09:45→22:45)
[2020-01-21] MEDS: CLOPIDOGREL 75 MG TAB PO SCH (10:41)
[2020-01-21] MEDS: ASPIRIN 81 MG PO SCH (10:41)
[2020-01-21] MEDS: hydrALAZINE HCL 25 MG TAB PO SCH ×2 (10:41→18:10)
[2020-01-21] MEDS: ISOSORBIDE MONONITRATE ER 60 MG TAB.ER.24H PO SCH (10:41)
[2020-01-21] MEDS: METOPROLOL TARTRATE 25 MG TAB PO SCH ×2 (10:41→22:41)
--- NOTE | 2020-01-21 10:50 | P.CRDCN ---
History of Present Illness History of present illness: HISTORY OF PRESENTING ILLNESS This is a pleasant 89-year-old female past medical history significant for coronary artery disease status post recent PCI to the left main and LAD in 2018, ischemic cardiomyopathy with last known ejection fraction 35-40%, chronic systolic heart failure, valvular heart disease, hypertension, dyslipidemia and diabetes mellitus. She follows in the office with Dr. Otto. We have been asked to see in consultation for heart failure and elevated troponin. Rales at home with her daughter who takes care of her. Over the previous 4 days she has noticed an increase in shortness of breath. According to the daughter the patient struggles with anxiety and has been having more frequent anxiety attacks. However yesterday her symptoms worsened quite acutely. She started having a lot of cough congestion significant shortness of breath and has been unable to get comfortable and sleep for 2 days. On arrival the patient was placed on BiPAP. She was given dose of IV Lasix. She is maintained currently on BiPAP resting comfortably lying flat in bed in no acute distress. DIAGNOSTICS EKG reveals sinus mechanism, ST depression in anterior lateral leads, chronic when compared to old EKGs. Chest xray pulmonary edema and blunting of the costophrenic angles. Laboratory reviewed, WBC 13.7, hemoglobin 8.4, platelets 436, sodium 134, potassium 4.1, creatinine 1.56 with a GFR of 30, lactic acid on admission 4. 5 repeat 1.8, magnesium 2.4, troponin 0.921 and NT proBNP 71,100. Current cardiac medications include aspirin 81 mg daily, Plavix 75 mg daily, hydralazine 25 mg 3 times a day, Lopressor 25 mg twice a day, Imdur 60 mg daily and Lasix 40 mg daily. She underwent transesophageal echocardiogram March 2019 revealing impaired LV systolic function with ejection fraction 35-40%, moderately dilated left atrium, trileaflet aortic valve with aortic sclerosis and moderate stenosis with a mean gradient of 20 mmHg, moderate mitral regurgitation and mild to moderate tricuspid regurgitation REVIEW OF SYSTEMS At the time of my exam: CONSTITUTIONAL: Denies fever or chills. CARDIOVASCULAR: Denies chest pain, shortness of breath, orthopnea, PND or palpit ations. RESPIRATORY: Denies cough. GASTROINTESTINAL: Denies abdominal pain, diarrhea, constipation, nausea or vomiting. MUSCULOSKELETAL: Denies myalgias. NEUROLOGIC: Denies numbness, tingling or weakness. ENDOCRINE: Denies fatigue, weight change, polydipsia or polyurina. GENITOURINARY: Denies burning, hematuria or urgency with micturation. HEMATOLOGIC: Denies history of anemia or bleeding. PHYSICAL EXAMINATION Blood pressure 137/56 heart rate 75 afebrile and maintaining oxygen saturation on BiPAP. CONSTITUTIONAL: No apparent distress. HEENT: Head is normocephalic. Pupils are equal, round. Sclerae anicteric. Mucous membranes of the mouth are moist. No JVD. No carotid bruit. CHEST EXAMINATION: Expiratory wheezes, faint bibasilar rales, no rhonchi. No chest wall tenderness is noted on palpation or with deep breathing. HEART EXAMINATION: Regular rate and rhythm. S1, S2 heard. Systolic ejection murmur at the base and left sternal border, no gallops or rub. ABDOMEN: Soft, nontender. Positive bowel sounds. EXTREMITIES: 2+ peripheral pulses, trace bilateral lower extremity nonpitting edema and no calf tenderness. NEUROLOGIC EXAMINATION: Patient is awake, alert and oriented. ASSESSMENT Acute on chronic systolic heart failure Elevated troponin, likely related to type II myocardial ischemia due to supply demand mismatch History of coronary artery disease status post recent PCI of the left main March 2019 maintained on dual antiplatelet therapy Anemia hemoglobin 8.4 most recently 13.6 in December 2019 Valvular heart disease Ischemic cardiomyopathy Hypertension Dyslipidemia Diabetes mellitus PLAN Continue to diurese with Lasix 40 mg IV twice a day. Follow renal function and electrolytes daily. Documented accurate intake and output along with daily weights. Check stool for occult blood. Further recommendations to follow based upon clinical course. Thank you kindly for this consultation. Nurse Practitioner note has been reviewed, I agree with a documented findings and plan of care. Patient was seen and examined. 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 Last Myocardial Infarction Date:: 11/18/17 History of Any Multi-Drug Resistant Organisms: None Reported Past Surgical History: Appendectomy, Back Surgery, Cholecystectomy, Heart Catheterization With Stent Additional Past Surgical History / Comment(s): Low back surgery, cervical surgery, R wrist carpal tunnel release, colonoscopy (not completed d/t poor prep) about 10 yrs ago, EGD 01/2018 d/t abdominal pain. Past Anesthesia/Blood Transfusion Reactions: No Reported Reaction Additional Past Anesthesia/Blood Transfusion Reaction / Comment(s): Pt has clausterphobia. Date of Last Stent Placement:: 11/18/17 Past Psychological History: Depression Smoking Status: Former smoker Past Alcohol Use History: None Reported Past Drug Use History: None Reported - Past Family History Father Additional Family Medical History / Comment(s): Father at age 91 from old age. Mother Additional Family Medical History / Comment(s): Mother at age 85 with history of lupus. Brother(s) Additional Family Medical History / Comment(s): Patient's siblings have history of coronary artery disease, diabetes, hypertension, macular degeneration. Daughter(s) Additional Family Medical History / Comment(s): Patient has 11 children; 6 d aughters and 5 sons. 3 have and 2 from kidney failure and one was murdered. Sister(s) Additional Family Medical History / Comment(s): Pt had a sister live to be 102 yrs old. Medications and Allergies Home Medications Medication Instructions Recorded Confirmed Type Aspirin [Adult Low Dose Aspirin EC] 81 mg PO DAILY 11/21/17 10/21/19 History Galantamine [Razadyne] 4 mg PO AC-BID 01/02/18 10/21/19 History Escitalopram [Lexapro] 10 mg PO DAILY 12/20/18 10/21/19 History Ondansetron [Zofran] 4 mg PO Q8HR PRN 01/13/19 10/21/19 History Linagliptin [Tradjenta] 5 mg PO DAILY 03/09/19 10/21/19 History Ergocalciferol [Vitamin D2 50,000 unit PO Q14D 10/07/19 10/21/19 History (DRISDOL)] Furosemide [Lasix] 40 mg PO DAILY 10/07/19 10/21/19 History Metoprolol Tartrate [Lopressor] 25 mg PO BID 10/07/19 10/21/19 History hydrALAZINE HCL [Apresoline] 25 mg PO TID-W/MEALS 10/07/19 10/21/19 History Semaglutide [Ozempic] 0.5 mg SQ FR 10/08/19 10/21/19 History Clopidogrel [Plavix] 75 mg PO DAILY tab 10/12/19 10/21/19 Rx Baclofen [Lioresal] 10 mg PO TID 10/21/19 10/21/19 History Celecoxib [CeleBREX] 200 mg PO DAILY 10/21/19 10/21/19 History Isosorbide Mononitrate ER [Imdur] 60 mg PO DAILY 10/21/19 10/21/19 History predniSONE [Deltasone] See Taper PO DAILY 10/21/19 10/21/19 History Famotidine [Pepcid] 20 mg PO BID #10 tablet 12/13/19 Rx methylPREDNISolone Dose Pack 4 mg PO DIRECTED #21 package 12/13/19 Rx [Medrol Dose Pack] Allergies Allergy/AdvReac Type Severity Reaction Status Date / Time hydrocodone [From [place]] Allergy Rash/Hives Verified 10/21/19 09:13 naproxen sodium [From Aleve] Allergy Itching,bessie Verified 10/21/19 09:13 h glimepiride [From Amaryl] AdvReac Nausea & Verified 10/21/19 09:13 Vomiting Physical Exam Vitals: Vital Signs Temp Pulse Pulse Resp BP BP Pulse Ox 01/21/20 08:40 97.6 F 75 19 137/56 98 01/21/20 07:22 95 01/21/20 07:05 97.7 F 75 22 130/58 100 01/21/20 05:30 72 20 95/43 97 01/21/20 04:25 68 20 89/55 98 01/21/20 03:07 69 202 H 114/58 100 01/21/20 00:13 96.4 F L 88 26 H 131/68 92 L Intake and Output 01/20/20 01/21/20 01/21/20 21:59 06:59 14:59 Other: Weight Results 01/21/20 01:54 01/21/20 00:33 Cardiac Enzymes 01/21/20 01/21/20 Range/Units 00:33 00:33 AST 34 (14-36) U/L Troponin I 0.921 H* (0.000-0.034) ng/mL Coagulation 01/21/20 Range/Units 01:54 PT 11.0 (9.0-12.0) sec APTT 22.5 (22.0-30.0) sec CBC 01/21/20 Range/Units 01:54 WBC 13.7 H (3.8-10.6) k/uL RBC 2.73 L (3.80-5.40) m/uL Hgb 8.4 L D (11.4-16.0) gm/dL Hct 26.9 L (34.0-46.0) % Plt Count 436 (150-450) k/uL Comprehensive Metabolic Panel 01/21/20 Range/Units 00:33 Sodium 134 L (137-145) mmol/L Potassium 4.1 (3.5-5.1) mmol/L Chloride 99 (98-107) mmol/L Carbon Dioxide 24 (22-30) mmol/L BUN 44 H (7-17) mg/dL Creatinine 1.56 H (0.52-1.04) mg/dL Glucose 278 H (74-99) mg/dL Calcium 8.1 L (8.4-10.2) mg/dL AST 34 (14-36) U/L ALT 19 (4-34) U/L Alkaline Phosphatase 118 (38-126) U/L Total Protein 5.5 L (6.3-8.2) g/dL Albumin 2.8 L (3.5-5.0) g/dL Current Medications Generic Name Dose Route Start Last Admin Trade Name Jana PRN Reason Stop Dose Admin Furosemide 40 mg 01/21/20 05:00 01/21/20 05:06 Lasix IV Not Given Q12H MYCHAL Sodium Chloride 10 ml 01/21/20 09:00 Saline Flush IV BID MYCHAL Intake and Output 01/20/20 01/21/20 01/21/20 21:59 06:59 14:59 Other: Weight 01/21/20 01:54 01/21/20 00:33
[2020-01-21] MEDS: INSULIN ASPART (NovoLOG) 100 UNIT/ML VIAL SQ SCH ×3 (12:29→22:42)
[2020-01-21 12:30] LABS: Glucose,Whole Blood 165 mg/dL (75-99)
--- NOTE | 2020-01-21 12:58 | P.HPIM ---
History of Present Illness H&P Date: 01/21/20 Chief Complaint: Difficulty breathing This is an 89-year-old female patient of Dr. Sales with known medical history of chronic systolic heart failure and ischemic cardiomyopathy with known ejection fraction 35-40%, severe mitral regurgitation, moderate aortic stenosis, hypertension, chronic kidney disease stage III, type 2 diabetes, Alzheimer's dementia, coronary artery disease status post PCI to the left main and LAD in 2018, hypertension, hyperlipidemia, recurrent depression. Patient is currently living at home with her daughter. She was recently at [facility] for subacute rehab. 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 After patient was discharged to [place], she went to [facility] had increased edema to the arms and legs for which Lasix was on a 20 g twice daily. This was eventually decreased to every day. She was also on Nepro supplement. Patient has had increasing shortness of breath. She was utilizing 1-1-1/2 L of oxygen at home and normally pulse oxing 90-96%. Daughter gradually increase this until she was up to 5 L of oxygen yesterday and then called EMS. Patient normally is ambulatory with a walker with assistance. She needs help with feeding. Patient has been under increased stress especially the last 3 days as a daughter on December 24. At the time of this evaluation, patient is on BiPAP. She is able to answer some simple questions, most of the history is obtained from the patient's daughter. Patient was brought into [facility] emergency center for evaluation. WBC 13.7, hemoglobin 8.4, platelets 436, sodium 134, potassium 4.1, creatinine 1.56 with a GFR of 30, lactic acid on admission 4. 5 repeat 1.8, magnesium 2.4, troponin 0.921 and repeat 1.440, and NT proBNP 71,100, TSH 2.570. EKG sinus rhythm with ST depression in anterior lateral leads, chronic when compared to old EKGs. Patient has been afebrile, heart rate 69, respiratory rate 26, pulse ox 92% on BiPAP, blood pressure 131/68. Chest x-ray shows congestive heart failure pulmonary edema compared to old exam. Pleural effusions new. Patient has been admitted to the cardiac stepdown unit and consults with pulmonary medicine and cardiology. Review of Systems Constitutional: Reports fatigue, Reports lethargy, Reports malaise, Reports poor appetite, Reports weakness, Denies chills, Denies fever Eyes: denies blurred vision, denies pain Ears, nose, mouth and throat: Denies dysphagia, Denies headache, Denies nasal congestion, Denies nasal discharge, Denies sore throat, Denies vertigo Cardiovascular: Reports decreased exercise tolerance, Reports dyspnea on exertion, Reports edema, Reports shortness of breath, Denies chest pain, Denies lightheadedness, Denies palpitations Respiratory: Reports dyspnea, Reports home oxygen, Denies cough, Denies cough with sputum, Denies excessive sputum, Denies hemoptysis Gastrointestinal: Reports loss of appetite, Denies abdominal pain, Denies diarrhea, Denies nausea, Denies vomiting Genitourinary: Denies dysuria, Denies hematuria, Denies urgency, Denies urinary frequency Menstruation: Reports postmenopausal Musculoskeletal: Reports muscle weakness, Denies myalgias Integumentary: Denies pruritus, Denies rash Neurological: Denies change in mentation, Denies change in speech, Denies numbness, Denies weakness Psychiatric: Reports anxiety, Denies depression Endocrine: Denies fatigue, Denies weight change Past Medical History Past Medical History: Coronary Artery Disease (CAD), Chest Pain / Angina, Heart Failure, CVA/TIA, Diabetes Mellitus, GI Bleed, Hyperlipidemia, Hypertension, Myocardial Infarction ([place]), Renal Disease Additional Past Medical History / Comment(s): Other hx: Dysphagia, NIDDM type II, neuropathy bilateral hands, home oxygen which she wears prn, chronic kidney disease stage II, UTIs, small hiatal hernia, vascular dementia, 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 Last Myocardial Infarction Date:: 11/18/17 History of Any Multi-Drug Resistant Organisms: None Reported Past Surgical History: Appendectomy, Back Surgery, Cholecystectomy, Heart Catheterization With Stent Additional Past Surgical History / Comment(s): Low back surgery, cervical surgery, R wrist carpal tunnel release, colonoscopy (not completed d/t poor prep) about 10 yrs ago, EGD 01/2018 d/t abdominal pain. Past Anesthesia/Blood Transfusion Reactions: No Reported Reaction Additional Past Anesthesia/Blood Transfusion Reaction / Comment(s): Pt has clausterphobia. Date of Last Stent Placement:: 11/18/17 Past Psychological History: Depression Smoking Status: Former smoker Past Alcohol Use History: None Reported Additional Past Alcohol Use History / Comment(s): Pt started smoking in 1961 and quit in 1982. No illicit drug use. No alcohol use. Past Drug Use History: None Reported - Past Family History Father Additional Family Medical History / Comment(s): Father at age 91 from old age. Mother Additional Family Medical History / Comment(s): Mother at age 85 with history of lupus. Brother(s) Additional Family Medical History / Comment(s): Patient's siblings have history of coronary artery disease, diabetes, hypertension, macular degeneration. Daughter(s) Additional Family Medical History / Comment(s): Patient has 11 children; 6 daughters and 5 sons. 3 have and 2 from kidney failure and one was murdered. Sister(s) Additional Family Medical History / Comment(s): Pt had a sister live to be 102 yrs old. Medications and Allergies Home Medications Medication Instructions Recorded Confirmed Type Aspirin [Adult Low Dose Aspirin EC] 81 mg PO DAILY 11/21/17 01/21/20 History Galantamine [Razadyne] 4 mg PO AC-BID 01/02/18 01/21/20 History Escitalopram [Lexapro] 10 mg PO DAILY 12/20/18 01/21/20 History Ondansetron [Zofran] 4 mg PO Q8HR PRN 01/13/19 01/21/20 History Linagliptin [Tradjenta] 5 mg PO DAILY 03/09/19 01/21/20 History Ergocalciferol [Vitamin D2 50,000 unit PO Q14D 10/07/19 01/21/20 History (DRISDOL)] Furosemide [Lasix] 20 mg PO BID 10/07/19 01/21/20 History Clopidogrel [Plavix] 75 mg PO DAILY tab 10/12/19 01/21/20 Rx Celecoxib [CeleBREX] 200 mg PO DAILY PRN 10/21/19 01/21/20 History Acetaminophen-Codeine 300-30mg 1 tab PO BID PRN 01/21/20 01/21/20 History [Tylenol w/codeine #3] Atorvastatin [Lipitor] 10 mg PO DAILY 01/21/20 01/21/20 History Famotidine [Pepcid] 20 mg PO DAILY 01/21/20 01/21/20 History Isosorbide Mononitrate ER [Imdur] 30 mg PO DAILY 01/21/20 01/21/20 History Metoprolol Tartrate [Lopressor] 50 mg PO Q8H 01/21/20 01/21/20 History Nitroglycerin Sl Tabs [Nitrostat] 0.4 mg SUBLINGUAL Q5M PRN 01/21/20 01/21/20 History Repaglinide [Prandin] 0.5 mg PO BID 01/21/20 01/21/20 History amLODIPine [Norvasc] 10 mg PO DAILY 01/21/20 01/21/20 History hydrALAZINE HCL [Apresoline] 100 mg PO TID 01/21/20 01/21/20 History Allergies Allergy/AdvReac Type Severity Reaction Status Date / Time hydrocodone [From [place]] Allergy Rash/Hives Verified 01/21/20 11:58 naproxen sodium [From Aleve] Allergy Itching,bessie Verified 01/21/20 11:58 h glimepiride [From Amaryl] AdvReac Nausea & Verified 01/21/20 11:58 Vomiting Physical Exam Vitals: Vital Signs Temp Pulse Pulse Resp BP BP Pulse Ox 01/21/20 08:40 97.6 F 75 19 137/56 98 01/21/20 07:22 95 01/21/20 07:05 97.7 F 75 22 130/58 100 01/21/20 05:30 72 20 95/43 97 01/21/20 04:25 68 20 89/55 98 01/21/20 03:07 69 202 H 114/58 100 01/21/20 00:13 96.4 F L 88 26 H 131/68 92 L Intake and Output 01/20/20 01/21/20 01/21/20 21:59 06:59 14:59 Other: Weight Gen: This is an 89-year-old female. Patient is lying flat in bed on BiPAP. HEENT: Head is atraumatic, normocephalic. Pupils equal, round. Sclerae is anict nell. Oral mucous membranes are dry. NECK: Supple. No JVD. No lymphadenopathy. No thyromegaly. LUNGS: Expiratory wheezing, diminished in the bases. No intercostal retractions. HEART: Regular rate and rhythm. Systolic murmur. ABDOMEN: Soft. Bowel sounds are present. No masses. No tenderness. EXTREMITIES: Trace bilateral lower extremity and upper extremity edema. No calf tenderness. Dorsalis pedis +2 bilaterally. NEUROLOGICAL: Patient is awake, alert and oriented x2-3. Generalized weakness, no focal neural deficits Results CBC & Chem 7: 01/21/20 01:54 01/21/20 00:33 Labs: Abnormal Lab Results - Last 24 Hours (Table) 01/21/20 01/21/20 01/21/20 Range/Units 00:24 00:33 00:33 WBC (3.8-10.6) k/uL RBC (3.80-5.40) m/uL Hgb (11.4-16.0) gm/dL Hct (34.0-46.0) % RDW (11.5-15.5) % Neutrophils # (1.3-7.7) k/uL Sodium 134 L (137-145) mmol/L BUN 44 H (7-17) mg/dL Creatinine 1.56 H (0.52-1.04) mg/dL Glucose 278 H (74-99) mg/dL POC Glucose (mg/dL) 318 H (75-99) mg/dL Plasma Lactic Acid Maximus 4.5 H* (0.7-2.0) mmol/L Calcium 8.1 L (8.4-10.2) mg/dL Magnesium 2.4 H (1.6-2.3) mg/dL Troponin I (0.000-0.034) ng/mL Total Protein 5.5 L (6.3-8.2) g/dL Albumin 2.8 L (3.5-5.0) g/dL 01/21/20 01/21/20 01/21/20 Range/Units 00:33 01:54 07:27 WBC 13.7 H (3.8-10.6) k/uL RBC 2.73 L (3.80-5.40) m/uL Hgb 8.4 L D (11.4-16.0) gm/dL Hct 26.9 L (34.0-46.0) % RDW 16.4 H (11.5-15.5) % Neutrophils # 11.5 H (1.3-7.7) k/uL Sodium (137-145) mmol/L BUN (7-17) mg/dL Creatinine (0.52-1.04) mg/dL Glucose (74-99) mg/dL POC Glucose (mg/dL) 221 H (75-99) mg/dL Plasma Lactic Acid Maximus (0.7-2.0) mmol/L Calcium (8.4-10.2) mg/dL Magnesium (1.6-2.3) mg/dL Troponin I 0.921 H* (0.000-0.034) ng/mL Total Protein (6.3-8.2) g/dL Albumin (3.5-5.0) g/dL 01/21/20 Range/Units 10:11 WBC (3.8-10.6) k/uL RBC (3.80-5.40) m/uL Hgb (11.4-16.0) gm/dL Hct (34.0-46.0) % RDW (11.5-15.5) % Neutrophils # (1.3-7.7) k/uL Sodium (137-145) mmol/L BUN (7-17) mg/dL Creatinine (0.52-1.04) mg/dL Glucose (74-99) mg/dL POC Glucose (mg/dL) (75-99) mg/dL Plasma Lactic Acid Maximus (0.7-2.0) mmol/L Calcium (8.4-10.2) mg/dL Magnesium (1.6-2.3) mg/dL Troponin I 1.440 H* (0.000-0.034) ng/mL Total Protein (6.3-8.2) g/dL Albumin (3.5-5.0) g/dL Thrombosis Risk Factor Assmnt - DVT/VTE Prophylaxis DVT/VTE Prophylaxis: Pharmacologic Prophylaxis ordered Assessment and Plan Plan: 1. Acute on chronic systolic heart failure. Consult with cardiology appreciated. Pulmonary medicine also on consult. Continue Lasix 40 mg IV twice daily, monitor I&O and daily weights, monitor renal function and electrolytes. Echocardiogram has been ordered. 2. Elevated troponin, possible acute coronary syndrome. Cardiology is on consult. 3. History of coronary artery disease status post PCI of the left main in March 2019. Continue aspirin 81 mg daily, Lipitor 10 mg daily, Plavix 75 mg daily, Imdur 60 mg daily, Lopressor 25 mg twice daily. 4. Ischemic cardiomyopathy. Continue as in #1. 5. Hypertension. Continue Lasix, hydralazine 25 mg 3 times daily, Imdur. Hold Norvasc. 6. Hyperlipidemia. Continue statin 7. Diabetes mellitus type 2. Continue NovoLog scale before meals and at bedtime, Prandin 0.5 mg twice daily, Tradjenta 5 mg daily. 8. Alzheimer's dementia. Hold galantamine. 9. Chronic kidney disease stage II. Avoid nephrotoxic agents. 10. Recurrent depression. Continue Lexapro 10 mg daily. 11. Valvular heart disease with moderate aortic stenosis and moderate mitral regurgitation, [id number] tricuspid regurgitation. 12. Anemia with history of acute blood loss GI bleed anemia that had recovered in November and December with hemoglobin of 13.6. Iron studies, stool for occult blood. Patient will be admitted to the hospital for a minimum of 2 night stay. Discharge plan: To be determined. PT and OT will be added tomorrow. Impression and plan of care have been directed as dictated by the signing physician. Donita Padron nurse practitioner acting as scribe for signing physician.
[2020-01-21 14:54] LABS: Appearance,Urine Clear (Clear); Bacteria,Urine Rare /hpf; Bilirubin,Urine Negative (Negative); Blood,Urine Negative (Negative); Color,Urine Yellow; Glucose,Urine (UA) Negative (Negative); Hyaline Casts,Urine 11 /lpf (0-2); Ketones,Urine Negative (Negative); Leukocyte Esterase,Urine Large (Negative); Mucus,Urine Rare /hpf; Nitrite,Urine Negative (Negative); PH, Urine 5.5 (5.0-8.0); Protein,Urine Negative (Negative); RBC,Urine 1 /hpf (0-5); Specific Gravity,Urine 1.012 (1.001-1.035); Urobilinogen,Urine <2.0 mg/dL (<2.0); WBC,Urine 30 /hpf (0-5)
--- NOTE | 2020-01-21 15:43 | P.CNPUL ---
History of Present Illness Consult date: 01/21/20 Reason for consult: dyspnea History of present illness: 89-year-old female patient with known history of CAD and CHF with an ejection fraction of 55-40% and history of valvular heart disease with severe MR and severe TR along with other comorbidities such as hypertension and hyperlipidemia and diabetes mellitus. The patient came into the hospital because of worsening shortness of breath. Her chest x-ray shows cardiomegaly and pulmonary edema and possibly some bilateral pleural effusion. Her shortness of breath developed 4 days ago and progressively got worse. She also had some increased cough and congestion either to bring up much sputum. No fever or chills. The influenza screen was negative. ProBNP level was 71,000. Troponin peaked at 1.4. Her serum lactate was at one 0.8. Creatinine is at 1.5 with a white second of 13.7 and a hemoglobin of 8.4. EKG showing a normal sinus rhythm. She weighs over the inferior leads and inferior leads suggestive of sepsis/inferior infarct. No ST segment elevation or depression. Currently, the patient is on BiPAP for respiratory support at a pressure of 12/6 with an FiO2 of 60%. The patient is also receiving IV Lasix 40 mg every 12 hours. Review of Systems Constitutional: Reports fatigue, Reports lethargy, Reports malaise, Reports poor appetite, Reports weakness, Denies chills, Denies fever Eyes: denies blurred vision, denies pain Ears, nose, mouth and throat: Denies dysphagia, Denies headache, Denies nasal congestion, Denies nasal discharge, Denies sore throat, Denies vertigo Cardiovascular: Reports decreased exercise tolerance, Reports dyspnea on exertion, Reports edema, Reports shortness of breath, Denies chest pain, Denies lightheadedness, Denies palpitations Respiratory: Reports dyspnea, Reports home oxygen, Denies cough, Denies cough with sputum, Denies excessive sputum, Denies hemoptysis Gastrointestinal: Reports loss of appetite, Denies abdominal pain, Denies felix rrhea, Denies nausea, Denies vomiting Genitourinary: Denies dysuria, Denies hematuria, Denies urgency, Denies urinary frequency Menstruation: Reports postmenopausal Musculoskeletal: Reports muscle weakness, Denies myalgias Integumentary: Denies pruritus, Denies rash Neurological: Denies change in mentation, Denies change in speech, Denies numbness, Denies weakness Psychiatric: Reports anxiety, Denies depression Endocrine: Denies fatigue, Denies weight change Past Medical History Past Medical History: Coronary Artery Disease (CAD), Chest Pain / Angina, Heart Failure, CVA/TIA, Diabetes Mellitus, GI Bleed, Hyperlipidemia, Hypertension, Myocardial Infarction ([place]), Renal Disease Additional Past Medical History / Comment(s): Other hx: Dysphagia, NIDDM type II, neuropathy bilateral hands, home oxygen which she wears prn, chronic kidney disease stage II, UTIs, small hiatal hernia, vascular dementia, 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 Last Myocardial Infarction Date:: 11/18/17 History of Any Multi-Drug Resistant Organisms: None Reported Past Surgical History: Appendectomy, Back Surgery, Cholecystectomy, Heart Catheterization With Stent Additional Past Surgical History / Comment(s): Low back surgery, cervical surgery, R wrist carpal tunnel release, colonoscopy (not completed d/t poor prep) about 10 yrs ago, EGD 01/2018 d/t abdominal pain. Past Anesthesia/Blood Transfusion Reactions: No Reported Reaction Additional Past Anesthesia/Blood Transfusion Reaction / Comment(s): Pt has clausterphobia. Date of Last Stent Placement:: 11/18/17 Past Psychological History: Depression Smoking Status: Former smoker Past Alcohol Use History: None Reported Additional Past Alcohol Use History / Comment(s): Pt started smoking in 2 and quit in 1982. No illicit drug use. No alcohol use. Past Drug Use History: None Reported - Past Family History Father Additional Family Medical History / Comment(s): Father at age 91 from old age. Mother Additional Family Medical History / Comment(s): Mother at age 85 with history of lupus. Brother(s) Additional Family Medical History / Comment(s): Patient's siblings have history of coronary artery disease, diabetes, hypertension, macular degeneration. Daughter(s) Additional Family Medical History / Comment(s): Patient has 11 children; 6 daughters and 5 sons. 3 have and 2 from kidney failure and one was murdered. Sister(s) Additional Family Medical History / Comment(s): Pt had a sister live to be 102 yrs old. Medications and Allergies Home Medications Medication Instructions Recorded Confirmed Type Aspirin [Adult Low Dose Aspirin EC] 81 mg PO DAILY 11/21/17 01/21/20 History Galantamine [Razadyne] 4 mg PO AC-BID 01/02/18 01/21/20 History Escitalopram [Lexapro] 10 mg PO DAILY 12/20/18 01/21/20 History Ondansetron [Zofran] 4 mg PO Q8HR PRN 01/13/19 01/21/20 History Linagliptin [Tradjenta] 5 mg PO DAILY 03/09/19 01/21/20 History Ergocalciferol [Vitamin D2 50,000 unit PO Q14D 10/07/19 01/21/20 History (DRISDOL)] Furosemide [Lasix] 20 mg PO BID 10/07/19 01/21/20 History Clopidogrel [Plavix] 75 mg PO DAILY tab 10/12/19 01/21/20 Rx Celecoxib [CeleBREX] 200 mg PO DAILY PRN 10/21/19 01/21/20 History Acetaminophen-Codeine 300-30mg 1 tab PO BID PRN 01/21/20 01/21/20 History [Tylenol w/codeine #3] Atorvastatin [Lipitor] 10 mg PO DAILY 01/21/20 01/21/20 History Famotidine [Pepcid] 20 mg PO DAILY 01/21/20 01/21/20 History Isosorbide Mononitrate ER [Imdur] 30 mg PO DAILY 01/21/20 01/21/20 History Metoprolol Tartrate [Lopressor] 50 mg PO Q8H 01/21/20 01/21/20 History Nitroglycerin Sl Tabs [Nitrostat] 0.4 mg SUBLINGUAL Q5M PRN 01/21/20 01/21/20 History Repaglinide [Prandin] 0.5 mg PO BID 01/21/20 01/21/20 History amLODIPine [Norvasc] 10 mg PO DAILY 01/21/20 01/21/20 History hydrALAZINE HCL [Apresoline] 100 mg PO TID 01/21/20 01/21/20 History Allergies Allergy/AdvReac Type Severity Reaction Status Date / Time hydrocodone [From [place]] Allergy Rash/Hives Verified 01/21/20 11:58 naproxen sodium [From Aleve] Allergy Itching,bessie Verified 01/21/20 11:58 h glimepiride [From Amaryl] AdvReac Nausea & Verified 01/21/20 11:58 Vomiting Physical Exam Vitals: Vital Signs Temp Pulse Pulse Resp BP BP Pulse Ox 01/21/20 12:27 98.6 F 75 18 121/78 98 01/21/20 08:40 97.6 F 75 19 137/56 98 01/21/20 07:22 95 01/21/20 07:05 97.7 F 75 22 130/58 100 01/21/20 05:30 72 20 95/43 97 01/21/20 04:25 68 20 89/55 98 01/21/20 03:07 69 202 H 114/58 100 01/21/20 00:13 96.4 F L 88 26 H 131/68 92 L Intake and Output 01/21/20 01/21/20 01/21/20 06:59 14:59 22:59 Intake Total 20 Output Total 450 Balance -430 Intake: IV 20 Invasive Line 1 20 Oral 0 Output: Urine 450 Uretheral (Sunshine) 450 Other: Weight 96.5 kg The patient appeared well nourished and normally developed. Vital signs as documented. Head exam is unremarkable. No scleral icterus or corneal arcus noted. Neck is without jugular venous distension, thyromegaly, or carotid bruits. Carotid upstrokes are brisk bilaterally. Lungs are clear to auscultation and percussion. Cardiac exam reveals the PMI to be normally sized and situated. Rhythm is regular. First and second heart sounds normal. There is a systolic ejection murmur grade 4/6 typical of an aortic stenosis murmur heard mainly in the left lateral sternal border and apical area., rubs or gallops. Abdominal exam reveals normal bowel sounds, no masses, no organomegaly and no aortic enlargement. Extremities are slightly edematous and both femoral and pedal pu lses are normal.Examination of the skin revealed no evidence of significant rashes, suspicious appearing nevi or other concerning lesions.. Neurologically the patient is awake and alert and there is no focal neurological deficits. Results - Laboratory Findings CBC and BMP: 01/21/20 01:54 01/21/20 00:33 PT/INR, D-dimer PT 11.0 sec (9.0-12.0) 01/21/20 01:54 INR 1.1 (<1.2) 01/21/20 01:54 Abnormal lab findings: Abnormal Labs 01/21/20 01/21/20 01/21/20 00:24 00:33 00:33 WBC RBC Hgb Hct RDW Neutrophils # Sodium 134 L BUN 44 H Creatinine 1.56 H Glucose 278 H POC Glucose (mg/dL) 318 H Plasma Lactic Acid Maximus 4.5 H* Calcium 8.1 L Magnesium 2.4 H Troponin I Total Protein 5.5 L Albumin 2.8 L Ur Leukocyte Esterase Urine WBC Urine Bacteria Hyaline Casts Urine Mucus 01/21/20 01/21/20 01/21/20 00:33 01:54 07:27 WBC 13.7 H RBC 2.73 L Hgb 8.4 L D Hct 26.9 L RDW 16.4 H Neutrophils # 11.5 H Sodium BUN Creatinine Glucose POC Glucose (mg/dL) 221 H Plasma Lactic Acid Maximus Calcium Magnesium Troponin I 0.921 H* Total Protein Albumin Ur Leukocyte Esterase Urine WBC Urine Bacteria Hyaline Casts Urine Mucus 01/21/20 01/21/20 01/21/20 10:11 12:29 14:10 WBC RBC Hgb Hct RDW Neutrophils # Sodium BUN Creatinine Glucose POC Glucose (mg/dL) 165 H Plasma Lactic Acid Maximus Calcium Magnesium Troponin I 1.440 H* Total Protein Albumin Ur Leukocyte Esterase Large H Urine WBC 30 H Urine Bacteria Rare H Hyaline Casts 11 H Urine Mucus Rare H - Diagnostic Findings Chest x-ray: image reviewed Assessment and Plan Plan: 1 acute CHF exacerbation with a component of pulmonary edema and bilateral pleural effusions. The patient has prosthetic showed hypoxic respiratory failure requiring BiPAP for respiratory support and she is also being diuresis with IV Lasix. She is still alert and awake and she is following some simple commands pH is synchronous with a BiPAP treatment for now through a full face mask. 2 acute non-ST segment elevation myocardial infarction with elevated troponins 3 multivessel coronary artery disease with previous stenting of the LAD and subsequent stenting of the left main that was done in March 2019 with the use of a Impella device. The patient has segmental wall motion abnormalities. The underlying ejection fraction is no other of 35%. 4 CHF with an ejection fraction of 35%, she had a component of pulmonary vessel congestion on yesterday's evaluation and the patient was given Lasi she is well diuresis for now 5 Moderate aortic stenosis 6 history of CVA/TIA 7 diabetes mellitus 8 previous bouts of GI bleed 9 chronic stage III kidney disease creatinine 10 diabetic peripheral neuropathy 11 small hiatal hernia 12 vascular dementia 13 history of bilateral eye blindness related to macular degeneration 14 unsteady gait with possibility of increased risk of fall 15 previous history of GI bleed possibly of a lower GI source. The EGD that was done showed mild gastritis without evidence of an acute bleeding. The patient colonoscopy that showed no evidence of any acute bleeding and the patient had pandiverticulosis. Hemoglobin currently is a 0.4 without evidence of an acute bleed Plan Continue BiPAP Continue IV Lasix Fluid restriction Monitor renal function Prognosis poor. Establish CODE STATUS. Echocardiogram has been repeated Repeated blood work Unfortunately the prognosis poor baseline above-mentioned comorbidities. We'll continue to follow. She will likely not do well and I strongly urged to the changing the CODE STATUS in this patient
[2020-01-21 17:13] LABS: Glucose,Whole Blood 135 mg/dL (75-99)
[2020-01-21] MEDS ORDERED: ALPRAZolam 0.5 MG TAB PO STA (19:19)
--- NOTE | 2020-01-21 19:46 | XR ---
EXAMINATION TYPE: XR chest 1V DATE OF EXAM: 01/21/2020 COMPARISON: Today HISTORY: Short of breath. TECHNIQUE: FINDINGS: There is pulmonary edema. Heart appears enlarged. There is blunting of the costophrenic ang les. There are chest leads. IMPRESSION: Congestive heart failure and pulmonary edema. Edema appears improved compared to exam ear lier today.
[2020-01-21 20:30] LABS: Allen Test Performed? Yes
[2020-01-21 20:38] LABS: ABG Base Excess -0.6 mmol/L; ABG HCO3 25 mmol/L (21-25); ABG Oxygen Saturation 92.6 % (94-97); ABG PCO2 45 mmHg (35-45); ABG PH 7.36 (7.35-7.45); ABG PO2 71 mmHg (83-108); ABG TCO2 26 mmol/L (19-24)
[2020-01-21] MEDS ORDERED: SUCCINYLCHOLINE CHLORIDE VIAL 200 MG/10 ML VIAL IV ONE (21:00)
[2020-01-21] MEDS ORDERED: PROPOFOL 10 MG/ML 20 ML VIAL IV ONE (21:00)
[2020-01-21] MEDS ORDERED: MIDAZOLAM 1 MG/ML 5 ML VIAL ONE (21:00)
[2020-01-21] MEDS ORDERED: REPAGLINIDE 1 MG TAB PO SCH (21:00)
--- NOTE | 2020-01-21 21:32 | XR ---
EXAMINATION TYPE: XR chest 1V DATE OF EXAM: 01/21/2020 COMPARISON: Today HISTORY: Check tube placement TECHNIQUE: Single view FINDINGS: Endotracheal tube is 2.5 cm from the sreedhar. There is pulmonary edema. There is coalescent infiltrate left lower lobe. Nasogastric tube is in the stomach. There are chest leads. IMPRESSION: Pulmonary edema and left lower lobe consolidation the same or slightly worse than exam th is morning. This is consistent with RDS and congestive heart failure.
[2020-01-21 22:00] LABS: Allen Test Performed? Yes
[2020-01-21 22:09] LABS: ABG Base Excess 1.5 mmol/L; ABG HCO3 26 mmol/L (21-25); ABG Oxygen Saturation 99.2 % (94-97); ABG PCO2 41 mmHg (35-45); ABG PH 7.41 (7.35-7.45); ABG PO2 165 mmHg (83-108); ABG TCO2 27 mmol/L (19-24)
[2020-01-22] MEDS ORDERED: IPRATROPIUM-ALBUTEROL 3 ML NEB INHALATION PRN (00:33)
[2020-01-22] MEDS ORDERED: NALOXONE 0.4 MG/ML 1 ML VIAL IV PRN (00:33)
[2020-01-22 01:51] LABS: Glucose,Whole Blood 230 mg/dL (75-99)
[2020-01-22] MEDS: HYDROCORTISONE SUCCINATE 100 MG/2 ML VIAL IV SCH ×2 (01:55→09:02)
[2020-01-22] MEDS: SODIUM CHLORIDE 0.9% 500 ML 500 ML IV SCH (01:55)
[2020-01-22] MEDS: INSULIN ASPART (NovoLOG) 100 UNIT/ML VIAL SQ SCH ×4 (02:10→18:04)
[2020-01-22] MEDS: PROPOFOL 1,000 MG in EMPTY BAG 1 BAG IV SCH ×6 (04:00→23:39)
[2020-01-22] MEDS: IPRATROPIUM-ALBUTEROL 3 ML NEB INHALATION SCH ×6 (04:48→23:02)
[2020-01-22] MEDS: hydrALAZINE HCL 25 MG TAB PO SCH ×3 (05:13→17:51)
[2020-01-22 05:28] LABS: Anisocytosis Slight; Basophils % (A) 0 %; Eosinophils % (A) 0 %; HCT 24.9 % (34.0-46.0); HGB 7.8 gm/dL (11.4-16.0); Lymphocytes # (A) 2.8 k/uL (1.0-4.8); Lymphocytes % (A) 21 %; MCH 31.1 pg (25.0-35.0); MCHC 31.4 g/dL (31.0-37.0); MCV 99.1 fL (80.0-100.0); Macrocytosis Slight; Mean Platelet Volume 7.3; Monocytes # (A) 0.5 k/uL (0-1.0); Monocytes % (A) 4 %; Neutrophils # (A) 10.3 k/uL (1.3-7.7); Neutrophils % (A) 75 %; Platelet Count 387 k/uL (150-450); RBC 2.51 m/uL (3.80-5.40); WBC 13.8 k/uL (3.8-10.6)
[2020-01-22 05:42] LABS: ABG Base Excess 4.6 mmol/L; ABG HCO3 28 mmol/L (21-25); ABG Oxygen Saturation 98.5 % (94-97); ABG PCO2 35 mmHg (35-45); ABG PH 7.51 (7.35-7.45); ABG PO2 109 mmHg (83-108); ABG TCO2 29 mmol/L (19-24); Allen Test Performed? Yes
[2020-01-22 05:44] LABS: African American GFR (CKD) 33 (>60 ml/min/1.73 sqM); Anion Gap 9 mmol/L; Blood Urea Nitrogen 47 mg/dL (7-17); Calcium 7.9 mg/dL (8.4-10.2); Carbon Dioxide 25 mmol/L (22-30); Chloride 103 mmol/L (98-107); Glucose 187 mg/dL (74-99); Non-African American GFR(CKD) 28 (>60 ml/min/1.73 sqM); Potassium 3.7 mmol/L (3.5-5.1); Sodium 137 mmol/L (137-145)
[2020-01-22] MEDS: FUROSEMIDE 10 MG/ML 4 ML VIAL IV SCH ×2 (05:58→18:04)
[2020-01-22 06:25] LABS: Glucose,Whole Blood 213 mg/dL (75-99)
[2020-01-22] MEDS ORDERED: POTASSIUM BICARBONATE/CIT AC 20 MEQ TABLET.EFF NG-TUBE ONE (07:00)
[2020-01-22 07:49] LABS: Reticulocyte % 4.33 % (0.10-1.80)
[2020-01-22] MEDS: ISOSORBIDE MONONITRATE ER 60 MG TAB.ER.24H PO SCH (08:53)
[2020-01-22] MEDS: HEPARIN SODIUM,PORCINE 5,000 UNIT/ML 1 ML VIAL SQ SCH ×2 (08:59→15:36)
[2020-01-22] MEDS ORDERED: ESCITALOPRAM 10 MG TAB PO SCH (09:00)
[2020-01-22] MEDS: CLOPIDOGREL 75 MG TAB PO SCH (09:00)
[2020-01-22] MEDS: FAMOTIDINE 20 MG TAB PO SCH (09:00)
[2020-01-22] MEDS: ATORVASTATIN 10 MG TAB PO SCH (09:00)
[2020-01-22] MEDS: ASPIRIN 81 MG PO SCH (09:00)
[2020-01-22] MEDS ORDERED: LINAGLIPTIN 5 MG TABLET PO SCH (09:00)
[2020-01-22] MEDS: PANTOPRAZOLE 40 MG/10 ML VIAL IV SCH (09:00)
[2020-01-22] MEDS: METOPROLOL TARTRATE 25 MG TAB PO SCH ×2 (09:01→21:11)
--- NOTE | 2020-01-22 09:17 | P.PN ---
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 The patient came into the hospital because of worsening shortness of breath. Her chest x-ray shows cardiomegaly and pulmonary edema and possibly some bilateral pleural effusion. Her shortness of breath developed 4 days ago and progressively got worse. She also had some increased cough and congestion either to bring up much sputum. No fever or chills. The influenza screen was negative. ProBNP level was 71,000. Troponin peaked at 1.4. Her serum lactate was at one 0.8. Creatinine is at 1.5 with a white second of 13.7 and a hemoglobin of 8.4. EKG showing a normal sinus rhythm. She weighs over the inferior leads and inferior leads suggestive of sepsis/inferior infarct. No ST segment elevation or depression. Currently, the patient is on BiPAP for respiratory support at a pressure of 12/6 with an FiO2 of 60%. The patient is also receiving IV Lasix 40 mg every 12 hours. On today's evaluation of 01/22/2020 the patient is in the intensive care unit. Note that overnight the patient's sister status decompensated. She failed BiPAP therapy. She became progressively more tachypneic and unresponsive. She was moved to the intensive care unit where she was intubated and she was placed on a mechanical ventilator. This morning she assist-control mode at the rate of 20 with a tidal volume of 450 and FiO2 of 80% and a PEEP of 5. The blood gases from today showed a pH of 7.51 with a pCO2 of 35 and pO2 of 109. The patient has no significant orotracheal secretions. The chest x-ray from today showing pulmonary edema with bilateral pleural effusions. Urine output is in order of 30-40 mL an hour. The patient is currently on norepinephrine infusion which is running at 0.1 g per KG per minute. The patient has no fever. The patient is in sinus rhythm. A repeat echocardiogram was done today. Creatinine is stable at 1.6. No significant leukocytosis. Note that, I talked to the family again. Based on the reported formation, the patient had his AV of vancomycin-induced skin rash with some skin sloughing approximately 2 months ago for which she was hospitalized in early hospital and she was treated and she was discharged home. She has stage II small 3 wounds on her coccyx. No other significant events overnight. She is was sedated with propofol which is running at 50 g per KG per minute. Objective - Vital Signs Vital signs: Vital Signs Temp 97.5 F L 01/22/20 08:00 Pulse 77 01/22/20 09:00 Resp 20 01/22/20 09:00 BP 113/52 01/22/20 09:00 Pulse Ox 100 01/22/20 09:00 Intake & Output 01/21/20 01/22/20 01/22/20 18:59 06:59 18:59 Intake Total 96.128 468.362 130 Output Total 450 172 120 Balance -353.872 296.362 10 Weight 96.5 kg Intake: IV 30 30 0.9 30 Invasive Line 1 30 Intake, IV Titration 6.128 468.362 100 Amount Norepinephrine 4 mg In 6.128 248.362 Sodium Chloride 0.9% 250 ml @ 0.05 MCG/KG/MIN 18. 383 mls/hr IV .[id number] [facility] Rx#:[id number] Propofol 1,000 mg In 100 100 Empty Bag 1 bag @ Titrate IV .Q0M [facility] Rx#: [id number] Sodium Chloride 0.9% 500 120 ml 500 ml @ 20 mls/hr IV .Q24H [facility] Rx#:[id number] Oral 60 Output: Urine 450 172 120 Uretheral (Sunshine) 450 Other: Voiding Method Incontinent Indwelling Catheter - Exam Intubated on mechanical ventilator. Orogastric and orotracheal tube are both in place and the patient is well sedated. Head exam was generally normal. There was no scleral icterus or corneal arcus. Mucous membranes were moist. Neck was supple and without jugular venous distension, thyromegaly, or carotid bruits. Carotids were easily palpable bilaterally. There was no adenopathy. Lungs sounds are diminished bilaterally along with crackles in the lung bases. Heart sounds are irregular, this systolic ejection murmur grade 4/6 heard throughout the precordium mainly in the apex and radiating to the neck bilaterally. Abdominal exam revealed normal bowel sounds. The abdomen was soft, non-tender, and without masses, organomegaly, or appreciable enlargement of the abdominal aorta. Examination of the extremities revealed easily palpable radial, femoral and pedal pulses. There was no cyanosis, clubbing or edema. Examination of the skin shows 3 stage II sacral decub ulcerations. Neurologically the patient has been sedated and she is calm and comfortable. No focal neurological deficits. She withdraws to painful stimulation. - Labs CBC & Chem 7: 01/22/20 04:58 01/22/20 04:58 Labs: Abnormal Lab Results - Last 24 Hours (Table) 01/21/20 01/21/20 01/21/20 Range/Units 10:11 10:11 12:29 WBC (3.8-10.6) k/uL RBC (3.80-5.40) m/uL Hgb (11.4-16.0) gm/dL Hct (34.0-46.0) % RDW (11.5-15.5) % Neutrophils # (1.3-7.7) k/uL Retic Count 4.33 H (0.10-1.80) % ABG pH (7.35-7.45) ABG pO2 (83-108) mmHg ABG HCO3 (21-25) mmol/L ABG Total CO2 (19-24) mmol/L ABG O2 Saturation (94-97) % BUN (7-17) mg/dL Creatinine (0.52-1.04) mg/dL Glucose (74-99) mg/dL POC Glucose (mg/dL) 165 H (75-99) mg/dL Calcium (8.4-10.2) mg/dL Troponin I 1.440 H* (0.000-0.034) ng/mL Ur Leukocyte Esterase (Negative) Urine WBC (0-5) /hpf Urine Bacteria (None) /hpf Hyaline Casts (0-2) /lpf Urine Mucus (None) /hpf 01/21/20 01/21/20 01/21/20 Range/Units 14:10 16:43 17:10 WBC (3.8-10.6) k/uL RBC (3.80-5.40) m/uL Hgb (11.4-16.0) gm/dL Hct (34.0-46.0) % RDW (11.5-15.5) % Neutrophils # (1.3-7.7) k/uL Retic Count (0.10-1.80) % ABG pH (7.35-7.45) ABG pO2 (83-108) mmHg ABG HCO3 (21-25) mmol/L ABG Total CO2 (19-24) mmol/L ABG O2 Saturation (94-97) % BUN (7-17) mg/dL Creatinine (0.52-1.04) mg/dL Glucose (74-99) mg/dL POC Glucose (mg/dL) 135 H (75-99) mg/dL Calcium (8.4-10.2) mg/dL Troponin I 1.240 H* (0.000-0.034) ng/mL Ur Leukocyte Esterase Large H (Negative) Urine WBC 30 H (0-5) /hpf Urine Bacteria Rare H (None) /hpf Hyaline Casts 11 H (0-2) /lpf Urine Mucus Rare H (None) /hpf 01/21/20 01/21/20 01/22/20 Range/Units 20:35 21:53 01:49 WBC (3.8-10.6) k/uL RBC (3.80-5.40) m/uL Hgb (11.4-16.0) gm/dL Hct (34.0-46.0) % RDW (11.5-15.5) % Neutrophils # (1.3-7.7) k/uL Retic Count (0.10-1.80) % ABG pH (7.35-7.45) ABG pO2 71 L 165 H (83-108) mmHg ABG HCO3 26 H (21-25) mmol/L ABG Total CO2 26 H 27 H (19-24) mmol/L ABG O2 Saturation 92.6 L 99.2 H (94-97) % BUN (7-17) mg/dL Creatinine (0.52-1.04) mg/dL Glucose (74-99) mg/dL POC Glucose (mg/dL) 230 H (75-99) mg/dL Calcium (8.4-10.2) mg/dL Troponin I (0.000-0.034) ng/mL Ur Leukocyte Esterase (Negative) Urine WBC (0-5) /hpf Urine Bacteria (None) /hpf Hyaline Casts (0-2) /lpf Urine Mucus (None) /hpf 01/22/20 01/22/20 01/22/20 Range/Units 04:58 04:58 05:37 WBC 13.8 H (3.8-10.6) k/uL RBC 2.51 L (3.80-5.40) m/uL Hgb 7.8 L (11.4-16.0) gm/dL Hct 24.9 L (34.0-46.0) % RDW 17.0 H (11.5-15.5) % Neutrophils # 10.3 H (1.3-7.7) k/uL Retic Count (0.10-1.80) % ABG pH 7.51 H (7.35-7.45) ABG pO2 109 H (83-108) mmHg ABG HCO3 28 H (21-25) mmol/L ABG Total CO2 29 H (19-24) mmol/L ABG O2 Saturation 98.5 H (94-97) % BUN 47 H (7-17) mg/dL Creatinine 1.62 H (0.52-1.04) mg/dL Glucose 187 H (74-99) mg/dL POC Glucose (mg/dL) (75-99) mg/dL Calcium 7.9 L (8.4-10.2) mg/dL Troponin I (0.000-0.034) ng/mL Ur Leukocyte Esterase (Negative) Urine WBC (0-5) /hpf Urine Bacteria (None) /hpf Hyaline Casts (0-2) /lpf Urine Mucus (None) /hpf 01/22/20 Range/Units 06:23 WBC (3.8-10.6) k/uL RBC (3.80-5.40) m/uL Hgb (11.4-16.0) gm/dL Hct (34.0-46.0) % RDW (11.5-15.5) % Neutrophils # (1.3-7.7) k/uL Retic Count (0.10-1.80) % ABG pH (7.35-7.45) ABG pO2 (83-108) mmHg ABG HCO3 (21-25) mmol/L ABG Total CO2 (19-24) mmol/L ABG O2 Saturation (94-97) % BUN (7-17) mg/dL Creatinine (0.52-1.04) mg/dL Glucose (74-99) mg/dL POC Glucose (mg/dL) 213 H (75-99) mg/dL Calcium (8.4-10.2) mg/dL Troponin I (0.000-0.034) ng/mL Ur Leukocyte Esterase (Negative) Urine WBC (0-5) /hpf Urine Bacteria (None) /hpf Hyaline Casts (0-2) /lpf Urine Mucus (None) /hpf Microbiology - Last 24 Hours (Table) 01/21/20 01:58 Blood Culture - Preliminary Blood No Growth after 24 hours 01/21/20 14:10 Urine Culture - Preliminary Urine,Clean Catch Assessment and Plan Plan: 1 acute hypoxic respiratory failure secondary to acute CHF exacerbation with a component of pulmonary edema and bilateral pleural effusions. The patient was initially treated with BiPAP and the patient failed BiPAP and subsequently she was intubated and placed on a mechanical ventilator. She is currently being oxygenated and ventilated well. In fact she has a mild component of respiratory alkalosis. She is on IV Lasix. She is hypotensive and currently she is receiving norepinephrine infusion at the rate of 0.1 g per KG per minute. Repeat echocardiogram was done. 2 acute non-ST segment elevation myocardial infarction with elevated troponins modest troponin peaked at 1.2 3 multivessel coronary artery disease with previous stenting of the LAD and subsequent stenting of the left main that was done in March 2019 with the use of a Impella device. The patient has segmental wall motion abnormalities. The underlying ejection fraction is no other of 35%. 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 The EGD that was done showed mild gastritis without evidence of an acute bleeding. The patient colonoscopy that showed no evidence of any acute bleeding and the patient had pandiverticulosis. 16 acute hypoxic respiratory failure intubated on a mechanical ventilator. 17 stage II sacral decubitus ulceration. Plan Continue vent support Drop the tidal volume to 400 Continued IV Lasix Continue pressors for hemodynamic support This continued IV hydrocortisone Repeat echocardiogram Continue with diuresis and support the patient with norepinephrine infusion for blood pressure support Obtain sputum Gram stain and culture Triple-lumen catheter monitor CVP Wound care will continue to follow. Condition is critical and this evaluation was done and more than 30 minutes. Time with Patient: Greater than 30
[2020-01-22] MEDS: CISATRACURIUM 2 MG/ML 5 ML VIAL IV ONE (09:24)
--- NOTE | 2020-01-22 09:32 | P.PCN ---
Date of Procedure: 01/22/20 Preoperative Diagnosis: Acute hypoxic respiratory failure/pulmonary edema Postoperative Diagnosis: Acute hypoxic respiratory failure/pulmonary edema Procedure(s) Performed: Triple-lumen catheter insertion Anesthesia: local Surgeon: Varinder Samano Estimated Blood Loss (ml): 0 Pathology: other Condition: stable Disposition: ICU Operative Findings: Indication: Hemodynamic monitoring/Intravenous access. A time-out was completed verifying correct patient, procedure, site, posi tioning, and implant(s) or special equipment if applicable. The patient was placed in a dependent position appropriate for central line placement based on the vein to be cannulated. The patient left shoulder was prepped and draped in sterile fashion. 1% Lidocaine was used to anesthetize the surrounding skin area. A triple lumen 9F Cordis catheter was introduced into the left subclavian vein using Seldinger technique. The catheter was threaded smoothly over the guide wire and appropriate blood return was obtained. Each lumen of the catheter was evacuated of air and flushed with sterile saline. The catheter was then sutured in place to the skin and a sterile dressing applied. Perfusion to the extremity distal to the point of catheter insertion was checked and found to be adequate. The patient tolerated the procedure well and there were no complications.
--- NOTE | 2020-01-22 09:37 | PN ---
PROGRESS NOTE Mrs. Mcclain is an 89-year-old female with known history of coronary artery disease, status post percutaneous revascularization of her LAD and left main, history of aortic and mitral valve disease, who presented with symptoms of progressive dyspnea and evidence of congestive heart failure yesterday, in the evening became more dyspneic, requiring transfer to the ICU and mechanical ventilation. She is intubated and sedated at this time. Hemodynamically, she is on low-dose norepinephrine. Her urine output is low. There is no evidence of malignant arrhythmia. PHYSICAL EXAMINATION: Blood pressure is 110/40 with a heart in 70 lungs was decreased air exchange anteriorly, but no wheezes. HEART: Regular rhythm S1, S2. No S3 with systolic murmur ejection type heard at the base no diastolic murmur. ABDOMEN: Soft. Positive bowel sounds extremities no significant edema. LAB DATA: Lab data revealed a hemoglobin of 7.8, white blood cells 13.8 BUN creatinine of 47 and 1.62, which has worsened compared to yesterday. Her chest x-ray shows evidence of fluid overload. IMPRESSION: 1. Respiratory failure related to fluid overload and congestive heart failure. 2. History of coronary artery disease, status post percutaneous revascularization, left main and LAD. 3. History of aortic valve disease. 4. Worsening renal function. 5. History of cardiomyopathy. 6. History of diabetes. 7. History of vascular dementia. RECOMMENDATION: I have discussed the findings with the family in detail. I have discussed with them the very guarded prognosis at this time, especially with the worsening renal function and the low urine output. Will await the no nephrology input. Follow her renal function. The prognosis remains quite poor. MMODL / IJN: [id number] /
[2020-01-22] MEDS: NOREPINEPHRINE 4 MG in SODIUM CHLORIDE 0.9% 250 ML IV SCH ×2 (09:44→21:13)
[2020-01-22 09:49] LABS: % Iron Saturation 16.43 (12.00-45.00)
--- NOTE | 2020-01-22 09:56 | XR ---
EXAMINATION TYPE: XR chest 1V DATE OF EXAM: 01/22/2020 COMPARISON: Prior chest x-ray 01/21/2020 HISTORY: Intubated, congestive heart failure TECHNIQUE: Single frontal view of the chest is obtained. FINDINGS: Endotracheal tube, NG tube are overlying appropriate positions, postop change noted to the cervical spine. Aorta is dense. There are overlying cardiac leads. Bilateral airspace disease persis ts, the hemidiaphragms are obscured. Heart size is stable. No evident pneumothorax. IMPRESSION: Findings consistent with congestive heart failure. There may be basilar effusions. Pneum onia not excluded.
[2020-01-22 09:57] LABS: Ferritin 242.7 ng/mL (10.0-291.0)
--- NOTE | 2020-01-22 10:14 | ECHOF ---
Referral Reason:Heart Failure MEASUREMENTS -------- HEIGHT: 162.6 cm WEIGHT: 96.2 kg BP: 110/40 IVSd: 1.4 cm (0.6 - 1.1) LVIDd: 3.8 cm (3.9 - 5.3) LVPWd: 1.6 cm (0.6 - 1.1) IVSs: 1.9 cm LVIDs: 2.6 cm LVPWs: 1.9 cm LAESV Index (A-L): 31.77 ml/m Ao Diam: 2.4 cm (2.0 - 3.7) AV Cusp: 1.0 cm (1.5 - 2.6) LA Diam: 3.9 cm (2.7 - 3.8) MV EXCURSION: 12.842 mm (> 18.000) MV EF SLOPE: 48 mm/s (70 - 150) EPSS: 1.3 cm AV maxP.23 mmHg AV meanP.15 mmHg AR PHT: 254 ms RAP: 5.00 mmHg RVSP: 24.56 mmHg FINDINGS -------- Sinus rhythm. This was a technically difficult study with suboptimal views. Pt. on a vent. The left ventricular size is normal. There is moderate concentric left ventricular hypertrophy. O verall left ventricular systolic function is moderately impaired with, an EF between 35 - 40 %. Api jadyn septum LV wall motion is hypokinetic. Inferiorlateral Hypokinesis The right ventricle is normal in size. LA is moderately dilated 34-39 ml/m2 The right atrial size is normal. Lumason used Aortic valve is trileaflet and is moderately thickened. There is mild aortic regurgitation. There is pgsxepzr-rj-ahxuqt aortic stenosis present. Peak/mean gradient across the Aortic Valve is 51.23 mmHg / 36.15mmHg. The mitral valve is normal. The mitral valve leaflets are mildly thickened. Pxtpvfgd-[id number] mi tral regurgitation is present. The tricuspid valve appears structurally normal. Mild tricuspid regurgitation present. Right vent ricular systolic pressure is normal at < 35 mmHg. There is no pulmonic regurgitation present. The aortic root size is normal. IVC Not well visulized. There is no pericardial effusion. CONCLUSIONS -------- 1. Sinus rhythm. 2. This was a technically difficult study with suboptimal views. 3. Pt. on a vent. 4. The left ventricular size is normal. 5. There is moderate concentric left ventricular hypertrophy. 6. Overall left ventricular systolic function is moderately impaired with, an EF between 35 - 40 %. 7. Apical septum LV wall motion is hypokinetic. 8. Inferiorlateral Hypokinesis 9. The right ventricle is normal in size. 10. LA is moderately dilated 34-39 ml/m2 11. The right atrial size is normal. 12. Lumason used 13. Aortic valve is trileaflet and is moderately thickened. 14. There is mild aortic regurgitation. 15. There is alylxvex-zq-yjnqsj aortic stenosis present. 16. Peak/mean gradient across the Aortic Valve is 51.23mmHg / 36.15mmHg. 17. The mitral valve is normal. 18. The mitral valve leaflets are mildly thickened. 19. Ufimmzkk-fh-jinjcq mitral regurgitation is present. 20. The tricuspid valve appears structurally normal. 21. Mild tricuspid regurgitation present. 22. Right ventricular systolic pressure is normal at < 35 mmHg. 23. There is no pulmonic regurgitation present. 24. The aortic root size is normal. 25. IVC Not well visulized. 26. There is no pericardial effusion. RISK CONTROL MANAGER: Paola Gonzales RDCS
--- NOTE | 2020-01-22 10:33 | XR ---
EXAMINATION TYPE: XR chest 1V portable DATE OF EXAM: 01/22/2020 COMPARISON: Prior chest x-ray 01/22/2020 and earlier time HISTORY: Status post central venous catheter placement TECHNIQUE: Single frontal view of the chest is obtained. FINDINGS: Interval placement of left subclavian central venous catheter, distal tip is overlying the cavoatrial junction. No evident pneumothorax or other significant interval change. IMPRESSION: No evident complication status post central venous catheter placement.
[2020-01-22 11:48] LABS: Glucose,Whole Blood 238 mg/dL (75-99)
[2020-01-22] MEDS: PIPERACILLIN-TAZOBACTAM 3.375 GM in SODIUM CHLORIDE 0.9% 100 ML IVPB SCH ×2 (12:08→21:12)
--- NOTE | 2020-01-22 13:33 | P.PN ---
Subjective Progress Note Date: 01/22/20 This is an 89-year-old female patient of Dr. Sales with known medical history of chronic systolic heart failure and ischemic cardiomyopathy with known ejection fraction 35-40%, severe mitral regurgitation, moderate aortic stenosis, hypertension, chronic kidney disease stage III, type 2 diabetes, Alzheimer's dementia, coronary artery disease status post PCI to the left main and LAD in 2018, hypertension, hyperlipidemia, recurrent depression. Patient is currently living at home with her daughter. She was recently at [facility] for subacute rehab. 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 After patient was discharged to [place], she went to [facility] had increased edema to the arms and legs for which Lasix was on a 20 g twice daily. This was eventually decreased to every day. She was also on Nepro supplement. Patient has had increasing shortness of breath. She was utilizing 1-1-1/2 L of oxygen at home and normally pulse oxing 90-96%. Daughter gradually increase this until she was up to 5 L of oxygen yesterday and then called EMS. Patient normally is ambulatory with a walker with assistance. She needs help with feeding. Patient has been under increased stress especially the last 3 days as a daughter on December 24. At the time of this evaluation, patient is on BiPAP. She is able to answer some simple questions, most of the history is obtained from the patient's daughter. Patient was brought into [facility] emergency center for evaluation. WBC 13.7, hemoglobin 8.4, platelets 436, sodium 134, potassium 4.1, creatinine 1.56 with a GFR of 30, lactic acid on admission 4. 5 repeat 1.8, magnesium 2.4, troponin 0.921 and repeat 1.440, and NT proBNP 71,100, TSH 2.570. EKG sinus rhythm with ST depression in anterior lateral leads, chronic when compared to old EKGs. Patient has been afebrile, heart rate 69, respiratory rate 26, pulse ox 92% on BiPAP, blood pressure 131/68. Chest x-ray shows congestive heart failure pulmonary edema compared to old exam. Pleural effusions new. Patient has been admitted to the cardiac stepdown unit and consults with pulmonary medicine and cardiology. 01/21: Yesterday afternoon, patient developed increasing shortness of breath while on BiPAP 60% FiO2. Pulse ox dropped down 88%. Chest x-ray was ordered which revealed congestive heart failure pulmonary edema. Edema appears improved comp ared to exam earlier today. Patient was given IV Lasix 40 mg and Xanax and Sunshine catheter was placed. Nursing clarified CODE STATUS is full code. Patient was moved into intensive care unit and intubated and placed on mechanical ventilation. Patient remains intubated and on mechanical ventilation with tidal volume 400, FiO2 50, PEEP 5. OG tube in place with bile/brown return. Patient has been afebrile, heart rate 75, blood pressure 118/47. Repeat blood work reveals WBC 13.8, hemoglobin 7.8, electrolytes within normal limits. BUN 47 creatinine 1.62, blood glucose running between 187 and 230. Cortisol level greater than 123 and hydrocortisone discontinued. Blood culture reveals no growth at 24 hours. Urine culture in progress. Zosyn was added for prophylaxis by Dr. Samano, no clear pneumonia. Echocardiogram reveals EF 35-40%, mild aortic regurgitation, moderate to severe aortic stenosis, moderate to severe mitral regurgitation, mild tricuspid regurgitation. Objective - Vital Signs Vital signs: Vital Signs Temp 97.5 F L 01/22/20 08:00 Pulse 77 01/22/20 09:00 Resp 20 01/22/20 09:00 BP 113/52 01/22/20 09:00 Pulse Ox 100 01/22/20 09:00 Intake & Output 01/21/20 01/22/20 01/22/20 18:59 06:59 18:59 Intake Total 96.128 721.872 130 Output Total 450 172 120 Balance -353.872 549.872 10 Weight 96.5 kg Intake: IV 30 30 0.9 30 Invasive Line 1 30 Intake, IV Titration 6.128 721.872 100 Amount Norepinephrine 4 mg In 6.128 501.872 Sodium Chloride 0.9% 250 ml @ 0.05 MCG/KG/MIN 18. 383 mls/hr IV .[id number] [facility] Rx#:[id number] Propofol 1,000 mg In 100 100 Empty Bag 1 bag @ Titrate IV .Q0M [facility] Rx#: [id number] Sodium Chloride 0.9% 500 120 ml 500 ml @ 20 mls/hr IV .Q24H [facility] Rx#:[id number] Oral 60 Output: Urine 450 172 120 Uretheral (Sunshine) 450 Other: Voiding Method Incontinent Indwelling Catheter - Exam Review of Systems unable to obtain due to intubation Gen: This is an 89-year-old female. Patient is lying in ICU bed. She is intubated and on mechanical ventilation. Patient appears to be in no acute distress.. HEENT: Head is atraumatic, normocephalic. Pupils equal, round. Sclerae is anicteric. Oral mucous membranes are moist. ET and gastric tube in place orally. NECK: Supple. No JVD. No lymphadenopathy. No thyromegaly. LUNGS: Diminished in the bases. No intercostal retractions. HEART: Regular rate and rhythm. Systolic murmur. ABDOMEN: Soft. Bowel sounds are present. No masses. No tenderness. EXTREMITIES: Trace bilateral lower extremity and upper extremity edema. No calf tenderness. Dorsalis pedis +2 bilaterally. NEUROLOGICAL: Patient is sedated - Labs CBC & Chem 7: 01/22/20 04:58 01/22/20 04:58 Labs: Abnormal Lab Results - Last 24 Hours (Table) 01/21/20 01/21/20 01/21/20 Range/Units 10:11 10:11 10:11 WBC (3.8-10.6) k/uL RBC (3.80-5.40) m/uL Hgb (11.4-16.0) gm/dL Hct (34.0-46.0) % RDW (11.5-15.5) % Neutrophils # (1.3-7.7) k/uL Retic Count 4.33 H (0.10-1.80) % ABG pH (7.35-7.45) ABG pO2 (83-108) mmHg ABG HCO3 (21-25) mmol/L ABG Total CO2 (19-24) mmol/L ABG O2 Saturation (94-97) % BUN (7-17) mg/dL Creatinine (0.52-1.04) mg/dL Glucose (74-99) mg/dL POC Glucose (mg/dL) (75-99) mg/dL Calcium (8.4-10.2) mg/dL Iron 35 L (50-170) ug/dL TIBC 213 L (228-460) ug/dL Troponin I 1.440 H* (0.000-0.034) ng/mL Ur Leukocyte Esterase (Negative) Urine WBC (0-5) /hpf Urine Bacteria (None) /hpf Hyaline Casts (0-2) /lpf Urine Mucus (None) /hpf 01/21/20 01/21/20 01/21/20 Range/Units 12:29 14:10 16:43 WBC (3.8-10.6) k/uL RBC (3.80-5.40) m/uL Hgb (11.4-16.0) gm/dL Hct (34.0-46.0) % RDW (11.5-15.5) % Neutrophils # (1.3-7.7) k/uL Retic Count (0.10-1.80) % ABG pH (7.35-7.45) ABG pO2 (83-108) mmHg ABG HCO3 (21-25) mmol/L ABG Total CO2 (19-24) mmol/L ABG O2 Saturation (94-97) % BUN (7-17) mg/dL Creatinine (0.52-1.04) mg/dL Glucose (74-99) mg/dL POC Glucose (mg/dL) 165 H (75-99) mg/dL Calcium (8.4-10.2) mg/dL Iron (50-170) ug/dL TIBC (228-460) ug/dL Troponin I 1.240 H* (0.000-0.034) ng/mL Ur Leukocyte Esterase Large H (Negative) Urine WBC 30 H (0-5) /hpf Urine Bacteria Rare H (None) /hpf Hyaline Casts 11 H (0-2) /lpf Urine Mucus Rare H (None) /hpf 01/21/20 01/21/20 01/21/20 Range/Units 17:10 20:35 21:53 WBC (3.8-10.6) k/uL RBC (3.80-5.40) m/uL Hgb (11.4-16.0) gm/dL Hct (34.0-46.0) % RDW (11.5-15.5) % Neutrophils # (1.3-7.7) k/uL Retic Count (0.10-1.80) % ABG pH (7.35-7.45) ABG pO2 71 L 165 H (83-108) mmHg ABG HCO3 26 H (21-25) mmol/L ABG Total CO2 26 H 27 H (19-24) mmol/L ABG O2 Saturation 92.6 L 99.2 H (94-97) % BUN (7-17) mg/dL Creatinine (0.52-1.04) mg/dL Glucose (74-99) mg/dL POC Glucose (mg/dL) 135 H (75-99) mg/dL Calcium (8.4-10.2) mg/dL Iron (50-170) ug/dL TIBC (228-460) ug/dL Troponin I (0.000-0.034) ng/mL Ur Leukocyte Esterase (Negative) Urine WBC (0-5) /hpf Urine Bacteria (None) /hpf Hyaline Casts (0-2) /lpf Urine Mucus (None) /hpf 01/22/20 01/22/20 01/22/20 Range/Units 01:49 04:58 04:58 WBC 13.8 H (3.8-10.6) k/uL RBC 2.51 L (3.80-5.40) m/uL Hgb 7.8 L (11.4-16.0) gm/dL Hct 24.9 L (34.0-46.0) % RDW 17.0 H (11.5-15.5) % Neutrophils # 10.3 H (1.3-7.7) k/uL Retic Count (0.10-1.80) % ABG pH (7.35-7.45) ABG pO2 (83-108) mmHg ABG HCO3 (21-25) mmol/L ABG Total CO2 (19-24) mmol/L ABG O2 Saturation (94-97) % BUN 47 H (7-17) mg/dL Creatinine 1.62 H (0.52-1.04) mg/dL Glucose 187 H (74-99) mg/dL POC Glucose (mg/dL) 230 H (75-99) mg/dL Calcium 7.9 L (8.4-10.2) mg/dL Iron (50-170) ug/dL TIBC (228-460) ug/dL Troponin I (0.000-0.034) ng/mL Ur Leukocyte Esterase (Negative) Urine WBC (0-5) /hpf Urine Bacteria (None) /hpf Hyaline Casts (0-2) /lpf Urine Mucus (None) /hpf 01/22/20 01/22/20 Range/Units 05:37 06:23 WBC (3.8-10.6) k/uL RBC (3.80-5.40) m/uL Hgb (11.4-16.0) gm/dL Hct (34.0-46.0) % RDW (11.5-15.5) % Neutrophils # (1.3-7.7) k/uL Retic Count (0.10-1.80) % ABG pH 7.51 H (7.35-7.45) ABG pO2 109 H (83-108) mmHg ABG HCO3 28 H (21-25) mmol/L ABG Total CO2 29 H (19-24) mmol/L ABG O2 Saturation 98.5 H (94-97) % BUN (7-17) mg/dL Creatinine (0.52-1.04) mg/dL Glucose (74-99) mg/dL POC Glucose (mg/dL) 213 H (75-99) mg/dL Calcium (8.4-10.2) mg/dL Iron (50-170) ug/dL TIBC (228-460) ug/dL Troponin I (0.000-0.034) ng/mL Ur Leukocyte Esterase (Negative) Urine WBC (0-5) /hpf Urine Bacteria (None) /hpf Hyaline Casts (0-2) /lpf Urine Mucus (None) /hpf Microbiology - Last 24 Hours (Table) 01/21/20 01:58 Blood Culture - Preliminary Blood No Growth after 24 hours 01/21/20 14:10 Urine Culture - Preliminary Urine,Clean Catch Assessment and Plan Plan: 1. Acute hypoxic respiratory failure secondary to acute on chronic systolic heart failure, POA with severe hypotension requiring vasopressors. Consult with cardiology appreciated. Pulmonary medicine also on consult. Patient is now intubated and on mechanical ventilation. Continue Lasix 40 mg IV twice daily, monitor I&O and daily weights, monitor renal function and electrolytes. Echocardiogram as above. Zosyn added for now. No sign of pneumonia. 2. Acute non-ST elevated myocardial infarction. Cardiology is on consult. 3. History of coronary artery disease status post PCI of the left main in March 2019. Continue aspirin 81 mg daily, Lipitor 10 mg daily, Plavix 75 mg daily, Imdur 60 mg daily, Lopressor 25 mg twice daily. 4. Ischemic cardiomyopathy. Continue as in #1. 5. Hypertension. Continue Lasix, hydralazine 25 mg 3 times daily, Imdur. Hold Norvasc. 6. Hyperlipidemia. Continue statin 7. Diabetes mellitus type 2. Continue NovoLog scale before meals and at bedtime, Prandin 0.5 mg twice daily, Tradjenta 5 mg daily. 8. Alzheimer's dementia. Hold galantamine. 9. Acute kidney injury with chronic kidney disease stage II. Patient has been oliguric overnight, improved this morning after IV Lasix 10. Recurrent depression. Continue Lexapro 10 mg daily. 11. Valvular heart disease with moderate to severe aortic stenosis and severe mitral regurgitation, mild tricuspid regurgitation. 12. Anemia with history of acute blood loss GI bleed anemia that had recovered in November and December with hemoglobin of 13.6. Iron studies, stool for occult blood. Discharge plan: To be determined. PT and OT will be added once patient stabiliz es. Impression and plan of care have been directed as dictated by the signing physician. Donita Padron nurse practitioner acting as scribe for signing physician.
[2020-01-22] MEDS ORDERED: SODIUM FERRIC GLUCONAT-SUCROSE 125 MG in SODIUM CHLORIDE 0.9% 100 ML IVPB ONE (15:00)
--- NOTE | 2020-01-22 15:55 | CONS ---
CONSULTATION REASON FOR CONSULTATION: Renal failure. HISTORY OF PRESENT ILLNESS: Patient is an 89-year-old female who was admitted to the hospital with complaints of shortness of breath. She was initially on BiPAP and then transferred to the ICU and was eventually intubated. The patient is currently being diuresed. She is maintained on Lasix 40 mg IV q.12 hours. Serum creatinine was 1.56 mg/dL yesterday, it is at 1.62 today. Previous creatinine was 1.5 on 12/13/2019 and a creatinine of 0.9 on 10/21/2019. There is a no history of fever, nausea, vomiting or diarrhea. 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 PAST SURGICAL HISTORY: Appendectomy, back surgery, cholecystectomy, cardiac catheterization, cervical surgery, right carpal tunnel release, colonoscopy. SOCIAL HISTORY: Patient is a former smoker. No history of drug abuse or alcohol abuse. MEDICATIONS: Medications at home prior to admission included aspirin, Lexapro, Zofran, Tradjenta, Drisdol, Lasix, Plavix, Celebrex, Lipitor, Pepcid, Imdur, Lopressor, Nitrostat, Prandin, Norvasc, hydralazine. ALLERGIES: Include ALEVE, NORCO, AND AMARYL. Aleve causes itching and rash. [place] causes rash. Amaryl causes nausea and vomiting. REVIEW OF SYSTEMS: As per HPI. Other systems negative. PHYSICAL EXAMINATION: On examination, patient is comfortable, she is sedated, she is on the vent. Blood pressure is 116/47, heart rate 77 per minute. She is afebrile. Examination of the heart S1, S2. Examination of the lungs, bilateral breath sounds are heard. Abdomen is soft, nontender. Examination of lower extremities shows edema 1+ bilaterally. [employer] exam cannot be performed. LAB: Show sodium 137, potassium 3.7, chloride 103, CO2 is 25, BUN 47, creatinine 1.62, hemoglobin 7.8 g/dL. ASSESSMENT: 1. Acute kidney injury, cardiorenal, currently nonoliguric. Continue with IV Lasix. No nephrotoxic agents on board. There is an element of ischemic acute tubular necrosis as well from hypotension. 2. Chronic kidney disease stage 3, with baseline creatinine 0.9 as of October of 2019 secondary to nephrosclerosis. 3. Volume overload, currently being diuresed. 4. Congestive heart failure exacerbation, acute on top of chronic, mainly systolic. Ejection fraction is currently at 35-40% on current echocardiogram. 5. Anemia, no active bleeding noted. PLAN: Check iron studies. Continue with current dose of Lasix. The iron saturation was low at 16%. I will give her a dose of IV iron. Thank you for this consultation. We will continue to follow the patient with you during her hospitalization. MMODL / IJN: [id number] /
--- NOTE | 2020-01-22 17:45 | CT ---
EXAMINATION TYPE: CT chest wo con DATE OF EXAM: 01/22/2020 COMPARISON: CTA chest December 03, 2017. Chest x-ray earlier today an older x-rays. HISTORY: FLUID OVERLOAD CT DLP: 542.5 mGycm. Automated Exposure Control for Dose Reduction was Utilized. TECHNIQUE: CT scan of the thorax is performed without IV contrast. FINDINGS: LUNGS: There are [id number] sized bilateral pleural effusions with associated compressive atel ectasis. Central groundglass opacity is seen bilaterally slightly more prominent in the left lung shaila beto right lung likely reflecting alveolar edema, underlying infiltrates less likely but not excluded. Respiratory motion artifact degradation. No pneumothorax bilaterally. MEDIASTINUM: Lack of IV contrast is noted to limit evaluation for mediastinal and especially hilar ad enopathy. There is stable prominent borderline enlarged pericarinal lymph node seen best axial image 24. No new definitive greater than 1 cm adenopathy. No cardiomegaly or pericardial effusion is seen. Severe three-vessel coronary artery calcification and/or stents. There is nasogastric tube decompress ing stomach below diaphragm. There is endotracheal tube terminating above the sreedhar at inferior fadi in aortic knob. OTHER: S-shaped scoliosis with multilevel spurring. Moderate plaque of the aorta extends into abdomin al branch vessels. New trace perihepatic ascites. Cortical thinning in both kidneys consistent with p roduct of chronic medical renal disease. Diverticula in the colon near level of splenic flexure. Prom inence of central bile ducts partially imaged. [id number] diffuse soft tissue anasarca new from prior. IMPRESSION: Suspect fluid overload state as there is new mild to moderate diffuse soft tissue anasarc a most prominent over the visualized upper abdomen. There are small to moderate-sized bilateral pleur al effusions and fairly moderate left greater than right central alveolar edema. Underlying infiltrat es not excluded particularly in the left lung.
[2020-01-22 18:00] LABS: Glucose,Whole Blood 215 mg/dL (75-99)
[2020-01-22 23:51] LABS: Glucose,Whole Blood 193 mg/dL (75-99)
[2020-01-23] MEDS: INSULIN ASPART (NovoLOG) 100 UNIT/ML VIAL SQ SCH ×5 (00:31→23:28)
[2020-01-23] MEDS: HEPARIN SODIUM,PORCINE 5,000 UNIT/ML 1 ML VIAL SQ SCH ×4 (00:31→23:25)
[2020-01-23 02:30] LABS: ABG Base Excess 1.1 mmol/L; ABG HCO3 25 mmol/L (21-25); ABG Oxygen Saturation 84.7 % (94-97); ABG PCO2 38 mmHg (35-45); ABG PH 7.44 (7.35-7.45); ABG TCO2 27 mmol/L (19-24)
[2020-01-23 02:36] LABS: Allen Test Performed? no
[2020-01-23] MEDS: IPRATROPIUM-ALBUTEROL 3 ML NEB INHALATION SCH ×6 (02:37→23:21)
[2020-01-23] MEDS: PROPOFOL 1,000 MG in EMPTY BAG 1 BAG IV SCH ×5 (02:48→21:48)
[2020-01-23] MEDS: SODIUM CHLORIDE 0.9% 500 ML 500 ML IV SCH (03:08)
[2020-01-23 04:46] LABS: ABG Base Excess -0.1 mmol/L; ABG HCO3 25 mmol/L (21-25); ABG Oxygen Saturation 88.1 % (94-97); ABG PCO2 42 mmHg (35-45); ABG PH 7.39 (7.35-7.45); ABG TCO2 26 mmol/L (19-24)
[2020-01-23 04:50] LABS: Allen Test Performed? no
[2020-01-23] MEDS: FUROSEMIDE 10 MG/ML 4 ML VIAL IV SCH (04:50)
[2020-01-23 06:22] LABS: Glucose,Whole Blood 149 mg/dL (75-99)
[2020-01-23 06:39] LABS: Anisocytosis Slight; Basophils % (A) 0 %; Eosinophils # (A) 0.1 k/uL (0-0.7); Eosinophils % (A) 1 %; HCT 24.7 % (34.0-46.0); HGB 7.9 gm/dL (11.4-16.0); Lymphocytes # (A) 1.8 k/uL (1.0-4.8); Lymphocytes % (A) 12 %; MCH 31.8 pg (25.0-35.0); MCHC 31.9 g/dL (31.0-37.0); MCV 99.8 fL (80.0-100.0); Macrocytosis Slight; Mean Platelet Volume 8.2; Monocytes # (A) 0.7 k/uL (0-1.0); Monocytes % (A) 5 %; Neutrophils # (A) 11.7 k/uL (1.3-7.7); Neutrophils % (A) 82 %; Platelet Count 398 k/uL (150-450); RBC 2.48 m/uL (3.80-5.40); RDW 17.5 % (11.5-15.5); WBC 14.3 k/uL (3.8-10.6)
[2020-01-23 07:09] LABS: Calcium 7.4 mg/dL (8.4-10.2); Potassium 3.2 mmol/L (3.5-5.1)
[2020-01-23 08:28] LABS: ABG Base Excess 1.1 mmol/L; ABG HCO3 25 mmol/L (21-25); ABG PCO2 37 mmHg (35-45); ABG PH 7.44 (7.35-7.45); ABG PO2 258 mmHg (83-108); ABG TCO2 26 mmol/L (19-24); Allen Test Performed? Yes
--- NOTE | 2020-01-23 08:31 | P.PN ---
Subjective Progress Note Date: 01/23/20 89-year-old female patient with known history of CAD and CHF with an ejection fraction of 55-40% and history of valvular heart disease with severe MR and severe TR along with other comorbidities such as hypertension and hyperlipidemia and diabetes mellitus. The patient came into the hospital because of worsening shortness of breath. Her chest x-ray shows cardiomegaly and pulmonary edema and possibly some bilateral pleural effusion. Her shortness of breath developed 4 days ago and progressively got worse. She also had some increased cough and congestion either to bring up much sputum. No fever or chills. The influenza screen was negative. ProBNP level was 71,000. Troponin peaked at 1.4. Her serum lactate was at one 0.8. Creatinine is at 1.5 with a white second of 13.7 and a hemoglobin of 8.4. EKG showing a normal sinus rhythm. She weighs over the inferior leads and inferior leads suggestive of sepsis/inferior infarct. No ST segment elevation or depression. Currently, the patient is on BiPAP for respiratory support at a pressure of 12/6 with an FiO2 of 60%. The patient is also receiving IV Lasix 40 mg every 12 hours. On today's evaluation of 01/22/2020 the patient is in the intensive care unit. Note that overnight the patient's sister status decompensated. She failed BiPAP therapy. She became progressively more tachypneic and unresponsive. She was moved to the intensive care unit where she was intubated and she was placed on a mechanical ventilator. This morning she assist-control mode at the rate of 20 with a tidal volume of 450 and FiO2 of 80% and a PEEP of 5. The blood gases from today showed a pH of 7.51 with a pCO2 of 35 and pO2 of 109. The patient has no significant orotracheal secretions. The chest x-ray from today showing pulmonary edema with bilateral pleural effusions. Urine output is in order of 30-40 mL an hour. The patient is currently on norepinephrine infusion which is running at 0.1 g per KG per minute. The patient has no fever. The patient is in sinus rhythm. A repeat echocardiogram was done today. Creatinine is stable at 1.6. No significant leukocytosis. Note that, I talked to the family again. Based on the reported formation, the patient had his AV of vancomycin-induced skin rash with some skin sloughing approximately 2 months ago for which she was hospitalized in early hospital and she was treated and she was discharged home. She has stage II small 3 wounds on her coccyx. No other significant events overnight. She is was sedated with propofol which is running at 50 g per KG per minute. On 01/23/2020 on seeing the patient in intensive care unit for a follow-up. This morning the patient is sedated with propofol and she is at 40 g per minute. She is well sedated and she is calm and comfortable. She is on a mechanical ventilator. She is on assist control mode at the rate of 20 with tidal volume of 400 and FiO2 of 40% and a PEEP of 5. Earlier this morning at around 4 AM, the patient encountered desaturation and the blood gases was done at that time showed a pH of 7.39 with a pCO2 of 42 and pO2 of 58. Based on that, the patient was brought up to an FiO2 of 100% and a PEEP was brought up to 10. Her pulse ox improved and she is at 100% right now and we were able to wean her down to 80%. A CAT scan of the chest was done yesterday showed bilateral pleural effusions, compressive atelectasis in lung bases and interstitial edema consistent with fluid overload. She was getting Lasix 40 mg IV push every 12 hours and her urine output is ranging between 5-30 mL an hour. Norepinephrine i nfusion is running at 0.1 g per KG her minutes for hemodynamic support. Her most recent systolic blood pressure is 106 with a mean of 66. The chest x-ray from today shows pulmonary edema and there is worsening consolidation of the left compared to the right which obviously raises the concern for an underlying pneumonia. The pro-calcitonin level was 0.33 and the patient was covered with IV Zosyn. She is afebrile for now. The white cell count is at 14.3. She is on enteral feeding for nutritional support and she is receiving vital high protein at the rate of 40 mL an hour. Hemoglobin stable at 7.9. Family is at the bedside and I updated them on her condition. She is still undergoing full medical support at this point in time. Objective - Vital Signs Vital signs: Vital Signs Temp 97.4 F L 01/23/20 00:00 Pulse 104 H 01/23/20 07:35 Resp 18 01/23/20 07:00 BP 122/55 01/23/20 07:00 Pulse Ox 99 01/23/20 07:00 Intake & Output 01/22/20 01/23/20 01/23/20 18:59 06:59 18:59 Intake Total 471.833 3120.073 20 Output Total 405 240 Balance 460.465 888.073 20 Weight 96.5 kg 77.7 kg Intake: IV 170 320 20 0.9 70 220 20 Piperacillin-Tazobactam 3 100 100 .375 gm In Sodium Chloride 0.9% 100 ml @ 25 mls/hr IVPB Q12HR [facility] Rx #:[id number] Intake, IV Titration 651.465 536.073 Amount Norepinephrine 4 mg In 254.00 254.000 Sodium Chloride 0.9% 250 ml @ 0.05 MCG/KG/MIN 18. 383 mls/hr IV .[id number] [facility] Rx#:[id number] Propofol 1,000 mg In 297.465 282.073 Empty Bag 1 bag @ Titrate IV .Q0M [facility] Rx#: [id number] Sodium Ferric Gluconat- 100 Sucrose 125 mg In Sodium Chloride 0.9% 100 ml @ 100 mls/hr IVPB ONCE ONE Rx#:[id number] Tube Feeding 14 182 Other 30 90 Output: Urine 405 240 Other: Voiding Method Indwelling Catheter Indwelling Catheter ABP, PAP, CO, CI - Last Documented Arterial Blood Pressure 116/39 - Exam Intubated on mechanical ventilator. Orogastric and orotracheal tube are both in place and the patient is well sedated. Head exam was generally normal. There was no scleral icterus or corneal arcus. Mucous membranes were moist. Neck was supple and without jugular venous distension, thyromegaly, or carotid bruits. Carotids were easily palpable bilaterally. There was no adenopathy. Lungs sounds are diminished bilaterally along with crackles in the lung bases. Heart sounds are irregular, this systolic ejection murmur grade 4/6 heard throughout the precordium mainly in the apex and radiating to the neck bilaterally. Abdominal exam revealed normal bowel sounds. The abdomen was soft, non-tender, and without masses, organomegaly, or appreciable enlargement of the abdominal aorta. Examination of the extremities revealed easily palpable radial, femoral and ped al pulses. There was no cyanosis, clubbing or edema. Examination of the skin shows 3 stage II sacral decub ulcerations. Neurologically the patient has been sedated and she is calm and comfortable. No focal neurological deficits. She withdraws to painful stimulation. - Labs CBC & Chem 7: 01/23/20 06:20 01/23/20 06:20 Labs: Abnormal Lab Results - Last 24 Hours (Table) 01/21/20 01/22/20 01/22/20 Range/Units 10:11 04:58 11:46 WBC (3.8-10.6) k/uL RBC (3.80-5.40) m/uL Hgb (11.4-16.0) gm/dL Hct (34.0-46.0) % RDW (11.5-15.5) % Neutrophils # (1.3-7.7) k/uL ABG pO2 (83-108) mmHg ABG Total CO2 (19-24) mmol/L ABG O2 Saturation (94-97) % Potassium (3.5-5.1) mmol/L BUN (7-17) mg/dL Creatinine (0.52-1.04) mg/dL Glucose (74-99) mg/dL POC Glucose (mg/dL) 238 H (75-99) mg/dL Calcium (8.4-10.2) mg/dL Iron 35 L (50-170) ug/dL TIBC 213 L (228-460) ug/dL Procalcitonin 0.33 H (0.02-0.09) ng/mL 01/22/20 01/22/20 01/23/20 Range/Units 17:58 23:50 02:29 WBC (3.8-10.6) k/uL RBC (3.80-5.40) m/uL Hgb (11.4-16.0) gm/dL Hct (34.0-46.0) % RDW (11.5-15.5) % Neutrophils # (1.3-7.7) k/uL ABG pO2 50 L* (83-108) mmHg ABG Total CO2 27 H (19-24) mmol/L ABG O2 Saturation 84.7 L (94-97) % Potassium (3.5-5.1) mmol/L BUN (7-17) mg/dL Creatinine (0.52-1.04) mg/dL Glucose (74-99) mg/dL POC Glucose (mg/dL) 215 H 193 H (75-99) mg/dL Calcium (8.4-10.2) mg/dL Iron (50-170) ug/dL TIBC (228-460) ug/dL Procalcitonin (0.02-0.09) ng/mL 01/23/20 01/23/20 01/23/20 Range/Units 04:40 06:20 06:20 WBC 14.3 H (3.8-10.6) k/uL RBC 2.48 L (3.80-5.40) m/uL Hgb 7.9 L (11.4-16.0) gm/dL Hct 24.7 L (34.0-46.0) % RDW 17.5 H (11.5-15.5) % Neutrophils # 11.7 H (1.3-7.7) k/uL ABG pO2 58 L* (83-108) mmHg ABG Total CO2 26 H (19-24) mmol/L ABG O2 Saturation 88.1 L (94-97) % Potassium 3.2 L (3.5-5.1) mmol/L BUN 46 H (7-17) mg/dL Creatinine 1.56 H (0.52-1.04) mg/dL Glucose 135 H (74-99) mg/dL POC Glucose (mg/dL) (75-99) mg/dL Calcium 7.4 L (8.4-10.2) mg/dL Iron (50-170) ug/dL TIBC (228-460) ug/dL Procalcitonin (0.02-0.09) ng/mL 01/23/20 Range/Units 06:21 WBC (3.8-10.6) k/uL RBC (3.80-5.40) m/uL Hgb (11.4-16.0) gm/dL Hct (34.0-46.0) % RDW (11.5-15.5) % Neutrophils # (1.3-7.7) k/uL ABG pO2 (83-108) mmHg ABG Total CO2 (19-24) mmol/L ABG O2 Saturation (94-97) % Potassium (3.5-5.1) mmol/L BUN (7-17) mg/dL Creatinine (0.52-1.04) mg/dL Glucose (74-99) mg/dL POC Glucose (mg/dL) 149 H (75-99) mg/dL Calcium (8.4-10.2) mg/dL Iron (50-170) ug/dL TIBC (228-460) ug/dL Procalcitonin (0.02-0.09) ng/mL Microbiology - Last 24 Hours (Table) 01/21/20 01:58 Blood Culture - Preliminary Blood No Growth after 48 hours 01/21/20 14:10 Urine Culture - Final Urine,Clean Catch 01/21/20 21:25 Gram Stain - Preliminary Sputum Sputum Culture - Preliminary Assessment and Plan Plan: 1 acute hypoxic respiratory failure secondary to acute CHF exacerbation with a component of pulmonary edema and bilateral pleural effusions. The patient was initially treated with BiPAP and the patient failed BiPAP and subsequently she was intubated and placed on a mechanical ventilator. CAT scan of the chest was noted. Repeat chest x-ray was noted. There is a concern for a combination of pneumonia and CHF. The patient is more consolidated on the left compared to the right and there is bilateral pleural effusion and consolidation of the lung bases along with compressive atelectasis. ProBNP level is slightly elevated and she is having a low-grade fever. The acute Hypoxic respiratory failure is probably a combination of CHF and superimposed pneumonia. The patient is currently on IV Zosyn. 2 acute non-ST segment elevation myocardial infarction with elevated troponins modest troponin peaked at 1.4 3 multivessel coronary artery disease with previous stenting of the LAD and subsequent stenting of the left main that was done in March 2019 with the use of a Impella device. The patient has segmental wall motion abnormalities. The underlying ejection fraction is no other of 35%. 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 The EGD that was done showed mild gastritis without evidence of an acute bleeding. The patient colonoscopy that showed no evidence of any acute bleeding and the patient had pandiverticulosis. 16 acute hypoxic respiratory failure intubated on a mechanical ventilator. 17 stage II sacral decubitus ulceration. Plan Continue vent support, necessary adjustments was done and the patient's PEEP is currently at 10 with an FiO2 of 80%. Follow-up gases pending. Continued IV Lasix Continue pressors for hemodynamic support Repeat echocardiogram, the ejection fraction is around 35-40%. There is wall motion abnormality addition to moderate to severe aortic stenosis moderate to severe mitral regurgitation and mild tricuspid regurgitation. No pericardial effusion. IVC was not visualized. Continue with diuresis and support the patient with norepinephrine infusion for blood pressure support Obtain sputum Gram stain and culture Proceed with a bronchoscopy and obtain lavage of the left upper lobe for microbial analysis. Discontinue Lexapro Put the patient on Zyvox 600 mg IV every 12 hours Wound care will continue to follow. Condition is critical and this evaluation was done and more than 30 minutes. Condition is critical. The patient is receiving enteral feeding for nutritional support. We'll continue to follow. Time with Patient: Greater than 30
--- NOTE | 2020-01-23 08:32 | PN ---
PROGRESS NOTE Mrs. Mcclain is an 89-year-old female with known history of coronary artery disease, status post stenting of the LAD and to the left main, history of aortic valve disease who presented with symptoms of progress dyspnea requiring BiPAP. She decompensated day before yesterday and required mechanical ventilation. During the night, she became more hypotensive requiring norepinephrine. She remains intubated and sedated on pressors. Hemodynamically, her blood pressure is on the low side. She continues to be receiving IV diuretics in the form of Lasix 40 mg IV q.12 hours. PHYSICAL EXAMINATION: Her blood pressure is 115/40 with a heart rate in the low 100s. LUNGS: With decreased air exchange anteriorly. HEART: S1, S2 with a systolic ejection murmur 3/6 heard at the base mid to late peaking, no diastolic murmur. no rub. ABDOMEN: Soft. Positive bowel sounds. EXTREMITIES: No significant edema. LAB DATA: Chest x-ray revealed an infiltrate on the left lung that has worsened in comparison to prior. There is a infectious process. Her hemoglobin is 7.9, white blood cell 14.3, BUN and creatinine 46 and 1.56 that have been stable, with potassium 3.2. IMPRESSION: 1. Respiratory failure, musculature with fluid overload and evidence of congestive heart failure. Possibility of infectious process. An aspiration pneumonia cannot be excluded. 2. History of coronary artery disease, status post PCI of left main. 3. Aortic valve disease. 4. Worsening renal function. 5. Cardiomyopathy. 6. Diabetes mellitus. RECOMMENDATION: The patient had an echocardiogram yesterday and revealed severely cardiac function EF 35%-40%. There was moderate severe mitral regurgitation and at least moderate aortic stenosis with a mean gradient 36 mmHg. At this time, will continue the present therapy and supportive care and personal care, that prognosis remains quite poor in view of her multiorgan failure and her known prior cardiomyopathy and severe multivalvular disease. I have discussed those finding yesterday with the family. We will await the further recommendation regarding her code status and aggressiveness of her treatment. MMODL / IJN: [id number] /
--- NOTE | 2020-01-23 08:35 | XR ---
EXAMINATION TYPE: XR chest 1V DATE OF EXAM: 01/23/2020 COMPARISON: Prior chest x-ray 01/22/2020 HISTORY: Congestive heart failure TECHNIQUE: Single frontal view of the chest is obtained. FINDINGS: Endotracheal tube and NG tube are overlying appropriate positions, left subclavian central venous catheter is stable, distal tip of the NG tube not included on the exam. Patient is rotated, p ostop change noted in the cervical spine, there are overlying cardiac leads and artifacts. No evident pneumothorax. Airspace disease has progressed greater on the left. There is blunting of the costophr enic angles, obscured hemidiaphragms. IMPRESSION: Worsening airspace disease. Correlate for congestive heart failure with pulmonary edema, pneumonia with associated effusions, follow-up recommended
[2020-01-23] MEDS: NOREPINEPHRINE 4 MG in SODIUM CHLORIDE 0.9% 250 ML IV SCH (09:00)
--- NOTE | 2020-01-23 09:30 | P.PCN ---
Date of Procedure: 01/23/20 Preoperative Diagnosis: Left upper lobe pneumonia, acute hypoxic respiratory failure Postoperative Diagnosis: Same Procedure(s) Performed: Flexible bronchoscopy, BAL of the left upper lobe Anesthesia: FERN Surgeon: Varinder Samano Estimated Blood Loss (ml): 0 Pathology: other Condition: stable Disposition: ICU Operative Findings: Flexible bronchoscopy and BAL of the left upper lobe This procedure was done intensive care unit. The patient already intubated on a mechanical ventilator. Pulse ox was around 99%. The flexible bronchoscope was introduced through the orotracheal tube and was advanced into the lower trachea. The tip of the orotracheal tube was seen on 1 cm above the sreedhar. A quick airway inspection was done. Visualized airways into the right mainstem bronchus, right upper lobe bronchus, bronchus intermedius, right middle lobe and right lower lobe bronchus. Examination of the left side included left mainstem bronchus and the left upper lobe and left lower lobe bronchus. Segmented examination was also done. Some limited amount of frothy secretions was encountered and was suctioned out. Bronchoscope was then moved to the left upper lobe lingular segment and a BAL of the right upper lobe was done. A total of 60 mL of fluid was infused and 20 mL was aspirated without any major difficulties. The procedure was quickly terminated and the bronchoscope was removed. The disposable bronchoscope was used to complete this procedure. Pulse ox remained above 95% throughout the procedure. No significant abnormalities endobronchially. No foreign bodies. No lesions. No significant respiratory secretions encountered.
[2020-01-23] MEDS: CISATRACURIUM 2 MG/ML 5 ML VIAL IV ONE (09:31)
[2020-01-23] MEDS: PANTOPRAZOLE 40 MG/10 ML VIAL IV SCH (10:02)
[2020-01-23] MEDS: ATORVASTATIN 10 MG TAB PO SCH (10:02)
[2020-01-23] MEDS: FAMOTIDINE 20 MG TAB PO SCH (10:02)
[2020-01-23] MEDS: METOPROLOL TARTRATE 25 MG TAB PO SCH ×2 (10:02→21:58)
[2020-01-23] MEDS: CLOPIDOGREL 75 MG TAB PO SCH (10:02)
[2020-01-23] MEDS: ISOSORBIDE MONONITRATE ER 60 MG TAB.ER.24H PO SCH (10:03)
[2020-01-23] MEDS: ASPIRIN 81 MG PO SCH (10:03)
[2020-01-23] MEDS: LINEZOLID 600 MG in DEXTROSE/WATER 1 300ML.BAG IVPB SCH ×2 (10:03→21:51)
[2020-01-23] MEDS: PIPERACILLIN-TAZOBACTAM 3.375 GM in SODIUM CHLORIDE 0.9% 100 ML IVPB SCH ×2 (10:03→21:58)
[2020-01-23 12:00] LABS: Glucose,Whole Blood 131 mg/dL (75-99)
[2020-01-23 12:44] LABS: Appearance,BF Cloudy; Color,BF Pink; Nucleated Cells, Body Fluid 450 /uL; RBC, Body Fluid 13750 /uL
[2020-01-23 12:45] LABS: Mononuclear WBC,Body Fluid 43 %; Polynuclear WBC,Body Fluid 57 %; Total Cells Counted,Body Fluid 100
[2020-01-23] MEDS: NOREPINEPHRINE 32 MG in SODIUM CHLORIDE 0.9% 218 ML IV SCH (13:16)
--- NOTE | 2020-01-23 14:19 | P.PN ---
Subjective Progress Note Date: 01/23/20 This is an 89-year-old female patient of Dr. Sales with known medical history of chronic systolic heart failure and ischemic cardiomyopathy with known ejection fraction 35-40%, severe mitral regurgitation, moderate aortic stenosis, hypertension, chronic kidney disease stage III, type 2 diabetes, Alzheimer's dementia, coronary artery disease status post PCI to the left main and LAD in 2018, hypertension, hyperlipidemia, recurrent depression. Patient is currently living at home with her daughter. She was recently at [facility] for subacute rehab. 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 After patient was discharged to [place], she went to [facility] had increased edema to the arms and legs for which Lasix was on a 20 g twice daily. This was eventually decreased to every day. She was also on Nepro supplement. Patient has had increasing shortness of breath. She was utilizing 1-1-1/2 L of oxygen at home and normally pulse oxing 90-96%. Daughter gradually increase this until she was up to 5 L of oxygen yesterday and then called EMS. Patient normally is ambulatory with a walker with assistance. She needs help with feeding. Patient has been under increased stress especially the last 3 days as a daughter on December 24. At the time of this evaluation, patient is on BiPAP. She is able to answer some simple questions, most of the history is obtained from the patient's daughter. Patient was brought into [facility] emergency center for evaluation. WBC 13.7, hemoglobin 8.4, platelets 436, sodium 134, potassium 4.1, creatinine 1.56 with a GFR of 30, lactic acid on admission 4. 5 repeat 1.8, magnesium 2.4, troponin 0.921 and repeat 1.440, and NT proBNP 71,100, TSH 2.570. EKG sinus rhythm with ST depression in anterior lateral leads, chronic when compared to old EKGs. Patient has been afebrile, heart rate 69, respiratory rate 26, pulse ox 92% on BiPAP, blood pressure 131/68. Chest x-ray shows congestive heart failure pulmonary edema compared to old exam. Pleural effusions new. Patient has been admitted to the cardiac stepdown unit and consults with pulmonary medicine and cardiology. 01/21: Yesterday afternoon, patient developed increasing shortness of breath while on BiPAP 60% FiO2. Pulse ox dropped down 88%. Chest x-ray was ordered which revealed congestive heart failure pulmonary edema. Edema appears improved comp ared to exam earlier today. Patient was given IV Lasix 40 mg and Xanax and Sunshine catheter was placed. Nursing clarified CODE STATUS is full code. Patient was moved into intensive care unit and intubated and placed on mechanical ventilation. Patient remains intubated and on mechanical ventilation with tidal volume 400, FiO2 50, PEEP 5. OG tube in place with bile/brown return. Patient has been afebrile, heart rate 75, blood pressure 118/47. Repeat blood work reveals WBC 13.8, hemoglobin 7.8, electrolytes within normal limits. BUN 47 creatinine 1.62, blood glucose running between 187 and 230. Cortisol level greater than 123 and hydrocortisone discontinued. Blood culture reveals no growth at 24 hours. Urine culture in progress. Zosyn was added for prophylaxis by Dr. Samano, no clear pneumonia. Echocardiogram reveals EF 35-40%, mild aortic regurgitation, moderate to severe aortic stenosis, moderate to severe mitral regurgitation, mild tricuspid regurgitation. 01/22: Patient remains in intensive care unit intubated and on mechanical ventilation. Tidal volume 400, FiO2 80 and PEEP of 10. Patient had a very rough night with a drop in her temperature, drop in her blood pressure and pulse ox. She was placed on 100% oxygen and Levophed was increased to 20 mics. CAT scan of the chest was done last evening which reveals suspect fluid overload state as there is new mild to moderate diffuse soft tissue anasarca most prominent over the visualized upper abdomen. There is small to moderate-sized bilateral pleural effusions and fairly moderate left greater than right central alveolar edema. Underlying infiltrates not excluded particularly in the left lung. Patient has been afebrile, heart rate 106, blood pressure 117/71. Repeat blood work reveals WBC 14.3, hemoglobin 7.9, platelet count 398. Potassium 3.2 and his been replaced, BUN 46 and creatinine 1.56. Blood sugar 149. Pro- calcitonin was 0.33. Chest x-ray this morning reveals worsening airspace disease. Correlate for congestive heart failure with pulmonary edema, pneumonia with associated effusions. This morning, patient underwent a flexible bronchoscopy and BAL of the left upper lobe and no significant abnormalities were seen. No foreign bodies, lesions, significant secretions. Dr. Samano has added and Zyvox today to cover MRSA as she has a history and patient is also on IV Zosyn. Patient received a dose of Ferrlecit yesterday. Patient has been started on tube feedings. Patient has had urine output of less than 10 mL/h currently at 20 after IV Lasix. Repeat echocardiogram was done. CVP is 5-8. Discussed with the patient's daughter current condition and at this time, chest ultrasound will be delayed until patient is off the ventilator. Patient's daughter has discussed with her brother the patient's CODE STATUS and agreed to make her no code. Plan is to continue aggressive treatment but if patient's heart stops no CPR. Objective - Vital Signs Vital signs: Vital Signs Temp 98.9 F 01/23/20 08:30 Pulse 106 H 01/23/20 10:00 Resp 20 01/23/20 10:00 BP 117/71 01/23/20 10:00 Pulse Ox 100 01/23/20 10:00 Intake & Output 01/22/20 01/23/20 01/23/20 18:59 06:59 18:59 Intake Total 856.832 3989.073 235.575 Output Total 405 240 70 Balance 460.465 888.073 165.575 Weight 96.5 kg 77.7 kg Intake: IV 170 320 180 0.9 70 220 80 Piperacillin-Tazobactam 3 100 100 100 .375 gm In Sodium Chloride 0.9% 100 ml @ 25 mls/hr IVPB Q12HR [facility] Rx #:[id number] Intake, IV Titration 651.465 536.073 27.575 Amount Norepinephrine 4 mg In 254.00 254.000 27.575 Sodium Chloride 0.9% 250 ml @ 0.05 MCG/KG/MIN 18. 383 mls/hr IV .[id number] [facility] Rx#:[id number] Propofol 1,000 mg In 297.465 282.073 Empty Bag 1 bag @ Titrate IV .Q0M [facility] Rx#: [id number] Sodium Ferric Gluconat- 100 Sucrose 125 mg In Sodium Chloride 0.9% 100 ml @ 100 mls/hr IVPB ONCE ONE Rx#:[id number] Tube Feeding 14 182 28 Other 30 90 Output: Urine 405 240 70 Other: Voiding Method Indwelling Catheter Indwelling Catheter ABP, PAP, CO, CI - Last Documented Arterial Blood Pressure 120/43 - Exam Review of Systems unable to obtain due to intubation Gen: This is an 89-year-old female. Patient is lying in ICU bed. She is intubated and on mechanical ventilation. Patient appears to be in no acute distress. HEENT: Head is atraumatic, normocephalic. Pupils equal, round. Sclerae is anicte mike. Oral mucous membranes are moist. ET and gastric tube in place orally. NECK: Supple. No JVD. No lymphadenopathy. No thyromegaly. LUNGS: Diminished in the bases with crackles bilaterally to the bases. No intercostal retractions. HEART: Regular rate and rhythm. Systolic murmur. ABDOMEN: Soft. Bowel sounds are present. No masses. No tenderness. EXTREMITIES: Trace bilateral lower extremity and upper extremity edema. No calf tenderness. Dorsalis pedis +2 bilaterally. NEUROLOGICAL: Patient is sedated - Labs CBC & Chem 7: 01/23/20 06:20 01/23/20 06:20 Labs: Abnormal Lab Results - Last 24 Hours (Table) 01/22/20 01/22/20 01/22/20 Range/Units 04:58 11:46 17:58 WBC (3.8-10.6) k/uL RBC (3.80-5.40) m/uL Hgb (11.4-16.0) gm/dL Hct (34.0-46.0) % RDW (11.5-15.5) % Neutrophils # (1.3-7.7) k/uL ABG pO2 (83-108) mmHg ABG Total CO2 (19-24) mmol/L ABG O2 Saturation (94-97) % Potassium (3.5-5.1) mmol/L BUN (7-17) mg/dL Creatinine (0.52-1.04) mg/dL Glucose (74-99) mg/dL POC Glucose (mg/dL) 238 H 215 H (75-99) mg/dL Calcium (8.4-10.2) mg/dL Procalcitonin 0.33 H (0.02-0.09) ng/mL 01/22/20 01/23/2020 Range/Units 23:50 02:29 04:40 WBC (3.8-10.6) k/uL RBC (3.80-5.40) m/uL Hgb (11.4-16.0) gm/dL Hct (34.0-46.0) % RDW (11.5-15.5) % Neutrophils # (1.3-7.7) k/uL ABG pO2 50 L* 58 L* (83-108) mmHg ABG Total CO2 27 H 26 H (19-24) mmol/L ABG O2 Saturation 84.7 L 88.1 L (94-97) % Potassium (3.5-5.1) mmol/L BUN (7-17) mg/dL Creatinine (0.52-1.04) mg/dL Glucose (74-99) mg/dL POC Glucose (mg/dL) 193 H (75-99) mg/dL Calcium (8.4-10.2) mg/dL Procalcitonin (0.02-0.09) ng/mL 01/23/20 01/23/20 01/23/20 Range/Units 06:20 06:20 06:21 WBC 14.3 H (3.8-10.6) k/uL RBC 2.48 L (3.80-5.40) m/uL Hgb 7.9 L (11.4-16.0) gm/dL Hct 24.7 L (34.0-46.0) % RDW 17.5 H (11.5-15.5) % Neutrophils # 11.7 H (1.3-7.7) k/uL ABG pO2 (83-108) mmHg ABG Total CO2 (19-24) mmol/L ABG O2 Saturation (94-97) % Potassium 3.2 L (3.5-5.1) mmol/L BUN 46 H (7-17) mg/dL Creatinine 1.56 H (0.52-1.04) mg/dL Glucose 135 H (74-99) mg/dL POC Glucose (mg/dL) 149 H (75-99) mg/dL Calcium 7.4 L (8.4-10.2) mg/dL Procalcitonin (0.02-0.09) ng/mL 01/23/20 Range/Units 08:25 WBC (3.8-10.6) k/uL RBC (3.80-5.40) m/uL Hgb (11.4-16.0) gm/dL Hct (34.0-46.0) % RDW (11.5-15.5) % Neutrophils # (1.3-7.7) k/uL ABG pO2 258 H (83-108) mmHg ABG Total CO2 26 H (19-24) mmol/L ABG O2 Saturation 100.0 H (94-97) % Potassium (3.5-5.1) mmol/L BUN (7-17) mg/dL Creatinine (0.52-1.04) mg/dL Glucose (74-99) mg/dL POC Glucose (mg/dL) (75-99) mg/dL Calcium (8.4-10.2) mg/dL Procalcitonin (0.02-0.09) ng/mL Microbiology - Last 24 Hours (Table) 01/21/20 01:58 Blood Culture - Preliminary Blood No Growth after 48 hours 01/21/20 14:10 Urine Culture - Final Urine,Clean Catch 01/21/20 21:25 Gram Stain - Preliminary Sputum Sputum Culture - Preliminary Assessment and Plan Plan: 1. Acute hypoxic respiratory failure secondary to acute on chronic systolic heart failure with bilateral pleural effusions, POA with severe hypotension requiring vasopressors. Consult with cardiology appreciated. Pulmonary medicine also on consult. Patient is now intubated and on mechanical ventilation. Continue Lasix 40 mg IV twice daily, monitor I&O and daily kenya ghts, monitor renal function and electrolytes. Echocardiogram as above. Zosyn and Zyvox in place. No sign of pneumonia. Bilateral pleural effusions to be further evaluated once patient is extubated 2. Acute non-ST elevated myocardial infarction. Cardiology is on consult. 3. History of coronary artery disease status post PCI of the left main in March 2019. Continue aspirin 81 mg daily, Lipitor 10 mg daily, Plavix 75 mg daily, off Imdur 60 mg daily, continue Lopressor 25 mg twice daily. 4. Ischemic cardiomyopathy. Continue as in #1. 5. Hypertension. Continue Lasix,. Hydralazine, Norvasc discontinued. 6. Hyperlipidemia. Continue statin 7. Diabetes mellitus type 2. Continue NovoLog scale before meals and at bedtime. Off Prandin 0.5 mg twice daily, Tradjenta 5 mg daily. 8. Alzheimer's dementia. Hold galantamine. 9. Acute kidney injury with chronic kidney disease stage II. Patient has been oliguric overnight, continue Lasix 40 mg IVP twice daily. 10. Recurrent depression. 11. Valvular heart disease with moderate to severe aortic stenosis and severe mitral regurgitation, mild tricuspid regurgitation. 12. Anemia with history of acute blood loss GI bleed anemia that had recovered in November and December with hemoglobin of 13.6. Iron studies, stool for occult blood. Ferrlecit 1 CODE STATUS: No code. Okay to continue aggressive treatment otherwise. Discharge plan: To be determined. PT and OT will be added once patient stabilizes. Impression and plan of care have been directed as dictated by the signing physician. Donita Padron nurse practitioner acting as scribe for signing physician.
--- NOTE | 2020-01-23 15:05 | PN ---
PROGRESS NOTE Patient is seen for followup for acute kidney injury on top of chronic kidney disease. She is currently being diuresed. Patient is maintained on IV Lasix. She has had fair urine output about 20 to 30 mL an hour. Patient is status post bronchoscopy this morning. She is still maintained on Levophed. It appears that the dose had increased during the night, but now it is being weaned down. The patient remains on the vent. FiO2 is at 80%. On examination, blood pressure 95/44, heart rate 82 per minute, she is afebrile. Examination of the heart S1, S2. Examination of the lungs, bilateral breath sounds are heard. Abdomen is soft, nontender. Examination of the lower extremities shows edema 1+ bilaterally. ENROLLMENT SPECIALIST exam not performed. Patient is sedated and on the vent. LABS: Show hemoglobin 7.9 this morning, sodium 140, potassium 3.2, chloride 107, BUN 46, creatinine 1.56. ASSESSMENT: 1. Acute kidney injury, mainly cardiorenal currently improving. Serum creatinine has decreased to 1.5 from 1.6 yesterday. Continue with the IV Lasix for now. Chest x- ray from today continues to show changes of congestive heart failure and pulmonary edema. I will increase the dose of Lasix to 60 mg q.12 hours. 2. Hypoxic respiratory failure, acute secondary to congestive heart failure. 3. Hypotension. Levophed is currently being weaned down. 4. Acute non ST elevation myocardial infarction. 5. Cardiomyopathy, ejection fraction 35%. 6. Moderate to severe mitral regurgitation with aortic stenosis. 7. 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 PLAN: Increase Lasix. Continue to diurese patient. Continue to avoid nephrotoxic agents. Maintain empiric antibiotics. MMODL / IJN: [id number] /
[2020-01-23] MEDS ORDERED: FUROSEMIDE 10 MG/ML 4 ML VIAL IV SCH ×2 (16:00→21:00)
[2020-01-23 17:40] LABS: Glucose,Whole Blood 184 mg/dL (75-99)
[2020-01-23] MEDS: MIDODRINE 5 MG TAB PO SCH (18:13)
[2020-01-23] MEDS: FUROSEMIDE 10 MG/ML 10 ML VIAL IV SCH (21:57)
[2020-01-23 23:22] LABS: Glucose,Whole Blood 191 mg/dL (75-99)
[2020-01-24] MEDS: IPRATROPIUM-ALBUTEROL 3 ML NEB INHALATION SCH ×6 (03:15→23:22)
[2020-01-24] MEDS: SODIUM CHLORIDE 0.9% 500 ML 500 ML IV SCH (03:45)
[2020-01-24] MEDS: PROPOFOL 1,000 MG in EMPTY BAG 1 BAG IV SCH (03:45)
[2020-01-24 05:10] LABS: ABG Base Excess 2.1 mmol/L; ABG HCO3 27 mmol/L (21-25); ABG Oxygen Saturation 99.4 % (94-97); ABG PCO2 42 mmHg (35-45); ABG PH 7.42 (7.35-7.45); ABG PO2 162 mmHg (83-108); ABG TCO2 28 mmol/L (19-24); Allen Test Performed? Yes
[2020-01-24 05:16] LABS: Glucose,Whole Blood 160 mg/dL (75-99)
[2020-01-24 05:19] LABS: Anisocytosis Slight; Basophils # (A) 0.1 k/uL (0-0.2); Basophils % (A) 1 %; Eosinophils # (A) 0.2 k/uL (0-0.7); Eosinophils % (A) 2 %; HCT 25.6 % (34.0-46.0); Lymphocytes # (A) 1.5 k/uL (1.0-4.8); Lymphocytes % (A) 15 %; MCH 31.2 pg (25.0-35.0); MCHC 31.3 g/dL (31.0-37.0); MCV 99.6 fL (80.0-100.0); Macrocytosis Slight; Mean Platelet Volume 9.1; Monocytes # (A) 0.4 k/uL (0-1.0); Monocytes % (A) 4 %; Neutrophils % (A) 77 %; Platelet Count 312 k/uL (150-450); RBC 2.57 m/uL (3.80-5.40); RDW 17.3 % (11.5-15.5); WBC 10.3 k/uL (3.8-10.6)
[2020-01-24] MEDS: INSULIN ASPART (NovoLOG) 100 UNIT/ML VIAL SQ SCH ×4 (05:19→23:35)
[2020-01-24 05:38] LABS: Calcium 7.1 mg/dL (8.4-10.2); Potassium 2.8 mmol/L (3.5-5.1)
[2020-01-24 07:16] LABS: ABG PO2 58 mmHg (83-108)
[2020-01-24 07:16] LABS: ABG PO2 50 mmHg (83-108)
--- NOTE | 2020-01-24 07:45 | XR ---
EXAMINATION TYPE: XR chest 1V DATE OF EXAM: 01/24/2020 COMPARISON: Prior chest x-ray 01/23/2020 HISTORY: Congestive heart failure TECHNIQUE: Single frontal view of the chest is obtained. FINDINGS: There is marked improvement in airspace disease in the left upper lobe. Bibasilar increase d density persists. Endotracheal tube, NG tube, left subclavian central venous catheter not changed. No evident pneumothorax. Heart size is unchanged. Aorta is dense. Dense coronary artery calcification s are present. IMPRESSION: Improvement in aeration. There may be basilar effusions and associated atelectasis versu s pneumonia, edema. Coronary artery disease.
[2020-01-24] MEDS ORDERED: POTASSIUM CHLORIDE ER 20 MEQ TAB.ER PO SCH (08:00)
[2020-01-24] MEDS: ASPIRIN 81 MG PO SCH (09:14)
[2020-01-24] MEDS: CLOPIDOGREL 75 MG TAB PO SCH (09:14)
[2020-01-24] MEDS: METOPROLOL TARTRATE 25 MG TAB PO SCH ×2 (09:14→20:43)
[2020-01-24] MEDS: MIDODRINE 5 MG TAB PO SCH ×3 (09:14→19:07)
[2020-01-24] MEDS: HEPARIN SODIUM,PORCINE 5,000 UNIT/ML 1 ML VIAL SQ SCH ×3 (09:15→23:35)
[2020-01-24] MEDS: ATORVASTATIN 10 MG TAB PO SCH (09:15)
[2020-01-24] MEDS: ISOSORBIDE MONONITRATE ER 60 MG TAB.ER.24H PO SCH (09:15)
[2020-01-24] MEDS: FUROSEMIDE 10 MG/ML 10 ML VIAL IV SCH ×2 (09:15→20:43)
[2020-01-24] MEDS: PANTOPRAZOLE 40 MG/10 ML VIAL IV SCH (09:15)
[2020-01-24] MEDS: PIPERACILLIN-TAZOBACTAM 3.375 GM in SODIUM CHLORIDE 0.9% 100 ML IVPB SCH ×2 (09:17→20:43)
[2020-01-24] MEDS: POTASSIUM CHLORIDE 20 MEQ in WATER FOR INJECTION 1 100ML.BAG IVPB SCH ×3 (09:17→12:09)
[2020-01-24] MEDS: POTASSIUM BICARBONATE/CIT AC 20 MEQ TABLET.EFF PO SCH ×3 (09:53→12:10)
[2020-01-24] MEDS: LINEZOLID 600 MG in DEXTROSE/WATER 1 300ML.BAG IVPB SCH ×2 (10:58→20:44)
--- NOTE | 2020-01-24 11:10 | PN ---
PROGRESS NOTE Mrs. Mcclain is an 89-year-old female with a history of coronary artery disease status left main and LAD is stenting, history of aortic valve disease who presented with symptoms progressive dyspnea and congestive heart failure with pneumonia, had worsening respiratory failure requiring mechanical ventilation. She underwent bronchoscopy yesterday with lavage. During the night, she was stable, hemodynamically stable. She remains intubated and sedated. There is no evidence of malignant arrhythmia. Her findings are consistent with left upper lobe pneumonia. She continues to be on antibiotic. Her urine output has been stable. She continues to be at this time on aspirin, Lipitor 10 mg daily, Plavix 75 mg daily, Lasix 60 mg IV q.12 hours, subcu heparin, isosorbide mononitrate 60 mg daily, metoprolol tartrate 25 mg twice a day, midodrine. PHYSICAL EXAMINATION: Blood pressure 103/60 with a heart rate in the 90s. The patient is intubated and sedated. LUNGS: A few crackles anteriorly. HEART: S1-S2 with systolic murmur, ejection type heard at the base. No diastolic murmur, no rub. ABDOMEN: Soft, nontender. EXTREMITIES: No significant edema noted. Chest x-ray shows significant improvement compared to yesterday in the left lung aeration after the bronchoscopy. LAB DATA: Revealed BUN and creatinine of 35 and 1.22, improved. Potassium is 2.8, being replaced. Hemoglobin of 8. IMPRESSION: 1. Respiratory failure with pneumonia, an element of congestive heart failure in a patient with known history of valvular disease and coronary artery disease. 2. History of coronary artery disease, status post PCI of the left main and the LAD. 3. Aortic valve disease. 4. Renal failure, improving. 5. Anemia. 6. Hypokalemia. 7. Cardiomyopathy. 8. Diabetes mellitus. RECOMMENDATION: From the cardiac standpoint, will continue current therapy. Continue to follow her renal function closely. Depending on her progress, further recommendation will be made. The prognosis remains guarded. MMODL / IJN: [id number] /
--- NOTE | 2020-01-24 11:15 | P.PN ---
Subjective Progress Note Date: 01/24/20 89-year-old female patient with known history of CAD and CHF with an ejection fraction of 55-40% and history of valvular heart disease with severe MR and severe TR along with other comorbidities such as hypertension and hyperlipidemia and diabetes mellitus. The patient came into the hospital because of worsening shortness of breath. Her chest x-ray shows cardiomegaly and pulmonary edema and possibly some bilateral pleural effusion. Her shortness of breath developed 4 days ago and progressively got worse. She also had some increased cough and congestion either to bring up much sputum. No fever or chills. The influenza screen was negative. ProBNP level was 71,000. Troponin peaked at 1.4. Her serum lactate was at one 0.8. Creatinine is at 1.5 with a white second of 13.7 and a hemoglobin of 8.4. EKG showing a normal sinus rhythm. She weighs over the inferior leads and inferior leads suggestive of sepsis/inferior infarct. No ST segment elevation or depression. Currently, the patient is on BiPAP for respiratory support at a pressure of 12/6 with an FiO2 of 60%. The patient is also receiving IV Lasix 40 mg every 12 hours. On today's evaluation of 01/22/2020 the patient is in the intensive care unit. Note that overnight the patient's sister status decompensated. She failed BiPAP therapy. She became progressively more tachypneic and unresponsive. She was moved to the intensive care unit where she was intubated and she was placed on a mechanical ventilator. This morning she assist-control mode at the rate of 20 with a tidal volume of 450 and FiO2 of 80% and a PEEP of 5. The blood gases from today showed a pH of 7.51 with a pCO2 of 35 and pO2 of 109. The patient has no significant orotracheal secretions. The chest x-ray from today showing pulmonary edema with bilateral pleural effusions. Urine output is in order of 30-40 mL an hour. The patient is currently on norepinephrine infusion which is running at 0.1 g per KG per minute. The patient has no fever. The patient is in sinus rhythm. A repeat echocardiogram was done today. Creatinine is stable at 1.6. No significant leukocytosis. Note that, I talked to the family again. Based on the reported formation, the patient had his AV of vancomycin-induced skin rash with some skin sloughing approximately 2 months ago for which she was hospitalized in early hospital and she was treated and she was discharged home. She has stage II small 3 wounds on her coccyx. No other significant events overnight. She is was sedated with propofol which is running at 50 g per KG per minute. On 01/23/2020 on seeing the patient in intensive care unit for a follow-up. This morning the patient is sedated with propofol and she is at 40 g per minute. She is well sedated and she is calm and comfortable. She is on a mechanical ventilator. She is on assist control mode at the rate of 20 with tidal volume of 400 and FiO2 of 40% and a PEEP of 5. Earlier this morning at around 4 AM, the patient encountered desaturation and the blood gases was done at that time showed a pH of 7.39 with a pCO2 of 42 and pO2 of 58. Based on that, the patient was brought up to an FiO2 of 100% and a PEEP was brought up to 10. Her pulse ox improved and she is at 100% right now and we were able to wean her down to 80%. A CAT scan of the chest was done yesterday showed bilateral pleural effusions, compressive atelectasis in lung bases and interstitial edema consistent with fluid overload. She was getting Lasix 40 mg IV push every 12 hours and her urine output is ranging between 5-30 mL an hour. Norepinephrine i nfusion is running at 0.1 g per KG her minutes for hemodynamic support. Her most recent systolic blood pressure is 106 with a mean of 66. The chest x-ray from today shows pulmonary edema and there is worsening consolidation of the left compared to the right which obviously raises the concern for an underlying pneumonia. The pro-calcitonin level was 0.33 and the patient was covered with IV Zosyn. She is afebrile for now. The white cell count is at 14.3. She is on enteral feeding for nutritional support and she is receiving vital high protein at the rate of 40 mL an hour. Hemoglobin stable at 7.9. Family is at the bedside and I updated them on her condition. She is still undergoing full medical support at this point in time. On 01/24/2020 I'm seeing the patient for a follow-up. She is currently on a 40 mics of propofol. She is well sedated for now. A sedation holiday will be given to her today. In terms of her breathing, she remains on a mechanical ventilator on assist control mode at the rate of 20 with a tidal volume of 400 and FiO2 of 50% with a PEEP of 10. Her blood gases from this morning showed improvement in oxygenation. Her pH was at 7.42 with a pCO2 of 42 and pO2 of 162. Chest x-ray shows improvement in the left lung consolidation and in the volume overload. The patient still has some bilateral pleural effusions. Hemodynamically, she is doing better. She is down to 0.1 mics of norepinephrine infusion. Urine output is in order of 20-40 mL an hour. She is in a negative fluid balance for now as she is mobilizing the fluids. The bronchoscopy was d one and the bronchioloalveolar lavage has not yielded any significant microbial growth. She is currently on a combination of Zosyn and Zyvox. She is afebrile. She is tolerating his tube feeds which is in the form of vital AF. No fever. No other significant events overnight. She remains in a normal sinus rhythm for now. Objective - Vital Signs Vital signs: Vital Signs Temp 97.9 F 01/24/20 08:00 Pulse 89 01/24/20 11:08 Resp 24 01/24/20 10:30 BP 107/45 01/24/20 10:00 Pulse Ox 100 01/24/20 10:30 Intake & Output 01/23/20 01/24/20 01/24/20 18:59 06:59 18:59 Intake Total 707.255 661.923 278 Output Total 390 1420 410 Balance 317.255 -758.077 -132 Weight 77.1 kg Intake: IV 280 274 164 0.9 180 120 40 Piperacillin-Tazobactam 3 100 100 100 .375 gm In Sodium Chloride 0.9% 100 ml @ 25 mls/hr IVPB Q12HR [facility] Rx #:[id number] pressure bag 54 24 Intake, IV Titration 357.255 201.923 100 Amount Norepinephrine 32 mg In 22.922 50.330 Sodium Chloride 0.9% 218 ml @ 0.05 MCG/KG/MIN 1. 821 mls/hr IV .Q24H [facility] Rx#:[id number] Norepinephrine 4 mg In 134.566 Sodium Chloride 0.9% 250 ml @ 0.05 MCG/KG/MIN 18. 383 mls/hr IV .[id number] [facility] Rx#:[id number] Potassium Chloride 20 meq 100 In Water For Injection 1 100ml.bag @ 50 mls/hr IVPB Q2H [facility] Rx#: [id number] Propofol 1,000 mg In 199.767 151.593 Empty Bag 1 bag @ Titrate IV .Q0M [facility] Rx#: [id number] Tube Feeding 70 126 14 Other 60 Output: Urine 390 1420 410 Other: Voiding Method Indwelling Catheter Indwelling Catheter ABP, PAP, CO, CI - Last Documented Arterial Blood Pressure 109/37 - Exam Intubated on mechanical ventilator. Orogastric and orotracheal tube are both in place and the patient is well sedated. Head exam was generally normal. There was no scleral icterus or corneal arcus. Mucous membranes were moist. Neck was supple and without jugular venous distension, thyromegaly, or carotid bruits. Carotids were easily palpable bilaterally. There was no adenopathy. Lungs sounds are diminished bilaterally along with crackles in the lung bases. Heart sounds are irregular, this systolic ejection murmur grade 4/6 heard throughout the precordium mainly in the apex and radiating to the neck bilaterally. Abdominal exam revealed normal bowel sounds. The abdomen was soft, non-tender, and without masses, organomegaly, or appreciable enlargement of the abdominal aorta. Examination of the extremities revealed easily palpable radial, femoral and pedal pulses. There was no cyanosis, clubbing or edema. Examination of the skin shows 3 stage II sacral decub ulcerations. Neurologically the patient has been sedated and she is calm and comfortable. No focal neurological deficits. She withdraws to painful stimulation. - Labs CBC & Chem 7: 01/24/20 05:10 01/24/20 05:10 Labs: Abnormal Lab Results - Last 24 Hours (Table) 01/21/20 01/23/20 01/23/20 Range/Units 10:34 02:29 04:40 RBC (3.80-5.40) m/uL Hgb (11.4-16.0) gm/dL Hct (34.0-46.0) % RDW (11.5-15.5) % Neutrophils # (1.3-7.7) k/uL ABG pO2 50 L* 58 L* (83-108) mmHg ABG HCO3 (21-25) mmol/L ABG Total CO2 (19-24) mmol/L ABG O2 Saturation (94-97) % Potassium (3.5-5.1) mmol/L Chloride (98-107) mmol/L BUN (7-17) mg/dL Creatinine (0.52-1.04) mg/dL Glucose (74-99) mg/dL POC Glucose (mg/dL) (75-99) mg/dL Calcium (8.4-10.2) mg/dL RBC Folate 1,278 H (280 - 791) ng/mL 01/23/20 01/23/20 01/23/20 Range/Units 11:58 17:38 23:20 RBC (3.80-5.40) m/uL Hgb (11.4-16.0) gm/dL Hct (34.0-46.0) % RDW (11.5-15.5) % Neutrophils # (1.3-7.7) k/uL ABG pO2 (83-108) mmHg ABG HCO3 (21-25) mmol/L ABG Total CO2 (19-24) mmol/L ABG O2 Saturation (94-97) % Potassium (3.5-5.1) mmol/L Chloride (98-107) mmol/L BUN (7-17) mg/dL Creatinine (0.52-1.04) mg/dL Glucose (74-99) mg/dL POC Glucose (mg/dL) 131 H 184 H 191 H (75-99) mg/dL Calcium (8.4-10.2) mg/dL RBC Folate (280 - 791) ng/mL 01/24/20 01/24/20 01/24/20 Range/Units 05:05 05:10 05:10 RBC 2.57 L (3.80-5.40) m/uL Hgb 8.0 L (11.4-16.0) gm/dL Hct 25.6 L (34.0-46.0) % RDW 17.3 H (11.5-15.5) % Neutrophils # 8.0 H (1.3-7.7) k/uL ABG pO2 162 H (83-108) mmHg ABG HCO3 27 H (21-25) mmol/L ABG Total CO2 28 H (19-24) mmol/L ABG O2 Saturation 99.4 H (94-97) % Potassium 2.8 L (3.5-5.1) mmol/L Chloride 109 H (98-107) mmol/L BUN 35 H (7-17) mg/dL Creatinine 1.22 H (0.52-1.04) mg/dL Glucose 146 H (74-99) mg/dL POC Glucose (mg/dL) (75-99) mg/dL Calcium 7.1 L (8.4-10.2) mg/dL RBC Folate (280 - 791) ng/mL 01/24/20 Range/Units 05:13 RBC (3.80-5.40) m/uL Hgb (11.4-16.0) gm/dL Hct (34.0-46.0) % RDW (11.5-15.5) % Neutrophils # (1.3-7.7) k/uL ABG pO2 (83-108) mmHg ABG HCO3 (21-25) mmol/L ABG Total CO2 (19-24) mmol/L ABG O2 Saturation (94-97) % Potassium (3.5-5.1) mmol/L Chloride (98-107) mmol/L BUN (7-17) mg/dL Creatinine (0.52-1.04) mg/dL Glucose (74-99) mg/dL POC Glucose (mg/dL) 160 H (75-99) mg/dL Calcium (8.4-10.2) mg/dL RBC Folate (280 - 791) ng/mL Microbiology - Last 24 Hours (Table) 01/21/20 21:25 Gram Stain - Final Sputum Sputum Culture - Final 01/21/20 01:58 Blood Culture - Preliminary Blood No Growth after 72 hours 01/23/20 09:30 Acid Fast Bacilli Smear - Final Bronchoalviolar Lavage - Right Acid Fast Bacilli Culture - Preliminary 01/23/20 09:30 Gram Stain - Preliminary Bronchoalviolar Lavage - Right Bronchial Washings Culture - Preliminary 01/23/20 09:30 Fungal Culture - Preliminary Bronchoalviolar Lavage - Right Assessment and Plan Plan: 1 acute hypoxic respiratory failure secondary to acute CHF exacerbation with a component of pulmonary edema and bilateral pleural effusions. The patient remains intubated on a mechanical ventilator. She is on broad-spectrum antibiotics. Chest x-ray shows marked improvement. Blood gas also shows marked improvement. The FiO2 can be weaned down. The PEEP can be weaned down. She is on a combination of Zyvox and Zosyn. The cultures from the bronchioloalveolar lavage is still pending. The patient is producing adequate amount of urine output as the patient is being diuresed with IV Lasix. There is an also further improvement in the renal function. 2 acute non-ST segment elevation myocardial infarction with elevated troponins modest troponin peaked at 1.4 3 multivessel coronary artery disease with previous stenting of the LAD and subsequent stenting of the left main that was done in March 2019 with the use of a Impella device. The patient has segmental wall motion abnormalities. The underlying ejection fraction is no other of 35%. 4 CHF with an ejection fraction of 35%, she had a component of pulmonary edema 5 Moderate to severe mitral regurgitation and aortic stenosis 6 history of CVA/TIA 7 diabetes mellitus 8 previous bouts of GI bleed 9 chronic stage III kidney disease creatinine , creatinine is down to 1.2. 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 The EGD that was done showed mild gastritis without evidence of an acute bleeding. The patient colonoscopy that showed no evidence of any acute bleeding and the patient had pandiverticulosis. 16 acute hypoxic respiratory failure intubated on a mechanical ventilator. 17 stage II sacral decubitus ulceration. Plan Continue vent support, Drop the FiO2 down to 40%. Drop the PEEP down to 8 and later around 6 and the pulse ox remains above 95%. Continued IV Lasix Continue pressors for hemodynamic support Awaiting the results from the bronchioloalveolar lavage. Put the patient on Zyvox 600 mg IV every 12 hours and continue the Zosyn for now. Enteral feeding for nutritional support Sedation holiday Restart propofol at a lower rate to give the patient a gentle sedation Wound care will continue to follow. Condition is critical and this evaluation was done and more than 30 minutes. Condition is critical. The patient is receiving enteral feeding for nutritional support. We'll continue to follow. Time with Patient: Greater than 30
[2020-01-24 11:52] LABS: Glucose,Whole Blood 147 mg/dL (75-99)
--- NOTE | 2020-01-24 14:04 | P.PN ---
Subjective Progress Note Date: 01/24/20 This is an 89-year-old female patient of Dr. Sales with known medical history of chronic systolic heart failure and ischemic cardiomyopathy with known ejection fraction 35-40%, severe mitral regurgitation, moderate aortic stenosis, hypertension, chronic kidney disease stage III, type 2 diabetes, Alzheimer's dementia, coronary artery disease status post PCI to the left main and LAD in 2018, hypertension, hyperlipidemia, recurrent depression. Patient is currently living at home with her daughter. She was recently at [facility] for subacute rehab. 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 After patient was discharged to [place], she went to [facility] had increased edema to the arms and legs for which Lasix was on a 20 g twice daily. This was eventually decreased to every day. She was also on Nepro supplement. Patient has had increasing shortness of breath. She was utilizing 1-1-1/2 L of oxygen at home and normally pulse oxing 90-96%. Daughter gradually increase this until she was up to 5 L of oxygen yesterday and then called EMS. Patient normally is ambulatory with a walker with assistance. She needs help with feeding. Patient has been under increased stress especially the last 3 days as a daughter on December 24. At the time of this evaluation, patient is on BiPAP. She is able to answer some simple questions, most of the history is obtained from the patient's daughter. Patient was brought into [facility] emergency center for evaluation. WBC 13.7, hemoglobin 8.4, platelets 436, sodium 134, potassium 4.1, creatinine 1.56 with a GFR of 30, lactic acid on admission 4. 5 repeat 1.8, magnesium 2.4, troponin 0.921 and repeat 1.440, and NT proBNP 71,100, TSH 2.570. EKG sinus rhythm with ST depression in anterior lateral leads, chronic when compared to old EKGs. Patient has been afebrile, heart rate 69, respiratory rate 26, pulse ox 92% on BiPAP, blood pressure 131/68. Chest x-ray shows congestive heart failure pulmonary edema compared to old exam. Pleural effusions new. Patient has been admitted to the cardiac stepdown unit and consults with pulmonary medicine and cardiology. 01/21: Yesterday afternoon, patient developed increasing shortness of breath while on BiPAP 60% FiO2. Pulse ox dropped down 88%. Chest x-ray was ordered which revealed congestive heart failure pulmonary edema. Edema appears improved comp ared to exam earlier today. Patient was given IV Lasix 40 mg and Xanax and Sunshine catheter was placed. Nursing clarified CODE STATUS is full code. Patient was moved into intensive care unit and intubated and placed on mechanical ventilation. Patient remains intubated and on mechanical ventilation with tidal volume 400, FiO2 50, PEEP 5. OG tube in place with bile/brown return. Patient has been afebrile, heart rate 75, blood pressure 118/47. Repeat blood work reveals WBC 13.8, hemoglobin 7.8, electrolytes within normal limits. BUN 47 creatinine 1.62, blood glucose running between 187 and 230. Cortisol level greater than 123 and hydrocortisone discontinued. Blood culture reveals no growth at 24 hours. Urine culture in progress. Zosyn was added for prophylaxis by Dr. Samano, no clear pneumonia. Echocardiogram reveals EF 35-40%, mild aortic regurgitation, moderate to severe aortic stenosis, moderate to severe mitral regurgitation, mild tricuspid regurgitation. 01/22: Patient remains in intensive care unit intubated and on mechanical ventilation. Tidal volume 400, FiO2 80 and PEEP of 10. Patient had a very rough night with a drop in her temperature, drop in her blood pressure and pulse ox. She was placed on 100% oxygen and Levophed was increased to 20 mics. CAT scan of the chest was done last evening which reveals suspect fluid overload state as there is new mild to moderate diffuse soft tissue anasarca most prominent over the visualized upper abdomen. There is small to moderate-sized bilateral pleural effusions and fairly moderate left greater than right central alveolar edema. Underlying infiltrates not excluded particularly in the left lung. Patient has been afebrile, heart rate 106, blood pressure 117/71. Repeat blood work reveals WBC 14.3, hemoglobin 7.9, platelet count 398. Potassium 3.2 and his been replaced, BUN 46 and creatinine 1.56. Blood sugar 149. Pro- calcitonin was 0.33. Chest x-ray this morning reveals worsening airspace disease. Correlate for congestive heart failure with pulmonary edema, pneumonia with associated effusions. This morning, patient underwent a flexible bronchoscopy and BAL of the left upper lobe and no significant abnormalities were seen. No foreign bodies, lesions, significant secretions. Dr. Samano has added and Zyvox today to cover MRSA as she has a history and patient is also on IV Zosyn. Patient received a dose of Ferrlecit yesterday. Patient has been started on tube feedings. Patient has had urine output of less than 10 mL/h currently at 20 after IV Lasix. Repeat echocardiogram was done. CVP is 5-8. Discussed with the patient's daughter current condition and at this time, chest ultrasound will be delayed until patient is off the ventilator. Patient's daughter has discussed with her brother the patient's CODE STATUS and agreed to make her no code. Plan is to continue aggressive treatment but if patient's heart stops no CPR. 01/23: Patient remains intubated and on mechanical ventilation with tidal volume 400, FiO2 of 50 and PEEP of 8. Urine output has significantly improved. She is on more levo fed today. She is on tube feedings at 14 mL per hour. No bowel movement. Repeat chest x-ray shows improvement in aeration. There may be basilar effusions and associated atelectasis versus pneumonia, edema. Coronary artery disease. Patient has been afebrile, heart rate 85, blood pressure currently 116/57. Repeat lab work reveals WBC 10.3, hemoglobin 8, platelet count 812. Sodium 141, potassium 2.8 has been replaced, chloride 109, CO2 26, BUN 35 and creatinine 1.22. Blood sugars running between 146 and 191. Bronchial wash cytology and cultures are pending. Patient is continued on Zyvox and Zosyn. Patient is to have a sedation holiday today. Dr. Farmer has increased Lasix to 60 mg IV twice daily Objective - Vital Signs Vital signs: Vital Signs Temp 97.9 F 01/24/20 08:00 Pulse 89 01/24/20 11:08 Resp 24 01/24/20 10:30 BP 107/45 01/24/20 10:00 Pulse Ox 100 01/24/20 10:30 Intake & Output 01/23/20 01/24/20 01/24/20 18:59 06:59 18:59 Intake Total 707.255 661.923 278 Output Total 390 1420 410 Balance 317.255 -758.077 -132 Weight 77.1 kg Intake: IV 280 274 164 0.9 180 120 40 Piperacillin-Tazobactam 3 100 100 100 .375 gm In Sodium Chloride 0.9% 100 ml @ 25 mls/hr IVPB Q12HR [facility] Rx #:[id number] pressure bag 54 24 Intake, IV Titration 357.255 201.923 100 Amount Norepinephrine 32 mg In 22.922 50.330 Sodium Chloride 0.9% 218 ml @ 0.05 MCG/KG/MIN 1. 821 mls/hr IV .Q24H [facility] Rx#:[id number] Norepinephrine 4 mg In 134.566 Sodium Chloride 0.9% 250 ml @ 0.05 MCG/KG/MIN 18. 383 mls/hr IV .[id number] [facility] Rx#:[id number] Potassium Chloride 20 meq 100 In Water For Injection 1 100ml.bag @ 50 mls/hr IVPB Q2H [facility] Rx#: [id number] Propofol 1,000 mg In 199.767 151.593 Empty Bag 1 bag @ Titrate IV .Q0M [facility] Rx#: [id number] Tube Feeding 70 126 14 Other 60 Output: Urine 390 1420 410 Other: Voiding Method Indwelling Catheter Indwelling Catheter ABP, PAP, CO, CI - Last Documented Arterial Blood Pressure 109/37 - Exam Review of Systems unable to obtain due to intubation Gen: This is an 89-year-old female. Patient is lying in ICU bed. She is intubated and on mechanical ventilation. Patient appears to be comfortable today in no acute distress. HEENT: Head is atraumatic, normocephalic. Pupils equal, round. Sclerae is anicteric. Oral mucous membranes are moist. ET and gastric tube in place orally. [address] NECK: Supple. No JVD. No lymphadenopathy. No thyromegaly. LUNGS: Diminished in the bases with crackles bilaterally to the bases. No intercostal retractions. HEART: Regular rate and rhythm. Systolic murmur. ABDOMEN: Soft. Bowel sounds are present. No masses. No tenderness. Sunshine catheter with dark shiv output. EXTREMITIES: Trace bilateral lower extremity and upper extremity edema. No calf tenderness. Dorsalis pedis +2 bilaterally. NEUROLOGICAL: Patient is sedated - Labs CBC & Chem 7: 01/24/20 05:10 01/24/20 05:10 Labs: Abnormal Lab Results - Last 24 Hours (Table) 01/21/20 01/23/20 01/23/20 Range/Units 10:34 02:29 04:40 RBC (3.80-5.40) m/uL Hgb (11.4-16.0) gm/dL Hct (34.0-46.0) % RDW (11.5-15.5) % Neutrophils # (1.3-7.7) k/uL ABG pO2 50 L* 58 L* (83-108) mmHg ABG HCO3 (21-25) mmol/L ABG Total CO2 (19-24) mmol/L ABG O2 Saturation (94-97) % Potassium (3.5-5.1) mmol/L Chloride (98-107) mmol/L BUN (7-17) mg/dL Creatinine (0.52-1.04) mg/dL Glucose (74-99) mg/dL POC Glucose (mg/dL) (75-99) mg/dL Calcium (8.4-10.2) mg/dL RBC Folate 1,278 H (280 - 791) ng/mL 01/23/20 01/23/20 01/23/20 Range/Units 11:58 17:38 23:20 RBC (3.80-5.40) m/uL Hgb (11.4-16.0) gm/dL Hct (34.0-46.0) % RDW (11.5-15.5) % Neutrophils # (1.3-7.7) k/uL ABG pO2 (83-108) mmHg ABG HCO3 (21-25) mmol/L ABG Total CO2 (19-24) mmol/L ABG O2 Saturation (94-97) % Potassium (3.5-5.1) mmol/L Chloride (98-107) mmol/L BUN (7-17) mg/dL Creatinine (0.52-1.04) mg/dL Glucose (74-99) mg/dL POC Glucose (mg/dL) 131 H 184 H 191 H (75-99) mg/dL Calcium (8.4-10.2) mg/dL RBC Folate (280 - 791) ng/mL 01/24/20 01/24/20 01/24/20 Range/Units 05:05 05:10 05:10 RBC 2.57 L (3.80-5.40) m/uL Hgb 8.0 L (11.4-16.0) gm/dL Hct 25.6 L (34.0-46.0) % RDW 17.3 H (11.5-15.5) % Neutrophils # 8.0 H (1.3-7.7) k/uL ABG pO2 162 H (83-108) mmHg ABG HCO3 27 H (21-25) mmol/L ABG Total CO2 28 H (19-24) mmol/L ABG O2 Saturation 99.4 H (94-97) % Potassium 2.8 L (3.5-5.1) mmol/L Chloride 109 H (98-107) mmol/L BUN 35 H (7-17) mg/dL Creatinine 1.22 H (0.52-1.04) mg/dL Glucose 146 H (74-99) mg/dL POC Glucose (mg/dL) (75-99) mg/dL Calcium 7.1 L (8.4-10.2) mg/dL RBC Folate (280 - 791) ng/mL 01/24/20 Range/Units 05:13 RBC (3.80-5.40) m/uL Hgb (11.4-16.0) gm/dL Hct (34.0-46.0) % RDW (11.5-15.5) % Neutrophils # (1.3-7.7) k/uL ABG pO2 (83-108) mmHg ABG HCO3 (21-25) mmol/L ABG Total CO2 (19-24) mmol/L ABG O2 Saturation (94-97) % Potassium (3.5-5.1) mmol/L Chloride (98-107) mmol/L BUN (7-17) mg/dL Creatinine (0.52-1.04) mg/dL Glucose (74-99) mg/dL POC Glucose (mg/dL) 160 H (75-99) mg/dL Calcium (8.4-10.2) mg/dL RBC Folate (280 - 791) ng/mL Microbiology - Last 24 Hours (Table) 01/21/20 21:25 Gram Stain - Final Sputum Sputum Culture - Final 01/21/20 01:58 Blood Culture - Preliminary Blood No Growth after 72 hours 01/23/20 09:30 Acid Fast Bacilli Smear - Final Bronchoalviolar Lavage - Right Acid Fast Bacilli Culture - Preliminary 01/23/20 09:30 Gram Stain - Preliminary Bronchoalviolar Lavage - Right Bronchial Washings Culture - Preliminary 01/23/20 09:30 Fungal Culture - Preliminary Bronchoalviolar Lavage - Right Assessment and Plan Plan: 1. Acute hypoxic respiratory failure secondary to acute on chronic systolic heart failure with bilateral pleural effusions, POA with severe hypotension requiring vasopressors. Consult with cardiology appreciated. Pulmonary medicine also on consult. Patient is now intubated and on mechanical ventilation. Continue Lasix increased to 60 mg IV twice daily, monitor I&O and daily weights, monitor renal function and electrolytes. Echocardiogram as above. Zosyn and Zyvox in place. No sign of pneumonia. Bilateral pleural effusions to be further evaluated once patient is extubated. Pleural effusions are improving. 2. Acute non-ST elevated myocardial infarction. Cardiology is on consult. 3. History of coronary artery disease status post PCI of the left main in March 2019. Continue aspirin 81 mg daily, Lipitor 10 mg daily, Plavix 75 mg daily, off Imdur 60 mg daily, continue Lopressor 25 mg twice daily. 4. Ischemic cardiomyopathy. Continue as in #1. 5. Hypertension. Continue Lasix,. Hydralazine, Norvasc discontinued. 6. Hyperlipidemia. Continue statin 7. Diabetes mellitus type 2. Continue NovoLog scale before meals and at bedtime. Off Prandin 0.5 mg twice daily, Tradjenta 5 mg daily. 8. Alzheimer's dementia. Hold galantamine. 9. Acute kidney injury with chronic kidney disease stage II. Patient has been oliguric overnight, continue Lasix 40 mg IVP twice daily. 10. Recurrent depression. 11. Valvular heart disease with moderate to severe aortic stenosis and severe mitral regurgitation, mild tricuspid regurgitation. 12. Anemia with history of acute blood loss GI bleed anemia that had recovered in November and December with hemoglobin of 13.6. Iron studies, stool for occult blood. Ferrlecit 1 CODE STATUS: No code. Okay to continue aggressive treatment otherwise. Discharge plan: To be determined. PT and OT will be added once patient stabilizes. Impression and plan of care have been directed as dictated by the signing physician. Donita Padron nurse practitioner acting as scribe for signing physician.
--- NOTE | 2020-01-24 14:58 | PN ---
PROGRESS NOTE Patient is seen for followup for acute kidney injury mainly cardiorenal. She is currently being diuresed. Renal function continues to improve. Lasix is currently at 60 mg q.12 hours. PHYSICAL EXAMINATION: This morning, patient is on the vent. She is sedated, blood pressure 107/45, heart rate of about 85 per minute. Patient is afebrile, examination of the heart S1, S2. Examination of lungs, decreased breath sounds at bases. Abdomen is soft. Examination of lower extremities shows 1+ edema. The [employer] exam cannot be performed. LABS: Show sodium hemoglobin 8.0, sodium 141, potassium 2.8, chloride 109, CO2 is 26, BUN 35, creatinine 1.2. ASSESSMENT: 1. Acute kidney injury, cardiorenal, currently improving. 2. Hypokalemia secondary to diuresis, status post replacement. 3. Congestive heart failure, acute on top of chronic, mainly systolic. 4. Status post acute non ST elevation myocardial infarction. 5. Cardiomyopathy, ejection fraction 35%. 6. Hypoxic respiratory failure secondary to congestive heart failure, currently on the vent. 7. 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 8. Moderate to severe mitral regurgitation with aortic stenosis. PLAN: Continue to diurese patient. Replace potassium. Check magnesium. Continue current dose of Lasix. MMODL / IJN: [id number] /
[2020-01-24 18:06] LABS: Glucose,Whole Blood 184 mg/dL (75-99)
[2020-01-24] MEDS: NOREPINEPHRINE 32 MG in SODIUM CHLORIDE 0.9% 218 ML IV SCH (20:44)
[2020-01-24 23:33] LABS: Glucose,Whole Blood 202 mg/dL (75-99)
[2020-01-25] MEDS ORDERED: POTASSIUM BICARBONATE/CIT AC 20 MEQ TABLET.EFF NG-TUBE SCH
[2020-01-25] MEDS: IPRATROPIUM-ALBUTEROL 3 ML NEB INHALATION SCH ×6 (03:10→23:34)
[2020-01-25] MEDS: PROPOFOL 1,000 MG in EMPTY BAG 1 BAG IV SCH (03:28)
[2020-01-25] MEDS: SODIUM CHLORIDE 0.9% 500 ML 500 ML IV SCH (03:29)
[2020-01-25 04:27] LABS: Anisocytosis Slight; HCT 25.8 % (34.0-46.0); HGB 7.9 gm/dL (11.4-16.0); Hypochromasia Slight; MCH 30.8 pg (25.0-35.0); MCHC 30.7 g/dL (31.0-37.0); MCV 100.4 fL (80.0-100.0); Macrocytosis Slight; Mean Platelet Volume 8.4; Platelet Count 325 k/uL (150-450); RBC 2.57 m/uL (3.80-5.40); RDW 17.5 % (11.5-15.5); WBC 8.4 k/uL (3.8-10.6)
[2020-01-25 04:49] LABS: Calcium 7.2 mg/dL (8.4-10.2)
[2020-01-25 05:17] LABS: ABG Base Excess 5.6 mmol/L; ABG HCO3 30 mmol/L (21-25); ABG Oxygen Saturation 99.5 % (94-97); ABG PCO2 43 mmHg (35-45); ABG PH 7.45 (7.35-7.45); ABG PO2 132 mmHg (83-108); ABG TCO2 31 mmol/L (19-24); Allen Test Performed? Yes
[2020-01-25 06:08] LABS: Glucose,Whole Blood 193 mg/dL (75-99)
[2020-01-25] MEDS: INSULIN ASPART (NovoLOG) 100 UNIT/ML VIAL SQ SCH ×3 (06:10→18:01)
[2020-01-25] MEDS: MIDODRINE 5 MG TAB PO SCH ×3 (06:58→17:00)
--- NOTE | 2020-01-25 07:59 | PN ---
PROGRESS NOTE Mrs. Mcclain is a 89-year-old female with known history of valvular disease, history of stenting of the LAD and left main, who presented with progressive dyspnea and pneumonia and requiring mechanical ventilation. She underwent bronchoscopy with lavage 2 days ago. She remains intubated. She is off sedation. Hemodynamically, she is stable. She has good urine output. She is in sinus mechanism. There is no evidence of malignant arrhythmia. She is being evaluated for possible weaning today. She continues on aspirin once a day, Lipitor 10 mg daily, Plavix 75 mg daily, Lasix 60 mg IV q.12 hours, isosorbide mononitrate 60 mg daily, metoprolol tartrate 25 mg twice a day, midodrine 10 mg 3 times a day. PHYSICAL EXAMINATION: Blood pressure 114/70 with a heart rate in the 70s. LUNGS: Clear anteriorly, no wheezes. HEART: Regular rate and rhythm, S1, S2. No S3 with systolic ejection murmur 2/6 heard at the base. No diastolic murmur, no rub. ABDOMEN: Soft. Positive bowel sounds, no organomegaly. EXTREMITIES: No edema. LAB DATA: Revealed a hemoglobin of 7.9, BUN and creatinine 26 and 1.01, potassium 4.0, pH of 7.45 and PO2 of 132. IMPRESSION: 1. Respiratory failure with pneumonia, remains on mechanical ventilation. 2. History of coronary artery disease, status post stenting of the LAD in the left main. 3. Aortic valve disease. 4. Renal failure, resolved. 5. Anemia. 6. History of cardiomyopathy. 7. Diabetes mellitus. RECOMMENDATION: From the cardiac standpoint, will continue on the present therapy. I am hopeful that we can wean her and extubate her today. Will continue the rest of the medical regimen and depending on her progress, further recommendation will be to made. MMODL / IJN: [id number] /
[2020-01-25] MEDS: LINEZOLID 600 MG in DEXTROSE/WATER 1 300ML.BAG IVPB SCH ×2 (08:03→20:28)
[2020-01-25] MEDS: HEPARIN SODIUM,PORCINE 5,000 UNIT/ML 1 ML VIAL SQ SCH ×2 (08:03→17:00)
[2020-01-25] MEDS: PIPERACILLIN-TAZOBACTAM 3.375 GM in SODIUM CHLORIDE 0.9% 100 ML IVPB SCH ×2 (08:03→17:00)
[2020-01-25] MEDS: FUROSEMIDE 10 MG/ML 10 ML VIAL IV SCH ×2 (08:04→20:28)
[2020-01-25] MEDS: METOPROLOL TARTRATE 25 MG TAB PO SCH ×2 (08:04→20:29)
[2020-01-25] MEDS: PANTOPRAZOLE 40 MG/10 ML VIAL IV SCH (08:04)
[2020-01-25] MEDS: ASPIRIN 81 MG PO SCH (08:04)
[2020-01-25] MEDS: ATORVASTATIN 10 MG TAB PO SCH (08:04)
[2020-01-25] MEDS: ISOSORBIDE MONONITRATE ER 60 MG TAB.ER.24H PO SCH (08:05)
[2020-01-25] MEDS: CLOPIDOGREL 75 MG TAB PO SCH (08:05)
--- NOTE | 2020-01-25 09:39 | P.PN ---
Subjective Progress Note Date: 01/25/20 89-year-old female patient with known history of CAD and CHF with an ejection fraction of 55-40% and history of valvular heart disease with severe MR and severe TR along with other comorbidities such as hypertension and hyperlipidemia and diabetes mellitus. The patient came into the hospital because of worsening shortness of breath. Her chest x-ray shows cardiomegaly and pulmonary edema and possibly some bilateral pleural effusion. Her shortness of breath developed 4 days ago and progressively got worse. She also had some increased cough and congestion either to bring up much sputum. No fever or chills. The influenza screen was negative. ProBNP level was 71,000. Troponin peaked at 1.4. Her serum lactate was at one 0.8. Creatinine is at 1.5 with a white second of 13.7 and a hemoglobin of 8.4. EKG showing a normal sinus rhythm. She weighs over the inferior leads and inferior leads suggestive of sepsis/inferior infarct. No ST segment elevation or depression. Currently, the patient is on BiPAP for respiratory support at a pressure of 12/6 with an FiO2 of 60%. The patient is also receiving IV Lasix 40 mg every 12 hours. On today's evaluation of 01/22/2020 the patient is in the intensive care unit. Note that overnight the patient's sister status decompensated. She failed BiPAP therapy. She became progressively more tachypneic and unresponsive. She was moved to the intensive care unit where she was intubated and she was placed on a mechanical ventilator. This morning she assist-control mode at the rate of 20 with a tidal volume of 450 and FiO2 of 80% and a PEEP of 5. The blood gases from today showed a pH of 7.51 with a pCO2 of 35 and pO2 of 109. The patient has no significant orotracheal secretions. The chest x-ray from today showing pulmonary edema with bilateral pleural effusions. Urine output is in order of 30-40 mL an hour. The patient is currently on norepinephrine infusion which is running at 0.1 g per KG per minute. The patient has no fever. The patient is in sinus rhythm. A repeat echocardiogram was done today. Creatinine is stable at 1.6. No significant leukocytosis. Note that, I talked to the family again. Based on the reported formation, the patient had his AV of vancomycin-induced skin rash with some skin sloughing approximately 2 months ago for which she was hospitalized in early hospital and she was treated and she was discharged home. She has stage II small 3 wounds on her coccyx. No other significant events overnight. She is was sedated with propofol which is running at 50 g per KG per minute. On 01/23/2020 on seeing the patient in intensive care unit for a follow-up. This morning the patient is sedated with propofol and she is at 40 g per minute. She is well sedated and she is calm and comfortable. She is on a mechanical ventilator. She is on assist control mode at the rate of 20 with tidal volume of 400 and FiO2 of 40% and a PEEP of 5. Earlier this morning at around 4 AM, the patient encountered desaturation and the blood gases was done at that time showed a pH of 7.39 with a pCO2 of 42 and pO2 of 58. Based on that, the patient was brought up to an FiO2 of 100% and a PEEP was brought up to 10. Her pulse ox improved and she is at 100% right now and we were able to wean her down to 80%. A CAT scan of the chest was done yesterday showed bilateral pleural effusions, compressive atelectasis in lung bases and interstitial edema consistent with fluid overload. She was getting Lasix 40 mg IV push every 12 hours and her urine output is ranging between 5-30 mL an hour. Norepinephrine i nfusion is running at 0.1 g per KG her minutes for hemodynamic support. Her most recent systolic blood pressure is 106 with a mean of 66. The chest x-ray from today shows pulmonary edema and there is worsening consolidation of the left compared to the right which obviously raises the concern for an underlying pneumonia. The pro-calcitonin level was 0.33 and the patient was covered with IV Zosyn. She is afebrile for now. The white cell count is at 14.3. She is on enteral feeding for nutritional support and she is receiving vital high protein at the rate of 40 mL an hour. Hemoglobin stable at 7.9. Family is at the bedside and I updated them on her condition. She is still undergoing full medical support at this point in time. On 01/24/2020 I'm seeing the patient for a follow-up. She is currently on a 40 mics of propofol. She is well sedated for now. A sedation holiday will be given to her today. In terms of her breathing, she remains on a mechanical ventilator on assist control mode at the rate of 20 with a tidal volume of 400 and FiO2 of 50% with a PEEP of 10. Her blood gases from this morning showed improvement in oxygenation. Her pH was at 7.42 with a pCO2 of 42 and pO2 of 162. Chest x-ray shows improvement in the left lung consolidation and in the volume overload. The patient still has some bilateral pleural effusions. Hemodynamically, she is doing better. She is down to 0.1 mics of norepinephrine infusion. Urine output is in order of 20-40 mL an hour. She is in a negative fluid balance for now as she is mobilizing the fluids. The bronchoscopy was d one and the bronchioloalveolar lavage has not yielded any significant microbial growth. She is currently on a combination of Zosyn and Zyvox. She is afebrile. She is tolerating his tube feeds which is in the form of vital AF. No fever. No other significant events overnight. She remains in a normal sinus rhythm for now. 01/25/2020 I'm seeing the patient for a follow-up. Note that yesterday, we'll discontinue the sedation and it took the patient at least 12 hours to get more awake and earlier this morning at around 4 AM he became quite restless. Based on that, she was placed back on sedation at 20 g of propofol. S1 discontinued 8:30 o'clock this morning. Upon stimulation she opens up her eyes pH is not following any commands yet. I'm hoping that we're going to see some more impr ovement in her level of alertness over the next few hours. She remains on assist control mode at the rate of 20 with an FiO2 of 40% and a PEEP was at 6 with a tidal volume of 400. The blood gas from this morning showed improved oxygenation. The pO2 is at 132 with a pH of 7.45 and a pCO2 of 43. Renal function continues to improve and the patient's creatinine is down to 1.01. The fluid balance is negative as the patient is being diuresed. The neck fluid balance has been approximately a liter negative over the past 24 hours. She remains on IV Lasix 40 mg every 12 hours. She is also on a combination of antibiotics including Zosyn and Zyvox. Pressors are still being utilized for blood pressure support. Norepinephrine infusion has been titrated down and is currently down to 0.03 g per KG per minute. The patient is also continuing to receive enteral feeding. Cardiac rhythm is sinus. She looks quite comfortable. She has a triple-lumen catheter in the left subclavian. CVP is still on the lower side. White cell count is not elevated. She is afebrile. The bronchioloalveolar lavage was collected earlier showed no microbial growth. Objective - Vital Signs Vital signs: Vital Signs Temp 98.7 F 01/25/20 04:00 Pulse 79 01/25/20 07:53 Resp 20 01/25/20 07:00 BP 113/58 01/25/20 07:00 Pulse Ox 100 01/25/20 07:00 Intake & Output 01/24/20 01/25/20 01/25/20 18:59 06:59 18:59 Intake Total 938.479 0818.092 42 Output Total 1310 1370 70 Balance -413.146 -247.908 -28 Weight 77.1 kg 76 kg Intake: IV 292 592 16 0.9 120 120 10 Linezolid 600 mg In 300 Dextrose/Water 1 300ml. bag @ 150 mls/hr IVPB Q12HR [facility] Rx#:[id number] Piperacillin-Tazobactam 3 100 100 .375 gm In Sodium Chloride 0.9% 100 ml @ 25 mls/hr IVPB Q12HR [facility] Rx #:[id number] pressure bag 72 72 6 Intake, IV Titration 550.854 128.092 Amount Linezolid 600 mg In 300 Dextrose/Water 1 300ml. bag @ 150 mls/hr IVPB Q12HR [facility] Rx#:[id number] Norepinephrine 32 mg In 50.854 28.092 Sodium Chloride 0.9% 218 ml @ 0.05 MCG/KG/MIN 1. 821 mls/hr IV .Q24H [facility] Rx#:[id number] Potassium Chloride 20 meq 200 In Water For Injection 1 100ml.bag @ 50 mls/hr IVPB Q2H [facility] Rx#: [id number] Propofol 1,000 mg In 100 Empty Bag 1 bag @ Titrate IV .Q0M [facility] Rx#: [id number] Tube Feeding 54 312 26 Other 90 Output: Urine 1310 1370 70 Other: Voiding Method Indwelling Catheter Indwelling Catheter ABP, PAP, CO, CI - Last Documented Arterial Blood Pressure 114/34 - Exam Intubated on mechanical ventilator. Orogastric and orotracheal tube are both in place and the patient is well sedated. Head exam was generally normal. There was no scleral icterus or corneal arcus. Mucous membranes were moist. Neck was supple and without jugular venous distension, thyromegaly, or carotid bruits. Carotids were easily palpable bilaterally. There was no adenopathy. Lungs sounds are diminished bilaterally along with crackles in the lung bases. Heart sounds are irregular, this systolic ejection murmur grade 4/6 heard throughout the precordium mainly in the apex and radiating to the neck bilaterally. Abdominal exam revealed normal bowel sounds. The abdomen was soft, non-tender, and without masses, organomegaly, or appreciable enlargement of the abdominal aorta. Examination of the extremities revealed easily palpable radial, femoral and pedal pulses. There was no cyanosis, clubbing or edema. Examination of the skin shows 3 stage II sacral decub ulcerations. Neurologically the patient has been sedated and she is calm and comfortable. No focal neurological deficits. She withdraws to painful stimulation. - Labs CBC & Chem 7: 01/25/20 04:15 01/25/20 04:15 Labs: Abnormal Lab Results - Last 24 Hours (Table) 01/24/20 01/24/20 01/24/20 Range/Units 11:50 18:05 23:30 RBC (3.80-5.40) m/uL Hgb (11.4-16.0) gm/dL Hct (34.0-46.0) % MCV (80.0-100.0) fL MCHC (31.0-37.0) g/dL RDW (11.5-15.5) % ABG pO2 (83-108) mmHg ABG HCO3 (21-25) mmol/L ABG Total CO2 (19-24) mmol/L ABG O2 Saturation (94-97) % Chloride (98-107) mmol/L BUN (7-17) mg/dL Glucose (74-99) mg/dL POC Glucose (mg/dL) 147 H 184 H 202 H (75-99) mg/dL Calcium (8.4-10.2) mg/dL 01/25/20 01/25/20 01/25/20 Range/Units 04:15 04:15 05:15 RBC 2.57 L (3.80-5.40) m/uL Hgb 7.9 L (11.4-16.0) gm/dL Hct 25.8 L (34.0-46.0) % MCV 100.4 H (80.0-100.0) fL MCHC 30.7 L (31.0-37.0) g/dL RDW 17.5 H (11.5-15.5) % ABG pO2 132 H (83-108) mmHg ABG HCO3 30 H (21-25) mmol/L ABG Total CO2 31 H (19-24) mmol/L ABG O2 Saturation 99.5 H (94-97) % Chloride 109 H (98-107) mmol/L BUN 26 H (7-17) mg/dL Glucose 163 H (74-99) mg/dL POC Glucose (mg/dL) (75-99) mg/dL Calcium 7.2 L (8.4-10.2) mg/dL 01/25/20 Range/Units 06:07 RBC (3.80-5.40) m/uL Hgb (11.4-16.0) gm/dL Hct (34.0-46.0) % MCV (80.0-100.0) fL MCHC (31.0-37.0) g/dL RDW (11.5-15.5) % ABG pO2 (83-108) mmHg ABG HCO3 (21-25) mmol/L ABG Total CO2 (19-24) mmol/L ABG O2 Saturation (94-97) % Chloride (98-107) mmol/L BUN (7-17) mg/dL Glucose (74-99) mg/dL POC Glucose (mg/dL) 193 H (75-99) mg/dL Calcium (8.4-10.2) mg/dL Microbiology - Last 24 Hours (Table) 01/21/20 01:58 Blood Culture - Preliminary Blood No Growth after 96 hours 01/23/20 09:30 Gram Stain - Preliminary Bronchoalviolar Lavage - Right Bronchial Washings Culture - Preliminary 01/21/20 21:25 Gram Stain - Final Sputum Sputum Culture - Final Assessment and Plan Plan: 1 acute hypoxic respiratory failure secondary to acute CHF exacerbation with a component of pulmonary edema and bilateral pleural effusions. The patient remains intubated on a mechanical ventilator. We'll continue the diuretics. We'll continue the antibiotics. Chest x-ray still showing CHF and bilateral pleural effusions. Findings are stable. The oxygenation is improved. PEEP is down to 6 and I'm going to drop it down to 5 with an FiO2 of 40%. Blood gases was reviewed. Continue antibiotics. 2 acute non-ST segment elevation myocardial infarction with elevated troponins modest troponin peaked at 1.4 3 multivessel coronary artery disease with previous stenting of the LAD and subsequent stenting of the left main that was done in March 2019 with the use of a Impella device. The patient has segmental wall motion abnormalities. The underlying ejection fraction is no other of 35%. 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 The EGD that was done showed mild gastritis without evidence of an acute bleeding. The patient colonoscopy that showed no evidence of any acute bleeding and the patient had pandiverticulosis. 16 acute hypoxic respiratory failure intubated on a mechanical ventilator. 17 stage II sacral decubitus ulceration. Plan Continue vent support, Drop the FiO2 down to 40%. Drop the PEEP down to 5 and the pulse ox remains above 95%. Continued IV Lasix Continue pressors for hemodynamic support Awaiting the results from the bronchioloalveolar lavage. The results thus far are negative. Put the patient on Zyvox 600 mg IV every 12 hours and continue the Zosyn for now. Enteral feeding for nutritional support Keep the patient off sedation and check weaning parameters once awake. I'm going to consider a spontaneous breathing trial if the weaning parameters are adequate for today. Her oxygenation is improved. His chest x-ray slowly improving. She is responding to diuresis. She is on less pressors. We'll continue to follow. I think she is on some progress. As long as she is able to arouse and she is able to do with weaning parameters she was dizzy of a spont aneous breathing trial. I may consider extubating him to have BiPAP at a later stage. Restart propofol at a lower rate to give the patient a gentle sedation Wound care will continue to follow. Condition is critical and this evaluation was done and more than 30 minutes. Condition is critical. The patient is receiving enteral feeding for nutritional support. We'll continue to follow. Time with Patient: Greater than 30
--- NOTE | 2020-01-25 09:42 | XR ---
EXAMINATION TYPE: XR chest 1V DATE OF EXAM: 01/25/2020 COMPARISON: 01/24/2020 HISTORY: Shortness of breath TECHNIQUE: Single frontal view of the chest is obtained. FINDINGS: Bilateral consolidation and pleural effusion. Central interstitial changes noted. Left-mellissa ed central line, ET tube and NG tube are again noted. Postsurgical change overlying the cervical spin e. No pneumothorax. IMPRESSION: 1. Stable pleural-parenchymal changes correlate for CHF, otherwise consider pneumonia.
[2020-01-25 13:01] LABS: Glucose,Whole Blood 157 mg/dL (75-99)
--- NOTE | 2020-01-25 16:04 | P.PN ---
Subjective Progress Note Date: 01/25/20 This is an 89-year-old female patient of Dr. Sales with known medical history of chronic systolic heart failure and ischemic cardiomyopathy with known ejection fraction 35-40%, severe mitral regurgitation, moderate aortic stenosis, hypertension, chronic kidney disease stage III, type 2 diabetes, Alzheimer's dementia, coronary artery disease status post PCI to the left main and LAD in 2018, hypertension, hyperlipidemia, recurrent depression. Patient is currently living at home with her daughter. She was recently at [facility] for subacute rehab. 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 After patient was discharged to [place], she went to [facility] had increased edema to the arms and legs for which Lasix was on a 20 g twice daily. This was eventually decreased to every day. She was also on Nepro supplement. Patient has had increasing shortness of breath. She was utilizing 1-1-1/2 L of oxygen at home and normally pulse oxing 90-96%. Daughter gradually increase this until she was up to 5 L of oxygen yesterday and then called EMS. Patient normally is ambulatory with a walker with assistance. She needs help with feeding. Patient has been under increased stress especially the last 3 days as a daughter on December 24. At the time of this evaluation, patient is on BiPAP. She is able to answer some simple questions, most of the history is obtained from the patient's daughter. Patient was brought into [facility] emergency center for evaluation. WBC 13.7, hemoglobin 8.4, platelets 436, sodium 134, potassium 4.1, creatinine 1.56 with a GFR of 30, lactic acid on admission 4. 5 repeat 1.8, magnesium 2.4, troponin 0.921 and repeat 1.440, and NT proBNP 71,100, TSH 2.570. EKG sinus rhythm with ST depression in anterior lateral leads, chronic when compared to old EKGs. Patient has been afebrile, heart rate 69, respiratory rate 26, pulse ox 92% on BiPAP, blood pressure 131/68. Chest x-ray shows congestive heart failure pulmonary edema compared to old exam. Pleural effusions new. Patient has been admitted to the cardiac stepdown unit and consults with pulmonary medicine and cardiology. 01/21: Yesterday afternoon, patient developed increasing shortness of breath while on BiPAP 60% FiO2. Pulse ox dropped down 88%. Chest x-ray was ordered which revealed congestive heart failure pulmonary edema. Edema appears improved comp ared to exam earlier today. Patient was given IV Lasix 40 mg and Xanax and Sunshine catheter was placed. Nursing clarified CODE STATUS is full code. Patient was moved into intensive care unit and intubated and placed on mechanical ventilation. Patient remains intubated and on mechanical ventilation with tidal volume 400, FiO2 50, PEEP 5. OG tube in place with bile/brown return. Patient has been afebrile, heart rate 75, blood pressure 118/47. Repeat blood work reveals WBC 13.8, hemoglobin 7.8, electrolytes within normal limits. BUN 47 creatinine 1.62, blood glucose running between 187 and 230. Cortisol level greater than 123 and hydrocortisone discontinued. Blood culture reveals no growth at 24 hours. Urine culture in progress. Zosyn was added for prophylaxis by Dr. Samano, no clear pneumonia. Echocardiogram reveals EF 35-40%, mild aortic regurgitation, moderate to severe aortic stenosis, moderate to severe mitral regurgitation, mild tricuspid regurgitation. 01/22: Patient remains in intensive care unit intubated and on mechanical ventilation. Tidal volume 400, FiO2 80 and PEEP of 10. Patient had a very rough night with a drop in her temperature, drop in her blood pressure and pulse ox. She was placed on 100% oxygen and Levophed was increased to 20 mics. CAT scan of the chest was done last evening which reveals suspect fluid overload state as there is new mild to moderate diffuse soft tissue anasarca most prominent over the visualized upper abdomen. There is small to moderate-sized bilateral pleural effusions and fairly moderate left greater than right central alveolar edema. Underlying infiltrates not excluded particularly in the left lung. Patient has been afebrile, heart rate 106, blood pressure 117/71. Repeat blood work reveals WBC 14.3, hemoglobin 7.9, platelet count 398. Potassium 3.2 and his been replaced, BUN 46 and creatinine 1.56. Blood sugar 149. Pro- calcitonin was 0.33. Chest x-ray this morning reveals worsening airspace disease. Correlate for congestive heart failure with pulmonary edema, pneumonia with associated effusions. This morning, patient underwent a flexible bronchoscopy and BAL of the left upper lobe and no significant abnormalities were seen. No foreign bodies, lesions, significant secretions. Dr. Samano has added and Zyvox today to cover MRSA as she has a history and patient is also on IV Zosyn. Patient received a dose of Ferrlecit yesterday. Patient has been started on tube feedings. Patient has had urine output of less than 10 mL/h currently at 20 after IV Lasix. Repeat echocardiogram was done. CVP is 5-8. Discussed with the patient's daughter current condition and at this time, chest ultrasound will be delayed until patient is off the ventilator. Patient's daughter has discussed with her brother the patient's CODE STATUS and agreed to make her no code. Plan is to continue aggressive treatment but if patient's heart stops no CPR. 01/23: Patient remains intubated and on mechanical ventilation with tidal volume 400, FiO2 of 50 and PEEP of 8. Urine output has significantly improved. She is on more levo fed today. She is on tube feedings at 14 mL per hour. No bowel movement. Repeat chest x-ray shows improvement in aeration. There may be basilar effusions and associated atelectasis versus pneumonia, edema. Coronary artery disease. Patient has been afebrile, heart rate 85, blood pressure currently 116/57. Repeat lab work reveals WBC 10.3, hemoglobin 8, platelet count 812. Sodium 141, potassium 2.8 has been replaced, chloride 109, CO2 26, BUN 35 and creatinine 1.22. Blood sugars running between 146 and 191. Bronchial wash cytology and cultures are pending. Patient is continued on Zyvox and Zosyn. Patient is to have a sedation holiday today. Dr. Farmer has increased Lasix to 60 mg IV twice daily 01/24: Patient remains intubated and on mechanical ventilation with tidal volume 400, FiO2 40, PEEP of 5. Patient is currently off sedation and will open eyes, nod her head. She is able to squeeze was with her left hand and wiggle both toes. Dr. Hernandez on consult added due to lack of movement to the right hand. Patient is on levo fed which is to be weaned down. She has had good urine output. Patient has been afebrile, heart rate 69, blood pressure 144/62. WBC 8.4, hemoglobin 7.9, platelet count 325. BUN 26 creatinine 1.01. Capillary blood glucose running between 163 and 202. Objective - Vital Signs Vital signs: Vital Signs Temp 98.8 F 01/25/20 12:00 Pulse 79 01/25/20 12:45 Resp 20 01/25/20 12:45 BP 123/56 01/25/20 12:45 Pulse Ox 100 01/25/20 12:45 Intake & Output 01/24/20 01/25/20 01/25/20 18:59 06:59 18:59 Intake Total 610.929 0281.092 574 Output Total 1310 1370 385 Balance -413.146 -247.908 189 Weight 77.1 kg 76 kg Intake: IV 292 592 496 0.9 120 120 60 Linezolid 600 mg In 300 300 Dextrose/Water 1 300ml. bag @ 150 mls/hr IVPB Q12HR [facility] Rx#:[id number] Piperacillin-Tazobactam 3 100 100 100 .375 gm In Sodium Chloride 0.9% 100 ml @ 25 mls/hr IVPB Q12HR [facility] Rx #:[id number] pressure bag 72 72 36 Intake, IV Titration 550.854 128.092 Amount Linezolid 600 mg In 300 Dextrose/Water 1 300ml. bag @ 150 mls/hr IVPB Q12HR [facility] Rx#:[id number] Norepinephrine 32 mg In 50.854 28.092 Sodium Chloride 0.9% 218 ml @ 0.05 MCG/KG/MIN 1. 821 mls/hr IV .Q24H [facility] Rx#:[id number] Potassium Chloride 20 meq 200 In Water For Injection 1 100ml.bag @ 50 mls/hr IVPB Q2H [facility] Rx#: [id number] Propofol 1,000 mg In 100 Empty Bag 1 bag @ Titrate IV .Q0M [facility] Rx#: [id number] Tube Feeding 54 312 78 Other 90 Output: Urine 1310 1370 385 Other: Voiding Method Indwelling Catheter Indwelling Catheter ABP, PAP, CO, CI - Last Documented Arterial Blood Pressure 121/32 - Exam Review of Systems unable to obtain due to intubation Gen: This is an 89-year-old female. Patient is lying in ICU bed. She is intubated and on mechanical ventilation. Patient appears to be comfortable today in no acute distress. Daughter and granddaughter at bedside. HEENT: Head is atraumatic, normocephalic. Pupils equal, round. Sclerae is anicteric. Oral mucous membranes are moist. ET and gastric tube in place orally. tube feedings in place. NECK: Supple. No JVD. No lymphadenopathy. No thyromegaly. LUNGS: Diminished in the bases with crackles bilaterally to the bases. No intercostal retractions. HEART: Regular rate and rhythm. Systolic murmur. ABDOMEN: Soft. Bowel sounds are present. No masses. No tenderness. Sunshine catheter with dark shiv output. EXTREMITIES: Trace bilateral lower extremity and upper extremity edema. No calf tenderness. Dorsalis pedis +2 bilaterally. NEUROLOGICAL: Patient is sedated. She is opening eyes, nodding head, squeezing left hand and moving toes. - Labs CBC & Chem 7: 01/25/20 04:15 01/25/20 04:15 Labs: Abnormal Lab Results - Last 24 Hours (Table) 01/24/20 01/24/20 01/25/20 Range/Units 18:05 23:30 04:15 RBC (3.80-5.40) m/uL Hgb (11.4-16.0) gm/dL Hct (34.0-46.0) % MCV (80.0-100.0) fL MCHC (31.0-37.0) g/dL RDW (11.5-15.5) % ABG pO2 (83-108) mmHg ABG HCO3 (21-25) mmol/L ABG Total CO2 (19-24) mmol/L ABG O2 Saturation (94-97) % Chloride 109 H (98-107) mmol/L BUN 26 H (7-17) mg/dL Glucose 163 H (74-99) mg/dL POC Glucose (mg/dL) 184 H 202 H (75-99) mg/dL Calcium 7.2 L (8.4-10.2) mg/dL 01/25/20 01/25/20 01/25/20 Range/Units 04:15 05:15 06:07 RBC 2.57 L (3.80-5.40) m/uL Hgb 7.9 L (11.4-16.0) gm/dL Hct 25.8 L (34.0-46.0) % MCV 100.4 H (80.0-100.0) fL MCHC 30.7 L (31.0-37.0) g/dL RDW 17.5 H (11.5-15.5) % ABG pO2 132 H (83-108) mmHg ABG HCO3 30 H (21-25) mmol/L ABG Total CO2 31 H (19-24) mmol/L ABG O2 Saturation 99.5 H (94-97) % Chloride (98-107) mmol/L BUN (7-17) mg/dL Glucose (74-99) mg/dL POC Glucose (mg/dL) 193 H (75-99) mg/dL Calcium (8.4-10.2) mg/dL 01/25/20 Range/Units 12:58 RBC (3.80-5.40) m/uL Hgb (11.4-16.0) gm/dL Hct (34.0-46.0) % MCV (80.0-100.0) fL MCHC (31.0-37.0) g/dL RDW (11.5-15.5) % ABG pO2 (83-108) mmHg ABG HCO3 (21-25) mmol/L ABG Total CO2 (19-24) mmol/L ABG O2 Saturation (94-97) % Chloride (98-107) mmol/L BUN (7-17) mg/dL Glucose (74-99) mg/dL POC Glucose (mg/dL) 157 H (75-99) mg/dL Calcium (8.4-10.2) mg/dL Microbiology - Last 24 Hours (Table) 01/23/20 09:30 Gram Stain - Final Bronchoalviolar Lavage - Right Bronchial Washings Culture - Final 01/21/20 01:58 Blood Culture - Preliminary Blood No Growth after 96 hours 01/21/20 21:25 Gram Stain - Final Sputum Sputum Culture - Final Assessment and Plan Plan: 1. Acute hypoxic respiratory failure secondary to acute on chronic systolic heart failure with bilateral pleural effusions, POA with severe hypotension requiring vasopressors. Consult with cardiology appreciated. Pulmonary medicine also on consult. Patient is now intubated and on mechanical ventilation. Continue Lasix increased to 60 mg IV twice daily, monitor I&O and daily weights, monitor renal function and electrolytes. Echocardiogram as above. Zosyn and Zyvox in place. No sign of pneumonia. Bilateral pleural effusions to be further evaluated once patient is extubated. Pleural effusions are improving. 2. Acute non-ST elevated myocardial infarction. Cardiology is on consult. 3. History of coronary artery disease status post PCI of the left main in March 2019. Continue aspirin 81 mg daily, Lipitor 10 mg daily, Plavix 75 mg daily, Imdur 60 mg daily, continue Lopressor 25 mg twice daily. 4. Ischemic cardiomyopathy. Continue as in #1. 5. Hypertension. Continue Lasix,. Hydralazine, Norvasc discontinued. 6. Hyperlipidemia. Continue statin 7. Diabetes mellitus type 2. Continue NovoLog scale before meals and at bedtime. Off Prandin 0.5 mg twice daily, Tradjenta 5 mg daily. 8. Alzheimer's dementia. Hold galantamine. 9. Acute kidney injury with chronic kidney disease stage II. Continue Lasix 60 mg IV every 12 hours. 10. Recurrent depression. 11. Valvular heart disease with moderate to severe aortic stenosis and severe mitral regurgitation, mild tricuspid regurgitation. 12. Anemia with history of acute blood loss GI bleed anemia that had recovered in November and December with hemoglobin of 13.6. Iron studies, stool for occult blood. Ferrlecit 1 13. Pressure ulcers: Coccyx stage III present on admission as stage III showing improvement, left heel deep tissue injury present on admission, right heel stage I. Continue local wound care. 14. Right upper extremity weakness. Consult with Dr. Hernandez. CODE STATUS: No code. Okay to continue aggressive treatment otherwise. Discharge plan: To be determined. PT and OT will be added once patient stabilizes. Impression and plan of care have been directed as dictated by the signing physician. Donita Padron nurse practitioner acting as scribe for signing physician.
--- NOTE | 2020-01-25 16:58 | PN ---
PROGRESS NOTE Patient is seen for follow up for acute kidney injury, mainly cardiorenal. She is awake. Patient is on the vent. Plan for possible extubation today. Renal function continues to improve. The patient is being diuresed. PHYSICAL EXAMINATION: On examination today, patient is awake. Blood pressure 117/58, heart rate of 70 per minute, patient is afebrile. She remains on the vent. Examination of the heart: S1 and S2. Examination of the lungs: Decreased breath sounds at the bases. Abdomen is soft, nontender. Examination of the lower extremities shows no significant edema. LABS: Labs show sodium 139, potassium 4.0, chloride 109, CO2 is 30, BUN 26, creatinine 1.01. ASSESSMENT: 1. Acute kidney injury, cardiorenal, currently improving. 2. Hypoxic respiratory failure secondary to congestive heart failure. 3. Hypokalemia secondary to diuretics, status post replacement. 4. Congestive heart failure, acute on top of chronic, mainly systolic. 5. Cardiomyopathy, ejection fraction 35%. 6. Status post acute non-ST elevation myocardial infarction. 7. Stage III chronic kidney disease. Creatinine is now a 1.0. Previously patient has been at 0.8 and 0.9 mg/dL in October 2019. PLAN: Continue current dose of Lasix and repeat laboratories in a.m. MMODL / IJN: [id number] /
[2020-01-25] MEDS: NOREPINEPHRINE 32 MG in SODIUM CHLORIDE 0.9% 218 ML IV SCH (17:00)
[2020-01-25 17:57] LABS: Glucose,Whole Blood 161 mg/dL (75-99)
[2020-01-26 00:08] LABS: Glucose,Whole Blood 155 mg/dL (75-99)
[2020-01-26] MEDS: PIPERACILLIN-TAZOBACTAM 3.375 GM in SODIUM CHLORIDE 0.9% 100 ML IVPB SCH ×4 (00:09→23:38)
[2020-01-26] MEDS: HEPARIN SODIUM,PORCINE 5,000 UNIT/ML 1 ML VIAL SQ SCH ×4 (00:09→23:38)
[2020-01-26] MEDS: INSULIN ASPART (NovoLOG) 100 UNIT/ML VIAL SQ SCH ×5 (00:09→23:38)
[2020-01-26] MEDS: IPRATROPIUM-ALBUTEROL 3 ML NEB INHALATION SCH ×5 (03:11→19:27)
[2020-01-26 04:53] LABS: ABG Base Excess 5.9 mmol/L; ABG HCO3 30 mmol/L (21-25); ABG Oxygen Saturation 99.3 % (94-97); ABG PCO2 42 mmHg (35-45); ABG PH 7.46 (7.35-7.45); ABG PO2 136 mmHg (83-108); ABG TCO2 31 mmol/L (19-24); Allen Test Performed? Yes
[2020-01-26 05:10] LABS: Anisocytosis Slight; Basophils # (A) 0.1 k/uL (0-0.2); Basophils % (A) 1 %; Eosinophils # (A) 0.4 k/uL (0-0.7); Eosinophils % (A) 6 %; HCT 24.1 % (34.0-46.0); HGB 7.5 gm/dL (11.4-16.0); Hypochromasia Slight; Lymphocytes # (A) 1.8 k/uL (1.0-4.8); Lymphocytes % (A) 24 %; MCH 31.4 pg (25.0-35.0); MCV 101.1 fL (80.0-100.0); Macrocytosis Moderate; Mean Platelet Volume 8.8; Monocytes # (A) 0.3 k/uL (0-1.0); Monocytes % (A) 4 %; Neutrophils # (A) 4.8 k/uL (1.3-7.7); Neutrophils % (A) 65 %; Platelet Count 281 k/uL (150-450); RBC 2.38 m/uL (3.80-5.40); RDW 17.3 % (11.5-15.5); WBC 7.4 k/uL (3.8-10.6)
[2020-01-26 05:23] LABS: Calcium 7.3 mg/dL (8.4-10.2); Potassium 3.4 mmol/L (3.5-5.1)
[2020-01-26] MEDS ORDERED: Potassium Replacement Protocol 1 EACH MISC MISCELLANE PRN (05:31)
[2020-01-26 05:48] LABS: Glucose,Whole Blood 130 mg/dL (75-99)
[2020-01-26] MEDS: SODIUM CHLORIDE 0.9% 500 ML 500 ML IV SCH (05:48)
[2020-01-26] MEDS: POTASSIUM BICARBONATE/CIT AC 20 MEQ TABLET.EFF NG-TUBE SCH ×2 (06:35→06:36)
[2020-01-26] MEDS: MIDODRINE 5 MG TAB PO SCH ×3 (06:37→18:52)
--- NOTE | 2020-01-26 07:41 | XR ---
EXAMINATION TYPE: XR chest 1V DATE OF EXAM: 01/26/2020 COMPARISON: 01/25/2020 HISTORY: Shortness of breath TECHNIQUE: Single frontal view of the chest is obtained. FINDINGS: ET and NG tube and central line noted. Bilateral consolidation and pleural effusion. Suspe ct underlying COPD. Atherosclerotic change aorta. Postsurgical change overlying the cervical spine. IMPRESSION: 1. Bilateral lower lobe infiltrate and small effusion. Findings are similar to the prior exam. Underl krzysztof venous congestion not excluded.
[2020-01-26] MEDS: CLOPIDOGREL 75 MG TAB PO SCH (09:08)
[2020-01-26] MEDS: FUROSEMIDE 10 MG/ML 10 ML VIAL IV SCH ×2 (09:08→21:19)
[2020-01-26] MEDS: ATORVASTATIN 10 MG TAB PO SCH (09:08)
[2020-01-26] MEDS: ASPIRIN 81 MG PO SCH (09:08)
[2020-01-26] MEDS: LINEZOLID 600 MG in DEXTROSE/WATER 1 300ML.BAG IVPB SCH ×2 (09:08→21:19)
[2020-01-26] MEDS: METOPROLOL TARTRATE 25 MG TAB PO SCH ×2 (09:09→21:12)
[2020-01-26] MEDS: PANTOPRAZOLE 40 MG/10 ML VIAL IV SCH (09:09)
[2020-01-26] MEDS: ISOSORBIDE MONONITRATE ER 60 MG TAB.ER.24H PO SCH (09:11)
[2020-01-26 09:16] LABS: ABG Base Excess 4.5 mmol/L; ABG HCO3 28 mmol/L (21-25); ABG PCO2 38 mmHg (35-45); ABG PH 7.48 (7.35-7.45); ABG PO2 81 mmHg (83-108); ABG TCO2 29 mmol/L (19-24); Allen Test Performed? Yes
--- NOTE | 2020-01-26 10:03 | P.CNNES ---
History of Present Illness Consult date: 01/25/20 Requesting physician: Donita Padron Reason for Consult: Right upper extremity weakness History of Present Illness: Patient is an 89-year-old female brought from long-term facility on 01/21/2020 for shortness of breath of couple days, cough. Patient was diagnosed with elevated troponin with congestive heart failure. Her symptoms and difficulty breathing got worse the next day, requiring transfer to ICU and placement on mechanical ventilator. Family had reported to the staff and physicians that patient has right arm weakness, which prompted stat neurological consultation. I came to see the patient, who is still on mechanical ventilator, not on any sedation, states but still very encephalopathic, groggy as per examination below. Patient's multiple family members are present. They state that patient has right arm weakness for 10 years. Patient could not carry a gallon of milk with the right arm. 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 She could scoot herself up at baseline using her both arms. Family members noticed that she was not gripping in the right hand as well as the left, therefore they got concerned and reported to the staff. Family has also noticed that she has very significant swelling of the right upper extremity. No other focal symptoms have been noticed by the family or the staff. 2-D echo from 01/22/2020 showed sinus rhythm, moderate concentric LVH, EF is moderately impaired with 35-40%. Apical septum left-ventricular on motion is hypokinetic. Inferolateral hypokinesis. Left atrium is moderately dilated. There is moderate to severe aortic stenosis. Moderate to severe mitral regurgitation. Chest x-ray from today showed stable pleural parenchymal changes correlate for CHF. Otherwise consider pneumonia. EKG showed undetermined rhythm, septal infarct, age undetermined. Patient is currently on aspirin 81 mg, Lipitor 10 mg, Plavix 75 mg, midodrine 10 mg 3 times a day. Patient also on Zosyn. Review of Systems ROS unobtainable: due to endotracheal tube, due to mental status Past Medical History Past Medical History: Coronary Artery Disease (CAD), Chest Pain / Angina, Heart Failure, CVA/TIA, Diabetes Mellitus, GI Bleed, Hyperlipidemia, Hypertension, Myocardial Infarction (ME), Renal Disease Additional Past Medical History / Comment(s): Other hx: Dysphagia, NIDDM type II, neuropathy bilateral hands, home oxygen which she wears prn, chronic kidney disease stage II, UTIs, small hiatal hernia, vascular dementia, bilateral eye b lindness (sees shadows) d/t macular degeneration, unsteady gait, falls, skin peeling. Last Myocardial Infarction Date:: 11/18/17 History of Any Multi-Drug Resistant Organisms: None Reported Past Surgical History: Appendectomy, Back Surgery, Cholecystectomy, Heart Catheterization With Stent Additional Past Surgical History / Comment(s): Low back surgery, cervical surgery, R wrist carpal tunnel release, colonoscopy (not completed d/t poor prep) about 10 yrs ago, EGD 01/2018 d/t abdominal pain. Past Anesthesia/Blood Transfusion Reactions: No Reported Reaction Additional Past Anesthesia/Blood Transfusion Reaction / Comment(s): Pt has clausterphobia. Date of Last Stent Placement:: 11/18/17 Past Psychological History: Depression Smoking Status: Former smoker Past Alcohol Use History: None Reported Additional Past Alcohol Use History / Comment(s): Pt started smoking in 1961 and quit in 1982. No illicit drug use. No alcohol use. Past Drug Use History: None Reported - Past Family History Father Additional Family Medical History / Comment(s): Father at age 91 from old age. Mother Additional Family Medical History / Comment(s): Mother at age 85 with history of lupus. Brother(s) Additional Family Medical History / Comment(s): Patient's siblings have history of coronary artery disease, diabetes, hypertension, macular degeneration. Daughter(s) Additional Family Medical History / Comment(s): Patient has 11 children; 6 daughters and 5 sons. 3 have and 2 from kidney failure and one was murdered. Sister(s) Additional Family Medical History / Comment(s): Pt had a sister live to be 102 yrs old. Medications and Allergies Home Medications Medication Instructions Recorded Confirmed Type Aspirin [Adult Low Dose Aspirin EC] 81 mg PO DAILY 11/21/17 01/21/20 History Galantamine [Razadyne] 4 mg PO AC-BID 01/02/18 01/21/20 History Escitalopram [Lexapro] 10 mg PO DAILY 12/20/18 01/21/20 History Ondansetron [Zofran] 4 mg PO Q8HR PRN 01/13/19 01/21/20 History Linagliptin [Tradjenta] 5 mg PO DAILY 03/09/19 01/21/20 History Ergocalciferol [Vitamin D2 50,000 unit PO Q14D 10/07/19 01/21/20 History (DRISDOL)] Furosemide [Lasix] 20 mg PO BID 10/07/19 01/21/20 History Clopidogrel [Plavix] 75 mg PO DAILY tab 10/12/19 01/21/20 Rx Celecoxib [CeleBREX] 200 mg PO DAILY PRN 10/21/19 01/21/20 History Acetaminophen-Codeine 300-30mg 1 tab PO BID PRN 01/21/20 01/21/20 History [Tylenol w/codeine #3] Atorvastatin [Lipitor] 10 mg PO DAILY 01/21/20 01/21/20 History Famotidine [Pepcid] 20 mg PO DAILY 01/21/20 01/21/20 History Isosorbide Mononitrate ER [Imdur] 30 mg PO DAILY 01/21/20 01/21/20 History Metoprolol Tartrate [Lopressor] 50 mg PO Q8H 01/21/20 01/21/20 History Nitroglycerin Sl Tabs [Nitrostat] 0.4 mg SUBLINGUAL Q5M PRN 01/21/20 01/21/20 History Repaglinide [Prandin] 0.5 mg PO BID 01/21/20 01/21/20 History amLODIPine [Norvasc] 10 mg PO DAILY 01/21/20 01/21/20 History hydrALAZINE HCL [Apresoline] 100 mg PO TID 01/21/20 01/21/20 History Allergies Allergy/AdvReac Type Severity Reaction Status Date / Time hydrocodone [From Silex] Allergy Rash/Hives Verified 01/21/20 11:58 naproxen sodium [From Aleve] Allergy Itching,bessie Verified 01/21/20 11:58 h vancomycin Allergy Swelling Verified 01/22/20 07:41 glimepiride [From Amaryl] AdvReac Nausea & Verified 01/21/20 11:58 Vomiting Physical Examination - Vital Signs Vital Signs: Vital Signs Temp Pulse Resp BP Pulse Ox 01/25/20 19:00 68 20 134/67 100 01/25/20 18:30 70 19 137/50 100 01/25/20 18:00 79 21 130/50 100 01/25/20 17:30 76 20 121/56 100 01/25/20 17:00 77 20 137/52 100 01/25/20 16:30 81 20 144/56 98 01/25/20 16:01 80 01/25/20 16:00 99.0 F 73 20 142/57 100 01/25/20 15:48 78 01/25/20 15:30 67 20 137/57 100 01/25/20 15:00 71 20 121/49 100 01/25/20 14:30 69 21 144/62 100 01/25/20 14:00 74 22 140/52 100 01/25/20 13:30 72 21 136/55 100 01/25/20 13:00 71 20 124/49 100 01/25/20 12:45 79 20 123/56 100 01/25/20 12:30 72 20 126/50 100 01/25/20 12:15 71 20 137/58 100 01/25/20 12:00 98.8 F 75 21 135/54 100 01/25/20 11:54 79 01/25/20 11:45 86 13 118/49 100 01/25/20 11:36 82 01/25/20 11:30 67 20 124/49 100 01/25/20 11:15 72 20 118/73 100 01/25/20 11:00 74 20 130/53 100 01/25/20 10:45 71 20 117/58 100 01/25/20 10:30 70 20 126/57 100 01/25/20 10:15 70 20 121/57 100 01/25/20 10:00 66 20 135/54 100 01/25/20 09:45 72 13 130/62 100 01/25/20 09:30 70 20 130/67 100 01/25/20 09:15 73 20 116/53 100 01/25/20 09:00 78 20 95/75 100 01/25/20 08:45 80 20 126/54 100 01/25/20 08:30 82 20 108/79 100 01/25/20 08:15 77 20 139/51 100 01/25/20 08:00 99.2 F 76 16 136/55 100 01/25/20 07:53 79 01/25/20 07:45 78 20 131/53 100 01/25/20 07:37 80 01/25/20 07:30 76 20 127/71 100 01/25/20 07:15 77 20 122/48 100 01/25/20 07:00 77 20 113/58 100 01/25/20 06:45 79 20 120/47 100 01/25/20 06:30 77 20 123/49 100 01/25/20 06:15 79 21 147/54 100 01/25/20 06:00 80 20 143/57 100 01/25/20 05:45 80 20 142/57 100 01/25/20 05:30 83 21 134/50 100 01/25/20 05:15 79 20 134/56 100 01/25/20 05:00 79 20 100 01/25/20 04:45 81 20 99 01/25/20 04:30 81 20 99 01/25/20 04:15 82 20 99 01/25/20 04:00 98.7 F 82 20 99 01/25/20 03:45 87 20 99 01/25/20 03:30 88 21 99 01/25/20 03:20 92 01/25/20 03:15 101 H 20 100 01/25/20 03:10 82 01/25/20 03:00 85 21 100 01/25/20 02:45 84 20 100 01/25/20 02:30 85 20 100 01/25/20 02:15 79 20 100 01/25/20 02:00 76 20 100 01/25/20 01:45 79 20 100 01/25/20 01:30 75 20 100 01/25/20 01:15 74 20 100 01/25/20 01:00 73 23 100 01/25/20 00:45 77 20 100 01/25/20 00:30 77 20 100 01/25/20 00:15 77 20 100 01/25/20 00:00 97.8 F 75 20 100 01/24/20 23:45 72 20 100 01/24/20 23:36 78 01/24/20 23:30 78 20 100 01/24/20 23:20 80 01/24/20 23:15 74 20 100 01/24/20 23:00 74 20 100 01/24/20 22:45 75 22 100 01/24/20 22:30 75 20 100 01/24/20 22:15 75 20 100 01/24/20 22:00 77 20 99 01/24/20 21:45 82 20 100 01/24/20 21:30 81 20 100 01/24/20 21:15 88 20 100 01/24/20 21:00 89 20 100 01/24/20 20:45 85 20 100 01/24/20 20:30 81 20 100 01/24/20 20:20 84 01/24/20 20:15 84 20 100 01/24/20 20:07 83 01/24/20 20:00 99 F 82 20 100 01/24/20 19:45 84 20 100 01/24/20 19:30 84 20 100 Intake and Output 01/25/20 01/25/20 01/25/20 06:59 14:59 22:59 Intake Total 565.301 609.861 213.287 Output Total 900 475 215 Balance -334.699 134.861 -1.713 Intake: IV 178 528 180 0.9 80 80 50 Linezolid 600 mg In 300 Dextrose/Water 1 300ml. bag @ 150 mls/hr IVPB Q12HR [facility] Rx#:[id number] Piperacillin-Tazobactam 3 50 100 100 .375 gm In Sodium Chloride 0.9% 100 ml @ 25 mls/hr IVPB Q12HR [facility] Rx #:[id number] pressure bag 48 48 30 Intake, IV Titration 119.301 3.861 7.287 Amount Norepinephrine 32 mg In 19.301 3.861 7.287 Sodium Chloride 0.9% 218 ml @ 0.05 MCG/KG/MIN 1. 821 mls/hr IV .Q24H [facility] Rx#:[id number] Propofol 1,000 mg In 100 Empty Bag 1 bag @ Titrate IV .Q0M [facility] Rx#: [id number] Tube Feeding 208 78 26 Other 60 Output: Urine 900 475 215 Other: Voiding Method Indwelling Catheter Indwelling Catheter Indwelling Catheter Weight 76 kg ABP, PAP, CO, CI - Last 8 Hours Arterial Blood Pressure 133/37 Arterial Blood Pressure 129/40 Arterial Blood Pressure 128/39 Arterial Blood Pressure 127/36 Arterial Blood Pressure 131/37 Arterial Blood Pressure 138/37 Arterial Blood Pressure 139/40 Arterial Blood Pressure 120/30 Arterial Blood Pressure 121/30 Arterial Blood Pressure 105/30 Arterial Blood Pressure 135/37 Arterial Blood Pressure 117/32 Arterial Blood Pressure 129/32 Arterial Blood Pressure 121/32 Arterial Blood Pressure 116/31 Arterial Blood Pressure 116/31 Arterial Blood Pressure 132/36 Arterial Blood Pressure 123/37 Arterial Blood Pressure 119/31 Arterial Blood Pressure 113/32 On examination patient is an elderly female, who is intubated, on mechanical ventilation. Patient is not on any sedation, but she is quite encephalopathic. She does opens her eyes to calling her name slightly. But then closes it again. She does make some eye contact. Her pupils are round and reacting to light. Gaze is in the midline. No focal twitching or seizure-like activity. She did wiggle her both hands equally, and tried to squeeze hands very mildly for me, and was symmetric. It was very weak but was symmetric both sides. Likewise patient wiggled toes and feet slightly. Reflexes are diminished and symmetric. Plantars are equivocal. Tone is equal. No obvious seizure activity noted. Patient does have significant peripheral edema, particularly of the right upper extremity. Results - Laboratory Findings CBC and BMP: 01/26/20 05:00 01/26/20 05:00 Abnormal Lab Findings: Abnormal Labs 01/21/20 01/21/20 01/21/20 00:24 00:33 00:33 WBC RBC Hgb Hct MCV MCHC RDW Neutrophils # Retic Count ABG pH ABG pO2 ABG HCO3 ABG Total CO2 ABG O2 Saturation Sodium 134 L Potassium Chloride BUN 44 H Creatinine 1.56 H Glucose 278 H POC Glucose (mg/dL) 318 H Plasma Lactic Acid Maximus 4.5 H* Calcium 8.1 L Magnesium 2.4 H Iron TIBC Troponin I Total Protein 5.5 L Albumin 2.8 L RBC Folate Procalcitonin Ur Leukocyte Esterase Urine WBC Urine Bacteria Hyaline Casts Urine Mucus 01/21/20 01/21/20 01/21/20 00:33 01:54 07:27 WBC 13.7 H RBC 2.73 L Hgb 8.4 L D Hct 26.9 L MCV MCHC RDW 16.4 H Neutrophils # 11.5 H Retic Count ABG pH ABG pO2 ABG HCO3 ABG Total CO2 ABG O2 Saturation Sodium Potassium Chloride BUN Creatinine Glucose POC Glucose (mg/dL) 221 H Plasma Lactic Acid Maximus Calcium Magnesium Iron TIBC Troponin I 0.921 H* Total Protein Albumin RBC Folate Procalcitonin Ur Leukocyte Esterase Urine WBC Urine Bacteria Hyaline Casts Urine Mucus 01/21/20 01/21/20 01/21/20 10:11 10:11 10:11 WBC RBC Hgb Hct MCV MCHC RDW Neutrophils # Retic Count 4.33 H ABG pH ABG pO2 ABG HCO3 ABG Total CO2 ABG O2 Saturation Sodium Potassium Chloride BUN Creatinine Glucose POC Glucose (mg/dL) Plasma Lactic Acid Maximus Calcium Magnesium Iron 35 L TIBC 213 L Troponin I 1.440 H* Total Protein Albumin RBC Folate Procalcitonin Ur Leukocyte Esterase Urine WBC Urine Bacteria Hyaline Casts Urine Mucus 01/21/20 01/21/20 01/21/20 10:34 12:29 14:10 WBC RBC Hgb Hct MCV MCHC RDW Neutrophils # Retic Count ABG pH ABG pO2 ABG HCO3 ABG Total CO2 ABG O2 Saturation Sodium Potassium Chloride BUN Creatinine Glucose POC Glucose (mg/dL) 165 H Plasma Lactic Acid Maximus Calcium Magnesium Iron TIBC Troponin I Total Protein Albumin RBC Folate 1,278 H Procalcitonin Ur Leukocyte Esterase Large H Urine WBC 30 H Urine Bacteria Rare H Hyaline Casts 11 H Urine Mucus Rare H 01/21/20 01/21/20 01/21/20 16:43 17:10 20:35 WBC RBC Hgb Hct MCV MCHC RDW Neutrophils # Retic Count ABG pH ABG pO2 71 L ABG HCO3 ABG Total CO2 26 H ABG O2 Saturation 92.6 L Sodium Potassium Chloride BUN Creatinine Glucose POC Glucose (mg/dL) 135 H Plasma Lactic Acid Maximus Calcium Magnesium Iron TIBC Troponin I 1.240 H* Total Protein Albumin RBC Folate Procalcitonin Ur Leukocyte Esterase Urine WBC Urine Bacteria Hyaline Casts Urine Mucus 01/21/20 01/22/20 01/22/20 21:53 01:49 04:58 WBC RBC Hgb Hct MCV MCHC RDW Neutrophils # Retic Count ABG pH ABG pO2 165 H ABG HCO3 26 H ABG Total CO2 27 H ABG O2 Saturation 99.2 H Sodium Potassium Chloride BUN 47 H Creatinine 1.62 H Glucose 187 H POC Glucose (mg/dL) 230 H Plasma Lactic Acid Maximus Calcium 7.9 L Magnesium Iron TIBC Troponin I Total Protein Albumin RBC Folate Procalcitonin Ur Leukocyte Esterase Urine WBC Urine Bacteria Hyaline Casts Urine Mucus 01/22/20 01/22/20 01/22/20 04:58 04:58 05:37 WBC 13.8 H RBC 2.51 L Hgb 7.8 L Hct 24.9 L MCV MCHC RDW 17.0 H Neutrophils # 10.3 H Retic Count ABG pH 7.51 H ABG pO2 109 H ABG HCO3 28 H ABG Total CO2 29 H ABG O2 Saturation 98.5 H Sodium Potassium Chloride BUN Creatinine Glucose POC Glucose (mg/dL) Plasma Lactic Acid Maximus Calcium Magnesium Iron TIBC Troponin I Total Protein Albumin RBC Folate Procalcitonin 0.33 H Ur Leukocyte Esterase Urine WBC Urine Bacteria Hyaline Casts Urine Mucus 01/22/20 01/22/20 01/22/20 06:23 11:46 17:58 WBC RBC Hgb Hct MCV MCHC RDW Neutrophils # Retic Count ABG pH ABG pO2 ABG HCO3 ABG Total CO2 ABG O2 Saturation Sodium Potassium Chloride BUN Creatinine Glucose POC Glucose (mg/dL) 213 H 238 H 215 H Plasma Lactic Acid Maximus Calcium Magnesium Iron TIBC Troponin I Total Protein Albumin RBC Folate Procalcitonin Ur Leukocyte Esterase Urine WBC Urine Bacteria Hyaline Casts Urine Mucus 01/22/20 01/23/20 01/23/20 23:50 02:29 04:40 WBC RBC Hgb Hct MCV MCHC RDW Neutrophils # Retic Count ABG pH ABG pO2 50 L* 58 L* ABG HCO3 ABG Total CO2 27 H 26 H ABG O2 Saturation 84.7 L 88.1 L Sodium Potassium Chloride BUN Creatinine Glucose POC Glucose (mg/dL) 193 H Plasma Lactic Acid Maximus Calcium Magnesium Iron TIBC Troponin I Total Protein Albumin RBC Folate Procalcitonin Ur Leukocyte Esterase Urine WBC Urine Bacteria Hyaline Casts Urine Mucus 01/23/20 01/23/20 01/23/20 06:20 06:20 06:21 WBC 14.3 H RBC 2.48 L Hgb 7.9 L Hct 24.7 L MCV MCHC RDW 17.5 H Neutrophils # 11.7 H Retic Count ABG pH ABG pO2 ABG HCO3 ABG Total CO2 ABG O2 Saturation Sodium Potassium 3.2 L Chloride BUN 46 H Creatinine 1.56 H Glucose 135 H POC Glucose (mg/dL) 149 H Plasma Lactic Acid Maximus Calcium 7.4 L Magnesium Iron TIBC Troponin I Total Protein Albumin RBC Folate Procalcitonin Ur Leukocyte Esterase Urine WBC Urine Bacteria Hyaline Casts Urine Mucus 01/23/20 01/23/20 01/23/20 08:25 11:58 17:38 WBC RBC Hgb Hct MCV MCHC RDW Neutrophils # Retic Count ABG pH ABG pO2 258 H ABG HCO3 ABG Total CO2 26 H ABG O2 Saturation 100.0 H Sodium Potassium Chloride BUN Creatinine Glucose POC Glucose (mg/dL) 131 H 184 H Plasma Lactic Acid Maximus Calcium Magnesium Iron TIBC Troponin I Total Protein Albumin RBC Folate Procalcitonin Ur Leukocyte Esterase Urine WBC Urine Bacteria Hyaline Casts Urine Mucus 01/23/20 01/24/20 01/24/20 23:20 05:05 05:10 WBC RBC 2.57 L Hgb 8.0 L Hct 25.6 L MCV MCHC RDW 17.3 H Neutrophils # 8.0 H Retic Count ABG pH ABG pO2 162 H ABG HCO3 27 H ABG Total CO2 28 H ABG O2 Saturation 99.4 H Sodium Potassium Chloride BUN Creatinine Glucose POC Glucose (mg/dL) 191 H Plasma Lactic Acid Maximus Calcium Magnesium Iron TIBC Troponin I Total Protein Albumin RBC Folate Procalcitonin Ur Leukocyte Esterase Urine WBC Urine Bacteria Hyaline Casts Urine Mucus 01/24/20 01/24/20 01/24/20 05:10 05:13 11:50 WBC RBC Hgb Hct MCV MCHC RDW Neutrophils # Retic Count ABG pH ABG pO2 ABG HCO3 ABG Total CO2 ABG O2 Saturation Sodium Potassium 2.8 L Chloride 109 H BUN 35 H Creatinine 1.22 H Glucose 146 H POC Glucose (mg/dL) 160 H 147 H Plasma Lactic Acid Maximus Calcium 7.1 L Magnesium Iron TIBC Troponin I Total Protein Albumin RBC Folate Procalcitonin Ur Leukocyte Esterase Urine WBC Urine Bacteria Hyaline Casts Urine Mucus 01/24/20 01/24/20 01/25/20 18:05 23:30 04:15 WBC RBC Hgb Hct MCV MCHC RDW Neutrophils # Retic Count ABG pH ABG pO2 ABG HCO3 ABG Total CO2 ABG O2 Saturation Sodium Potassium Chloride 109 H BUN 26 H Creatinine Glucose 163 H POC Glucose (mg/dL) 184 H 202 H Plasma Lactic Acid Maximus Calcium 7.2 L Magnesium Iron TIBC Troponin I Total Protein Albumin RBC Folate Procalcitonin Ur Leukocyte Esterase Urine WBC Urine Bacteria Hyaline Casts Urine Mucus 01/25/20 01/25/20 01/25/20 04:15 05:15 06:07 WBC RBC 2.57 L Hgb 7.9 L Hct 25.8 L MCV 100.4 H MCHC 30.7 L RDW 17.5 H Neutrophils # Retic Count ABG pH ABG pO2 132 H ABG HCO3 30 H ABG Total CO2 31 H ABG O2 Saturation 99.5 H Sodium Potassium Chloride BUN Creatinine Glucose POC Glucose (mg/dL) 193 H Plasma Lactic Acid Maximus Calcium Magnesium Iron TIBC Troponin I Total Protein Albumin RBC Folate Procalcitonin Ur Leukocyte Esterase Urine WBC Urine Bacteria Hyaline Casts Urine Mucus 01/25/20 01/25/20 12:58 17:56 WBC RBC Hgb Hct MCV MCHC RDW Neutrophils # Retic Count ABG pH ABG pO2 ABG HCO3 ABG Total CO2 ABG O2 Saturation Sodium Potassium Chloride BUN Creatinine Glucose POC Glucose (mg/dL) 157 H 161 H Plasma Lactic Acid Maximus Calcium Magnesium Iron TIBC Troponin I Total Protein Albumin RBC Folate Procalcitonin Ur Leukocyte Esterase Urine WBC Urine Bacteria Hyaline Casts Urine Mucus Assessment and Plan Assessment: * 89-year-old female, admitted with worsening CHF, difficulty breathing, on mechanical ventilation, reported to have right arm weakness. On asking detailed history from the family, it appears the right arm weakness has been present for the past 10 year. Patient not able to carry a gallon of milk in the right arm as compared to the left. Patient's right arm is very much swollen, which may be exacerbating her right arm weakness because of the weight. Again, the exam was very limited because of patient's encephalopathy. * Acute hypoxic respiratory failure secondary to acute CHF exacerbation * Acute non-STEMI * Toxic metabolic encephalopathy * Diabetes mellitus * Anemia * Status post acute renal insufficiency, now mostly improved. * CHF Plan: * Her right arm weakness is chronic, present for almost 10 years. * Need to reevaluate patient once she is extubated, and able to participate in full examination. * We will reassess her when she is medically stable, and alert.
--- NOTE | 2020-01-26 10:18 | P.PN ---
Subjective Progress Note Date: 01/26/20 89-year-old female patient with known history of CAD and CHF with an ejection fraction of 55-40% and history of valvular heart disease with severe MR and severe TR along with other comorbidities such as hypertension and hyperlipidemia and diabetes mellitus. The patient came into the hospital because of worsening shortness of breath. Her chest x-ray shows cardiomegaly and pulmonary edema and possibly some bilateral pleural effusion. Her shortness of breath developed 4 days ago and progressively got worse. She also had some increased cough and congestion either to bring up much sputum. No fever or chills. The influenza screen was negative. ProBNP level was 71,000. Troponin peaked at 1.4. Her serum lactate was at one 0.8. Creatinine is at 1.5 with a white second of 13.7 and a hemoglobin of 8.4. EKG showing a normal sinus rhythm. She weighs over the inferior leads and inferior leads suggestive of sepsis/inferior infarct. No ST segment elevation or depression. Currently, the patient is on BiPAP for respiratory support at a pressure of 12/6 with an FiO2 of 60%. The patient is also receiving IV Lasix 40 mg every 12 hours. On today's evaluation of 01/22/2020 the patient is in the intensive care unit. Note that overnight the patient's sister status decompensated. She failed BiPAP therapy. She became progressively more tachypneic and unresponsive. She was moved to the intensive care unit where she was intubated and she was placed on a mechanical ventilator. This morning she assist-control mode at the rate of 20 with a tidal volume of 450 and FiO2 of 80% and a PEEP of 5. The blood gases from today showed a pH of 7.51 with a pCO2 of 35 and pO2 of 109. The patient has no significant orotracheal secretions. The chest x-ray from today showing pulmonary edema with bilateral pleural effusions. Urine output is in order of 30-40 mL an hour. The patient is currently on norepinephrine infusion which is running at 0.1 g per KG per minute. The patient has no fever. The patient is in sinus rhythm. A repeat echocardiogram was done today. Creatinine is stable at 1.6. No significant leukocytosis. Note that, I talked to the family again. Based on the reported formation, the patient had his AV of vancomycin-induced skin rash with some skin sloughing approximately 2 months ago for which she was hospitalized in early hospital and she was treated and she was discharged home. She has stage II small 3 wounds on her coccyx. No other significant events overnight. She is was sedated with propofol which is running at 50 g per KG per minute. On 01/23/2020 on seeing the patient in intensive care unit for a follow-up. This morning the patient is sedated with propofol and she is at 40 g per minute. She is well sedated and she is calm and comfortable. She is on a mechanical ventilator. She is on assist control mode at the rate of 20 with tidal volume of 400 and FiO2 of 40% and a PEEP of 5. Earlier this morning at around 4 AM, the patient encountered desaturation and the blood gases was done at that time showed a pH of 7.39 with a pCO2 of 42 and pO2 of 58. Based on that, the patient was brought up to an FiO2 of 100% and a PEEP was brought up to 10. Her pulse ox improved and she is at 100% right now and we were able to wean her down to 80%. A CAT scan of the chest was done yesterday showed bilateral pleural effusions, compressive atelectasis in lung bases and interstitial edema consistent with fluid overload. She was getting Lasix 40 mg IV push every 12 hours and her urine output is ranging between 5-30 mL an hour. Norepinephrine i nfusion is running at 0.1 g per KG her minutes for hemodynamic support. Her most recent systolic blood pressure is 106 with a mean of 66. The chest x-ray from today shows pulmonary edema and there is worsening consolidation of the left compared to the right which obviously raises the concern for an underlying pneumonia. The pro-calcitonin level was 0.33 and the patient was covered with IV Zosyn. She is afebrile for now. The white cell count is at 14.3. She is on enteral feeding for nutritional support and she is receiving vital high protein at the rate of 40 mL an hour. Hemoglobin stable at 7.9. Family is at the bedside and I updated them on her condition. She is still undergoing full medical support at this point in time. On 01/24/2020 I'm seeing the patient for a follow-up. She is currently on a 40 mics of propofol. She is well sedated for now. A sedation holiday will be given to her today. In terms of her breathing, she remains on a mechanical ventilator on assist control mode at the rate of 20 with a tidal volume of 400 and FiO2 of 50% with a PEEP of 10. Her blood gases from this morning showed improvement in oxygenation. Her pH was at 7.42 with a pCO2 of 42 and pO2 of 162. Chest x-ray shows improvement in the left lung consolidation and in the volume overload. The patient still has some bilateral pleural effusions. Hemodynamically, she is doing better. She is down to 0.1 mics of norepinephrine infusion. Urine output is in order of 20-40 mL an hour. She is in a negative fluid balance for now as she is mobilizing the fluids. The bronchoscopy was d one and the bronchioloalveolar lavage has not yielded any significant microbial growth. She is currently on a combination of Zosyn and Zyvox. She is afebrile. She is tolerating his tube feeds which is in the form of vital AF. No fever. No other significant events overnight. She remains in a normal sinus rhythm for now. 01/25/2020 I'm seeing the patient for a follow-up. Note that yesterday, we'll discontinue the sedation and it took the patient at least 12 hours to get more awake and earlier this morning at around 4 AM he became quite restless. Based on that, she was placed back on sedation at 20 g of propofol. S1 discontinued 8:30 o'clock this morning. Upon stimulation she opens up her eyes pH is not following any commands yet. I'm hoping that we're going to see some more impr ovement in her level of alertness over the next few hours. She remains on assist control mode at the rate of 20 with an FiO2 of 40% and a PEEP was at 6 with a tidal volume of 400. The blood gas from this morning showed improved oxygenation. The pO2 is at 132 with a pH of 7.45 and a pCO2 of 43. Renal function continues to improve and the patient's creatinine is down to 1.01. The fluid balance is negative as the patient is being diuresed. The neck fluid balance has been approximately a liter negative over the past 24 hours. She remains on IV Lasix 40 mg every 12 hours. She is also on a combination of antibiotics including Zosyn and Zyvox. Pressors are still being utilized for blood pressure support. Norepinephrine infusion has been titrated down and is currently down to 0.03 g per KG per minute. The patient is also continuing to receive enteral feeding. Cardiac rhythm is sinus. She looks quite comfortable. She has a triple-lumen catheter in the left subclavian. CVP is still on the lower side. White cell count is not elevated. She is afebrile. The bronchioloalveolar lavage was collected earlier showed no microbial growth. On 01/26/2020 I'm seeing the patient for a follow-up. The patient has been taken off sedation for the past 24 hours and this morning she is awake and following commands. Took her approximately 24 hours to get fully awake and her bowels. Earlier this morning she was an assist-control mode at the rate of 20 with a tidal volume of 400 and FiO2 of 35% with a PEEP of 5. Based on this, we performed weaning parameters and the patient had a rapid shallow breathing index of 33 with a minute ventilation of 10 L and a tidal volume of 522 mL. I give the patient spontaneous breathing trial with a pressure support of 5 and a PEEP of 5. Subsequent blood gases showed a pH of 7.47 with a pCO2 of 37 and pO2 of 81. Chest x-ray shows improvement in the pulmonary edema. I extubated this patient to 5 L of oxygen by nasal cannula. She is doing well or now. She is following simple commands. No agitation. Restlessness. No shortness of caridad th. She is making good urine while being on IV Lasix. The patient has diuresed adequately for now she is still taking Lasix extremity milligrams every 8 hours. Her net fluid balance is negative and her electrolytes showHis sodium 141 with a BUN of 23 and a creatinine of 0.9. Potassium level is at 3.4 and this is to be replaced. She is afebrile. She is hemodynamically stable. Norepinephrine infusion has been discontinued. She is on accommodation of Zosyn and Zyvox. She is on DuoNeb nebulized treatments around the clock. The bronchioloalveolar lavage was obtained from the left lung showed no microbial growth. The patient remains in a normal sinus rhythm. Family is at the bedside. She was tolerating her enteral feeding for incision support. NG tube was removed today at the time of extubation. Objective - Vital Signs Vital signs: Vital Signs Temp 97.7 F 01/26/20 08:00 Pulse 96 01/26/20 08:00 Resp 11 L 01/26/20 08:00 BP 128/54 01/26/20 08:00 Pulse Ox 100 01/26/20 08:00 Intake & Output 01/25/20 01/26/20 01/26/20 18:59 06:59 18:59 Intake Total 850.061 988 52 Output Total 650 690 30 Balance 200.061 298 22 Weight 78 kg Intake: IV 692 612 26 0.9 120 140 20 Linezolid 600 mg In 300 300 Dextrose/Water 1 300ml. bag @ 150 mls/hr IVPB Q12HR [facility] Rx#:[id number] Piperacillin-Tazobactam 3 200 100 .375 gm In Sodium Chloride 0.9% 100 ml @ 25 mls/hr IVPB Q12HR [facility] Rx #:[id number] pressure bag 72 72 6 Intake, IV Titration 54.061 Amount Norepinephrine 32 mg In 12.119 Sodium Chloride 0.9% 218 ml @ 0.05 MCG/KG/MIN 1. 821 mls/hr IV .Q24H [facility] Rx#:[id number] Propofol 1,000 mg In 41.942 Empty Bag 1 bag @ Titrate IV .Q0M [facility] Rx#: [id number] Tube Feeding 104 286 26 Other 90 Output: Urine 650 690 30 Other: Voiding Method Indwelling Catheter Indwelling Catheter # Bowel Movements 1 ABP, PAP, CO, CI - Last Documented Arterial Blood Pressure 103/39 - Exam The patient is calm and comfortable extubated at 5 L per minute nasal cannula. Head exam was generally normal. There was no scleral icterus or corneal arcus. Mucous membranes were moist. Neck was supple and without jugular venous distension, thyromegaly, or carotid bruits. Carotids were easily palpable bilaterally. There was no adenopathy. Lungs sounds are diminished bilaterally along with crackles in the lung bases. Heart sounds are irregular, this systolic ejection murmur grade 4/6 heard throughout the precordium mainly in the apex and radiating to the neck bilaterally. Abdominal exam revealed normal bowel sounds. The abdomen was soft, non-tender, and without masses, organomegaly, or appreciable enlargement of the abdominal aorta. Examination of the extremities revealed easily palpable radial, femoral and pedal pulses. There was no cyanosis, clubbing or edema. Examination of the skin shows 3 stage II sacral decub ulcerations. Neurologically the patient is awake and alert and she is following commands and moving all 4 extremities without any limitation. - Labs CBC & Chem 7: 01/26/20 05:00 01/26/20 05:00 Labs: Abnormal Lab Results - Last 24 Hours (Table) 01/25/20 01/25/20 01/26/20 Range/Units 12:58 17:56 00:06 RBC (3.80-5.40) m/uL Hgb (11.4-16.0) gm/dL Hct (34.0-46.0) % MCV (80.0-100.0) fL RDW (11.5-15.5) % ABG pH (7.35-7.45) ABG pO2 (83-108) mmHg ABG HCO3 (21-25) mmol/L ABG Total CO2 (19-24) mmol/L ABG O2 Saturation (94-97) % Potassium (3.5-5.1) mmol/L Chloride (98-107) mmol/L BUN (7-17) mg/dL Glucose (74-99) mg/dL POC Glucose (mg/dL) 157 H 161 H 155 H (75-99) mg/dL Calcium (8.4-10.2) mg/dL 01/26/20 01/26/20 01/26/20 Range/Units 04:50 05:00 05:00 RBC 2.38 L (3.80-5.40) m/uL Hgb 7.5 L (11.4-16.0) gm/dL Hct 24.1 L (34.0-46.0) % MCV 101.1 H (80.0-100.0) fL RDW 17.3 H (11.5-15.5) % ABG pH 7.46 H (7.35-7.45) ABG pO2 136 H (83-108) mmHg ABG HCO3 30 H (21-25) mmol/L ABG Total CO2 31 H (19-24) mmol/L ABG O2 Saturation 99.3 H (94-97) % Potassium 3.4 L (3.5-5.1) mmol/L Chloride 109 H (98-107) mmol/L BUN 23 H (7-17) mg/dL Glucose 121 H (74-99) mg/dL POC Glucose (mg/dL) (75-99) mg/dL Calcium 7.3 L (8.4-10.2) mg/dL 01/26/20 01/26/20 Range/Units 05:47 09:11 RBC (3.80-5.40) m/uL Hgb (11.4-16.0) gm/dL Hct (34.0-46.0) % MCV (80.0-100.0) fL RDW (11.5-15.5) % ABG pH 7.48 H (7.35-7.45) ABG pO2 81 L (83-108) mmHg ABG HCO3 28 H (21-25) mmol/L ABG Total CO2 29 H (19-24) mmol/L ABG O2 Saturation (94-97) % Potassium (3.5-5.1) mmol/L Chloride (98-107) mmol/L BUN (7-17) mg/dL Glucose (74-99) mg/dL POC Glucose (mg/dL) 130 H (75-99) mg/dL Calcium (8.4-10.2) mg/dL Microbiology - Last 24 Hours (Table) 01/21/20 01:58 Blood Culture - Preliminary Blood No Growth after 120 hours 01/23/20 09:30 Gram Stain - Final Bronchoalviolar Lavage - Right Bronchial Washings Culture - Final Assessment and Plan Plan: 1 acute hypoxic respiratory failure secondary to acute CHF exacerbation with a component of pulmonary edema and bilateral pleural effusions. The patient remains intubated on a mechanical ventilator. The patient is currently extubated. The patient is currently on 5 L of oxygen by nasal cannula. Chest x-ray shows improvement in the volume status. She has been diuresed and she has been covered also with broad-spectrum antibiotics. 2 acute non-ST segment elevation myocardial infarction with elevated troponins modest troponin peaked at 1.4 3 multivessel coronary artery disease with previous stenting of the LAD and subsequent stenting of the left main that was done in March 2019 with the use of a Impella device. The patient has segmental wall motion abnormalities. The underlying ejection fraction is no other of 35%. 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 The EGD that was done showed mild gastritis without evidence of an acute bleeding. The patient colonoscopy that showed no evidence of any acute bleeding and the patient had pandiverticulosis. 16 acute hypoxic respiratory failure intubated on a mechanical ventilator. 17 stage II sacral decubitus ulceration. Plan Keep oxygen at 5 L per minute nasal cannula Continued IV Lasix, and continue diuretics for 24 hours and pressors of been discontinued Awaiting the results from the bronchioloalveolar lavage. The results thus far are negative. Put the patient on Zyvox 600 mg IV every 12 hours and continue the Zosyn for now. try to provide him some soft diet at a later stage probably around 3-4 hours post extubation Condition is critical and this evaluation was done and more than 30 minutes. Condition is critical. The patient is receiving enteral feeding for nutritional support. We'll continue to follow. Time with Patient: Greater than 30
[2020-01-26 10:32] VITALS: BMI 29.5
[2020-01-26] MEDS: NOREPINEPHRINE 32 MG in SODIUM CHLORIDE 0.9% 218 ML IV SCH (12:21)
[2020-01-26 12:24] LABS: Glucose,Whole Blood 143 mg/dL (75-99)
--- NOTE | 2020-01-26 13:46 | P.PN ---
Subjective Progress Note Date: 01/26/20 This is an 89-year-old female patient of Dr. Sales with known medical history of chronic systolic heart failure and ischemic cardiomyopathy with known ejection fraction 35-40%, severe mitral regurgitation, moderate aortic stenosis, hypertension, chronic kidney disease stage III, type 2 diabetes, Alzheimer's dementia, coronary artery disease status post PCI to the left main and LAD in 2018, hypertension, hyperlipidemia, recurrent depression. Patient is currently living at home with her daughter. She was recently at [facility] for subacute rehab. 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 After patient was discharged to [place], she went to [facility] had increased edema to the arms and legs for which Lasix was on a 20 g twice daily. This was eventually decreased to every day. She was also on Nepro supplement. Patient has had increasing shortness of breath. She was utilizing 1-1-1/2 L of oxygen at home and normally pulse oxing 90-96%. Daughter gradually increase this until she was up to 5 L of oxygen yesterday and then called EMS. Patient normally is ambulatory with a walker with assistance. She needs help with feeding. Patient has been under increased stress especially the last 3 days as a daughter on December 24. At the time of this evaluation, patient is on BiPAP. She is able to answer some simple questions, most of the history is obtained from the patient's daughter. Patient was brought into [facility] emergency center for evaluation. WBC 13.7, hemoglobin 8.4, platelets 436, sodium 134, potassium 4.1, creatinine 1.56 with a GFR of 30, lactic acid on admission 4. 5 repeat 1.8, magnesium 2.4, troponin 0.921 and repeat 1.440, and NT proBNP 71,100, TSH 2.570. EKG sinus rhythm with ST depression in anterior lateral leads, chronic when compared to old EKGs. Patient has been afebrile, heart rate 69, respiratory rate 26, pulse ox 92% on BiPAP, blood pressure 131/68. Chest x-ray shows congestive heart failure pulmonary edema compared to old exam. Pleural effusions new. Patient has been admitted to the cardiac stepdown unit and consults with pulmonary medicine and cardiology. 01/21: Yesterday afternoon, patient developed increasing shortness of breath while on BiPAP 60% FiO2. Pulse ox dropped down 88%. Chest x-ray was ordered which revealed congestive heart failure pulmonary edema. Edema appears improved comp ared to exam earlier today. Patient was given IV Lasix 40 mg and Xanax and Sunshine catheter was placed. Nursing clarified CODE STATUS is full code. Patient was moved into intensive care unit and intubated and placed on mechanical ventilation. Patient remains intubated and on mechanical ventilation with tidal volume 400, FiO2 50, PEEP 5. OG tube in place with bile/brown return. Patient has been afebrile, heart rate 75, blood pressure 118/47. Repeat blood work reveals WBC 13.8, hemoglobin 7.8, electrolytes within normal limits. BUN 47 creatinine 1.62, blood glucose running between 187 and 230. Cortisol level greater than 123 and hydrocortisone discontinued. Blood culture reveals no growth at 24 hours. Urine culture in progress. Zosyn was added for prophylaxis by Dr. Samano, no clear pneumonia. Echocardiogram reveals EF 35-40%, mild aortic regurgitation, moderate to severe aortic stenosis, moderate to severe mitral regurgitation, mild tricuspid regurgitation. 01/22: Patient remains in intensive care unit intubated and on mechanical ventilation. Tidal volume 400, FiO2 80 and PEEP of 10. Patient had a very rough night with a drop in her temperature, drop in her blood pressure and pulse ox. She was placed on 100% oxygen and Levophed was increased to 20 mics. CAT scan of the chest was done last evening which reveals suspect fluid overload state as there is new mild to moderate diffuse soft tissue anasarca most prominent over the visualized upper abdomen. There is small to moderate-sized bilateral pleural effusions and fairly moderate left greater than right central alveolar edema. Underlying infiltrates not excluded particularly in the left lung. Patient has been afebrile, heart rate 106, blood pressure 117/71. Repeat blood work reveals WBC 14.3, hemoglobin 7.9, platelet count 398. Potassium 3.2 and his been replaced, BUN 46 and creatinine 1.56. Blood sugar 149. Pro- calcitonin was 0.33. Chest x-ray this morning reveals worsening airspace disease. Correlate for congestive heart failure with pulmonary edema, pneumonia with associated effusions. This morning, patient underwent a flexible bronchoscopy and BAL of the left upper lobe and no significant abnormalities were seen. No foreign bodies, lesions, significant secretions. Dr. Samano has added and Zyvox today to cover MRSA as she has a history and patient is also on IV Zosyn. Patient received a dose of Ferrlecit yesterday. Patient has been started on tube feedings. Patient has had urine output of less than 10 mL/h currently at 20 after IV Lasix. Repeat echocardiogram was done. CVP is 5-8. Discussed with the patient's daughter current condition and at this time, chest ultrasound will be delayed until patient is off the ventilator. Patient's daughter has discussed with her brother the patient's CODE STATUS and agreed to make her no code. Plan is to continue aggressive treatment but if patient's heart stops no CPR. 01/23: Patient remains intubated and on mechanical ventilation with tidal volume 400, FiO2 of 50 and PEEP of 8. Urine output has significantly improved. She is on more levo fed today. She is on tube feedings at 14 mL per hour. No bowel movement. Repeat chest x-ray shows improvement in aeration. There may be basilar effusions and associated atelectasis versus pneumonia, edema. Coronary artery disease. Patient has been afebrile, heart rate 85, blood pressure currently 116/57. Repeat lab work reveals WBC 10.3, hemoglobin 8, platelet count 812. Sodium 141, potassium 2.8 has been replaced, chloride 109, CO2 26, BUN 35 and creatinine 1.22. Blood sugars running between 146 and 191. Bronchial wash cytology and cultures are pending. Patient is continued on Zyvox and Zosyn. Patient is to have a sedation holiday today. Dr. Farmer has increased Lasix to 60 mg IV twice daily 01/24: Patient remains intubated and on mechanical ventilation with tidal volume 400, FiO2 40, PEEP of 5. Patient is currently off sedation and will open eyes, nod her head. She is able to squeeze was with her left hand and wiggle both toes. Dr. Hernandez on consult added due to lack of movement to the right hand. Patient is on levo fed which is to be weaned down. She has had good urine output. Patient has been afebrile, heart rate 69, blood pressure 144/62. WBC 8.4, hemoglobin 7.9, platelet count 325. BUN 26 creatinine 1.01. Capillary blood glucose running between 163 and 202. 01/25: Patient remains in intensive care unit. Patient was successfully extubat ed and was half hour before arrival. Patient is currently moving all extremities. Patient has been seen by Dr. Calix and right arm weakness has been old. Patient is currently moving all extremities with equal strength. Patient has been afebrile, heart rate 87, blood pressure 114/55, pulse ox 11 5/48, pulse ox 90% on 5 L nasal cannula. Repeat blood work reveals WBC 7.4, hemoglobin 7.5, platelet count 281. Sodium 141, potassium 3.4 has been replaced, chloride 109, CO2 29, BUN 23 and creatinine 0.92. Blood sugars running between 121 and 143. Repeat chest x-ray shows bilateral lower lobe i nfiltrate and small effusion. Findings similar to prior exam. Underlying venous congestion not excluded. Patient is continued on Zosyn and Zyvox as well as scheduled nebulizer treatments. Cultures from bronchial alveolar lavage is showing no growth. Cytology report is negative for malignant cells. equipment monitor phototypesetting has been in normal sinus rhythm. Objective - Vital Signs Vital signs: Vital Signs Temp 97.7 F 01/26/20 08:00 Pulse 96 01/26/20 08:00 Resp 11 L 01/26/20 08:00 BP 128/54 01/26/20 08:00 Pulse Ox 100 01/26/20 08:00 Intake & Output 01/25/20 01/26/20 01/26/20 18:59 06:59 18:59 Intake Total 850.061 988 52 Output Total 650 690 30 Balance 200.061 298 22 Weight 78 kg 78 kg Intake: IV 692 612 26 0.9 120 140 20 Linezolid 600 mg In 300 300 Dextrose/Water 1 300ml. bag @ 150 mls/hr IVPB Q12HR [facility] Rx#:[id number] Piperacillin-Tazobactam 3 200 100 .375 gm In Sodium Chloride 0.9% 100 ml @ 25 mls/hr IVPB Q12HR [facility] Rx #:[id number] pressure bag 72 72 6 Intake, IV Titration 54.061 Amount Norepinephrine 32 mg In 12.119 Sodium Chloride 0.9% 218 ml @ 0.05 MCG/KG/MIN 1. 821 mls/hr IV .Q24H [facility] Rx#:[id number] Propofol 1,000 mg In 41.942 Empty Bag 1 bag @ Titrate IV .Q0M [facility] Rx#: [id number] Tube Feeding 104 286 26 Other 90 Output: Urine 650 690 30 Other: Voiding Method Indwelling Catheter Indwelling Catheter # Bowel Movements 1 ABP, PAP, CO, CI - Last Documented Arterial Blood Pressure 103/39 - Exam Review of Systems Constitutional: No fever, no chills, no night sweats. No weight change. Reports weakness, reports fatigue reports lethargy. Reports daytime sleepiness. EENT: No headache. No blurred vision or double vision, no loss of vision. No nasal drainage or congestion. No epistaxis. No sore throat. Lungs: No shortness of breath, cough, no sputum production. No wheezing. Cardiovascular: No chest pain, no lower extremity edema. No palpitations. No paroxysmal nocturnal dyspnea. No orthopnea. No lightheadedness or dizziness. No syncopal episodes. Abdominal: No abdominal pain. No nausea, vomiting. No diarrhea. No constipation. No bloody or tarry stools.. No loss of appetite. Genitourinary: No dysuria, increased frequency, urgency. No urinary retention. Sunshine in place. Musculoskeletal: No myalgias. Reports muscle weakness, no gait dysfunction, no frequent falls. No back pain. No neck pain. Integumentary: No wounds, no lesions. No rash or pruritus. No unusual bruising. No change in hair or nails. Neurologic: No aphasia. No facial droop. No change in mentation. No head injury. No headache. No paralysis. No paresthesia. Psychiatric: No depression. No anxiety. No mood swings. Endocrine: No abnormal blood sugars. No weight change. Gen: This is an 89-year-old female. Patient is lying in ICU bed. Patient appears to be comfortable today in no acute distress. Granddaughter at bedside. HEENT: Head is atraumatic, normocephalic. Pupils equal, round. Sclerae is anicteric. Oral mucous membranes are moist. NECK: Supple. No JVD. No lymphadenopathy. No thyromegaly. LUNGS: Diminished in the bases with crackles bilaterally to the bases. No int ercostal retractions. HEART: Regular rate and rhythm. Systolic murmur. ABDOMEN: Soft. Bowel sounds are present. No masses. No tenderness. Sunshine catheter with shiv output. EXTREMITIES: Trace bilateral lower extremity and upper extremity edema. No calf tenderness. Dorsalis pedis +2 bilaterally. NEUROLOGICAL: Patient is awake and alert. She is able to follow commands. She can move all 4 extremities. No focal neuro deficits noted. - Labs CBC & Chem 7: 01/26/20 05:00 01/26/20 05:00 Labs: Abnormal Lab Results - Last 24 Hours (Table) 01/25/20 01/25/20 01/26/20 Range/Units 12:58 17:56 00:06 RBC (3.80-5.40) m/uL Hgb (11.4-16.0) gm/dL Hct (34.0-46.0) % MCV (80.0-100.0) fL RDW (11.5-15.5) % ABG pH (7.35-7.45) ABG pO2 (83-108) mmHg ABG HCO3 (21-25) mmol/L ABG Total CO2 (19-24) mmol/L ABG O2 Saturation (94-97) % Potassium (3.5-5.1) mmol/L Chloride (98-107) mmol/L BUN (7-17) mg/dL Glucose (74-99) mg/dL POC Glucose (mg/dL) 157 H 161 H 155 H (75-99) mg/dL Calcium (8.4-10.2) mg/dL 01/26/20 01/26/20 01/26/20 Range/Units 04:50 05:00 05:00 RBC 2.38 L (3.80-5.40) m/uL Hgb 7.5 L (11.4-16.0) gm/dL Hct 24.1 L (34.0-46.0) % MCV 101.1 H (80.0-100.0) fL RDW 17.3 H (11.5-15.5) % ABG pH 7.46 H (7.35-7.45) ABG pO2 136 H (83-108) mmHg ABG HCO3 30 H (21-25) mmol/L ABG Total CO2 31 H (19-24) mmol/L ABG O2 Saturation 99.3 H (94-97) % Potassium 3.4 L (3.5-5.1) mmol/L Chloride 109 H (98-107) mmol/L BUN 23 H (7-17) mg/dL Glucose 121 H (74-99) mg/dL POC Glucose (mg/dL) (75-99) mg/dL Calcium 7.3 L (8.4-10.2) mg/dL 01/26/20 01/26/20 Range/Units 05:47 09:11 RBC (3.80-5.40) m/uL Hgb (11.4-16.0) gm/dL Hct (34.0-46.0) % MCV (80.0-100.0) fL RDW (11.5-15.5) % ABG pH 7.48 H (7.35-7.45) ABG pO2 81 L (83-108) mmHg ABG HCO3 28 H (21-25) mmol/L ABG Total CO2 29 H (19-24) mmol/L ABG O2 Saturation (94-97) % Potassium (3.5-5.1) mmol/L Chloride (98-107) mmol/L BUN (7-17) mg/dL Glucose (74-99) mg/dL POC Glucose (mg/dL) 130 H (75-99) mg/dL Calcium (8.4-10.2) mg/dL Microbiology - Last 24 Hours (Table) 01/21/20 01:58 Blood Culture - Preliminary Blood No Growth after 120 hours 01/23/20 09:30 Gram Stain - Final Bronchoalviolar Lavage - Right Bronchial Washings Culture - Final Assessment and Plan Plan: 1. Acute hypoxic respiratory failure secondary to acute on chronic systolic heart failure with bilateral pleural effusions, POA with severe hypotension requiring vasopressors. Consult with cardiology appreciated. Pulmonary medicine also on consult. Patient has been successfully extubated. Continue Lasix increased to 60 mg IV twice daily, monitor I&O and daily weights, monitor renal function and electrolytes. Echocardiogram as above. Zosyn and Zyvox in place. No sign of pneumonia. 2. Acute non-ST elevated myocardial infarction. Cardiology is on consult. 3. History of coronary artery disease status post PCI of the left main in March 2019. Continue aspirin 81 mg daily, Lipitor 10 mg daily, Plavix 75 mg daily, Imdur 60 mg daily, continue Lopressor 25 mg twice daily. 4. Ischemic cardiomyopathy. Continue as in #1. 5. Hypertension. Continue Lasix,. Hydralazine, Norvasc discontinued due to hypotension. 6. Hyperlipidemia. Continue statin 7. Diabetes mellitus type 2. Continue NovoLog scale before meals and at bedtime. Off Prandin 0.5 mg twice daily, Tradjenta 5 mg daily. 8. Alzheimer's dementia. Hold galantamine. 9. Acute kidney injury with chronic kidney disease stage II. Continue Lasix 60 mg IV every 12 hours. 10. Recurrent depression. 11. Valvular heart disease with moderate to severe aortic stenosis and severe mitral regurgitation, mild tricuspid regurgitation. 12. Anemia with history of acute blood loss GI bleed anemia that had recovered in November and December with hemoglobin of 13.6. Ferrlecit 1 13. Pressure ulcers: Coccyx stage III present on admission as stage III showing improvement, left heel deep tissue injury present on admission, right heel stage I. Continue local wound care. 14. Right upper extremity weakness with chronic right shoulder weakness. Consult with Dr. Hernandez appreciated. No further workup is necessary. CODE STATUS: Full code with no chest compressions. Discharge plan: To be determined. PT and OT will be added once patient stabilizes. Impression and plan of care have been directed as dictated by the signing physician. Donita Padron nurse practitioner acting as scribe for signing physician.
[2020-01-26] MEDS ORDERED: SODIUM FERRIC GLUCONAT-SUCROSE 125 MG in SODIUM CHLORIDE 0.9% 100 ML IVPB ONE (14:00)
--- NOTE | 2020-01-26 14:33 | PN ---
PROGRESS NOTE Patient is seen for followup for acute kidney injury. She was just extubated this morning about 10 minutes ago. Patient is awake. She is comfortable. She continues to have good urine output. Patient is maintained on IV Lasix. Serum creatinine is down to 0.9 mg/dL. PHYSICAL EXAMINATION: On examination today, blood pressure was 119/56, heart rate 77 per minute, patient is afebrile. Examination of the heart S1, S2. Examination of the lungs, bilateral breath sounds are heard. Abdomen is oft, nontender. Examination of the lower extremities shows 1+ edema bilaterally. CODING SUPPORT SPECIALIST exam grossly intact. LABS: Show sodium of 141, potassium 3.4, chloride 109, CO2 is 29, BUN 23, creatinine 0.9, hemoglobin 7.5 g/dL. ASSESSMENT: 1. Acute kidney injury, cardiorenal, currently improving. 2. Hypokalemia from diuresis being replaced. 3. Hypoxic respiratory failure secondary to congestive heart failure, status post extubation today. 4. Chronic kidney disease secondary to nephrosclerosis, NKF stage III, baseline creatinine appears to be around 1; however, today creatinine is down to 0.9 mg/dL. 5. Anemia. No active bleeding noted. Iron saturation was 16% on 01/21/2020. Ferritin was not significantly low. It was 242. PLAN: Continue current dose of IV Lasix. Replace potassium. Check magnesium and add 1 dose of IV iron. Repeat labs in a.m. Continue to avoid nephrotoxic agents. MMODL / IJN: [id number] /
--- NOTE | 2020-01-26 16:39 | PN ---
PROGRESS NOTE Mrs. Mcclain is an 89-year-old female who has a history of aortic valve disease, mitral valve disease, history of coronary artery disease, status post stenting of the LAD and the left main, who presented with pneumonia and progressive respiratory distress requiring mechanical ventilation. She remains intubated. She is off sedation. She is opening up her eyes. Hemodynamically she is stable. She continues to be diuresed. The plan is to wean her and extubate her today. There is no evidence of malignant arrhythmia. She continues to be on Lasix 60 mg IV q.12 hours, aspirin once a day, Lipitor 10 mg daily, Plavix 75 mg daily, isosorbide mononitrate 60 mg daily, metoprolol tartrate 25 mg twice a day, midodrine. PHYSICAL EXAMINATION: Blood pressure is running in the 110s to 120s with a heart rate in the 70s. LUNGS: Clear anteriorly. HEART: Regular rate and rhythm. S1, S2. No S3, with systolic murmur heard at the base. No diastolic murmur. No rub. ABDOMEN: Soft, nontender. EXTREMITIES: No edema. LAB DATA: Lab data revealed a BUN and creatinine of 23 and 0.92. Hemoglobin 7.5. IMPRESSION: 1. Respiratory failure with pneumonia, improving. Hopefully the patient can be weaned and extubated today. 2. History of coronary artery disease, status post stenting of the left main and to the left anterior descending coronary artery. 3. Aortic and mitral valve disease. 4. History of cardiomyopathy. 5. Renal failure, resolved. 6. Anemia. 7. Diabetes mellitus. RECOMMENDATIONS: Would continue supportive care at this time and wean and extubate. Unfortunately the long-term prognosis remains guarded. MMODL / IJN: [id number] /
[2020-01-26 18:50] LABS: Glucose,Whole Blood 155 mg/dL (75-99)
[2020-01-26 23:37] LABS: Glucose,Whole Blood 140 mg/dL (75-99)
[2020-01-27 04:37] LABS: Anisocytosis Slight; Basophils # (A) 0.1 k/uL (0-0.2); Basophils % (A) 1 %; Eosinophils # (A) 0.3 k/uL (0-0.7); Eosinophils % (A) 2 %; HCT 27.5 % (34.0-46.0); HGB 8.3 gm/dL (11.4-16.0); Hypochromasia Moderate; Lymphocytes # (A) 3.5 k/uL (1.0-4.8); Lymphocytes % (A) 33 %; MCH 30.9 pg (25.0-35.0); MCHC 30.1 g/dL (31.0-37.0); MCV 102.6 fL (80.0-100.0); Macrocytosis Moderate; Mean Platelet Volume 8.4; Monocytes # (A) 0.5 k/uL (0-1.0); Monocytes % (A) 4 %; Neutrophils # (A) 6.4 k/uL (1.3-7.7); Neutrophils % (A) 59 %; Platelet Count 343 k/uL (150-450); RBC 2.68 m/uL (3.80-5.40); RDW 17.3 % (11.5-15.5); WBC 10.8 k/uL (3.8-10.6)
[2020-01-27 05:07] LABS: Calcium 8.3 mg/dL (8.4-10.2); Potassium 4.6 mmol/L (3.5-5.1)
[2020-01-27 06:03] LABS: Glucose,Whole Blood 102 mg/dL (75-99)
[2020-01-27] MEDS: INSULIN ASPART (NovoLOG) 100 UNIT/ML VIAL SQ SCH ×3 (06:04→18:14)
[2020-01-27] MEDS: MIDODRINE 5 MG TAB PO SCH ×3 (07:03→16:12)
[2020-01-27] MEDS: IPRATROPIUM-ALBUTEROL 3 ML NEB INHALATION SCH ×4 (07:20→19:04)
--- NOTE | 2020-01-27 08:03 | XR ---
EXAMINATION TYPE: XR chest 1V DATE OF EXAM: 01/27/2020 COMPARISON: 01/26/2020 HISTORY: Congestive heart failure. Shortness of breath. TECHNIQUE: Single frontal view of the chest is obtained. FINDINGS: Worsening bibasilar opacities and small pleural effusions. Interstitial pulmonary edema se en. Enteric and endotracheal tube have been removed. Left subclavian central venous catheter is uncha nged. Cervical fusion device seen. IMPRESSION: Worsening fluid overload status post removal of the endotracheal and enteric tubes. Smal l pleural effusions and bibasilar airspace disease are now seen.
[2020-01-27] MEDS: FUROSEMIDE 10 MG/ML 10 ML VIAL IV SCH ×3 (08:26→20:33)
[2020-01-27] MEDS: PIPERACILLIN-TAZOBACTAM 3.375 GM in SODIUM CHLORIDE 0.9% 100 ML IVPB SCH ×2 (08:26→16:09)
[2020-01-27] MEDS: PANTOPRAZOLE 40 MG/10 ML VIAL IV SCH (08:27)
[2020-01-27] MEDS: HEPARIN SODIUM,PORCINE 5,000 UNIT/ML 1 ML VIAL SQ SCH ×2 (08:27→16:09)
[2020-01-27] MEDS: LINEZOLID 600 MG in DEXTROSE/WATER 1 300ML.BAG IVPB SCH ×2 (08:27→20:31)
--- NOTE | 2020-01-27 11:16 | P.PN ---
Subjective Progress Note Date: 01/27/20 This is an 89-year-old female patient of Dr. Sales with known medical history of chronic systolic heart failure and ischemic cardiomyopathy with known ejection fraction 35-40%, severe mitral regurgitation, moderate aortic stenosis, hypertension, chronic kidney disease stage III, type 2 diabetes, Alzheimer's dementia, coronary artery disease status post PCI to the left main and LAD in 2018, hypertension, hyperlipidemia, recurrent depression. Patient is currently living at home with her daughter. She was recently at [facility] for subacute rehab. 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 After patient was discharged to [place], she went to [facility] had increased edema to the arms and legs for which Lasix was on a 20 g twice daily. This was eventually decreased to every day. She was also on Nepro supplement. Patient has had increasing shortness of breath. She was utilizing 1-1-1/2 L of oxygen at home and normally pulse oxing 90-96%. Daughter gradually increase this until she was up to 5 L of oxygen yesterday and then called EMS. Patient normally is ambulatory with a walker with assistance. She needs help with feeding. Patient has been under increased stress especially the last 3 days as a daughter on December 24. At the time of this evaluation, patient is on BiPAP. She is able to answer some simple questions, most of the history is obtained from the patient's daughter. Patient was brought into [facility] emergency center for e valuation. WBC 13.7, hemoglobin 8.4, platelets 436, sodium 134, potassium 4.1, creatinine 1.56 with a GFR of 30, lactic acid on admission 4. 5 repeat 1.8, magnesium 2.4, troponin 0.921 and repeat 1.440, and NT proBNP 71,100, TSH 2.570. EKG sinus rhythm with ST depression in anterior lateral leads, chronic when compared to old EKGs. Patient has been afebrile, heart rate 69, respiratory rate 26, pulse ox 92% on BiPAP, blood pressure 131/68. Chest x-ray shows congestive heart failure pulmonary edema compared to old exam. Pleural effusions new. Patient has been admitted to the cardiac stepdown unit and consults with pulmonary medicine and cardiology. 01/21: Yesterday afternoon, patient developed increasing shortness of breath while on BiPAP 60% FiO2. Pulse ox dropped down 88%. Chest x-ray was ordered which revealed congestive heart failure pulmonary edema. Edema appears improved genny red to exam earlier today. Patient was given IV Lasix 40 mg and Xanax and Sunshine catheter was placed. Nursing clarified CODE STATUS is full code. Patient was moved into intensive care unit and intubated and placed on mechanical ventilation. Patient remains intubated and on mechanical ventilation with tidal volume 400, FiO2 50, PEEP 5. OG tube in place with bile/brown return. Patient has been afebrile, heart rate 75, blood pressure 118/47. Repeat blood work reveals WBC 13.8, hemoglobin 7.8, electrolytes within normal limits. BUN 47 creatinine 1.62, blood glucose running between 187 and 230. Cortisol level greater than 123 and hydrocortisone discontinued. Blood culture reveals no growth at 24 hours. Urine culture in progress. Zosyn was added for prophylaxis by Dr. Samano, no clear pneumonia. Echocardiogram reveals EF 35-40%, mild aortic regurgitation, moderate to severe aortic stenosis, moderate to severe mitral regurgitation, mild tricuspid regurgitation. 01/22: Patient remains in intensive care unit intubated and on mechanical ventilation. Tidal volume 400, FiO2 80 and PEEP of 10. Patient had a very rough night with a drop in her temperature, drop in her blood pressure and pulse ox. She was placed on 100% oxygen and Levophed was increased to 20 mics. CAT scan of the chest was done last evening which reveals suspect fluid overload state as there is new mild to moderate diffuse soft tissue anasarca most prominent over the visualized upper abdomen. There is small to moderate-sized bilateral pleural effusions and fairly moderate left greater than right central alveolar edema. Underlying infiltrates not excluded particularly in the left lung. Patient has been afebrile, heart rate 106, blood pressure 117/71. Repeat blood work reveals WBC 14.3, hemoglobin 7.9, platelet count 398. Potassium 3.2 and his been replaced, BUN 46 and creatinine 1.56. Blood sugar 149. Pro- calcitonin was 0.33. Chest x-ray this morning reveals worsening airspace disease. Correlate for congestive heart failure with pulmonary edema, pneumonia with associated effusions. This morning, patient underwent a flexible bronchoscopy and BAL of the left upper lobe and no significant abnormalities were seen. No foreign bodies, lesions, significant secretions. Dr. Samano has added and Zyvox today to cover MRSA as she has a history and patient is also on IV Zosyn. Patient received a dose of Ferrlecit yesterday. Patient has been started on tube feedings. Patient has had urine output of less than 10 mL/h currently at 20 after IV Lasix. Repeat echocardiogram was done. CVP is 5-8. Discussed with the patient's daughter current condition and at this time, chest ultrasound will be delayed until patient is off the ventilator. Patient's daughter has discussed with her brother the patient's CODE STATUS and agreed to make her no code. Plan is to continue aggressive treatment but if patient's heart stops no CPR. 01/23: Patient remains intubated and on mechanical ventilation with tidal volume 400, FiO2 of 50 and PEEP of 8. Urine output has significantly improved. She is on more levo fed today. She is on tube feedings at 14 mL per hour. No bowel movement. Repeat chest x-ray shows improvement in aeration. There may be basilar effusions and associated atelectasis versus pneumonia, edema. Coronary artery disease. Patient has been afebrile, heart rate 85, blood pressure currently 116/57. Repeat lab work reveals WBC 10.3, hemoglobin 8, platelet count 812. Sodium 141, potassium 2.8 has been replaced, chloride 109, CO2 26, BUN 35 and creatinine 1.22. Blood sugars running between 146 and 191. Bronchial wash cytology and cultures are pending. Patient is continued on Zyvox and Zosyn. Patient is to have a sedation holiday today. Dr. Farmer has increased Lasix to 60 mg IV twice daily 01/24: Patient remains intubated and on mechanical ventilation with tidal volume 400, FiO2 40, PEEP of 5. Patient is currently off sedation and will open eyes, nod her head. She is able to squeeze was with her left hand and wiggle both toes. Dr. Hernandez on consult added due to lack of movement to the right hand. Patient is on levo fed which is to be weaned down. She has had good urine output. Patient has been afebrile, heart rate 69, blood pressure 144/62. WBC 8 .4, hemoglobin 7.9, platelet count 325. BUN 26 creatinine 1.01. Capillary blood glucose running between 163 and 202. 01/25: Patient remains in intensive care unit. Patient was successfully extubate d and was half hour before arrival. Patient is currently moving all extremities. Patient has been seen by Dr. Calix and right arm weakness has been old. Patient is currently moving all extremities with equal strength. Patient has been afebrile, heart rate 87, blood pressure 114/55, pulse ox 115 /48, pulse ox 90% on 5 L nasal cannula. Repeat blood work reveals WBC 7.4, hemoglobin 7.5, platelet count 281. Sodium 141, potassium 3.4 has been replaced, chloride 109, CO2 29, BUN 23 and creatinine 0.92. Blood sugars running between 121 and 143. Repeat chest x-ray shows bilateral lower lobe in filtrate and small effusion. Findings similar to prior exam. Underlying venous congestion not excluded. Patient is continued on Zosyn and Zyvox as well as scheduled nebulizer treatments. Cultures from bronchial alveolar lavage is showing no growth. Cytology report is negative for malignant cells. lobby porter has been in normal sinus rhythm. 01/26: Patient remains in intensive care unit. She was extubated yesterday however she is now on a BiPAP machine and has progressively declined throughout the night and into this morning. Patient was given 60 mg of Lasix with no additional output. Urinary output has continued to decline throughout the night. Patient does not respond to verbal stimuli. Does open eyes with painful stimuli. WC 10.8, hemoglobin 8.3, potassium 4.6, BUN 24, creatinine 1.19. ABG: PH 7.4, POC 229, pO2 140, HCO3 10. Patient's prognosis is guarded. She is no C WA, patient may be reintubated once assessed by pulmonary. Review of systems: Unable to assess due to mental status Objective - Vital Signs Vital signs: Vital Signs Temp 98.8 F 01/27/20 08:00 Pulse 117 H 01/27/20 10:00 Resp 29 H 01/27/20 10:00 BP 98/53 01/27/20 10:00 Pulse Ox 88 L 01/27/20 10:00 Intake & Output 01/26/20 01/27/20 01/27/20 18:59 06:59 18:59 Intake Total 890 712 504 Output Total 540 240 10 Balance 350 472 494 Weight 78 kg 77.5 kg Intake: IV 812 712 404 0.9 240 240 80 Linezolid 600 mg In 300 300 300 Dextrose/Water 1 300ml. bag @ 150 mls/hr IVPB Q12HR [facility] Rx#:[id number] Piperacillin-Tazobactam 3 200 100 .375 gm In Sodium Chloride 0.9% 100 ml @ 25 mls/hr IVPB Q12HR [facility] Rx #:[id number] pressure bag 72 72 24 Intake, IV Titration 100 Amount Piperacillin-Tazobactam 3 100 .375 gm In Sodium Chloride 0.9% 100 ml @ 25 mls/hr IVPB Q8HR [facility] Rx# :[id number] Tube Feeding 78 Output: Urine 540 240 10 Other: Voiding Method Indwelling Catheter Indwelling Catheter # Bowel Movements 1 ABP, PAP, CO, CI - Last Documented Arterial Blood Pressure 80/30 - Exam Gen: This is an 89-year-old female. Patient is lying in ICU bed. In moderate distress. HEENT: Head is atraumatic, normocephalic. Pupils equal, round. Sclerae is anicteric. Oral mucous membranes are moist. NECK: Supple. No JVD. No lymphadenopathy. No thyromegaly. LUNGS: Diminished in the bases with crackles bilaterally to the bases. No intercostal retractions. HEART: Regular rate and rhythm. Systolic murmur. ABDOMEN: Soft. Bowel sounds are present. No masses. No tenderness. Sunshine catheter with shiv output. EXTREMITIES: Trace bilateral lower extremity and upper extremity edema. No calf tenderness. Dorsalis pedis +2 bilaterally. NEUROLOGICAL: She is unable able to follow commands. - Labs CBC & Chem 7: 01/27/20 04:30 01/27/20 04:30 Labs: Abnormal Lab Results - Last 24 Hours (Table) 01/23/20 01/26/20 01/26/20 Range/Units 09:30 12:23 18:48 WBC (3.8-10.6) k/uL RBC (3.80-5.40) m/uL Hgb (11.4-16.0) gm/dL Hct (34.0-46.0) % MCV (80.0-100.0) fL MCHC (31.0-37.0) g/dL RDW (11.5-15.5) % Chloride (98-107) mmol/L BUN (7-17) mg/dL Creatinine (0.52-1.04) mg/dL POC Glucose (mg/dL) 143 H 155 H (75-99) mg/dL Calcium (8.4-10.2) mg/dL Viral Test See Below H 01/26/20 01/27/20 01/27/20 Range/Units 23:34 04:30 04:30 WBC 10.8 H (3.8-10.6) k/uL RBC 2.68 L (3.80-5.40) m/uL Hgb 8.3 L (11.4-16.0) gm/dL Hct 27.5 L (34.0-46.0) % MCV 102.6 H (80.0-100.0) fL MCHC 30.1 L (31.0-37.0) g/dL RDW 17.3 H (11.5-15.5) % Chloride 111 H (98-107) mmol/L BUN 24 H (7-17) mg/dL Creatinine 1.19 H (0.52-1.04) mg/dL POC Glucose (mg/dL) 140 H (75-99) mg/dL Calcium 8.3 L (8.4-10.2) mg/dL Viral Test 01/27/20 Range/Units 06:02 WBC (3.8-10.6) k/uL RBC (3.80-5.40) m/uL Hgb (11.4-16.0) gm/dL Hct (34.0-46.0) % MCV (80.0-100.0) fL MCHC (31.0-37.0) g/dL RDW (11.5-15.5) % Chloride (98-107) mmol/L BUN (7-17) mg/dL Creatinine (0.52-1.04) mg/dL POC Glucose (mg/dL) 102 H (75-99) mg/dL Calcium (8.4-10.2) mg/dL Viral Test Microbiology - Last 24 Hours (Table) 01/21/20 01:58 Blood Culture - Final Blood No Growth after 144 hours Assessment and Plan Plan: 1. Acute hypoxic respiratory failure secondary to acute on chronic systolic heart failure with bilateral pleural effusions, POA with severe hypotension requiring vasopressors. Consult with cardiology appreciated. Pulmonary medicine also on consult. BiPAP in place probable re-intubation. Continue Lasix increased to 60 mg IV twice daily, monitor I&O and daily weights, monitor renal function and electrolytes. Echocardiogram as above. Zosyn and Zyvox in place. No sign of pneumonia. 2. Acute non-ST elevated myocardial infarction. Cardiology is on consult. 3. History of coronary artery disease status post PCI of the left main in March 2019. Patient was recommended for cardiothoracic surgery and march however due to patient's condition and high-risk status left main stenting was performed. History of moderate to severe aortic stenosis. Continue aspirin 81 mg daily, Lipitor 10 mg daily, Plavix 75 mg daily, Imdur 60 mg daily, continue Lopressor 25 mg twice daily. 4. Ischemic cardiomyopathy. Continue as in #1. 5. Hypertension. Continue Lasix,. Hydralazine, Norvasc discontinued due to hypotension. 6. Hyperlipidemia. Continue statin 7. Diabetes mellitus type 2. Continue NovoLog scale before meals and at bedtime. Off Prandin 0.5 mg twice daily, Tradjenta 5 mg daily. 8. Alzheimer's dementia. Hold galantamine. 9. Acute kidney injury with chronic kidney disease stage II. Continue Lasix 60 mg IV every 12 hours. 10. Recurrent depression. 11. Valvular heart disease with moderate to severe aortic stenosis and severe mitral regurgitation, mild tricuspid regurgitation. 12. Anemia with history of acute blood loss GI bleed anemia that had recovered in November and December with hemoglobin of 13.6. Ferrlecit 1 13. Pressure ulcers: Coccyx stage III present on admission as stage III showing improvement, left heel deep tissue injury present on admission, right heel stage I. Continue local wound care. 14. Right upper extremity weakness with chronic right shoulder weakness. Consult with Dr. Hernandez appreciated. No further workup is necessary. CODE STATUS: Full code with no chest compressions. Discharge plan: To be determined. PT and OT will be added once patient stabilizes. Impression and plan of care have been directed as dictated by the signing physician. Netta Owens nurse practitioner acting as scribe for signing physician.
--- NOTE | 2020-01-27 11:50 | PN ---
PROGRESS NOTE Mrs. Mcclain is an 89-year-old female who has been was admitted with acute respiratory failure and pneumonia. Patient is currently on the BiPAP. The patient is minimally responsive. She is sleeping. Blood pressure is 123/64 mmHg. The patient's heart rate is 100 to 120 per minute. First and second heart sounds are heard. Lungs reveal bilateral scattered wheezes. The patient's urine output for last 24 hours was only 780 mL. The chest x-ray suggestive of congestive cardiac failure. The patient is currently getting Lasix 60 mg IV b.i.d. RECOMMENDATIONS: The patient is recovering from acute respiratory failure, bilateral pneumonia. Patient has remained oliguric. The patient's Lasix dose probably needs to be increased. MMODL / IJN: [id number] /
[2020-01-27] MEDS ORDERED: DEXTROSE 50% SYRINGE 50 ML IVP ONE ×3 (11:53→23:56)
[2020-01-27 11:54] LABS: Glucose,Whole Blood <20 mg/dL (75-99)
[2020-01-27 11:54] LABS: Glucose,Whole Blood 24 mg/dL (75-99)
[2020-01-27] MEDS: PROPOFOL 1,000 MG in EMPTY BAG 1 BAG IV SCH ×2 (12:05→16:44)
[2020-01-27 12:07] LABS: ABG Base Excess -19.1 mmol/L; ABG Oxygen Saturation 98.3 % (94-97); ABG PCO2 29 mmHg (35-45); ABG PO2 140 mmHg (83-108); ABG TCO2 11 mmol/L (19-24); Allen Test Performed? Yes
[2020-01-27] MEDS: NOREPINEPHRINE 32 MG in SODIUM CHLORIDE 0.9% 218 ML IV SCH (12:07)
[2020-01-27 12:10] LABS: ABG HCO3 10 mmol/L (21-25); ABG PH 7.14 (7.35-7.45)
[2020-01-27 12:11] LABS: Glucose,Whole Blood 89 mg/dL (75-99)
--- NOTE | 2020-01-27 12:51 | XR ---
EXAMINATION TYPE: XR chest 1V portable DATE OF EXAM: 01/27/2020 COMPARISON: 01/27/2020 HISTORY: Status post intubation TECHNIQUE: Single frontal view of the chest is obtained. FINDINGS: Endotracheal tube terminates at the level of the aortic arch and appears appropriately eduardo russell located approximately 2 cm from the sreedhar. Endotracheal tube also appears satisfactory. Left sub clavian central venous catheter is unchanged. Partial visualization of a cervical fusion device. Pers istent bibasilar patchy opacities, pulmonary vascular congestion and bibasilar airspace disease. IMPRESSION: Reintubation with appropriately placed enteric and endotracheal tubes. Similar-appearing small pleural effusions and bibasilar airspace disease with pulmonary vascular congestion.
--- NOTE | 2020-01-27 12:53 | P.PN ---
Subjective Progress Note Date: 01/27/20 Principal diagnosis: This is an 89-year-old female, seen in consultation because of acute kidney injury, congestive heart failure, post extubation. With diuresis she has improved and creatinine down to 1 unit Last night she had to be reintubated as he became obtunded. Her pH is down to 7.1 and her bicarbonate was 26 and now down. She is now on levo fed 100% FiO2. 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 19 as of this morning. Her blood pressure is remaining stable, but fluctuates between 80 to 122. Urine output 540 and 2 and 40 mL the last 2 shifts. Lactic acid is not available. Patient is on antibiotics History of present illness. patient of Dr. Sales with known medical history of chronic systolic heart failure and ischemic cardiomyopathy with known ejection fraction 35-40%, severe mitral regurgitation, moderate aortic stenosis, hypertension, chronic kidney disease stage III, type 2 diabetes, Alzheimer's dementia, coronary artery disease status post PCI to the left main and LAD in 2018, hypertension, hyperlipidemia, recurrent depression. Patient is currently living at home with her daughter. She was recently at [facility] for subacute rehab. 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 After patient was discharged to [place], she went to [facility] had increased edema to the arms and legs for which Lasix was on a 20 g twice daily. This was eventually decreased to every day. She was also on Nepro supplement. Patient has had increasing shortness of breath. She was utilizing 1-1-1/2 L of oxygen at home and normally pulse oxing 90-96%. Daughter gradually increase this until she was up to 5 L of oxygen yesterday and then called EMS. Patient normally is ambulatory with a walker with assistance. Objective - Vital Signs Vital signs: Vital Signs Temp 98.8 F 01/27/20 08:00 Pulse 126 H 01/27/20 12:00 Resp 23 01/27/20 12:00 BP 89/30 01/27/20 12:00 Pulse Ox 91 L 01/27/20 12:00 Intake & Output 01/26/20 01/27/20 01/27/20 18:59 06:59 18:59 Intake Total 890 712 504 Output Total 540 240 10 Balance 350 472 494 Weight 78 kg 77.5 kg Intake: IV 812 712 404 0.9 240 240 80 Linezolid 600 mg In 300 300 300 Dextrose/Water 1 300ml. bag @ 150 mls/hr IVPB Q12HR [facility] Rx#:[id number] Piperacillin-Tazobactam 3 200 100 .375 gm In Sodium Chloride 0.9% 100 ml @ 25 mls/hr IVPB Q12HR [facility] Rx #:[id number] pressure bag 72 72 24 Intake, IV Titration 100 Amount Norepinephrine 32 mg In 0 Sodium Chloride 0.9% 218 ml @ 0.05 MCG/KG/MIN 1. 821 mls/hr IV .Q24H [facility] Rx#:[id number] Piperacillin-Tazobactam 3 100 .375 gm In Sodium Chloride 0.9% 100 ml @ 25 mls/hr IVPB Q8HR [facility] Rx# :[id number] Propofol 1,000 mg In 0 Empty Bag 1 bag @ Titrate IV .Q0M [facility] Rx#: [id number] Tube Feeding 78 Output: Urine 540 240 10 Other: Voiding Method Indwelling Catheter Indwelling Catheter # Bowel Movements 1 ABP, PAP, CO, CI - Last Documented Arterial Blood Pressure 124/44 On examination she is a obtunded on sedation She is on 100% FiO2. Monitor shows tachycardia looks regular with bundle branch block pattern HEENT exam no JVP neck is supple no facial asymmetry Lungs are clear to auscultation fair air entry bilaterally Heart sounds are unremarkable for any murmur rub gallop. Her abdomen soft nontender but patient is sedated. Extremity exam reveals tight edema of both upper extremities and 1-2+ lower extremity Neurologically sedated - Labs CBC & Chem 7: 01/27/20 04:30 01/27/20 04:30 Labs: Abnormal Lab Results - Last 24 Hours (Table) 01/23/20 01/26/20 01/26/20 Range/Units 09:30 18:48 23:34 WBC (3.8-10.6) k/uL RBC (3.80-5.40) m/uL Hgb (11.4-16.0) gm/dL Hct (34.0-46.0) % MCV (80.0-100.0) fL MCHC (31.0-37.0) g/dL RDW (11.5-15.5) % ABG pH (7.35-7.45) ABG pCO2 (35-45) mmHg ABG pO2 (83-108) mmHg ABG HCO3 (21-25) mmol/L ABG Total CO2 (19-24) mmol/L ABG O2 Saturation (94-97) % Chloride (98-107) mmol/L BUN (7-17) mg/dL Creatinine (0.52-1.04) mg/dL POC Glucose (mg/dL) 155 H 140 H (75-99) mg/dL Calcium (8.4-10.2) mg/dL Viral Test See Below H 01/27/20 01/27/20 01/27/20 Range/Units 04:30 04:30 06:02 WBC 10.8 H (3.8-10.6) k/uL RBC 2.68 L (3.80-5.40) m/uL Hgb 8.3 L (11.4-16.0) gm/dL Hct 27.5 L (34.0-46.0) % MCV 102.6 H (80.0-100.0) fL MCHC 30.1 L (31.0-37.0) g/dL RDW 17.3 H (11.5-15.5) % ABG pH (7.35-7.45) ABG pCO2 (35-45) mmHg ABG pO2 (83-108) mmHg ABG HCO3 (21-25) mmol/L ABG Total CO2 (19-24) mmol/L ABG O2 Saturation (94-97) % Chloride 111 H (98-107) mmol/L BUN 24 H (7-17) mg/dL Creatinine 1.19 H (0.52-1.04) mg/dL POC Glucose (mg/dL) 102 H (75-99) mg/dL Calcium 8.3 L (8.4-10.2) mg/dL Viral Test 01/27/20 01/27/20 01/27/20 Range/Units 11:50 11:52 12:05 WBC (3.8-10.6) k/uL RBC (3.80-5.40) m/uL Hgb (11.4-16.0) gm/dL Hct (34.0-46.0) % MCV (80.0-100.0) fL MCHC (31.0-37.0) g/dL RDW (11.5-15.5) % ABG pH 7.14 L* (7.35-7.45) ABG pCO2 29 L (35-45) mmHg ABG pO2 140 H (83-108) mmHg ABG HCO3 10 L* (21-25) mmol/L ABG Total CO2 11 L (19-24) mmol/L ABG O2 Saturation 98.3 H (94-97) % Chloride (98-107) mmol/L BUN (7-17) mg/dL Creatinine (0.52-1.04) mg/dL POC Glucose (mg/dL) 24 L <20 L (75-99) mg/dL Calcium (8.4-10.2) mg/dL Viral Test Microbiology - Last 24 Hours (Table) 01/21/20 01:58 Blood Culture - Final Blood No Growth after 144 hours Assessment and Plan Assessment: Impression 1. Acute kidney injury which had resolved from cardiorenal syndrome with creatinine coming down to 1 but deteriorated overnight and looks like she may be septic with severe acidosis with a pH of 7.1 and a pCO2 of 29. She had to be reintubated. 2. Congestive heart failure. 3. Significant metabolic acidosis with a pH of 7.1 for himself 29 suggestive of sepsis 4. Anemia hemoglobin is 8.3, previous 7.5. Recommendation . 1. Would gently diurese and see how she would react as the x-ray shows congestive heart failure and she on 100% FiO2. Will discuss this with intensive 2. Lactic acid level. 3. Repeat blood gases show pH is 7.3. Indicating some improvement in the acidosis 4. Maintain blood pressure with inotropes as needed
[2020-01-27] MEDS ORDERED: SODIUM CHLORIDE 0.9% 1,000 ML IV ONE (13:49)
[2020-01-27] MEDS: SODIUM CHLORIDE 0.9% 500 ML 500 ML IV SCH (13:50)
[2020-01-27] MEDS ORDERED: SODIUM BICARB 8.4% 50 ML SYR (1 MEQ/ML) IV STA ×2 (13:53→16:24)
[2020-01-27] MEDS: SODIUM BICARB 8.4% 50 ML SYR (1 MEQ/ML) IV STA ×2 (13:55→14:18)
[2020-01-27] MEDS: ASPIRIN 81 MG PO SCH (14:00)
[2020-01-27] MEDS: ATORVASTATIN 10 MG TAB PO SCH (14:00)
[2020-01-27] MEDS: CLOPIDOGREL 75 MG TAB PO SCH (14:00)
[2020-01-27] MEDS: ISOSORBIDE MONONITRATE ER 60 MG TAB.ER.24H PO SCH (14:00)
[2020-01-27] MEDS ORDERED: SODIUM CHLORIDE 0.9% 1,000 ML IV SCH (14:00)
[2020-01-27] MEDS: METOPROLOL TARTRATE 25 MG TAB PO SCH ×2 (14:01→20:34)
--- NOTE | 2020-01-27 16:10 | P.PN ---
Subjective Progress Note Date: 01/27/20 89-year-old female patient with known history of CAD and CHF with an ejection fraction of 55-40% and history of valvular heart disease with severe MR and severe TR along with other comorbidities such as hypertension and hyperlipidemia and diabetes mellitus. The patient came into the hospital because of worsening shortness of breath. Her chest x-ray shows cardiomegaly and pulmonary edema and possibly some bilateral pleural effusion. Her shortness of breath developed 4 days ago and progressively got worse. She also had some increased cough and congestion either to bring up much sputum. No fever or chills. The influenza screen was negative. ProBNP level was 71,000. Troponin peaked at 1.4. Her serum lactate was at one 0.8. Creatinine is at 1.5 with a white second of 13.7 and a hemoglobin of 8.4. EKG showing a normal sinus rhythm. She weighs over the inferior leads and inferior leads suggestive of sepsis/inferior infarct. No ST segment elevation or depression. Currently, the patient is on BiPAP for respiratory support at a pressure of 12/6 with an FiO2 of 60%. The patient is also receiving IV Lasix 40 mg every 12 hours. On today's evaluation of 01/22/2020 the patient is in the intensive care unit. Note that overnight the patient's sister status decompensated. She failed BiPAP therapy. She became progressively more tachypneic and unresponsive. She was moved to the intensive care unit where she was intubated and she was placed on a mechanical ventilator. This morning she assist-control mode at the rate of 20 with a tidal volume of 450 and FiO2 of 80% and a PEEP of 5. The blood gases from today showed a pH of 7.51 with a pCO2 of 35 and pO2 of 109. The patient has no significant orotracheal secretions. The chest x-ray from today showing pulmonary edema with bilateral pleural effusions. Urine output is in order of 30-40 mL an hour. The patient is currently on norepinephrine infusion which is running at 0.1 g per KG per minute. The patient has no fever. The patient is in sinus rhythm. A repeat echocardiogram was done today. Creatinine is stable at 1.6. No significant leukocytosis. Note that, I talked to the family again. Based on the reported formation, the patient had his AV of vancomycin-induced skin rash with some skin sloughing approximately 2 months ago for which she was hospitalized in early hospital and she was treated and she was discharged home. She has stage II small 3 wounds on her coccyx. No other significant events overnight. She is was sedated with propofol which is running at 50 g per KG per minute. On 01/23/2020 on seeing the patient in intensive care unit for a follow-up. This morning the patient is sedated with propofol and she is at 40 g per minute. She is well sedated and she is calm and comfortable. She is on a mechanical ventilator. She is on assist control mode at the rate of 20 with tidal volume of 400 and FiO2 of 40% and a PEEP of 5. Earlier this morning at around 4 AM, the patient encountered desaturation and the blood gases was done at that time showed a pH of 7.39 with a pCO2 of 42 and pO2 of 58. Based on that, the patient was brought up to an FiO2 of 100% and a PEEP was brought up to 10. Her pulse ox improved and she is at 100% right now and we were able to wean her down to 80%. A CAT scan of the chest was done yesterday showed bilateral pleural effusions, compressive atelectasis in lung bases and interstitial edema consistent with fluid overload. She was getting Lasix 40 mg IV push every 12 hours and her urine output is ranging between 5-30 mL an hour. Norepinephrine i nfusion is running at 0.1 g per KG her minutes for hemodynamic support. Her most recent systolic blood pressure is 106 with a mean of 66. The chest x-ray from today shows pulmonary edema and there is worsening consolidation of the left compared to the right which obviously raises the concern for an underlying pneumonia. The pro-calcitonin level was 0.33 and the patient was covered with IV Zosyn. She is afebrile for now. The white cell count is at 14.3. She is on enteral feeding for nutritional support and she is receiving vital high protein at the rate of 40 mL an hour. Hemoglobin stable at 7.9. Family is at the bedside and I updated them on her condition. She is still undergoing full medical support at this point in time. On 01/24/2020 I'm seeing the patient for a follow-up. She is currently on a 40 mics of propofol. She is well sedated for now. A sedation holiday will be given to her today. In terms of her breathing, she remains on a mechanical ventilator on assist control mode at the rate of 20 with a tidal volume of 400 and FiO2 of 50% with a PEEP of 10. Her blood gases from this morning showed improvement in oxygenation. Her pH was at 7.42 with a pCO2 of 42 and pO2 of 162. Chest x-ray shows improvement in the left lung consolidation and in the volume overload. The patient still has some bilateral pleural effusions. Hemodynamically, she is doing better. She is down to 0.1 mics of norepinephrine infusion. Urine output is in order of 20-40 mL an hour. She is in a negative fluid balance for now as she is mobilizing the fluids. The bronchoscopy was d one and the bronchioloalveolar lavage has not yielded any significant microbial growth. She is currently on a combination of Zosyn and Zyvox. She is afebrile. She is tolerating his tube feeds which is in the form of vital AF. No fever. No other significant events overnight. She remains in a normal sinus rhythm for now. 01/25/2020 I'm seeing the patient for a follow-up. Note that yesterday, we'll discontinue the sedation and it took the patient at least 12 hours to get more awake and earlier this morning at around 4 AM he became quite restless. Based on that, she was placed back on sedation at 20 g of propofol. S1 discontinued 8:30 o'clock this morning. Upon stimulation she opens up her eyes pH is not following any commands yet. I'm hoping that we're going to see some more impr ovement in her level of alertness over the next few hours. She remains on assist control mode at the rate of 20 with an FiO2 of 40% and a PEEP was at 6 with a tidal volume of 400. The blood gas from this morning showed improved oxygenation. The pO2 is at 132 with a pH of 7.45 and a pCO2 of 43. Renal function continues to improve and the patient's creatinine is down to 1.01. The fluid balance is negative as the patient is being diuresed. The neck fluid balance has been approximately a liter negative over the past 24 hours. She remains on IV Lasix 40 mg every 12 hours. She is also on a combination of antibiotics including Zosyn and Zyvox. Pressors are still being utilized for blood pressure support. Norepinephrine infusion has been titrated down and is currently down to 0.03 g per KG per minute. The patient is also continuing to receive enteral feeding. Cardiac rhythm is sinus. She looks quite comfortable. She has a triple-lumen catheter in the left subclavian. CVP is still on the lower side. White cell count is not elevated. She is afebrile. The bronchioloalveolar lavage was collected earlier showed no microbial growth. On 01/26/2020 I'm seeing the patient for a follow-up. The patient has been taken off sedation for the past 24 hours and this morning she is awake and following commands. Took her approximately 24 hours to get fully awake and her bowels. Earlier this morning she was an assist-control mode at the rate of 20 with a tidal volume of 400 and FiO2 of 35% with a PEEP of 5. Based on this, we performed weaning parameters and the patient had a rapid shallow breathing index of 33 with a minute ventilation of 10 L and a tidal volume of 522 mL. I give the patient spontaneous breathing trial with a pressure support of 5 and a PEEP of 5. Subsequent blood gases showed a pH of 7.47 with a pCO2 of 37 and pO2 of 81. Chest x-ray shows improvement in the pulmonary edema. I extubated this patient to 5 L of oxygen by nasal cannula. She is doing well or now. She is following simple commands. No agitation. Restlessness. No shortness of caridad th. She is making good urine while being on IV Lasix. The patient has diuresed adequately for now she is still taking Lasix extremity milligrams every 8 hours. Her net fluid balance is negative and her electrolytes showHis sodium 141 with a BUN of 23 and a creatinine of 0.9. Potassium level is at 3.4 and this is to be replaced. She is afebrile. She is hemodynamically stable. Norepinephrine infusion has been discontinued. She is on accommodation of Zosyn and Zyvox. She is on DuoNeb nebulized treatments around the clock. The bronchioloalveolar lavage was obtained from the left lung showed no microbial growth. The patient remains in a normal sinus rhythm. Family is at the bedside. She was tolerating her enteral feeding for incision support. NG tube was removed today at the time of extubation. On 01/27/2020, the patient's is struggling with her breathing and this has been progressively getting worse since public relations writer. Noted the patient was extubated yesterday and extubation process went fine without any major difficulties. The patient was extubated to nasal cannula. She was doing well and she was able to breathe comfortably without any major difficulties. She was on Lasix 60 mg IV push every 12 hours. Note that in the public relations writer hours, the patient became progressively more short of breath. Another dose of Lasix was given 60 mg IV push. She was placed on BiPAP. Nevertheless, her breathing progressively got worse. The patient became progressively more lethargic and obtunded and unresponsive. She became progressively more tachypneic and earlier this morning at a time of my evaluation the patient was quite rough unresponsive and struggling with her breathing. The daughter was the bedside. I discussion with her explained to her the current situation. The chest x-ray showed recurrence of pulmonary edema with bilateral pleural effusions.. Based on this, we decided to reintubate the patient. The daughter understood that this may be futile procedure. She wanted to give her one more try as the patient did well initially postextubation. For that reason we decided to reintubate the patient. Currently the patient is intubated and she is on assist control mode of ventilation. Her current vent settings include an assist-control mode at the rate of 18, with a tidal volume of 400 and FiO2 of 80% and a PEEP of 5. . The blood gases that was done post intubation showed a pH of 7.14 with a pCO2 of 29 and pO2 140 The post intubation chest x-ray showed bilateral pleural effusions, pulmonary vessel congestion and bibasilar pulmonary infiltrates. The patient had a lactic acid level of 15. The patient had also become hypotensive and the patient was started on norepinephrine infusion for blood pressure control which is currently running at 0.2 mcg/kg per minute. Her white cell count is at 10.8. Hemoglobin was at 8.3. Rest of the blood work and electrodes are all within normal limits from earlier this morning with a BUN of 24 and creatinine of 1.19. The patient was restarted the propofol is currently running somewhere between 15-20 mcg/kg per minute. NG tube is in place. Objective - Vital Signs Vital signs: Vital Signs Temp 98.8 F 01/27/20 08:00 Pulse 114 H 01/27/20 15:49 Resp 17 01/27/20 15:30 BP 104/47 01/27/20 15:30 Pulse Ox 100 01/27/20 15:30 Intake & Output 01/26/20 01/27/20 01/27/20 18:59 06:59 18:59 Intake Total 251 827 9656.745 Output Total 540 240 10 Balance 332 877 1770.745 Weight 78 kg 77.5 kg Intake: IV 210 690 1309 0.9 796 505 6345 Linezolid 600 mg In 300 300 300 Dextrose/Water 1 300ml. bag @ 150 mls/hr IVPB Q12HR [facility] Rx#:[id number] Piperacillin-Tazobactam 3 200 100 .375 gm In Sodium Chloride 0.9% 100 ml @ 25 mls/hr IVPB Q12HR [facility] Rx #:[id number] pressure bag 72 72 54 Intake, IV Titration 110.745 Amount Norepinephrine 32 mg In 10.745 Sodium Chloride 0.9% 218 ml @ 0.05 MCG/KG/MIN 1. 821 mls/hr IV .Q24H [facility] Rx#:[id number] Piperacillin-Tazobactam 3 100 .375 gm In Sodium Chloride 0.9% 100 ml @ 25 mls/hr IVPB Q8HR [facility] Rx# :[id number] Propofol 1,000 mg In 0 Empty Bag 1 bag @ Titrate IV .Q0M [facility] Rx#: [id number] Tube Feeding 78 Output: Urine 540 240 10 Other: Voiding Method Indwelling Catheter Indwelling Catheter Indwelling Catheter # Bowel Movements 1 ABP, PAP, CO, CI - Last Documented Arterial Blood Pressure 94/33 - Exam Intubated on mechanical ventilator. Orogastric and orotracheal tube are both in place and the patient is well sedated. Head exam was generally normal. There was no scleral icterus or corneal arcus. Mucous membranes were moist. Neck was supple and without jugular venous distension, thyromegaly, or carotid bruits. Carotids were easily palpable bilaterally. There was no adenopathy. Lungs sounds are diminished bilaterally along with crackles in the lung bases. Heart sounds are irregular, this systolic ejection murmur grade 4/6 heard throughout the precordium mainly in the apex and radiating to the neck bila terally. Abdominal exam revealed normal bowel sounds. The abdomen was soft, non-tender, and without masses, organomegaly, or appreciable enlargement of the abdominal aorta. Examination of the extremities revealed easily palpable radial, femoral and pedal pulses. There was no cyanosis, clubbing or edema. Examination of the skin shows 3 stage II sacral decub ulcerations. Neurologically the patient has been sedated and she is calm and comfortable. No focal neurological deficits. She withdraws to painful stimulation. - Labs CBC & Chem 7: 01/27/20 04:30 01/27/20 04:30 Labs: Abnormal Lab Results - Last 24 Hours (Table) 01/26/20 01/26/20 01/27/20 Range/Units 18:48 23:34 04:30 WBC 10.8 H (3.8-10.6) k/uL RBC 2.68 L (3.80-5.40) m/uL Hgb 8.3 L (11.4-16.0) gm/dL Hct 27.5 L (34.0-46.0) % MCV 102.6 H (80.0-100.0) fL MCHC 30.1 L (31.0-37.0) g/dL RDW 17.3 H (11.5-15.5) % ABG pH (7.35-7.45) ABG pCO2 (35-45) mmHg ABG pO2 (83-108) mmHg ABG HCO3 (21-25) mmol/L ABG Total CO2 (19-24) mmol/L ABG O2 Saturation (94-97) % ABG Lactic Acid (0.5-1.6) mmol/L Chloride (98-107) mmol/L BUN (7-17) mg/dL Creatinine (0.52-1.04) mg/dL POC Glucose (mg/dL) 155 H 140 H (75-99) mg/dL Calcium (8.4-10.2) mg/dL 01/27/20 01/27/20 01/27/20 Range/Units 04:30 06:02 11:50 WBC (3.8-10.6) k/uL RBC (3.80-5.40) m/uL Hgb (11.4-16.0) gm/dL Hct (34.0-46.0) % MCV (80.0-100.0) fL MCHC (31.0-37.0) g/dL RDW (11.5-15.5) % ABG pH (7.35-7.45) ABG pCO2 (35-45) mmHg ABG pO2 (83-108) mmHg ABG HCO3 (21-25) mmol/L ABG Total CO2 (19-24) mmol/L ABG O2 Saturation (94-97) % ABG Lactic Acid (0.5-1.6) mmol/L Chloride 111 H (98-107) mmol/L BUN 24 H (7-17) mg/dL Creatinine 1.19 H (0.52-1.04) mg/dL POC Glucose (mg/dL) 102 H 24 L (75-99) mg/dL Calcium 8.3 L (8.4-10.2) mg/dL 01/27/20 01/27/20 01/27/20 Range/Units 11:52 12:05 12:51 WBC (3.8-10.6) k/uL RBC (3.80-5.40) m/uL Hgb (11.4-16.0) gm/dL Hct (34.0-46.0) % MCV (80.0-100.0) fL MCHC (31.0-37.0) g/dL RDW (11.5-15.5) % ABG pH 7.14 L* (7.35-7.45) ABG pCO2 29 L (35-45) mmHg ABG pO2 140 H (83-108) mmHg ABG HCO3 10 L* (21-25) mmol/L ABG Total CO2 11 L (19-24) mmol/L ABG O2 Saturation 98.3 H (94-97) % ABG Lactic Acid 17.2 H* (0.5-1.6) mmol/L Chloride (98-107) mmol/L BUN (7-17) mg/dL Creatinine (0.52-1.04) mg/dL POC Glucose (mg/dL) <20 L (75-99) mg/dL Calcium (8.4-10.2) mg/dL Microbiology - Last 24 Hours (Table) 01/21/20 01:58 Blood Culture - Final Blood No Growth after 144 hours Assessment and Plan Plan: 1 acute hypoxic respiratory failure secondary to acute CHF exacerbation with a component of pulmonary edema and bilateral pleural effusions. The patient was extubated and postextubation, within 24 hours, she went to respiratory failure. She failed BiPAP and she had to be reintubated earlier this morning. Currently she is back on assist control mode of ventilation. She has significant metabolic alkalosis/lactic acidosis and currently she is back on high-dose pres sors. Chest x-ray still showing pulmonary edema and [place] pleural effusions. 2 acute non-ST segment elevation myocardial infarction with elevated troponins modest troponin peaked at 1.4 3 multivessel coronary artery disease with previous stenting of the LAD and subsequent stenting of the left main that was done in March 2019 with the use of a Impella device. The patient has segmental wall motion abnormalities. The underlying ejection fraction is no other of 35%. 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 The EGD that was done showed mild gastritis without evidence of an acute bleeding. The patient colonoscopy that showed no evidence of any acute bleeding and the patient had pandiverticulosis. 16 acute hypoxic respiratory failure intubated on a mechanical ventilator. 17 stage II sacral decubitus ulceration. 18 severe lactic acidosis 19 hypotension currently pressor dependent. Most likely cardiogenic in nature. Plan Currently the patient is intubated. The patient has severe lactic acidosis. This is probably related to significant respiratory distress and respiratory failure that occurred over the past several hours post extubation. We'll monitor the lactic acid level. We'll give 2 g of bicarb. Continue vent support Continue pressor support and the patient is on norepinephrine infusion at 0.2 mcg/kg per minute. Continue antibiotics. Will need to restart Lasix once the blood pressure tolerates. Condition is critical. Obviously her prognosis poor as the patient has failed extubation. Her chance of recovery is becoming way lower patient with above- mentioned comorbidities. The family is aware. We'll continue to follow. This 30 minutes excluding time to do any procedures. Condition is critical and this evaluation was done and more than 30 minutes. Condition is critical. Time with Patient: Greater than 30
--- NOTE | 2020-01-27 16:11 | P.PCN ---
Date of Procedure: 01/27/20 Preoperative Diagnosis: Respiratory compromise, acute hypoxic respiratory failure Postoperative Diagnosis: Same Procedure(s) Performed: Intubation Anesthesia: MAC Surgeon: Varinder Samano Pathology: other Condition: stable Disposition: ICU Operative Findings: Indication: Respiratory compromise. A time-out was completed verifying correct patient, procedure, site, positioning, and implant(s) or special equipment if applicable. The patient was positioned appropriately and a #8 endotracheal tube was placed under direct laryngoscopy. The tube was anchored at 22 cm at the teeth. Correct placement was confirmed by presence of bilateral breath sounds without air sounds in the abdomen on auscultation. An end-tidal CO2 monitor was also used to confirm tracheal placement of the ET tube. A chest x-ray was ordered to assess for pneumothorax and verify endotracheal tube placement. The patient tolerated the procedure well and there were no complications.
[2020-01-27 16:14] LABS: ABG Base Excess -20.2 mmol/L; ABG Oxygen Saturation 99.6 % (94-97); ABG PCO2 22 mmHg (35-45); ABG PO2 193 mmHg (83-108); ABG TCO2 9 mmol/L (19-24); Allen Test Performed? Yes
[2020-01-27 16:19] LABS: ABG HCO3 8 mmol/L (21-25); ABG PH 7.18 (7.35-7.45)
[2020-01-27 18:06] LABS: Glucose,Whole Blood 20 mg/dL (75-99)
[2020-01-27 18:06] LABS: Glucose,Whole Blood <20 mg/dL (75-99)
[2020-01-27 18:20] LABS: Glucose,Whole Blood 80 mg/dL (75-99)
[2020-01-27] MEDS ORDERED: DEXTROSE 5% IN WATER 1,000 ML IV ONE (18:43)
[2020-01-27 20:16] LABS: Glucose,Whole Blood 37 mg/dL (75-99)
[2020-01-27 20:16] LABS: Glucose,Whole Blood 72 mg/dL (75-99)
[2020-01-27 23:54] LABS: Glucose,Whole Blood 61 mg/dL (75-99)
[2020-01-28] MEDS: PROPOFOL 1,000 MG in EMPTY BAG 1 BAG IV SCH (00:06)
[2020-01-28] MEDS: PIPERACILLIN-TAZOBACTAM 3.375 GM in SODIUM CHLORIDE 0.9% 100 ML IVPB SCH (00:09)
[2020-01-28] MEDS: INSULIN ASPART (NovoLOG) 100 UNIT/ML VIAL SQ SCH ×2 (00:09→07:09)
[2020-01-28] MEDS: HEPARIN SODIUM,PORCINE 5,000 UNIT/ML 1 ML VIAL SQ SCH (00:09)
[2020-01-28 00:17] LABS: Glucose,Whole Blood 181 mg/dL (75-99)
[2020-01-28 04:02] LABS: ABG Oxygen Saturation 99.2 % (94-97); ABG PCO2 27 mmHg (35-45); ABG PO2 336 mmHg (83-108); ABG TCO2 5 mmol/L (19-24)
[2020-01-28 04:14] LABS: Anisocytosis Slight; HCT 30.4 % (34.0-46.0); HGB 7.9 gm/dL (11.4-16.0); Hypochromasia Marked; MCH 31.4 pg (25.0-35.0); MCHC 25.9 g/dL (31.0-37.0); Mean Platelet Volume 9.9; Platelet Count 254 k/uL (150-450); RBC 2.51 m/uL (3.80-5.40); RDW 17.3 % (11.5-15.5); WBC 19.4 k/uL (3.8-10.6)
[2020-01-28 04:25] LABS: Glucose,Whole Blood 130 mg/dL (75-99)
[2020-01-28 04:27] LABS: MCV 121.1 fL (80.0-100.0)
[2020-01-28 04:27] LABS: Allen Test Performed? no
[2020-01-28 04:30] VITALS: BP 97/63; PULSE 105; RESP 16; TEMP 97.9
[2020-01-28 04:38] LABS: African American GFR (CKD) 17 (>60 ml/min/1.73 sqM); Blood Urea Nitrogen 26 mg/dL (7-17); Calcium 7.9 mg/dL (8.4-10.2); Chloride 108 mmol/L (98-107); Glucose 119 mg/dL (74-99); Non-African American GFR(CKD) 15 (>60 ml/min/1.73 sqM); Sodium 145 mmol/L (137-145)
[2020-01-28 04:51] LABS: Carbon Dioxide <5 mmol/L (22-30)
[2020-01-28] MEDS ORDERED: MORPHINE SULFATE 4 MG/ML SYRINGE IV PRN (04:51)
[2020-01-28 04:55] LABS: Macrocytosis Marked
[2020-01-28] MEDS ORDERED: MORPHINE SULFATE (100 MG/2 ML) 100 MG in SODIUM CHLORIDE 0.9% 100 ML IV SCH (05:00)
--- NOTE | 2020-01-28 10:43 | P.DS ---
Providers Date of admission: 01/21/20 04:57 Attending physician: Yee Sales Consults: 01/21/20 04:56 Consult Physician Routine Consulting Provider: Lee Sullivan Consult Reason/Comments: CHF exacerbation. Elevated troponin Do you want consulting provider notified?: Yes 01/21/20 06:02 Consult Physician Routine Consulting Provider: Anabel Arellano Consult Reason/Comments: CHF. Requiring Bi-pap Do you want consulting provider notified?: Yes 01/22/20 01:00 Consult Physician Urgent Consulting Provider: Lucia Farmer Consult Reason/Comments: No urine output Do you want consulting provider notified?: Already Contacted 01/25/20 13:55 Consult Physician Stat Consulting Provider: Ivory Hernandez Consult Reason/Comments: RUE weakness Do you want consulting provider notified?: Yes Primary care physician: Yee Sales Hospital Course: Discharge summary/ summary This is an 89-year-old female patient of Dr. Sales with known medical history of chronic systolic heart failure and ischemic cardiomyopathy with known ejection fraction 35-40%, severe mitral regurgitation, moderate aortic stenosis, hypertension, chronic kidney disease stage III, type 2 diabetes, Alzheimer's dementia, coronary artery disease status post PCI to the left main and LAD in 2018, hypertension, hyperlipidemia, recurrent depression. Patient is currently living at home with her daughter. She was recently at [facility] for subacute rehab. 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 After patient was discharged to [place], she went to [facility] had increased edema to the arms and legs for which Lasix was on a 20 g twice daily. This was eventually decreased to every day. She was also on Nepro supplement. Patient has had increasing shortness of breath. She was utilizing 1-1-1/2 L of oxygen at home and normally pulse oxing 90-96%. Daughter gradually increase this until she was up to 5 L of oxygen yesterday and then called EMS. Patient normally is ambulatory with a walker with assistance. She needs help with feeding. Patient has been under increased stress especially the last 3 days as a daughter on December 24. At the time of this evaluation, patient is on BiPAP. She is able to answer some simple questions, most of the history is obtained from the patient's daughter. Patient was brought into [facility] emergency center for evaluation. WBC 13.7, hemoglobin 8.4, platelets 436, sodium 134, potassium 4.1, creatinine 1.56 with a GFR of 30, lactic acid on admission 4. 5 repeat 1.8, magnesium 2.4, troponin 0.921 and repeat 1.440, and NT proBNP 71,100, TSH 2.570. EKG sinus rhythm with ST depression in anterior lateral leads, chronic when compared to old EKGs. Patient has been afebrile, heart rate 69, respiratory rate 26, pulse ox 92% on BiPAP, blood pressure 131/68. Chest x-ray shows congestive heart failure pulmonary edema compared to old exam. Pleural effusions new. Patient has been admitted to the cardiac stepdown unit and consults with pulmonary medicine and cardiology. 01/21: Yesterday afternoon, patient developed increasing shortness of breath while on BiPAP 60% FiO2. Pulse ox dropped down 88%. Chest x-ray was ordered which revealed congestive heart failure pulmonary edema. Edema appears improved compared to exam earlier today. Patient was given IV Lasix 40 mg and Xanax and Sunshine catheter was placed. Nursing clarified CODE STATUS is full code. Patient was moved into intensive care unit and intubated and placed on mechanical ventilation. Patient remains intubated and on mechanical ventilation with tidal volume 400, FiO2 50, PEEP 5. OG tube in place with bile/brown return. Patient has been afebrile, heart rate 75, blood pressure 118/47. Repeat blood work reveals WBC 13.8, hemoglobin 7.8, electrolytes within normal limits. BUN 47 creatinine 1.62, blood glucose running between 187 and 230. Cortisol level greater than 123 and hydrocortisone discontinued. Blood culture reveals no growth at 24 hours. Urine culture in progress. Zosyn was added for prophylaxis by Dr. Samano, no clear pneumonia. Echocardiogram reveals EF 35-40%, mild aortic regurgitation, moderate to severe aortic stenosis, moderate to severe mitral regurgitation, mild tricuspid regurgitation. 01/22: Patient remains in intensive care unit intubated and on mechanical ventilation. Tidal volume 400, FiO2 80 and PEEP of 10. Patient had a very rough night with a drop in her temperature, drop in her blood pressure and pulse ox. She was placed on 100% oxygen and Levophed was increased to 20 mics. CAT scan of the chest was done last evening which reveals suspect fluid overload state as there is new mild to moderate diffuse soft tissue anasarca most prominent over the visualized upper abdomen. There is small to moderate-sized bilateral pleural effusions and fairly moderate left greater than right central alveolar edema. Underlying infiltrates not excluded particularly in the left lung. Patient has been afebrile, heart rate 106, blood pressure 117/71. Repeat blood work reveals WBC 14.3, hemoglobin 7.9, platelet count 398. Potassium 3.2 and his been replaced, BUN 46 and creatinine 1.56. Blood sugar 149. Pro- calcitonin was 0.33. Chest x-ray this morning reveals worsening airspace disease. Correlate for congestive heart failure with pulmonary edema, pneumonia with associated effusions. This morning, patient underwent a flexible bronchoscopy and BAL of the left upper lobe and no significant abnormalities were seen. No foreign bodies, lesions, significant secretions. Dr. Samano has added and Zyvox today to cover MRSA as she has a history and patient is also on IV Zosyn. Patient received a dose of Ferrlecit yesterday. Patient has been started on tube feedings. Patient has had urine output of less than 10 mL/h currently at 20 after IV Lasix. Repeat echocardiogram was done. CVP is 5-8. Discussed with the patient's daughter current condition and at this time, chest ultrasound will be delayed until patient is off the ventilator. Patient's daughter has discussed with her brother the patient's CODE STATUS and agreed to make her no code. Plan is to continue aggressive treatment but if patient's heart stops no CPR. 01/23: Patient remains intubated and on mechanical ventilation with tidal volume 400, FiO2 of 50 and PEEP of 8. Urine output has significantly improved. She is on more levo fed today. She is on tube feedings at 14 mL per hour. No bowel movement. Repeat chest x-ray shows improvement in aeration. There may be basilar effusions and associated atelectasis versus pneumonia, edema. Coronary artery disease. Patient has been afebrile, heart rate 85, blood pressure currently 116/57. Repeat lab work reveals WBC 10.3, hemoglobin 8, platelet count 812. Sodium 141, potassium 2.8 has been replaced, chloride 109, CO2 26, BUN 35 and creatinine 1.22. Blood sugars running between 146 and 191. Bronchial wash cytology and cultures are pending. Patient is continued on Zyvox and Zosyn. Patient is to have a sedation holiday today. Dr. Farmer has increased Lasix to 60 mg IV twice daily 01/24: Patient remains intubated and on mechanical ventilation with tidal volume 400, FiO2 40, PEEP of 5. Patient is currently off sedation and will open eyes, nod her head. She is able to squeeze was with her left hand and wiggle both toes. Dr. Hernandez on consult added due to lack of movement to the right hand. Patient is on levo fed which is to be weaned down. She has had good urine output. Patient has been afebrile, heart rate 69, blood pressure 144/62. WBC 8.4, hemoglobin 7.9, platelet count 325. BUN 26 creatinine 1.01. Capillary blood glucose running between 163 and 202. 01/25: Patient remains in intensive care unit. Patient was successfully extubated and was half hour before arrival. Patient is currently moving all extremities. Patient has been seen by Dr. Calix and right arm weakness has been old. Patient is currently moving all extremities with equal strength. P atient has been afebrile, heart rate 87, blood pressure 114/55, pulse ox 115/48, pulse ox 90% on 5 L nasal cannula. Repeat blood work reveals WBC 7.4, hemoglobin 7.5, platelet count 281. Sodium 141, potassium 3.4 has been replaced, chloride 109, CO2 29, BUN 23 and creatinine 0.92. Blood sugars running between 121 and 143. Repeat chest x-ray shows bilateral lower lobe infiltrate and small effusion. Findings similar to prior exam. Underlying venous congestion not excluded. Patient is continued on Zosyn and Zyvox as well as scheduled nebulizer treatments. Cultures from bronchial alveolar lavage is showing no growth. Cytology report is negative for malignant cells. environmental monitoring technician has been in normal sinus rhythm. 01/26: Patient remains in intensive care unit. She was extubated yesterday however she is now on a BiPAP machine and has progressively declined throughout the night and into this morning. Patient was given 60 mg of Lasix with no additional output. Urinary output has continued to decline throughout the night. Patient does not respond to verbal stimuli. Does open eyes with painful stimuli. WC 10.8, hemoglobin 8.3, potassium 4.6, BUN 24, creatinine 1.19. ABG: PH 7.4, POC 229, pO2 140, HCO3 10. Patient's prognosis is guarded. She is no CPR, patient may be reintubated once assessed by pulmonary. 01/27: Dr. Samano discussed with the daughter options related to decline. Daughter requested patient to be reintubated and to reevaluate. After follow-up labs and x-ray. Daughter decided to transition to comfort care. Patient was transitioned to comfort care at 0500. At that time patient was extubated and prior to rounding this morning. Please see nurse's documentation related to time of . Discharge diagnosis: 1. Acute hypoxic respiratory failure secondary to acute on chronic systolic heart failure with bilateral pleural effusions, POA with severe hypotension requiring vasopressors. 2. Acute non-ST elevated myocardial infarction. 3. History of coronary artery disease status post PCI of the left main in March 2019. 4. Ischemic cardiomyopathy. 5. Hypertension. 6. Hyperlipidemia. 7. Diabetes mellitus type 2. 8. Alzheimer's dementia. 9. Acute kidney injury with chronic kidney disease stage II. 10. Recurrent depression. 11. Valvular heart disease with moderate to severe aortic stenosis and severe mitral regurgitation, mild tricuspid regurgitation. 12. Anemia with history of acute blood loss GI bleed anemia 13. Pressure ulcers: Coccyx stage III present on admission as stage III showing improvement, 14. Right upper extremity weakness with chronic right shoulder weakness. Discharge disposition: Impression and plan of care have been directed as dictated by the signing physician. Netta Owens nurse practitioner acting as scribe for signing physician. Patient Condition at Discharge: Poor Plan - Discharge Summary Discharge Rx Participant: No New Discharge Prescriptions: No Action Aspirin [Adult Low Dose Aspirin EC] 81 mg PO DAILY Galantamine [Razadyne] 4 mg PO AC-BID Escitalopram [Lexapro] 10 mg PO DAILY Ondansetron [Zofran] 4 mg PO Q8HR PRN PRN Reason: Nausea Linagliptin [Tradjenta] 5 mg PO DAILY Ergocalciferol [Vitamin D2 (DRISDOL)] 50,000 unit PO Q14D Furosemide [Lasix] 20 mg PO BID Clopidogrel [Plavix] 75 mg PO DAILY tab Celecoxib [CeleBREX] 200 mg PO DAILY PRN PRN Reason: Pain Repaglinide [Prandin] 0.5 mg PO BID Nitroglycerin Sl Tabs [Nitrostat] 0.4 mg SUBLINGUAL Q5M PRN PRN Reason: Chest Pain Metoprolol Tartrate [Lopressor] 50 mg PO Q8H Isosorbide Mononitrate ER [Imdur] 30 mg PO DAILY hydrALAZINE HCL [Apresoline] 100 mg PO TID Atorvastatin [Lipitor] 10 mg PO DAILY amLODIPine [Norvasc] 10 mg PO DAILY Acetaminophen-Codeine 300-30mg [Tylenol w/codeine #3] 1 tab PO BID PRN PRN Reason: Pain Famotidine [Pepcid] 20 mg PO DAILY Discharge Medication List Aspirin [Adult Low Dose Aspirin EC] 81 mg PO DAILY 11/21/17 [History] Galantamine [Razadyne] 4 mg PO AC-BID 01/02/18 [History] Escitalopram [Lexapro] 10 mg PO DAILY 12/20/18 [History] Ondansetron [Zofran] 4 mg PO Q8HR PRN 01/13/19 [History] Linagliptin [Tradjenta] 5 mg PO DAILY 03/09/19 [History] Ergocalciferol [Vitamin D2 (DRISDOL)] 50,000 unit PO Q14D 10/07/19 [History] Furosemide [Lasix] 20 mg PO BID 10/07/19 [History] Clopidogrel [Plavix] 75 mg PO DAILY tab 10/12/19 [Rx] Celecoxib [CeleBREX] 200 mg PO DAILY PRN 10/21/19 [History] Acetaminophen-Codeine 300-30mg [Tylenol w/codeine #3] 1 tab PO BID PRN 01/21/20 [History] Atorvastatin [Lipitor] 10 mg PO DAILY 01/21/20 [History] Famotidine [Pepcid] 20 mg PO DAILY 01/21/20 [History] Isosorbide Mononitrate ER [Imdur] 30 mg PO DAILY 01/21/20 [History] Metoprolol Tartrate [Lopressor] 50 mg PO Q8H 01/21/20 [History] Nitroglycerin Sl Tabs [Nitrostat] 0.4 mg SUBLINGUAL Q5M PRN 01/21/20 [History] Repaglinide [Prandin] 0.5 mg PO BID 01/21/20 [History] amLODIPine [Norvasc] 10 mg PO DAILY 01/21/20 [History] hydrALAZINE HCL [Apresoline] 100 mg PO TID 01/21/20 [History] Follow up Appointment(s)/Referral(s): Yee Sales MD [Primary Care Provider] - 1 Week
[2020-01-31 07:40] LABS: ABG HCO3 4 mmol/L (21-25); ABG PH <6.80 (7.35-7.45)
--- NOTE | 2020-02-01 13:10 | CDI ---
Documentation Clarification Form Date: 02/01/2020 12:27:10 PM From: Isaura Walsh RN, CCDS Email: [email or web address] Admit Date: 01/21/2020 04:57:00 AM Patient Name: Tracy Mcclain Visit Number: [id number] Discharge Date: 01/28/2020 05:38:00 AM ATTENTION: The Clinical Documentation Specialists (CDI) and [facility] Coding Staff appreciate your assistance in clarifying documentation. Please respond to the clarification below the line at the bottom and electronically sign. The CDI & [facility] Coding staff will review the response and follow-up if needed. Please note: Queries are made part of the Legal Health Record. If you have any questions, please contact the author of this message via ITS. Dr. Yee Sales CHINESE LANGUAGE PROFESSOR 01/22 progress note indicates: Patient remains in intensive care unit intubated and on mechanical ventilation. Patient had a very rough night with a drop in her temperature, drop in her blood pressure and pulse ox. She was placed on 100% oxygen and Levophed was increased to 20 mics. Patient history/risk factors: 01/20 H&P indicates history of chronic systolic heart failure and ischemic cardiomyopathy with known ejection fraction 35-40%, severe mitral regurgitation, moderate aortic stenosis. She was utilizing 1-1-1/2 L of oxygen at home and normally pulse oxing 90-96%. Daughter gradually increased this until she was up to 5 L of oxygen yesterday and then called EMS. Hypertension. 01/22 Cardiology PN indicates an aspiration pneumonia cannot be excluded. 01/20 Cardiology PN indicates "Acute on chronic systolic heart failure, Elevated troponin, likely related to type II myocardial ischemia due to supply demand mismatch. Clinical Indicators: Acute Respiratory Failure, intubated on ventilator, 01/20 CXR showed CHF and Pulmonary Edema, 01/22 CXR showed Pneumonia with effusions. 01/[address] showed fluid overload, underlying infiltrates not excluded particularly in the left lung. 01/[address] Johns indicates "Acute kidney injury which had resolved from cardiorenal syndrome with creatinine coming down to 1 but deteriorated overnight and looks like she may be septic with severe acidosis with a pH of 7.1 and a pCO2 of 29. She had to be reintubated. Significant metabolic acidosis with a pH of 7.1 suggestive of Sepsis." Lactic acid 20.3 on 01/26 Vitals: tachycardic - HR high of 134 on 01/26, BP hypotensive - BP low of 76/28 on 01/26, Temp high of 100F on 01/26 Treatment: Intubated, Ventilator support, IV Zosyn 3.375 gm @25ml/hr, IV Levophed, IV Sodium Bicarbonate, IVF's 0.9 NS 500ml bolus on 01/21, 1l bolus on 01/26 along with 0.9 NS @ 75 ml/hr, Midodrine 10mg TID In your professional opinion, can you please specify if the above is clinically significant for: Septic Shock Suspected or known causative organism____xx suspected mrsa vx HAP Any associated organ failure xx cardiorenal syndrome Cardiogenic Shock Cause Hypovolemic Shock Cause Other, please specify Unable to determine MTDD
== END 2020-01-28 05:38 | disposition expired ==
LOC: EC 00:12 → 3SCARD 04:57 → 2SICU 20:15
PROVIDERS: ADMIT Family Medicine; ATTEND Family Medicine
PROC: 0BH17EZ Insertion of Endotracheal Airway into Trachea, Via Natural or Artificial Opening (ICD-10-PCS; principal; 2020-01-21)
PROC: 5A1955Z Respiratory Ventilation, Greater than 96 Consecutive Hours (ICD-10-PCS; 2020-01-21)
PROC: 5A09357 Assistance with Respiratory Ventilation, Less than 24 Consecutive Hours, Continuous Positive Airway Pressure (ICD-10-PCS; 2020-01-21)
PROC: 03HY32Z Insertion of Monitoring Device into Upper Artery, Percutaneous Approach (ICD-10-PCS; 2020-01-22)
PROC: 4A133B1 Monitoring of Arterial Pressure, Peripheral, Percutaneous Approach (ICD-10-PCS; 2020-01-22)
PROC: 4A133J1 Monitoring of Arterial Pulse, Peripheral, Percutaneous Approach (ICD-10-PCS; 2020-01-22)
PROC: 3E0G76Z Introduction of Nutritional Substance into Upper GI, Via Natural or Artificial Opening (ICD-10-PCS; 2020-01-22)
PROC: 0DH67UZ Insertion of Feeding Device into Stomach, Via Natural or Artificial Opening (ICD-10-PCS; 2020-01-22)
PROC: 02HV33Z Insertion of Infusion Device into Superior Vena Cava, Percutaneous Approach (ICD-10-PCS; 2020-01-22)
PROC: 0B9G8ZX Drainage of Left Upper Lung Lobe, Via Natural or Artificial Opening Endoscopic, Diagnostic (ICD-10-PCS; 2020-01-23)
PROC: 0BH17EZ Insertion of Endotracheal Airway into Trachea, Via Natural or Artificial Opening (ICD-10-PCS; 2020-01-27)
DX: I13.0 Hypertensive heart and chronic kidney disease with heart failure and stage 1 through stage 4 chronic kidney disease, or unspecified chronic kidney disease (principal); L89.153 Pressure ulcer of sacral region, stage 3; I21.4 Non-ST elevation (NSTEMI) myocardial infarction; I50.23 Acute on chronic systolic (congestive) heart failure; J96.01 Acute respiratory failure with hypoxia; N17.0 Acute kidney failure with tubular necrosis; G93.41 Metabolic encephalopathy; J69.0 Pneumonitis due to inhalation of food and vomit; A41.02 Sepsis due to Methicillin resistant Staphylococcus aureus; R65.21 Severe sepsis with septic shock; E87.2 Acidosis; F33.9 Major depressive disorder, recurrent, unspecified; J98.11 Atelectasis; Z51.5 Encounter for palliative care; Z66 Do not resuscitate; L89.611 Pressure ulcer of right heel, stage 1; L89.626 Pressure-induced deep tissue damage of left heel; D63.1 Anemia in chronic kidney disease; F02.80 Dementia in other diseases classified elsewhere, unspecified severity, without behavioral disturbance, psychotic disturbance, mood disturbance, and anxiety; G30.9 Alzheimer's disease, unspecified; I95.9 Hypotension, unspecified; Z99.81 Dependence on supplemental oxygen; E11.42 Type 2 diabetes mellitus with diabetic polyneuropathy; F01.50 Vascular dementia, unspecified severity, without behavioral disturbance, psychotic disturbance, mood disturbance, and anxiety; N18.3 Chronic kidney disease, stage 3 (moderate); E11.22 Type 2 diabetes mellitus with diabetic chronic kidney disease; I25.10 Atherosclerotic heart disease of native coronary artery without angina pectoris; E78.5 Hyperlipidemia, unspecified; H35.30 Unspecified macular degeneration; K44.9 Diaphragmatic hernia without obstruction or gangrene; H54.3 Unqualified visual loss, both eyes; E66.9 Obesity, unspecified; I25.5 Ischemic cardiomyopathy; I08.3 Combined rheumatic disorders of mitral, aortic and tricuspid valves; R53.1 Weakness; F41.9 Anxiety disorder, unspecified; R13.10 Dysphagia, unspecified; R26.81 Unsteadiness on feet; E87.6 Hypokalemia; T50.1X5A Adverse effect of loop [high-ceiling] diuretics, initial encounter; I25.2 Old myocardial infarction; Z71.3 Dietary counseling and surveillance; Z68.29 Body mass index [BMI] 29.0-29.9, adult; Z79.82 Long term (current) use of aspirin; Z79.899 Other long term (current) drug therapy; Z79.84 Long term (current) use of oral hypoglycemic drugs; Z79.1 Long term (current) use of non-steroidal anti-inflammatories (NSAID); Z79.02 Long term (current) use of antithrombotics/antiplatelets; Z86.73 Personal history of transient ischemic attack (TIA), and cerebral infarction without residual deficits; Z87.19 Personal history of other diseases of the digestive system; Z90.49 Acquired absence of other specified parts of digestive tract; Z95.5 Presence of coronary angioplasty implant and graft; Z86.19 Personal history of other infectious and parasitic diseases; Z86.69 Personal history of other diseases of the nervous system and sense organs; Z98.890 Other specified postprocedural states; Z87.891 Personal history of nicotine dependence; Z88.6 Allergy status to analgesic agent; Z88.5 Allergy status to narcotic agent; Z88.8 Allergy status to other drugs, medicaments and biological substances; Z83.3 Family history of diabetes mellitus; Z82.49 Family history of ischemic heart disease and other diseases of the circulatory system; Z83.518 Family history of other specified eye disorder; Z84.1 Family history of disorders of kidney and ureter
CPT/HCPCS: 31624; 36415; 36600; 71045; 71250; 80048; 80053; 81001; 82533; 82728; 82747; 82805; 83540; 83550; 83605; 83735; 83880; 84132; 84145; 84443; 84484; 85025; 85027; 85045; 85610; 85730; 87040; 87070; 87086; 87102; 87116; 87205; 87206; 87252; 87496; 87498; 87502; 87529; 87634; 87798; 88108; 88305; 89050; 93005; 93306; 94002; 94003; 94640; 94660; 96374; 96375; 99285